=== PATIENT | male | born 1945 | race Caucasian/White ===

== ENCOUNTER 2016-07-12 13:52 | Inpatient (IN) | payer OTHER ==
--- NOTE | 2016-07-12 14:53 | PDOC ---
History of Present Illness - General History Source: Patient Exam Limitations: No Limitations - History of Present Illness Initial Comments: 07/12/16 16:00 The patient is a 71 year old male, with a significant past medical history of CAD, Coarse AFIB, chronic ischemic heart disease, cardiomyopathy, fatty liver, COPD (emphysema), diabetes and HLD, who presents to the emergency department with shortness of breath. He states that his shortness of breath does not feel like his past COPD exacerbations. He also reports that he has noticed bilateral lower extremity swelling and has not taken his Lasix today The patient denies chest pain, headache and dizziness. Denies fever, chills, nausea, vomit, diarrhea and constipation. Denies dysuria, frequency, urgency and hematuria. Allergies: None Past surgical history: bilateral knee surgery, right knee 1974, left knee 1979 Social history: Former smoker <Jean-Claude Carr - Last Filed: 07/12/16 16:59> <Daphne Briceño - Last Filed: 07/13/16 09:04> - General Chief Complaint: Shortness of Breath Stated Complaint: SOB Time Seen by Provider: 07/12/16 14:25 Past History <Jean-Claude Carr - Last Filed: 07/12/16 16:59> - Past Medical History Anemia: No Cardiac Disorders: Yes (CAD, COARSE A.FIBRILATION, CHRONIC ISCHEMIC HEART DISEASE, CARDIOMYOPATHY) COPD: Yes (EMPHYSEMA) Diabetes: Yes (IDDM) Hypercholesterolemia: Yes Liver Disease: Yes (FATTY LIVER) Suicide Attempt (Hx): No - Surgical History Orthopedic Surgery: Yes (bilateral knee surgery 1974 left knee 1979) - Family Disease History Family Disease History: Heart Disease: Father - Immunization History Immunization Up to Date: Yes - Psycho/Social/Smoking Cessation Hx Anxiety: No Suicidal Ideation: No Smoking Status: Yes (QUIT 2011) Smoking History: Former smoker Have you smoked in the past 12 months: No Number of Cigarettes Smoked Daily: 0 If you are a former smoker, when did you quit?: 6 years ago Cigars Per Day: 0 Information on smoking cessation initiated: No Hx Alcohol Use: No Drug/Substance Use Hx: No Substance Use Type: None Hx Substance Use Treatment: No <Daphne Briceño - Last Filed: 07/13/16 09:04> - Past Medical History Allergies/Adverse Reactions: Allergies Allergy/AdvReac Type Severity Reaction Status Date / Time No Known Allergies Allergy Verified 07/12/16 14:04 Home Medications: Ambulatory Orders Atorvastatin Ca [Lipitor] 10 mg PO HS tablet 08/23/15 Gabapentin [Neurontin -] 100 mg PO BID capsule 08/23/15 Insulin Detemir [Levemir Flextouch] 23 unit SQ BID 11/26/15 Tamsulosin HCl 0.4 mg PO DAILY 12/11/15 Apixaban [Eliquis] 5 mg PO BID 02/28/16 Albuterol 0.083% Nebulizer Cielo [Ventolin 0.083% Nebulizer Soln -] 1 amp NEB PRN 06/25/16 Levalbuterol Tartrate [Xopenex Hfa] 2 puff IH PRN 06/25/16 Budesonide/Formeterol Fumarate [SYMBICORT 160/4.5mcg -] 2 puff IH BID inhaler 06/30/16 Furosemide [Lasix] 40 mg PO BID #60 tablet 06/30/16 Prednisone [Deltasone -] 10 mg PO DAILY #5 tablet 06/30/16 Verapamil HCl ER [Calan Sr -] 360 mg PO DAILY tablet.er 06/30/16 Review of Systems - Review of Systems Able to Perform ROS?: Yes Comments:: 07/12/16 15:59 GENERAL/CONSTITUTIONAL: No fever or chills. No weakness. HEAD, EYES, EARS, NOSE AND THROAT: No change in vision. No ear pain or discharge. No sore throat. CARDIOVASCULAR: +Shortness of breath. No chest pain RESPIRATORY: No cough, wheezing, or hemoptysis. GASTROINTESTINAL: No nausea, vomiting, diarrhea or constipation. GENITOURINARY: No dysuria, frequency, or change in urination. EXTREMITIES: +Bilateral lower extremity swelling MUSCULOSKELETAL: No joint or muscle swelling or pain. No neck or back pain. SKIN: No rash NEUROLOGIC: No headache, vertigo, loss of consciousness, or change in strength/ sensation. ENDOCRINE: No increased thirst. No abnormal weight change HEMATOLOGIC/LYMPHATIC: No anemia, easy bleeding, or history of blood clots. ALLERGIC/IMMUNOLOGIC: No hives or skin allergy. <Jean-Claude Carr - Last Filed: 07/12/16 16:59> *Physical Exam - Vital Signs Last Vital Signs Temp Pulse Resp BP Pulse Ox 97.7 F 84 22 129/84 96 07/12/16 14:01 07/12/16 14:01 07/12/16 14:01 07/12/16 14:01 07/12/16 14:01 <Jean-Claude Carr - Last Filed: 07/12/16 16:59> - Vital Signs Last Vital Signs Temp Pulse Resp BP Pulse Ox 97.7 F 84 22 129/84 96 07/12/16 14:01 07/12/16 14:01 07/12/16 14:01 07/12/16 14:01 07/12/16 14:01 - Physical Exam Comments: GENERAL: Awake, alert, and fully oriented, in no acute distress HEAD: No signs of trauma EYES: PERRLA, EOMI, sclera anicteric, conjunctiva clear ENT: Auricles normal inspection, hearing grossly normal, nares patent, oropharynx clear without exudates. Moist mucosa NECK: Normal ROM, supple, no lymphadenopathy, JVD, or masses LUNGS: Good air entry B/L, with clear breath sounds. No wheezes, and no crackles HEART: Regular rate and rhythm, normal S1 and S2, no murmurs, rubs or gallops ABDOMEN: Soft, nontender, normoactive bowel sounds. No guarding, no rebound. No masses EXTREMITIES: Normal range of motion, 3+ pitting edema BLE. No clubbing or cyanosis. No cords, erythema. NEUROLOGICAL: Cranial nerves II through XII grossly intact. Normal speech, normal gait. SKIN: Warm, Dry, normal turgor, no rashes or lesions noted. <Daphne Briceño - Last Filed: 07/13/16 09:04> Heart Score/ECG Review - ECG Impressions Comment:: EKG read 14:09- afib with RVR, ventricular rate 103 <Daphne Briceño - Last Filed: 07/13/16 09:04> ED Treatment Course - LABORATORY CBC & Chemistry Diagram: 07/12/16 15:25 07/12/16 15:53 - ADDITIONAL ORDERS Additional order review: Laboratory Results 07/12/16 15:25 Sodium Cancelled Potassium Cancelled Chloride Cancelled Carbon Dioxide Cancelled Anion Gap Cancelled BUN Cancelled Creatinine Cancelled Creat Clearance w eGFR Cancelled Random Glucose Cancelled Calcium Cancelled Total Bilirubin Cancelled AST Cancelled ALT Cancelled Alkaline Phosphatase Cancelled Creatine Kinase Cancelled Troponin I Cancelled B-Natriuretic Peptide Cancelled Total Protein Cancelled Albumin Cancelled 07/12/16 15:25 RBC 4.84 MCV 90.9 MCHC 31.9 L RDW 14.7 MPV 8.8 Neutrophils % 92.1 H D Lymphocytes % 4.6 L D Monocytes % 2.8 L Eosinophils % 0.1 D Basophils % 0.4 <Jean-Claude Carr - Last Filed: 07/12/16 16:59> - LABORATORY CBC & Chemistry Diagram: 07/13/16 05:35 07/13/16 05:35 <Daphne Briceño - Last Filed: 07/13/16 09:04> Medical Decision Making - Medical Decision Making 07/12/16 16:49 Dr. Brothers was called regarding the patient at 4:49pm Dr. Brothers was consulted regarding the patient at 4:52pm [phone] <Jean-Claude Carr - Last Filed: 07/12/16 16:59> *DC/Admit/Observation/Transfer - Attestations Scribe Attestion: 07/12/16 15:59 Documentation prepared by Jean-Claude Carr, acting as medical collections specialist for Daphne Briceño MD. <Jean-Claude Carr - Last Filed: 07/12/16 16:59> - Discharge Dispostion Admit: Yes <Daphne Briceño - Last Filed: 07/13/16 09:04> Diagnosis at time of Disposition: COPD (chronic obstructive pulmonary disease) Qualifiers: COPD type: unspecified COPD Qualified Code(s): J44.9 - Chronic obstructive pulmonary disease, unspecified Acute CHF Qualifiers: Congestive heart failure type: unspecified congestive heart failure type Qualified Code(s): I50.9 - Heart failure, unspecified Atrial fibrillation Qualifiers: Atrial fibrillation type: unspecified Qualified Code(s): I48.91 - Unspecified atrial fibrillation - Discharge Dispostion Condition at time of disposition: Stable - Referrals
[2016-07-12 15:32] LABS: BASOPHIL 0.4 % (0-2.0); EOSINOPHIL 0.1 % (0-4.5); MCHC 31.9 g/dl (32.0-35.9); MEAN CELL VOLUME 90.9 fl (80-96); MEAN PLT VOLUME 8.8 fl (7.5-11.1); NEUTROPHILS 92.1 % (42.8-82.8); PLATELET COUNT 278 K/MM3 (134-434); RDW 14.7 % (11.9-15.9); WHITE BLOOD COUNT 14.8 K/mm3 (4.0-10.0)
[2016-07-12] MEDS: ALBUTEROL SO4 2.5/IPRATROPIUM 0.5 INH SOL 3 ML VIAL.NEB. NEB SCH ×4 (15:45→16:30)
[2016-07-12 16:28] LABS: ALBUMIN 3.7 g/dl (3.4-5.0); ANION GAP 8 (8-16); BILIRUBIN,TOTAL 0.3 mg/dL (0.2-1.0); CALCIUM 9.6 mg/dL (8.5-10.1); CO2 29 mmol/L (21-32); CREATININE 1.1 mg/dL (0.7-1.3); GLUCOSE,RANDOM 195 mg/dL (74-106); SGOT/AST 15 U/L (15-37); SGPT/ALT 27 U/L (12-78); TOT PROT 6.9 g/dl (6.4-8.2)
[2016-07-12 16:30] LABS: ALK PHOS 90 U/L (45-117); TROPONIN I < 0.02 ng/ml (0.00-0.05)
[2016-07-12] MEDS ORDERED: methylPREDNISolone NA SUCC 125 MG/2 ML VIAL IVPB ONE (16:50)
[2016-07-12] MEDS ORDERED: FUROSEMIDE 40 MG/4 ML INJECTABLE VIAL IVPUSH ONE (16:57)
[2016-07-12] MEDS ORDERED: methylPREDNISolone NA SUCC 125 MG/2 ML VIAL ONE (16:57)
[2016-07-12] MEDS ORDERED: dilTIAZem HCL 50 MG/10 ML - 10 ML VIAL IVPUSH ONE (16:57)
[2016-07-12] MEDS ORDERED: FUROSEMIDE 40 MG/4 ML INJECTABLE VIAL ONE (17:29)
[2016-07-12] MEDS ORDERED: dilTIAZem HCL 125 MG/25 ML - 25 ML VIAL ONE (17:29)
[2016-07-12] MEDS: BUDESONIDE/FORMETEROL FUMARATE 160/4.5 mcg INHALER IH SCH (21:59)
[2016-07-12] MEDS: APIXABAN 5 MG TABLET PO SCH (21:59)
[2016-07-12] MEDS: INSULIN SLIDING SCALE (NOVOLOG) 1 VIAL SQ SCH (22:00)
[2016-07-12] MEDS: ATORVASTATIN CA 10 MG TABLET (FP) PO SCH (22:00)
[2016-07-12] MEDS: GABAPENTIN 100 MG CAPSULE (FP) PO SCH (22:00)
[2016-07-12] MEDS: methylPREDNISolone NA SUCC 125 MG/2 ML VIAL IVPB SCH (22:03)
[2016-07-13 00:05] VITALS: BMI 48.2
[2016-07-13] MEDS: INSULIN DETEMIR 100 UNITS/ML MDV SQ SCH ×2 (06:22→17:00)
[2016-07-13] MEDS: methylPREDNISolone NA SUCC 125 MG/2 ML VIAL IVPB SCH (06:22)
[2016-07-13] MEDS: INSULIN SLIDING SCALE (NOVOLOG) 1 VIAL SQ SCH ×4 (06:22→21:49)
[2016-07-13] MEDS: GABAPENTIN 100 MG CAPSULE (FP) PO SCH ×3 (06:22→21:47)
[2016-07-13 07:29] LABS: MCH 30.2 pg (25.7-33.7); MCHC 32.8 g/dl (32.0-35.9); MEAN PLT VOLUME 9.1 fl (7.5-11.1); PLATELET COUNT 241 K/MM3 (134-434); RDW 14.4 % (11.9-15.9); WHITE BLOOD COUNT 15.3 K/mm3 (4.0-10.0)
[2016-07-13 08:41] LABS: ALBUMIN 3.4 g/dl (3.4-5.0); ANION GAP 9 (8-16); BILIRUBIN,TOTAL 0.3 mg/dL (0.2-1.0); CO2 28 mmol/L (21-32); GLUCOSE,RANDOM 209 mg/dL (74-106); SGOT/AST 9 U/L (15-37); SGPT/ALT 24 U/L (12-78); TOT PROT 6.3 g/dl (6.4-8.2)
[2016-07-13 08:42] LABS: ALK PHOS 85 U/L (45-117); CALCIUM 9.4 mg/dL (8.5-10.1)
--- NOTE | 2016-07-13 09:48 | EKG ---
Test Reason : Blood Pressure : / mmHG Vent. Rate : 103 BPM Atrial Rate : 111 BPM P-R Int : 000 ms QRS Dur : 092 ms QT Int : 326 ms P-R-T Axes : 000 068 061 degrees QTc Int : 427 ms ATRIAL FIBRILLATION WITH RAPID VENTRICULAR RESPONSE POSSIBLE ANTERIOR INFARCT , AGE UNDETERMINED ABNORMAL ECG WHEN COMPARED WITH ECG OF 25-JUN-2016 16:56, NO SIGNIFICANT CHANGE WAS FOUND Confirmed by DIA CALIXTO MD ([id number]) on 07/13/2016 9:48:08 AM Referred By: Overread By: DIA CALIXTO MD
[2016-07-13] MEDS ORDERED: FUROSEMIDE 40 MG/4 ML INJECTABLE VIAL IVPB SCH (10:00)
[2016-07-13] MEDS ORDERED: PT OWN MED DRAWER 7, Y5N ONE (12:04)
[2016-07-13] MEDS: BUDESONIDE/FORMETEROL FUMARATE 160/4.5 mcg INHALER IH SCH ×2 (12:07→21:51)
[2016-07-13] MEDS: TAMSULOSIN HCL 0.4 MG CAP.ER.24H (FP) PO SCH (12:07)
[2016-07-13] MEDS: APIXABAN 5 MG TABLET PO SCH ×2 (12:07→21:47)
--- NOTE | 2016-07-13 12:20 | PN ---
Progress Note (short form) - Note Progress Note: PULMONARY CONSULTATION DICTATED 07/13/16 IMP ACUTE ON CHRONIC HYPOXEMIC RESPIRATORY FAILURE DECOMPENSATED CHF COPD ON O2 AFIB DM LUCY HTN PLAN IV LASIX INHALED BRONCHODILATORS STEROID TAPED DAILY WTS F/U CHEST X-RAY BIPAP AT NIGHT AND PRN MONITOR BLOOD SUGARS DR STACK Problem List - Problems (1) Acute CHF Code(s): I50.9 - HEART FAILURE, UNSPECIFIED Qualifiers: Congestive heart failure type: unspecified congestive heart failure type Qualified Code(s): I50.9 - Heart failure, unspecified (2) Atrial fibrillation Code(s): I48.91 - UNSPECIFIED ATRIAL FIBRILLATION Qualifiers: Atrial fibrillation type: unspecified Qualified Code(s): I48.91 - Unspecified atrial fibrillation (3) COPD (chronic obstructive pulmonary disease) Code(s): J44.9 - CHRONIC OBSTRUCTIVE PULMONARY DISEASE, UNSPECIFIED Qualifiers : COPD type: unspecified COPD Qualified Code(s): J44.9 - Chronic obstructive pulmonary disease, unspecified (4) Diabetes mellitus Code(s): E11.9 - TYPE 2 DIABETES MELLITUS WITHOUT COMPLICATIONS (5) Acute exacerbation of chronic obstructive pulmonary disease (COPD) Code(s): J44.1 - CHRONIC OBSTRUCTIVE PULMONARY DISEASE W (ACUTE) EXACERBATION (6) Dyspnea Code(s): R06.00 - DYSPNEA, UNSPECIFIED Qualifiers: (7) Edema Code(s): R60.9 - EDEMA, UNSPECIFIED (8) HTN (hypertension) Code(s): I10 - ESSENTIAL (PRIMARY) HYPERTENSION (9) Hypoxemia Code(s): R09.02 - HYPOXEMIA (10) Morbid obesity Code(s): E66.01 - MORBID (SEVERE) OBESITY DUE TO EXCESS CALORIES (11) Obstructive sleep apnea Code(s): G47.33 - OBSTRUCTIVE SLEEP APNEA (ADULT) (PEDIATRIC) (12) Acute on chronic respiratory failure with hypoxemia Code(s): J96.21 - ACUTE AND CHRONIC RESPIRATORY FAILURE WITH HYPOXIA
--- NOTE | 2016-07-13 12:34 | PN ---
Progress Note (short form) - Note Progress Note: CC: SOB 71 yo male with h/o AFib s/p prior DCCV 12/2015 to SR on AC, HTN, HL, morbid obesity, NATHANIEL on bipap, severe COPD, here with sob. Diuresed with lasix 80 mg IV BID on last admission then transitioned to torsemide 40 mg daily. D/c meds do not include diuretics, but patient states he was taking furosemide not torsemide 40 mg at home. D/c weight 339 lbs. Now with worsening sob/oliveira, LE edema. Is now requiring bipap/neb/o2 with minimal ambulation. + progressive LE edema, abdominal distension. + progressive weight gain. + chronic orthopnea. Here, has received steroids and 40 mg IV lasix. no cp, palps, dizziness, claudication, bleeding or transient neurologic symptoms No f/c/s, n/v/d, h/a, rashes, no congestion, myalgias. + cough, PMH:per hpi past surg hx: Tonsillectomy Social hx: Former smoker fam hx: father with CVA ros: per hpi Ambulatory Orders Atorvastatin Ca [Lipitor] 10 mg PO HS tablet 08/23/15 Gabapentin [Neurontin -] 100 mg PO BID capsule 08/23/15 Insulin Detemir [Levemir Flextouch] 23 unit SQ BID 11/26/15 Tamsulosin HCl 0.4 mg PO DAILY 12/11/15 Apixaban [Eliquis] 5 mg PO BID 02/28/16 Albuterol 0.083% Nebulizer Cielo [Ventolin 0.083% Nebulizer Soln -] 1 amp NEB PRN 06/25/16 Levalbuterol Tartrate [Xopenex Hfa] 2 puff IH PRN 06/25/16 Budesonide/Formeterol Fumarate [SYMBICORT 160/4.5mcg -] 2 puff IH BID inhaler 06/30/16 Furosemide [Lasix] 40 mg PO BID #60 tablet 06/30/16 Prednisone [Deltasone -] 10 mg PO DAILY #5 tablet 06/30/16 Verapamil HCl ER [Calan Sr -] 360 mg PO DAILY tablet.er 06/30/16 Current Medications Acetaminophen (Tylenol -) 650 mg PO Q6H PRN PRN Reason: FEVER OR PAIN Apixaban (Eliquis -) 5 mg PO BID [facility] Last Admin: 07/13/16 12:07 Dose: 5 mg Atorvastatin Calcium (Lipitor -) 10 mg PO HS [facility] Last Admin: 07/12/16 22:00 Dose: 10 mg Budesonide/Formoterol Fumarate (Symbicort 160/4.5mcg -) 2 puff IH BID [facility] Last Admin: 07/13/16 12:07 Dose: 2 puff Furosemide (Lasix Injection -) 40 mg IVPB DAILY [facility] Last Admin: 07/13/16 12:07 Dose: 40 mg Gabapentin (Neurontin -) 100 mg PO TID [facility] Last Admin: 07/13/16 06:22 Dose: 100 mg Insulin Aspart (Novolog Vial Sliding Scale -) 1 vial SQ [facility] PRN Reason: Protocol Last Admin: 07/13/16 12:07 Dose: 4 units Insulin Detemir (Levemir Vial) 23 units SQ BIDI [facility] Last Admin: 07/13/16 06:22 Dose: 23 units Methylprednisolone Sodium Succinate (Solu-Medrol -) 40 mg IVPB TID [facility] Tamsulosin HCl (Flomax -) 0.4 mg PO DAILY@0830 [facility] Last Admin: 07/13/16 12:07 Dose: 0.4 mg Verapamil HCl (Calan Sr -) 360 mg PO DAILY [facility] Vital Signs - 24 hr 07/12/16 07/12/16 07/12/16 14:01 18:00 19:26 Temperature 97.7 F Pulse Rate 84 Pulse Rate [ 88 85 Right Radial] Respiratory 22 18 18 Rate Blood Pressure 129/84 Blood Pressure 127/82 123/74 [Left Arm] O2 Sat by Pulse 96 95 100 Oximetry (%) 07/12/16 07/13/16 07/13/16 23:00 00:09 02:25 Temperature 97.5 F L 97.8 F Pulse Rate 98 H 98 H Pulse Rate [ Right Radial] Respiratory 20 21 Rate Blood Pressure 132/75 105/71 Blood Pressure [Left Arm] O2 Sat by Pulse 96 97 Oximetry (%) 07/13/16 07/13/16 06:00 09:55 Temperature Pulse Rate 94 H 89 Pulse Rate [ Right Radial] Respiratory 20 Rate Blood Pressure 115/64 Blood Pressure [Left Arm] O2 Sat by Pulse 94 L Oximetry (%) Intake & Output 07/11/16 07/12/16 07/13/16 07/14/16 07:59 07:59 07:59 07:59 Intake Total 50 Output Total 800 Balance -750 Weight 345 lb 6 oz NAD, calm JVD difficult to assess due to size, neck supple diminished BS, trace crackles/wheezes, nl effort Irregularly, irregular nl s1, s2 no m/r/g + bs soft obese nt nd ext with trace edema. no cyanosis or clubbing + dp/pt no jaundice, diaphoresis. CBC, BMP 07/13/16 05:35 07/13/16 05:35 Laboratory Tests 06/25/16 07/12/16 07/13/16 17:00 15:53 05:35 Troponin I < 0.02 B-Natriuretic Peptide 143.23 H 280.45 H Albumin 3.4 EKG: AFib, vr 103 bpm. No ischemic changes. tele: afib, VR 100's CXR: large heart, prominent central markings LIANNE 12/24 (at DCCV): low-nl LVEF (? due to afib); mild RV hypo; mild AI Echo 08/2015: tds, nl lv/rv, no sig valve path mibi 12/2012: small posterior ischemia vs artifact, nl lvef, no tid 10/2015 CT scan negative for PE 71 yo male with h/o AFib s/p prior DCCV 12/2015 to SR on AC, HTN, HL, PVCs with palpitations, morbid obesity, NATHANIEL on bipap, severe COPD, here with sob. sob, severe COPD on home O2: - Concern for contribution from acute diastolic or right heart failure exacerbation in setting of inappropriate outpatient diuresis (furosemide instead of torsemide and at lower dose). Prior d/c weights 318 lbs and then 337 lbs in Nov (was still volume up on discharge), most recently 339 lbs. Would increase diuretic dose to 80 mg IV BID. - daily standing weights, strict I/O, BMP -no signs of acs -copd/nathaniel tx per pmd/pulm - Consider repeat echo as outpatient once diuresed paroxysmal AF/flutter -new dx 2015--req'd amio for HR control (now off) and s/p successful DCCV 12/24 -cont eliquis for AC, verapamil for HR control. In past HR's have slowed and has reverted to SR once respiratory status stabilizes. hld: -continue statin htn: -stable on current meds. ?cad: -pt had borderline positive mibi in 2013 -never had angina sx's -CE's neg here x 1. EKG without ischemic changes. -continue medical management with statin, AC
--- NOTE | 2016-07-13 13:59 | CONS ---
DATE OF CONSULTATION: 07/13/2016 REFERRING PHYSICIAN: Ayla Brothers MD HISTORY: The patient is a 71-year-old male known to me from previous hospitalization who had office or follow up who has advanced COPD on home O2, cardiomyopathy, obstructive sleep apnea on BiPAP, atrial fibrillation, hypertension, hyperlipidemia, history of tonsillectomy, history of tobacco use quit. Patient is chronically steroid dependent. Pt recently hospitalized at [facility] secondary to decompensated congestive heart failure. Readmitted on July 12 with complaint of increasing shortness of breath, lower extremity edema. The patient states he was doing relatively well until yesterday. He woke up in the morning feeling okay. He said he started over the course of the day started noticed increasing lower extremity edema. Started developing chest tightness and shortness of breath. He denied any wheezing. He did have a dry, nonproductive cough. He presented to the emergency room with the above. In the ER he was felt to have possible CHF exacerbation as well as COPD. He was placed on Lasix and had bronchodilator and transferred to medical telemetry unit for further monitoring. He denies any nausea, vomiting, or diaphoresis. He denies any fever or chills. He denies hemoptysis. There is no history of DVT or pulmonary emboli in the past. He has a history of multiple hospitalizations secondary to decompensated CHF as well as COPD. PAST MEDICAL HISTORY: Includes ASHD, CHF, atrial fibrillation, cardiomyopathy, fatty liver, COPD advanced on home O2, diabetes, hyperlipidemia, and morbid obesity. PAST SURGICAL HISTORY: Includes bilateral knee surgery of right knee 1974 and left knee 1979. SOCIAL HISTORY: History of tobacco use. Quit a couple of years ago. No occupational exposures. REVIEW OF SYSTEMS: Positive orthopnea. Positive dyspnea. Positive chest tightness. Positive mild cough nonproductive cough. No chest pain, no palpitations, no fevers, no chills, no hemoptysis. Positive lower extremity edema. MEDICATIONS: Include Symbicort 160/4.5, Solu-Medrol 80 t.i.d., Flomax, Tylenol, Eliquis, Neurontin, Calan, Lipitor, Norvasc, Levemir, and Lasix. PHYSICAL EXAMINATION: General: The patient is a well-developed, well-nourished male awake and alert currently in no acute distress. Vital Signs: He is currently afebrile. Blood pressure is 115/64, respiratory rate is 20, O2 saturation 94% on 2 L. HEENT: Normocephalic and atraumatic. Neck: Supple. Heart: Irregularly irregular with normal S1, S2. Chest: A few bibasilar crackles. Abdomen: Soft. Bowel sounds positive. Extremities: Bilateral lower extremity edema left greater than right. LABORATORIES: WBC 15.3, hemoglobin 13.2, hematocrit 40.3, platelet count 241, 000, INR 1.33. Chemistries: BUN 22, creatinine 1. On the chest x-ray, there is cardiomegaly with mild pulmonary venous congestion. IMPRESSION: 1. Decompensated congestive heart failure. 2. Advanced chronic obstructive pulmonary disease with exacerbation. 3. Atrial fibrillation. 4. Cardiomyopathy. 5. Diabetes mellitus. 6. Hyperlipidemia. PLAN: IV Lasix, inhaled bronchodilators, supplemental O2, short course of steroids, daily weights, follow up chest x-ray, continue anticoagulation, glycemic monitor blood sugars. TIFFANY STACK M.D. [id number] MTDD
[2016-07-13] MEDS: VERAPAMIL HCL 120 MG E.R. TABLET PO SCH ×2 (15:00→21:51)
--- NOTE | 2016-07-13 15:56 | PN ---
Progress Note (short form) - Note Progress Note: ID Consult dictated Acute exacerbation COPD Leukocytosis likely steroid induced Possible tracheobronchitis Obtain BC Influenza screen Legionella/ pneumococcal ag Sputum c/s Empiric zithromax Corticosteroids/ bronchodilators
--- NOTE | 2016-07-13 16:02 | HP ---
Admitting History and Physical - Primary Care Physician PCP: Mars Brothers - Admission Chief Complaint: DYSPNEA History of Present Illness: ACUTE ON CHRONIC DECOMPENSATED CHF WITH ACUTE ON CHRONIC COPD History Source: Patient - Past Medical History Cardiovascular: Yes: AFIB, HTN, Hyperlipdemia Pulmonary: Yes: COPD, O2 Dependent, Sleep Apnea Endocrine: Yes: Other (MORBIDLY OBESE) - Past Surgical History Past Surgical History: Yes: Tonsillectomy - Smoking History Smoking history: Former smoker Have you smoked in the past 12 months: No Aproximately how many cigarettes per day: 0 If you are a former smoker, when did you quit?: 6 years ago - Alcohol/Substance Use Hx Alcohol Use: No - Social History History of Recent Travel: No Home Medications - Allergies Allergies/Adverse Reactions: Allergies Allergy/AdvReac Type Severity Reaction Status Date / Time No Known Allergies Allergy Verified 07/12/16 14:04 - Home Medications Home Medications: Ambulatory Orders Atorvastatin Ca [Lipitor] 10 mg PO HS tablet 08/23/15 Gabapentin [Neurontin -] 100 mg PO BID capsule 08/23/15 Insulin Detemir [Levemir Flextouch] 23 unit SQ BID 11/26/15 Tamsulosin HCl 0.4 mg PO DAILY 12/11/15 Apixaban [Eliquis] 5 mg PO BID 02/28/16 Albuterol 0.083% Nebulizer Cielo [Ventolin 0.083% Nebulizer Soln -] 1 amp NEB PRN 06/25/16 Levalbuterol Tartrate [Xopenex Hfa] 2 puff IH PRN 06/25/16 Budesonide/Formeterol Fumarate [SYMBICORT 160/4.5mcg -] 2 puff IH BID inhaler 06/30/16 Furosemide [Lasix] 40 mg PO BID #60 tablet 06/30/16 Prednisone [Deltasone -] 10 mg PO DAILY #5 tablet 06/30/16 Verapamil HCl ER [Calan Sr -] 360 mg PO DAILY tablet.er 06/30/16 Review of Systems - Review of Systems Constitutional: reports: Weakness Eyes: reports: No Symptoms HENT: reports: No Symptoms Neck: reports: No Symptoms Cardiovascular: reports: Shortness of Breath Respiratory: reports: Orthopnea, Snoring, SOB, SOB on Exertion Gastrointestinal: reports: No Symptoms Genitourinary: reports: No Symptoms Musculoskeletal: reports: No Symptoms Integumentary: reports: No Symptoms Neurological: reports: No Symptoms Endocrine: reports: No Symptoms Hematology/Lymphatic: reports: No Symptoms Psychiatric: reports: No Symptoms Physical Examination Vital Signs: Vital Signs Temperature 97.8 F 07/13/16 02:25 Pulse Rate 89 07/13/16 09:55 Respiratory Rate 20 07/13/16 06:00 Blood Pressure 115/64 07/13/16 06:00 O2 Sat by Pulse Oximetry (%) 94 L 07/13/16 09:55 Constitutional: Yes: Moderate Distress Eyes: Yes: WNL HENT: Yes: WNL Neck: Yes: WNL Cardiovascular: Yes: Pulse Irregular Respiratory: Yes: On Venti-Mask, Poor Air Entry, Rales, SOB, SOB on Exertion Gastrointestinal: Yes: WNL Renal/: Yes: WNL Musculoskeletal: Yes: Muscle Weakness Edema: Yes Peripheral Pulses WNL: Yes Integumentary: Yes: WNL, Venous Stasis Changes Wound/Incision: Yes: Clean/Dry Neurological: Yes: WNL ...Motor Strength: WNL Psychiatric: Yes: WNL Labs: CBC, BMP 07/13/16 05:35 07/13/16 05:35 Imaging - Results Chest X-ray: Report Reviewed Problem List - Problems (1) Acute CHF Code(s): I50.9 - HEART FAILURE, UNSPECIFIED Qualifiers: Congestive heart failure type: unspecified congestive heart failure type Qualified Code(s): I50.9 - Heart failure, unspecified (2) Acute on chronic respiratory failure with hypoxemia Code(s): J96.21 - ACUTE AND CHRONIC RESPIRATORY FAILURE WITH HYPOXIA (3) Asthma Code(s): J45.909 - UNSPECIFIED ASTHMA, UNCOMPLICATED (4) Atrial fibrillation Code(s): I48.91 - UNSPECIFIED ATRIAL FIBRILLATION Qualifiers: Atrial fibrillation type: unspecified Qualified Code(s): I48.91 - Unspecified atrial fibrillation (5) COPD (chronic obstructive pulmonary disease) Code(s): J44.9 - CHRONIC OBSTRUCTIVE PULMONARY DISEASE, UNSPECIFIED Qualifiers : COPD type: unspecified COPD Qualified Code(s): J44.9 - Chronic obstructive pulmonary disease, unspecified (6) Diabetes mellitus Code(s): E11.9 - TYPE 2 DIABETES MELLITUS WITHOUT COMPLICATIONS (7) Morbid obesity Code(s): E66.01 - MORBID (SEVERE) OBESITY DUE TO EXCESS CALORIES (8) Obstructive sleep apnea Code(s): G47.33 - OBSTRUCTIVE SLEEP APNEA (ADULT) (PEDIATRIC) (9) Shortness of breath Code(s): R06.02 - SHORTNESS OF BREATH Assessment/Plan ACUTE ON CHRONIC CHF AND COPD IV LASIX, CARDIO EVAL O2 SUPPORT LABS AC PULM EVAL
[2016-07-13] MEDS ORDERED: AZITHROMYCIN IVPB 500 MG in DEXTROSE 5%-WATER - 250 ML IVPB SCH (16:15)
[2016-07-13] MEDS: FUROSEMIDE 40 MG/4 ML INJECTABLE VIAL IVPB SCH (17:00)
[2016-07-13] MEDS: methylPREDNISolone NA SUCC 40 MG/1 ML VIAL IVPB SCH ×2 (17:00→21:50)
--- NOTE | 2016-07-13 17:18 | CONS ---
DATE OF CONSULTATION: DATE OF DICTATION: 07/13/2016 The patient is a 71-year-old man, history of COPD with frequent exacerbations, now re-admitted with acute exacerbation of COPD. The patient was recently hospitalized at [facility] from June 25 through June 30 with an acute exacerbation. He now returns with increasing shortness of breath, cough productive of whitish sputum, and bilateral lower extremity edema. He was evaluated in the emergency room and he was admitted with a diagnosis of exacerbation of COPD. Chest x-ray was performed. No focal consolidation was identified. He was noted to have an elevated white blood cell count but no fever. The patient is chronically steroid dependent. He takes 20 mg of prednisone daily. He is also oxygen dependent. No recent antibiotic therapy. He denies any ill contacts. He did receive influenza and pneumococcal vaccines. No recent travel or significant pet exposure. Past medical history positive for COPD, oxygen and steroid dependent, coronary artery disease, atrial fibrillation, diabetes mellitus, hyperlipidemia, history of knee surgery. No known allergies. MEDICATIONS: Lipitor, Neurontin, insulin, albuterol, Symbicort, Lasix, verapamil. SOCIAL HISTORY: Former smoker. No history of alcohol abuse. SYSTEMS REVIEW: Neurologic: No loss of consciousness, seizure activity, focal weakness. Cardiac: Negative chest pain or palpitations. Respiratory: As per HPI. Gastrointestinal: Negative vomiting or diarrhea. Genitourinary: Negative for urinary tract infection. LABORATORY DATA: White count 15.3, 92 neutrophils, 4 lymphocytes, 2 monocytes. Hematocrit 44.0, platelet count 278. BUN 22, creatinine 1.0. Urine leukocyte esterase negative. PHYSICAL EXAMINATION: General: The patient is awake, alert. He is morbidly obese. Vital Signs: Temperature 97.7. Blood pressure 129/84. Pulse 84, regular. Respiration 22 per minute. Eyes: Sclerae anicteric. Heart Sounds: S1, S2. Lungs: Distant. No rhonchi, rales, or wheezing. Abdomen: Obese, soft, nontender. Extremities: Positive for edema. IMPRESSION: 1. Acute exacerbation of chronic obstructive pulmonary disease. 2. Leukocytosis, likely steroid induced. 3. Possible tracheobronchitis. Obtain blood cultures, influenza screen, urine Legionella antigen, and pneumococcal antigen, sputum culture, empiric Zithromax, corticosteroids, and bronchodilators. Will follow. Thank you for the kind referral. EVANS ARECHIGA M.D. [id number]
[2016-07-13] MEDS: ATORVASTATIN CA 10 MG TABLET (FP) PO SCH (21:47)
[2016-07-13] MEDS: AZITHROMYCIN IVPB 500 MG/250 ML D5W PRE-DOCKED IVPB SCH (21:51)
[2016-07-14] MEDS: INSULIN DETEMIR 100 UNITS/ML MDV SQ SCH ×2 (06:47→17:50)
[2016-07-14] MEDS: FUROSEMIDE 40 MG/4 ML INJECTABLE VIAL IVPB SCH ×2 (06:48→13:12)
[2016-07-14] MEDS: GABAPENTIN 100 MG CAPSULE (FP) PO SCH ×3 (06:48→22:18)
[2016-07-14] MEDS: INSULIN SLIDING SCALE (NOVOLOG) 1 VIAL SQ SCH ×4 (06:48→22:18)
[2016-07-14] MEDS: methylPREDNISolone NA SUCC 40 MG/1 ML VIAL IVPB SCH (06:48)
[2016-07-14 08:04] LABS: CALCIUM 9.4 mg/dL (8.5-10.1); CREATININE 1.1 mg/dL (0.7-1.3); MAGNESIUM 2.2 mg/dL (1.8-2.4)
--- NOTE | 2016-07-14 10:19 | PN ---
Progress Note, Physician Chief Complaint: AWAKE ALERT BIPAP ON STATES "I FEEL BETTER TODAY" STILL RECEIVING IV LASIX FOR ACUTE CHF - Current Medication List Current Medications: Active Medications Acetaminophen (Tylenol -) 650 mg PO Q6H PRN PRN Reason: FEVER OR PAIN Apixaban (Eliquis -) 5 mg PO BID [facility] Last Admin: 07/13/16 21:47 Dose: 5 mg Atorvastatin Calcium (Lipitor -) 10 mg PO HS [facility] Last Admin: 07/13/16 21:47 Dose: 10 mg Azithromycin (Zithromax 500mg Ivpb (Pre-Docked)) 500 mg IVPB DAILY [facility] Last Admin: 07/13/16 21:51 Dose: 500 mg Budesonide/Formoterol Fumarate (Symbicort 160/4.5mcg -) 2 puff IH BID [facility] Last Admin: 07/13/16 21:51 Dose: 2 puff Furosemide (Lasix Injection -) 80 mg IVPB BID@0600,1400 [facility] Last Admin: 07/14/16 06:48 Dose: 80 mg Gabapentin (Neurontin -) 100 mg PO TID [facility] Last Admin: 07/14/16 06:48 Dose: 100 mg Insulin Aspart (Novolog Vial Sliding Scale -) 1 vial SQ ACHS [facility] PRN Reason: Protocol Last Admin: 07/14/16 06:48 Dose: 4 units Insulin Detemir (Levemir Vial) 23 units SQ BIDI [facility] Last Admin: 07/14/16 06:47 Dose: 23 units Methylprednisolone Sodium Succinate (Solu-Medrol -) 40 mg IVPB TID [facility] Last Admin: 07/14/16 06:48 Dose: 40 mg Tamsulosin HCl (Flomax -) 0.4 mg PO DAILY@0830 [facility] Last Admin: 07/13/16 12:07 Dose: 0.4 mg Verapamil HCl (Calan Sr -) 360 mg PO DAILY [facility] Last Admin: 07/13/16 21:51 Dose: 360 mg - Objective Vital Signs: Vital Signs Temperature 98.1 F 07/14/16 01:59 Pulse Rate 89 07/14/16 01:59 Respiratory Rate 20 07/14/16 01:59 Blood Pressure 106/58 07/14/16 01:59 O2 Sat by Pulse Oximetry (%) 92 L 07/13/16 21:00 Constitutional: Yes: Mild Distress Eyes: Yes: WNL HENT: Yes: WNL Neck: Yes: WNL Cardiovascular: Yes: Pulse Irregular Respiratory: Yes: WNL, On BiPap, Rhonchi, SOB Gastrointestinal: Yes: WNL Genitourinary: Yes: WNL Musculoskeletal: Yes: WNL Extremities: Yes: WNL Edema: Yes Edema: LLE: 1+, RLE: 1+ Peripheral Pulses WNL: Yes Integumentary: Yes: Erythema, Venous Stasis Changes Wound/Incision: Yes: Clean/Dry Neurological: Yes: WNL ...Motor Strength: WNL Psychiatric: Yes: WNL Labs: CBC, BMP 07/13/16 05:35 07/14/16 05:35 Problem List - Problems (1) Acute CHF Code(s): I50.9 - HEART FAILURE, UNSPECIFIED Qualifiers: Congestive heart failure type: unspecified congestive heart failure type Qualified Code(s): I50.9 - Heart failure, unspecified (2) Acute on chronic respiratory failure with hypoxemia Code(s): J96.21 - ACUTE AND CHRONIC RESPIRATORY FAILURE WITH HYPOXIA (3) Asthma Code(s): J45.909 - UNSPECIFIED ASTHMA, UNCOMPLICATED (4) Atrial fibrillation Code(s): I48.91 - UNSPECIFIED ATRIAL FIBRILLATION Qualifiers: Atrial fibrillation type: unspecified Qualified Code(s): I48.91 - Unspecified atrial fibrillation (5) COPD (chronic obstructive pulmonary disease) Code(s): J44.9 - CHRONIC OBSTRUCTIVE PULMONARY DISEASE, UNSPECIFIED Qualifiers : COPD type: unspecified COPD Qualified Code(s): J44.9 - Chronic obstructive pulmonary disease, unspecified (6) Diabetes mellitus Code(s): E11.9 - TYPE 2 DIABETES MELLITUS WITHOUT COMPLICATIONS (7) Morbid obesity Code(s): E66.01 - MORBID (SEVERE) OBESITY DUE TO EXCESS CALORIES (8) Obstructive sleep apnea Code(s): G47.33 - OBSTRUCTIVE SLEEP APNEA (ADULT) (PEDIATRIC) (9) Shortness of breath Code(s): R06.02 - SHORTNESS OF BREATH Assessment/Plan ACUTE ON CHRONIC CHF AND COPD IV LASIX, CARDIO EVAL O2 SUPPORT LABS AC PULM EVAL DC PLANNING 07/15/16 STRICT DIET AND FLUID INTAKE MINIMIZED DISCUSSED WITH PATIENT OUTPATIENT PULMONARY REHAB
[2016-07-14] MEDS: TAMSULOSIN HCL 0.4 MG CAP.ER.24H (FP) PO SCH (10:45)
[2016-07-14] MEDS: BUDESONIDE/FORMETEROL FUMARATE 160/4.5 mcg INHALER IH SCH ×2 (10:45→22:18)
[2016-07-14] MEDS: APIXABAN 5 MG TABLET PO SCH ×2 (10:45→22:17)
[2016-07-14] MEDS: VERAPAMIL HCL 120 MG E.R. TABLET PO SCH (10:45)
[2016-07-14] MEDS: AZITHROMYCIN IVPB 500 MG/250 ML D5W PRE-DOCKED IVPB SCH (10:45)
--- NOTE | 2016-07-14 12:18 | PN ---
Progress Note (short form) - Note Progress Note: s: sob better, no chest pain palps dizzy o: Vital Signs Period Temp Pulse Resp BP Sys/Park Pulse Ox Last 24 Hr 97.5 F-98.1 F 89-101 19-20 106-125/58-97 92-98 NAD, calm JVD difficult to assess due to size, neck supple diminished BS, bl wheezes, nl effort Irregularly, irregular nl s1, s2 no m/r/g + bs soft obese nt nd ext with no le edema. no cyanosis or clubbing no jaundice, diaphoresis. Current Medications Generic Name Dose Route Start Last Admin Trade Name Freq PRN Reason Stop Dose Admin Acetaminophen 650 mg 07/12/16 18:02 Tylenol - PO Q6H PRN FEVER OR PAIN Apixaban 5 mg 07/12/16 22:00 07/14/16 10:45 Eliquis - PO 5 mg BID ARVIND Administration Atorvastatin Calcium 10 mg 07/12/16 22:00 07/13/16 21:47 Lipitor - PO 10 mg HS ARVIND Administration Azithromycin 500 mg 07/13/16 17:00 07/14/16 10:45 Zithromax 500mg Ivpb (Pre-Docked) IVPB 500 mg DAILY ARVIND Administration Budesonide/Formoterol Fumarate 2 puff 07/12/16 22:00 07/14/16 10:45 Symbicort 160/4.5mcg - IH 2 puff BID ARVIND Administration Furosemide 80 mg 07/13/16 14:54 07/14/16 06:48 Lasix Injection - IVPB 07/14/16 23:00 80 mg BID@0600,1400 ARVIND Administration Gabapentin 100 mg 07/12/16 22:00 07/14/16 06:48 Neurontin - PO 100 mg TID ARVIND Administration Insulin Aspart 1 vial 07/12/16 22:00 07/14/16 06:48 Novolog Vial Sliding Scale - SQ 4 units ACHS ARVIND Administration Protocol Insulin Detemir 23 units 07/13/16 07:00 07/14/16 06:47 Levemir Vial SQ 23 units BIDI ARVIND Administration Methylprednisolone Sodium Succinate 40 mg 07/13/16 14:00 07/14/16 06:48 Solu-Medrol - IVPB 40 mg TID ARVIND Administration Tamsulosin HCl 0.4 mg 07/13/16 08:30 07/14/16 10:45 Flomax - PO 0.4 mg DAILY@0830 ARVIND Administration Torsemide 40 mg 07/15/16 10:00 Demadex - PO DAILY ARVIND Verapamil HCl 360 mg 07/13/16 10:00 07/14/16 10:45 Calan Sr - PO 360 mg DAILY ARVIND Administration CBC, BMP 07/13/16 05:35 07/14/16 05:35 EKG: AFib, vr 103 bpm. No ischemic changes. tele: afib, VR controlled CXR: large heart, prominent central markings LIANNE 12/24 (at [facility]): low-nl LVEF (? due to afib); mild RV hypo; mild AI Echo 08/2015: tds, nl lv/rv, no sig valve path mibi 12/2012: small posterior ischemia vs artifact, nl lvef, no tid 10/2015 CT scan negative for PE a/p: 71 yo male with h/o AFib s/p prior DCCV 12/2015 to SR on AC, HTN, HL, PVCs with palpitations, morbid obesity, NATHANIEL on bipap, severe COPD, here with sob. sob, severe COPD on home O2: - symptoms and vol overload improving with steroids and iv lasix. plan is for likely dc tomorrow so will change to po torsemide 40 mg qd tomorrow with plans to cont this on dc - no signs of acs - copd/nathaniel tx per pmd/pulm - Consider repeat echo as outpatient once diuresed paroxysmal AF/flutter -new dx 2015--req'd amio for HR control (now off) and s/p successful DCCV 12/24 -cont eliquis for AC, verapamil for HR control. hld: -continue statin htn: -stable on current meds. ?cad: -pt had borderline positive mibi in 2012 -never had angina sx's -CE's neg here x 1. EKG without ischemic changes. -continue medical management with statin, AC
--- NOTE | 2016-07-14 12:22 | PN ---
Progress Note, Physician History of Present Illness: PULMONARY ALERT,FEELING BETTER,SOB IMPROVED,-CP - Current Medication List Current Medications: Active Medications Acetaminophen (Tylenol -) 650 mg PO Q6H PRN PRN Reason: FEVER OR PAIN Apixaban (Eliquis -) 5 mg PO BID [facility] Last Admin: 07/14/16 10:45 Dose: 5 mg Atorvastatin Calcium (Lipitor -) 10 mg PO HS [facility] Last Admin: 07/13/16 21:47 Dose: 10 mg Azithromycin (Zithromax 500mg Ivpb (Pre-Docked)) 500 mg IVPB DAILY [facility] Last Admin: 07/14/16 10:45 Dose: 500 mg Budesonide/Formoterol Fumarate (Symbicort 160/4.5mcg -) 2 puff IH BID [facility] Last Admin: 07/14/16 10:45 Dose: 2 puff Furosemide (Lasix Injection -) 80 mg IVPB BID@0600,1400 [facility] Stop: 07/14/16 23:00 Last Admin: 07/14/16 06:48 Dose: 80 mg Gabapentin (Neurontin -) 100 mg PO TID [facility] Last Admin: 07/14/16 06:48 Dose: 100 mg Insulin Aspart (Novolog Vial Sliding Scale -) 1 vial SQ ACHS [facility] PRN Reason: Protocol Last Admin: 07/14/16 06:48 Dose: 4 units Insulin Detemir (Levemir Vial) 23 units SQ BIDI [facility] Last Admin: 07/14/16 06:47 Dose: 23 units Methylprednisolone Sodium Succinate (Solu-Medrol -) 40 mg IVPB TID [facility] Last Admin: 07/14/16 06:48 Dose: 40 mg Tamsulosin HCl (Flomax -) 0.4 mg PO DAILY@0830 [facility] Last Admin: 07/14/16 10:45 Dose: 0.4 mg Verapamil HCl (Calan Sr -) 360 mg PO DAILY [facility] Last Admin: 07/14/16 10:45 Dose: 360 mg - Objective Vital Signs: Vital Signs Temperature 98.1 F 07/14/16 01:59 Pulse Rate 89 07/14/16 01:59 Respiratory Rate 20 07/14/16 01:59 Blood Pressure 106/58 07/14/16 01:59 O2 Sat by Pulse Oximetry (%) 98 07/14/16 11:53 Constitutional: Yes: Calm, Obese Eyes: Yes: WNL HENT: Yes: WNL Neck: Yes: WNL Cardiovascular: Yes: Pulse Irregular, S1, S2 Respiratory: Yes: Diminished Gastrointestinal: Yes: WNL Extremities: Yes: WNL Edema: Yes Labs: CBC, BMP 07/13/16 05:35 07/14/16 05:35 Problem List - Problems (1) Acute CHF Code(s): I50.9 - HEART FAILURE, UNSPECIFIED Qualifiers: Congestive heart failure type: unspecified congestive heart failure type Qualified Code(s): I50.9 - Heart failure, unspecified (2) Atrial fibrillation Code(s): I48.91 - UNSPECIFIED ATRIAL FIBRILLATION Qualifiers: Atrial fibrillation type: unspecified Qualified Code(s): I48.91 - Unspecified atrial fibrillation (3) COPD (chronic obstructive pulmonary disease) Code(s): J44.9 - CHRONIC OBSTRUCTIVE PULMONARY DISEASE, UNSPECIFIED Qualifiers : COPD type: unspecified COPD Qualified Code(s): J44.9 - Chronic obstructive pulmonary disease, unspecified (4) Diabetes mellitus Code(s): E11.9 - TYPE 2 DIABETES MELLITUS WITHOUT COMPLICATIONS (5) Acute exacerbation of chronic obstructive pulmonary disease (COPD) Code(s): J44.1 - CHRONIC OBSTRUCTIVE PULMONARY DISEASE W (ACUTE) EXACERBATION (6) Dyspnea Code(s): R06.00 - DYSPNEA, UNSPECIFIED Qualifiers: (7) Edema Code(s): R60.9 - EDEMA, UNSPECIFIED (8) HTN (hypertension) Code(s): I10 - ESSENTIAL (PRIMARY) HYPERTENSION (9) Hypoxemia Code(s): R09.02 - HYPOXEMIA (10) Morbid obesity Code(s): E66.01 - MORBID (SEVERE) OBESITY DUE TO EXCESS CALORIES (11) Obstructive sleep apnea Code(s): G47.33 - OBSTRUCTIVE SLEEP APNEA (ADULT) (PEDIATRIC) (12) Acute on chronic respiratory failure with hypoxemia Code(s): J96.21 - ACUTE AND CHRONIC RESPIRATORY FAILURE WITH HYPOXIA Assessment/Plan IMP ACUTE ON CHRONIC HYPOXEMIC RESPIRATORY FAILURE IMPROVING DECOMPENSATED CHF IMPROVING COPD ON O2 AFIB DM LUCY HTN PLAN IV LASIX INHALED BRONCHODILATORS STEROID TAPER DAILY WTS BIPAP AT NIGHT AND PRN MONITOR BLOOD SUGARS DR STACK Problem List - Problems (1) Acute CHF Code(s): I50.9 - HEART FAILURE, UNSPECIFIED Qualifiers: Congestive heart failure type: unspecified congestive heart failure type Qualified Code(s): I50.9 - Heart failure, unspecified (2) Atrial fibrillation Code(s): I48.91 - UNSPECIFIED ATRIAL FIBRILLATION Qualifiers: Atrial fibrillation type: unspecified Qualified Code(s): I48.91 - Unspecified atrial fibrillation (3) COPD (chronic obstructive pulmonary disease) Code(s): J44.9 - CHRONIC OBSTRUCTIVE PULMONARY DISEASE, UNSPECIFIED Qualifiers : COPD type: unspecified COPD Qualified Code(s): J44.9 - Chronic obstructive pulmonary disease, unspecified (4) Diabetes mellitus Code(s): E11.9 - TYPE 2 DIABETES MELLITUS WITHOUT COMPLICATIONS (5) Acute exacerbation of chronic obstructive pulmonary disease (COPD) Code(s): J44.1 - CHRONIC OBSTRUCTIVE PULMONARY DISEASE W (ACUTE) EXACERBATION (6) Dyspnea Code(s): R06.00 - DYSPNEA, UNSPECIFIED Qualifiers: (7) Edema Code(s): R60.9 - EDEMA, UNSPECIFIED (8) HTN (hypertension) Code(s): I10 - ESSENTIAL (PRIMARY) HYPERTENSION (9) Hypoxemia Code(s): R09.02 - HYPOXEMIA (10) Morbid obesity Code(s): E66.01 - MORBID (SEVERE) OBESITY DUE TO EXCESS CALORIES (11) Obstructive sleep apnea Code(s): G47.33 - OBSTRUCTIVE SLEEP APNEA (ADULT) (PEDIATRIC) (12) Acute on chronic respiratory failure with hypoxemia Code(s): J96.21 - ACUTE AND CHRONIC RESPIRATORY FAILURE WITH HYPOXIA
--- NOTE | 2016-07-14 17:59 | PN ---
Progress Note, Physician History of Present Illness: Feeling better No c/o dyspnea on nasal cannula O2 Occasional cough- whie sputum No fever/ chills - Current Medication List Current Medications: Active Medications Acetaminophen (Tylenol -) 650 mg PO Q6H PRN PRN Reason: FEVER OR PAIN Apixaban (Eliquis -) 5 mg PO BID [facility] Last Admin: 07/14/16 10:45 Dose: 5 mg Atorvastatin Calcium (Lipitor -) 10 mg PO HS [facility] Last Admin: 07/13/16 21:47 Dose: 10 mg Azithromycin (Zithromax 500mg Ivpb (Pre-Docked)) 500 mg IVPB DAILY [facility] Last Admin: 07/14/16 10:45 Dose: 500 mg Budesonide/Formoterol Fumarate (Symbicort 160/4.5mcg -) 2 puff IH BID [facility] Last Admin: 07/14/16 10:45 Dose: 2 puff Furosemide (Lasix Injection -) 80 mg IVPB BID@0600,1400 [facility] Stop: 07/14/16 23:00 Last Admin: 07/14/16 13:12 Dose: 80 mg Gabapentin (Neurontin -) 100 mg PO TID [facility] Last Admin: 07/14/16 13:12 Dose: 100 mg Insulin Aspart (Novolog Vial Sliding Scale -) 1 vial SQ ACHS [facility] PRN Reason: Protocol Last Admin: 07/14/16 17:50 Dose: 8 units Insulin Detemir (Levemir Vial) 23 units SQ BIDI [facility] Last Admin: 07/14/16 17:50 Dose: 23 units Methylprednisolone Sodium Succinate (Solu-Medrol -) 40 mg IVPB BID [facility] Tamsulosin HCl (Flomax -) 0.4 mg PO DAILY@0830 [facility] Last Admin: 07/14/16 10:45 Dose: 0.4 mg Torsemide (Demadex -) 40 mg PO DAILY [facility] Verapamil HCl (Calan Sr -) 360 mg PO DAILY [facility] Last Admin: 07/14/16 10:45 Dose: 360 mg - Objective Vital Signs: Vital Signs Temperature 98.3 F 07/14/16 13:35 Pulse Rate 67 07/14/16 14:51 Respiratory Rate 20 07/14/16 13:35 Blood Pressure 122/64 07/14/16 13:35 O2 Sat by Pulse Oximetry (%) 92 L 07/14/16 14:51 Constitutional: Yes: No Distress, Obese Eyes: Yes: Conjunctiva Clear Cardiovascular: Yes: Regular Rate and Rhythm, S1, S2 Respiratory: Yes: Diminished Gastrointestinal: Yes: Normal Bowel Sounds, Soft, Abdomen, Obese. No: Tenderness Edema: Yes Labs: CBC, BMP 07/13/16 05:35 07/14/16 05:35 Assessment/Plan Exacerbation COPD Probable steroid-induced leukocytosis Possible tracheobronchitis BC (-) Sputum/influenza screen pending Continue zithromax
[2016-07-14] MEDS ORDERED: methylPREDNISolone NA SUCC 40 MG/1 ML VIAL IVPB SCH (22:00)
[2016-07-14] MEDS: ATORVASTATIN CA 10 MG TABLET (FP) PO SCH (22:17)
[2016-07-15] MEDS: INSULIN SLIDING SCALE (NOVOLOG) 1 VIAL SQ SCH ×4 (06:30→21:35)
[2016-07-15] MEDS: GABAPENTIN 100 MG CAPSULE (FP) PO SCH ×3 (06:32→21:31)
[2016-07-15] MEDS: INSULIN DETEMIR 100 UNITS/ML MDV SQ SCH ×2 (06:33→17:23)
[2016-07-15 07:59] LABS: CALCIUM 9.1 mg/dL (8.5-10.1)
[2016-07-15] MEDS ORDERED: PT OWN MED DRAWER 7, Y5N ONE ×2 (09:41→09:45)
[2016-07-15] MEDS: VERAPAMIL HCL 120 MG E.R. TABLET PO SCH (09:46)
[2016-07-15] MEDS: predniSONE 20 MG TABLET (UD) PO SCH (09:46)
[2016-07-15] MEDS: TAMSULOSIN HCL 0.4 MG CAP.ER.24H (FP) PO SCH (09:46)
[2016-07-15] MEDS: AZITHROMYCIN 250 MG TABLET (FP) PO SCH (09:47)
[2016-07-15] MEDS: BUDESONIDE/FORMETEROL FUMARATE 160/4.5 mcg INHALER IH SCH ×2 (09:47→21:36)
[2016-07-15] MEDS: APIXABAN 5 MG TABLET PO SCH ×2 (09:47→21:31)
[2016-07-15] MEDS ORDERED: TORSEMIDE 20 MG TABLET (FP) PO SCH (10:00)
--- NOTE | 2016-07-15 10:21 | PN ---
Progress Note (short form) - Note Progress Note: s: sob better, no chest pain palps dizzy;feels ready to go home o: Vital Signs Period Temp Pulse Resp BP Sys/Park Pulse Ox Last 24 Hr 97.3 F-98.3 F 67-93 18-22 101-122/58-72 92-98 NAD, calm JVD difficult to assess due to size, neck supple cta bl, nl eff Irregularly, irregular nl s1, s2 no m/r/g + bs soft obese nt nd ext with no le edema. no cyanosis or clubbing no jaundice, diaphoresis. Current Medications Generic Name Dose Route Start Last Admin Trade Name Freq PRN Reason Stop Dose Admin Acetaminophen 650 mg 07/12/16 18:02 Tylenol - PO Q6H PRN FEVER OR PAIN Apixaban 5 mg 07/12/16 22:00 07/15/16 09:47 Eliquis - PO 5 mg BID ARVIND Administration Atorvastatin Calcium 10 mg 07/12/16 22:00 07/14/16 22:17 Lipitor - PO 10 mg HS ARVIND Administration Azithromycin 250 mg 07/15/16 10:00 07/15/16 09:47 Zithromax - PO 250 mg DAILY ARVIND Administration Budesonide/Formoterol Fumarate 2 puff 07/12/16 22:00 07/15/16 09:47 Symbicort 160/4.5mcg - IH 2 puff BID ARVIND Administration Gabapentin 100 mg 07/12/16 22:00 07/15/16 06:32 Neurontin - PO 100 mg TID ARVIND Administration Insulin Aspart 1 vial 07/12/16 22:00 07/15/16 06:30 Novolog Vial Sliding Scale - SQ Not Given ACHS [facility] Protocol Insulin Detemir 23 units 07/13/16 07:00 07/15/16 06:33 Levemir Vial SQ 23 units BIDI ARVIND Administration Prednisone 40 mg 07/15/16 10:00 07/15/16 09:46 Deltasone - PO 40 mg DAILY ARVIND Administration Tamsulosin HCl 0.4 mg 07/13/16 08:30 07/15/16 09:46 Flomax - PO 0.4 mg DAILY@0830 ARVIND Administration Torsemide 40 mg 07/15/16 10:00 07/15/16 09:46 Demadex - PO 40 mg DAILY ARVIND Administration Verapamil HCl 360 mg 07/13/16 10:00 07/15/16 09:46 Calan Sr - PO 360 mg DAILY ARVIND Administration CBC, BMP 07/13/16 05:35 07/15/16 05:35 EKG: AFib, vr 103 bpm. No ischemic changes. tele: afib, VR controlled CXR: large heart, prominent central markings LIANNE 12/24 (at [facility]): low-nl LVEF (? due to afib); mild RV hypo; mild AI Echo 08/2015: tds, nl lv/rv, no sig valve path mibi 12/2012: small posterior ischemia vs artifact, nl lvef, no tid 10/2015 CT scan negative for PE a/p: 71 yo male with h/o AFib s/p prior DCCV 12/2015 to SR on AC, HTN, HL, PVCs with palpitations, morbid obesity, NATHANIEL on bipap, severe COPD, here with sob. sob, severe COPD on home O2: - symptoms and vol overload improved with steroids and iv lasix. - cont torsemide 40 mg qd - no signs of acs - copd/nathaniel tx per pmd/pulm - Consider repeat echo as outpatient once diuresed paroxysmal AF/flutter -new dx 2015--req'd amio for HR control (now off) and s/p successful DCCV 12/24 -cont eliquis for AC, verapamil for HR control. hld: -continue statin htn: -stable on current meds. ?cad: -pt had borderline positive mibi in 2012 -never had angina sx's -CE's neg here x 1. EKG without ischemic changes. -continue medical management with statin, AC cardiac green stable for dc, pt will f/u with dr richardson
[2016-07-15] MEDS ORDERED: dilTIAZem HCL 50 MG/10 ML - 10 ML VIAL IVPUSH PRN (12:48)
--- NOTE | 2016-07-15 15:17 | PN ---
Progress Note (short form) - Note Progress Note: Currently on BIPAP. Breathing feels ok, but has been having palpitations when he ambulates. No CP or SOB. Intake & Output 07/12/16 07/13/16 07/14/16 07/15/16 23:59 23:59 23:59 23:59 Intake Total 50 1150 960 210 Output Total 200 1900 1100 1000 Balance -150 -750 -140 -790 Weight 345 lb 6 oz 344 lb 6.4 oz 344 lb Last Vital Signs Temp Pulse Resp BP Pulse Ox 98.1 F 80 20 107/60 95 07/15/16 14:41 07/15/16 14:41 07/15/16 14:41 07/15/16 14:41 07/15/16 09:00 Active Medications Acetaminophen (Tylenol -) 650 mg PO Q6H PRN PRN Reason: FEVER OR PAIN Apixaban (Eliquis -) 5 mg PO BID [facility] Last Admin: 07/15/16 09:47 Dose: 5 mg Atorvastatin Calcium (Lipitor -) 10 mg PO HS [facility] Last Admin: 07/14/16 22:17 Dose: 10 mg Azithromycin (Zithromax -) 250 mg PO DAILY [facility] Last Admin: 07/15/16 09:47 Dose: 250 mg Budesonide/Formoterol Fumarate (Symbicort 160/4.5mcg -) 2 puff IH BID [facility] Last Admin: 07/15/16 09:47 Dose: 2 puff Diltiazem HCl (Cardizem Injection -) 5 mg IVPUSH Q4H PRN PRN Reason: TACHYCARDIA Gabapentin (Neurontin -) 100 mg PO TID [facility] Last Admin: 07/15/16 06:32 Dose: 100 mg Insulin Aspart (Novolog Vial Sliding Scale -) 1 vial SQ ACHS [facility] PRN Reason: Protocol Last Admin: 07/15/16 11:57 Dose: 2 units Insulin Detemir (Levemir Vial) 23 units SQ BIDI [facility] Last Admin: 07/15/16 06:33 Dose: 23 units Prednisone (Deltasone -) 40 mg PO DAILY [facility] Last Admin: 07/15/16 09:46 Dose: 40 mg Tamsulosin HCl (Flomax -) 0.4 mg PO DAILY@0830 [facility] Last Admin: 07/15/16 09:46 Dose: 0.4 mg Torsemide (Demadex -) 40 mg PO DAILY [facility] Last Admin: 07/15/16 09:46 Dose: 40 mg Verapamil HCl (Calan Sr -) 360 mg PO DAILY [facility] Last Admin: 07/15/16 09:46 Dose: 360 mg Constitutional: Yes: NAD on BiPAP Eyes: Yes: WNL HENT: Yes: WNL Neck: Yes: WNL Cardiovascular: Yes: Pulse Irregular, S1, S2 Respiratory: Yes: Diminished at the bases Gastrointestinal: Yes: WNL Extremities: Yes: WNL Edema: Yes Labs: Laboratory Results - last 24 hr 07/14/16 07/14/16 07/15/16 15:56 22:16 04:53 Sodium Potassium Chloride Carbon Dioxide Anion Gap BUN Creatinine POC Glucometer 339 146 180 Random Glucose Calcium 07/15/16 07/15/16 05:35 11:56 Sodium 140 Potassium 4.2 Chloride 101 Carbon Dioxide 31 Anion Gap 8 BUN 33 H Creatinine 1.0 POC Glucometer 231 Random Glucose 191 H Calcium 9.1 Problem List - Problems (1) Acute CHF Code(s): I50.9 - HEART FAILURE, UNSPECIFIED Qualifiers: Congestive heart failure type: unspecified congestive heart failure type Qualified Code(s): I50.9 - Heart failure, unspecified (2) Atrial fibrillation Code(s): I48.91 - UNSPECIFIED ATRIAL FIBRILLATION Qualifiers: Atrial fibrillation type: unspecified Qualified Code(s): I48.91 - Unspecified atrial fibrillation (3) COPD (chronic obstructive pulmonary disease) Code(s): J44.9 - CHRONIC OBSTRUCTIVE PULMONARY DISEASE, UNSPECIFIED Qualifiers : COPD type: unspecified COPD Qualified Code(s): J44.9 - Chronic obstructive pulmonary disease, unspecified (4) Diabetes mellitus Code(s): E11.9 - TYPE 2 DIABETES MELLITUS WITHOUT COMPLICATIONS (5) Acute exacerbation of chronic obstructive pulmonary disease (COPD) Code(s): J44.1 - CHRONIC OBSTRUCTIVE PULMONARY DISEASE W (ACUTE) EXACERBATION (6) Dyspnea Code(s): R06.00 - DYSPNEA, UNSPECIFIED Qualifiers: (7) Edema Code(s): R60.9 - EDEMA, UNSPECIFIED (8) HTN (hypertension) Code(s): I10 - ESSENTIAL (PRIMARY) HYPERTENSION (9) Hypoxemia Code(s): R09.02 - HYPOXEMIA (10) Morbid obesity Code(s): E66.01 - MORBID (SEVERE) OBESITY DUE TO EXCESS CALORIES (11) Obstructive sleep apnea Code(s): G47.33 - OBSTRUCTIVE SLEEP APNEA (ADULT) (PEDIATRIC) (12) Acute on chronic respiratory failure with hypoxemia Code(s): J96.21 - ACUTE AND CHRONIC RESPIRATORY FAILURE WITH HYPOXIA Assessment/Plan IMP ACUTE ON CHRONIC HYPOXEMIC RESPIRATORY FAILURE IMPROVING DECOMPENSATED CHF IMPROVING COPD ON O2 AFIB DM OSAS/OHS HTN PLAN DIURESIS TOLERATED INHALED BRONCHODILATORS PREDNISONE TAPER DAILY WTS BIPAP AT NIGHT AND PRN MONITOR BLOOD SUGARS DR NGUYEN
--- NOTE | 2016-07-15 16:38 | EKG ---
Test Reason : Blood Pressure : / mmHG Vent. Rate : 103 BPM Atrial Rate : 394 BPM P-R Int : 000 ms QRS Dur : 102 ms QT Int : 322 ms P-R-T Axes : 000 062 050 degrees QTc Int : 421 ms ATRIAL FIBRILLATION WITH RAPID VENTRICULAR RESPONSE ABNORMAL ECG WHEN COMPARED WITH ECG OF 12-JUL-2016 14:06, NO SIGNIFICANT CHANGE WAS FOUND Confirmed by MCKAY MEJÍA MD ([id number]) on 07/15/2016 4:37:26 PM Referred By: MCKAY MEJÍA Confirmed By:MCKAY MEJÍA MD
[2016-07-15] MEDS ORDERED: VERAPAMIL HCL 120 MG E.R. TABLET PO ONE (17:55)
--- NOTE | 2016-07-15 20:18 | PN ---
Progress Note (short form) - Note Progress Note: CLARIFICATION OF HEART FAILURE IS ACUTE DECOMPENSATED SYSTOLIC HEART FAILURE, ACUTE ON CHRONIC CHF. Problem List - Problems (1) Acute CHF Code(s): I50.9 - HEART FAILURE, UNSPECIFIED Qualifiers: Congestive heart failure type: unspecified congestive heart failure type Qualified Code(s): I50.9 - Heart failure, unspecified (2) Acute on chronic respiratory failure with hypoxemia Code(s): J96.21 - ACUTE AND CHRONIC RESPIRATORY FAILURE WITH HYPOXIA (3) Asthma Code(s): J45.909 - UNSPECIFIED ASTHMA, UNCOMPLICATED (4) Atrial fibrillation Code(s): I48.91 - UNSPECIFIED ATRIAL FIBRILLATION Qualifiers: Atrial fibrillation type: unspecified Qualified Code(s): I48.91 - Unspecified atrial fibrillation (5) COPD (chronic obstructive pulmonary disease) Code(s): J44.9 - CHRONIC OBSTRUCTIVE PULMONARY DISEASE, UNSPECIFIED Qualifiers : COPD type: unspecified COPD Qualified Code(s): J44.9 - Chronic obstructive pulmonary disease, unspecified (6) Diabetes mellitus Code(s): E11.9 - TYPE 2 DIABETES MELLITUS WITHOUT COMPLICATIONS (7) Morbid obesity Code(s): E66.01 - MORBID (SEVERE) OBESITY DUE TO EXCESS CALORIES (8) Obstructive sleep apnea Code(s): G47.33 - OBSTRUCTIVE SLEEP APNEA (ADULT) (PEDIATRIC) (9) Shortness of breath Code(s): R06.02 - SHORTNESS OF BREATH
[2016-07-15] MEDS: ATORVASTATIN CA 10 MG TABLET (FP) PO SCH (21:31)
[2016-07-16] MEDS: INSULIN SLIDING SCALE (NOVOLOG) 1 VIAL SQ SCH ×4 (06:06→21:10)
[2016-07-16] MEDS: GABAPENTIN 100 MG CAPSULE (FP) PO SCH ×3 (06:09→21:10)
[2016-07-16] MEDS: FUROSEMIDE 40 MG TABLET (FP) PO SCH ×2 (06:09→14:48)
[2016-07-16] MEDS: INSULIN DETEMIR 100 UNITS/ML MDV SQ SCH ×2 (06:46→16:54)
--- NOTE | 2016-07-16 07:45 | DS ---
Physical Examination Vital Signs: Vital Signs Temperature 98 F 07/16/16 05:54 Pulse Rate 79 07/16/16 05:54 Respiratory Rate 20 07/16/16 05:54 Blood Pressure 115/71 07/16/16 05:54 O2 Sat by Pulse Oximetry (%) 98 07/16/16 02:30 Constitutional: Yes: No Distress Eyes: Yes: WNL HENT: Yes: WNL Neck: Yes: WNL Cardiovascular: Yes: WNL Respiratory: Yes: On BiPap, On Nasal O2 Gastrointestinal: Yes: WNL Renal/: Yes: WNL Musculoskeletal: Yes: WNL Extremities: Yes: WNL Edema: Yes Edema: LLE: 2+, RLE: 2+ Peripheral Pulses WNL: Yes Integumentary: Yes: WNL, Venous Stasis Changes Wound/Incision: Yes: Clean/Dry Neurological: Yes: WNL ...Motor Strength: WNL Psychiatric: Yes: WNL Labs: CBC, BMP 07/13/16 05:35 07/15/16 05:35 Discharge Summary Reason For Visit: COPD, AFIB, A CHF Current Active Problems Acute CHF (Acute) Acute on chronic respiratory failure with hypoxemia (Acute) Asthma (Acute) Atrial fibrillation (Acute) COPD (chronic obstructive pulmonary disease) (Acute) Diabetes mellitus (Acute) Influenza A (Acute) Procedures: Principal: cxr Other Procedures: 02 support Hospital Course: admitted iv abx/lasix/and steroids, acute on chronic systolic decompensated heart failure with edema and acute on chronic copd/asthma, dc home on bipap home therapy, vns Condition: Stable - Instructions Diet, Activity, Other Instructions: low sodium Referrals: Mars Brothers MD [Primary Care Provider] - Disposition: LONG TERM FACILITY - Home Medications Comprehensive Discharge Medication List: Ambulatory Orders Atorvastatin Ca [Lipitor] 10 mg PO HS tablet 08/23/15 Gabapentin [Neurontin -] 100 mg PO BID capsule 08/23/15 Insulin Detemir [Levemir Flextouch] 23 unit SQ BID 11/26/15 Tamsulosin HCl 0.4 mg PO DAILY 12/11/15 Apixaban [Eliquis] 5 mg PO BID 02/28/16 Albuterol 0.083% Nebulizer Cielo [Ventolin 0.083% Nebulizer Soln -] 1 amp NEB PRN 06/25/16 Levalbuterol Tartrate [Xopenex Hfa] 2 puff IH PRN 06/25/16 Budesonide/Formeterol Fumarate [SYMBICORT 160/4.5mcg -] 2 puff IH BID inhaler 06/30/16 Verapamil HCl ER [Calan Sr -] 360 mg PO DAILY tablet.er 06/30/16 Acetaminophen [Tylenol .Regular Strength -] 650 mg PO Q6H PRN #0 tablet Apixaban [Eliquis -] 5 mg PO BID tablet 07/15/16 Atorvastatin Ca [Lipitor] 10 mg PO HS tablet 07/15/16 Azithromycin [Zithromax 250mg Tablets -] 250 mg PO DAILY #3 tablet 07/15/16 Budesonide/Formeterol Fumarate [SYMBICORT 160/4.5mcg -] 2 puff IH BID inhaler 07/15/16 Furosemide [Lasix] 40 mg PO BID #60 tablet 07/15/16 Gabapentin [Neurontin -] 100 mg PO TID capsule 07/15/16 Insulin (Levemir) [Levemir Vial] 23 units SQ BIDI ml 07/15/16 Insulin Sliding Scale [Novolog Vial Sliding Scale -] 1 vial SQ ACHS units 07/15 Prednisone [Deltasone -] 10 mg PO DAILY #60 tablet 07/15/16 Tamsulosin HCl [Flomax -] 0.4 mg PO DAILY@0830 cap.er.24h 07/15/16 Torsemide [Demadex -] 40 mg PO DAILY #30 tablet 07/15/16 Verapamil HCl ER [Calan Sr -] 360 mg PO DAILY tablet.er 07/15/16
[2016-07-16 08:39] LABS: CALCIUM 9.7 mg/dL (8.5-10.1)
[2016-07-16 08:41] LABS: CREATININE 1.3 mg/dL (0.7-1.3)
[2016-07-16] MEDS ORDERED: PT OWN MED DRAWER 7, Y5N ONE ×2 (09:00→22:53)
[2016-07-16] MEDS: TAMSULOSIN HCL 0.4 MG CAP.ER.24H (FP) PO SCH (09:04)
[2016-07-16] MEDS: APIXABAN 5 MG TABLET PO SCH ×2 (09:04→21:10)
[2016-07-16] MEDS: AZITHROMYCIN 250 MG TABLET (FP) PO SCH (09:04)
[2016-07-16] MEDS: predniSONE 20 MG TABLET (UD) PO SCH (09:04)
[2016-07-16] MEDS: VERAPAMIL HCL 240 MG E.R. TABLET (FP) PO SCH ×3 (09:04→23:19)
[2016-07-16] MEDS: BUDESONIDE/FORMETEROL FUMARATE 160/4.5 mcg INHALER IH SCH ×2 (09:05→21:09)
--- NOTE | 2016-07-16 10:56 | PN ---
Progress Note (short form) - Note Progress Note: s: no cp, sob, palps, dizzy o: Vital Signs Period Temp Pulse Resp BP Sys/Park Pulse Ox Last 24 Hr 97.4 F-98.1 F 70-97 18-22 101-139/60-90 95-100 NAD, calm JVD difficult to assess due to size, neck supple cta bl, nl eff Irregularly, irregular nl s1, s2 no m/r/g + bs soft obese nt nd ext with no le edema. no cyanosis or clubbing no jaundice, diaphoresis. Current Medications Generic Name Dose Route Start Last Admin Trade Name Freq PRN Reason Stop Dose Admin Acetaminophen 650 mg 07/12/16 18:02 Tylenol - PO Q6H PRN FEVER OR PAIN Apixaban 5 mg 07/12/16 22:00 07/16/16 09:04 Eliquis - PO 5 mg BID ARVIND Administration Atorvastatin Calcium 10 mg 07/12/16 22:00 07/15/16 21:31 Lipitor - PO 10 mg HS ARVIND Administration Azithromycin 250 mg 07/15/16 10:00 07/16/16 09:04 Zithromax - PO 250 mg DAILY ARVIND Administration Budesonide/Formoterol Fumarate 2 puff 07/12/16 22:00 07/16/16 09:05 Symbicort 160/4.5mcg - IH 2 puff BID ARVIND Administration Diltiazem HCl 5 mg 07/15/16 12:48 Cardizem Injection - IVPUSH Q4H PRN TACHYCARDIA Furosemide 40 mg 07/16/16 06:00 07/16/16 06:09 Lasix - PO 40 mg BID@0600,1400 ARVIND Administration Gabapentin 100 mg 07/12/16 22:00 07/16/16 06:09 Neurontin - PO 100 mg TID ARVIND Administration Insulin Aspart 1 vial 07/12/16 22:00 07/16/16 06:06 Novolog Vial Sliding Scale - SQ Not Given ACHS [facility] Protocol Insulin Detemir 23 units 07/13/16 07:00 07/16/16 06:46 Levemir Vial SQ 23 units BIDI ARVIND Administration Prednisone 40 mg 07/15/16 10:00 07/16/16 09:04 Deltasone - PO 40 mg DAILY ARVIND Administration Tamsulosin HCl 0.4 mg 07/13/16 08:30 07/16/16 09:04 Flomax - PO 0.4 mg DAILY@0830 ARVIND Administration Verapamil HCl 240 mg 07/16/16 08:00 07/16/16 10:40 Calan Sr - PO Not Given BID ARVIND CBC, BMP 07/13/16 05:35 07/16/16 06:05 EKG: AFib, vr 103 bpm. No ischemic changes. tele: afib, VR controlled at rest CXR: large heart, prominent central markings LIANNE 12/24 (at [facility]V): low-nl LVEF (? due to afib); mild RV hypo; mild AI Echo 08/2015: tds, nl lv/rv, no sig valve path mibi 12/2012: small posterior ischemia vs artifact, nl lvef, no tid 10/2015 CT scan negative for PE a/p: 71 yo male with h/o AFib s/p prior DCCV 12/2015 to SR on AC, HTN, HL, PVCs with palpitations, morbid obesity, NATHANIEL on bipap, severe COPD, here with sob. sob, severe COPD on home O2, acute diastolic chf: - symptoms and vol overload improved with steroids and iv lasix here - pt was given po torsemide 07/15 but then said he doesn't want to take it anymore because it is too strong. He says he only wants to take lasix. He was previously supposed to be on lasix 40 bid at home but says he was only taking once a day but now he says he will take it twice daily because he does not want torsemide. Will change back to lasix 40 bid. - no signs of acs - copd/nathaniel tx per pmd/pulm - Consider repeat echo as outpatient once diuresed paroxysmal AF/flutter -new dx 2015--req'd amio for HR control (now off) and s/p successful DCCV 12/24 -cont eliquis for AC -During the day yesterday as pt ambulated his HR was elevated. At rest his HR was controlled. Increased his calan from 360 qd to 240 bid for better rate control. Cont to monitor on tele this afternoon, if his HR is better controlled and he is feeling less palps with exertion ok for dc from cardiac pov. hld: -continue statin htn: -stable on current meds. ?cad: -pt had borderline positive mibi in 2013 -never had angina sx's -CE's neg here x 1. EKG without ischemic changes. -continue medical management with statin, AC
--- NOTE | 2016-07-16 12:11 | PN ---
Progress Note, Physician History of Present Illness: PULMONARY ALERT,DOING WELL,-SOB,+PALPITATIONS - Current Medication List Current Medications: Active Medications Acetaminophen (Tylenol -) 650 mg PO Q6H PRN PRN Reason: FEVER OR PAIN Apixaban (Eliquis -) 5 mg PO BID [facility] Last Admin: 07/16/16 09:04 Dose: 5 mg Atorvastatin Calcium (Lipitor -) 10 mg PO HS [facility] Last Admin: 07/15/16 21:31 Dose: 10 mg Azithromycin (Zithromax -) 250 mg PO DAILY [facility] Last Admin: 07/16/16 09:04 Dose: 250 mg Budesonide/Formoterol Fumarate (Symbicort 160/4.5mcg -) 2 puff IH BID [facility] Last Admin: 07/16/16 09:05 Dose: 2 puff Diltiazem HCl (Cardizem Injection -) 5 mg IVPUSH Q4H PRN PRN Reason: TACHYCARDIA Furosemide (Lasix -) 40 mg PO BID@0600,1400 [facility] Last Admin: 07/16/16 06:09 Dose: 40 mg Gabapentin (Neurontin -) 100 mg PO TID [facility] Last Admin: 07/16/16 06:09 Dose: 100 mg Insulin Aspart (Novolog Vial Sliding Scale -) 1 vial SQ ACHS [facility] PRN Reason: Protocol Last Admin: 07/16/16 11:57 Dose: Not Given Insulin Detemir (Levemir Vial) 23 units SQ BIDI [facility] Last Admin: 07/16/16 06:46 Dose: 23 units Prednisone (Deltasone -) 40 mg PO DAILY [facility] Last Admin: 07/16/16 09:04 Dose: 40 mg Tamsulosin HCl (Flomax -) 0.4 mg PO DAILY@0830 [facility] Last Admin: 07/16/16 09:04 Dose: 0.4 mg Verapamil HCl (Calan Sr -) 240 mg PO BID [facility] Last Admin: 07/16/16 10:40 Dose: Not Given - Objective Vital Signs: Vital Signs Temperature 97.9 F 07/16/16 08:12 Pulse Rate 70 07/16/16 09:58 Respiratory Rate 18 07/16/16 08:12 Blood Pressure 122/90 07/16/16 08:12 O2 Sat by Pulse Oximetry (%) 98 07/16/16 09:58 Constitutional: Yes: Well Nourished, Calm Eyes: Yes: WNL HENT: Yes: WNL Neck: Yes: WNL Cardiovascular: Yes: Pulse Irregular, S1, S2 Respiratory: Yes: Diminished Gastrointestinal: Yes: WNL Extremities: Yes: WNL Edema: Yes Labs: CBC, BMP 07/13/16 05:35 07/16/16 06:05 Problem List - Problems (1) Acute CHF Code(s): I50.9 - HEART FAILURE, UNSPECIFIED Qualifiers: Congestive heart failure type: unspecified congestive heart failure type Qualified Code(s): I50.9 - Heart failure, unspecified (2) Atrial fibrillation Code(s): I48.91 - UNSPECIFIED ATRIAL FIBRILLATION Qualifiers: Atrial fibrillation type: unspecified Qualified Code(s): I48.91 - Unspecified atrial fibrillation (3) COPD (chronic obstructive pulmonary disease) Code(s): J44.9 - CHRONIC OBSTRUCTIVE PULMONARY DISEASE, UNSPECIFIED Qualifiers : COPD type: unspecified COPD Qualified Code(s): J44.9 - Chronic obstructive pulmonary disease, unspecified (4) Diabetes mellitus Code(s): E11.9 - TYPE 2 DIABETES MELLITUS WITHOUT COMPLICATIONS (5) Acute exacerbation of chronic obstructive pulmonary disease (COPD) Code(s): J44.1 - CHRONIC OBSTRUCTIVE PULMONARY DISEASE W (ACUTE) EXACERBATION (6) Dyspnea Code(s): R06.00 - DYSPNEA, UNSPECIFIED Qualifiers: (7) Edema Code(s): R60.9 - EDEMA, UNSPECIFIED (8) HTN (hypertension) Code(s): I10 - ESSENTIAL (PRIMARY) HYPERTENSION (9) Hypoxemia Code(s): R09.02 - HYPOXEMIA (10) Morbid obesity Code(s): E66.01 - MORBID (SEVERE) OBESITY DUE TO EXCESS CALORIES (11) Obstructive sleep apnea Code(s): G47.33 - OBSTRUCTIVE SLEEP APNEA (ADULT) (PEDIATRIC) (12) Acute on chronic respiratory failure with hypoxemia Code(s): J96.21 - ACUTE AND CHRONIC RESPIRATORY FAILURE WITH HYPOXIA Assessment/Plan IMP ACUTE ON CHRONIC HYPOXEMIC RESPIRATORY FAILURE IMPROVING DECOMPENSATED CHF IMPROVING COPD ON O2 AFIB DM LUCY HTN PLAN ILASIX INHALED BRONCHODILATORS STEROID TAPER DAILY WTS BIPAP AT NIGHT AND PRN DR STACK Problem List - Problems (1) Acute CHF Code(s): I50.9 - HEART FAILURE, UNSPECIFIED Qualifiers: Congestive heart failure type: unspecified congestive heart failure type Qualified Code(s): I50.9 - Heart failure, unspecified (2) Atrial fibrillation Code(s): I48.91 - UNSPECIFIED ATRIAL FIBRILLATION Qualifiers: Atrial fibrillation type: unspecified Qualified Code(s): I48.91 - Unspecified atrial fibrillation (3) COPD (chronic obstructive pulmonary disease) Code(s): J44.9 - CHRONIC OBSTRUCTIVE PULMONARY DISEASE, UNSPECIFIED Qualifiers : COPD type: unspecified COPD Qualified Code(s): J44.9 - Chronic obstructive pulmonary disease, unspecified (4) Diabetes mellitus Code(s): E11.9 - TYPE 2 DIABETES MELLITUS WITHOUT COMPLICATIONS (5) Acute exacerbation of chronic obstructive pulmonary disease (COPD) Code(s): J44.1 - CHRONIC OBSTRUCTIVE PULMONARY DISEASE W (ACUTE) EXACERBATION (6) Dyspnea Code(s): R06.00 - DYSPNEA, UNSPECIFIED Qualifiers: (7) Edema Code(s): R60.9 - EDEMA, UNSPECIFIED (8) HTN (hypertension) Code(s): I10 - ESSENTIAL (PRIMARY) HYPERTENSION (9) Hypoxemia Code(s): R09.02 - HYPOXEMIA (10) Morbid obesity Code(s): E66.01 - MORBID (SEVERE) OBESITY DUE TO EXCESS CALORIES (11) Obstructive sleep apnea Code(s): G47.33 - OBSTRUCTIVE SLEEP APNEA (ADULT) (PEDIATRIC) (12) Acute on chronic respiratory failure with hypoxemia Code(s): J96.21 - ACUTE AND CHRONIC RESPIRATORY FAILURE WITH HYPOXIA
[2016-07-16] MEDS: ACETAMINOPHEN 325 MG TABLET (FP) PO PRN (13:06)
[2016-07-16] MEDS: ATORVASTATIN CA 10 MG TABLET (FP) PO SCH (21:10)
[2016-07-17] MEDS: GABAPENTIN 100 MG CAPSULE (FP) PO SCH ×3 (06:33→21:58)
[2016-07-17] MEDS: FUROSEMIDE 40 MG TABLET (FP) PO SCH ×2 (06:33→13:55)
[2016-07-17] MEDS: INSULIN SLIDING SCALE (NOVOLOG) 1 VIAL SQ SCH ×4 (06:35→21:59)
[2016-07-17] MEDS: INSULIN DETEMIR 100 UNITS/ML MDV SQ SCH ×2 (06:35→18:20)
[2016-07-17 08:06] LABS: CALCIUM 8.9 mg/dL (8.5-10.1); CREATININE 1.1 mg/dL (0.7-1.3)
[2016-07-17] MEDS ORDERED: PT OWN MED DRAWER 7, Y5N ONE (08:55)
--- NOTE | 2016-07-17 09:04 | PN ---
Progress Note, Physician - Current Medication List Current Medications: Active Medications Acetaminophen (Tylenol -) 650 mg PO Q6H PRN PRN Reason: FEVER OR PAIN Last Admin: 07/16/16 13:06 Dose: 650 mg Apixaban (Eliquis -) 5 mg PO BID [facility] Last Admin: 07/16/16 21:10 Dose: 5 mg Atorvastatin Calcium (Lipitor -) 10 mg PO HS [facility] Last Admin: 07/16/16 21:10 Dose: 10 mg Azithromycin (Zithromax -) 250 mg PO DAILY [facility] Last Admin: 07/16/16 09:04 Dose: 250 mg Budesonide/Formoterol Fumarate (Symbicort 160/4.5mcg -) 2 puff IH BID [facility] Last Admin: 07/16/16 21:09 Dose: 2 puff Diltiazem HCl (Cardizem Injection -) 5 mg IVPUSH Q4H PRN PRN Reason: TACHYCARDIA Furosemide (Lasix -) 40 mg PO BID@0600,1400 [facility] Last Admin: 07/17/16 06:33 Dose: 40 mg Gabapentin (Neurontin -) 100 mg PO TID [facility] Last Admin: 07/17/16 06:33 Dose: 100 mg Insulin Aspart (Novolog Vial Sliding Scale -) 1 vial SQ ACHS [facility] PRN Reason: Protocol Last Admin: 07/17/16 06:35 Dose: Not Given Insulin Detemir (Levemir Vial) 23 units SQ BIDI [facility] Last Admin: 07/17/16 06:35 Dose: 23 units Prednisone (Deltasone -) 40 mg PO DAILY [facility] Last Admin: 07/16/16 09:04 Dose: 40 mg Tamsulosin HCl (Flomax -) 0.4 mg PO DAILY@0830 [facility] Last Admin: 07/16/16 09:04 Dose: 0.4 mg Verapamil HCl (Calan Sr -) 240 mg PO BID [facility] Last Admin: 07/16/16 23:19 Dose: 240 mg - Objective Vital Signs: Vital Signs Temperature 98 F 07/17/16 05:36 Pulse Rate 78 07/17/16 05:36 Respiratory Rate 16 07/17/16 05:36 Blood Pressure 100/52 07/17/16 05:36 O2 Sat by Pulse Oximetry (%) 98 07/17/16 04:13 Cardiovascular: Yes: Regular Rate and Rhythm, S1, S2 Respiratory: Yes: CTA Bilaterally Gastrointestinal: Yes: Normal Bowel Sounds, Soft Edema: Yes Labs: CBC, BMP 07/13/16 05:35 Problem List - Problems (1) Acute CHF Code(s): I50.9 - HEART FAILURE, UNSPECIFIED Qualifiers: Congestive heart failure type: unspecified congestive heart failure type Qualified Code(s): I50.9 - Heart failure, unspecified (2) Acute on chronic respiratory failure with hypoxemia Code(s): J96.21 - ACUTE AND CHRONIC RESPIRATORY FAILURE WITH HYPOXIA (3) Asthma Code(s): J45.909 - UNSPECIFIED ASTHMA, UNCOMPLICATED (4) Atrial fibrillation Code(s): I48.91 - UNSPECIFIED ATRIAL FIBRILLATION Qualifiers: Atrial fibrillation type: unspecified Qualified Code(s): I48.91 - Unspecified atrial fibrillation (5) COPD (chronic obstructive pulmonary disease) Code(s): J44.9 - CHRONIC OBSTRUCTIVE PULMONARY DISEASE, UNSPECIFIED Qualifiers : COPD type: unspecified COPD Qualified Code(s): J44.9 - Chronic obstructive pulmonary disease, unspecified (6) Diabetes mellitus Code(s): E11.9 - TYPE 2 DIABETES MELLITUS WITHOUT COMPLICATIONS Assessment/Plan Reason For Visit: COPD, AFIB, A CHF Current Active Problems Acute CHF (Acute) Acute on chronic respiratory failure with hypoxemia (Acute) Asthma (Acute) Atrial fibrillation (Acute) COPD (chronic obstructive pulmonary disease) (Acute) Diabetes mellitus (Acute) Influenza A (Acute) Procedures: Principal: cxr Other Procedures: 02 support Hospital Course: admitted iv abx/lasix/and steroids, acute on chronic systolic decompensated heart failure with edema and acute on chronic copd/asthma, dc home on bipap home therapy, vns Condition: Stable - Instructions Diet, Activity, Other Instructions: low sodium Referrals: Mars Brothers MD [Primary Care Provider] - Disposition: [facility]USTODIAL FACILITY DISCHARGE ON HOLD [facility]
--- NOTE | 2016-07-17 09:58 | PN ---
Progress Note (short form) - Note Progress Note: s: no cp, sob, palps, dizzy o: Vital Signs Period Temp Pulse Resp BP Sys/Park Pulse Ox Last 24 Hr 97.5 F-98 F 70-95 16-20 100-145/52-91 98-98 NAD, calm JVD difficult to assess due to size, neck supple cta bl, nl eff Irregularly, irregular nl s1, s2 no m/r/g + bs soft obese nt nd ext with no le edema. no cyanosis or clubbing no jaundice, diaphoresis. Current Medications Generic Name Dose Route Start Last Admin Trade Name Freq PRN Reason Stop Dose Admin Acetaminophen 650 mg 07/12/16 18:02 07/16/16 13:06 Tylenol - PO 650 mg Q6H PRN Administration FEVER OR PAIN Apixaban 5 mg 07/12/16 22:00 07/16/16 21:10 Eliquis - PO 5 mg BID ARVIND Administration Atorvastatin Calcium 10 mg 07/12/16 22:00 07/16/16 21:10 Lipitor - PO 10 mg HS ARVIND Administration Azithromycin 250 mg 07/15/16 10:00 07/16/16 09:04 Zithromax - PO 250 mg DAILY ARVIND Administration Budesonide/Formoterol Fumarate 2 puff 07/12/16 22:00 07/16/16 21:09 Symbicort 160/4.5mcg - IH 2 puff BID ARVIND Administration Diltiazem HCl 5 mg 07/15/16 12:48 Cardizem Injection - IVPUSH Q4H PRN TACHYCARDIA Furosemide 40 mg 07/16/16 06:00 07/17/16 06:33 Lasix - PO 40 mg BID@0600,1400 ARVIND Administration Gabapentin 100 mg 07/12/16 22:00 07/17/16 06:33 Neurontin - PO 100 mg TID ARVIND Administration Insulin Aspart 1 vial 07/12/16 22:00 07/17/16 06:35 Novolog Vial Sliding Scale - SQ Not Given ACHS [facility] Protocol Insulin Detemir 23 units 07/13/16 07:00 07/17/16 06:35 Levemir Vial SQ 23 units BIDI ARVIND Administration Prednisone 40 mg 07/15/16 10:00 07/16/16 09:04 Deltasone - PO 40 mg DAILY ARVIND Administration Tamsulosin HCl 0.4 mg 07/13/16 08:30 07/16/16 09:04 Flomax - PO 0.4 mg DAILY@0830 ARVIND Administration Verapamil HCl 240 mg 07/16/16 08:00 07/16/16 23:19 Calan Sr - PO 240 mg BID ARVIND Administration CBC, BMP 07/13/16 05:35 07/17/16 05:00 EKG: AFib, vr 103 bpm. No ischemic changes. tele: afib, VR controlled CXR: large heart, prominent central markings LIANNE 12/24 (at [facility]): low-nl LVEF (? due to afib); mild RV hypo; mild AI Echo 08/2015: tds, nl lv/rv, no sig valve path mibi 12/2012: small posterior ischemia vs artifact, nl lvef, no tid 10/2015 CT scan negative for PE a/p: 71 yo male with h/o AFib s/p prior DCCV 12/2015 to SR on AC, HTN, HL, PVCs with palpitations, morbid obesity, NATHANIEL on bipap, severe COPD, here with sob. sob, severe COPD on home O2, acute diastolic chf: - symptoms and vol overload improved with steroids and iv lasix here - pt was given po torsemide 07/15 but then said he doesn't want to take it anymore because it is too strong. He says he only wants to take lasix. He was previously supposed to be on lasix 40 bid at home but says he was only taking once a day but now he says he will take it twice daily because he does not want torsemide. Changed back to lasix 40 bid 07/16. Vol status stable, cont same. - no signs of acs - copd/nathaniel tx per pmd/pulm - Consider repeat echo as outpatient after diuresed paroxysmal AF/flutter -new dx 2015--req'd amio for HR control (now off) and s/p successful [facility]CCV 12/24 -cont eliquis for AC -while here his afib has had some rvr when ambulating so have increased his calan from 360 qd to 240 bid for better rate control. Tele showing improved overall rate control. Instructed pt to walk today to see how he feels--if his HR is better controlled and he is feeling less palps with exertion ok for dc from cardiac pov. hld: -continue statin htn: -stable on current meds. ?cad: -pt had borderline positive mibi in 2013 -never had angina sx's -CE's neg here x 1. EKG without ischemic changes. -continue medical management with statin, AC
--- NOTE | 2016-07-17 10:20 | PN ---
Progress Note, Physician History of Present Illness: pulmonary alert,nad,-sob,-cp. slept well on bipap - Current Medication List Current Medications: Active Medications Acetaminophen (Tylenol -) 650 mg PO Q6H PRN PRN Reason: FEVER OR PAIN Last Admin: 07/16/16 13:06 Dose: 650 mg Apixaban (Eliquis -) 5 mg PO BID [facility] Last Admin: 07/16/16 21:10 Dose: 5 mg Atorvastatin Calcium (Lipitor -) 10 mg PO HS [facility] Last Admin: 07/16/16 21:10 Dose: 10 mg Azithromycin (Zithromax -) 250 mg PO DAILY [facility] Last Admin: 07/16/16 09:04 Dose: 250 mg Budesonide/Formoterol Fumarate (Symbicort 160/4.5mcg -) 2 puff IH BID [facility] Last Admin: 07/16/16 21:09 Dose: 2 puff Diltiazem HCl (Cardizem Injection -) 5 mg IVPUSH Q4H PRN PRN Reason: TACHYCARDIA Furosemide (Lasix -) 40 mg PO BID@0600,1400 [facility] Last Admin: 07/17/16 06:33 Dose: 40 mg Gabapentin (Neurontin -) 100 mg PO TID [facility] Last Admin: 07/17/16 06:33 Dose: 100 mg Insulin Aspart (Novolog Vial Sliding Scale -) 1 vial SQ ACHS [facility] PRN Reason: Protocol Last Admin: 07/17/16 06:35 Dose: Not Given Insulin Detemir (Levemir Vial) 23 units SQ BIDI [facility] Last Admin: 07/17/16 06:35 Dose: 23 units Prednisone (Deltasone -) 40 mg PO DAILY [facility] Last Admin: 07/16/16 09:04 Dose: 40 mg Tamsulosin HCl (Flomax -) 0.4 mg PO DAILY@0830 [facility] Last Admin: 07/16/16 09:04 Dose: 0.4 mg Verapamil HCl (Calan Sr -) 240 mg PO BID [facility] Last Admin: 07/16/16 23:19 Dose: 240 mg - Objective Vital Signs: Vital Signs Temperature 98 F 07/17/16 05:36 Pulse Rate 78 07/17/16 05:36 Respiratory Rate 16 07/17/16 05:36 Blood Pressure 100/52 07/17/16 05:36 O2 Sat by Pulse Oximetry (%) 98 07/17/16 04:13 Constitutional: Yes: Well Nourished, Calm Eyes: Yes: WNL HENT: Yes: WNL Neck: Yes: WNL Cardiovascular: Yes: Pulse Irregular, S1, S2 Respiratory: Yes: Diminished Gastrointestinal: Yes: WNL Extremities: Yes: WNL Edema: Yes Labs: Problem List - Problems (1) Acute CHF Code(s): I50.9 - HEART FAILURE, UNSPECIFIED Qualifiers: Congestive heart failure type: unspecified congestive heart failure type Qualified Code(s): I50.9 - Heart failure, unspecified (2) Atrial fibrillation Code(s): I48.91 - UNSPECIFIED ATRIAL FIBRILLATION Qualifiers: Atrial fibrillation type: unspecified Qualified Code(s): I48.91 - Unspecified atrial fibrillation (3) COPD (chronic obstructive pulmonary disease) Code(s): J44.9 - CHRONIC OBSTRUCTIVE PULMONARY DISEASE, UNSPECIFIED Qualifiers : COPD type: unspecified COPD Qualified Code(s): J44.9 - Chronic obstructive pulmonary disease, unspecified (4) Diabetes mellitus Code(s): E11.9 - TYPE 2 DIABETES MELLITUS WITHOUT COMPLICATIONS (5) Acute exacerbation of chronic obstructive pulmonary disease (COPD) Code(s): J44.1 - CHRONIC OBSTRUCTIVE PULMONARY DISEASE W (ACUTE) EXACERBATION (6) Dyspnea Code(s): R06.00 - DYSPNEA, UNSPECIFIED Qualifiers: (7) Edema Code(s): R60.9 - EDEMA, UNSPECIFIED (8) HTN (hypertension) Code(s): I10 - ESSENTIAL (PRIMARY) HYPERTENSION (9) Hypoxemia Code(s): R09.02 - HYPOXEMIA (10) Morbid obesity Code(s): E66.01 - MORBID (SEVERE) OBESITY DUE TO EXCESS CALORIES (11) Obstructive sleep apnea Code(s): G47.33 - OBSTRUCTIVE SLEEP APNEA (ADULT) (PEDIATRIC) (12) Acute on chronic respiratory failure with hypoxemia Code(s): J96.21 - ACUTE AND CHRONIC RESPIRATORY FAILURE WITH HYPOXIA Assessment/Plan IMP ACUTE ON CHRONIC HYPOXEMIC RESPIRATORY FAILURE IMPROVED DECOMPENSATED CHF IMPROVED COPD ON O2 AFIB DM LUCY HTN PLAN LASIX INHALED BRONCHODILATORS STEROIDS DAILY WTS BIPAP AT NIGHT AND PRN DR STACK Problem List - Problems (1) Acute CHF Code(s): I50.9 - HEART FAILURE, UNSPECIFIED Qualifiers: Congestive heart failure type: unspecified congestive heart failure type Qualified Code(s): I50.9 - Heart failure, unspecified (2) Atrial fibrillation Code(s): I48.91 - UNSPECIFIED ATRIAL FIBRILLATION Qualifiers: Atrial fibrillation type: unspecified Qualified Code(s): I48.91 - Unspecified atrial fibrillation (3) COPD (chronic obstructive pulmonary disease) Code(s): J44.9 - CHRONIC OBSTRUCTIVE PULMONARY DISEASE, UNSPECIFIED Qualifiers : COPD type: unspecified COPD Qualified Code(s): J44.9 - Chronic obstructive pulmonary disease, unspecified (4) Diabetes mellitus Code(s): E11.9 - TYPE 2 DIABETES MELLITUS WITHOUT COMPLICATIONS (5) Acute exacerbation of chronic obstructive pulmonary disease (COPD) Code(s): J44.1 - CHRONIC OBSTRUCTIVE PULMONARY DISEASE W (ACUTE) EXACERBATION (6) Dyspnea Code(s): R06.00 - DYSPNEA, UNSPECIFIED Qualifiers: (7) Edema Code(s): R60.9 - EDEMA, UNSPECIFIED (8) HTN (hypertension) Code(s): I10 - ESSENTIAL (PRIMARY) HYPERTENSION (9) Hypoxemia Code(s): R09.02 - HYPOXEMIA (10) Morbid obesity Code(s): E66.01 - MORBID (SEVERE) OBESITY DUE TO EXCESS CALORIES (11) Obstructive sleep apnea Code(s): G47.33 - OBSTRUCTIVE SLEEP APNEA (ADULT) (PEDIATRIC) (12) Acute on chronic respiratory failure with hypoxemia Code(s): J96.21 - ACUTE AND CHRONIC RESPIRATORY FAILURE WITH HYPOXIA
[2016-07-17] MEDS: APIXABAN 5 MG TABLET PO SCH ×2 (10:33→21:59)
[2016-07-17] MEDS: predniSONE 20 MG TABLET (UD) PO SCH (10:33)
[2016-07-17] MEDS: BUDESONIDE/FORMETEROL FUMARATE 160/4.5 mcg INHALER IH SCH ×2 (10:33→22:00)
[2016-07-17] MEDS: TAMSULOSIN HCL 0.4 MG CAP.ER.24H (FP) PO SCH (10:33)
[2016-07-17] MEDS: VERAPAMIL HCL 240 MG E.R. TABLET (FP) PO SCH ×2 (10:33→21:59)
[2016-07-17] MEDS: AZITHROMYCIN 250 MG TABLET (FP) PO SCH (10:33)
[2016-07-17] MEDS: ACETAMINOPHEN 325 MG TABLET (FP) PO PRN (12:53)
[2016-07-17] MEDS ORDERED: DIGOXIN 0.25 MG TABLET (FP) PO ONE (13:00)
[2016-07-17] MEDS ORDERED: DIGOXIN 0.125 MG TABLET (FP) PO ONE ×2 (19:00→23:00)
[2016-07-17] MEDS: ATORVASTATIN CA 10 MG TABLET (FP) PO SCH (21:59)
[2016-07-18] MEDS: GABAPENTIN 100 MG CAPSULE (FP) PO SCH ×3 (06:59→21:54)
[2016-07-18] MEDS: FUROSEMIDE 40 MG TABLET (FP) PO SCH ×2 (06:59→14:03)
[2016-07-18] MEDS: INSULIN SLIDING SCALE (NOVOLOG) 1 VIAL SQ SCH ×4 (06:59→21:54)
[2016-07-18] MEDS: INSULIN DETEMIR 100 UNITS/ML MDV SQ SCH ×2 (06:59→16:51)
[2016-07-18 07:12] LABS: BASOPHIL 0.1 % (0-2.0); EOSINOPHIL 0.6 % (0-4.5); MCH 29.6 pg (25.7-33.7); MCHC 32.7 g/dl (32.0-35.9); MEAN CELL VOLUME 90.5 fl (80-96); MEAN PLT VOLUME 8.7 fl (7.5-11.1); NEUTROPHILS 76.7 % (42.8-82.8); PLATELET COUNT 227 K/MM3 (134-434); RDW 14.5 % (11.9-15.9); WHITE BLOOD COUNT 14.7 K/mm3 (4.0-10.0)
--- NOTE | 2016-07-18 10:06 | PN ---
Progress Note (short form) - Note Progress Note: s: no cp, sob, dizzy, had some palps with exertion last night but overall have been better o: Vital Signs Period Temp Pulse Resp BP Sys/Park Pulse Ox Last 24 Hr 97 F-98.5 F 71-111 18-22 111-138/60-87 97 NAD, calm JVD difficult to assess due to size, neck supple cta bl, nl eff Irregularly, irregular nl s1, s2 no m/r/g + bs soft obese nt nd ext with no le edema. no cyanosis or clubbing no jaundice, diaphoresis. Current Medications Generic Name Dose Route Start Last Admin Trade Name Freq PRN Reason Stop Dose Admin Acetaminophen 650 mg 07/12/16 18:02 07/17/16 12:53 Tylenol - PO 650 mg Q6H PRN Administration FEVER OR PAIN Apixaban 5 mg 07/12/16 22:00 07/17/16 21:59 Eliquis - PO 5 mg BID ARVIND Administration Atorvastatin Calcium 10 mg 07/12/16 22:00 07/17/16 21:59 Lipitor - PO 10 mg HS ARVIND Administration Budesonide/Formoterol Fumarate 2 puff 07/12/16 22:00 07/17/16 22:00 Symbicort 160/4.5mcg - IH 2 puff BID ARVIND Administration Digoxin 0.125 mg 07/18/16 10:00 Lanoxin - PO DAILY ARVIND Diltiazem HCl 5 mg 07/15/16 12:48 Cardizem Injection - IVPUSH Q4H PRN TACHYCARDIA Furosemide 40 mg 07/16/16 06:00 07/18/16 06:59 Lasix - PO 40 mg BID@0600,1400 ARVIND Administration Gabapentin 100 mg 07/12/16 22:00 07/18/16 06:59 Neurontin - PO 100 mg TID ARVIND Administration Insulin Aspart 1 vial 07/12/16 22:00 07/18/16 06:59 Novolog Vial Sliding Scale - SQ Not Given ACHS [facility] Protocol Insulin Detemir 23 units 07/13/16 07:00 07/18/16 06:59 Levemir Vial SQ 23 units BIDI ARVIND Administration Prednisone 40 mg 07/15/16 10:00 07/17/16 10:33 Deltasone - PO 40 mg DAILY ARVIND Administration Tamsulosin HCl 0.4 mg 07/13/16 08:30 07/17/16 10:33 Flomax - PO 0.4 mg DAILY@0830 ARVIND Administration Verapamil HCl 240 mg 07/16/16 08:00 07/17/16 21:59 Calan Sr - PO 240 mg BID ARVIND Administration CBC, BMP 07/18/16 05:30 07/17/16 05:00 EKG: AFib, vr 103 bpm. No ischemic changes. tele: afib, VR mostly controlled, occ rvr with exertion LIANNE 12/24 (at [facility]): low-nl LVEF (? due to afib); mild RV hypo; mild AI Echo 08/2015: tds, nl lv/rv, no sig valve path mibi 12/2012: small posterior ischemia vs artifact, nl lvef, no tid 10/2015 CT scan negative for PE a/p: 71 yo male with h/o AFib s/p prior DCCV 12/2015 to SR on AC, HTN, HL, PVCs with palpitations, morbid obesity, NATHANIEL on bipap, severe COPD, here with sob. sob, severe COPD on home O2, acute diastolic chf: - symptoms and vol overload improved with steroids and iv lasix here - pt was given po torsemide 07/15 but then said he didn't want to take it anymore because it is too strong. He says he only wants to take lasix. He was previously supposed to be on lasix 40 bid at home but says he was only taking once a day but now he says he will take it twice daily because he does not want torsemide. Changed back to lasix 40 bid 07/16. Vol status stable, cont same. - no signs of acs - copd/nathaniel tx per pmd/pulm - Consider repeat echo as outpatient after diuresed paroxysmal AF/flutter -cont eliquis for AC -new dx 2015--req'd amio for HR control (now off) and s/p successful DCCV 12/24 -while here his afib has had some rvr when ambulating so have increased his calan from 360 qd to 240 bid for better rate control. Tele showing improved overall rate control but still some rvr with exertion yesterday so dig was added 07/17. Pt again instructed to walk today to see how he feels--if his HR is better controlled and he is feeling less palps with exertion ok for dc from cardiac pov on current cardiac meds including calan 240 bid and digoxin 125 qd. hld: -continue statin htn: -stable on current meds. ?cad: -pt had borderline positive mibi in 2012 -never had angina sx's -CE's neg here x 1. EKG without ischemic changes. -continue medical management with statin, AC
--- NOTE | 2016-07-18 10:24 | PN ---
Progress Note, Physician History of Present Illness: pulmonary alert,sitting up in bed,nad,-sob - Current Medication List Current Medications: Active Medications Acetaminophen (Tylenol -) 650 mg PO Q6H PRN PRN Reason: FEVER OR PAIN Last Admin: 07/17/16 12:53 Dose: 650 mg Apixaban (Eliquis -) 5 mg PO BID [facility] Last Admin: 07/17/16 21:59 Dose: 5 mg Atorvastatin Calcium (Lipitor -) 10 mg PO HS [facility] Last Admin: 07/17/16 21:59 Dose: 10 mg Budesonide/Formoterol Fumarate (Symbicort 160/4.5mcg -) 2 puff IH BID [facility] Last Admin: 07/17/16 22:00 Dose: 2 puff Digoxin (Lanoxin -) 0.125 mg PO DAILY [facility] Diltiazem HCl (Cardizem Injection -) 5 mg IVPUSH Q4H PRN PRN Reason: TACHYCARDIA Furosemide (Lasix -) 40 mg PO BID@0600,1400 [facility] Last Admin: 07/18/16 06:59 Dose: 40 mg Gabapentin (Neurontin -) 100 mg PO TID [facility] Last Admin: 07/18/16 06:59 Dose: 100 mg Insulin Aspart (Novolog Vial Sliding Scale -) 1 vial SQ ACHS [facility] PRN Reason: Protocol Last Admin: 07/18/16 06:59 Dose: Not Given Insulin Detemir (Levemir Vial) 23 units SQ BIDI [facility] Last Admin: 07/18/16 06:59 Dose: 23 units Prednisone (Deltasone -) 40 mg PO DAILY [facility] Last Admin: 07/17/16 10:33 Dose: 40 mg Tamsulosin HCl (Flomax -) 0.4 mg PO DAILY@0830 [facility] Last Admin: 07/17/16 10:33 Dose: 0.4 mg Verapamil HCl (Calan Sr -) 240 mg PO BID [facility] Last Admin: 07/17/16 21:59 Dose: 240 mg - Objective Vital Signs: Vital Signs Temperature 97 F L 07/18/16 08:54 Pulse Rate 85 07/18/16 08:54 Respiratory Rate 20 07/18/16 08:58 Blood Pressure 128/66 07/18/16 08:54 O2 Sat by Pulse Oximetry (%) 97 07/17/16 21:00 Constitutional: Yes: Well Nourished, Calm Eyes: Yes: WNL HENT: Yes: WNL Neck: Yes: WNL Cardiovascular: Yes: Pulse Irregular, S1, S2 Respiratory: Yes: CTA Bilaterally Gastrointestinal: Yes: WNL Extremities: Yes: WNL Edema: Yes Labs: CBC, BMP 07/18/16 05:30 07/17/16 05:00 Problem List - Problems (1) Acute CHF Code(s): I50.9 - HEART FAILURE, UNSPECIFIED Qualifiers: Congestive heart failure type: unspecified congestive heart failure type Qualified Code(s): I50.9 - Heart failure, unspecified (2) Atrial fibrillation Code(s): I48.91 - UNSPECIFIED ATRIAL FIBRILLATION Qualifiers: Atrial fibrillation type: unspecified Qualified Code(s): I48.91 - Unspecified atrial fibrillation (3) COPD (chronic obstructive pulmonary disease) Code(s): J44.9 - CHRONIC OBSTRUCTIVE PULMONARY DISEASE, UNSPECIFIED Qualifiers : COPD type: unspecified COPD Qualified Code(s): J44.9 - Chronic obstructive pulmonary disease, unspecified (4) Diabetes mellitus Code(s): E11.9 - TYPE 2 DIABETES MELLITUS WITHOUT COMPLICATIONS (5) Acute exacerbation of chronic obstructive pulmonary disease (COPD) Code(s): J44.1 - CHRONIC OBSTRUCTIVE PULMONARY DISEASE W (ACUTE) EXACERBATION (6) Dyspnea Code(s): R06.00 - DYSPNEA, UNSPECIFIED Qualifiers: (7) Edema Code(s): R60.9 - EDEMA, UNSPECIFIED (8) HTN (hypertension) Code(s): I10 - ESSENTIAL (PRIMARY) HYPERTENSION (9) Hypoxemia Code(s): R09.02 - HYPOXEMIA (10) Morbid obesity Code(s): E66.01 - MORBID (SEVERE) OBESITY DUE TO EXCESS CALORIES (11) Obstructive sleep apnea Code(s): G47.33 - OBSTRUCTIVE SLEEP APNEA (ADULT) (PEDIATRIC) (12) Acute on chronic respiratory failure with hypoxemia Code(s): J96.21 - ACUTE AND CHRONIC RESPIRATORY FAILURE WITH HYPOXIA Assessment/Plan IMP ACUTE ON CHRONIC HYPOXEMIC RESPIRATORY FAILURE IMPROVED DECOMPENSATED CHF IMPROVED COPD ON O2 AFIB DM LUCY HTN PLAN LASIX bid INHALED BRONCHODILATORS STEROIDS DAILY WTS BIPAP AT NIGHT AND PRN DR STACK Problem List - Problems (1) Acute CHF Code(s): I50.9 - HEART FAILURE, UNSPECIFIED Qualifiers: Congestive heart failure type: unspecified congestive heart failure type Qualified Code(s): I50.9 - Heart failure, unspecified (2) Atrial fibrillation Code(s): I48.91 - UNSPECIFIED ATRIAL FIBRILLATION Qualifiers: Atrial fibrillation type: unspecified Qualified Code(s): I48.91 - Unspecified atrial fibrillation (3) COPD (chronic obstructive pulmonary disease) Code(s): J44.9 - CHRONIC OBSTRUCTIVE PULMONARY DISEASE, UNSPECIFIED Qualifiers : COPD type: unspecified COPD Qualified Code(s): J44.9 - Chronic obstructive pulmonary disease, unspecified (4) Diabetes mellitus Code(s): E11.9 - TYPE 2 DIABETES MELLITUS WITHOUT COMPLICATIONS (5) Acute exacerbation of chronic obstructive pulmonary disease (COPD) Code(s): J44.1 - CHRONIC OBSTRUCTIVE PULMONARY DISEASE W (ACUTE) EXACERBATION (6) Dyspnea Code(s): R06.00 - DYSPNEA, UNSPECIFIED Qualifiers: (7) Edema Code(s): R60.9 - EDEMA, UNSPECIFIED (8) HTN (hypertension) Code(s): I10 - ESSENTIAL (PRIMARY) HYPERTENSION (9) Hypoxemia Code(s): R09.02 - HYPOXEMIA (10) Morbid obesity Code(s): E66.01 - MORBID (SEVERE) OBESITY DUE TO EXCESS CALORIES (11) Obstructive sleep apnea Code(s): G47.33 - OBSTRUCTIVE SLEEP APNEA (ADULT) (PEDIATRIC) (12) Acute on chronic respiratory failure with hypoxemia Code(s): J96.21 - ACUTE AND CHRONIC RESPIRATORY FAILURE WITH HYPOXIA
[2016-07-18] MEDS ORDERED: PT OWN MED DRAWER 7, Y5N ONE ×3 (11:00→21:36)
[2016-07-18] MEDS: predniSONE 20 MG TABLET (UD) PO SCH (11:19)
[2016-07-18] MEDS: APIXABAN 5 MG TABLET PO SCH ×2 (11:20→21:54)
[2016-07-18] MEDS: VERAPAMIL HCL 240 MG E.R. TABLET (FP) PO SCH ×2 (11:20→21:54)
[2016-07-18] MEDS: TAMSULOSIN HCL 0.4 MG CAP.ER.24H (FP) PO SCH (11:20)
--- NOTE | 2016-07-18 11:44 | PN ---
Progress Note, Physician - Current Medication List Current Medications: Active Medications Acetaminophen (Tylenol -) 650 mg PO Q6H PRN PRN Reason: FEVER OR PAIN Last Admin: 07/17/16 12:53 Dose: 650 mg Apixaban (Eliquis -) 5 mg PO BID [facility] Last Admin: 07/18/16 11:20 Dose: 5 mg Atorvastatin Calcium (Lipitor -) 10 mg PO HS [facility] Last Admin: 07/17/16 21:59 Dose: 10 mg Budesonide/Formoterol Fumarate (Symbicort 160/4.5mcg -) 2 puff IH BID [facility] Last Admin: 07/17/16 22:00 Dose: 2 puff Digoxin (Lanoxin -) 0.125 mg PO DAILY [facility] Diltiazem HCl (Cardizem Injection -) 5 mg IVPUSH Q4H PRN PRN Reason: TACHYCARDIA Furosemide (Lasix -) 40 mg PO BID@0600,1400 [facility] Last Admin: 07/18/16 06:59 Dose: 40 mg Gabapentin (Neurontin -) 100 mg PO TID [facility] Last Admin: 07/18/16 06:59 Dose: 100 mg Insulin Aspart (Novolog Vial Sliding Scale -) 1 vial SQ ACHS [facility] PRN Reason: Protocol Last Admin: 07/18/16 06:59 Dose: Not Given Insulin Detemir (Levemir Vial) 23 units SQ BIDI [facility] Last Admin: 07/18/16 06:59 Dose: 23 units Prednisone (Deltasone -) 40 mg PO DAILY [facility] Last Admin: 07/18/16 11:19 Dose: 40 mg Tamsulosin HCl (Flomax -) 0.4 mg PO DAILY@0830 [facility] Last Admin: 07/18/16 11:20 Dose: 0.4 mg Verapamil HCl (Calan Sr -) 240 mg PO BID [facility] Last Admin: 07/18/16 11:20 Dose: 240 mg - Objective Vital Signs: Vital Signs Temperature 97 F L 07/18/16 08:54 Pulse Rate 96 H 07/18/16 11:20 Respiratory Rate 20 07/18/16 08:58 Blood Pressure 128/66 07/18/16 08:54 O2 Sat by Pulse Oximetry (%) 97 07/17/16 21:00 Cardiovascular: Yes: Regular Rate and Rhythm, S1, S2 Respiratory: Yes: CTA Bilaterally Gastrointestinal: Yes: Normal Bowel Sounds, Soft Edema: Yes Labs: CBC, BMP 07/18/16 05:30 07/17/16 05:00 Problem List - Problems (1) Acute CHF Code(s): I50.9 - HEART FAILURE, UNSPECIFIED Qualifiers: Congestive heart failure type: unspecified congestive heart failure type Qualified Code(s): I50.9 - Heart failure, unspecified (2) Acute on chronic respiratory failure with hypoxemia Code(s): J96.21 - ACUTE AND CHRONIC RESPIRATORY FAILURE WITH HYPOXIA (3) Asthma Code(s): J45.909 - UNSPECIFIED ASTHMA, UNCOMPLICATED (4) Atrial fibrillation Code(s): I48.91 - UNSPECIFIED ATRIAL FIBRILLATION Qualifiers: Atrial fibrillation type: unspecified Qualified Code(s): I48.91 - Unspecified atrial fibrillation (5) COPD (chronic obstructive pulmonary disease) Code(s): J44.9 - CHRONIC OBSTRUCTIVE PULMONARY DISEASE, UNSPECIFIED Qualifiers : COPD type: unspecified COPD Qualified Code(s): J44.9 - Chronic obstructive pulmonary disease, unspecified (6) Diabetes mellitus Code(s): E11.9 - TYPE 2 DIABETES MELLITUS WITHOUT COMPLICATIONS Assessment/Plan Reason For Visit: COPD, AFIB, A CHF Current Active Problems Acute CHF (Acute) Acute on chronic respiratory failure with hypoxemia (Acute) Asthma (Acute) Atrial fibrillation (Acute) COPD (chronic obstructive pulmonary disease) (Acute) Diabetes mellitus (Acute) Influenza A (Acute) Procedures: Principal: cxr Other Procedures: 02 support Hospital Course: admitted iv abx/lasix/and steroids, acute on chronic systolic decompensated heart failure with edema and acute on chronic copd/asthma, dc home on bipap home therapy, vns sputum mrsa -> isolation - dig level 0.3 -> defer to cardio to adjust for afib - sputum +lexie -> id on case Condition: Stable - Instructions Diet, Activity, Other Instructions: low sodium Referrals: Masr Brothers MD [Primary Care Provider] - Disposition: [facility] FACILITY DISCHARGE ON HOLD [facility]
[2016-07-18] MEDS: DIGOXIN 0.125 MG TABLET (FP) PO SCH (11:56)
[2016-07-18] MEDS: BUDESONIDE/FORMETEROL FUMARATE 160/4.5 mcg INHALER IH SCH ×2 (11:56→21:54)
[2016-07-18] MEDS: AZITHROMYCIN 250 MG TABLET (FP) PO SCH (12:48)
[2016-07-18] MEDS: ACETAMINOPHEN 325 MG TABLET (FP) PO PRN (17:09)
--- NOTE | 2016-07-18 21:16 | PN ---
Progress Note, Physician - Current Medication List Current Medications: Active Medications Acetaminophen (Tylenol -) 650 mg PO Q6H PRN PRN Reason: FEVER OR PAIN Last Admin: 07/18/16 17:09 Dose: 650 mg Apixaban (Eliquis -) 5 mg PO BID [facility] Last Admin: 07/18/16 11:20 Dose: 5 mg Atorvastatin Calcium (Lipitor -) 10 mg PO HS [facility] Last Admin: 07/17/16 21:59 Dose: 10 mg Budesonide/Formoterol Fumarate (Symbicort 160/4.5mcg -) 2 puff IH BID [facility] Last Admin: 07/18/16 11:56 Dose: 2 puff Digoxin (Lanoxin -) 0.125 mg PO DAILY [facility] Last Admin: 07/18/16 11:56 Dose: 0.125 mg Diltiazem HCl (Cardizem Injection -) 5 mg IVPUSH Q4H PRN PRN Reason: TACHYCARDIA Furosemide (Lasix -) 40 mg PO BID@0600,1400 [facility] Last Admin: 07/18/16 14:03 Dose: 40 mg Gabapentin (Neurontin -) 100 mg PO TID [facility] Last Admin: 07/18/16 14:03 Dose: 100 mg Insulin Aspart (Novolog Vial Sliding Scale -) 1 vial SQ ACHS [facility] PRN Reason: Protocol Last Admin: 07/18/16 16:51 Dose: 6 units Insulin Detemir (Levemir Vial) 23 units SQ BIDI [facility] Last Admin: 07/18/16 16:51 Dose: 23 units Prednisone (Deltasone -) 40 mg PO DAILY [facility] Last Admin: 07/18/16 11:19 Dose: 40 mg Tamsulosin HCl (Flomax -) 0.4 mg PO DAILY@0830 [facility] Last Admin: 07/18/16 11:20 Dose: 0.4 mg Verapamil HCl (Calan Sr -) 240 mg PO BID [facility] Last Admin: 07/18/16 11:20 Dose: 240 mg - Objective Vital Signs: Vital Signs Temperature 98.4 F 07/18/16 17:00 Pulse Rate 84 07/18/16 17:00 Respiratory Rate 18 07/18/16 17:00 Blood Pressure 133/73 07/18/16 17:00 O2 Sat by Pulse Oximetry (%) 97 07/17/16 21:00 Labs: CBC, BMP 07/18/16 05:30 07/17/16 05:00 Assessment/Plan LIANNE 12/[address] ([address] [facility]): low-nl LVEF (? due to afib); mild RV hypo; mild AI Echo 08/2015: tds, nl lv/rv, no sig valve path mibi 12/2012: small posterior ischemia vs artifact, nl lvef, no tid 10/2015 CT scan negative for PE a/p: 71 yo male with h/o AFib s/p prior DCCV 12/2015 to SR on AC, HTN, HL, PVCs with palpitations, morbid obesity, NATHANIEL on bipap, severe COPD, here with sob. acute hypoxic resp failure, severe COPD on home O2, acute diastolic chf: - copd being tx'd with steroids and BDs - diuresed with iv lasix for ? volume overload as well (recent 10 lb wt gain at home few days prior to admit) - declines po torsemide ("too strong"); previously declined bid lasix dosing, now willing to take bid PO as outpt - has been stable on lasix 40 po bid since 07/16 - no signs of acs - copd/nathaniel tx per pmd/pulm - Consider repeat echo as outpatient after diuresed paroxysmal AF/flutter -cont eliquis for AC -new dx 2015--req'd amio for HR control (now off due to severe lung dz), s/p successful DCCV 12/24 -rapid afib here when ambulates--calan incr'd from 360 qd to 240 bid, dig added (cont follow levels) -if cannot adequately control HR, may need consider AVN ablation/PPM hld: -continue statin htn: -stable on current meds -cont same ?cad: -pt had borderline positive mibi in 2012 -never had angina sx's -CE's neg here x 1. EKG without ischemic changes. -continue medical management with statin, AC
[2016-07-18] MEDS: ATORVASTATIN CA 10 MG TABLET (FP) PO SCH (21:54)
[2016-07-19] MEDS: GABAPENTIN 100 MG CAPSULE (FP) PO SCH ×2 (06:10→13:17)
[2016-07-19] MEDS: INSULIN SLIDING SCALE (NOVOLOG) 1 VIAL SQ SCH ×2 (06:10→11:41)
[2016-07-19] MEDS: INSULIN DETEMIR 100 UNITS/ML MDV SQ SCH (06:10)
[2016-07-19] MEDS: FUROSEMIDE 40 MG TABLET (FP) PO SCH ×2 (06:10→13:16)
[2016-07-19 07:27] LABS: BASOPHIL 0.2 % (0-2.0); EOSINOPHIL 0.5 % (0-4.5); MCH 29.7 pg (25.7-33.7); MCHC 32.7 g/dl (32.0-35.9); MEAN CELL VOLUME 90.9 fl (80-96); MEAN PLT VOLUME 9.2 fl (7.5-11.1); NEUTROPHILS 79.1 % (42.8-82.8); PLATELET COUNT 223 K/MM3 (134-434); RDW 14.4 % (11.9-15.9); WHITE BLOOD COUNT 15.8 K/mm3 (4.0-10.0)
[2016-07-19 08:00] LABS: ALK PHOS 75 U/L (45-117); ANION GAP 8 (8-16); BILIRUBIN,TOTAL 0.6 mg/dL (0.2-1.0); CO2 33 mmol/L (21-32); DIGOXIN LEVEL 0.5733 ng/ml (0.8-2.0); GLUCOSE,RANDOM 99 mg/dL (74-106); SGOT/AST 8 U/L (15-37); SGPT/ALT 28 U/L (12-78); TOT PROT 5.9 g/dl (6.4-8.2)
[2016-07-19] MEDS: TAMSULOSIN HCL 0.4 MG CAP.ER.24H (FP) PO SCH (09:34)
[2016-07-19] MEDS: APIXABAN 5 MG TABLET PO SCH (09:34)
[2016-07-19] MEDS: predniSONE 20 MG TABLET (UD) PO SCH (09:34)
[2016-07-19] MEDS: DIGOXIN 0.125 MG TABLET (FP) PO SCH (09:34)
[2016-07-19] MEDS: BUDESONIDE/FORMETEROL FUMARATE 160/4.5 mcg INHALER IH SCH (09:35)
[2016-07-19] MEDS: VERAPAMIL HCL 240 MG E.R. TABLET (FP) PO SCH (09:39)
--- NOTE | 2016-07-19 11:03 | PN ---
Progress Note, Physician History of Present Illness: PULMONARY ALERT,NAD,-SOB - Current Medication List Current Medications: Active Medications Acetaminophen (Tylenol -) 650 mg PO Q6H PRN PRN Reason: FEVER OR PAIN Last Admin: 07/18/16 17:09 Dose: 650 mg Apixaban (Eliquis -) 5 mg PO BID [facility] Last Admin: 07/19/16 09:34 Dose: 5 mg Atorvastatin Calcium (Lipitor -) 10 mg PO HS [facility] Last Admin: 07/18/16 21:54 Dose: 10 mg Budesonide/Formoterol Fumarate (Symbicort 160/4.5mcg -) 2 puff IH BID [facility] Last Admin: 07/19/16 09:35 Dose: 2 puff Digoxin (Lanoxin -) 0.125 mg PO DAILY [facility] Last Admin: 07/19/16 09:34 Dose: 0.125 mg Diltiazem HCl (Cardizem Injection -) 5 mg IVPUSH Q4H PRN PRN Reason: TACHYCARDIA Furosemide (Lasix -) 40 mg PO BID@0600,1400 [facility] Last Admin: 07/19/16 06:10 Dose: 40 mg Gabapentin (Neurontin -) 100 mg PO TID [facility] Last Admin: 07/19/16 06:10 Dose: 100 mg Insulin Aspart (Novolog Vial Sliding Scale -) 1 vial SQ ACHS [facility] PRN Reason: Protocol Last Admin: 07/19/16 06:10 Dose: Not Given Insulin Detemir (Levemir Vial) 23 units SQ BIDI [facility] Last Admin: 07/19/16 06:10 Dose: 23 units Prednisone (Deltasone -) 40 mg PO DAILY [facility] Last Admin: 07/19/16 09:34 Dose: 40 mg Tamsulosin HCl (Flomax -) 0.4 mg PO DAILY@0830 [facility] Last Admin: 07/19/16 09:34 Dose: 0.4 mg Verapamil HCl (Calan Sr -) 240 mg PO BID [facility] Last Admin: 07/19/16 09:39 Dose: 240 mg - Objective Vital Signs: Vital Signs Temperature 97.3 F L 07/19/16 06:18 Pulse Rate 96 H 07/19/16 09:34 Respiratory Rate 18 07/19/16 06:18 Blood Pressure 132/67 07/19/16 06:18 O2 Sat by Pulse Oximetry (%) 94 L 07/18/16 22:00 Constitutional: Yes: Well Nourished, Calm Eyes: Yes: WNL HENT: Yes: WNL Neck: Yes: WNL Cardiovascular: Yes: Pulse Irregular, S1, S2 Respiratory: Yes: Diminished Gastrointestinal: Yes: WNL Extremities: Yes: WNL Edema: No Labs: CBC, BMP 07/19/16 05:35 07/19/16 05:35 Problem List - Problems (1) Acute CHF Code(s): I50.9 - HEART FAILURE, UNSPECIFIED Qualifiers: Congestive heart failure type: unspecified congestive heart failure type Qualified Code(s): I50.9 - Heart failure, unspecified (2) Atrial fibrillation Code(s): I48.91 - UNSPECIFIED ATRIAL FIBRILLATION Qualifiers: Atrial fibrillation type: unspecified Qualified Code(s): I48.91 - Unspecified atrial fibrillation (3) COPD (chronic obstructive pulmonary disease) Code(s): J44.9 - CHRONIC OBSTRUCTIVE PULMONARY DISEASE, UNSPECIFIED Qualifiers : COPD type: unspecified COPD Qualified Code(s): J44.9 - Chronic obstructive pulmonary disease, unspecified (4) Diabetes mellitus Code(s): E11.9 - TYPE 2 DIABETES MELLITUS WITHOUT COMPLICATIONS (5) Acute exacerbation of chronic obstructive pulmonary disease (COPD) Code(s): J44.1 - CHRONIC OBSTRUCTIVE PULMONARY DISEASE W (ACUTE) EXACERBATION (6) Dyspnea Code(s): R06.00 - DYSPNEA, UNSPECIFIED Qualifiers: (7) Edema Code(s): R60.9 - EDEMA, UNSPECIFIED (8) HTN (hypertension) Code(s): I10 - ESSENTIAL (PRIMARY) HYPERTENSION (9) Hypoxemia Code(s): R09.02 - HYPOXEMIA (10) Morbid obesity Code(s): E66.01 - MORBID (SEVERE) OBESITY DUE TO EXCESS CALORIES (11) Obstructive sleep apnea Code(s): G47.33 - OBSTRUCTIVE SLEEP APNEA (ADULT) (PEDIATRIC) (12) Acute on chronic respiratory failure with hypoxemia Code(s): J96.21 - ACUTE AND CHRONIC RESPIRATORY FAILURE WITH HYPOXIA Assessment/Plan IMP ACUTE ON CHRONIC HYPOXEMIC RESPIRATORY FAILURE IMPROVED DECOMPENSATED CHF IMPROVED COPD ON O2 AFIB DM LUCY HTN PLAN LASIX 40mg PO BID INHALED BRONCHODILATORS RATE CONTROL PER CARDIOLOGY STEROIDS DAILY WTS BIPAP AT NIGHT AND PRN DR STACK Problem List - Problems (1) Acute CHF Code(s): I50.9 - HEART FAILURE, UNSPECIFIED Qualifiers: Congestive heart failure type: unspecified congestive heart failure type Qualified Code(s): I50.9 - Heart failure, unspecified (2) Atrial fibrillation Code(s): I48.91 - UNSPECIFIED ATRIAL FIBRILLATION Qualifiers: Atrial fibrillation type: unspecified Qualified Code(s): I48.91 - Unspecified atrial fibrillation (3) COPD (chronic obstructive pulmonary disease) Code(s): J44.9 - CHRONIC OBSTRUCTIVE PULMONARY DISEASE, UNSPECIFIED Qualifiers : COPD type: unspecified COPD Qualified Code(s): J44.9 - Chronic obstructive pulmonary disease, unspecified (4) Diabetes mellitus Code(s): E11.9 - TYPE 2 DIABETES MELLITUS WITHOUT COMPLICATIONS (5) Acute exacerbation of chronic obstructive pulmonary disease (COPD) Code(s): J44.1 - CHRONIC OBSTRUCTIVE PULMONARY DISEASE W (ACUTE) EXACERBATION (6) Dyspnea Code(s): R06.00 - DYSPNEA, UNSPECIFIED Qualifiers: (7) Edema Code(s): R60.9 - EDEMA, UNSPECIFIED (8) HTN (hypertension) Code(s): I10 - ESSENTIAL (PRIMARY) HYPERTENSION (9) Hypoxemia Code(s): R09.02 - HYPOXEMIA (10) Morbid obesity Code(s): E66.01 - MORBID (SEVERE) OBESITY DUE TO EXCESS CALORIES (11) Obstructive sleep apnea Code(s): G47.33 - OBSTRUCTIVE SLEEP APNEA (ADULT) (PEDIATRIC) (12) Acute on chronic respiratory failure with hypoxemia Code(s): J96.21 - ACUTE AND CHRONIC RESPIRATORY FAILURE WITH HYPOXIA
--- NOTE | 2016-07-19 11:03 | PN ---
Progress Note, Physician Chief Complaint: LAYING FLAT IN BED "FEELS GREAT" "BREATHING IS BETTER TODAY THAN PAST ADMISSIONS" WANTS TO GO HOME - Current Medication List Current Medications: Active Medications Acetaminophen (Tylenol -) 650 mg PO Q6H PRN PRN Reason: FEVER OR PAIN Last Admin: 07/18/16 17:09 Dose: 650 mg Apixaban (Eliquis -) 5 mg PO BID [facility] Last Admin: 07/19/16 09:34 Dose: 5 mg Atorvastatin Calcium (Lipitor -) 10 mg PO HS [facility] Last Admin: 07/18/16 21:54 Dose: 10 mg Budesonide/Formoterol Fumarate (Symbicort 160/4.5mcg -) 2 puff IH BID [facility] Last Admin: 07/19/16 09:35 Dose: 2 puff Digoxin (Lanoxin -) 0.125 mg PO DAILY [facility] Last Admin: 07/19/16 09:34 Dose: 0.125 mg Diltiazem HCl (Cardizem Injection -) 5 mg IVPUSH Q4H PRN PRN Reason: TACHYCARDIA Furosemide (Lasix -) 40 mg PO BID@0600,1400 [facility] Last Admin: 07/19/16 06:10 Dose: 40 mg Gabapentin (Neurontin -) 100 mg PO TID [facility] Last Admin: 07/19/16 06:10 Dose: 100 mg Insulin Aspart (Novolog Vial Sliding Scale -) 1 vial SQ ACHS [facility] PRN Reason: Protocol Last Admin: 07/19/16 06:10 Dose: Not Given Insulin Detemir (Levemir Vial) 23 units SQ BIDI [facility] Last Admin: 07/19/16 06:10 Dose: 23 units Prednisone (Deltasone -) 40 mg PO DAILY [facility] Last Admin: 07/19/16 09:34 Dose: 40 mg Tamsulosin HCl (Flomax -) 0.4 mg PO DAILY@0830 [facility] Last Admin: 07/19/16 09:34 Dose: 0.4 mg Verapamil HCl (Calan Sr -) 240 mg PO BID [facility] Last Admin: 07/19/16 09:39 Dose: 240 mg - Objective Vital Signs: Vital Signs Temperature 97.3 F L 07/19/16 06:18 Pulse Rate 96 H 07/19/16 09:34 Respiratory Rate 18 07/19/16 06:18 Blood Pressure 132/67 07/19/16 06:18 O2 Sat by Pulse Oximetry (%) 94 L 07/18/16 22:00 Cardiovascular: Yes: S1, S2 Respiratory: Yes: CTA Bilaterally Gastrointestinal: Yes: Normal Bowel Sounds, Soft Edema: Yes Labs: CBC, BMP 07/19/16 05:35 07/19/16 05:35 Problem List - Problems (1) Acute CHF Code(s): I50.9 - HEART FAILURE, UNSPECIFIED Qualifiers: Congestive heart failure type: unspecified congestive heart failure type Qualified Code(s): I50.9 - Heart failure, unspecified (2) Acute on chronic respiratory failure with hypoxemia Code(s): J96.21 - ACUTE AND CHRONIC RESPIRATORY FAILURE WITH HYPOXIA (3) Asthma Code(s): J45.909 - UNSPECIFIED ASTHMA, UNCOMPLICATED (4) Atrial fibrillation Code(s): I48.91 - UNSPECIFIED ATRIAL FIBRILLATION Qualifiers: Atrial fibrillation type: unspecified Qualified Code(s): I48.91 - Unspecified atrial fibrillation (5) COPD (chronic obstructive pulmonary disease) Code(s): J44.9 - CHRONIC OBSTRUCTIVE PULMONARY DISEASE, UNSPECIFIED Qualifiers : COPD type: unspecified COPD Qualified Code(s): J44.9 - Chronic obstructive pulmonary disease, unspecified (6) Diabetes mellitus Code(s): E11.9 - TYPE 2 DIABETES MELLITUS WITHOUT COMPLICATIONS Assessment/Plan Reason For Visit: COPD, AFIB, A CHF Current Active Problems Acute CHF (Acute) Acute on chronic respiratory failure with hypoxemia (Acute) Asthma (Acute) Atrial fibrillation (Acute) COPD (chronic obstructive pulmonary disease) (Acute) Diabetes mellitus (Acute) Influenza A (Acute) Procedures: Principal: cxr Other Procedures: 02 support Hospital Course: admitted iv abx/lasix/and steroids, acute on chronic systolic decompensated heart failure with edema and acute on chronic copd/asthma, dc home on bipap home therapy, vns sputum mrsa -> isolation - dig level 0.5 -> defer to cardio - sputum +lexie mrsa -> id on case. isolation Condition: Stable - Instructions Diet, Activity, Other Instructions: low sodium Referrals: Mars Brothers MD [Primary Care Provider] - Disposition: [facility]ILITY DISCHARGE WHEN CLEARED BY CARDIO TAPER OPERATOR [facility]
[2016-07-19 11:30] VITALS: BP 143/100; PULSE 81; TEMP 98
--- NOTE | 2016-07-19 11:35 | PN ---
Progress Note, Physician Chief Complaint: chf, afib History of Present Illness: breathing much improved, "night and day" no leg swelling no palpit, cp - Current Medication List Current Medications: Active Medications Acetaminophen (Tylenol -) 650 mg PO Q6H PRN PRN Reason: FEVER OR PAIN Last Admin: 07/18/16 17:09 Dose: 650 mg Apixaban (Eliquis -) 5 mg PO BID [facility] Last Admin: 07/19/16 09:34 Dose: 5 mg Atorvastatin Calcium (Lipitor -) 10 mg PO HS [facility] Last Admin: 07/18/16 21:54 Dose: 10 mg Budesonide/Formoterol Fumarate (Symbicort 160/4.5mcg -) 2 puff IH BID [facility] Last Admin: 07/19/16 09:35 Dose: 2 puff Digoxin (Lanoxin -) 0.125 mg PO DAILY [facility] Last Admin: 07/19/16 09:34 Dose: 0.125 mg Diltiazem HCl (Cardizem Injection -) 5 mg IVPUSH Q4H PRN PRN Reason: TACHYCARDIA Furosemide (Lasix -) 40 mg PO BID@0600,1400 [facility] Last Admin: 07/19/16 06:10 Dose: 40 mg Gabapentin (Neurontin -) 100 mg PO TID [facility] Last Admin: 07/19/16 06:10 Dose: 100 mg Insulin Aspart (Novolog Vial Sliding Scale -) 1 vial SQ ACHS [facility] PRN Reason: Protocol Last Admin: 07/19/16 06:10 Dose: Not Given Insulin Detemir (Levemir Vial) 23 units SQ BIDI [facility] Last Admin: 07/19/16 06:10 Dose: 23 units Prednisone (Deltasone -) 40 mg PO DAILY [facility] Last Admin: 07/19/16 09:34 Dose: 40 mg Tamsulosin HCl (Flomax -) 0.4 mg PO DAILY@0830 [facility] Last Admin: 07/19/16 09:34 Dose: 0.4 mg Verapamil HCl (Calan Sr -) 240 mg PO BID [facility] Last Admin: 07/19/16 09:39 Dose: 240 mg - Objective Vital Signs: Vital Signs Temperature 98 F 07/19/16 10:00 Pulse Rate 81 07/19/16 10:25 Respiratory Rate 18 07/19/16 10:00 Blood Pressure 143/100 07/19/16 10:00 O2 Sat by Pulse Oximetry (%) 97 07/19/16 10:25 Constitutional: Yes: No Distress, Calm, Obese Cardiovascular: Yes: Pulse Irregular (decr intensity, chronic (copd)), S1, S2. No: Gallop, Murmur Respiratory: Yes: Regular (decr intensity, chronic (copd)), CTA Bilaterally. No : Accessory Muscle Use, Rales, Wheezes Extremities: No: Cold Edema: No Neurological: Yes: Alert, Oriented Psychiatric: No: Agitated Labs: CBC, BMP 07/19/16 05:35 07/19/16 05:35 - ....Imaging EKG: Other (telem: AF, mostly controlled HRs--few times yest and this am incr HR to 130s) Assessment/Plan LIANNE 12/24 (at [facility]): low-nl LVEF (? due to afib); mild RV hypo; mild AI Echo 08/2015: tds, nl lv/rv, no sig valve path mibi 12/2012: small posterior ischemia vs artifact, nl lvef, no tid 10/2015 CT scan negative for PE a/p: 71 yo male with h/o AFib s/p prior DCCV 12/2015 to SR on AC, HTN, HL, PVCs with palpitations, morbid obesity, NATHANIEL on bipap, severe COPD, here with sob. acute hypoxic resp failure, severe COPD on home O2, acute diastolic chf: - copd being tx'd with steroids and BDs - diuresed with iv lasix for ? volume overload as well (recent 10 lb wt gain at home few days prior to admit) - declines po torsemide ("too strong"); previously declined bid lasix dosing, now willing to take bid PO as outpt - has been stable on lasix 40 po bid since 07/16 - no signs of acs - copd/nathaniel tx per pmd/pulm - will plan repeat echo as outpatient (to guide AF tx decisions as well, if evidence of persistent/progressive tachy-CMP) paroxysmal AF/flutter -cont eliquis for AC -new dx 2015--req'd amio for HR control (now off due to severe lung dz), s/p successful DCCV 12/24 -rapid afib here with activity--calan incr'd from 360 qd to 240 bid, dig added ( levels good) -cont same meds -avoiding BB given severe bronchospasm/copd; would like to avoid long-term amio for same reason -? candidate for flecainide if rpt MPI can be done when more stable and no ischemia -if cannot adequately control HR, may need consider AVN ablation/PPM -d/w'd pt would like to defer escalation of AF meds or invasive tx unless tachy burden when at home is higher than what is currently being seen on tele (which is possible, once he's more active)--he agrees to schedule outpt holter with me when leaves, and will have f/u office visit and consider EP referral at that time hld: -continue statin htn: -stable on current meds -cont same ?cad: -pt had borderline positive mibi in 2012 -never had angina sx's -CE's neg here x 1. EKG without ischemic changes. -continue medical management with statin, ASA OK FOR D/C FROM [facility] P.O.V.
== END 2016-07-19 13:34 | disposition home or self-care (01) | DRG 291 ==
LOC: JER 13:52 → JERBED 17:03 → UNDOADMIN 17:03 → JERBED 17:57 → J4W 20:40 → JERBED 07-17 13:44 → J4W 07-17 13:45
PROVIDERS: ADMIT Family Medicine; ATTEND Family Medicine
PROC: 5A09557 Assistance with Respiratory Ventilation, Greater than 96 Consecutive Hours, Continuous Positive Airway Pressure (ICD-10-PCS; principal; 2016-07-13)
DX: I11.0 Hypertensive heart disease with heart failure (principal); J96.21 Acute and chronic respiratory failure with hypoxia; J44.1 Chronic obstructive pulmonary disease with (acute) exacerbation; I48.92 Unspecified atrial flutter; J45.901 Unspecified asthma with (acute) exacerbation; Z68.42 Body mass index [BMI] 45.0-49.9, adult; I48.0 Paroxysmal atrial fibrillation; I50.23 Acute on chronic systolic (congestive) heart failure; E78.5 Hyperlipidemia, unspecified; E11.9 Type 2 diabetes mellitus without complications; J11.1 Influenza due to unidentified influenza virus with other respiratory manifestations; E66.01 Morbid (severe) obesity due to excess calories; G47.33 Obstructive sleep apnea (adult) (pediatric); D72.829 Elevated white blood cell count, unspecified; I42.9 Cardiomyopathy, unspecified; Z79.4 Long term (current) use of insulin
CPT/HCPCS: 36415; 71010-TC; 80048; 80053; 80162; 82550; 83735; 83880; 84484; 85025; 85027; 87040; 87070; 87186; 87205; 87899; 93005; 93010; 94660; 97116-GP; 97163-GP; 99284-25

== ENCOUNTER 2016-08-05 10:17 | Inpatient (IN) | payer OTHER ==
--- NOTE | 2016-08-05 11:05 | PDOC ---
History of Present Illness - History of Present Illness Initial Comments: 08/05/16 11:19 The patient is a 71 year old male with a past medical hx of CAD, Coarse AFIB, chronic ischemic heart disease, cardiomyopathy, fatty liver, COPD (emphysema), diabetes and HLD who presents to the ED complaining of shortness of breath since this morning. The patient notes this morning he was at his Doctors appointment for an echocardiogram. The patient reports afterwards he was standing outside the office and started to feel short of breath. He reports he was unable to catch his breath and then came to the ED for further evaluation. He states he does not know the results of his echocardiogram. The patient did not take his Lasix today. The patient denies chest pain The patient denies fever, chills The patient denies nausea, vomiting, diarrhea Allergies: NKDA Social: Former smoker Surgical: bilateral knee surgery, right knee 1974, left knee 1979 PCP: Dr. Mars Brothers <Chanelle Palm - Last Filed: 08/05/16 13:12> <Hernando Villalobos - Last Filed: 08/05/16 13:49> - General Chief Complaint: Shortness of Breath Stated Complaint: SOB Past History <Chanelle Palm - Last Filed: 08/05/16 13:12> - Past Medical History Anemia: No Cardiac Disorders: Yes (CAD, COARSE A.FIBRILATION, CHRONIC ISCHEMIC HEART DISEASE, CARDIOMYOPATHY) COPD: Yes (EMPHYSEMA) Diabetes: Yes (IDDM) Hypercholesterolemia: Yes Liver Disease: Yes (FATTY LIVER) Suicide Attempt (Hx): No - Surgical History Orthopedic Surgery: Yes (bilateral knee surgery 1974 left knee 1979) - Family Disease History Family Disease History: Heart Disease: Father - Immunization History Immunization Up to Date: Yes - Psycho/Social/Smoking Cessation Hx Anxiety: No Suicidal Ideation: No Smoking Status: Yes (QUIT 2011) Smoking History: Former smoker Have you smoked in the past 12 months: No Number of Cigarettes Smoked Daily: 0 If you are a former smoker, when did you quit?: 6 years ago Cigars Per Day: 0 Information on smoking cessation initiated: No Hx Alcohol Use: No Drug/Substance Use Hx: No Substance Use Type: None Hx Substance Use Treatment: No <Hernando Villalobos - Last Filed: 08/05/16 13:49> - Past Medical History Allergies/Adverse Reactions: Allergies Allergy/AdvReac Type Severity Reaction Status Date / Time No Known Allergies Allergy Verified 08/05/16 10:27 Home Medications: Ambulatory Orders Atorvastatin Ca [Lipitor] 10 mg PO HS tablet 08/23/15 Albuterol 0.083% Nebulizer Cielo [Ventolin 0.083% Nebulizer Soln -] 1 amp NEB PRN 06/25/16 Levalbuterol Tartrate [Xopenex Hfa] 2 puff IH PRN 06/25/16 Budesonide/Formeterol Fumarate [SYMBICORT 160/4.5mcg -] 2 puff IH BID inhaler 06/30/16 Acetaminophen [Tylenol .Regular Strength -] 650 mg PO Q6H PRN #0 tablet Apixaban [Eliquis -] 5 mg PO BID tablet 07/15/16 Insulin (Levemir) [Levemir Vial] 23 units SQ BIDI ml 07/15/16 Tamsulosin HCl [Flomax -] 0.4 mg PO DAILY@0830 cap.er.24h 07/15/16 Furosemide [Lasix -] 40 mg PO BID@0600,1400 #60 tablet 07/19/16 Gabapentin [Neurontin -] 100 mg PO TID #90 capsule 07/19/16 Verapamil HCl ER [Calan Sr -] 240 mg PO BID #60 tablet.er 07/19/16 Insulin (Novolog) [Novolog Flexpen] 0 units SQ ACHS 08/05/16 Review of Systems - Review of Systems Able to Perform ROS?: Yes Comments:: 08/05/16 11:21 CONSTITUTIONAL: Absent: fever, chills, diaphoresis, generalized weakness, malaise, loss of appetite HEENT: Absent: rhinorrhea, nasal congestion, throat pain, throat swelling, difficulty swallowing, mouth swelling, ear pain, eye pain, visual Changes CARDIOVASCULAR: Absent: chest pain, syncope, palpitations, irregular heart rate, lightheadedness , peripheral edema RESPIRATORY: +Shortness of breath. Absent: cough, orthopnea, wheezing, stridor, hemoptysis GASTROINTESTINAL: Absent: abdominal pain, abdominal distension, nausea, vomiting, diarrhea, constipation, melena, hematochezia GENITOURINARY: Absent: dysuria, frequency, urgency, hesitancy, hematuria, flank pain, genital pain MUSCULOSKELETAL: Absent: myalgia, arthralgia, joint swelling SKIN: Absent: rash, itching, pallor NEUROLOGIC: Absent: headache, focal weakness or paresthesias, dizziness, unsteady gait, seizure, mental status changes, bladder or bowel incontinence PSYCHIATRIC: Absent: anxiety, depression, suicidal or homicidal ideation, hallucinations. Decreased breath sounds bilaterally <Letty Palmyn - Last Filed: 08/05/16 13:12> *Physical Exam - Vital Signs Last Vital Signs Temp Pulse Resp BP Pulse Ox 97.9 F 75 24 105/84 95 08/05/16 10:28 08/05/16 10:28 08/05/16 10:28 08/05/16 10:28 08/05/16 10:28 - Physical Exam Comments: 08/05/16 11:22 GENERAL: +Speaking full and clear sentences. Well developed, well nourished. Awake and alert. In no acute distress. HEENT: Normocephalic, atraumatic. PERRLA, EOMI. No conjunctival pallor. Sclera are non- icteric. Moist mucous membranes. Oropharynx is clear. NECK: Supple. Full ROM. No JVD. Carotid pulses 2+ and symmetric, without bruits. No thyromegaly. No lymphadenopathy. CARDIOVASCULAR: Regular rate and rhythm. No murmurs, rubs, or gallops. Distal pulses are 2+ and symmetric. PULMONARY: +Decreased breath sounds bilaterally, not moving a lot of air. No evidence of respiratory distress. Lungs clear to auscultation bilaterally. No wheezing, rales or rhonchi. ABDOMINAL: +Obese. Soft. Non-tender. No rebound or guarding. No organomegaly. Normoactive bowel sounds. MUSCULOSKELETAL Normal range of motion at all joints. No bony deformities or tenderness. No CVA tenderness. EXTREMITIES: +Bilateral lower extremity 2+ pitting edema. No cyanosis. No clubbing. No calf tenderness. SKIN: Warm and dry. Normal capillary refill. No rashes. No jaundice. NEUROLOGICAL: Alert, awake, appropriate. Cranial nerves 2-12 intact. No deficits to light touch and temperature in face, upper extremities and lower extremities. No motor deficits in the in face, upper extremities and lower extremities. Normoreflexic in the upper and lower extremities. Normal speech. PSYCHIATRIC: Cooperative. Good eye contact. Appropriate mood and affect. <Chanelle Palm - Last Filed: 08/05/16 13:12> - Vital Signs Last Vital Signs Temp Pulse Resp BP Pulse Ox 97.9 F 75 24 105/84 95 08/05/16 10:28 08/05/16 10:28 08/05/16 10:28 08/05/16 10:28 08/05/16 10:28 <Hernando Villalobos - Last Filed: 08/05/16 13:49> ED Treatment Course - LABORATORY CBC & Chemistry Diagram: 08/05/16 11:40 08/05/16 11:40 - RADIOLOGY Radiograph Interpretation: 08/05/16 13:12 Chest X-Ray IMPRESSION: No findings of CHF or pneumonia identified No atelectasis or effusion No edema in the lungs No pneumothorax or acute changes identified. Reported By: Smooth Willis MD 08/05/16 1310 <Chanelle Palm - Last Filed: 08/05/16 13:12> - LABORATORY CBC & Chemistry Diagram: 08/05/16 11:40 08/05/16 11:40 <Hernando Villalobos - Last Filed: 08/05/16 13:49> *DC/Admit/Observation/Transfer - Attestations Scribe Attestion: 08/05/16 11:20 Documentation prepared by Chanelle Palm, acting as manager medical writing for Hernando Villalobos MD, MD/DO. <Chanelle Palm - Last Filed: 08/05/16 13:12> - Discharge Dispostion Admit: Yes <Hernando Villalobos - Last Filed: 08/05/16 13:49> Diagnosis at time of Disposition: Acute exacerbation of chronic obstructive pulmonary disease (COPD) - Discharge Dispostion Condition at time of disposition: Guarded - Referrals Referrals: Mars Brothers MD [Primary Care Provider] -
[2016-08-05] MEDS ORDERED: FUROSEMIDE 40 MG/4 ML INJECTABLE VIAL IVPUSH ONE (11:12)
[2016-08-05] MEDS ORDERED: FUROSEMIDE 40 MG/4 ML INJECTABLE VIAL ONE (11:33)
[2016-08-05 11:48] LABS: BASOPHIL 0.6 % (0-2.0); EOSINOPHIL 0.4 % (0-4.5); MCH 30.2 pg (25.7-33.7); MCHC 33.8 g/dl (32.0-35.9); MEAN CELL VOLUME 89.4 fl (80-96); MEAN PLT VOLUME 8.3 fl (7.5-11.1); NEUTROPHILS 86.4 % (42.8-82.8); PLATELET COUNT 187 K/MM3 (134-434); RDW 14.9 % (11.9-15.9); WHITE BLOOD COUNT 10.8 K/mm3 (4.0-10.0)
[2016-08-05 12:19] LABS: ALBUMIN 3.6 g/dl (3.4-5.0); ANION GAP 9 (8-16); BILIRUBIN,TOTAL 0.6 mg/dL (0.2-1.0); CALCIUM 9.4 mg/dL (8.5-10.1); CO2 29 mmol/L (21-32); CREATININE 1.1 mg/dL (0.7-1.3); GLUCOSE,RANDOM 168 mg/dL (74-106); SGPT/ALT 34 U/L (12-78); TOT PROT 6.9 g/dl (6.4-8.2)
[2016-08-05 12:25] LABS: ALK PHOS 86 U/L (45-117); TROPONIN I < 0.02 ng/ml (0.00-0.05)
[2016-08-05] MEDS ORDERED: methylPREDNISolone NA SUCC 125 MG/2 ML VIAL IVPB ONE (12:29)
[2016-08-05 12:30] LABS: SGOT/AST 20 U/L (15-37)
[2016-08-05 12:31] LABS: DIGOXIN LEVEL 0.6779 ng/ml (0.8-2.0)
[2016-08-05] MEDS: ALBUTEROL SO4 0.083% IH SOL 2.5 MG/3 ML VIAL.NEB. NEB SCH ×3 (12:45→13:11)
[2016-08-05] MEDS ORDERED: methylPREDNISolone NA SUCC 125 MG/2 ML VIAL ONE (13:08)
[2016-08-05] MEDS ORDERED: ALBUTEROL SO4 0.083% IH SOL 2.5 MG/3 ML VIAL.NEB. NEB ONE (13:08)
[2016-08-05] MEDS ORDERED: ALBUTEROL SO4 2.5/IPRATROPIUM 0.5 INH SOL 3 ML VIAL.NEB. NEB PRN (13:55)
[2016-08-05] MEDS ORDERED: ACETAMINOPHEN 325 MG TABLET (FP) PO PRN (13:55)
--- NOTE | 2016-08-05 14:09 | EKG ---
Test Reason : Blood Pressure : / mmHG Vent. Rate : 087 BPM Atrial Rate : 077 BPM P-R Int : 000 ms QRS Dur : 102 ms QT Int : 340 ms P-R-T Axes : 000 057 048 degrees QTc Int : 409 ms ATRIAL FIBRILLATION NONSPECIFIC ST AND T WAVE ABNORMALITY ABNORMAL ECG WHEN COMPARED WITH ECG OF 15-JUL-2016 12:53, NO SIGNIFICANT CHANGE WAS FOUND Confirmed by MCKAY MEJÍA MD ([id number]) on 08/05/2016 2:09:13 PM Referred By: Confirmed By:MCKAY MEJÍA MD
--- NOTE | 2016-08-05 15:02 | CON.CARD ---
Cardiology Consult (text) - Consultation Consultation Note: CC: SOB 71 yo male with h/o AFib s/p prior DCCV 12/2015 to SR on AC, HTN, HL, morbid obesity, NATHANIEL on bipap, severe COPD, here with sob. Diuresed briefly with lasix 80 mg IV BID on last admission then transitioned to lasix 40 mg bid. D/c weight 338 lbs. Patient states has been reasonably stable at home. Takes lasix daily (instead of bid) about every other day. Had felt well up until today. s/p IV lasix 40 mg and steroids in ER. no cp, orthopnea, pnd, palps, dizziness, claudication, bleeding or transient neurologic symptoms No f/c/s, n/v/d, h/a, rashes, no congestion, myalgias. PMH:per hpi past surg hx: Tonsillectomy Social hx: Former smoker fam hx: father with CVA ros: per hpi Ambulatory Orders Atorvastatin Ca [Lipitor] 10 mg PO HS tablet 08/23/15 Albuterol 0.083% Nebulizer Cielo [Ventolin 0.083% Nebulizer Soln -] 1 amp NEB PRN 06/25/16 Levalbuterol Tartrate [Xopenex Hfa] 2 puff IH PRN 06/25/16 Budesonide/Formeterol Fumarate [SYMBICORT 160/4.5mcg -] 2 puff IH BID inhaler 06/30/16 Acetaminophen [Tylenol .Regular Strength -] 650 mg PO Q6H PRN #0 tablet Apixaban [Eliquis -] 5 mg PO BID tablet 07/15/16 Insulin (Levemir) [Levemir Vial] 23 units SQ BIDI ml 07/15/16 Tamsulosin HCl [Flomax -] 0.4 mg PO DAILY@0830 cap.er.24h 07/15/16 Furosemide [Lasix -] 40 mg PO BID@0600,1400 #60 tablet 07/19/16 Gabapentin [Neurontin -] 100 mg PO TID #90 capsule 07/19/16 Verapamil HCl ER [Calan Sr -] 240 mg PO BID #60 tablet.er 07/19/16 Insulin (Novolog) [Novolog Flexpen] 0 units SQ ACHS 08/05/16 Current Medications Acetaminophen (Tylenol -) 650 mg PO Q6H PRN PRN Reason: FEVER OR PAIN Albuterol/Ipratropium (Duoneb -) 1 amp NEB Q6H PRN PRN Reason: SHORTNESS OF BREATH Apixaban (Eliquis -) 5 mg PO BID ARVIND Atorvastatin Calcium (Lipitor -) 40 mg PO HS COUNTS INCLUDE 234 BEDS AT THE [facility] Budesonide/Formoterol Fumarate (Symbicort 160/4.5mcg -) 2 puff IH BID RAVIND Furosemide (Lasix -) 40 mg PO BID@0600,1400 ARVIND Gabapentin (Neurontin -) 100 mg PO TID COUNTS INCLUDE 234 BEDS AT THE [facility] Insulin Aspart (Novolog Vial Sliding Scale -) 1 vial SQ ACHS ARVIND PRN Reason: Protocol Insulin Detemir (Levemir Vial) 23 units SQ HS COUNTS INCLUDE 234 BEDS AT THE [facility] Tamsulosin HCl (Flomax -) 0.4 mg PO DAILY@0830 ARVIND Verapamil HCl (Calan Sr -) 240 mg PO BID COUNTS INCLUDE 234 BEDS AT THE [facility] Vital Signs - 24 hr 08/05/16 08/05/16 10:28 11:00 Temperature 97.9 F Pulse Rate 75 75 Respiratory 24 Rate Blood Pressure 105/84 O2 Sat by Pulse 95 95 Oximetry (%) Intake & Output 08/03/16 08/04/16 08/05/16 08/06/16 07:59 07:59 07:59 07:59 Weight 345 lb NAD, calm JVD difficult to assess due to size, neck supple diminished BS, exp wheezes, nl effort Irregularly, irregular nl s1, s2 no m/r/g + bs soft obese nt nd ext with trace-1+ edema. no cyanosis or clubbing + dp/pt no jaundice, diaphoresis. CBC, BMP 08/05/16 11:40 08/05/16 11:40 Laboratory Tests 07/12/16 08/05/16 15:53 11:40 Total Bilirubin 0.6 AST 20 D ALT 34 D Alkaline Phosphatase 86 Creatine Kinase 201 D CK-MB (CK-2) 1.812 Troponin I < 0.02 B-Natriuretic Peptide 280.45 H 94.27 Albumin 3.6 Digoxin 0.6779 L EKG: afib 87 bpm. no ischemic changes CXR: no acute pathology echo 07/2016: Nl lv/rv. 1+ AR Echo 08/2015: tds, nl lv/rv, no sig valve path mibi 12/2012: small posterior ischemia vs artifact, nl lvef, no tid 10/2015 CT scan negative for PE 71 yo male with h/o AFib s/p prior DCCV 12/2015 to SR on AC, HTN, HL, PVCs with palpitations, morbid obesity, NATHANIEL on bipap, severe COPD, here with sob. SOB/ severe COPD on home O2, diastolic chf: - No obvious signs of pulmonary edema on CXR. Would get standing weight to better assess volume status. - For now, continue home lasix 40 po bid - no signs of acs - copd/nathaniel tx per pmd/pulm paroxysmal AF/flutter -cont eliquis for AC -new dx 2015--req'd amio for HR control (now off due to severe lung dz), s/p successful DCCV 12/24 -dig added on last admission (levels drawn, no toxicity) -cont same meds -avoiding BB given severe bronchospasm/copd; would like to avoid long-term amio for same reason hld: -continue statin htn: -slighltly low today on current medications. Monitor ?cad: -pt had borderline positive mibi in 2012 -never had angina sx's -CE's neg here x 1. EKG without ischemic changes. -continue medical management with statin, AC
[2016-08-05] MEDS: FUROSEMIDE 40 MG TABLET (FP) PO SCH (17:52)
--- NOTE | 2016-08-05 20:52 | HP ---
Admitting History and Physical - Primary Care Physician PCP: Mars Brothers - Admission Chief Complaint: DYSPNEA History of Present Illness: PATIENT WAS IN THE HOSPITAL FOR OUTPATIENT ECHO AND BECAME EXTREMELY SOB WITH WHEEZES IN MAIN LOBBY AND WAS BROUGHT TO ED FOR EVAL FOUND TO HAVE AN ACUTE ON CHRONIC COPD EXACERBATION AND ADMITTED FOR IV STEROIDS/AND RESP SUPPORT. HISTORY OF ACUTE ON CHRONIC CHF SYSTOLIC FAILURE,ATRIAL FLUTTER/FIB, MORBID OBESITY, DM History Source: Patient - Past Medical History Cardiovascular: Yes: AFIB, HTN, Hyperlipdemia Pulmonary: Yes: COPD, O2 Dependent, Sleep Apnea Endocrine: Yes: Other (MORBIDLY OBESE) - Past Surgical History Past Surgical History: Yes: Tonsillectomy - Smoking History Smoking history: Former smoker Have you smoked in the past 12 months: No Aproximately how many cigarettes per day: 0 If you are a former smoker, when did you quit?: 6 years ago - Alcohol/Substance Use Hx Alcohol Use: No - Social History History of Recent Travel: No Home Medications - Allergies Allergies/Adverse Reactions: Allergies Allergy/AdvReac Type Severity Reaction Status Date / Time No Known Allergies Allergy Verified 08/05/16 10:27 - Home Medications Home Medications: Ambulatory Orders Atorvastatin Ca [Lipitor] 10 mg PO HS tablet 08/23/15 Albuterol 0.083% Nebulizer Cielo [Ventolin 0.083% Nebulizer Soln -] 1 amp NEB PRN 06/25/16 Levalbuterol Tartrate [Xopenex Hfa] 2 puff IH PRN 06/25/16 Budesonide/Formeterol Fumarate [SYMBICORT 160/4.5mcg -] 2 puff IH BID inhaler 06/30/16 Acetaminophen [Tylenol .Regular Strength -] 650 mg PO Q6H PRN #0 tablet Apixaban [Eliquis -] 5 mg PO BID tablet 07/15/16 Insulin (Levemir) [Levemir Vial] 23 units SQ BIDI ml 07/15/16 Tamsulosin HCl [Flomax -] 0.4 mg PO DAILY@0830 cap.er.24h 07/15/16 Furosemide [Lasix -] 40 mg PO BID@0600,1400 #60 tablet 07/19/16 Gabapentin [Neurontin -] 100 mg PO TID #90 capsule 07/19/16 Verapamil HCl ER [Calan Sr -] 240 mg PO BID #60 tablet.er 07/19/16 Insulin (Novolog) [Novolog Flexpen] 0 units SQ ACHS 08/05/16 Review of Systems - Review of Systems Constitutional: reports: Weakness Eyes: reports: No Symptoms HENT: reports: No Symptoms Neck: reports: No Symptoms Cardiovascular: reports: Shortness of Breath Respiratory: reports: Cough, SOB Gastrointestinal: reports: No Symptoms Genitourinary: reports: No Symptoms Musculoskeletal: reports: No Symptoms Integumentary: reports: No Symptoms Neurological: reports: No Symptoms Endocrine: reports: No Symptoms Physical Examination Vital Signs: Vital Signs Temperature 97.9 F 08/05/16 10:28 Pulse Rate 93 H 08/05/16 16:44 Respiratory Rate 24 08/05/16 10:28 Blood Pressure 105/84 08/05/16 10:28 O2 Sat by Pulse Oximetry (%) 96 08/05/16 19:32 Constitutional: Yes: Moderate Distress Eyes: Yes: WNL HENT: Yes: WNL Neck: Yes: WNL Cardiovascular: Yes: Pulse Irregular Respiratory: Yes: Diminished, On Nasal O2, Wheezes Gastrointestinal: Yes: WNL Musculoskeletal: Yes: Muscle Weakness Extremities: Yes: WNL Edema: Yes Peripheral Pulses WNL: Yes Integumentary: Yes: WNL Wound/Incision: Yes: Clean/Dry Neurological: Yes: WNL ...Motor Strength: WNL Psychiatric: Yes: WNL Imaging - Results Chest X-ray: Report Reviewed Problem List - Problems (1) Acute exacerbation of chronic obstructive pulmonary disease (COPD) Code(s): J44.1 - CHRONIC OBSTRUCTIVE PULMONARY DISEASE W (ACUTE) EXACERBATION (2) Diabetes mellitus Code(s): E11.9 - TYPE 2 DIABETES MELLITUS WITHOUT COMPLICATIONS Qualifiers: Diabetes mellitus type: type 2 Diabetes mellitus complication status: with other specified complication (3) Acute on chronic respiratory failure with hypoxemia Code(s): J96.21 - ACUTE AND CHRONIC RESPIRATORY FAILURE WITH HYPOXIA (4) COPD exacerbation Code(s): J44.1 - CHRONIC OBSTRUCTIVE PULMONARY DISEASE W (ACUTE) EXACERBATION (5) Chronic respiratory failure with hypoxia Code(s): J96.11 - CHRONIC RESPIRATORY FAILURE WITH HYPOXIA (6) Dyspnea Code(s): R06.00 - DYSPNEA, UNSPECIFIED Qualifiers: Dyspnea type: shortness of breath Qualified Code(s): R06.02 - Shortness of breath (7) Edema Code(s): R60.9 - EDEMA, UNSPECIFIED (8) Morbid obesity Code(s): E66.01 - MORBID (SEVERE) OBESITY DUE TO EXCESS CALORIES Qualifiers: Obesity type: due to excess calories Qualified Code(s): E66.01 - Morbid (severe) obesity due to excess calories (9) Obstructive sleep apnea Code(s): G47.33 - OBSTRUCTIVE SLEEP APNEA (ADULT) (PEDIATRIC) Assessment/Plan IV STEROIDS NEBS PULM SUPPORT AND CONSULT CARDIOLOGY EVAL BIPAP NOW ID CONSULT FOR ABX?
[2016-08-05] MEDS: APIXABAN 5 MG TABLET PO SCH (23:00)
[2016-08-05] MEDS: VERAPAMIL HCL 240 MG E.R. TABLET (FP) PO SCH (23:00)
[2016-08-05] MEDS: BUDESONIDE/FORMETEROL FUMARATE 160/4.5 mcg INHALER IH SCH (23:00)
[2016-08-05] MEDS: INSULIN DETEMIR 100 UNITS/ML MDV SQ SCH (23:00)
[2016-08-05] MEDS: GABAPENTIN 100 MG CAPSULE (FP) PO SCH (23:00)
[2016-08-05] MEDS ORDERED: HEMOQUE TEST 1 EACH EACH ONE (23:24)
[2016-08-06] MEDS ORDERED: FUROSEMIDE 40 MG TABLET (FP) ONE (06:16)
[2016-08-06] MEDS: GABAPENTIN 100 MG CAPSULE (FP) PO SCH ×4 (06:24→23:01)
[2016-08-06] MEDS: FUROSEMIDE 40 MG TABLET (FP) PO SCH ×2 (06:24→14:50)
[2016-08-06 08:00] LABS: CALCIUM 9.4 mg/dL (8.5-10.1); CREATININE 1.1 mg/dL (0.7-1.3)
[2016-08-06] MEDS: TAMSULOSIN HCL 0.4 MG CAP.ER.24H (FP) PO SCH (10:55)
--- NOTE | 2016-08-06 11:33 | PN ---
Progress Note (short form) - Note Progress Note: s: no cp palps dizzy; sob less today o: Vital Signs Period Temp Pulse Resp BP Sys/Park Pulse Ox Last 24 Hr 98.0 F-98.4 F 74-94 18 107-132/71-74 95-97 NAD, calm JVD difficult to assess due to size, neck supple diminished BS, minimal wheezes, nl effort Irregularly, irregular nl s1, s2 no m/r/g + bs soft obese nt nd ext with trace edema. no cyanosis or clubbing no jaundice, diaphoresis. Current Medications Generic Name Dose Route Start Last Admin Trade Name Freq PRN Reason Stop Dose Admin Acetaminophen 650 mg 08/05/16 13:55 08/05/16 14:25 Tylenol - PO 650 mg Q6H PRN Administration FEVER OR PAIN Albuterol/Ipratropium 1 amp 08/05/16 13:55 Duoneb - NEB Q6H PRN SHORTNESS OF BREATH Apixaban 5 mg 08/05/16 22:00 08/05/16 23:00 Eliquis - PO 5 mg BID ARVIND Administration Atorvastatin Calcium 40 mg 08/05/16 22:00 Lipitor - PO HS ARVIND Budesonide/Formoterol Fumarate 2 puff 08/05/16 14:00 08/05/16 23:00 Symbicort 160/4.5mcg - IH 2 puff BID ARVIND Administration Furosemide 40 mg 08/05/16 14:00 08/06/16 06:24 Lasix - PO 40 mg BID@0600,1400 ARVIND Administration Gabapentin 100 mg 08/05/16 14:00 08/06/16 06:24 Neurontin - PO 100 mg TID ARVIND Administration Insulin Aspart 1 vial 08/05/16 16:30 Novolog Vial Sliding Scale - SQ ACHS ARVIND Protocol Insulin Detemir 23 units 08/05/16 22:00 08/05/16 23:00 Levemir Vial SQ 23 unit HS ARVIND Administration Tamsulosin HCl 0.4 mg 08/06/16 08:30 08/06/16 10:55 Flomax - PO 0.4 mg DAILY@0830 ARVIND Administration Verapamil HCl 240 mg 08/05/16 14:00 08/05/16 23:00 Calan Sr - PO 240 mg BID ARVIND Administration CBC, BMP 08/05/16 11:40 08/06/16 06:27 EKG: afib 87 bpm. no ischemic changes CXR: no acute pathology echo 07/2016: Nl lv/rv. 1+ AR Echo 08/2015: tds, nl lv/rv, no sig valve path mibi 12/2012: small posterior ischemia vs artifact, nl lvef, no tid 10/2015 CT scan negative for PE a/p: 71 yo male with h/o AFib s/p prior DCCV 12/2015 to SR on AC, HTN, HL, PVCs with palpitations, morbid obesity, NATHANIEL on bipap, severe COPD, here with sob. SOB/ severe COPD on home O2, diastolic chf: - No obvious signs of pulmonary edema on CXR and le edema seems at baseline. Wt also near his baseline. - For now, continue home lasix 40 po bid - no signs of acs - copd/nathaniel tx per pmd/pulm paroxysmal AF/flutter -cont eliquis for AC -new dx 2015--req'd amio for HR control (now off due to severe lung dz), s/p successful DCCV 12/24, then reverted to afib -dig added on last admission -rate controlled now, cont same dig and dilt -avoiding BB given severe bronchospasm/copd; would like to avoid long-term amio for same reason hld: -continue statin htn: -stable on current meds ?cad: -pt had borderline positive mibi in 2012 -never had angina sx's -no signs acs here -continue medical management with statin, AC
--- NOTE | 2016-08-06 11:39 | PN ---
Progress Note, Physician - Current Medication List Current Medications: Active Medications Acetaminophen (Tylenol -) 650 mg PO Q6H PRN PRN Reason: FEVER OR PAIN Last Admin: 08/05/16 14:25 Dose: 650 mg Albuterol/Ipratropium (Duoneb -) 1 amp NEB Q6H PRN PRN Reason: SHORTNESS OF BREATH Apixaban (Eliquis -) 5 mg PO BID [facility] Last Admin: 08/05/16 23:00 Dose: 5 mg Atorvastatin Calcium (Lipitor -) 40 mg PO [facility] Budesonide/Formoterol Fumarate (Symbicort 160/4.5mcg -) 2 puff IH BID [facility] Last Admin: 08/05/16 23:00 Dose: 2 puff Furosemide (Lasix -) 40 mg PO BID@0600,1400 [facility] Last Admin: 08/06/16 06:24 Dose: 40 mg Gabapentin (Neurontin -) 100 mg PO TID [facility] Last Admin: 08/06/16 06:24 Dose: 100 mg Insulin Aspart (Novolog Vial Sliding Scale -) 1 vial SQ [facility] PRN Reason: Protocol Insulin Detemir (Levemir Vial) 23 units SQ [facility] Last Admin: 08/05/16 23:00 Dose: 23 unit Tamsulosin HCl (Flomax -) 0.4 mg PO DAILY@0830 [facility] Last Admin: 08/06/16 10:55 Dose: 0.4 mg Verapamil HCl (Calan Sr -) 240 mg PO BID [facility] Last Admin: 08/05/16 23:00 Dose: 240 mg - Objective Vital Signs: Vital Signs Temperature 98.4 F 08/06/16 06:26 Pulse Rate 74 08/06/16 09:46 Respiratory Rate 18 08/06/16 06:26 Blood Pressure 132/74 08/06/16 06:26 O2 Sat by Pulse Oximetry (%) 97 08/06/16 09:46 Cardiovascular: Yes: S1, S2 Respiratory: Yes: Wheezes Gastrointestinal: Yes: Normal Bowel Sounds, Soft Edema: Yes Labs: CBC, BMP 08/06/16 06:27 Problem List - Problems (1) Acute exacerbation of chronic obstructive pulmonary disease (COPD) Code(s): J44.1 - CHRONIC OBSTRUCTIVE PULMONARY DISEASE W (ACUTE) EXACERBATION (2) Acute on chronic respiratory failure with hypoxemia Code(s): J96.21 - ACUTE AND CHRONIC RESPIRATORY FAILURE WITH HYPOXIA (3) Atrial fibrillation Code(s): I48.91 - UNSPECIFIED ATRIAL FIBRILLATION Qualifiers: Atrial fibrillation type: unspecified Qualified Code(s): I48.91 - Unspecified atrial fibrillation (4) Diabetes mellitus Code(s): E11.9 - TYPE 2 DIABETES MELLITUS WITHOUT COMPLICATIONS Qualifiers: Diabetes mellitus type: type 2 Diabetes mellitus complication status: with other specified complication (5) Edema Code(s): R60.9 - EDEMA, UNSPECIFIED (6) Morbid obesity Code(s): E66.01 - MORBID (SEVERE) OBESITY DUE TO EXCESS CALORIES Qualifiers: Obesity type: due to excess calories Qualified Code(s): E66.01 - Morbid (severe) obesity due to excess calories Assessment/Plan (1) Acute exacerbation of chronic obstructive pulmonary disease (COPD) Code(s): J44.1 - CHRONIC OBSTRUCTIVE PULMONARY DISEASE W (ACUTE) EXACERBATION (2) Diabetes mellitus Code(s): E11.9 - TYPE 2 DIABETES MELLITUS WITHOUT COMPLICATIONS Qualifiers: Diabetes mellitus type: type 2 Diabetes mellitus complication status: with other specified complication (3) Acute on chronic respiratory failure with hypoxemia Code(s): J96.21 - ACUTE AND CHRONIC RESPIRATORY FAILURE WITH HYPOXIA (4) COPD exacerbation Code(s): J44.1 - CHRONIC OBSTRUCTIVE PULMONARY DISEASE W (ACUTE) EXACERBATION (5) Chronic respiratory failure with hypoxia Code(s): J96.11 - CHRONIC RESPIRATORY FAILURE WITH HYPOXIA (6) Dyspnea Code(s): R06.00 - DYSPNEA, UNSPECIFIED Qualifiers: Dyspnea type: shortness of breath Qualified Code(s): R06.02 - Shortness of breath (7) Edema Code(s): R60.9 - EDEMA, UNSPECIFIED (8) Morbid obesity Code(s): E66.01 - MORBID (SEVERE) OBESITY DUE TO EXCESS CALORIES Qualifiers: Obesity type: due to excess calories Qualified Code(s): E66.01 - Morbid (severe) obesity due to excess calories (9) Obstructive sleep apnea Code(s): G47.33 - OBSTRUCTIVE SLEEP APNEA (ADULT) (PEDIATRIC) Assessment/Plan IV STEROIDS NEBS PULM SUPPORT AND CONSULT CARDIOLOGY EVAL -> NO AMIO/BB 2/2 BRONCHOSPASM BIPAP NOW ID CONSULT FOR ABX? 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
--- NOTE | 2016-08-06 13:02 | PN ---
Progress Note (short form) - Note Progress Note: PULMONARY CONSULTATION DICTATED 08/06/16 IMP ACUTE ON CHRONIC HYPOXEMIC RESPIRATORY FAILURE END STAGE COPD O2 DEPENDENT WITH ACUTE EXACERBATION AFIB CHF OSAS ON BiPAP HTN DM MORBID OBESITY PLAN IV STEROIDS INHALED BRONCHODILATORS LASIX O2 ANTICOAGULATION DAILY WTS MONITOR BLOOD SUGARS BIPAP AT NIGHT DR STACK Problem List - Problems (1) Acute exacerbation of chronic obstructive pulmonary disease (COPD) Code(s): J44.1 - CHRONIC OBSTRUCTIVE PULMONARY DISEASE W (ACUTE) EXACERBATION (2) Asthma Code(s): J45.909 - UNSPECIFIED ASTHMA, UNCOMPLICATED (3) Diabetes mellitus Code(s): E11.9 - TYPE 2 DIABETES MELLITUS WITHOUT COMPLICATIONS Qualifiers: Diabetes mellitus type: type 2 Diabetes mellitus complication status: with other specified complication (4) Acute CHF Code(s): I50.9 - HEART FAILURE, UNSPECIFIED Qualifiers: Congestive heart failure type: unspecified congestive heart failure type Qualified Code(s): I50.9 - Heart failure, unspecified (5) Acute bronchitis with COPD Code(s): J44.0 - CHRONIC OBSTRUCTIVE PULMON DISEASE W ACUTE LOWER RESP INFCT (6) Acute on chronic respiratory failure with hypoxemia Code(s): J96.21 - ACUTE AND CHRONIC RESPIRATORY FAILURE WITH HYPOXIA (7) Atrial fibrillation Code(s): I48.91 - UNSPECIFIED ATRIAL FIBRILLATION Qualifiers: Atrial fibrillation type: unspecified Qualified Code(s): I48.91 - Unspecified atrial fibrillation (8) Dyspnea Code(s): R06.00 - DYSPNEA, UNSPECIFIED Qualifiers: Dyspnea type: shortness of breath Qualified Code(s): R06.02 - Shortness of breath (9) Edema Code(s): R60.9 - EDEMA, UNSPECIFIED (10) HTN (hypertension) Code(s): I10 - ESSENTIAL (PRIMARY) HYPERTENSION (11) Morbid obesity Code(s): E66.01 - MORBID (SEVERE) OBESITY DUE TO EXCESS CALORIES Qualifiers: Obesity type: due to excess calories Qualified Code(s): E66.01 - Morbid (severe) obesity due to excess calories (12) Obstructive sleep apnea Code(s): G47.33 - OBSTRUCTIVE SLEEP APNEA (ADULT) (PEDIATRIC) (13) Shortness of breath Code(s): R06.02 - SHORTNESS OF BREATH
[2016-08-06] MEDS: APIXABAN 5 MG TABLET PO SCH ×2 (13:04→22:59)
[2016-08-06] MEDS: VERAPAMIL HCL 240 MG E.R. TABLET (FP) PO SCH ×3 (13:04→23:00)
[2016-08-06] MEDS: ATORVASTATIN CA 40 MG TABLET (FP) PO SCH ×2 (13:06→23:01)
[2016-08-06 13:14] VITALS: BMI 48.8
[2016-08-06] MEDS ORDERED: INSULIN (NOVOLOG) ASPART 100 UNITS/ML 10ML VIAL ONE (13:17)
[2016-08-06] MEDS: INSULIN SLIDING SCALE (NOVOLOG) 1 VIAL SQ SCH ×4 (13:19→23:01)
[2016-08-06] MEDS: BUDESONIDE/FORMETEROL FUMARATE 160/4.5 mcg INHALER IH SCH ×3 (13:55→23:03)
[2016-08-06] MEDS: ALBUTEROL SO4 0.083% IH SOL 2.5 MG/3 ML VIAL.NEB. NEB SCH (13:55)
--- NOTE | 2016-08-06 13:56 | CONS ---
DATE OF CONSULTATION: 08/06/2016 REFERRING PHYSICIAN: Mars Brothers MD HISTORY: The patient is a 71-year-old white male with past medical of chronic obstructive pulmonary disease on home O2, obstructive sleep apnea on BiPAP, history of morbid obesity, hypertension, atrial fibrillation status post DCCV on December currently maintained on anticoagulation, hypertension, hyperlipidemia, history of tobacco abuse quit years ago admitted to [facility] with complaint of increasing shortness of breath. The patient on the day of admission he went to outpatient for an outpatient echocardiogram. At that time, he became extremely short of breath with wheezing in the main lobby at which time he was brought to the emergency room. In the ER, he was treated with inhaled bronchodilators and IV steroids with good clinical response and transferred to the medical floor for further management. The patient denies complaints of chest pain, nausea, vomiting, diaphoresis. Denies hemoptysis. Denies any recent fever or URI symptoms. PAST MEDICAL HISTORY: Again, includes advanced COPD on home O2, obstructive sleep apnea on BiPAP, morbid obesity, hyperlipidemia, atrial fibrillation. SOCIAL HISTORY: Tobacco use. Quit 6 years ago. No occupational exposures. CURRENT MEDICATIONS: Include Symbicort 160/4.5, Flomax, Tylenol, Eliquis, gabapentin, DuoNeb, Calan, Lipitor, NovoLog, Levemir, and Lasix. REVIEW OF SYSTEMS: Positive for dyspnea. Positive wheezing. No chest pain, no palpitations, no nausea, no vomiting, no hemoptysis, no abdominal pain. Positive for mild lower extremity edema. PHYSICAL EXAMINATION: General: The patient is an obese male awake and alert. He is comfortable in no acute distress. Vital Signs: He is currently afebrile. Blood pressure is 172/74, respiratory rate is 18, O2 saturation is 97% on 2 L. HEENT: Head is normocephalic and atraumatic. Neck: Supple. Heart: Irregularly irregular with normal S1, S2. Chest: Diminished breath sounds bilaterally with a few scattered bilateral wheezes. Abdomen: Soft. Bowel sounds positive. Extremities: No cyanosis. Bilateral lower extremity edema 1+. LABORATORIES: WBC 10.8, hemoglobin 14.6, hematocrit 43.1 with a platelet count of 187,000. BUN 19, creatinine 1.1. BNP 94. Chest x-ray reveals mild cardiomegaly but no acute infiltrates or effusions. IMPRESSION: 1. Acute on chronic hypoxemic respiratory failure. 2. Decompensated chronic obstructive pulmonary disease. 3. History of atrial fibrillation. 4. History of congestive heart failure. 5. Obstructive sleep apnea on BiPAP. 6. Morbid obesity. 7. Hypertension. 8. Insulin-dependent diabetes mellitus. PLAN: IV steroids. Inhaled bronchodilators. Supplemental O2. Monitor blood sugars. Continue Lasix p.o. Follow daily weighs. Monitor heart rate. Continue anticoagulation. TIFFANY STACK M.D. [id number] MTDD
--- NOTE | 2016-08-06 14:34 | PN ---
Progress Note, Physician Chief Complaint: ID Full note dictated - Current Medication List Current Medications: Active Medications Acetaminophen (Tylenol -) 650 mg PO Q6H PRN PRN Reason: FEVER OR PAIN Last Admin: 08/05/16 14:25 Dose: 650 mg Albuterol/Ipratropium (Duoneb -) 1 amp NEB Q6H PRN PRN Reason: SHORTNESS OF BREATH Apixaban (Eliquis -) 5 mg PO BID [facility] Last Admin: 08/06/16 13:04 Dose: 5 mg Atorvastatin Calcium (Lipitor -) 40 mg PO HS [facility] Last Admin: 08/06/16 13:06 Dose: 40 mg Budesonide/Formoterol Fumarate (Symbicort 160/4.5mcg -) 2 puff IH BID [facility] Last Admin: 08/06/16 13:56 Dose: Not Given Furosemide (Lasix -) 40 mg PO BID@0600,1400 [facility] Last Admin: 08/06/16 06:24 Dose: 40 mg Gabapentin (Neurontin -) 100 mg PO TID [facility] Last Admin: 08/06/16 13:55 Dose: Not Given Insulin Aspart (Novolog Vial Sliding Scale -) 1 vial SQ [facility] PRN Reason: Protocol Last Admin: 08/06/16 13:57 Dose: Not Given Insulin Detemir (Levemir Vial) 23 units SQ [facility] Last Admin: 08/05/16 23:00 Dose: 23 unit Tamsulosin HCl (Flomax -) 0.4 mg PO DAILY@0830 [facility] Last Admin: 08/06/16 10:55 Dose: 0.4 mg Verapamil HCl (Calan Sr -) 240 mg PO BID [facility] Last Admin: 08/06/16 13:55 Dose: Not Given - Objective Vital Signs: Vital Signs Temperature 97.5 F L 08/06/16 12:55 Pulse Rate 87 08/06/16 12:55 Respiratory Rate 20 08/06/16 12:55 Blood Pressure 115/57 08/06/16 12:55 O2 Sat by Pulse Oximetry (%) 95 08/06/16 12:55 Respiratory: Yes: Rhonchi Labs: CBC, BMP 08/06/16 06:27 Problem List - Problems (1) Acute exacerbation of chronic obstructive pulmonary disease (COPD) Code(s): J44.1 - CHRONIC OBSTRUCTIVE PULMONARY DISEASE W (ACUTE) EXACERBATION Assessment/Plan Microbiology 07/14/16 16:00 Sputum - Expectorated Gram Stain - Final 07/14/16 16:00 Sputum - Expectorated Sputum Culture - Final S Aureus Laboratory Tests 08/05/16 08/06/16 11:40 06:27 WBC 10.8 H D Hgb 14.6 Plt Count 187 BUN 19 H Creatinine 1.1 Assessment COPD MRSA colonization Plan No antibiotics Leida WILDE
--- NOTE | 2016-08-06 16:38 | CONSULT ---
Consult Consult Specialty:: Nephrology Reason for Consultation:: azotemia - History of Present Illness Chief Complaint: shortness of breath History of Present Illness: Pt is a 71 year old male with pmhx of CAD, a-fib, LUCY, obesity, CAD, DM and HLD who presents to the ER with shortness of breath. He says he went for an echo and after the test he was walking when he felt increased shortness of breath. He denied chest pain or palpitations. He is on lasix at home. His dose was recently increased to 40 mg twice daily. He did not take it today. He denies history of CKD. He denies hematuria or dysuria. He denies nsaid use. - History Source History Provided By: Patient, Medical Record - Past Medical History Cardio/Vascular: Yes: AFIB, HTN, Hyperlipdemia Pulmonary: Yes: COPD, O2 Dependent, Sleep Apnea Endocrine: Yes: Other (MORBIDLY OBESE) - Past Surgical History Past Surgical History: Yes: Tonsillectomy - Alcohol/Substance Use Hx Alcohol Use: No - Smoking History Smoking history: Former smoker Have you smoked in the past 12 months: No Aproximately how many cigarettes per day: 0 If you are a former smoker, when did you quit?: 6 years ago - Social History Usual Living Arrangement: Other History of Recent Travel: No Home Medications - Allergies Allergies/Adverse Reactions: Allergies Allergy/AdvReac Type Severity Reaction Status Date / Time No Known Allergies Allergy Verified 08/05/16 10:27 - Home Medications Home Medications: Ambulatory Orders Atorvastatin Ca [Lipitor] 10 mg PO HS tablet 08/23/15 Albuterol 0.083% Nebulizer Cielo [Ventolin 0.083% Nebulizer Soln -] 1 amp NEB PRN 06/25/16 Levalbuterol Tartrate [Xopenex Hfa] 2 puff IH PRN 06/25/16 Budesonide/Formeterol Fumarate [SYMBICORT 160/4.5mcg -] 2 puff IH BID inhaler 06/30/16 Acetaminophen [Tylenol .Regular Strength -] 650 mg PO Q6H PRN #0 tablet Apixaban [Eliquis -] 5 mg PO BID tablet 07/15/16 Insulin (Levemir) [Levemir Vial] 23 units SQ BIDI ml 07/15/16 Tamsulosin HCl [Flomax -] 0.4 mg PO DAILY@0830 cap.er.24h 07/15/16 Furosemide [Lasix -] 40 mg PO BID@0600,1400 #60 tablet 07/19/16 Gabapentin [Neurontin -] 100 mg PO TID #90 capsule 07/19/16 Verapamil HCl ER [Calan Sr -] 240 mg PO BID #60 tablet.er 07/19/16 Insulin (Novolog) [Novolog Flexpen] 0 units SQ ACHS 08/05/16 Family Disease History - Family Disease History Family History: Denies Review of Systems - Review of Systems Constitutional: reports: No Symptoms Eyes: reports: No Symptoms HENT: reports: No Symptoms Neck: reports: No Symptoms Cardiovascular: reports: Edema, Shortness of Breath Respiratory: reports: SOB, SOB on Exertion Gastrointestinal: reports: No Symptoms Genitourinary: reports: No Symptoms Musculoskeletal: reports: No Symptoms Integumentary: reports: No Symptoms Neurological: reports: No Symptoms Endocrine: reports: No Symptoms Hematology/Lymphatic: reports: No Symptoms Psychiatric: reports: No Symptoms Physical Exam Vital Signs: Vital Signs Temperature 97.5 F L 08/06/16 12:55 Pulse Rate 87 08/06/16 12:55 Respiratory Rate 20 08/06/16 12:55 Blood Pressure 115/57 08/06/16 12:55 O2 Sat by Pulse Oximetry (%) 94 L 08/06/16 14:29 Constitutional: Yes: Calm Eyes: Yes: Conjunctiva Clear HENT: Yes: Atraumatic Neck: Yes: Supple Cardiovascular: Yes: S1, S2 Respiratory: Yes: On BiPap Gastrointestinal: Yes: Abdomen, Obese Renal/: Yes: WNL Musculoskeletal: Yes: WNL Edema: Yes Edema: LLE: 1+, RLE: 1+ Neurological: Yes: Oriented Psychiatric: Yes: Oriented Labs: CBC, BMP 08/06/16 06:27 Laboratory Tests 08/05/16 08/05/16 08/06/16 11:40 11:40 06:27 WBC 10.8 H D Hgb 14.6 Plt Count 187 Sodium 141 Potassium 4.8 Chloride 103 Carbon Dioxide 29 Anion Gap 9 BUN 19 H D 19 H Creatinine 1.1 1.1 Imaging - Results Chest X-ray: Report Reviewed Problem List - Problems (1) Asthma Code(s): J45.909 - UNSPECIFIED ASTHMA, UNCOMPLICATED (2) Diabetes mellitus Code(s): E11.9 - TYPE 2 DIABETES MELLITUS WITHOUT COMPLICATIONS Qualifiers: Diabetes mellitus type: type 2 Diabetes mellitus complication status: with other specified complication (3) Atrial fibrillation Code(s): I48.91 - UNSPECIFIED ATRIAL FIBRILLATION Qualifiers: Atrial fibrillation type: unspecified Qualified Code(s): I48.91 - Unspecified atrial fibrillation (4) Azotemia Code(s): R79.89 - OTHER SPECIFIED ABNORMAL FINDINGS OF BLOOD CHEMISTRY Assessment/Plan Current Medications Generic Name Dose Route Start Last Admin Trade Name Freq PRN Reason Stop Dose Admin Acetaminophen 650 mg 08/05/16 13:55 08/05/16 14:25 Tylenol - PO 650 mg Q6H PRN Administration FEVER OR PAIN Albuterol/Ipratropium 1 amp 08/05/16 13:55 Duoneb - NEB Q6H PRN SHORTNESS OF BREATH Apixaban 5 mg 08/05/16 22:00 08/06/16 13:04 Eliquis - PO 5 mg BID ARVIND Administration Atorvastatin Calcium 40 mg 08/05/16 22:00 08/06/16 13:06 Lipitor - PO 40 mg HS ARVIND Administration Budesonide/Formoterol Fumarate 2 puff 08/05/16 14:00 08/06/16 13:56 Symbicort 160/4.5mcg - IH Not Given BID ARVIND Furosemide 40 mg 08/05/16 14:00 08/06/16 14:50 Lasix - PO 40 mg BID@0600,1400 ARVIND Administration Gabapentin 100 mg 08/05/16 14:00 08/06/16 14:50 Neurontin - PO 100 mg TID ARVIND Administration Insulin Aspart 1 vial 08/05/16 16:30 08/06/16 16:21 Novolog Vial Sliding Scale - SQ 2 unit ACHS ARVIND Administration Protocol Insulin Detemir 23 units 08/05/16 22:00 08/05/16 23:00 Levemir Vial SQ 23 unit HS ARVIND Administration Tamsulosin HCl 0.4 mg 08/06/16 08:30 08/06/16 10:55 Flomax - PO 0.4 mg DAILY@0830 ARVIND Administration Verapamil HCl 240 mg 08/05/16 14:00 08/06/16 13:55 Calan Sr - PO Not Given BID ARVIND Impression 1. azotemia 2. CHF 3. obstructive sleep apnea 4. obesity 5. DM 6. HTN 7. hyperlipidemia Plan - agree with lasix - check ua - bun is elevated, will trend - can be seen as outpt - resume home meds - cont with bipap - will follow Dr Aguilar
--- NOTE | 2016-08-06 16:44 | CONS ---
DATE OF CONSULTATION: DATE OF DICTATION: 08/06/2016 INFECTIOUS DISEASE CONSULTATION HISTORY OF PRESENT ILLNESS: This is one of multiple hospital admissions for this 71-year-old male with severe oxygen dependent COPD. The patient is admitted now because of worsening shortness of breath, having been in the hospital recently for the same problem. He has additional medical problems of morbid obesity with hypertension, and heart failure for which he has been treated with Lasix. He weighs 330 pounds. He is not febrile now, nor does his chest x-ray show any infiltrate. His white count was normal. I am asked to see him regarding possible need for antibiotics. PAST MEDICAL HISTORY: As noted above. MEDICATION: Long list, includes atorvastatin, Ventolin, Eliquis, insulin, Lasix, Neurontin, verapamil. ALLERGIES: None known. SOCIAL HISTORY: Former heavy smoker. No history of alcohol or substance abuse. FAMILY HISTORY/REVIEW OF SYSTEMS: Reviewed and noncontributory. PHYSICAL EXAMINATION: General: The patient was a heavyset male, alert, pleasant, and in mild respiratory distress. Vital signs: Temperature 97.5, pulse 92, blood pressure 105/84. Neck: Supple. Lungs: Bilateral rhonchi. Heart: S1, S2. Distant heart sounds. Abdomen: Soft. Nontender. No organomegaly. Extremities: Bilateral lymphedema. LABORATORY: The white count is 10.8, hemoglobin 14.6, platelets 187. BUN 19, creatinine 1.1. Sputum culture with MRSA July 14 and chest x-ray shows no acute infiltrate. ASSESSMENT: A 71-year-old male with morbid obesity and multiple comorbidities admitted now with exacerbation of chronic obstructive pulmonary disease, no obvious infection at this time. PLAN: As per pulmonary management, inhaled bronchodilators along with corticosteroids, no indication for antibiotics, nares screening for MRSA. NATALIE HWANG M.D. ERLIN/[id number]
[2016-08-06 21:43] LABS: URINE APPEARANCE CLEAR; URINE BILIRUBIN NEGATIVE (NEGATIVE); URINE BLOOD NEGATIVE (NEGATIVE); URINE COLOR STRAW; URINE GLUCOSE (UA) NEGATIVE (NEGATIVE); URINE KETONE NEGATIVE (NEGATIVE); URINE LEUK ESTERASE NEGATIVE (NEGATIVE); URINE NITRITE NEGATIVE (NEGATIVE); URINE PROTEIN NEGATIVE (NEGATIVE); URINE UROBILINOGEN NEGATIVE E.U./dl (0.2-1.0)
[2016-08-06] MEDS: INSULIN DETEMIR 100 UNITS/ML MDV SQ SCH (23:00)
[2016-08-07] MEDS: INSULIN SLIDING SCALE (NOVOLOG) 1 VIAL SQ SCH ×4 (06:20→21:31)
[2016-08-07] MEDS: FUROSEMIDE 40 MG TABLET (FP) PO SCH ×2 (06:21→14:23)
[2016-08-07] MEDS: GABAPENTIN 100 MG CAPSULE (FP) PO SCH ×3 (06:21→21:30)
[2016-08-07 07:41] LABS: BASOPHIL 0.2 % (0-2.0); EOSINOPHIL 0.6 % (0-4.5); MCH 30.1 pg (25.7-33.7); MCHC 33.5 g/dl (32.0-35.9); MEAN CELL VOLUME 89.7 fl (80-96); MEAN PLT VOLUME 8.6 fl (7.5-11.1); NEUTROPHILS 73.5 % (42.8-82.8); PLATELET COUNT 201 K/MM3 (134-434); WHITE BLOOD COUNT 11.4 K/mm3 (4.0-10.0)
[2016-08-07 08:12] LABS: ALBUMIN 3.1 g/dl (3.4-5.0); ALK PHOS 67 U/L (45-117); ANION GAP 12 (8-16); BILIRUBIN,TOTAL 0.5 mg/dL (0.2-1.0); CO2 30 mmol/L (21-32); CREATININE 1.1 mg/dL (0.7-1.3); GLUCOSE,RANDOM 140 mg/dL (74-106); SGOT/AST 11 U/L (15-37); SGPT/ALT 31 U/L (12-78); TOT PROT 5.9 g/dl (6.4-8.2)
[2016-08-07] MEDS: TAMSULOSIN HCL 0.4 MG CAP.ER.24H (FP) PO SCH (09:22)
--- NOTE | 2016-08-07 09:23 | PN ---
Progress Note, Physician Chief Complaint: acute resp distress History of Present Illness: breathing much better--no sob today no cp, palpit; no incr leg swelling over baseline - Current Medication List Current Medications: Active Medications Acetaminophen (Tylenol -) 650 mg PO Q6H PRN PRN Reason: FEVER OR PAIN Last Admin: 08/05/16 14:25 Dose: 650 mg Albuterol/Ipratropium (Duoneb -) 1 amp NEB Q6H PRN PRN Reason: SHORTNESS OF BREATH Apixaban (Eliquis -) 5 mg PO BID [facility] Last Admin: 08/06/16 22:59 Dose: 5 mg Atorvastatin Calcium (Lipitor -) 40 mg PO HS [facility] Last Admin: 08/06/16 23:01 Dose: 40 mg Budesonide/Formoterol Fumarate (Symbicort 160/4.5mcg -) 2 puff IH BID [facility] Last Admin: 08/06/16 23:03 Dose: 2 puff Furosemide (Lasix -) 40 mg PO BID@0600,1400 [facility] Last Admin: 08/07/16 06:21 Dose: 40 mg Gabapentin (Neurontin -) 100 mg PO TID [facility] Last Admin: 08/07/16 06:21 Dose: 100 mg Insulin Aspart (Novolog Vial Sliding Scale -) 1 vial SQ [facility] PRN Reason: Protocol Last Admin: 08/07/16 06:20 Dose: Not Given Insulin Detemir (Levemir Vial) 23 units SQ [facility] Last Admin: 08/06/16 23:00 Dose: 23 unit Tamsulosin HCl (Flomax -) 0.4 mg PO DAILY@0830 [facility] Last Admin: 08/06/16 10:55 Dose: 0.4 mg Verapamil HCl (Calan Sr -) 240 mg PO BID [facility] Last Admin: 08/06/16 23:00 Dose: 240 mg - Objective Vital Signs: Vital Signs Temperature 97.4 F L 08/06/16 18:18 Pulse Rate 93 H 08/06/16 18:18 Respiratory Rate 20 08/06/16 20:11 Blood Pressure 130/76 08/06/16 18:18 O2 Sat by Pulse Oximetry (%) 96 08/06/16 20:11 Constitutional: Yes: No Distress, Calm, Obese Cardiovascular: Yes: Pulse Irregular, S1, S2. No: Gallop, Murmur Respiratory: Yes: Regular, CTA Bilaterally. No: Accessory Muscle Use, Rales, Wheezes Extremities: No: Cold Edema: Yes (mild ankles) Neurological: Yes: Alert, Oriented Psychiatric: No: Agitated Labs: CBC, BMP 08/07/16 06:00 08/07/16 06:00 Assessment/Plan CXR: no acute pathology echo 07/2016: Nl lv/rv. 1+ AR Echo 08/2015: tds, nl lv/rv, no sig valve path mibi 12/2012: small posterior ischemia vs artifact, nl lvef, no tid 10/2015 CT scan negative for PE a/p: 71 yo male with h/o AFib s/p prior DCCV 12/2015 to SR on AC, HTN, HL, PVCs with palpitations, morbid obesity, LUCY on bipap, severe COPD, here with sob. a.e. COPD (end-stage copd on home O2)/ acute diastolic chf: - has tendency towards volume retention felicia when receives steroids for copd exacerbation - no chf on cxr here - d/c wt on 06/30 was 339 lbs, and on 07/19 was 338 lbs -says wt fluctuated since d/c 07/19, up to 350, was 345 at home on DOA last week - wt here 344 lbs-->342 s/p lasix 40 ivp x 1...assessment is somewhat difficult given pt's obesity and wt trend in past can jump significantly from caloric intake as well -chronic venous ins'y sec to obesity, likely worsened by hi dose CCB -suspect the wt trend at home was in part fluid retention (and he had episode of 10 lb wt gain in few days prior to last admit as well--per VNS chf monitoring home wts) - will give trial lasix 40 iv qd while here to see if signif wt comes off and bun/creat tolerates--depending on response of wt and labs, consider 80 ivp trial next - no signs of acs - copd/lucy tx per pulm paroxysmal AF/flutter -cont eliquis for AC -new dx 2015--req'd amio for HR control then (now off due to severe lung dz), s/ p successful DCCV 12/24, then reverted to afib -dig added on last admission--rate has been adequately controlled with the combo of diltiazem hi dose, and dilt -dig level good, cont same -avoiding BB given severe bronchospasm/copd; would like to avoid long-term amio for same reason hld: -continue statin htn: -stable on current meds ? cad: -pt had borderline positive mibi in 2012 vs soft tissue attenuation artifact -never had angina sx's -no signs acs here -continue medical management with statin, AC without ASA
[2016-08-07] MEDS: BUDESONIDE/FORMETEROL FUMARATE 160/4.5 mcg INHALER IH SCH ×2 (10:30→21:31)
[2016-08-07] MEDS: APIXABAN 5 MG TABLET PO SCH ×2 (10:35→21:27)
[2016-08-07] MEDS: VERAPAMIL HCL 240 MG E.R. TABLET (FP) PO SCH ×2 (10:50→21:29)
--- NOTE | 2016-08-07 10:59 | PN ---
Progress Note (short form) - Note Progress Note: PULMONARY SUBJECTIVE IMPROVEMENT VSS/AFEBRILS ANICTERIC DISTANT B/L BREATH SOUNDS S1S2 IRREGULAR OBESE DIMINISHED EDEMA LABS/MEDS/NOTES/IMAGING REVIEWED IMP ACUTE ON CHRONIC HYPOXEMIC RESPIRATORY FAILURE END STAGE COPD O2 DEPENDENT WITH ACUTE EXACERBATION AFIB CHF OSAS ON BiPAP HTN DM MORBID OBESITY PLAN IV STEROIDS INHALED BRONCHODILATORS LASIX O2 ANTICOAGULATION DAILY WTS MONITOR BLOOD SUGARS BIPAP AT NIGHT Benson VASQUEZ MD
[2016-08-07] MEDS ORDERED: PT OWN MED DRAWER 7, Y5N ONE ×2 (11:25→20:58)
--- NOTE | 2016-08-07 11:27 | PN ---
Progress Note, Physician History of Present Illness: FEELS BETTER - Current Medication List Current Medications: Active Medications Acetaminophen (Tylenol -) 650 mg PO Q6H PRN PRN Reason: FEVER OR PAIN Last Admin: 08/05/16 14:25 Dose: 650 mg Albuterol/Ipratropium (Duoneb -) 1 amp NEB Q6H PRN PRN Reason: SHORTNESS OF BREATH Apixaban (Eliquis -) 5 mg PO BID [facility] Last Admin: 08/06/16 22:59 Dose: 5 mg Atorvastatin Calcium (Lipitor -) 40 mg PO HS [facility] Last Admin: 08/06/16 23:01 Dose: 40 mg Budesonide/Formoterol Fumarate (Symbicort 160/4.5mcg -) 2 puff IH BID [facility] Last Admin: 08/06/16 23:03 Dose: 2 puff Furosemide (Lasix -) 40 mg PO BID@0600,1400 [facility] Last Admin: 08/07/16 06:21 Dose: 40 mg Gabapentin (Neurontin -) 100 mg PO TID [facility] Last Admin: 08/07/16 06:21 Dose: 100 mg Insulin Aspart (Novolog Vial Sliding Scale -) 1 vial SQ [facility] PRN Reason: Protocol Last Admin: 08/07/16 06:20 Dose: Not Given Insulin Detemir (Levemir Vial) [address] [facility] Last Admin: 08/06/16 23:00 Dose: 23 unit Methylprednisolone Sodium Succinate (Solu-Medrol -) 40 mg IVPB Q8H-IV [facility] Tamsulosin HCl (Flomax -) 0.4 mg PO DAILY@0830 [facility] Last Admin: 08/07/16 09:22 Dose: 0.4 mg Verapamil HCl (Calan Sr -) 240 mg PO BID [facility] Last Admin: 08/06/16 23:00 Dose: 240 mg - Objective Vital Signs: Vital Signs Temperature 97.4 F L 08/06/16 18:18 Pulse Rate 93 H 08/06/16 18:18 Respiratory Rate 20 08/06/16 20:11 Blood Pressure 130/76 08/06/16 18:18 O2 Sat by Pulse Oximetry (%) 96 08/06/16 20:11 Cardiovascular: Yes: S1, S2 Respiratory: Yes: Diminished, On BiPap Gastrointestinal: Yes: Normal Bowel Sounds, Soft Labs: CBC, BMP 08/07/16 06:00 08/07/16 06:00 Problem List - Problems (1) Acute exacerbation of chronic obstructive pulmonary disease (COPD) Assessment/Plan: NEBS BIPAP STEROIDS PER PULM Code(s): J44.1 - CHRONIC OBSTRUCTIVE PULMONARY DISEASE W (ACUTE) EXACERBATION (2) Diabetes mellitus Assessment/Plan: [facility] Code(s): E11.9 - TYPE 2 DIABETES MELLITUS WITHOUT COMPLICATIONS Qualifiers: Diabetes mellitus type: type 2 Diabetes mellitus complication status: with other specified complication (3) Atrial fibrillation Assessment/Plan: ON ELIQUIS Code(s): I48.91 - UNSPECIFIED ATRIAL FIBRILLATION Qualifiers: Atrial fibrillation type: unspecified Qualified Code(s): I48.91 - Unspecified atrial fibrillation
[2016-08-07] MEDS: methylPREDNISolone NA SUCC 40 MG/1 ML VIAL IVPB SCH ×2 (11:54→17:27)
[2016-08-07] MEDS ORDERED: INSULIN (NOVOLOG) ASPART 100 UNITS/ML 10ML VIAL ONE (11:57)
[2016-08-07] MEDS ORDERED: FUROSEMIDE 40 MG/4 ML INJECTABLE VIAL IVPUSH ONE (12:30)
--- NOTE | 2016-08-07 15:11 | PN ---
Progress Note, Physician History of Present Illness: Renal F/U Pt has less dyspnea and lost about 4 lbs since yesterday Cr stable but BUN rising on the IV Lasix and Steroids - Current Medication List Current Medications: Active Medications Acetaminophen (Tylenol -) 650 mg PO Q6H PRN PRN Reason: FEVER OR PAIN Last Admin: 08/05/16 14:25 Dose: 650 mg Albuterol/Ipratropium (Duoneb -) 1 amp NEB Q6H PRN PRN Reason: SHORTNESS OF BREATH Apixaban (Eliquis -) 5 mg PO BID [facility] Last Admin: 08/07/16 10:35 Dose: 5 mg Atorvastatin Calcium (Lipitor -) 40 mg PO HS [facility] Last Admin: 08/06/16 23:01 Dose: 40 mg Budesonide/Formoterol Fumarate (Symbicort 160/4.5mcg -) 2 puff IH BID [facility] Last Admin: 08/07/16 10:30 Dose: 2 puff Furosemide (Lasix -) 40 mg PO BID@0600,1400 [facility] Last Admin: 08/07/16 14:23 Dose: 40 mg Gabapentin (Neurontin -) 100 mg PO TID [facility] Last Admin: 08/07/16 13:24 Dose: 100 mg Insulin Aspart (Novolog Vial Sliding Scale -) 1 vial SQ ACHS [facility] PRN Reason: Protocol Last Admin: 08/07/16 12:07 Dose: Not Given Insulin Detemir (Levemir Vial) 23 units SQ HS [facility] Last Admin: 08/06/16 23:00 Dose: 23 unit Methylprednisolone Sodium Succinate (Solu-Medrol -) 40 mg IVPB Q8H-IV [facility] Last Admin: 08/07/16 11:54 Dose: 40 mg Tamsulosin HCl (Flomax -) 0.4 mg PO DAILY@0830 [facility] Last Admin: 08/07/16 09:22 Dose: 0.4 mg Verapamil HCl (Calan Sr -) 240 mg PO BID [facility] Last Admin: 08/07/16 10:50 Dose: Not Given - Objective Vital Signs: Vital Signs Temperature 95.6 F L 08/07/16 09:00 Pulse Rate 71 08/07/16 11:15 Respiratory Rate 20 08/07/16 09:00 Blood Pressure 116/64 08/07/16 09:00 O2 Sat by Pulse Oximetry (%) 95 08/07/16 11:15 Constitutional: Yes: No Distress Cardiovascular: Yes: Other (Distant S1S2) Respiratory: Yes: Other (Decreased BS B/U). No: Rales, Wheezes Gastrointestinal: Yes: Soft. No: Tenderness, Rebound Edema: LLE: 2+, RLE: 2+ Labs: CBC, BMP 08/07/16 06:00 08/07/16 06:00 Laboratory Tests 08/06/16 20:00 Urine Color Straw Urine Appearance Clear Urine pH 5.0 Ur Specific [place] 1.011 Urine Protein Negative Urine Glucose (UA) Negative Urine Ketones Negative Urine Blood Negative Urine Nitrite Negative Urine Bilirubin Negative Urine Urobilinogen Negative Ur Leukocyte Esterase Negative Assessment/Plan Impression Pre Renal azotemia CHF COPD/Obstructive sleep apnea Obesity DM HTN PAF Hyperlipidemia Plan Continue with lasix and steroids as ordered Rpt labs in am Monitor wts Dr Contreras
[2016-08-07] MEDS: ATORVASTATIN CA 40 MG TABLET (FP) PO SCH (21:30)
[2016-08-07] MEDS: INSULIN DETEMIR 100 UNITS/ML MDV SQ SCH (21:30)
[2016-08-08] MEDS: methylPREDNISolone NA SUCC 40 MG/1 ML VIAL IVPB SCH ×3 (02:14→17:29)
[2016-08-08] MEDS: FUROSEMIDE 40 MG TABLET (FP) PO SCH ×2 (06:08→14:13)
[2016-08-08] MEDS: INSULIN SLIDING SCALE (NOVOLOG) 1 VIAL SQ SCH ×4 (06:08→22:02)
[2016-08-08] MEDS: GABAPENTIN 100 MG CAPSULE (FP) PO SCH ×3 (06:08→22:01)
[2016-08-08 08:01] LABS: CALCIUM 9.5 mg/dL (8.5-10.1); CREATININE 1.2 mg/dL (0.7-1.3)
[2016-08-08] MEDS: TAMSULOSIN HCL 0.4 MG CAP.ER.24H (FP) PO SCH (09:15)
--- NOTE | 2016-08-08 09:37 | PN ---
Progress Note (short form) - Note Progress Note: s: no cp palps dizzy; sob less today o: Vital Signs Period Temp Pulse Resp BP Sys/Park Pulse Ox Last 24 Hr 97.4 F-98.4 F 71-101 18-20 110-129/63-82 93-95 NAD, calm JVD difficult to assess due to size, neck supple cta bl, nl effort Irregularly, irregular nl s1, s2 no m/r/g + bs soft obese nt nd ext with trace edema. no cyanosis or clubbing no jaundice, diaphoresis. Current Medications Generic Name Dose Route Start Last Admin Trade Name Freq PRN Reason Stop Dose Admin Acetaminophen 650 mg 08/05/16 13:55 08/05/16 14:25 Tylenol - PO 650 mg Q6H PRN Administration FEVER OR PAIN Albuterol/Ipratropium 1 amp 08/05/16 13:55 Duoneb - NEB Q6H PRN SHORTNESS OF BREATH Apixaban 5 mg 08/05/16 22:00 08/07/16 21:27 Eliquis - PO 5 mg BID ARVIND Administration Atorvastatin Calcium 40 mg 08/05/16 22:00 08/07/16 21:30 Lipitor - PO 40 mg HS ARVIND Administration Budesonide/Formoterol Fumarate 2 puff 08/05/16 14:00 08/07/16 21:31 Symbicort 160/4.5mcg - IH 2 puff BID ARVIND Administration Furosemide 40 mg 08/05/16 14:00 08/08/16 06:08 Lasix - PO 40 mg BID@0600,1400 ARVIND Administration Gabapentin 100 mg 08/05/16 14:00 08/08/16 06:08 Neurontin - PO 100 mg TID ARVIND Administration Insulin Aspart 1 vial 08/05/16 16:30 08/08/16 06:08 Novolog Vial Sliding Scale - SQ 4 unit ACHS ARVIND Administration Protocol Insulin Detemir 23 units 08/05/16 22:00 08/07/16 21:30 Levemir Vial SQ 23 unit HS ARVIND Administration Methylprednisolone Sodium Succinate 40 mg 08/07/16 11:00 08/08/16 02:14 Solu-Medrol - IVPB 40 mg Q8H-IV [facility]VIND Administration Tamsulosin HCl 0.4 mg 08/06/16 08:30 01/28/17 09:22 Flomax - PO 0.4 mg DAILY@0830 ARVIND Administration Verapamil HCl 240 mg 08/05/16 14:00 08/07/16 21:29 Calan Sr - PO 240 mg BID ARVIND Administration CBC, BMP 08/07/16 06:00 08/08/16 06:00 EKG: afib 87 bpm. no ischemic changes CXR: no acute pathology echo 07/2016: Nl lv/rv. 1+ AR Echo 08/2015: tds, nl lv/rv, no sig valve path mibi 12/2012: small posterior ischemia vs artifact, nl lvef, no tid 10/2015 CT scan negative for PE a/p: 71 yo male with h/o AFib s/p prior DCCV 12/2015 to SR on AC, HTN, HL, PVCs with palpitations, morbid obesity, NATHANIEL on bipap, severe COPD, here with sob. SOB/ severe COPD on home O2, diastolic chf: - No obvious signs of pulmonary edema on CXR and le edema seems at baseline. Wt also near his baseline. - continue home lasix 40 po bid - no signs of acs - copd/nathaniel tx per pmd/pulm--wheezing/sob improving paroxysmal AF/flutter -cont eliquis for AC -new dx 2015--req'd amio for HR control (now off due to severe lung dz), s/p successful DCCV 12/24, then reverted to afib -dig added on last admission -rate controlled now, cont same dig and dilt -avoiding BB given severe bronchospasm/copd; would like to avoid long-term amio for same reason hld: -continue statin htn: -stable on current meds possible cad: -pt had borderline positive mibi in 2012 -never had angina sx's -no signs acs here -continue medical management with statin, AC
[2016-08-08] MEDS: APIXABAN 5 MG TABLET PO SCH ×2 (10:17→22:01)
[2016-08-08] MEDS: VERAPAMIL HCL 240 MG E.R. TABLET (FP) PO SCH ×2 (10:17→22:00)
[2016-08-08] MEDS: BUDESONIDE/FORMETEROL FUMARATE 160/4.5 mcg INHALER IH SCH ×2 (10:26→22:02)
[2016-08-08] MEDS ORDERED: INSULIN (NOVOLOG) ASPART 100 UNITS/ML 10ML VIAL ONE ×2 (11:26→17:14)
--- NOTE | 2016-08-08 12:34 | PN ---
Progress Note, Physician History of Present Illness: FEELS BETTER - Current Medication List Current Medications: Active Medications Acetaminophen (Tylenol -) 650 mg PO Q6H PRN PRN Reason: FEVER OR PAIN Last Admin: 08/05/16 14:25 Dose: 650 mg Albuterol/Ipratropium (Duoneb -) 1 amp NEB Q6H PRN PRN Reason: SHORTNESS OF BREATH Apixaban (Eliquis -) 5 mg PO BID [facility] Last Admin: 08/08/16 10:17 Dose: 5 mg Atorvastatin Calcium (Lipitor -) 40 mg PO HS [facility] Last Admin: 08/07/16 21:30 Dose: 40 mg Budesonide/Formoterol Fumarate (Symbicort 160/4.5mcg -) 2 puff IH BID [facility] Last Admin: 08/08/16 10:26 Dose: 2 puff Furosemide (Lasix -) 40 mg PO BID@0600,1400 [facility] Last Admin: 08/08/16 06:08 Dose: 40 mg Gabapentin (Neurontin -) 100 mg PO TID [facility] Last Admin: 08/08/16 06:08 Dose: 100 mg Insulin Aspart (Novolog Vial Sliding Scale -) 1 vial SQ [facility] PRN Reason: Protocol Last Admin: 08/08/16 11:00 Dose: 8 unit Insulin Detemir (Levemir Vial) 23 units SQ [facility] Last Admin: 08/07/16 21:30 Dose: 23 unit Methylprednisolone Sodium Succinate (Solu-Medrol -) 40 mg IVPB Q8H-IV [facility] Last Admin: 08/08/16 10:18 Dose: 40 mg Tamsulosin HCl (Flomax -) 0.4 mg PO DAILY@0830 [facility] Last Admin: 08/08/16 09:15 Dose: 0.4 mg Verapamil HCl (Calan Sr -) 240 mg PO BID [facility] Last Admin: 08/08/16 10:17 Dose: 240 mg - Objective Vital Signs: Vital Signs Temperature 97.7 F 08/08/16 12:27 Pulse Rate 94 H 08/08/16 12:27 Respiratory Rate 20 08/08/16 12:27 Blood Pressure 123/73 08/08/16 12:27 O2 Sat by Pulse Oximetry (%) 94 L 08/08/16 12:07 Cardiovascular: Yes: S1, S2 Respiratory: Yes: Diminished, On BiPap Gastrointestinal: Yes: Normal Bowel Sounds, Soft Labs: CBC, BMP 08/07/16 06:00 08/08/16 06:00 Problem List - Problems (1) Acute exacerbation of chronic obstructive pulmonary disease (COPD) Assessment/Plan: NEBS BIPAP STEROIDS PER PULM Code(s): J44.1 - CHRONIC OBSTRUCTIVE PULMONARY DISEASE W (ACUTE) EXACERBATION (2) Diabetes mellitus Assessment/Plan: [facility] Code(s): E11.9 - TYPE 2 DIABETES MELLITUS WITHOUT COMPLICATIONS Qualifiers: Diabetes mellitus type: type 2 Diabetes mellitus complication status: with other specified complication (3) Atrial fibrillation Assessment/Plan: ON ELIQUIS RATE CONTROLLED Code(s): I48.91 - UNSPECIFIED ATRIAL FIBRILLATION Qualifiers: Atrial fibrillation type: unspecified Qualified Code(s): I48.91 - Unspecified atrial fibrillation
--- NOTE | 2016-08-08 13:56 | PN ---
Progress Note (short form) - Note Progress Note: PULMONARY SUBJECTIVE IMPROVEMENT VSS/AFEBRILE ANICTERIC DISTANT B/L BREATH SOUNDS S1S2 IRREGULAR OBESE DIMINISHED EDEMA LABS/MEDS/NOTES/IMAGING REVIEWED IMP ACUTE ON CHRONIC HYPOXEMIC RESPIRATORY FAILURE END STAGE COPD O2 DEPENDENT WITH ACUTE EXACERBATION AFIB CHF OSAS ON BiPAP HTN DM MORBID OBESITY PLAN IV STEROIDS INHALED BRONCHODILATORS LASIX O2 ANTICOAGULATION DAILY WTS MONITOR BLOOD SUGARS BIPAP AT NIGHT Benson VASQUEZ MD
--- NOTE | 2016-08-08 15:02 | PN ---
Progress Note, Physician History of Present Illness: Renal F/U Pt continues to feel better He lost an additional 3 lbs since yesterday - Current Medication List Current Medications: Active Medications Acetaminophen (Tylenol -) 650 mg PO Q6H PRN PRN Reason: FEVER OR PAIN Last Admin: 08/05/16 14:25 Dose: 650 mg Albuterol/Ipratropium (Duoneb -) 1 amp NEB Q6H PRN PRN Reason: SHORTNESS OF BREATH Apixaban (Eliquis -) 5 mg PO BID [facility] Last Admin: 08/08/16 10:17 Dose: 5 mg Atorvastatin Calcium (Lipitor -) 40 mg PO HS [facility] Last Admin: 08/07/16 21:30 Dose: 40 mg Budesonide/Formoterol Fumarate (Symbicort 160/4.5mcg -) 2 puff IH BID [facility] Last Admin: 08/08/16 10:26 Dose: 2 puff Furosemide (Lasix -) 40 mg PO BID@0600,1400 [facility] Last Admin: 08/08/16 14:13 Dose: 40 mg Gabapentin (Neurontin -) 100 mg PO TID [facility] Last Admin: 08/08/16 14:13 Dose: 100 mg Insulin Aspart (Novolog Vial Sliding Scale -) 1 vial SQ ACHS [facility] PRN Reason: Protocol Last Admin: 08/08/16 11:00 Dose: 8 unit Insulin Detemir (Levemir Vial) 23 units SQ HS [facility] Last Admin: 08/07/16 21:30 Dose: 23 unit Methylprednisolone Sodium Succinate (Solu-Medrol -) 40 mg IVPB Q8H-IV [facility] Last Admin: 08/08/16 10:18 Dose: 40 mg Tamsulosin HCl (Flomax -) 0.4 mg PO DAILY@0830 [facility] Last Admin: 08/08/16 09:15 Dose: 0.4 mg Verapamil HCl (Calan Sr -) 240 mg PO BID [facility] Last Admin: 08/08/16 10:17 Dose: 240 mg - Objective Vital Signs: Vital Signs Temperature 97.9 F 08/08/16 14:16 Pulse Rate 96 H 08/08/16 14:16 Respiratory Rate 20 08/08/16 14:16 Blood Pressure 129/91 08/08/16 14:16 O2 Sat by Pulse Oximetry (%) 94 L 08/08/16 12:07 Constitutional: Yes: No Distress Cardiovascular: Yes: S1, S2, Other (Distant heart sounds). No: JVD Respiratory: Yes: Other (Decreased BS B/L without wheezing or rales) Gastrointestinal: Yes: Soft, Abdomen, Obese. No: Tenderness, Rebound Edema: LLE: 1+, RLE: 1+ Labs: CBC, BMP 08/07/16 06:00 08/08/16 06:00 Assessment/Plan Impression Pre Renal azotemia CHF COPD/Obstructive sleep apnea Obesity DM HTN PAF on Apixaban Hyperlipidemia Plan Continue with lasix and steroids as ordered and to repeat BMP in am. Consider reducing lasix to once a day if Cr and BUN continue to rise Monitor wts Dr Contreras
[2016-08-08] MEDS ORDERED: PT OWN MED DRAWER 7, Y5N ONE (21:03)
[2016-08-08] MEDS: ATORVASTATIN CA 40 MG TABLET (FP) PO SCH (22:01)
[2016-08-08] MEDS: INSULIN DETEMIR 100 UNITS/ML MDV SQ SCH (22:01)
[2016-08-09] MEDS: methylPREDNISolone NA SUCC 40 MG/1 ML VIAL IVPB SCH ×3 (02:03→21:45)
[2016-08-09] MEDS: GABAPENTIN 100 MG CAPSULE (FP) PO SCH ×3 (06:33→21:43)
[2016-08-09] MEDS: FUROSEMIDE 40 MG TABLET (FP) PO SCH (06:33)
[2016-08-09] MEDS: INSULIN SLIDING SCALE (NOVOLOG) 1 VIAL SQ SCH ×4 (06:34→21:45)
[2016-08-09 07:19] LABS: BASOPHIL 0.1 % (0-2.0); MCH 29.6 pg (25.7-33.7); MCHC 33.1 g/dl (32.0-35.9); MEAN CELL VOLUME 89.4 fl (80-96); MEAN PLT VOLUME 8.8 fl (7.5-11.1); NEUTROPHILS 90.3 % (42.8-82.8); PLATELET COUNT 235 K/MM3 (134-434); RDW 14.9 % (11.9-15.9); WHITE BLOOD COUNT 14.4 K/mm3 (4.0-10.0)
[2016-08-09 07:47] LABS: CALCIUM 9.8 mg/dL (8.5-10.1); CREATININE 1.2 mg/dL (0.7-1.3)
[2016-08-09] MEDS: TAMSULOSIN HCL 0.4 MG CAP.ER.24H (FP) PO SCH (08:02)
[2016-08-09] MEDS ORDERED: FUROSEMIDE 40 MG/4 ML INJECTABLE VIAL IVPUSH ONE (08:59)
--- NOTE | 2016-08-09 09:01 | PN ---
Progress Note, Physician Chief Complaint: sob, chf History of Present Illness: breathing improved, near baseline ("we're getting there"). no cp, syncope isolated vigorous/extra heartbeat at times, c/w his prior PVC sx's over past few years - Current Medication List Current Medications: Active Medications Acetaminophen (Tylenol -) 650 mg PO Q6H PRN PRN Reason: FEVER OR PAIN Last Admin: 08/05/16 14:25 Dose: 650 mg Albuterol/Ipratropium (Duoneb -) 1 amp NEB Q6H PRN PRN Reason: SHORTNESS OF BREATH Apixaban (Eliquis -) 5 mg PO BID [facility] Last Admin: 08/08/16 22:01 Dose: 5 mg Atorvastatin Calcium (Lipitor -) 40 mg PO HS [facility] Last Admin: 08/08/16 22:01 Dose: 40 mg Budesonide/Formoterol Fumarate (Symbicort 160/4.5mcg -) 2 puff IH BID [facility] Last Admin: 08/08/16 22:02 Dose: 2 puff Furosemide (Lasix -) 40 mg PO BID@0600,1400 [facility] Last Admin: 08/09/16 06:33 Dose: 40 mg Gabapentin (Neurontin -) 100 mg PO TID [facility] Last Admin: 08/09/16 06:33 Dose: 100 mg Insulin Aspart (Novolog Vial Sliding Scale -) 1 vial SQ ACHS [facility] PRN Reason: Protocol Last Admin: 08/09/16 06:34 Dose: 4 unit Insulin Detemir (Levemir Vial) 23 units SQ HS [facility] Last Admin: 08/08/16 22:01 Dose: 23 unit Methylprednisolone Sodium Succinate (Solu-Medrol -) 40 mg IVPB Q8H-IV [facility] Last Admin: 08/09/16 02:03 Dose: 40 mg Tamsulosin HCl (Flomax -) 0.4 mg PO DAILY@0830 [facility] Last Admin: 08/09/16 08:02 Dose: 0.4 mg Verapamil HCl (Calan Sr -) 240 mg PO BID [facility] Last Admin: 08/08/16 22:00 Dose: 240 mg - Objective Vital Signs: Vital Signs Temperature 97.7 F 08/09/16 05:29 Pulse Rate 80 08/09/16 05:29 Respiratory Rate 20 08/09/16 05:29 Blood Pressure 103/67 08/09/16 05:29 O2 Sat by Pulse Oximetry (%) 96 08/08/16 21:00 Constitutional: Yes: No Distress, Calm, Obese Cardiovascular: Yes: Regular Rate and Rhythm (decr intensity, unchanged), S1, S2. No: Gallop, Murmur Respiratory: Yes: Regular, CTA Bilaterally (decr intensity). No: Accessory Muscle Use, Rales, Wheezes Extremities: No: Cold Edema: Yes (trace ankles) Neurological: Yes: Alert, Oriented Psychiatric: No: Agitated Labs: CBC, BMP 08/09/16 05:52 08/09/16 05:52 Assessment/Plan CXR: no acute pathology echo 07/2016: Nl lv/rv. 1+ AR Echo 08/2015: tds, nl lv/rv, no sig valve path mibi 12/2012: small posterior ischemia vs artifact, nl lvef, no tid 10/2015 CT scan negative for PE a/p: 71 yo male with h/o AFib s/p prior DCCV 12/2015 to SR on AC, HTN, HL, PVCs with palpitations, morbid obesity, LUCY on bipap, severe COPD, here with sob. a.e. COPD (end-stage copd on home O2)/ acute diastolic chf: - has tendency towards volume retention felicia when receives steroids for copd exacerbation - no chf on cxr here - d/c wt on 06/30 was 339 lbs, and on 07/19 was 338 lbs -says wt fluctuated since d/c 07/19, up to 350, was 345 at home on DOA last week - wt here 344 lbs-->342 s/p lasix 40 ivp x 1...assessment is somewhat difficult given pt's obesity and wt trend in past can jump significantly from caloric intake as well -chronic venous ins'y sec to obesity, likely worsened by hi dose CCB -suspect the wt trend at home was in part fluid retention (and he had episode of 10 lb wt gain in few days prior to last admit as well--per VNS chf monitoring home wts) - will give trial lasix 40 iv qd while here to see if signif wt comes off and bun/creat tolerates--depending on response of wt and labs, consider 80 ivp trial next -08/09: wt down 3 lbs the day after received dose of empiric lasix 40 iv x1; then 1 more lb today (338); bun/creat and bicarb rising slightly--likely becoming intravasc depleted -prefer to run him on the dry side to try to optimize resp status as much as possible and decr likelihood of recurrent hospitalizations (though suspect it is a minor contributor here, compared to severity of copd) -will give one more dose lasix 40 iv today, cont 40 po bid as of tomorrow (08/10) - no signs of acs - copd/lucy tx per pulm paroxysmal AF/flutter -cont eliquis for AC -new dx 2015--req'd amio for HR control then (now off due to severe lung dz), s/ p successful DCCV 12/24, then reverted to afib -dig added on last admission--rate has been adequately controlled with the combo of diltiazem hi dose, and dilt -dig level good, cont same -avoiding BB given severe bronchospasm/copd; would like to avoid long-term amio for same reason hld: -continue statin htn: -stable on current meds ? cad: -pt had borderline positive mibi in 2012 vs soft tissue attenuation artifact -never had angina sx's -no signs acs here -continue medical management with statin, AC without ASA
[2016-08-09] MEDS ORDERED: PT OWN MED DRAWER 7, Y5N ONE ×2 (10:05→21:30)
[2016-08-09] MEDS: APIXABAN 5 MG TABLET PO SCH ×2 (10:19→21:43)
[2016-08-09] MEDS: VERAPAMIL HCL 240 MG E.R. TABLET (FP) PO SCH ×2 (10:19→21:43)
[2016-08-09] MEDS: BUDESONIDE/FORMETEROL FUMARATE 160/4.5 mcg INHALER IH SCH ×2 (10:20→21:49)
--- NOTE | 2016-08-09 11:15 | PN ---
Progress Note (short form) - Note Progress Note: Overall breathing feels better. Less SOB. Insomnia. Used NIPPV overnight without issues. Intake & Output 08/06/16 08/07/16 08/08/16 08/09/16 23:59 23:59 23:59 23:59 Intake Total 800 790 900 50 Output Total 750 700 Balance 50 90 900 50 Weight 344 lb 2 oz 342 lb 14.4 oz 339 lb 4.8 oz 338 lb 12.8 oz Last Vital Signs Temp Pulse Resp BP Pulse Ox 97.2 F L 79 20 104/77 93 L 08/09/16 09:00 08/09/16 11:11 08/09/16 09:00 08/09/16 09:00 08/09/16 11:11 Active Medications Acetaminophen (Tylenol -) 650 mg PO Q6H PRN PRN Reason: FEVER OR PAIN Last Admin: 08/05/16 14:25 Dose: 650 mg Albuterol/Ipratropium (Duoneb -) 1 amp NEB Q6H PRN PRN Reason: SHORTNESS OF BREATH Apixaban (Eliquis -) 5 mg PO BID [facility] Last Admin: 08/09/16 10:19 Dose: 5 mg Atorvastatin Calcium (Lipitor -) 40 mg PO HS [facility] Last Admin: 08/08/16 22:01 Dose: 40 mg Budesonide/Formoterol Fumarate (Symbicort 160/4.5mcg -) 2 puff IH BID [facility] Last Admin: 08/09/16 10:20 Dose: 2 puff Furosemide (Lasix -) 40 mg PO BID@0600,1400 [facility] Gabapentin (Neurontin -) 100 mg PO TID [facility] Last Admin: 08/09/16 06:33 Dose: 100 mg Insulin Aspart (Novolog Vial Sliding Scale -) 1 vial SQ ACHS [facility] PRN Reason: Protocol Last Admin: 08/09/16 06:34 Dose: 4 unit Insulin Detemir (Levemir Vial) 23 units SQ HS [facility] Last Admin: 08/08/16 22:01 Dose: 23 unit Methylprednisolone Sodium Succinate (Solu-Medrol -) 40 mg IVPB Q8H-IV [facility] Last Admin: 08/09/16 10:20 Dose: 40 mg Tamsulosin HCl (Flomax -) 0.4 mg PO DAILY@0830 [facility] Last Admin: 08/09/16 08:02 Dose: 0.4 mg Verapamil HCl (Calan Sr -) 240 mg PO BID [facility] Last Admin: 08/09/16 10:19 Dose: 240 mg General: NAD Cardiovascular: Yes: S1, S2 Respiratory: Yes: Diminished at the bases, few scattered rhonhci Gastrointestinal: Yes: Normal Bowel Sounds, Soft Labs: Laboratory Results - last 24 hr 08/08/16 08/08/16 08/08/16 11:14 17:20 21:58 WBC RBC Hgb Hct MCV MCHC RDW Plt Count MPV Neutrophils % Lymphocytes % Monocytes % Eosinophils % Basophils % Sodium Potassium Chloride Carbon Dioxide Anion Gap BUN Creatinine POC Glucometer 311 282 345 Random Glucose Calcium 08/09/16 08/09/16 08/09/16 05:52 05:52 06:33 WBC 14.4 H RBC 4.67 Hgb 13.8 Hct 41.8 MCV 89.4 MCHC 33.1 RDW 14.9 Plt Count 235 MPV 8.8 Neutrophils % 90.3 H D Lymphocytes % 5.3 L D Monocytes % 4.3 Eosinophils % 0.0 D Basophils % 0.1 Sodium 140 Potassium 4.6 Chloride 97 L Carbon Dioxide 34 H Anion Gap 9 BUN 27 H Creatinine 1.2 POC Glucometer 208 Random Glucose 219 H Calcium 9.8 Problem List - Problems (1) Acute exacerbation of chronic obstructive pulmonary disease (COPD) Code(s): J44.1 - CHRONIC OBSTRUCTIVE PULMONARY DISEASE W (ACUTE) EXACERBATION (2) Asthma Code(s): J45.909 - UNSPECIFIED ASTHMA, UNCOMPLICATED (3) Diabetes mellitus Code(s): E11.9 - TYPE 2 DIABETES MELLITUS WITHOUT COMPLICATIONS Qualifiers: Diabetes mellitus type: type 2 Diabetes mellitus complication status: with other specified complication (4) Acute CHF Code(s): I50.9 - HEART FAILURE, UNSPECIFIED Qualifiers: Congestive heart failure type: unspecified congestive heart failure type Qualified Code(s): I50.9 - Heart failure, unspecified (5) Acute bronchitis with COPD Code(s): J44.0 - CHRONIC OBSTRUCTIVE PULMON DISEASE W ACUTE LOWER RESP INFCT (6) Acute on chronic respiratory failure with hypoxemia Code(s): J96.21 - ACUTE AND CHRONIC RESPIRATORY FAILURE WITH HYPOXIA (7) Atrial fibrillation Code(s): I48.91 - UNSPECIFIED ATRIAL FIBRILLATION Qualifiers: Atrial fibrillation type: unspecified Qualified Code(s): I48.91 - Unspecified atrial fibrillation (8) Dyspnea Code(s): R06.00 - DYSPNEA, UNSPECIFIED Qualifiers: Dyspnea type: shortness of breath Qualified Code(s): R06.02 - Shortness of breath (9) Edema Code(s): R60.9 - EDEMA, UNSPECIFIED (10) HTN (hypertension) Code(s): I10 - ESSENTIAL (PRIMARY) HYPERTENSION (11) Morbid obesity Code(s): E66.01 - MORBID (SEVERE) OBESITY DUE TO EXCESS CALORIES Qualifiers: Obesity type: due to excess calories Qualified Code(s): E66.01 - Morbid (severe) obesity due to excess calories (12) Obstructive sleep apnea Code(s): G47.33 - OBSTRUCTIVE SLEEP APNEA (ADULT) (PEDIATRIC) (13) Shortness of breath Code(s): R06.02 - SHORTNESS OF BREATH PLAN: Taper Medrol Symbicort BID BD TX PRN -> If worsens will order standing as well NIPPV QHS and PRN O2 as needed VTE prophylaxis Dr Emanuel
--- NOTE | 2016-08-09 14:36 | PN ---
Progress Note, Physician Chief Complaint: SITTING IN SOLARIUM - Current Medication List Current Medications: Active Medications Acetaminophen (Tylenol -) 650 mg PO Q6H PRN PRN Reason: FEVER OR PAIN Last Admin: 08/05/16 14:25 Dose: 650 mg Albuterol/Ipratropium (Duoneb -) 1 amp NEB Q6H PRN PRN Reason: SHORTNESS OF BREATH Apixaban (Eliquis -) 5 mg PO BID REPLACED BY [facility] Last Admin: 08/09/16 10:19 Dose: 5 mg Atorvastatin Calcium (Lipitor -) 40 mg PO HS REPLACED BY [facility] Last Admin: 08/08/16 22:01 Dose: 40 mg Budesonide/Formoterol Fumarate (Symbicort 160/4.5mcg -) 2 puff IH BID REPLACED BY [facility] Last Admin: 08/09/16 10:20 Dose: 2 puff Furosemide (Lasix -) 40 mg PO BID@0600,1400 REPLACED BY [facility] Gabapentin (Neurontin -) 100 mg PO TID REPLACED BY [facility] Last Admin: 08/09/16 13:08 Dose: 100 mg Insulin Aspart (Novolog Vial Sliding Scale -) 1 vial SQ ACHS REPLACED BY [facility] PRN Reason: Protocol Last Admin: 08/09/16 11:42 Dose: 10 unit Insulin Detemir (Levemir Vial) 28 units SQ HS REPLACED BY [facility] Insulin Detemir (Levemir Vial) 5 units SQ DAILY REPLACED BY [facility] Methylprednisolone Sodium Succinate (Solu-Medrol -) 40 mg IVPB Q12H REPLACED BY [facility] Tamsulosin HCl (Flomax -) 0.4 mg PO DAILY@0830 REPLACED BY [facility] Last Admin: 08/09/16 08:02 Dose: 0.4 mg Verapamil HCl (Calan Sr -) 240 mg PO BID REPLACED BY [facility] Last Admin: 08/09/16 10:19 Dose: 240 mg - Objective Vital Signs: Vital Signs Temperature 97.2 F L 08/09/16 09:00 Pulse Rate 79 08/09/16 11:11 Respiratory Rate 20 08/09/16 09:00 Blood Pressure 104/77 08/09/16 09:00 O2 Sat by Pulse Oximetry (%) 96 08/09/16 14:14 Constitutional: Yes: Calm Cardiovascular: Yes: S1, S2 Respiratory: Yes: CTA Bilaterally Gastrointestinal: Yes: Normal Bowel Sounds, Soft Edema: Yes Labs: CBC, BMP 08/09/16 05:52 08/09/16 05:52 Problem List - Problems (1) Acute exacerbation of chronic obstructive pulmonary disease (COPD) Code(s): J44.1 - CHRONIC OBSTRUCTIVE PULMONARY DISEASE W (ACUTE) EXACERBATION (2) Atrial fibrillation Code(s): I48.91 - UNSPECIFIED ATRIAL FIBRILLATION Qualifiers: Atrial fibrillation type: unspecified Qualified Code(s): I48.91 - Unspecified atrial fibrillation (3) Diabetes mellitus Code(s): E11.9 - TYPE 2 DIABETES MELLITUS WITHOUT COMPLICATIONS Qualifiers: Diabetes mellitus type: type 2 Diabetes mellitus complication status: with other specified complication Assessment/Plan (1) Acute exacerbation of chronic obstructive pulmonary disease (COPD) Assessment/Plan: NEBS BIPAP STEROIDS PER PULM Code(s): J44.1 - CHRONIC OBSTRUCTIVE PULMONARY DISEASE W (ACUTE) EXACERBATION (2) Diabetes mellitus Assessment/Plan: BGM ENDO LEVEMIR INCed Code(s): E11.9 - TYPE 2 DIABETES MELLITUS WITHOUT COMPLICATIONS Qualifiers: Diabetes mellitus type: type 2 Diabetes mellitus complication status: with other specified complication (3) Atrial fibrillation Assessment/Plan: ON ELIQUIS RATE CONTROLLED Code(s): I48.91 - UNSPECIFIED ATRIAL FIBRILLATION Qualifiers: Atrial fibrillation type: unspecified Qualified Code(s): I48.91 - Unspecified atrial fibrillation [employer]
--- NOTE | 2016-08-09 17:20 | PN ---
Progress Note, Physician History of Present Illness: Pt seen and examined at bedside. He says he feels better today. He feels that his breathing is improved today. - Current Medication List Current Medications: Active Medications Acetaminophen (Tylenol -) 650 mg PO Q6H PRN PRN Reason: FEVER OR PAIN Last Admin: 08/05/16 14:25 Dose: 650 mg Albuterol/Ipratropium (Duoneb -) 1 amp NEB Q6H PRN PRN Reason: SHORTNESS OF BREATH Apixaban (Eliquis -) 5 mg PO BID [facility] Last Admin: 08/09/16 10:19 Dose: 5 mg Atorvastatin Calcium (Lipitor -) 40 mg PO HS [facility] Last Admin: 08/08/16 22:01 Dose: 40 mg Budesonide/Formoterol Fumarate (Symbicort 160/4.5mcg -) 2 puff IH BID [facility] Last Admin: 08/09/16 10:20 Dose: 2 puff Furosemide (Lasix -) 40 mg PO BID@0600,1400 [facility] Gabapentin (Neurontin -) 100 mg PO TID [facility] Last Admin: 08/09/16 13:08 Dose: 100 mg Insulin Aspart (Novolog Vial Sliding Scale -) 1 vial SQ ACHS [facility] PRN Reason: Protocol Last Admin: 08/09/16 16:55 Dose: 10 unit Insulin Detemir (Levemir Vial) 28 units SQ HS [facility] Insulin Detemir (Levemir Vial) 5 units SQ DAILY@0700 [facility] Methylprednisolone Sodium Succinate (Solu-Medrol -) 40 mg IVPB Q12H [facility] Tamsulosin HCl (Flomax -) 0.4 mg PO DAILY@0830 [facility] Last Admin: 08/09/16 08:02 Dose: 0.4 mg Verapamil HCl (Calan Sr -) 240 mg PO BID [facility] Last Admin: 08/09/16 10:19 Dose: 240 mg - Objective Vital Signs: Vital Signs Temperature 98.3 F 08/09/16 15:04 Pulse Rate 84 08/09/16 15:04 Respiratory Rate 21 08/09/16 15:04 Blood Pressure 127/79 08/09/16 15:04 O2 Sat by Pulse Oximetry (%) 96 08/09/16 14:14 Constitutional: Yes: Calm Eyes: Yes: Conjunctiva Clear HENT: Yes: Atraumatic Neck: Yes: Supple Cardiovascular: Yes: S1, S2 Respiratory: Yes: Wheezes Gastrointestinal: Yes: Soft, Abdomen, Obese Musculoskeletal: Yes: WNL Edema: Yes Edema: LLE: Trace, RLE: Trace Neurological: Yes: Oriented Psychiatric: Yes: Oriented Labs: CBC, BMP 08/09/16 05:52 08/09/16 05:52 Problem List - Problems (1) Asthma Code(s): J45.909 - UNSPECIFIED ASTHMA, UNCOMPLICATED (2) Diabetes mellitus Code(s): E11.9 - TYPE 2 DIABETES MELLITUS WITHOUT COMPLICATIONS Qualifiers: Diabetes mellitus type: type 2 Diabetes mellitus complication status: with other specified complication (3) Atrial fibrillation Code(s): I48.91 - UNSPECIFIED ATRIAL FIBRILLATION Qualifiers: Atrial fibrillation type: unspecified Qualified Code(s): I48.91 - Unspecified atrial fibrillation (4) Azotemia Code(s): R79.89 - OTHER SPECIFIED ABNORMAL FINDINGS OF BLOOD CHEMISTRY Assessment/Plan Current Medications Generic Name Dose Route Start Last Admin Trade Name Freq PRN Reason Stop Dose Admin Acetaminophen 650 mg 08/05/16 13:55 08/05/16 14:25 Tylenol - PO 650 mg Q6H PRN Administration FEVER OR PAIN Albuterol/Ipratropium 1 amp 08/05/16 13:55 Duoneb - NEB Q6H PRN SHORTNESS OF BREATH Apixaban 5 mg 08/05/16 22:00 08/09/16 10:19 Eliquis - PO 5 mg BID ARVIND Administration Atorvastatin Calcium 40 mg 08/05/16 22:00 08/08/16 22:01 Lipitor - PO 40 mg HS ARVIND Administration Budesonide/Formoterol Fumarate 2 puff 08/05/16 14:00 08/09/16 10:20 Symbicort 160/4.5mcg - IH 2 puff BID ARVIND Administration Furosemide 40 mg 08/10/16 06:00 Lasix - PO BID@0600,1400 ARVIND Gabapentin 100 mg 08/05/16 14:00 08/09/16 13:08 Neurontin - PO 100 mg TID ARVIND Administration Insulin Aspart 1 vial 08/05/16 16:30 08/09/16 16:55 Novolog Vial Sliding Scale - SQ 10 unit ACHS ARVIND Administration Protocol Insulin Detemir 28 units 08/09/16 22:00 Levemir Vial SQ HS ARVIND Insulin Detemir 5 units 08/10/16 07:00 Levemir Vial SQ DAILY@0700 [facility] Methylprednisolone Sodium Succinate 40 mg 08/09/16 22:00 Solu-Medrol - IVPB Q12H [facility] Tamsulosin HCl 0.4 mg 08/06/16 08:30 08/09/16 08:02 Flomax - PO 0.4 mg DAILY@0830 [facility] Administration Verapamil HCl 240 mg 08/05/16 14:00 08/09/16 10:19 Calan Sr - PO 240 mg BID [facility] Administration Impression 1. azotemia 2. CHF 3. obstructive sleep apnea 4. obesity 5. DM 6. HTN 7. hyperlipidemia Plan - cont with PO lasix - repeat labs in am - volume status is improved - bipap prn - will need to be followed as outpt Dr Aguilar
[2016-08-09] MEDS: ATORVASTATIN CA 40 MG TABLET (FP) PO SCH (21:43)
[2016-08-09] MEDS ORDERED: INSULIN DETEMIR 100 UNITS/ML MDV SQ SCH (22:00)
[2016-08-10] MEDS ORDERED: FUROSEMIDE 40 MG TABLET (FP) PO SCH (06:00)
[2016-08-10] MEDS: GABAPENTIN 100 MG CAPSULE (FP) PO SCH (06:31)
[2016-08-10] MEDS: INSULIN SLIDING SCALE (NOVOLOG) 1 VIAL SQ SCH ×2 (06:34→11:30)
[2016-08-10] MEDS ORDERED: INSULIN DETEMIR 100 UNITS/ML MDV SQ SCH (07:00)
[2016-08-10 07:29] LABS: MCH 30.1 pg (25.7-33.7); MCHC 33.9 g/dl (32.0-35.9); MEAN PLT VOLUME 8.9 fl (7.5-11.1); PLATELET COUNT 227 K/MM3 (134-434); RDW 14.7 % (11.9-15.9); WHITE BLOOD COUNT 14.7 K/mm3 (4.0-10.0)
[2016-08-10 08:08] LABS: CREATININE 1.2 mg/dL (0.7-1.3)
[2016-08-10] MEDS: TAMSULOSIN HCL 0.4 MG CAP.ER.24H (FP) PO SCH (09:00)
[2016-08-10 09:16] LABS: PLATELET ESTIMATE ADEQUATE (NORMAL)
[2016-08-10] MEDS: APIXABAN 5 MG TABLET PO SCH (10:16)
[2016-08-10] MEDS: VERAPAMIL HCL 240 MG E.R. TABLET (FP) PO SCH (10:16)
[2016-08-10] MEDS: methylPREDNISolone NA SUCC 40 MG/1 ML VIAL IVPB SCH (10:16)
[2016-08-10] MEDS: BUDESONIDE/FORMETEROL FUMARATE 160/4.5 mcg INHALER IH SCH (10:17)
--- NOTE | 2016-08-10 10:26 | PN ---
Progress Note (short form) - Note Progress Note: Overall breathing feels better. Used NIPPV overnight without issues. Intake & Output 08/07/16 08/08/16 08/09/16 08/10/16 23:59 23:59 23:59 23:59 Intake Total 790 900 950 200 Output Total 700 1700 400 Balance 90 900 -750 -200 Weight 342 lb 14.4 oz 339 lb 4.8 oz 338 lb 12.8 oz 340 lb 8 oz Last Vital Signs Temp Pulse Resp BP Pulse Ox 97.5 F L 93 H 18 135/71 96 08/10/16 09:17 08/10/16 09:17 08/10/16 09:17 08/10/16 09:17 08/10/16 00:30 Active Medications Acetaminophen (Tylenol -) 650 mg PO Q6H PRN PRN Reason: FEVER OR PAIN Last Admin: 08/05/16 14:25 Dose: 650 mg Albuterol/Ipratropium (Duoneb -) 1 amp NEB Q6H PRN PRN Reason: SHORTNESS OF BREATH Apixaban (Eliquis -) 5 mg PO BID [facility] Last Admin: 08/10/16 10:16 Dose: 5 mg Atorvastatin Calcium (Lipitor -) 40 mg PO HS [facility] Last Admin: 08/09/16 21:43 Dose: 40 mg Budesonide/Formoterol Fumarate (Symbicort 160/4.5mcg -) 2 puff IH BID [facility] Last Admin: 08/10/16 10:17 Dose: 2 puff Furosemide (Lasix -) 40 mg PO BID@0600,1400 [facility] Last Admin: 08/10/16 06:31 Dose: 40 mg Gabapentin (Neurontin -) 100 mg PO TID [facility] Last Admin: 08/10/16 06:31 Dose: 100 mg Insulin Aspart (Novolog Vial Sliding Scale -) 1 vial SQ ACHS [facility] PRN Reason: Protocol Last Admin: 08/10/16 06:34 Dose: 4 unit Insulin Detemir (Levemir Vial) 28 units SQ HS [facility] Last Admin: 08/09/16 21:45 Dose: 28 unit Insulin Detemir (Levemir Vial) 5 units SQ DAILY@0700 [facility] Last Admin: 08/10/16 06:32 Dose: 5 unit Methylprednisolone Sodium Succinate (Solu-Medrol -) 40 mg IVPB Q12H [facility] Last Admin: 08/10/16 10:16 Dose: 40 mg Tamsulosin HCl (Flomax -) 0.4 mg PO DAILY@0830 [facility] Last Admin: 08/10/16 09:00 Dose: 0.4 mg Verapamil HCl (Calan Sr -) 240 mg PO BID [facility] Last Admin: 08/10/16 10:16 Dose: 240 mg General: NAD Cardiovascular: Yes: S1, S2 Respiratory: Yes: Diminished at the bases, few scattered rhonhci Gastrointestinal: Yes: Normal Bowel Sounds, Soft Labs: Laboratory Results - last 24 hr 08/09/16 08/09/16 08/09/16 11:16 16:54 21:42 WBC RBC Hgb Hct MCV MCHC RDW Plt Count MPV Neutrophils % Lymphocytes % Monocytes % Platelet Estimate Sodium Potassium Chloride Carbon Dioxide Anion Gap BUN Creatinine POC Glucometer 387 382 271 Random Glucose Calcium 08/10/16 08/10/16 08/10/16 06:00 06:00 06:32 WBC 14.7 H RBC 4.50 Hgb 13.6 Hct 40.1 MCV 89.0 MCHC 33.9 RDW 14.7 Plt Count 227 MPV 8.9 Neutrophils % 90.0 H Lymphocytes % 6.0 L Monocytes % 4.0 Platelet Estimate Adequate Sodium 139 Potassium 4.4 Chloride 97 L Carbon Dioxide 31 Anion Gap 11 BUN 30 H Creatinine 1.2 POC Glucometer 236 Random Glucose 251 H Calcium 9.0 Problem List - Problems (1) Acute exacerbation of chronic obstructive pulmonary disease (COPD) Code(s): J44.1 - CHRONIC OBSTRUCTIVE PULMONARY DISEASE W (ACUTE) EXACERBATION (2) Asthma Code(s): J45.909 - UNSPECIFIED ASTHMA, UNCOMPLICATED (3) Diabetes mellitus Code(s): E11.9 - TYPE 2 DIABETES MELLITUS WITHOUT COMPLICATIONS Qualifiers: Diabetes mellitus type: type 2 Diabetes mellitus complication status: with other specified complication (4) Acute CHF Code(s): I50.9 - HEART FAILURE, UNSPECIFIED Qualifiers: Congestive heart failure type: unspecified congestive heart failure type Qualified Code(s): I50.9 - Heart failure, unspecified (5) Acute bronchitis with COPD Code(s): J44.0 - CHRONIC OBSTRUCTIVE PULMON DISEASE W ACUTE LOWER RESP INFCT (6) Acute on chronic respiratory failure with hypoxemia Code(s): J96.21 - ACUTE AND CHRONIC RESPIRATORY FAILURE WITH HYPOXIA (7) Atrial fibrillation Code(s): I48.91 - UNSPECIFIED ATRIAL FIBRILLATION Qualifiers: Atrial fibrillation type: unspecified Qualified Code(s): I48.91 - Unspecified atrial fibrillation (8) Dyspnea Code(s): R06.00 - DYSPNEA, UNSPECIFIED Qualifiers: Dyspnea type: shortness of breath Qualified Code(s): R06.02 - Shortness of breath (9) Edema Code(s): R60.9 - EDEMA, UNSPECIFIED (10) HTN (hypertension) Code(s): I10 - ESSENTIAL (PRIMARY) HYPERTENSION (11) Morbid obesity Code(s): E66.01 - MORBID (SEVERE) OBESITY DUE TO EXCESS CALORIES Qualifiers: Obesity type: due to excess calories Qualified Code(s): E66.01 - Morbid (severe) obesity due to excess calories (12) Obstructive sleep apnea Code(s): G47.33 - OBSTRUCTIVE SLEEP APNEA (ADULT) (PEDIATRIC) (13) Shortness of breath Code(s): R06.02 - SHORTNESS OF BREATH PLAN: Prednisone taper Symbicort BID NIPPV QHS and PRN O2 as needed VTE prophylaxis No Pulmonary contraindication for D/C Dr Emanuel
[2016-08-10] MEDS ORDERED: INSULIN (NOVOLOG) ASPART 100 UNITS/ML 10ML VIAL ONE (11:45)
--- NOTE | 2016-08-10 12:21 | PN ---
Progress Note (short form) - Note Progress Note: Chief Complaint: sob, chf History of Present Illness: transitioned to po lasix yesterday. breathing improved, near baseline no cp, syncope, palps Current Medications Acetaminophen (Tylenol -) 650 mg PO Q6H PRN PRN Reason: FEVER OR PAIN Last Admin: 08/05/16 14:25 Dose: 650 mg Albuterol/Ipratropium (Duoneb -) 1 amp NEB Q6H PRN PRN Reason: SHORTNESS OF BREATH Apixaban (Eliquis -) 5 mg PO BID [facility] Last Admin: 08/10/16 10:16 Dose: 5 mg Atorvastatin Calcium (Lipitor -) 40 mg PO HS [facility] Last Admin: 08/09/16 21:43 Dose: 40 mg Budesonide/Formoterol Fumarate (Symbicort 160/4.5mcg -) 2 puff IH BID [facility] Last Admin: 08/10/16 10:17 Dose: 2 puff Furosemide (Lasix -) 40 mg PO BID@0600,1400 [facility] Last Admin: 08/10/16 06:31 Dose: 40 mg Gabapentin (Neurontin -) 100 mg PO TID [facility] Last Admin: 08/10/16 06:31 Dose: 100 mg Insulin Aspart (Novolog Vial Sliding Scale -) 1 vial SQ ACHS [facility] PRN Reason: Protocol Last Admin: 08/10/16 11:30 Dose: 6 unit Insulin Detemir (Levemir Vial) 28 units SQ HS [facility] Last Admin: 08/09/16 21:45 Dose: 28 unit Insulin Detemir (Levemir Vial) 5 units SQ DAILY@0700 [facility] Last Admin: 08/10/16 06:32 Dose: 5 unit Methylprednisolone Sodium Succinate (Solu-Medrol -) 40 mg IVPB Q12H [facility] Last Admin: 08/10/16 10:16 Dose: 40 mg Tamsulosin HCl (Flomax -) 0.4 mg PO DAILY@0830 [facility] Last Admin: 08/10/16 09:00 Dose: 0.4 mg Verapamil HCl (Calan Sr -) 240 mg PO BID [facility] Last Admin: 08/10/16 10:16 Dose: 240 mg Vital Signs - 24 hr 08/09/16 08/09/16 08/09/16 14:14 15:04 17:50 Temperature 98.3 F 97.4 F L Pulse Rate 84 92 H Respiratory 21 20 Rate Blood Pressure 127/79 108/56 O2 Sat by Pulse 96 Oximetry (%) 08/09/16 08/09/16 08/10/16 21:00 22:00 00:30 Temperature 97.8 F Pulse Rate 85 Respiratory 20 Rate Blood Pressure 136/77 O2 Sat by Pulse 95 96 Oximetry (%) 08/10/16 08/10/16 05:47 09:17 Temperature 97.6 F 97.5 F L Pulse Rate 81 93 H Respiratory 22 18 Rate Blood Pressure 113/73 135/71 O2 Sat by Pulse Oximetry (%) Intake & Output 08/08/16 08/09/16 08/10/16 08/11/16 07:59 07:59 07:59 07:59 Intake Total 740 900 900 200 Output Total 700 2100 Balance 40 900 -1200 200 Weight 339 lb 4.8 oz 338 lb 12.8 oz 340 lb 8 oz Constitutional: Yes: No Distress, Calm, Obese Cardiovascular: Yes: Regular Rate and Rhythm (decr intensity, unchanged), S1, S2. No: Gallop, Murmur Respiratory: Yes: Regular, CTA Bilaterally (decr intensity). No: Accessory Muscle Use, Rales, Wheezes Extremities: No: Cold Edema: Yes (trace ankles) Neurological: Yes: Alert, Oriented Psychiatric: No: Agitated Labs: CBC, BMP 08/10/16 06:00 08/10/16 06:00 Assessment/Plan CXR: no acute pathology echo 07/2016: Nl lv/rv. 1+ AR Echo 08/2015: tds, nl lv/rv, no sig valve path mibi 12/2012: small posterior ischemia vs artifact, nl lvef, no tid 10/2015 CT scan negative for PE a/p: 71 yo male with h/o AFib s/p prior DCCV 12/2015 to SR on AC, HTN, HL, PVCs with palpitations, morbid obesity, LUCY on bipap, severe COPD, here with sob. a.e. COPD (end-stage copd on home O2)/ acute diastolic chf: - has tendency towards volume retention felicia when receives steroids for copd exacerbation - no chf on cxr here - d/c wt on 06/30 was 339 lbs, and on 07/19 was 338 lbs -says wt fluctuated since d/c 07/19, up to 350, was 345 at home on DOA last week - wt here 344 lbs-->342 s/p lasix 40 ivp x 1...assessment is somewhat difficult given pt's obesity and wt trend in past can jump significantly from caloric intake as well -chronic venous ins'y sec to obesity, likely worsened by hi dose CCB -suspect the wt trend at home was in part fluid retention (and he had episode of 10 lb wt gain in few days prior to last admit as well--per VNS chf monitoring home wts) - will give trial lasix 40 iv qd while here to see if signif wt comes off and bun/creat tolerates--depending on response of wt and labs, consider 80 ivp trial next -08/09: wt down 3 lbs the day after received dose of empiric lasix 40 iv x1; then 1 more lb today (338); bun/creat and bicarb rising slightly--likely becoming intravasc depleted -prefer to run him on the dry side to try to optimize resp status as much as possible and decr likelihood of recurrent hospitalizations (though suspect it is a minor contributor here, compared to severity of copd) -will give one more dose lasix 40 iv today, cont 40 po bid as of tomorrow (08/10) - 08/10: weight slightly up after transition to PO. Daily home weights and close outpatient follow up with his clinical leader to monitor for need to adjust regimen. - no signs of acs - copd/lucy tx per pulm paroxysmal AF/flutter -cont eliquis for AC -new dx 2015--req'd amio for HR control then (now off due to severe lung dz), s/ p successful DCCV 12/24, then reverted to afib -dig added on last admission--rate has been adequately controlled with the combo of diltiazem hi dose, and dilt -dig level good, cont same -avoiding BB given severe bronchospasm/copd; would like to avoid long-term amio for same reason hld: -continue statin htn: -stable on current meds ? cad: -pt had borderline positive mibi in 2012 vs soft tissue attenuation artifact -never had angina sx's -no signs acs here -continue medical management with statin, AC without ASA
[2016-08-10 14:33] VITALS: BP 129/82; PULSE 88; TEMP 97
--- NOTE | 2016-08-10 15:06 | DS ---
Physical Examination Vital Signs: Vital Signs Temperature 97.0 F L 08/10/16 14:27 Pulse Rate 88 08/10/16 14:27 Respiratory Rate 20 08/10/16 14:27 Blood Pressure 129/82 08/10/16 14:27 O2 Sat by Pulse Oximetry (%) 94 L 08/10/16 09:00 Constitutional: Yes: Mild Distress Eyes: Yes: WNL HENT: Yes: WNL Neck: Yes: WNL Cardiovascular: Yes: Pulse Irregular Respiratory: Yes: On Nasal O2, Poor Air Entry Gastrointestinal: Yes: WNL Edema: Yes Peripheral Pulses WNL: Yes Integumentary: Yes: WNL Wound/Incision: Yes: Clean/Dry Neurological: Yes: WNL ...Motor Strength: WNL Psychiatric: Yes: WNL Labs: CBC, BMP 08/10/16 06:00 08/10/16 06:00 Discharge Summary Reason For Visit: SOB Current Active Problems Asthma (Acute) Diabetes mellitus (Acute) Influenza A (Acute) Procedures: Principal: cxr/labs Hospital Course: admitted acute copd exacerbation acute on chronic with decompensated acute on chronic chf systolic failure, treated on nebs,steroids, 02 support, doing better f/u as outpatient Condition: Guarded - Instructions Diet, Activity, Other Instructions: low salt ada Referrals: Mars Brothers MD [Primary Care Provider] - Disposition: HOME - Home Medications Comprehensive Discharge Medication List: Ambulatory Orders Atorvastatin Ca [Lipitor] 10 mg PO HS tablet 08/23/15 Albuterol 0.083% Nebulizer Cielo [Ventolin 0.083% Nebulizer Soln -] 1 amp NEB PRN 06/25/16 Levalbuterol Tartrate [Xopenex Hfa] 2 puff IH PRN 06/25/16 Budesonide/Formeterol Fumarate [SYMBICORT 160/4.5mcg -] 2 puff IH BID inhaler 06/30/16 Acetaminophen [Tylenol .Regular Strength -] 650 mg PO Q6H PRN #0 tablet Apixaban [Eliquis -] 5 mg PO BID tablet 07/15/16 Insulin (Levemir) [Levemir Vial] 23 units SQ BIDI ml 07/15/16 Tamsulosin HCl [Flomax -] 0.4 mg PO DAILY@0830 cap.er.24h 07/15/16 Furosemide [Lasix -] 40 mg PO BID@0600,1400 #60 tablet 07/19/16 Gabapentin [Neurontin -] 100 mg PO TID #90 capsule 07/19/16 Verapamil HCl ER [Calan Sr -] 240 mg PO BID #60 tablet.er 07/19/16 Insulin (Novolog) [Novolog Flexpen -] 0 units SQ ACHS 08/05/16 Acetaminophen [Tylenol .Regular Strength -] 650 mg PO Q6H PRN #0 tablet Albuterol 2.5/Ipratropium 0.5 [Duoneb -] 1 amp NEB Q6H PRN #0 amp 08/10/16 Apixaban [Eliquis -] 5 mg PO BID tablet 08/10/16 Atorvastatin Ca [Lipitor] 40 mg PO HS tablet 08/10/16 Budesonide/Formeterol Fumarate [SYMBICORT 160/4.5mcg -] 2 puff IH BID inhaler 08/10/16 Furosemide [Lasix -] 40 mg PO BID@0600,1400 tablet 08/10/16 Gabapentin [Neurontin -] 100 mg PO TID capsule 08/10/16 Insulin (Levemir) [Levemir Vial] 23 units SQ HS ml 08/10/16 Insulin (Levemir) [Levemir Vial] 28 units SQ HS ml 08/10/16 Insulin Sliding Scale [Novolog Vial Sliding Scale -] 1 vial SQ ACHS units 08/10 Tamsulosin HCl [Flomax -] 0.4 mg PO DAILY@0830 cap.er.24h 08/10/16 Verapamil HCl ER [Calan Sr -] 240 mg PO BID tablet.er 08/10/16
--- NOTE | 2016-08-10 15:45 | PN ---
Progress Note, Physician History of Present Illness: Pt seen and examined at bedside. He is awake and alert. he feels better and is eager to go home. - Objective Vital Signs: Vital Signs Temperature 97.0 F L 08/10/16 14:27 Pulse Rate 88 08/10/16 14:27 Respiratory Rate 20 08/10/16 14:27 Blood Pressure 129/82 08/10/16 14:27 O2 Sat by Pulse Oximetry (%) 94 L 08/10/16 09:00 Constitutional: Yes: Calm Eyes: Yes: Conjunctiva Clear HENT: Yes: Atraumatic Cardiovascular: Yes: S1, S2 Respiratory: Yes: Diminished, On BiPap Gastrointestinal: Yes: Soft, Abdomen, Obese Genitourinary: Yes: WNL Edema: No Neurological: Yes: Oriented Psychiatric: Yes: Oriented Labs: CBC, BMP 08/10/16 06:00 08/10/16 06:00 Problem List - Problems (1) Asthma Code(s): J45.909 - UNSPECIFIED ASTHMA, UNCOMPLICATED (2) Diabetes mellitus Code(s): E11.9 - TYPE 2 DIABETES MELLITUS WITHOUT COMPLICATIONS Qualifiers: Diabetes mellitus type: type 2 Diabetes mellitus complication status: with other specified complication (3) Atrial fibrillation Code(s): I48.91 - UNSPECIFIED ATRIAL FIBRILLATION Qualifiers: Atrial fibrillation type: unspecified Qualified Code(s): I48.91 - Unspecified atrial fibrillation (4) Azotemia Code(s): R79.89 - OTHER SPECIFIED ABNORMAL FINDINGS OF BLOOD CHEMISTRY Assessment/Plan Impression 1. azotemia 2. CHF 3. obstructive sleep apnea 4. obesity 5. DM 6. HTN 7. hyperlipidemia Plan - cont with lasix - will need outpt follow up - bipap as needed - will follow as outpt Dr Aguilar
== END 2016-08-10 14:41 | disposition home or self-care (01) | DRG 190 ==
LOC: JER 10:17 → JERBED 14:41 → J7W 08-06 13:42
PROVIDERS: ADMIT Family Medicine; ATTEND Family Medicine
DX: J44.0 Chronic obstructive pulmonary disease with (acute) lower respiratory infection (principal); J96.21 Acute and chronic respiratory failure with hypoxia; I50.33 Acute on chronic diastolic (congestive) heart failure; Z68.42 Body mass index [BMI] 45.0-49.9, adult; I42.9 Cardiomyopathy, unspecified; J44.1 Chronic obstructive pulmonary disease with (acute) exacerbation; I48.91 Unspecified atrial fibrillation; I25.10 Atherosclerotic heart disease of native coronary artery without angina pectoris; Z87.891 Personal history of nicotine dependence; K76.0 Fatty (change of) liver, not elsewhere classified; E66.01 Morbid (severe) obesity due to excess calories; J20.9 Acute bronchitis, unspecified; Z71.3 Dietary counseling and surveillance; G47.33 Obstructive sleep apnea (adult) (pediatric); I11.0 Hypertensive heart disease with heart failure; I87.2 Venous insufficiency (chronic) (peripheral); R79.89 Other specified abnormal findings of blood chemistry
CPT/HCPCS: 36415; 71010-TC; 80048; 80053; 80162; 81003; 82550; 82553; 83880; 84484; 85025; 87081; 93005; 93010; 94660; 99285-25

== ENCOUNTER 2016-08-26 13:49 | Inpatient (IN) | payer OTHER ==
[2016-08-26 14:20] VITALS: BMI 47.9
[2016-08-26] MEDS ORDERED: ALBUTEROL SO4 2.5/IPRATROPIUM 0.5 INH SOL 3 ML VIAL.NEB. NEB ONE ×2 (14:56→15:51)
[2016-08-26] MEDS ORDERED: methylPREDNISolone NA SUCC 125 MG/2 ML VIAL ONE ×2 (14:56→15:06)
[2016-08-26] MEDS ORDERED: FUROSEMIDE 40 MG/4 ML INJECTABLE VIAL IVPUSH ONE (15:03)
[2016-08-26] MEDS ORDERED: FUROSEMIDE 40 MG/4 ML INJECTABLE VIAL ONE (15:06)
--- NOTE | 2016-08-26 15:09 | PDOC ---
History of Present Illness - General Chief Complaint: Shortness of Breath Stated Complaint: SOB Time Seen by Provider: 08/26/16 14:40 - History of Present Illness Initial Comments: 08/26/16 15:04 71-year-old male with a past medical history of CAD, atrial fibrillation, chronic ischemic heart disease, cardiomyopathy, CHF, fatty liver, COPD on home oxygen, AODM, and hyperlipidemia, who was most recently hospitalized 08/05/16 for exacerbation of COPD and exacerbation of CHF Patient states that he has been in his usual state of health, with no recent acute illness Patient states he was going to the [employer] this morning, was walking down his hallway, and had to stop 3 times because of shortness of breath He then went down to the lobby to go to his mailbox, and he got extremely short of breath, and had to call EMS He denies any chest pain or palpitations He denies any recent intercurrent illnesses He denies any cough or sputum production He denies any fevers or chills He said he was started on digoxin 2 weeks ago when most recently in the hospital He also states that his verapamil was increased to 240 mg twice a day He denies any other medication changes He states that he has not run out of any of his inhalers, and has a home nebulizer machine for use He states that in the past 24-48 hours his legs have been much more swollen than usual He denies any change in his Lasix dose He denies any other complaints at this time, and the remainder of the review of systems is negative Past History - Past Medical History Allergies/Adverse Reactions: Allergies Allergy/AdvReac Type Severity Reaction Status Date / Time No Known Allergies Allergy Verified 08/26/16 14:20 Home Medications: Ambulatory Orders Albuterol 0.083% Nebulizer Cielo [Ventolin 0.083%] 1 neb NEB Q4H PRN 08/26/16 Apixaban [Eliquis] 5 mg PO BID 08/26/16 Atorvastatin Ca [Lipitor] 10 mg PO HS 08/26/16 Budesonide/Formeterol Fumarate [SYMBICORT 80/4.5mcg -] 2 inh PO BID 08/26/16 Digoxin [Lanoxin -] 0.125 mg PO DAILY 08/26/16 Furosemide [Lasix] 40 mg PO DAILY 08/26/16 Gabapentin 100 mg PO BID 08/26/16 Insulin (Levemir) [Levemir Flexpen -] 23 units SQ BID 08/26/16 Prednisone 10 mg PO BID 08/26/16 Tamsulosin HCl [Flomax] 0.4 mg PO DAILY 08/26/16 Verapamil HCl [Verapamil ER] 240 mg PO DAILY 08/26/16 Anemia: No Cardiac Disorders: Yes (CAD, COARSE A.FIBRILATION, CHRONIC ISCHEMIC HEART DISEASE, CARDIOMYOPATHY) COPD: Yes (EMPHYSEMA) Diabetes: Yes (IDDM) Hypercholesterolemia: Yes Liver Disease: Yes (FATTY LIVER) Suicide Attempt (Hx): No - Surgical History Orthopedic Surgery: Yes (bilateral knee surgery 1974 left knee 1979) - Family Disease History Family Disease History: Heart Disease: Father - Immunization History Immunization Up to Date: Yes - Psycho/Social/Smoking Cessation Hx Anxiety: No Suicidal Ideation: No Smoking Status: Yes (QUIT 2011) Smoking History: Never smoked Have you smoked in the past 12 months: No Number of Cigarettes Smoked Daily: 0 If you are a former smoker, when did you quit?: 6 years ago Cigars Per Day: 0 Information on smoking cessation initiated: No Hx Alcohol Use: No Drug/Substance Use Hx: No Substance Use Type: None Hx Substance Use Treatment: No Review of Systems - Review of Systems Able to Perform ROS?: Yes Comments:: 08/26/16 15:09 12 point review of systems is as per history of present illness and otherwise negative *Physical Exam - Vital Signs Last Vital Signs Temp Pulse Resp BP Pulse Ox 97.2 F L 92 H 22 132/78 96 08/26/16 13:49 08/26/16 13:49 08/26/16 13:49 08/26/16 13:49 08/26/16 13:49 - Physical Exam Comments: 08/26/16 15:09 Physical exam Last Vital Signs Temp Pulse Resp BP Pulse Ox 97.2 F L 92 H 22 132/78 96 08/26/16 13:49 08/26/16 13:49 08/26/16 13:49 08/26/16 13:49 08/26/16 13:49 GENERAL: The patient is awake, alert, and answering questions HEAD: Normal with no signs of trauma. EYES: Sclera anicteric, conjunctiva normal. ENT: Mucous membranes moist NECK: Normal range of motion, supple LUNGS: There is a prolonged expiratory phase, and trace bibasilar rales Otherwise clear lungs bilaterally HEART: irregular rate and rhythm, normal S1 and S2 without murmur, rub or gallop. ABDOMEN: Soft, nontender, normoactive bowel sounds. No guarding, no rebound. No masses appreciated. EXTREMITIES: There is 3+ pitting pedal edema in the lower extremities bilaterally NEUROLOGICAL: Alert and oriented 3, answering questions, motor strength is full and equal in the upper lower extremity is bilaterally Grossly nonfocal neurologic exam PSYCH: Normal mood, normal affect. SKIN: Warm, Dry, ED Treatment Course - LABORATORY CBC & Chemistry Diagram: 08/30/16 05:35 08/30/16 05:35 - RADIOLOGY Radiology Studies Ordered: Category Date Time Status CHEST X-RAY PORTABLE* [RAD] Stat Radiology 08/26/16 14:54 Ordered Medical Decision Making - Medical Decision Making 08/26/16 15:10 EKG Atrial fibrillation with a ventricular response rate of 91 Normal axis Normal QRS duration Normal QTC Diffuse nonspecific ST-T wave abnormalities Most likely acute exacerbation of congestive heart failure, and COPD Will start with IV Lasix, Solu-Medrol, nebs 08/26/16 17:03 Laboratory Results - last 24 hr 08/26/16 08/26/16 08/26/16 15:04 15:04 15:04 WBC 11.5 H RBC 4.45 Hgb 13.3 Hct 39.8 MCV 89.5 MCHC 33.3 RDW 15.9 Plt Count 194 MPV 8.5 INR 1.28 H Sodium 141 Potassium 4.3 Chloride 104 Carbon Dioxide 26 Anion Gap 11 BUN 12 D Creatinine 0.9 D Creat Clearance w eGFR > 60 Random Glucose 173 H D Calcium 9.0 Magnesium 1.5 L D Total Bilirubin 0.8 D AST 14 L D ALT 32 Alkaline Phosphatase 82 D Creatine Kinase 138 Troponin I < 0.02 B-Natriuretic Peptide 161.01 H Total Protein 6.5 Albumin 3.6 Digoxin 08/26/16 15:04 WBC RBC Hgb Hct MCV MCHC RDW Plt Count MPV INR Sodium Potassium Chloride Carbon Dioxide Anion Gap BUN Creatinine Creat Clearance w eGFR Random Glucose Calcium Magnesium Total Bilirubin AST ALT Alkaline Phosphatase Creatine Kinase Troponin I B-Natriuretic Peptide Total Protein Albumin Digoxin 0.7717 L Chest x-ray No acute disease is seen in the chest, no change from prior study of 08/05/16 08/26/16 17:10 Patient almost feeling back to his baseline Due to his multiple medical problems and multiple comorbidities, will admit/ place in observation to start Case discussed with Dr. Hernandez *DC/Admit/Observation/Transfer Diagnosis at time of Disposition: COPD exacerbation, Edema - Discharge Dispostion Admit: Yes
[2016-08-26 15:19] LABS: MCH 29.8 pg (25.7-33.7); MCHC 33.3 g/dl (32.0-35.9); MEAN CELL VOLUME 89.5 fl (80-96); MEAN PLT VOLUME 8.5 fl (7.5-11.1); PLATELET COUNT 194 K/MM3 (134-434); RDW 15.9 % (11.9-15.9); WHITE BLOOD COUNT 11.5 K/mm3 (4.0-10.0)
[2016-08-26 15:34] LABS: ALBUMIN 3.6 g/dl (3.4-5.0); ANION GAP 11 (8-16); CO2 26 mmol/L (21-32); GLUCOSE,RANDOM 173 mg/dL (74-106); MAGNESIUM 1.5 mg/dL (1.8-2.4)
[2016-08-26 15:37] LABS: INR 1.28 (0.82-1.09); PROTHROMBIN TIME (PATIENT) 14.1 SEC (9.98-11.88)
[2016-08-26 15:38] LABS: BILIRUBIN,TOTAL 0.8 mg/dL (0.2-1.0); CREATININE 0.9 mg/dL (0.7-1.3); SGOT/AST 14 U/L (15-37); SGPT/ALT 32 U/L (12-78); TOT PROT 6.5 g/dl (6.4-8.2)
[2016-08-26 15:41] LABS: ALK PHOS 82 U/L (45-117); TROPONIN I < 0.02 ng/ml (0.00-0.05)
--- NOTE | 2016-08-26 16:00 | EKG ---
Test Reason : Blood Pressure : / mmHG Vent. Rate : 091 BPM Atrial Rate : 288 BPM P-R Int : 000 ms QRS Dur : 090 ms QT Int : 336 ms P-R-T Axes : 000 051 034 degrees QTc Int : 413 ms POOR DATA QUALITY, INTERPRETATION MAY BE ADVERSELY AFFECTED ATRIAL FIBRILLATION ABNORMAL ECG WHEN COMPARED WITH ECG OF 05-AUG-2016 12:11, NO SIGNIFICANT CHANGE WAS FOUND Confirmed by ALFONZO WILDE, MCKAY ([id number]) on 08/26/2016 4:00:16 PM Referred By: Confirmed By:MCKAY MEJÍA MD
[2016-08-26] MEDS ORDERED: MAGNESIUM SULF 50% (8.12 MEQ/2 ML-1 GM VIAL) IVPB ONE (17:01)
[2016-08-26] MEDS ORDERED: MAGNESIUM SULF 50% (8.12 MEQ/2 ML-1 GM VIAL) ONE (17:59)
[2016-08-26] MEDS ORDERED: FUROSEMIDE 40 MG/4 ML INJECTABLE VIAL IVPB PRN (18:57)
[2016-08-26 19:35] LABS: ARTERIAL BLD GAS O2 SATURATION 95.1 % (90-98.9); ARTERIAL BLOOD GAS BASE EXCESS 1.6 meq/l (-2-2); ARTERIAL BLOOD GAS HCO3 26.4 meq/L (22-26); ARTERIAL BLOOD GAS PO2 76.3 mmHg (80-100); ARTERIAL BLOOD GAS pH 7.39 (7.35-7.45)
[2016-08-26 19:36] LABS: ALLENS TEST POSITIVE; ART PUNCT SITE LEFT RADIAL; LPM/O2% 4L; PT. ON O2? YES; TYPE OF O2 NASAK
[2016-08-26 19:37] LABS: METHEMOGLOBIN 1.8 % (0.4-1.5)
[2016-08-26] MEDS: INSULIN SLIDING SCALE (NOVOLOG) 1 VIAL SQ SCH (22:11)
[2016-08-26] MEDS: APIXABAN 5 MG TABLET PO SCH (22:11)
[2016-08-26] MEDS: ATORVASTATIN CA 10 MG TABLET (FP) PO SCH (22:11)
[2016-08-26] MEDS: GABAPENTIN 100 MG CAPSULE (FP) PO SCH (22:11)
[2016-08-26] MEDS: BUDESONIDE/FORMETEROL FUMARATE 80/4.5 mcg INHALER IH SCH (22:11)
[2016-08-26] MEDS: INSULIN DETEMIR 100 UNITS/ML MDV SQ SCH (22:13)
[2016-08-26] MEDS: methylPREDNISolone NA SUCC 40 MG/1 ML VIAL IVPB SCH (22:18)
[2016-08-26] MEDS: ALBUTEROL SO4 0.083% IH SOL 2.5 MG/3 ML VIAL.NEB. NEB SCH (22:54)
[2016-08-27 01:35] LABS: TROPONIN I < 0.02 ng/ml (0.00-0.05)
[2016-08-27] MEDS: ALBUTEROL SO4 0.083% IH SOL 2.5 MG/3 ML VIAL.NEB. NEB SCH ×6 (02:20→22:21)
[2016-08-27] MEDS: methylPREDNISolone NA SUCC 40 MG/1 ML VIAL IVPB SCH ×3 (03:45→21:23)
[2016-08-27] MEDS: INSULIN SLIDING SCALE (NOVOLOG) 1 VIAL SQ SCH ×4 (06:08→21:24)
--- NOTE | 2016-08-27 08:47 | HP ---
Admitting History and Physical - Admission History of Present Illness: 71-year-old male with a past medical history of CAD, atrial fibrillation, chronic ischemic heart disease, cardiomyopathy, CHF, fatty liver, COPD on home oxygen, AODM, and hyperlipidemia, who was most recently hospitalized 08/05/16 for exacerbation of COPD and exacerbation of CHF PT STATES HE WAS WALKING AT HOME BECAME SOB - Past Medical History Cardiovascular: Yes: AFIB, HTN, Hyperlipdemia Pulmonary: Yes: COPD, O2 Dependent, Sleep Apnea Endocrine: Yes: Other (MORBIDLY OBESE) - Past Surgical History Past Surgical History: Yes: Tonsillectomy - Smoking History Smoking history: Never smoked Have you smoked in the past 12 months: No Aproximately how many cigarettes per day: 0 If you are a former smoker, when did you quit?: 6 years ago - Alcohol/Substance Use Hx Alcohol Use: No - Social History History of Recent Travel: No Home Medications - Allergies Allergies/Adverse Reactions: Allergies Allergy/AdvReac Type Severity Reaction Status Date / Time No Known Allergies Allergy Verified 08/26/16 14:20 - Home Medications Home Medications: Ambulatory Orders Albuterol 0.083% Nebulizer Cielo [Ventolin 0.083%] 1 neb NEB Q4H PRN 08/26/16 Apixaban [Eliquis] 5 mg PO BID 08/26/16 Atorvastatin Ca [Lipitor] 10 mg PO HS 08/26/16 Budesonide/Formeterol Fumarate [SYMBICORT 80/4.5mcg -] 2 inh PO BID 08/26/16 Digoxin [Lanoxin -] 0.125 mg PO DAILY 08/26/16 Furosemide [Lasix] 40 mg PO DAILY 08/26/16 Gabapentin 100 mg PO BID 08/26/16 Insulin (Levemir) [Levemir Flexpen -] 23 units SQ BID 08/26/16 Prednisone 10 mg PO BID 08/26/16 Tamsulosin HCl [Flomax] 0.4 mg PO DAILY 08/26/16 Verapamil HCl [Verapamil ER] 240 mg PO DAILY 08/26/16 Review of Systems - Review of Systems Cardiovascular: denies: Chest Pain Respiratory: reports: SOB, SOB on Exertion Gastrointestinal: denies: Abdominal Pain Physical Examination Vital Signs: Vital Signs Temperature 98.8 F 08/27/16 08:04 Pulse Rate 93 H 08/27/16 08:04 Respiratory Rate 20 08/27/16 08:04 Blood Pressure 113/67 08/27/16 08:04 O2 Sat by Pulse Oximetry (%) 97 08/27/16 06:00 Cardiovascular: Yes: S1, S2 Respiratory: Yes: Diminished, Rales Gastrointestinal: Yes: Normal Bowel Sounds, Soft Problem List - Problems (1) COPD exacerbation Assessment/Plan: IV STEROIDS NEBS O2 PULM Code(s): J44.1 - CHRONIC OBSTRUCTIVE PULMONARY DISEASE W (ACUTE) EXACERBATION (2) Acute CHF Assessment/Plan: IV LASIX CARDIO Code(s): I50.9 - HEART FAILURE, UNSPECIFIED Qualifiers: Congestive heart failure type: unspecified congestive heart failure type Qualified Code(s): I50.9 - Heart failure, unspecified (3) Atrial fibrillation Assessment/Plan: MONITOR RATE ON ELIQUIS Code(s): I48.91 - UNSPECIFIED ATRIAL FIBRILLATION Qualifiers: Atrial fibrillation type: unspecified Qualified Code(s): I48.91 - Unspecified atrial fibrillation (4) Morbid obesity Assessment/Plan: WT LOSS Code(s): E66.01 - MORBID (SEVERE) OBESITY DUE TO EXCESS CALORIES Qualifiers: Obesity type: due to excess calories Qualified Code(s): E66.01 - Morbid (severe) obesity due to excess calories
[2016-08-27] MEDS: GABAPENTIN 100 MG CAPSULE (FP) PO SCH ×2 (09:33→21:23)
[2016-08-27] MEDS: TAMSULOSIN HCL 0.4 MG CAP.ER.24H (FP) PO SCH (09:34)
[2016-08-27] MEDS: DIGOXIN 0.125 MG TABLET (FP) PO SCH (09:34)
[2016-08-27] MEDS: APIXABAN 5 MG TABLET PO SCH ×2 (09:34→21:23)
[2016-08-27] MEDS: BUDESONIDE/FORMETEROL FUMARATE 80/4.5 mcg INHALER IH SCH ×2 (09:36→21:35)
[2016-08-27 09:40] LABS: BASOPHIL 0.2 % (0-2.0); EOSINOPHIL 0.1 % (0-4.5); MCH 29.3 pg (25.7-33.7); MCHC 32.5 g/dl (32.0-35.9); MEAN CELL VOLUME 90.2 fl (80-96); MEAN PLT VOLUME 8.7 fl (7.5-11.1); NEUTROPHILS 93.2 % (42.8-82.8); PLATELET COUNT 202 K/MM3 (134-434); RDW 15.8 % (11.9-15.9)
[2016-08-27] MEDS: FUROSEMIDE 40 MG/4 ML INJECTABLE VIAL IVPB SCH ×2 (09:41→17:38)
[2016-08-27 09:51] LABS: ALBUMIN 3.5 g/dl (3.4-5.0); ANION GAP 13 (8-16); CALCIUM 9.1 mg/dL (8.5-10.1); CO2 25 mmol/L (21-32); MAGNESIUM 2.1 mg/dL (1.8-2.4)
[2016-08-27 09:59] LABS: ALK PHOS 83 U/L (45-117); BILIRUBIN,TOTAL 0.6 mg/dL (0.2-1.0); CREATININE 1.2 mg/dL (0.7-1.3); SGOT/AST 11 U/L (15-37); SGPT/ALT 32 U/L (12-78); TOT PROT 6.7 g/dl (6.4-8.2); TROPONIN I < 0.02 ng/ml (0.00-0.05)
[2016-08-27] MEDS ORDERED: FUROSEMIDE 40 MG TABLET (FP) PO SCH (10:00)
[2016-08-27 10:35] LABS: GLUCOSE,RANDOM 334 mg/dL (74-106)
--- NOTE | 2016-08-27 11:23 | CON.PULM ---
Consult Consult Specialty:: PULMONARY Referred by:: TERESA Reason for Consultation:: SOB - History of Present Illness Chief Complaint: SOB History of Present Illness: 71-year-old male with a past medical history of CAD, atrial fibrillation, chronic ischemic heart disease, cardiomyopathy, CHF, fatty liver, COPD on home oxygen, AODM, and hyperlipidemia, who was most recently hospitalized 08/05/16 for exacerbation of COPD and exacerbation of CHF Patient states that he has been in his usual state of health, with no recent acute illness Patient states he was going to the bank this morning, was walking down his hallway, and had to stop 3 times because of shortness of breath He then went down to the lobby to go to his mailbox, and he got extremely short of breath, and had to call EMS He denies any chest pain or palpitations He denies any recent intercurrent illnesses He denies any cough or sputum production He denies any fevers or chills He said he was started on digoxin 2 weeks ago when most recently in the hospital He also states that his verapamil was increased to 240 mg twice a day He denies any other medication changes He states that he has not run out of any of his inhalers, and has a home nebulizer machine for use He states that in the past 24-48 hours his legs have been much more swollen than usual He denies any change in his Lasix dose THIS IS THE PATIENT'S 5TH ADMISSION IN 8 WEEKS!!!! 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: No: Alzheimer's Cardio/Vascular: Yes: AFIB, HTN, Hyperlipdemia Pulmonary: Yes: COPD, O2 Dependent, Sleep Apnea Gastrointestinal: Yes: GERD Hepatobiliary: No: Cirrhosis Renal/: No: Renal Failure Heme/Onc: No: Anemia Infectious Disease: No: C-Diff Psych: No: Addictions Endocrine: Yes: Other (MORBIDLY OBESE) - Past Surgical History Past Surgical History: Yes: Tonsillectomy - Alcohol/Substance Use Hx Alcohol Use: No - Smoking History Smoking history: Never smoked Have you smoked in the past 12 months: No Aproximately how many cigarettes per day: 0 If you are a former smoker, when did you quit?: 6 years ago - Social History Usual Living Arrangement: Other History of Recent Travel: No Home Medications - Allergies Allergies/Adverse Reactions: Allergies Allergy/AdvReac Type Severity Reaction Status Date / Time No Known Allergies Allergy Verified 08/26/16 14:20 - Home Medications Home Medications: Ambulatory Orders Albuterol 0.083% Nebulizer Cielo [Ventolin 0.083%] 1 neb NEB Q4H PRN 08/26/16 Apixaban [Eliquis] 5 mg PO BID 08/26/16 Atorvastatin Ca [Lipitor] 10 mg PO HS 08/26/16 Budesonide/Formeterol Fumarate [SYMBICORT 80/4.5mcg -] 2 inh PO BID 08/26/16 Digoxin [Lanoxin -] 0.125 mg PO DAILY 08/26/16 Furosemide [Lasix] 40 mg PO DAILY 08/26/16 Gabapentin 100 mg PO BID 08/26/16 Insulin (Levemir) [Levemir Flexpen -] 23 units SQ BID 08/26/16 Prednisone 10 mg PO BID 08/26/16 Tamsulosin HCl [Flomax] 0.4 mg PO DAILY 08/26/16 Verapamil HCl [Verapamil ER] 240 mg PO DAILY 08/26/16 Family Disease History - Family Disease History Family History: Unremarkable Review of Systems - Review of Systems Constitutional: denies: Fever Eyes: denies: Blurred Vision HENT: denies: Difficult Swallowing Neck: denies: Decreased ROM Cardiovascular: reports: Shortness of Breath. denies: Chest Pain, Palpitations Respiratory: reports: Cough, Exercise Intolerance, SOB on Exertion, Wheezing. denies: Hemoptysis Gastrointestinal: denies: Abdominal Pain Genitourinary: denies: Burning Breasts: reports: No Symptoms Reported Musculoskeletal: denies: Back Pain Integumentary: reports: No Symptoms Neurological: reports: No Symptoms Endocrine: reports: No Symptoms Physical Exam Vital Sings: Vital Signs Temperature 98.8 F 08/27/16 08:04 Pulse Rate 93 H 08/27/16 09:34 Respiratory Rate 20 08/27/16 08:04 Blood Pressure 113/67 08/27/16 08:04 O2 Sat by Pulse Oximetry (%) 94 L 08/27/16 10:49 Constitutional: Yes: Calm Eyes: Yes: EOM Intact HENT: Yes: Normocephalic Neck: Yes: Trachea Midline Cardiovascular: Yes: Pulse Irregular, S1, S2 Gastrointestinal: Yes: Normal Bowel Sounds, Abdomen, Obese Renal/: Yes: WNL Musculoskeletal: Yes: WNL Edema: Yes Edema: LLE: 2+, RLE: 2+ Neurological: Yes: Alert Labs: CBC, BMP 08/27/16 08:43 08/27/16 08:43 ABG Results ABG pH 7.39 (7.35-7.45) 08/26/16 19:30 ABG pCO2 at Pt Temp 44.3 mmHg (35-45) 08/26/16 19:30 ABG pO2 at Pt Temp 76.3 mmHg (80-100) L D 08/26/16 19:30 ABG HCO3 26.4 meq/L (22-26) H 08/26/16 19:30 ABG O2 Sat (Measured) 95.1 % (90-98.9) 08/26/16 19:30 ABG O2 Content 18.4 % vol (15-22) 08/26/16 19:30 ABG Base Excess 1.6 meq/l (-2-2) 08/26/16 19:30 REST REVIEWED Imaging - Results Chest X-ray: Image Reviewed EKG: Report Reviewed Problem List - Problems (1) Asthma Code(s): J45.909 - UNSPECIFIED ASTHMA, UNCOMPLICATED (2) COPD exacerbation Code(s): J44.1 - CHRONIC OBSTRUCTIVE PULMONARY DISEASE W (ACUTE) EXACERBATION (3) Diabetes mellitus Code(s): E11.9 - TYPE 2 DIABETES MELLITUS WITHOUT COMPLICATIONS Qualifiers: Diabetes mellitus type: type 2 Diabetes mellitus complication status: with other specified complication (4) Acute bronchitis with COPD Code(s): J44.0 - CHRONIC OBSTRUCTIVE PULMON DISEASE W ACUTE LOWER RESP INFCT Assessment/Plan A/E COPD DOUBT PNA OSAS ON NIPPV M OBESE MULTIPLE MEDICAL PROBLEMS LISTED AGREE WITH CURRENT TREATMENT PLAN TAPER STEROIDS WOULD ADVISE SHORT TERM SNF Benson VASQUEZ MD
[2016-08-27] MEDS: VERAPAMIL HCL 240 MG E.R. TABLET (FP) PO SCH (11:39)
--- NOTE | 2016-08-27 11:39 | PN ---
Progress Note (short form) - Note Progress Note: ID consult dictated imp/reccd 71 year old man with CHF/COPD/obesity readmitted yesterday with worsening lower extremity edema and SOB no fevers or chills +MRSA colonization no signs infection continue contact isolation for MRSA no need for antibiotics at this time please call back if needed Problem List - Problems (1) Acute CHF Code(s): I50.9 - HEART FAILURE, UNSPECIFIED Qualifiers: Congestive heart failure type: unspecified congestive heart failure type Qualified Code(s): I50.9 - Heart failure, unspecified (2) COPD exacerbation Code(s): J44.1 - CHRONIC OBSTRUCTIVE PULMONARY DISEASE W (ACUTE) EXACERBATION (3) Morbid obesity Code(s): E66.01 - MORBID (SEVERE) OBESITY DUE TO EXCESS CALORIES Qualifiers: Obesity type: due to excess calories Qualified Code(s): E66.01 - Morbid (severe) obesity due to excess calories
[2016-08-27] MEDS: INSULIN DETEMIR 100 UNITS/ML MDV SQ SCH ×2 (11:40→21:23)
--- NOTE | 2016-08-27 12:26 | CON.CARD ---
Cardiology Consult (text) - Consultation Consultation Note: CC: SOB hpi: 71 yo male with h/o AFib s/p prior DCCV 12/2015 to SR on AC, HTN, HL, dchf , morbid obesity, LUCY on bipap, severe COPD, here with sob. Frequent recent admits for copd/chf. Had been feeling well at home after last dc but then this week he skipped several lasix doses and noticed legs more swollen and more oliveira than basenline. No cp, palps, dizzy, loc, pnd, orthopnea. After getting iv lasix here already starting to feel better. Sees dr richardson for cardio. PMH:per hpi past surg hx: Tonsillectomy Social hx: Former smoker fam hx: father with CVA ros: per hpi; no nvd, fever, damico, nasal congestion, muscle pain, rash, gib, hematuria meds: Home Medications Medication Instructions Recorded Albuterol 0.083% Nebulizer Cielo 1 neb NEB Q4H PRN 08/26/16 [Ventolin 0.083%] Apixaban [Eliquis] 5 mg PO BID 08/26/16 Atorvastatin Ca [Lipitor] 10 mg PO HS 08/26/16 Budesonide/Formeterol Fumarate 2 inh PO BID 08/26/16 [SYMBICORT 80/4.5mcg -] Digoxin [Lanoxin -] 0.125 mg PO DAILY 08/26/16 Furosemide [Lasix] 40 mg PO DAILY 08/26/16 Gabapentin 100 mg PO BID 08/26/16 Insulin (Levemir) [Levemir Flexpen 23 units SQ BID 08/26/16 -] Prednisone 10 mg PO BID 08/26/16 Tamsulosin HCl [Flomax] 0.4 mg PO DAILY 08/26/16 Verapamil HCl [Verapamil ER] 240 mg PO DAILY 08/26/16 Ambulatory Orders Atorvastatin Ca [Lipitor] 10 mg PO HS tablet 08/23/15 Albuterol 0.083% Nebulizer Cielo [Ventolin 0.083% Nebulizer Soln -] 1 amp NEB PRN 06/25/16 Levalbuterol Tartrate [Xopenex Hfa] 2 puff IH PRN 06/25/16 Budesonide/Formeterol Fumarate [SYMBICORT 160/4.5mcg -] 2 puff IH BID inhaler 06/30/16 Acetaminophen [Tylenol .Regular Strength -] 650 mg PO Q6H PRN #0 tablet Apixaban [Eliquis -] 5 mg PO BID tablet 07/15/16 Insulin (Levemir) [Levemir Vial] 23 units SQ BIDI ml 07/15/16 Tamsulosin HCl [Flomax -] 0.4 mg PO DAILY@0830 cap.er.24h 07/15/16 Furosemide [Lasix -] 40 mg PO BID@0600,1400 #60 tablet 07/19/16 Gabapentin [Neurontin -] 100 mg PO TID #90 capsule 07/19/16 Verapamil HCl ER [Calan Sr -] 240 mg PO BID #60 tablet.er 07/19/16 Insulin (Novolog) [Novolog Flexpen] 0 units SQ ACHS 08/05/16 pe: Vital Signs Period Temp Pulse Resp BP Sys/Park Pulse Ox Last 24 Hr 97.2 F-98.8 F 66-101 18-22 106-147/62-84 94-98 NAD, calm JVD difficult to assess due to size, neck supple cta bl, nl effort Irregularly, irregular nl s1, s2 no m/r/g + bs soft obese nt nd ext with trace-1+ edema. no cyanosis or clubbing + dp/pt no carotid bruits no jaundice, diaphoresis. aaox3 Laboratory Last Values WBC 13.0 K/mm3 (4.0-10.0) H 08/27/16 08:43 RBC 4.50 M/mm3 (4.00-5.60) 08/27/16 08:43 Hgb 13.2 GM/dL (11.7-16.9) 08/27/16 08:43 Hct 40.6 % (35.4-49) 08/27/16 08:43 MCV 90.2 fl (80-96) 08/27/16 08:43 MCHC 32.5 g/dl (32.0-35.9) 08/27/16 08:43 RDW 15.8 % (11.9-15.9) 08/27/16 08:43 Plt Count 202 K/MM3 (134-434) 08/27/16 08:43 MPV 8.7 fl (7.5-11.1) 08/27/16 08:43 Neutrophils % 93.2 % (42.8-82.8) H 08/27/16 08:43 Lymphocytes % 5.2 % (8-40) L 08/27/16 08:43 Monocytes % 1.3 % (3.8-10.2) L 08/27/16 08:43 Eosinophils % 0.1 % (0-4.5) D 08/27/16 08:43 Basophils % 0.2 % (0-2.0) 08/27/16 08:43 INR 1.28 (0.82-1.09) H 08/26/16 15:04 Puncture Site Left radial 08/26/16 19:30 ABG pH 7.39 (7.35-7.45) 08/26/16 19:30 ABG pCO2 at Pt Temp 44.3 mmHg (35-45) 08/26/16 19:30 ABG pO2 at Pt Temp 76.3 mmHg (80-100) L D 08/26/16 19:30 ABG HCO3 26.4 meq/L (22-26) H 08/26/16 19:30 ABG O2 Sat (Measured) 95.1 % (90-98.9) 08/26/16 19:30 ABG O2 Content 18.4 % vol (15-22) 08/26/16 19:30 ABG Base Excess 1.6 meq/l (-2-2) 08/26/16 19:30 Seth Test Positive 08/26/16 19:30 Carboxyhemoglobin 1.1 gm% (0.5-2.0) 08/26/16 19:30 Methemoglobin 1.8 % (0.4-1.5) H 08/26/16 19:30 O2 Delivery Device Nasak 08/26/16 19:30 Oxygen Flow Rate 4l 08/26/16 19:30 Sodium 136 mmol/L (136-145) 08/27/16 08:43 Potassium 4.4 mmol/L (3.5-5.1) 08/27/16 08:43 Chloride 98 mmol/L (98-107) 08/27/16 08:43 Carbon Dioxide 25 mmol/L (21-32) 08/27/16 08:43 Anion Gap 13 (8-16) 08/27/16 08:43 BUN 19 mg/dL (7-18) H D 08/27/16 08:43 Creatinine 1.2 mg/dL (0.7-1.3) D 08/27/16 08:43 Creat Clearance w eGFR > 60 (>60) 08/27/16 08:43 POC Glucometer 350 UNITS (()) 08/27/16 11:14 Random Glucose 334 mg/dL (74-106) H* D 08/27/16 08:43 Calcium 9.1 mg/dL (8.5-10.1) 08/27/16 08:43 Magnesium 2.1 mg/dL (1.8-2.4) D 08/27/16 08:43 Total Bilirubin 0.6 mg/dL (0.2-1.0) D 08/27/16 08:43 AST 11 U/L (15-37) L D 08/27/16 08:43 ALT 32 U/L (12-78) 08/27/16 08:43 Alkaline Phosphatase 83 U/L (45-117) 08/27/16 08:43 Creatine Kinase 165 IU/L (39-308) 08/27/16 08:43 Creatine Kinase Index 0.9 % (0.0-5.0) 08/27/16 00:00 CK-MB (CK-2) 1.533 ng/ml (0.5-3.6) 08/27/16 00:00 CK-MB (CK-2) Rel Index Cancelled 08/27/16 00:00 Troponin I < 0.02 ng/ml (0.00-0.05) 08/27/16 08:43 B-Natriuretic Peptide 161.01 pg/ml (5-125) H 08/26/16 15:04 Total Protein 6.7 g/dl (6.4-8.2) 08/27/16 08:43 Albumin 3.5 g/dl (3.4-5.0) 08/27/16 08:43 Digoxin 0.7717 ng/ml (0.8-2.0) L 08/26/16 15:04 ecg 08/26/16: afib, rate controlled, nl qtc, no ischemic changes cxr: clear lungs tele: afib, rate controlled echo 07/2016: Nl lv/rv. 1+ AR Echo 08/2015: tds, nl lv/rv, no sig valve path mibi 12/2012: small posterior ischemia vs artifact, nl lvef, no tid 10/2015 CT scan negative for PE a/p: 71 yo male with h/o AFib s/p prior DCCV 12/2015 to SR on AC, HTN, HL, dchf , PVCs with palpitations, morbid obesity, LUCY on bipap, severe COPD, here with sob. sob, acute diastolic chf/copd: - has tendency towards volume retention felicia when receives steroids for copd exacerbation - he also is often noncompliant with bid lasix and was only taking daily several days this week - here now with some mild vol overload with wt up from prior (dc wts usually 338 -9lbs) - no signs pulm edema, no signs acs - cont iv lasix as doing, monitor daily wts, chem7 - again reinforced importance of bid lasix to prevent fluid build up at home - copd/lucy tx per pulm paroxysmal AF/flutter -cont eliquis for AC -new dx 2015--req'd amio for HR control then (now off due to severe lung dz), s/ p successful DCCV 12/24, then reverted to afib -rate has been adequately controlled with the combo of calan and dig -dig level good here -avoiding BB given severe bronchospasm/copd; would like to avoid long-term amio for same reason hld: -continue statin htn: -stable on current meds possible cad: -pt had borderline positive mibi in 2012 vs soft tissue attenuation artifact -never had angina sx's -no signs acs here -continue medical management with statin, AC without ASA monitor on tele for now
--- NOTE | 2016-08-27 14:45 | CONSULT ---
Consult Consult Specialty:: Nephrology Reason for Consultation:: azotemia and fluid overload - History of Present Illness Chief Complaint: shortness of breath History of Present Illness: Pt is a 71 year old male with history of CHF, a-fib and HTN who presents to the ER with shortness of breath. He was recently discharged from the hospital after being admitted for similar symptoms. He says he gradually felt his shortness of breath returning. He was only able to walk a few steps before getting short of breath when he came back to the hospital. He denies chest pain. He does complain of lower extremity edema. He denies dysuria or hematuria. He was on lasix 40 mg PO twice a day at home. - History Source History Provided By: Patient - Past Medical History Cardio/Vascular: Yes: AFIB, HTN, Hyperlipdemia Pulmonary: Yes: COPD, O2 Dependent, Sleep Apnea Gastrointestinal: Yes: GERD Renal/: Yes: Renal Inusuff Endocrine: Yes: Other (MORBIDLY OBESE) - Past Surgical History Past Surgical History: Yes: Tonsillectomy - Alcohol/Substance Use Hx Alcohol Use: No - Smoking History Smoking history: Never smoked Have you smoked in the past 12 months: No Aproximately how many cigarettes per day: 0 If you are a former smoker, when did you quit?: 6 years ago - Social History Usual Living Arrangement: Other History of Recent Travel: No Home Medications - Allergies Allergies/Adverse Reactions: Allergies Allergy/AdvReac Type Severity Reaction Status Date / Time No Known Allergies Allergy Verified 08/26/16 14:20 - Home Medications Home Medications: Ambulatory Orders Albuterol 0.083% Nebulizer Cielo [Ventolin 0.083%] 1 neb NEB Q4H PRN 08/26/16 Apixaban [Eliquis] 5 mg PO BID 08/26/16 Atorvastatin Ca [Lipitor] 10 mg PO HS 08/26/16 Budesonide/Formeterol Fumarate [SYMBICORT 80/4.5mcg -] 2 inh PO BID 08/26/16 Digoxin [Lanoxin -] 0.125 mg PO DAILY 08/26/16 Furosemide [Lasix] 40 mg PO DAILY 08/26/16 Gabapentin 100 mg PO BID 08/26/16 Insulin (Levemir) [Levemir Flexpen -] 23 units SQ BID 08/26/16 Prednisone 10 mg PO BID 08/26/16 Tamsulosin HCl [Flomax] 0.4 mg PO DAILY 08/26/16 Verapamil HCl [Verapamil ER] 240 mg PO DAILY 08/26/16 Family Disease History - Family Disease History Family History: Denies Review of Systems - Review of Systems Constitutional: reports: No Symptoms Eyes: reports: No Symptoms HENT: reports: No Symptoms Neck: reports: No Symptoms Cardiovascular: reports: Edema, Shortness of Breath. denies: Chest Pain Respiratory: reports: SOB, SOB on Exertion Gastrointestinal: reports: No Symptoms Genitourinary: reports: No Symptoms Musculoskeletal: reports: No Symptoms Integumentary: reports: No Symptoms Neurological: reports: No Symptoms Endocrine: reports: No Symptoms Hematology/Lymphatic: reports: No Symptoms Psychiatric: reports: No Symptoms Physical Exam Vital Signs: Vital Signs Temperature 96.9 F L 08/27/16 13:27 Pulse Rate 90 08/27/16 13:27 Respiratory Rate 20 08/27/16 13:27 Blood Pressure 124/85 08/27/16 13:27 O2 Sat by Pulse Oximetry (%) 96 08/27/16 13:31 Constitutional: Yes: Calm Eyes: Yes: Conjunctiva Clear HENT: Yes: Atraumatic Neck: Yes: Supple Cardiovascular: Yes: Pulse Irregular, S1, S2 Respiratory: Yes: On BiPap Gastrointestinal: Yes: Normal Bowel Sounds, Soft Renal/: Yes: WNL Musculoskeletal: Yes: WNL Edema: Yes Edema: LLE: 2+, RLE: 2+ Neurological: Yes: Oriented Psychiatric: Yes: Oriented Labs: CBC, BMP 08/27/16 08:43 08/27/16 08:43 Laboratory Tests 08/06/16 08/07/16 08/26/16 20:00 06:00 15:04 BUN 24 H D Creatinine 1.1 Magnesium 1.5 L D Urine Protein Negative Urine Blood Negative 08/27/16 08:43 BUN Creatinine Magnesium 2.1 D Urine Protein Urine Blood Imaging - Results Chest X-ray: Report Reviewed Problem List - Problems (1) Asthma Code(s): J45.909 - UNSPECIFIED ASTHMA, UNCOMPLICATED (2) COPD exacerbation Code(s): J44.1 - CHRONIC OBSTRUCTIVE PULMONARY DISEASE W (ACUTE) EXACERBATION (3) Diabetes mellitus Code(s): E11.9 - TYPE 2 DIABETES MELLITUS WITHOUT COMPLICATIONS Qualifiers: Diabetes mellitus type: type 2 Diabetes mellitus complication status: with other specified complication (4) Edema Code(s): R60.9 - EDEMA, UNSPECIFIED (5) Acute CHF Code(s): I50.9 - HEART FAILURE, UNSPECIFIED Qualifiers: Congestive heart failure type: unspecified congestive heart failure type Qualified Code(s): I50.9 - Heart failure, unspecified (6) Azotemia Code(s): R79.89 - OTHER SPECIFIED ABNORMAL FINDINGS OF BLOOD CHEMISTRY (7) HTN (hypertension) Code(s): I10 - ESSENTIAL (PRIMARY) HYPERTENSION (8) Morbid obesity Code(s): E66.01 - MORBID (SEVERE) OBESITY DUE TO EXCESS CALORIES Qualifiers: Obesity type: due to excess calories Qualified Code(s): E66.01 - Morbid (severe) obesity due to excess calories (9) Shortness of breath Code(s): R06.02 - SHORTNESS OF BREATH Assessment/Plan Current Medications Generic Name Dose Route Start Last Admin Trade Name Freq PRN Reason Stop Dose Admin Albuterol Sulfate 1 amp 08/26/16 22:00 08/27/16 13:29 Ventolin 0.083% Nebulizer Soln - NEB Not Given Q4HPO ARVIND Apixaban 5 mg 08/26/16 22:00 08/27/16 09:34 Eliquis - PO 5 mg BID ARVIND Administration Atorvastatin Calcium 10 mg 08/26/16 22:00 08/26/16 22:11 Lipitor - PO 10 mg HS ARVIND Administration Budesonide/Formoterol Fumarate 2 puff 08/26/16 22:00 08/27/16 09:36 Symbicort 80/4.5mcg - IH Not Given BID ARVIND Digoxin 0.125 mg 08/27/16 10:00 08/27/16 09:34 Lanoxin - PO 0.125 mg DAILY ARVIND Administration Furosemide 40 mg 08/27/16 10:00 08/27/16 09:41 Lasix Injection - IVPB 40 mg BID@0600,1800 ARVIND Administration Gabapentin 100 mg 08/26/16 22:00 08/27/16 09:33 Neurontin - PO 100 mg BID ARVIND Administration Insulin Aspart 1 vial 08/26/16 22:00 08/27/16 11:41 Novolog Vial Sliding Scale - SQ 8 units ACHS ARVIND Administration Protocol Insulin Detemir 23 units 08/26/16 22:00 08/27/16 11:40 Levemir Vial SQ 23 units BID ARVIND Administration Methylprednisolone Sodium Succinate 40 mg 08/27/16 10:00 08/27/16 09:35 Solu-Medrol - IVPB 40 mg BID ARVIND Administration Tamsulosin HCl 0.4 mg 08/27/16 10:00 08/27/16 09:34 Flomax - PO 0.4 mg DAILY ARVIND Administration Verapamil HCl 240 mg 08/27/16 10:00 08/27/16 11:39 Calan Sr - PO 240 mg DAILY ARVIND Administration Impression 1. azotemia 2. CHF 3. obstructive sleep apnea 4. obesity 5. DM 6. HTN 7. hyperlipidemia 8. resp failure requiring bipap 9. hypomagnesemia Plan - continue with lasix - pt will likely need a higher dose at home - cont with IV lasix - monitor bmp - urine is negative for blood or protein - will follow pt - cont bipap Dr Aguilar
--- NOTE | 2016-08-27 16:56 | CONS ---
DATE OF CONSULTATION: DATE OF DICTATION: 08/27/2016 INFECTIOUS DISEASE CONSULTATION REQUESTING PHYSICIAN: Mars Brothers M.D. CONSULTING PHYSICIAN: Loere Breen M.D. HISTORY OF PRESENT ILLNESS: A 71-year-old man who has had multiple admissions to [facility]. He has a history of oxygen dependent COPD as well as CHF. He is morbidly obese. He presents with worsening lower extremity edema accompanied by acute worsening of his chronic dyspnea. There are no fevers or chills. He has no cough. His x-ray is consistent with CHF. We are asked to see him for possible antibiotics. He is awake and alert. He reports improvement already after being treated with diuretics yesterday. PAST MEDICAL HISTORY: His past medical history is notable for atrial fibrillation, hypertension, hyperlipidemia, O2 dependent, COPD, sleep apnea, morbid obesity, tonsillectomy in the past. FAMILY HISTORY: Notable for father with CVA. SOCIAL HISTORY: He is a former smoker. He lives alone. ALLERGIES: No known drug allergies. MEDICATION: At home include albuterol, Eliquis, Lipitor, Symbicort, Lanoxin, Lasix, gabapentin, insulin, prednisone, Flomax, and verapamil. REVIEW OF SYSTEMS: Notable for the fact that every once in a while if he is going out or something, he does skip a dose of Lasix, as it makes him urinate, and he is unable to get to the bathroom on time. He has no chest pain. He has no cough. He has no fevers or chills. PHYSICAL EXAMINATION: General: He is awake and alert. He reports marked improvement in his symptoms. Vital signs: Temperature 98.8. He has had no fevers since admission. Pulse is 101. Blood pressure 113/67. Saturating 94% on 2 L. HEENT: Normocephalic. Eyes are anicteric. He has no thrush . Neck: Supple. Lungs: Diminished breath sounds at the bases. Heart: Regular rate and rhythm. Abdomen: Soft, nontender. Extremities: Notable for 2+ edema. White count is 13 but he is on IV Solu-Medrol. Hemoglobin 13.2, platelets 202. BUN and creatinine are 19 and 1.2. Glucose is 334. LFTs are normal. Urinalysis is negative. Nares screen was drawn that shows MRSA. He has a history of prior MRSA in his sputum. Chest x-ray is consistent with no active disease. IMPRESSION: In summary, this is a 62-year-old man admitted with worsening lower extremity edema and shortness of breath consistent with congestive heart failure and chronic obstructive pulmonary disease. No signs of infection. Continue his contact isolation for methicillin resistant Staphylococcus aureus. No need for antibiotics at this time. Please call back if needed. Maty [id number]
[2016-08-27] MEDS: ATORVASTATIN CA 10 MG TABLET (FP) PO SCH (21:23)
[2016-08-28] MEDS: ALBUTEROL SO4 0.083% IH SOL 2.5 MG/3 ML VIAL.NEB. NEB SCH ×6 (03:04→22:56)
[2016-08-28] MEDS: INSULIN SLIDING SCALE (NOVOLOG) 1 VIAL SQ SCH ×4 (06:07→21:47)
[2016-08-28] MEDS: FUROSEMIDE 40 MG/4 ML INJECTABLE VIAL IVPB SCH ×2 (06:07→14:32)
[2016-08-28 08:47] LABS: CREATININE 1.1 mg/dL (0.7-1.3)
[2016-08-28] MEDS ORDERED: PT OWN MED DRAWER 7, Y5N ONE (08:51)
[2016-08-28] MEDS: DIGOXIN 0.125 MG TABLET (FP) PO SCH (09:13)
[2016-08-28] MEDS: APIXABAN 5 MG TABLET PO SCH ×2 (09:13→21:46)
[2016-08-28] MEDS: GABAPENTIN 100 MG CAPSULE (FP) PO SCH ×2 (09:13→21:47)
[2016-08-28] MEDS: TAMSULOSIN HCL 0.4 MG CAP.ER.24H (FP) PO SCH (09:13)
[2016-08-28] MEDS: VERAPAMIL HCL 240 MG E.R. TABLET (FP) PO SCH (09:14)
[2016-08-28] MEDS: methylPREDNISolone NA SUCC 40 MG/1 ML VIAL IVPB SCH ×2 (09:14→21:47)
[2016-08-28] MEDS: BUDESONIDE/FORMETEROL FUMARATE 80/4.5 mcg INHALER IH SCH ×2 (09:16→21:47)
[2016-08-28] MEDS: INSULIN DETEMIR 100 UNITS/ML MDV SQ SCH ×3 (11:45→17:02)
--- NOTE | 2016-08-28 11:45 | PN ---
Progress Note (short form) - Note Progress Note: s: no cp palps dizzy; sob and le edema improving o: Vital Signs Period Temp Pulse Resp BP Sys/Park Pulse Ox Last 24 Hr 96.9 F-98.3 F 88-115 18-22 110-127/48-93 95-100 NAD, calm JVD difficult to assess due to size, neck supple cta bl, nl effort Irregularly, irregular nl s1, s2 no m/r/g + bs soft obese nt nd ext with trace le edema. no cyanosis or clubbing no jaundice, diaphoresis. aaox3 Current Medications Generic Name Dose Route Start Last Admin Trade Name Freq PRN Reason Stop Dose Admin Albuterol Sulfate 1 amp 08/26/16 22:00 08/28/16 09:35 Ventolin 0.083% Nebulizer Soln - NEB 1 amp Q4HPO ARVIND Administration Apixaban 5 mg 08/26/16 22:00 08/28/16 09:13 Eliquis - PO 5 mg BID ARVIND Administration Atorvastatin Calcium 10 mg 08/26/16 22:00 08/27/16 21:23 Lipitor - PO 10 mg HS ARVIND Administration Budesonide/Formoterol Fumarate 2 puff 08/26/16 22:00 08/28/16 09:16 Symbicort 80/4.5mcg - IH 2 puff BID ARVIND Administration Digoxin 0.125 mg 08/27/16 10:00 08/28/16 09:13 Lanoxin - PO 0.125 mg DAILY ARVIND Administration Furosemide 40 mg 08/27/16 10:00 08/28/16 06:07 Lasix Injection - IVPB 40 mg BID@0600,1800 ARVIND Administration Gabapentin 100 mg 08/26/16 22:00 08/28/16 09:13 Neurontin - PO 100 mg BID ARVIND Administration Insulin Aspart 1 vial 08/26/16 22:00 08/28/16 06:07 Novolog Vial Sliding Scale - SQ 4 units ACHS ARVIND Administration Protocol Insulin Detemir 23 units 08/26/16 22:00 08/27/16 21:23 Levemir Vial SQ 23 units BID ARVIND Administration Methylprednisolone Sodium Succinate 40 mg 08/27/16 10:00 08/28/16 09:14 Solu-Medrol - IVPB 40 mg BID ARVIND Administration Tamsulosin HCl 0.4 mg 08/27/16 10:00 08/28/16 09:13 Flomax - PO 0.4 mg DAILY ARVIND Administration Verapamil HCl 240 mg 08/27/16 10:00 08/28/16 09:14 Calan Sr - PO 240 mg DAILY ARVIND Administration CBC, BMP 08/27/16 08:43 08/28/16 05:45 ecg 08/26/16: afib, rate controlled, nl qtc, no ischemic changes cxr: clear lungs tele: afib, rate controlled echo 07/2016: Nl lv/rv. 1+ AR Echo 08/2015: tds, nl lv/rv, no sig valve path mibi 12/2012: small posterior ischemia vs artifact, nl lvef, no tid 10/2015 CT scan negative for PE a/p: 71 yo male with h/o AFib s/p prior DCCV 12/2015 to SR on AC, HTN, HL, dchf , PVCs with palpitations, morbid obesity, NATHANIEL on bipap, severe COPD, here with sob. sob, acute diastolic chf/copd: - has tendency towards volume retention felicia when receives steroids for copd exacerbation - he also is often noncompliant with bid lasix and was only taking daily several days this week - here now with some mild vol overload with wt up from prior (dc wts usually 338 -9lbs) - no signs pulm edema, no signs acs - le edema and wt slightly better, cont iv lasix, monitor daily wts, chem7 - again reinforced importance of taking bid lasix upon dc to prevent fluid build up at home - copd/nathaniel tx per pulm paroxysmal AF/flutter -cont eliquis for AC -new dx 2015--req'd amio for HR control then (now off due to severe lung dz), s/ p successful DCCV 12/24, then reverted to afib -rate has been adequately controlled with the combo of calan and dig -dig level good here -avoiding BB given severe bronchospasm/copd; would like to avoid long-term amio for same reason hld: -continue statin htn: -stable on current meds possible cad: -pt had borderline positive mibi in 2012 vs soft tissue attenuation artifact -never had angina sx's -no signs acs here -continue medical management with statin, AC without ASA
--- NOTE | 2016-08-28 12:08 | PN ---
Progress Note (short form) - Note Progress Note: PULMONARY AWAKE/ON BIPAP VSS/AFEBRILE SUBJECTIVE IMPROVEMENT ANICTERIC DISTANT BREATH SOUNDS B/L S1S2 OBESE LESS EDEMA LOWER EXT LABS/MEDS/NOTES/IMAGING REVIEWED A/E COPD DOUBT PNA OSAS ON NIPPV M OBESE MULTIPLE MEDICAL PROBLEMS LISTED AGREE WITH CURRENT TREATMENT PLAN TAPER STEROIDS WOULD ADVISE SHORT TERM SNF WILL CHANGE TO ORAL STEROIDS TOM VASQUEZ MD Problem List - Problems (1) Asthma Code(s): J45.909 - UNSPECIFIED ASTHMA, UNCOMPLICATED (2) COPD exacerbation Code(s): J44.1 - CHRONIC OBSTRUCTIVE PULMONARY DISEASE W (ACUTE) EXACERBATION (3) Diabetes mellitus Code(s): E11.9 - TYPE 2 DIABETES MELLITUS WITHOUT COMPLICATIONS Qualifiers: Diabetes mellitus type: type 2 Diabetes mellitus complication status: with other specified complication (4) Acute bronchitis with COPD Code(s): J44.0 - CHRONIC OBSTRUCTIVE PULMON DISEASE W ACUTE LOWER RESP INFCT
--- NOTE | 2016-08-28 12:43 | PN ---
Progress Note, Physician History of Present Illness: Renal f/u Pt feels better and is in no distress with the BiPAP in place since he was sleeping when I first arrived - Current Medication List Current Medications: Active Medications Albuterol Sulfate (Ventolin 0.083% Nebulizer Soln -) 1 amp NEB Q4HPO [facility] Last Admin: 08/28/16 09:35 Dose: 1 amp Apixaban (Eliquis -) 5 mg PO BID [facility] Last Admin: 08/28/16 09:13 Dose: 5 mg Atorvastatin Calcium (Lipitor -) 10 mg PO HS [facility] Last Admin: 08/27/16 21:23 Dose: 10 mg Budesonide/Formoterol Fumarate (Symbicort 80/4.5mcg -) 2 puff IH BID [facility] Last Admin: 08/28/16 09:16 Dose: 2 puff Digoxin (Lanoxin -) 0.125 mg PO DAILY [facility] Last Admin: 08/28/16 09:13 Dose: 0.125 mg Furosemide (Lasix Injection -) 40 mg IVPB BID@0600,1800 [facility] Last Admin: 08/28/16 06:07 Dose: 40 mg Gabapentin (Neurontin -) 100 mg PO BID [facility] Last Admin: 08/28/16 09:13 Dose: 100 mg Insulin Aspart (Novolog Vial Sliding Scale -) 1 vial SQ ACHS [facility] PRN Reason: Protocol Last Admin: 08/28/16 11:45 Dose: 8 units Insulin Detemir (Levemir Vial) 23 units SQ BID [facility] Last Admin: 08/28/16 11:45 Dose: 23 units Methylprednisolone Sodium Succinate (Solu-Medrol -) 40 mg IVPB BID [facility] Last Admin: 08/28/16 09:14 Dose: 40 mg Tamsulosin HCl (Flomax -) 0.4 mg PO DAILY [facility] Last Admin: 08/28/16 09:13 Dose: 0.4 mg Verapamil HCl (Calan Sr -) 240 mg PO DAILY [facility] Last Admin: 08/28/16 09:14 Dose: 240 mg - Objective Vital Signs: Vital Signs Temperature 97.8 F 08/28/16 07:51 Pulse Rate 92 H 08/28/16 09:35 Respiratory Rate 22 08/28/16 08:00 Blood Pressure 125/85 08/28/16 07:51 O2 Sat by Pulse Oximetry (%) 97 08/28/16 09:35 Cardiovascular: Yes: Pulse Irregular, S1, S2 Respiratory: Yes: CTA Bilaterally Gastrointestinal: Yes: Soft, Abdomen, Obese. No: Tenderness, Rebound Edema: LLE: 1+, RLE: 1+ Labs: CBC, BMP 08/27/16 08:43 08/28/16 05:45 INR, PTT INR 1.28 (0.82-1.09) H 08/26/16 15:04 Assessment/Plan Impression 1. Azotemia with high BUN/Cr ratio on BID lasix and Steroids 2. CHF 3. obstructive sleep apnea 4. obesity 5. DM 6. HTN 7. hyperlipidemia 8. resp failure requiring bipap 9. hypomagnesemia Plan Continue with the BID lasix and steroids as ordered BiPAP Rpt labs in am Dr Contreras
--- NOTE | 2016-08-28 13:57 | PN ---
Progress Note, Physician Chief Complaint: FEELS BETTER - Current Medication List Current Medications: Active Medications Albuterol Sulfate (Ventolin 0.083% Nebulizer Soln -) 1 amp NEB Q4HPO [facility] Last Admin: 08/28/16 09:35 Dose: 1 amp Apixaban (Eliquis -) 5 mg PO BID [facility] Last Admin: 08/28/16 09:13 Dose: 5 mg Atorvastatin Calcium (Lipitor -) 10 mg PO HS [facility] Last Admin: 08/27/16 21:23 Dose: 10 mg Budesonide/Formoterol Fumarate (Symbicort 80/4.5mcg -) 2 puff IH BID [facility] Last Admin: 08/28/16 09:16 Dose: 2 puff Digoxin (Lanoxin -) 0.125 mg PO DAILY [facility] Last Admin: 08/28/16 09:13 Dose: 0.125 mg Furosemide (Lasix Injection -) 40 mg IVPB BID@0600,1400 [facility] Gabapentin (Neurontin -) 100 mg PO BID [facility] Last Admin: 08/28/16 09:13 Dose: 100 mg Insulin Aspart (Novolog Vial Sliding Scale -) 1 vial SQ [facility] PRN Reason: Protocol Last Admin: 08/28/16 11:45 Dose: 8 units Insulin Detemir (Levemir Vial) 23 units SQ BID [facility] Last Admin: 08/28/16 11:45 Dose: 23 units Methylprednisolone Sodium Succinate (Solu-Medrol -) 40 mg IVPB BID [facility] Last Admin: 08/28/16 09:14 Dose: 40 mg Tamsulosin HCl (Flomax -) 0.4 mg PO DAILY [facility] Last Admin: 08/28/16 09:13 Dose: 0.4 mg Verapamil HCl (Calan Sr -) 240 mg PO DAILY [facility] Last Admin: 08/28/16 09:14 Dose: 240 mg - Objective Vital Signs: Vital Signs Temperature 97.8 F 08/28/16 07:51 Pulse Rate 92 H 08/28/16 09:35 Respiratory Rate 22 08/28/16 08:00 Blood Pressure 125/85 08/28/16 07:51 O2 Sat by Pulse Oximetry (%) 97 08/28/16 09:35 Constitutional: Yes: Calm Cardiovascular: Yes: WNL Respiratory: Yes: WNL Gastrointestinal: Yes: WNL Edema: Yes Labs: CBC, BMP 08/27/16 08:43 08/28/16 05:45 INR, PTT INR 1.28 (0.82-1.09) H 08/26/16 15:04 Problem List - Problems (1) Asthma Code(s): J45.909 - UNSPECIFIED ASTHMA, UNCOMPLICATED (2) COPD exacerbation Code(s): J44.1 - CHRONIC OBSTRUCTIVE PULMONARY DISEASE W (ACUTE) EXACERBATION (3) Controlled diabetes mellitus with diabetic peripheral angiopathy without gangrene, without long-term current use of insulin Code(s): E11.51 - TYPE 2 DIABETES W DIABETIC PERIPHERAL ANGIOPATH W/O GANGRENE (4) Edema Code(s): R60.9 - EDEMA, UNSPECIFIED Assessment/Plan (1) COPD exacerbation Assessment/Plan: IV STEROIDS NEBS O2 PULM Code(s): J44.1 - CHRONIC OBSTRUCTIVE PULMONARY DISEASE W (ACUTE) EXACERBATION (2) Acute CHF Assessment/Plan: IV LASIX CARDIO Code(s): I50.9 - HEART FAILURE, UNSPECIFIED Qualifiers: Congestive heart failure type: unspecified congestive heart failure type Qualified Code(s): I50.9 - Heart failure, unspecified (3) Atrial fibrillation Assessment/Plan: MONITOR RATE ON ELIQUIS Code(s): I48.91 - UNSPECIFIED ATRIAL FIBRILLATION Qualifiers: Atrial fibrillation type: unspecified Qualified Code(s): I48.91 - Unspecified atrial fibrillation (4) Morbid obesity Assessment/Plan: WT LOSS Code(s): E66.01 - MORBID (SEVERE) OBESITY DUE TO EXCESS CALORIES Qualifiers: Obesity type: due to excess calories Qualified Code(s): E66.01 - Morbid (severe) obesity due to excess calories [employer]
[2016-08-28] MEDS ORDERED: INSULIN DETEMIR 100 UNITS/ML MDV SQ ONE (17:50)
[2016-08-28] MEDS ORDERED: INSULIN (NOVOLOG) ASPART 100 UNITS/ML 10ML VIAL ONE (17:50)
[2016-08-28] MEDS: ATORVASTATIN CA 10 MG TABLET (FP) PO SCH (21:46)
[2016-08-29] MEDS: ALBUTEROL SO4 0.083% IH SOL 2.5 MG/3 ML VIAL.NEB. NEB SCH ×6 (02:00→22:00)
--- NOTE | 2016-08-29 02:04 | CONSULT ---
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 Cardio/Vascular: Yes: AFIB, HTN, Hyperlipdemia Pulmonary: Yes: COPD, O2 Dependent, Sleep Apnea Gastrointestinal: Yes: GERD Hepatobiliary: No: Cirrhosis Renal/: Yes: Renal Inusuff Infectious Disease: No: C-Diff Psych: No: Addictions Endocrine: Yes: Other (MORBIDLY OBESE) - Past Surgical History Past Surgical History: Yes: Tonsillectomy - Alcohol/Substance Use Hx Alcohol Use: No - Smoking History Smoking history: Never smoked Have you smoked in the past 12 months: No Aproximately how many cigarettes per day: 0 If you are a former smoker, when did you quit?: 6 years ago - Social History Usual Living Arrangement: Other History of Recent Travel: No Home Medications - Allergies Allergies/Adverse Reactions: Allergies Allergy/AdvReac Type Severity Reaction Status Date / Time No Known Allergies Allergy Verified 08/26/16 14:20 - Home Medications Home Medications: Ambulatory Orders Albuterol 0.083% Nebulizer Cielo [Ventolin 0.083%] 1 neb NEB Q4H PRN 08/26/16 Apixaban [Eliquis] 5 mg PO BID 08/26/16 Atorvastatin Ca [Lipitor] 10 mg PO HS 08/26/16 Budesonide/Formeterol Fumarate [SYMBICORT 80/4.5mcg -] 2 inh PO BID 08/26/16 Digoxin [Lanoxin -] 0.125 mg PO DAILY 08/26/16 Furosemide [Lasix] 40 mg PO DAILY 08/26/16 Gabapentin 100 mg PO BID 08/26/16 Insulin (Levemir) [Levemir Flexpen -] 23 units SQ BID 08/26/16 Prednisone 10 mg PO BID 08/26/16 Tamsulosin HCl [Flomax] 0.4 mg PO DAILY 08/26/16 Verapamil HCl [Verapamil ER] 240 mg PO DAILY 08/26/16 Review of Systems - Review of Systems Constitutional: reports: Weakness Eyes: reports: Blurred Vision HENT: reports: No Symptoms Neck: reports: No Symptoms Cardiovascular: reports: Edema, Palpitations, Shortness of Breath Respiratory: reports: Exercise Intolerance, Orthopnea, SOB on Exertion, Wheezing Gastrointestinal: reports: Rectal Bleeding Genitourinary: reports: No Symptoms Breasts: reports: No Symptoms Reported Musculoskeletal: reports: Joint Pain, Joint Swelling, Muscle Pain Integumentary: reports: No Symptoms Neurological: reports: Weakness Endocrine: reports: Unexplained Weight Gain Physical Exam Vital Signs: Vital Signs Temperature 98.1 F 08/28/16 21:10 Pulse Rate 95 H 08/28/16 21:10 Respiratory Rate 20 08/28/16 21:10 Blood Pressure 116/69 08/28/16 21:10 O2 Sat by Pulse Oximetry (%) 98 08/29/16 00:01 Constitutional: Yes: Calm Eyes: Yes: EOM Intact HENT: Yes: Normocephalic Neck: Yes: Trachea Midline Cardiovascular: Yes: Pulse Irregular Respiratory: Yes: Rhonchi, SOB, Tachypnea, Wheezes Gastrointestinal: Yes: Normal Bowel Sounds ...Rectal Exam: Yes: Deferred Renal/: Yes: WNL Breast(s): Yes: WNL Musculoskeletal: Yes: Muscle Weakness Extremities: Yes: WNL Edema: Yes Edema: LLE: 1+, RLE: 1+ Peripheral Pulses WNL: Yes Neurological: Yes: Alert, Oriented Psychiatric: Yes: Alert, Oriented Labs: CBC, BMP 08/27/16 08:43 08/28/16 05:45 Problem List - Problems (1) COPD exacerbation Code(s): J44.1 - CHRONIC OBSTRUCTIVE PULMONARY DISEASE W (ACUTE) EXACERBATION (2) Controlled diabetes mellitus with diabetic peripheral angiopathy without gangrene, without long-term current use of insulin Code(s): E11.51 - TYPE 2 DIABETES W DIABETIC PERIPHERAL ANGIOPATH W/O GANGRENE Assessment/Plan Current Active Problems Asthma (Acute) COPD exacerbation (Acute) Controlled diabetes mellitus with diabetic peripheral angiopathy without gangrene, without long-term current use of insulin (Acute) Diabetes mellitus (Acute) Edema (Acute) Influenza A (Acute) iddm uncontrolled pad, neuropathy morbid obesity insulin resistant Laboratory Results - last 24 hr 08/28/16 08/28/16 08/28/16 05:45 06:06 11:44 Sodium 141 Potassium 4.3 Chloride 100 Carbon Dioxide 28 Anion Gap 13 BUN 25 H D Creatinine 1.1 POC Glucometer 236 332 Random Glucose 263 H D Calcium 9.0 08/28/16 08/28/16 16:50 21:44 Sodium Potassium Chloride Carbon Dioxide Anion Gap BUN Creatinine POC Glucometer 359 316 Random Glucose Calcium Laboratory Tests 03/11/16 08:28 Hemoglobin A1c % 7.5 H D plan: dc levemir given insulin resistant 70/30 novolog mix bid 25 units and titrate dose to control post prandial high ck [id number]
[2016-08-29] MEDS: FUROSEMIDE 40 MG/4 ML INJECTABLE VIAL IVPB SCH (06:56)
[2016-08-29] MEDS: INSULIN (NOVOLOG MIX 70/30) 100 UNITS/ML MDV SQ SCH ×2 (06:56→18:01)
[2016-08-29] MEDS: INSULIN SLIDING SCALE (NOVOLOG) 1 VIAL SQ SCH ×4 (06:57→21:18)
[2016-08-29 08:30] LABS: BASOPHIL 0.4 % (0-2.0); MCH 29.8 pg (25.7-33.7); MCHC 32.9 g/dl (32.0-35.9); MEAN CELL VOLUME 90.6 fl (80-96); NEUTROPHILS 93.4 % (42.8-82.8); PLATELET COUNT 211 K/MM3 (134-434); RDW 16.1 % (11.9-15.9); WHITE BLOOD COUNT 14.2 K/mm3 (4.0-10.0)
--- NOTE | 2016-08-29 09:02 | PN ---
Progress Note, Physician Chief Complaint: FEELS BETTER C/O HEARTBURN - Current Medication List Current Medications: Active Medications Albuterol Sulfate (Ventolin 0.083% Nebulizer Soln -) 1 amp NEB Q4HPO [facility] Last Admin: 08/29/16 06:19 Dose: 1 amp Apixaban (Eliquis -) 5 mg PO BID [facility] Last Admin: 08/28/16 21:46 Dose: 5 mg Atorvastatin Calcium (Lipitor -) 10 mg PO HS [facility] Last Admin: 08/28/16 21:46 Dose: 10 mg Budesonide/Formoterol Fumarate (Symbicort 80/4.5mcg -) 2 puff IH BID [facility] Last Admin: 08/28/16 21:47 Dose: 2 puff Digoxin (Lanoxin -) 0.125 mg PO DAILY [facility] Last Admin: 08/28/16 09:13 Dose: 0.125 mg Furosemide (Lasix Injection -) 40 mg IVPB BID@0600,1400 [facility] Last Admin: 08/29/16 06:56 Dose: 40 mg Gabapentin (Neurontin -) 100 mg PO BID [facility] Last Admin: 08/28/16 21:47 Dose: 100 mg Insulin Aspart (Novolog Mix 70/30 Vial) 25 units SQ BIDAC [facility] Last Admin: 08/29/16 06:56 Dose: 25 units Insulin Aspart (Novolog Vial Sliding Scale -) 1 vial SQ ACHS [facility] PRN Reason: Protocol Last Admin: 08/29/16 06:57 Dose: 6 units Methylprednisolone Sodium Succinate (Solu-Medrol -) 40 mg IVPB BID [facility] Last Admin: 08/28/16 21:47 Dose: 40 mg Tamsulosin HCl (Flomax -) 0.4 mg PO DAILY [facility] Last Admin: 08/28/16 09:13 Dose: 0.4 mg Verapamil HCl (Calan Sr -) 240 mg PO DAILY [facility] Last Admin: 08/28/16 09:14 Dose: 240 mg - Objective Vital Signs: Vital Signs Temperature 97.8 F 08/29/16 02:05 Pulse Rate 108 H 08/29/16 08:41 Respiratory Rate 24 08/29/16 08:41 Blood Pressure 124/70 08/29/16 08:41 O2 Sat by Pulse Oximetry (%) 98 08/29/16 07:06 Cardiovascular: Yes: S1, S2 Respiratory: Yes: Rhonchi Gastrointestinal: Yes: Normal Bowel Sounds, Soft Edema: Yes Labs: CBC, BMP 08/29/16 05:45 INR, PTT INR 1.28 (0.82-1.09) H 08/26/16 15:04 Problem List - Problems (1) Asthma Code(s): J45.909 - UNSPECIFIED ASTHMA, UNCOMPLICATED (2) COPD exacerbation Code(s): J44.1 - CHRONIC OBSTRUCTIVE PULMONARY DISEASE W (ACUTE) EXACERBATION (3) Controlled diabetes mellitus with diabetic peripheral angiopathy without gangrene, without long-term current use of insulin Code(s): E11.51 - TYPE 2 DIABETES W DIABETIC PERIPHERAL ANGIOPATH W/O GANGRENE (4) Edema Code(s): R60.9 - EDEMA, UNSPECIFIED Assessment/Plan (1) COPD exacerbation Assessment/Plan: IV STEROIDS -> TAPERING NEBS O2 PULM ON CASE Code(s): J44.1 - CHRONIC OBSTRUCTIVE PULMONARY DISEASE W (ACUTE) EXACERBATION (2) Acute CHF Assessment/Plan: IV LASIX CARDIO ON CASE Code(s): I50.9 - HEART FAILURE, UNSPECIFIED Qualifiers: Congestive heart failure type: unspecified congestive heart failure type Qualified Code(s): I50.9 - Heart failure, unspecified (3) Atrial fibrillation Assessment/Plan: MONITOR RATE ON ELIQUIS Code(s): I48.91 - UNSPECIFIED ATRIAL FIBRILLATION Qualifiers: Atrial fibrillation type: unspecified Qualified Code(s): I48.91 - Unspecified atrial fibrillation (4) Morbid obesity Assessment/Plan: WT LOSS Code(s): E66.01 - MORBID (SEVERE) OBESITY DUE TO EXCESS CALORIES Qualifiers: Obesity type: due to excess calories Qualified Code(s): E66.01 - Morbid (severe) obesity due to excess calories (5) Controlled diabetes mellitus with diabetic peripheral angiopathy without gangrene, without long-term current use of insulin Code(s): E11.51 - TYPE 2 DIABETES W DIABETIC PERIPHERAL ANGIOPATH W/O GANGRENE 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
[2016-08-29 09:05] LABS: CALCIUM 9.4 mg/dL (8.5-10.1)
[2016-08-29] MEDS ORDERED: PT OWN MED DRAWER 7, Y5N ONE (09:33)
[2016-08-29] MEDS: VERAPAMIL HCL 240 MG E.R. TABLET (FP) PO SCH (09:42)
[2016-08-29] MEDS: APIXABAN 5 MG TABLET PO SCH ×2 (09:42→21:18)
[2016-08-29] MEDS: TAMSULOSIN HCL 0.4 MG CAP.ER.24H (FP) PO SCH (09:42)
[2016-08-29] MEDS: GABAPENTIN 100 MG CAPSULE (FP) PO SCH ×2 (09:42→21:18)
[2016-08-29] MEDS: DIGOXIN 0.125 MG TABLET (FP) PO SCH (09:43)
[2016-08-29] MEDS: BUDESONIDE/FORMETEROL FUMARATE 80/4.5 mcg INHALER IH SCH ×2 (09:44→21:19)
[2016-08-29] MEDS ORDERED: methylPREDNISolone NA SUCC 40 MG/1 ML VIAL IVPB SCH (10:00)
--- NOTE | 2016-08-29 10:45 | PN ---
Progress Note (short form) - Note Progress Note: s: no palps dizzy; sob and le edema improving slowly; had some brief cp this AM , now resolved, similar to prior sxs he gets with copd/chf exacerbations. o: Vital Signs Period Temp Pulse Resp BP Sys/Park Pulse Ox Last 24 Hr 97.8 F-98.1 F 68-108 18-24 115-133/50-77 97-98 NAD, calm JVD difficult to assess due to size, neck supple cta bl, nl effort Irregularly, irregular nl s1, s2 no m/r/g + bs soft obese nt nd ext with trace le edema. no cyanosis or clubbing no jaundice, diaphoresis. aaox3 Current Medications Generic Name Dose Route Start Last Admin Trade Name Freq PRN Reason Stop Dose Admin Albuterol Sulfate 1 amp 08/26/16 22:00 08/29/16 10:15 Ventolin 0.083% Nebulizer Soln - NEB 1 amp Q4HPO ARVIND Administration Apixaban 5 mg 08/26/16 22:00 08/29/16 09:42 Eliquis - PO 5 mg BID ARVIND Administration Atorvastatin Calcium 10 mg 08/26/16 22:00 08/28/16 21:46 Lipitor - PO 10 mg HS ARVIND Administration Budesonide/Formoterol Fumarate 2 puff 08/26/16 22:00 08/29/16 09:44 Symbicort 80/4.5mcg - IH 2 puff BID ARVIND Administration Digoxin 0.125 mg 08/27/16 10:00 08/29/16 09:43 Lanoxin - PO 0.125 mg DAILY ARVIND Administration Furosemide 80 mg 08/29/16 10:41 Lasix Injection - IVPUSH BID@0600,1400 ARVIND Gabapentin 100 mg 08/26/16 22:00 08/29/16 09:42 Neurontin - PO 100 mg BID ARVIND Administration Insulin Aspart 25 units 08/29/16 07:00 08/29/16 06:56 Novolog Mix 70/30 Vial SQ 25 units BIDAC ARVIND Administration Insulin Aspart 1 vial 08/29/16 02:08 08/29/16 06:57 Novolog Vial Sliding Scale - SQ 6 units ACHS ARVIND Administration Protocol Methylprednisolone Sodium Succinate 40 mg 08/29/16 10:00 08/29/16 09:42 Solu-Medrol - IVPB 40 mg DAILY ARVIND Administration Tamsulosin HCl 0.4 mg 08/27/16 10:00 08/29/16 09:42 Flomax - PO 0.4 mg DAILY ARVIND Administration Verapamil HCl 240 mg 08/27/16 10:00 08/29/16 09:42 Calan Sr - PO 240 mg DAILY ARVIND Administration CBC, BMP 08/29/16 05:45 08/29/16 05:45 ecg 08/26/16: afib, rate controlled, nl qtc, no ischemic changes cxr: clear lungs tele: afib, rate mostly controlled echo 07/2016: Nl lv/rv. 1+ AR Echo 08/2015: tds, nl lv/rv, no sig valve path mibi 12/2012: small posterior ischemia vs artifact, nl lvef, no tid 10/2015 CT scan negative for PE a/p: 71 yo male with h/o AFib s/p prior DCCV 12/2015 to SR on AC, HTN, HL, dchf , PVCs with palpitations, morbid obesity, NATHANIEL on bipap, severe COPD, here with sob. sob, acute diastolic chf/copd: - has tendency towards volume retention felicia when receives steroids for copd exacerbation - he also is often noncompliant with bid lasix and was only taking daily several days the week prior to this admit - here now with some mild vol overload with wt up from prior (dc wts usually 338 -9lbs) - no signs pulm edema, no signs acs - le edema and wt slightly better, cr stable. will increase lasix to 80 iv bid for better volume removal since cr has been stable and still vol overloaded. - have reinforced importance of taking bid lasix upon dc to prevent fluid build up at home - copd/nathaniel tx per pulm paroxysmal AF/flutter -cont eliquis for AC -new dx 2015--req'd amio for HR control then (now off due to severe lung dz), s/ p successful DCCV 12/24, then reverted to afib -rate has been adequately controlled with the combo of calan and dig -dig level good here -avoiding BB given severe bronchospasm/copd; would like to avoid long-term amio for same reason hld: -continue statin htn: -stable on current meds possible cad: -pt had borderline positive mibi in 2012 vs soft tissue attenuation artifact -never had angina sx's -no signs acs here -continue medical management with statin, AC without ASA
[2016-08-29] MEDS ORDERED: INSULIN (NOVOLOG) ASPART 100 UNITS/ML 10ML VIAL ONE ×2 (12:10→17:51)
--- NOTE | 2016-08-29 12:26 | PN ---
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
--- NOTE | 2016-08-29 13:52 | PN ---
Progress Note, Physician History of Present Illness: Renal f/u Pt feels better and is in no distress while OOB and in chair Pt planning on going to SNF for extended rehab - Current Medication List Current Medications: Active Medications Albuterol Sulfate (Ventolin 0.083% Nebulizer Soln -) 1 amp NEB Q4HPO [facility] Last Admin: 08/29/16 10:15 Dose: 1 amp Apixaban (Eliquis -) 5 mg PO BID [facility] Last Admin: 08/29/16 09:42 Dose: 5 mg Atorvastatin Calcium (Lipitor -) 10 mg PO HS [facility] Last Admin: 08/28/16 21:46 Dose: 10 mg Budesonide/Formoterol Fumarate (Symbicort 80/4.5mcg -) 2 puff IH BID [facility] Last Admin: 08/29/16 09:44 Dose: 2 puff Digoxin (Lanoxin -) 0.125 mg PO DAILY [facility] Last Admin: 08/29/16 09:43 Dose: 0.125 mg Furosemide (Lasix Injection -) 80 mg IVPUSH BID@0600,1400 [facility] Gabapentin (Neurontin -) 100 mg PO BID [facility] Last Admin: 08/29/16 09:42 Dose: 100 mg Insulin Aspart (Novolog Mix 70/30 Vial) 25 units SQ BIDAC [facility] Last Admin: 08/29/16 06:56 Dose: 25 units Insulin Aspart (Novolog Vial Sliding Scale -) 1 vial SQ ACHS [facility] PRN Reason: Protocol Last Admin: 08/29/16 12:13 Dose: 6 units Prednisone (Deltasone -) 20 mg PO DAILY [facility] Tamsulosin HCl (Flomax -) 0.4 mg PO DAILY [facility] Last Admin: 08/29/16 09:42 Dose: 0.4 mg Verapamil HCl (Calan Sr -) 240 mg PO DAILY [facility] Last Admin: 08/29/16 09:42 Dose: 240 mg - Objective Vital Signs: Vital Signs Temperature 97.8 F 08/29/16 02:05 Pulse Rate 68 08/29/16 10:15 Respiratory Rate 24 08/29/16 08:41 Blood Pressure 124/70 08/29/16 08:41 O2 Sat by Pulse Oximetry (%) 97 08/29/16 10:15 Constitutional: Yes: No Distress Cardiovascular: Yes: Other (Distant S1S2). No: JVD Respiratory: Yes: Other (Rare expiratory wheeze) Gastrointestinal: Yes: Soft, Abdomen, Obese. No: Tenderness, Rebound Edema: Yes (Decreased ) Labs: CBC, BMP 08/29/16 05:45 08/29/16 05:45 INR, PTT INR 1.28 (0.82-1.09) H 08/26/16 15:04 Assessment/Plan Impression 1. Azotemia with high BUN/Cr ratio on BID lasix and Steroids improved 2. CHF 3. obstructive sleep apnea 4. obesity 5. DM 6. HTN 7. hyperlipidemia 8. resp failure requiring bipap 9. hypomagnesemia Plan Continue with the BID lasix Taper of steroids as ordered BiPAP prn Rpt labs in am Dr Contreras
[2016-08-29] MEDS: predniSONE 20 MG TABLET (UD) PO SCH (14:44)
[2016-08-29] MEDS: FUROSEMIDE 40 MG/4 ML INJECTABLE VIAL IVPUSH SCH (14:45)
[2016-08-29] MEDS: PANTOPRAZOLE SODIUM 40 MG/100 ML PRE-DOCKED IVPB SCH (18:00)
[2016-08-29] MEDS: ATORVASTATIN CA 10 MG TABLET (FP) PO SCH (21:18)
[2016-08-30] MEDS: ALBUTEROL SO4 0.083% IH SOL 2.5 MG/3 ML VIAL.NEB. NEB SCH ×7 (03:02→22:58)
[2016-08-30] MEDS: INSULIN SLIDING SCALE (NOVOLOG) 1 VIAL SQ SCH ×4 (06:10→21:35)
[2016-08-30] MEDS: FUROSEMIDE 40 MG/4 ML INJECTABLE VIAL IVPUSH SCH ×2 (06:11→14:04)
[2016-08-30] MEDS: INSULIN (NOVOLOG MIX 70/30) 100 UNITS/ML MDV SQ SCH ×2 (06:11→17:37)
[2016-08-30 07:18] LABS: BASOPHIL 0.1 % (0-2.0); MCH 29.6 pg (25.7-33.7); MCHC 32.9 g/dl (32.0-35.9); MEAN CELL VOLUME 89.9 fl (80-96); MEAN PLT VOLUME 8.8 fl (7.5-11.1); NEUTROPHILS 83.5 % (42.8-82.8); PLATELET COUNT 214 K/MM3 (134-434); RDW 16.1 % (11.9-15.9); WHITE BLOOD COUNT 14.7 K/mm3 (4.0-10.0)
[2016-08-30 07:40] LABS: ALBUMIN 3.2 g/dl (3.4-5.0); ANION GAP 13 (8-16); BILIRUBIN,TOTAL 0.7 mg/dL (0.2-1.0); CALCIUM 9.3 mg/dL (8.5-10.1); CO2 31 mmol/L (21-32); GLUCOSE,RANDOM 213 mg/dL (74-106); SGPT/ALT 26 U/L (12-78); TOT PROT 5.9 g/dl (6.4-8.2)
[2016-08-30 07:41] LABS: ALK PHOS 64 U/L (45-117)
[2016-08-30 07:51] LABS: SGOT/AST 3 U/L (15-37)
--- NOTE | 2016-08-30 08:39 | PN ---
Progress Note, Physician - Current Medication List Current Medications: Active Medications Albuterol Sulfate (Ventolin 0.083% Nebulizer Soln -) 1 amp NEB Q4HPO [facility] Last Admin: 08/30/16 06:35 Dose: 1 amp Apixaban (Eliquis -) 5 mg PO BID [facility] Last Admin: 08/29/16 21:18 Dose: 5 mg Atorvastatin Calcium (Lipitor -) 10 mg PO HS [facility] Last Admin: 08/29/16 21:18 Dose: 10 mg Budesonide/Formoterol Fumarate (Symbicort 80/4.5mcg -) 2 puff IH BID [facility] Last Admin: 08/29/16 21:19 Dose: 2 puff Digoxin (Lanoxin -) 0.125 mg PO DAILY [facility] Last Admin: 08/29/16 09:43 Dose: 0.125 mg Furosemide (Lasix Injection -) 80 mg IVPUSH BID@0600,1400 [facility] Last Admin: 08/30/16 06:11 Dose: 80 mg Gabapentin (Neurontin -) 100 mg PO BID [facility] Last Admin: 08/29/16 21:18 Dose: 100 mg Insulin Aspart (Novolog Mix 70/30 Vial) 25 units SQ BIDAC [facility] Last Admin: 08/30/16 06:11 Dose: 25 units Insulin Aspart (Novolog Vial Sliding Scale -) 1 vial SQ ACHS [facility] PRN Reason: Protocol Last Admin: 08/30/16 06:10 Dose: 5 units Pantoprazole Sodium (Protonix 40mg Ivpb (Pre-Docked)) 40 mg IVPB DAILY [facility] Last Admin: 08/29/16 18:00 Dose: 40 mg Prednisone (Deltasone -) 20 mg PO DAILY [facility] Last Admin: 08/29/16 14:44 Dose: 20 mg Tamsulosin HCl (Flomax -) 0.4 mg PO DAILY [facility] Last Admin: 08/29/16 09:42 Dose: 0.4 mg Verapamil HCl (Calan Sr -) 240 mg PO DAILY [facility] Last Admin: 08/29/16 09:42 Dose: 240 mg - Objective Vital Signs: Vital Signs Temperature 97.7 F 08/30/16 01:00 Pulse Rate 84 08/30/16 01:00 Respiratory Rate 18 08/30/16 05:00 Blood Pressure 123/63 08/30/16 01:00 O2 Sat by Pulse Oximetry (%) 94 L 08/30/16 02:00 Constitutional: Yes: Calm Cardiovascular: Yes: S1, S2 Respiratory: Yes: Rhonchi Gastrointestinal: Yes: Normal Bowel Sounds, Soft Edema: Yes Labs: CBC, BMP 08/30/16 05:35 08/30/16 05:35 INR, PTT INR 1.28 (0.82-1.09) H 08/26/16 15:04 Problem List - Problems (1) Asthma Code(s): J45.909 - UNSPECIFIED ASTHMA, UNCOMPLICATED (2) COPD exacerbation Code(s): J44.1 - CHRONIC OBSTRUCTIVE PULMONARY DISEASE W (ACUTE) EXACERBATION (3) Controlled diabetes mellitus with diabetic peripheral angiopathy without gangrene, without long-term current use of insulin Code(s): E11.51 - TYPE 2 DIABETES W DIABETIC PERIPHERAL ANGIOPATH W/O GANGRENE (4) Edema Code(s): R60.9 - EDEMA, UNSPECIFIED Assessment/Plan (1) COPD exacerbation Assessment/Plan: IV STEROIDS -> TAPERING NEBS O2 PULM ON CASE Code(s): J44.1 - CHRONIC OBSTRUCTIVE PULMONARY DISEASE W (ACUTE) EXACERBATION (2) Acute CHF Assessment/Plan: IV LASIX -> PO CARDIO ON CASE Code(s): I50.9 - HEART FAILURE, UNSPECIFIED Qualifiers: Congestive heart failure type: unspecified congestive heart failure type Qualified Code(s): I50.9 - Heart failure, unspecified (3) Atrial fibrillation Assessment/Plan: MONITOR RATE ON ELIQUIS Code(s): I48.91 - UNSPECIFIED ATRIAL FIBRILLATION Qualifiers: Atrial fibrillation type: unspecified Qualified Code(s): I48.91 - Unspecified atrial fibrillation (4) Morbid obesity Assessment/Plan: WT LOSS Code(s): E66.01 - MORBID (SEVERE) OBESITY DUE TO EXCESS CALORIES Qualifiers: Obesity type: due to excess calories Qualified Code(s): E66.01 - Morbid (severe) obesity due to excess calories (5) Controlled diabetes mellitus with diabetic peripheral angiopathy without gangrene, without long-term current use of insulin Code(s): E11.51 - TYPE 2 DIABETES W DIABETIC PERIPHERAL ANGIOPATH W/O GANGRENE ENDO ON CASE INSULIN INCed DISCHARGE PLANNING TO SNF FOR PULM REHAB HOMEOPATHIC DOCTOR MARLENY
[2016-08-30] MEDS ORDERED: PT OWN MED DRAWER 7, Y5N ONE (09:24)
[2016-08-30] MEDS: DIGOXIN 0.125 MG TABLET (FP) PO SCH (09:39)
[2016-08-30] MEDS: PANTOPRAZOLE SODIUM 40 MG/100 ML PRE-DOCKED IVPB SCH (09:39)
[2016-08-30] MEDS: APIXABAN 5 MG TABLET PO SCH ×2 (09:39→21:31)
[2016-08-30] MEDS: predniSONE 20 MG TABLET (UD) PO SCH (09:39)
[2016-08-30] MEDS: TAMSULOSIN HCL 0.4 MG CAP.ER.24H (FP) PO SCH (09:39)
[2016-08-30] MEDS: GABAPENTIN 100 MG CAPSULE (FP) PO SCH ×2 (09:42→21:31)
--- NOTE | 2016-08-30 10:00 | PN ---
Progress Note (short form) - Note Progress Note: s: no palps dizzy cp; sob better o: Vital Signs Period Temp Pulse Resp BP Sys/Park Pulse Ox Last 24 Hr 97.4 F-98.0 F 68-108 18-24 123-150/63-86 92-98 NAD, calm JVD difficult to assess due to size, neck supple cta bl, nl effort Irregularly, irregular nl s1, s2 no m/r/g + bs soft obese nt nd ext with trace le edema. no cyanosis or clubbing no jaundice, diaphoresis. aaox3 Current Medications Generic Name Dose Route Start Last Admin Trade Name Freq PRN Reason Stop Dose Admin Albuterol Sulfate 1 amp 08/26/16 22:00 08/30/16 06:35 Ventolin 0.083% Nebulizer Soln - NEB 1 amp Q4HPO ARVIND Administration Apixaban 5 mg 08/26/16 22:00 08/30/16 09:39 Eliquis - PO 5 mg BID ARVIND Administration Atorvastatin Calcium 10 mg 08/26/16 22:00 08/29/16 21:18 Lipitor - PO 10 mg HS ARVIND Administration Budesonide/Formoterol Fumarate 2 puff 08/26/16 22:00 08/29/16 21:19 Symbicort 80/4.5mcg - IH 2 puff BID ARVIND Administration Digoxin 0.125 mg 08/27/16 10:00 08/30/16 09:39 Lanoxin - PO 0.125 mg DAILY ARVIND Administration Furosemide 80 mg 08/29/16 10:41 08/30/16 06:11 Lasix Injection - IVPUSH 08/30/16 22:00 80 mg BID@0600,1400 ARVIND Administration Furosemide 60 mg 08/31/16 06:00 Lasix - PO BID@0600,1400 ARVIND Gabapentin 100 mg 08/26/16 22:00 08/30/16 09:42 Neurontin - PO 100 mg BID ARVIND Administration Insulin Aspart 1 vial 08/29/16 02:08 08/30/16 06:10 Novolog Vial Sliding Scale - SQ 5 units ACHS ARVIND Administration Protocol Insulin Aspart 30 units 08/30/16 08:38 Novolog Mix 70/30 Vial SQ BIDAC ARVIND Pantoprazole Sodium 40 mg 08/29/16 17:30 08/30/16 09:39 Protonix 40mg Ivpb (Pre-Docked) IVPB 40 mg DAILY ARVIND Administration Prednisone 20 mg 08/29/16 12:45 08/30/16 09:39 Deltasone - PO 20 mg DAILY ARVIND Administration Tamsulosin HCl 0.4 mg 08/27/16 10:00 08/30/16 09:39 Flomax - PO 0.4 mg DAILY ARVIND Administration Verapamil HCl 240 mg 08/27/16 10:00 08/29/16 09:42 Calan Sr - PO 240 mg DAILY ARVIND Administration CBC, BMP 08/30/16 05:35 08/30/16 05:35 ecg 08/26/16: afib, rate controlled, nl qtc, no ischemic changes cxr: clear lungs tele: afib, rate mostly controlled echo 07/2016: Nl lv/rv. 1+ AR Echo 08/2015: tds, nl lv/rv, no sig valve path mibi 12/2012: small posterior ischemia vs artifact, nl lvef, no tid 10/2015 CT scan negative for PE a/p: 71 yo male with h/o AFib s/p prior DCCV 12/2015 to SR on AC, HTN, HL, dchf , PVCs with palpitations, morbid obesity, NATHANIEL on bipap, severe COPD, here with sob. sob, acute diastolic chf/copd: - has tendency towards volume retention felicia when receives steroids for copd exacerbation - he also is often noncompliant with bid lasix and was only taking daily several days the week prior to this admit - here now with some mild vol overload with wt up from prior (dc wts usually 338 -9lbs) - no signs pulm edema, no signs acs - wt and le edema have improved with iv lasix, and cr stable. will change to po lasix tomorrow at increased dose of 60 po bid (was on 40 po bid before). - copd/nathaniel tx per pulm, planned for dc to pulm rehab paroxysmal AF/flutter -cont eliquis for AC -new dx 2015--req'd amio for HR control then (now off due to severe lung dz), s/ p successful DCCV 12/24, then reverted to afib -rate has been adequately controlled with the combo of calan and dig -dig level good here -avoiding BB given severe bronchospasm/copd; would like to avoid long-term amio for same reason hld: -continue statin htn: -stable on current meds possible cad: -pt had borderline positive mibi in 2013 vs soft tissue attenuation artifact -never had angina sx's -no signs acs here -continue medical management with statin, AC without ASA
--- NOTE | 2016-08-30 10:26 | PN ---
Progress Note, Physician History of Present Illness: PULMONARY' ALERT,FEELING BETTER,LESS DYSPNEIC,-CP. - Current Medication List Current Medications: Active Medications Albuterol Sulfate (Ventolin 0.083% Nebulizer Soln -) 1 amp NEB Q4HPO [facility] Last Admin: 08/30/16 06:35 Dose: 1 amp Apixaban (Eliquis -) 5 mg PO BID [facility] Last Admin: 08/30/16 09:39 Dose: 5 mg Atorvastatin Calcium (Lipitor -) 10 mg PO HS [facility] Last Admin: 08/29/16 21:18 Dose: 10 mg Budesonide/Formoterol Fumarate (Symbicort 80/4.5mcg -) 2 puff IH BID [facility] Last Admin: 08/29/16 21:19 Dose: 2 puff Digoxin (Lanoxin -) 0.125 mg PO DAILY [facility] Last Admin: 08/30/16 09:39 Dose: 0.125 mg Furosemide (Lasix Injection -) 80 mg IVPUSH BID@0600,1400 [facility] Stop: 08/30/16 22:00 Last Admin: 08/30/16 06:11 Dose: 80 mg Furosemide (Lasix -) 60 mg PO BID@0600,1400 [facility] Gabapentin (Neurontin -) 100 mg PO BID [facility] Last Admin: 08/30/16 09:42 Dose: 100 mg Insulin Aspart (Novolog Vial Sliding Scale -) 1 vial SQ ACHS [facility] PRN Reason: Protocol Last Admin: 08/30/16 06:10 Dose: 5 units Insulin Aspart (Novolog Mix 70/30 Vial) 30 units SQ BIDAC [facility] Pantoprazole Sodium (Protonix 40mg Ivpb (Pre-Docked)) 40 mg IVPB DAILY [facility] Last Admin: 08/30/16 09:39 Dose: 40 mg Prednisone (Deltasone -) 20 mg PO DAILY [facility] Last Admin: 08/30/16 09:39 Dose: 20 mg Tamsulosin HCl (Flomax -) 0.4 mg PO DAILY [facility] Last Admin: 08/30/16 09:39 Dose: 0.4 mg Verapamil HCl (Calan Sr -) 240 mg PO DAILY [facility] Last Admin: 08/29/16 09:42 Dose: 240 mg - Objective Vital Signs: Vital Signs Temperature 97.7 F 08/30/16 01:00 Pulse Rate 82 08/30/16 09:39 Respiratory Rate 18 08/30/16 05:00 Blood Pressure 123/63 08/30/16 01:00 O2 Sat by Pulse Oximetry (%) 94 L 08/30/16 02:00 Constitutional: Yes: Calm, Obese Eyes: Yes: WNL HENT: Yes: WNL Neck: Yes: WNL Cardiovascular: Yes: Pulse Irregular, S1, S2 Respiratory: Yes: Diminished Gastrointestinal: Yes: Abdomen, Obese Extremities: Yes: WNL Edema: No Labs: CBC, BMP 08/30/16 05:35 08/30/16 05:35 INR, PTT INR 1.28 (0.82-1.09) H 08/26/16 15:04 Problem List - Problems (1) Controlled diabetes mellitus with diabetic peripheral angiopathy without gangrene, without long-term current use of insulin Code(s): E11.51 - TYPE 2 DIABETES W DIABETIC PERIPHERAL ANGIOPATH W/O GANGRENE (2) Edema Code(s): R60.9 - EDEMA, UNSPECIFIED (3) Acute CHF Code(s): I50.9 - HEART FAILURE, UNSPECIFIED Qualifiers: Congestive heart failure type: unspecified congestive heart failure type Qualified Code(s): I50.9 - Heart failure, unspecified (4) Atrial fibrillation Code(s): I48.91 - UNSPECIFIED ATRIAL FIBRILLATION Qualifiers: Atrial fibrillation type: unspecified Qualified Code(s): I48.91 - Unspecified atrial fibrillation (5) Dyspnea Code(s): R06.00 - DYSPNEA, UNSPECIFIED Qualifiers: Dyspnea type: shortness of breath Qualified Code(s): R06.02 - Shortness of breath (6) HTN (hypertension) Code(s): I10 - ESSENTIAL (PRIMARY) HYPERTENSION (7) Morbid obesity Code(s): E66.01 - MORBID (SEVERE) OBESITY DUE TO EXCESS CALORIES Qualifiers: Obesity type: due to excess calories Qualified Code(s): E66.01 - Morbid (severe) obesity due to excess calories Assessment/Plan Problem List - Problems (1) Asthma Code(s): J45.909 - UNSPECIFIED ASTHMA, UNCOMPLICATED (2) COPD exacerbation Code(s): J44.1 - CHRONIC OBSTRUCTIVE PULMONARY DISEASE W (ACUTE) EXACERBATION (3) Diabetes mellitus Code(s): E11.9 - TYPE 2 DIABETES MELLITUS WITHOUT COMPLICATIONS Qualifiers: Diabetes mellitus type: type 2 Diabetes mellitus complication status: with other specified complication (4) Acute bronchitis with COPD Code(s): J44.0 - CHRONIC OBSTRUCTIVE PULMON DISEASE W ACUTE LOWER RESP INFCT Assessment/Plan A/E COPD DOUBT PNA OSAS ON NIPPV M OBESE CHF LASIX INHALED BRONCHODILATORS DAILY WTS TAPER STEROIDS SHORT TERM REHAB SNF DR STACK
[2016-08-30] MEDS: BUDESONIDE/FORMETEROL FUMARATE 80/4.5 mcg INHALER IH SCH ×2 (12:01→21:35)
[2016-08-30] MEDS: VERAPAMIL HCL 240 MG E.R. TABLET (FP) PO SCH (12:04)
--- NOTE | 2016-08-30 14:05 | PN ---
Progress Note, Physician History of Present Illness: Pt seen and examined at bedside. He feels that his lower extremity edema is improved. He feels that his breathing is also improved. - Current Medication List Current Medications: Active Medications Albuterol Sulfate (Ventolin 0.083% Nebulizer Soln -) 1 amp NEB Q4HPO [facility] Last Admin: 08/30/16 10:40 Dose: 1 amp Apixaban (Eliquis -) 5 mg PO BID [facility] Last Admin: 08/30/16 09:39 Dose: 5 mg Atorvastatin Calcium (Lipitor -) 10 mg PO HS [facility] Last Admin: 08/29/16 21:18 Dose: 10 mg Budesonide/Formoterol Fumarate (Symbicort 80/4.5mcg -) 2 puff IH BID [facility] Last Admin: 08/30/16 12:01 Dose: 2 puff Digoxin (Lanoxin -) 0.125 mg PO DAILY [facility] Last Admin: 08/30/16 09:39 Dose: 0.125 mg Furosemide (Lasix Injection -) 80 mg IVPUSH BID@0600,1400 [facility] Stop: 08/30/16 22:00 Last Admin: 08/30/16 06:11 Dose: 80 mg Furosemide (Lasix -) 60 mg PO BID@0600,1400 [facility] Gabapentin (Neurontin -) 100 mg PO BID [facility] Last Admin: 08/30/16 09:42 Dose: 100 mg Insulin Aspart (Novolog Vial Sliding Scale -) 1 vial SQ ACHS [facility] PRN Reason: Protocol Last Admin: 08/30/16 12:01 Dose: 5 units Insulin Aspart (Novolog Mix 70/30 Vial) 30 units SQ BIDAC [facility] Pantoprazole Sodium (Protonix 40mg Ivpb (Pre-Docked)) 40 mg IVPB DAILY [facility] Last Admin: 08/30/16 09:39 Dose: 40 mg Prednisone (Deltasone -) 20 mg PO DAILY [facility] Last Admin: 08/30/16 09:39 Dose: 20 mg Tamsulosin HCl (Flomax -) 0.4 mg PO DAILY [facility] Last Admin: 08/30/16 09:39 Dose: 0.4 mg Verapamil HCl (Calan Sr -) 240 mg PO DAILY [facility] Last Admin: 08/30/16 12:04 Dose: 240 mg - Objective Vital Signs: Vital Signs Temperature 97.8 F 08/30/16 09:00 Pulse Rate 82 08/30/16 09:39 Respiratory Rate 22 08/30/16 09:00 Blood Pressure 113/78 08/30/16 09:00 O2 Sat by Pulse Oximetry (%) 98 08/30/16 10:40 Constitutional: Yes: Calm Eyes: Yes: Conjunctiva Clear HENT: Yes: Atraumatic Neck: Yes: Supple Cardiovascular: Yes: S1, S2 Respiratory: Yes: On BiPap Gastrointestinal: Yes: Soft, Abdomen, Obese Genitourinary: Yes: WNL Musculoskeletal: Yes: WNL Edema: Yes Edema: LLE: Trace, RLE: Trace Neurological: Yes: Oriented Psychiatric: Yes: Oriented Labs: CBC, BMP 08/30/16 05:35 08/30/16 05:35 INR, PTT INR 1.28 (0.82-1.09) H 08/26/16 15:04 Problem List - Problems (1) Asthma Code(s): J45.909 - UNSPECIFIED ASTHMA, UNCOMPLICATED (2) COPD exacerbation Code(s): J44.1 - CHRONIC OBSTRUCTIVE PULMONARY DISEASE W (ACUTE) EXACERBATION (3) Diabetes mellitus Code(s): E11.9 - TYPE 2 DIABETES MELLITUS WITHOUT COMPLICATIONS Qualifiers: Diabetes mellitus type: type 2 Diabetes mellitus complication status: with other specified complication (4) Edema Code(s): R60.9 - EDEMA, UNSPECIFIED (5) Acute CHF Code(s): I50.9 - HEART FAILURE, UNSPECIFIED Qualifiers: Congestive heart failure type: unspecified congestive heart failure type Qualified Code(s): I50.9 - Heart failure, unspecified (6) Azotemia Code(s): R79.89 - OTHER SPECIFIED ABNORMAL FINDINGS OF BLOOD CHEMISTRY (7) HTN (hypertension) Code(s): I10 - ESSENTIAL (PRIMARY) HYPERTENSION (8) Morbid obesity Code(s): E66.01 - MORBID (SEVERE) OBESITY DUE TO EXCESS CALORIES Qualifiers: Obesity type: due to excess calories Qualified Code(s): E66.01 - Morbid (severe) obesity due to excess calories (9) Shortness of breath Code(s): R06.02 - SHORTNESS OF BREATH Assessment/Plan Current Medications Generic Name Dose Route Start Last Admin Trade Name Freq PRN Reason Stop Dose Admin Albuterol Sulfate 1 amp 08/26/16 22:00 08/30/16 10:40 Ventolin 0.083% Nebulizer Soln - NEB 1 amp Q4HPO ARVIND Administration Apixaban 5 mg 08/26/16 22:00 08/30/16 09:39 Eliquis - PO 5 mg BID ARVIND Administration Atorvastatin Calcium 10 mg 08/26/16 22:00 08/29/16 21:18 Lipitor - PO 10 mg HS [facility]IND Administration Budesonide/Formoterol Fumarate 2 puff 08/26/16 22:00 08/30/16 12:01 Symbicort 80/4.5mcg - IH 2 puff BID ARVIND Administration Digoxin 0.125 mg 08/27/16 10:00 08/30/16 09:39 Lanoxin - PO 0.125 mg DAILY [facility] Administration Furosemide 80 mg 08/29/16 10:41 08/30/16 06:11 Lasix Injection - IVPUSH 08/30/16 22:00 80 mg BID@0600,1400 AR[facility] Administration Furosemide 60 mg 08/31/16 06:00 Lasix - PO BID@0600,1400 [facility] Gabapentin 100 mg 08/26/16 22:00 08/30/16 09:42 Neurontin - PO 100 mg BID ARVIND Administration Insulin Aspart 1 vial 08/29/16 02:08 08/30/16 12:01 Novolog Vial Sliding Scale - SQ 5 units ACHS ARVIND Administration Protocol Insulin Aspart 30 units 08/30/16 08:38 Novolog Mix 70/30 Vial SQ BIDAC [facility] Pantoprazole Sodium 40 mg 08/29/16 17:30 08/30/16 09:39 Protonix 40mg Ivpb (Pre-Docked) IVPB 40 mg DAILY [facility] Administration Prednisone 20 mg 08/29/16 12:45 08/30/16 09:39 Deltasone - PO 20 mg DAILY [facility] Administration Tamsulosin HCl 0.4 mg 08/27/16 10:00 08/30/16 09:39 Flomax - PO 0.4 mg DAILY [facility] Administration Verapamil HCl 240 mg 08/27/16 10:00 08/30/16 12:04 Calan Sr - PO 240 mg DAILY [facility] Administration Impression 1. azotemia 2. CHF 3. obstructive sleep apnea 4. obesity 5. DM 6. HTN 7. hyperlipidemia 8. resp failure requiring bipap 9. hypomagnesemia Plan - cont with lasix - taper steroids as tolerated - pt will likely need a higher dose at home - monitor bmp - pt is clinically improving - will follow pt - cont bipap Dr Aguilar
[2016-08-30] MEDS: ATORVASTATIN CA 10 MG TABLET (FP) PO SCH (21:31)
[2016-08-31] MEDS: ALBUTEROL SO4 0.083% IH SOL 2.5 MG/3 ML VIAL.NEB. NEB SCH ×6 (02:00→21:50)
[2016-08-31] MEDS: INSULIN (NOVOLOG MIX 70/30) 100 UNITS/ML MDV SQ SCH ×2 (06:47→17:01)
[2016-08-31] MEDS: FUROSEMIDE 40 MG TABLET (FP) PO SCH ×2 (06:48→15:06)
[2016-08-31] MEDS: INSULIN SLIDING SCALE (NOVOLOG) 1 VIAL SQ SCH ×4 (06:48→21:56)
[2016-08-31 07:15] LABS: MCH 29.9 pg (25.7-33.7); MCHC 33.1 g/dl (32.0-35.9); MEAN CELL VOLUME 90.3 fl (80-96); MEAN PLT VOLUME 8.5 fl (7.5-11.1); PLATELET COUNT 218 K/MM3 (134-434); RDW 16.2 % (11.9-15.9); WHITE BLOOD COUNT 13.6 K/mm3 (4.0-10.0)
[2016-08-31 07:50] LABS: ALBUMIN 3.3 g/dl (3.4-5.0); ANION GAP 10 (8-16); CALCIUM 9.2 mg/dL (8.5-10.1); CO2 36 mmol/L (21-32); GLUCOSE,RANDOM 174 mg/dL (74-106)
[2016-08-31 07:55] LABS: ALK PHOS 77 U/L (45-117); BILIRUBIN,TOTAL 0.8 mg/dL (0.2-1.0); CREATININE 1.1 mg/dL (0.7-1.3); SGOT/AST 6 U/L (15-37); SGPT/ALT 24 U/L (12-78); TOT PROT 5.9 g/dl (6.4-8.2)
--- NOTE | 2016-08-31 08:55 | DS ---
Physical Examination Vital Signs: Vital Signs Temperature 98 F 08/31/16 05:35 Pulse Rate 97 H 08/31/16 05:35 Respiratory Rate 20 08/31/16 05:35 Blood Pressure 151/88 08/31/16 05:35 O2 Sat by Pulse Oximetry (%) 98 08/31/16 07:17 Findings/Remarks: awake alert feels good Constitutional: Yes: No Distress Eyes: Yes: WNL HENT: Yes: WNL Neck: Yes: WNL Cardiovascular: Yes: Pulse Irregular Respiratory: Yes: On BiPap, Poor Air Entry Gastrointestinal: Yes: WNL Renal/: Yes: WNL Musculoskeletal: Yes: Muscle Weakness Extremities: Yes: WNL Edema: Yes Edema: LLE: 1+, RLE: 1+ Peripheral Pulses WNL: Yes Integumentary: Yes: WNL Wound/Incision: Yes: Clean/Dry Neurological: Yes: WNL ...Motor Strength: WNL Psychiatric: Yes: WNL Labs: CBC, BMP 08/31/16 05:35 08/31/16 05:35 Discharge Summary Reason For Visit: COPD ACUTE EXACERBATION Current Active Problems Asthma (Acute) COPD exacerbation (Acute) Controlled diabetes mellitus with diabetic peripheral angiopathy without gangrene, without long-term current use of insulin (Acute) Diabetes mellitus (Acute) Edema (Acute) Influenza A (Acute) Procedures: Principal: labs Hospital Course: admitted acute on chronic chf, acute on chronic copd, treated with iv abx , steroids, and iv lasix, monitor at rehab snf Condition: Improved - Instructions Diet, Activity, Other Instructions: low salt/ada Disposition: [facility] - Home Medications Comprehensive Discharge Medication List: Ambulatory Orders Albuterol 0.083% Nebulizer Cielo [Ventolin 0.083% Nebulizer Soln -] 1 neb NEB Q4H PRN 08/26/16 Apixaban [Eliquis] 5 mg PO BID 08/26/16 Atorvastatin Ca [Lipitor] 10 mg PO HS 08/26/16 Budesonide/Formeterol Fumarate [SYMBICORT 80/4.5mcg -] 2 inh PO BID 08/26/16 Digoxin [Lanoxin -] 0.125 mg PO DAILY 08/26/16 Gabapentin 100 mg PO BID 08/26/16 Tamsulosin HCl [Flomax] 0.4 mg PO DAILY 08/26/16 Verapamil HCl [Verapamil ER] 240 mg PO DAILY 08/26/16 Apixaban [Eliquis -] 5 mg PO BID tablet 08/31/16 Furosemide [Lasix -] 60 mg PO BID@0600,1400 tablet 08/31/16 Insulin (Novolog 70/30) [Novolog Mix 70/30 Vial -] 25 units SQ BIDAC vial 08/31 Insulin Sliding Scale [Novolog Vial Sliding Scale -] 1 vial SQ ACHS units 08/31 Prednisone [Deltasone -] 20 mg PO DAILY tablet 08/31/16
[2016-08-31] MEDS ORDERED: PT OWN MED DRAWER 7, Y5N ONE (10:26)
[2016-08-31] MEDS: GABAPENTIN 100 MG CAPSULE (FP) PO SCH ×2 (10:31→21:56)
[2016-08-31] MEDS: APIXABAN 5 MG TABLET PO SCH ×2 (10:31→21:56)
[2016-08-31] MEDS: predniSONE 20 MG TABLET (UD) PO SCH (10:31)
[2016-08-31] MEDS: VERAPAMIL HCL 240 MG E.R. TABLET (FP) PO SCH (10:32)
[2016-08-31] MEDS: DIGOXIN 0.125 MG TABLET (FP) PO SCH (10:32)
[2016-08-31] MEDS: PANTOPRAZOLE SODIUM 40 MG/100 ML PRE-DOCKED IVPB SCH (10:32)
[2016-08-31] MEDS: BUDESONIDE/FORMETEROL FUMARATE 80/4.5 mcg INHALER IH SCH ×2 (10:32→21:56)
[2016-08-31] MEDS: TAMSULOSIN HCL 0.4 MG CAP.ER.24H (FP) PO SCH (10:32)
--- NOTE | 2016-08-31 13:00 | PN ---
Progress Note (short form) - Note Progress Note: cc: sob s: no palps dizzy cp; sob better similar to baseline o: Current Medications Albuterol Sulfate (Ventolin 0.083% Nebulizer Soln -) 1 amp NEB Q4HPO [facility] Last Admin: 08/31/16 10:10 Dose: 1 amp Apixaban (Eliquis -) 5 mg PO BID [facility] Last Admin: 08/31/16 10:31 Dose: 5 mg Atorvastatin Calcium (Lipitor -) 10 mg PO HS [facility] Last Admin: 08/30/16 21:31 Dose: 10 mg Budesonide/Formoterol Fumarate (Symbicort 80/4.5mcg -) 2 puff IH BID [facility] Last Admin: 08/31/16 10:32 Dose: 2 puff Digoxin (Lanoxin -) 0.125 mg PO DAILY [facility] Last Admin: 08/31/16 10:32 Dose: 0.125 mg Furosemide (Lasix -) 60 mg PO BID@0600,1400 [facility] Last Admin: 08/31/16 06:48 Dose: 60 mg Gabapentin (Neurontin -) 100 mg PO BID [facility] Last Admin: 08/31/16 10:31 Dose: 100 mg Insulin Aspart (Novolog Vial Sliding Scale -) 1 vial SQ ACHS [facility] PRN Reason: Protocol Last Admin: 08/31/16 12:12 Dose: 3 units Insulin Aspart (Novolog Mix 70/30 Vial) 30 units SQ BIDAC [facility] Last Admin: 08/31/16 06:47 Dose: 30 units Pantoprazole Sodium (Protonix 40mg Ivpb (Pre-Docked)) 40 mg IVPB DAILY [facility] Last Admin: 08/31/16 10:32 Dose: 40 mg Prednisone (Deltasone -) 20 mg PO DAILY [facility] Last Admin: 08/31/16 10:31 Dose: 20 mg Tamsulosin HCl (Flomax -) 0.4 mg PO DAILY [facility] Last Admin: 08/31/16 10:32 Dose: 0.4 mg Verapamil HCl (Calan Sr -) 240 mg PO DAILY [facility] Last Admin: 08/31/16 10:32 Dose: 240 mg Vital Signs - 24 hr 08/30/16 08/30/16 08/30/16 14:15 18:00 18:10 Temperature 98 F 97.2 F L Pulse Rate 92 H 85 Respiratory 22 20 Rate Blood Pressure 97/68 109/77 O2 Sat by Pulse 94 L 98 Oximetry (%) 08/30/16 08/30/16 08/30/16 21:08 22:00 23:00 Temperature 97.6 F Pulse Rate 85 Respiratory 20 20 Rate Blood Pressure 144/80 O2 Sat by Pulse 98 99 99 Oximetry (%) 08/31/16 08/31/16 08/31/16 02:00 05:35 07:17 Temperature 97.6 F 98 F Pulse Rate 98 H 97 H Respiratory 22 20 Rate Blood Pressure 132/61 151/88 O2 Sat by Pulse 98 Oximetry (%) 08/31/16 08/31/16 08/31/16 10:20 10:25 10:32 Temperature Pulse Rate 102 H 101 H Respiratory Rate Blood Pressure O2 Sat by Pulse 98 98 Oximetry (%) Intake & Output 08/29/16 08/30/16 08/31/16 09/01/16 07:59 07:59 07:59 07:59 Intake Total 50 990 500 Output Total 5958 619 2223 Balance -1025 590 -800 Weight 342 lb 12.8 oz 332 lb 8 oz 335 lb 12.8 oz NAD, calm JVD difficult to assess due to size, neck supple cta bl, nl effort Irregularly, irregular nl s1, s2 no m/r/g + bs soft obese nt nd ext with trace le edema. no cyanosis or clubbing no jaundice, diaphoresis. aaox3 CBC, BMP 08/31/16 05:35 08/31/16 05:35 ecg 08/26/16: afib, rate controlled, nl qtc, no ischemic changes cxr: clear lungs tele: afib, rate mostly controlled. Goes up to 130's-140's when ambulating. echo 07/2016: Nl lv/rv. 1+ AR Echo 08/2015: tds, nl lv/rv, no sig valve path mibi 12/2012: small posterior ischemia vs artifact, nl lvef, no tid 10/2015 CT scan negative for PE a/p: 71 yo male with h/o AFib s/p prior DCCV 12/2015 to SR on AC, HTN, HL, dchf , PVCs with palpitations, morbid obesity, LUCY on bipap, severe COPD, here with sob. sob, acute diastolic chf/copd: - has tendency towards volume retention felicia when receives steroids for copd exacerbation - he also is often noncompliant with bid lasix and was only taking daily several days the week prior to this admit - here now with some mild vol overload with wt up from prior (dc wts usually 338 -9lbs) - no signs pulm edema, no signs acs - wt and le edema have improved with iv lasix, and cr stable. Changed to po lasix today 60 po bid (was on 40 po bid before). - copd/lucy tx per pulm, planned for dc to pulm rehab paroxysmal AF/flutter -cont eliquis for AC -new dx 2015--req'd amio for HR control then (now off due to severe lung dz), s/ p successful DCCV 12/24, then reverted to afib -rate has been adequately controlled with the combo of calan and dig -dig level good here -avoiding BB given severe bronchospasm/copd; would like to avoid long-term amio for same reason hld: -continue statin htn: -stable on current meds possible cad: -pt had borderline positive mibi in 2012 vs soft tissue attenuation artifact -never had angina sx's -no signs acs here -continue medical management with statin, AC without ASA
--- NOTE | 2016-08-31 15:11 | PN ---
Progress Note, Physician History of Present Illness: Pt seen and examined at bedside. He is awake and alert. He feels that his breathing is starting to improve. - Current Medication List Current Medications: Active Medications Albuterol Sulfate (Ventolin 0.083% Nebulizer Soln -) 1 amp NEB Q4HPO [facility] Last Admin: 08/31/16 13:25 Dose: 1 amp Apixaban (Eliquis -) 5 mg PO BID [facility] Last Admin: 08/31/16 10:31 Dose: 5 mg Atorvastatin Calcium (Lipitor -) 10 mg PO HS [facility] Last Admin: 08/30/16 21:31 Dose: 10 mg Budesonide/Formoterol Fumarate (Symbicort 80/4.5mcg -) 2 puff IH BID [facility] Last Admin: 08/31/16 10:32 Dose: 2 puff Digoxin (Lanoxin -) 0.125 mg PO DAILY [facility] Last Admin: 08/31/16 10:32 Dose: 0.125 mg Furosemide (Lasix -) 60 mg PO BID@0600,1400 [facility] Last Admin: 08/31/16 15:06 Dose: 60 mg Gabapentin (Neurontin -) 100 mg PO BID [facility] Last Admin: 08/31/16 10:31 Dose: 100 mg Insulin Aspart (Novolog Vial Sliding Scale -) 1 vial SQ ACHS [facility] PRN Reason: Protocol Last Admin: 08/31/16 12:12 Dose: 3 units Insulin Aspart (Novolog Mix 70/30 Vial) 30 units SQ BIDAC [facility] Last Admin: 08/31/16 06:47 Dose: 30 units Pantoprazole Sodium (Protonix 40mg Ivpb (Pre-Docked)) 40 mg IVPB DAILY [facility] Last Admin: 08/31/16 10:32 Dose: 40 mg Prednisone (Deltasone -) 20 mg PO DAILY [facility] Last Admin: 08/31/16 10:31 Dose: 20 mg Tamsulosin HCl (Flomax -) 0.4 mg PO DAILY [facility] Last Admin: 08/31/16 10:32 Dose: 0.4 mg Verapamil HCl (Calan Sr -) 240 mg PO DAILY [facility] Last Admin: 08/31/16 10:32 Dose: 240 mg - Objective Vital Signs: Vital Signs Temperature 98.4 F 08/31/16 10:00 Pulse Rate 89 08/31/16 14:00 Respiratory Rate 20 08/31/16 14:00 Blood Pressure 121/76 08/31/16 14:00 O2 Sat by Pulse Oximetry (%) 97 08/31/16 13:25 Constitutional: Yes: Calm Eyes: Yes: Conjunctiva Clear HENT: Yes: Atraumatic Neck: Yes: Supple Cardiovascular: Yes: S1, S2 Respiratory: Yes: On BiPap Gastrointestinal: Yes: Soft, Abdomen, Obese Genitourinary: Yes: WNL Extremities: Yes: WNL Edema: No Neurological: Yes: Oriented Psychiatric: Yes: Oriented Labs: CBC, BMP 08/31/16 05:35 08/31/16 05:35 INR, PTT INR 1.28 (0.82-1.09) H 08/26/16 15:04 Problem List - Problems (1) Asthma Code(s): J45.909 - UNSPECIFIED ASTHMA, UNCOMPLICATED (2) COPD exacerbation Code(s): J44.1 - CHRONIC OBSTRUCTIVE PULMONARY DISEASE W (ACUTE) EXACERBATION (3) Diabetes mellitus Code(s): E11.9 - TYPE 2 DIABETES MELLITUS WITHOUT COMPLICATIONS Qualifiers: Diabetes mellitus type: type 2 Diabetes mellitus complication status: with other specified complication (4) Edema Code(s): R60.9 - EDEMA, UNSPECIFIED (5) Acute CHF Code(s): I50.9 - HEART FAILURE, UNSPECIFIED Qualifiers: Congestive heart failure type: unspecified congestive heart failure type Qualified Code(s): I50.9 - Heart failure, unspecified (6) Azotemia Code(s): R79.89 - OTHER SPECIFIED ABNORMAL FINDINGS OF BLOOD CHEMISTRY (7) HTN (hypertension) Code(s): I10 - ESSENTIAL (PRIMARY) HYPERTENSION (8) Morbid obesity Code(s): E66.01 - MORBID (SEVERE) OBESITY DUE TO EXCESS CALORIES Qualifiers: Obesity type: due to excess calories Qualified Code(s): E66.01 - Morbid (severe) obesity due to excess calories (9) Shortness of breath Code(s): R06.02 - SHORTNESS OF BREATH Assessment/Plan Current Medications Generic Name Dose Route Start Last Admin Trade Name Freq PRN Reason Stop Dose Admin Albuterol Sulfate 1 amp 08/26/16 22:00 08/31/16 13:25 Ventolin 0.083% Nebulizer Soln - NEB 1 amp Q4HPO ARVIND Administration Apixaban 5 mg 08/26/16 22:00 02/21/17 10:31 Eliquis - PO 5 mg BID ARVIND Administration Atorvastatin Calcium 10 mg 08/26/16 22:00 08/30/16 21:31 Lipitor - PO 10 mg HS AR[facility]IND Administration Budesonide/Formoterol Fumarate 2 puff 08/26/16 22:00 08/31/16 10:32 Symbicort 80/4.5mcg - IH 2 puff BID AR[facility]IND Administration Digoxin 0.125 mg 08/27/16 10:00 08/31/16 10:32 Lanoxin - PO 0.125 mg DAILY [facility] Administration Furosemide 60 mg 08/31/16 06:00 08/31/16 15:06 Lasix - PO 60 mg BID@0600,1400 AR[facility]IND Administration Gabapentin 100 mg 08/26/16 22:00 08/31/16 10:31 Neurontin - PO 100 mg BID [facility]IND Administration Insulin Aspart 1 vial 08/29/16 02:08 08/31/16 12:12 Novolog Vial Sliding Scale - SQ 3 units ACHS AR[facility]IND Administration Protocol Insulin Aspart 30 units 08/30/16 08:38 08/31/16 06:47 Novolog Mix 70/30 Vial SQ 30 units BIDAC [facility] Administration Pantoprazole Sodium 40 mg 08/29/16 17:30 08/31/16 10:32 Protonix 40mg Ivpb (Pre-Docked) IVPB 40 mg DAILY [facility] Administration Prednisone 20 mg 08/29/16 12:45 08/31/16 10:31 Deltasone - PO 20 mg DAILY [facility] Administration Tamsulosin HCl 0.4 mg 08/27/16 10:00 08/31/16 10:32 Flomax - PO 0.4 mg DAILY [facility] Administration Verapamil HCl 240 mg 08/27/16 10:00 08/31/16 10:32 Calan Sr - PO 240 mg DAILY [facility] Administration Impression 1. azotemia 2. CHF 3. obstructive sleep apnea 4. obesity 5. DM 6. HTN 7. hyperlipidemia 8. resp failure requiring bipap 9. hypomagnesemia Plan - cardio input appreciated, agree with higher dose of PO lasix - monitor renal function - repeat labs in am - will need outpt follow up - taper steroids as tolerated - pt is clinically improving - will follow pt - cont bipap Dr Aguilar
[2016-08-31] MEDS ORDERED: INSULIN (NOVOLOG) ASPART 100 UNITS/ML 10ML VIAL ONE (17:39)
[2016-08-31] MEDS: ATORVASTATIN CA 10 MG TABLET (FP) PO SCH (21:56)
[2016-09-01] MEDS: ALBUTEROL SO4 0.083% IH SOL 2.5 MG/3 ML VIAL.NEB. NEB SCH ×6 (02:15→22:42)
[2016-09-01] MEDS: INSULIN SLIDING SCALE (NOVOLOG) 1 VIAL SQ SCH ×4 (06:04→22:25)
[2016-09-01] MEDS: FUROSEMIDE 40 MG TABLET (FP) PO SCH ×2 (06:06→13:47)
[2016-09-01] MEDS: INSULIN (NOVOLOG MIX 70/30) 100 UNITS/ML MDV SQ SCH ×2 (06:07→17:25)
[2016-09-01] MEDS: GABAPENTIN 100 MG CAPSULE (FP) PO SCH ×2 (10:28→22:26)
[2016-09-01] MEDS: predniSONE 20 MG TABLET (UD) PO SCH (10:28)
[2016-09-01] MEDS: APIXABAN 5 MG TABLET PO SCH ×2 (10:29→22:26)
[2016-09-01] MEDS: VERAPAMIL HCL 240 MG E.R. TABLET (FP) PO SCH (10:29)
[2016-09-01] MEDS: DIGOXIN 0.125 MG TABLET (FP) PO SCH (10:29)
[2016-09-01] MEDS: TAMSULOSIN HCL 0.4 MG CAP.ER.24H (FP) PO SCH (10:29)
[2016-09-01] MEDS: BUDESONIDE/FORMETEROL FUMARATE 80/4.5 mcg INHALER IH SCH ×2 (10:31→22:29)
[2016-09-01] MEDS: PANTOPRAZOLE SODIUM 40 MG/100 ML PRE-DOCKED IVPB SCH (10:31)
--- NOTE | 2016-09-01 10:54 | PN ---
Progress Note (short form) - Note Progress Note: s: no palps dizzy cp; sob better o: Vital Signs Period Temp Pulse Resp BP Sys/Park Pulse Ox Last 24 Hr 97.6 F-98.5 F 88-102 20-20 111-131/51-86 97-99 NAD, calm JVD difficult to assess due to size, neck supple cta bl, nl effort Irregularly, irregular nl s1, s2 no m/r/g + bs soft obese nt nd ext with trace le edema. no cyanosis or clubbing no jaundice, diaphoresis. aaox3 Current Medications Generic Name Dose Route Start Last Admin Trade Name Freq PRN Reason Stop Dose Admin Albuterol Sulfate 1 amp 08/26/16 22:00 09/01/16 09:30 Ventolin 0.083% Nebulizer Soln - NEB 1 amp Q4HPO ARVIND Administration Apixaban 5 mg 08/26/16 22:00 09/01/16 10:29 Eliquis - PO 5 mg BID ARVIND Administration Atorvastatin Calcium 10 mg 08/26/16 22:00 08/31/16 21:56 Lipitor - PO 10 mg HS ARVIND Administration Budesonide/Formoterol Fumarate 2 puff 08/26/16 22:00 09/01/16 10:31 Symbicort 80/4.5mcg - IH 2 puff BID AR[facility]IND Administration Digoxin 0.125 mg 08/27/16 10:00 09/01/16 10:29 Lanoxin - PO 0.125 mg DAILY AR[facility] Administration Furosemide 60 mg 08/31/16 06:00 09/01/16 06:06 Lasix - PO 60 mg BID@0600,1400 AR[facility]IND Administration Gabapentin 100 mg 08/26/16 22:00 09/01/16 10:28 Neurontin - PO 100 mg BID AR[facility]IND Administration Insulin Aspart 1 vial 08/29/16 02:08 09/01/16 06:04 Novolog Vial Sliding Scale - SQ Not Given ACHS ARVIND Protocol Insulin Aspart 30 units 08/30/16 08:38 09/01/16 06:07 Novolog Mix 70/30 Vial SQ 30 units BIDAC AR[facility]IND Administration Pantoprazole Sodium 40 mg 08/29/16 17:30 09/01/16 10:31 Protonix 40mg Ivpb (Pre-Docked) IVPB 40 mg DAILY AR[facility]IND Administration Prednisone 20 mg 08/29/16 12:45 09/01/16 10:28 Deltasone - PO 20 mg DAILY ARVIND Administration Tamsulosin HCl 0.4 mg 08/27/16 10:00 09/01/16 10:29 Flomax - PO 0.4 mg DAILY ARVIND Administration Verapamil HCl 240 mg 08/27/16 10:00 09/01/16 10:29 Calan Sr - PO 240 mg DAILY ARVIND Administration CBC, BMP 08/31/16 05:35 08/31/16 05:35 ecg 08/26/16: afib, rate controlled, nl qtc, no ischemic changes cxr: clear lungs tele: afib, rate mostly controlled echo 07/2016: Nl lv/rv. 1+ AR Echo 08/2015: tds, nl lv/rv, no sig valve path mibi 12/2012: small posterior ischemia vs artifact, nl lvef, no tid 10/2015 CT scan negative for PE a/p: 71 yo male with h/o AFib s/p prior DCCV 12/2015 to SR on AC, HTN, HL, dchf , PVCs with palpitations, morbid obesity, NATHANIEL on bipap, severe COPD, here with sob. sob, acute diastolic chf/copd: - has tendency towards volume retention felicia when receives steroids for copd exacerbation - he also is often noncompliant with bid lasix and was only taking daily several days the week prior to this admit - here now with some mild vol overload with wt up from prior (dc wts usually 338 -9lbs) - no signs pulm edema, no signs acs - wt and le edema have improved with iv lasix, and cr stable. Now on po lasix 60 po bid (was on 40 po bid before). - copd/nathaniel tx per pulm, planned for dc to pulm rehab paroxysmal AF/flutter -cont eliquis for AC -new dx 2015--req'd amio for HR control then (now off due to severe lung dz), s/ p successful DCCV 12/24, then reverted to afib -rate has been adequately controlled with the combo of calan and dig -dig level good here -avoiding BB given severe bronchospasm/copd; would like to avoid long-term amio for same reason hld: -continue statin htn: -stable on current meds possible cad: -pt had borderline positive mibi in 2012 vs soft tissue attenuation artifact -never had angina sx's -no signs acs here -continue medical management with statin, AC without ASA
--- NOTE | 2016-09-01 10:56 | PN ---
Progress Note, Physician History of Present Illness: PULMONARY ALERT,FEELING BETTER,-RESP DISTRESS - Current Medication List Current Medications: Active Medications Albuterol Sulfate (Ventolin 0.083% Nebulizer Soln -) 1 amp NEB Q4HPO [facility] Last Admin: 09/01/16 09:30 Dose: 1 amp Apixaban (Eliquis -) 5 mg PO BID [facility] Last Admin: 09/01/16 10:29 Dose: 5 mg Atorvastatin Calcium (Lipitor -) 10 mg PO HS [facility] Last Admin: 08/31/16 21:56 Dose: 10 mg Budesonide/Formoterol Fumarate (Symbicort 80/4.5mcg -) 2 puff IH BID [facility] Last Admin: 09/01/16 10:31 Dose: 2 puff Digoxin (Lanoxin -) 0.125 mg PO DAILY [facility] Last Admin: 09/01/16 10:29 Dose: 0.125 mg Furosemide (Lasix -) 60 mg PO BID@0600,1400 [facility] Last Admin: 09/01/16 06:06 Dose: 60 mg Gabapentin (Neurontin -) 100 mg PO BID [facility] Last Admin: 09/01/16 10:28 Dose: 100 mg Insulin Aspart (Novolog Vial Sliding Scale -) 1 vial SQ ACHS [facility] PRN Reason: Protocol Last Admin: 09/01/16 06:04 Dose: Not Given Insulin Aspart (Novolog Mix 70/30 Vial) 30 units SQ BIDAC [facility] Last Admin: 09/01/16 06:07 Dose: 30 units Pantoprazole Sodium (Protonix 40mg Ivpb (Pre-Docked)) 40 mg IVPB DAILY [facility] Last Admin: 09/01/16 10:31 Dose: 40 mg Prednisone (Deltasone -) 20 mg PO DAILY [facility] Last Admin: 09/01/16 10:28 Dose: 20 mg Tamsulosin HCl (Flomax -) 0.4 mg PO DAILY [facility] Last Admin: 09/01/16 10:29 Dose: 0.4 mg Verapamil HCl (Calan Sr -) 240 mg PO DAILY [facility] Last Admin: 09/01/16 10:29 Dose: 240 mg - Objective Vital Signs: Vital Signs Temperature 97.8 F 09/01/16 06:00 Pulse Rate 101 H 09/01/16 10:29 Respiratory Rate 20 09/01/16 06:00 Blood Pressure 131/71 09/01/16 06:00 O2 Sat by Pulse Oximetry (%) 97 09/01/16 09:30 Constitutional: Yes: Well Nourished, Obese Eyes: Yes: WNL HENT: Yes: WNL Neck: Yes: WNL Cardiovascular: Yes: Pulse Irregular, S1, S2 Respiratory: Yes: Diminished Gastrointestinal: Yes: WNL Extremities: Yes: WNL Edema: Yes Labs: CBC, BMP 08/31/16 05:35 08/31/16 05:35 INR, PTT INR 1.28 (0.82-1.09) H 08/26/16 15:04 Problem List - Problems (1) Controlled diabetes mellitus with diabetic peripheral angiopathy without gangrene, without long-term current use of insulin Code(s): E11.51 - TYPE 2 DIABETES W DIABETIC PERIPHERAL ANGIOPATH W/O GANGRENE (2) Edema Code(s): R60.9 - EDEMA, UNSPECIFIED (3) Acute CHF Code(s): I50.9 - HEART FAILURE, UNSPECIFIED Qualifiers: Congestive heart failure type: unspecified congestive heart failure type Qualified Code(s): I50.9 - Heart failure, unspecified (4) Atrial fibrillation Code(s): I48.91 - UNSPECIFIED ATRIAL FIBRILLATION Qualifiers: Atrial fibrillation type: unspecified Qualified Code(s): I48.91 - Unspecified atrial fibrillation (5) Dyspnea Code(s): R06.00 - DYSPNEA, UNSPECIFIED Qualifiers: Dyspnea type: shortness of breath Qualified Code(s): R06.02 - Shortness of breath (6) HTN (hypertension) Code(s): I10 - ESSENTIAL (PRIMARY) HYPERTENSION (7) Morbid obesity Code(s): E66.01 - MORBID (SEVERE) OBESITY DUE TO EXCESS CALORIES Qualifiers: Obesity type: due to excess calories Qualified Code(s): E66.01 - Morbid (severe) obesity due to excess calories Assessment/Plan Problem List - Problems (1) Asthma Code(s): J45.909 - UNSPECIFIED ASTHMA, UNCOMPLICATED (2) COPD exacerbation Code(s): J44.1 - CHRONIC OBSTRUCTIVE PULMONARY DISEASE W (ACUTE) EXACERBATION (3) Diabetes mellitus Code(s): E11.9 - TYPE 2 DIABETES MELLITUS WITHOUT COMPLICATIONS Qualifiers: Diabetes mellitus type: type 2 Diabetes mellitus complication status: with other specified complication (4) Acute bronchitis with COPD Code(s): J44.0 - CHRONIC OBSTRUCTIVE PULMON DISEASE W ACUTE LOWER RESP INFCT 5 AFIB Assessment/Plan A/E COPD DOUBT PNA OSAS ON NIPPV M OBESE CHF LASIX INHALED BRONCHODILATORS DAILY WTS PREDNISONE SHORT TERM REHAB SNF BIPAP AT NIGHT AND PRN DR STACK
--- NOTE | 2016-09-01 12:38 | PN ---
Progress Note, Physician History of Present Illness: Pt seen and examined at bedside. He is awake and alert. He feels breathing is improved. - Current Medication List Current Medications: Active Medications Albuterol Sulfate (Ventolin 0.083% Nebulizer Soln -) 1 amp NEB Q4HPO [facility] Last Admin: 09/01/16 09:30 Dose: 1 amp Apixaban (Eliquis -) 5 mg PO BID [facility] Last Admin: 09/01/16 10:29 Dose: 5 mg Atorvastatin Calcium (Lipitor -) 10 mg PO HS [facility] Last Admin: 08/31/16 21:56 Dose: 10 mg Budesonide/Formoterol Fumarate (Symbicort 80/4.5mcg -) 2 puff IH BID [facility] Last Admin: 09/01/16 10:31 Dose: 2 puff Digoxin (Lanoxin -) 0.125 mg PO DAILY [facility] Last Admin: 09/01/16 10:29 Dose: 0.125 mg Furosemide (Lasix -) 60 mg PO BID@0600,1400 [facility] Last Admin: 09/01/16 06:06 Dose: 60 mg Gabapentin (Neurontin -) 100 mg PO BID [facility] Last Admin: 09/01/16 10:28 Dose: 100 mg Insulin Aspart (Novolog Vial Sliding Scale -) 1 vial SQ ACHS [facility] PRN Reason: Protocol Last Admin: 09/01/16 11:47 Dose: 3 units Insulin Aspart (Novolog Mix 70/30 Vial) 30 units SQ BIDAC [facility] Last Admin: 09/01/16 06:07 Dose: 30 units Pantoprazole Sodium (Protonix 40mg Ivpb (Pre-Docked)) 40 mg IVPB DAILY [facility] Last Admin: 09/01/16 10:31 Dose: 40 mg Prednisone (Deltasone -) 20 mg PO DAILY [facility] Last Admin: 09/01/16 10:28 Dose: 20 mg Tamsulosin HCl (Flomax -) 0.4 mg PO DAILY [facility] Last Admin: 09/01/16 10:29 Dose: 0.4 mg Verapamil HCl (Calan Sr -) 240 mg PO DAILY [facility] Last Admin: 09/01/16 10:29 Dose: 240 mg - Objective Vital Signs: Vital Signs Temperature 98.2 F 09/01/16 10:00 Pulse Rate 101 H 09/01/16 10:29 Respiratory Rate 20 09/01/16 10:00 Blood Pressure 115/64 09/01/16 10:00 O2 Sat by Pulse Oximetry (%) 97 09/01/16 09:30 Constitutional: Yes: Calm Eyes: Yes: Conjunctiva Clear HENT: Yes: Atraumatic Neck: Yes: Supple Cardiovascular: Yes: S1, S2 Respiratory: Yes: On Nasal O2 Gastrointestinal: Yes: Soft, Abdomen, Obese Genitourinary: Yes: WNL Musculoskeletal: Yes: WNL Neurological: Yes: Oriented Psychiatric: Yes: Oriented Labs: CBC, BMP 08/31/16 05:35 08/31/16 05:35 INR, PTT INR 1.28 (0.82-1.09) H 08/26/16 15:04 Problem List - Problems (1) Asthma Code(s): J45.909 - UNSPECIFIED ASTHMA, UNCOMPLICATED (2) COPD exacerbation Code(s): J44.1 - CHRONIC OBSTRUCTIVE PULMONARY DISEASE W (ACUTE) EXACERBATION (3) Diabetes mellitus Code(s): E11.9 - TYPE 2 DIABETES MELLITUS WITHOUT COMPLICATIONS Qualifiers: Diabetes mellitus type: type 2 Diabetes mellitus complication status: with other specified complication (4) Edema Code(s): R60.9 - EDEMA, UNSPECIFIED (5) Acute CHF Code(s): I50.9 - HEART FAILURE, UNSPECIFIED Qualifiers: Congestive heart failure type: unspecified congestive heart failure type Qualified Code(s): I50.9 - Heart failure, unspecified (6) Azotemia Code(s): R79.89 - OTHER SPECIFIED ABNORMAL FINDINGS OF BLOOD CHEMISTRY (7) HTN (hypertension) Code(s): I10 - ESSENTIAL (PRIMARY) HYPERTENSION (8) Morbid obesity Code(s): E66.01 - MORBID (SEVERE) OBESITY DUE TO EXCESS CALORIES Qualifiers: Obesity type: due to excess calories Qualified Code(s): E66.01 - Morbid (severe) obesity due to excess calories (9) Shortness of breath Code(s): R06.02 - SHORTNESS OF BREATH Assessment/Plan Current Medications Generic Name Dose Route Start Last Admin Trade Name Freq PRN Reason Stop Dose Admin Albuterol Sulfate 1 amp 08/26/16 22:00 09/01/16 09:30 Ventolin 0.083% Nebulizer Soln - NEB 1 amp Q4HPO ARVIND Administration Apixaban 5 mg 08/26/16 22:00 09/01/16 10:29 Eliquis - PO 5 mg BID ARVIND Administration Atorvastatin Calcium 10 mg 08/26/16 22:00 08/31/16 21:56 Lipitor - PO 10 mg HS ARVIND Administration Budesonide/Formoterol Fumarate 2 puff 08/26/16 22:00 09/01/16 10:31 Symbicort 80/4.5mcg - IH 2 puff BID ARVIND Administration Digoxin 0.125 mg 08/27/16 10:00 09/01/16 10:29 Lanoxin - PO 0.125 mg DAILY ARVIND Administration Furosemide 60 mg 08/31/16 06:00 09/01/16 06:06 Lasix - PO 60 mg BID@0600,1400 ARVIND Administration Gabapentin 100 mg 08/26/16 22:00 09/01/16 10:28 Neurontin - PO 100 mg BID ARVIND Administration Insulin Aspart 1 vial 08/29/16 02:08 09/01/16 11:47 Novolog Vial Sliding Scale - SQ 3 units ACHS ARVIND Administration Protocol Insulin Aspart 30 units 08/30/16 08:38 09/01/16 06:07 Novolog Mix 70/30 Vial SQ 30 units BIDAC ARVIND Administration Pantoprazole Sodium 40 mg 08/29/16 17:30 09/01/16 10:31 Protonix 40mg Ivpb (Pre-Docked) IVPB 40 mg DAILY ARVIND Administration Prednisone 20 mg 08/29/16 12:45 09/01/16 10:28 Deltasone - PO 20 mg DAILY ARVIND Administration Tamsulosin HCl 0.4 mg 08/27/16 10:00 09/01/16 10:29 Flomax - PO 0.4 mg DAILY ARVIND Administration Verapamil HCl 240 mg 08/27/16 10:00 09/01/16 10:29 Calan Sr - PO 240 mg DAILY ARVIND Administration Impression 1. azotemia 2. CHF 3. obstructive sleep apnea 4. obesity 5. DM 6. HTN 7. hyperlipidemia 8. resp failure requiring bipap 9. hypomagnesemia Plan - will follow as outpt - cont with lasix - cont with bipap prn - cardio follow up appreciated - taper steroids as tolerated - pt is clinically improving - will follow pt Dr Aguilar
[2016-09-01] MEDS: ATORVASTATIN CA 10 MG TABLET (FP) PO SCH (22:26)
[2016-09-02] MEDS: ALBUTEROL SO4 0.083% IH SOL 2.5 MG/3 ML VIAL.NEB. NEB SCH ×3 (02:05→09:57)
[2016-09-02] MEDS: INSULIN SLIDING SCALE (NOVOLOG) 1 VIAL SQ SCH (06:49)
[2016-09-02] MEDS: FUROSEMIDE 40 MG TABLET (FP) PO SCH (06:49)
[2016-09-02] MEDS: INSULIN (NOVOLOG MIX 70/30) 100 UNITS/ML MDV SQ SCH (06:49)
[2016-09-02 09:03] VITALS: BP 114/50; TEMP 98.2
[2016-09-02] MEDS: GABAPENTIN 100 MG CAPSULE (FP) PO SCH (09:53)
[2016-09-02] MEDS: APIXABAN 5 MG TABLET PO SCH (09:53)
[2016-09-02] MEDS: predniSONE 20 MG TABLET (UD) PO SCH (09:53)
[2016-09-02] MEDS: TAMSULOSIN HCL 0.4 MG CAP.ER.24H (FP) PO SCH (09:53)
[2016-09-02] MEDS: DIGOXIN 0.125 MG TABLET (FP) PO SCH (09:53)
[2016-09-02] MEDS: PANTOPRAZOLE SODIUM 40 MG/100 ML PRE-DOCKED IVPB SCH (09:53)
[2016-09-02] MEDS: VERAPAMIL HCL 240 MG E.R. TABLET (FP) PO SCH (09:53)
[2016-09-02] MEDS: BUDESONIDE/FORMETEROL FUMARATE 80/4.5 mcg INHALER IH SCH (09:54)
[2016-09-02 09:56] VITALS: PULSE 94
--- NOTE | 2016-09-02 10:30 | PN ---
Progress Note (short form) - Note Progress Note: s: no palps dizzy cp; sob better o: Vital Signs Period Temp Pulse Resp BP Sys/Park Pulse Ox Last 24 Hr 97.5 F-98.2 F 87-104 16- 109-135/50-90 95-98 NAD, calm JVD difficult to assess due to size, neck supple cta bl, nl effort Irregularly, irregular nl s1, s2 no m/r/g + bs soft obese nt nd ext with trace le edema. no cyanosis or clubbing no jaundice, diaphoresis. aaox3 Current Medications Generic Name Dose Route Start Last Admin Trade Name Freq PRN Reason Stop Dose Admin Albuterol Sulfate 1 amp 08/26/16 22:00 09/02/16 09:57 Ventolin 0.083% Nebulizer Soln - NEB 1 amp Q4HPO ARVIND Administration Apixaban 5 mg 08/26/16 22:00 09/02/16 09:53 Eliquis - PO 5 mg BID ARVIND Administration Atorvastatin Calcium 10 mg 08/26/16 22:00 09/01/16 22:26 Lipitor - PO 10 mg HS ARVIND Administration Budesonide/Formoterol Fumarate 2 puff 08/26/16 22:00 09/02/16 09:54 Symbicort 80/4.5mcg - IH 2 puff BID ARVIND Administration Digoxin 0.125 mg 08/27/16 10:00 09/02/16 09:53 Lanoxin - PO 0.125 mg DAILY ARVIND Administration Furosemide 60 mg 08/31/16 06:00 09/02/16 06:49 Lasix - PO 60 mg BID@0600,1400 ARVIND Administration Gabapentin 100 mg 08/26/16 22:00 09/02/16 09:53 Neurontin - PO 100 mg BID ARVIND Administration Insulin Aspart 1 vial 08/29/16 02:08 09/02/16 06:49 Novolog Vial Sliding Scale - SQ Not Given ACHS ARVIND Protocol Insulin Aspart 32 units 09/01/16 12:38 09/02/16 06:49 Novolog Mix 70/30 Vial SQ 32 units BIDAC ARVIND Administration Pantoprazole Sodium 40 mg 08/29/16 17:30 09/02/16 09:53 Protonix 40mg Ivpb (Pre-Docked) IVPB Not Given DAILY ARVIND Prednisone 20 mg 08/29/16 12:45 09/02/16 09:53 Deltasone - PO 20 mg DAILY ARVIND Administration Tamsulosin HCl 0.4 mg 08/27/16 10:00 09/02/16 09:53 Flomax - PO 0.4 mg DAILY ARVIND Administration Verapamil HCl 240 mg 08/27/16 10:00 09/02/16 09:53 Calan Sr - PO 240 mg DAILY ARVIND Administration CBC, BMP 08/31/16 05:35 08/31/16 05:35 ecg 08/26/16: afib, rate controlled, nl qtc, no ischemic changes cxr: clear lungs tele: afib, rate mostly controlled echo 07/2016: Nl lv/rv. 1+ AR Echo 08/2015: tds, nl lv/rv, no sig valve path mibi 12/2012: small posterior ischemia vs artifact, nl lvef, no tid 10/2015 CT scan negative for PE a/p: 71 yo male with h/o AFib s/p prior DCCV 12/2015 to SR on AC, HTN, HL, dchf , PVCs with palpitations, morbid obesity, NATHANIEL on bipap, severe COPD, here with sob. sob, acute diastolic chf/copd: - has tendency towards volume retention felicia when receives steroids for copd exacerbation - he also is often noncompliant with bid lasix and was only taking daily several days the week prior to this admit - here now with some mild vol overload with wt up from prior (dc wts usually 338 -9lbs) - no signs pulm edema, no signs acs - wt and le edema have improved with iv lasix, and cr stable. Cont same po lasix 60 po bid (was on 40 po bid before). - copd/nathaniel tx per pulm, planned for dc to pulm rehab paroxysmal AF/flutter -cont eliquis for AC -new dx 2015--req'd amio for HR control then (now off due to severe lung dz), s/ p successful DCCV 12/24, then reverted to afib -rate has been adequately controlled with the combo of calan and dig -dig level good here -avoiding BB given severe bronchospasm/copd; would like to avoid long-term amio for same reason hld: -continue statin htn: -stable on current meds possible cad: -pt had borderline positive mibi in 2012 vs soft tissue attenuation artifact -never had angina sx's -no signs acs here -continue medical management with statin, AC without ASA cardiac green remains stable for rehab
== END 2016-09-02 11:02 | DRG 291 ==
LOC: JER 13:49 → JERBED 17:49 → J4W 20:36 → OBSVTOIN 08-28 16:30
PROVIDERS: ADMIT Family Medicine; ATTEND Family Medicine
PROC: 5A09457 Assistance with Respiratory Ventilation, 24-96 Consecutive Hours, Continuous Positive Airway Pressure (ICD-10-PCS; principal; 2016-08-26)
DX: I11.0 Hypertensive heart disease with heart failure (principal); J96.90 Respiratory failure, unspecified, unspecified whether with hypoxia or hypercapnia; J44.0 Chronic obstructive pulmonary disease with (acute) lower respiratory infection; Z68.42 Body mass index [BMI] 45.0-49.9, adult; J44.1 Chronic obstructive pulmonary disease with (acute) exacerbation; I50.33 Acute on chronic diastolic (congestive) heart failure; I42.9 Cardiomyopathy, unspecified; J20.9 Acute bronchitis, unspecified; E11.51 Type 2 diabetes mellitus with diabetic peripheral angiopathy without gangrene; E66.01 Morbid (severe) obesity due to excess calories; K76.0 Fatty (change of) liver, not elsewhere classified; E78.00 Pure hypercholesterolemia, unspecified; Z99.81 Dependence on supplemental oxygen; G47.30 Sleep apnea, unspecified; Z79.4 Long term (current) use of insulin; I48.91 Unspecified atrial fibrillation; K21.9 Gastro-esophageal reflux disease without esophagitis; R60.0 Localized edema; Z87.891 Personal history of nicotine dependence; I48.0 Paroxysmal atrial fibrillation; Z79.01 Long term (current) use of anticoagulants; T38.0X5A Adverse effect of glucocorticoids and synthetic analogues, initial encounter; E88.81 Metabolic syndrome and other insulin resistance; J45.909 Unspecified asthma, uncomplicated; G47.33 Obstructive sleep apnea (adult) (pediatric); E83.42 Hypomagnesemia; E11.65 Type 2 diabetes mellitus with hyperglycemia
CPT/HCPCS: 36415; 36600; 71010-TC; 80048; 80053; 80162; 82375; 82550; 82553; 82803; 83050; 83735; 83880; 84484; 85025; 85027; 85610; 93005; 93010; 94640; 94660; 97116-GP; 97161-GP; 99285-25; G0378

== ENCOUNTER 2017-02-21 12:33 | Emergency (ER) | payer OTHER ==
[2017-02-21 12:38] VITALS: TEMP 97.7; BMI 46.3
--- NOTE | 2017-02-21 13:06 | PDOC ---
History of Present Illness - History of Present Illness Initial Comments: 02/21/17 13:58 HPI: 71M w/ hx of COPD on home O2 (last hospitalization in 08/2016) and CHF (last echo shows EF of 49%) presenting with chief complaint of "Dr. Brothers wants me to be admitted for COPD exacerbation." He reports that last night, he became more SOB than usual, and it took him longer to shower this am than usual due to SOB. He had an appointment this am with Dr. Brothers for pre-op evaluation for a cataract surgery, and Dr. Brothers stated that the pt appeared SOB and his face was ashy, so he sent him to the ED. He denies recent fevers, chills, cough, chest pain, palpitations, nausea, emesis, dizziness, dysuria, viral symptoms, and medication changes. Pt reports that at baseline, he is on 4L O2, can do household activities for 3- 5 minutes, walk 30-40 yards before becoming SOB. He never uses stairs. He uses a cane to walk outside his home. 02/21/17 14:06 02/21/17 14:08 02/21/17 14:10 <Andres Dawson - Last Filed: 02/21/17 16:03> <Vance Kapadia - Last Filed: 02/22/17 12:26> - General Chief Complaint: Shortness of Breath Stated Complaint: PCP SENT FOR ADMIN Time Seen by Provider: 02/21/17 13:06 Past History - Past Medical History Anemia: No Asthma: No Cancer: No Cardiac Disorders: Yes (CAD, COARSE A.FIBRILATION, CHRONIC ISCHEMIC HEART DISEASE, CARDIOMYOPATHY) CVA: No COPD: Yes (EMPHYSEMA) CHF: Yes Dementia: No Diabetes: Yes (IDDM) GI Disorders: No Disorders: No HTN: Yes Hypercholesterolemia: Yes Liver Disease: Yes (FATTY LIVER) Suicide Attempt (Hx): No Seizures: No Thyroid Disease: No Comment:: 02/21/17 14:03 PMH: a-fib, CAD, HLD, fatty liver, arthritis, sleep apnea, DM, asthma PSH: tonsillectomy, r knee surgery, L knee surgery Meds: include apixaban, insulin, digoxin, verapamil, lasix, ventolin, tamsulosin Allergies: NKDA Social Hx: 80 pack year smoking history, quit 6 years ago, denies alcohol and drug use, 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 - Surgical History Abdominal Surgery: No Appendectomy: No Cardiac Surgery: No Cholecystectomy: No Lung Surgery: No Neurologic Surgery: No Orthopedic Surgery: Yes (bilateral knee surgery 1974 left knee 1979) - Family Disease History Family Disease History: Heart Disease: Father - Immunization History Immunization Up to Date: Yes - Psycho/Social/Smoking Cessation Hx Anxiety: No Suicidal Ideation: No Smoking Status: Yes (QUIT 2011) Smoking History: Never smoked Have you smoked in the past 12 months: No Number of Cigarettes Smoked Daily: 0 If you are a former smoker, when did you quit?: 6 years ago Cigars Per Day: 0 Information on smoking cessation initiated: No Hx Alcohol Use: No Drug/Substance Use Hx: No Substance Use Type: None Hx Substance Use Treatment: No <Andres Dawson - Last Filed: 02/21/17 16:03> <Vance Kapadia - Last Filed: 02/22/17 12:26> - Past Medical History Allergies/Adverse Reactions: Allergies Allergy/AdvReac Type Severity Reaction Status Date / Time No Known Allergies Allergy Verified 02/21/17 12:38 Home Medications: Ambulatory Orders Albuterol 0.083% Nebulizer Cielo [Ventolin 0.083% Nebulizer Soln -] 1 neb NEB Q4H PRN 08/26/16 Apixaban [Eliquis] 5 mg PO BID 08/26/16 Atorvastatin Ca [Lipitor] 10 mg PO HS 08/26/16 Digoxin [Lanoxin -] 0.125 mg PO DAILY 08/26/16 Gabapentin 100 mg PO BID 08/26/16 Tamsulosin HCl [Flomax] 0.4 mg PO DAILY 08/26/16 Verapamil HCl [Verapamil ER] 240 mg PO DAILY 08/26/16 Insulin (Novolog 70/30) [Novolog Mix 70/30 Vial -] 25 units SQ BIDAC vial 08/31 Insulin Sliding Scale [Novolog Vial Sliding Scale -] 1 vial SQ ACHS units 08/31 Prednisone [Deltasone -] 20 mg PO DAILY tablet 08/31/16 Furosemide [Lasix -] 40 mg PO BID@0600,1400 02/21/17 Review of Systems - Review of Systems Comments:: 02/21/17 14:05 02/21/17 14:07 GENERAL: No fever, chills, night sweats, or weakness. HEAD, EYES, EARS, NOSE AND THROAT: No change in vision, ear pain, or sore throat CARDIOVASCULAR: No chest pain or palpitations RESPIRATORY: No cough, wheezing, or hemoptysis. GASTROINTESTINAL: No nausea, vomiting, diarrhea, + constipation, no blood in the stool. GENITOURINARY: No dysuria, +frequency MUSCULOSKELETAL: No joint or muscle swelling or pain. SKIN: No rashes or pruritis ENDOCRINE: No increased thirst. No abnormal weight change NEUROLOGIC: No headache, dizziness, loss of consciousness, or change in strength /sensation. <Andres Dawson - Last Filed: 02/21/17 16:03> *Physical Exam - Vital Signs Last Vital Signs Temp Pulse Resp BP Pulse Ox 97.7 F 95 H 16 134/83 95 02/21/17 12:36 02/21/17 12:36 02/21/17 12:36 02/21/17 12:36 02/21/17 12:36 - Physical Exam Comments: 02/21/17 14:08 GENERAL: Awake, alert, and fully oriented, in no acute distress HEAD: normocephalic, atraumatic NECK: Normal ROM, supple, no lymphadenopathy, JVD, or masses HEART: irregularly irregular, no murmurs, rubs or gallops LUNGS: mild b/l crackles, no expiratory wheezing ABDOMEN: Soft, nontender, nondistended, normoactive bowel sounds. No guarding, no rebound. No masses EXTREMITIES: b/l lower extremity edema 2+ SKIN: Warm, dry, no rashes or lesions noted. NEUROLOGICAL: Cranial nerves II through XII grossly intact. Normal speech, normal gait, no focal sensorimotor deficits <Andres Dawson - Last Filed: 02/21/17 16:03> - Vital Signs Last Vital Signs Temp Pulse Resp BP Pulse Ox 97.7 F 95 H 16 134/83 95 02/21/17 12:36 02/21/17 12:36 02/21/17 12:36 02/21/17 12:36 02/21/17 12:36 <Vance Kapadia - Last Filed: 02/22/17 12:26> ED Treatment Course - LABORATORY CBC & Chemistry Diagram: 02/21/17 13:46 02/21/17 13:46 <Andres Dawson - Last Filed: 02/21/17 16:03> - LABORATORY CBC & Chemistry Diagram: 02/21/17 13:46 02/21/17 13:46 <Vance Kapadia - Last Filed: 02/22/17 12:26> Medical Decision Making - Medical Decision Making 02/21/17 14:10 71M w/ hx of COPD on home O2 (last hospitalization in 08/2016) and CHF (last echo shows EF of 49%) presenting with acute increased SOB. Differential includes COPD exacerbation, CHF exacerbation, NH, and anemia. CBC: wbc count of 16 in setting of steroid use. Hgb of 11, decreased from baseline CMP: wnl EKG: a-fib CXR: unremarkable BNP: 200 VBG: Pt given combinebs. Spoke to Dr. Brothers who said that given his lab and imaging results, he should be given IV solumedrol and is ok discharging him. 02/21/17 14:12 02/21/17 15:31 <Andres Dawson - Last Filed: 02/21/17 16:03> *DC/Admit/Observation/Transfer - Discharge Dispostion Admit: No - Attestations Physician Attestion: 02/21/17 15:38 I, Dr. Andres Dawson, attest that this document has been prepared under my direction and personally reviewed by me in its entirety. I further attest, that it accurately reflects all work, treatment, procedures and medical decision -making performed by me. <Andres Dawson - Last Filed: 02/21/17 16:03> <Vance Kapadia - Last Filed: 02/22/17 12:26> Diagnosis at time of Disposition: Shortness of breath - Discharge Dispostion Disposition: HOME Condition at time of disposition: Improved - Referrals Referrals: Mars Brothers MD [Primary Care Provider] - - Patient Instructions Printed Discharge Instructions: DI for Shortness of Breath Additional Instructions: Lab tests and imaging did not strongly demonstrate a COPD or CHF exacerbation. You were given combinebs and IV solumedrol in the hospital to help with your shortness of breath. Return to the ED if you symptoms persist, worsen, or you develop any concerning symptoms such as chest pain. Follow up with Dr. Brothers in several days.
--- NOTE | 2017-02-21 13:48 | PDOC ---
Attending Attestation - Resident Resident Name: [email or web address] - ED Attending Attestation I have performed the following: I have examined & evaluated the patient, The case was reviewed & discussed with the resident, I agree w/resident's findings & plan, Exceptions are as noted - HPI HPI: 02/21/17 14:43 71y M hx of copd on 4L of home o2, chf, afib, cardiomyopathy, AODM, HL, sent to the ED by PMD for evalutaion of COPD. The patient notes increased sob/oliveira since last night, without any chest pain, cough, fever/chills, palpitations, n/v, abd pain, back pain. Leg swelling is baseline. On arrival pts vitals were normal including his saturation. his lungs noted for verymild wheezing but fairly clear and pt was in n oacute respiratory distress. pts labs reviewed noted for hyperglycemia, leukcocytosis - likely due to the pt being on chronic steroids suspect COPD exacerbation will dc the pt for COPD exacerbation and PMD/pulm fu - Physicial Exam PE: 02/22/17 12:20 see above - Medical Decision Making 02/22/17 12:20 see above Heart Score/ECG Review - ECG Impressions Comment:: 02/21/17 16:31 Twelve-lead EKG was performed and reviewed by me. Irregegular irregular rate of [address] changes suggestive o acute ischemia
[2017-02-21] MEDS ORDERED: ALBUTEROL SO4 2.5/IPRATROPIUM 0.5 INH SOL 3 ML VIAL.NEB. NEB ONE ×2 (13:55→14:30)
[2017-02-21 14:04] LABS: BASOPHIL 0.6 % (0-2.0); EOSINOPHIL 0.2 % (0-4.5); MCH 26.6 pg (25.7-33.7); MCHC 31.4 g/dl (32.0-35.9); MEAN CELL VOLUME 84.7 fl (80-96); MEAN PLT VOLUME 8.5 fl (7.5-11.1); PLATELET COUNT 349 K/MM3 (134-434); RDW 16.7 % (11.9-15.9); WHITE BLOOD COUNT 16.4 K/mm3 (4.0-10.0)
[2017-02-21 14:30] LABS: ALBUMIN 3.4 g/dl (3.4-5.0); ANION GAP 11 (8-16); BILIRUBIN,TOTAL 0.4 mg/dL (0.2-1.0); CALCIUM 9.3 mg/dL (8.5-10.1); CO2 26 mmol/L (21-32); SGOT/AST 13 U/L (15-37); SGPT/ALT 32 U/L (12-78); TOT PROT 6.5 g/dl (6.4-8.2)
[2017-02-21 14:33] LABS: ALK PHOS 99 U/L (45-117); GLUCOSE,RANDOM 382 mg/dL (74-106)
[2017-02-21] MEDS ORDERED: methylPREDNISolone NA SUCC 40 MG/1 ML VIAL IVPB ONE (15:26)
[2017-02-21 15:37] LABS: VENOUS PH 7.38 (7.32-7.42)
[2017-02-21 15:38] LABS: VENOUS BLOOD GAS HCO3 23.4 meq/L (19-25)
[2017-02-21] MEDS ORDERED: methylPREDNISolone NA SUCC 125 MG/2 ML VIAL IVPB ONE (15:41)
[2017-02-21] MEDS ORDERED: methylPREDNISolone NA SUCC 125 MG/2 ML VIAL ONE (15:48)
[2017-02-21 17:42] VITALS: BP 128/75; PULSE 82
--- NOTE | 2017-02-23 16:48 | EKG ---
Test Reason : Blood Pressure : / mmHG Vent. Rate : 088 BPM Atrial Rate : 227 BPM P-R Int : 000 ms QRS Dur : 088 ms QT Int : 330 ms P-R-T Axes : 000 060 016 degrees QTc Int : 399 ms ATRIAL FIBRILLATION ABNORMAL ECG WHEN COMPARED WITH ECG OF 26-AUG-2016 14:05, NO SIGNIFICANT CHANGE WAS FOUND Confirmed by VY SHANE MD ([id number]) on 02/23/2017 4:47:37 PM Referred By: Confirmed By:VY SHANE MD
== END 2017-02-21 17:42 | disposition home or self-care (01) ==
LOC: JER 12:33
PROC: 3E0F7GC Introduction of Other Therapeutic Substance into Respiratory Tract, Via Natural or Artificial Opening (ICD-10-PCS; principal; 2017-02-21)
PROC: 3E033GC Introduction of Other Therapeutic Substance into Peripheral Vein, Percutaneous Approach (ICD-10-PCS; 2017-02-21)
DX: R06.02 Shortness of breath (principal); J44.9 Chronic obstructive pulmonary disease, unspecified; I50.9 Heart failure, unspecified; I48.91 Unspecified atrial fibrillation; E11.9 Type 2 diabetes mellitus without complications; I10 Essential (primary) hypertension; E78.00 Pure hypercholesterolemia, unspecified; K76.0 Fatty (change of) liver, not elsewhere classified
CPT/HCPCS: 71010-TC; 80053; 82803; 83880; 85025; 93005; 93010; 99284-25

== ENCOUNTER 2017-03-09 07:39 | Day surgery (SDC) | payer OTHER ==
[2017-03-08 14:22] VITALS: BMI 46.0
[~2017-03-09 07:39] MED LIST: ACETAMINOPHEN 325 MG TABLET (FP) PO PRN
[2017-03-09] MEDS ORDERED: LIDOCAINE HCL/PF 1% SDV 5ML VIAL ONE (07:49)
[2017-03-09] MEDS ORDERED: TRYPAN BLUE 0.5 ML DISP.SYRIN ONE (07:49)
[2017-03-09] MEDS ORDERED: LIDOCAINE HCL 2% JELLY (5 ML/TUBE) ONE (07:49)
[2017-03-09] MEDS ORDERED: TROPICAMIDE 1% OPHTH SOLN 15 ML BOTTLE ONE (08:06)
[2017-03-09] MEDS ORDERED: FLURBIPROFEN 0.03% OPHTH SOLN 2.5 ML BOTTLE ONE (08:06)
[2017-03-09] MEDS ORDERED: CIPROFLOXACIN 0.3% EYE DROPS 5 ML BOTTLE ONE (08:07)
[2017-03-09] MEDS ORDERED: CYCLOPENTOLATE HCL 1% OPHTH SOLN 2 ML BOTTLE ONE (08:07)
[2017-03-09] MEDS ORDERED: PHENYLEPHRINE 2.5% OPHTH SOLN 15 ML BOTTLE ONE (08:07)
[2017-03-09] MEDS: TROPICAMIDE 1% OPHTH SOLN 15 ML BOTTLE OP SCH ×3 (08:10→08:43)
[2017-03-09] MEDS: CYCLOPENTOLATE HCL 1% OPHTH SOLN 2 ML BOTTLE OP SCH ×3 (08:10→08:43)
[2017-03-09] MEDS: CIPROFLOXACIN HCL 0.3% OPHTH 2.5ML BOTTLE OP SCH ×3 (08:10→08:42)
[2017-03-09] MEDS: PHENYLEPHRINE 2.5% OPHTH SOLN 15 ML BOTTLE OP SCH ×3 (08:10→08:43)
[2017-03-09] MEDS: FLURBIPROFEN 0.03% OPHTH SOLN 2.5 ML BOTTLE OP SCH ×3 (08:10→08:43)
[2017-03-09] MEDS ORDERED: LIDOCAINE HCL 2% JELLY (5 ML/TUBE) TP ONE (09:54)
[2017-03-09] MEDS ORDERED: MIDAZOLAM HCL 2 MG/2 ML SINGLE DOSE VIAL ONE (10:18)
[2017-03-09] MEDS ORDERED: POVIDONE-IODINE 5% OPHTHALMIC PREP 30 ML SOLUTION OS ONE (10:25)
[2017-03-09] MEDS ORDERED: BSS (NA/CA/MG/K) BALANCED SALT SOLUTION OPHTH SOLN 15 ML BOTTLE OS ONE (10:28)
[2017-03-09] MEDS ORDERED: TRYPAN BLUE 0.5 ML DISP.SYRIN IO ONE (10:30)
[2017-03-09] MEDS ORDERED: LIDOCAINE HCL 1% PRESERVATIVE FREE - 30ML VIAL IO ONE (10:30)
[2017-03-09] MEDS ORDERED: CHONDROITIN SU A/HYALUR SOD 1 KIT IO ONE (10:30)
[2017-03-09] MEDS ORDERED: PHENYLEPHRINE/KETOROLAC 4 ML VIAL IO ONE (10:32)
[2017-03-09 11:45] VITALS: BP 126/55; PULSE 80; TEMP 97.9
--- NOTE | 2017-03-09 12:09 | SPEC ---
DATE OF OPERATION: 03/09/2017 SURGEON: Marjan Acharya M.D. PREOPERATIVE DIAGNOSIS: Cataract, left eye. POSTOPERATIVE DIAGNOSIS: Mature cataract, left eye, OPERATION: Phacoemulsification of left cataract with capsular staining with Trypan blue and posterior chamber intraocular lens implantation. The lens used [id number], 19.5 diopter power, serial No. [id number]. ANESTHESIA: Topical MAC. COMPLICATIONS: None. PROCEDURE: The patient was brought to the operating room and correctly identified along with the operative site as well as correct intraocular lens bates. The patient was then prepped and draped in the usual sterile fashion including 5% Betadine solution in the conjunctival sac and an eyelid drape. An eyelid speculum was then placed into the operative eye. The eye was inspected and a poor red reflex was noted. A paracentesis port was created and .5 mL of intracameral preservative-free Lidocaine 1% was given. Beneath an air bubble, the capsule was then stained with Trypan blue. The Trypan blue was then irrigated from the eye with balanced salt solution (BBS). Viscoelastic was injected to inflate the anterior chamber. A temporal clear corneal wound was created. A continuous circular capsulorrhexis was performed. The nucleus was then hydro-dissected and hydro-delineated was BSS and removed with phacoemulsification via [id number] approach. The remaining cortical material was irrigated and aspirated from the eye. Viscoelastic was injected in the anterior chamber to inflate the capsular bag. The intraocular lens was then injected into the bag. The Viscoelastic was irrigated and aspirated from the eye. All wounds were tested and found to be watertight. No suture was placed. The intraocular lens was noted to be well centered and covered by the anterior capsular border. Topical Vancomycin was given. The eye was patched and shielded. The patient was discharged from the operating room in stable condition MARJAN ACHARYA M.D. [id number]
== END 2017-03-09 11:48 | disposition home or self-care (01) ==
LOC: JASU-SURG 07:39
PROVIDERS: ATTEND Ophthalmology
PROC: 08RK3JZ Replacement of Left Lens with Synthetic Substitute, Percutaneous Approach (ICD-10-PCS; principal; 2017-03-09 10:00)
DX: H25.092 Other age-related incipient cataract, left eye (principal)
CPT/HCPCS: C9447

== ENCOUNTER 2017-03-23 06:50 | Day surgery (SDC) | payer OTHER ==
[2017-03-22 13:05] VITALS: BMI 46.0
[~2017-03-23 06:50] MED LIST changes: +FLURBIPROFEN 0.03% OPHTH SOLN 2.5 ML BOTTLE OP SCH; +VANCOMYCIN 500 MG VIAL (RESTRICTED TO ID ONLY) IVPB ONE
[2017-03-23] MEDS ORDERED: TROPICAMIDE 1% OPHTH SOLN 15 ML BOTTLE ONE (07:08)
[2017-03-23] MEDS ORDERED: CIPROFLOXACIN 0.3% EYE DROPS 5 ML BOTTLE ONE (07:08)
[2017-03-23] MEDS ORDERED: PHENYLEPHRINE 2.5% OPHTH SOLN 15 ML BOTTLE ONE (07:09)
[2017-03-23] MEDS ORDERED: CYCLOPENTOLATE HCL 1% OPHTH SOLN 2 ML BOTTLE ONE (07:09)
[2017-03-23 07:12] VITALS: TEMP 97.9
[2017-03-23] MEDS: CIPROFLOXACIN HCL 0.3% OPHTH 2.5ML BOTTLE OP SCH ×3 (07:25→07:45)
[2017-03-23] MEDS: PHENYLEPHRINE 2.5% OPHTH SOLN 15 ML BOTTLE OP SCH ×3 (07:25→07:45)
[2017-03-23] MEDS: TROPICAMIDE 1% OPHTH SOLN 15 ML BOTTLE OP SCH ×3 (07:25→07:45)
[2017-03-23] MEDS: CYCLOPENTOLATE HCL 1% OPHTH SOLN 2 ML BOTTLE OP SCH ×3 (07:25→07:45)
[2017-03-23] MEDS ORDERED: LIDOCAINE HCL/PF 1% SDV 5ML VIAL ONE (07:38)
[2017-03-23] MEDS ORDERED: LIDOCAINE HCL 2% JELLY (5 ML/TUBE) ONE (07:38)
[2017-03-23] MEDS ORDERED: BSS (NA/CA/MG/K) BALANCED SALT SOLUTION OPHTH SOLN 15 ML BOTTLE ONE (07:38)
[2017-03-23] MEDS ORDERED: POVIDONE-IODINE 5% OPHTHALMIC PREP 30 ML SOLUTION ONE (07:38)
[2017-03-23] MEDS ORDERED: VANCOMYCIN 500 MG VIAL (RESTRICTED TO ID ONLY) ONE (07:38)
[2017-03-23] MEDS ORDERED: PHENYLEPHRINE/KETOROLAC 4 ML VIAL IO ONE ×3 (08:15→09:28)
[2017-03-23] MEDS ORDERED: POVIDONE-IODINE 5% OPHTHALMIC PREP 30 ML SOLUTION OD ONE (08:23)
[2017-03-23] MEDS ORDERED: BSS (NA/CA/MG/K) BALANCED SALT SOLUTION OPHTH SOLN 15 ML BOTTLE IO ONE (08:27)
[2017-03-23] MEDS ORDERED: LIDOCAINE HCL 1% PRESERVATIVE FREE - 30ML VIAL IO ONE ×2 (08:27→09:27)
[2017-03-23] MEDS ORDERED: TRYPAN BLUE 0.5 ML DISP.SYRIN IO ONE ×2 (08:28→09:28)
[2017-03-23] MEDS ORDERED: CHONDROITIN SU A/HYALUR SOD 1 KIT IO ONE ×2 (08:28→09:28)
[2017-03-23] MEDS ORDERED: LIDOCAINE HCL 2% JELLY (5 ML/TUBE) TP ONE (08:56)
[2017-03-23] MEDS ORDERED: MIDAZOLAM HCL 2 MG/2 ML SINGLE DOSE VIAL ONE (09:11)
[2017-03-23] MEDS ORDERED: VANCOMYCIN 500 MG VIAL (RESTRICTED TO ID ONLY) IVPB ONE (09:48)
[2017-03-23] MEDS ORDERED: ACETAMINOPHEN 325 MG TABLET (FP) ONE (10:03)
[2017-03-23] MEDS ORDERED: TRYPAN BLUE 0.5 ML DISP.SYRIN ONE (10:09)
[2017-03-23 13:12] VITALS: BP 130/70; PULSE 70
--- NOTE | 2017-03-24 08:13 | SPEC ---
DATE OF OPERATION: DATE OF DICTATION: 03/23/2017 PREOPERATIVE DIAGNOSIS: Cataract, right eye. POSTOPERATIVE DIAGNOSIS: Cataract, right eye. ASSOCIATED DIAGNOSIS: Intraoperative floppy iris syndrome. OPERATION: Phacoemulsification of right cataract with capsular staining with Trypan blue and posterior chamber intraocular lens implantation, lens used [id number], 19.5-diopter power, Serial No. [id number]. SURGEON: Marjan Acharya MD ANESTHESIA: Topical MAC. COMPLICATIONS: None. PROCEDURE: The patient was brought to the operating room and correctly identified along with the operative site as well as correct intraocular lens bates. The patient was then prepped and draped in the usual sterile fashion, including 5% Betadine solution in the conjunctival sac and an eyelid drape. An eyelid speculum was then placed into the operative eye. The eye was inspected and a poor red reflex was noted. A paracentesis port was created and 0.5 mL of intracameral preservative-free lidocaine 1% was given. Beneath an air bubble, the capsule was then stained with Trypan blue. The Trypan blue was then irrigated from the eye with balanced salt solution (BBS). Viscoelastic was injected to inflate the anterior chamber. A temporal clear corneal would was created. A continuous circular capsulorrhexis was performed. The nucleus was then hydrodissected and hydrodelineated was BSS and removed with phacoemulsification via [id number] approach. The remaining cortical material was irrigated and aspirated from the eye. Viscoelastic was injected in the anterior chamber to inflate the capsular bag. The intraocular lens was then injected into the bag. The Viscoelastic was irrigated and aspirated from the eye. All wounds were tested and found to be watertight. No suture was placed. The intraocular lens was noted to be well centered and covered by the anterior capsular border. Topical Vancomycin was given. The eye was patched and shielded. The patient was discharged from the operating room in stable condition. MARJAN ACHARYA M.D. [id number]
== END 2017-03-23 11:40 | disposition home or self-care (01) ==
LOC: JASU-SURG 06:50
PROVIDERS: ATTEND Ophthalmology
PROC: 08RJ3JZ Replacement of Right Lens with Synthetic Substitute, Percutaneous Approach (ICD-10-PCS; principal; 2017-03-23 09:00)
DX: H26.9 Unspecified cataract (principal); H21.81 Floppy iris syndrome
CPT/HCPCS: C9447

== ENCOUNTER 2017-04-13 16:02 | Inpatient (IN) | payer OTHER ==
[2017-04-13 16:07] VITALS: BMI 46.7
--- NOTE | 2017-04-13 16:53 | PDOC ---
History of Present Illness - General Chief Complaint: Shortness of Breath Stated Complaint: SHORTNESS OF BREATH Time Seen by Provider: 04/13/17 16:29 History Source: Patient Exam Limitations: No Limitations - History of Present Illness Initial Comments: 04/13/17 18:21 CC: 2 day h/o shortness of breath Patient is a 72 y.o. male with a PMH of COPD, CHF, AFib (not on A/C) and Fatty Liver who presents c/o 2 day h/o dyspnea c/w his previous COPD/CHF exacerbations. Patient also notes a 30 minutes h/o chest pain earlier today while at rest. Patient denies any nausea, vomiting, diaphoresis or abdominal pain. Patient states he has a h/o multiple admission for dyspnea (confirmed by EMR). Past History - Past Medical History Allergies/Adverse Reactions: Allergies Allergy/AdvReac Type Severity Reaction Status Date / Time No Known Allergies Allergy Verified 04/13/17 16:05 Home Medications: Ambulatory Orders Albuterol 0.083% Nebulizer Cielo [Ventolin 0.083% Nebulizer Soln -] 1 neb NEB Q4H PRN 08/26/16 Apixaban [Eliquis] 5 mg PO BID 08/26/16 Atorvastatin Ca [Lipitor] 10 mg PO HS 08/26/16 Digoxin [Lanoxin -] 0.125 mg PO DAILY 08/26/16 Gabapentin 100 mg PO BID 08/26/16 Tamsulosin HCl [Flomax] 0.4 mg PO DAILY 08/26/16 Verapamil HCl [Verapamil ER] 240 mg PO BID 08/26/16 Prednisone [Deltasone -] 20 mg PO DAILY tablet 08/31/16 Furosemide [Lasix -] 40 mg PO DAILY 02/21/17 Insulin (Levemir) [Levemir Flexpen -] 0 units SQ BID 03/08/17 Mometasone Furoate [Asmanex 220Mcg -] 1 inh IH BID 03/08/17 Pantoprazole Sodium [Protonix] 40 mg PO DAILY 03/08/17 Sitagliptin Phos/Metformin HCl [Janumet 50-1,000 mg Tablet] 1 each PO DAILY Insulin Aspart [Novolog] 100 unit SQ ASDIR 03/22/17 Insulin (Novolog) [Novolog] 0 units SQ AC #1 vial 04/02/17 Insulin (LOG) Aspart [NovoLOG -] 0 unit SQ DAILY 04/13/17 Anemia: No Asthma: No Cancer: No Cardiac Disorders: Yes (CAD, COARSE A.FIBRILATION, CHRONIC ISCHEMIC HEART DISEASE, CARDIOMYOPATHY) CVA: No COPD: Yes (EMPHYSEMA) CHF: Yes Dementia: No Diabetes: Yes (IDDM) GI Disorders: No Disorders: No HTN: Yes Hypercholesterolemia: Yes Liver Disease: Yes (FATTY LIVER) Seizures: No Thyroid Disease: No - Surgical History Abdominal Surgery: No Appendectomy: No Cardiac Surgery: No Cholecystectomy: No Lung Surgery: No Neurologic Surgery: No Orthopedic Surgery: Yes (bilateral knee surgery 1974 left knee 1979) - Family Disease History Family Disease History: Heart Disease: Father - Immunization History Immunization Up to Date: Yes - Suicide/Smoking/Psychosocial Hx Smoking Status: Yes (QUIT 2011) Smoking History: Former smoker Have you smoked in the past 12 months: No Number of Cigarettes Smoked Daily: 0 If you are a former smoker, when did you quit?: 2010 Cigars Per Day: 0 Information on smoking cessation initiated: No Hx Alcohol Use: No Drug/Substance Use Hx: No Substance Use Type: None Hx Substance Use Treatment: No Review of Systems - Review of Systems Constitutional: No: Chills, Fever HEENTM: No: Blurred Vision, Hearing Loss Respiratory: Yes: Shortness of Breath, SOB with Exertion, SOB at Rest Cardiac (ROS): Yes: Chest Pain ABD/GI: No: Constipated, Diarrhea, Nausea, Vomiting : No: Burning, Dysuria All Other Systems: Reviewed and Negative *Physical Exam - Vital Signs Last Vital Signs Temp Pulse Resp BP Pulse Ox 97.6 F 97 H 26 H 142/90 96 04/13/17 16:05 04/13/17 16:05 04/13/17 16:05 04/13/17 16:05 04/13/17 16:05 - Physical Exam General Appearance: Yes: Nourished, Obese Neck: positive: Trachea midline, Supple Respiratory/Chest: positive: Decreased Breath Sounds Cardiovascular: positive: Regular Rhythm, Regular Rate, S1, S2, Edema Gastrointestinal/Abdominal: positive: Soft, Distended Musculoskeletal: positive: Normal Inspection. negative: CVA Tenderness Neurologic: positive: Fully Oriented, Alert ED Treatment Course - LABORATORY CBC & Chemistry Diagram: 04/14/17 05:10 04/14/17 05:10 Medical Decision Making - Medical Decision Making 04/13/17 16:52 Patient is a 72 y.o. male who presents with a 2 day h/o shortness of breath as well as intermittent chest pain (resolved @ time of presentation to ED). 1. CXR 2. CBC, CMP 04/13/17 18:50 CBC shows leukocytosis (18) however patient is on steroid therapy leukocytosis not clinically concerning. Troponin (-) x1. Dr. Brothers contacted, accepted for admission to OBS/Tele. Repeat Troponin pending @ time of signout to Dr. Muñoz (Resident) and Dr. Ramirez (Attending). *DC/Admit/Observation/Transfer Diagnosis at time of Disposition: Acute on chronic respiratory failure with hypoxemia, Acute chronic obstructive pulmonary disease with respiratory distress, Hypercapnia - Discharge Dispostion Condition at time of disposition: Good Admit: Yes
[2017-04-13] MEDS ORDERED: ALBUTEROL SO4 2.5/IPRATROPIUM 0.5 INH SOL 3 ML VIAL.NEB. NEB ONE ×3 (17:07→17:23)
--- NOTE | 2017-04-13 17:09 | PDOC ---
Attending Attestation - HPI HPI: 04/13/17 18:29 Patient is a 72 year old male with a significant past medical history of CAD, Atrial Fibrillation, chronic ischemic heart disease, cardiomyopathy, CHF, fatty liver, COPD on home oxygen, AODM, and hyperlipidemia who presents to the ED with complaints of SOB that began this morning. Patient reports waking up this morning from sleep and and had trouble breathing. Patient states that he could not catch his breathe while lying flat down. He states he did 1 albuterol nebulizer treatment in the morning with minimal relief. Patient reports experiencing slight chest pain secondary to SOB this morning. Patient states the SOB feel similar to his COPD. Patient reports experiencing bilateral leg edema. Denies Allergies Social history Surgical history PMD: Dr. Brothers. Dr. Lara (Audioprosthologist) - Physicial Exam PE: 04/13/17 18:29 GENERAL: Awake, alert, and fully oriented, in no acute distress HEAD: No signs of trauma EYES: PERRLA, EOMI, sclera anicteric, conjunctiva clear ENT: Auricles normal inspection, hearing grossly normal, nares patent, oropharynx clear without exudates. Moist mucosa NECK: Normal ROM, supple, no lymphadenopathy, JVD, or masses LUNGS: +Diminished breath sounds. clear to auscultation bilaterally. No wheezes, and no crackles HEART: +Tachycardic. Regular rhythm, normal S1 and S2, no murmurs, rubs or gallops ABDOMEN: Soft, nontender, normoactive bowel sounds. No guarding, no rebound. No masses EXTREMITIES: Normal range of motion, no edema. No clubbing or cyanosis. No cords, erythema, or tenderness NEUROLOGICAL: Cranial nerves II through XII grossly intact. Normal speech, normal gait SKIN: Warm, Dry, normal turgor, no rashes or lesions noted. - Medical Decision Making 04/13/17 18:29 Documentation prepared by Matt Pantoja, acting as medical insurance coding specialist for Sohpie Lopez DO. <Matt Pantoja - Last Filed: 04/13/17 18:29> - Resident Resident Name: Francine García - ED Attending Attestation I have performed the following: I have examined & evaluated the patient, The case was reviewed & discussed with the resident, I agree w/resident's findings & plan, Exceptions are as noted - Medical Decision Making 10/04/17 17:09 I, Dr. Sophie Lopez, DO, attest that this document has been prepared under my direction and personally reviewed by me in its entirety. I further attest, that it accurately reflects all work, treatment, procedures and medical decision -making performed by me. 04/13/17 17:12 a/p: 72yo male with increasing SOB this AM. No orthopnea or PND. Pt states used albuterol neb earlier with minimal relief. States mild leg swelling -pt with dimished bs - suspect COPD exacerbation with mild CHF exacerbation -labs -xray -ekg -reassess -nebs at this time -on daily steroids 04/13/17 19:06 Pt will stay under Dr. Brothers service <Sophie Lopez - Last Filed: 04/13/17 19:06> Heart Score/ECG Review - ECG Intrepretation Comment:: 04/13/17 18:26 afib at 99, nl axis, no acute st/t wave findings <Sophie Lopez - Last Filed: 04/13/17 19:06>
[2017-04-13 17:27] LABS: BASOPHIL 0.5 % (0-2.0); EOSINOPHIL 0.1 % (0-4.5); MCH 24.5 pg (25.7-33.7); MCHC 31.2 g/dl (32.0-35.9); MEAN CELL VOLUME 78.5 fl (80-96); MEAN PLT VOLUME 8.8 fl (7.5-11.1); NEUTROPHILS 89.5 % (42.8-82.8); PLATELET COUNT 336 K/MM3 (134-434); RDW 18.3 % (11.9-15.9); WHITE BLOOD COUNT 18.1 K/mm3 (4.0-10.0)
[2017-04-13 17:54] LABS: ALBUMIN 3.4 g/dl (3.4-5.0); ANION GAP 8 (8-16); CALCIUM 9.6 mg/dL (8.5-10.1); CO2 26 mmol/L (21-32); GLUCOSE,RANDOM 294 mg/dL (74-106)
[2017-04-13 17:59] LABS: ALK PHOS 102 U/L (45-117); BILIRUBIN,TOTAL 0.5 mg/dL (0.2-1.0); CPK 198 IU/L (39-308); CREATININE 1.3 mg/dL (0.7-1.3); SGOT/AST 13 U/L (15-37); SGPT/ALT 27 U/L (12-78); TROPONIN I 0.02 ng/ml (0.00-0.05)
[2017-04-13] MEDS ORDERED: methylPREDNISolone NA SUCC 1000 MG/8 ML VIAL IVPB ONE (19:02)
[2017-04-13] MEDS ORDERED: methylPREDNISolone NA SUCC 125 MG/2 ML VIAL IVPB ONE (20:28)
[2017-04-13] MEDS ORDERED: methylPREDNISolone NA SUCC 125 MG/2 ML VIAL ONE (20:30)
[2017-04-13] MEDS ORDERED: ACETAMINOPHEN 325 MG TABLET (FP) PO PRN (22:21)
[2017-04-13] MEDS: methylPREDNISolone NA SUCC 40 MG/1 ML VIAL IVPB SCH (23:30)
[2017-04-14] MEDS ORDERED: INSULIN (NOVOLOG) ASPART 100 UNITS/ML 10ML VIAL ONE (01:15)
[2017-04-14] MEDS: methylPREDNISolone NA SUCC 40 MG/1 ML VIAL IVPB SCH ×3 (02:20→17:59)
[2017-04-14] MEDS: INSULIN SLIDING SCALE (NOVOLOG) 1 VIAL SQ SCH ×4 (06:11→21:48)
[2017-04-14] MEDS: sitaGLIPtin PHOSPHATE 50 MG TABLET PO SCH (06:17)
[2017-04-14] MEDS: metFORMIN HCL 500 MG TABLET (FP) PO SCH ×2 (06:17→17:58)
[2017-04-14 06:21] LABS: MCH 24.7 pg (25.7-33.7); MCHC 31.4 g/dl (32.0-35.9); MEAN CELL VOLUME 78.6 fl (80-96); MEAN PLT VOLUME 8.7 fl (7.5-11.1); PLATELET COUNT 330 K/MM3 (134-434); RDW 18.5 % (11.9-15.9); WHITE BLOOD COUNT 15.6 K/mm3 (4.0-10.0)
[2017-04-14 06:56] LABS: ALBUMIN 3.1 g/dl (3.4-5.0); ANION GAP 9 (8-16); BILIRUBIN,TOTAL 0.4 mg/dL (0.2-1.0); CALCIUM 9.4 mg/dL (8.5-10.1); CHOLESTEROL 134 mg/dL (50-200); CO2 27 mmol/L (21-32); SGOT/AST 10 U/L (15-37); SGPT/ALT 25 U/L (12-78); TOT PROT 6.4 g/dl (6.4-8.2)
[2017-04-14 06:57] LABS: ALK PHOS 88 U/L (45-117); GLUCOSE,RANDOM 299 mg/dL (74-106)
[2017-04-14] MEDS ORDERED: metFORMIN HCL 500 MG TABLET (FP) PO SCH (07:00)
[2017-04-14] MEDS ORDERED: sitaGLIPtin PHOSPHATE 50 MG TABLET PO SCH (07:00)
[2017-04-14 08:21] LABS: CPK 158 IU/L (39-308); TROPONIN I < 0.02 ng/ml (0.00-0.05)
[2017-04-14] MEDS: TAMSULOSIN HCL 0.4 MG CAP.ER.24H (FP) PO SCH (08:50)
[2017-04-14] MEDS: PANTOPRAZOLE 40 MG TABLET (FP) PO SCH (09:30)
[2017-04-14] MEDS: FUROSEMIDE 40 MG TABLET (FP) PO SCH (09:30)
[2017-04-14] MEDS: DIGOXIN 0.125 MG TABLET (FP) PO SCH (09:30)
--- NOTE | 2017-04-14 10:25 | CON.CARD ---
Cardiology Consult (text) - Consultation Consultation Note: CC: SOB hpi: 72 yo male with h/o AFib s/p prior DCCV 12/2015 to SR on AC, HTN, HL, dchf , morbid obesity, LUCY on bipap, severe COPD, here with sob. Frequent admits for copd/chf. Had been feeling well at home until yesterday when had oliveira and chest tightness like his usual copd. No cp, palps, dizzy, loc, pnd, orthopnea. LE edema minimal. After getting steroids here already starting to feel better. Sees dr richardson for cardio. PMH:per hpi past surg hx: Tonsillectomy Social hx: Former smoker fam hx: father with CVA ros: per hpi; no nvd, fever, damico, nasal congestion, muscle pain, rash, gib, hematuria meds: Home Medications Medication Instructions Recorded Albuterol 0.083% Nebulizer Cielo 1 neb NEB Q4H PRN 08/26/16 [Ventolin 0.083% Nebulizer Soln -] Apixaban [Eliquis] 5 mg PO BID 08/26/16 Atorvastatin Ca [Lipitor] 10 mg PO HS 08/26/16 Digoxin [Lanoxin -] 0.125 mg PO DAILY 08/26/16 Gabapentin 100 mg PO BID 08/26/16 Tamsulosin HCl [Flomax] 0.4 mg PO DAILY 08/26/16 Verapamil HCl [Verapamil ER] 240 mg PO BID 08/26/16 Prednisone [Deltasone -] 20 mg PO DAILY tablet 08/31/16 Furosemide [Lasix -] 40 mg PO DAILY 02/21/17 Insulin (Levemir) [Levemir Flexpen 0 units SQ BID 03/08/17 -] Mometasone Furoate [Asmanex 220Mcg 1 inh IH BID 03/08/17 -] Pantoprazole Sodium [Protonix] 40 mg PO DAILY 03/08/17 Sitagliptin Phos/Metformin HCl 1 each PO DAILY 03/08/17 [Janumet 50-1,000 mg Tablet] Insulin Aspart [Novolog] 100 unit SQ ASDIR 03/22/17 Insulin (Novolog) [Novolog] 0 units SQ AC #1 vial 04/02/17 Insulin (LOG) Aspart [NovoLOG -] 0 unit SQ DAILY 04/13/17 pe: Vital Signs Period Temp Pulse Resp BP Sys/Park Pulse Ox Last 24 Hr 97.6 F-98.4 F 97-110 19-26 142-142/86-90 96-100 NAD, calm JVD difficult to assess due to size, neck supple dec air movment bl, nl effort Irregularly, irregular nl s1, s2 no m/r/g + bs soft obese nt nd ext with trace edema. no cyanosis or clubbing + dp/pt no carotid bruits no jaundice, diaphoresis. aaox3 Laboratory Last Values WBC 15.6 K/mm3 (4.0-10.0) H 04/14/17 05:10 RBC 4.66 M/mm3 (4.00-5.60) 04/14/17 05:10 Hgb 11.5 GM/dL (11.7-16.9) L 04/14/17 05:10 Hct 36.6 % (35.4-49) 04/14/17 05:10 MCV 78.6 fl (80-96) L 04/14/17 05:10 MCH 24.7 pg (25.7-33.7) L 04/14/17 05:10 MCHC 31.4 g/dl (32.0-35.9) L 04/14/17 05:10 RDW 18.5 % (11.9-15.9) H 04/14/17 05:10 Plt Count 330 K/MM3 (134-434) 04/14/17 05:10 MPV 8.7 fl (7.5-11.1) 04/14/17 05:10 Neutrophils % 89.5 % (42.8-82.8) H 04/13/17 17:17 Lymphocytes % 5.1 % (8-40) L D 04/13/17 17:17 Monocytes % 4.8 % (3.8-10.2) 04/13/17 17:17 Eosinophils % 0.1 % (0-4.5) 04/13/17 17:17 Basophils % 0.5 % (0-2.0) 04/13/17 17:17 Sodium 138 mmol/L (136-145) 04/14/17 05:10 Potassium 4.7 mmol/L (3.5-5.1) 04/14/17 05:10 Chloride 102 mmol/L (98-107) 04/14/17 05:10 Carbon Dioxide 27 mmol/L (21-32) 04/14/17 05:10 Anion Gap 9 (8-16) 04/14/17 05:10 BUN 21 mg/dL (7-18) H 04/14/17 05:10 Creatinine 1.0 mg/dL (0.7-1.3) D 04/14/17 05:10 Creat Clearance w eGFR > 60 (>60) 04/14/17 05:10 Random Glucose 299 mg/dL (74-106) H 04/14/17 05:10 Hemoglobin A1c % 10.2 % (4.8-6.0) H D 04/14/17 05:10 Calcium 9.4 mg/dL (8.5-10.1) 04/14/17 05:10 Total Bilirubin 0.4 mg/dL (0.2-1.0) 04/14/17 05:10 AST 10 U/L (15-37) L D 04/14/17 05:10 ALT 25 U/L (12-78) 04/14/17 05:10 Alkaline Phosphatase 88 U/L (45-117) 04/14/17 05:10 Creatine Kinase 158 IU/L (39-308) 04/14/17 05:10 Creatine Kinase Index 1.3 % (0.0-5.0) 04/14/17 05:10 CK-MB (CK-2) 2.156 ng/mL (0.5-3.6) 04/14/17 05:10 Troponin I < 0.02 ng/ml (0.00-0.05) 04/14/17 05:10 B-Natriuretic Peptide 307.27 pg/ml (5-125) H 04/13/17 18:20 Total Protein 6.4 g/dl (6.4-8.2) 04/14/17 05:10 Albumin 3.1 g/dl (3.4-5.0) L 04/14/17 05:10 Triglycerides 77 mg/dL (35-160) D 04/14/17 05:10 Cholesterol 134 mg/dL (50-200) 04/14/17 05:10 Total LDL Cholesterol 62 mg/dL (5-100) D 04/14/17 05:10 HDL Cholesterol 57 mg/dL (40-60) D 04/14/17 05:10 ecg 04/13/17: afib, rate controlled, nl qtc, no ischemic changes cxr: clear lungs tele: afib, rate controlled echo 07/2016: Nl lv/rv. 1+ AR Echo 08/2015: tds, nl lv/rv, no sig valve path mibi 12/2012: small posterior ischemia vs artifact, nl lvef, no tid 10/2015 CT scan negative for PE a/p: 72 yo male with h/o AFib s/p prior DCCV 12/2015 to SR on AC, HTN, HL, dchf , PVCs with palpitations, morbid obesity, LUCY on bipap, severe COPD, here with sob. sob, copd: - has tendency towards volume retention felicia when receives steroids for copd exacerbation - vol status appears stable, copd likely cause of current sob - no signs pulm edema, no signs acs - copd/lucy tx per pulm paroxysmal AF/flutter -cont eliquis for AC -new dx 2015--req'd amio for HR control then (now off due to severe lung dz), s/ p successful DCCV 12/24, then reverted to afib -rate has been adequately controlled with the combo of calan and dig -avoiding BB given severe bronchospasm/copd; would like to avoid long-term amio for same reason hld: -continue home statin htn: -stable on current meds possible cad: -pt had borderline positive mibi in 2012 vs soft tissue attenuation artifact -never had angina sx's -no signs acs here -continue medical management with statin, AC without ASA chronic diastolic chf: -vol appears stable -cont home lasix 40 po qd -monitor vol status with iv steroids, may need prn increase lasix
[2017-04-14] MEDS: APIXABAN 5 MG TABLET PO SCH ×2 (11:38→21:44)
--- NOTE | 2017-04-14 11:42 | CONSULT ---
Consultation: PULMONARY CONSULT CONSULT REQUEST: We have been asked to medically evaluate this patient for ( SHORTNESS OF BREATH) HISTORY OF PRESENT ILLNESS: Mr Frias is a 72yo M with PMHx of End stage COPD (on 3.5-4L O2 at home), dCHF ( on lasix and digoxin), Morbid Obesity who presented with 1 day of gradual onset SOB. Pt states that Tuesday patient noted that the flow on his nasal cannula was markedly diminished. He tried changing the cannisters with no success. Yesterday , the patient started to experience gradual onset SOB w/ exertion. It was at that time he noted his oxygen extension had a hole in it. He taped over the hole , which resulted in full O2 NC flow, and mod relief of his SOB. Later that day the patient went outside the house with his daughter (without his O2) and experienced the same SOB on exertion. After a couple of hours he told his daughter to drop him off at the hospital. He denies CP, cough, wheezing, fevers , chills, prior illness, sick contacts. Though he purposely misses Lasix doses when he leaves the house, he denies orthopnea, increase in LE swelling. In the ER he was given duoneb x2 and Solumedrol 125mg x1 and O2 NC with improvement. Labs are notable for chronically elevated WBC. Currently the patient feels almost 100% improved since being on his normal oxygen requirement. PMH: End stage COPD, AFib (s/p prior DC Cardioversion in 2016, on AC), Morbid Obesity, HTN, HLD, Diastolic CHF, LUCY on bipap REVIEW OF SYSTEMS: CONSTITUTIONAL: Absent: fever, chills, diaphoresis, generalized weakness, malaise, loss of appetite, weight change HEENT: Absent: rhinorrhea, nasal congestion, throat pain, throat swelling, difficulty swallowing, mouth swelling, ear pain, eye pain, visual changes CARDIOVASCULAR: Absent: chest pain, syncope, palpitations, irregular heart rate, lightheadedness , peripheral edema RESPIRATORY: Absent: cough, shortness of breath, dyspnea with exertion, orthopnea, wheezing, stridor, hemoptysis GASTROINTESTINAL: Absent: abdominal pain, abdominal distension, nausea, vomiting, diarrhea, constipation, melena, hematochezia GENITOURINARY: Absent: dysuria, frequency, urgency, hesitancy, hematuria, flank pain, genital pain MUSCULOSKELETAL: Absent: myalgia, arthralgia, joint swelling, back pain, neck pain SKIN: Absent: rash, itching, pallor HEMATOLOGIC/IMMUNOLOGIC: Absent: easy bleeding, easy bruising, lymphadenopathy, frequent infections ENDOCRINE: Absent: unexplained weight gain, unexplained weight loss, heat intolerance, cold intolerance NEUROLOGIC: Absent: headache, focal weakness or paresthesias, dizziness, unsteady gait, seizure, mental status changes, bladder or bowel incontinence PSYCHIATRIC: Absent: anxiety, depression, suicidal or homicidal ideation, hallucinations. PHYSICAL EXAMINATION Vital Signs Temperature 97.6 F 04/14/17 09:33 Pulse Rate 107 H 04/14/17 10:10 Respiratory Rate 20 04/14/17 09:33 Blood Pressure 126/82 04/14/17 09:33 O2 Sat by Pulse Oximetry (%) 98 04/14/17 10:10 GEN: AAOx3, NAD, Looks calm sitting in bed, walking comfortably HEENT: PERRLA, EOMi, no JVD CV: S1, S2, Irregularly irregular rhythm LUNG: CTABL ABD: Obese, NT, normoactive BS MSK: +1 pitting edema, no erythema NEURO: CN 2-12 intact, MSK 5/5, no sensation deficits Laboratory Results - last 24 hr 04/14/17 04/14/17 04/14/17 05:10 05:10 05:10 WBC 15.6 H RBC 4.66 Hgb 11.5 L Hct 36.6 MCV 78.6 L MCH 24.7 L MCHC 31.4 L RDW 18.5 H Plt Count 330 MPV 8.7 Sodium 138 Potassium 4.7 Chloride 102 Carbon Dioxide 27 Anion Gap 9 BUN 21 H Creatinine 1.0 D Creat Clearance w eGFR > 60 Random Glucose 299 H Hemoglobin A1c % 10.2 H D Calcium 9.4 Total Bilirubin 0.4 AST 10 L D ALT 25 Alkaline Phosphatase 88 Creatine Kinase 158 Creatine Kinase Index 1.3 CK-MB (CK-2) 2.156 Troponin I < 0.02 Total Protein 6.4 Albumin 3.1 L Triglycerides 77 D Cholesterol 134 Total LDL Cholesterol 62 D HDL Cholesterol 57 D Active Medications Generic Name Dose Route Start Last Admin Trade Name Freq PRN Reason Stop Dose Admin Acetaminophen 650 mg 04/13/17 22:21 Tylenol - PO Q6H PRN FEVER OR PAIN Albuterol/Ipratropium 1 amp 04/13/17 22:21 Duoneb - NEB Q6H PRN SHORTNESS OF BREATH Apixaban 5 mg 04/14/17 10:00 Eliquis - PO BID ARVIND Atorvastatin Calcium 10 mg 04/14/17 22:00 Lipitor - PO HS ARVIND Digoxin 0.125 mg 04/14/17 10:00 04/14/17 09:30 Lanoxin - PO 0.125 mg DAILY ARVIND Administration Furosemide 40 mg 04/14/17 10:00 04/14/17 09:30 Lasix - PO 40 mg DAILY ARVIND Administration Insulin Aspart 1 vial 04/14/17 07:00 04/14/17 06:11 Novolog Vial Sliding Scale - SQ 8 units ACHS ARVIND Administration Protocol Insulin Detemir 20 units 04/14/17 22:00 Levemir Vial SQ HS ARVIND Metformin HCl 500 mg 04/14/17 07:00 04/14/17 06:17 Glucophage - PO 500 mg BID@0700,1630 ARVIND Administration Methylprednisolone Sodium Succinate 40 mg 04/13/17 22:30 04/14/17 09:31 Solu-Medrol - IVPB 40 mg Q8H-IV ARVIND Administration Mometasone Furoate 2 puff 04/14/17 22:00 Asmanex 220mcg - IH HS ARVIND Pantoprazole Sodium 40 mg 04/14/17 10:00 04/14/17 09:30 Protonix - PO 40 mg DAILY ARVIND Administration Sitagliptin Phosphate 50 mg 04/14/17 07:00 04/14/17 06:17 Januvia - PO 50 mg DAILY@0700 ARVIND Administration Tamsulosin HCl 0.4 mg 04/14/17 08:30 04/14/17 08:50 Flomax - PO 0.4 mg DAILY@0830 ARVIND Administration Verapamil HCl 240 mg 04/14/17 10:00 Calan Sr - PO DAILY [facility] ASSESSMENT/PLAN: Mr Frias is a 72yo M with PMHx of End stage COPD (on 3.5-4L O2 at home), dCHF ( on lasix and digoxin), Morbid Obesity who presented with 1 day of gradual onset SOB. # Mild COPD Exacerbation - likely secondary to improper home O2 delivery + noncompliance - Unlikely PNA, afebrile, CXR clear - Can continue IV steroids, can change to PO and taper tmrw if pt continues to improve - Can continue bronchodilators PRN - Continue O2 NC and BiPAP - Possible d/c in AM if improved # Diastolic CHF - not in exacerbation - Continue home diuretics - Monitor Volume Status - Cardio on board # Urinary Frequency - - Pt has past hx of BPH, on Flomax, but has increased freq yesterday - Obtain UA to r/o any underlying pathology # Afib - Continue anticoagulation Discussed w/ Dr Lozano. We will continue to follow the patient. Thank you. Opal Myers MD - PGY1 Visit type - Emergency Visit Emergency Visit: No - New Patient This patient is new to me today: No - Critical Care Critical Care patient: No
--- NOTE | 2017-04-14 11:48 | HP ---
Admitting History and Physical - Primary Care Physician PCP: [facility] - Admission Chief Complaint: RESP DISTRESS ACUTE ON CHRONIC COPD/ASTHMA EXACERBATION History Source: Patient - Past Medical History Cardiovascular: Yes: AFIB, HTN, Hyperlipdemia Pulmonary: Yes: COPD, O2 Dependent, Sleep Apnea Gastrointestinal: Yes: GERD Renal/: Yes: Renal Inusuff Endocrine: Yes: Other (MORBIDLY OBESE) - Past Surgical History Past Surgical History: Yes: Tonsillectomy - Smoking History Smoking history: Former smoker Have you smoked in the past 12 months: No Aproximately how many cigarettes per day: 0 If you are a former smoker, when did you quit?: 2010 - Alcohol/Substance Use Hx Alcohol Use: No - Social History History of Recent Travel: No Home Medications - Allergies Allergies/Adverse Reactions: Allergies Allergy/AdvReac Type Severity Reaction Status Date / Time No Known Allergies Allergy Verified 04/13/17 16:05 - Home Medications Home Medications: Ambulatory Orders Albuterol 0.083% Nebulizer Cielo [Ventolin 0.083% Nebulizer Soln -] 1 neb NEB Q4H PRN 08/26/16 Apixaban [Eliquis] 5 mg PO BID 08/26/16 Atorvastatin Ca [Lipitor] 10 mg PO HS 08/26/16 Digoxin [Lanoxin -] 0.125 mg PO DAILY 08/26/16 Gabapentin 100 mg PO BID 08/26/16 Tamsulosin HCl [Flomax] 0.4 mg PO DAILY 08/26/16 Verapamil HCl [Verapamil ER] 240 mg PO BID 08/26/16 Prednisone [Deltasone -] 20 mg PO DAILY tablet 08/31/16 Furosemide [Lasix -] 40 mg PO DAILY 02/21/17 Insulin (Levemir) [Levemir Flexpen -] 0 units SQ BID 03/08/17 Mometasone Furoate [Asmanex 220Mcg -] 1 inh IH BID 03/08/17 Pantoprazole Sodium [Protonix] 40 mg PO DAILY 03/08/17 Sitagliptin Phos/Metformin HCl [Janumet 50-1,000 mg Tablet] 1 each PO DAILY Insulin Aspart [Novolog] 100 unit SQ ASDIR 03/22/17 Insulin (Novolog) [Novolog] 0 units SQ AC #1 vial 04/02/17 Insulin (LOG) Aspart [NovoLOG -] 0 unit SQ DAILY 04/13/17 Review of Systems - Review of Systems Constitutional: reports: Loss of Appetite, Malaise Eyes: reports: No Symptoms HENT: reports: No Symptoms Neck: reports: No Symptoms Cardiovascular: reports: No Symptoms Respiratory: reports: Cough, SOB Gastrointestinal: reports: No Symptoms Genitourinary: reports: No Symptoms Musculoskeletal: reports: No Symptoms Integumentary: reports: No Symptoms Neurological: reports: No Symptoms Endocrine: reports: No Symptoms Hematology/Lymphatic: reports: No Symptoms Psychiatric: reports: No Symptoms Physical Examination Vital Signs: Vital Signs Temperature 97.6 F 04/14/17 09:33 Pulse Rate 107 H 04/14/17 10:10 Respiratory Rate 20 04/14/17 09:33 Blood Pressure 126/82 04/14/17 09:33 O2 Sat by Pulse Oximetry (%) 98 04/14/17 10:10 Constitutional: Yes: Moderate Distress Eyes: Yes: WNL HENT: Yes: WNL Neck: Yes: WNL Cardiovascular: Yes: Pulse Irregular Respiratory: Yes: Cough, On BiPap, On Nasal O2, Poor Air Entry Gastrointestinal: Yes: WNL Renal/: Yes: WNL Musculoskeletal: Yes: WNL Extremities: Yes: WNL Edema: No Peripheral Pulses WNL: Yes Integumentary: Yes: WNL Wound/Incision: Yes: Clean/Dry Neurological: Yes: WNL ...Motor Strength: WNL Psychiatric: Yes: WNL Labs: CBC, BMP 04/14/17 05:10 04/14/17 05:10 Imaging - Results Chest X-ray: Report Reviewed Problem List - Problems (1) Acute chronic obstructive pulmonary disease with respiratory distress Code(s): J44.9 - CHRONIC OBSTRUCTIVE PULMONARY DISEASE, UNSPECIFIED R06.03 - ACUTE RESPIRATORY DISTRESS (2) Acute on chronic respiratory failure with hypoxemia Code(s): J96.21 - ACUTE AND CHRONIC RESPIRATORY FAILURE WITH HYPOXIA (3) Asthma Code(s): J45.909 - UNSPECIFIED ASTHMA, UNCOMPLICATED Qualifiers: Asthma severity: moderate Asthma complication type: with acute exacerbation (4) COPD exacerbation Code(s): J44.1 - CHRONIC OBSTRUCTIVE PULMONARY DISEASE W (ACUTE) EXACERBATION (5) Controlled diabetes mellitus with diabetic peripheral angiopathy without gangrene, without long-term current use of insulin Code(s): E11.51 - TYPE 2 DIABETES W DIABETIC PERIPHERAL ANGIOPATH W/O GANGRENE (6) Hypercapnia Code(s): R06.89 - OTHER ABNORMALITIES OF BREATHING (7) Atrial fibrillation Code(s): I48.91 - UNSPECIFIED ATRIAL FIBRILLATION Qualifiers: Atrial fibrillation type: unspecified Qualified Code(s): I48.91 - Unspecified atrial fibrillation; I48.91 - Unspecified atrial fibrillation; I48.91 - Unspecified atrial fibrillation; I48.91 - Unspecified atrial fibrillation Assessment/Plan IV STEROIDS PULMONARY/CARDIOLOGY EVAL RESP SUPPROT AC OOB TO CHAIR CHRISTINA SSI
[2017-04-14] MEDS: VERAPAMIL HCL 240 MG E.R. TABLET (FP) PO SCH (13:23)
--- NOTE | 2017-04-14 14:16 | EKG ---
Test Reason : Blood Pressure : / mmHG Vent. Rate : 099 BPM Atrial Rate : 375 BPM P-R Int : 000 ms QRS Dur : 092 ms QT Int : 318 ms P-R-T Axes : 000 049 022 degrees QTc Int : 408 ms ATRIAL FIBRILLATION ABNORMAL ECG WHEN COMPARED WITH ECG OF 21-FEB-2017 14:20, NONSPECIFIC T WAVE ABNORMALITY, IMPROVED IN INFERIOR LEADS Confirmed by MCKAY MEJÍA MD ([id number]) on 04/14/2017 2:16:19 PM Referred By: Confirmed By:MCKAY MEJÍA MD
--- NOTE | 2017-04-14 14:19 | PN ---
Teaching Attending Note Name of Resident: Opal Myers ATTENDING PHYSICIAN STATEMENT I saw and evaluated the patient. I reviewed the resident's note and discussed the case with the resident. I agree with the resident's findings and plan as documented. ASSESSMENT AND PLAN: Acute COPD Exacerbation Chronic Hypoxic Respiratory Failure LV Diastolic Dysfunction Paroxysmal Atrial Fibrillation Obstructive Sleep Apnea HTN Hyperlipidemia - symptoms appear to be consistent with prior COPD exacerbations but mild - can likely change steroids to PO in AM - inhaled bronchodilators - glucose control while on systemic steroids - CPAP at night 14 cm H2O - O2 to keep SpO2 >90% - rate controlled - continue anticoagulation Thank you for this consult Billy Lozano MD
--- NOTE | 2017-04-14 16:36 | CONSULT ---
Consult Consult Specialty:: Nephrology Reason for Consultation:: azotemia - History of Present Illness Chief Complaint: shortness of breath History of Present Illness: Pt is a 72 year old male with pmhx of CAD, a-fib, CAD, CHF, COPD, chol and obesity who presents to the ER complaining of increased shortness of breath. He is on home oxygen and uses home bipap. He complains of lower extremity edema. I was called to evaluate him for azotemia. He is known to me from prior admissions. He denies chest more. He denies dysuria or hematuria. He is on 40 mg of furosemide at home. He denies nsaid use. - History Source History Provided By: Patient, Medical Record - Past Medical History Cardio/Vascular: Yes: AFIB, HTN, Hyperlipdemia Pulmonary: Yes: COPD, O2 Dependent, Sleep Apnea Gastrointestinal: Yes: GERD Renal/: Yes: Renal Inusuff Endocrine: Yes: Other (MORBIDLY OBESE) - Past Surgical History Past Surgical History: Yes: Tonsillectomy - Alcohol/Substance Use Hx Alcohol Use: No - Smoking History Smoking history: Former smoker Have you smoked in the past 12 months: No Aproximately how many cigarettes per day: 0 If you are a former smoker, when did you quit?: 2010 - Social History Usual Living Arrangement: Other History of Recent Travel: No Home Medications - Allergies Allergies/Adverse Reactions: Allergies Allergy/AdvReac Type Severity Reaction Status Date / Time No Known Allergies Allergy Verified 04/13/17 16:05 - Home Medications Home Medications: Ambulatory Orders Albuterol 0.083% Nebulizer Cielo [Ventolin 0.083% Nebulizer Soln -] 1 neb NEB Q4H PRN 08/26/16 Apixaban [Eliquis] 5 mg PO BID 08/26/16 Atorvastatin Ca [Lipitor] 10 mg PO HS 08/26/16 Digoxin [Lanoxin -] 0.125 mg PO DAILY 08/26/16 Gabapentin 100 mg PO BID 08/26/16 Tamsulosin HCl [Flomax] 0.4 mg PO DAILY 08/26/16 Verapamil HCl [Verapamil ER] 240 mg PO BID 08/26/16 Prednisone [Deltasone -] 20 mg PO DAILY tablet 08/31/16 Furosemide [Lasix -] 40 mg PO DAILY 02/21/17 Insulin (Levemir) [Levemir Flexpen -] 0 units SQ BID 03/08/17 Mometasone Furoate [Asmanex 220Mcg -] 1 inh IH BID 03/08/17 Pantoprazole Sodium [Protonix] 40 mg PO DAILY 03/08/17 Sitagliptin Phos/Metformin HCl [Janumet 50-1,000 mg Tablet] 1 each PO DAILY Insulin Aspart [Novolog] 100 unit SQ ASDIR 03/22/17 Insulin (Novolog) [Novolog] 0 units SQ AC #1 vial 04/02/17 Insulin (LOG) Aspart [NovoLOG -] 0 unit SQ DAILY 04/13/17 Family Disease History - Family Disease History Family History: Denies Review of Systems - Review of Systems Constitutional: reports: No Symptoms Eyes: reports: No Symptoms HENT: reports: No Symptoms Neck: reports: No Symptoms Cardiovascular: reports: Edema, Shortness of Breath Respiratory: reports: SOB on Exertion Genitourinary: reports: No Symptoms Musculoskeletal: reports: No Symptoms Neurological: reports: No Symptoms Endocrine: reports: No Symptoms Psychiatric: reports: No Symptoms Physical Exam Vital Signs: Vital Signs Temperature 98.0 F 04/14/17 15:25 Pulse Rate 94 H 04/14/17 15:25 Respiratory Rate 20 04/14/17 15:25 Blood Pressure 128/82 04/14/17 15:25 O2 Sat by Pulse Oximetry (%) 97 04/14/17 12:08 Constitutional: Yes: Calm Eyes: Yes: Conjunctiva Clear HENT: Yes: Atraumatic Cardiovascular: Yes: S1, S2 Respiratory: Yes: On BiPap Gastrointestinal: Yes: Soft, Abdomen, Obese Renal/: Yes: WNL Musculoskeletal: Yes: WNL Edema: Yes Edema: LLE: 1+, RLE: 1+ Neurological: Yes: Oriented Psychiatric: Yes: Oriented Labs: CBC, BMP 04/14/17 05:10 04/14/17 05:10 Laboratory Tests 04/13/17 04/13/17 04/14/17 17:17 17:17 05:10 WBC 18.1 H 15.6 H Hgb 11.7 11.5 L Plt Count 336 330 Sodium 135 L Potassium 4.9 Chloride 101 Carbon Dioxide 26 Anion Gap BUN 20 H D Creatinine 1.3 D Random Glucose 294 H D Hemoglobin A1c % 04/14/17 04/14/17 05:10 05:10 WBC Hgb Plt Count Sodium 138 Potassium 4.7 Chloride 102 Carbon Dioxide 27 Anion Gap 9 BUN 21 H Creatinine 1.0 D Random Glucose 299 H Hemoglobin A1c % 10.2 H D Imaging - Results Chest X-ray: Report Reviewed Problem List - Problems (1) Asthma Code(s): J45.909 - UNSPECIFIED ASTHMA, UNCOMPLICATED Qualifiers: Asthma severity: moderate Asthma complication type: with acute exacerbation (2) COPD exacerbation Code(s): J44.1 - CHRONIC OBSTRUCTIVE PULMONARY DISEASE W (ACUTE) EXACERBATION (3) Diabetes mellitus Code(s): E11.9 - TYPE 2 DIABETES MELLITUS WITHOUT COMPLICATIONS Qualifiers: Diabetes mellitus type: type 2 Diabetes mellitus complication status: with other specified complication (4) Edema Code(s): R60.9 - EDEMA, UNSPECIFIED (5) HTN (hypertension) Code(s): I10 - ESSENTIAL (PRIMARY) HYPERTENSION Assessment/Plan Current Medications Generic Name Dose Route Start Last Admin Trade Name Freq PRN Reason Stop Dose Admin Acetaminophen 650 mg 04/13/17 22:21 Tylenol - PO Q6H PRN FEVER OR PAIN Albuterol/Ipratropium 1 amp 04/13/17 22:21 Duoneb - NEB Q6H PRN SHORTNESS OF BREATH Apixaban 5 mg 04/14/17 10:00 04/14/17 11:38 Eliquis - PO 5 mg BID ARVIND Administration Atorvastatin Calcium 10 mg 04/14/17 22:00 Lipitor - PO HS ARVIND Digoxin 0.125 mg 04/14/17 10:00 04/14/17 09:30 Lanoxin - PO 0.125 mg DAILY ARVIND Administration Furosemide 40 mg 04/14/17 10:00 04/14/17 09:30 Lasix - PO 40 mg DAILY ARVIND Administration Insulin Aspart 1 vial 04/14/17 07:00 04/14/17 11:38 Novolog Vial Sliding Scale - SQ 6 units ACHS ARVIND Administration Protocol Insulin Detemir 20 units 04/14/17 22:00 Levemir Vial SQ HS ARVIND Metformin HCl 500 mg 04/14/17 07:00 04/14/17 06:17 Glucophage - PO 500 mg BID@0700,1630 ARVIND Administration Methylprednisolone Sodium Succinate 40 mg 04/13/17 22:30 04/14/17 09:31 Solu-Medrol - IVPB 40 mg Q8H-IV ARVIND Administration Mometasone Furoate 2 puff 04/14/17 22:00 Asmanex 220mcg - IH HS ARVIND Pantoprazole Sodium 40 mg 04/14/17 10:00 04/14/17 09:30 Protonix - PO 40 mg DAILY ARVIND Administration Sitagliptin Phosphate 50 mg 04/14/17 07:00 04/14/17 06:17 Januvia - PO 50 mg DAILY@0700 ARVIND Administration Tamsulosin HCl 0.4 mg 04/14/17 08:30 04/14/17 08:50 Flomax - PO 0.4 mg DAILY@0830 ARVIND Administration Verapamil HCl 240 mg 04/14/17 10:00 04/14/17 13:23 Calan Sr - PO 240 mg DAILY ARVIND Administration Impression 1. azotemia 2. CHF 3. obstructive sleep apnea 4. obesity 5. DM 6. HTN 7. hyperlipidemia 8. resp failure requiring bipap Plan - cont lasix - cont with bipap - monitor creatinine closely while on metformin - repeat labs in am - will follow - check [facility] Dr Aguilar
[2017-04-14] MEDS: ATORVASTATIN CA 10 MG TABLET (FP) PO SCH (21:45)
[2017-04-14] MEDS: INSULIN DETEMIR 100 UNITS/ML MDV SQ SCH (21:48)
[2017-04-14] MEDS: ALBUTEROL SO4 2.5/IPRATROPIUM 0.5 INH SOL 3 ML VIAL.NEB. NEB PRN (22:17)
--- NOTE | 2017-04-14 23:13 | CONSULT ---
Consult Consult Specialty:: endocrine Referred by:: dr.rabadi guillory Reason for Consultation:: diabetes mellitus - History of Present Illness Chief Complaint: difficulty breathing /high sugars History of Present Illness: 72 y.o. male with a PMH of COPD, CHF, AFib (not on A/C) and Fatty Liver who presents c/o 2 day h/o dyspnea c/w his previous COPD/CHF exacerbations. Patient also notes a 30 minutes h/o chest pain earlier today while at rest. Patient denies any nausea, vomiting, diaphoresis or abdominal pain. Patient states he has a h/o multiple admission for dyspnea has higher sugar when on steroids,controls sugars at home with twice a day levemir, denies hypoglycemia, no nausea or vomiting - Past Medical History Cardio/Vascular: Yes: AFIB, HTN, Hyperlipdemia Pulmonary: Yes: COPD, O2 Dependent, Sleep Apnea Gastrointestinal: Yes: GERD Renal/: Yes: Renal Inusuff Endocrine: Yes: Other (MORBIDLY OBESE) - Past Surgical History Past Surgical History: Yes: Tonsillectomy - Alcohol/Substance Use Hx Alcohol Use: No - Smoking History Smoking history: Former smoker Have you smoked in the past 12 months: No Aproximately how many cigarettes per day: 0 If you are a former smoker, when did you quit?: 2010 - Social History Usual Living Arrangement: Other History of Recent Travel: No Home Medications - Allergies Allergies/Adverse Reactions: Allergies Allergy/AdvReac Type Severity Reaction Status Date / Time No Known Allergies Allergy Verified 04/13/17 16:05 - Home Medications Home Medications: Ambulatory Orders Albuterol 0.083% Nebulizer Cielo [Ventolin 0.083% Nebulizer Soln -] 1 neb NEB Q4H PRN 08/26/16 Apixaban [Eliquis] 5 mg PO BID 08/26/16 Atorvastatin Ca [Lipitor] 10 mg PO HS 08/26/16 Digoxin [Lanoxin -] 0.125 mg PO DAILY 08/26/16 Gabapentin 100 mg PO BID 08/26/16 Tamsulosin HCl [Flomax] 0.4 mg PO DAILY 08/26/16 Verapamil HCl [Verapamil ER] 240 mg PO BID 08/26/16 Prednisone [Deltasone -] 20 mg PO DAILY tablet 08/31/16 Furosemide [Lasix -] 40 mg PO DAILY 02/21/17 Insulin (Levemir) [Levemir Flexpen -] 0 units SQ BID 03/08/17 Mometasone Furoate [Asmanex 220Mcg -] 1 inh IH BID 03/08/17 Pantoprazole Sodium [Protonix] 40 mg PO DAILY 03/08/17 Sitagliptin Phos/Metformin HCl [Janumet 50-1,000 mg Tablet] 1 each PO DAILY Insulin Aspart [Novolog] 100 unit SQ ASDIR 03/22/17 Insulin (Novolog) [Novolog] 0 units SQ AC #1 vial 04/02/17 Insulin (LOG) Aspart [NovoLOG -] 0 unit SQ DAILY 04/13/17 Review of Systems - Review of Systems Constitutional: reports: Lethargy, Weakness Eyes: reports: Blurred Vision HENT: reports: No Symptoms Neck: reports: No Symptoms Cardiovascular: reports: Palpitations, Shortness of Breath Respiratory: reports: Cough, Exercise Intolerance Gastrointestinal: reports: Bloating Genitourinary: reports: No Symptoms Integumentary: reports: No Symptoms Neurological: reports: Weakness Endocrine: reports: Unexplained Weight Gain Physical Exam Vital Signs: Vital Signs Temperature 99.1 F 04/14/17 17:00 Pulse Rate 86 04/14/17 17:00 Respiratory Rate 20 04/14/17 21:00 Blood Pressure 121/85 04/14/17 17:00 O2 Sat by Pulse Oximetry (%) 98 04/14/17 21:00 Constitutional: Yes: Anxious Eyes: Yes: EOM Intact HENT: Yes: Normocephalic Neck: Yes: Trachea Midline Cardiovascular: Yes: Tachycardia, Murmur Respiratory: Yes: Rhonchi, SOB, Tachypnea Gastrointestinal: Yes: Abdomen, Obese Breast(s): Yes: WNL Musculoskeletal: Yes: Muscle Weakness Extremities: Yes: WNL Neurological: Yes: Alert, Oriented Labs: CBC, BMP 04/14/17 05:10 04/14/17 05:10 Problem List - Problems (1) Acute chronic obstructive pulmonary disease with respiratory distress Code(s): J44.9 - CHRONIC OBSTRUCTIVE PULMONARY DISEASE, UNSPECIFIED R06.03 - ACUTE RESPIRATORY DISTRESS (2) COPD exacerbation Code(s): J44.1 - CHRONIC OBSTRUCTIVE PULMONARY DISEASE W (ACUTE) EXACERBATION (3) Controlled diabetes mellitus with diabetic peripheral angiopathy without gangrene, without long-term current use of insulin Code(s): E11.51 - TYPE 2 DIABETES W DIABETIC PERIPHERAL ANGIOPATH W/O GANGRENE (4) Diabetes mellitus Code(s): E11.9 - TYPE 2 DIABETES MELLITUS WITHOUT COMPLICATIONS Qualifiers: Diabetes mellitus complication status: with other specified complication (5) Edema Code(s): R60.9 - EDEMA, UNSPECIFIED Assessment/Plan Current Active Problems Acute chronic obstructive pulmonary disease with respiratory distress (Acute) Acute on chronic respiratory failure with hypoxemia (Acute) Asthma (Acute) COPD exacerbation (Acute) Controlled diabetes mellitus with diabetic peripheral angiopathy without gangrene, without long-term current use of insulin (Acute) Diabetes mellitus (Acute) Edema (Acute) Hypercapnia (Acute) Influenza A (Acute) Abnormal Lab Results 04/14/17 04/14/17 04/14/17 05:10 05:10 05:10 WBC 15.6 H Hgb 11.5 L MCV 78.6 L MCH 24.7 L MCHC 31.4 L RDW 18.5 H BUN 21 H Random Glucose 299 H Hemoglobin A1c % 10.2 H D AST 10 L D Albumin 3.1 L Laboratory Results - last 24 hr 04/14/17 04/14/17 04/14/17 05:10 05:10 05:10 WBC 15.6 H RBC 4.66 Hgb 11.5 L Hct 36.6 MCV 78.6 L MCH 24.7 L MCHC 31.4 L RDW 18.5 H Plt Count 330 MPV 8.7 Sodium 138 Potassium 4.7 Chloride 102 Carbon Dioxide 27 Anion Gap 9 BUN 21 H Creatinine 1.0 D Creat Clearance w eGFR > 60 POC Glucometer Random Glucose 299 H Hemoglobin A1c % 10.2 H D Calcium 9.4 Total Bilirubin 0.4 AST 10 L D ALT 25 Alkaline Phosphatase 88 Creatine Kinase 158 Creatine Kinase Index 1.3 CK-MB (CK-2) 2.156 Troponin I < 0.02 Total Protein 6.4 Albumin 3.1 L Triglycerides 77 D Cholesterol 134 Total LDL Cholesterol 62 D HDL Cholesterol 57 D 04/14/17 04/14/17 04/14/17 11:31 17:34 21:42 WBC RBC Hgb Hct MCV MCH MCHC RDW Plt Count MPV Sodium Potassium Chloride Carbon Dioxide Anion Gap BUN Creatinine Creat Clearance w eGFR POC Glucometer 338 354 382 Random Glucose Hemoglobin A1c % Calcium Total Bilirubin AST ALT Alkaline Phosphatase Creatine Kinase Creatine Kinase Index CK-MB (CK-2) Troponin I Total Protein Albumin Triglycerides Cholesterol Total LDL Cholesterol HDL Cholesterol plan: bgm qid novolog insulin doses novolog 70/30 bid 25 units Current Medications Generic Name Dose Route Start Last Admin Trade Name Freq PRN Reason Stop Dose Admin Acetaminophen 650 mg 04/13/17 22:21 Tylenol - PO Q6H PRN FEVER OR PAIN Albuterol/Ipratropium 1 amp 04/13/17 22:21 04/14/17 22:17 Duoneb - NEB 1 amp Q6H PRN Administration SHORTNESS OF BREATH Apixaban 5 mg 04/14/17 10:00 04/14/17 21:44 Eliquis - PO 5 mg BID ARVIND Administration Atorvastatin Calcium 10 mg 04/14/17 22:00 04/14/17 21:45 Lipitor - PO 10 mg HS ARVIND Administration Digoxin 0.125 mg 04/14/17 10:00 04/14/17 09:30 Lanoxin - PO 0.125 mg DAILY ARVIND Administration Furosemide 40 mg 04/14/17 10:00 04/14/17 09:30 Lasix - PO 40 mg DAILY ARVIND Administration Insulin Aspart 1 vial 04/14/17 07:00 04/14/17 21:48 Novolog Vial Sliding Scale - SQ 8 units ACHS ARVIND Administration Protocol Insulin Detemir 20 units 04/14/17 22:00 04/14/17 21:48 Levemir Vial SQ 20 units HS ARVIND Administration Metformin HCl 500 mg 04/14/17 07:00 04/14/17 17:58 Glucophage - PO 500 mg BID@0700,1630 ARVIND Administration Methylprednisolone Sodium Succinate 40 mg 04/13/17 22:30 04/14/17 17:59 Solu-Medrol - IVPB 40 mg Q8H-IV ARVIND Administration Mometasone Furoate 2 puff 04/14/17 22:00 Asmanex 220mcg - IH HS ARVIND Pantoprazole Sodium 40 mg 04/14/17 10:00 04/14/17 09:30 Protonix - PO 40 mg DAILY ARVIND Administration Sitagliptin Phosphate 50 mg 04/14/17 07:00 04/14/17 06:17 Januvia - PO 50 mg DAILY@0700 ARVIND Administration Tamsulosin HCl 0.4 mg 04/14/17 08:30 04/14/17 08:50 Flomax - PO 0.4 mg DAILY@0830 ARVIND Administration Verapamil HCl 240 mg 04/14/17 10:00 04/14/17 13:23 Calan Sr - PO 240 mg DAILY ARVIND Administration
[2017-04-14] MEDS: MOMETASONE FUROATE 220 MCG/IH INHALER IH SCH (23:24)
[2017-04-15] MEDS: methylPREDNISolone NA SUCC 40 MG/1 ML VIAL IVPB SCH ×3 (02:55→18:00)
[2017-04-15 06:13] LABS: URINE APPEARANCE CLEAR; URINE BILIRUBIN NEGATIVE (NEGATIVE); URINE BLOOD NEGATIVE (NEGATIVE); URINE COLOR LTYELLOW; URINE GLUCOSE (UA) 3+ (NEGATIVE); URINE KETONE TRACE (NEGATIVE); URINE NITRITE NEGATIVE (NEGATIVE); URINE PROTEIN NEGATIVE (NEGATIVE); URINE UROBILINOGEN NEGATIVE mg/dL (0.2-1.0)
[2017-04-15] MEDS: INSULIN (NOVOLOG MIX 70/30) 100 UNITS/ML MDV SQ SCH ×2 (06:38→18:01)
[2017-04-15] MEDS: metFORMIN HCL 500 MG TABLET (FP) PO SCH ×2 (06:38→18:00)
[2017-04-15] MEDS: sitaGLIPtin PHOSPHATE 50 MG TABLET PO SCH (06:38)
[2017-04-15] MEDS: INSULIN SLIDING SCALE (NOVOLOG) 1 VIAL SQ SCH ×4 (06:39→21:37)
[2017-04-15] MEDS ORDERED: INSULIN (NOVOLOG) ASPART 100 UNITS/ML 10ML VIAL ONE ×3 (06:47→17:51)
[2017-04-15] MEDS: FUROSEMIDE 40 MG TABLET (FP) PO SCH (09:08)
[2017-04-15] MEDS: PANTOPRAZOLE 40 MG TABLET (FP) PO SCH (09:09)
[2017-04-15] MEDS: DIGOXIN 0.125 MG TABLET (FP) PO SCH (09:09)
[2017-04-15] MEDS: VERAPAMIL HCL 240 MG E.R. TABLET (FP) PO SCH (09:09)
[2017-04-15] MEDS: APIXABAN 5 MG TABLET PO SCH ×2 (09:09→21:34)
[2017-04-15] MEDS: TAMSULOSIN HCL 0.4 MG CAP.ER.24H (FP) PO SCH (09:09)
[2017-04-15 09:58] LABS: URINE LEUK ESTERASE Negative (NEGATIVE)
--- NOTE | 2017-04-15 11:47 | PN ---
Teaching Attending Note Name of Resident: Opal Myers ATTENDING PHYSICIAN STATEMENT I saw and evaluated the patient. I reviewed the resident's note and discussed the case with the resident. I agree with the resident's findings and plan as documented. PULMONARY ALERT,MUCH IMPROVED,LESS DYSPNEIC SUBJECTIVE:ASSESSMENT AND PLAN: Acute COPD Exacerbation improving Chronic Hypoxic Respiratory Failure LV Diastolic Dysfunction Paroxysmal Atrial Fibrillation Obstructive Sleep Apnea HTN Hyperlipidemia - prednisone - inhaled bronchodilators - glucose control while on systemic steroids - CPAP at night 14 cm H2O - O2 to keep SpO2 >90% - rate controlled - anticoagulation DR STACK Problem List - Problems (1) Acute chronic obstructive pulmonary disease with respiratory distress Code(s): J44.9 - CHRONIC OBSTRUCTIVE PULMONARY DISEASE, UNSPECIFIED R06.03 - ACUTE RESPIRATORY DISTRESS (2) Acute on chronic respiratory failure with hypoxemia Code(s): J96.21 - ACUTE AND CHRONIC RESPIRATORY FAILURE WITH HYPOXIA (3) COPD exacerbation Code(s): J44.1 - CHRONIC OBSTRUCTIVE PULMONARY DISEASE W (ACUTE) EXACERBATION (4) Controlled diabetes mellitus with diabetic peripheral angiopathy without gangrene, without long-term current use of insulin Code(s): E11.51 - TYPE 2 DIABETES W DIABETIC PERIPHERAL ANGIOPATH W/O GANGRENE (5) Edema Code(s): R60.9 - EDEMA, UNSPECIFIED (6) Atrial fibrillation Code(s): I48.91 - UNSPECIFIED ATRIAL FIBRILLATION Qualifiers: Atrial fibrillation type: unspecified Qualified Code(s): I48.91 - Unspecified atrial fibrillation; I48.91 - Unspecified atrial fibrillation; I48.91 - Unspecified atrial fibrillation; I48.91 - Unspecified atrial fibrillation (7) Chronic respiratory failure with hypoxia Code(s): J96.11 - CHRONIC RESPIRATORY FAILURE WITH HYPOXIA (8) Dyspnea Code(s): R06.00 - DYSPNEA, UNSPECIFIED Qualifiers: Dyspnea type: shortness of breath Qualified Code(s): R06.02 - Shortness of breath; R06.02 - Shortness of breath; R06.00 - Dyspnea, unspecified ; R06.01 - Orthopnea (9) HTN (hypertension) Code(s): I10 - ESSENTIAL (PRIMARY) HYPERTENSION (10) Morbid obesity Code(s): E66.01 - MORBID (SEVERE) OBESITY DUE TO EXCESS CALORIES (11) Obstructive sleep apnea Code(s): G47.33 - OBSTRUCTIVE SLEEP APNEA (ADULT) (PEDIATRIC)
--- NOTE | 2017-04-15 13:05 | PN ---
Progress Note, Physician Chief Complaint: AWAKE BREATHING BETTER - Current Medication List Current Medications: Active Medications Acetaminophen (Tylenol -) 650 mg PO Q6H PRN PRN Reason: FEVER OR PAIN Albuterol/Ipratropium (Duoneb -) 1 amp NEB Q6H PRN PRN Reason: SHORTNESS OF BREATH Last Admin: 04/14/17 22:17 Dose: 1 amp Apixaban (Eliquis -) 5 mg PO BID [facility] Last Admin: 04/15/17 09:09 Dose: 5 mg Atorvastatin Calcium (Lipitor -) 10 mg PO HS [facility] Last Admin: 04/14/17 21:45 Dose: 10 mg Digoxin (Lanoxin -) 0.125 mg PO DAILY [facility] Last Admin: 04/15/17 09:09 Dose: 0.125 mg Furosemide (Lasix -) 40 mg PO DAILY [facility] Last Admin: 04/15/17 09:08 Dose: 40 mg Insulin Aspart (Novolog Vial Sliding Scale -) 1 vial SQ ACHS [facility] PRN Reason: Protocol Last Admin: 04/15/17 12:31 Dose: 4 units Insulin Aspart (Novolog Mix 70/30 Vial) 25 units SQ BIDAC [facility] Last Admin: 04/15/17 06:38 Dose: 25 units Insulin Detemir (Levemir Vial) 20 units SQ HS [facility] Last Admin: 04/14/17 21:48 Dose: 20 units Metformin HCl (Glucophage -) 500 mg PO BID@0700,1630 [facility] Last Admin: 04/15/17 06:38 Dose: 500 mg Methylprednisolone Sodium Succinate (Solu-Medrol -) 40 mg IVPB Q8H-IV [facility] Last Admin: 04/15/17 09:08 Dose: 40 mg Mometasone Furoate (Asmanex 220mcg -) 2 puff IH HS [facility] Last Admin: 04/14/17 23:24 Dose: Not Given Pantoprazole Sodium (Protonix -) 40 mg PO DAILY [facility] Last Admin: 04/15/17 09:09 Dose: 40 mg Sitagliptin Phosphate (Januvia -) 50 mg PO DAILY@0700 [facility] Last Admin: 04/15/17 06:38 Dose: 50 mg Tamsulosin HCl (Flomax -) 0.4 mg PO DAILY@0830 [facility] Last Admin: 04/15/17 09:09 Dose: 0.4 mg Verapamil HCl (Calan Sr -) 240 mg PO DAILY [facility] Last Admin: 04/15/17 09:09 Dose: 240 mg - Objective Vital Signs: Vital Signs Temperature 98.4 F 04/15/17 10:00 Pulse Rate 104 H 04/15/17 10:00 Respiratory Rate 20 04/15/17 10:00 Blood Pressure 113/40 04/15/17 10:00 O2 Sat by Pulse Oximetry (%) 97 04/15/17 11:53 Constitutional: Yes: Mild Distress Eyes: Yes: WNL HENT: Yes: WNL Neck: Yes: WNL Cardiovascular: Yes: WNL Respiratory: Yes: Cough, On Nasal O2, Poor Air Entry Gastrointestinal: Yes: WNL Genitourinary: Yes: WNL Musculoskeletal: Yes: WNL Extremities: Yes: WNL Edema: No Peripheral Pulses WNL: Yes Integumentary: Yes: WNL Wound/Incision: Yes: Clean/Dry Neurological: Yes: WNL ...Motor Strength: WNL Psychiatric: Yes: WNL Labs: CBC, BMP 04/14/17 05:10 04/14/17 05:10 Problem List - Problems (1) Acute chronic obstructive pulmonary disease with respiratory distress Code(s): J44.9 - CHRONIC OBSTRUCTIVE PULMONARY DISEASE, UNSPECIFIED R06.03 - ACUTE RESPIRATORY DISTRESS (2) Acute on chronic respiratory failure with hypoxemia Code(s): J96.21 - ACUTE AND CHRONIC RESPIRATORY FAILURE WITH HYPOXIA (3) Asthma Code(s): J45.909 - UNSPECIFIED ASTHMA, UNCOMPLICATED Qualifiers: Asthma severity: moderate Asthma complication type: with acute exacerbation (4) COPD exacerbation Code(s): J44.1 - CHRONIC OBSTRUCTIVE PULMONARY DISEASE W (ACUTE) EXACERBATION (5) Controlled diabetes mellitus with diabetic peripheral angiopathy without gangrene, without long-term current use of insulin Code(s): E11.51 - TYPE 2 DIABETES W DIABETIC PERIPHERAL ANGIOPATH W/O GANGRENE (6) Hypercapnia Code(s): R06.89 - OTHER ABNORMALITIES OF BREATHING (7) Atrial fibrillation Code(s): I48.91 - UNSPECIFIED ATRIAL FIBRILLATION Qualifiers: Atrial fibrillation type: unspecified Qualified Code(s): I48.91 - Unspecified atrial fibrillation; I48.91 - Unspecified atrial fibrillation; I48.91 - Unspecified atrial fibrillation; I48.91 - Unspecified atrial fibrillation Assessment/Plan IV STEROIDS PULMONARY/CARDIOLOGY EVAL RESP SUPPROT AC OOB TO CHAIR CHRISTINA SSI
--- NOTE | 2017-04-15 13:56 | PN ---
Progress Note, Physician History of Present Illness: Pt seen and examined at bedside. He is awake and alert. He feels that his breathing is improved. - Current Medication List Current Medications: Active Medications Acetaminophen (Tylenol -) 650 mg PO Q6H PRN PRN Reason: FEVER OR PAIN Albuterol/Ipratropium (Duoneb -) 1 amp NEB Q6H PRN PRN Reason: SHORTNESS OF BREATH Last Admin: 04/14/17 22:17 Dose: 1 amp Apixaban (Eliquis -) 5 mg PO BID [facility] Last Admin: 04/15/17 09:09 Dose: 5 mg Atorvastatin Calcium (Lipitor -) 10 mg PO HS [facility] Last Admin: 04/14/17 21:45 Dose: 10 mg Digoxin (Lanoxin -) 0.125 mg PO DAILY [facility] Last Admin: 04/15/17 09:09 Dose: 0.125 mg Furosemide (Lasix -) 40 mg PO DAILY [facility] Last Admin: 04/15/17 09:08 Dose: 40 mg Insulin Aspart (Novolog Vial Sliding Scale -) 1 vial SQ [facility] PRN Reason: Protocol Last Admin: 04/15/17 12:31 Dose: 4 units Insulin Aspart (Novolog Mix 70/30 Vial) 25 units SQ BIDAC [facility] Last Admin: 04/15/17 06:38 Dose: 25 units Insulin Detemir (Levemir Vial) 20 units SQ HS [facility] Last Admin: 04/14/17 21:48 Dose: 20 units Metformin HCl (Glucophage -) 500 mg PO BID@0700,1630 [facility] Last Admin: 04/15/17 06:38 Dose: 500 mg Methylprednisolone Sodium Succinate (Solu-Medrol -) 40 mg IVPB Q8H-IV [facility] Last Admin: 04/15/17 09:08 Dose: 40 mg Mometasone Furoate (Asmanex 220mcg -) 2 puff IH HS [facility] Last Admin: 04/14/17 23:24 Dose: Not Given Pantoprazole Sodium (Protonix -) 40 mg PO DAILY [facility] Last Admin: 04/15/17 09:09 Dose: 40 mg Sitagliptin Phosphate (Januvia -) 50 mg PO DAILY@0700 [facility] Last Admin: 04/15/17 06:38 Dose: 50 mg Tamsulosin HCl (Flomax -) 0.4 mg PO DAILY@0830 [facility] Last Admin: 04/15/17 09:09 Dose: 0.4 mg Verapamil HCl (Calan Sr -) 240 mg PO DAILY [facility] Last Admin: 04/15/17 09:09 Dose: 240 mg - Objective Vital Signs: Vital Signs Temperature 98.4 F 04/15/17 10:00 Pulse Rate 104 H 04/15/17 10:00 Respiratory Rate 20 04/15/17 10:00 Blood Pressure 113/40 04/15/17 10:00 O2 Sat by Pulse Oximetry (%) 97 04/15/17 11:53 Constitutional: Yes: Calm Eyes: Yes: Conjunctiva Clear Cardiovascular: Yes: S1, S2 Respiratory: Yes: On Nasal O2 Gastrointestinal: Yes: Soft, Abdomen, Obese Genitourinary: Yes: WNL Edema: Yes Edema: LLE: Trace, RLE: Trace Neurological: Yes: Oriented Psychiatric: Yes: Oriented Labs: CBC, BMP 04/14/17 05:10 04/14/17 05:10 Problem List - Problems (1) Asthma Code(s): J45.909 - UNSPECIFIED ASTHMA, UNCOMPLICATED Qualifiers: Asthma severity: moderate Asthma complication type: with acute exacerbation (2) COPD exacerbation Code(s): J44.1 - CHRONIC OBSTRUCTIVE PULMONARY DISEASE W (ACUTE) EXACERBATION (3) Diabetes mellitus Code(s): E11.9 - TYPE 2 DIABETES MELLITUS WITHOUT COMPLICATIONS Qualifiers: Diabetes mellitus complication status: with other specified complication (4) Edema Code(s): R60.9 - EDEMA, UNSPECIFIED (5) HTN (hypertension) Code(s): I10 - ESSENTIAL (PRIMARY) HYPERTENSION Assessment/Plan Current Medications Generic Name Dose Route Start Last Admin Trade Name Freq PRN Reason Stop Dose Admin Acetaminophen 650 mg 04/13/17 22:21 Tylenol - PO Q6H PRN FEVER OR PAIN Albuterol/Ipratropium 1 amp 04/13/17 22:21 04/14/17 22:17 Duoneb - NEB 1 amp Q6H PRN Administration SHORTNESS OF BREATH Apixaban 5 mg 04/14/17 10:00 04/15/17 09:09 Eliquis - PO 5 mg BID [facility] Administration Atorvastatin Calcium 10 mg 04/14/17 22:00 04/14/17 21:45 Lipitor - PO 10 mg HS [facility] Administration Digoxin 0.125 mg 04/14/17 10:00 04/15/17 09:09 Lanoxin - PO 0.125 mg DAILY [facility] Administration Furosemide 40 mg 04/14/17 10:00 04/15/17 09:08 Lasix - PO 40 mg DAILY [facility] Administration Insulin Aspart 1 vial 04/14/17 07:00 04/15/17 12:31 Novolog Vial Sliding Scale - SQ 4 units ACHS [facility] Administration Protocol Insulin Aspart 25 units 04/15/17 07:00 04/15/17 06:38 Novolog Mix 70/30 Vial SQ 25 units BIDAC [facility] Administration Insulin Detemir 20 units 04/14/17 22:00 04/14/17 21:48 Levemir Vial SQ 20 units HS [facility] Administration Metformin HCl 500 mg 04/14/17 07:00 04/15/17 06:38 Glucophage - PO 500 mg BID@0700,1630 [facility] Administration Methylprednisolone Sodium Succinate 40 mg 04/13/17 22:30 04/15/17 09:08 Solu-Medrol - IVPB 40 mg Q8H-IV [facility] Administration Mometasone Furoate 2 puff 04/14/17 22:00 04/14/17 23:24 Asmanex 220mcg - IH Not Given HS [facility] Pantoprazole Sodium 40 mg 04/14/17 10:00 04/15/17 09:09 Protonix - PO 40 mg DAILY [facility] Administration Sitagliptin Phosphate 50 mg 04/14/17 07:00 04/15/17 06:38 Januvia - PO 50 mg DAILY@0700 [facility] Administration Tamsulosin HCl 0.4 mg 04/14/17 08:30 04/15/17 09:09 Flomax - PO 0.4 mg DAILY@0830 [facility] Administration Verapamil HCl 240 mg 04/14/17 10:00 04/15/17 09:09 Calan Sr - PO 240 mg DAILY [facility] Administration Impression 1. azotemia 2. CHF 3. obstructive sleep apnea 4. obesity 5. DM 6. HTN 7. hyperlipidemia 8. resp failure requiring bipap Plan - will order bmp for am - cont with lasix - bipap as needed - monitor creatinine closely while on metformin Dr Aguilar
--- NOTE | 2017-04-15 14:10 | PN ---
Physical Exam: SUBJECTIVE: Patient seen and examined. Patient feels much improved. No CP, no SOB, no cough. O2 sats overnight are in 90s. Pt compliant with O2 and BiPAP OBJECTIVE: Vital Signs Period Temp Pulse Resp BP Sys/Park Pulse Ox Last 24 Hr 97.5 F-99.1 F 85-104 18-20 112-128/40-85 96-98 GEN: AAOx3, lying comfortably, with BiPAP HEENT: PERRLA, EOMi CV: S1, S2, RRR LUNG: CTABL ABD: Obese, NT, ND Laboratory Results - last 24 hr 04/14/17 04/14/17 04/15/17 17:34 21:42 01:00 POC Glucometer 354 382 Urine Color Ltyellow Urine Appearance Clear Urine pH 5.0 Ur Specific [place] 1.010 Urine Protein Negative Urine Glucose (UA) 3+ H Urine Ketones Trace H Urine Blood Negative Urine Nitrite Negative Urine Bilirubin Negative Urine Urobilinogen Negative Ur Leukocyte Esterase Negative 04/15/17 04/15/17 06:23 12:22 POC Glucometer 322 285 Urine Color Urine Appearance Urine pH Ur Specific [place] Urine Protein Urine Glucose (UA) Urine Ketones Urine Blood Urine Nitrite Urine Bilirubin Urine Urobilinogen Ur Leukocyte Esterase Active Medications Generic Name Dose Route Start Last Admin Trade Name Freq PRN Reason Stop Dose Admin Acetaminophen 650 mg 04/13/17 22:21 Tylenol - PO Q6H PRN FEVER OR PAIN Albuterol/Ipratropium 1 amp 04/13/17 22:21 04/14/17 22:17 Duoneb - NEB 1 amp Q6H PRN Administration SHORTNESS OF BREATH Apixaban 5 mg 04/14/17 10:00 04/15/17 09:09 Eliquis - PO 5 mg BID [facility] Administration Atorvastatin Calcium 10 mg 04/14/17 22:00 04/14/17 21:45 Lipitor - PO 10 mg HS [facility] Administration Digoxin 0.125 mg 04/14/17 10:00 04/15/17 09:09 Lanoxin - PO 0.125 mg DAILY [facility] Administration Furosemide 40 mg 04/14/17 10:00 04/15/17 09:08 Lasix - PO 40 mg DAILY [facility] Administration Insulin Aspart 1 vial 04/14/17 07:00 04/15/17 12:31 Novolog Vial Sliding Scale - SQ 4 units ACHS [facility] Administration Protocol Insulin Aspart 25 units 04/15/17 07:00 04/15/17 06:38 Novolog Mix 70/30 Vial SQ 25 units BIDAC [facility] Administration Insulin Detemir 20 units 04/14/17 22:00 04/14/17 21:48 Levemir Vial SQ 20 units HS [facility] Administration Metformin HCl 500 mg 04/14/17 07:00 04/15/17 06:38 Glucophage - PO 500 mg BID@0700,1630 [facility] Administration Methylprednisolone Sodium Succinate 40 mg 04/13/17 22:30 04/15/17 09:08 Solu-Medrol - IVPB 40 mg Q8H-IV [facility] Administration Mometasone Furoate 2 puff 04/14/17 22:00 04/14/17 23:24 Asmanex 220mcg - IH Not Given HS [facility] Pantoprazole Sodium 40 mg 04/14/17 10:00 04/15/17 09:09 Protonix - PO 40 mg DAILY [facility] Administration Sitagliptin Phosphate 50 mg 04/14/17 07:00 04/15/17 06:38 Januvia - PO 50 mg DAILY@0700 [facility] Administration Tamsulosin HCl 0.4 mg 04/14/17 08:30 04/15/17 09:09 Flomax - PO 0.4 mg DAILY@0830 [facility] Administration Verapamil HCl 240 mg 04/14/17 10:00 04/15/17 09:09 Calan Sr - PO 240 mg DAILY [facility] Administration ASSESSMENT/PLAN: Mr Frias is a 72yo M with PMHx of End stage COPD (on 3.5-4L O2 at home), dCHF ( on lasix and digoxin), Morbid Obesity who presented with 1 day of gradual onset SOB. # Mild COPD Exacerbation - Unlikely PNA, afebrile, CXR clear - Can continue IV steroids, can change to PO and taper upon discharge - Can continue bronchodilators PRN - Continue O2 NC and BiPAP Discussed w/ Dr Oscar. We will continue to follow the patient. Thank you. Opal Myers MD - PGY1 Visit type - Emergency Visit Emergency Visit: No - New Patient This patient is new to me today: No - Critical Care Critical Care patient: No - Discharge Referral Referred to [facility] Med P.C.: No
--- NOTE | 2017-04-15 14:17 | PN ---
Progress Note (short form) - Note Progress Note: CC: SOB S: Current Medications Acetaminophen (Tylenol -) 650 mg PO Q6H PRN PRN Reason: FEVER OR PAIN Albuterol/Ipratropium (Duoneb -) 1 amp NEB Q6H PRN PRN Reason: SHORTNESS OF BREATH Last Admin: 04/14/17 22:17 Dose: 1 amp Apixaban (Eliquis -) 5 mg PO BID [facility] Last Admin: 04/15/17 09:09 Dose: 5 mg Atorvastatin Calcium (Lipitor -) 10 mg PO HS [facility] Last Admin: 04/14/17 21:45 Dose: 10 mg Digoxin (Lanoxin -) 0.125 mg PO DAILY [facility] Last Admin: 04/15/17 09:09 Dose: 0.125 mg Furosemide (Lasix -) 40 mg PO DAILY [facility] Last Admin: 04/15/17 09:08 Dose: 40 mg Insulin Aspart (Novolog Vial Sliding Scale -) 1 vial SQ ACHS [facility] PRN Reason: Protocol Last Admin: 04/15/17 12:31 Dose: 4 units Insulin Aspart (Novolog Mix 70/30 Vial) 25 units SQ BIDAC [facility] Last Admin: 04/15/17 06:38 Dose: 25 units Insulin Detemir (Levemir Vial) 20 units SQ HS [facility] Last Admin: 04/14/17 21:48 Dose: 20 units Metformin HCl (Glucophage -) 500 mg PO BID@0700,1630 [facility] Last Admin: 04/15/17 06:38 Dose: 500 mg Methylprednisolone Sodium Succinate (Solu-Medrol -) 40 mg IVPB Q8H-IV [facility] Last Admin: 04/15/17 09:08 Dose: 40 mg Mometasone Furoate (Asmanex 220mcg -) 2 puff IH HS [facility] Last Admin: 04/14/17 23:24 Dose: Not Given Pantoprazole Sodium (Protonix -) 40 mg PO DAILY [facility] Last Admin: 04/15/17 09:09 Dose: 40 mg Sitagliptin Phosphate (Januvia -) 50 mg PO DAILY@0700 [facility] Last Admin: 04/15/17 06:38 Dose: 50 mg Tamsulosin HCl (Flomax -) 0.4 mg PO DAILY@0830 [facility] Last Admin: 04/15/17 09:09 Dose: 0.4 mg Verapamil HCl (Calan Sr -) 240 mg PO DAILY [facility] Last Admin: 04/15/17 09:09 Dose: 240 mg Vital Signs - 24 hr 04/14/17 04/14/17 04/14/17 15:25 17:00 21:00 Temperature 98.0 F 99.1 F Pulse Rate 94 H 86 Respiratory 20 20 20 Rate Blood Pressure 128/82 121/85 O2 Sat by Pulse 98 Oximetry (%) 04/14/17 04/14/17 04/15/17 22:00 23:00 02:00 Temperature 97.5 F L 97.9 F Pulse Rate 87 85 Respiratory 18 20 Rate Blood Pressure 118/66 112/68 O2 Sat by Pulse 96 Oximetry (%) 04/15/17 04/15/17 04/15/17 02:45 09:09 10:00 Temperature 98.4 F Pulse Rate 85 104 H Respiratory 20 Rate Blood Pressure 113/40 O2 Sat by Pulse 98 97 Oximetry (%) 04/15/17 11:53 Temperature Pulse Rate Respiratory Rate Blood Pressure O2 Sat by Pulse 97 Oximetry (%) Intake & Output 04/13/17 04/14/17 04/15/17 04/16/17 07:59 07:59 07:59 07:59 Intake Total 500 400 Output Total 100 750 Balance 400 -350 Weight 348 lb 1.758 oz 339 lb 3.2 oz NAD, calm JVD difficult to assess due to size, neck supple dec air movment bl, nl effort Irregularly, irregular nl s1, s2 no m/r/g + bs soft obese nt nd ext with trace edema. no cyanosis or clubbing + dp/pt no carotid bruits no jaundice, diaphoresis. aaox3 CBC, BMP 04/14/17 05:10 04/14/17 05:10 ecg 04/13/17: afib, rate controlled, nl qtc, no ischemic changes cxr: clear lungs tele: afib, rate controlled echo 07/2016: Nl lv/rv. 1+ AR Echo 08/2015: tds, nl lv/rv, no sig valve path mibi 12/2012: small posterior ischemia vs artifact, nl lvef, no tid 10/2015 CT scan negative for PE a/p: 72 yo male with h/o AFib s/p prior DCCV 12/2015 to SR on AC, HTN, HL, dchf , PVCs with palpitations, morbid obesity, LUCY on bipap, severe COPD, here with sob. sob, copd: - has tendency towards volume retention felicia when receives steroids for copd exacerbation - vol status appears stable, copd likely cause of current sob - no signs pulm edema, no signs acs - copd/lucy tx per pulm paroxysmal AF/flutter -cont eliquis for AC -new dx 2015--req'd amio for HR control then (now off due to severe lung dz), s/ p successful DCCV 12/24, then reverted to afib -rate has been adequately controlled with the combo of calan and dig -avoiding BB given severe bronchospasm/copd; would like to avoid long-term amio for same reason hld: -continue home statin htn: -stable on current meds possible cad: -pt had borderline positive mibi in 2012 vs soft tissue attenuation artifact -never had angina sx's -no signs acs here -continue medical management with statin, AC without ASA chronic diastolic chf: -vol appears stable -cont home lasix 40 po qd -monitor vol status with iv steroids, may need prn increase lasix
[2017-04-15] MEDS ORDERED: PT OWN MED DRAWER 7, Y5N ONE ×2 (18:13→18:31)
[2017-04-15] MEDS: ATORVASTATIN CA 10 MG TABLET (FP) PO SCH (21:34)
[2017-04-15] MEDS: INSULIN DETEMIR 100 UNITS/ML MDV SQ SCH (21:36)
[2017-04-15] MEDS: MOMETASONE FUROATE 220 MCG/IH INHALER IH SCH (21:36)
[2017-04-16] MEDS: methylPREDNISolone NA SUCC 40 MG/1 ML VIAL IVPB SCH ×3 (02:59→17:45)
[2017-04-16] MEDS ORDERED: INSULIN (NOVOLOG) ASPART 100 UNITS/ML 10ML VIAL ONE (06:25)
[2017-04-16] MEDS: INSULIN SLIDING SCALE (NOVOLOG) 1 VIAL SQ SCH ×4 (06:30→22:28)
[2017-04-16] MEDS: INSULIN (NOVOLOG MIX 70/30) 100 UNITS/ML MDV SQ SCH ×2 (06:35→16:35)
[2017-04-16] MEDS: sitaGLIPtin PHOSPHATE 50 MG TABLET PO SCH (06:35)
[2017-04-16] MEDS: metFORMIN HCL 500 MG TABLET (FP) PO SCH ×2 (06:35→16:41)
[2017-04-16] MEDS: ALBUTEROL SO4 2.5/IPRATROPIUM 0.5 INH SOL 3 ML VIAL.NEB. NEB PRN ×2 (06:43→22:06)
[2017-04-16 06:58] LABS: ANION GAP 11 (8-16); CALCIUM 9.1 mg/dL (8.5-10.1); CO2 29 mmol/L (21-32)
[2017-04-16 07:00] LABS: CREATININE 1.1 mg/dL (0.7-1.3)
[2017-04-16 07:04] LABS: GLUCOSE,RANDOM 307 mg/dL (74-106)
[2017-04-16] MEDS: TAMSULOSIN HCL 0.4 MG CAP.ER.24H (FP) PO SCH (09:05)
[2017-04-16] MEDS: VERAPAMIL HCL 240 MG E.R. TABLET (FP) PO SCH (09:42)
[2017-04-16] MEDS: DIGOXIN 0.125 MG TABLET (FP) PO SCH (09:42)
[2017-04-16] MEDS: PANTOPRAZOLE 40 MG TABLET (FP) PO SCH (09:43)
[2017-04-16] MEDS: APIXABAN 5 MG TABLET PO SCH ×2 (09:43→22:30)
[2017-04-16] MEDS: FUROSEMIDE 40 MG TABLET (FP) PO SCH (09:43)
--- NOTE | 2017-04-16 10:18 | PN ---
Progress Note, Physician History of Present Illness: pulmonary comfortable on bipap,-resp distress - Current Medication List Current Medications: Active Medications Acetaminophen (Tylenol -) 650 mg PO Q6H PRN PRN Reason: FEVER OR PAIN Albuterol/Ipratropium (Duoneb -) 1 amp NEB Q6H PRN PRN Reason: SHORTNESS OF BREATH Last Admin: 04/16/17 06:43 Dose: 1 amp Apixaban (Eliquis -) 5 mg PO BID [facility] Last Admin: 04/16/17 09:43 Dose: 5 mg Atorvastatin Calcium (Lipitor -) 10 mg PO HS [facility] Last Admin: 04/15/17 21:34 Dose: 10 mg Digoxin (Lanoxin -) 0.125 mg PO DAILY [facility] Last Admin: 04/16/17 09:42 Dose: 0.125 mg Furosemide (Lasix -) 40 mg PO DAILY [facility] Last Admin: 04/16/17 09:43 Dose: 40 mg Insulin Aspart (Novolog Vial Sliding Scale -) 1 vial SQ ACHS [facility] PRN Reason: Protocol Last Admin: 04/16/17 06:30 Dose: 6 units Insulin Aspart (Novolog Mix 70/30 Vial) 25 units SQ BIDAC [facility] Last Admin: 04/16/17 06:35 Dose: 25 units Insulin Detemir (Levemir Vial) 20 units SQ HS [facility] Last Admin: 04/15/17 21:36 Dose: 20 units Metformin HCl (Glucophage -) 500 mg PO BID@0700,1630 [facility] Last Admin: 04/16/17 06:35 Dose: 500 mg Methylprednisolone Sodium Succinate (Solu-Medrol -) 40 mg IVPB Q8H-IV [facility] Last Admin: 04/16/17 09:44 Dose: 40 mg Mometasone Furoate (Asmanex 220mcg -) 2 puff IH HS [facility] [place] Last Admin: 04/15/17 21:36 Dose: 2 puff Pantoprazole Sodium (Protonix -) 40 mg PO DAILY [facility] Last Admin: 04/16/17 09:43 Dose: 40 mg Sitagliptin Phosphate (Januvia -) 50 mg PO DAILY@0700 [facility] Last Admin: 04/16/17 06:35 Dose: 50 mg Tamsulosin HCl (Flomax -) 0.4 mg PO DAILY@0830 [facility] Last Admin: 04/16/17 09:05 Dose: 0.4 mg Verapamil HCl (Calan Sr -) 240 mg PO DAILY [facility] Last Admin: 04/16/17 09:42 Dose: 240 mg - Objective Vital Signs: Vital Signs Temperature 97.8 F 04/16/17 10:00 Pulse Rate 88 04/16/17 10:00 Respiratory Rate 18 04/16/17 10:00 Blood Pressure 121/67 04/16/17 10:00 O2 Sat by Pulse Oximetry (%) 97 04/16/17 06:30 Constitutional: Yes: Well Nourished, Calm, Obese Eyes: Yes: WNL HENT: Yes: WNL Neck: Yes: WNL Cardiovascular: Yes: Pulse Irregular, S1, S2 Respiratory: Yes: Diminished Gastrointestinal: Yes: Normal Bowel Sounds, Soft Extremities: Yes: WNL Edema: Yes Labs: CBC, BMP 04/14/17 05:10 04/16/17 05:10 Problem List - Problems (1) Acute chronic obstructive pulmonary disease with respiratory distress Code(s): J44.9 - CHRONIC OBSTRUCTIVE PULMONARY DISEASE, UNSPECIFIED R06.03 - ACUTE RESPIRATORY DISTRESS (2) Acute on chronic respiratory failure with hypoxemia Code(s): J96.21 - ACUTE AND CHRONIC RESPIRATORY FAILURE WITH HYPOXIA (3) COPD exacerbation Code(s): J44.1 - CHRONIC OBSTRUCTIVE PULMONARY DISEASE W (ACUTE) EXACERBATION (4) Controlled diabetes mellitus with diabetic peripheral angiopathy without gangrene, without long-term current use of insulin Code(s): E11.51 - TYPE 2 DIABETES W DIABETIC PERIPHERAL ANGIOPATH W/O GANGRENE (5) Edema Code(s): R60.9 - EDEMA, UNSPECIFIED (6) Atrial fibrillation Code(s): I48.91 - UNSPECIFIED ATRIAL FIBRILLATION Qualifiers: Atrial fibrillation type: unspecified Qualified Code(s): I48.91 - Unspecified atrial fibrillation; I48.91 - Unspecified atrial fibrillation; I48.91 - Unspecified atrial fibrillation; I48.91 - Unspecified atrial fibrillation (7) Chronic respiratory failure with hypoxia Code(s): J96.11 - CHRONIC RESPIRATORY FAILURE WITH HYPOXIA (8) Dyspnea Code(s): R06.00 - DYSPNEA, UNSPECIFIED Qualifiers: Dyspnea type: shortness of breath Qualified Code(s): R06.02 - Shortness of breath; R06.02 - Shortness of breath; R06.00 - Dyspnea, unspecified ; R06.01 - Orthopnea (9) HTN (hypertension) Code(s): I10 - ESSENTIAL (PRIMARY) HYPERTENSION (10) Morbid obesity Code(s): E66.01 - MORBID (SEVERE) OBESITY DUE TO EXCESS CALORIES (11) Obstructive sleep apnea Code(s): G47.33 - OBSTRUCTIVE SLEEP APNEA (ADULT) (PEDIATRIC) Assessment/Plan PULMONARY ALERT,MUCH IMPROVED,LESS DYSPNEIC SUBJECTIVE:ASSESSMENT AND PLAN: Acute COPD Exacerbation improving Chronic Hypoxic Respiratory Failure LV Diastolic Dysfunction Paroxysmal Atrial Fibrillation Obstructive Sleep Apnea HTN Hyperlipidemia - prednisone - inhaled bronchodilators - glucose control while on systemic steroids - O2 to keep SpO2 >90% - rate controlled - anticoagulation DR STACK Problem List - Problems (1) Acute chronic obstructive pulmonary disease with respiratory distress Code(s): J44.9 - CHRONIC OBSTRUCTIVE PULMONARY DISEASE, UNSPECIFIED R06.03 - ACUTE RESPIRATORY DISTRESS (2) Acute on chronic respiratory failure with hypoxemia Code(s): J96.21 - ACUTE AND CHRONIC RESPIRATORY FAILURE WITH HYPOXIA (3) COPD exacerbation Code(s): J44.1 - CHRONIC OBSTRUCTIVE PULMONARY DISEASE W (ACUTE) EXACERBATION (4) Controlled diabetes mellitus with diabetic peripheral angiopathy without gangrene, without long-term current use of insulin Code(s): E11.51 - TYPE 2 DIABETES W DIABETIC PERIPHERAL ANGIOPATH W/O GANGRENE (5) Edema Code(s): R60.9 - EDEMA, UNSPECIFIED (6) Atrial fibrillation Code(s): I48.91 - UNSPECIFIED ATRIAL FIBRILLATION Qualifiers: Atrial fibrillation type: unspecified Qualified Code(s): I48.91 - Unspecified atrial fibrillation; I48.91 - Unspecified atrial fibrillation; I48.91 - Unspecified atrial fibrillation; I48.91 - Unspecified atrial fibrillation (7) Chronic respiratory failure with hypoxia Code(s): J96.11 - CHRONIC RESPIRATORY FAILURE WITH HYPOXIA (8) Dyspnea Code(s): R06.00 - DYSPNEA, UNSPECIFIED Qualifiers: Dyspnea type: shortness of breath Qualified Code(s): R06.02 - Shortness of breath; R06.02 - Shortness of breath; R06.00 - Dyspnea, unspecified ; R06.01 - Orthopnea (9) HTN (hypertension) Code(s): I10 - ESSENTIAL (PRIMARY) HYPERTENSION (10) Morbid obesity Code(s): E66.01 - MORBID (SEVERE) OBESITY DUE TO EXCESS CALORIES (11) Obstructive sleep apnea Code(s): G47.33 - OBSTRUCTIVE SLEEP APNEA (ADULT) (PEDIATRIC)
[2017-04-16 11:14] LABS: URINE APPEARANCE CLEAR; URINE BILIRUBIN NEGATIVE (NEGATIVE); URINE BLOOD NEGATIVE (NEGATIVE); URINE COLOR STRAW; URINE GLUCOSE (UA) 3+ (NEGATIVE); URINE KETONE NEGATIVE (NEGATIVE); URINE NITRITE NEGATIVE (NEGATIVE); URINE PROTEIN NEGATIVE (NEGATIVE); URINE UROBILINOGEN NEGATIVE mg/dL (0.2-1.0)
--- NOTE | 2017-04-16 11:45 | PN ---
Progress Note, Physician Chief Complaint: AWAKE ALERT FEELING BETTER - Current Medication List Current Medications: Active Medications Acetaminophen (Tylenol -) 650 mg PO Q6H PRN PRN Reason: FEVER OR PAIN Albuterol/Ipratropium (Duoneb -) 1 amp NEB Q6H PRN PRN Reason: SHORTNESS OF BREATH Last Admin: 04/16/17 06:43 Dose: 1 amp Apixaban (Eliquis -) 5 mg PO BID [facility] Last Admin: 04/16/17 09:43 Dose: 5 mg Atorvastatin Calcium (Lipitor -) 10 mg PO HS [facility] Last Admin: 04/15/17 21:34 Dose: 10 mg Digoxin (Lanoxin -) 0.125 mg PO DAILY [facility] Last Admin: 04/16/17 09:42 Dose: 0.125 mg Furosemide (Lasix -) 40 mg PO DAILY [facility] Last Admin: 04/16/17 09:43 Dose: 40 mg Insulin Aspart (Novolog Vial Sliding Scale -) 1 vial SQ [facility] PRN Reason: Protocol Last Admin: 04/16/17 11:39 Dose: 6 units Insulin Aspart (Novolog Mix 70/30 Vial) 35 units SQ BIDAC [facility] Insulin Detemir (Levemir Vial) 20 units SQ [facility] Last Admin: 04/15/17 21:36 Dose: 20 units Metformin HCl (Glucophage -) 500 mg PO BID@0700,1630 [facility] Last Admin: 04/16/17 06:35 Dose: 500 mg Methylprednisolone Sodium Succinate (Solu-Medrol -) 40 mg IVPB Q8H-IV [facility] Last Admin: 04/16/17 09:44 Dose: 40 mg Mometasone Furoate (Asmanex 220mcg -) 2 puff IH [facility] Last Admin: 04/15/17 21:36 Dose: 2 puff Pantoprazole Sodium (Protonix -) 40 mg PO DAILY [facility] Last Admin: 04/16/17 09:43 Dose: 40 mg Sitagliptin Phosphate (Januvia -) 50 mg PO DAILY@0700 [facility] Last Admin: 04/16/17 06:35 Dose: 50 mg Tamsulosin HCl (Flomax -) 0.4 mg PO DAILY@0830 [facility] Last Admin: 04/16/17 09:05 Dose: 0.4 mg Verapamil HCl (Calan Sr -) 240 mg PO DAILY [facility] Last Admin: 04/16/17 09:42 Dose: 240 mg - Objective Vital Signs: Vital Signs Temperature 97.8 F 04/16/17 10:00 Pulse Rate 88 04/16/17 10:00 Respiratory Rate 18 04/16/17 10:00 Blood Pressure 121/67 04/16/17 10:00 O2 Sat by Pulse Oximetry (%) 99 04/16/17 09:00 Constitutional: Yes: Mild Distress Eyes: Yes: WNL HENT: Yes: WNL Neck: Yes: WNL Cardiovascular: Yes: Pulse Irregular Respiratory: Yes: Diminished, On Nasal O2, Poor Air Entry Gastrointestinal: Yes: WNL Genitourinary: Yes: WNL Musculoskeletal: Yes: Muscle Weakness Extremities: Yes: WNL Edema: Yes Edema: LLE: Trace, RLE: Trace Peripheral Pulses WNL: Yes Integumentary: Yes: WNL Wound/Incision: Yes: Clean/Dry Neurological: Yes: WNL ...Motor Strength: WNL Psychiatric: Yes: WNL Labs: CBC, BMP 04/14/17 05:10 04/16/17 05:10 Problem List - Problems (1) Acute chronic obstructive pulmonary disease with respiratory distress Code(s): J44.9 - CHRONIC OBSTRUCTIVE PULMONARY DISEASE, UNSPECIFIED R06.03 - ACUTE RESPIRATORY DISTRESS (2) Acute on chronic respiratory failure with hypoxemia Code(s): J96.21 - ACUTE AND CHRONIC RESPIRATORY FAILURE WITH HYPOXIA (3) Asthma Code(s): J45.909 - UNSPECIFIED ASTHMA, UNCOMPLICATED Qualifiers: Asthma severity: moderate Asthma complication type: with acute exacerbation (4) COPD exacerbation Code(s): J44.1 - CHRONIC OBSTRUCTIVE PULMONARY DISEASE W (ACUTE) EXACERBATION (5) Controlled diabetes mellitus with diabetic peripheral angiopathy without gangrene, without long-term current use of insulin Code(s): E11.51 - TYPE 2 DIABETES W DIABETIC PERIPHERAL ANGIOPATH W/O GANGRENE (6) Hypercapnia Code(s): R06.89 - OTHER ABNORMALITIES OF BREATHING (7) Atrial fibrillation Code(s): I48.91 - UNSPECIFIED ATRIAL FIBRILLATION Qualifiers: Atrial fibrillation type: unspecified Qualified Code(s): I48.91 - Unspecified atrial fibrillation; I48.91 - Unspecified atrial fibrillation; I48.91 - Unspecified atrial fibrillation; I48.91 - Unspecified atrial fibrillation Assessment/Plan IV STEROIDS PULMONARY/CARDIOLOGY EVAL RESP SUPPROT AC OOB TO CHAIR CHRISTINA STANTON
--- NOTE | 2017-04-16 14:43 | PN ---
Progress Note (short form) - Note Progress Note: CC: SOB S: Current Medications Acetaminophen (Tylenol -) 650 mg PO Q6H PRN PRN Reason: FEVER OR PAIN Albuterol/Ipratropium (Duoneb -) 1 amp NEB Q6H PRN PRN Reason: SHORTNESS OF BREATH Last Admin: 04/16/17 06:43 Dose: 1 amp Apixaban (Eliquis -) 5 mg PO BID [facility] Last Admin: 04/16/17 09:43 Dose: 5 mg Atorvastatin Calcium (Lipitor -) 10 mg PO HS [facility] Last Admin: 04/15/17 21:34 Dose: 10 mg Digoxin (Lanoxin -) 0.125 mg PO DAILY [facility] Last Admin: 04/16/17 09:42 Dose: 0.125 mg Furosemide (Lasix -) 40 mg PO DAILY [facility] Last Admin: 04/16/17 09:43 Dose: 40 mg Insulin Aspart (Novolog Vial Sliding Scale -) 1 vial SQ ACHS [facility] PRN Reason: Protocol Last Admin: 04/16/17 11:39 Dose: 6 units Insulin Aspart (Novolog Mix 70/30 Vial) 35 units SQ BIDAC [facility] Insulin Detemir (Levemir Vial) 20 units SQ [facility] Last Admin: 04/15/17 21:36 Dose: 20 units Metformin HCl (Glucophage -) 500 mg PO BID@0700,1630 [facility] Last Admin: 04/16/17 06:35 Dose: 500 mg Methylprednisolone Sodium Succinate (Solu-Medrol -) 40 mg IVPB Q8H-IV [facility] Last Admin: 04/16/17 09:44 Dose: 40 mg Mometasone Furoate (Asmanex 220mcg -) 2 puff IH HS [facility] Last Admin: 04/15/17 21:36 Dose: 2 puff Pantoprazole Sodium (Protonix -) 40 mg PO DAILY [facility] Last Admin: 04/16/17 09:43 Dose: 40 mg Sitagliptin Phosphate (Januvia -) 50 mg PO DAILY@0700 [facility] Last Admin: 04/16/17 06:35 Dose: 50 mg Tamsulosin HCl (Flomax -) 0.4 mg PO DAILY@0830 [facility] Last Admin: 04/16/17 09:05 Dose: 0.4 mg Verapamil HCl (Calan Sr -) 240 mg PO DAILY [facility] Last Admin: 04/16/17 09:42 Dose: 240 mg Vital Signs - 24 hr 04/15/17 04/15/17 04/15/17 15:00 17:00 21:00 Temperature 97.9 F 97.6 F Pulse Rate 87 76 Respiratory 18 20 20 Rate Blood Pressure 107/56 125/75 O2 Sat by Pulse 97 Oximetry (%) 04/15/17 04/16/17 04/16/17 23:16 02:00 03:24 Temperature Pulse Rate 79 Respiratory 20 Rate Blood Pressure 104/57 O2 Sat by Pulse 98 97 Oximetry (%) 04/16/17 04/16/17 04/16/17 06:00 06:30 09:00 Temperature 98.3 F Pulse Rate 77 Respiratory 18 20 Rate Blood Pressure 127/75 O2 Sat by Pulse 97 99 Oximetry (%) 04/16/17 04/16/17 09:42 10:00 Temperature 97.8 F Pulse Rate 88 88 Respiratory 18 Rate Blood Pressure 121/67 O2 Sat by Pulse Oximetry (%) Intake & Output 04/14/17 04/15/17 04/16/17 04/17/17 07:59 07:59 07:59 07:59 Intake Total 500 400 900 500 Output Total 100 750 800 600 Balance 400 -350 100 -100 Weight 348 lb 1.758 oz 339 lb 3.2 oz 327 lb NAD, calm JVD difficult to assess due to size, neck supple dec air movment bl, nl effort Irregularly, irregular nl s1, s2 no m/r/g + bs soft obese nt nd ext with trace edema. no cyanosis or clubbing + dp/pt no carotid bruits no jaundice, diaphoresis. aaox3 CBC, BMP 04/14/17 05:10 04/16/17 05:10 ecg 04/13/17: afib, rate controlled, nl qtc, no ischemic changes cxr: clear lungs tele: afib, rate controlled echo 07/2016: Nl lv/rv. 1+ AR Echo 08/2015: tds, nl lv/rv, no sig valve path mibi 12/2012: small posterior ischemia vs artifact, nl lvef, no tid 10/2015 CT scan negative for PE a/p: 72 yo male with h/o AFib s/p prior DCCV 12/2015 to SR on AC, HTN, HL, dchf , PVCs with palpitations, morbid obesity, LUCY on bipap, severe COPD, here with sob.
[2017-04-16 16:49] LABS: URINE LEUK ESTERASE Negative (NEGATIVE)
[2017-04-16] MEDS ORDERED: FLU VACCINE QUAD 60 MCG/0.5 ML (MDV 17-18) IM ONE (19:00)
--- NOTE | 2017-04-16 20:29 | PN ---
Progress Note (short form) - Note Progress Note: Active Medications Acetaminophen (Tylenol -) 650 mg PO Q6H PRN PRN Reason: FEVER OR PAIN Albuterol/Ipratropium (Duoneb -) 1 amp NEB Q6H PRN PRN Reason: SHORTNESS OF BREATH Last Admin: 04/16/17 06:43 Dose: 1 amp Apixaban (Eliquis -) 5 mg PO BID [facility] Last Admin: 04/16/17 09:43 Dose: 5 mg Atorvastatin Calcium (Lipitor -) 10 mg PO HS [facility] Last Admin: 04/15/17 21:34 Dose: 10 mg Digoxin (Lanoxin -) 0.125 mg PO DAILY [facility] Last Admin: 04/16/17 09:42 Dose: 0.125 mg Furosemide (Lasix -) 40 mg PO DAILY [facility] Last Admin: 04/16/17 09:43 Dose: 40 mg Insulin Aspart (Novolog Vial Sliding Scale -) 1 vial SQ ACHS [facility] PRN Reason: Protocol Last Admin: 04/16/17 16:35 Dose: 10 units Insulin Aspart (Novolog Mix 70/30 Vial) 35 units SQ BIDAC [facility] Last Admin: 04/16/17 16:35 Dose: 35 unit Insulin Detemir (Levemir Vial) 20 units SQ HS [facility] Last Admin: 04/15/17 21:36 Dose: 20 units Metformin HCl (Glucophage -) 500 mg PO BID@0700,1630 [facility] Last Admin: 04/16/17 16:41 Dose: 500 mg Methylprednisolone Sodium Succinate (Solu-Medrol -) 40 mg IVPB Q8H-IV [facility] Last Admin: 04/16/17 17:45 Dose: 40 mg Mometasone Furoate (Asmanex 220mcg -) 2 puff IH HS [facility] Last Admin: 04/15/17 21:36 Dose: 2 puff Pantoprazole Sodium (Protonix -) 40 mg PO DAILY [facility] Last Admin: 04/16/17 09:43 Dose: 40 mg Sitagliptin Phosphate (Januvia -) 50 mg PO DAILY@0700 [facility] Last Admin: 04/16/17 06:35 Dose: 50 mg Tamsulosin HCl (Flomax -) 0.4 mg PO DAILY@0830 [facility] Last Admin: 04/16/17 09:05 Dose: 0.4 mg Verapamil HCl (Calan Sr -) 240 mg PO DAILY [facility] Last Admin: 04/16/17 09:42 Dose: 240 mg Last Vital Signs Temp Pulse Resp BP Pulse Ox 97.8 F 82 20 132/64 99 04/16/17 18:00 04/16/17 18:00 04/16/17 18:00 04/16/17 18:00 04/16/17 09:00 CBC, BMP 04/14/17 05:10 04/16/17 17:20 Prerenal azotemia- stable Plan- no new intervention
[2017-04-16] MEDS ORDERED: PT OWN MED DRAWER 7, Y5N ONE (22:01)
[2017-04-16] MEDS: INSULIN DETEMIR 100 UNITS/ML MDV SQ SCH (22:30)
[2017-04-16] MEDS: ATORVASTATIN CA 10 MG TABLET (FP) PO SCH (22:30)
[2017-04-16] MEDS: MOMETASONE FUROATE 220 MCG/IH INHALER IH SCH (22:31)
[2017-04-17] MEDS: methylPREDNISolone NA SUCC 40 MG/1 ML VIAL IVPB SCH ×2 (03:24→09:28)
[2017-04-17] MEDS: INSULIN (NOVOLOG MIX 70/30) 100 UNITS/ML MDV SQ SCH (06:43)
[2017-04-17] MEDS: sitaGLIPtin PHOSPHATE 50 MG TABLET PO SCH (06:45)
[2017-04-17] MEDS: metFORMIN HCL 500 MG TABLET (FP) PO SCH (06:45)
[2017-04-17] MEDS: INSULIN SLIDING SCALE (NOVOLOG) 1 VIAL SQ SCH ×2 (06:51→11:33)
[2017-04-17] MEDS: VERAPAMIL HCL 240 MG E.R. TABLET (FP) PO SCH (09:27)
[2017-04-17] MEDS: DIGOXIN 0.125 MG TABLET (FP) PO SCH (09:27)
[2017-04-17] MEDS: APIXABAN 5 MG TABLET PO SCH (09:27)
[2017-04-17] MEDS: FUROSEMIDE 40 MG TABLET (FP) PO SCH (09:27)
[2017-04-17] MEDS: TAMSULOSIN HCL 0.4 MG CAP.ER.24H (FP) PO SCH (09:27)
[2017-04-17] MEDS: PANTOPRAZOLE 40 MG TABLET (FP) PO SCH (09:28)
--- NOTE | 2017-04-17 10:33 | PN ---
Progress Note, Physician History of Present Illness: pulmonary alert,ambulating ,-resp distress - Current Medication List Current Medications: Active Medications Acetaminophen (Tylenol -) 650 mg PO Q6H PRN PRN Reason: FEVER OR PAIN Albuterol/Ipratropium (Duoneb -) 1 amp NEB Q6H PRN PRN Reason: SHORTNESS OF BREATH Last Admin: 04/16/17 22:06 Dose: 1 amp Apixaban (Eliquis -) 5 mg PO BID [facility] Last Admin: 04/17/17 09:27 Dose: 5 mg Atorvastatin Calcium (Lipitor -) 10 mg PO HS [facility] Last Admin: 04/16/17 22:30 Dose: 10 mg Digoxin (Lanoxin -) 0.125 mg PO DAILY [facility] Last Admin: 04/17/17 09:27 Dose: 0.125 mg Furosemide (Lasix -) 40 mg PO DAILY [facility] Last Admin: 04/17/17 09:27 Dose: Not Given Insulin Aspart (Novolog Vial Sliding Scale -) 1 vial SQ ACHS [facility] PRN Reason: Protocol Last Admin: 04/17/17 06:51 Dose: 4 units Insulin Aspart (Novolog Mix 70/30 Vial) 35 units SQ BIDAC [facility] Last Admin: 04/17/17 06:43 Dose: 35 unit Insulin Detemir (Levemir Vial) 20 units SQ HS [facility] Last Admin: 04/16/17 22:30 Dose: 20 units Metformin HCl (Glucophage -) 500 mg PO BID@0700,1630 [facility] Last Admin: 04/17/17 06:45 Dose: 500 mg Methylprednisolone Sodium Succinate (Solu-Medrol -) 40 mg IVPB Q8H-IV [facility] Last Admin: 04/17/17 09:28 Dose: 40 mg Mometasone Furoate (Asmanex 220mcg -) 2 puff IH HS [facility] Last Admin: 04/16/17 22:31 Dose: 2 puff Pantoprazole Sodium (Protonix -) 40 mg PO DAILY [facility] Last Admin: 04/17/17 09:28 Dose: 40 mg Sitagliptin Phosphate (Januvia -) 50 mg PO DAILY@0700 [facility] Last Admin: 04/17/17 06:45 Dose: 50 mg Tamsulosin HCl (Flomax -) 0.4 mg PO DAILY@0830 [facility] Last Admin: 04/17/17 09:27 Dose: 0.4 mg Verapamil HCl (Calan Sr -) 240 mg PO DAILY [facility] Last Admin: 04/17/17 09:27 Dose: 240 mg - Objective Vital Signs: Vital Signs Temperature 97.8 F 04/17/17 02:00 Pulse Rate 120 H 04/17/17 09:27 Respiratory Rate 20 04/17/17 06:00 Blood Pressure 120/86 04/17/17 06:00 O2 Sat by Pulse Oximetry (%) 97 04/17/17 07:01 Constitutional: Yes: Calm, Obese Eyes: Yes: WNL HENT: Yes: WNL Neck: Yes: WNL Cardiovascular: Yes: Pulse Irregular, S1, S2 Respiratory: Yes: Diminished Gastrointestinal: Yes: Normal Bowel Sounds, Soft Extremities: Yes: WNL Edema: Yes Labs: CBC, BMP Problem List - Problems (1) Acute chronic obstructive pulmonary disease with respiratory distress Code(s): J44.9 - CHRONIC OBSTRUCTIVE PULMONARY DISEASE, UNSPECIFIED R06.03 - ACUTE RESPIRATORY DISTRESS (2) Acute on chronic respiratory failure with hypoxemia Code(s): J96.21 - ACUTE AND CHRONIC RESPIRATORY FAILURE WITH HYPOXIA (3) COPD exacerbation Code(s): J44.1 - CHRONIC OBSTRUCTIVE PULMONARY DISEASE W (ACUTE) EXACERBATION (4) Controlled diabetes mellitus with diabetic peripheral angiopathy without gangrene, without long-term current use of insulin Code(s): E11.51 - TYPE 2 DIABETES W DIABETIC PERIPHERAL ANGIOPATH W/O GANGRENE (5) Edema Code(s): R60.9 - EDEMA, UNSPECIFIED (6) Atrial fibrillation Code(s): I48.91 - UNSPECIFIED ATRIAL FIBRILLATION Qualifiers: Atrial fibrillation type: unspecified Qualified Code(s): I48.91 - Unspecified atrial fibrillation; I48.91 - Unspecified atrial fibrillation; I48.91 - Unspecified atrial fibrillation; I48.91 - Unspecified atrial fibrillation (7) Chronic respiratory failure with hypoxia Code(s): J96.11 - CHRONIC RESPIRATORY FAILURE WITH HYPOXIA (8) Dyspnea Code(s): R06.00 - DYSPNEA, UNSPECIFIED Qualifiers: Dyspnea type: shortness of breath Qualified Code(s): R06.02 - Shortness of breath; R06.02 - Shortness of breath; R06.00 - Dyspnea, unspecified ; R06.01 - Orthopnea (9) HTN (hypertension) Code(s): I10 - ESSENTIAL (PRIMARY) HYPERTENSION (10) Morbid obesity Code(s): E66.01 - MORBID (SEVERE) OBESITY DUE TO EXCESS CALORIES (11) Obstructive sleep apnea Code(s): G47.33 - OBSTRUCTIVE SLEEP APNEA (ADULT) (PEDIATRIC) Assessment/Plan PULMONARY ALERT,MUCH IMPROVED,LESS DYSPNEIC SUBJECTIVE:ASSESSMENT AND PLAN: Acute COPD Exacerbation improved Chronic Hypoxic Respiratory Failure LV Diastolic Dysfunction Paroxysmal Atrial Fibrillation Obstructive Sleep Apnea HTN Hyperlipidemia - prednisone - inhaled bronchodilators - glucose control while on systemic steroids - O2 to keep SpO2 >90% - rate controlled - anticoagulation DR STACK Problem List - Problems (1) Acute chronic obstructive pulmonary disease with respiratory distress Code(s): J44.9 - CHRONIC OBSTRUCTIVE PULMONARY DISEASE, UNSPECIFIED R06.03 - ACUTE RESPIRATORY DISTRESS (2) Acute on chronic respiratory failure with hypoxemia Code(s): J96.21 - ACUTE AND CHRONIC RESPIRATORY FAILURE WITH HYPOXIA (3) COPD exacerbation Code(s): J44.1 - CHRONIC OBSTRUCTIVE PULMONARY DISEASE W (ACUTE) EXACERBATION (4) Controlled diabetes mellitus with diabetic peripheral angiopathy without gangrene, without long-term current use of insulin Code(s): E11.51 - TYPE 2 DIABETES W DIABETIC PERIPHERAL ANGIOPATH W/O GANGRENE (5) Edema Code(s): R60.9 - EDEMA, UNSPECIFIED (6) Atrial fibrillation Code(s): I48.91 - UNSPECIFIED ATRIAL FIBRILLATION Qualifiers: Atrial fibrillation type: unspecified Qualified Code(s): I48.91 - Unspecified atrial fibrillation; I48.91 - Unspecified atrial fibrillation; I48.91 - Unspecified atrial fibrillation; I48.91 - Unspecified atrial fibrillation (7) Chronic respiratory failure with hypoxia Code(s): J96.11 - CHRONIC RESPIRATORY FAILURE WITH HYPOXIA (8) Dyspnea Code(s): R06.00 - DYSPNEA, UNSPECIFIED Qualifiers: Dyspnea type: shortness of breath Qualified Code(s): R06.02 - Shortness of breath; R06.02 - Shortness of breath; R06.00 - Dyspnea, unspecified ; R06.01 - Orthopnea (9) HTN (hypertension) Code(s): I10 - ESSENTIAL (PRIMARY) HYPERTENSION (10) Morbid obesity Code(s): E66.01 - MORBID (SEVERE) OBESITY DUE TO EXCESS CALORIES (11) Obstructive sleep apnea Code(s): G47.33 - OBSTRUCTIVE SLEEP APNEA (ADULT) (PEDIATRIC)
[2017-04-17 10:51] VITALS: BP 113/60; PULSE 130; TEMP 98
--- NOTE | 2017-04-17 12:55 | DS ---
Physical Examination Vital Signs: Vital Signs Temperature 98 F 04/17/17 10:00 Pulse Rate 130 H 04/17/17 10:00 Respiratory Rate 20 04/17/17 10:00 Blood Pressure 113/60 04/17/17 10:00 O2 Sat by Pulse Oximetry (%) 95 04/17/17 09:00 Constitutional: Yes: Mild Distress Eyes: Yes: WNL HENT: Yes: WNL Neck: Yes: WNL Cardiovascular: Yes: Pulse Irregular Respiratory: Yes: CTA Bilaterally, On Nasal O2 Gastrointestinal: Yes: WNL Musculoskeletal: Yes: Muscle Weakness Extremities: Yes: WNL Edema: Yes Edema: LLE: 2+, RLE: 2+ Peripheral Pulses WNL: Yes Integumentary: Yes: Rash, Venous Stasis Changes Wound/Incision: Yes: Clean/Dry Neurological: Yes: WNL ...Motor Strength: LLE, RLE Psychiatric: Yes: WNL Labs: CBC, BMP 04/14/17 05:10 04/16/17 17:20 Discharge Summary Reason For Visit: HYPERCANIA; ACUTE ON CHRONIC RESPIRATORY FAILURE Current Active Problems Acute chronic obstructive pulmonary disease with respiratory distress (Acute) Acute on chronic respiratory failure with hypoxemia (Acute) Asthma (Acute) COPD exacerbation (Acute) Controlled diabetes mellitus with diabetic peripheral angiopathy without gangrene, without long-term current use of insulin (Acute) Diabetes mellitus (Acute) Edema (Acute) Hypercapnia (Acute) Influenza A (Acute) Procedures: Principal: CXR Hospital Course: ADMITTED FOR ACUTE ON CHRONIC COPD AND CHF, TREATED WITH SOLUMEDROL AND LASIX, RESP SUPPORT. Condition: Good - Instructions Diet, Activity, Other Instructions: LOW SODIUM ADA LOW FAT [facility] Referrals: Mars Brothers MD [Primary Care Provider] - Disposition: VNS/HOME HEALTH CARE - Home Medications Comprehensive Discharge Medication List: Ambulatory Orders Albuterol 0.083% Nebulizer Cielo [Ventolin 0.083% Nebulizer Soln -] 1 neb NEB Q4H PRN 08/26/16 Apixaban [Eliquis] 5 mg PO BID 08/26/16 Atorvastatin Ca [Lipitor] 10 mg PO HS 08/26/16 Digoxin [Lanoxin -] 0.125 mg PO DAILY 08/26/16 Gabapentin 100 mg PO BID 08/26/16 Tamsulosin HCl [Flomax] 0.4 mg PO DAILY 08/26/16 Verapamil HCl [Verapamil ER] 240 mg PO BID 08/26/16 Prednisone [Deltasone -] 20 mg PO DAILY tablet 08/31/16 Furosemide [Lasix -] 40 mg PO DAILY 02/21/17 Mometasone Furoate [Asmanex 220Mcg -] 1 inh IH BID 03/08/17 Pantoprazole Sodium [Protonix] 40 mg PO DAILY 03/08/17 Insulin Aspart [Novolog] 100 unit SQ ASDIR 03/22/17 Insulin (LOG) Aspart [NovoLOG -] 0 unit SQ DAILY 04/13/17 Acetaminophen [Tylenol .Regular Strength -] 650 mg PO Q6H PRN #120 tablet Albuterol 2.5/Ipratropium 0.5 [Duoneb -] 1 amp NEB Q6H PRN #120 amp 04/17/17 Apixaban [Eliquis -] 5 mg PO BID #60 tablet 04/17/17 Atorvastatin Ca [Lipitor] 10 mg PO HS #30 tablet 04/17/17 Digoxin [Lanoxin -] 0.125 mg PO DAILY #30 tablet 04/17/17 Furosemide [Lasix -] 40 mg PO DAILY #30 tablet 04/17/17 Insulin (Levemir) [Levemir Flexpen -] 20 units SQ BID #4 syr 04/17/17 Insulin (Levemir) [Levemir Flexpen -] 20 units SQ DAILY #1 pen 04/17/17 Insulin (Novolog 70/30) [Novolog Mix 70/30 Flexpen -] 30 units SQ BIDAC #1 pen 04/17/17 Insulin (Novolog) [Novolog -] 0 units SQ AC #1 vial 04/17/17 Metformin HCl [Glucophage -] 500 mg PO BID@0700,1630 #60 tablet 04/17/17 Mometasone Furoate [Asmanex 220Mcg -] 2 puff IH HS #1 inhaler 04/17/17 Pantoprazole Sodium [Protonix -] 40 mg PO DAILY #30 tab 04/17/17 Prednisone [Deltasone -] 10 mg PO ASDIR #100 tab 04/17/17 Prednisone [Deltasone -] 50 mg PO DAILY #30 tablet 04/17/17 Sitagliptin Phos/Metformin HCl [Janumet 50-1,000 mg Tablet] 1 each PO DAILY #30 tab 04/17/17 Tamsulosin HCl [Flomax -] 0.4 mg PO DAILY@30 #30 cap 04/17/17 Verapamil HCl ER [Calan Sr -] 240 mg PO DAILY #30 tab 04/17/17
[2017-04-18] MEDS ORDERED: predniSONE 20 MG TABLET (UD) PO SCH (10:00)
== END 2017-04-17 13:49 | disposition home health service (06) | DRG 190 ==
LOC: JER 16:02 → JERBED 19:14 → J2W 04-14 00:27 → J4W 04-14 10:39
PROVIDERS: ADMIT Family Medicine; ATTEND Family Medicine
PROC: 5A09557 Assistance with Respiratory Ventilation, Greater than 96 Consecutive Hours, Continuous Positive Airway Pressure (ICD-10-PCS; principal; 2017-04-13)
DX: J44.1 Chronic obstructive pulmonary disease with (acute) exacerbation (principal); J96.21 Acute and chronic respiratory failure with hypoxia; Z68.42 Body mass index [BMI] 45.0-49.9, adult; I48.92 Unspecified atrial flutter; I50.32 Chronic diastolic (congestive) heart failure; E11.51 Type 2 diabetes mellitus with diabetic peripheral angiopathy without gangrene; Z79.4 Long term (current) use of insulin; E66.01 Morbid (severe) obesity due to excess calories; G47.33 Obstructive sleep apnea (adult) (pediatric); I48.0 Paroxysmal atrial fibrillation; E78.5 Hyperlipidemia, unspecified; Z87.891 Personal history of nicotine dependence; I11.0 Hypertensive heart disease with heart failure; J11.1 Influenza due to unidentified influenza virus with other respiratory manifestations
CPT/HCPCS: 36415; 71020-TC; 80048; 80053; 80061; 81003; 82553; 82947; 83036; 83721; 83880; 84484; 85025; 85027; 90688; 93005; 93010; 94640; 94660; 99283-25; G0008

== ENCOUNTER 2017-05-06 11:11 | Emergency (ER) | payer OTHER ==
[2017-05-06 11:28] VITALS: BP 132/77; PULSE 105; TEMP 97.6; BMI 46.0
== END 2017-05-06 12:57 | disposition left against medical advice (07) ==
LOC: JER 11:11
DX: Z53.21 Procedure and treatment not carried out due to patient leaving prior to being seen by health care provider (principal)
CPT/HCPCS: 99281-25

== ENCOUNTER 2017-06-25 13:37 | Emergency (ER) | payer OTHER ==
[2017-06-25 13:47] VITALS: BP 128/64; PULSE 92; TEMP 97.3; BMI 44.6
--- NOTE | 2017-06-25 14:33 | PDOC ---
History of Present Illness - General Chief Complaint: Injury Stated Complaint: LT KNEE PAIN Time Seen by Provider: 06/25/17 14:32 - History of Present Illness Initial Comments: 06/25/17 14:33 CHIEF COMPLAINT: knee pain HISTORY OF PRESENT ILLNESS: Patient is a 72 year old male with a significant past medical history of CAD, afib, chronic ischemic heart disease, cardiomyopathy, CHF, fatty liver, COPD on home oxygen, AODM, and hyperlipidemia presents to fast track with left knee pain. Patient reports that he felt his knee pop while trying to get up a few days ago and has been having pain since. Patient reports that he was scheduled for a knee replacement 6 years ago but prior to the procedure his O2 sat was too low so the procedure was cancelled and he never followed up after that. Patient requests referral for "an old doctor, not a young one." PAST MEDICAL HISTORY: as per HPI FAMILY HISTORY: Denies SOCIAL HISTORY: Former smoker. SURGICAL HISTORY: knee surgery ALLERGIES: No known drug allergies REVIEW OF SYSTEMS General/Constitutional: Denies fever or chills. Denies weakness, weight change. HEENT: Denies change in vision. Denies ear pain or discharge. Denies sore throat. Cardiovascular: Denies chest pain or shortness of breath. Respiratory: Denies cough, wheezing, or hemoptysis. Gastrointestinal: Denies nausea, vomiting, diarrhea or constipation. Denies rectal bleeding. Genitourinary: Denies dysuria, frequency, or change in urination. Musculoskeletal: L knee pain, chronic. Skin and breasts: Denies rash or easy bruising. PHYSICAL EXAM General Appearance: Well-appearing, appropriately dressed. No apparent distress. HEENT: EOMI, PERRLA. No conjunctival pallor. No photophobia, scleral icterus. Respiratory/Chest: Lungs CTAB. No shortness of breath, chest tenderness, respiratory distress, accessory muscle use. No crackles, rales, rhonchi, stridor , wheezing, dullness Cardiovascular: RRR. S1, S2. Musculoskeletal/Extremities: Normal inspection. FROM of all extremities, normal capillary refill. Pelvis Stable. No CVA tenderness. No tenderness to extremities, pedal edema, swelling, erythema or deformity. Integumentary: Appropriate color, dry, warm. No cyanosis, erythema, jaundice or rash Neurologic: lawn mower II-XII intact. Fully oriented, alert. Appropriate mood/affect. Motor strength 5/5. No appreciable EOM palsy, facial droop or sensory deficit. Past History - Past Medical History Allergies/Adverse Reactions: Allergies Allergy/AdvReac Type Severity Reaction Status Date / Time No Known Allergies Allergy Verified 06/25/17 13:47 Home Medications: Ambulatory Orders Albuterol 0.083% Nebulizer Cielo [Ventolin 0.083% Nebulizer Soln -] 1 neb NEB Q4H PRN 08/26/16 Apixaban [Eliquis] 5 mg PO BID 08/26/16 Atorvastatin Ca [Lipitor] 10 mg PO HS 08/26/16 Digoxin [Lanoxin -] 0.125 mg PO DAILY 08/26/16 Gabapentin 100 mg PO BID 08/26/16 Tamsulosin HCl [Flomax] 0.4 mg PO DAILY 08/26/16 Verapamil HCl [Verapamil ER] 240 mg PO BID 08/26/16 Furosemide [Lasix -] 40 mg PO DAILY 02/21/17 Mometasone Furoate [Asmanex 220Mcg -] 2 inh IH DAILY 03/08/17 Pantoprazole Sodium [Protonix] 40 mg PO DAILY 03/08/17 Acetaminophen [Tylenol .Regular Strength -] 650 mg PO Q6H PRN #120 tablet Insulin (Levemir) [Levemir Flexpen -] 20 units SQ BID #4 syr 04/17/17 Insulin (Novolog) [Novolog -] 0 units SQ AC #1 vial 04/17/17 Sitagliptin Phos/Metformin HCl [Janumet 50-1,000 mg Tablet] 1 each PO DAILY #30 tab 04/17/17 Prednisone [Deltasone -] 60 mg PO DAILY tablet 05/13/17 Anemia: No Asthma: No Cancer: No Cardiac Disorders: Yes (CAD, COARSE A.FIBRILATION, CHRONIC ISCHEMIC HEART DISEASE, CARDIOMYOPATHY) CVA: No COPD: Yes (EMPHYSEMA) CHF: Yes Dementia: No Diabetes: Yes (IDDM) GI Disorders: No Disorders: No HTN: Yes Hypercholesterolemia: Yes Liver Disease: Yes (FATTY LIVER) Seizures: No Thyroid Disease: No Other medical history: SLEEP APNEA - Surgical History Abdominal Surgery: No Appendectomy: No Cardiac Surgery: No Cholecystectomy: No Lung Surgery: No Neurologic Surgery: No Orthopedic Surgery: Yes (bilateral knee surgery 1974 left knee 1979) - Family Disease History Family Disease History: Heart Disease: Father - Immunization History Immunization Up to Date: Yes - Suicide/Smoking/Psychosocial Hx Smoking Status: Yes (QUIT 2011) Smoking History: Former smoker Have you smoked in the past 12 months: No Number of Cigarettes Smoked Daily: 0 If you are a former smoker, when did you quit?: 6 YRS AGO Cigars Per Day: 0 Information on smoking cessation initiated: No Hx Alcohol Use: No Drug/Substance Use Hx: No Substance Use Type: None Hx Substance Use Treatment: No *Physical Exam - Vital Signs Last Vital Signs Temp Pulse Resp BP Pulse Ox 97.3 F L 92 H 20 128/64 97 06/25/17 13:43 06/25/17 13:43 06/25/17 13:43 06/25/17 13:43 06/25/17 13:43 ED Treatment Course - RADIOLOGY Radiology Studies Ordered: Category Date Time Status KNEE 3 POS-LEFT [RAD] Stat Radiology 06/25/17 14:32 Ordered Medical Decision Making - Medical Decision Making 06/25/17 15:15 Patient is a 72 year old male with a significant past medical history of CAD, afib, chronic ischemic heart disease, cardiomyopathy, CHF, fatty liver, COPD on home oxygen, AODM, and hyperlipidemia presents to fast track with left knee pain. -L knee x-ray X-ray shows dgenerative changes, no acute pathology. Discussed with patient that he must follow up with orthopedics for further evaluation and discuss elective knee surgery. Referral provided. Advised patient of signs and symptoms for return to ER; patient verbalized understanding and agrees to plan. *DC/Admit/Observation/Transfer Diagnosis at time of Disposition: Knee pain, left - Discharge Dispostion Disposition: HOME Condition at time of disposition: Stable Admit: No - Referrals Referrals: Mars Brothers MD [Primary Care Provider] - Enrique Florez MD [Staff Physician] - - Patient Instructions Printed Discharge Instructions: Knee Replacement Additional Instructions: As discussed, you must follow up with orthopedics for further evaluation of your knee pain. If you develop any calf pain, new shortness of breath, chest pain, palpitations, or any new or worsening symptoms, please return to the ER immediately. - Post Discharge Activity
== END 2017-06-25 15:30 | disposition home or self-care (01) ==
LOC: JERFT 13:37
DX: M25.562 Pain in left knee (principal); I25.9 Chronic ischemic heart disease, unspecified; I50.9 Heart failure, unspecified; I48.91 Unspecified atrial fibrillation; Z79.01 Long term (current) use of anticoagulants; E11.9 Type 2 diabetes mellitus without complications; Z79.4 Long term (current) use of insulin; E78.5 Hyperlipidemia, unspecified; J44.9 Chronic obstructive pulmonary disease, unspecified; Z99.81 Dependence on supplemental oxygen
CPT/HCPCS: 73562-TC-LT; 99281-25

== ENCOUNTER 2017-07-04 12:30 | Inpatient (IN) | payer OTHER ==
--- NOTE | 2017-07-04 13:01 | PDOC ---
Attending Attestation - Resident Resident Name: Aleena Randle - ED Attending Attestation I have performed the following: I have examined & evaluated the patient, The case was reviewed & discussed with the resident, I agree w/resident's findings & plan, Exceptions are as noted - HPI HPI: 07/04/17 12:58 Cough and congestion - Physicial Exam PE: 07/04/17 12:58 VSS/NAD - Medical Decision Making 07/04/17 13:[address] Randle's assessment and plan
[2017-07-04] MEDS ORDERED: methylPREDNISolone NA SUCC 125 MG/2 ML VIAL IVPB ONE (13:16)
[2017-07-04] MEDS ORDERED: ALBUTEROL SO4 2.5/IPRATROPIUM 0.5 INH SOL 3 ML VIAL.NEB. NEB ONE ×3 (13:16→22:34)
--- NOTE | 2017-07-04 13:16 | PDOC ---
History of Present Illness - General Chief Complaint: Shortness of Breath Stated Complaint: SOB, COLD SYMPTOMS Time Seen by Provider: 07/04/17 12:39 History Source: Patient Exam Limitations: No Limitations - History of Present Illness Initial Comments: This is a 72 YOM with h/o COPD, asthma, and CHF (on 4 LPM 24/7 at home and on BiPAP at night, on albuterol MDI and nebulizer tx as well as Spiriva, on 20 mg Lasix daily), IDDM, HTN, and HLD who presents c/o cough and congestion over the past few days now with SOB which feels like his prior COPD exacerbations. He has been coughing up beige phlegm and has had unchanged chronic ankle swelling with L>R for the past few days. He denies any fever, chills, nausea, vomiting, diarrhea, change in weight, lightheadness, LOC, headache, rectal bleeding, recent travel, or sick contacts. His COPD and asthma tend to be exacerbated by hot weather, he has never been intubated for it, he has only been admitted to the ICU once for <1 day, and he is seen here at [facility] about 5 times/year for ANDRADE and wheezing with the last visit earlier this month. He was placed on a prednisone taper at that time (started 50 mg/day for one week, then 40 mg/day for one week, etc). Past History - Past Medical History Allergies/Adverse Reactions: Allergies Allergy/AdvReac Type Severity Reaction Status Date / Time No Known Allergies Allergy Verified 07/04/17 12:36 Home Medications: Ambulatory Orders Albuterol 0.083% Nebulizer Cielo [Ventolin 0.083% Nebulizer Soln -] 1 neb NEB Q4H PRN 08/26/16 Apixaban [Eliquis] 5 mg PO BID 08/26/16 Atorvastatin Ca [Lipitor] 10 mg PO HS 08/26/16 Digoxin [Lanoxin -] 0.125 mg PO DAILY 08/26/16 Gabapentin 100 mg PO BID 08/26/16 Tamsulosin HCl [Flomax] 0.4 mg PO DAILY 08/26/16 Verapamil HCl [Verapamil ER] 240 mg PO BID 08/26/16 Furosemide [Lasix -] 40 mg PO DAILY 02/21/17 Mometasone Furoate [Asmanex 220Mcg -] 2 inh IH DAILY 03/08/17 Pantoprazole Sodium [Protonix] 40 mg PO DAILY 03/08/17 Acetaminophen [Tylenol .Regular Strength -] 650 mg PO Q6H PRN #120 tablet Insulin (Levemir) [Levemir Flexpen -] 20 units SQ BID #4 syr 04/17/17 Insulin (Novolog) [Novolog -] 0 units SQ AC #1 vial 04/17/17 Sitagliptin Phos/Metformin HCl [Janumet 50-1,000 mg Tablet] 1 each PO DAILY #30 tab 04/17/17 Metformin HCl 500 mg PO BID 07/04/17 Prednisone [Deltasone -] 20 mg PO DAILY 07/04/17 Anemia: No Asthma: No Cancer: No Cardiac Disorders: Yes (CAD, COARSE A.FIBRILATION, CHRONIC ISCHEMIC HEART DISEASE, CARDIOMYOPATHY) CVA: No COPD: Yes (EMPHYSEMA) CHF: Yes Dementia: No Diabetes: Yes (IDDM) GI Disorders: No Disorders: No HTN: Yes Hypercholesterolemia: Yes Liver Disease: Yes (FATTY LIVER) Seizures: No Thyroid Disease: No - Surgical History Abdominal Surgery: No Appendectomy: No Cardiac Surgery: No Cholecystectomy: No Lung Surgery: No Neurologic Surgery: No Orthopedic Surgery: Yes (bilateral knee surgery 1974 left knee 1979) - Family Disease History Family Disease History: Heart Disease: Father - Immunization History Immunization Up to Date: Yes - Suicide/Smoking/Psychosocial Hx Smoking Status: Yes (QUIT 2011) Smoking History: Former smoker Have you smoked in the past 12 months: No Number of Cigarettes Smoked Daily: 0 If you are a former smoker, when did you quit?: 6 years ago Cigars Per Day: 0 Information on smoking cessation initiated: No Hx Alcohol Use: No Drug/Substance Use Hx: No Substance Use Type: None Hx Substance Use Treatment: No Respiratory Specific PMHX - Complaint Specific PMHX Bronchitis: Yes Review of Systems - Review of Systems Able to Perform ROS?: Yes Constitutional: No: Chills, Fever, Unexplained wgt Loss HEENTM: Yes: Nose Congestion. No: Throat Pain Respiratory: Yes: Cough, Shortness of Breath, Productive cough (beige sputum) Cardiac (ROS): No: Chest Pain, Palpitations ABD/GI: No: Constipated, Diarrhea, Nausea, Vomiting : No: Burning, Dysuria Musculoskeletal: No: Back Pain, Neck Pain Integumentary: No: Bruising, Rash Neurological: No: Headache, Numbness, Tingling, Weakness, Dizziness Endocrine: No: Unexplained Weight Gain, Unexplained Weight Loss *Physical Exam - Vital Signs Last Vital Signs Temp Pulse Resp BP Pulse Ox 98 F 67 24 158/96 98 07/04/17 12:36 07/04/17 12:36 07/04/17 12:36 07/04/17 12:36 07/04/17 12:36 - Physical Exam General Appearance: Yes: Nourished, Appropriately Dressed, Mild Distress, Obese , Other (pleasant adult male who answers questions appropriately and speaks in 4 -word sentences) HEENT: positive: EOMI, YARA, Normal Voice, Nasal Congestion, Hearing Grossly Normal. negative: Scleral Icterus (R), Scleral Icterus (L) Neck: positive: Trachea midline, Supple. negative: Tender, Rigid Respiratory/Chest: positive: Lungs Clear, Normal Breath Sounds, Respiratory Distress (mild), Rhonchi, Wheezing, Other (mild tachypnea). negative: Crackles , Stridor Cardiovascular: positive: Regular Rate, Irregularly Irregular, Other (distant breath sounds). negative: Murmur Gastrointestinal/Abdominal: positive: Normal Bowel Sounds, Soft, Protuberent. negative: Tender, Organomegaly, Pulsatile Mass, Guarding Musculoskeletal: positive: Normal Inspection. negative: Decreased Range of Motion, Vertebral Tenderness Extremity: positive: Normal Capillary Refill, Normal Inspection, Normal Range of Motion. negative: Tender, Cyanosis Integumentary: positive: Normal Color, Dry, Warm. negative: Erythema, Rash, Bruising Neurologic: positive: identification and records commander II-XII NML intact (grossly), Fully Oriented, Alert, Normal Mood/Affect, Normal Response, Motor Strength 5/5 ED Treatment Course - LABORATORY CBC & Chemistry Diagram: 07/04/17 13:55 07/04/17 13:55 Medical Decision Making - Medical Decision Making 72 YOM with h/o COPD, asthma, CHF, IDDM, HTN, HLD, LUCY on nighttime CPAP p/w SOB , wheezing, cough, congestion. On exam VS wnl but the patient has bilateral expiratory wheezes and rhonchi, distant heart sounds, pitting edema BLE. DDX IBNLT CHF exacerbation, COPD exacerbation, bronchitis/PNA, PE, ACS, etc. Ordered is CBCD, CMP, BNP, cardiac panel, CXR, EKG, DuoNebs, SoluMedrol, Lasix. BNP elevated >200 and notably this is around the level of elevation he has during CHF exacerbation in the past. WBC mildly elevated and likely 2/2 prednisone use. Lactate is 2.4 and will be repeated though patient not given fluids 2/2 CHF exacerbation. 07/04/17 18:35 Patient has been admitted to inpatient med/surg to Dr. Brothers who requests Drs. Lara and Dayne consulting. Consult and admission orders placed. *DC/Admit/Observation/Transfer Diagnosis at time of Disposition: COPD exacerbation CHF exacerbation Qualifiers: Congestive heart failure type: unspecified congestive heart failure type Qualified Code(s): I50.9 - Heart failure, unspecified - Discharge Dispostion Condition at time of disposition: Guarded Admit: Yes - Referrals - Patient Instructions - Post Discharge Activity
[2017-07-04] MEDS ORDERED: methylPREDNISolone NA SUCC 125 MG/2 ML VIAL ONE (13:57)
[2017-07-04 14:07] LABS: HEMATOCRIT 40.8 % (35.4-49); HEMOGLOBIN 12.9 GM/dL (11.7-16.9); MCH 26.1 pg (25.7-33.7); MCHC 31.6 g/dl (32.0-35.9); MEAN CELL VOLUME 82.7 fl (80-96); MEAN PLT VOLUME 8.2 fl (7.5-11.1); PLATELET COUNT 254 K/MM3 (134-434); RBC 4.93 M/mm3 (4.00-5.60); RDW 21.4 % (11.9-15.9); WHITE BLOOD COUNT 10.2 K/mm3 (4.0-10.0)
[2017-07-04 14:12] LABS: VENOUS PC02 42.9 mmHg (38-52); VENOUS PH 7.35 (7.32-7.42); VENOUS PO2 81.6 mmHg (28-48)
[2017-07-04 14:32] LABS: ALBUMIN 3.4 g/dl (3.4-5.0); ALK PHOS 87 U/L (45-117); ANION GAP 6 (8-16); BILIRUBIN,TOTAL 0.5 mg/dL (0.2-1.0); BLOOD UREA NITROGEN 19 mg/dL (7-18); CALCIUM 8.8 mg/dL (8.5-10.1); CHLORIDE 106 mmol/L (98-107); CO2 28 mmol/L (21-32); CREATININE 0.9 mg/dL (0.7-1.3); GLUCOSE,RANDOM 114 mg/dL (74-106); POTASSIUM 4.2 mmol/L (3.5-5.1); SGOT/AST 10 U/L (15-37); SGPT/ALT 42 U/L (12-78); SODIUM 140 mmol/L (136-145); TOT PROT 6.4 g/dl (6.4-8.2)
[2017-07-04 14:34] LABS: N-TERMINAL BNP 227.53 pg/ml (5-125)
[2017-07-04 14:45] LABS: PLATELET ESTIMATE ADEQUATE
[2017-07-04] MEDS ORDERED: FUROSEMIDE 40 MG/4 ML INJECTABLE VIAL IVPUSH ONE (15:14)
[2017-07-04] MEDS ORDERED: FUROSEMIDE 40 MG/4 ML INJECTABLE VIAL ONE (16:11)
[2017-07-04] MEDS ORDERED: ALBUTEROL SO4 2.5/IPRATROPIUM 0.5 INH SOL 3 ML VIAL.NEB. NEB PRN (21:58)
[2017-07-04] MEDS ORDERED: ACETAMINOPHEN 325 MG TABLET (FP) PO PRN (21:58)
[2017-07-04] MEDS ORDERED: ATORVASTATIN CA 80 MG TABLET (FP) ONE (22:34)
[2017-07-04] MEDS ORDERED: GABAPENTIN 100 MG CAPSULE (FP) ONE (22:34)
[2017-07-04] MEDS ORDERED: methylPREDNISolone NA SUCC 40 MG/1 ML VIAL ONE (22:35)
[2017-07-04] MEDS ORDERED: INSULIN DETEMIR 100 UNITS/ML MDV SQ ONE (22:36)
[2017-07-04] MEDS ORDERED: INSULIN (NOVOLOG) ASPART 100 UNITS/ML 10ML VIAL ONE (22:38)
[2017-07-04] MEDS: ATORVASTATIN CA 80 MG TABLET (FP) PO SCH (22:47)
[2017-07-04] MEDS: methylPREDNISolone NA SUCC 40 MG/1 ML VIAL IVPUSH SCH (22:48)
[2017-07-04] MEDS: GABAPENTIN 300 MG CAPSULE (FP) PO SCH (22:48)
[2017-07-04] MEDS: APIXABAN 5 MG TABLET PO SCH (23:22)
[2017-07-04] MEDS: INSULIN DETEMIR 100 UNITS/ML MDV SQ SCH (23:44)
[2017-07-04] MEDS: INSULIN SLIDING SCALE (NOVOLOG) 1 VIAL SQ SCH (23:44)
[2017-07-05] MEDS: methylPREDNISolone NA SUCC 40 MG/1 ML VIAL IVPUSH SCH ×3 (02:35→17:49)
[2017-07-05] MEDS ORDERED: ACETAMINOPHEN 325 MG TABLET (FP) ONE (04:42)
[2017-07-05] MEDS: GABAPENTIN 300 MG CAPSULE (FP) PO SCH ×3 (05:59→21:52)
[2017-07-05] MEDS ORDERED: sitaGLIPtin PHOSPHATE 50 MG TABLET ONE (07:39)
[2017-07-05] MEDS ORDERED: metFORMIN HCL 500 MG TABLET (FP) ONE (07:39)
[2017-07-05] MEDS ORDERED: GABAPENTIN 100 MG CAPSULE (FP) ONE (07:39)
[2017-07-05] MEDS ORDERED: methylPREDNISolone NA SUCC 40 MG/1 ML VIAL ONE (07:39)
[2017-07-05] MEDS ORDERED: INSULIN DETEMIR 100 UNITS/ML MDV SQ ONE ×2 (07:41→17:44)
[2017-07-05] MEDS: metFORMIN HCL 500 MG TABLET (FP) PO SCH ×2 (09:31→17:48)
[2017-07-05] MEDS: sitaGLIPtin PHOSPHATE 50 MG TABLET PO SCH (09:32)
[2017-07-05] MEDS: INSULIN SLIDING SCALE (NOVOLOG) 1 VIAL SQ SCH ×4 (09:32→21:53)
[2017-07-05] MEDS: INSULIN DETEMIR 100 UNITS/ML MDV SQ SCH ×2 (09:32→17:47)
[2017-07-05] MEDS: APIXABAN 5 MG TABLET PO SCH ×2 (09:33→21:52)
[2017-07-05] MEDS: DIGOXIN 0.125 MG TABLET (FP) PO SCH (09:33)
[2017-07-05] MEDS: AZITHROMYCIN 500 MG TABLET PO SCH (09:34)
[2017-07-05] MEDS: TAMSULOSIN HCL 0.4 MG CAP.ER.24H (FP) PO SCH (09:34)
[2017-07-05] MEDS: VERAPAMIL HCL 240 MG E.R. TABLET (FP) PO SCH (09:35)
[2017-07-05] MEDS: CEFTRIAXONE 2 GM in DEXTROSE 5%-WATER - 100 ML IVPB SCH (09:36)
[2017-07-05] MEDS ORDERED: PANTOPRAZOLE 40 MG TABLET (FP) ONE (10:09)
[2017-07-05] MEDS: PANTOPRAZOLE 40 MG TABLET (FP) PO SCH (10:11)
[2017-07-05] MEDS: FUROSEMIDE 100 MG/10 ML INJECTABLE VIAL IVPUSH SCH (10:12)
--- NOTE | 2017-07-05 11:35 | PN ---
Progress Note (short form) - Note Progress Note: ID consult dictated imp/reccd 72 year old man with PMH of copd/chf admitted with cold symptoms with stuffy nose and cough since Tuesday, denies fevers on prednisone 20 bid at home, +ankle edema lives alone no sick contacts received influenza vaccine in April reports feeling better since coming to ED yesterday chf/copd exacerbation cannot r/o pneumonia with symptoms of increased cough and SOB-?bronchitis would screen for influenza, check legionella urinary antigen agree with empiric coverage for CAP with rocephin/zithromax Problem List - Problems (1) CHF exacerbation Code(s): I50.9 - HEART FAILURE, UNSPECIFIED Qualifiers: Congestive heart failure type: unspecified congestive heart failure type Qualified Code(s): I50.9 - Heart failure, unspecified (2) COPD exacerbation Code(s): J44.1 - CHRONIC OBSTRUCTIVE PULMONARY DISEASE W (ACUTE) EXACERBATION (3) Pneumonia Code(s): J18.9 - PNEUMONIA, UNSPECIFIED ORGANISM
--- NOTE | 2017-07-05 12:17 | CONS ---
DATE OF CONSULTATION: DATE OF DICTATION: 07/05/2017 REQUESTED BY: Mars Brothers MD HISTORY OF PRESENT ILLNESS: This is a 72-year-old gentleman who I have seen previously for bronchitis. He has a history of COPD and CHF. He has been admitted several times this year for COPD and CHF exacerbations. He over the course of this weekend developed cold-like symptoms. He felt nasal congestion, runny nose, URI symptoms. He started coughing and wheezing and needed to come to the emergency room. He denies any fevers. He denies any sick contacts. He lives alone. He is currently taking prednisone 20 mg b.i.d. PAST MEDICAL HISTORY: Notable for obstructive sleep apnea. He is on BiPAP at home. He has advanced COPD, on home oxygen, atrial fibrillation, hypertension, hyperlipidemia, CHF and GERD. He is morbidly obese. He has diastolic heart failure. SURGICAL HISTORY: Notable for tonsillectomy. SOCIAL HISTORY: He lives alone. Of note, in the past sometimes when he has trouble getting access to food he starts ordering takeout and becomes very volume overloaded. He reports he has not been eating out that much. He is a former smoker. He stopped smoking in 2010. No history of any substance use. There is no history of any recent travel. ALLERGIES: He has no known drug allergies. MEDICATIONS: Current prednisone: He reports he is taking 20 b.i.d. He is taking verapamil, tamsulosin, Janumet, Protonix, Asmanex, metformin, insulin, gabapentin, Lasix, Lanoxin, Lipitor, Eliquis. PRIMARY MEDICAL DOCTOR: Mars Brothers MD REVIEW OF SYSTEMS: He denies chest pain. He has no nausea, vomiting, diarrhea or dysuria. PHYSICAL EXAMINATION: General: He is an obese man. He is sitting out of bed in a chair. He states he feels much better than when he came in. Vital Signs: Temperature is 97.5. He has had no fever. Pulse is 119, blood pressure is 134/81, respiratory rate is 20. HEENT: He is normocephalic. His eyes are anicteric. He has no thrush. Neck: Supple. Lungs: Have scattered rhonchi throughout. Heart: Regular rate and rhythm. Abdomen: Soft, nontender. Extremities: He has trace to 1+ pretibial edema bilaterally. LABORATORY DATA: White count is 10.2, hemoglobin 12.9, platelets are 254. BUN is 19 and creatinine is 0.9. Lactic acid yesterday was 4.8 and not repeated. LFTs are normal. Blood cultures are pending. Chest x-ray is read as cardiomegaly with mild congestion. There is no acute infiltrate or effusions noted. ASSESSMENT: In summary, this is a 72-year-old man with congestive heart failure exacerbation, chronic obstructive pulmonary disease exacerbation. Cannot rule out underlying pneumonia with symptoms of cough and shortness of breath, possible bronchitis. RECOMMENDATIONS: I would screen him for influenza, though he did get the influenza vaccine in April. I would check a Legionella urinary antigen. Would agree with empiric coverage as ordered by his PMD with Rocephin and Zithromax. Further recommendations to follow. Maty [id number]
[2017-07-05] MEDS: MOMETASONE FUROATE 220 MCG/IH INHALER IH SCH (12:51)
--- NOTE | 2017-07-05 13:11 | EKG ---
Test Reason : Blood Pressure : / mmHG Vent. Rate : 123 BPM Atrial Rate : 096 BPM P-R Int : 000 ms QRS Dur : 084 ms QT Int : 292 ms P-R-T Axes : 000 042 041 degrees QTc Int : 418 ms ATRIAL FIBRILLATION WITH RAPID VENTRICULAR RESPONSE WITH PREMATURE VENTRICULAR OR ABERRANTLY CONDUCTED COMPLEXES ABNORMAL ECG WHEN COMPARED WITH ECG OF 08-MAY-2017 13:16, NO SIGNIFICANT CHANGE WAS FOUND Confirmed by MD Giles, Saran ([id number]) on 07/05/2017 1:10:59 PM Referred By: Confirmed By:Saran Skaggs MD
--- NOTE | 2017-07-05 13:23 | CON.PULM ---
Consult Consult Specialty:: PULMONARY Referred by:: TERESA Reason for Consultation:: COPD/OSAS - History of Present Illness Chief Complaint: COUGH/WHEEZE/SOB History of Present Illness: This is a 72 YOM with h/o COPD, asthma, CHF,osas (on 4 LPM 24/7 at home and on BiPAP at night, on albuterol MDI and nebulizer tx as well as Spiriva, on 20 mg Lasix daily), IDDM, HTN, and HLD who presents c/o cough and congestion over the past few days now with SOB which feels like his prior COPD exacerbations. He has been coughing up sputum and has had unchanged chronic ankle swelling with L>R for the past few days. He denies any fever, chills, nausea, vomiting, diarrhea, change in weight, lightheadness, LOC, headache, rectal bleeding, recent travel, or sick contacts. Former smoker, never intubated and has multiple admissions to hospital over the years for similiar complaints. 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 Cardio/Vascular: Yes: AFIB, HTN, Hyperlipdemia Pulmonary: Yes: COPD, O2 Dependent, Sleep Apnea Gastrointestinal: Yes: GERD Renal/: Yes: Renal Inusuff Endocrine: Yes: Other (MORBIDLY OBESE) - Past Surgical History Past Surgical History: Yes: Tonsillectomy - Alcohol/Substance Use Hx Alcohol Use: No - Smoking History Smoking history: Former smoker Have you smoked in the past 12 months: No Aproximately how many cigarettes per day: 0 If you are a former smoker, when did you quit?: 6 years ago - Social History Usual Living Arrangement: Other History of Recent Travel: No Home Medications - Allergies Allergies/Adverse Reactions: Allergies Allergy/AdvReac Type Severity Reaction Status Date / Time No Known Allergies Allergy Verified 07/04/17 12:36 - Home Medications Home Medications: Ambulatory Orders Albuterol 0.083% Nebulizer Cielo [Ventolin 0.083% Nebulizer Soln -] 1 neb NEB Q4H PRN 08/26/16 Apixaban [Eliquis] 5 mg PO BID 08/26/16 Atorvastatin Ca [Lipitor] 10 mg PO HS 08/26/16 Digoxin [Lanoxin -] 0.125 mg PO DAILY 08/26/16 Gabapentin 100 mg PO BID 08/26/16 Tamsulosin HCl [Flomax] 0.4 mg PO DAILY 08/26/16 Verapamil HCl [Verapamil ER] 240 mg PO BID 08/26/16 Furosemide [Lasix -] 40 mg PO DAILY 02/21/17 Mometasone Furoate [Asmanex 220Mcg -] 2 inh IH DAILY 03/08/17 Pantoprazole Sodium [Protonix] 40 mg PO DAILY 03/08/17 Acetaminophen [Tylenol .Regular Strength -] 650 mg PO Q6H PRN #120 tablet Insulin (Levemir) [Levemir Flexpen -] 20 units SQ BID #4 syr 04/17/17 Insulin (Novolog) [Novolog -] 0 units SQ AC #1 vial 04/17/17 Sitagliptin Phos/Metformin HCl [Janumet 50-1,000 mg Tablet] 1 each PO DAILY #30 tab 04/17/17 Metformin HCl 500 mg PO BID 07/04/17 Prednisone [Deltasone -] 20 mg PO DAILY 07/04/17 Family Disease History - Family Disease History Family History: Unremarkable Review of Systems - Review of Systems Constitutional: denies: Fever, Loss of Appetite Eyes: denies: Blurred Vision HENT: denies: Difficult Swallowing Neck: denies: Decreased ROM Cardiovascular: reports: Shortness of Breath Respiratory: reports: Cough, Exercise Intolerance, SOB, SOB on Exertion, Wheezing. denies: Hemoptysis Gastrointestinal: denies: Abdominal Pain Genitourinary: denies: Burning Physical Exam Vital Sings: Vital Signs Temperature 97.5 F L 07/04/17 19:08 Pulse Rate 79 07/05/17 09:33 Respiratory Rate 20 07/04/17 19:08 Blood Pressure 134/81 07/04/17 19:08 O2 Sat by Pulse Oximetry (%) 97 07/05/17 07:07 Constitutional: Yes: Calm Eyes: Yes: EOM Intact HENT: Yes: Normocephalic Neck: Yes: Trachea Midline Cardiovascular: Yes: Pulse Irregular, S1, S2 Respiratory: Yes: Diminished, Wheezes Gastrointestinal: Yes: Abdomen, Obese Edema: LLE: 2+, RLE: 2+ Neurological: Yes: Alert Labs: CBC, BMP 07/04/17 13:55 07/04/17 13:55 rest reviewed Imaging - Results Chest X-ray: Report Reviewed, Image Reviewed EKG: Report Reviewed, Image Reviewed Problem List - Problems (1) Sleep apnea Code(s): G47.30 - SLEEP APNEA, UNSPECIFIED (2) CHF exacerbation Code(s): I50.9 - HEART FAILURE, UNSPECIFIED Qualifiers: Congestive heart failure type: unspecified congestive heart failure type Qualified Code(s): I50.9 - Heart failure, unspecified (3) COPD exacerbation Code(s): J44.1 - CHRONIC OBSTRUCTIVE PULMONARY DISEASE W (ACUTE) EXACERBATION (4) Acute on chronic respiratory failure with hypoxemia Code(s): J96.21 - ACUTE AND CHRONIC RESPIRATORY FAILURE WITH HYPOXIA (5) Obesity hypoventilation syndrome Code(s): E66.2 - MORBID (SEVERE) OBESITY WITH ALVEOLAR HYPOVENTILATION Assessment/Plan Agree with antibiotic coverage/panculture urine antigens/influ swab o2/nippv/duoneb/short course steroids anticoagulation will followBenson MD
[2017-07-05] MEDS ORDERED: INSULIN (NOVOLOG) ASPART 100 UNITS/ML 10ML VIAL ONE (14:50)
--- NOTE | 2017-07-05 16:03 | HP ---
Admitting History and Physical - Primary Care Physician PCP: [facility] Brothers - Admission Chief Complaint: dyspnea History of Present Illness: 72 Y/O MALE HISTORY CHF,AFIB,LUCY,OBESITY,DM,HTN,ASTHMA/COPD HERE WITH SOB ELEVATED BNP COUGH WITH WHEEZES. 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 Cardiovascular: Yes: AFIB, HTN, Hyperlipdemia Pulmonary: Yes: COPD, O2 Dependent, Sleep Apnea Gastrointestinal: Yes: GERD Renal/: Yes: Renal Inusuff Endocrine: Yes: Other (MORBIDLY OBESE) - Past Surgical History Past Surgical History: Yes: Tonsillectomy - Smoking History Smoking history: Former smoker Have you smoked in the past 12 months: No Aproximately how many cigarettes per day: 0 If you are a former smoker, when did you quit?: 6 years ago - Alcohol/Substance Use Hx Alcohol Use: No - Social History History of Recent Travel: No Home Medications - Allergies Allergies/Adverse Reactions: Allergies Allergy/AdvReac Type Severity Reaction Status Date / Time No Known Allergies Allergy Verified 07/04/17 12:36 - Home Medications Home Medications: Ambulatory Orders Albuterol 0.083% Nebulizer Cielo [Ventolin 0.083% Nebulizer Soln -] 1 neb NEB Q4H PRN 08/26/16 Apixaban [Eliquis] 5 mg PO BID 08/26/16 Atorvastatin Ca [Lipitor] 10 mg PO HS 08/26/16 Digoxin [Lanoxin -] 0.125 mg PO DAILY 08/26/16 Gabapentin 100 mg PO BID 08/26/16 Tamsulosin HCl [Flomax] 0.4 mg PO DAILY 08/26/16 Verapamil HCl [Verapamil ER] 240 mg PO BID 08/26/16 Furosemide [Lasix -] 40 mg PO DAILY 02/21/17 Mometasone Furoate [Asmanex 220Mcg -] 2 inh IH DAILY 03/08/17 Pantoprazole Sodium [Protonix] 40 mg PO DAILY 03/08/17 Acetaminophen [Tylenol .Regular Strength -] 650 mg PO Q6H PRN #120 tablet Insulin (Levemir) [Levemir Flexpen -] 20 units SQ BID #4 syr 04/17/17 Insulin (Novolog) [Novolog -] 0 units SQ AC #1 vial 04/17/17 Sitagliptin Phos/Metformin HCl [Janumet 50-1,000 mg Tablet] 1 each PO DAILY #30 tab 04/17/17 Metformin HCl 500 mg PO BID 07/04/17 Prednisone [Deltasone -] 20 mg PO DAILY 07/04/17 Review of Systems - Review of Systems Constitutional: reports: Weakness Eyes: reports: No Symptoms HENT: reports: No Symptoms Neck: reports: No Symptoms Cardiovascular: reports: Shortness of Breath Respiratory: reports: Cough, Orthopnea, Snoring Gastrointestinal: reports: No Symptoms Genitourinary: reports: No Symptoms Musculoskeletal: reports: No Symptoms Integumentary: reports: No Symptoms Neurological: reports: No Symptoms Endocrine: reports: No Symptoms Hematology/Lymphatic: reports: No Symptoms Psychiatric: reports: No Symptoms Physical Examination Vital Signs: Vital Signs Temperature 97.5 F L 07/04/17 19:08 Pulse Rate 79 07/05/17 09:33 Respiratory Rate 20 07/04/17 19:08 Blood Pressure 134/81 07/04/17 19:08 O2 Sat by Pulse Oximetry (%) 97 07/05/17 07:07 Constitutional: Yes: Moderate Distress Eyes: Yes: WNL HENT: Yes: WNL Neck: Yes: WNL Cardiovascular: Yes: Pulse Irregular Respiratory: Yes: Cough, On BiPap Gastrointestinal: Yes: WNL Renal/: Yes: WNL Musculoskeletal: Yes: WNL Extremities: Yes: WNL Edema: No Peripheral Pulses WNL: Yes Integumentary: Yes: WNL Wound/Incision: Yes: Clean/Dry Neurological: Yes: WNL ...Motor Strength: WNL Psychiatric: Yes: WNL Labs: CBC, BMP 07/04/17 13:55 07/04/17 13:55 Problem List - Problems (1) CHF exacerbation Code(s): I50.9 - HEART FAILURE, UNSPECIFIED Qualifiers: Congestive heart failure type: unspecified congestive heart failure type Qualified Code(s): I50.9 - Heart failure, unspecified (2) COPD exacerbation Code(s): J44.1 - CHRONIC OBSTRUCTIVE PULMONARY DISEASE W (ACUTE) EXACERBATION (3) Obesity hypoventilation syndrome Code(s): E66.2 - MORBID (SEVERE) OBESITY WITH ALVEOLAR HYPOVENTILATION (4) Sleep apnea Code(s): G47.30 - SLEEP APNEA, UNSPECIFIED (5) Acute CHF Code(s): I50.9 - HEART FAILURE, UNSPECIFIED Qualifiers: Congestive heart failure type: unspecified congestive heart failure type Qualified Code(s): I50.9 - Heart failure, unspecified (6) Acute bronchitis with COPD Code(s): J44.0 - CHRONIC OBSTRUCTIVE PULMON DISEASE W ACUTE LOWER RESP INFCT (7) Acute chronic obstructive pulmonary disease with respiratory distress Code(s): J44.9 - CHRONIC OBSTRUCTIVE PULMONARY DISEASE, UNSPECIFIED; R06.03 - ACUTE RESPIRATORY DISTRESS (8) Asthma Code(s): J45.909 - UNSPECIFIED ASTHMA, UNCOMPLICATED Qualifiers: Asthma severity: moderate Asthma complication type: with acute exacerbation (9) Atrial fibrillation Code(s): I48.91 - UNSPECIFIED ATRIAL FIBRILLATION Qualifiers: Atrial fibrillation type: unspecified Qualified Code(s): I48.91 - Unspecified atrial fibrillation (10) Diabetes mellitus Code(s): E11.9 - TYPE 2 DIABETES MELLITUS WITHOUT COMPLICATIONS Qualifiers: Diabetes mellitus complication status: with other specified complication (11) Morbid obesity Code(s): E66.01 - MORBID (SEVERE) OBESITY DUE TO EXCESS CALORIES (12) Shortness of breath Code(s): R06.02 - SHORTNESS OF BREATH Assessment/Plan SLEEP APNEA ON BIPAP IV ABX LASIX CARDIO/PULMONARY CONSULT NEBS STEROIDS AC FOR AFIB
[2017-07-05] MEDS ORDERED: HEMOQUE TEST 1 EACH EACH ONE (17:31)
[2017-07-05] MEDS: ALBUTEROL SO4 2.5/IPRATROPIUM 0.5 INH SOL 3 ML VIAL.NEB. NEB SCH (19:00)
--- NOTE | 2017-07-05 19:20 | CON.CARD ---
Cardiology Consult (text) - Consultation Consultation Note: CC: SOB hpi: 72 yo male with h/o AFib s/p prior DCCV 12/2015 to SR on AC, HTN, HL, dchf , morbid obesity, LUCY on bipap, severe COPD, here with sob. Frequent admits for copd/chf. Recent URi sx's with cough, congestion. No f/c/s. progressive oliveira. Mild worsening of LE edema. Still with sig sx's despite bipap/copd therapy. Also s/p lasix 40 mg IV x 1. No cp, palps, dizzy, loc, pnd, orthopnea, bleeding, transient neurologic sx's. Sees dr richardson for cardio. PMH:per hpi past surg hx: Tonsillectomy Social hx: Former smoker fam hx: father with CVA ros: per hpi; no nvd, damico, muscle pain, rash, visual disturbances. meds: Ambulatory Orders Albuterol 0.083% Nebulizer Cielo [Ventolin 0.083% Nebulizer Soln -] 1 neb NEB Q4H PRN 08/26/16 Apixaban [Eliquis] 5 mg PO BID 08/26/16 Atorvastatin Ca [Lipitor] 10 mg PO HS 08/26/16 Digoxin [Lanoxin -] 0.125 mg PO DAILY 08/26/16 Gabapentin 100 mg PO BID 08/26/16 Tamsulosin HCl [Flomax] 0.4 mg PO DAILY 08/26/16 Verapamil HCl [Verapamil ER] 240 mg PO BID 08/26/16 Furosemide [Lasix -] 40 mg PO DAILY 02/21/17 Mometasone Furoate [Asmanex 220Mcg -] 2 inh IH DAILY 03/08/17 Pantoprazole Sodium [Protonix] 40 mg PO DAILY 03/08/17 Acetaminophen [Tylenol .Regular Strength -] 650 mg PO Q6H PRN #120 tablet Insulin (Levemir) [Levemir Flexpen -] 20 units SQ BID #4 syr 04/17/17 Insulin (Novolog) [Novolog -] 0 units SQ AC #1 vial 04/17/17 Sitagliptin Phos/Metformin HCl [Janumet 50-1,000 mg Tablet] 1 each PO DAILY #30 tab 04/17/17 Metformin HCl 500 mg PO BID 07/04/17 Prednisone [Deltasone -] 20 mg PO DAILY 07/04/17 Current Medications Acetaminophen (Tylenol -) 650 mg PO Q6H PRN PRN Reason: FEVER OR PAIN Last Admin: 07/05/17 04:47 Dose: 650 mg Albuterol/Ipratropium (Duoneb -) 1 amp NEB QIDR [facility] Apixaban (Eliquis -) 5 mg PO BID [facility] Last Admin: 07/05/17 09:33 Dose: 5 mg Atorvastatin Calcium (Lipitor -) 80 mg PO HS [facility] Last Admin: 07/04/17 22:47 Dose: 80 mg Azithromycin (Azithromycin) 500 mg PO DAILY [facility] Stop: 07/07/17 10:01 Last Admin: 07/05/17 09:34 Dose: 500 mg Digoxin (Lanoxin -) 0.125 mg PO DAILY [facility] Last Admin: 07/05/17 09:33 Dose: 0.125 mg Furosemide (Lasix Injection -) 80 mg IVPUSH DAILY [facility] Last Admin: 07/05/17 10:12 Dose: Not Given Gabapentin (Neurontin -) 300 mg PO TID [facility] Last Admin: 07/05/17 14:54 Dose: 300 mg Ceftriaxone Sodium 2 gm/ (Dextrose) 100 mls @ 200 mls/hr IVPB DAILY [facility] Last Admin: 07/05/17 09:36 Dose: 200 mls/hr Insulin Aspart (Novolog Vial Sliding Scale -) 1 vial SQ ACHS [facility] PRN Reason: Protocol Last Admin: 07/05/17 17:47 Dose: 4 unit Insulin Detemir (Levemir Vial) 30 units SQ BIDAC [facility] Last Admin: 07/05/17 17:47 Dose: 30 unit Metformin HCl (Glucophage -) 500 mg PO BID@0700,1630 [facility] Last Admin: 07/05/17 17:48 Dose: 500 mg Methylprednisolone Sodium Succinate (Solu-Medrol -) 40 mg IVPUSH Q8H-IV [facility] Last Admin: 07/05/17 17:49 Dose: 40 mg Mometasone Furoate (Asmanex 220mcg -) 2 puff IH DAILY [facility] Last Admin: 07/05/17 12:51 Dose: 2 puff Pantoprazole Sodium (Protonix -) 40 mg PO DAILY [facility] Last Admin: 07/05/17 10:11 Dose: 40 mg Sitagliptin Phosphate (Januvia -) 50 mg PO ACBK [facility] Last Admin: 07/05/17 09:32 Dose: Not Given Tamsulosin HCl (Flomax -) 0.4 mg PO DAILY@0830 [facility] Last Admin: 07/05/17 09:34 Dose: 0.4 mg Verapamil HCl (Calan Sr -) 240 mg PO DAILY [facility] Last Admin: 07/05/17 09:35 Dose: 240 mg pe: Vital Signs - 24 hr 07/05/17 07/05/17 07/05/17 01:14 07:07 09:00 Pulse Rate Respiratory 20 Rate O2 Sat by Pulse 97 97 98 Oximetry (%) 07/05/17 07/05/17 09:33 12:00 Pulse Rate 79 Respiratory Rate O2 Sat by Pulse 96 Oximetry (%) Intake & Output 07/03/17 07/04/17 07/05/17 07/06/17 07:59 07:59 07:59 07:59 Intake Total 750 Balance 750 Weight 325 lb NAD, calm JVD difficult to assess due to size, neck supple dec air movment bl, + diffuse wheezes, nl effort Irregularly, irregular nl s1, s2 no m/r/g + bs soft obese nt nd ext with trace-1+ edema. no cyanosis or clubbing + dp/pt no carotid bruits no jaundice, diaphoresis. aaox3 CBC, BMP 07/04/17 13:55 07/04/17 13:55 Laboratory Tests 07/04/17 07/04/17 07/04/17 13:55 13:55 13:55 Lactic Acid 2.4 H* Total Bilirubin 0.5 AST 10 L ALT 42 D Alkaline Phosphatase 87 Creatine Kinase 55 Troponin I < 0.02 B-Natriuretic Peptide 227.53 H Albumin 3.4 07/04/17 19:06 Lactic Acid 4.8 H* Total Bilirubin AST ALT Alkaline Phosphatase Creatine Kinase Troponin I B-Natriuretic Peptide Albumin EKG: afib, 123 bpm. PVC. No ischemic changes. cxr: mild congestive changes. echo 07/2016: Nl lv/rv. 1+ AR mibi 12/2012: small posterior ischemia vs artifact, nl lvef, no tid a/p: 72 yo male with h/o AFib s/p prior DCCV 12/2015 to SR on AC, HTN, HL, dchf , PVCs with palpitations, morbid obesity, LUCY on bipap, severe COPD, here with sob. sob, copd: - has tendency towards volume retention felicia when receives steroids for copd exacerbation - vol status appears secondary, recent uri sx's and diffuse wheezes. copd likely cause of current sob. However, in light of worsened LE edema and congestion on cxr --> con't lasix 80 mg IV daily - copd/lucy tx per pulm acute on chronic diastolic chf: - IV lasix as above. - daily weight, bmp , I/O's paroxysmal AF/flutter -cont eliquis for AC -new dx 2015--req'd amio for HR control then (now off due to severe lung dz), s/ p successful DCCV 12/24, then reverted to afib -rate has been adequately controlled with the combo of calan and dig. But typically becomes elevated in settings of respiratory distress. con't verapamil , dig. Ongoing diureseis and mgm't of copd per pulm/pmd -avoiding BB given severe bronchospasm/copd; would like to avoid long-term amio for same reason hld: -continue home statin htn: -stable on current meds possible cad: -pt had borderline positive mibi in 2012 vs soft tissue attenuation artifact -never had angina sx's -no signs acs here -continue medical management with statin, AC without ASA
[2017-07-05] MEDS: ATORVASTATIN CA 80 MG TABLET (FP) PO SCH (21:52)
[2017-07-05 23:37] VITALS: BMI 45.4
[2017-07-06] MEDS: methylPREDNISolone NA SUCC 40 MG/1 ML VIAL IVPUSH SCH ×3 (01:19→18:21)
[2017-07-06] MEDS: GABAPENTIN 300 MG CAPSULE (FP) PO SCH ×3 (05:55→23:22)
[2017-07-06] MEDS: metFORMIN HCL 500 MG TABLET (FP) PO SCH ×2 (06:06→16:43)
[2017-07-06] MEDS: INSULIN DETEMIR 100 UNITS/ML MDV SQ SCH ×2 (06:07→16:44)
[2017-07-06] MEDS: sitaGLIPtin PHOSPHATE 50 MG TABLET PO SCH (06:07)
[2017-07-06] MEDS: INSULIN SLIDING SCALE (NOVOLOG) 1 VIAL SQ SCH ×4 (06:08→23:20)
[2017-07-06] MEDS: ALBUTEROL SO4 2.5/IPRATROPIUM 0.5 INH SOL 3 ML VIAL.NEB. NEB SCH ×5 (06:54→17:51)
[2017-07-06 09:04] LABS: ANION GAP 12 (8-16); BLOOD UREA NITROGEN 21 mg/dL (7-18); CALCIUM 8.4 mg/dL (8.5-10.1); CHLORIDE 104 mmol/L (98-107); CO2 24 mmol/L (21-32); CREATININE 0.9 mg/dL (0.7-1.3); GLUCOSE,RANDOM 280 mg/dL (74-106); MAGNESIUM 1.8 mg/dL (1.8-2.4); POTASSIUM 4.4 mmol/L (3.5-5.1); SODIUM 140 mmol/L (136-145)
[2017-07-06] MEDS ORDERED: PT OWN MED DRAWER 7, Y5N ONE (09:09)
[2017-07-06] MEDS: DIGOXIN 0.125 MG TABLET (FP) PO SCH (09:25)
[2017-07-06] MEDS: VERAPAMIL HCL 240 MG E.R. TABLET (FP) PO SCH (09:25)
[2017-07-06] MEDS: PANTOPRAZOLE 40 MG TABLET (FP) PO SCH (09:25)
[2017-07-06] MEDS: TAMSULOSIN HCL 0.4 MG CAP.ER.24H (FP) PO SCH (09:26)
[2017-07-06] MEDS: APIXABAN 5 MG TABLET PO SCH ×2 (09:26→23:22)
[2017-07-06] MEDS: AZITHROMYCIN 500 MG TABLET PO SCH (09:27)
[2017-07-06] MEDS: MOMETASONE FUROATE 220 MCG/IH INHALER IH SCH (09:28)
[2017-07-06] MEDS: FUROSEMIDE 100 MG/10 ML INJECTABLE VIAL IVPUSH SCH (09:28)
[2017-07-06] MEDS: CEFTRIAXONE 2 GM in DEXTROSE 5%-WATER - 100 ML IVPB SCH (11:13)
--- NOTE | 2017-07-06 11:20 | PN ---
Progress Note, Physician Chief Complaint: awake alert in bipap still in distress - Current Medication List Current Medications: Active Medications Acetaminophen (Tylenol -) 650 mg PO Q6H PRN PRN Reason: FEVER OR PAIN Last Admin: 07/05/17 04:47 Dose: 650 mg Albuterol/Ipratropium (Duoneb -) 1 amp NEB QIDR [facility] Last Admin: 07/06/17 07:46 Dose: Not Given Apixaban (Eliquis -) 5 mg PO BID [facility] Last Admin: 07/06/17 09:26 Dose: 5 mg Atorvastatin Calcium (Lipitor -) 80 mg PO HS [facility] Last Admin: 07/05/17 21:52 Dose: 80 mg Azithromycin (Azithromycin) 500 mg PO DAILY [facility] Stop: 07/07/17 10:01 Last Admin: 07/06/17 09:27 Dose: 500 mg Digoxin (Lanoxin -) 0.125 mg PO DAILY [facility] Last Admin: 07/06/17 09:25 Dose: 0.125 mg Furosemide (Lasix Injection -) 80 mg IVPUSH DAILY [facility] Last Admin: 07/06/17 09:28 Dose: 80 mg Gabapentin (Neurontin -) 300 mg PO TID [facility] Last Admin: 07/06/17 05:55 Dose: 300 mg Ceftriaxone Sodium 2 gm/ (Dextrose) 100 mls @ 200 mls/hr IVPB DAILY [facility] Last Admin: 07/06/17 11:13 Dose: 200 mls/hr Insulin Aspart (Novolog Vial Sliding Scale -) 1 vial SQ ACHS [facility] PRN Reason: Protocol Last Admin: 07/06/17 11:14 Dose: 8 unit Insulin Detemir (Levemir Vial) 30 units SQ BIDAC [facility] Last Admin: 07/06/17 06:07 Dose: 30 unit Metformin HCl (Glucophage -) 500 mg PO BID@0700,1630 [facility] Last Admin: 07/06/17 06:06 Dose: 500 mg Methylprednisolone Sodium Succinate (Solu-Medrol -) 40 mg IVPUSH Q8H-IV [facility] Last Admin: 07/06/17 09:23 Dose: 40 mg Mometasone Furoate (Asmanex 220mcg -) 2 puff IH DAILY [facility] Last Admin: 07/06/17 09:28 Dose: 2 puff Pantoprazole Sodium (Protonix -) 40 mg PO DAILY [facility] Last Admin: 07/06/17 09:25 Dose: 40 mg Sitagliptin Phosphate (Januvia -) 50 mg PO ACBK [facility] Last Admin: 07/06/17 06:07 Dose: 50 mg Tamsulosin HCl (Flomax -) 0.4 mg PO DAILY@0830 [facility] Last Admin: 07/06/17 09:26 Dose: 0.4 mg Verapamil HCl (Calan Sr -) 240 mg PO DAILY [facility] Last Admin: 07/06/17 09:25 Dose: 240 mg - Objective Vital Signs: Vital Signs Temperature 97.8 F 07/06/17 06:00 Pulse Rate 82 07/06/17 09:25 Respiratory Rate 22 07/06/17 06:00 Blood Pressure 132/74 07/06/17 06:00 O2 Sat by Pulse Oximetry (%) 98 07/05/17 22:00 Constitutional: Yes: Mild Distress Eyes: Yes: WNL HENT: Yes: WNL Neck: Yes: WNL Cardiovascular: Yes: Pulse Irregular Respiratory: Yes: On BiPap, Poor Air Entry Gastrointestinal: Yes: WNL Genitourinary: Yes: WNL Musculoskeletal: Yes: WNL Extremities: Yes: WNL Edema: Yes Peripheral Pulses WNL: Yes Integumentary: Yes: WNL Wound/Incision: Yes: Clean/Dry Neurological: Yes: WNL ...Motor Strength: WNL Psychiatric: Yes: WNL Labs: CBC, BMP 07/04/17 13:55 07/06/17 08:00 Problem List - Problems (1) CHF exacerbation Code(s): I50.9 - HEART FAILURE, UNSPECIFIED Qualifiers: Congestive heart failure type: unspecified congestive heart failure type Qualified Code(s): I50.9 - Heart failure, unspecified (2) COPD exacerbation Code(s): J44.1 - CHRONIC OBSTRUCTIVE PULMONARY DISEASE W (ACUTE) EXACERBATION (3) Obesity hypoventilation syndrome Code(s): E66.2 - MORBID (SEVERE) OBESITY WITH ALVEOLAR HYPOVENTILATION (4) Sleep apnea Code(s): G47.30 - SLEEP APNEA, UNSPECIFIED (5) Acute CHF Code(s): I50.9 - HEART FAILURE, UNSPECIFIED Qualifiers: Congestive heart failure type: unspecified congestive heart failure type Qualified Code(s): I50.9 - Heart failure, unspecified (6) Acute bronchitis with COPD Code(s): J44.0 - CHRONIC OBSTRUCTIVE PULMON DISEASE W ACUTE LOWER RESP INFCT (7) Acute chronic obstructive pulmonary disease with respiratory distress Code(s): J44.9 - CHRONIC OBSTRUCTIVE PULMONARY DISEASE, UNSPECIFIED; R06.03 - ACUTE RESPIRATORY DISTRESS (8) Asthma Code(s): J45.909 - UNSPECIFIED ASTHMA, UNCOMPLICATED Qualifiers: Asthma severity: moderate Asthma complication type: with acute exacerbation (9) Atrial fibrillation Code(s): I48.91 - UNSPECIFIED ATRIAL FIBRILLATION Qualifiers: Atrial fibrillation type: unspecified Qualified Code(s): I48.91 - Unspecified atrial fibrillation (10) Diabetes mellitus Code(s): E11.9 - TYPE 2 DIABETES MELLITUS WITHOUT COMPLICATIONS Qualifiers: Diabetes mellitus complication status: with other specified complication (11) Morbid obesity Code(s): E66.01 - MORBID (SEVERE) OBESITY DUE TO EXCESS CALORIES (12) Shortness of breath Code(s): R06.02 - SHORTNESS OF BREATH Assessment/Plan SLEEP APNEA ON BIPAP IV ABX LASIX CARDIO/PULMONARY CONSULT NEBS STEROIDS AC FOR AFIB
--- NOTE | 2017-07-06 12:21 | PN ---
Progress Note (short form) - Note Progress Note: PULMONARY VSS/AFEBRILE ANICTERIC DISTANT B/L BREATH SOUNDS S1S2 OBESE NONTENDER LYMPHEDEMA LOWER EXT LABS/MEDS/MICRO/IMAGES REVIEWED INFLU-/URINE ANTIGENS- BLOOD CULTURES NO GROWTH - Problems (1) Sleep apnea Code(s): G47.30 - SLEEP APNEA, UNSPECIFIED (2) CHF exacerbation Code(s): I50.9 - HEART FAILURE, UNSPECIFIED Qualifiers: Congestive heart failure type: unspecified congestive heart failure type Qualified Code(s): I50.9 - Heart failure, unspecified (3) COPD exacerbation Code(s): J44.1 - CHRONIC OBSTRUCTIVE PULMONARY DISEASE W (ACUTE) EXACERBATION (4) Acute on chronic respiratory failure with hypoxemia Code(s): J96.21 - ACUTE AND CHRONIC RESPIRATORY FAILURE WITH HYPOXIA (5) Obesity hypoventilation syndrome Code(s): E66.2 - MORBID (SEVERE) OBESITY WITH ALVEOLAR HYPOVENTILATION Assessment/Plan antibiotic coverage/ o2/nippv/duoneb/short course steroids anticoagulation Benson VASQUEZ MD Problem List - Problems (1) Sleep apnea Code(s): G47.30 - SLEEP APNEA, UNSPECIFIED (2) CHF exacerbation Code(s): I50.9 - HEART FAILURE, UNSPECIFIED Qualifiers: Congestive heart failure type: unspecified congestive heart failure type Qualified Code(s): I50.9 - Heart failure, unspecified (3) COPD exacerbation Code(s): J44.1 - CHRONIC OBSTRUCTIVE PULMONARY DISEASE W (ACUTE) EXACERBATION (4) Acute on chronic respiratory failure with hypoxemia Code(s): J96.21 - ACUTE AND CHRONIC RESPIRATORY FAILURE WITH HYPOXIA (5) Obesity hypoventilation syndrome Code(s): E66.2 - MORBID (SEVERE) OBESITY WITH ALVEOLAR HYPOVENTILATION
--- NOTE | 2017-07-06 21:47 | PN ---
Progress Note (short form) - Note Progress Note: CC: SOB S: cough, congestion persists. Still with significant dyspnea. no cp, palps, dizziness. Current Medications Acetaminophen (Tylenol -) 650 mg PO Q6H PRN PRN Reason: FEVER OR PAIN Last Admin: 07/05/17 04:47 Dose: 650 mg Albuterol/Ipratropium (Duoneb -) 1 amp NEB QIDR [facility] Last Admin: 07/06/17 17:51 Dose: Not Given Apixaban (Eliquis -) 5 mg PO BID [facility] Last Admin: 07/06/17 09:26 Dose: 5 mg Atorvastatin Calcium (Lipitor -) 80 mg PO HS [facility] Last Admin: 07/05/17 21:52 Dose: 80 mg Azithromycin (Azithromycin) 500 mg PO DAILY [facility] Stop: 07/07/17 10:01 Last Admin: 07/06/17 09:27 Dose: 500 mg Digoxin (Lanoxin -) 0.125 mg PO DAILY [facility] Last Admin: 07/06/17 09:25 Dose: 0.125 mg Furosemide (Lasix Injection -) 80 mg IVPUSH DAILY [facility] Last Admin: 07/06/17 09:28 Dose: 80 mg Gabapentin (Neurontin -) 300 mg PO TID [facility] Last Admin: 07/06/17 14:36 Dose: 300 mg Ceftriaxone Sodium 2 gm/ (Dextrose) 100 mls @ 200 mls/hr IVPB DAILY [facility] Last Admin: 07/06/17 11:13 Dose: 200 mls/hr Insulin Aspart (Novolog Vial Sliding Scale -) 1 vial SQ ACHS [facility] PRN Reason: Protocol Last Admin: 07/06/17 16:45 Dose: 8 unit Insulin Detemir (Levemir Vial) 30 units SQ BIDAC [facility] Last Admin: 07/06/17 16:44 Dose: 30 unit Metformin HCl (Glucophage -) 500 mg PO BID@0700,1630 [facility] Last Admin: 07/06/17 16:43 Dose: 500 mg Methylprednisolone Sodium Succinate (Solu-Medrol -) 40 mg IVPUSH Q8H-IV [facility] Last Admin: 07/06/17 18:21 Dose: 40 mg Mometasone Furoate (Asmanex 220mcg -) 2 puff IH DAILY [facility] Last Admin: 07/06/17 09:28 Dose: 2 puff Pantoprazole Sodium (Protonix -) 40 mg PO DAILY [facility] Last Admin: 07/06/17 09:25 Dose: 40 mg Sitagliptin Phosphate (Januvia -) 50 mg PO ACBK [facility] Last Admin: 07/06/17 06:07 Dose: 50 mg Tamsulosin HCl (Flomax -) 0.4 mg PO DAILY@0830 [facility] Last Admin: 07/06/17 09:26 Dose: 0.4 mg Verapamil HCl (Calan Sr -) 240 mg PO DAILY [facility] Last Admin: 07/06/17 09:25 Dose: 240 mg Vital Signs - 24 hr 07/05/17 07/06/17 07/06/17 22:00 06:00 09:00 Temperature 97.3 F L 97.8 F Pulse Rate 90 115 H Respiratory 20 22 Rate Blood Pressure 129/82 132/74 O2 Sat by Pulse 98 96 Oximetry (%) 07/06/17 07/06/17 07/06/17 09:25 11:00 11:47 Temperature Pulse Rate 82 82 78 Respiratory 18 Rate Blood Pressure 131/86 O2 Sat by Pulse 93 L Oximetry (%) 07/06/17 07/06/17 07/06/17 15:48 17:51 19:20 Temperature 97.9 F 97.5 F L Pulse Rate 101 H 99 H Respiratory 20 20 Rate Blood Pressure 155/73 123/78 O2 Sat by Pulse 93 L Oximetry (%) Intake & Output 07/04/17 07/05/17 07/06/17 07/07/17 07:59 07:59 07:59 07:59 Intake Total 750 950 Output Total 2700 Balance 750 -1750 Weight 325 lb 327 lb 12.8 oz NAD, calm JVD difficult to assess due to size, neck supple dec air movment bl, + diffuse wheezes, nl effort Irregularly, irregular nl s1, s2 no m/r/g + bs soft obese nt nd ext with trace-1+ edema. no cyanosis or clubbing + dp/pt no carotid bruits no jaundice, diaphoresis. aaox3 CBC, BMP 07/04/17 13:55 07/06/17 08:00 EKG: afib, 123 bpm. PVC. No ischemic changes. cxr: mild congestive changes. echo 07/2016: Nl lv/rv. 1+ AR mibi 12/2012: small posterior ischemia vs artifact, nl lvef, no tid a/p: 72 yo male with h/o AFib s/p prior DCCV 12/2015 to SR on AC, HTN, HL, dchf , PVCs with palpitations, morbid obesity, LUCY on bipap, severe COPD, here with sob. sob, copd: - has tendency towards volume retention felicia when receives steroids for copd exacerbation - vol status appears secondary, recent uri sx's and diffuse wheezes. copd likely cause of current sob. However, in light of worsened LE edema and congestion on cxr --> con't lasix 80 mg IV daily - copd/lucy tx per pulm acute on chronic diastolic chf: - con't IV lasix - daily weight, bmp , I/O's paroxysmal AF/flutter -cont eliquis for AC -new dx 2015--req'd amio for HR control then (now off due to severe lung dz), s/ p successful DCCV 12/24, then reverted to afib -rate has been adequately controlled with the combo of calan and dig. But typically becomes elevated in settings of respiratory distress. con't verapamil , dig. Ongoing diureseis and mgm't of copd per pulm/pmd -avoiding BB given severe bronchospasm/copd; would like to avoid long-term amio for same reason hld: -continue home statin htn: -stable on current meds possible cad: -pt had borderline positive mibi in 2012 vs soft tissue attenuation artifact -never had angina sx's -no signs acs here -continue medical management with statin, AC without ASA
[2017-07-06] MEDS: ATORVASTATIN CA 80 MG TABLET (FP) PO SCH (23:22)
[2017-07-07] MEDS: methylPREDNISolone NA SUCC 40 MG/1 ML VIAL IVPUSH SCH ×3 (04:55→17:25)
[2017-07-07] MEDS: ALBUTEROL SO4 2.5/IPRATROPIUM 0.5 INH SOL 3 ML VIAL.NEB. NEB SCH ×5 (06:02→23:39)
[2017-07-07] MEDS: metFORMIN HCL 500 MG TABLET (FP) PO SCH ×2 (06:36→17:25)
[2017-07-07] MEDS: GABAPENTIN 300 MG CAPSULE (FP) PO SCH ×3 (06:37→22:49)
[2017-07-07] MEDS: sitaGLIPtin PHOSPHATE 50 MG TABLET PO SCH (06:39)
[2017-07-07] MEDS: INSULIN DETEMIR 100 UNITS/ML MDV SQ SCH ×2 (06:51→17:26)
[2017-07-07] MEDS: INSULIN SLIDING SCALE (NOVOLOG) 1 VIAL SQ SCH ×4 (06:51→22:50)
[2017-07-07] MEDS ORDERED: PT OWN MED DRAWER 7, Y5N ONE (09:45)
[2017-07-07] MEDS: TAMSULOSIN HCL 0.4 MG CAP.ER.24H (FP) PO SCH (09:47)
[2017-07-07] MEDS: AZITHROMYCIN 250 MG TABLET PO SCH (09:47)
[2017-07-07] MEDS: APIXABAN 5 MG TABLET PO SCH ×2 (09:47→22:49)
[2017-07-07] MEDS: PANTOPRAZOLE 40 MG TABLET (FP) PO SCH (09:47)
[2017-07-07] MEDS: VERAPAMIL HCL 240 MG E.R. TABLET (FP) PO SCH (09:47)
[2017-07-07] MEDS: DIGOXIN 0.125 MG TABLET (FP) PO SCH (09:47)
[2017-07-07] MEDS: FUROSEMIDE 100 MG/10 ML INJECTABLE VIAL IVPUSH SCH (09:48)
[2017-07-07] MEDS: MOMETASONE FUROATE 220 MCG/IH INHALER IH SCH (09:52)
[2017-07-07] MEDS: CEFTRIAXONE 2 GM in DEXTROSE 5%-WATER - 100 ML IVPB SCH (13:21)
[2017-07-07] MEDS: SODIUM CHLORIDE NASAL SPRAY 44 ML BOTTLE NS PRN (14:43)
[2017-07-07] MEDS: FLUTICASONE PROP 0.05% 16 GM NASAL SPRAY NS SCH (14:45)
--- NOTE | 2017-07-07 14:49 | PN ---
Progress Note (short form) - Note Progress Note: PULMONARY SITTING UP IN BED USING BIPAP VSS/AFEBRILE ANICTERIC DISTANT B/L BREATH SOUNDS S1S2 OBESE NONTENDER LYMPHEDEMA LOWER EXT LABS/MEDS/MICRO/IMAGES REVIEWED INFLU-/URINE ANTIGENS- BLOOD CULTURES NO GROWTH - Problems (1) Sleep apnea Code(s): G47.30 - SLEEP APNEA, UNSPECIFIED (2) CHF exacerbation Code(s): I50.9 - HEART FAILURE, UNSPECIFIED Qualifiers: Congestive heart failure type: unspecified congestive heart failure type Qualified Code(s): I50.9 - Heart failure, unspecified (3) COPD exacerbation Code(s): J44.1 - CHRONIC OBSTRUCTIVE PULMONARY DISEASE W (ACUTE) EXACERBATION (4) Acute on chronic respiratory failure with hypoxemia Code(s): J96.21 - ACUTE AND CHRONIC RESPIRATORY FAILURE WITH HYPOXIA (5) Obesity hypoventilation syndrome Code(s): E66.2 - MORBID (SEVERE) OBESITY WITH ALVEOLAR HYPOVENTILATION Assessment/Plan antibiotic coverage/ o2/nippv/duoneb/short course steroids anticoagulation Benson VASQUEZ MD Problem List - Problems (1) Sleep apnea Code(s): G47.30 - SLEEP APNEA, UNSPECIFIED (2) CHF exacerbation Code(s): I50.9 - HEART FAILURE, UNSPECIFIED Qualifiers: Congestive heart failure type: unspecified congestive heart failure type Qualified Code(s): I50.9 - Heart failure, unspecified (3) COPD exacerbation Code(s): J44.1 - CHRONIC OBSTRUCTIVE PULMONARY DISEASE W (ACUTE) EXACERBATION (4) Acute on chronic respiratory failure with hypoxemia Code(s): J96.21 - ACUTE AND CHRONIC RESPIRATORY FAILURE WITH HYPOXIA (5) Obesity hypoventilation syndrome Code(s): E66.2 - MORBID (SEVERE) OBESITY WITH ALVEOLAR HYPOVENTILATION
--- NOTE | 2017-07-07 14:53 | PN ---
Progress Note (short form) - Note Progress Note: stilll with cough and chest congestion Vital Signs Period Temp Pulse Resp BP Sys/Park Pulse Ox Last 24 Hr 97.5 F-98 F 96-120 20-20 123-155/69-80 93-97 cor-rrr lulngs bilateral wheezing and rhonchi abd soft,nt ext trace pretibial edema CBC, BMP 07/04/17 13:55 07/06/17 08:00 Microbiology 07/04/17 13:55 Blood Culture - Preliminary Blood - Peripheral Venous NO GROWTH OBTAINED AFTER 72 HOURS, INCUBATION TO CONTINUE FOR 2 DAYS. 07/04/17 13:55 Blood Culture - Preliminary Blood - Peripheral Venous NO GROWTH OBTAINED AFTER 72 HOURS, INCUBATION TO CONTINUE FOR 2 DAYS. imp/reccd 72 year old man with PMH of copd/chf admitted with cold symptoms with stuffy nose and cough since Tuesday, denies fevers chf/copd exacerbation cannot r/o pneumonia with symptoms of increased cough and SOB-?bronchitis continue rocephin/zithromax legionella urinary antigen is negative Problem List - Problems (1) CHF exacerbation Code(s): I50.9 - HEART FAILURE, UNSPECIFIED Qualifiers: Congestive heart failure type: unspecified congestive heart failure type Qualified Code(s): I50.9 - Heart failure, unspecified (2) COPD exacerbation Code(s): J44.1 - CHRONIC OBSTRUCTIVE PULMONARY DISEASE W (ACUTE) EXACERBATION (3) Pneumonia Code(s): J18.9 - PNEUMONIA, UNSPECIFIED ORGANISM
--- NOTE | 2017-07-07 15:11 | PN ---
Progress Note, Physician Chief Complaint: AWAKE ALERT C/O SOB NASAL CONGESTION - Current Medication List Current Medications: Active Medications Acetaminophen (Tylenol -) 650 mg PO Q6H PRN PRN Reason: FEVER OR PAIN Last Admin: 07/05/17 04:47 Dose: 650 mg Albuterol/Ipratropium (Duoneb -) 1 amp NEB QIDR [facility] Last Admin: 07/07/17 11:27 Dose: 1 amp Apixaban (Eliquis -) 5 mg PO BID [facility] Last Admin: 07/07/17 09:47 Dose: 5 mg Atorvastatin Calcium (Lipitor -) 80 mg PO HS [facility] Last Admin: 07/06/17 23:22 Dose: 80 mg Azithromycin (Zithromax -) 250 mg PO DAILY [facility] Last Admin: 07/07/17 09:47 Dose: 250 mg Digoxin (Lanoxin -) 0.125 mg PO DAILY [facility] Last Admin: 07/07/17 09:47 Dose: 0.125 mg Fluticasone Propionate (Flonase -) 2 spray NS DAILY [facility] Last Admin: 07/07/17 14:45 Dose: 2 sprays Furosemide (Lasix Injection -) 80 mg IVPUSH DAILY [facility] Last Admin: 07/07/17 09:48 Dose: 80 mg Gabapentin (Neurontin -) 300 mg PO TID [facility] Last Admin: 07/07/17 14:45 Dose: 300 mg Ceftriaxone Sodium 2 gm/ (Dextrose) 100 mls @ 200 mls/hr IVPB DAILY [facility] Stop: 07/07/17 16:00 Last Admin: 07/07/17 13:21 Dose: 200 mls/hr CEFTRIAXONE IN IS-OSM DEXTROSE (Ceftriaxone 2 Gm-D5w Bag) 2 gm in 50 mls @ 100 mls/hr IVPB DAILY [facility] Stop: 07/09/17 10:29 Insulin Aspart (Novolog Vial Sliding Scale -) 1 vial SQ ACHS [facility] PRN Reason: Protocol Last Admin: 07/07/17 12:30 Dose: 8 unit Insulin Detemir (Levemir Vial) 30 units SQ BIDAC [facility] Last Admin: 07/07/17 06:51 Dose: 30 unit Metformin HCl (Glucophage -) 500 mg PO BID@0700,1630 [facility] Last Admin: 07/07/17 06:36 Dose: 500 mg Methylprednisolone Sodium Succinate (Solu-Medrol -) 40 mg IVPUSH Q8H-IV [facility] Last Admin: 07/07/17 09:47 Dose: 40 mg Mometasone Furoate (Asmanex 220mcg -) 2 puff IH DAILY [facility] Last Admin: 07/07/17 09:52 Dose: 2 puff Pantoprazole Sodium (Protonix -) 40 mg PO DAILY [facility] Last Admin: 07/07/17 09:47 Dose: 40 mg Sitagliptin Phosphate (Januvia -) 50 mg PO ACBK [facility] Last Admin: 07/07/17 06:39 Dose: 50 mg Sodium Chloride ([place] Nasal [place] -) 2 spray NS TID PRN PRN Reason: NASAL CONGESTION Last Admin: 07/07/17 14:43 Dose: 2 sprays Tamsulosin HCl (Flomax -) 0.4 mg PO DAILY@0830 [facility] Last Admin: 07/07/17 09:47 Dose: 0.4 mg Verapamil HCl (Calan Sr -) 240 mg PO DAILY [facility] Last Admin: 07/07/17 09:47 Dose: 240 mg - Objective Vital Signs: Vital Signs Temperature 98 F 07/07/17 06:00 Pulse Rate 96 H 07/07/17 11:22 Respiratory Rate 20 07/07/17 06:00 Blood Pressure 124/80 07/07/17 06:00 O2 Sat by Pulse Oximetry (%) 94 L 07/07/17 11:22 Constitutional: Yes: Moderate Distress Eyes: Yes: WNL HENT: Yes: WNL Neck: Yes: WNL Cardiovascular: Yes: Pulse Irregular Respiratory: Yes: Diminished, On Nasal O2, Poor Air Entry, Rhonchi Gastrointestinal: Yes: WNL Genitourinary: Yes: WNL Musculoskeletal: Yes: WNL Extremities: Yes: WNL Edema: Yes Peripheral Pulses WNL: Yes Integumentary: Yes: WNL Wound/Incision: Yes: Clean/Dry Neurological: Yes: WNL ...Motor Strength: WNL Psychiatric: Yes: WNL Labs: CBC, BMP 07/04/17 13:55 07/06/17 08:00 Problem List - Problems (1) CHF exacerbation Code(s): I50.9 - HEART FAILURE, UNSPECIFIED Qualifiers: Congestive heart failure type: unspecified congestive heart failure type Qualified Code(s): I50.9 - Heart failure, unspecified (2) COPD exacerbation Code(s): J44.1 - CHRONIC OBSTRUCTIVE PULMONARY DISEASE W (ACUTE) EXACERBATION (3) Obesity hypoventilation syndrome Code(s): E66.2 - MORBID (SEVERE) OBESITY WITH ALVEOLAR HYPOVENTILATION (4) Sleep apnea Code(s): G47.30 - SLEEP APNEA, UNSPECIFIED (5) Acute CHF Code(s): I50.9 - HEART FAILURE, UNSPECIFIED Qualifiers: Congestive heart failure type: unspecified congestive heart failure type Qualified Code(s): I50.9 - Heart failure, unspecified (6) Acute bronchitis with COPD Code(s): J44.0 - CHRONIC OBSTRUCTIVE PULMON DISEASE W ACUTE LOWER RESP INFCT (7) Acute chronic obstructive pulmonary disease with respiratory distress Code(s): J44.9 - CHRONIC OBSTRUCTIVE PULMONARY DISEASE, UNSPECIFIED; R06.03 - ACUTE RESPIRATORY DISTRESS (8) Asthma Code(s): J45.909 - UNSPECIFIED ASTHMA, UNCOMPLICATED Qualifiers: Asthma severity: moderate Asthma complication type: with acute exacerbation (9) Atrial fibrillation Code(s): I48.91 - UNSPECIFIED ATRIAL FIBRILLATION Qualifiers: Atrial fibrillation type: unspecified Qualified Code(s): I48.91 - Unspecified atrial fibrillation (10) Diabetes mellitus Code(s): E11.9 - TYPE 2 DIABETES MELLITUS WITHOUT COMPLICATIONS Qualifiers: Diabetes mellitus complication status: with other specified complication (11) Morbid obesity Code(s): E66.01 - MORBID (SEVERE) OBESITY DUE TO EXCESS CALORIES (12) Shortness of breath Code(s): R06.02 - SHORTNESS OF BREATH Assessment/Plan IV STEROIDS NEBS NASAL STEROIDS ON AC FOR AFIB OBESITTY AND DM DISCUSSED WEIGHT LOSS UNABLE TO EXERCISE BECAUSE OF COPD/AFIB
[2017-07-07] MEDS ORDERED: INSULIN DETEMIR 100 UNITS/ML MDV SQ ONE (18:31)
[2017-07-07] MEDS: ATORVASTATIN CA 80 MG TABLET (FP) PO SCH (22:50)
[2017-07-08] MEDS: methylPREDNISolone NA SUCC 40 MG/1 ML VIAL IVPUSH SCH ×3 (03:47→18:04)
[2017-07-08] MEDS: ALBUTEROL SO4 2.5/IPRATROPIUM 0.5 INH SOL 3 ML VIAL.NEB. NEB SCH ×4 (05:08→23:40)
[2017-07-08] MEDS: GABAPENTIN 300 MG CAPSULE (FP) PO SCH ×3 (06:37→22:33)
[2017-07-08] MEDS: sitaGLIPtin PHOSPHATE 50 MG TABLET PO SCH (06:37)
[2017-07-08] MEDS: INSULIN DETEMIR 100 UNITS/ML MDV SQ SCH ×2 (06:37→16:48)
[2017-07-08] MEDS: metFORMIN HCL 500 MG TABLET (FP) PO SCH ×2 (06:37→16:47)
[2017-07-08] MEDS: INSULIN SLIDING SCALE (NOVOLOG) 1 VIAL SQ SCH ×4 (06:38→22:33)
[2017-07-08] MEDS: APIXABAN 5 MG TABLET PO SCH ×2 (09:59→22:33)
[2017-07-08] MEDS: VERAPAMIL HCL 240 MG E.R. TABLET (FP) PO SCH (09:59)
[2017-07-08] MEDS: DIGOXIN 0.125 MG TABLET (FP) PO SCH (09:59)
[2017-07-08] MEDS: TAMSULOSIN HCL 0.4 MG CAP.ER.24H (FP) PO SCH (09:59)
[2017-07-08] MEDS: PANTOPRAZOLE 40 MG TABLET (FP) PO SCH (09:59)
[2017-07-08] MEDS: FUROSEMIDE 100 MG/10 ML INJECTABLE VIAL IVPUSH SCH (09:59)
[2017-07-08] MEDS: SODIUM CHLORIDE NASAL SPRAY 44 ML BOTTLE NS PRN (10:00)
[2017-07-08] MEDS: MOMETASONE FUROATE 220 MCG/IH INHALER IH SCH (10:00)
[2017-07-08] MEDS: FLUTICASONE PROP 0.05% 16 GM NASAL SPRAY NS SCH (10:00)
[2017-07-08] MEDS: AZITHROMYCIN 250 MG TABLET PO SCH (10:02)
[2017-07-08] MEDS: CEFTRIAXONE IN IS-OSM DEXTROSE 2 GM/50 ML BAG IVPB SCH ×2 (10:03→10:08)
--- NOTE | 2017-07-08 10:28 | PN ---
Progress Note, Physician Chief Complaint: AWAKE SOB STILL RAPID TACHYCARDIA - Current Medication List Current Medications: Active Medications Acetaminophen (Tylenol -) 650 mg PO Q6H PRN PRN Reason: FEVER OR PAIN Last Admin: 07/05/17 04:47 Dose: 650 mg Albuterol/Ipratropium (Duoneb -) 1 amp NEB QIDR [facility] Last Admin: 07/08/17 05:08 Dose: 1 amp Apixaban (Eliquis -) 5 mg PO BID [facility] Last Admin: 07/08/17 09:59 Dose: 5 mg Atorvastatin Calcium (Lipitor -) 80 mg PO HS [facility] Last Admin: 07/07/17 22:50 Dose: 80 mg Azithromycin (Zithromax -) 250 mg PO DAILY [facility] Last Admin: 07/08/17 10:02 Dose: 250 mg Digoxin (Lanoxin -) 0.125 mg PO DAILY [facility] Last Admin: 07/08/17 09:59 Dose: 0.125 mg Fluticasone Propionate (Flonase -) 2 spray NS DAILY [facility] Last Admin: 07/08/17 10:00 Dose: 2 sprays Furosemide (Lasix Injection -) 80 mg IVPUSH DAILY [facility] Last Admin: 07/08/17 09:59 Dose: 80 mg Gabapentin (Neurontin -) 300 mg PO TID [facility] Last Admin: 07/08/17 06:37 Dose: 300 mg CEFTRIAXONE IN IS-OSM DEXTROSE (Ceftriaxone 2 Gm-D5w Bag) 2 gm in 50 mls @ 100 mls/hr IVPB DAILY [facility] Stop: 07/09/17 10:29 Last Admin: 07/08/17 10:08 Dose: 100 mls/hr Insulin Aspart (Novolog Vial Sliding Scale -) 1 vial SQ ACHS [facility] PRN Reason: Protocol Last Admin: 07/08/17 06:38 Dose: 6 unit Insulin Detemir (Levemir Vial) 30 units SQ BIDAC [facility] Last Admin: 07/08/17 06:37 Dose: 30 unit Metformin HCl (Glucophage -) 500 mg PO BID@0700,1630 [facility] Last Admin: 07/08/17 06:37 Dose: 500 mg Methylprednisolone Sodium Succinate (Solu-Medrol -) 40 mg IVPUSH Q8H-IV [facility] Last Admin: 07/08/17 09:59 Dose: 40 mg Mometasone Furoate (Asmanex 220mcg -) 2 puff IH DAILY [facility] Last Admin: 07/08/17 10:00 Dose: 2 puff Pantoprazole Sodium (Protonix -) 40 mg PO DAILY [facility] Last Admin: 07/08/17 09:59 Dose: 40 mg Sitagliptin Phosphate (Januvia -) 50 mg PO ACBK [facility] Last Admin: 07/08/17 06:37 Dose: 50 mg Sodium Chloride ([place] Nasal [place] -) 2 spray NS TID PRN PRN Reason: NASAL CONGESTION Last Admin: 07/08/17 10:00 Dose: 2 sprays Tamsulosin HCl (Flomax -) 0.4 mg PO DAILY@0830 [facility] Last Admin: 07/08/17 09:59 Dose: 0.4 mg Verapamil HCl (Calan Sr -) 240 mg PO DAILY [facility] Last Admin: 07/08/17 09:59 Dose: 240 mg - Objective Vital Signs: Vital Signs Temperature 97.2 F L 07/08/17 06:00 Pulse Rate 112 H 07/08/17 09:59 Respiratory Rate 20 07/08/17 06:00 Blood Pressure 114/80 07/08/17 06:00 O2 Sat by Pulse Oximetry (%) 96 07/08/17 05:07 Constitutional: Yes: Mild Distress Eyes: Yes: WNL HENT: Yes: WNL Neck: Yes: WNL Cardiovascular: Yes: Tachycardia, Pulse Irregular Respiratory: Yes: Cough, On Venti-Mask, Poor Air Entry Gastrointestinal: Yes: WNL Genitourinary: Yes: WNL Musculoskeletal: Yes: WNL Extremities: Yes: WNL Edema: Yes Peripheral Pulses WNL: Yes Integumentary: Yes: WNL Wound/Incision: Yes: Clean/Dry Neurological: Yes: WNL ...Motor Strength: WNL Psychiatric: Yes: WNL Labs: CBC, BMP 07/04/17 13:55 07/06/17 08:00 Problem List - Problems (1) CHF exacerbation Code(s): I50.9 - HEART FAILURE, UNSPECIFIED Qualifiers: Congestive heart failure type: unspecified congestive heart failure type Qualified Code(s): I50.9 - Heart failure, unspecified (2) COPD exacerbation Code(s): J44.1 - CHRONIC OBSTRUCTIVE PULMONARY DISEASE W (ACUTE) EXACERBATION (3) Obesity hypoventilation syndrome Code(s): E66.2 - MORBID (SEVERE) OBESITY WITH ALVEOLAR HYPOVENTILATION (4) Sleep apnea Code(s): G47.30 - SLEEP APNEA, UNSPECIFIED (5) Acute CHF Code(s): I50.9 - HEART FAILURE, UNSPECIFIED Qualifiers: Congestive heart failure type: unspecified congestive heart failure type Qualified Code(s): I50.9 - Heart failure, unspecified (6) Acute bronchitis with COPD Code(s): J44.0 - CHRONIC OBSTRUCTIVE PULMON DISEASE W ACUTE LOWER RESP INFCT (7) Acute chronic obstructive pulmonary disease with respiratory distress Code(s): J44.9 - CHRONIC OBSTRUCTIVE PULMONARY DISEASE, UNSPECIFIED; R06.03 - ACUTE RESPIRATORY DISTRESS (8) Asthma Code(s): J45.909 - UNSPECIFIED ASTHMA, UNCOMPLICATED Qualifiers: Asthma severity: moderate Asthma complication type: with acute exacerbation (9) Atrial fibrillation Code(s): I48.91 - UNSPECIFIED ATRIAL FIBRILLATION Qualifiers: Atrial fibrillation type: unspecified Qualified Code(s): I48.91 - Unspecified atrial fibrillation (10) Diabetes mellitus Code(s): E11.9 - TYPE 2 DIABETES MELLITUS WITHOUT COMPLICATIONS Qualifiers: Diabetes mellitus complication status: with other specified complication (11) Morbid obesity Code(s): E66.01 - MORBID (SEVERE) OBESITY DUE TO EXCESS CALORIES (12) Shortness of breath Code(s): R06.02 - SHORTNESS OF BREATH Assessment/Plan TRANSFER TO TELEMETRY CARDIO F/U CHECK DIGOXIN LEVEL LABS CBC.SMA.MAGNESIUM LEVEL IV STEROIDS NEBS NASAL STEROIDS ON AC FOR AFIB OBESITTY AND DM DISCUSSED WEIGHT LOSS UNABLE TO EXERCISE BECAUSE OF COPD/AFIB
[2017-07-08 11:10] LABS: HEMATOCRIT 42.8 % (35.4-49); HEMOGLOBIN 13.1 GM/dL (11.7-16.9); MCH 25.4 pg (25.7-33.7); MCHC 30.5 g/dl (32.0-35.9); MEAN CELL VOLUME 83.3 fl (80-96); MEAN PLT VOLUME 8.4 fl (7.5-11.1); PLATELET COUNT 277 K/MM3 (134-434); RBC 5.14 M/mm3 (4.00-5.60); RDW 21.6 % (11.9-15.9)
[2017-07-08 11:45] LABS: ALBUMIN 3.4 g/dl (3.4-5.0); ANION GAP 7 (8-16); BLOOD UREA NITROGEN 22 mg/dL (7-18); CALCIUM 9.3 mg/dL (8.5-10.1); CHLORIDE 99 mmol/L (98-107); CO2 31 mmol/L (21-32); CREATININE 1.1 mg/dL (0.7-1.3); GLUCOSE,RANDOM 290 mg/dL (74-106); MAGNESIUM 2.2 mg/dL (1.8-2.4); POTASSIUM 4.3 mmol/L (3.5-5.1); SGOT/AST 12 U/L (15-37); SGPT/ALT 47 U/L (12-78); SODIUM 137 mmol/L (136-145); TOT PROT 6.8 g/dl (6.4-8.2)
[2017-07-08 11:56] LABS: ALK PHOS 94 U/L (45-117)
--- NOTE | 2017-07-08 12:28 | PN ---
Progress Note (short form) - Note Progress Note: PULMONARY RESTING IN BED USING BIPAP EPISODE OF AF WITH RVR VSS/AFEBRILE ANICTERIC DISTANT B/L BREATH SOUNDS S1S2 IRREGULAR OBESE NONTENDER LYMPHEDEMA LOWER EXT LABS/MEDS/MICRO/IMAGES REVIEWED INFLU-/URINE ANTIGENS- BLOOD CULTURES NO GROWTH - Problems (1) Sleep apnea Code(s): G47.30 - SLEEP APNEA, UNSPECIFIED (2) CHF exacerbation Code(s): I50.9 - HEART FAILURE, UNSPECIFIED Qualifiers: Congestive heart failure type: unspecified congestive heart failure type Qualified Code(s): I50.9 - Heart failure, unspecified (3) COPD exacerbation Code(s): J44.1 - CHRONIC OBSTRUCTIVE PULMONARY DISEASE W (ACUTE) EXACERBATION (4) Acute on chronic respiratory failure with hypoxemia Code(s): J96.21 - ACUTE AND CHRONIC RESPIRATORY FAILURE WITH HYPOXIA (5) Obesity hypoventilation syndrome Code(s): E66.2 - MORBID (SEVERE) OBESITY WITH ALVEOLAR HYPOVENTILATION Assessment/Plan antibiotic coverage/ o2/nippv/duoneb/short course steroids anticoagulation will observe on Tele cardio follow up Benson VASQUEZ MD Problem List - Problems (1) Sleep apnea Code(s): G47.30 - SLEEP APNEA, UNSPECIFIED (2) CHF exacerbation Code(s): I50.9 - HEART FAILURE, UNSPECIFIED Qualifiers: Congestive heart failure type: unspecified congestive heart failure type Qualified Code(s): I50.9 - Heart failure, unspecified (3) COPD exacerbation Code(s): J44.1 - CHRONIC OBSTRUCTIVE PULMONARY DISEASE W (ACUTE) EXACERBATION (4) Acute on chronic respiratory failure with hypoxemia Code(s): J96.21 - ACUTE AND CHRONIC RESPIRATORY FAILURE WITH HYPOXIA (5) Obesity hypoventilation syndrome Code(s): E66.2 - MORBID (SEVERE) OBESITY WITH ALVEOLAR HYPOVENTILATION
--- NOTE | 2017-07-08 12:53 | PN ---
Progress Note (short form) - Note Progress Note: less congestion afib with rapid vent response for transfer to telemetry Vital Signs Period Temp Pulse Resp BP Sys/Park Pulse Ox Last 24 Hr 97.2 F-97.9 F 78-113 20-22 114-134/74-80 93-96 cor-rrr lungs scattered rhonchi abd soft,nt ext trace edema CBC, BMP 07/08/17 10:59 07/08/17 10:59 Microbiology 07/04/17 13:55 Blood - Peripheral Venous Blood Culture - Preliminary NO GROWTH OBTAINED AFTER 72 HOURS, INCUBATION TO CONTINUE FOR 2 DAYS. 07/04/17 13:55 Blood - Peripheral Venous Blood Culture - Preliminary NO GROWTH OBTAINED AFTER 72 HOURS, INCUBATION TO CONTINUE FOR 2 DAYS. 07/06/17 06:00 Urine For Antigen Detection Legionella Antigen - Final 07/06/17 06:00 Urine For Antigen Detection Streptococcus pneumoniae Antigen (M - Final 07/04/17 12:30 Nasopharyngeal Swab Influenza Types A,B Antigen (LUISANA) - Final 07/04/17 12:30 Nasopharyngeal Swab - Final imp/reccd 72 year old man with PMH of copd/chf admitted with cold symptoms with stuffy nose and cough since Tuesday, denies fevers chf/copd exacerbation ?bronchitis day #4 rocephin/zithromax d/c rocephin complete 5 days zithromax afib- for transfer to telemetry Problem List - Problems (1) CHF exacerbation Code(s): I50.9 - HEART FAILURE, UNSPECIFIED Qualifiers: Congestive heart failure type: unspecified congestive heart failure type Qualified Code(s): I50.9 - Heart failure, unspecified (2) COPD exacerbation Code(s): J44.1 - CHRONIC OBSTRUCTIVE PULMONARY DISEASE W (ACUTE) EXACERBATION (3) Pneumonia Code(s): J18.9 - PNEUMONIA, UNSPECIFIED ORGANISM
[2017-07-08] MEDS ORDERED: PT OWN MED DRAWER 7, Y5N ONE (19:14)
[2017-07-08] MEDS: ATORVASTATIN CA 80 MG TABLET (FP) PO SCH (22:33)
[2017-07-08] MEDS ORDERED: INSULIN (NOVOLOG) ASPART 100 UNITS/ML 10ML VIAL ONE (22:34)
[2017-07-09] MEDS: methylPREDNISolone NA SUCC 40 MG/1 ML VIAL IVPUSH SCH ×2 (03:00→11:15)
[2017-07-09] MEDS ORDERED: INSULIN (NOVOLOG) ASPART 100 UNITS/ML 10ML VIAL ONE (06:10)
[2017-07-09] MEDS: INSULIN SLIDING SCALE (NOVOLOG) 1 VIAL SQ SCH ×4 (06:41→21:58)
[2017-07-09] MEDS: INSULIN DETEMIR 100 UNITS/ML MDV SQ SCH ×2 (06:41→17:07)
[2017-07-09] MEDS: sitaGLIPtin PHOSPHATE 50 MG TABLET PO SCH (06:41)
[2017-07-09] MEDS: metFORMIN HCL 500 MG TABLET (FP) PO SCH ×2 (06:41→17:06)
[2017-07-09] MEDS: GABAPENTIN 300 MG CAPSULE (FP) PO SCH ×3 (06:41→21:55)
[2017-07-09] MEDS: ALBUTEROL SO4 2.5/IPRATROPIUM 0.5 INH SOL 3 ML VIAL.NEB. NEB SCH ×4 (06:58→23:11)
[2017-07-09] MEDS: TAMSULOSIN HCL 0.4 MG CAP.ER.24H (FP) PO SCH (09:14)
[2017-07-09] MEDS: MOMETASONE FUROATE 220 MCG/IH INHALER IH SCH (10:14)
[2017-07-09] MEDS: FLUTICASONE PROP 0.05% 16 GM NASAL SPRAY NS SCH (10:14)
[2017-07-09] MEDS: VERAPAMIL HCL 240 MG E.R. TABLET (FP) PO SCH (11:14)
[2017-07-09] MEDS: APIXABAN 5 MG TABLET PO SCH ×2 (11:14→21:55)
[2017-07-09] MEDS: DIGOXIN 0.125 MG TABLET (FP) PO SCH (11:15)
[2017-07-09] MEDS: FUROSEMIDE 100 MG/10 ML INJECTABLE VIAL IVPUSH SCH (11:15)
[2017-07-09] MEDS: PANTOPRAZOLE 40 MG TABLET (FP) PO SCH (11:15)
[2017-07-09] MEDS: AZITHROMYCIN 250 MG TABLET PO SCH (11:15)
--- NOTE | 2017-07-09 12:59 | PN ---
Progress Note (short form) - Note Progress Note: Patient on the Cardiac Telemetry unit. Feels that his breathing is more labored today. Increased wheezing and congestion. Rapid AFib. Intake & Output 07/06/17 07/07/17 07/08/17 07/09/17 23:59 23:59 23:59 23:59 Intake Total 1550 1150 800 660 Output Total 2700 2300 1900 600 Balance -1150 -1150 -1100 60 Weight 327 lb 12.8 oz 325 lb 3.2 oz 322 lb 3 oz 318 lb Last Vital Signs Temp Pulse Resp BP Pulse Ox 97.9 F 103 H 20 141/61 97 07/09/17 06:00 07/09/17 11:15 07/09/17 06:00 07/09/17 06:00 07/09/17 06:50 Active Medications Acetaminophen (Tylenol -) 650 mg PO Q6H PRN PRN Reason: FEVER OR PAIN Last Admin: 07/05/17 04:47 Dose: 650 mg Albuterol/Ipratropium (Duoneb -) 1 amp NEB QIDR [facility] Last Admin: 07/09/17 11:58 Dose: 1 amp Apixaban (Eliquis -) 5 mg PO BID [facility] Last Admin: 07/09/17 11:14 Dose: 5 mg Atorvastatin Calcium (Lipitor -) 80 mg PO HS [facility] Last Admin: 07/08/17 22:33 Dose: 80 mg Azithromycin (Zithromax -) 250 mg PO DAILY [facility] Last Admin: 07/09/17 11:15 Dose: 250 mg Digoxin (Lanoxin -) 0.125 mg PO DAILY [facility] Last Admin: 07/09/17 11:15 Dose: 0.125 mg Fluticasone Propionate (Flonase -) 2 spray NS DAILY [facility] Last Admin: 07/09/17 10:14 Dose: 2 sprays Furosemide (Lasix Injection -) 80 mg IVPUSH DAILY [facility] Last Admin: 07/09/17 11:15 Dose: 80 mg Gabapentin (Neurontin -) 300 mg PO TID [facility] Last Admin: 07/09/17 06:41 Dose: 300 mg Insulin Aspart (Novolog Vial Sliding Scale -) 1 vial SQ ACHS [facility] PRN Reason: Protocol Last Admin: 07/09/17 12:44 Dose: 6 unit Insulin Detemir (Levemir Vial) 30 units SQ BIDAC [facility] Last Admin: 07/09/17 06:41 Dose: 30 unit Metformin HCl (Glucophage -) 500 mg PO BID@0700,1630 [facility] Last Admin: 07/09/17 06:41 Dose: 500 mg Methylprednisolone Sodium Succinate (Solu-Medrol -) 40 mg IVPUSH Q8H-IV [facility] Last Admin: 07/09/17 11:15 Dose: 40 mg Mometasone Furoate (Asmanex 220mcg -) 2 puff IH DAILY [facility] Last Admin: 07/09/17 10:14 Dose: 2 puff Pantoprazole Sodium (Protonix -) 40 mg PO DAILY [facility] Last Admin: 07/09/17 11:15 Dose: 40 mg Sitagliptin Phosphate (Januvia -) 50 mg PO ACBK [facility] Last Admin: 07/09/17 06:41 Dose: 50 mg Sodium Chloride ([place] Nasal [place] -) 2 spray NS TID PRN PRN Reason: NASAL CONGESTION Last Admin: 07/08/17 10:00 Dose: 2 sprays Tamsulosin HCl (Flomax -) 0.4 mg PO DAILY@0830 [facility] Last Admin: 07/09/17 09:14 Dose: 0.4 mg Verapamil HCl (Calan Sr -) 240 mg PO DAILY [facility] Last Admin: 07/09/17 11:14 Dose: 240 mg Constitutional: Yes: Mild Distress Eyes: Yes: WNL HENT: Yes: WNL Neck: Yes: WNL Cardiovascular: Yes: Tachycardia, Pulse Irregular Respiratory: Yes: Cough, On [place] O2 Gastrointestinal: Yes: WNL Genitourinary: Yes: WNL Musculoskeletal: Yes: WNL Extremities: Yes: WNL Edema: Yes Peripheral Pulses WNL: Yes Integumentary: Yes: WNL Wound/Incision: Yes: Clean/Dry Neurological: Yes: WNL ...Motor Strength: WNL Psychiatric: Yes: WNL Labs: Laboratory Results - last 24 hr 07/08/17 07/08/17 07/09/17 16:47 22:32 05:11 POC Glucometer 352 309 268 07/09/17 12:32 POC Glucometer 323 - Problems (1) Sleep apnea Code(s): G47.30 - SLEEP APNEA, UNSPECIFIED (2) CHF exacerbation Code(s): I50.9 - HEART FAILURE, UNSPECIFIED Qualifiers: Congestive heart failure type: unspecified congestive heart failure type Qualified Code(s): I50.9 - Heart failure, unspecified (3) COPD exacerbation Code(s): J44.1 - CHRONIC OBSTRUCTIVE PULMONARY DISEASE W (ACUTE) EXACERBATION (4) Acute on chronic respiratory failure with hypoxemia Code(s): J96.21 - ACUTE AND CHRONIC RESPIRATORY FAILURE WITH HYPOXIA (5) Obesity hypoventilation syndrome Code(s): E66.2 - MORBID (SEVERE) OBESITY WITH ALVEOLAR HYPOVENTILATION Assessment/Plan Increase Medrol ABX Lasix Rate control per Cardiology AC NIPPV overnight and PRN CXR Dr Emanuel
[2017-07-09] MEDS ORDERED: methylPREDNISolone NA SUCC 40 MG/1 ML VIAL IVPUSH ONE (13:01)
[2017-07-09] MEDS ORDERED: methylPREDNISolone NA SUCC 40 MG/1 ML VIAL IVPUSH SCH (13:01)
[2017-07-09] MEDS: methylPREDNISolone NA SUCC 125 MG/2 ML VIAL IVPUSH SCH (17:11)
[2017-07-09] MEDS ORDERED: INSULIN DETEMIR 100 UNITS/ML MDV SQ ONE (17:24)
--- NOTE | 2017-07-09 20:11 | PN ---
Progress Note, Physician Chief Complaint: SOB, CHF COPD exacerbation, Afib History of Present Illness: on Bipap breathing improved but still wheezing seen by Pulmonary and cardiology, on tele, still in SARY - Current Medication List Current Medications: Active Medications Acetaminophen (Tylenol -) 650 mg PO Q6H PRN PRN Reason: FEVER OR PAIN Last Admin: 07/05/17 04:47 Dose: 650 mg Albuterol/Ipratropium (Duoneb -) 1 amp NEB QIDR [facility] Last Admin: 07/09/17 18:51 Dose: 1 amp Apixaban (Eliquis -) 5 mg PO BID [facility] Last Admin: 07/09/17 11:14 Dose: 5 mg Atorvastatin Calcium (Lipitor -) 80 mg PO HS [facility] Last Admin: 07/08/17 22:33 Dose: 80 mg Azithromycin (Zithromax -) 250 mg PO DAILY [facility] Last Admin: 07/09/17 11:15 Dose: 250 mg Digoxin (Lanoxin -) 0.125 mg PO DAILY [facility] Last Admin: 07/09/17 11:15 Dose: 0.125 mg Fluticasone Propionate (Flonase -) 2 spray NS DAILY [facility] Last Admin: 07/09/17 10:14 Dose: 2 sprays Furosemide (Lasix Injection -) 80 mg IVPUSH DAILY [facility] Last Admin: 07/09/17 11:15 Dose: 80 mg Gabapentin (Neurontin -) 300 mg PO TID [facility] Last Admin: 07/09/17 13:22 Dose: 300 mg Insulin Aspart (Novolog Vial Sliding Scale -) 1 vial SQ ACHS [facility] PRN Reason: Protocol Last Admin: 07/09/17 17:07 Dose: 8 unit Insulin Detemir (Levemir Vial) 30 units SQ BIDAC [facility] Last Admin: 07/09/17 17:07 Dose: 30 unit Metformin HCl (Glucophage -) 500 mg PO BID@0700,1630 [facility] Last Admin: 07/09/17 17:06 Dose: 500 mg Methylprednisolone Sodium Succinate (Solu-Medrol -) 80 mg IVPUSH Q8H-IV [facility] Last Admin: 07/09/17 17:11 Dose: 80 mg Mometasone Furoate (Asmanex 220mcg -) 2 puff IH DAILY [facility] Last Admin: 07/09/17 10:14 Dose: 2 puff Pantoprazole Sodium (Protonix -) 40 mg PO DAILY [facility] Last Admin: 07/09/17 11:15 Dose: 40 mg Sitagliptin Phosphate (Januvia -) 50 mg PO ACBK [facility] Last Admin: 07/09/17 06:41 Dose: 50 mg Sodium Chloride ([place] Nasal [place] -) 2 spray NS TID PRN PRN Reason: NASAL CONGESTION Last Admin: 07/08/17 10:00 Dose: 2 sprays Tamsulosin HCl (Flomax -) 0.4 mg PO DAILY@0830 [facility] Last Admin: 07/09/17 09:14 Dose: 0.4 mg Verapamil HCl (Calan Sr -) 240 mg PO DAILY [facility] Last Admin: 07/09/17 11:14 Dose: 240 mg - Objective Vital Signs: Vital Signs Temperature 97.6 F 07/09/17 10:00 Pulse Rate 103 H 07/09/17 11:15 Respiratory Rate 20 07/09/17 10:00 Blood Pressure 144/76 07/09/17 10:00 O2 Sat by Pulse Oximetry (%) 94 L 07/09/17 09:00 Constitutional: Yes: Well Nourished, No Distress, Calm Cardiovascular: Yes: Pulse Irregular Respiratory: Yes: On BiPap Gastrointestinal: Yes: Normal Bowel Sounds Musculoskeletal: Yes: WNL Extremities: Yes: WNL Edema: No Peripheral Pulses WNL: Yes Neurological: Yes: Alert, Oriented Psychiatric: Yes: Alert, Oriented Labs: CBC, BMP 07/08/17 10:59 07/08/17 10:59 Problem List - Problems (1) CHF exacerbation Assessment/Plan: -furosemide -seen by cardiology and Pulmonary Code(s): I50.9 - HEART FAILURE, UNSPECIFIED Qualifiers: Congestive heart failure type: unspecified congestive heart failure type Qualified Code(s): I50.9 - Heart failure, unspecified (2) COPD exacerbation Assessment/Plan: -IV steroids -nebs held due to SARY -Pulmicort added -Guaifenesin -Bipap -Nasal o2 Code(s): J44.1 - CHRONIC OBSTRUCTIVE PULMONARY DISEASE W (ACUTE) EXACERBATION (3) Sleep apnea Assessment/Plan: -BIPAP at night Code(s): G47.30 - SLEEP APNEA, UNSPECIFIED (4) Atrial fibrillation Assessment/Plan: -improved -tele -cardiology consult -on dig and verapamil Code(s): I48.91 - UNSPECIFIED ATRIAL FIBRILLATION Qualifiers: Atrial fibrillation type: unspecified Qualified Code(s): I48.91 - Unspecified atrial fibrillation (5) Diabetes mellitus Assessment/Plan: -Januvia and metformin, [id number] BID and novolog sliding scale, Increase Levemir to 34 BID as BGM still running in 300's secondary to IV steroids -endo consult, last A1C at 10.2 on 04/11/17 Code(s): E11.9 - TYPE 2 DIABETES MELLITUS WITHOUT COMPLICATIONS Qualifiers: Diabetes mellitus complication status: with other specified complication (6) Leukocytosis Code(s): D72.829 - ELEVATED WHITE BLOOD CELL COUNT, UNSPECIFIED Assessment/Plan see problem list
[2017-07-09] MEDS: ATORVASTATIN CA 80 MG TABLET (FP) PO SCH (21:55)
--- NOTE | 2017-07-09 21:59 | PN ---
Progress Note (short form) - Note Progress Note: CC: SOB S: patient went into RVR --> transferred to [facility]. HR remained elevated until he resumed bipap this afternoon --> improvement in HR. Still with cough, congestion, sob. no cp, palps, dizziness. Current Medications Acetaminophen (Tylenol -) 650 mg PO Q6H PRN PRN Reason: FEVER OR PAIN Last Admin: 07/05/17 04:47 Dose: 650 mg Albuterol/Ipratropium (Duoneb -) 1 amp NEB QIDR [facility] Last Admin: 07/09/17 18:51 Dose: 1 amp Apixaban (Eliquis -) 5 mg PO BID [facility] Last Admin: 07/09/17 11:14 Dose: 5 mg Atorvastatin Calcium (Lipitor -) 80 mg PO HS [facility] Last Admin: 07/08/17 22:33 Dose: 80 mg Azithromycin (Zithromax -) 250 mg PO DAILY [facility] Last Admin: 07/09/17 11:15 Dose: 250 mg Digoxin (Lanoxin -) 0.125 mg PO DAILY [facility] Last Admin: 07/09/17 11:15 Dose: 0.125 mg Fluticasone Propionate (Flonase -) 2 spray NS DAILY [facility] Last Admin: 07/09/17 10:14 Dose: 2 sprays Furosemide (Lasix Injection -) 80 mg IVPUSH DAILY [facility] Last Admin: 07/09/17 11:15 Dose: 80 mg Gabapentin (Neurontin -) 300 mg PO TID [facility] Last Admin: 07/09/17 13:22 Dose: 300 mg Insulin Aspart (Novolog Vial Sliding Scale -) 1 vial SQ ACHS [facility] PRN Reason: Protocol Last Admin: 07/09/17 17:07 Dose: 8 unit Insulin Detemir (Levemir Vial) 30 units SQ BIDAC [facility] Last Admin: 07/09/17 17:07 Dose: 30 unit Metformin HCl (Glucophage -) 500 mg PO BID@0700,1630 [facility] Last Admin: 07/09/17 17:06 Dose: 500 mg Methylprednisolone Sodium Succinate (Solu-Medrol -) 80 mg IVPUSH Q8H-IV [facility] Last Admin: 07/09/17 17:11 Dose: 80 mg Mometasone Furoate (Asmanex 220mcg -) 2 puff IH DAILY [facility] Last Admin: 07/09/17 10:14 Dose: 2 puff Pantoprazole Sodium (Protonix -) 40 mg PO DAILY [facility] Last Admin: 07/09/17 11:15 Dose: 40 mg Sitagliptin Phosphate (Januvia -) 50 mg PO ACBK [facility] Last Admin: 07/09/17 06:41 Dose: 50 mg Sodium Chloride ([place] Nasal [place] -) 2 spray NS TID PRN PRN Reason: NASAL CONGESTION Last Admin: 07/08/17 10:00 Dose: 2 sprays Tamsulosin HCl (Flomax -) 0.4 mg PO DAILY@0830 [facility] Last Admin: 07/09/17 09:14 Dose: 0.4 mg Verapamil HCl (Calan Sr -) 240 mg PO DAILY [facility] Last Admin: 07/09/17 11:14 Dose: 240 mg Vital Signs - 24 hr 07/08/17 07/09/17 07/09/17 23:35 01:08 01:54 Temperature 97.6 F Pulse Rate 109 H Respiratory 20 Rate Blood Pressure 116/67 O2 Sat by Pulse 96 96 Oximetry (%) 07/09/17 07/09/17 07/09/17 06:00 06:50 09:00 Temperature 97.9 F Pulse Rate 105 H Respiratory 20 Rate Blood Pressure 141/61 O2 Sat by Pulse 97 94 L Oximetry (%) 07/09/17 07/09/17 07/09/17 10:00 11:15 18:00 Temperature 97.6 F 97.0 F L Pulse Rate 120 H 103 H 95 H Respiratory 20 19 Rate Blood Pressure 144/76 157/100 O2 Sat by Pulse Oximetry (%) 07/09/17 07/09/17 20:39 20:46 Temperature 97.0 F L Pulse Rate 110 H Respiratory 20 20 Rate Blood Pressure 150/69 O2 Sat by Pulse Oximetry (%) Intake & Output 07/07/17 07/08/17 07/09/17 07/10/17 07:59 07:59 07:59 07:59 Intake Total 1550 1150 1460 Output Total 2700 2800 2000 950 Balance -1150 -1650 -540 -950 Weight 325 lb 3.2 oz 322 lb 3 oz 318 lb NAD, calm JVD difficult to assess due to size, neck supple dec air movment bl, + diffuse wheezes, nl effort Irregularly, irregular nl s1, s2 no m/r/g + bs soft obese nt nd ext with trace-1+ edema. no cyanosis or clubbing + dp/pt no carotid bruits no jaundice, diaphoresis. aaox3 CBC, BMP 07/08/17 10:59 07/08/17 10:59 EKG: afib, 123 bpm. PVC. No ischemic changes. tele: afib with rvr to 130's --> this afternoon, improvement to 90's-110's. cxr: mild congestive changes. echo 07/2016: Nl lv/rv. 1+ AR mibi 12/2012: small posterior ischemia vs artifact, nl lvef, no tid a/p: 72 yo male with h/o AFib s/p prior DCCV 12/2015 to SR on AC, HTN, HL, dchf , PVCs with palpitations, morbid obesity, LUCY on bipap, severe COPD, here with sob. sob, copd: - has tendency towards volume retention felicia when receives steroids for copd exacerbation - vol status appears secondary, recent uri sx's and diffuse wheezes. copd likely cause of current sob. However, in light of worsened LE edema and congestion on cxr --> lasix 80 mg IV daily - copd/lucy tx per pulm acute on chronic diastolic chf: - sx's improving, but persist con't IV lasix - daily weight, bmp , I/O's paroxysmal AF/flutter -cont eliquis for AC -new dx 2015--req'd amio for HR control then (now off due to severe lung dz), s/ p successful DCCV 12/24, then reverted to afib -rate typically becomes elevated in settings of respiratory distress, RVR resolved today once placed back on bipap. con't verapamil, dig. Ongoing diureseis and mgm't of copd per pulm/pmd -avoiding BB given severe bronchospasm/copd; would like to avoid long-term amio for same reason hld: -continue home statin htn: -stable on current meds possible cad: -pt had borderline positive mibi in 2012 vs soft tissue attenuation artifact -never had angina sx's -no signs acs here -continue medical management with statin, AC without ASA
[2017-07-10] MEDS: methylPREDNISolone NA SUCC 125 MG/2 ML VIAL IVPUSH SCH ×3 (02:30→18:00)
[2017-07-10] MEDS: ALBUTEROL SO4 2.5/IPRATROPIUM 0.5 INH SOL 3 ML VIAL.NEB. NEB SCH ×2 (06:00→12:30)
[2017-07-10] MEDS: metFORMIN HCL 500 MG TABLET (FP) PO SCH ×2 (06:44→17:59)
[2017-07-10] MEDS: GABAPENTIN 300 MG CAPSULE (FP) PO SCH ×3 (06:44→22:01)
[2017-07-10] MEDS: sitaGLIPtin PHOSPHATE 50 MG TABLET PO SCH (06:44)
[2017-07-10] MEDS: INSULIN SLIDING SCALE (NOVOLOG) 1 VIAL SQ SCH ×4 (06:48→22:01)
[2017-07-10] MEDS: INSULIN DETEMIR 100 UNITS/ML MDV SQ SCH ×2 (06:48→17:59)
[2017-07-10 06:50] LABS: HEMATOCRIT 37.6 % (35.4-49); HEMOGLOBIN 11.9 GM/dL (11.7-16.9); MCHC 31.5 g/dl (32.0-35.9); MEAN CELL VOLUME 82.5 fl (80-96); MEAN PLT VOLUME 8.8 fl (7.5-11.1); PLATELET COUNT 266 K/MM3 (134-434); RBC 4.56 M/mm3 (4.00-5.60); RDW 20.7 % (11.9-15.9); WHITE BLOOD COUNT 12.1 K/mm3 (4.0-10.0)
[2017-07-10 06:52] LABS: ADD RBC MORPHOLOGY YES
[2017-07-10 08:21] LABS: ALBUMIN 2.9 g/dl (3.4-5.0); ANION GAP 9 (8-16); BILIRUBIN,TOTAL 0.6 mg/dL (0.2-1.0); BLOOD UREA NITROGEN 25 mg/dL (7-18); CALCIUM 9.2 mg/dL (8.5-10.1); CHLORIDE 97 mmol/L (98-107); CO2 33 mmol/L (21-32); CREATININE 0.9 mg/dL (0.7-1.3); GLUCOSE,RANDOM 286 mg/dL (74-106); POTASSIUM 4.4 mmol/L (3.5-5.1); SGOT/AST 7 U/L (15-37); SGPT/ALT 40 U/L (12-78); SODIUM 139 mmol/L (136-145)
[2017-07-10 08:23] LABS: ALK PHOS 76 U/L (45-117); TOT PROT 5.7 g/dl (6.4-8.2)
[2017-07-10 08:47] LABS: PLATELET ESTIMATE ADEQUATE
[2017-07-10 08:48] LABS: ANISOCYTOSIS 2+
[2017-07-10] MEDS: TAMSULOSIN HCL 0.4 MG CAP.ER.24H (FP) PO SCH (09:23)
[2017-07-10] MEDS: PANTOPRAZOLE 40 MG TABLET (FP) PO SCH (09:23)
[2017-07-10] MEDS: DIGOXIN 0.125 MG TABLET (FP) PO SCH (09:23)
[2017-07-10] MEDS: APIXABAN 5 MG TABLET PO SCH ×2 (09:23→22:01)
[2017-07-10] MEDS: AZITHROMYCIN 250 MG TABLET PO SCH (09:23)
[2017-07-10] MEDS: MOMETASONE FUROATE 220 MCG/IH INHALER IH SCH (09:24)
[2017-07-10] MEDS: VERAPAMIL HCL 240 MG E.R. TABLET (FP) PO SCH (09:24)
[2017-07-10] MEDS: FLUTICASONE PROP 0.05% 16 GM NASAL SPRAY NS SCH (09:24)
[2017-07-10] MEDS: FUROSEMIDE 100 MG/10 ML INJECTABLE VIAL IVPUSH SCH (09:24)
--- NOTE | 2017-07-10 11:19 | PN ---
Progress Note (short form) - Note Progress Note: Patient on the Cardiac Telemetry unit. Breathing feels a little better today as he feels less congested and can expectorate better. Less wheezing. Still with rapid AFib. Intake & Output 07/07/17 07/08/17 07/09/17 07/10/17 23:59 23:59 23:59 23:59 Intake Total 1150 800 660 Output Total 2300 1900 2150 300 Balance -1150 -1100 -1490 -300 Weight 325 lb 3.2 oz 322 lb 3 oz 318 lb 314 lb 3.2 oz Last Vital Signs Temp Pulse Resp BP Pulse Ox 97.8 F 123 H 28 H 140/79 94 L 07/10/17 10:00 07/10/17 10:00 07/10/17 10:00 07/10/17 10:00 07/09/17 09:00 Active Medications Acetaminophen (Tylenol -) 650 mg PO Q6H PRN PRN Reason: FEVER OR PAIN Last Admin: 07/05/17 04:47 Dose: 650 mg Albuterol/Ipratropium (Duoneb -) 1 amp NEB QIDR [facility] Last Admin: 07/10/17 06:00 Dose: 1 amp Apixaban (Eliquis -) 5 mg PO BID [facility] Last Admin: 07/10/17 09:23 Dose: 5 mg Atorvastatin Calcium (Lipitor -) 80 mg PO HS [facility] Last Admin: 07/09/17 21:55 Dose: 80 mg Digoxin (Lanoxin -) 0.125 mg PO DAILY [facility] Last Admin: 07/10/17 09:23 Dose: 0.125 mg Fluticasone Propionate (Flonase -) 2 spray NS DAILY [facility] Last Admin: 07/10/17 09:24 Dose: 2 sprays Furosemide (Lasix Injection -) 80 mg IVPUSH DAILY [facility] Last Admin: 07/10/17 09:24 Dose: 80 mg Gabapentin (Neurontin -) 300 mg PO TID [facility] Last Admin: 07/10/17 06:44 Dose: 300 mg Insulin Aspart (Novolog Vial Sliding Scale -) 1 vial SQ ACHS [facility] PRN Reason: Protocol Last Admin: 07/10/17 06:48 Dose: 10 unit Insulin Detemir (Levemir Vial) 30 units SQ BIDAC [facility] Last Admin: 07/10/17 06:48 Dose: 30 unit Metformin HCl (Glucophage -) 500 mg PO BID@0700,1630 [facility] Last Admin: 07/10/17 06:44 Dose: 500 mg Methylprednisolone Sodium Succinate (Solu-Medrol -) 80 mg IVPUSH Q8H-IV [facility] Last Admin: 07/10/17 09:24 Dose: 80 mg Mometasone Furoate (Asmanex 220mcg -) 2 puff IH DAILY [facility] Last Admin: 07/10/17 09:24 Dose: 2 puff Pantoprazole Sodium (Protonix -) 40 mg PO DAILY [facility] Last Admin: 07/10/17 09:23 Dose: 40 mg Sitagliptin Phosphate (Januvia -) 50 mg PO ACBK [facility] Last Admin: 07/10/17 06:44 Dose: 50 mg Sodium Chloride ([place] Nasal [place] -) 2 spray NS TID PRN PRN Reason: NASAL CONGESTION Last Admin: 07/08/17 10:00 Dose: 2 sprays Tamsulosin HCl (Flomax -) 0.4 mg PO DAILY@0830 [facility] Last Admin: 07/10/17 09:23 Dose: 0.4 mg Verapamil HCl (Calan Sr -) 240 mg PO DAILY [facility] Last Admin: 07/10/17 09:24 Dose: 240 mg Constitutional: Yes: Mildly tachypneic at rest, but more comfortable today Eyes: Yes: WNL HENT: Yes: WNL Neck: Yes: WNL Cardiovascular: Yes: Tachycardia, Pulse Irregular Respiratory: Yes: Cough, On NC O2, bilateral rhonchi, no wheezing appreciated Gastrointestinal: Yes: WNL Genitourinary: Yes: WNL Musculoskeletal: Yes: WNL Extremities: Yes: WNL Edema: Yes Peripheral Pulses WNL: Yes Integumentary: Yes: WNL Wound/Incision: Yes: Clean/Dry Neurological: Yes: WNL ...Motor Strength: WNL Psychiatric: Yes: WNL Labs: Laboratory Results - last 24 hr 07/09/17 07/09/17 07/10/17 12:32 17:04 05:05 WBC 12.1 H RBC 4.56 Hgb 11.9 Hct 37.6 MCV 82.5 MCH 26.0 MCHC 31.5 L RDW 20.7 H Plt Count 266 MPV 8.8 Total Counted 100 Neutrophils % No Result Required. Neutrophils % (Manual) 92.0 H* D Lymphocytes % No Result Required. Lymphocytes % (Manual) 4.0 L D Monocytes % (Manual) 4 Platelet Estimate Adequate Anisocytosis 2+ Microcytosis 1+ Sodium Potassium Chloride Carbon Dioxide Anion Gap BUN Creatinine Creat Clearance w eGFR POC Glucometer 323 365 Random Glucose Calcium Total Bilirubin AST ALT Alkaline Phosphatase Total Protein Albumin 07/10/17 05:05 WBC RBC Hgb Hct MCV MCH MCHC RDW Plt Count MPV Total Counted Neutrophils % Neutrophils % (Manual) Lymphocytes % Lymphocytes % (Manual) Monocytes % (Manual) Platelet Estimate Anisocytosis Microcytosis Sodium 139 Potassium 4.4 Chloride 97 L Carbon Dioxide 33 H Anion Gap 9 BUN 25 H Creatinine 0.9 Creat Clearance w eGFR > 60 POC Glucometer Random Glucose 286 H Calcium 9.2 Total Bilirubin 0.6 D AST 7 L D ALT 40 Alkaline Phosphatase 76 Total Protein 5.7 L Albumin 2.9 L - Problems (1) Sleep apnea Code(s): G47.30 - SLEEP APNEA, UNSPECIFIED (2) CHF exacerbation Code(s): I50.9 - HEART FAILURE, UNSPECIFIED Qualifiers: Congestive heart failure type: unspecified congestive heart failure type Qualified Code(s): I50.9 - Heart failure, unspecified (3) COPD exacerbation Code(s): J44.1 - CHRONIC OBSTRUCTIVE PULMONARY DISEASE W (ACUTE) EXACERBATION (4) Acute on chronic respiratory failure with hypoxemia Code(s): J96.21 - ACUTE AND CHRONIC RESPIRATORY FAILURE WITH HYPOXIA (5) Obesity hypoventilation syndrome Code(s): E66.2 - MORBID (SEVERE) OBESITY WITH ALVEOLAR HYPOVENTILATION Assessment/Plan Maintain Medrol at current dose ABX Lasix Rate control per Cardiology AC NIPPV overnight and PRN Dr Emanuel
--- NOTE | 2017-07-10 17:38 | PN ---
Progress Note (short form) - Note Progress Note: CC: SOB S: cough, congestion, sob improving. less reliant on bipap. no cp, palps, dizziness. Current Medications Acetaminophen (Tylenol -) 650 mg PO Q6H PRN PRN Reason: FEVER OR PAIN Last Admin: 07/05/17 04:47 Dose: 650 mg Apixaban (Eliquis -) 5 mg PO BID [facility] Last Admin: 07/10/17 09:23 Dose: 5 mg Atorvastatin Calcium (Lipitor -) 80 mg PO HS [facility] Last Admin: 07/09/17 21:55 Dose: 80 mg Digoxin (Lanoxin -) 0.125 mg PO DAILY [facility] Last Admin: 07/10/17 09:23 Dose: 0.125 mg Fluticasone Propionate (Flonase -) 2 spray NS DAILY [facility] Last Admin: 07/10/17 09:24 Dose: 2 sprays Furosemide (Lasix Injection -) 80 mg IVPUSH DAILY [facility] Last Admin: 07/10/17 09:24 Dose: 80 mg Gabapentin (Neurontin -) 300 mg PO TID [facility] Last Admin: 07/10/17 14:38 Dose: 300 mg Insulin Aspart (Novolog Vial Sliding Scale -) 1 vial SQ ACHS [facility] PRN Reason: Protocol Last Admin: 07/10/17 12:08 Dose: 8 unit Insulin Detemir (Levemir Vial) 30 units SQ BIDAC [facility] Last Admin: 07/10/17 06:48 Dose: 30 unit Metformin HCl (Glucophage -) 500 mg PO BID@0700,1630 [facility] Last Admin: 07/10/17 06:44 Dose: 500 mg Methylprednisolone Sodium Succinate (Solu-Medrol -) 80 mg IVPUSH Q8H-IV [facility] Last Admin: 07/10/17 09:24 Dose: 80 mg Mometasone Furoate (Asmanex 220mcg -) 2 puff IH DAILY [facility] Last Admin: 07/10/17 09:24 Dose: 2 puff Pantoprazole Sodium (Protonix -) 40 mg PO DAILY [facility] Last Admin: 07/10/17 09:23 Dose: 40 mg Sitagliptin Phosphate (Januvia -) 50 mg PO ACBK [facility] Last Admin: 07/10/17 06:44 Dose: 50 mg Sodium Chloride ([place] Nasal [place] -) 2 spray NS TID PRN PRN Reason: NASAL CONGESTION Last Admin: 12/29/17 10:00 Dose: 2 sprays Tamsulosin HCl (Flomax -) 0.4 mg PO DAILY@0830 [facility] Last Admin: 07/10/17 09:23 Dose: 0.4 mg Verapamil HCl (Calan Sr -) 240 mg PO DAILY [facility] Last Admin: 07/10/17 09:24 Dose: 240 mg Vital Signs - 24 hr 07/09/17 07/09/17 07/09/17 18:00 20:39 20:46 Temperature 97.0 F L 97.0 F L Pulse Rate 95 H 110 H Respiratory 19 20 20 Rate Blood Pressure 157/100 150/69 O2 Sat by Pulse Oximetry (%) 07/10/17 07/10/17 07/10/17 02:00 06:42 09:00 Temperature 97.2 F L 96.8 F L Pulse Rate 92 H 108 H Respiratory 20 20 28 H Rate Blood Pressure 141/67 132/80 O2 Sat by Pulse 97 Oximetry (%) 07/10/17 07/10/17 07/10/17 09:23 10:00 14:00 Temperature 97.8 F 97.2 F L Pulse Rate 111 H 123 H 92 H Respiratory 28 H 20 Rate Blood Pressure 140/79 117/81 O2 Sat by Pulse Oximetry (%) Intake & Output 07/08/17 07/09/17 07/10/17 07/11/17 07:59 07:59 07:59 07:59 Intake Total 1150 1460 Output Total 2800 2000 1850 Balance -1650 -540 -1850 Weight 322 lb 3 oz 318 lb 314 lb 3.2 oz NAD, calm JVD difficult to assess due to size, neck supple dec air movment bl, + diffuse wheezes, nl effort Irregularly, irregular nl s1, s2 no m/r/g + bs soft obese nt nd ext with trace edema no cyanosis or clubbing + dp/pt no carotid bruits no jaundice, diaphoresis. aaox3 CBC, BMP 07/10/17 05:05 07/10/17 05:05 EKG: afib, 123 bpm. PVC. No ischemic changes. tele: rate controlled afib. 90's-100's. rare breakthrough to 120's. cxr: mild congestive changes. echo 07/2016: Nl lv/rv. 1+ AR mibi 12/2012: small posterior ischemia vs artifact, nl lvef, no tid a/p: 72 yo male with h/o AFib s/p prior DCCV 12/2015 to SR on AC, HTN, HL, dchf , PVCs with palpitations, morbid obesity, NATHANIEL on bipap, severe COPD, here with sob. sob, copd: - has tendency towards volume retention felicia when receives steroids for copd exacerbation - vol status appears secondary, recent uri sx's and diffuse wheezes. copd likely cause of current sob. However, in light of worsened LE edema and congestion on cxr --> lasix 80 mg IV daily - copd/nathaniel tx per pulm acute on chronic diastolic chf: - sx's improving, but persist con't IV lasix - daily weight, bmp , I/O's paroxysmal AF/flutter -cont eliquis for AC -new dx 2015--req'd amio for HR control then (now off due to severe lung dz), s/ p successful DCCV 12/24, then reverted to afib -rate typically becomes elevated in settings of respiratory distress. con't verapamil, dig. Ongoing diureseis and mgm't of copd per pulm/pmd -avoiding BB given severe bronchospasm/copd; would like to avoid long-term amio for same reason hld: -continue home statin htn: -stable on current meds possible cad: -pt had borderline positive mibi in 2012 vs soft tissue attenuation artifact -never had angina sx's -no signs acs here -continue medical management with statin, AC without ASA
[2017-07-10] MEDS ORDERED: guaiFENesin 200 MG/10 ML 10 ML UNIT-DOSE CUPS PO PRN (20:28)
--- NOTE | 2017-07-10 20:37 | PN ---
Progress Note, Physician Chief Complaint: SOB, CHF COPD exacerbation, Afib History of Present Illness: on Bipap breathing improved but still wheezing seen by Pulmonary and cardiology, on tele, still in SARY - Current Medication List Current Medications: Active Medications Acetaminophen (Tylenol -) 650 mg PO Q6H PRN PRN Reason: FEVER OR PAIN Last Admin: 07/05/17 04:47 Dose: 650 mg Apixaban (Eliquis -) 5 mg PO BID [facility] Last Admin: 07/10/17 09:23 Dose: 5 mg Atorvastatin Calcium (Lipitor -) 80 mg PO HS [facility] Last Admin: 07/09/17 21:55 Dose: 80 mg Budesonide (Pulmicort 0.25 Mg Nebulizer -) 1 amp NEB BID ARVIND Digoxin (Lanoxin -) 0.125 mg PO DAILY [facility] Last Admin: 07/10/17 09:23 Dose: 0.125 mg Fluticasone Propionate (Flonase -) 2 spray NS DAILY [facility] Last Admin: 07/10/17 09:24 Dose: 2 sprays Furosemide (Lasix Injection -) 80 mg IVPUSH DAILY [facility] Last Admin: 07/10/17 09:24 Dose: 80 mg Gabapentin (Neurontin -) 300 mg PO TID [facility] Last Admin: 07/10/17 14:38 Dose: 300 mg Guaifenesin (Robitussin -) 10 ml PO Q6H PRN PRN Reason: COUGH Insulin Aspart (Novolog Vial Sliding Scale -) 1 vial SQ ACHS ARVIND PRN Reason: Protocol Last Admin: 07/10/17 17:59 Dose: 8 unit Insulin Detemir (Levemir Vial) 34 units SQ BIDAC [facility] Metformin HCl (Glucophage -) 500 mg PO BID@0700,1630 [facility] Last Admin: 07/10/17 17:59 Dose: 500 mg Methylprednisolone Sodium Succinate (Solu-Medrol -) 80 mg IVPUSH Q8H-IV [facility] Last Admin: 07/10/17 18:00 Dose: 80 mg Mometasone Furoate (Asmanex 220mcg -) 2 puff IH DAILY [facility] Last Admin: 07/10/17 09:24 Dose: 2 puff Pantoprazole Sodium (Protonix -) 40 mg PO DAILY [facility] Last Admin: 07/10/17 09:23 Dose: 40 mg Sitagliptin Phosphate (Januvia -) 50 mg PO ACBK [facility] Last Admin: 12/31/17 06:44 Dose: 50 mg Sodium Chloride ([place] Nasal [place] -) 2 spray NS TID PRN PRN Reason: NASAL CONGESTION Last Admin: 07/08/17 10:00 Dose: 2 sprays Tamsulosin HCl (Flomax -) 0.4 mg PO DAILY@0830 [facility] Last Admin: 07/10/17 09:23 Dose: 0.4 mg Verapamil HCl (Calan Sr -) 240 mg PO DAILY [facility] Last Admin: 07/10/17 09:24 Dose: 240 mg - Objective Vital Signs: Vital Signs Temperature 97.6 F 07/10/17 18:00 Pulse Rate 99 H 07/10/17 18:00 Respiratory Rate 22 07/10/17 18:00 Blood Pressure 105/59 07/10/17 18:00 O2 Sat by Pulse Oximetry (%) 97 07/10/17 09:00 Constitutional: Yes: Well Nourished, No Distress, Calm Cardiovascular: Yes: Pulse Irregular Respiratory: Yes: Regular, On BiPap Gastrointestinal: Yes: Normal Bowel Sounds, Abdomen, Obese Musculoskeletal: Yes: WNL Extremities: Yes: WNL Neurological: Yes: Alert, Oriented Psychiatric: Yes: Alert, Oriented Labs: CBC, BMP 07/10/17 05:05 07/10/17 05:05 Problem List - Problems (1) CHF exacerbation Assessment/Plan: -furosemide -seen by cardiology and Pulmonary Code(s): I50.9 - HEART FAILURE, UNSPECIFIED Qualifiers: Congestive heart failure type: unspecified congestive heart failure type Qualified Code(s): I50.9 - Heart failure, unspecified (2) COPD exacerbation Assessment/Plan: -IV steroids -nebs held due to SARY -Pulmicort added -Guaifenesin -Bipap -Nasal o2 Code(s): J44.1 - CHRONIC OBSTRUCTIVE PULMONARY DISEASE W (ACUTE) EXACERBATION (3) Sleep apnea Assessment/Plan: -BIPAP at night Code(s): G47.30 - SLEEP APNEA, UNSPECIFIED (4) Atrial fibrillation Assessment/Plan: -improved -tele -cardiology consult -on dig and verapamil Code(s): I48.91 - UNSPECIFIED ATRIAL FIBRILLATION Qualifiers: Atrial fibrillation type: unspecified Qualified Code(s): I48.91 - Unspecified atrial fibrillation (5) Diabetes mellitus Assessment/Plan: -Januvia and metformin, BID and novolog sliding scale, Increase Levemir to 34 BID as BGM still running in 300's secondary to IV steroids -endo consult, last A1C at 10.2 on 04/11/17 Code(s): E11.9 - TYPE 2 DIABETES MELLITUS WITHOUT COMPLICATIONS Qualifiers: Diabetes mellitus complication status: with other specified complication (6) Leukocytosis Assessment/Plan: secondary to IV steroids -afebrile Code(s): D72.829 - ELEVATED WHITE BLOOD CELL COUNT, UNSPECIFIED Assessment/Plan see problem list Physical therapy eval
[2017-07-10] MEDS ORDERED: BUDESONIDE 0.5 MG/2 ML INH SUSP VIAL NEB ONE (21:33)
[2017-07-10] MEDS: ATORVASTATIN CA 80 MG TABLET (FP) PO SCH (22:01)
[2017-07-10] MEDS: BUDESONIDE 0.25 MG/2ML INH SUSP VIAL NEB SCH (22:35)
[2017-07-11] MEDS: methylPREDNISolone NA SUCC 125 MG/2 ML VIAL IVPUSH SCH ×3 (01:50→17:22)
[2017-07-11] MEDS: metFORMIN HCL 500 MG TABLET (FP) PO SCH ×2 (06:04→17:10)
[2017-07-11] MEDS: sitaGLIPtin PHOSPHATE 50 MG TABLET PO SCH (06:04)
[2017-07-11] MEDS: INSULIN DETEMIR 100 UNITS/ML MDV SQ SCH ×2 (06:04→21:40)
[2017-07-11] MEDS: GABAPENTIN 300 MG CAPSULE (FP) PO SCH ×3 (06:04→21:45)
[2017-07-11] MEDS: INSULIN SLIDING SCALE (NOVOLOG) 1 VIAL SQ SCH ×4 (06:05→21:41)
[2017-07-11] MEDS ORDERED: ALBUTEROL SO4 2.5/IPRATROPIUM 0.5 INH SOL 3 ML VIAL.NEB. NEB ONE (07:41)
[2017-07-11] MEDS ORDERED: IPRATROPIUM BR 0.02% 0.5 MG/2.5 ML VIAL.NEB. NEB ONE (07:47)
[2017-07-11] MEDS: TAMSULOSIN HCL 0.4 MG CAP.ER.24H (FP) PO SCH (09:00)
[2017-07-11] MEDS: BUDESONIDE 0.25 MG/2ML INH SUSP VIAL NEB SCH ×2 (10:14→22:19)
[2017-07-11] MEDS ORDERED: PT OWN MED DRAWER 7, Y5N ONE ×3 (10:39→21:28)
[2017-07-11] MEDS: VERAPAMIL HCL 240 MG E.R. TABLET (FP) PO SCH (11:26)
[2017-07-11] MEDS: MOMETASONE FUROATE 220 MCG/IH INHALER IH SCH (11:26)
[2017-07-11] MEDS: FUROSEMIDE 100 MG/10 ML INJECTABLE VIAL IVPUSH SCH (11:27)
[2017-07-11] MEDS: APIXABAN 5 MG TABLET PO SCH ×2 (11:27→21:40)
[2017-07-11] MEDS: FLUTICASONE PROP 0.05% 16 GM NASAL SPRAY NS SCH (11:27)
[2017-07-11] MEDS: DIGOXIN 0.125 MG TABLET (FP) PO SCH (11:27)
[2017-07-11] MEDS: PANTOPRAZOLE 40 MG TABLET (FP) PO SCH (11:27)
--- NOTE | 2017-07-11 12:18 | PN ---
Progress Note (short form) - Note Progress Note: Patient on the Cardiac Telemetry unit. Breathing feels a little better today. Less congestion. Less wheezing. Intake & Output 07/08/17 07/09/17 07/10/17 07/11/17 23:59 23:59 23:59 23:59 Intake Total 800 660 400 300 Output Total 1900 2150 300 Balance -1100 -1490 100 300 Weight 322 lb 3 oz 318 lb 314 lb 3.2 oz 314 lb 9.6 oz Last Vital Signs Temp Pulse Resp BP Pulse Ox 97.5 F L 116 H 20 120/76 97 07/11/17 10:00 07/11/17 11:27 07/11/17 10:00 07/11/17 10:00 07/11/17 07:20 Active Medications Acetaminophen (Tylenol -) 650 mg PO Q6H PRN PRN Reason: FEVER OR PAIN Last Admin: 07/05/17 04:47 Dose: 650 mg Apixaban (Eliquis -) 5 mg PO BID [facility] Last Admin: 07/11/17 11:27 Dose: 5 mg Atorvastatin Calcium (Lipitor -) 80 mg PO HS [facility] Last Admin: 07/10/17 22:01 Dose: 80 mg Budesonide (Pulmicort 0.25 Mg Nebulizer -) 1 amp NEB BID [facility] Last Admin: 07/11/17 10:14 Dose: 1 amp Digoxin (Lanoxin -) 0.125 mg PO DAILY [facility] Last Admin: 07/11/17 11:27 Dose: 0.125 mg Fluticasone Propionate (Flonase -) 2 spray NS DAILY [facility] Last Admin: 07/11/17 11:27 Dose: 2 sprays Furosemide (Lasix Injection -) 80 mg IVPUSH DAILY [facility] Last Admin: 07/11/17 11:27 Dose: 80 mg Gabapentin (Neurontin -) 300 mg PO TID [facility] Last Admin: 07/11/17 06:04 Dose: 300 mg Guaifenesin (Robitussin -) 10 ml PO Q6H PRN PRN Reason: COUGH Insulin Aspart (Novolog Vial Sliding Scale -) 1 vial SQ ACHS [facility] PRN Reason: Protocol Last Admin: 07/11/17 06:05 Dose: 4 unit Insulin Detemir (Levemir Vial) 34 units SQ BID@0700,2200 [facility] Last Admin: 07/11/17 06:04 Dose: 34 units Metformin HCl (Glucophage -) 500 mg PO BID@0700,1630 [facility] Last Admin: 07/11/17 06:04 Dose: 500 mg Methylprednisolone Sodium Succinate (Solu-Medrol -) 80 mg IVPUSH Q8H-IV [facility] Last Admin: 07/11/17 11:27 Dose: 80 mg Mometasone Furoate (Asmanex 220mcg -) 2 puff IH DAILY [facility] Last Admin: 07/11/17 11:26 Dose: 2 puff Pantoprazole Sodium (Protonix -) 40 mg PO DAILY [facility] Last Admin: 07/11/17 11:27 Dose: 40 mg Sitagliptin Phosphate (Januvia -) 50 mg PO ACBK [facility] Last Admin: 07/11/17 06:04 Dose: 50 mg Sodium Chloride ([place] Nasal [place] -) 2 spray NS TID PRN PRN Reason: NASAL CONGESTION Last Admin: 07/08/17 10:00 Dose: 2 sprays Tamsulosin HCl (Flomax -) 0.4 mg PO DAILY@0830 [facility] Last Admin: 07/11/17 09:00 Dose: 0.4 mg Verapamil HCl (Calan Sr -) 240 mg PO DAILY [facility] Last Admin: 07/11/17 11:26 Dose: 240 mg Constitutional: Yes: Mildly tachypneic at rest, but more comfortable today Eyes: Yes: WNL HENT: Yes: WNL Neck: Yes: WNL Cardiovascular: Yes: Tachycardia, Pulse Irregular Respiratory: Yes: Cough, On NC O2, bilateral rhonchi, no wheezing appreciated Gastrointestinal: Yes: WNL Genitourinary: Yes: WNL Musculoskeletal: Yes: WNL Extremities: Yes: WNL Edema: Yes Peripheral Pulses WNL: Yes Integumentary: Yes: WNL Wound/Incision: Yes: Clean/Dry Neurological: Yes: WNL ...Motor Strength: WNL Psychiatric: Yes: WNL Labs: Laboratory Results - last 24 hr 07/10/17 07/10/17 07/11/17 17:15 21:26 05:59 POC Glucometer 356 357 266 - Problems (1) Sleep apnea Code(s): G47.30 - SLEEP APNEA, UNSPECIFIED (2) CHF exacerbation Code(s): I50.9 - HEART FAILURE, UNSPECIFIED Qualifiers: Congestive heart failure type: unspecified congestive heart failure type Qualified Code(s): I50.9 - Heart failure, unspecified (3) COPD exacerbation Code(s): J44.1 - CHRONIC OBSTRUCTIVE PULMONARY DISEASE W (ACUTE) EXACERBATION (4) Acute on chronic respiratory failure with hypoxemia Code(s): J96.21 - ACUTE AND CHRONIC RESPIRATORY FAILURE WITH HYPOXIA (5) Obesity hypoventilation syndrome Code(s): E66.2 - MORBID (SEVERE) OBESITY WITH ALVEOLAR HYPOVENTILATION Assessment/Plan Decrease Medrol at current dose ABX Lasix Rate control per Cardiology AC NIPPV overnight and PRN Dr Emanuel
--- NOTE | 2017-07-11 12:28 | PN ---
Progress Note (short form) - Note Progress Note: s: still sob, no cp palps dizzy, le edema better o: Vital Signs Period Temp Pulse Resp BP Sys/Park Pulse Ox Last 24 Hr 97.2 F-97.8 F 71-116 20-22 104-134/58-81 97-98 NAD, calm JVD difficult to assess due to size, neck supple dec air movment bl, + diffuse wheezes, nl effort Irregularly, irregular nl s1, s2 no m/r/g + bs soft obese nt nd ext with trace edema no cyanosis or clubbing + dp/pt no carotid bruits no jaundice, diaphoresis. aaox3 Current Medications Generic Name Dose Route Start Last Admin Trade Name Freq PRN Reason Stop Dose Admin Acetaminophen 650 mg 07/04/17 21:58 07/05/17 04:47 Tylenol - PO 650 mg Q6H PRN Administration FEVER OR PAIN Apixaban 5 mg 07/04/17 22:00 07/11/17 11:27 Eliquis - PO 5 mg BID ARVIND Administration Atorvastatin Calcium 80 mg 07/04/17 22:00 07/10/17 22:01 Lipitor - PO 80 mg HS ARVIND Administration Budesonide 1 amp 07/10/17 22:00 07/11/17 10:14 Pulmicort 0.25 Mg Nebulizer - NEB 1 amp BID ARVIND Administration Digoxin 0.125 mg 07/05/17 10:00 07/11/17 11:27 Lanoxin - PO 0.125 mg DAILY ARVIND Administration Fluticasone Propionate 2 spray 07/07/17 12:30 07/11/17 11:27 Flonase - NS 2 sprays DAILY ARVIND Administration Furosemide 80 mg 07/05/17 10:00 07/11/17 11:27 Lasix Injection - IVPUSH 80 mg DAILY ARVIND Administration Gabapentin 300 mg 07/04/17 22:00 07/11/17 06:04 Neurontin - PO 300 mg TID ARVIND Administration Guaifenesin 10 ml 07/10/17 20:28 Robitussin - PO Q6H PRN COUGH Insulin Aspart 1 vial 07/04/17 22:00 07/11/17 06:05 Novolog Vial Sliding Scale - SQ 4 unit ACHS ARVIND Administration Protocol Insulin Detemir 34 units 07/11/17 07:00 07/11/17 06:04 Levemir Vial SQ 34 units BID@0700,2200 ARVIND Administration Metformin HCl 500 mg 07/05/17 07:00 07/11/17 06:04 Glucophage - PO 500 mg BID@0700,1630 ARVIND Administration Methylprednisolone Sodium Succinate 60 mg 07/11/17 12:18 Solu-Medrol - IVPUSH Q8H-IV ARVIND Mometasone Furoate 2 puff 07/05/17 10:00 07/11/17 11:26 Asmanex 220mcg - IH 2 puff DAILY ARVIND Administration Pantoprazole Sodium 40 mg 07/05/17 10:00 07/11/17 11:27 Protonix - PO 40 mg DAILY ARVIND Administration Sitagliptin Phosphate 50 mg 07/05/17 07:00 07/11/17 06:04 Januvia - PO 50 mg ACBK ARVIND Administration Sodium Chloride 2 spray 07/07/17 11:29 07/08/17 10:00 [place] Nasal [place] - NS 2 sprays TID PRN Administration NASAL CONGESTION Tamsulosin HCl 0.4 mg 07/05/17 08:30 07/11/17 09:00 Flomax - PO 0.4 mg DAILY@0830 ARVIND Administration Verapamil HCl 240 mg 07/05/17 10:00 07/11/17 11:26 Calan Sr - PO 240 mg DAILY ARVIND Administration CBC, BMP 07/10/17 05:05 07/10/17 05:05 EKG: afib, 123 bpm. PVC. No ischemic changes. tele: rate controlled afib. 90's-100's. rare breakthrough to 120's. cxr: mild congestive changes. echo 07/2016: Nl lv/rv. 1+ AR mibi 12/2012: small posterior ischemia vs artifact, nl lvef, no tid a/p: 72 yo male with h/o AFib s/p prior DCCV 12/2015 to SR on AC, HTN, HL, dchf , PVCs with palpitations, morbid obesity, NATHANIEL on bipap, severe COPD, here with sob. sob, copd: - has tendency towards volume retention felicia when receives steroids for copd exacerbation - vol status appears secondary, recent uri sx's and diffuse wheezes. copd likely cause of current sob. However, in light of worsened LE edema and congestion on cxr --> lasix 80 mg IV daily - copd/nathaniel tx per pulm acute on chronic diastolic chf: - sx's improving, but persist con't IV lasix - daily weight, bmp , I/O's paroxysmal AF/flutter -cont eliquis for AC -new dx 2015--req'd amio for HR control then (now off due to severe lung dz), s/ p successful DCCV 12/24, then reverted to afib -rate typically becomes elevated in settings of respiratory distress. con't verapamil, dig. Ongoing diureseis and mgm't of copd per pulm/pmd -avoiding BB given severe bronchospasm/copd; would like to avoid long-term amio for same reason hld: -continue home statin htn: -stable on current meds possible cad: -pt had borderline positive mibi in 2012 vs soft tissue attenuation artifact -never had angina sx's -no signs acs here -continue medical management with statin, AC without ASA
[2017-07-11] MEDS ORDERED: INSULIN (NOVOLOG) ASPART 100 UNITS/ML 10ML VIAL ONE ×3 (12:37→21:29)
--- NOTE | 2017-07-11 12:49 | PN ---
Progress Note, Physician History of Present Illness: feels better - Current Medication List Current Medications: Active Medications Acetaminophen (Tylenol -) 650 mg PO Q6H PRN PRN Reason: FEVER OR PAIN Last Admin: 07/05/17 04:47 Dose: 650 mg Albuterol Sulfate (Ventolin 0.083% Nebulizer Soln -) 1 amp NEB Q4H PRN PRN Reason: SHORT OF BREATH/WHEEZING Apixaban (Eliquis -) 5 mg PO BID [facility] Last Admin: 07/11/17 11:27 Dose: 5 mg Atorvastatin Calcium (Lipitor -) 80 mg PO HS [facility] Last Admin: 07/10/17 22:01 Dose: 80 mg Budesonide (Pulmicort 0.25 Mg Nebulizer -) 1 amp NEB BID [facility] Last Admin: 07/11/17 10:14 Dose: 1 amp Digoxin (Lanoxin -) 0.125 mg PO DAILY [facility] Last Admin: 07/11/17 11:27 Dose: 0.125 mg Fluticasone Propionate (Flonase -) 2 spray NS DAILY [facility] Last Admin: 07/11/17 11:27 Dose: 2 sprays Furosemide (Lasix Injection -) 80 mg IVPUSH DAILY [facility] Last Admin: 07/11/17 11:27 Dose: 80 mg Gabapentin (Neurontin -) 300 mg PO TID [facility] Last Admin: 07/11/17 06:04 Dose: 300 mg Guaifenesin (Robitussin -) 10 ml PO Q6H PRN PRN Reason: COUGH Insulin Aspart (Novolog Vial Sliding Scale -) 1 vial SQ ACHS [facility] PRN Reason: Protocol Last Admin: 07/11/17 12:38 Dose: 4 unit Insulin Detemir (Levemir Vial) 34 units SQ BID@0700,2200 [facility] Last Admin: 07/11/17 06:04 Dose: 34 units Metformin HCl (Glucophage -) 500 mg PO BID@0700,1630 [facility] Last Admin: 07/11/17 06:04 Dose: 500 mg Methylprednisolone Sodium Succinate (Solu-Medrol -) 60 mg IVPUSH Q8H-IV [facility] Mometasone Furoate (Asmanex 220mcg -) 2 puff IH DAILY [facility] Last Admin: 07/11/17 11:26 Dose: 2 puff Pantoprazole Sodium (Protonix -) 40 mg PO DAILY [facility] Last Admin: 07/11/17 11:27 Dose: 40 mg Sitagliptin Phosphate (Januvia -) 50 mg PO ACBK [facility] Last Admin: 07/11/17 06:04 Dose: 50 mg Sodium Chloride ([place] Nasal [place] -) 2 spray NS TID PRN PRN Reason: NASAL CONGESTION Last Admin: 07/08/17 10:00 Dose: 2 sprays Tamsulosin HCl (Flomax -) 0.4 mg PO DAILY@0830 [facility] Last Admin: 07/11/17 09:00 Dose: 0.4 mg Verapamil HCl (Calan Sr -) 240 mg PO DAILY [facility] Last Admin: 07/11/17 11:26 Dose: 240 mg - Objective Vital Signs: Vital Signs Temperature 97.5 F L 07/11/17 10:00 Pulse Rate 116 H 07/11/17 11:27 Respiratory Rate 20 07/11/17 10:00 Blood Pressure 120/76 07/11/17 10:00 O2 Sat by Pulse Oximetry (%) 94 L 07/11/17 09:00 Respiratory: Yes: Diminished, Rales, Wheezes Gastrointestinal: Yes: Normal Bowel Sounds, Soft Edema: LLE: Trace, RLE: Trace Labs: CBC, BMP 07/10/17 05:05 07/10/17 05:05 Assessment/Plan - Problems (1) CHF exacerbation Assessment/Plan: -furosemide -seen by cardiology and Pulmonary Code(s): I50.9 - HEART FAILURE, UNSPECIFIED Qualifiers: Congestive heart failure type: unspecified congestive heart failure type Qualified Code(s): I50.9 - Heart failure, unspecified (2) COPD exacerbation Assessment/Plan: -IV steroids -nebs held due to SARY -Pulmicort added -Guaifenesin -Bipap -Nasal o2 Code(s): J44.1 - CHRONIC OBSTRUCTIVE PULMONARY DISEASE W (ACUTE) EXACERBATION (3) Sleep apnea Assessment/Plan: -BIPAP at night Code(s): G47.30 - SLEEP APNEA, UNSPECIFIED (4) Atrial fibrillation Assessment/Plan: -improved -tele -cardiology consult -on dig and verapamil Code(s): I48.91 - UNSPECIFIED ATRIAL FIBRILLATION Qualifiers: Atrial fibrillation type: unspecified Qualified Code(s): I48.91 - Unspecified atrial fibrillation (5) Diabetes mellitus Assessment/Plan: -Januvia and metformin, [id number] BID and novolog sliding scale, Increase Levemir to 34 BID as BGM still running in 300's secondary to IV steroids -endo consult, last A1C at 10.2 on 04/11/17 Code(s): E11.9 - TYPE 2 DIABETES MELLITUS WITHOUT COMPLICATIONS Qualifiers: Diabetes mellitus complication status: with other specified complication (6) Leukocytosis Assessment/Plan: secondary to IV steroids -afebrile Code(s): D72.829 - ELEVATED WHITE BLOOD CELL COUNT, UNSPECIFIED
--- NOTE | 2017-07-11 16:19 | CONSULT ---
Consult Consult Specialty:: Endocrinology Referred by:: Nichole Anaya Reason for Consultation:: Hyperglycemia - History of Present Illness Chief Complaint: SOB History of Present Illness: This is a 72 YOM with h/o COPD, asthma, CHF (on 4 LPM 24/7 at home and on BiPAP at night, on albuterol MDI and nebulizer tx as well as Spiriva, on 20 mg Lasix daily), T2DDM for about 3 years which initially started while he was on steroids for his COPD, HTN, and HLD who presented to ED with c/o cough, SOB for few days. Pt treated with IV steroid, Abx, bronchodilators and is on BIPAP. Pt' s blood sugar has been fluctuating and is referred for management. Pt takes Levemir 20 units BID at home with Novolog Sliding scale. He usually needs 8 to 12 units Novolog with meals. Denies hospitalization for hypo or hyperglycemia. BGM at home around 200 in the morning and up to 300 in the evening. No visual symptoms. Had cataract surgery b/l eyes recently. No paresthesia of feet. Has polyuria and Nocturia. 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 Cardio/Vascular: Yes: AFIB, HTN, Hyperlipdemia Pulmonary: Yes: COPD, O2 Dependent, Sleep Apnea Gastrointestinal: Yes: GERD Renal/: Yes: Renal Inusuff Endocrine: Yes: Other (MORBIDLY OBESE) - Past Surgical History Past Surgical History: Yes: Tonsillectomy - Alcohol/Substance Use Hx Alcohol Use: No - Smoking History Smoking history: Former smoker Have you smoked in the past 12 months: No Aproximately how many cigarettes per day: 0 If you are a former smoker, when did you quit?: 6 years ago - Social History Usual Living Arrangement: Other History of Recent Travel: No Home Medications - Allergies Allergies/Adverse Reactions: Allergies Allergy/AdvReac Type Severity Reaction Status Date / Time No Known Allergies Allergy Verified 07/04/17 12:36 - Home Medications Home Medications: Ambulatory Orders Albuterol 0.083% Nebulizer [place] [Ventolin 0.083% Nebulizer Soln -] 1 neb NEB Q4H PRN 08/26/16 Apixaban [Eliquis] 5 mg PO BID 08/26/16 Atorvastatin Ca [Lipitor] 10 mg PO HS 08/26/16 Digoxin [Lanoxin -] 0.125 mg PO DAILY 08/26/16 Gabapentin 100 mg PO BID 08/26/16 Tamsulosin HCl [Flomax] 0.4 mg PO DAILY 08/26/16 Verapamil HCl [Verapamil ER] 240 mg PO BID 08/26/16 Furosemide [Lasix -] 40 mg PO DAILY 02/21/17 Mometasone Furoate [Asmanex 220Mcg -] 2 inh IH DAILY 03/08/17 Pantoprazole Sodium [Protonix] 40 mg PO DAILY 03/08/17 Acetaminophen [Tylenol .Regular Strength -] 650 mg PO Q6H PRN #120 tablet Insulin (Levemir) [Levemir Flexpen -] 20 units SQ BID #4 syr 04/17/17 Insulin (Novolog) [Novolog -] 0 units SQ AC #1 vial 04/17/17 Sitagliptin Phos/Metformin HCl [Janumet 50-1,000 mg Tablet] 1 each PO DAILY #30 tab 04/17/17 Metformin HCl 500 mg PO BID 07/04/17 Prednisone [Deltasone -] 20 mg PO DAILY 07/04/17 Family Disease History - Family Disease History Other Family History: No family h/o DM Review of Systems - Review of Systems Constitutional: reports: Malaise Eyes: reports: No Symptoms HENT: reports: No Symptoms Neck: reports: No Symptoms Cardiovascular: reports: Shortness of Breath Respiratory: reports: Cough, SOB Gastrointestinal: reports: No Symptoms Genitourinary: reports: Other (Polyuria, nocturia) Breasts: reports: No Symptoms Reported Musculoskeletal: reports: No Symptoms Neurological: reports: No Symptoms Endocrine: reports: No Symptoms Physical Exam Vital Signs: Vital Signs Temperature 97.8 F 07/11/17 14:58 Pulse Rate 98 H 07/11/17 14:58 Respiratory Rate 22 07/11/17 14:58 Blood Pressure 115/76 07/11/17 14:58 O2 Sat by Pulse Oximetry (%) 94 L 07/11/17 09:00 Constitutional: Yes: Mild Distress Eyes: Yes: Conjunctiva Clear, EOM Intact HENT: Yes: Atraumatic, Normocephalic Neck: Yes: Supple, Trachea Midline Cardiovascular: Yes: Pulse Irregular Respiratory: Yes: Rhonchi (B/L) Gastrointestinal: Yes: Normal Bowel Sounds, Soft Musculoskeletal: Yes: WNL Extremities: Yes: WNL Edema: No Neurological: Yes: Alert, Oriented Labs: CBC, BMP 07/10/17 05:05 07/10/17 05:05 Imaging - Results X-ray: Report Reviewed Assessment/Plan AP: CHF COPD A Fib HLD Sleep Apnea T2DM Levemier 34 BID Increase Novolog coverage IV steroid Eliquis BIPAP Lasix Atorvastatin Will need to adjust dose of Levemir and Novolog once steroid is tapered to prevent hypoglycemia.
[2017-07-11] MEDS: ALBUTEROL SO4 0.083% IH SOL 2.5 MG/3 ML VIAL.NEB. NEB PRN (17:43)
[2017-07-11] MEDS: ATORVASTATIN CA 80 MG TABLET (FP) PO SCH (21:40)
[2017-07-12] MEDS: methylPREDNISolone NA SUCC 125 MG/2 ML VIAL IVPUSH SCH ×3 (01:46→17:58)
[2017-07-12] MEDS: GABAPENTIN 300 MG CAPSULE (FP) PO SCH ×3 (06:11→21:48)
[2017-07-12] MEDS: sitaGLIPtin PHOSPHATE 50 MG TABLET PO SCH (06:11)
[2017-07-12] MEDS: metFORMIN HCL 500 MG TABLET (FP) PO SCH ×2 (06:14→17:59)
[2017-07-12] MEDS: INSULIN DETEMIR 100 UNITS/ML MDV SQ SCH ×2 (06:14→21:48)
[2017-07-12] MEDS: INSULIN SLIDING SCALE (NOVOLOG) 1 VIAL SQ SCH ×4 (06:20→21:54)
[2017-07-12] MEDS: ALBUTEROL SO4 0.083% IH SOL 2.5 MG/3 ML VIAL.NEB. NEB PRN ×2 (09:40→22:50)
[2017-07-12] MEDS: BUDESONIDE 0.25 MG/2ML INH SUSP VIAL NEB SCH ×2 (10:05→22:40)
[2017-07-12] MEDS ORDERED: PT OWN MED DRAWER 7, Y5N ONE ×2 (10:14→21:52)
[2017-07-12] MEDS: TAMSULOSIN HCL 0.4 MG CAP.ER.24H (FP) PO SCH (10:56)
[2017-07-12] MEDS: PANTOPRAZOLE 40 MG TABLET (FP) PO SCH (10:56)
[2017-07-12] MEDS: APIXABAN 5 MG TABLET PO SCH ×2 (10:56→21:48)
[2017-07-12] MEDS: FUROSEMIDE 100 MG/10 ML INJECTABLE VIAL IVPUSH SCH (10:56)
[2017-07-12] MEDS: DIGOXIN 0.125 MG TABLET (FP) PO SCH (10:56)
[2017-07-12] MEDS: VERAPAMIL HCL 240 MG E.R. TABLET (FP) PO SCH (10:57)
[2017-07-12] MEDS: MOMETASONE FUROATE 220 MCG/IH INHALER IH SCH (10:57)
[2017-07-12] MEDS: FLUTICASONE PROP 0.05% 16 GM NASAL SPRAY NS SCH (10:58)
[2017-07-12] MEDS: SODIUM CHLORIDE NASAL SPRAY 44 ML BOTTLE NS PRN (10:58)
--- NOTE | 2017-07-12 12:00 | PN ---
Progress Note, Physician History of Present Illness: pulmonary alert,feeling better,sob improving - Current Medication List Current Medications: Active Medications Acetaminophen (Tylenol -) 650 mg PO Q6H PRN PRN Reason: FEVER OR PAIN Last Admin: 07/05/17 04:47 Dose: 650 mg Albuterol Sulfate (Ventolin 0.083% Nebulizer Soln -) 1 amp NEB Q4H PRN PRN Reason: SHORT OF BREATH/WHEEZING Last Admin: 07/12/17 09:40 Dose: 1 amp Apixaban (Eliquis -) 5 mg PO BID [facility] Last Admin: 07/12/17 10:56 Dose: 5 mg Atorvastatin Calcium (Lipitor -) 80 mg PO HS [facility] Last Admin: 07/11/17 21:40 Dose: 80 mg Budesonide (Pulmicort 0.25 Mg Nebulizer -) 1 amp NEB BID [facility] Last Admin: 07/12/17 10:05 Dose: 1 amp Digoxin (Lanoxin -) 0.125 mg PO DAILY [facility] Last Admin: 07/12/17 10:56 Dose: 0.125 mg Fluticasone Propionate (Flonase -) 2 spray NS DAILY [facility] Last Admin: 07/12/17 10:58 Dose: 2 sprays Furosemide (Lasix Injection -) 80 mg IVPUSH DAILY [facility] Last Admin: 07/12/17 10:56 Dose: 80 mg Gabapentin (Neurontin -) 300 mg PO TID [facility] Last Admin: 07/12/17 06:11 Dose: 300 mg Guaifenesin (Robitussin -) 10 ml PO Q6H PRN PRN Reason: COUGH Insulin Aspart (Novolog Vial Sliding Scale -) 1 vial SQ [facility] PRN Reason: Protocol Last Admin: 07/11/17 21:41 Dose: 6 units Insulin Aspart (Novolog Vial Sliding Scale -) 1 vial SQ TIDAC [facility] PRN Reason: Protocol Last Admin: 07/12/17 06:20 Dose: 8 units Insulin Detemir (Levemir Vial) 34 units SQ BID@0700,2200 [facility] Last Admin: 07/12/17 06:14 Dose: 34 units Metformin HCl (Glucophage -) 500 mg PO BID@0700,1630 [facility] Last Admin: 07/12/17 06:14 Dose: 500 mg Methylprednisolone Sodium Succinate (Solu-Medrol -) 60 mg IVPUSH Q8H-IV [facility] Last Admin: 07/12/17 10:57 Dose: 60 mg Mometasone Furoate (Asmanex 220mcg -) 2 puff IH DAILY [facility] Last Admin: 07/12/17 10:57 Dose: 2 puff Pantoprazole Sodium (Protonix -) 40 mg PO DAILY [facility] Last Admin: 07/12/17 10:56 Dose: 40 mg Sitagliptin Phosphate (Januvia -) 50 mg PO ACBK [facility] Last Admin: 07/12/17 06:11 Dose: 50 mg Sodium Chloride ([place] Nasal [place] -) 2 spray NS TID PRN PRN Reason: NASAL CONGESTION Last Admin: 07/12/17 10:58 Dose: 2 sprays Tamsulosin HCl (Flomax -) 0.4 mg PO DAILY@0830 [facility] Last Admin: 07/12/17 10:56 Dose: 0.4 mg Verapamil HCl (Calan Sr -) 240 mg PO DAILY [facility] Last Admin: 07/12/17 10:57 Dose: 240 mg - Objective Vital Signs: Vital Signs Temperature 98.2 F 07/12/17 10:00 Pulse Rate 128 H 07/12/17 10:56 Respiratory Rate 24 07/12/17 10:00 Blood Pressure 134/68 07/12/17 10:00 O2 Sat by Pulse Oximetry (%) 97 07/12/17 09:00 Constitutional: Yes: Obese Eyes: Yes: WNL HENT: Yes: WNL Neck: Yes: WNL Cardiovascular: Yes: Pulse Irregular, S1, S2 Respiratory: Yes: Wheezes (few scattered wheezes) Gastrointestinal: Yes: Normal Bowel Sounds, Soft Extremities: Yes: WNL Edema: No Labs: CBC, BMP Assessment/Plan Problems (1) Sleep apnea Code(s): G47.30 - SLEEP APNEA, UNSPECIFIED (2) CHF exacerbation Code(s): I50.9 - HEART FAILURE, UNSPECIFIED Qualifiers: Congestive heart failure type: unspecified congestive heart failure type Qualified Code(s): I50.9 - Heart failure, unspecified (3) COPD exacerbation Code(s): J44.1 - CHRONIC OBSTRUCTIVE PULMONARY DISEASE W (ACUTE) EXACERBATION (4) Acute on chronic respiratory failure with hypoxemia Code(s): J96.21 - ACUTE AND CHRONIC RESPIRATORY FAILURE WITH HYPOXIA (5) Obesity hypoventilation syndrome Code(s): E66.2 - MORBID (SEVERE) OBESITY WITH ALVEOLAR HYPOVENTILATION Assessment/Plan Medrol ABX Lasix Rate control per Cardiology AC NIPPV overnight and PRN Dr Oscar
--- NOTE | 2017-07-12 13:09 | PN ---
Progress Note (short form) - Note Progress Note: CC: sob s: still sob but improving, no cp palps dizzy, le edema better. Patient was on verapamil bid as outpatient. Will adjust dose. o: Current Medications Acetaminophen (Tylenol -) 650 mg PO Q6H PRN PRN Reason: FEVER OR PAIN Last Admin: 07/05/17 04:47 Dose: 650 mg Albuterol Sulfate (Ventolin 0.083% Nebulizer Soln -) 1 amp NEB Q4H PRN PRN Reason: SHORT OF BREATH/WHEEZING Last Admin: 07/12/17 09:40 Dose: 1 amp Apixaban (Eliquis -) 5 mg PO BID [facility] Last Admin: 07/12/17 10:56 Dose: 5 mg Atorvastatin Calcium (Lipitor -) 80 mg PO HS [facility] Last Admin: 07/11/17 21:40 Dose: 80 mg Budesonide (Pulmicort 0.25 Mg Nebulizer -) 1 amp NEB BID [facility] Last Admin: 07/12/17 10:05 Dose: 1 amp Digoxin (Lanoxin -) 0.125 mg PO DAILY [facility] Last Admin: 07/12/17 10:56 Dose: 0.125 mg Fluticasone Propionate (Flonase -) 2 spray NS DAILY [facility] Last Admin: 07/12/17 10:58 Dose: 2 sprays Furosemide (Lasix Injection -) 80 mg IVPUSH DAILY [facility] Last Admin: 07/12/17 10:56 Dose: 80 mg Gabapentin (Neurontin -) 300 mg PO TID [facility] Last Admin: 07/12/17 06:11 Dose: 300 mg Guaifenesin (Robitussin -) 10 ml PO Q6H PRN PRN Reason: COUGH Insulin Aspart (Novolog Vial Sliding Scale -) 1 vial SQ [facility] PRN Reason: Protocol Last Admin: 07/11/17 21:41 Dose: 6 units Insulin Aspart (Novolog Vial Sliding Scale -) 1 vial SQ TIDAC [facility] PRN Reason: Protocol Last Admin: 07/12/17 12:54 Dose: 8 units Insulin Detemir (Levemir Vial) 34 units SQ BID@0700,2200 [facility] Last Admin: 07/12/17 06:14 Dose: 34 units Metformin HCl (Glucophage -) 500 mg PO BID@0700,1630 [facility] Last Admin: 07/12/17 06:14 Dose: 500 mg Methylprednisolone Sodium Succinate (Solu-Medrol -) 60 mg IVPUSH Q8H-IV [facility] Last Admin: 07/12/17 10:57 Dose: 60 mg Mometasone Furoate (Asmanex 220mcg -) 2 puff IH DAILY [facility] Last Admin: 07/12/17 10:57 Dose: 2 puff Pantoprazole Sodium (Protonix -) 40 mg PO DAILY [facility] Last Admin: 07/12/17 10:56 Dose: 40 mg Sitagliptin Phosphate (Januvia -) 50 mg PO ACBK [facility] Last Admin: 07/12/17 06:11 Dose: 50 mg Sodium Chloride ([place] Nasal [place] -) 2 spray NS TID PRN PRN Reason: NASAL CONGESTION Last Admin: 07/12/17 10:58 Dose: 2 sprays Tamsulosin HCl (Flomax -) 0.4 mg PO DAILY@0830 [facility] Last Admin: 07/12/17 10:56 Dose: 0.4 mg Verapamil HCl (Calan Sr -) 240 mg PO DAILY [facility] Last Admin: 07/12/17 10:57 Dose: 240 mg Vital Signs - 24 hr 07/11/17 07/11/17 07/11/17 14:58 17:43 18:30 Temperature 97.8 F 97.7 F Pulse Rate 98 H 87 Respiratory 22 20 Rate Blood Pressure 115/76 129/59 O2 Sat by Pulse 96 Oximetry (%) 07/11/17 07/11/17 07/12/17 20:10 23:48 01:54 Temperature 98.3 F 97.5 F L Pulse Rate 104 H 92 H Respiratory 21 22 Rate Blood Pressure 133/79 126/60 O2 Sat by Pulse 96 Oximetry (%) 07/12/17 07/12/17 07/12/17 02:22 06:24 06:30 Temperature 98.7 F Pulse Rate 113 H Respiratory 21 Rate Blood Pressure 115/79 O2 Sat by Pulse 98 97 Oximetry (%) 07/12/17 07/12/17 07/12/17 09:00 10:00 10:56 Temperature 98.2 F Pulse Rate 134 H 128 H Respiratory 24 24 Rate Blood Pressure 134/68 O2 Sat by Pulse 97 Oximetry (%) Intake & Output 07/10/17 07/11/17 07/12/17 07/13/17 07:59 07:59 07:59 07:59 Intake Total 700 1135 Output Total 1850 3800 Balance -1850 700 -2665 Weight 314 lb 3.2 oz 314 lb 9.6 oz 312 lb 2 oz NAD, calm JVD difficult to assess due to size, neck supple dec air movment bl, nl effort Irregularly, irregular nl s1, s2 no m/r/g + bs soft obese nt nd ext with trace edema no cyanosis or clubbing + dp/pt no carotid bruits no jaundice, diaphoresis. aaox3 Laboratory Tests 07/12/17 13:35 Potassium 4.5 Carbon Dioxide 31 BUN 30 H Creatinine 1.1 D B-Natriuretic Peptide Digoxin EKG: afib, 123 bpm. PVC. No ischemic changes. tele: afib, rates trending up to 120's today cxr: mild congestive changes. echo 07/2016: Nl lv/rv. 1+ AR mibi 12/2012: small posterior ischemia vs artifact, nl lvef, no tid a/p: 72 yo male with h/o AFib s/p prior DCCV 12/2015 to SR on AC, HTN, HL, dchf , PVCs with palpitations, morbid obesity, LUCY on bipap, severe COPD, here with sob. sob, copd: - has tendency towards volume retention felicia when receives steroids for copd exacerbation - vol status appears secondary, recent uri sx's and diffuse wheezes. copd likely cause of current sob. However, in light of worsened LE edema and congestion on cxr --> lasix 80 mg IV daily - copd/lucy tx per pulm acute on chronic diastolic chf: - diuresing well sx's improving, but persist. bmp stable. con't IV lasix - daily weight, bmp , I/O's paroxysmal AF/flutter -cont eliquis for AC -new dx 2015--req'd amio for HR control then (now off due to severe lung dz), s/ p successful DCCV 12/24, then reverted to afib -rate typically becomes elevated in settings of respiratory distress. con't verapamil, dig. Ongoing diureseis and mgm't of copd per pulm/pmd - 1/2 HR's more elevated today. Patient clarifies he was on bid verapamil at home. Will uptitrate. -avoiding BB given severe bronchospasm/copd; would like to avoid long-term amio for same reason hld: -continue home statin htn: -stable on current meds, monitor with above changes. possible cad: -pt had borderline positive mibi in 2013 vs soft tissue attenuation artifact -never had angina sx's -no signs acs here -continue medical management with statin, AC without ASA
[2017-07-12] MEDS ORDERED: VERAPAMIL HCL 80 MG TABLET PO ONE (13:45)
--- NOTE | 2017-07-12 13:52 | PN ---
Progress Note, Physician Chief Complaint: AWAKE ON BIPAP STILL SOB AND TACHYCARDIC - Current Medication List Current Medications: Active Medications Acetaminophen (Tylenol -) 650 mg PO Q6H PRN PRN Reason: FEVER OR PAIN Last Admin: 07/05/17 04:47 Dose: 650 mg Albuterol Sulfate (Ventolin 0.083% Nebulizer Soln -) 1 amp NEB Q4H PRN PRN Reason: SHORT OF BREATH/WHEEZING Last Admin: 07/12/17 09:40 Dose: 1 amp Apixaban (Eliquis -) 5 mg PO BID [facility] Last Admin: 07/12/17 10:56 Dose: 5 mg Atorvastatin Calcium (Lipitor -) 80 mg PO HS [facility] Last Admin: 07/11/17 21:40 Dose: 80 mg Budesonide (Pulmicort 0.25 Mg Nebulizer -) 1 amp NEB BID [facility] Last Admin: 07/12/17 10:05 Dose: 1 amp Digoxin (Lanoxin -) 0.125 mg PO DAILY [facility] Last Admin: 07/12/17 10:56 Dose: 0.125 mg Fluticasone Propionate (Flonase -) 2 spray NS DAILY [facility] Last Admin: 07/12/17 10:58 Dose: 2 sprays Furosemide (Lasix Injection -) 80 mg IVPUSH DAILY [facility] Last Admin: 07/12/17 10:56 Dose: 80 mg Gabapentin (Neurontin -) 300 mg PO TID [facility] Last Admin: 07/12/17 06:11 Dose: 300 mg Guaifenesin (Robitussin -) 10 ml PO Q6H PRN PRN Reason: COUGH Insulin Aspart (Novolog Vial Sliding Scale -) 1 vial SQ [facility] PRN Reason: Protocol Last Admin: 07/11/17 21:41 Dose: 6 units Insulin Aspart (Novolog Vial Sliding Scale -) 1 vial SQ TIDAC [facility] PRN Reason: Protocol Last Admin: 07/12/17 12:54 Dose: 8 units Insulin Detemir (Levemir Vial) 34 units SQ BID@0700,2200 [facility] Last Admin: 07/12/17 06:14 Dose: 34 units Metformin HCl (Glucophage -) 500 mg PO BID@0700,1630 [facility] Last Admin: 07/12/17 06:14 Dose: 500 mg Methylprednisolone Sodium Succinate (Solu-Medrol -) 60 mg IVPUSH Q8H-IV [facility] Last Admin: 07/12/17 10:57 Dose: 60 mg Mometasone Furoate (Asmanex 220mcg -) 2 puff IH DAILY [facility] Last Admin: 07/12/17 10:57 Dose: 2 puff Pantoprazole Sodium (Protonix -) 40 mg PO DAILY [facility] Last Admin: 07/12/17 10:56 Dose: 40 mg Sitagliptin Phosphate (Januvia -) 50 mg PO ACBK [facility] Last Admin: 07/12/17 06:11 Dose: 50 mg Sodium Chloride ([place] Nasal [place] -) 2 spray NS TID PRN PRN Reason: NASAL CONGESTION Last Admin: 07/12/17 10:58 Dose: 2 sprays Tamsulosin HCl (Flomax -) 0.4 mg PO DAILY@0830 [facility] Last Admin: 07/12/17 10:56 Dose: 0.4 mg Verapamil HCl (Calan Sr -) 240 mg PO DAILY [facility] Last Admin: 07/12/17 10:57 Dose: 240 mg - Objective Vital Signs: Vital Signs Temperature 98.2 F 07/12/17 10:00 Pulse Rate 128 H 07/12/17 10:56 Respiratory Rate 24 07/12/17 10:00 Blood Pressure 134/68 07/12/17 10:00 O2 Sat by Pulse Oximetry (%) 97 07/12/17 09:00 Constitutional: Yes: Moderate Distress Eyes: Yes: WNL HENT: Yes: WNL Neck: Yes: WNL Cardiovascular: Yes: Tachycardia Respiratory: Yes: On BiPap, Poor Air Entry, Tachypnea Gastrointestinal: Yes: WNL Genitourinary: Yes: WNL Musculoskeletal: Yes: WNL Extremities: Yes: WNL Edema: Yes Peripheral Pulses WNL: Yes Integumentary: Yes: WNL Wound/Incision: Yes: Clean/Dry Neurological: Yes: WNL ...Motor Strength: WNL Psychiatric: Yes: WNL Labs: CBC, BMP 07/10/17 05:05 07/10/17 05:05 Problem List - Problems (1) CHF exacerbation Code(s): I50.9 - HEART FAILURE, UNSPECIFIED Qualifiers: Congestive heart failure type: unspecified congestive heart failure type Qualified Code(s): I50.9 - Heart failure, unspecified (2) COPD exacerbation Code(s): J44.1 - CHRONIC OBSTRUCTIVE PULMONARY DISEASE W (ACUTE) EXACERBATION (3) Obesity hypoventilation syndrome Code(s): E66.2 - MORBID (SEVERE) OBESITY WITH ALVEOLAR HYPOVENTILATION (4) Sleep apnea Code(s): G47.30 - SLEEP APNEA, UNSPECIFIED (5) Acute CHF Code(s): I50.9 - HEART FAILURE, UNSPECIFIED Qualifiers: Congestive heart failure type: unspecified congestive heart failure type Qualified Code(s): I50.9 - Heart failure, unspecified (6) Acute bronchitis with COPD Code(s): J44.0 - CHRONIC OBSTRUCTIVE PULMON DISEASE W ACUTE LOWER RESP INFCT (7) Acute chronic obstructive pulmonary disease with respiratory distress Code(s): J44.9 - CHRONIC OBSTRUCTIVE PULMONARY DISEASE, UNSPECIFIED; R06.03 - ACUTE RESPIRATORY DISTRESS (8) Asthma Code(s): J45.909 - UNSPECIFIED ASTHMA, UNCOMPLICATED Qualifiers: Asthma severity: moderate Asthma complication type: with acute exacerbation (9) Atrial fibrillation Code(s): I48.91 - UNSPECIFIED ATRIAL FIBRILLATION Qualifiers: Atrial fibrillation type: unspecified Qualified Code(s): I48.91 - Unspecified atrial fibrillation (10) Diabetes mellitus Code(s): E11.9 - TYPE 2 DIABETES MELLITUS WITHOUT COMPLICATIONS Qualifiers: Diabetes mellitus complication status: with other specified complication (11) Morbid obesity Code(s): E66.01 - MORBID (SEVERE) OBESITY DUE TO EXCESS CALORIES (12) Shortness of breath Code(s): R06.02 - SHORTNESS OF BREATH Assessment/Plan DISCUSSED WITH CARDIOLOGY VERAPAMIL INCREASED 02 SUPPORT STEROIDS IV WILL NEED SNF PULM CARE
[2017-07-12 14:10] LABS: HEMATOCRIT 43.4 % (35.4-49); HEMOGLOBIN 13.2 GM/dL (11.7-16.9); MCH 25.4 pg (25.7-33.7); MCHC 30.5 g/dl (32.0-35.9); MEAN CELL VOLUME 83.4 fl (80-96); MEAN PLT VOLUME 8.4 fl (7.5-11.1); PLATELET COUNT 267 K/MM3 (134-434); RDW 20.5 % (11.9-15.9); WHITE BLOOD COUNT 15.7 K/mm3 (4.0-10.0)
[2017-07-12 14:37] LABS: ANION GAP 12 (8-16); BLOOD UREA NITROGEN 30 mg/dL (7-18); CALCIUM 9.3 mg/dL (8.5-10.1); CHLORIDE 95 mmol/L (98-107); CO2 31 mmol/L (21-32); MAGNESIUM 2.1 mg/dL (1.8-2.4); POTASSIUM 4.5 mmol/L (3.5-5.1); SODIUM 138 mmol/L (136-145)
[2017-07-12 14:42] LABS: CREATININE 1.1 mg/dL (0.7-1.3)
[2017-07-12 15:01] LABS: GLUCOSE,RANDOM 355 mg/dL (74-106)
[2017-07-12 15:34] LABS: ANISOCYTOSIS 2+; PLATELET ESTIMATE NORMAL
[2017-07-12] MEDS ORDERED: VERAPAMIL HCL 120 MG E.R. TABLET PO ONE ×2 (17:19→22:00)
[2017-07-12] MEDS: ATORVASTATIN CA 80 MG TABLET (FP) PO SCH (21:48)
[2017-07-13] MEDS ORDERED: INSULIN (NOVOLOG) ASPART 100 UNITS/ML 10ML VIAL SQ ONE ×2 (01:22→23:45)
[2017-07-13] MEDS: methylPREDNISolone NA SUCC 125 MG/2 ML VIAL IVPUSH SCH ×2 (01:28→10:11)
[2017-07-13] MEDS: INSULIN DETEMIR 100 UNITS/ML MDV SQ SCH ×2 (06:09→23:22)
[2017-07-13] MEDS: GABAPENTIN 300 MG CAPSULE (FP) PO SCH ×3 (06:10→23:22)
[2017-07-13] MEDS: metFORMIN HCL 500 MG TABLET (FP) PO SCH ×2 (06:10→16:56)
[2017-07-13] MEDS: sitaGLIPtin PHOSPHATE 50 MG TABLET PO SCH (06:10)
[2017-07-13] MEDS: INSULIN SLIDING SCALE (NOVOLOG) 1 VIAL SQ SCH ×4 (06:14→23:45)
[2017-07-13] MEDS: ALBUTEROL SO4 0.083% IH SOL 2.5 MG/3 ML VIAL.NEB. NEB PRN ×2 (06:45→12:11)
[2017-07-13] MEDS ORDERED: APIXABAN 2.5 MG TABLET PO ONE (10:00)
[2017-07-13] MEDS: BUDESONIDE 0.25 MG/2ML INH SUSP VIAL NEB SCH ×2 (10:00→11:15)
[2017-07-13] MEDS: DIGOXIN 0.125 MG TABLET (FP) PO SCH (10:08)
[2017-07-13] MEDS: TAMSULOSIN HCL 0.4 MG CAP.ER.24H (FP) PO SCH (10:08)
[2017-07-13] MEDS: PANTOPRAZOLE 40 MG TABLET (FP) PO SCH (10:08)
[2017-07-13] MEDS: FUROSEMIDE 100 MG/10 ML INJECTABLE VIAL IVPUSH SCH (10:10)
[2017-07-13] MEDS: VERAPAMIL HCL 240 MG E.R. TABLET (FP) PO SCH ×2 (10:11→23:21)
[2017-07-13] MEDS: MOMETASONE FUROATE 220 MCG/IH INHALER IH SCH (10:21)
[2017-07-13] MEDS: FLUTICASONE PROP 0.05% 16 GM NASAL SPRAY NS SCH (10:22)
--- NOTE | 2017-07-13 11:28 | PN ---
Progress Note, Physician Chief Complaint: AWAEK ON 02 MASK FEELING BETTER - Current Medication List Current Medications: Active Medications Acetaminophen (Tylenol -) 650 mg PO Q6H PRN PRN Reason: FEVER OR PAIN Last Admin: 07/05/17 04:47 Dose: 650 mg Albuterol Sulfate (Ventolin 0.083% Nebulizer Soln -) 1 amp NEB Q4H PRN PRN Reason: SHORT OF BREATH/WHEEZING Last Admin: 07/13/17 06:45 Dose: 1 amp Apixaban (Eliquis -) 5 mg PO BID [facility] Last Admin: 07/12/17 21:48 Dose: 5 mg Atorvastatin Calcium (Lipitor -) 80 mg PO HS [facility] Last Admin: 07/12/17 21:48 Dose: 80 mg Budesonide/Formoterol Fumarate (Symbicort 160/4.5mcg -) 2 puff IH BID [facility] Digoxin (Lanoxin -) 0.125 mg PO DAILY [facility] Last Admin: 07/13/17 10:08 Dose: 0.125 mg Fluticasone Propionate (Flonase -) 2 spray NS DAILY [facility] Last Admin: 07/13/17 10:22 Dose: 2 sprays Furosemide (Lasix Injection -) 80 mg IVPUSH DAILY [facility] Last Admin: 07/13/17 10:10 Dose: 80 mg Gabapentin (Neurontin -) 300 mg PO TID [facility] Last Admin: 07/13/17 06:10 Dose: 300 mg Guaifenesin (Robitussin -) 10 ml PO Q6H PRN PRN Reason: COUGH Insulin Aspart (Novolog Vial Sliding Scale -) 1 vial SQ [facility] PRN Reason: Protocol Last Admin: 07/12/17 21:54 Dose: 10 units Insulin Aspart (Novolog Vial Sliding Scale -) 1 vial SQ TIDAC [facility] PRN Reason: Protocol Last Admin: 07/13/17 06:14 Dose: 10 units Insulin Detemir (Levemir Vial) 34 units SQ BID@0700,2200 [facility] Last Admin: 07/13/17 06:09 Dose: 34 units Metformin HCl (Glucophage -) 500 mg PO BID@0700,1630 [facility] Last Admin: 07/13/17 06:10 Dose: 500 mg Pantoprazole Sodium (Protonix -) 40 mg PO DAILY [facility] Last Admin: 07/13/17 10:08 Dose: 40 mg Prednisone (Deltasone -) 60 mg PO DAILY [facility] Sitagliptin Phosphate (Januvia -) 50 mg PO ACBK [facility] Last Admin: 07/13/17 06:10 Dose: 50 mg Sodium Chloride ([place] Nasal [place] -) 2 spray NS TID PRN PRN Reason: NASAL CONGESTION Last Admin: 07/12/17 10:58 Dose: 2 sprays Tamsulosin HCl (Flomax -) 0.4 mg PO DAILY@0830 [facility] Last Admin: 07/13/17 10:08 Dose: 0.4 mg Verapamil HCl (Calan Sr -) 240 mg PO BID [facility] Last Admin: 07/13/17 10:11 Dose: 240 mg - Objective Vital Signs: Vital Signs Temperature 97.1 F L 07/13/17 10:00 Pulse Rate 88 07/13/17 10:08 Respiratory Rate 22 07/13/17 10:00 Blood Pressure 134/80 07/13/17 10:00 O2 Sat by Pulse Oximetry (%) 96 07/13/17 09:00 Constitutional: Yes: Mild Distress Eyes: Yes: WNL HENT: Yes: WNL Neck: Yes: WNL Cardiovascular: Yes: Tachycardia, Pulse Irregular Respiratory: Yes: On Venti-Mask, Wheezes Gastrointestinal: Yes: WNL Genitourinary: Yes: WNL Musculoskeletal: Yes: Muscle Weakness Extremities: Yes: WNL Edema: Yes Peripheral Pulses WNL: Yes Integumentary: Yes: WNL Wound/Incision: Yes: Clean/Dry Neurological: Yes: WNL ...Motor Strength: WNL Psychiatric: Yes: WNL Labs: CBC, BMP 07/12/17 13:35 07/12/17 13:35 Problem List - Problems (1) CHF exacerbation Code(s): I50.9 - HEART FAILURE, UNSPECIFIED Qualifiers: Congestive heart failure type: unspecified congestive heart failure type Qualified Code(s): I50.9 - Heart failure, unspecified (2) COPD exacerbation Code(s): J44.1 - CHRONIC OBSTRUCTIVE PULMONARY DISEASE W (ACUTE) EXACERBATION (3) Obesity hypoventilation syndrome Code(s): E66.2 - MORBID (SEVERE) OBESITY WITH ALVEOLAR HYPOVENTILATION (4) Sleep apnea Code(s): G47.30 - SLEEP APNEA, UNSPECIFIED (5) Acute CHF Code(s): I50.9 - HEART FAILURE, UNSPECIFIED Qualifiers: Congestive heart failure type: unspecified congestive heart failure type Qualified Code(s): I50.9 - Heart failure, unspecified (6) Acute bronchitis with COPD Code(s): J44.0 - CHRONIC OBSTRUCTIVE PULMON DISEASE W ACUTE LOWER RESP INFCT (7) Acute chronic obstructive pulmonary disease with respiratory distress Code(s): J44.9 - CHRONIC OBSTRUCTIVE PULMONARY DISEASE, UNSPECIFIED; R06.03 - ACUTE RESPIRATORY DISTRESS (8) Asthma Code(s): J45.909 - UNSPECIFIED ASTHMA, UNCOMPLICATED Qualifiers: Asthma severity: moderate Asthma complication type: with acute exacerbation (9) Atrial fibrillation Code(s): I48.91 - UNSPECIFIED ATRIAL FIBRILLATION Qualifiers: Atrial fibrillation type: unspecified Qualified Code(s): I48.91 - Unspecified atrial fibrillation (10) Diabetes mellitus Code(s): E11.9 - TYPE 2 DIABETES MELLITUS WITHOUT COMPLICATIONS Qualifiers: Diabetes mellitus complication status: with other specified complication (11) Morbid obesity Code(s): E66.01 - MORBID (SEVERE) OBESITY DUE TO EXCESS CALORIES (12) Shortness of breath Code(s): R06.02 - SHORTNESS OF BREATH Assessment/Plan WILL NEED PULM REHAB SNF? DC SOLUMEDROL PREDNISONE START TOMORROW OOB TO CHAIR PT EVAL RATE CONTROL
--- NOTE | 2017-07-13 11:49 | PN ---
Progress Note, Physician History of Present Illness: pulmonary alert,feeling better,less dyspneic,-cp,-cough - Current Medication List Current Medications: Active Medications Acetaminophen (Tylenol -) 650 mg PO Q6H PRN PRN Reason: FEVER OR PAIN Last Admin: 07/05/17 04:47 Dose: 650 mg Albuterol Sulfate (Ventolin 0.083% Nebulizer Soln -) 1 amp NEB Q4H PRN PRN Reason: SHORT OF BREATH/WHEEZING Last Admin: 07/13/17 06:45 Dose: 1 amp Apixaban (Eliquis -) 5 mg PO BID [facility] Last Admin: 07/12/17 21:48 Dose: 5 mg Atorvastatin Calcium (Lipitor -) 80 mg PO HS [facility] Last Admin: 07/12/17 21:48 Dose: 80 mg Budesonide/Formoterol Fumarate (Symbicort 160/4.5mcg -) 2 puff IH BID [facility] Digoxin (Lanoxin -) 0.125 mg PO DAILY [facility] Last Admin: 07/13/17 10:08 Dose: 0.125 mg Fluticasone Propionate (Flonase -) 2 spray NS DAILY [facility] Last Admin: 07/13/17 10:22 Dose: 2 sprays Furosemide (Lasix Injection -) 80 mg IVPUSH DAILY [facility] Last Admin: 07/13/17 10:10 Dose: 80 mg Gabapentin (Neurontin -) 300 mg PO TID [facility] Last Admin: 07/13/17 06:10 Dose: 300 mg Guaifenesin (Robitussin -) 10 ml PO Q6H PRN PRN Reason: COUGH Insulin Aspart (Novolog Vial Sliding Scale -) 1 vial SQ HS [facility] PRN Reason: Protocol Last Admin: 07/12/17 21:54 Dose: 10 units Insulin Aspart (Novolog Vial Sliding Scale -) 1 vial SQ TIDAC [facility] PRN Reason: Protocol Last Admin: 07/13/17 06:14 Dose: 10 units Insulin Detemir (Levemir Vial) 34 units SQ BID@0700,2200 [facility] Last Admin: 07/13/17 06:09 Dose: 34 units Metformin HCl (Glucophage -) 500 mg PO BID@0700,1630 [facility] Last Admin: 07/13/17 06:10 Dose: 500 mg Methylprednisolone Sodium Succinate (Solu-Medrol -) 40 mg IVPUSH Q8H-IV [facility] Pantoprazole Sodium (Protonix -) 40 mg PO DAILY [facility] Last Admin: 07/13/17 10:08 Dose: 40 mg Prednisone (Deltasone -) 60 mg PO DAILY [facility] Sitagliptin Phosphate (Januvia -) 50 mg PO ACBK [facility] Last Admin: 07/13/17 06:10 Dose: 50 mg Sodium Chloride ([place] Nasal [place] -) 2 spray NS TID PRN PRN Reason: NASAL CONGESTION Last Admin: 07/12/17 10:58 Dose: 2 sprays Tamsulosin HCl (Flomax -) 0.4 mg PO DAILY@0830 [facility] Last Admin: 07/13/17 10:08 Dose: 0.4 mg Verapamil HCl (Calan Sr -) 240 mg PO BID [facility] Last Admin: 07/13/17 10:11 Dose: 240 mg - Objective Vital Signs: Vital Signs Temperature 97.1 F L 07/13/17 10:00 Pulse Rate 88 07/13/17 10:08 Respiratory Rate 22 07/13/17 10:00 Blood Pressure 134/80 07/13/17 10:00 O2 Sat by Pulse Oximetry (%) 96 07/13/17 09:00 Constitutional: Yes: Well Nourished, Calm Eyes: Yes: WNL HENT: Yes: WNL Cardiovascular: Yes: Pulse Irregular, S1, S2 Respiratory: Yes: Wheezes (scattered kaylynn wheezes) Gastrointestinal: Yes: Normal Bowel Sounds, Soft Extremities: Yes: WNL Edema: Yes Labs: CBC, BMP 07/12/17 13:35 07/12/17 13:35 Assessment/Plan Problems (1) Sleep apnea Code(s): G47.30 - SLEEP APNEA, UNSPECIFIED (2) CHF exacerbation Code(s): I50.9 - HEART FAILURE, UNSPECIFIED Qualifiers: Congestive heart failure type: unspecified congestive heart failure type Qualified Code(s): I50.9 - Heart failure, unspecified (3) COPD exacerbation Code(s): J44.1 - CHRONIC OBSTRUCTIVE PULMONARY DISEASE W (ACUTE) EXACERBATION (4) Acute on chronic respiratory failure with hypoxemia Code(s): J96.21 - ACUTE AND CHRONIC RESPIRATORY FAILURE WITH HYPOXIA (5) Obesity hypoventilation syndrome Code(s): E66.2 - MORBID (SEVERE) OBESITY WITH ALVEOLAR HYPOVENTILATION Assessment/Plan PREDNISONE IN AM ABX Lasix Rate control per Cardiology AC NIPPV overnight and PRN Dr Oscar
[2017-07-13] MEDS: methylPREDNISolone NA SUCC 40 MG/1 ML VIAL IVPUSH SCH ×2 (11:51→17:50)
--- NOTE | 2017-07-13 12:12 | PN ---
Progress Note (short form) - Note Progress Note: s: still sob but much better, no cp palps dizzy, le edema better o: Vital Signs Period Temp Pulse Resp BP Sys/Park Pulse Ox Last 24 Hr 97.1 F-98.3 F 86-106 20-22 103-144/59-83 93-97 NAD, calm JVD difficult to assess due to size, neck supple mild wheeze, nl effort Irregularly, irregular nl s1, s2 no m/r/g + bs soft obese nt nd ext with trace edema no cyanosis or clubbing + dp/pt no carotid bruits no jaundice, diaphoresis. aaox3 Current Medications Generic Name Dose Route Start Last Admin Trade Name Freq PRN Reason Stop Dose Admin Acetaminophen 650 mg 07/04/17 21:58 07/05/17 04:47 Tylenol - PO 650 mg Q6H PRN Administration FEVER OR PAIN Albuterol Sulfate 1 amp 07/11/17 12:31 07/13/17 06:45 Ventolin 0.083% Nebulizer Soln - NEB 1 amp Q4H PRN Administration SHORT OF BREATH/WHEEZING Apixaban 5 mg 07/04/17 22:00 07/12/17 21:48 Eliquis - PO 5 mg BID ARVIND Administration Atorvastatin Calcium 80 mg 07/04/17 22:00 07/12/17 21:48 Lipitor - PO 80 mg HS ARVIND Administration Budesonide/Formoterol Fumarate 2 puff 07/13/17 11:30 Symbicort 160/4.5mcg - IH BID ARVIND Digoxin 0.125 mg 07/05/17 10:00 07/13/17 10:08 Lanoxin - PO 0.125 mg DAILY ARVIND Administration Fluticasone Propionate 2 spray 07/07/17 12:30 07/13/17 10:22 Flonase - NS 2 sprays DAILY ARVIND Administration Furosemide 80 mg 07/05/17 10:00 07/13/17 10:10 Lasix Injection - IVPUSH 80 mg DAILY ARVIND Administration Gabapentin 300 mg 07/04/17 22:00 07/13/17 06:10 Neurontin - PO 300 mg TID ARVIND Administration Guaifenesin 10 ml 07/10/17 20:28 Robitussin - PO Q6H PRN COUGH Insulin Aspart 1 vial 07/11/17 22:00 07/12/17 21:54 Novolog Vial Sliding Scale - SQ 10 units HS ARVIND Administration Protocol Insulin Aspart 1 vial 07/11/17 16:30 07/13/17 12:06 Novolog Vial Sliding Scale - SQ 10 units TIDAC ARVIND Administration Protocol Insulin Detemir 34 units 07/11/17 07:00 07/13/17 06:09 Levemir Vial SQ 34 units BID@0700,2200 ARVIND Administration Metformin HCl 500 mg 07/05/17 07:00 07/13/17 06:10 Glucophage - PO 500 mg BID@0700,1630 ARVIND Administration Methylprednisolone Sodium Succinate 40 mg 07/13/17 11:30 07/13/17 11:51 Solu-Medrol - IVPUSH Not Given Q8H-IV ARVIND Pantoprazole Sodium 40 mg 07/05/17 10:00 07/13/17 10:08 Protonix - PO 40 mg DAILY ARVIND Administration Prednisone 60 mg 07/14/17 10:00 Deltasone - PO DAILY ARVIND Sitagliptin Phosphate 50 mg 07/05/17 07:00 07/13/17 06:10 Januvia - PO 50 mg ACBK ARVIND Administration Sodium Chloride 2 spray 07/07/17 11:29 07/12/17 10:58 [place] Nasal [place] - NS 2 sprays TID PRN Administration NASAL CONGESTION Tamsulosin HCl 0.4 mg 07/05/17 08:30 07/13/17 10:08 Flomax - PO 0.4 mg DAILY@0830 ARVIND Administration Verapamil HCl 240 mg 07/13/17 10:00 07/13/17 10:11 Calan Sr - PO 240 mg BID ARVIND Administration CBC, BMP 07/12/17 13:35 07/12/17 13:35 EKG: afib, 123 bpm. PVC. No ischemic changes. tele: mostly rate controlled afib. 90's-100's. cxr: mild congestive changes. echo 07/2016: Nl lv/rv. 1+ AR mibi 12/2012: small posterior ischemia vs artifact, nl lvef, no tid a/p: 72 yo male with h/o AFib s/p prior DCCV 12/2015 to SR on AC, HTN, HL, dchf , PVCs with palpitations, morbid obesity, NATHANIEL on bipap, severe COPD, here with sob. sob, copd: - has tendency towards volume retention felicia when receives steroids for copd exacerbation - vol status appears secondary, recent uri sx's and diffuse wheezes. copd likely cause of current sob. However, in light of worsened LE edema and congestion on cxr --> lasix 80 mg IV daily, can change back to po lasix when on po steroids - copd/nathaniel tx per pulm acute on chronic diastolic chf: - diuresing well sx's improving, bmp stable - cont lasix 80 mg IV daily, can change back to po lasix when on po steroids - daily weight, bmp , I/O's paroxysmal AF/flutter -cont eliquis for AC -new dx 2015--req'd amio for HR control then (now off due to severe lung dz), s/ p successful DCCV 12/24, then reverted to afib -rate typically becomes elevated in settings of respiratory distress. con't verapamil, dig. Ongoing diureseis and mgm't of copd per pulm/pmd -avoiding BB given severe bronchospasm/copd; would like to avoid long-term amio for same reason hld: -continue home statin htn: -stable on current meds possible cad: -pt had borderline positive mibi in 2013 vs soft tissue attenuation artifact -never had angina sx's -no signs acs here -continue medical management with statin, AC without ASA
[2017-07-13] MEDS: BUDESONIDE/FORMETEROL FUMARATE 160/4.5 mcg INHALER IH SCH ×2 (13:59→23:32)
[2017-07-13] MEDS: APIXABAN 5 MG TABLET PO SCH (23:22)
[2017-07-13] MEDS: ATORVASTATIN CA 80 MG TABLET (FP) PO SCH (23:22)
[2017-07-14] MEDS ORDERED: INSULIN (NOVOLOG) ASPART 100 UNITS/ML 10ML VIAL SQ ONE (01:40)
[2017-07-14] MEDS: methylPREDNISolone NA SUCC 40 MG/1 ML VIAL IVPUSH SCH ×2 (02:32→10:35)
[2017-07-14] MEDS: GABAPENTIN 300 MG CAPSULE (FP) PO SCH ×3 (06:31→21:31)
[2017-07-14] MEDS: sitaGLIPtin PHOSPHATE 50 MG TABLET PO SCH (06:31)
[2017-07-14] MEDS: INSULIN DETEMIR 100 UNITS/ML MDV SQ SCH ×2 (06:31→21:31)
[2017-07-14] MEDS: INSULIN SLIDING SCALE (NOVOLOG) 1 VIAL SQ SCH ×4 (06:31→21:32)
[2017-07-14] MEDS: metFORMIN HCL 500 MG TABLET (FP) PO SCH ×2 (06:31→16:58)
[2017-07-14] MEDS: TAMSULOSIN HCL 0.4 MG CAP.ER.24H (FP) PO SCH (08:16)
[2017-07-14] MEDS: predniSONE 20 MG TABLET (UD) PO SCH (10:33)
[2017-07-14] MEDS: DIGOXIN 0.125 MG TABLET (FP) PO SCH (10:33)
[2017-07-14] MEDS: APIXABAN 5 MG TABLET PO SCH ×2 (10:33→21:31)
[2017-07-14] MEDS: PANTOPRAZOLE 40 MG TABLET (FP) PO SCH (10:34)
[2017-07-14] MEDS: VERAPAMIL HCL 240 MG E.R. TABLET (FP) PO SCH ×2 (10:34→21:31)
[2017-07-14] MEDS: FUROSEMIDE 100 MG/10 ML INJECTABLE VIAL IVPUSH SCH ×2 (10:35→10:46)
[2017-07-14] MEDS: BUDESONIDE/FORMETEROL FUMARATE 160/4.5 mcg INHALER IH SCH ×2 (10:36→21:33)
[2017-07-14] MEDS: FLUTICASONE PROP 0.05% 16 GM NASAL SPRAY NS SCH (10:37)
--- NOTE | 2017-07-14 11:24 | PN ---
Progress Note, Physician History of Present Illness: PULMONARY ALERT,NAD,-SOB,-COUGH - Current Medication List Current Medications: Active Medications Acetaminophen (Tylenol -) 650 mg PO Q6H PRN PRN Reason: FEVER OR PAIN Last Admin: 07/05/17 04:47 Dose: 650 mg Albuterol Sulfate (Ventolin 0.083% Nebulizer Soln -) 1 amp NEB Q4H PRN PRN Reason: SHORT OF BREATH/WHEEZING Last Admin: 07/13/17 12:11 Dose: 1 amp Apixaban (Eliquis -) 5 mg PO BID [facility] Last Admin: 07/14/17 10:33 Dose: 5 mg Atorvastatin Calcium (Lipitor -) 80 mg PO [facility] Last Admin: 07/13/17 23:22 Dose: 80 mg Budesonide/Formoterol Fumarate (Symbicort 160/4.5mcg -) 2 puff IH BID [facility] Last Admin: 07/14/17 10:36 Dose: 2 puff Digoxin (Lanoxin -) 0.125 mg PO DAILY [facility] Last Admin: 07/14/17 10:33 Dose: 0.125 mg Fluticasone Propionate (Flonase -) 2 spray NS DAILY [facility] Last Admin: 07/14/17 10:37 Dose: 2 sprays Furosemide (Lasix Injection -) 80 mg IVPUSH DAILY [facility] Last Admin: 07/14/17 10:46 Dose: Not Given Gabapentin (Neurontin -) 300 mg PO TID [facility] Last Admin: 07/14/17 06:31 Dose: 300 mg Guaifenesin (Robitussin -) 10 ml PO Q6H PRN PRN Reason: COUGH Insulin Aspart (Novolog Vial Sliding Scale -) 1 vial SQ [facility] PRN Reason: Protocol Last Admin: 07/13/17 23:45 Dose: Not Given Insulin Aspart (Novolog Vial Sliding Scale -) 1 vial SQ TIDAC [facility] PRN Reason: Protocol Last Admin: 07/14/17 06:31 Dose: 8 units Insulin Detemir (Levemir Vial) 34 units SQ BID@0700,2200 [facility] Last Admin: 07/14/17 06:31 Dose: 34 units Metformin HCl (Glucophage -) 500 mg PO BID@0700,1630 [facility] Last Admin: 07/14/17 06:31 Dose: 500 mg Methylprednisolone Sodium Succinate (Solu-Medrol -) 40 mg IVPUSH Q8H-IV [facility] Last Admin: 07/14/17 10:35 Dose: 40 mg Pantoprazole Sodium (Protonix -) 40 mg PO DAILY [facility] Last Admin: 07/14/17 10:34 Dose: 40 mg Prednisone (Deltasone -) 60 mg PO DAILY [facility] Last Admin: 07/14/17 10:33 Dose: 60 mg Sitagliptin Phosphate (Januvia -) 50 mg PO ACBK [facility] Last Admin: 07/14/17 06:31 Dose: 50 mg Sodium Chloride ([place] Nasal [place] -) 2 spray NS TID PRN PRN Reason: NASAL CONGESTION Last Admin: 07/12/17 10:58 Dose: 2 sprays Tamsulosin HCl (Flomax -) 0.4 mg PO DAILY@0830 [facility] Last Admin: 07/14/17 08:16 Dose: 0.4 mg Verapamil HCl (Calan Sr -) 240 mg PO BID [facility] Last Admin: 07/14/17 10:34 Dose: 240 mg - Objective Vital Signs: Vital Signs Temperature 98 F 07/14/17 06:00 Pulse Rate 112 H 07/14/17 10:33 Respiratory Rate 20 07/14/17 06:00 Blood Pressure 101/41 07/14/17 06:00 O2 Sat by Pulse Oximetry (%) 97 07/13/17 21:00 Constitutional: Yes: Calm, Obese Eyes: Yes: WNL HENT: Yes: WNL Neck: Yes: WNL Cardiovascular: Yes: Pulse Irregular, S1, S2 Respiratory: Yes: Wheezes (FEW SCATTERED WHEEZES) Gastrointestinal: Yes: Normal Bowel Sounds, Soft Extremities: Yes: WNL Edema: No Labs: CBC, BMP Assessment/Plan Problems (1) Sleep apnea Code(s): G47.30 - SLEEP APNEA, UNSPECIFIED (2) CHF exacerbation Code(s): I50.9 - HEART FAILURE, UNSPECIFIED Qualifiers: Congestive heart failure type: unspecified congestive heart failure type Qualified Code(s): I50.9 - Heart failure, unspecified (3) COPD exacerbation Code(s): J44.1 - CHRONIC OBSTRUCTIVE PULMONARY DISEASE W (ACUTE) EXACERBATION (4) Acute on chronic respiratory failure with hypoxemia Code(s): J96.21 - ACUTE AND CHRONIC RESPIRATORY FAILURE WITH HYPOXIA (5) Obesity hypoventilation syndrome Code(s): E66.2 - MORBID (SEVERE) OBESITY WITH ALVEOLAR HYPOVENTILATION Assessment/Plan PREDNISONE IN AM ABX Lasix Rate control per Cardiology AC NIPPV overnight and PRN Dr Oscar
--- NOTE | 2017-07-14 12:20 | PN ---
Progress Note (short form) - Note Progress Note: s: sob much better, no cp palps dizzy, le edema better o: Vital Signs Period Temp Pulse Resp BP Sys/Park Pulse Ox Last 24 Hr 97.6 F-98.1 F 85-114 20-22 101-154/41-78 97-98 NAD, calm JVD difficult to assess due to size, neck supple mild wheeze, nl effort Irregularly, irregular nl s1, s2 no m/r/g + bs soft obese nt nd ext with trace edema no cyanosis or clubbing + dp/pt no carotid bruits no jaundice, diaphoresis. aaox3 Current Medications Generic Name Dose Route Start Last Admin Trade Name Freq PRN Reason Stop Dose Admin Acetaminophen 650 mg 07/04/17 21:58 07/05/17 04:47 Tylenol - PO 650 mg Q6H PRN Administration FEVER OR PAIN Albuterol Sulfate 1 amp 07/11/17 12:31 07/13/17 12:11 Ventolin 0.083% Nebulizer Soln - NEB 1 amp Q4H PRN Administration SHORT OF BREATH/WHEEZING Apixaban 5 mg 07/04/17 22:00 07/14/17 10:33 Eliquis - PO 5 mg BID ARIVND Administration Atorvastatin Calcium 80 mg 07/04/17 22:00 07/13/17 23:22 Lipitor - PO 80 mg HS ARVIND Administration Budesonide/Formoterol Fumarate 2 puff 07/13/17 11:30 07/14/17 10:36 Symbicort 160/4.5mcg - IH 2 puff BID ARVIND Administration Digoxin 0.125 mg 07/05/17 10:00 07/14/17 10:33 Lanoxin - PO 0.125 mg DAILY ARVIND Administration Fluticasone Propionate 2 spray 07/07/17 12:30 07/14/17 10:37 Flonase - NS 2 sprays DAILY ARVIND Administration Furosemide 40 mg 07/15/17 10:00 Lasix - PO DAILY ARVIND Gabapentin 300 mg 07/04/17 22:00 07/14/17 06:31 Neurontin - PO 300 mg TID ARVIND Administration Guaifenesin 10 ml 07/10/17 20:28 Robitussin - PO Q6H PRN COUGH Insulin Aspart 1 vial 07/11/17 22:00 07/13/17 23:45 Novolog Vial Sliding Scale - SQ Not Given HS [facility] Protocol Insulin Aspart 1 vial 07/11/17 16:30 07/14/17 11:39 Novolog Vial Sliding Scale - SQ 10 units TIDAC ARVIND Administration Protocol Insulin Detemir 34 units 07/11/17 07:00 07/14/17 06:31 Levemir Vial SQ 34 units BID@0700,2200 ARVIND Administration Metformin HCl 500 mg 07/05/17 07:00 07/14/17 06:31 Glucophage - PO 500 mg BID@0700,1630 ARVIND Administration Pantoprazole Sodium 40 mg 07/05/17 10:00 07/14/17 10:34 Protonix - PO 40 mg DAILY ARVIND Administration Prednisone 60 mg 07/14/17 10:00 07/14/17 10:33 Deltasone - PO 60 mg DAILY ARVIND Administration Sitagliptin Phosphate 50 mg 07/05/17 07:00 07/14/17 06:31 Januvia - PO 50 mg ACBK ARVIND Administration Sodium Chloride 2 spray 07/07/17 11:29 07/12/17 10:58 [place] Nasal [place] - NS 2 sprays TID PRN Administration NASAL CONGESTION Tamsulosin HCl 0.4 mg 07/05/17 08:30 07/14/17 08:16 Flomax - PO 0.4 mg DAILY@0830 ARVIND Administration Verapamil HCl 240 mg 07/13/17 10:00 07/14/17 10:34 Calan Sr - PO 240 mg BID ARVIND Administration CBC, BMP 07/12/17 13:35 07/12/17 13:35 EKG: afib, 123 bpm. PVC. No ischemic changes. tele: mostly rate controlled afib. 90's-100's. cxr: mild congestive changes. echo 07/2016: Nl lv/rv. 1+ AR mibi 12/2012: small posterior ischemia vs artifact, nl lvef, no tid a/p: 72 yo male with h/o AFib s/p prior DCCV 12/2015 to SR on AC, HTN, HL, dchf , PVCs with palpitations, morbid obesity, ANTHANIEL on bipap, severe COPD, here with sob. sob, copd: - has tendency towards volume retention felicia when receives steroids for copd exacerbation - vol status appears secondary, recent uri sx's and diffuse wheezes. copd likely cause of current sob. However, in light of worsened LE edema and congestion on cxr --> lasix 80 mg IV daily was given for several days, now euvolemic and steroids being tapered, now will change back to po home dose 40 qd - copd/nathaniel tx per pulm acute on chronic diastolic chf: - diuresing well sx's improving, bmp stable - cont lasix 80 mg IV daily, can change back to po lasix when on po steroids - daily weight, bmp , I/O's paroxysmal AF/flutter -cont eliquis for AC -new dx 2015--req'd amio for HR control then (now off due to severe lung dz), s/ p successful DCCV 12/24, then reverted to afib -rate typically becomes elevated in settings of respiratory distress. con't verapamil, dig. Ongoing diureseis and mgm't of copd per pulm/pmd -avoiding BB given severe bronchospasm/copd; would like to avoid long-term amio for same reason hld: -continue home statin htn: -stable on current meds possible cad: -pt had borderline positive mibi in 2012 vs soft tissue attenuation artifact -never had angina sx's -no signs acs here -continue medical management with statin, AC without ASA
--- NOTE | 2017-07-14 14:45 | PN ---
Physical Exam: SUBJECTIVE: Patient seen and examined at the bedside. He states his breathing has improved. Eager to go home, but understands that due to the weather, he may need to stay overnight. Denies chest pain. OBJECTIVE: +mild wheezing on left upper lobe, lungs otherwise clear but diminished Incentive spirometer as tolerated Home oxygen dependent Vital Signs Period Temp Pulse Resp BP Sys/Park Pulse Ox Last 24 Hr 97.6 F-98.1 F 85-114 20-22 101-154/41-78 97-98 GENERAL: The patient is awake, alert, and fully oriented, in no acute distress. HEAD: Normal with no signs of trauma. EYES: PERRL, extraocular movements intact, sclera anicteric, conjunctiva clear. No ptosis. ENT: Ears normal, nares patent, oropharynx clear without exudates, moist mucous membranes. NECK: Trachea midline, full range of motion, supple. LUNGS: +mild wheezing on left upper lobe, lungs otherwise clear but diminished ABDOMEN: obese abdomen, non tender rebound, no hepatosplenomegaly, no masses. EXTREMITIES: trace bilateral lower ext edema. NEUROLOGICAL: Normal speech, gait not observed. PSYCH: Normal mood, normal affect. SKIN: Warm, dry, normal turgor, no rashes or lesions noted Laboratory Results - last 24 hr 07/13/17 07/13/17 07/14/17 16:58 23:20 01:31 POC Glucometer 394 428 352 07/14/17 07/14/17 05:37 11:09 POC Glucometer 296 338 Active Medications Generic Name Dose Route Start Last Admin Trade Name Freq PRN Reason Stop Dose Admin Acetaminophen 650 mg 07/04/17 21:58 07/05/17 04:47 Tylenol - PO 650 mg Q6H PRN Administration FEVER OR PAIN Albuterol Sulfate 1 amp 07/11/17 12:31 07/13/17 12:11 Ventolin 0.083% Nebulizer Soln - NEB 1 amp Q4H PRN Administration SHORT OF BREATH/WHEEZING Apixaban 5 mg 07/04/17 22:00 07/14/17 10:33 Eliquis - PO 5 mg BID ARVIND Administration Atorvastatin Calcium 80 mg 07/04/17 22:00 07/13/17 23:22 Lipitor - PO 80 mg HS ARVIND Administration Budesonide/Formoterol Fumarate 2 puff 07/13/17 11:30 07/14/17 10:36 Symbicort 160/4.5mcg - IH 2 puff BID ARVIND Administration Digoxin 0.125 mg 07/05/17 10:00 07/14/17 10:33 Lanoxin - PO 0.125 mg DAILY ARVIND Administration Fluticasone Propionate 2 spray 07/07/17 12:30 07/14/17 10:37 Flonase - NS 2 sprays DAILY ARVIND Administration Furosemide 40 mg 07/15/17 10:00 Lasix - PO DAILY ARVIND Gabapentin 300 mg 07/04/17 22:00 07/14/17 13:38 Neurontin - PO 300 mg TID ARVIND Administration Guaifenesin 10 ml 07/10/17 20:28 Robitussin - PO Q6H PRN COUGH Insulin Aspart 1 vial 07/11/17 22:00 07/13/17 23:45 Novolog Vial Sliding Scale - SQ Not Given HS ARVIND Protocol Insulin Aspart 1 vial 07/11/17 16:30 07/14/17 11:39 Novolog Vial Sliding Scale - SQ 10 units TIDAC ARVIND Administration Protocol Insulin Detemir 34 units 07/11/17 07:00 07/14/17 06:31 Levemir Vial SQ 34 units BID@0700,2200 ARVIND Administration Metformin HCl 500 mg 07/05/17 07:00 07/14/17 06:31 Glucophage - PO 500 mg BID@0700,1630 ARVIND Administration Pantoprazole Sodium 40 mg 07/05/17 10:00 07/14/17 10:34 Protonix - PO 40 mg DAILY ARVIND Administration Prednisone 60 mg 07/14/17 10:00 07/14/17 10:33 Deltasone - PO 60 mg DAILY ARVIND Administration Sitagliptin Phosphate 50 mg 07/05/17 07:00 07/14/17 06:31 Januvia - PO 50 mg ACBK ARVIND Administration Sodium Chloride 2 spray 07/07/17 11:29 07/12/17 10:58 [place] Nasal [place] - NS 2 sprays TID PRN Administration NASAL CONGESTION Tamsulosin HCl 0.4 mg 07/05/17 08:30 07/14/17 08:16 Flomax - PO 0.4 mg DAILY@0830 ARVIND Administration Verapamil HCl 240 mg 07/13/17 10:00 07/14/17 10:34 Calan Sr - PO 240 mg BID ARVIND Administration ASSESSMENT/PLAN: Patient is a 72 year old male with a significant past medical history of CHF, atrial fibrillation, LUCY, morbid obesity, diabetes, HTN, asthrma, COPD. Admitted on 07/04/2017 with acute on chronic CHF and COPD exacerbation. Cardiology Acute on chronic diastolic CHF Lasix 40mg PO daily Monitor intake and output, daily weights BMP, labs in a.m. Monitor on tele Cardiology following Afib, on Digoxin and Eliquis Rate controlled Hld, on Lipitor Pulmonary COPD exacerbation, acute on chronic Home oxygen dependent Will need pulmonary rehab, possible SNF on d/c Tolerating OOB to chair, denies shortness of breath on exam On Prednisone taper Protonix while on Prednisone PT to evaluate prior to d/c F.E.N. Fluids: PO adequate Electrolytes: monitor Nutrition: low sodium. Prophylaxis: GI: Protonix DVT: Eliquis Disposition: full code. Visit type - Emergency Visit Emergency Visit: Yes ED Registration Date: 07/04/17 Care time: The patient presented to the Emergency Department on the above date and was hospitalized for further evaluation of their emergent condition. - New Patient This patient is new to me today: Yes Date on this admission: 07/14/17 - Critical Care Critical Care patient: No - Discharge Referral Referred to [facility] Med P.C.: No
[2017-07-14] MEDS: ATORVASTATIN CA 80 MG TABLET (FP) PO SCH (21:31)
[2017-07-14] MEDS: ALBUTEROL SO4 0.083% IH SOL 2.5 MG/3 ML VIAL.NEB. NEB PRN (22:10)
[2017-07-15] MEDS: metFORMIN HCL 500 MG TABLET (FP) PO SCH ×2 (06:38→17:20)
[2017-07-15] MEDS: GABAPENTIN 300 MG CAPSULE (FP) PO SCH ×2 (06:39→13:55)
[2017-07-15] MEDS: INSULIN SLIDING SCALE (NOVOLOG) 1 VIAL SQ SCH ×3 (06:39→17:23)
[2017-07-15] MEDS: INSULIN DETEMIR 100 UNITS/ML MDV SQ SCH (06:39)
[2017-07-15] MEDS: sitaGLIPtin PHOSPHATE 50 MG TABLET PO SCH (06:39)
[2017-07-15] MEDS: ALBUTEROL SO4 0.083% IH SOL 2.5 MG/3 ML VIAL.NEB. NEB PRN ×2 (06:50→18:11)
[2017-07-15 08:21] VITALS: BP 119/65; TEMP 98.1
[2017-07-15 08:26] LABS: HEMATOCRIT 39.3 % (35.4-49); HEMOGLOBIN 12.1 GM/dL (11.7-16.9); MCH 25.7 pg (25.7-33.7); MCHC 30.8 g/dl (32.0-35.9); MEAN CELL VOLUME 83.4 fl (80-96); MEAN PLT VOLUME 8.7 fl (7.5-11.1); PLATELET COUNT 210 K/MM3 (134-434); RBC 4.71 M/mm3 (4.00-5.60); RDW 20.3 % (11.9-15.9); WHITE BLOOD COUNT 15.8 K/mm3 (4.0-10.0)
[2017-07-15 08:58] LABS: ALBUMIN 2.7 g/dl (3.4-5.0); ANION GAP 6 (8-16); BLOOD UREA NITROGEN 26 mg/dL (7-18); CHLORIDE 99 mmol/L (98-107); CO2 33 mmol/L (21-32); GLUCOSE,RANDOM 239 mg/dL (74-106); MAGNESIUM 2.3 mg/dL (1.8-2.4); POTASSIUM 4.4 mmol/L (3.5-5.1); SODIUM 138 mmol/L (136-145)
[2017-07-15 09:01] LABS: ALK PHOS 92 U/L (45-117); BILIRUBIN,TOTAL 0.6 mg/dL (0.2-1.0); CREATININE 0.8 mg/dL (0.7-1.3); SGOT/AST 10 U/L (15-37); SGPT/ALT 40 U/L (12-78); TOT PROT 5.5 g/dl (6.4-8.2)
[2017-07-15] MEDS: predniSONE 20 MG TABLET (UD) PO SCH (09:54)
[2017-07-15] MEDS: PANTOPRAZOLE 40 MG TABLET (FP) PO SCH (09:54)
[2017-07-15] MEDS: APIXABAN 5 MG TABLET PO SCH (09:54)
[2017-07-15] MEDS: VERAPAMIL HCL 240 MG E.R. TABLET (FP) PO SCH (09:54)
[2017-07-15] MEDS: FUROSEMIDE 40 MG TABLET (FP) PO SCH ×2 (09:55→09:59)
[2017-07-15] MEDS: BUDESONIDE/FORMETEROL FUMARATE 160/4.5 mcg INHALER IH SCH (09:55)
[2017-07-15] MEDS: TAMSULOSIN HCL 0.4 MG CAP.ER.24H (FP) PO SCH (09:55)
[2017-07-15] MEDS: DIGOXIN 0.125 MG TABLET (FP) PO SCH (09:55)
[2017-07-15] MEDS: FLUTICASONE PROP 0.05% 16 GM NASAL SPRAY NS SCH (09:55)
[2017-07-15 09:57] VITALS: PULSE 85
[2017-07-15 11:07] LABS: ANISOCYTOSIS 1+
--- NOTE | 2017-07-15 12:03 | PN ---
Progress Note (short form) - Note Progress Note: s: sob much better, no cp palps dizzy, le edema better o: Vital Signs Period Temp Pulse Resp BP Sys/Park Pulse Ox Last 24 Hr 97.3 F-98.1 F 85-99 18-22 109-125/50-71 97-98 NAD, calm JVD difficult to assess due to size, neck supple min wheeze, nl effort Irregularly, irregular nl s1, s2 no m/r/g + bs soft obese nt nd ext with trace edema no cyanosis or clubbing + dp/pt no carotid bruits no jaundice, diaphoresis. aaox3 Current Medications Generic Name Dose Route Start Last Admin Trade Name Freq PRN Reason Stop Dose Admin Acetaminophen 650 mg 07/04/17 21:58 07/05/17 04:47 Tylenol - PO 650 mg Q6H PRN Administration FEVER OR PAIN Albuterol Sulfate 1 amp 07/11/17 12:31 07/15/17 06:50 Ventolin 0.083% Nebulizer Soln - NEB 1 amp Q4H PRN Administration SHORT OF BREATH/WHEEZING Apixaban 5 mg 07/04/17 22:00 07/15/17 09:54 Eliquis - PO 5 mg BID ARVIND Administration Atorvastatin Calcium 80 mg 07/04/17 22:00 07/14/17 21:31 Lipitor - PO 80 mg HS ARVIND Administration Budesonide/Formoterol Fumarate 2 puff 07/13/17 11:30 07/15/17 09:55 Symbicort 160/4.5mcg - IH 2 puff BID ARVIND Administration Digoxin 0.125 mg 07/05/17 10:00 07/15/17 09:55 Lanoxin - PO 0.125 mg DAILY ARVIND Administration Fluticasone Propionate 2 spray 07/07/17 12:30 07/15/17 09:55 Flonase - NS 2 sprays DAILY ARVIND Administration Furosemide 40 mg 07/15/17 10:00 07/15/17 09:59 Lasix - PO Not Given DAILY ARVIND Gabapentin 300 mg 07/04/17 22:00 07/15/17 06:39 Neurontin - PO 300 mg TID ARVIND Administration Guaifenesin 10 ml 07/10/17 20:28 Robitussin - PO Q6H PRN COUGH Insulin Aspart 1 vial 07/11/17 22:00 07/14/17 21:32 Novolog Vial Sliding Scale - SQ 10 units HS ARVIND Administration Protocol Insulin Aspart 1 vial 07/11/17 16:30 07/15/17 11:57 Novolog Vial Sliding Scale - SQ 6 units TIDAC ARVIND Administration Protocol Insulin Detemir 34 units 07/11/17 07:00 07/15/17 06:39 Levemir Vial SQ 34 units BID@0700,2200 ARVIND Administration Metformin HCl 500 mg 07/05/17 07:00 07/15/17 06:38 Glucophage - PO 500 mg BID@0700,1630 ARVIND Administration Pantoprazole Sodium 40 mg 07/05/17 10:00 07/15/17 09:54 Protonix - PO 40 mg DAILY ARVIND Administration Prednisone 60 mg 07/14/17 10:00 07/15/17 09:54 Deltasone - PO 60 mg DAILY ARVIND Administration Sitagliptin Phosphate 50 mg 07/05/17 07:00 07/15/17 06:39 Januvia - PO 50 mg ACBK ARVIND Administration Sodium Chloride 2 spray 07/07/17 11:29 07/12/17 10:58 [place] Nasal [place] - NS 2 sprays TID PRN Administration NASAL CONGESTION Tamsulosin HCl 0.4 mg 07/05/17 08:30 07/15/17 09:55 Flomax - PO 0.4 mg DAILY@0830 ARVIND Administration Verapamil HCl 240 mg 07/13/17 10:00 07/15/17 09:54 Calan Sr - PO 240 mg BID ARVIND Administration CBC, BMP 07/15/17 05:25 07/15/17 05:25 EKG: afib, 123 bpm. PVC. No ischemic changes. tele: mostly rate controlled afib. 90's-100's. cxr: mild congestive changes. echo 07/2016: Nl lv/rv. 1+ AR mibi 12/2012: small posterior ischemia vs artifact, nl lvef, no tid a/p: 72 yo male with h/o AFib s/p prior DCCV 12/2015 to SR on AC, HTN, HL, dchf , PVCs with palpitations, morbid obesity, NATHANIEL on bipap, severe COPD, here with sob. sob, copd: - has tendency towards volume retention felicia when receives steroids for copd exacerbation - vol status appears secondary, recent uri sx's and diffuse wheezes. copd likely cause of current sob. However, in light of worsened LE edema and congestion on cxr --> lasix 80 mg IV daily was given for several days, now euvolemic and steroids being tapered, so changed back to po home dose 40 qd - copd/nathaniel tx per pulm acute on chronic diastolic chf: - diuresing well on iv lasix, now back on po lasix as above paroxysmal AF/flutter -cont eliquis for AC -new dx 2015--req'd amio for HR control then (now off due to severe lung dz), s/ p successful DCCV 12/24, then reverted to afib -rate typically becomes elevated in settings of respiratory distress. con't verapamil, dig. Ongoing diureseis and mgm't of copd per pulm/pmd -avoiding BB given severe bronchospasm/copd; would like to avoid long-term amio for same reason hld: -continue home statin htn: -stable on current meds possible cad: -pt had borderline positive mibi in 2012 vs soft tissue attenuation artifact -never had angina sx's -no signs acs here -continue medical management with statin, AC without ASA cardiac green stable for dc
--- NOTE | 2017-07-15 12:14 | PN ---
Progress Note, Physician History of Present Illness: PULMONARY ALERT,DOING WELL ,SOB,-COUGH - Current Medication List Current Medications: Active Medications Acetaminophen (Tylenol -) 650 mg PO Q6H PRN PRN Reason: FEVER OR PAIN Last Admin: 07/05/17 04:47 Dose: 650 mg Albuterol Sulfate (Ventolin 0.083% Nebulizer Soln -) 1 amp NEB Q4H PRN PRN Reason: SHORT OF BREATH/WHEEZING Last Admin: 07/15/17 06:50 Dose: 1 amp Apixaban (Eliquis -) 5 mg PO BID [facility] Last Admin: 07/15/17 09:54 Dose: 5 mg Atorvastatin Calcium (Lipitor -) 80 mg PO [facility] Last Admin: 07/14/17 21:31 Dose: 80 mg Budesonide/Formoterol Fumarate (Symbicort 160/4.5mcg -) 2 puff IH BID [facility] Last Admin: 07/15/17 09:55 Dose: 2 puff Digoxin (Lanoxin -) 0.125 mg PO DAILY [facility] Last Admin: 07/15/17 09:55 Dose: 0.125 mg Fluticasone Propionate (Flonase -) 2 spray NS DAILY [facility] Last Admin: 07/15/17 09:55 Dose: 2 sprays Furosemide (Lasix -) 40 mg PO DAILY [facility] Last Admin: 07/15/17 09:59 Dose: Not Given Gabapentin (Neurontin -) 300 mg PO TID [facility] Last Admin: 07/15/17 06:39 Dose: 300 mg Guaifenesin (Robitussin -) 10 ml PO Q6H PRN PRN Reason: COUGH Insulin Aspart (Novolog Vial Sliding Scale -) 1 vial SQ [facility] PRN Reason: Protocol Last Admin: 07/14/17 21:32 Dose: 10 units Insulin Aspart (Novolog Vial Sliding Scale -) 1 vial SQ TIDAC [facility] PRN Reason: Protocol Last Admin: 07/15/17 11:57 Dose: 6 units Insulin Detemir (Levemir Vial) 34 units SQ BID@0700,2200 [facility] Last Admin: 07/15/17 06:39 Dose: 34 units Metformin HCl (Glucophage -) 500 mg PO BID@0700,1630 [facility] Last Admin: 07/15/17 06:38 Dose: 500 mg Pantoprazole Sodium (Protonix -) 40 mg PO DAILY [facility] Last Admin: 07/15/17 09:54 Dose: 40 mg Prednisone (Deltasone -) 60 mg PO DAILY [facility] Last Admin: 07/15/17 09:54 Dose: 60 mg Sitagliptin Phosphate (Januvia -) 50 mg PO ACBK [facility] Last Admin: 07/15/17 06:39 Dose: 50 mg Sodium Chloride (Abernathy Marshall Nasal Marshall -) 2 spray NS TID PRN PRN Reason: NASAL CONGESTION Last Admin: 07/12/17 10:58 Dose: 2 sprays Tamsulosin HCl (Flomax -) 0.4 mg PO DAILY@0830 [facility] Last Admin: 07/15/17 09:55 Dose: 0.4 mg Verapamil HCl (Calan Sr -) 240 mg PO BID [facility] Last Admin: 07/15/17 09:54 Dose: 240 mg - Objective Vital Signs: Vital Signs Temperature 98.1 F 07/15/17 08:20 Pulse Rate 85 07/15/17 09:55 Respiratory Rate 20 07/15/17 08:20 Blood Pressure 119/65 07/15/17 08:20 O2 Sat by Pulse Oximetry (%) 98 07/15/17 06:35 Constitutional: Yes: Calm, Obese Eyes: Yes: WNL HENT: Yes: WNL Neck: Yes: WNL Cardiovascular: Yes: Pulse Irregular, S1, S2 Respiratory: Yes: CTA Bilaterally Gastrointestinal: Yes: Normal Bowel Sounds, Soft Extremities: Yes: WNL Edema: Yes Labs: CBC, BMP 07/15/17 05:25 07/15/17 05:25 Assessment/Plan Problems (1) Sleep apnea Code(s): G47.30 - SLEEP APNEA, UNSPECIFIED (2) CHF exacerbation Code(s): I50.9 - HEART FAILURE, UNSPECIFIED Qualifiers: Congestive heart failure type: unspecified congestive heart failure type Qualified Code(s): I50.9 - Heart failure, unspecified (3) COPD exacerbation Code(s): J44.1 - CHRONIC OBSTRUCTIVE PULMONARY DISEASE W (ACUTE) EXACERBATION (4) Acute on chronic respiratory failure with hypoxemia Code(s): J96.21 - ACUTE AND CHRONIC RESPIRATORY FAILURE WITH HYPOXIA (5) Obesity hypoventilation syndrome Code(s): E66.2 - MORBID (SEVERE) OBESITY WITH ALVEOLAR HYPOVENTILATION Assessment/Plan PREDNISONE ABX Lasix Rate control per Cardiology AC NIPPV overnight and PRN Dr Oscar
--- NOTE | 2017-07-15 12:40 | DS ---
Physical Examination Vital Signs: Vital Signs Temperature 98.1 F 07/15/17 08:20 Pulse Rate 85 07/15/17 09:55 Respiratory Rate 20 07/15/17 08:20 Blood Pressure 119/65 07/15/17 08:20 O2 Sat by Pulse Oximetry (%) 98 07/15/17 08:00 Constitutional: Yes: Mild Distress Eyes: Yes: WNL HENT: Yes: WNL Neck: Yes: WNL Cardiovascular: Yes: Pulse Irregular Respiratory: Yes: On Nasal O2, Poor Air Entry Gastrointestinal: Yes: WNL Renal/: Yes: WNL Musculoskeletal: Yes: WNL Extremities: Yes: WNL Edema: Yes Peripheral Pulses WNL: Yes Integumentary: Yes: WNL Wound/Incision: Yes: Clean/Dry Neurological: Yes: WNL ...Motor Strength: WNL Psychiatric: Yes: WNL Labs: CBC, BMP 07/15/17 05:25 07/15/17 05:25 Discharge Summary Reason For Visit: ACUTE ON CHRONIC CONGESTIVE HEART FAILURE Current Active Problems CHF exacerbation (Acute) COPD exacerbation (Acute) Leukocytosis (Acute) Obesity hypoventilation syndrome (Acute) Sleep apnea (Acute) Procedures: Principal: cxr/labs Hospital Course: admitted severe asthma/copd exacerbation acute on chronic with afib, tachycardia , irregular rythm, acute on chronic chf, responded to a long treatment of iv abx , steroids, nebs and cardiac monitoring. Condition: Guarded - Instructions Diet, Activity, Other Instructions: see dr lewis in 2 weeks, dr Lara in 1 week, low salt low fat ada diet Disposition: VNS/HOME HEALTH CARE - Home Medications Comprehensive Discharge Medication List: Ambulatory Orders Albuterol 0.083% Nebulizer Cielo [Ventolin 0.083% Nebulizer Soln -] 1 neb NEB Q4H PRN 08/26/16 Apixaban [Eliquis] 5 mg PO BID 08/26/16 Digoxin [Lanoxin -] 0.125 mg PO DAILY 08/26/16 Tamsulosin HCl [Flomax] 0.4 mg PO DAILY 08/26/16 Verapamil HCl [Verapamil ER] 240 mg PO BID 08/26/16 Furosemide [Lasix -] 40 mg PO DAILY 02/21/17 Pantoprazole Sodium [Protonix] 40 mg PO DAILY 03/08/17 Acetaminophen [Tylenol .Regular Strength -] 650 mg PO Q6H PRN #120 tablet Insulin (Novolog) [Novolog -] 0 units SQ AC #1 vial 04/17/17 Sitagliptin Phos/Metformin HCl [Janumet 50-1,000 mg Tablet] 1 each PO DAILY #30 tab 04/17/17 Metformin HCl 500 mg PO BID 07/04/17 Acetaminophen [Tylenol .Regular Strength -] 650 mg PO Q6H PRN tablet 07/15/17 Albuterol 0.083% Nebulizer Cielo [Ventolin 0.083% Nebulizer Soln -] 1 amp NEB Q4H PRN #120 amp 07/15/17 Apixaban [Eliquis -] 5 mg PO BID tablet 07/15/17 Atorvastatin Ca [Lipitor] 40 mg PO HS #30 tablet 07/15/17 Budesonide/Formeterol Fumarate [SYMBICORT 160/4.5mcg -] 2 puff IH BID #1 inhaler 07/15/17 Digoxin [Lanoxin -] 0.125 mg PO DAILY tablet 07/15/17 Fluticasone Prop 0.05% Nasal [Flonase -] 2 spray NS DAILY #1 spray 07/15/17 Furosemide [Lasix -] 40 mg PO DAILY tablet 07/15/17 Gabapentin [Neurontin -] 300 mg PO TID #90 capsule 07/15/17 Guaifenesin [Robitussin -] 10 ml PO Q6H PRN cup 07/15/17 Insulin (Levemir) [Levemir Flexpen -] 30 units SQ BID #4 syr 07/15/17 Metformin HCl [Glucophage -] 500 mg PO BID@0700,1630 tablet 07/15/17 Pantoprazole Sodium [Protonix -] 40 mg PO DAILY tablet.ec 07/15/17 Prednisone [Deltasone -] 60 mg PO DAILY #30 tablet 07/15/17 Tamsulosin HCl [Flomax -] 0.4 mg PO DAILY@0830 cap.er.24h 07/15/17 Verapamil HCl ER [Calan Sr -] 240 mg PO BID tablet.er 07/15/17
== END 2017-07-15 18:43 | disposition home health service (06) | DRG 291 ==
LOC: JER 12:30 → JERBED 18:20 → J8W 07-05 19:29 → J4W 07-08 19:31
PROVIDERS: ADMIT Family Medicine; ATTEND Family Medicine
DX: I11.0 Hypertensive heart disease with heart failure (principal); J18.9 Pneumonia, unspecified organism; J96.21 Acute and chronic respiratory failure with hypoxia; J44.1 Chronic obstructive pulmonary disease with (acute) exacerbation; J44.0 Chronic obstructive pulmonary disease with (acute) lower respiratory infection; E66.2 Morbid (severe) obesity with alveolar hypoventilation; I48.92 Unspecified atrial flutter; Z68.41 Body mass index [BMI] 40.0-44.9, adult; E78.5 Hyperlipidemia, unspecified; I50.33 Acute on chronic diastolic (congestive) heart failure; E11.9 Type 2 diabetes mellitus without complications; Z79.4 Long term (current) use of insulin; Z99.81 Dependence on supplemental oxygen; K21.9 Gastro-esophageal reflux disease without esophagitis; Z87.891 Personal history of nicotine dependence; I48.0 Paroxysmal atrial fibrillation; I25.10 Atherosclerotic heart disease of native coronary artery without angina pectoris
CPT/HCPCS: 36415; 71020-TC; 80048; 80053; 80162; 82550; 82803; 82962; 83605; 83735; 83880; 84484; 85025; 85027; 87040; 87804; 87899; 93005; 93010; 94010; 94640; 94660; 97116-GP; 97162-GP; 99285-25

== ENCOUNTER 2017-07-20 11:15 | Inpatient (IN) | payer OTHER ==
[2017-07-20 11:22] VITALS: BMI 44.6
[2017-07-20] MEDS ORDERED: predniSONE 20 MG TABLET (UD) PO ONE (12:03)
[2017-07-20 12:54] LABS: VENOUS PC02 43.9 mmHg (38-52); VENOUS PH 7.42 (7.32-7.42); VENOUS PO2 59.2 mmHg (28-48)
[2017-07-20] MEDS: ALBUTEROL SO4 2.5/IPRATROPIUM 0.5 INH SOL 3 ML VIAL.NEB. NEB SCH ×2 (12:58→13:11)
[2017-07-20] MEDS ORDERED: predniSONE 20 MG TABLET (UD) ONE (13:09)
[2017-07-20] MEDS ORDERED: ALBUTEROL SO4 2.5/IPRATROPIUM 0.5 INH SOL 3 ML VIAL.NEB. NEB ONE (13:10)
[2017-07-20 13:13] LABS: BASO % 0.4 % (0-2.0); EOS % 0.2 % (0-4.5); HEMATOCRIT 38.9 % (35.4-49); HEMOGLOBIN 11.8 GM/dL (11.7-16.9); LYMPH % 3.7 % (8-40); MCH 25.7 pg (25.7-33.7); MCHC 30.3 g/dl (32.0-35.9); MEAN CELL VOLUME 84.8 fl (80-96); MEAN PLT VOLUME 8.5 fl (7.5-11.1); MONO % 5.3 % (3.8-10.2); NEUT % 90.4 % (42.8-82.8); PLATELET COUNT 145 K/MM3 (134-434); RBC 4.59 M/mm3 (4.00-5.60); RDW 21.1 % (11.9-15.9); WHITE BLOOD COUNT 12.5 K/mm3 (4.0-10.0)
[2017-07-20] MEDS ORDERED: ALBUTEROL SO4 0.083% IH SOL 2.5 MG/3 ML VIAL.NEB. NEB ONE (13:14)
[2017-07-20 13:16] LABS: ALBUMIN 2.9 g/dl (3.4-5.0); ANION GAP 7 (8-16); BILIRUBIN,TOTAL 0.9 mg/dL (0.2-1.0); BLOOD UREA NITROGEN 12 mg/dL (7-18); CALCIUM 8.6 mg/dL (8.5-10.1); CHLORIDE 107 mmol/L (98-107); CO2 26 mmol/L (21-32); CREATININE 0.7 mg/dL (0.7-1.3); GLUCOSE,RANDOM 193 mg/dL (74-106); SGPT/ALT 91 U/L (12-78); SODIUM 140 mmol/L (136-145); TOT PROT 5.7 g/dl (6.4-8.2)
[2017-07-20 13:17] LABS: ALK PHOS 87 U/L (45-117)
[2017-07-20 13:19] LABS: N-TERMINAL BNP 123.26 pg/ml (5-125); POTASSIUM 4.6 mmol/L (3.5-5.1)
[2017-07-20 13:20] LABS: SGOT/AST 43 U/L (15-37)
[2017-07-20 13:25] LABS: ADD RBC MORPHOLOGY YES
[2017-07-20 13:41] LABS: INR 1.1 (0.82-1.09); PROTHROMBIN TIME (PATIENT) 12.4 SEC (9.98-11.88)
[2017-07-20 13:43] LABS: ACTIVATED PTT 27.5 SECONDS (26.9-34.4)
--- NOTE | 2017-07-20 13:56 | PDOC ---
History of Present Illness <Alison Fontanez - Last Filed: 07/20/17 16:18> - History of Present Illness Initial Comments: 07/20/17 13:52 "The patient is a 72 year old male, with a significant past medical history of COPD, asthma (on Albuterol MDI and Nebulizer tx as well as Spiriva), CHF (on 4 L oxygen 24/7 at home and on BiPAP at night, on 20 mg Lasix daily), IDDM, HTN, HLD, DM, AFib, CAD, who presents to the emergency department with shortness of breath and lower extremity edema for approximately 5 days. The patient reports he was recently admitted to the hospital on 07/04/17 with similar symptoms and discharged on 07/15/16. After he was discharged, patient reports immediately noticing dyspnea on exertion getting out of the cab and walking home. Since then he reports increased ankle swelling, more than his baseline. He reports using his Nebulizer this morning with mild relief. He also states he is compliant with his lasix (takes 40mg daily). He denies any associated chest pain , diaphoresis, or palpitations. He denies any fever, chills, headache, or dizziness. He denies any abdominal pain, nausea, vomiting, or changes in urination. Allergies: NKDA Past Surgical History: Bilateral knee surgery. Social History: Former smoker. No ETOH or recreational drug use. PCP: Dr. Brothers " <Keegan Mckenzie - Last Filed: 07/20/17 16:20> - General Chief Complaint: Respiratory Stated Complaint: SOB Time Seen by Provider: 07/20/17 11:29 Past History <Alison Fontanez - Last Filed: 07/20/17 16:18> - Past Medical History Anemia: No Asthma: No Cancer: No Cardiac Disorders: Yes (CAD, COARSE A.FIBRILATION, CHRONIC ISCHEMIC HEART DISEASE, CARDIOMYOPATHY) CVA: No COPD: Yes (EMPHYSEMA) CHF: Yes Dementia: No Diabetes: Yes (IDDM) GI Disorders: No Disorders: No HTN: Yes Hypercholesterolemia: Yes Liver Disease: Yes (FATTY LIVER) Seizures: No Thyroid Disease: No - Surgical History Abdominal Surgery: No Appendectomy: No Cardiac Surgery: No Cholecystectomy: No Lung Surgery: No Neurologic Surgery: No Orthopedic Surgery: Yes (bilateral knee surgery 1974 left knee 1979) - Family Disease History Family Disease History: Heart Disease: Father - Immunization History Immunization Up to Date: Yes - Suicide/Smoking/Psychosocial Hx Smoking Status: Yes (QUIT 2011) Smoking History: Former smoker Have you smoked in the past 12 months: No Number of Cigarettes Smoked Daily: 0 If you are a former smoker, when did you quit?: 6 YRS Cigars Per Day: 0 Information on smoking cessation initiated: No Hx Alcohol Use: No Drug/Substance Use Hx: No Substance Use Type: None Hx Substance Use Treatment: No <Keegan Mckenzie - Last Filed: 07/20/17 16:20> - Past Medical History Allergies/Adverse Reactions: Allergies Allergy/AdvReac Type Severity Reaction Status Date / Time No Known Allergies Allergy Verified 07/20/17 11:21 Home Medications: Ambulatory Orders Apixaban [Eliquis] 5 mg PO BID 08/26/16 Tamsulosin HCl [Flomax] 0.4 mg PO DAILY 08/26/16 Verapamil HCl [Verapamil ER] 240 mg PO BID 08/26/16 Insulin (Novolog) [Novolog -] 0 units SQ AC #1 vial 04/17/17 Sitagliptin Phos/Metformin HCl [Janumet 50-1,000 mg Tablet] 1 each PO DAILY #30 tab 04/17/17 Acetaminophen [Tylenol .Regular Strength -] 650 mg PO Q6H PRN tablet 07/15/17 Albuterol 0.083% Nebulizer Cielo [Ventolin 0.083% Nebulizer Soln -] 1 amp NEB Q4H PRN #120 amp 07/15/17 Atorvastatin Ca [Lipitor] 40 mg PO HS #30 tablet 07/15/17 Budesonide/Formeterol Fumarate [SYMBICORT 160/4.5mcg -] 2 puff IH BID #1 inhaler 07/15/17 Digoxin [Lanoxin -] 0.125 mg PO DAILY tablet 07/15/17 Fluticasone Prop 0.05% Nasal [Flonase -] 2 spray NS DAILY #1 spray 07/15/17 Furosemide [Lasix -] 40 mg PO DAILY tablet 07/15/17 Gabapentin [Neurontin -] 300 mg PO TID #90 capsule 07/15/17 Insulin (Levemir) [Levemir Flexpen -] 30 units SQ BID #4 syr 07/15/17 Metformin HCl [Glucophage -] 500 mg PO BID@0700,1630 tablet 07/15/17 Pantoprazole Sodium [Protonix -] 40 mg PO DAILY tablet.ec 07/15/17 Prednisone [Deltasone -] 60 mg PO DAILY #30 tablet 07/15/17 Respiratory Specific PMHX - Complaint Specific PMHX Bronchitis: Yes <Keegan Mckenzie - Last Filed: 07/20/17 16:20> Review of Systems - Review of Systems Comments:: 07/20/17 13:54 "GENERAL/CONSTITUTIONAL: No fever or chills. No weakness. HEAD, EYES, EARS, NOSE AND THROAT: No change in vision. No ear pain or discharge. No sore throat. CARDIOVASCULAR: Yes shortness of breath. No chest pain. RESPIRATORY: Yes dyspnea on exertion. No wheezing, or hemoptysis. GASTROINTESTINAL: No nausea, vomiting, diarrhea or constipation. GENITOURINARY: No dysuria, frequency, or change in urination. MUSCULOSKELETAL: Yes lower extremity edema. No joint or muscle pain. No neck or back pain. SKIN: No rash NEUROLOGIC: No headache, vertigo, loss of consciousness, or change in strength/ sensation. ENDOCRINE: No increased thirst. No abnormal weight change. HEMATOLOGIC/LYMPHATIC: No anemia, easy bleeding, or history of blood clots. ALLERGIC/IMMUNOLOGIC: No hives or skin allergy. " <Keegan Mckenzie - Last Filed: 07/20/17 16:20> *Physical Exam - Vital Signs Last Vital Signs Temp Pulse Resp BP Pulse Ox 97.4 F L 104 H 26 H 141/74 97 07/20/17 11:17 07/20/17 11:17 07/20/17 11:17 07/20/17 11:17 07/20/17 14:01 <Alison Fontanez - Last Filed: 07/20/17 16:18> - Vital Signs Last Vital Signs Temp Pulse Resp BP Pulse Ox 97.4 F L 104 H 26 H 141/74 97 07/20/17 11:17 07/20/17 11:17 07/20/17 11:17 07/20/17 11:17 07/20/17 11:17 - Physical Exam Comments: 07/20/17 13:54 "GENERAL: Awake, alert, and fully oriented HEAD: No signs of trauma EYES: PERRLA, EOMI, sclera anicteric, conjunctiva clear ENT: Auricles normal inspection, hearing grossly normal, nares patent, oropharynx clear without exudates. Moist mucosa NECK: Nontender, no stepoffs, Normal ROM, supple, no lymphadenopathy, JVD, or masses LUNGS: Mild respiratory distress. Diffuse wheezing bilaterally HEART: Irregularly irregular. Regular rate, normal S1 and S2, no murmurs, rubs or gallops ABDOMEN: Soft, nontender, normoactive bowel sounds. No guarding, no rebound. No masses EXTREMITIES: 2+ lower extremity pitting edema. Normal range of motion. No clubbing or cyanosis. No cords, erythema, or tenderness NEUROLOGICAL: Cranial nerves II through XII intact. 5/5 strength and sensation in all extremities, Normal speech, normal gait SKIN: Warm, Dry, normal turgor, no rashes or lesions noted. " <Keegan Mckenzie - Last Filed: 07/20/17 16:20> ED Treatment Course - LABORATORY CBC & Chemistry Diagram: 07/20/17 12:45 07/20/17 12:45 - ADDITIONAL ORDERS Additional order review: Laboratory Results 07/20/17 07/20/17 07/20/17 12:45 12:45 12:45 PT with INR 12.40 H INR 1.10 PTT (Actin FS) 27.5 VBG pH 7.42 POC VBG pCO2 43.9 POC VBG pO2 59.2 H D Mixed VBG HCO3 27.6 H Sodium 140 Potassium 4.6 Chloride 107 Carbon Dioxide 26 D Anion Gap 7 L BUN 12 D Creatinine 0.7 Creat Clearance w eGFR > 60 Random Glucose 193 H Calcium 8.6 Total Bilirubin 0.9 D AST 43 H D ALT 91 H D Alkaline Phosphatase 87 Creatine Kinase Troponin I B-Natriuretic Peptide Total Protein 5.7 L Albumin 2.9 L 07/20/17 12:45 PT with INR INR PTT (Actin FS) VBG pH POC VBG pCO2 POC VBG pO2 Mixed VBG HCO3 Sodium Potassium Chloride Carbon Dioxide Anion Gap BUN Creatinine Creat Clearance w eGFR Random Glucose Calcium Total Bilirubin AST ALT Alkaline Phosphatase Creatine Kinase 119 Troponin I 0.02 B-Natriuretic Peptide 123.26 Total Protein Albumin 07/20/17 12:45 RBC 4.59 MCV 84.8 MCHC 30.3 L RDW 21.1 H MPV 8.5 Neutrophils % 90.4 H D Lymphocytes % 3.7 L D Monocytes % 5.3 Eosinophils % 0.2 D Basophils % 0.4 - Medications Given in the ED: ED Medications Discontinued Medications Generic Name Dose Route Start Last Admin Trade Name Spike PRN Reason Stop Dose Admin Albuterol/Ipratropium 1 amp 07/20/17 12:15 07/20/17 13:11 Duoneb - NEB 07/20/17 13:01 1 amp Q15M ARVIND Administration Prednisone 40 mg 07/20/17 12:03 07/20/17 13:11 Deltasone - PO 07/20/17 12:04 40 mg ONCE ONE Administration <Alison Fontanez - Last Filed: 07/20/17 16:18> - LABORATORY CBC & Chemistry Diagram: 07/20/17 12:45 07/20/17 12:45 - ADDITIONAL ORDERS Additional order review: Laboratory Results 07/20/17 07/20/17 07/20/17 12:45 12:45 12:45 PT with INR 12.40 H INR 1.10 PTT (Actin FS) 27.5 VBG pH 7.42 POC VBG pCO2 43.9 POC VBG pO2 59.2 H D Mixed VBG HCO3 27.6 H Sodium 140 Potassium 4.6 Chloride 107 Carbon Dioxide 26 D Anion Gap 7 L BUN 12 D Creatinine 0.7 Creat Clearance w eGFR > 60 Random Glucose 193 H Calcium 8.6 Total Bilirubin 0.9 D AST 43 H D ALT 91 H D Alkaline Phosphatase 87 Creatine Kinase Troponin I B-Natriuretic Peptide Total Protein 5.7 L Albumin 2.9 L 07/20/17 12:45 PT with INR INR PTT (Actin FS) VBG pH POC VBG pCO2 POC VBG pO2 Mixed VBG HCO3 Sodium Potassium Chloride Carbon Dioxide Anion Gap BUN Creatinine Creat Clearance w eGFR Random Glucose Calcium Total Bilirubin AST ALT Alkaline Phosphatase Creatine Kinase 119 Troponin I 0.02 B-Natriuretic Peptide 123.26 Total Protein Albumin 07/20/17 12:45 RBC 4.59 MCV 84.8 MCHC 30.3 L RDW 21.1 H MPV 8.5 Neutrophils % 90.4 H D Lymphocytes % 3.7 L D Monocytes % 5.3 Eosinophils % 0.2 D Basophils % 0.4 - RADIOLOGY Radiology Studies Ordered: Category Date Time Status CHEST PA & LAT [RAD] Stat Radiology 01/10/18 12:02 Ordered - Medications Given in the ED: ED Medications Discontinued Medications Generic Name Dose Route Start Last Admin Trade Name Spike PRN Reason Stop Dose Admin Albuterol/Ipratropium 1 amp 07/20/17 12:15 07/20/17 13:11 Duoneb - NEB 07/20/17 13:01 1 amp Q15M AVRIND Administration Prednisone 40 mg 07/20/17 12:03 07/20/17 13:11 Deltasone - PO 07/20/17 12:04 40 mg ONCE ONE Administration <Keegan Mckenzie - Last Filed: 07/20/17 16:20> Medical Decision Making - Medical Decision Making 07/20/17 16:18 First call placed to Dr. Brothers at 16:05. Awaiting call back. Case discussed with Dr. Brothers ar 16:18. <Alison Fontanez - Last Filed: 07/20/17 16:18> - Medical Decision Making 07/20/17 13:55 72 M with COPD, CHF presenting with SOB x 5 days. Pt clinically appears volume overloaded, with rales and pitting edema on exam. However, pt also has expiratory wheezes, suggesting COPD component. - Labs, BNP - CXR - Nebs, steroids 07/20/17 15:47 Pt with no focal consolidation on CXR. CBC,CMP WBC 12.5 K/mm3 (4.0-10.0) H 07/20/17 12:45 RBC 4.59 M/mm3 (4.00-5.60) 07/20/17 12:45 Hgb 11.8 GM/dL (11.7-16.9) 07/20/17 12:45 Hct 38.9 % (35.4-49) 07/20/17 12:45 MCV 84.8 fl (80-96) 07/20/17 12:45 MCH 25.7 pg (25.7-33.7) 07/20/17 12:45 MCHC 30.3 g/dl (32.0-35.9) L 07/20/17 12:45 RDW 21.1 % (11.9-15.9) H 07/20/17 12:45 Plt Count 145 K/MM3 (134-434) D 07/20/17 12:45 MPV 8.5 fl (7.5-11.1) 07/20/17 12:45 Neutrophils % 90.4 % (42.8-82.8) H D 07/20/17 12:45 Lymphocytes % 3.7 % (8-40) L D 07/20/17 12:45 Monocytes % 5.3 % (3.8-10.2) 07/20/17 12:45 Eosinophils % 0.2 % (0-4.5) D 07/20/17 12:45 Basophils % 0.4 % (0-2.0) 07/20/17 12:45 Sodium 140 mmol/L (136-145) 07/20/17 12:45 Potassium 4.6 mmol/L (3.5-5.1) 07/20/17 12:45 Chloride 107 mmol/L (98-107) 07/20/17 12:45 Carbon Dioxide 26 mmol/L (21-32) D 07/20/17 12:45 Anion Gap 7 (8-16) L 07/20/17 12:45 BUN 12 mg/dL (7-18) D 07/20/17 12:45 Creatinine 0.7 mg/dL (0.7-1.3) 07/20/17 12:45 Creat Clearance w eGFR > 60 (>60) 07/20/17 12:45 Random Glucose 193 mg/dL (74-106) H 07/20/17 12:45 Calcium 8.6 mg/dL (8.5-10.1) 07/20/17 12:45 Total Bilirubin 0.9 mg/dL (0.2-1.0) D 07/20/17 12:45 AST 43 U/L (15-37) H D 07/20/17 12:45 ALT 91 U/L (12-78) H D 07/20/17 12:45 Alkaline Phosphatase 87 U/L (45-117) 07/20/17 12:45 Creatine Kinase 119 IU/L (39-308) 07/20/17 12:45 Troponin I 0.02 ng/ml (0.00-0.05) 07/20/17 12:45 B-Natriuretic Peptide 123.26 pg/ml (5-125) 07/20/17 12:45 Total Protein 5.7 g/dl (6.4-8.2) L 07/20/17 12:45 Albumin 2.9 g/dl (3.4-5.0) L 07/20/17 12:45 Trop and BNP wnl. Pt likely with COPD exacerbation. Will admit to hospital. 07/20/17 16:19 Sign out given to Dr. Brothers. <Keegan Mckenzie - Last Filed: 07/20/17 16:20> *DC/Admit/Observation/Transfer - Attestations Scribe Attestion: 07/20/17 16:19 Documentation prepared by Alison Fontanez, acting as medical administrative specialist for Keegan Mckenzie MD. <Alison Fontanez - Last Filed: 07/20/17 16:18> - Discharge Dispostion Admit: Yes - Attestations Physician Attestion: 07/20/17 16:20 I, Dr. Keegan Mckenzie MD, attest that this document has been prepared under my direction and personally reviewed by me in its entirety. I further attest, that it accurately reflects all work, treatment, procedures and medical decision -making performed by me. <Keegan Mckenzie - Last Filed: 07/20/17 16:20> Diagnosis at time of Disposition: COPD (chronic obstructive pulmonary disease) - Referrals Referrals: Mars Brothers MD [Primary Care Provider] - - Patient Instructions - Post Discharge Activity
--- NOTE | 2017-07-20 15:07 | EKG ---
Test Reason : Blood Pressure : / mmHG Vent. Rate : 094 BPM Atrial Rate : 096 BPM P-R Int : 000 ms QRS Dur : 088 ms QT Int : 310 ms P-R-T Axes : 000 050 063 degrees QTc Int : 387 ms ATRIAL FIBRILLATION ABNORMAL ECG WHEN COMPARED WITH ECG OF 04-JUL-2017 14:16, NO SIGNIFICANT CHANGE WAS FOUND Confirmed by SELVIN WATTS MD ([id number]) on 07/20/2017 3:07:32 PM Referred By: Confirmed By:SELVIN WATTS MD
[2017-07-20 16:10] LABS: ANISOCYTOSIS 2+
--- NOTE | 2017-07-20 16:31 | CON.PULM ---
Consult Consult Specialty:: PULMONARY Referred by:: TERESA Reason for Consultation:: COUGH/WHEEZE/SOB/LEG EDEMA - History of Present Illness Chief Complaint: COUGH/WHEEZE/SOB/LEG EDEMA History of Present Illness: "The patient is a 72 year old male, well known by our service with a significant past medical history of COPD, asthma (on Albuterol MDI and Nebulizer tx as well as Spiriva), CHF (on 4 L oxygen 24/7 at home and on BiPAP at night, on 20 mg Lasix daily), IDDM, HTN, HLD, DM, AFib, CAD, who presents to the emergency department with shortness of breath and lower extremity edema for approximately 5 days. The patient reports he was recently admitted to the hospital on 07/04/17 with similar symptoms and discharged on 07/15/16. After he was discharged, patient reports immediately noticing dyspnea on exertion getting out of the cab and walking home. Since then he reports increased ankle swelling, more than his baseline. He reports using his Nebulizer this morning with mild relief. He also states he is compliant with his lasix (takes 40mg daily). He denies any associated chest pain, diaphoresis, or palpitations. He denies any fever, chills, headache, or dizziness. 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 No: Cancer Gastrointestinal: Yes: GERD Renal/: Yes: Renal Inusuff Endocrine: Yes: Other (MORBIDLY OBESE) - Past Surgical History Past Surgical History: Yes: Tonsillectomy - Alcohol/Substance Use Hx Alcohol Use: No - Smoking History Smoking history: Former smoker Have you smoked in the past 12 months: No Aproximately how many cigarettes per day: 0 If you are a former smoker, when did you quit?: 6 YRS - Social History Usual Living Arrangement: Other History of Recent Travel: No Home Medications - Allergies Allergies/Adverse Reactions: Allergies Allergy/AdvReac Type Severity Reaction Status Date / Time No Known Allergies Allergy Verified 07/20/17 11:21 - Home Medications Home Medications: Ambulatory Orders Apixaban [Eliquis] 5 mg PO BID 08/26/16 Tamsulosin HCl [Flomax] 0.4 mg PO DAILY 08/26/16 Verapamil HCl [Verapamil ER] 240 mg PO BID 08/26/16 Insulin (Novolog) [Novolog -] 0 units SQ AC #1 vial 04/17/17 Sitagliptin Phos/Metformin HCl [Janumet 50-1,000 mg Tablet] 1 each PO DAILY #30 tab 04/17/17 Acetaminophen [Tylenol .Regular Strength -] 650 mg PO Q6H PRN tablet 07/15/17 Albuterol 0.083% Nebulizer Cielo [Ventolin 0.083% Nebulizer Soln -] 1 amp NEB Q4H PRN #120 amp 07/15/17 Atorvastatin Ca [Lipitor] 40 mg PO HS #30 tablet 07/15/17 Budesonide/Formeterol Fumarate [SYMBICORT 160/4.5mcg -] 2 puff IH BID #1 inhaler 07/15/17 Digoxin [Lanoxin -] 0.125 mg PO DAILY tablet 07/15/17 Fluticasone Prop 0.05% Nasal [Flonase -] 2 spray NS DAILY #1 spray 07/15/17 Furosemide [Lasix -] 40 mg PO DAILY tablet 07/15/17 Gabapentin [Neurontin -] 300 mg PO TID #90 capsule 07/15/17 Insulin (Levemir) [Levemir Flexpen -] 30 units SQ BID #4 syr 07/15/17 Metformin HCl [Glucophage -] 500 mg PO BID@0700,1630 tablet 07/15/17 Pantoprazole Sodium [Protonix -] 40 mg PO DAILY tablet.ec 07/15/17 Prednisone [Deltasone -] 60 mg PO DAILY #30 tablet 07/15/17 Family Disease History - Family Disease History Family History: Unremarkable Review of Systems - Review of Systems Constitutional: reports: Lethargy. denies: Fever, Loss of Appetite Eyes: denies: Blurred Vision HENT: denies: Difficult Swallowing Neck: denies: Decreased ROM Cardiovascular: reports: Edema, Shortness of Breath. denies: Chest Pain, Palpitations Respiratory: reports: Cough, Exercise Intolerance, Orthopnea, SOB on Exertion, Wheezing. denies: Hemoptysis Gastrointestinal: denies: Abdominal Pain Genitourinary: reports: No Symptoms Breasts: reports: No Symptoms Reported Musculoskeletal: reports: No Symptoms Integumentary: reports: No Symptoms Neurological: reports: No Symptoms Endocrine: reports: No Symptoms Physical Exam Vital Sings: Vital Signs Temperature 97.4 F L 07/20/17 11:17 Pulse Rate 92 H 07/20/17 16:19 Respiratory Rate 22 07/20/17 16:19 Blood Pressure 122/72 07/20/17 16:19 O2 Sat by Pulse Oximetry (%) 99 07/20/17 16:19 Constitutional: Yes: Anxious Eyes: Yes: EOM Intact HENT: Yes: Normocephalic Neck: Yes: Trachea Midline Cardiovascular: Yes: Pulse Irregular, S1, S2 Respiratory: Yes: Wheezes (bilateral scattered) Gastrointestinal: Yes: Normal Bowel Sounds, Soft, Abdomen, Obese Breast(s): Yes: WNL Musculoskeletal: Yes: WNL Edema: LLE: 2+, RLE: 2+ Neurological: Yes: WNL Labs: CBC, BMP 07/20/17 12:45 07/20/17 12:45 rest reviewed Imaging - Results Chest X-ray: Image Reviewed EKG: Image Reviewed Problem List - Problems (1) Sleep apnea Code(s): G47.30 - SLEEP APNEA, UNSPECIFIED (2) Obesity Code(s): E66.9 - OBESITY, UNSPECIFIED (3) COPD (chronic obstructive pulmonary disease) Code(s): J44.9 - CHRONIC OBSTRUCTIVE PULMONARY DISEASE, UNSPECIFIED (4) Acute bronchitis with COPD Code(s): J44.0 - CHRONIC OBSTRUCTIVE PULMON DISEASE W ACUTE LOWER RESP INFCT (5) Acute chronic obstructive pulmonary disease with respiratory distress Code(s): J44.9 - CHRONIC OBSTRUCTIVE PULMONARY DISEASE, UNSPECIFIED; R06.03 - ACUTE RESPIRATORY DISTRESS (6) Acute exacerbation of chronic obstructive pulmonary disease (COPD) Code(s): J44.1 - CHRONIC OBSTRUCTIVE PULMONARY DISEASE W (ACUTE) EXACERBATION (7) Acute on chronic respiratory failure with hypoxemia Code(s): J96.21 - ACUTE AND CHRONIC RESPIRATORY FAILURE WITH HYPOXIA (8) Acute on chronic respiratory failure with hypoxia and hypercapnia Code(s): J96.21 - ACUTE AND CHRONIC RESPIRATORY FAILURE WITH HYPOXIA; J96.22 - ACUTE AND CHRONIC RESPIRATORY FAILURE WITH HYPERCAPNIA Assessment/Plan ACUTE ON CHRONIC RESPIRATORY FAILURE A/E COPD LIKELY ACUTE BRONCHITIS OSAS/OBESITY/HYPOVENTILATION SYNDROME MORBID OBESITY/AF/CHF/ASHD/HTN/DM/HPL WILL NEED SUPPLEMENTAL O2 WITH NIPPV HS AND PRN LAST ADMISSION PATIENT HAD NIPPV MOST OF THE DAY/NIGHT TRIAL OF STEROIDS/BRONCHODILATORS/DIURETICS/ANTIBIOTICS INFLU SWAB/URINE ANTIGENS OF NOTE IS DISCHARGE WEIGHT 5 DAYS AGO WAS 315LBS NOW 325LBS DIABETIC/SODIUM/CALORIC RESTRICTED DIET WILL FOLLOW Benson VASQUEZ MD
[2017-07-21] MEDS ORDERED: SODIUM CHLORIDE NASAL SPRAY 44 ML BOTTLE NS PRN (11:15)
[2017-07-21] MEDS ORDERED: ACETAMINOPHEN 325 MG TABLET (FP) PO PRN (11:15)
--- NOTE | 2017-07-21 11:17 | HP ---
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 No: Cancer Gastrointestinal: Yes: GERD Renal/: Yes: Renal Inusuff Endocrine: Yes: Other (MORBIDLY OBESE) - Past Surgical History Past Surgical History: Yes: Tonsillectomy - Smoking History Smoking history: Former smoker Have you smoked in the past 12 months: No Aproximately how many cigarettes per day: 0 If you are a former smoker, when did you quit?: 6 YRS - Alcohol/Substance Use Hx Alcohol Use: No - Social History History of Recent Travel: No Home Medications - Allergies Allergies/Adverse Reactions: Allergies Allergy/AdvReac Type Severity Reaction Status Date / Time No Known Allergies Allergy Verified 07/20/17 11:21 - Home Medications Home Medications: Ambulatory Orders Apixaban [Eliquis] 5 mg PO BID 08/26/16 Tamsulosin HCl [Flomax] 0.4 mg PO DAILY 08/26/16 Verapamil HCl [Verapamil ER] 240 mg PO BID 08/26/16 Insulin (Novolog) [Novolog -] 0 units SQ AC #1 vial 04/17/17 Sitagliptin Phos/Metformin HCl [Janumet 50-1,000 mg Tablet] 1 each PO DAILY #30 tab 04/17/17 Acetaminophen [Tylenol .Regular Strength -] 650 mg PO Q6H PRN tablet 07/15/17 Albuterol 0.083% Nebulizer Cielo [Ventolin 0.083% Nebulizer Soln -] 1 amp NEB Q4H PRN #120 amp 07/15/17 Atorvastatin Ca [Lipitor] 40 mg PO HS #30 tablet 07/15/17 Budesonide/Formeterol Fumarate [SYMBICORT 160/4.5mcg -] 2 puff IH BID #1 inhaler 07/15/17 Digoxin [Lanoxin -] 0.125 mg PO DAILY tablet 07/15/17 Fluticasone Prop 0.05% Nasal [Flonase -] 2 spray NS DAILY #1 spray 07/15/17 Furosemide [Lasix -] 40 mg PO DAILY tablet 07/15/17 Gabapentin [Neurontin -] 300 mg PO TID #90 capsule 07/15/17 Insulin (Levemir) [Levemir Flexpen -] 30 units SQ BID #4 syr 07/15/17 Metformin HCl [Glucophage -] 500 mg PO BID@0700,1630 tablet 07/15/17 Pantoprazole Sodium [Protonix -] 40 mg PO DAILY tablet.ec 07/15/17 Prednisone [Deltasone -] 60 mg PO DAILY #30 tablet 07/15/17 Review of Systems - Review of Systems Constitutional: reports: Weakness Eyes: reports: No Symptoms HENT: reports: No Symptoms Neck: reports: No Symptoms Cardiovascular: reports: Shortness of Breath Respiratory: reports: Cough, SOB Gastrointestinal: reports: No Symptoms Genitourinary: reports: No Symptoms Musculoskeletal: reports: Muscle Weakness Integumentary: reports: No Symptoms Neurological: reports: No Symptoms Endocrine: reports: No Symptoms Hematology/Lymphatic: reports: No Symptoms Psychiatric: reports: No Symptoms Physical Examination Vital Signs: Vital Signs Temperature 97.4 F L 07/20/17 11:17 Pulse Rate 94 H 07/21/17 09:30 Respiratory Rate 16 07/21/17 09:30 Blood Pressure 139/95 07/21/17 09:30 O2 Sat by Pulse Oximetry (%) 98 07/21/17 06:53 Constitutional: Yes: Moderate Distress Eyes: Yes: WNL HENT: Yes: WNL Neck: Yes: WNL Cardiovascular: Yes: Pulse Irregular Respiratory: Yes: Cough, On BiPap, Poor Air Entry, SOB, Tachypnea Gastrointestinal: Yes: WNL Renal/: Yes: WNL Musculoskeletal: Yes: Muscle Weakness Extremities: Yes: WNL Edema: Yes Edema: LLE: 1+, RLE: 1+ Peripheral Pulses WNL: Yes Integumentary: Yes: WNL Wound/Incision: Yes: Clean/Dry Neurological: Yes: WNL ...Motor Strength: WNL Psychiatric: Yes: WNL Labs: CBC, BMP 07/20/17 12:45 07/20/17 12:45 Problem List - Problems (1) COPD (chronic obstructive pulmonary disease) Code(s): J44.9 - CHRONIC OBSTRUCTIVE PULMONARY DISEASE, UNSPECIFIED Qualifiers: COPD type: COPD with acute exacerbation Qualified Code(s): J44.1 - Chronic obstructive pulmonary disease with (acute) exacerbation (2) Obesity Code(s): E66.9 - OBESITY, UNSPECIFIED Qualifiers: Obesity classification: adult class 3 (BMI >= 40) (3) Sleep apnea Code(s): G47.30 - SLEEP APNEA, UNSPECIFIED (4) Acute CHF Code(s): I50.9 - HEART FAILURE, UNSPECIFIED Qualifiers: Congestive heart failure type: systolic Qualified Code(s): I50.21 - Acute systolic (congestive) heart failure (5) Acute chronic obstructive pulmonary disease with respiratory distress Code(s): J44.9 - CHRONIC OBSTRUCTIVE PULMONARY DISEASE, UNSPECIFIED; R06.03 - ACUTE RESPIRATORY DISTRESS (6) Acute exacerbation of chronic obstructive pulmonary disease (COPD) Code(s): J44.1 - CHRONIC OBSTRUCTIVE PULMONARY DISEASE W (ACUTE) EXACERBATION (7) Acute on chronic respiratory failure with hypoxemia Code(s): J96.21 - ACUTE AND CHRONIC RESPIRATORY FAILURE WITH HYPOXIA (8) Acute on chronic respiratory failure with hypoxia and hypercapnia Code(s): J96.21 - ACUTE AND CHRONIC RESPIRATORY FAILURE WITH HYPOXIA; J96.22 - ACUTE AND CHRONIC RESPIRATORY FAILURE WITH HYPERCAPNIA (9) Diabetes mellitus Code(s): E11.9 - TYPE 2 DIABETES MELLITUS WITHOUT COMPLICATIONS Qualifiers: Diabetes mellitus type: type 2 Diabetes mellitus complication status: with other specified complication Assessment/Plan BIPAP NEEDED LASIX IV AC CARDIO/PULM EVAL 02 SUPPORT WILL NEED PLACEMENT FOR RECUURENT ADMISSIONS WITH CHF/COPD
--- NOTE | 2017-07-21 12:33 | CON.CARD ---
Cardiology Consult (text) - Consultation Consultation Note: CC: SOB hpi: 72 yo male with h/o AFib s/p prior DCCV 12/2015 to SR on AC, HTN, HL, dchf , morbid obesity, LUCY on bipap, severe COPD, here with sob. Frequent admits for copd/chf. Was just discharged recently for copd and says when got home felt same copd sxs again with wheezing/sob. Also noticed le edema No cp, palps, dizzy, loc, pnd, orthopnea, bleeding, transient neurologic sx's. Sees dr richardson for cardio. PMH:per hpi past surg hx: Tonsillectomy Social hx: Former smoker fam hx: father with CVA ros: per hpi; no nvd, damico, muscle pain, rash, visual disturbances. meds: Home Medications Medication Instructions Recorded Apixaban [Eliquis] 5 mg PO BID 08/26/16 Tamsulosin HCl [Flomax] 0.4 mg PO DAILY 08/26/16 Verapamil HCl [Verapamil ER] 240 mg PO BID 08/26/16 Insulin (Novolog) [Novolog -] 0 units SQ AC #1 vial 04/17/17 Sitagliptin Phos/Metformin HCl 1 each PO DAILY #30 tab 04/17/17 [Janumet 50-1,000 mg Tablet] Acetaminophen [Tylenol .Regular 650 mg PO Q6H PRN tablet 07/15/17 Strength -] Albuterol 0.083% Nebulizer Cielo 1 amp NEB Q4H PRN #120 amp 07/15/17 [Ventolin 0.083% Nebulizer Soln -] Atorvastatin Ca [Lipitor] 40 mg PO HS #30 tablet 07/15/17 Budesonide/Formeterol Fumarate 2 puff IH BID #1 inhaler 07/15/17 [SYMBICORT 160/4.5mcg -] Digoxin [Lanoxin -] 0.125 mg PO DAILY tablet 07/15/17 Fluticasone Prop 0.05% Nasal 2 spray NS DAILY #1 spray 07/15/17 [Flonase -] Furosemide [Lasix -] 40 mg PO DAILY tablet 07/15/17 Gabapentin [Neurontin -] 300 mg PO TID #90 capsule 07/15/17 Insulin (Levemir) [Levemir Flexpen 30 units SQ BID #4 syr 07/15/17 -] Metformin HCl [Glucophage -] 500 mg PO BID@0700,1630 tablet 07/15/17 Pantoprazole Sodium [Protonix -] 40 mg PO DAILY tablet.ec 07/15/17 Prednisone [Deltasone -] 60 mg PO DAILY #30 tablet 07/15/17 pe: Vital Signs Period Temp Pulse Resp BP Sys/Park Pulse Ox Last 24 Hr 86-94 16-22 106-139/68-95 95-99 NAD, calm JVD difficult to assess due to size, neck supple dec air movment bl, + diffuse wheezes, nl effort Irregularly, irregular nl s1, s2 no m/r/g + bs soft obese nt nd ext with 1+ edema. no cyanosis or clubbing + dp/pt no carotid bruits no jaundice, diaphoresis. aaox3 Laboratory Last Values WBC 12.5 K/mm3 (4.0-10.0) H 07/20/17 12:45 RBC 4.59 M/mm3 (4.00-5.60) 07/20/17 12:45 Hgb 11.8 GM/dL (11.7-16.9) 07/20/17 12:45 Hct 38.9 % (35.4-49) 07/20/17 12:45 MCV 84.8 fl (80-96) 07/20/17 12:45 MCH 25.7 pg (25.7-33.7) 07/20/17 12:45 MCHC 30.3 g/dl (32.0-35.9) L 07/20/17 12:45 RDW 21.1 % (11.9-15.9) H 07/20/17 12:45 Plt Count 145 K/MM3 (134-434) D 07/20/17 12:45 MPV 8.5 fl (7.5-11.1) 07/20/17 12:45 Neutrophils % 90.4 % (42.8-82.8) H D 07/20/17 12:45 Lymphocytes % 3.7 % (8-40) L D 07/20/17 12:45 Monocytes % 5.3 % (3.8-10.2) 07/20/17 12:45 Eosinophils % 0.2 % (0-4.5) D 07/20/17 12:45 Basophils % 0.4 % (0-2.0) 07/20/17 12:45 Anisocytosis 2+ 07/20/17 12:45 Microcytosis 1+ 07/20/17 12:45 PT with INR 12.40 SEC (9.98-11.88) H 07/20/17 12:45 INR 1.10 (0.82-1.09) 07/20/17 12:45 PTT (Actin FS) 27.5 SECONDS (26.9-34.4) 07/20/17 12:45 VBG pH 7.42 (7.32-7.42) 07/20/17 12:45 POC VBG pCO2 43.9 mmHg (38-52) 07/20/17 12:45 POC VBG pO2 59.2 mmHg (28-48) H D 07/20/17 12:45 Mixed VBG HCO3 27.6 meq/L (19-25) H 07/20/17 12:45 Sodium 140 mmol/L (136-145) 07/20/17 12:45 Potassium 4.6 mmol/L (3.5-5.1) 07/20/17 12:45 Chloride 107 mmol/L (98-107) 07/20/17 12:45 Carbon Dioxide 26 mmol/L (21-32) D 07/20/17 12:45 Anion Gap 7 (8-16) L 07/20/17 12:45 BUN 12 mg/dL (7-18) D 07/20/17 12:45 Creatinine 0.7 mg/dL (0.7-1.3) 07/20/17 12:45 Creat Clearance w eGFR > 60 (>60) 07/20/17 12:45 POC Glucometer 319.57343 UNITS (80-120) 07/21/17 11:08 Random Glucose 193 mg/dL (74-106) H 07/20/17 12:45 Calcium 8.6 mg/dL (8.5-10.1) 07/20/17 12:45 Total Bilirubin 0.9 mg/dL (0.2-1.0) D 07/20/17 12:45 AST 43 U/L (15-37) H D 07/20/17 12:45 ALT 91 U/L (12-78) H D 01/10/18 12:45 Alkaline Phosphatase 87 U/L (45-117) 07/20/17 12:45 Creatine Kinase 119 IU/L (39-308) 07/20/17 12:45 Troponin I 0.02 ng/ml (0.00-0.05) 07/20/17 12:45 B-Natriuretic Peptide 123.26 pg/ml (5-125) 07/20/17 12:45 Total Protein 5.7 g/dl (6.4-8.2) L 07/20/17 12:45 Albumin 2.9 g/dl (3.4-5.0) L 07/20/17 12:45 EKG: afib, 94 bpm. No ischemic changes. cxr: ?pna echo 07/2016: Nl lv/rv. 1+ AR mibi 12/2012: small posterior ischemia vs artifact, nl lvef, no tid a/p: 72 yo male with h/o AFib s/p prior DCCV 12/2015 to SR on AC, HTN, HL, dchf , PVCs with palpitations, morbid obesity, LUCY on bipap, severe COPD, here with sob. sob, copd: - has tendency towards volume retention felicia when receives steroids for copd exacerbation - vol status appears secondary, recent uri sx's and diffuse wheezes. copd likely cause of current sob. However, in light of worsened LE edema would cont with iv lasix 40 bid for now. can change back to po lasix when on po steroids - copd/lucy tx per pulm acute on chronic diastolic chf: - cont lasix 40 mg IV bid, can change back to po lasix when on po steroids - daily weight, bmp , I/O's paroxysmal AF/flutter -cont eliquis for AC -new dx 2015--req'd amio for HR control then (now off due to severe lung dz), s/ p successful DCCV 12/24, then reverted to afib -rate typically becomes elevated in settings of respiratory distress. con't verapamil, dig. Ongoing diureseis and mgm't of copd per pulm/pmd -avoiding BB given severe bronchospasm/copd; would like to avoid long-term amio for same reason hld: -continue home statin htn: -stable on current meds possible cad: -pt had borderline positive mibi in 2012 vs soft tissue attenuation artifact -never had angina sx's -no signs acs here -continue medical management with statin, AC without ASA
[2017-07-21] MEDS ORDERED: INSULIN DETEMIR 100 UNITS/ML MDV SQ ONE (13:15)
[2017-07-21] MEDS: INSULIN SLIDING SCALE (NOVOLOG) 1 VIAL SQ SCH ×3 (13:17→22:46)
[2017-07-21] MEDS: GABAPENTIN 300 MG CAPSULE (FP) PO SCH ×2 (13:18→22:46)
[2017-07-21] MEDS: BUDESONIDE/FORMETEROL FUMARATE 160/4.5 mcg INHALER IH SCH ×2 (13:18→22:57)
[2017-07-21] MEDS: PANTOPRAZOLE 40 MG TABLET (FP) PO SCH (13:19)
[2017-07-21] MEDS: VERAPAMIL HCL 240 MG E.R. TABLET (FP) PO SCH (13:19)
[2017-07-21] MEDS: FLUTICASONE PROP 0.05% 16 GM NASAL SPRAY NS SCH (13:19)
[2017-07-21] MEDS: LORATADINE 10 MG TABLET PO SCH (13:19)
[2017-07-21] MEDS: INSULIN DETEMIR 100 UNITS/ML MDV SQ SCH ×2 (13:20→22:46)
[2017-07-21] MEDS: FUROSEMIDE 40 MG/4 ML INJECTABLE VIAL IVPUSH SCH (15:20)
--- NOTE | 2017-07-21 15:28 | PN ---
Progress Note (short form) - Note Progress Note: Awake and alert on NIPPV in the ER. Still SOB, but somewhat improved on NIPPV. Wheezing persists. Intake & Output 07/18/17 07/19/17 07/20/17 07/21/17 23:59 23:59 23:59 23:59 Weight 325 lb Last Vital Signs Temp Pulse Resp BP Pulse Ox 97.4 F L 77 18 136/67 100 07/20/17 11:17 07/21/17 13:00 07/21/17 13:00 07/21/17 13:00 07/21/17 09:10 Active Medications Acetaminophen (Tylenol -) 650 mg PO Q6H PRN PRN Reason: BACK PAIN Apixaban (Eliquis -) 5 mg PO BID [facility] Atorvastatin Calcium (Lipitor -) 40 mg PO HS [facility] Budesonide/Formoterol Fumarate (Symbicort 160/4.5mcg -) 2 puff IH BID [facility] Last Admin: 07/21/17 13:18 Dose: 2 puff Fluticasone Propionate (Flonase -) 2 spray NS DAILY [facility] Last Admin: 07/21/17 13:19 Dose: 2 sprays Furosemide (Lasix Injection -) 40 mg IVPUSH BID@0600,1400 [facility] Last Admin: 07/21/17 15:20 Dose: Not Given Gabapentin (Neurontin -) 300 mg PO TID [facility] Last Admin: 07/21/17 13:18 Dose: 300 mg Insulin Aspart (Novolog Vial Sliding Scale -) 1 vial SQ ACHS [facility] PRN Reason: Protocol Last Admin: 07/21/17 13:17 Dose: 6 units Insulin Detemir (Levemir Vial) 30 units SQ BID@0700,2200 [facility] Last Admin: 07/21/17 13:20 Dose: 30 units Loratadine (Claritin -) 10 mg PO DAILY [facility] Last Admin: 07/21/17 13:19 Dose: 10 mg Pantoprazole Sodium (Protonix -) 40 mg PO DAILY [facility] Last Admin: 07/21/17 13:19 Dose: 40 mg Sitagliptin Phosphate (Januvia -) 50 mg PO DAILY@0700 [facility] Sodium Chloride ([place] Nasal Bath -) 2 spray NS BID PRN PRN Reason: NASAL CONGESTION Tamsulosin HCl (Flomax -) 0.4 mg PO DAILY@0830 [facility] Verapamil HCl ([place] Sr -) 240 mg PO DAILY [facility] Last Admin: 07/21/17 13:19 Dose: 240 mg Constitutional: Yes: Awake and alert on NIPPV Eyes: Yes: EOM Intact HENT: Yes: Normocephalic Neck: Yes: Trachea Midline Cardiovascular: Yes: Pulse Irregular, S1, S2 Respiratory: Yes: Bilateral expiratory wheezes, scattered rhonchi Gastrointestinal: Yes: Normal Bowel Sounds, Soft, Abdomen, Obese Breast(s): Yes: WNL Musculoskeletal: Yes: WNL Edema: LLE: 2+, RLE: 2+ Neurological: Yes: WNL Labs: Laboratory Results - last 24 hr 07/20/17 07/21/17 12:45 11:08 Anisocytosis 2+ Microcytosis 1+ POC Glucometer [id number] Problem List - Problems (1) Sleep apnea Code(s): G47.30 - SLEEP APNEA, UNSPECIFIED (2) Obesity Code(s): E66.9 - OBESITY, UNSPECIFIED (3) COPD (chronic obstructive pulmonary disease) Code(s): J44.9 - CHRONIC OBSTRUCTIVE PULMONARY DISEASE, UNSPECIFIED (4) Acute bronchitis with COPD Code(s): J44.0 - CHRONIC OBSTRUCTIVE PULMON DISEASE W ACUTE LOWER RESP INFCT (5) Acute chronic obstructive pulmonary disease with respiratory distress Code(s): J44.9 - CHRONIC OBSTRUCTIVE PULMONARY DISEASE, UNSPECIFIED; R06.03 - ACUTE RESPIRATORY DISTRESS (6) Acute exacerbation of chronic obstructive pulmonary disease (COPD) Code(s): J44.1 - CHRONIC OBSTRUCTIVE PULMONARY DISEASE W (ACUTE) EXACERBATION (7) Acute on chronic respiratory failure with hypoxemia Code(s): J96.21 - ACUTE AND CHRONIC RESPIRATORY FAILURE WITH HYPOXIA (8) Acute on chronic respiratory failure with hypoxia and hypercapnia Code(s): J96.21 - ACUTE AND CHRONIC RESPIRATORY FAILURE WITH HYPOXIA; J96.22 - ACUTE AND CHRONIC RESPIRATORY FAILURE WITH HYPERCAPNIA Assessment/Plan ACUTE ON CHRONIC RESPIRATORY FAILURE A/E COPD LIKELY ACUTE BRONCHITIS OSAS/OBESITY/HYPOVENTILATION SYNDROME MORBID OBESITY/AF/CHF/ASHD/HTN/DM/HPL NIPPV LAST ADMISSION PATIENT HAD NIPPV MOST OF THE DAY/NIGHT TRIAL OF STEROIDS/BRONCHODILATORS/DIURETICS/ANTIBIOTICS INFLU SWAB/URINE ANTIGENS OF NOTE IS DISCHARGE WEIGHT 5 DAYS AGO WAS 315LBS NOW 325LBS DIABETIC/SODIUM/CALORIC RESTRICTED DIET WILL FOLLOW Benson VASQUEZ MD
[2017-07-21] MEDS ORDERED: ALBUTEROL SO4 0.083% IH SOL 2.5 MG/3 ML VIAL.NEB. NEB PRN (15:29)
[2017-07-21] MEDS ORDERED: ALBUTEROL SO4 2.5/IPRATROPIUM 0.5 INH SOL 3 ML VIAL.NEB. NEB ONE (19:18)
[2017-07-21] MEDS: ALBUTEROL SO4 2.5/IPRATROPIUM 0.5 INH SOL 3 ML VIAL.NEB. NEB SCH ×2 (19:39→20:22)
[2017-07-21] MEDS: ATORVASTATIN CA 40 MG TABLET (FP) PO SCH (22:46)
[2017-07-21] MEDS: methylPREDNISolone NA SUCC 125 MG/2 ML VIAL IVPUSH SCH (22:47)
[2017-07-21] MEDS: APIXABAN 5 MG TABLET PO SCH (23:30)
[2017-07-22] MEDS: GABAPENTIN 300 MG CAPSULE (FP) PO SCH ×3 (06:57→21:20)
[2017-07-22] MEDS: sitaGLIPtin PHOSPHATE 50 MG TABLET PO SCH (06:57)
[2017-07-22] MEDS: methylPREDNISolone NA SUCC 125 MG/2 ML VIAL IVPUSH SCH ×3 (06:57→21:23)
[2017-07-22] MEDS: INSULIN DETEMIR 100 UNITS/ML MDV SQ SCH ×2 (06:58→21:20)
[2017-07-22] MEDS: INSULIN SLIDING SCALE (NOVOLOG) 1 VIAL SQ SCH ×4 (06:59→21:22)
[2017-07-22] MEDS: ALBUTEROL SO4 2.5/IPRATROPIUM 0.5 INH SOL 3 ML VIAL.NEB. NEB SCH ×4 (07:51→22:45)
[2017-07-22 08:39] LABS: ANION GAP 11 (8-16); BLOOD UREA NITROGEN 18 mg/dL (7-18); CHLORIDE 103 mmol/L (98-107); CO2 28 mmol/L (21-32); CREATININE 0.7 mg/dL (0.7-1.3); GLUCOSE,RANDOM 261 mg/dL (74-106); MAGNESIUM 1.9 mg/dL (1.8-2.4); POTASSIUM 4.5 mmol/L (3.5-5.1); SODIUM 142 mmol/L (136-145)
[2017-07-22] MEDS: TAMSULOSIN HCL 0.4 MG CAP.ER.24H (FP) PO SCH (09:41)
[2017-07-22] MEDS: PANTOPRAZOLE 40 MG TABLET (FP) PO SCH (09:41)
[2017-07-22] MEDS: LORATADINE 10 MG TABLET PO SCH (09:41)
[2017-07-22] MEDS: BUDESONIDE/FORMETEROL FUMARATE 160/4.5 mcg INHALER IH SCH ×2 (10:54→21:26)
[2017-07-22] MEDS: FLUTICASONE PROP 0.05% 16 GM NASAL SPRAY NS SCH (10:54)
[2017-07-22] MEDS: VERAPAMIL HCL 240 MG E.R. TABLET (FP) PO SCH ×2 (11:06→21:18)
[2017-07-22] MEDS: FUROSEMIDE 40 MG/4 ML INJECTABLE VIAL IVPUSH SCH ×3 (11:28→16:44)
[2017-07-22] MEDS: APIXABAN 5 MG TABLET PO SCH ×2 (11:29→21:19)
[2017-07-22] MEDS ORDERED: INSULIN (NOVOLOG) ASPART 100 UNITS/ML 10ML VIAL ONE ×2 (11:46→20:32)
--- NOTE | 2017-07-22 12:38 | PN ---
Progress Note, Physician Chief Complaint: AWAKE ON BIPAP WITH MOD/SEVERE RESP DISTRESS - Current Medication List Current Medications: Active Medications Acetaminophen (Tylenol -) 650 mg PO Q6H PRN PRN Reason: BACK PAIN Albuterol Sulfate (Ventolin 0.083% Nebulizer Soln -) 1 amp NEB Q4H PRN PRN Reason: SHORT OF BREATH/WHEEZING Albuterol/Ipratropium (Duoneb -) 1 amp NEB RQID [facility] Last Admin: 07/22/17 11:02 Dose: 1 amp Apixaban (Eliquis -) 5 mg PO BID [facility] Last Admin: 07/22/17 11:29 Dose: 5 mg Atorvastatin Calcium (Lipitor -) 40 mg PO HS [facility] Last Admin: 07/21/17 22:46 Dose: 40 mg Budesonide/Formoterol Fumarate (Symbicort 160/4.5mcg -) 2 puff IH BID [facility] Last Admin: 07/22/17 10:54 Dose: 2 puff Fluticasone Propionate (Flonase -) 2 spray NS DAILY [facility] Last Admin: 07/22/17 10:54 Dose: 2 sprays Furosemide (Lasix Injection -) 40 mg IVPUSH BID@0600,1400 [facility] Last Admin: 07/22/17 11:28 Dose: 40 mg Gabapentin (Neurontin -) 300 mg PO TID [facility] Last Admin: 07/22/17 06:57 Dose: 300 mg Insulin Aspart (Novolog Vial Sliding Scale -) 1 vial SQ ACHS [facility] PRN Reason: Protocol Last Admin: 07/22/17 11:53 Dose: 4 units Insulin Detemir (Levemir Vial) 30 units SQ BID@0700,2200 [facility] Last Admin: 07/22/17 06:58 Dose: 30 units Loratadine (Claritin -) 10 mg PO DAILY [facility] Last Admin: 07/22/17 09:41 Dose: 10 mg Methylprednisolone Sodium Succinate (Solu-Medrol -) 80 mg IVPUSH TID [facility] Last Admin: 07/22/17 06:57 Dose: 80 mg Pantoprazole Sodium (Protonix -) 40 mg PO DAILY [facility] Last Admin: 07/22/17 09:41 Dose: 40 mg Sitagliptin Phosphate (Januvia -) 50 mg PO DAILY@0700 [facility] Last Admin: 07/22/17 06:57 Dose: 50 mg Sodium Chloride ([place] Nasal [place] -) 2 spray NS BID PRN PRN Reason: NASAL CONGESTION Tamsulosin HCl (Flomax -) 0.4 mg PO DAILY@0830 [facility] Last Admin: 07/22/17 09:41 Dose: 0.4 mg Verapamil HCl (Calan Sr -) 240 mg PO DAILY [facility] Last Admin: 07/22/17 11:06 Dose: 240 mg - Objective Vital Signs: Vital Signs Temperature 97.9 F 07/22/17 10:03 Pulse Rate 110 H 07/22/17 10:03 Respiratory Rate 24 07/22/17 10:03 Blood Pressure 125/81 07/22/17 10:03 O2 Sat by Pulse Oximetry (%) 96 07/22/17 07:51 Constitutional: Yes: Moderate Distress Eyes: Yes: WNL HENT: Yes: WNL Neck: Yes: WNL Cardiovascular: Yes: Pulse Irregular Respiratory: Yes: On BiPap, Poor Air Entry Gastrointestinal: Yes: WNL Genitourinary: Yes: WNL Musculoskeletal: Yes: Muscle Weakness Extremities: Yes: WNL Edema: Yes Peripheral Pulses WNL: Yes Integumentary: Yes: WNL Wound/Incision: Yes: Clean/Dry Neurological: Yes: WNL ...Motor Strength: WNL Psychiatric: Yes: WNL Labs: CBC, BMP 07/20/17 12:45 07/22/17 06:55 INR, PTT INR 1.10 (0.82-1.09) 07/20/17 12:45 Problem List - Problems (1) COPD (chronic obstructive pulmonary disease) Code(s): J44.9 - CHRONIC OBSTRUCTIVE PULMONARY DISEASE, UNSPECIFIED Qualifiers: COPD type: COPD with acute exacerbation Qualified Code(s): J44.1 - Chronic obstructive pulmonary disease with (acute) exacerbation (2) Obesity Code(s): E66.9 - OBESITY, UNSPECIFIED Qualifiers: Obesity classification: adult class 3 (BMI >= 40) (3) Sleep apnea Code(s): G47.30 - SLEEP APNEA, UNSPECIFIED (4) Acute CHF Code(s): I50.9 - HEART FAILURE, UNSPECIFIED Qualifiers: Congestive heart failure type: systolic Qualified Code(s): I50.21 - Acute systolic (congestive) heart failure (5) Acute chronic obstructive pulmonary disease with respiratory distress Code(s): J44.9 - CHRONIC OBSTRUCTIVE PULMONARY DISEASE, UNSPECIFIED; R06.03 - ACUTE RESPIRATORY DISTRESS (6) Acute exacerbation of chronic obstructive pulmonary disease (COPD) Code(s): J44.1 - CHRONIC OBSTRUCTIVE PULMONARY DISEASE W (ACUTE) EXACERBATION (7) Acute on chronic respiratory failure with hypoxemia Code(s): J96.21 - ACUTE AND CHRONIC RESPIRATORY FAILURE WITH HYPOXIA (8) Acute on chronic respiratory failure with hypoxia and hypercapnia Code(s): J96.21 - ACUTE AND CHRONIC RESPIRATORY FAILURE WITH HYPOXIA; J96.22 - ACUTE AND CHRONIC RESPIRATORY FAILURE WITH HYPERCAPNIA (9) Diabetes mellitus Code(s): E11.9 - TYPE 2 DIABETES MELLITUS WITHOUT COMPLICATIONS Qualifiers: Diabetes mellitus type: type 2 Diabetes mellitus complication status: with other specified complication Assessment/Plan RESP SUPPORT BIPAP/02/NEBS PULM EVAL APPRECIATED STEROIDS IV WILL NEED SNF FOR PULM REHAB
--- NOTE | 2017-07-22 15:19 | PN ---
Progress Note (short form) - Note Progress Note: PULMONARY AWAKE/ALERT USING BILEVEL COMPLAINING OF ALARMING FROM THE UNIT ANICTERIC DIMINISHED B/L BREATH SOUNDS S1S2 OBESE LESS EDEMA LABS/MEDS/NOTES/IMAGES REVIEWED (1) Sleep apnea Code(s): G47.30 - SLEEP APNEA, UNSPECIFIED (2) Obesity Code(s): E66.9 - OBESITY, UNSPECIFIED (3) COPD (chronic obstructive pulmonary disease) Code(s): J44.9 - CHRONIC OBSTRUCTIVE PULMONARY DISEASE, UNSPECIFIED (4) Acute bronchitis with COPD Code(s): J44.0 - CHRONIC OBSTRUCTIVE PULMON DISEASE W ACUTE LOWER RESP INFCT (5) Acute chronic obstructive pulmonary disease with respiratory distress Code(s): J44.9 - CHRONIC OBSTRUCTIVE PULMONARY DISEASE, UNSPECIFIED; R06.03 - ACUTE RESPIRATORY DISTRESS (6) Acute exacerbation of chronic obstructive pulmonary disease (COPD) Code(s): J44.1 - CHRONIC OBSTRUCTIVE PULMONARY DISEASE W (ACUTE) EXACERBATION (7) Acute on chronic respiratory failure with hypoxemia Code(s): J96.21 - ACUTE AND CHRONIC RESPIRATORY FAILURE WITH HYPOXIA (8) Acute on chronic respiratory failure with hypoxia and hypercapnia Code(s): J96.21 - ACUTE AND CHRONIC RESPIRATORY FAILURE WITH HYPOXIA; J96.22 - ACUTE AND CHRONIC RESPIRATORY FAILURE WITH HYPERCAPNIA Assessment/Plan ACUTE ON CHRONIC RESPIRATORY FAILURE A/E COPD LIKELY ACUTE BRONCHITIS OSAS/OBESITY/HYPOVENTILATION SYNDROME MORBID OBESITY/AF/CHF/ASHD/HTN/DM/HPL Benson VASQUEZ MD Problem List - Problems (1) Sleep apnea Code(s): G47.30 - SLEEP APNEA, UNSPECIFIED (2) Obesity Code(s): E66.9 - OBESITY, UNSPECIFIED Qualifiers: Obesity classification: adult class 3 (BMI >= 40) (3) COPD (chronic obstructive pulmonary disease) Code(s): J44.9 - CHRONIC OBSTRUCTIVE PULMONARY DISEASE, UNSPECIFIED Qualifiers: COPD type: COPD with acute exacerbation Qualified Code(s): J44.1 - Chronic obstructive pulmonary disease with (acute) exacerbation (4) Acute bronchitis with COPD Code(s): J44.0 - CHRONIC OBSTRUCTIVE PULMON DISEASE W ACUTE LOWER RESP INFCT (5) Acute chronic obstructive pulmonary disease with respiratory distress Code(s): J44.9 - CHRONIC OBSTRUCTIVE PULMONARY DISEASE, UNSPECIFIED; R06.03 - ACUTE RESPIRATORY DISTRESS (6) Acute exacerbation of chronic obstructive pulmonary disease (COPD) Code(s): J44.1 - CHRONIC OBSTRUCTIVE PULMONARY DISEASE W (ACUTE) EXACERBATION (7) Acute on chronic respiratory failure with hypoxemia Code(s): J96.21 - ACUTE AND CHRONIC RESPIRATORY FAILURE WITH HYPOXIA (8) Acute on chronic respiratory failure with hypoxia and hypercapnia Code(s): J96.21 - ACUTE AND CHRONIC RESPIRATORY FAILURE WITH HYPOXIA; J96.22 - ACUTE AND CHRONIC RESPIRATORY FAILURE WITH HYPERCAPNIA
[2017-07-22] MEDS ORDERED: PT OWN MED DRAWER 7, Y5N ONE (20:34)
[2017-07-22] MEDS: ATORVASTATIN CA 40 MG TABLET (FP) PO SCH (21:20)
[2017-07-23] MEDS: methylPREDNISolone NA SUCC 125 MG/2 ML VIAL IVPUSH SCH ×3 (06:23→21:39)
[2017-07-23] MEDS: GABAPENTIN 300 MG CAPSULE (FP) PO SCH ×3 (06:23→21:37)
[2017-07-23] MEDS: sitaGLIPtin PHOSPHATE 50 MG TABLET PO SCH (06:24)
[2017-07-23] MEDS: INSULIN DETEMIR 100 UNITS/ML MDV SQ SCH ×2 (06:24→21:36)
[2017-07-23] MEDS: INSULIN SLIDING SCALE (NOVOLOG) 1 VIAL SQ SCH ×4 (06:25→21:37)
[2017-07-23] MEDS: ALBUTEROL SO4 2.5/IPRATROPIUM 0.5 INH SOL 3 ML VIAL.NEB. NEB SCH ×4 (08:23→20:45)
[2017-07-23] MEDS: FUROSEMIDE 40 MG/4 ML INJECTABLE VIAL IVPUSH SCH ×3 (08:33→15:35)
[2017-07-23] MEDS ORDERED: PT OWN MED DRAWER 7, Y5N ONE ×2 (09:24→20:05)
[2017-07-23] MEDS: LORATADINE 10 MG TABLET PO SCH (09:32)
[2017-07-23] MEDS: VERAPAMIL HCL 240 MG E.R. TABLET (FP) PO SCH ×2 (09:32→21:36)
[2017-07-23] MEDS: PANTOPRAZOLE 40 MG TABLET (FP) PO SCH (09:32)
[2017-07-23] MEDS: TAMSULOSIN HCL 0.4 MG CAP.ER.24H (FP) PO SCH (09:32)
[2017-07-23] MEDS: APIXABAN 5 MG TABLET PO SCH ×2 (09:33→21:36)
[2017-07-23] MEDS: BUDESONIDE/FORMETEROL FUMARATE 160/4.5 mcg INHALER IH SCH ×2 (09:33→21:40)
[2017-07-23] MEDS: FLUTICASONE PROP 0.05% 16 GM NASAL SPRAY NS SCH (09:33)
[2017-07-23] MEDS ORDERED: INSULIN (NOVOLOG) ASPART 100 UNITS/ML 10ML VIAL ONE (11:59)
--- NOTE | 2017-07-23 12:39 | PN ---
Progress Note, Physician Chief Complaint: AWAKE ALERT NURSE STATED PATIENT EATING EXCESSIVELY AND DRINKING OVER THE RESTRICTED CHF AMOUNT I D/W PATIENT - Current Medication List Current Medications: Active Medications Acetaminophen (Tylenol -) 650 mg PO Q6H PRN PRN Reason: BACK PAIN Albuterol Sulfate (Ventolin 0.083% Nebulizer Soln -) 1 amp NEB Q4H PRN PRN Reason: SHORT OF BREATH/WHEEZING Albuterol/Ipratropium (Duoneb -) 1 amp NEB RQID [facility] Last Admin: 07/23/17 11:43 Dose: 1 amp Apixaban (Eliquis -) 5 mg PO BID [facility] Last Admin: 07/23/17 09:33 Dose: 5 mg Atorvastatin Calcium (Lipitor -) 40 mg PO HS [facility] Last Admin: 07/22/17 21:20 Dose: 40 mg Budesonide/Formoterol Fumarate (Symbicort 160/4.5mcg -) 2 puff IH BID [facility] Last Admin: 07/23/17 09:33 Dose: 2 puff Fluticasone Propionate (Flonase -) 2 spray NS DAILY [facility] Last Admin: 07/23/17 09:33 Dose: 2 sprays Furosemide (Lasix Injection -) 40 mg IVPUSH BID@1000,1600 [facility] Last Admin: 07/23/17 09:32 Dose: 40 mg Gabapentin (Neurontin -) 300 mg PO TID [facility] Last Admin: 07/23/17 06:23 Dose: 300 mg Insulin Aspart (Novolog Vial Sliding Scale -) 1 vial SQ ACHS [facility] PRN Reason: Protocol Last Admin: 07/23/17 12:03 Dose: 8 units Insulin Detemir (Levemir Vial) 30 units SQ BID@0700,2200 [facility] Last Admin: 07/23/17 06:24 Dose: 30 units Loratadine (Claritin -) 10 mg PO DAILY [facility] Last Admin: 07/23/17 09:32 Dose: 10 mg Methylprednisolone Sodium Succinate (Solu-Medrol -) 60 mg IVPUSH TID [facility] Last Admin: 07/23/17 06:23 Dose: 60 mg Pantoprazole Sodium (Protonix -) 40 mg PO DAILY [facility] Last Admin: 07/23/17 09:32 Dose: 40 mg Sitagliptin Phosphate (Januvia -) 50 mg PO DAILY@0700 [facility] Last Admin: 07/23/17 06:24 Dose: 50 mg Sodium Chloride ([place] Nasal [place] -) 2 spray NS BID PRN PRN Reason: NASAL CONGESTION Tamsulosin HCl (Flomax -) 0.4 mg PO DAILY@0830 [facility] Last Admin: 07/23/17 09:32 Dose: 0.4 mg Verapamil HCl (Calan Sr -) 240 mg PO BID [facility] Last Admin: 07/23/17 09:32 Dose: 240 mg - Objective Vital Signs: Vital Signs Temperature 97.9 F 07/23/17 09:37 Pulse Rate 96 H 07/23/17 09:37 Respiratory Rate 18 07/23/17 09:37 Blood Pressure 110/57 07/23/17 09:37 O2 Sat by Pulse Oximetry (%) 97 07/23/17 11:42 Constitutional: Yes: Mild Distress Eyes: Yes: WNL HENT: Yes: WNL Neck: Yes: WNL Cardiovascular: Yes: Pulse Irregular Respiratory: Yes: On BiPap Gastrointestinal: Yes: WNL Genitourinary: Yes: WNL Musculoskeletal: Yes: WNL Extremities: Yes: WNL Edema: Yes Peripheral Pulses WNL: Yes Integumentary: Yes: WNL Wound/Incision: Yes: Clean/Dry Neurological: Yes: WNL ...Motor Strength: WNL Psychiatric: Yes: WNL Labs: CBC, BMP 07/20/17 12:45 07/22/17 06:55 INR, PTT INR 1.10 (0.82-1.09) 07/20/17 12:45 Problem List - Problems (1) COPD (chronic obstructive pulmonary disease) Code(s): J44.9 - CHRONIC OBSTRUCTIVE PULMONARY DISEASE, UNSPECIFIED Qualifiers: COPD type: COPD with acute exacerbation Qualified Code(s): J44.1 - Chronic obstructive pulmonary disease with (acute) exacerbation (2) Obesity Code(s): E66.9 - OBESITY, UNSPECIFIED Qualifiers: Obesity classification: adult class 3 (BMI >= 40) (3) Sleep apnea Code(s): G47.30 - SLEEP APNEA, UNSPECIFIED (4) Acute CHF Code(s): I50.9 - HEART FAILURE, UNSPECIFIED Qualifiers: Congestive heart failure type: systolic Qualified Code(s): I50.21 - Acute systolic (congestive) heart failure (5) Acute chronic obstructive pulmonary disease with respiratory distress Code(s): J44.9 - CHRONIC OBSTRUCTIVE PULMONARY DISEASE, UNSPECIFIED; R06.03 - ACUTE RESPIRATORY DISTRESS (6) Acute exacerbation of chronic obstructive pulmonary disease (COPD) Code(s): J44.1 - CHRONIC OBSTRUCTIVE PULMONARY DISEASE W (ACUTE) EXACERBATION (7) Acute on chronic respiratory failure with hypoxemia Code(s): J96.21 - ACUTE AND CHRONIC RESPIRATORY FAILURE WITH HYPOXIA (8) Acute on chronic respiratory failure with hypoxia and hypercapnia Code(s): J96.21 - ACUTE AND CHRONIC RESPIRATORY FAILURE WITH HYPOXIA; J96.22 - ACUTE AND CHRONIC RESPIRATORY FAILURE WITH HYPERCAPNIA (9) Diabetes mellitus Code(s): E11.9 - TYPE 2 DIABETES MELLITUS WITHOUT COMPLICATIONS Qualifiers: Diabetes mellitus type: type 2 Diabetes mellitus complication status: with other specified complication Assessment/Plan DIETARY CONSULT CARDIOLOGY STRESSED IMPORTANCE OF DIET AND CHF RESTRICTION OF FLUIDS 2 LITERS MAX DAILY LASIX BID BIPAP AT NIGHT STRICT COMPLIANCE TO AVOID READMISSIONS
--- NOTE | 2017-07-23 14:11 | PN ---
Progress Note, Physician Chief Complaint: sob History of Present Illness: sob still but better no cp, palpitations. legs swollen - Current Medication List Current Medications: Active Medications Acetaminophen (Tylenol -) 650 mg PO Q6H PRN PRN Reason: BACK PAIN Albuterol Sulfate (Ventolin 0.083% Nebulizer Soln -) 1 amp NEB Q4H PRN PRN Reason: SHORT OF BREATH/WHEEZING Albuterol/Ipratropium (Duoneb -) 1 amp NEB RQID [facility] Last Admin: 07/23/17 11:43 Dose: 1 amp Apixaban (Eliquis -) 5 mg PO BID [facility] Last Admin: 07/23/17 09:33 Dose: 5 mg Atorvastatin Calcium (Lipitor -) 40 mg PO HS [facility] Last Admin: 07/22/17 21:20 Dose: 40 mg Budesonide/Formoterol Fumarate (Symbicort 160/4.5mcg -) 2 puff IH BID [facility] Last Admin: 07/23/17 09:33 Dose: 2 puff Fluticasone Propionate (Flonase -) 2 spray NS DAILY [facility] Last Admin: 07/23/17 09:33 Dose: 2 sprays Furosemide (Lasix Injection -) 40 mg IVPUSH BID@1000,1600 [facility] Last Admin: 07/23/17 09:32 Dose: 40 mg Gabapentin (Neurontin -) 300 mg PO TID [facility] Last Admin: 07/23/17 13:38 Dose: 300 mg Insulin Aspart (Novolog Vial Sliding Scale -) 1 vial SQ ACHS [facility] PRN Reason: Protocol Last Admin: 07/23/17 12:03 Dose: 8 units Insulin Detemir (Levemir Vial) 40 units SQ BID@0700,2200 [facility] Loratadine (Claritin -) 10 mg PO DAILY [facility] Last Admin: 07/23/17 09:32 Dose: 10 mg Methylprednisolone Sodium Succinate (Solu-Medrol -) 60 mg IVPUSH TID [facility] Last Admin: 07/23/17 13:38 Dose: 60 mg Pantoprazole Sodium (Protonix -) 40 mg PO DAILY [facility] Last Admin: 07/23/17 09:32 Dose: 40 mg Sitagliptin Phosphate (Januvia -) 50 mg PO DAILY@0700 [facility] Last Admin: 07/23/17 06:24 Dose: 50 mg Sodium Chloride ([place] Nasal [place] -) 2 spray NS BID PRN PRN Reason: NASAL CONGESTION Tamsulosin HCl (Flomax -) 0.4 mg PO DAILY@0830 [facility] Last Admin: 07/23/17 09:32 Dose: 0.4 mg Verapamil HCl (Calan Sr -) 240 mg PO BID [facility] Last Admin: 07/23/17 09:32 Dose: 240 mg - Objective Vital Signs: Vital Signs Temperature 97.9 F 07/23/17 09:37 Pulse Rate 96 H 07/23/17 09:37 Respiratory Rate 18 07/23/17 09:37 Blood Pressure 110/57 07/23/17 09:37 O2 Sat by Pulse Oximetry (%) 97 07/23/17 11:42 Constitutional: Yes: No Distress, Calm, Obese Cardiovascular: Yes: Pulse Irregular (soft sounds), S1, S2. No: Gallop, Murmur Respiratory: Yes: Regular, Wheezes (bilat). No: Accessory Muscle Use, Rales Extremities: No: Cold Edema: Yes (1-2+ pretib bilat) Neurological: Yes: Alert, Oriented Psychiatric: No: Agitated Labs: CBC, BMP 07/20/17 12:45 07/22/17 06:55 INR, PTT INR 1.10 (0.82-1.09) 07/20/17 12:45 Assessment/Plan EKG: afib, 94 bpm. No ischemic changes. cxr: ?pna echo 07/2016: Nl lv/rv. 1+ AR mibi 12/2012: small posterior ischemia vs artifact, nl lvef, no tid a/p: 72 yo male with h/o AFib s/p prior DCCV 12/2015 to SR on AC, HTN, HL, dchf , PVCs with palpitations, morbid obesity, LUCY on bipap, severe COPD, here with sob. a.e. copd: - copd/lucy tx per pulm acute on chronic diastolic chf: - stopped doing home wts as previously advised by me. - self-d/c'd lasix 40 qd due to urinary frequency nuisance. - previous admits, wt up to 340s-350s when decomp chf, with signif incr LE edema - d/c wt 04/26 was 324. was 315 when left here recently, back up to 327 now. - 07/23: wt improving with lasix--cont lasix 40 mg IV bid. - low threshold to increase to 80 iv bid if wt stops declinining (pt has tendency towards volume retention with steroids in the past) - plan to d/c home on lasix 40-80 qd. pt advised when he f/u with me in office, if appears euvolemic, we will try QOD dosing only if he agrees to do home wts religiously paroxysmal AF/flutter -cont eliquis for AC -new dx 2015--req'd amio for HR control then (now off due to severe lung dz), s/ p successful DCCV 12/24, then reverted to afib -rate typically becomes elevated in settings of respiratory distress, also when verapamil given only 240 qd during prior admits. -HR currently acceptable. con't verapamil, dig (level good here). -defer AVN ablation/PPM unless future signs of HF being driven by rapid HRs (to date thus far, his AF rates are well-controlled at office, and only rapid sec to acute copd). -avoiding BB given severe bronchospasm/copd; would like to avoid long-term amio for same reason hld: -continue home statin htn: -stable on current meds possible cad: -pt had borderline positive mibi in 2013 vs soft tissue attenuation artifact -never had angina sx's -no signs acs here -continue medical management with statin, AC without ASA
--- NOTE | 2017-07-23 14:53 | PN ---
Progress Note (short form) - Note Progress Note: PULMONARY States breathing is slightly improved from yesterday. +cough and wheezing. Using BiPAP. Last Vital Signs Temp Pulse Resp BP Pulse Ox 97.9 F 96 H 18 110/57 97 07/23/17 09:37 07/23/17 09:37 07/23/17 09:37 07/23/17 09:37 07/23/17 11:42 Gen: mildly tachypneic with speaking Heart: RRR Lung: bilateral rhonchi, wheezes, decreased air movement Abd: soft, nontender Ext: + edema CBC, BMP 07/20/17 12:45 07/22/17 06:55 Active Medications Acetaminophen (Tylenol -) 650 mg PO Q6H PRN PRN Reason: BACK PAIN Albuterol Sulfate (Ventolin 0.083% Nebulizer Soln -) 1 amp NEB Q4H PRN PRN Reason: SHORT OF BREATH/WHEEZING Albuterol/Ipratropium (Duoneb -) 1 amp NEB RQID [facility] Last Admin: 07/23/17 11:43 Dose: 1 amp Apixaban (Eliquis -) 5 mg PO BID [facility] Last Admin: 07/23/17 09:33 Dose: 5 mg Atorvastatin Calcium (Lipitor -) 40 mg PO HS [facility] Last Admin: 07/22/17 21:20 Dose: 40 mg Budesonide/Formoterol Fumarate (Symbicort 160/4.5mcg -) 2 puff IH BID [facility] Last Admin: 07/23/17 09:33 Dose: 2 puff Fluticasone Propionate (Flonase -) 2 spray NS DAILY [facility] Last Admin: 07/23/17 09:33 Dose: 2 sprays Furosemide (Lasix Injection -) 40 mg IVPUSH BID@1000,1600 [facility] Last Admin: 07/23/17 09:32 Dose: 40 mg Gabapentin (Neurontin -) 300 mg PO TID [facility] Last Admin: 07/23/17 13:38 Dose: 300 mg Insulin Aspart (Novolog Vial Sliding Scale -) 1 vial SQ ACHS [facility] PRN Reason: Protocol Last Admin: 07/23/17 12:03 Dose: 8 units Insulin Detemir (Levemir Vial) 40 units SQ BID@0700,2200 [facility] Loratadine (Claritin -) 10 mg PO DAILY [facility] Last Admin: 07/23/17 09:32 Dose: 10 mg Methylprednisolone Sodium Succinate (Solu-Medrol -) 60 mg IVPUSH TID [facility] Last Admin: 07/23/17 13:38 Dose: 60 mg Pantoprazole Sodium (Protonix -) 40 mg PO DAILY [facility] Last Admin: 07/23/17 09:32 Dose: 40 mg Sitagliptin Phosphate (Januvia -) 50 mg PO DAILY@0700 [facility] Last Admin: 07/23/17 06:24 Dose: 50 mg Sodium Chloride ([place] Nasal [place] -) 2 spray NS BID PRN PRN Reason: NASAL CONGESTION Tamsulosin HCl (Flomax -) 0.4 mg PO DAILY@0830 [facility] Last Admin: 07/23/17 09:32 Dose: 0.4 mg Verapamil HCl (Calan Sr -) 240 mg PO BID [facility] Last Admin: 07/23/17 09:32 Dose: 240 mg A/P Acute COPD Exacerbation Chronic Hypoxic Respiratory Failure LUCY Acute on Chronic Diastolic Heart Failure Paroxysmal Atrial Flutter HTN Hyperlipidemia - continue medrol at current dose - inhaled bronchodilators standing and PRN - O2 to keep SpO2 >90% - continue lasix - monitor urine output, creatinine - BiPAP to assist in work of breathing - rate controlled - continue anticoagulation
[2017-07-23] MEDS: ATORVASTATIN CA 40 MG TABLET (FP) PO SCH (21:37)
[2017-07-24] MEDS: ALBUTEROL SO4 2.5/IPRATROPIUM 0.5 INH SOL 3 ML VIAL.NEB. NEB SCH ×4 (04:00→21:00)
[2017-07-24] MEDS: sitaGLIPtin PHOSPHATE 50 MG TABLET PO SCH (06:26)
[2017-07-24] MEDS: methylPREDNISolone NA SUCC 125 MG/2 ML VIAL IVPUSH SCH ×2 (06:26→15:00)
[2017-07-24] MEDS: GABAPENTIN 300 MG CAPSULE (FP) PO SCH ×3 (06:26→21:11)
[2017-07-24] MEDS: INSULIN DETEMIR 100 UNITS/ML MDV SQ SCH ×2 (06:27→21:10)
[2017-07-24] MEDS: INSULIN SLIDING SCALE (NOVOLOG) 1 VIAL SQ SCH ×4 (06:28→21:12)
[2017-07-24 07:38] LABS: ANION GAP 9 (8-16); BLOOD UREA NITROGEN 26 mg/dL (7-18); CHLORIDE 100 mmol/L (98-107); CO2 31 mmol/L (21-32); CREATININE 0.9 mg/dL (0.7-1.3); POTASSIUM 4.2 mmol/L (3.5-5.1); SODIUM 140 mmol/L (136-145)
[2017-07-24 08:35] LABS: GLUCOSE,RANDOM 329 mg/dL (74-106)
[2017-07-24] MEDS ORDERED: PT OWN MED DRAWER 7, Y5N ONE ×2 (09:50→20:03)
[2017-07-24] MEDS: LORATADINE 10 MG TABLET PO SCH (10:03)
[2017-07-24] MEDS: FLUTICASONE PROP 0.05% 16 GM NASAL SPRAY NS SCH (10:03)
[2017-07-24] MEDS: FUROSEMIDE 40 MG/4 ML INJECTABLE VIAL IVPUSH SCH ×2 (10:03→15:31)
[2017-07-24] MEDS: TAMSULOSIN HCL 0.4 MG CAP.ER.24H (FP) PO SCH (10:03)
[2017-07-24] MEDS: VERAPAMIL HCL 240 MG E.R. TABLET (FP) PO SCH ×2 (10:03→21:10)
[2017-07-24] MEDS: APIXABAN 5 MG TABLET PO SCH ×2 (10:03→21:10)
[2017-07-24] MEDS: BUDESONIDE/FORMETEROL FUMARATE 160/4.5 mcg INHALER IH SCH ×2 (10:04→21:13)
[2017-07-24] MEDS: PANTOPRAZOLE 40 MG TABLET (FP) PO SCH (10:04)
--- NOTE | 2017-07-24 10:52 | PN ---
Progress Note, Physician Chief Complaint: sob History of Present Illness: sob improving, still not at baseline. still wheezing. feet/ankles very swollen no cp, palpit - Current Medication List Current Medications: Active Medications Acetaminophen (Tylenol -) 650 mg PO Q6H PRN PRN Reason: BACK PAIN Albuterol Sulfate (Ventolin 0.083% Nebulizer Soln -) 1 amp NEB Q4H PRN PRN Reason: SHORT OF BREATH/WHEEZING Albuterol/Ipratropium (Duoneb -) 1 amp NEB RQID [facility] Last Admin: 07/24/17 09:30 Dose: 1 amp Apixaban (Eliquis -) 5 mg PO BID [facility] Last Admin: 07/24/17 10:03 Dose: 5 mg Atorvastatin Calcium (Lipitor -) 40 mg PO HS [facility] Last Admin: 07/23/17 21:37 Dose: 40 mg Budesonide/Formoterol Fumarate (Symbicort 160/4.5mcg -) 2 puff IH BID [facility] Last Admin: 07/24/17 10:04 Dose: 2 puff Fluticasone Propionate (Flonase -) 2 spray NS DAILY [facility] Last Admin: 07/24/17 10:03 Dose: 2 sprays Furosemide (Lasix Injection -) 40 mg IVPUSH BID@1000,1600 [facility] Last Admin: 07/24/17 10:03 Dose: 40 mg Gabapentin (Neurontin -) 300 mg PO TID [facility] Last Admin: 07/24/17 06:26 Dose: 300 mg Insulin Aspart (Novolog Vial Sliding Scale -) 1 vial SQ ACHS [facility] PRN Reason: Protocol Last Admin: 07/24/17 06:28 Dose: 10 units Insulin Detemir (Levemir Vial) 40 units SQ BID@0700,2200 [facility] Last Admin: 07/24/17 06:27 Dose: 40 units Loratadine (Claritin -) 10 mg PO DAILY [facility] Last Admin: 07/24/17 10:03 Dose: 10 mg Methylprednisolone Sodium Succinate (Solu-Medrol -) 60 mg IVPUSH TID [facility] Last Admin: 07/24/17 06:26 Dose: 60 mg Pantoprazole Sodium (Protonix -) 40 mg PO DAILY [facility] Last Admin: 07/24/17 10:04 Dose: 40 mg Sitagliptin Phosphate (Januvia -) 50 mg PO DAILY@0700 [facility] Last Admin: 07/24/17 06:26 Dose: 50 mg Sodium Chloride ([place] Nasal [place] -) 2 spray NS BID PRN PRN Reason: NASAL CONGESTION Tamsulosin HCl (Flomax -) 0.4 mg PO DAILY@0830 [facility] Last Admin: 07/24/17 10:03 Dose: 0.4 mg Verapamil HCl (Calan Sr -) 240 mg PO BID [facility] Last Admin: 07/24/17 10:03 Dose: 240 mg - Objective Vital Signs: Vital Signs Temperature 97.9 F 07/24/17 09:57 Pulse Rate 88 07/24/17 09:57 Respiratory Rate 18 07/24/17 09:57 Blood Pressure 103/67 07/24/17 09:57 O2 Sat by Pulse Oximetry (%) 96 07/24/17 10:00 Constitutional: Yes: No Distress, Calm, Obese Cardiovascular: Yes: Pulse Irregular (soft sounds), S1, S2. No: Gallop, Murmur Respiratory: Yes: Regular, Wheezes. No: Accessory Muscle Use, Rales Extremities: No: Cold Edema: Yes (2+ pretib, 3+ ankle/feet) Neurological: Yes: Alert, Oriented Psychiatric: No: Agitated Labs: CBC, BMP 07/20/17 12:45 07/24/17 06:55 INR, PTT INR 1.10 (0.82-1.09) 07/20/17 12:45 Assessment/Plan EKG: afib, 94 bpm. No ischemic changes. cxr: ?pna echo 07/2016: Nl lv/rv. 1+ AR mibi 12/2012: small posterior ischemia vs artifact, nl lvef, no tid a/p: 72 yo male with h/o AFib s/p prior DCCV 12/2015 to SR on AC, HTN, HL, dchf , PVCs with palpitations, morbid obesity, LUCY on bipap, severe COPD, here with sob. a.e. copd: - copd/lucy tx per pulm acute on chronic diastolic chf: - stopped doing home wts as previously advised by me. - self-d/c'd lasix 40 qd due to urinary frequency nuisance. - previous admits, wt up to 340s-350s when decomp chf, with signif incr LE edema - d/c wt 10/17 was 324. was 315 when left here recently, back up to 327 now. - 07/23: wt improving with lasix--cont lasix 40 mg IV bid. - 07/24: wt down (319). legs very swollen. labs stable. incr lasix 80 iv bid for now, until weaned further off solu-medrol. monitor daily BMP - low threshold to increase to 80 iv bid if wt stops declinining (pt has tendency towards volume retention with steroids in the past) - plan to d/c home on lasix 40-80 qd. pt advised when he f/u with me in office, if appears euvolemic, we will try QOD dosing only if he agrees to do home wts religiously paroxysmal AF/flutter -cont eliquis for AC -new dx 2015--req'd amio for HR control then (now off due to severe lung dz), s/ p successful DCCV 12/24, then reverted to afib -rate typically becomes elevated in settings of respiratory distress, also when verapamil given only 240 qd during prior admits. -HR currently acceptable. con't verapamil, dig (level good here). -defer AVN ablation/PPM unless future signs of HF being driven by rapid HRs (to date thus far, his AF rates are well-controlled at office, and only rapid sec to acute copd). -avoiding BB given severe bronchospasm/copd; would like to avoid long-term amio for same reason hld: -continue home statin htn: -stable on current meds possible cad: -pt had borderline positive mibi in 2012 vs soft tissue attenuation artifact -never had angina sx's -no signs acs here -continue medical management with statin, AC without ASA
[2017-07-24] MEDS ORDERED: INSULIN (NOVOLOG) ASPART 100 UNITS/ML 10ML VIAL ONE ×2 (11:22→18:26)
--- NOTE | 2017-07-24 12:26 | PN ---
Progress Note, Physician Chief Complaint: AWAKE ALERT NURSE STATED PATIENT EATING EXCESSIVELY AND DRINKING OVER THE RESTRICTED CHF AMOUNT I D/W PATIENT - Current Medication List Current Medications: Active Medications Acetaminophen (Tylenol -) 650 mg PO Q6H PRN PRN Reason: BACK PAIN Albuterol Sulfate (Ventolin 0.083% Nebulizer Soln -) 1 amp NEB Q4H PRN PRN Reason: SHORT OF BREATH/WHEEZING Albuterol/Ipratropium (Duoneb -) 1 amp NEB RQID [facility] Last Admin: 07/24/17 09:30 Dose: 1 amp Apixaban (Eliquis -) 5 mg PO BID [facility] Last Admin: 07/24/17 10:03 Dose: 5 mg Atorvastatin Calcium (Lipitor -) 40 mg PO HS [facility] Last Admin: 07/23/17 21:37 Dose: 40 mg Budesonide/Formoterol Fumarate (Symbicort 160/4.5mcg -) 2 puff IH BID [facility] Last Admin: 07/24/17 10:04 Dose: 2 puff Fluticasone Propionate (Flonase -) 2 spray NS DAILY [facility] Last Admin: 07/24/17 10:03 Dose: 2 sprays Furosemide (Lasix Injection -) 80 mg IVPUSH BID@1000,1600 [facility] Gabapentin (Neurontin -) 300 mg PO TID [facility] Last Admin: 07/24/17 06:26 Dose: 300 mg Insulin Aspart (Novolog Vial Sliding Scale -) 1 vial SQ ACHS [facility] PRN Reason: Protocol Last Admin: 07/24/17 11:26 Dose: 10 units Insulin Detemir (Levemir Vial) 40 units SQ BID@0700,2200 [facility] Last Admin: 07/24/17 06:27 Dose: 40 units Loratadine (Claritin -) 10 mg PO DAILY [facility] Last Admin: 07/24/17 10:03 Dose: 10 mg Methylprednisolone Sodium Succinate (Solu-Medrol -) 60 mg IVPUSH TID [facility] Last Admin: 07/24/17 06:26 Dose: 60 mg Pantoprazole Sodium (Protonix -) 40 mg PO DAILY [facility] Last Admin: 07/24/17 10:04 Dose: 40 mg Sitagliptin Phosphate (Januvia -) 50 mg PO DAILY@0700 [facility] Last Admin: 07/24/17 06:26 Dose: 50 mg Sodium Chloride ([place] Nasal [place] -) 2 spray NS BID PRN PRN Reason: NASAL CONGESTION Tamsulosin HCl (Flomax -) 0.4 mg PO DAILY@0830 [facility] Last Admin: 07/24/17 10:03 Dose: 0.4 mg Verapamil HCl (Calan Sr -) 240 mg PO BID [facility] Last Admin: 07/24/17 10:03 Dose: 240 mg - Objective Vital Signs: Vital Signs Temperature 97.9 F 07/24/17 09:57 Pulse Rate 88 07/24/17 09:57 Respiratory Rate 18 07/24/17 09:57 Blood Pressure 103/67 07/24/17 09:57 O2 Sat by Pulse Oximetry (%) 96 07/24/17 10:00 Constitutional: Yes: Mild Distress Eyes: Yes: WNL HENT: Yes: WNL Neck: Yes: WNL Cardiovascular: Yes: Pulse Irregular Respiratory: Yes: On BiPap Gastrointestinal: Yes: WNL Genitourinary: Yes: WNL Musculoskeletal: Yes: WNL Extremities: Yes: WNL Edema: Yes Peripheral Pulses WNL: Yes Integumentary: Yes: WNL Wound/Incision: Yes: Clean/Dry Neurological: Yes: WNL ...Motor Strength: WNL Psychiatric: Yes: WNL Labs: CBC, BMP 07/20/17 12:45 07/24/17 06:55 INR, PTT INR 1.10 (0.82-1.09) 07/20/17 12:45 Problem List - Problems (1) COPD (chronic obstructive pulmonary disease) Code(s): J44.9 - CHRONIC OBSTRUCTIVE PULMONARY DISEASE, UNSPECIFIED Qualifiers: COPD type: COPD with acute exacerbation Qualified Code(s): J44.1 - Chronic obstructive pulmonary disease with (acute) exacerbation (2) Obesity Code(s): E66.9 - OBESITY, UNSPECIFIED Qualifiers: Obesity classification: adult class 3 (BMI >= 40) (3) Sleep apnea Code(s): G47.30 - SLEEP APNEA, UNSPECIFIED (4) Acute CHF Code(s): I50.9 - HEART FAILURE, UNSPECIFIED Qualifiers: Congestive heart failure type: systolic Qualified Code(s): I50.21 - Acute systolic (congestive) heart failure (5) Acute chronic obstructive pulmonary disease with respiratory distress Code(s): J44.9 - CHRONIC OBSTRUCTIVE PULMONARY DISEASE, UNSPECIFIED; R06.03 - ACUTE RESPIRATORY DISTRESS (6) Acute exacerbation of chronic obstructive pulmonary disease (COPD) Code(s): J44.1 - CHRONIC OBSTRUCTIVE PULMONARY DISEASE W (ACUTE) EXACERBATION (7) Acute on chronic respiratory failure with hypoxemia Code(s): J96.21 - ACUTE AND CHRONIC RESPIRATORY FAILURE WITH HYPOXIA (8) Acute on chronic respiratory failure with hypoxia and hypercapnia Code(s): J96.21 - ACUTE AND CHRONIC RESPIRATORY FAILURE WITH HYPOXIA; J96.22 - ACUTE AND CHRONIC RESPIRATORY FAILURE WITH HYPERCAPNIA (9) Diabetes mellitus Code(s): E11.9 - TYPE 2 DIABETES MELLITUS WITHOUT COMPLICATIONS Qualifiers: Diabetes mellitus type: type 2 Diabetes mellitus complication status: with other specified complication Assessment/Plan DIETARY CONSULT CARDIOLOGY STRESSED IMPORTANCE OF DIET AND CHF RESTRICTION OF FLUIDS 2 LITERS MAX DAILY LASIX BID BIPAP AT NIGHT STRICT COMPLIANCE TO AVOID READMISSIONS
--- NOTE | 2017-07-24 14:02 | PN ---
Progress Note (short form) - Note Progress Note: PULMONARY Breathing continues to improve. Less cough and wheezing. Using BiPAP. Last Vital Signs Temp Pulse Resp BP Pulse Ox 97.9 F 88 18 103/67 95 07/24/17 09:57 07/24/17 09:57 07/24/17 09:57 07/24/17 09:57 07/24/17 12:05 Gen: less tachypneic with speaking Heart: RRR Lung: less bilateral rhonchi, wheezes, increased air movement Abd: soft, nontender Ext: + edema CBC, BMP 07/20/17 12:45 07/24/17 06:55 Active Medications Acetaminophen (Tylenol -) 650 mg PO Q6H PRN PRN Reason: BACK PAIN Albuterol Sulfate (Ventolin 0.083% Nebulizer Soln -) 1 amp NEB Q4H PRN PRN Reason: SHORT OF BREATH/WHEEZING Albuterol/Ipratropium (Duoneb -) 1 amp NEB RQID [facility] Last Admin: 07/24/17 12:28 Dose: 1 amp Apixaban (Eliquis -) 5 mg PO BID [facility] Last Admin: 07/24/17 10:03 Dose: 5 mg Atorvastatin Calcium (Lipitor -) 40 mg PO HS [facility] Last Admin: 07/23/17 21:37 Dose: 40 mg Budesonide/Formoterol Fumarate (Symbicort 160/4.5mcg -) 2 puff IH BID [facility] Last Admin: 07/24/17 10:04 Dose: 2 puff Fluticasone Propionate (Flonase -) 2 spray NS DAILY [facility] Last Admin: 07/24/17 10:03 Dose: 2 sprays Furosemide (Lasix Injection -) 80 mg IVPUSH BID@1000,1600 [facility] Gabapentin (Neurontin -) 300 mg PO TID [facility] Last Admin: 07/24/17 06:26 Dose: 300 mg Insulin Aspart (Novolog Vial Sliding Scale -) 1 vial SQ ACHS [facility] PRN Reason: Protocol Last Admin: 07/24/17 11:26 Dose: 10 units Insulin Detemir (Levemir Vial) 40 units SQ BID@0700,2200 [facility] Last Admin: 07/24/17 06:27 Dose: 40 units Loratadine (Claritin -) 10 mg PO DAILY [facility] Last Admin: 07/24/17 10:03 Dose: 10 mg Methylprednisolone Sodium Succinate (Solu-Medrol -) 60 mg IVPUSH TID [facility] Last Admin: 07/24/17 06:26 Dose: 60 mg Pantoprazole Sodium (Protonix -) 40 mg PO DAILY [facility] Last Admin: 07/24/17 10:04 Dose: 40 mg Sitagliptin Phosphate (Januvia -) 50 mg PO DAILY@0700 [facility] Last Admin: 07/24/17 06:26 Dose: 50 mg Sodium Chloride ([place] Nasal [place] -) 2 spray NS BID PRN PRN Reason: NASAL CONGESTION Tamsulosin HCl (Flomax -) 0.4 mg PO DAILY@0830 [facility] Last Admin: 07/24/17 10:03 Dose: 0.4 mg Verapamil HCl (Calan Sr -) 240 mg PO BID [facility] Last Admin: 07/24/17 10:03 Dose: 240 mg A/P Acute COPD Exacerbation Chronic Hypoxic Respiratory Failure LUCY Acute on Chronic Diastolic Heart Failure Paroxysmal Atrial Flutter HTN Hyperlipidemia - will decrease medrol to 40mg q12h - inhaled bronchodilators standing and PRN - O2 to keep SpO2 >90% - continue lasix - monitor urine output, creatinine - BiPAP to assist in work of breathing - rate controlled - continue anticoagulation
[2017-07-24] MEDS: methylPREDNISolone NA SUCC 40 MG/1 ML VIAL IVPUSH SCH (18:20)
[2017-07-24] MEDS: ATORVASTATIN CA 40 MG TABLET (FP) PO SCH (21:11)
[2017-07-25] MEDS: GABAPENTIN 300 MG CAPSULE (FP) PO SCH ×3 (06:26→21:11)
[2017-07-25] MEDS: sitaGLIPtin PHOSPHATE 50 MG TABLET PO SCH (06:27)
[2017-07-25] MEDS: INSULIN DETEMIR 100 UNITS/ML MDV SQ SCH ×2 (06:27→21:10)
[2017-07-25] MEDS: methylPREDNISolone NA SUCC 40 MG/1 ML VIAL IVPUSH SCH ×2 (06:27→17:36)
[2017-07-25] MEDS: INSULIN SLIDING SCALE (NOVOLOG) 1 VIAL SQ SCH ×4 (06:28→21:10)
[2017-07-25] MEDS: TAMSULOSIN HCL 0.4 MG CAP.ER.24H (FP) PO SCH (08:30)
[2017-07-25 08:36] LABS: CHLORIDE 99 mmol/L (98-107); POTASSIUM 3.8 mmol/L (3.5-5.1); SODIUM 142 mmol/L (136-145)
[2017-07-25] MEDS: ALBUTEROL SO4 2.5/IPRATROPIUM 0.5 INH SOL 3 ML VIAL.NEB. NEB SCH ×4 (08:50→21:30)
[2017-07-25 08:58] LABS: ANION GAP 10 (8-16); BLOOD UREA NITROGEN 23 mg/dL (7-18); CALCIUM 8.9 mg/dL (8.5-10.1); CO2 33 mmol/L (21-32); CREATININE 0.9 mg/dL (0.7-1.3); GLUCOSE,RANDOM 265 mg/dL (74-106)
[2017-07-25] MEDS ORDERED: PT OWN MED DRAWER 7, Y5N ONE (10:14)
[2017-07-25] MEDS: FUROSEMIDE 40 MG/4 ML INJECTABLE VIAL IVPUSH SCH ×2 (10:48→17:39)
[2017-07-25] MEDS: VERAPAMIL HCL 240 MG E.R. TABLET (FP) PO SCH ×2 (10:49→21:11)
[2017-07-25] MEDS: APIXABAN 5 MG TABLET PO SCH ×2 (10:49→21:11)
[2017-07-25] MEDS: BUDESONIDE/FORMETEROL FUMARATE 160/4.5 mcg INHALER IH SCH ×2 (10:49→21:09)
[2017-07-25] MEDS: PANTOPRAZOLE 40 MG TABLET (FP) PO SCH (10:49)
[2017-07-25] MEDS: LORATADINE 10 MG TABLET PO SCH (10:49)
[2017-07-25] MEDS: FLUTICASONE PROP 0.05% 16 GM NASAL SPRAY NS SCH (10:50)
--- NOTE | 2017-07-25 14:33 | PN ---
Progress Note, Physician History of Present Illness: pulmonary alert,feeling better,less dyspneic. - Current Medication List Current Medications: Active Medications Acetaminophen (Tylenol -) 650 mg PO Q6H PRN PRN Reason: BACK PAIN Albuterol Sulfate (Ventolin 0.083% Nebulizer Soln -) 1 amp NEB Q4H PRN PRN Reason: SHORT OF BREATH/WHEEZING Albuterol/Ipratropium (Duoneb -) 1 amp NEB RQID [facility] Last Admin: 07/25/17 13:00 Dose: 1 amp Apixaban (Eliquis -) 5 mg PO BID [facility] Last Admin: 07/25/17 10:49 Dose: 5 mg Atorvastatin Calcium (Lipitor -) 40 mg PO HS [facility] Last Admin: 07/24/17 21:11 Dose: 40 mg Budesonide/Formoterol Fumarate (Symbicort 160/4.5mcg -) 2 puff IH BID [facility] Last Admin: 07/25/17 10:49 Dose: 2 puff Fluticasone Propionate (Flonase -) 2 spray NS DAILY [facility] Last Admin: 07/25/17 10:50 Dose: 2 sprays Furosemide (Lasix Injection -) 80 mg IVPUSH BID@1000,1600 [facility] Last Admin: 07/25/17 10:48 Dose: 80 mg Gabapentin (Neurontin -) 300 mg PO TID [facility] Last Admin: 07/25/17 06:26 Dose: 300 mg Insulin Aspart (Novolog Vial Sliding Scale -) 1 vial SQ ACHS [facility] PRN Reason: Protocol Last Admin: 07/25/17 12:16 Dose: Not Given Insulin Detemir (Levemir Vial) 40 units SQ BID@0700,2200 [facility] Last Admin: 07/25/17 06:27 Dose: 40 units Loratadine (Claritin -) 10 mg PO DAILY [facility] Last Admin: 07/25/17 10:49 Dose: 10 mg Methylprednisolone Sodium Succinate (Solu-Medrol -) 40 mg IVPUSH BID@0600,1800 [facility] Last Admin: 07/25/17 06:27 Dose: 40 mg Pantoprazole Sodium (Protonix -) 40 mg PO DAILY [facility] Last Admin: 07/25/17 10:49 Dose: 40 mg Sitagliptin Phosphate (Januvia -) 50 mg PO DAILY@0700 [facility] Last Admin: 07/25/17 06:27 Dose: 50 mg Sodium Chloride ([place] Nasal [place] -) 2 spray NS BID PRN PRN Reason: NASAL CONGESTION Tamsulosin HCl (Flomax -) 0.4 mg PO DAILY@0830 [facility] Last Admin: 07/25/17 08:30 Dose: 0.4 mg Verapamil HCl (Calan Sr -) 240 mg PO BID [facility] Last Admin: 07/25/17 10:49 Dose: 240 mg - Objective Vital Signs: Vital Signs Temperature 98.0 F 07/25/17 06:00 Pulse Rate 85 07/25/17 06:00 Respiratory Rate 20 07/25/17 06:00 Blood Pressure 119/62 07/25/17 06:00 O2 Sat by Pulse Oximetry (%) 96 07/25/17 06:20 Constitutional: Yes: Calm, Obese Eyes: Yes: WNL HENT: Yes: WNL Neck: Yes: WNL Cardiovascular: Yes: Pulse Irregular, S1, S2 Respiratory: Yes: Wheezes (scattered kaylynn wheezes) Gastrointestinal: Yes: Normal Bowel Sounds, Soft Extremities: Yes: WNL Edema: Yes Labs: CBC, BMP 07/25/17 07:20 INR, PTT INR 1.10 (0.82-1.09) 07/20/17 12:45 Problem List - Problems (1) Obesity Code(s): E66.9 - OBESITY, UNSPECIFIED Qualifiers: Obesity classification: adult class 3 (BMI >= 40) (2) Sleep apnea Code(s): G47.30 - SLEEP APNEA, UNSPECIFIED (3) Acute chronic obstructive pulmonary disease with respiratory distress Code(s): J44.9 - CHRONIC OBSTRUCTIVE PULMONARY DISEASE, UNSPECIFIED; R06.03 - ACUTE RESPIRATORY DISTRESS (4) Atrial fibrillation Code(s): I48.91 - UNSPECIFIED ATRIAL FIBRILLATION Qualifiers: Atrial fibrillation type: unspecified Qualified Code(s): I48.91 - Unspecified atrial fibrillation (5) Chronic respiratory failure with hypoxia Code(s): J96.11 - CHRONIC RESPIRATORY FAILURE WITH HYPOXIA (6) Edema Code(s): R60.9 - EDEMA, UNSPECIFIED (7) HTN (hypertension) Code(s): I10 - ESSENTIAL (PRIMARY) HYPERTENSION Assessment/Plan A/P Acute COPD Exacerbation Chronic Hypoxic Respiratory Failure LUCY Acute on Chronic Diastolic Heart Failure Paroxysmal Atrial Flutter HTN Hyperlipidemia - medrol 40mg q12h - inhaled bronchodilators standing and PRN - O2 to keep SpO2 >90% - continue lasix - monitor urine output, creatinine - BiPAP to assist in work of breathing - rate controlled - anticoagulation DR STACK
--- NOTE | 2017-07-25 15:23 | PN ---
Progress Note, Physician - Current Medication List Current Medications: Active Medications Acetaminophen (Tylenol -) 650 mg PO Q6H PRN PRN Reason: BACK PAIN Albuterol Sulfate (Ventolin 0.083% Nebulizer Soln -) 1 amp NEB Q4H PRN PRN Reason: SHORT OF BREATH/WHEEZING Albuterol/Ipratropium (Duoneb -) 1 amp NEB RQID [facility] Last Admin: 07/25/17 13:00 Dose: 1 amp Apixaban (Eliquis -) 5 mg PO BID [facility] Last Admin: 07/25/17 10:49 Dose: 5 mg Atorvastatin Calcium (Lipitor -) 40 mg PO HS [facility] Last Admin: 07/24/17 21:11 Dose: 40 mg Budesonide/Formoterol Fumarate (Symbicort 160/4.5mcg -) 2 puff IH BID [facility] Last Admin: 07/25/17 10:49 Dose: 2 puff Fluticasone Propionate (Flonase -) 2 spray NS DAILY [facility] Last Admin: 07/25/17 10:50 Dose: 2 sprays Furosemide (Lasix Injection -) 80 mg IVPUSH BID@1000,1600 [facility] Last Admin: 07/25/17 10:48 Dose: 80 mg Gabapentin (Neurontin -) 300 mg PO TID [facility] Last Admin: 07/25/17 06:26 Dose: 300 mg Insulin Aspart (Novolog Vial Sliding Scale -) 1 vial SQ ACHS [facility] PRN Reason: Protocol Last Admin: 07/25/17 12:16 Dose: Not Given Insulin Detemir (Levemir Vial) 40 units SQ BID@0700,2200 [facility] Last Admin: 07/25/17 06:27 Dose: 40 units Loratadine (Claritin -) 10 mg PO DAILY [facility] Last Admin: 07/25/17 10:49 Dose: 10 mg Methylprednisolone Sodium Succinate (Solu-Medrol -) 40 mg IVPUSH BID@0600,1800 [facility] Last Admin: 07/25/17 06:27 Dose: 40 mg Pantoprazole Sodium (Protonix -) 40 mg PO DAILY [facility] Last Admin: 07/25/17 10:49 Dose: 40 mg Sitagliptin Phosphate (Januvia -) 50 mg PO DAILY@0700 [facility] Last Admin: 07/25/17 06:27 Dose: 50 mg Sodium Chloride ([place] Nasal [place] -) 2 spray NS BID PRN PRN Reason: NASAL CONGESTION Tamsulosin HCl (Flomax -) 0.4 mg PO DAILY@0830 [facility] Last Admin: 07/25/17 08:30 Dose: 0.4 mg Verapamil HCl (Calan Sr -) 240 mg PO BID [facility] Last Admin: 07/25/17 10:49 Dose: 240 mg - Objective Vital Signs: Vital Signs Temperature 97.4 F L 07/25/17 14:42 Pulse Rate 118 H 07/25/17 14:42 Respiratory Rate 18 07/25/17 14:42 Blood Pressure 117/76 07/25/17 14:42 O2 Sat by Pulse Oximetry (%) 94 L 07/25/17 09:00 Labs: CBC, BMP 07/20/17 12:45 07/25/17 07:20 INR, PTT INR 1.10 (0.82-1.09) 07/20/17 12:45 Problem List - Problems (1) COPD (chronic obstructive pulmonary disease) Code(s): J44.9 - CHRONIC OBSTRUCTIVE PULMONARY DISEASE, UNSPECIFIED Qualifiers: COPD type: COPD with acute exacerbation Qualified Code(s): J44.1 - Chronic obstructive pulmonary disease with (acute) exacerbation (2) Obesity Code(s): E66.9 - OBESITY, UNSPECIFIED Qualifiers: Obesity classification: adult class 3 (BMI >= 40) (3) Sleep apnea Code(s): G47.30 - SLEEP APNEA, UNSPECIFIED (4) Acute CHF Code(s): I50.9 - HEART FAILURE, UNSPECIFIED Qualifiers: Congestive heart failure type: systolic Qualified Code(s): I50.21 - Acute systolic (congestive) heart failure (5) Acute chronic obstructive pulmonary disease with respiratory distress Code(s): J44.9 - CHRONIC OBSTRUCTIVE PULMONARY DISEASE, UNSPECIFIED; R06.03 - ACUTE RESPIRATORY DISTRESS (6) Acute exacerbation of chronic obstructive pulmonary disease (COPD) Code(s): J44.1 - CHRONIC OBSTRUCTIVE PULMONARY DISEASE W (ACUTE) EXACERBATION (7) Acute on chronic respiratory failure with hypoxemia Code(s): J96.21 - ACUTE AND CHRONIC RESPIRATORY FAILURE WITH HYPOXIA (8) Acute on chronic respiratory failure with hypoxia and hypercapnia Code(s): J96.21 - ACUTE AND CHRONIC RESPIRATORY FAILURE WITH HYPOXIA; J96.22 - ACUTE AND CHRONIC RESPIRATORY FAILURE WITH HYPERCAPNIA (9) Diabetes mellitus Code(s): E11.9 - TYPE 2 DIABETES MELLITUS WITHOUT COMPLICATIONS Qualifiers: Diabetes mellitus type: type 2 Diabetes mellitus complication status: with other specified complication
--- NOTE | 2017-07-25 16:09 | PN ---
Progress Note, Physician Chief Complaint: sob History of Present Illness: can breathe deeper, air flow feels better feet still very swollen no palpit, cp - Current Medication List Current Medications: Active Medications Acetaminophen (Tylenol -) 650 mg PO Q6H PRN PRN Reason: BACK PAIN Albuterol Sulfate (Ventolin 0.083% Nebulizer Soln -) 1 amp NEB Q4H PRN PRN Reason: SHORT OF BREATH/WHEEZING Albuterol/Ipratropium (Duoneb -) 1 amp NEB RQID [facility] Last Admin: 07/25/17 16:00 Dose: 1 amp Apixaban (Eliquis -) 5 mg PO BID [facility] Last Admin: 07/25/17 10:49 Dose: 5 mg Atorvastatin Calcium (Lipitor -) 40 mg PO HS [facility] Last Admin: 07/24/17 21:11 Dose: 40 mg Budesonide/Formoterol Fumarate (Symbicort 160/4.5mcg -) 2 puff IH BID [facility] Last Admin: 07/25/17 10:49 Dose: 2 puff Fluticasone Propionate (Flonase -) 2 spray NS DAILY [facility] Last Admin: 07/25/17 10:50 Dose: 2 sprays Furosemide (Lasix Injection -) 80 mg IVPUSH BID@1000,1600 [facility] Last Admin: 07/25/17 10:48 Dose: 80 mg Gabapentin (Neurontin -) 300 mg PO TID [facility] Last Admin: 07/25/17 14:00 Dose: 300 mg Insulin Aspart (Novolog Vial Sliding Scale -) 1 vial SQ ACHS [facility] PRN Reason: Protocol Last Admin: 07/25/17 12:16 Dose: Not Given Insulin Detemir (Levemir Vial) 40 units SQ BID@0700,2200 [facility] Last Admin: 07/25/17 06:27 Dose: 40 units Loratadine (Claritin -) 10 mg PO DAILY [facility] Last Admin: 07/25/17 10:49 Dose: 10 mg Methylprednisolone Sodium Succinate (Solu-Medrol -) 40 mg IVPUSH BID@0600,1800 [facility] Last Admin: 07/25/17 06:27 Dose: 40 mg Pantoprazole Sodium (Protonix -) 40 mg PO DAILY [facility] Last Admin: 07/25/17 10:49 Dose: 40 mg Sitagliptin Phosphate (Januvia -) 50 mg PO DAILY@0700 [facility] Last Admin: 01/15/18 06:27 Dose: 50 mg Sodium Chloride ([place] Nasal [place] -) 2 spray NS BID PRN PRN Reason: NASAL CONGESTION Tamsulosin HCl (Flomax -) 0.4 mg PO DAILY@0830 [facility] Last Admin: 07/25/17 08:30 Dose: 0.4 mg Verapamil HCl (Calan Sr -) 240 mg PO BID [facility] Last Admin: 07/25/17 10:49 Dose: 240 mg - Objective Vital Signs: Vital Signs Temperature 97.4 F L 07/25/17 14:42 Pulse Rate 118 H 07/25/17 14:42 Respiratory Rate 18 07/25/17 14:42 Blood Pressure 117/76 07/25/17 14:42 O2 Sat by Pulse Oximetry (%) 94 L 07/25/17 09:00 Constitutional: Yes: No Distress, Calm, Obese Cardiovascular: Yes: Pulse Irregular, S1, S2. No: Gallop (decr sounds), Murmur Respiratory: Yes: Regular, Wheezes (faint, bilat). No: Accessory Muscle Use, Rales Extremities: No: Cold Edema: Yes (1-2+ pretib, 3+ pedal) Neurological: Yes: Alert, Oriented Psychiatric: No: Agitated Labs: CBC, BMP 07/20/17 12:45 07/25/17 07:20 INR, PTT INR 1.10 (0.82-1.09) 07/20/17 12:45 Assessment/Plan EKG: afib, 94 bpm. No ischemic changes. cxr: ?pna echo 07/2016: Nl lv/rv. 1+ AR mibi 12/2012: small posterior ischemia vs artifact, nl lvef, no tid a/p: 72 yo male with h/o AFib s/p prior DCCV 12/2015 to SR on AC, HTN, HL, dchf , PVCs with palpitations, morbid obesity, LUCY on bipap, severe COPD, here with sob. a.e. copd: - copd/lucy tx per pulm acute on chronic diastolic chf: - stopped doing home wts as previously advised by me. - self-d/c'd lasix 40 qd due to urinary frequency nuisance. - previous admits, wt up to 340s-350s when decomp chf, with signif incr LE edema - d/c wt 04/26 was 324. was 315 when left here recently, back up to 327 now. - 07/23: wt improving with lasix--cont lasix 40 mg IV bid. - 07/24: wt down (319). legs very swollen. labs stable. increased lasix 80 iv bid for now, until weaned further off solu-medrol. monitor daily BMP - 07/25: feet same, wt coming down. labs stable. continue lasix 80 iv bid - plan to d/c home on lasix 40-80 qd. pt advised when he f/u with me in office, if appears euvolemic, we will try QOD dosing only if he agrees to do home wts religiously paroxysmal AF/flutter -cont eliquis for AC -new dx 2015--req'd amio for HR control then (now off due to severe lung dz), s/ p successful DCCV 12/24, then reverted to afib -rate typically becomes elevated in settings of respiratory distress, also when verapamil given only 240 qd during prior admits. -HR currently acceptable. con't verapamil, dig (level good here). -defer AVN ablation/PPM unless future signs of HF being driven by rapid HRs (to date thus far, his AF rates are well-controlled at office, and only rapid sec to acute copd). -avoiding BB given severe bronchospasm/copd; would like to avoid long-term amio for same reason hld: -continue home statin htn: -stable on current meds possible cad: -pt had borderline positive mibi in 2012 vs soft tissue attenuation artifact -never had angina sx's -no signs acs here -continue medical management with statin, AC without ASA
[2017-07-25] MEDS ORDERED: INSULIN (NOVOLOG) ASPART 100 UNITS/ML 10ML VIAL ONE (17:31)
--- NOTE | 2017-07-25 18:10 | DS ---
Physical Examination Vital Signs: Vital Signs Temperature 98.1 F 07/25/17 18:00 Pulse Rate 118 H 07/25/17 14:42 Respiratory Rate 20 07/25/17 18:00 Blood Pressure 116/98 07/25/17 18:00 O2 Sat by Pulse Oximetry (%) 94 L 07/25/17 09:00 Constitutional: Yes: Mild Distress Eyes: Yes: WNL HENT: Yes: WNL Neck: Yes: WNL Cardiovascular: Yes: Pulse Irregular Respiratory: Yes: Orthopnea, Poor Air Entry, SOB Gastrointestinal: Yes: WNL Renal/: Yes: WNL Musculoskeletal: Yes: WNL Extremities: Yes: WNL Edema: Yes Peripheral Pulses WNL: Yes Integumentary: Yes: WNL Wound/Incision: Yes: Clean/Dry Neurological: Yes: WNL ...Motor Strength: WNL Psychiatric: Yes: WNL Labs: CBC, BMP 07/20/17 12:45 07/25/17 07:20 Discharge Summary Reason For Visit: COPD Current Active Problems COPD (chronic obstructive pulmonary disease) (Acute) Obesity (Acute) Sleep apnea (Acute) Procedures: Principal: CXR / LABS Hospital Course: ADMITTED FOR CHF AND COPD ACUTE ON CHRONIC EXACERBATIONS, IV LASIX AND STEROIDS , DC PLANNING WITH NURSE CARE AT HOME DAILY WEIGHTS Condition: Fair - Instructions Diet, Activity, Other Instructions: LOW SALT DIET HOME 02 STRICT CONTROLL OF DIET AND DAILY WEIGHTS Referrals: Mars Brothers MD [Primary Care Provider] - Disposition: VNS/HOME HEALTH CARE - Home Medications Comprehensive Discharge Medication List: Ambulatory Orders Apixaban [Eliquis] 5 mg PO BID 08/26/16 Tamsulosin HCl [Flomax] 0.4 mg PO DAILY 08/26/16 Verapamil HCl [Verapamil ER] 240 mg PO BID 08/26/16 Insulin (Novolog) [Novolog -] 0 units SQ AC #1 vial 04/17/17 Sitagliptin Phos/Metformin HCl [Janumet 50-1,000 mg Tablet] 1 each PO DAILY #30 tab 04/17/17 Acetaminophen [Tylenol .Regular Strength -] 650 mg PO Q6H PRN tablet 07/15/17 Albuterol 0.083% Nebulizer [place] [Ventolin 0.083% Nebulizer Soln -] 1 amp NEB Q4H PRN #120 amp 07/15/17 Atorvastatin Ca [Lipitor] 40 mg PO HS #30 tablet 07/15/17 Budesonide/Formeterol Fumarate [SYMBICORT 160/4.5mcg -] 2 puff IH BID #1 inhaler 07/15/17 Digoxin [Lanoxin -] 0.125 mg PO DAILY tablet 07/15/17 Fluticasone Prop 0.05% Nasal [Flonase -] 2 spray NS DAILY #1 spray 07/15/17 Furosemide [Lasix -] 40 mg PO DAILY tablet 07/15/17 Gabapentin [Neurontin -] 300 mg PO TID #90 capsule 07/15/17 Insulin (Levemir) [Levemir Flexpen -] 30 units SQ BID #4 syr 07/15/17 Metformin HCl [Glucophage -] 500 mg PO BID@0700,1630 tablet 07/15/17 Pantoprazole Sodium [Protonix -] 40 mg PO DAILY tablet.ec 07/15/17 Prednisone [Deltasone -] 60 mg PO DAILY #30 tablet 07/15/17
[2017-07-25] MEDS: ATORVASTATIN CA 40 MG TABLET (FP) PO SCH (21:11)
[2017-07-26] MEDS: INSULIN SLIDING SCALE (NOVOLOG) 1 VIAL SQ SCH ×2 (06:27→11:37)
[2017-07-26] MEDS: sitaGLIPtin PHOSPHATE 50 MG TABLET PO SCH (06:27)
[2017-07-26] MEDS: GABAPENTIN 300 MG CAPSULE (FP) PO SCH ×2 (06:27→14:00)
[2017-07-26] MEDS: methylPREDNISolone NA SUCC 40 MG/1 ML VIAL IVPUSH SCH (06:27)
[2017-07-26] MEDS: INSULIN DETEMIR 100 UNITS/ML MDV SQ SCH (06:28)
[2017-07-26 06:59] LABS: ANION GAP 6 (8-16); BLOOD UREA NITROGEN 26 mg/dL (7-18); CALCIUM 9.1 mg/dL (8.5-10.1); CHLORIDE 97 mmol/L (98-107); CO2 36 mmol/L (21-32); POTASSIUM 3.9 mmol/L (3.5-5.1); SODIUM 139 mmol/L (136-145)
[2017-07-26] MEDS ORDERED: INSULIN (NOVOLOG) ASPART 100 UNITS/ML 10ML VIAL ONE ×2 (07:00→11:21)
[2017-07-26 07:14] LABS: GLUCOSE,RANDOM 344 mg/dL (74-106)
[2017-07-26] MEDS: ALBUTEROL SO4 2.5/IPRATROPIUM 0.5 INH SOL 3 ML VIAL.NEB. NEB SCH ×3 (08:01→16:00)
[2017-07-26 09:04] VITALS: BP 132/76; PULSE 84; TEMP 97.8
[2017-07-26] MEDS: TAMSULOSIN HCL 0.4 MG CAP.ER.24H (FP) PO SCH (09:31)
[2017-07-26] MEDS ORDERED: PT OWN MED DRAWER 7, Y5N ONE (10:02)
[2017-07-26] MEDS: APIXABAN 5 MG TABLET PO SCH (10:11)
[2017-07-26] MEDS: PANTOPRAZOLE 40 MG TABLET (FP) PO SCH (10:11)
[2017-07-26] MEDS: VERAPAMIL HCL 240 MG E.R. TABLET (FP) PO SCH (10:11)
[2017-07-26] MEDS: FLUTICASONE PROP 0.05% 16 GM NASAL SPRAY NS SCH (10:11)
[2017-07-26] MEDS: LORATADINE 10 MG TABLET PO SCH (10:11)
[2017-07-26] MEDS: BUDESONIDE/FORMETEROL FUMARATE 160/4.5 mcg INHALER IH SCH (10:12)
[2017-07-26] MEDS: FUROSEMIDE 40 MG/4 ML INJECTABLE VIAL IVPUSH SCH (11:36)
--- NOTE | 2017-07-26 12:16 | DS ---
Physical Examination Vital Signs: Vital Signs Temperature 97.8 F 07/26/17 09:03 Pulse Rate 84 07/26/17 09:03 Respiratory Rate 20 07/26/17 09:03 Blood Pressure 132/76 07/26/17 09:03 O2 Sat by Pulse Oximetry (%) 96 07/26/17 10:02 Constitutional: Yes: Well Nourished, No Distress, Calm Cardiovascular: Yes: Regular Rate and Rhythm Respiratory: Yes: Regular Gastrointestinal: Yes: Normal Bowel Sounds, Abdomen, Obese Musculoskeletal: Yes: WNL Extremities: Yes: WNL Neurological: Yes: Alert, Oriented Psychiatric: Yes: Alert, Oriented Labs: CBC, BMP 07/20/17 12:45 07/26/17 06:05 Discharge Summary Reason For Visit: COPD Current Active Problems COPD (chronic obstructive pulmonary disease) (Acute) Obesity (Acute) Sleep apnea (Acute) Hospital Course: "The patient is a 72 year old male, with a significant past medical history of COPD, asthma (on Albuterol MDI and Nebulizer tx as well as Spiriva), CHF (on 4 L oxygen / at home and on BiPAP at night, on 20 mg Lasix daily), IDDM, HTN, HLD, DM, AFib, CAD, who presents to the emergency department with shortness of breath and lower extremity edema for approximately 5 days. The patient reports he was recently admitted to the hospital on 07/04/17 with similar symptoms and discharged on 07/15/16. After he was discharged, patient reports immediately noticing dyspnea on exertion getting out of the cab and walking home. Since then he reports increased ankle swelling, more than his baseline. He reports using his Nebulizer this morning with mild relief. He also states he is compliant with his lasix (takes 40mg daily). He denies any associated chest pain , diaphoresis, or palpitations. He denies any fever, chills, headache, or dizziness. He denies any abdominal pain, nausea, vomiting, or changes in urination. Condition: Stable - Instructions Diet, Activity, Other Instructions: LOW SALT DIET HOME 02 STRICT CONTROLL OF DIET AND DAILY WEIGHTS Continue using Bipap at home Tapering dose of Prednisone: 40 mg 2 x day for 3 days, then; 30 mg 2 x day for 3 days, then; 20 mg 2 x day for 3 days, then; 10 mg 2 x day for 3 days, then; 10 mg once a day for 3 days, then; 5 mg once a day for 3 days and then stop. Referrals: Mars Brothers MD [Primary Care Provider] - Disposition: VNS/HOME HEALTH CARE - Home Medications Comprehensive Discharge Medication List: Ambulatory Orders Apixaban [Eliquis] 5 mg PO BID 08/26/16 Tamsulosin HCl [Flomax] 0.4 mg PO DAILY 08/26/16 Verapamil HCl [Verapamil ER] 240 mg PO BID 08/26/16 Insulin (Novolog) [Novolog -] 0 units SQ AC #1 vial 04/17/17 Sitagliptin Phos/Metformin HCl [Janumet 50-1,000 mg Tablet] 1 each PO DAILY #30 tab 04/17/17 Acetaminophen [Tylenol .Regular Strength -] 650 mg PO Q6H PRN tablet 07/15/17 Albuterol 0.083% Nebulizer [place] [Ventolin 0.083% Nebulizer Soln -] 1 amp NEB Q4H PRN #120 amp 07/15/17 Atorvastatin Ca [Lipitor] 40 mg PO HS #30 tablet 07/15/17 Budesonide/Formeterol Fumarate [SYMBICORT 160/4.5mcg -] 2 puff IH BID #1 inhaler 07/15/17 Digoxin [Lanoxin -] 0.125 mg PO DAILY tablet 07/15/17 Fluticasone Prop 0.05% Nasal [Flonase -] 2 spray NS DAILY #1 spray 07/15/17 Gabapentin [Neurontin -] 300 mg PO TID #90 capsule 07/15/17 Insulin (Levemir) [Levemir Flexpen -] 30 units SQ BID #4 syr 07/15/17 Metformin HCl [Glucophage -] 500 mg PO BID@0700,1630 tablet 07/15/17 Pantoprazole Sodium [Protonix -] 40 mg PO DAILY tablet.ec 07/15/17 Prednisone [Deltasone -] 60 mg PO DAILY #30 tablet 07/15/17 Acetaminophen [Tylenol .Regular Strength -] 650 mg PO Q6H PRN tablet 07/26/17 Albuterol 0.083% Nebulizer [place] [Ventolin 0.083% Nebulizer Soln -] 1 amp NEB Q4H PRN amp 07/26/17 Albuterol 2.5/Ipratropium 0.5 [Duoneb -] 1 amp NEB RQID amp 07/26/17 Apixaban [Eliquis -] 5 mg PO BID tablet 07/26/17 Atorvastatin Ca [Lipitor] 40 mg PO HS tablet 07/26/17 Budesonide/Formeterol Fumarate [SYMBICORT 160/4.5mcg -] 2 puff IH BID inhaler 07/26/17 Fluticasone Prop 0.05% Nasal [Flonase -] 2 spray NS DAILY spray 07/26/17 Furosemide [Lasix -] 40 mg PO BID #60 tablet 07/26/17 Gabapentin [Neurontin -] 300 mg PO TID capsule 07/26/17 Loratadine [Claritin -] 10 mg PO DAILY tablet 07/26/17 Pantoprazole Sodium [Protonix -] 40 mg PO DAILY tablet.ec 07/26/17 Sodium Chloride Nasal [place] [[place] Nasal [place] -] 2 spray NS BID PRN spray 07/26/17 Tamsulosin HCl [Flomax -] 0.4 mg PO DAILY@0830 cap.er.24h 07/26/17 Verapamil HCl ER [Calan Sr -] 240 mg PO BID tablet.er 07/26/17
--- NOTE | 2017-07-26 16:49 | PN ---
Progress Note, Physician - Current Medication List Current Medications: Active Medications Acetaminophen (Tylenol -) 650 mg PO Q6H PRN PRN Reason: BACK PAIN Albuterol Sulfate (Ventolin 0.083% Nebulizer Soln -) 1 amp NEB Q4H PRN PRN Reason: SHORT OF BREATH/WHEEZING Albuterol/Ipratropium (Duoneb -) 1 amp NEB RQID [facility] Last Admin: 07/26/17 16:00 Dose: 1 amp Apixaban (Eliquis -) 5 mg PO BID [facility] Last Admin: 07/26/17 10:11 Dose: 5 mg Atorvastatin Calcium (Lipitor -) 40 mg PO HS [facility] Last Admin: 07/25/17 21:11 Dose: 40 mg Budesonide/Formoterol Fumarate (Symbicort 160/4.5mcg -) 2 puff IH BID [facility] Last Admin: 07/26/17 10:12 Dose: 2 puff Fluticasone Propionate (Flonase -) 2 spray NS DAILY [facility] Last Admin: 07/26/17 10:11 Dose: 2 sprays Furosemide (Lasix Injection -) 80 mg IVPUSH BID@1000,1600 [facility] Last Admin: 07/26/17 11:36 Dose: Not Given Gabapentin (Neurontin -) 300 mg PO TID [facility] Last Admin: 07/26/17 14:00 Dose: 300 mg Insulin Aspart (Novolog Vial Sliding Scale -) 1 vial SQ ACHS [facility] PRN Reason: Protocol Last Admin: 07/26/17 11:37 Dose: 8 units Insulin Detemir (Levemir Vial) 40 units SQ BID@0700,2200 [facility] Last Admin: 07/26/17 06:28 Dose: 40 units Loratadine (Claritin -) 10 mg PO DAILY [facility] Last Admin: 07/26/17 10:11 Dose: 10 mg Methylprednisolone Sodium Succinate (Solu-Medrol -) 40 mg IVPUSH BID@0600,1800 [facility] Last Admin: 07/26/17 06:27 Dose: 40 mg Pantoprazole Sodium (Protonix -) 40 mg PO DAILY [facility] Last Admin: 07/26/17 10:11 Dose: 40 mg Sitagliptin Phosphate (Januvia -) 50 mg PO DAILY@0700 [facility] Last Admin: 07/26/17 06:27 Dose: 50 mg Sodium Chloride ([place] Nasal [place] -) 2 spray NS BID PRN PRN Reason: NASAL CONGESTION Tamsulosin HCl (Flomax -) 0.4 mg PO DAILY@0830 [facility] Last Admin: 07/26/17 09:31 Dose: 0.4 mg Verapamil HCl (Calan Sr -) 240 mg PO BID [facility] Last Admin: 07/26/17 10:11 Dose: 240 mg - Objective Vital Signs: Vital Signs Temperature 97.8 F 07/26/17 09:03 Pulse Rate 84 07/26/17 09:03 Respiratory Rate 20 07/26/17 09:03 Blood Pressure 132/76 07/26/17 09:03 O2 Sat by Pulse Oximetry (%) 96 07/26/17 10:02 Labs: CBC, BMP 07/20/17 12:45 07/26/17 06:05 INR, PTT INR 1.10 (0.82-1.09) 07/20/17 12:45 Assessment/Plan EKG: afib, 94 bpm. No ischemic changes. cxr: ?pna echo 07/2016: Nl lv/rv. 1+ AR mibi 12/2012: small posterior ischemia vs artifact, nl lvef, no tid a/p: 72 yo male with h/o AFib s/p prior DCCV 12/2015 to SR on AC, HTN, HL, dchf , PVCs with palpitations, morbid obesity, LUCY on bipap, severe COPD, here with sob. a.e. copd: - copd/lucy tx per pulm acute on chronic diastolic chf: - stopped doing home wts as previously advised by me. - self-d/c'd lasix 40 qd due to urinary frequency nuisance. - previous admits, wt up to 340s-350s when decomp chf, with signif incr LE edema - d/c wt 04/26 was 324. was 315 when left here recently, back up to 327 now. - 07/23: wt improving with lasix--cont lasix 40 mg IV bid. - 07/24: wt down (319). legs very swollen. labs stable. increased lasix 80 iv bid for now, until weaned further off solu-medrol. monitor daily BMP - 07/25: feet same, wt coming down. labs stable. continue lasix 80 iv bid - 07/26: wt continues to decline. labs stable. no hypotension. - plan to d/c home on lasix 40-80 qd. pt advised when he f/u with me in office, if appears euvolemic, we will try QOD dosing only if he agrees to do home wts religiously paroxysmal AF/flutter -cont eliquis for AC -new dx 2015--req'd amio for HR control then (now off due to severe lung dz), s/ p successful DCCV 12/24, then reverted to afib -rate typically becomes elevated in settings of respiratory distress, also when verapamil given only 240 qd during prior admits. -HR currently acceptable. con't verapamil, dig (level good here). -defer AVN ablation/PPM unless future signs of HF being driven by rapid HRs (to date thus far, his AF rates are well-controlled at office, and only rapid sec to acute copd). -avoiding BB given severe bronchospasm/copd; would like to avoid long-term amio for same reason hld: -continue home statin htn: -stable on current meds possible cad: -pt had borderline positive mibi in 2012 vs soft tissue attenuation artifact -never had angina sx's -no signs acs here -continue medical management with statin, AC without ASA
== END 2017-07-26 16:59 | disposition home or self-care (01) | DRG 291 ==
LOC: JER 11:15 → JERBED 16:20 → OBSVTOIN 07-21 11:12 → J5S 07-21 21:26
PROVIDERS: ADMIT Family Medicine; ATTEND Family Medicine
PROC: 5A09557 Assistance with Respiratory Ventilation, Greater than 96 Consecutive Hours, Continuous Positive Airway Pressure (ICD-10-PCS; principal; 2017-07-20)
DX: I11.0 Hypertensive heart disease with heart failure (principal); J96.21 Acute and chronic respiratory failure with hypoxia; J96.22 Acute and chronic respiratory failure with hypercapnia; Z68.41 Body mass index [BMI] 40.0-44.9, adult; I48.92 Unspecified atrial flutter; J44.0 Chronic obstructive pulmonary disease with (acute) lower respiratory infection; I50.33 Acute on chronic diastolic (congestive) heart failure; I42.8 Other cardiomyopathies; I48.0 Paroxysmal atrial fibrillation; E11.9 Type 2 diabetes mellitus without complications; I25.10 Atherosclerotic heart disease of native coronary artery without angina pectoris; E78.5 Hyperlipidemia, unspecified; J20.9 Acute bronchitis, unspecified; K76.0 Fatty (change of) liver, not elsewhere classified; E66.01 Morbid (severe) obesity due to excess calories; G47.33 Obstructive sleep apnea (adult) (pediatric); K21.9 Gastro-esophageal reflux disease without esophagitis; R06.81 Apnea, not elsewhere classified; I27.20 Pulmonary hypertension, unspecified; Z99.81 Dependence on supplemental oxygen; Z87.891 Personal history of nicotine dependence
CPT/HCPCS: 36415; 71045-TC; 80048; 80053; 82550; 82803; 82947; 82962; 83735; 83880; 84484; 85025; 85610; 85730; 93005; 93010; 94640; 94660; 97116-GP; 97161-GP; 99285-25; G0378

== ENCOUNTER 2017-07-30 10:29 | Inpatient (IN) | payer OTHER ==
[2017-07-30] MEDS ORDERED: ALBUTEROL SO4 2.5/IPRATROPIUM 0.5 INH SOL 3 ML VIAL.NEB. NEB ONE ×2 (10:36→10:51)
--- NOTE | 2017-07-30 10:36 | PDOC ---
History of Present Illness - General History Source: Patient Exam Limitations: No Limitations - History of Present Illness Initial Comments: 07/30/17 13:41 Patient is a 72 year old male with a significant past medical history of AFIB on eliquis, CHF, HTN, Hyperlipidemia, Pulmonary Hypertension, COPD, O2 Dependent , Pneumonia, Sleep Apnea, GERD, Renal Insuff, Morbidly obese who presents to the ED with complaints of chest tightness and sob that began last night. Patient reports experiencing intermittent episode of chest tightness sob and cough that began last night and was noticeably increased this morning. He reports experiencing increased SOB that began this morning, prompting him to come into the ED for further evaluation. Denies fevers, chills. Denies nausea, vomiting. Denies contact with sick individuals, out of state travelling. Denies any other symptoms. Allergies: None Social history: No smoking. No alcohol. No illicit drugs. Surgical history: Tonsillectomy PMD: Dr. Brothers <Matt Pantoja - Last Filed: 07/30/17 13:41> - General History Source: Patient Exam Limitations: No Limitations <Vance Kapadia - Last Filed: 07/30/17 17:16> - General Chief Complaint: Shortness of Breath Stated Complaint: DIFFICULTY BREATHING Time Seen by Provider: 07/30/17 10:34 Past History <Matt Pantoja - Last Filed: 07/30/17 13:41> - Past Medical History Anemia: No Asthma: Yes Cancer: No Cardiac Disorders: Yes (CAD, COARSE A.FIBRILATION, CHRONIC ISCHEMIC HEART DISEASE, CARDIOMYOPATHY) CVA: No COPD: Yes (EMPHYSEMA) CHF: Yes Dementia: No Diabetes: Yes (IDDM) GI Disorders: No Disorders: No HTN: Yes Hypercholesterolemia: Yes Liver Disease: Yes (FATTY LIVER) Seizures: No Thyroid Disease: No - Surgical History Abdominal Surgery: No Appendectomy: No Cardiac Surgery: No Cholecystectomy: No Lung Surgery: No Neurologic Surgery: No Orthopedic Surgery: Yes (bilateral knee surgery 1974 left knee 1979) - Family Disease History Family Disease History: Heart Disease: Father - Immunization History Immunization Up to Date: Yes - Suicide/Smoking/Psychosocial Hx Smoking Status: Yes (QUIT 2011) Smoking History: Former smoker Have you smoked in the past 12 months: No Number of Cigarettes Smoked Daily: 0 If you are a former smoker, when did you quit?: 6 years ago Cigars Per Day: 0 Hx Alcohol Use: No Drug/Substance Use Hx: No Substance Use Type: None Hx Substance Use Treatment: No <KangVance suazo - Last Filed: 07/30/17 17:16> - Past Medical History Allergies/Adverse Reactions: Allergies Allergy/AdvReac Type Severity Reaction Status Date / Time No Known Allergies Allergy Verified 07/30/17 11:13 Home Medications: Ambulatory Orders Apixaban [Eliquis] 5 mg PO BID 08/26/16 Verapamil HCl [Verapamil ER] 240 mg PO BID 08/26/16 Insulin (Novolog) [Novolog -] 0 units SQ AC #1 vial 04/17/17 Sitagliptin Phos/Metformin HCl [Janumet 50-1,000 mg Tablet] 1 each PO DAILY #30 tab 04/17/17 Digoxin [Lanoxin -] 0.125 mg PO DAILY tablet 07/15/17 Insulin (Levemir) [Levemir Flexpen -] 30 units SQ BID #4 syr 07/15/17 Metformin HCl [Glucophage -] 500 mg PO BID@0700,1630 tablet 07/15/17 Acetaminophen [Tylenol .Regular Strength -] 650 mg PO Q6H PRN tablet 07/26/17 Albuterol 0.083% Nebulizer Cielo [Ventolin 0.083% Nebulizer Soln -] 1 amp NEB Q4H PRN amp 07/26/17 Albuterol 2.5/Ipratropium 0.5 [Duoneb -] 1 amp NEB RQID amp 07/26/17 Atorvastatin Ca [Lipitor] 40 mg PO HS tablet 07/26/17 Budesonide/Formeterol Fumarate [SYMBICORT 160/4.5mcg -] 2 puff IH BID inhaler 07/26/17 Fluticasone Prop 0.05% Nasal [Flonase -] 2 spray NS DAILY spray 07/26/17 Furosemide [Lasix -] 40 mg PO BID #60 tablet 07/26/17 Gabapentin [Neurontin -] 300 mg PO TID capsule 07/26/17 Loratadine [Claritin -] 10 mg PO DAILY tablet 07/26/17 Pantoprazole Sodium [Protonix -] 40 mg PO DAILY tablet.ec 07/26/17 Prednisone 10 mg PO ASDIR #65 tablet 07/26/17 Sodium Chloride Nasal [place] [[place] Nasal [place] -] 2 spray NS BID PRN spray 07/26/17 Tamsulosin HCl [Flomax -] 0.4 mg PO DAILY@0830 cap.er.24h 07/26/17 Respiratory Specific PMHX - Complaint Specific PMHX Bronchitis: Yes <Vance Kapadia - Last Filed: 07/30/17 17:16> Review of Systems - Review of Systems Able to Perform ROS?: Yes Comments:: 07/30/17 13:41 CONSTITUTIONAL: No reported: Fever, Chills, Diaphoresis, Generalized Weakness, Malaise, Loss of Appetite HEENT: No reported: Rhinorrhea, Nasal Congestion, Throat Pain, Throat Swelling, Difficulty Swallowing, Mouth Swelling, Ear Pain, Eye Pain, Visual Changes CARDIOVASCULAR: +Chest tightness. No reported: Syncope, Palpitations, Irregular Heart Rate, Lightheadedness, Peripheral Edema RESPIRATORY: +SOB. Coughing. No reported: Orthopnea, Wheezing, Stridor, Hemoptysis GASTROINTESTINAL: No reported: Abdominal pain, Abdominal Distension, Nausea, Vomiting, Diarrhea, Constipation, Melena, Hematochezia GENITOURINARY: No reported: Dysuria, Frequency, Urgency, Hesitancy, Flank Pain, Genital Pain MUSCULOSKELETAL: No reported: Myalgia, Arthralgia, Joint Swelling, Back pain, Neck Pain SKIN: No reported: Rash, Itching, Pallor HEMATOLOGIC/IMMUNOLOGIC: No reported: Easy Bleeding, Easy Bruising, Lymphadenopathy, Frequent infections ENDOCRINE: No reported: Unexplained Weight Gain, Unexplained Weight Loss, Heat Intolerance , Cold Intolerance NEUROLOGIC: No reported: Headache, Focal Weakness, Paresthesias, Vertigo, Lightheadedness, Unsteady Gait, Seizure, Mental Status Changes, Incontinence PSYCHIATRIC: No reported: Anxiety, Depression All Other Systems: Reviewed and Negative <Matt Pantoja - Last Filed: 07/30/17 13:41> *Physical Exam - Vital Signs Last Vital Signs Temp Pulse Resp BP Pulse Ox 98.9 F 122 H 28 H 121/98 100 07/30/17 10:35 07/30/17 13:31 07/30/17 13:31 07/30/17 13:31 07/30/17 13:31 - Physical Exam Comments: 07/30/17 13:42 GENERAL: The patient is awake, alert, and fully oriented, Nontoxic - in no acute distress. HEAD: Normocephalic, atraumatic. EYES: extraocular movements intact, sclera anicteric, conjunctiva clear. ENT: Normal voice, Moist mucous membranes, cpap in place by EMS NECK: Normal range of motion, supple LUNGS: distant breath sounds, no rales appreciated, mild wheezing HEART: Rapid irregular, no m/r/g ABDOMEN: Soft, nontender, normoactive bowel sounds. No guarding, no rebound. . No CVA tenderness EXTREMITIES: Normal range of motion, no edema. NEUROLOGICAL: No facial assymetry, Normal speech, moving all 4 extremities sponteanously and symmetrically PSYCH: Normal mood, normal affect. SKIN: Warm, Dry, normal turgor, <Matt Pantoja - Last Filed: 07/30/17 13:41> Heart Score/ECG Review - ECG Impressions Comment:: 07/30/17 10:49 Twelve-lead EKG was performed and reviewed by me. There is irregularly irregular heart rate, rate of [address] wave abnormality <Vance Kapadia - Last Filed: 07/30/17 17:16> ED Treatment Course - LABORATORY CBC & Chemistry Diagram: 07/30/17 10:40 07/30/17 10:40 - ADDITIONAL ORDERS Additional order review: Laboratory Results 07/30/17 07/30/17 07/30/17 11:00 11:00 10:40 PT with INR INR VBG pH 7.36 POC VBG pCO2 55.3 H D POC VBG pO2 42.3 D Mixed VBG HCO3 30.7 H Sodium Potassium Chloride Carbon Dioxide Anion Gap BUN Creatinine Creat Clearance w eGFR Random Glucose Calcium Total Bilirubin AST ALT Alkaline Phosphatase Creatine Kinase Troponin I B-Natriuretic Peptide 184.13 H Total Protein Albumin Blood Type O POSITIVE Antibody Screen Negative 07/30/17 07/30/17 10:40 10:40 PT with INR 11.10 INR 0.98 VBG pH POC VBG pCO2 POC VBG pO2 Mixed VBG HCO3 Sodium 141 Potassium 4.8 D Chloride 104 Carbon Dioxide 30 Anion Gap 7 L BUN 10 D Creatinine 0.8 Creat Clearance w eGFR > 60 Random Glucose 140 H D Calcium 8.6 Total Bilirubin 0.8 AST 52 H D ALT 69 D Alkaline Phosphatase 84 Creatine Kinase 127 Troponin I 0.02 B-Natriuretic Peptide Total Protein 5.9 L Albumin 2.8 L Blood Type Antibody Screen 07/30/17 10:40 RBC 4.57 MCV 85.3 MCHC 31.2 L RDW 21.8 H MPV 8.7 Neutrophils % 84.9 H Lymphocytes % 9.2 D Monocytes % 4.6 Eosinophils % 0.6 D Basophils % 0.7 - Medications Given in the ED: ED Medications Discontinued Medications Generic Name Dose Route Start Last Admin Trade Name Spike PRN Reason Stop Dose Admin Albuterol/Ipratropium 1 amp 07/30/17 10:36 07/30/17 11:00 Duoneb - NEB 07/30/17 10:37 1 amp ONCE ONE Administration Methylprednisolone Sodium Succinate 125 mg 07/30/17 12:40 07/30/17 13:15 Solu-Medrol - IVPUSH 07/30/17 12:41 125 mg ONCE ONE Administration <Matt Pantoja - Last Filed: 07/30/17 13:41> - LABORATORY CBC & Chemistry Diagram: 07/30/17 10:40 07/30/17 10:40 <Vance Kapadia - Last Filed: 07/30/17 17:16> Medical Decision Making - Medical Decision Making 07/30/17 10:37 72y M hx of COPD/ASthma (on 2L of NC at home), CHF, IDDM, HTN, HL, Afib, CAD, presents with complaint of sob. Pt stats that since last night, he was complaining of increased sob, chest tightness. Pt endorses slightly increased cough rpoductive of beigh sputum, no increased leg swelling/pain, denies any fever/chills, zaida chest pain, abd pain, n/v, back pain. per ems, the pt was low 90s on 2L NC, with severe respiratory distress, tripoding, and was started [facility] cpap [facility] field with improvement of sats and improvement of his respiratory status. on exam pt is in mild resp distress, but is able to converse and speak in senteces. his pulm exam is relatively clear +edema in LE Cardiac exam noted for irregularly irregular HR will conitnue bipap will r/o na, influenza will ck labs, will give negs will reassess PMD: joshua 07/30/17 12:40 The patient's labs were reviewed The patient's chest x-ray noted for atelectasis versus early infiltrate, will start levaquin due to suspect copd exacerbation The patient appears after starting BiPAP Will discuss with Dr. Pathak body regarding possible observation for COPD exacerbation When the patient moves around his bed his heart rate jumps from of the lower 100s up to 135 appears to be rapid A. fib The patient took his digoxin this morning but did not take his verapamil, will give it to him now. Will admit the patient for further management was discussed with [employer] Dipin for dr. Desai who is covering for dr Garcia CRITICAL CARE DOCUMENTATION: I spent ~35 minutes of Critical Care time, excluding separately billable procedures, involving high complexity decision making to assess, manipulate and support vital system function(s) to treat single or multiple vital organ system failure and/or to prevent further life threatening deterioration of the patient' s condition. 07/30/17 17:16 <Vance Kapadia - Last Filed: 07/30/17 17:16> *DC/Admit/Observation/Transfer - Attestations Scribe Attestion: 07/30/17 13:42 Documentation prepared by Matt Pantoja, acting as medical physics researcher for Vance Kapadia MD, /DO. <Matt Pantoja - Last Filed: 07/30/17 13:41> - Discharge Dispostion Admit: Yes <Vance Kapadia - Last Filed: 07/30/17 17:16> Diagnosis at time of Disposition: Afib Qualifiers: Atrial fibrillation type: chronic Qualified Code(s): I48.2 - Chronic atrial fibrillation COPD (chronic obstructive pulmonary disease) Qualifiers: COPD type: unspecified COPD Qualified Code(s): J44.9 - Chronic obstructive pulmonary disease, unspecified - Discharge Dispostion Condition at time of disposition: Stable
[2017-07-30 11:00] LABS: BASO % 0.7 % (0-2.0); EOS % 0.6 % (0-4.5); HEMOGLOBIN 12.2 GM/dL (11.7-16.9); LYMPH % 9.2 % (8-40); MCH 26.6 pg (25.7-33.7); MCHC 31.2 g/dl (32.0-35.9); MEAN CELL VOLUME 85.3 fl (80-96); MEAN PLT VOLUME 8.7 fl (7.5-11.1); MONO % 4.6 % (3.8-10.2); NEUT % 84.9 % (42.8-82.8); PLATELET COUNT 201 K/MM3 (134-434); RBC 4.57 M/mm3 (4.00-5.60); RDW 21.8 % (11.9-15.9); WHITE BLOOD COUNT 9.3 K/mm3 (4.0-10.0)
[2017-07-30 11:09] LABS: ADD RBC MORPHOLOGY YES
[2017-07-30 11:26] LABS: INR 0.98 (0.82-1.09); PROTHROMBIN TIME (PATIENT) 11.1 SEC (9.98-11.88)
[2017-07-30 11:27] LABS: ALBUMIN 2.8 g/dl (3.4-5.0); ANION GAP 7 (8-16); BLOOD UREA NITROGEN 10 mg/dL (7-18); CALCIUM 8.6 mg/dL (8.5-10.1); CHLORIDE 104 mmol/L (98-107); CO2 30 mmol/L (21-32); CREATININE 0.8 mg/dL (0.7-1.3); GLUCOSE,RANDOM 140 mg/dL (74-106); POTASSIUM 4.8 mmol/L (3.5-5.1); SGOT/AST 52 U/L (15-37); SGPT/ALT 69 U/L (12-78); SODIUM 141 mmol/L (136-145)
[2017-07-30 11:29] LABS: ALK PHOS 84 U/L (45-117); BILIRUBIN,TOTAL 0.8 mg/dL (0.2-1.0); TOT PROT 5.9 g/dl (6.4-8.2)
[2017-07-30 11:39] LABS: VENOUS PH 7.36 (7.32-7.42)
[2017-07-30 11:40] LABS: VENOUS PC02 55.3 mmHg (38-52); VENOUS PO2 42.3 mmHg (28-48)
[2017-07-30] MEDS ORDERED: methylPREDNISolone NA SUCC 125 MG/2 ML VIAL IVPUSH ONE (12:40)
[2017-07-30] MEDS ORDERED: VERAPAMIL HCL 240 MG E.R. TABLET (FP) PO ONE (12:58)
[2017-07-30] MEDS ORDERED: methylPREDNISolone NA SUCC 125 MG/2 ML VIAL ONE (13:02)
--- NOTE | 2017-07-30 15:19 | EKG ---
Test Reason : Blood Pressure : / mmHG Vent. Rate : 109 BPM Atrial Rate : 357 BPM P-R Int : 000 ms QRS Dur : 086 ms QT Int : 308 ms P-R-T Axes : 000 043 062 degrees QTc Int : 414 ms ATRIAL FIBRILLATION WITH RAPID VENTRICULAR RESPONSE NONSPECIFIC T WAVE ABNORMALITY ABNORMAL ECG WHEN COMPARED WITH ECG OF 20-JUL-2017 14:42, NO SIGNIFICANT CHANGE WAS FOUND Confirmed by Erasmo Hung ([id number]) on 07/30/2017 3:18:53 PM Referred By: Confirmed By:Erasmo Hung
[2017-07-30] MEDS ORDERED: ACETAMINOPHEN 325 MG TABLET (FP) PO PRN (23:56)
[2017-07-30] MEDS ORDERED: ALBUTEROL SO4 0.083% IH SOL 2.5 MG/3 ML VIAL.NEB. NEB PRN (23:56)
[2017-07-30] MEDS ORDERED: SODIUM CHLORIDE NASAL SPRAY 44 ML BOTTLE NS PRN (23:56)
--- NOTE | 2017-07-31 00:09 | HP ---
Admitting History and Physical - Primary Care Physician PCP: Mars Brothers - Admission Chief Complaint: COPD exacerbation History of Present Illness: Patient is a 72 year old male with a significant past medical history of AFIB on eliquis, CHF, HTN, Hyperlipidemia, Pulmonary Hypertension, COPD, O2 Dependent , Pneumonia, Sleep Apnea, GERD, Renal Insuff, Morbidly obese who presents to the ED with complaints of chest tightness and sob that began last night. Patient reports experiencing intermittent episode of chest tightness sob and cough that began last night and was noticeably increased this morning. He reports experiencing increased SOB that began this morning, prompting him to come into the ED for further evaluation. Denies fevers, chills. Denies nausea, vomiting. Denies contact with sick individuals, out of state travelling. Denies any other symptoms. History Source: Patient Limitations to Obtaining History: No Limitations - Past Medical History Cardiovascular: Yes: AFIB, CHF, HTN, Hyperlipdemia, Pulmonary Hypertension Pulmonary: Yes: COPD, O2 Dependent, Pneumonia, Sleep Apnea. No: Cancer Gastrointestinal: Yes: GERD Renal/: Yes: Renal Inusuff Endocrine: Yes: Other (MORBIDLY OBESE) - Past Surgical History Past Surgical History: Yes: Tonsillectomy - Smoking History Smoking history: Former smoker Have you smoked in the past 12 months: No Aproximately how many cigarettes per day: 0 If you are a former smoker, when did you quit?: 6 years ago - Alcohol/Substance Use Hx Alcohol Use: No - Social History History of Recent Travel: No Home Medications - Allergies Allergies/Adverse Reactions: Allergies Allergy/AdvReac Type Severity Reaction Status Date / Time No Known Allergies Allergy Verified 07/30/17 11:13 - Home Medications Home Medications: Ambulatory Orders Apixaban [Eliquis] 5 mg PO BID 08/26/16 Verapamil HCl [Verapamil ER] 240 mg PO BID 08/26/16 Insulin (Novolog) [Novolog -] 0 units SQ AC #1 vial 04/17/17 Sitagliptin Phos/Metformin HCl [Janumet 50-1,000 mg Tablet] 1 each PO DAILY #30 tab 04/17/17 Digoxin [Lanoxin -] 0.125 mg PO DAILY tablet 07/15/17 Insulin (Levemir) [Levemir Flexpen -] 30 units SQ BID #4 syr 07/15/17 Metformin HCl [Glucophage -] 500 mg PO BID@0700,1630 tablet 07/15/17 Acetaminophen [Tylenol .Regular Strength -] 650 mg PO Q6H PRN tablet 07/26/17 Albuterol 0.083% Nebulizer Cielo [Ventolin 0.083% Nebulizer Soln -] 1 amp NEB Q4H PRN amp 07/26/17 Albuterol 2.5/Ipratropium 0.5 [Duoneb -] 1 amp NEB RQID amp 07/26/17 Atorvastatin Ca [Lipitor] 40 mg PO HS tablet 07/26/17 Budesonide/Formeterol Fumarate [SYMBICORT 160/4.5mcg -] 2 puff IH BID inhaler 07/26/17 Fluticasone Prop 0.05% Nasal [Flonase -] 2 spray NS DAILY spray 07/26/17 Furosemide [Lasix -] 40 mg PO BID #60 tablet 07/26/17 Gabapentin [Neurontin -] 300 mg PO TID capsule 07/26/17 Loratadine [Claritin -] 10 mg PO DAILY tablet 07/26/17 Pantoprazole Sodium [Protonix -] 40 mg PO DAILY tablet.ec 07/26/17 Prednisone 10 mg PO ASDIR #65 tablet 07/26/17 Sodium Chloride Nasal [place] [[place] Nasal [place] -] 2 spray NS BID PRN spray 07/26/17 Tamsulosin HCl [Flomax -] 0.4 mg PO DAILY@0830 cap.er.24h 07/26/17 Review of Systems - Review of Systems Constitutional: reports: No Symptoms Eyes: reports: No Symptoms HENT: reports: No Symptoms Neck: reports: No Symptoms Cardiovascular: reports: No Symptoms Respiratory: reports: SOB, SOB on Exertion, Wheezing Gastrointestinal: reports: No Symptoms Genitourinary: reports: No Symptoms Breasts: reports: No Symptoms Reported Musculoskeletal: reports: No Symptoms Integumentary: reports: No Symptoms Neurological: reports: No Symptoms Endocrine: reports: No Symptoms Hematology/Lymphatic: reports: No Symptoms Psychiatric: reports: No Symptoms Physical Examination Vital Signs: Vital Signs Temperature 98.9 F 07/30/17 10:35 Pulse Rate 100 H 07/30/17 20:25 Respiratory Rate 26 H 07/30/17 20:25 Blood Pressure 99/57 07/30/17 20:25 O2 Sat by Pulse Oximetry (%) 96 07/30/17 20:25 Constitutional: Yes: Well Nourished, No Distress, Calm Cardiovascular: Yes: Pulse Irregular Respiratory: Yes: Regular, On BiPap Gastrointestinal: Yes: Abdomen, Obese Musculoskeletal: Yes: WNL Extremities: Yes: WNL Neurological: Yes: Alert, Oriented Psychiatric: Yes: Alert, Oriented Labs: CBC, BMP 07/30/17 10:40 07/30/17 10:40 Imaging - Results Chest X-ray: Report Reviewed Problem List - Problems (1) Atrial fibrillation Assessment/Plan: -on AC -controlled Code(s): I48.91 - UNSPECIFIED ATRIAL FIBRILLATION Qualifiers: Atrial fibrillation type: chronic Qualified Code(s): I48.2 - Chronic atrial fibrillation (2) Acute exacerbation of chronic obstructive pulmonary disease (COPD) Assessment/Plan: -pulmonary consult -bronchodilators -nasal O2 -bipap -IV steroids -ID eval Code(s): J44.1 - CHRONIC OBSTRUCTIVE PULMONARY DISEASE W (ACUTE) EXACERBATION (3) Diabetes mellitus Assessment/Plan: -endocrinology consult -check A1c -insulin -BGM -Diabetic diet -RD consult Code(s): E11.9 - TYPE 2 DIABETES MELLITUS WITHOUT COMPLICATIONS Assessment/Plan see problem list
[2017-07-31] MEDS ORDERED: methylPREDNISolone NA SUCC 40 MG/1 ML VIAL ONE ×2 (03:18→09:10)
[2017-07-31] MEDS: methylPREDNISolone NA SUCC 40 MG/1 ML VIAL IVPUSH SCH ×3 (03:22→15:07)
[2017-07-31] MEDS ORDERED: FUROSEMIDE 40 MG TABLET (FP) ONE (06:28)
[2017-07-31] MEDS ORDERED: GABAPENTIN 100 MG CAPSULE (FP) ONE (06:28)
[2017-07-31] MEDS: GABAPENTIN 300 MG CAPSULE (FP) PO SCH ×3 (06:33→21:44)
[2017-07-31] MEDS: FUROSEMIDE 40 MG TABLET (FP) PO SCH ×2 (06:33→14:26)
[2017-07-31] MEDS ORDERED: INSULIN DETEMIR 100 UNITS/ML MDV SQ ONE (07:08)
[2017-07-31] MEDS ORDERED: INSULIN (NOVOLOG) ASPART 100 UNITS/ML 10ML VIAL ONE ×2 (07:08→13:03)
[2017-07-31] MEDS: INSULIN SLIDING SCALE (NOVOLOG) 1 VIAL SQ SCH ×3 (07:10→23:12)
[2017-07-31] MEDS: INSULIN DETEMIR 100 UNITS/ML MDV SQ SCH ×2 (07:10→23:43)
[2017-07-31] MEDS ORDERED: metFORMIN HCL 500 MG TABLET (FP) ONE (07:12)
[2017-07-31] MEDS ORDERED: sitaGLIPtin PHOSPHATE 50 MG TABLET ONE (07:12)
[2017-07-31] MEDS: sitaGLIPtin PHOSPHATE 50 MG TABLET PO SCH (07:14)
[2017-07-31] MEDS: metFORMIN HCL 500 MG TABLET (FP) PO SCH (07:14)
[2017-07-31] MEDS: TAMSULOSIN HCL 0.4 MG CAP.ER.24H (FP) PO SCH (08:51)
[2017-07-31] MEDS ORDERED: ALBUTEROL SO4 2.5/IPRATROPIUM 0.5 INH SOL 3 ML VIAL.NEB. NEB ONE (08:51)
[2017-07-31] MEDS: ALBUTEROL SO4 2.5/IPRATROPIUM 0.5 INH SOL 3 ML VIAL.NEB. NEB SCH ×4 (08:51→20:50)
[2017-07-31] MEDS ORDERED: TAMSULOSIN HCL 0.4 MG CAP.ER.24H (FP) ONE (08:51)
[2017-07-31] MEDS ORDERED: PATIENT'S OWN MEDICATION (NON-FORMULARY) (Sitagliptin Phos/Metformin Hcl [Janumet 50-1,000 PO SCH (10:00)
[2017-07-31] MEDS: APIXABAN 5 MG TABLET PO SCH ×2 (10:50→21:41)
[2017-07-31] MEDS: VERAPAMIL HCL 240 MG E.R. TABLET (FP) PO SCH ×2 (10:50→21:40)
[2017-07-31] MEDS: LORATADINE 10 MG TABLET PO SCH (10:50)
[2017-07-31] MEDS: FLUTICASONE PROP 0.05% 16 GM NASAL SPRAY NS SCH (10:50)
[2017-07-31] MEDS: PANTOPRAZOLE 40 MG TABLET (FP) PO SCH (10:51)
[2017-07-31] MEDS: BUDESONIDE/FORMETEROL FUMARATE 160/4.5 mcg INHALER IH SCH ×2 (10:51→23:44)
[2017-07-31] MEDS: DIGOXIN 0.125 MG TABLET (FP) PO SCH (10:51)
--- NOTE | 2017-07-31 12:00 | CONSULT ---
Consult - text type - Consultation Consultation Note: Cardiology (Dr. Sargent covering Dr. Lara) Patient seen and examiend in the ED CC: Dyspena and chest tightness HPI: 72 yo male Known HFpEF and AFib HTN, HPL, LUCY, CKD and obesity Multiple admission over jorden past month for COPD exacerbation od acute on chronic HFpEF Most recently discharged on 07/28/2017 At that time his weight was 319# on Lasix 40-80mg Now after one day of being home, developed severe dyspnea and chest tightness Stated that he took his medications as prescribed including the lasix VS: 107/58mmHg, P 90-105/min T 98.6 On BIPAP in ED His overall general appearance was normal for his stated age. Obese lying supine. The eyes had no xanthelasma. The neck had no jugular venous distension without masses or thyromegally. There was a normal carotid upstroke with no carotid bruits bilaterally. The mouth had no cyanosis or pallor. The respiratory and musculoskeletal systems had normal excursion and effort with no kyphosis or scoliosis and the lungs briseno were clear to auscultation bilaterally. The cardiac PMI was non displaced. The rate was irregular with normal S1 and S2. The abdomen was obese and soft without masses or tenderness. There was no organomegaly and the abdominal aorta was not enlarged by palpation. Extremities had no clubbing or cyanosis and no edema was noted. The skin had no ulcerations but (+) ecchymosis on arms, no rashes or nodules on palpation and neurologically. He was oriented to place and time and current health status. ECG: on 07/30/2017 at 10:35 AF at 109/min with non-specific ST changes. CXR with bibasilar atelecatsis Dig 0.463 Trop 0.02 BNP 184 BUN/Cr 10/0.8 Hgb 12.2, Plt 201 Impression/Plan 1) HFpEF -Recent admission weight at discharge was 319 on lasix 40-80 -Would resume Lasix 80mg as IV BID -No BB given brochospasm, not on ACEi/ARB? -Daily weights and I/Os, follow BUN/Cr and lytes 2) Afib -Reasonable rate control -Continue Verapamil 240mg BID -Dig level OK, continue current dose -Continue Apixaban 5mg BID 3) COPD -BIpap -Steroids as per pulmonary
--- NOTE | 2017-07-31 16:36 | CON.PULM ---
Consult Consult Specialty:: PULM/CCM Referred by:: TERESA Reason for Consultation:: SOB - History of Present Illness Chief Complaint: SOB History of Present Illness: 72 M, well known to me from multiple previous admissions. AFIB on eliquis, CHF , HTN, Hyperlipidemia, Pulmonary Hypertension, COPD, O2 Dependent, Pneumonia, Sleep Apnea, GERD, Renal Insuff, and Morbid obesity. Recently discharged from [facility]. Reports progressive SOB and weakness to the point he could not even wash dishes. Developed chest tightness and dry cough. No fever or chills. No hemoptysis. CXR: CHF pattern with some fluid in the fissures. - History Source History Provided By: Patient Limitations to Obtaining History: No Limitations - Past Medical History Cardio/Vascular: Yes: AFIB, CHF, HTN, Hyperlipdemia, Pulmonary Hypertension Pulmonary: Yes: COPD, O2 Dependent, Pneumonia, Sleep Apnea. No: Cancer Gastrointestinal: Yes: GERD Renal/: Yes: Renal Inusuff Endocrine: Yes: Other (MORBIDLY OBESE) - Past Surgical History Past Surgical History: Yes: Tonsillectomy - Alcohol/Substance Use Hx Alcohol Use: No - Smoking History Smoking history: Former smoker Have you smoked in the past 12 months: No Aproximately how many cigarettes per day: 0 If you are a former smoker, when did you quit?: 6 years ago - Social History Usual Living Arrangement: Other History of Recent Travel: No Home Medications - Allergies Allergies/Adverse Reactions: Allergies Allergy/AdvReac Type Severity Reaction Status Date / Time No Known Allergies Allergy Verified 07/30/17 11:13 - Home Medications Home Medications: Ambulatory Orders Apixaban [Eliquis] 5 mg PO BID 08/26/16 Verapamil HCl [Verapamil ER] 240 mg PO BID 08/26/16 Insulin (Novolog) [Novolog -] 0 units SQ AC #1 vial 04/17/17 Sitagliptin Phos/Metformin HCl [Janumet 50-1,000 mg Tablet] 1 each PO DAILY #30 tab 04/17/17 Digoxin [Lanoxin -] 0.125 mg PO DAILY tablet 07/15/17 Insulin (Levemir) [Levemir Flexpen -] 30 units SQ BID #4 syr 07/15/17 Metformin HCl [Glucophage -] 500 mg PO BID@0700,1630 tablet 07/15/17 Acetaminophen [Tylenol .Regular Strength -] 650 mg PO Q6H PRN tablet 07/26/17 Albuterol 0.083% Nebulizer Cielo [Ventolin 0.083% Nebulizer Soln -] 1 amp NEB Q4H PRN amp 07/26/17 Albuterol 2.5/Ipratropium 0.5 [Duoneb -] 1 amp NEB RQID amp 07/26/17 Atorvastatin Ca [Lipitor] 40 mg PO HS tablet 07/26/17 Budesonide/Formeterol Fumarate [SYMBICORT 160/4.5mcg -] 2 puff IH BID inhaler 07/26/17 Fluticasone Prop 0.05% Nasal [Flonase -] 2 spray NS DAILY spray 07/26/17 Furosemide [Lasix -] 40 mg PO BID #60 tablet 07/26/17 Gabapentin [Neurontin -] 300 mg PO TID capsule 07/26/17 Loratadine [Claritin -] 10 mg PO DAILY tablet 07/26/17 Pantoprazole Sodium [Protonix -] 40 mg PO DAILY tablet.ec 07/26/17 Prednisone 10 mg PO ASDIR #65 tablet 07/26/17 Sodium Chloride Nasal [place] [[place] Nasal [place] -] 2 spray NS BID PRN spray 07/26/17 Tamsulosin HCl [Flomax -] 0.4 mg PO DAILY@0830 cap.er.24h 07/26/17 Review of Systems - Review of Systems Constitutional: reports: Malaise, Weakness. denies: Chills, Fever, Loss of Appetite, Night Sweats Eyes: reports: No Symptoms HENT: reports: No Symptoms Neck: reports: No Symptoms Cardiovascular: reports: Edema, Shortness of Breath. denies: Chest Pain, Palpitations Respiratory: reports: Cough, Orthopnea, Snoring, SOB on Exertion. denies: Hemoptysis, Wheezing Gastrointestinal: reports: No Symptoms Genitourinary: reports: No Symptoms Breasts: reports: No Symptoms Reported Musculoskeletal: reports: No Symptoms Integumentary: reports: No Symptoms Neurological: reports: No Symptoms Endocrine: reports: No Symptoms Hematology/Lymphatic: reports: No Symptoms Psychiatric: reports: No Symptoms Physical Exam Vital Sings: Vital Signs Temperature 97.8 F 07/31/17 16:09 Pulse Rate 86 07/31/17 16:09 Respiratory Rate 20 07/31/17 16:09 Blood Pressure 111/57 07/31/17 16:09 O2 Sat by Pulse Oximetry (%) 96 07/31/17 16:09 Constitutional: Yes: No Distress, Obese Eyes: Yes: Conjunctiva Clear, EOM Intact HENT: Yes: Atraumatic, Normocephalic Neck: Yes: Supple, Trachea Midline Cardiovascular: Yes: Pulse Irregular Respiratory: Yes: Diminished, On Nasal O2, Rales, Rhonchi, SOB. No: Accessory Muscle Use, Stridor, Tachypnea, Wheezes ...Inspection: Yes: WNL ...Clubbing: No Gastrointestinal: Yes: Normal Bowel Sounds, Soft, Abdomen, Obese Musculoskeletal: Yes: WNL Extremities: Yes: WNL Edema: Yes Peripheral Pulses WNL: Yes Integumentary: Yes: WNL Neurological: Yes: WNL, Alert, Oriented ...Motor Strength: WNL Psychiatric: Yes: WNL, Alert, Oriented Labs: CBC, BMP 07/30/17 10:40 07/30/17 10:40 Imaging - Results Chest X-ray: Report Reviewed, Image Reviewed Assessment/Plan IMP: Acute decompensated CHF Do not have a high suspicion for infection Would minimize Steroids : will place on Prednisone taper from his last admission BD TX O2 as needed NIPPV QHS and PRN Daily weight Would monitor off ABX Will follow Thank you. Dr Emanuel
[2017-07-31] MEDS ORDERED: FUROSEMIDE 40 MG/4 ML INJECTABLE VIAL IVPUSH ONE ×2 (16:39→21:45)
--- NOTE | 2017-07-31 16:40 | CON.ID ---
Consult Consult Specialty:: infectious disease Referred by:: dahlia Reason for Consultation:: sob - History of Present Illness Chief Complaint: sob History of Present Illness: leg swelling SOB recently hsopitalized for chf/copd now with recurrent SOB +leg edema lives alone no sick contacts no fevers no chills no cough - Past Medical History Cardio/Vascular: Yes: AFIB, CHF, HTN, Hyperlipdemia, Pulmonary Hypertension Pulmonary: Yes: COPD, O2 Dependent, Pneumonia, Sleep Apnea. No: Cancer Gastrointestinal: Yes: GERD Renal/: Yes: Renal Inusuff Endocrine: Yes: Other (MORBIDLY OBESE) - Past Surgical History Past Surgical History: Yes: Tonsillectomy - Alcohol/Substance Use Hx Alcohol Use: No - Smoking History Smoking history: Former smoker Have you smoked in the past 12 months: No Aproximately how many cigarettes per day: 0 If you are a former smoker, when did you quit?: 6 years ago - Social History Usual Living Arrangement: Alone ADL: Independent Occupation: retired History of Recent Travel: No Home Medications - Allergies Allergies/Adverse Reactions: Allergies Allergy/AdvReac Type Severity Reaction Status Date / Time No Known Allergies Allergy Verified 07/30/17 11:13 - Home Medications Home Medications: Ambulatory Orders Apixaban [Eliquis] 5 mg PO BID 08/26/16 Verapamil HCl [Verapamil ER] 240 mg PO BID 08/26/16 Insulin (Novolog) [Novolog -] 0 units SQ AC #1 vial 04/17/17 Sitagliptin Phos/Metformin HCl [Janumet 50-1,000 mg Tablet] 1 each PO DAILY #30 tab 04/17/17 Digoxin [Lanoxin -] 0.125 mg PO DAILY tablet 07/15/17 Insulin (Levemir) [Levemir Flexpen -] 30 units SQ BID #4 syr 07/15/17 Metformin HCl [Glucophage -] 500 mg PO BID@0700,1630 tablet 07/15/17 Acetaminophen [Tylenol .Regular Strength -] 650 mg PO Q6H PRN tablet 07/26/17 Albuterol 0.083% Nebulizer [place] [Ventolin 0.083% Nebulizer Soln -] 1 amp NEB Q4H PRN amp 07/26/17 Albuterol 2.5/Ipratropium 0.5 [Duoneb -] 1 amp NEB RQID amp 07/26/17 Atorvastatin Ca [Lipitor] 40 mg PO HS tablet 07/26/17 Budesonide/Formeterol Fumarate [SYMBICORT 160/4.5mcg -] 2 puff IH BID inhaler 07/26/17 Fluticasone Prop 0.05% Nasal [Flonase -] 2 spray NS DAILY spray 07/26/17 Furosemide [Lasix -] 40 mg PO BID #60 tablet 07/26/17 Gabapentin [Neurontin -] 300 mg PO TID capsule 07/26/17 Loratadine [Claritin -] 10 mg PO DAILY tablet 07/26/17 Pantoprazole Sodium [Protonix -] 40 mg PO DAILY tablet.ec 07/26/17 Prednisone 10 mg PO ASDIR #65 tablet 07/26/17 Sodium Chloride Nasal [place] [[place] Nasal [place] -] 2 spray NS BID PRN spray 07/26/17 Tamsulosin HCl [Flomax -] 0.4 mg PO DAILY@0830 cap.er.24h 07/26/17 Family Disease History - Family Disease History Family History: Unremarkable Review of Systems - Review of Systems Constitutional: reports: No Symptoms. denies: Chills, Diaphoresis, Fever, Unintentional Wgt. Loss Eyes: reports: No Symptoms HENT: reports: No Symptoms. denies: Difficult Swallowing Neck: reports: No Symptoms Cardiovascular: reports: Chest Pain, Edema, Shortness of Breath Respiratory: reports: Cough. denies: Hemoptysis Gastrointestinal: reports: No Symptoms Physical Exam Vital Signs: Vital Signs Temperature 97.8 F 07/31/17 16:09 Pulse Rate 86 07/31/17 16:09 Respiratory Rate 20 07/31/17 16:09 Blood Pressure 111/57 07/31/17 16:09 O2 Sat by Pulse Oximetry (%) 96 07/31/17 16:09 Constitutional: Yes: Well Nourished, No Distress, Other (on bipap) Eyes: Yes: Conjunctiva Clear HENT: Yes: Atraumatic, Normocephalic Neck: Yes: Supple, Trachea Midline Cardiovascular: Yes: Regular Rate and Rhythm Respiratory: Yes: Regular, CTA Bilaterally Gastrointestinal: Yes: Normal Bowel Sounds, Soft ...Rectal Exam: Yes: Deferred Edema: Yes Psychiatric: Yes: Alert, Oriented Labs: CBC, BMP 07/30/17 10:40 07/30/17 10:40 Microbiology 07/30/17 13:15 Blood - Peripheral Venous Blood Culture - Preliminary NO GROWTH OBTAINED AFTER 24 HOURS, INCUBATION TO CONTINUE FOR 4 DAYS. 07/30/17 13:15 Blood - Peripheral Venous Blood Culture - Preliminary NO GROWTH OBTAINED AFTER 24 HOURS, INCUBATION TO CONTINUE FOR 4 DAYS. 07/30/17 18:46 Nasopharyngeal Swab Influenza Types A,B Antigen (LUISANA) - Final 07/30/17 18:46 Nasopharyngeal Swab - Final Imaging - Results Chest X-ray: Report Reviewed, Image Reviewed Problem List - Problems (1) COPD exacerbation Code(s): J44.1 - CHRONIC OBSTRUCTIVE PULMONARY DISEASE W (ACUTE) EXACERBATION (2) CHF exacerbation Code(s): I50.9 - HEART FAILURE, UNSPECIFIED Qualifiers: Congestive heart failure type: unspecified congestive heart failure type Qualified Code(s): I50.9 - Heart failure, unspecified Assessment/Plan copd/chf exacerbation- no signs infection no need for antibiotics at this time please call back if needed
--- NOTE | 2017-07-31 20:18 | PN ---
Progress Note, Physician - Current Medication List Current Medications: Active Medications Acetaminophen (Tylenol -) 650 mg PO Q6H PRN PRN Reason: BACK PAIN Albuterol Sulfate (Ventolin 0.083% Nebulizer Soln -) 1 amp NEB Q4H PRN PRN Reason: SHORT OF BREATH/WHEEZING Albuterol/Ipratropium (Duoneb -) 1 amp NEB RQID [facility] Last Admin: 07/31/17 16:39 Dose: 1 amp Apixaban (Eliquis -) 5 mg PO BID [facility] Last Admin: 07/31/17 10:50 Dose: 5 mg Atorvastatin Calcium (Lipitor -) 40 mg PO HS [facility] Budesonide/Formoterol Fumarate (Symbicort 160/4.5mcg -) 2 puff IH BID [facility] Last Admin: 07/31/17 10:51 Dose: 2 inh Digoxin (Lanoxin -) 0.125 mg PO DAILY [facility] Last Admin: 07/31/17 10:51 Dose: 0.125 mg Fluticasone Propionate (Flonase -) 2 spray NS DAILY [facility] Last Admin: 07/31/17 10:50 Dose: 2 spray Furosemide (Lasix Injection -) 40 mg IVPUSH BID@0600,1400 [facility] Gabapentin (Neurontin -) 300 mg PO TID [facility] Last Admin: 07/31/17 14:26 Dose: 300 mg Insulin Aspart (Novolog Vial Sliding Scale -) 1 vial SQ TIDAC [facility] PRN Reason: Protocol Last Admin: 07/31/17 13:12 Dose: 9 units Insulin Detemir (Levemir Vial) 30 units SQ BID@0700,2200 [facility] Last Admin: 07/31/17 07:10 Dose: 30 units Loratadine (Claritin -) 10 mg PO DAILY [facility] Last Admin: 07/31/17 10:50 Dose: 10 mg Metformin HCl (Glucophage -) 1,000 mg PO DAILY@0700 [facility] Last Admin: 07/31/17 07:14 Dose: 1,000 mg Pantoprazole Sodium (Protonix -) 40 mg PO DAILY [facility] Last Admin: 07/31/17 10:51 Dose: 40 mg Prednisone (Deltasone -) 40 mg PO DAILY [facility] Sitagliptin Phosphate (Januvia -) 50 mg PO DAILY@0700 [facility] Last Admin: 07/31/17 07:14 Dose: 50 mg Sodium Chloride ([place] Nasal [place] -) 2 spray NS BID PRN PRN Reason: NASAL CONGESTION Tamsulosin HCl (Flomax -) 0.4 mg PO DAILY@0830 [facility] Last Admin: 07/31/17 08:51 Dose: 0.4 mg Verapamil HCl (Calan Sr -) 240 mg PO BID [facility] Last Admin: 07/31/17 10:50 Dose: 240 mg - Objective Vital Signs: Vital Signs Temperature 97.8 F 07/31/17 16:09 Pulse Rate 86 07/31/17 16:09 Respiratory Rate 20 07/31/17 16:09 Blood Pressure 111/57 07/31/17 16:09 O2 Sat by Pulse Oximetry (%) 95 07/31/17 18:30 Labs: CBC, BMP 07/30/17 10:40 07/30/17 10:40 INR, PTT INR 0.98 (0.82-1.09) 07/30/17 10:40 Problem List - Problems (1) Atrial fibrillation Assessment/Plan: -Continue Verapamil 240mg BID -Dig level OK, continue current dose -Continue Apixaban 5mg BID Code(s): I48.91 - UNSPECIFIED ATRIAL FIBRILLATION Qualifiers: Atrial fibrillation type: chronic Qualified Code(s): I48.2 - Chronic atrial fibrillation (2) Acute chronic obstructive pulmonary disease with respiratory distress Code(s): J44.9 - CHRONIC OBSTRUCTIVE PULMONARY DISEASE, UNSPECIFIED; R06.03 - ACUTE RESPIRATORY DISTRESS (3) Acute exacerbation of chronic obstructive pulmonary disease (COPD) Assessment/Plan: -pulmonary consult -bronchodilators -nasal O2 -bipap -IV steroids -ID eval Code(s): J44.1 - CHRONIC OBSTRUCTIVE PULMONARY DISEASE W (ACUTE) EXACERBATION (4) CHF exacerbation Assessment/Plan: IV LASIX MONITOR LYTES CXR CARDIOLOGY Code(s): I50.9 - HEART FAILURE, UNSPECIFIED Qualifiers: Congestive heart failure type: unspecified congestive heart failure type
[2017-07-31] MEDS: ATORVASTATIN CA 40 MG TABLET (FP) PO SCH (21:43)
[2017-07-31] MEDS ORDERED: HEMOQUE TEST 1 EACH EACH ONE (23:25)
[2017-08-01] MEDS ORDERED: FUROSEMIDE 40 MG/4 ML INJECTABLE VIAL IVPUSH SCH ×2 (06:00→11:16)
[2017-08-01] MEDS: GABAPENTIN 300 MG CAPSULE (FP) PO SCH ×3 (06:00→21:54)
[2017-08-01] MEDS: metFORMIN HCL 500 MG TABLET (FP) PO SCH (06:01)
[2017-08-01] MEDS: sitaGLIPtin PHOSPHATE 50 MG TABLET PO SCH (06:04)
[2017-08-01] MEDS: INSULIN SLIDING SCALE (NOVOLOG) 1 VIAL SQ SCH ×4 (06:14→22:43)
[2017-08-01] MEDS: INSULIN DETEMIR 100 UNITS/ML MDV SQ SCH ×2 (06:15→22:42)
[2017-08-01 06:25] LABS: HEMOGLOBIN 10.7 GM/dL (11.7-16.9); MCH 26.7 pg (25.7-33.7); MCHC 31.4 g/dl (32.0-35.9); MEAN CELL VOLUME 85.1 fl (80-96); MEAN PLT VOLUME 8.2 fl (7.5-11.1); PLATELET COUNT 220 K/MM3 (134-434); WHITE BLOOD COUNT 9.1 K/mm3 (4.0-10.0)
[2017-08-01 06:58] LABS: CHLORIDE 104 mmol/L (98-107); POTASSIUM 4.3 mmol/L (3.5-5.1); SODIUM 140 mmol/L (136-145)
[2017-08-01 07:06] LABS: ALBUMIN 2.6 g/dl (3.4-5.0); ALK PHOS 81 U/L (45-117); ANION GAP 7 (8-16); BILIRUBIN,TOTAL 0.6 mg/dL (0.2-1.0); BLOOD UREA NITROGEN 19 mg/dL (7-18); CALCIUM 8.3 mg/dL (8.5-10.1); CO2 29 mmol/L (21-32); CREATININE 0.7 mg/dL (0.7-1.3); MAGNESIUM 1.9 mg/dL (1.8-2.4); SGOT/AST 31 U/L (15-37); SGPT/ALT 63 U/L (12-78); TOT PROT 5.3 g/dl (6.4-8.2)
[2017-08-01 07:28] LABS: GLUCOSE,RANDOM 315 mg/dL (74-106)
--- NOTE | 2017-08-01 08:14 | PN ---
Progress Note, Physician Chief Complaint: sob History of Present Illness: sob improved, has cpap mask on. says his wheezing was minimal after left hospital, then increased on DOA. was taking lasix 40 qd at home, some days 60 qd prn incr edema. clarifies that he had no cp/pressure/heaviness, only sensation in chest if coughing no palpitations + ex-cigs - Current Medication List Current Medications: Active Medications Acetaminophen (Tylenol -) 650 mg PO Q6H PRN PRN Reason: BACK PAIN Albuterol Sulfate (Ventolin 0.083% Nebulizer Soln -) 1 amp NEB Q4H PRN PRN Reason: SHORT OF BREATH/WHEEZING Albuterol/Ipratropium (Duoneb -) 1 amp NEB RQID [facility] Last Admin: 07/31/17 20:50 Dose: 1 amp Apixaban (Eliquis -) 5 mg PO BID [facility] Last Admin: 07/31/17 21:41 Dose: 5 mg Atorvastatin Calcium (Lipitor -) 40 mg PO HS [facility] Last Admin: 07/31/17 21:43 Dose: 40 mg Budesonide/Formoterol Fumarate (Symbicort 160/4.5mcg -) 2 puff IH BID [facility] Last Admin: 07/31/17 23:44 Dose: 2 inh Digoxin (Lanoxin -) 0.125 mg PO DAILY [facility] Last Admin: 07/31/17 10:51 Dose: 0.125 mg Fluticasone Propionate (Flonase -) 2 spray NS DAILY [facility] Last Admin: 07/31/17 10:50 Dose: 2 spray Furosemide (Lasix Injection -) 40 mg IVPUSH BID@0600,1400 [facility] Last Admin: 08/01/17 05:54 Dose: 40 mg Gabapentin (Neurontin -) 300 mg PO TID [facility] Last Admin: 08/01/17 06:00 Dose: 300 mg Insulin Aspart (Novolog Vial Sliding Scale -) 1 vial SQ ACHS [facility] PRN Reason: Protocol Last Admin: 08/01/17 06:14 Dose: 12 units Insulin Detemir (Levemir Vial) 30 units SQ BID@0700,2200 [facility] Last Admin: 08/01/17 06:15 Dose: 30 units Loratadine (Claritin -) 10 mg PO DAILY [facility] Last Admin: 07/31/17 10:50 Dose: 10 mg Metformin HCl (Glucophage -) 1,000 mg PO DAILY@0700 [facility] Last Admin: 08/01/17 06:01 Dose: 1,000 mg Pantoprazole Sodium (Protonix -) 40 mg PO DAILY [facility] Last Admin: 07/31/17 10:51 Dose: 40 mg Prednisone (Deltasone -) 40 mg PO DAILY [facility] Sitagliptin Phosphate (Januvia -) 50 mg PO DAILY@0700 [facility] Last Admin: 08/01/17 06:04 Dose: 50 mg Sodium Chloride ([place] Nasal [place] -) 2 spray NS BID PRN PRN Reason: NASAL CONGESTION Tamsulosin HCl (Flomax -) 0.4 mg PO DAILY@0830 [facility] Last Admin: 07/31/17 08:51 Dose: 0.4 mg Verapamil HCl (Calan Sr -) 240 mg PO BID [facility] Last Admin: 07/31/17 21:40 Dose: 240 mg - Objective Vital Signs: Vital Signs Temperature 97.5 F L 08/01/17 02:00 Pulse Rate 86 08/01/17 02:00 Respiratory Rate 24 08/01/17 02:00 Blood Pressure 111/69 08/01/17 02:00 O2 Sat by Pulse Oximetry (%) 96 08/01/17 07:30 Constitutional: Yes: No Distress, Calm, Obese Eyes: No: Sclera Icterus HENT: No: Nasal Congestion Cardiovascular: Yes: Pulse Irregular (soft heart sounds), S1, S2, Other (PMI non diplaced). No: JVD (very tds habitus plus bipap mask), Gallop, Murmur Respiratory: Yes: CTA Bilaterally, Rhonchi, Wheezes. No: Accessory Muscle Use, Rales Gastrointestinal: Yes: Normal Bowel Sounds, Soft. No: Tenderness Musculoskeletal: Yes: Other (No kyphosis) Extremities: No: Cold Edema: Yes (3+ feet, 1+ pretib) Integumentary: No: Jaundice Neurological: Yes: Alert, Oriented (x3) Psychiatric: No: Agitated Labs: CBC, BMP 08/01/17 05:35 08/01/17 05:35 INR, PTT INR 0.98 (0.82-1.09) 07/30/17 10:40 - ....Imaging EKG: Other (tele: afib HRs 90s-140s) Assessment/Plan echo 07/2016: Nl lv/rv. 1+ AR mibi 12/2012: small posterior ischemia vs artifact, nl lvef, no tid cxr: incr markings at bases c/w atx vs early infiltrate a/p: 72 yo male with h/o AFib s/p prior DCCV 12/2015 to SR on AC, HTN, HL, dchf , PVCs with palpitations, morbid obesity, LUCY on bipap, severe COPD, here with sob. a.e. copd: - copd/lucy tx per pulm acute on chronic diastolic chf: - previous admits, wt up to 340s-350s when decomp chf, with signif incr LE edema - d/c wt 04/26 was 324. was 315 when left here 07/28, then back up to 327 when back with a.e. copd 07/28. - 07/28 copd admit with marked pedal edema treated with lasix 80 iv bid--d/c wt 314. sent out on lasix 40 po bid. - no standing weight done here (ordered today) - marked weakness with activity at home, cxr with fluid in fissure, ? effusions on image review--pulmonary team does not suspect a.e. copd or PNA - BNP 180 (prior range 90-300). - phys exam prohibitively TDS for volume assessment, and cannot get standing wts until pt moves from ICU to tele bed. - incr lasix to 80 iv bid, monitor daily labs. consider CT chest if not improving, or becomes prerenal rapidly. - he resists taking lasix bid at home due to freq urinating. should go home on 80 qd this time paroxysmal AF/flutter -cont eliquis for AC -new dx 2015--req'd amio for HR control then (now off due to severe lung dz), s/ p successful DCCV 12/24, then reverted to afib -rate typically becomes elevated in settings of respiratory distress (felicia when verapamil inadvertently given only daily in hospital, instead of bid home dose) -HR currently very variable, 90s-140s at times. - con't verapamil 240 bid, dig (level good here). monitor tele -defer AVN ablation/PPM unless future signs of HF being driven by rapid HRs (to date thus far, his AF rates are well-controlled at office, and only rapid sec to acute copd). -avoiding BB given severe bronchospasm/copd; would like to avoid long-term amio for same reason hld: -continue home statin htn: -stable on current meds possible cad: -pt had borderline positive mibi in 2012 vs soft tissue attenuation artifact -never had angina sx's -ECG nonsp ST-T no signif change vs prior. trop neg x2. no anginal sx's -continue medical management with statin, AC without ASA
[2017-08-01] MEDS: ALBUTEROL SO4 2.5/IPRATROPIUM 0.5 INH SOL 3 ML VIAL.NEB. NEB SCH ×4 (08:15→20:50)
[2017-08-01] MEDS: VERAPAMIL HCL 240 MG E.R. TABLET (FP) PO SCH ×2 (09:28→21:53)
[2017-08-01] MEDS: APIXABAN 5 MG TABLET PO SCH ×2 (09:28→21:53)
[2017-08-01] MEDS: DIGOXIN 0.125 MG TABLET (FP) PO SCH (09:32)
[2017-08-01] MEDS: PANTOPRAZOLE 40 MG TABLET (FP) PO SCH (09:32)
[2017-08-01] MEDS: TAMSULOSIN HCL 0.4 MG CAP.ER.24H (FP) PO SCH (09:32)
[2017-08-01] MEDS: FLUTICASONE PROP 0.05% 16 GM NASAL SPRAY NS SCH (09:32)
[2017-08-01] MEDS: LORATADINE 10 MG TABLET PO SCH (09:32)
[2017-08-01] MEDS: BUDESONIDE/FORMETEROL FUMARATE 160/4.5 mcg INHALER IH SCH ×2 (09:33→21:54)
[2017-08-01] MEDS ORDERED: predniSONE 20 MG TABLET (UD) PO SCH (10:00)
--- NOTE | 2017-08-01 11:23 | PN ---
Progress Note, Physician Chief Complaint: awake alert on bipap mask breathing in better no CP - Current Medication List Current Medications: Active Medications Acetaminophen (Tylenol -) 650 mg PO Q6H PRN PRN Reason: BACK PAIN Albuterol Sulfate (Ventolin 0.083% Nebulizer Soln -) 1 amp NEB Q4H PRN PRN Reason: SHORT OF BREATH/WHEEZING Albuterol/Ipratropium (Duoneb -) 1 amp NEB RQID [facility] Last Admin: 08/01/17 08:15 Dose: 1 amp Apixaban (Eliquis -) 5 mg PO BID [facility] Last Admin: 08/01/17 09:28 Dose: 5 mg Atorvastatin Calcium (Lipitor -) 40 mg PO HS [facility] Last Admin: 07/31/17 21:43 Dose: 40 mg Budesonide/Formoterol Fumarate (Symbicort 160/4.5mcg -) 2 puff IH BID [facility] Last Admin: 08/01/17 09:33 Dose: 2 inh Digoxin (Lanoxin -) 0.125 mg PO DAILY [facility] Last Admin: 08/01/17 09:32 Dose: 0.125 mg Fluticasone Propionate (Flonase -) 2 spray NS DAILY [facility] Last Admin: 08/01/17 09:32 Dose: 2 spray Furosemide (Lasix Injection -) 80 mg IVPUSH BID@0600,1400 [facility] Gabapentin (Neurontin -) 300 mg PO TID [facility] Last Admin: 08/01/17 06:00 Dose: 300 mg Insulin Aspart (Novolog Vial Sliding Scale -) 1 vial SQ ACHS [facility] PRN Reason: Protocol Last Admin: 08/01/17 06:14 Dose: 12 units Insulin Detemir (Levemir Vial) 30 units SQ BID@0700,2200 [facility] Last Admin: 08/01/17 06:15 Dose: 30 units Loratadine (Claritin -) 10 mg PO DAILY [facility] Last Admin: 08/01/17 09:32 Dose: 10 mg Metformin HCl (Glucophage -) 1,000 mg PO DAILY@0700 [facility] Last Admin: 08/01/17 06:01 Dose: 1,000 mg Pantoprazole Sodium (Protonix -) 40 mg PO DAILY [facility] Last Admin: 08/01/17 09:32 Dose: 40 mg Prednisone (Deltasone -) 40 mg PO DAILY [facility] Last Admin: 08/01/17 09:35 Dose: 40 mg Sitagliptin Phosphate (Januvia -) 50 mg PO DAILY@0700 [facility] Last Admin: 08/01/17 06:04 Dose: 50 mg Sodium Chloride ([place] Nasal [place] -) 2 spray NS BID PRN PRN Reason: NASAL CONGESTION Tamsulosin HCl (Flomax -) 0.4 mg PO DAILY@0830 [facility] Last Admin: 08/01/17 09:32 Dose: 0.4 mg Verapamil HCl (Calan Sr -) 240 mg PO BID [facility] Last Admin: 08/01/17 09:28 Dose: 240 mg - Objective Vital Signs: Vital Signs Temperature 98 F 08/01/17 08:00 Pulse Rate 108 H 08/01/17 09:32 Respiratory Rate 22 08/01/17 08:00 Blood Pressure 122/78 08/01/17 08:00 O2 Sat by Pulse Oximetry (%) 98 08/01/17 08:55 Constitutional: Yes: Calm Neck: Yes: Trachea Midline Cardiovascular: Yes: Pulse Irregular, S1, S2 Respiratory: Yes: CTA Bilaterally, On BiPap Gastrointestinal: Yes: Normal Bowel Sounds, Soft Edema: Yes Neurological: Yes: Alert, Oriented Labs: CBC, BMP 08/01/17 05:35 08/01/17 05:35 INR, PTT INR 0.98 (0.82-1.09) 07/30/17 10:40 Problem List - Problems (1) Atrial fibrillation Assessment/Plan: eliquis BID dig and verampamil Code(s): I48.91 - UNSPECIFIED ATRIAL FIBRILLATION Qualifiers: Atrial fibrillation type: chronic Qualified Code(s): I48.2 - Chronic atrial fibrillation (2) COPD (chronic obstructive pulmonary disease) Assessment/Plan: prednsione taper bronchodilators bipap Code(s): J44.9 - CHRONIC OBSTRUCTIVE PULMONARY DISEASE, UNSPECIFIED Qualifiers: COPD type: unspecified COPD Qualified Code(s): J44.9 - Chronic obstructive pulmonary disease, unspecified (3) Diabetes mellitus Assessment/Plan: bgm hgba1c noted metofrmin and januvia levemir prednisone taper Code(s): E11.9 - TYPE 2 DIABETES MELLITUS WITHOUT COMPLICATIONS Qualifiers: Diabetes mellitus type: type 2
[2017-08-01] MEDS: FUROSEMIDE 40 MG/4 ML INJECTABLE VIAL IVPUSH SCH ×2 (13:13→17:20)
--- NOTE | 2017-08-01 14:46 | PN ---
Progress Note (short form) - Note Progress Note: Patient seen and examined in the Telemetry unit. Remains tachypneic at rest, but better than yesterday. Used NIPPV overnight. Some dry cough. Intake & Output 07/29/17 07/30/17 07/31/17 08/01/17 23:59 23:59 23:59 23:59 Intake Total 240 Output Total 800 800 Balance -800 -560 Weight 240 lb 324 lb 6 oz Last Vital Signs Temp Pulse Resp BP Pulse Ox 98 F 108 H 20 136/78 96 08/01/17 08:00 08/01/17 12:05 08/01/17 12:05 08/01/17 12:05 08/01/17 13:50 Active Medications Acetaminophen (Tylenol -) 650 mg PO Q6H PRN PRN Reason: BACK PAIN Albuterol Sulfate (Ventolin 0.083% Nebulizer Soln -) 1 amp NEB Q4H PRN PRN Reason: SHORT OF BREATH/WHEEZING Albuterol/Ipratropium (Duoneb -) 1 amp NEB RQID [facility] Last Admin: 08/01/17 11:35 Dose: 1 amp Apixaban (Eliquis -) 5 mg PO BID [facility] Last Admin: 08/01/17 09:28 Dose: 5 mg Atorvastatin Calcium (Lipitor -) 40 mg PO HS [facility] Last Admin: 07/31/17 21:43 Dose: 40 mg Budesonide/Formoterol Fumarate (Symbicort 160/4.5mcg -) 2 puff IH BID [facility] Last Admin: 08/01/17 09:33 Dose: 2 inh Digoxin (Lanoxin -) 0.125 mg PO DAILY [facility] Last Admin: 08/01/17 09:32 Dose: 0.125 mg Fluticasone Propionate (Flonase -) 2 spray NS DAILY [facility] Last Admin: 08/01/17 09:32 Dose: 2 spray Furosemide (Lasix Injection -) 80 mg IVPUSH BID@0600,1400 [facility] Last Admin: 08/01/17 13:13 Dose: 80 mg Gabapentin (Neurontin -) 300 mg PO TID [facility] Last Admin: 08/01/17 13:14 Dose: 300 mg Insulin Aspart (Novolog Vial Sliding Scale -) 1 vial SQ ACHS [facility] PRN Reason: Protocol Last Admin: 08/01/17 12:17 Dose: 6 units Insulin Detemir (Levemir Vial) 30 units SQ BID@0700,2200 [facility] Last Admin: 08/01/17 06:15 Dose: 30 units Loratadine (Claritin -) 10 mg PO DAILY [facility] Last Admin: 08/01/17 09:32 Dose: 10 mg Metformin HCl (Glucophage -) 1,000 mg PO DAILY@0700 [facility] Last Admin: 08/01/17 06:01 Dose: 1,000 mg Pantoprazole Sodium (Protonix -) 40 mg PO DAILY [facility] Last Admin: 08/01/17 09:32 Dose: 40 mg Prednisone (Deltasone -) 40 mg PO DAILY [facility] Last Admin: 08/01/17 09:35 Dose: 40 mg Sitagliptin Phosphate (Januvia -) 50 mg PO DAILY@0700 [facility] Last Admin: 08/01/17 06:04 Dose: 50 mg Sodium Chloride ([place] Nasal [place] -) 2 spray NS BID PRN PRN Reason: NASAL CONGESTION Tamsulosin HCl (Flomax -) 0.4 mg PO DAILY@0830 [facility] Last Admin: 08/01/17 09:32 Dose: 0.4 mg Verapamil HCl (Calan Sr -) 240 mg PO BID [facility] Last Admin: 08/01/17 09:28 Dose: 240 mg Constitutional: Yes: Awake and alert, mildly tachypneic at rest, Obese Eyes: Yes: Conjunctiva Clear, EOM Intact HENT: Yes: Atraumatic, Normocephalic Neck: Yes: Supple, Trachea Midline Cardiovascular: Yes: Pulse Irregular Respiratory: Yes: Diminished, On Nasal O2, Rales, Rhonchi, SOB. No: Accessory Muscle Use, Stridor, Tachypnea, Wheezes ...Inspection: Yes: WNL ...Clubbing: No Gastrointestinal: Yes: Normal Bowel Sounds, Soft, Abdomen, Obese Musculoskeletal: Yes: WNL Extremities: Yes: WNL Edema: Yes Peripheral Pulses WNL: Yes Integumentary: Yes: WNL Neurological: Yes: WNL, Alert, Oriented ...Motor Strength: WNL Psychiatric: Yes: WNL, Alert, Oriented Labs: Laboratory Results - last 24 hr 08/01/17 08/01/17 08/01/17 05:35 05:35 05:35 WBC 9.1 RBC 4.00 Hgb 10.7 L D Hct 34.0 L MCV 85.1 MCH 26.7 MCHC 31.4 L RDW 21.0 H Plt Count 220 MPV 8.2 Sodium 140 Potassium 4.3 Chloride 104 Carbon Dioxide 29 Anion Gap 7 L BUN 19 H D Creatinine 0.7 Creat Clearance w eGFR > 60 Random Glucose 315 H* D Hemoglobin A1c % 11.1 H D Calcium 8.3 L Magnesium 1.9 Total Bilirubin 0.6 D AST 31 D ALT 63 Alkaline Phosphatase 81 Creatine Kinase Troponin I Total Protein 5.3 L Albumin 2.6 L 08/01/17 09:45 WBC RBC Hgb Hct MCV MCH MCHC RDW Plt Count MPV Sodium Potassium Chloride Carbon Dioxide Anion Gap BUN Creatinine Creat Clearance w eGFR Random Glucose Hemoglobin A1c % Calcium Magnesium Total Bilirubin AST ALT Alkaline Phosphatase Creatine Kinase 58 Troponin I < 0.02 Total Protein Albumin Assessment/Plan Acute decompensated CHF Do not have a high suspicion for infection Prednisone taper BD TX O2 as needed NIPPV QHS and PRN Daily weight Continue to monitor off ABX Dr Emanuel
--- NOTE | 2017-08-01 18:39 | CON.PSY ---
Psychiatry Consult Chief Complaint: I dont need to see you, I dont havec any psych problems. I take my medications. I get sick. Symptoms: reports: Conduct Problems, Oppositionalism - Previous Psychiatric Treatment Outpatient: None Inpatient: None - Previous Substance Abuse Treatment Outpatient: None Inpatient: None - Current Medications Current Medications: Active Medications Acetaminophen (Tylenol -) 650 mg PO Q6H PRN PRN Reason: BACK PAIN Albuterol Sulfate (Ventolin 0.083% Nebulizer Soln -) 1 amp NEB Q4H PRN PRN Reason: SHORT OF BREATH/WHEEZING Albuterol/Ipratropium (Duoneb -) 1 amp NEB RQID [facility] Last Admin: 08/01/17 15:57 Dose: 1 amp Apixaban (Eliquis -) 5 mg PO BID [facility] Last Admin: 08/01/17 09:28 Dose: 5 mg Atorvastatin Calcium (Lipitor -) 40 mg PO HS [facility] Last Admin: 07/31/17 21:43 Dose: 40 mg Budesonide/Formoterol Fumarate (Symbicort 160/4.5mcg -) 2 puff IH BID [facility] Last Admin: 08/01/17 09:33 Dose: 2 inh Digoxin (Lanoxin -) 0.125 mg PO DAILY [facility] Last Admin: 08/01/17 09:32 Dose: 0.125 mg Fluticasone Propionate (Flonase -) 2 spray NS DAILY [facility] Last Admin: 08/01/17 09:32 Dose: 2 spray Furosemide (Lasix Injection -) 80 mg IVPUSH BID@0600,1400 [facility] Last Admin: 08/01/17 17:20 Dose: 80 mg Gabapentin (Neurontin -) 300 mg PO TID [facility] Last Admin: 08/01/17 13:14 Dose: 300 mg Insulin Aspart (Novolog Vial Sliding Scale -) 1 vial SQ ACHS [facility] PRN Reason: Protocol Last Admin: 08/01/17 17:21 Dose: 12 units Insulin Detemir (Levemir Vial) 30 units SQ BID@0700,2200 [facility] Last Admin: 08/01/17 06:15 Dose: 30 units Loratadine (Claritin -) 10 mg PO DAILY [facility] Last Admin: 08/01/17 09:32 Dose: 10 mg Metformin HCl (Glucophage -) 1,000 mg PO DAILY@0700 [facility] Last Admin: 08/01/17 06:01 Dose: 1,000 mg Pantoprazole Sodium (Protonix -) 40 mg PO DAILY [facility] Last Admin: 08/01/17 09:32 Dose: 40 mg Prednisone (Deltasone -) 40 mg PO DAILY [facility] Last Admin: 08/01/17 09:35 Dose: 40 mg Sitagliptin Phosphate (Januvia -) 50 mg PO DAILY@0700 [facility] Last Admin: 08/01/17 06:04 Dose: 50 mg Sodium Chloride ([place] Nasal [place] -) 2 spray NS BID PRN PRN Reason: NASAL CONGESTION Tamsulosin HCl (Flomax -) 0.4 mg PO DAILY@0830 [facility] Last Admin: 08/01/17 09:32 Dose: 0.4 mg Verapamil HCl (Calan Sr -) 240 mg PO BID [facility] Last Admin: 08/01/17 09:28 Dose: 240 mg - Allergies Allergies: Allergies Allergy/AdvReac Type Severity Reaction Status Date / Time No Known Allergies Allergy Verified 07/30/17 11:13 - Current Living Status Usual Living Arrangement: With Spouse - Current Mental Status Evaluation Appearance: Well Groomed Attitude: Cooperative - Affect Affect: Full Range Appropriateness: Appropriate to Content - Mood Mood: Irritable - Speech/Language Expressive: Coherent - Psychomotor Activity Psychomotor Activity: Normal - Thought Process Thought Process: Intact - Thought Content Hallucinations: Absent Delusions: Absent - Self Perception Self Perception: No Impairment - Cognition Attention: Alert Orientation: Time Memory, Immediate Recall: Intact Memory, Short Term: 3/3 Memory, Remote with Promptin/3 - Concentration Serial Sevens Intact: No Simple Calculations Intact: No - Abstraction Proverb Interpretation: Intact Judgement: Minimally Impaired - Insight Insight: Intact - Impulse Control Impulse Control: Minimally Impaired - Suicidal Ideation Suicidal Ideation: No - Homicidal Ideation Homicidal Ideation: No Assessment/Plan 1) Patient has the mental capacity. 2) No nneed for any psych meds.
--- NOTE | 2017-08-01 19:05 | CON.PSL ---
Psychology Consult Consult Specialty:: Clinical Psychology Referred by:: Dr. Brothers History Provided By: Patient Limitations to Obtaining History: No Limitations Current Medications: Active Medications Acetaminophen (Tylenol -) 650 mg PO Q6H PRN PRN Reason: BACK PAIN Albuterol Sulfate (Ventolin 0.083% Nebulizer Soln -) 1 amp NEB Q4H PRN PRN Reason: SHORT OF BREATH/WHEEZING Albuterol/Ipratropium (Duoneb -) 1 amp NEB RQID [facility] Last Admin: 08/01/17 15:57 Dose: 1 amp Apixaban (Eliquis -) 5 mg PO BID [facility] Last Admin: 08/01/17 09:28 Dose: 5 mg Atorvastatin Calcium (Lipitor -) 40 mg PO HS [facility] Last Admin: 07/31/17 21:43 Dose: 40 mg Budesonide/Formoterol Fumarate (Symbicort 160/4.5mcg -) 2 puff IH BID [facility] Last Admin: 08/01/17 09:33 Dose: 2 inh Digoxin (Lanoxin -) 0.125 mg PO DAILY [facility] Last Admin: 08/01/17 09:32 Dose: 0.125 mg Fluticasone Propionate (Flonase -) 2 spray NS DAILY [facility] Last Admin: 08/01/17 09:32 Dose: 2 spray Furosemide (Lasix Injection -) 80 mg IVPUSH BID@0600,1400 [facility] Last Admin: 08/01/17 17:20 Dose: 80 mg Gabapentin (Neurontin -) 300 mg PO TID [facility] Last Admin: 08/01/17 13:14 Dose: 300 mg Insulin Aspart (Novolog Vial Sliding Scale -) 1 vial SQ ACHS [facility] PRN Reason: Protocol Last Admin: 08/01/17 17:21 Dose: 12 units Insulin Detemir (Levemir Vial) 30 units SQ BID@0700,2200 [facility] Last Admin: 08/01/17 06:15 Dose: 30 units Loratadine (Claritin -) 10 mg PO DAILY [facility] Last Admin: 08/01/17 09:32 Dose: 10 mg Metformin HCl (Glucophage -) 1,000 mg PO DAILY@0700 [facility] Last Admin: 08/01/17 06:01 Dose: 1,000 mg Pantoprazole Sodium (Protonix -) 40 mg PO DAILY [facility] Last Admin: 08/01/17 09:32 Dose: 40 mg Prednisone (Deltasone -) 40 mg PO DAILY [facility] Last Admin: 08/01/17 09:35 Dose: 40 mg Sitagliptin Phosphate (Januvia -) 50 mg PO DAILY@0700 [facility] Last Admin: 08/01/17 06:04 Dose: 50 mg Sodium Chloride ([place] Nasal [place] -) 2 spray NS BID PRN PRN Reason: NASAL CONGESTION Tamsulosin HCl (Flomax -) 0.4 mg PO DAILY@0830 [facility] Last Admin: 08/01/17 09:32 Dose: 0.4 mg Verapamil HCl (Calan Sr -) 240 mg PO BID [facility] Last Admin: 08/01/17 09:28 Dose: 240 mg Allergies: Allergies Allergy/AdvReac Type Severity Reaction Status Date / Time No Known Allergies Allergy Verified 07/30/17 11:13 Does patient have pain?: Yes (R Shoulder Arthritis) Pain Location Body Site: Shoulder Pain Description: Chronic, Non-Descriptive Hx Alcohol Use: No Hx Substance Use: No Substance Use Type: None Hx Substance Use Treatment: Yes (Used to drink and use marijuana and cocaine.) Current Medical Exam-Psy Attention: Alert, Diminished, Other Orientation: Time, Person, Place Immediate Term Memory: 09/10 Expressive: Coherent Receptive: Age Appropriate Comprehension of Spoken Words Hallucinations: Absent Thought Process: Intact Depression: None Hopelessness: Yes (Mild; not chronic.) Loss of Interest: No Danger to Self and Others: No Sleep: Fair (He denies anxiety.Sleep is interrupted by need to urinate. He is able to return to sleep and states he in sum gets 6 hours of sleep.) Appetite: Good (The patient is obese and could benefit from nutritional consult once discharged. Would Bariatric Surgery be a consideration?) Serial Sevens Intact: Yes Repeats 3 words told earlier: 07/13 Support System: Friend Leisure activities: Watch movies/TV Problem List - Problem (1) Other specified eating disorder Code(s): F50.89 - OTHER SPECIFIED EATING DISORDER Assessment/Plan The patient also stated that he has two adult children but since splitting from his , they also turned against him. The patient responded to my question as to his compliance with doctor's recommendations. He indicated that he now does comply. The patient is obese, perhaps morbidly. Therefore, he would benefit from ongoing nutritional support and perhaps a consult for Bariatric Surgery. Thank you for the consult.
[2017-08-01 20:02] VITALS: BMI 45.6
[2017-08-01] MEDS ORDERED: PT OWN MED DRAWER 7, Y5N ONE (20:13)
[2017-08-01] MEDS: ATORVASTATIN CA 40 MG TABLET (FP) PO SCH (21:54)
--- NOTE | 2017-08-02 00:41 | CONSULT ---
Consult Consult Specialty:: endocrine Referred by:: dr.[email or web address] johnson Reason for Consultation:: diabetes mellitus - History of Present Illness Chief Complaint: high blood sugars History of Present Illness: 72 year old male with a significant past medical history ofdm , AFIB on eliquis , CHF, HTN, Hyperlipidemia, Pulmonary Hypertension, COPD, O2 Dependent, Pneumonia, Sleep Apnea, GERD, Renal Insuff, Morbidly obese who presents to the ED with complaints of chest tightness and sob . Patient reports experiencing intermittent elevation of blood sugars has sensitivity to steroids,which make his sugars go up,denies low blood sugars at home,he has had weight gain and leg cramps - History Source History Provided By: Patient - Past Medical History Cardio/Vascular: Yes: AFIB, CHF, HTN, Hyperlipdemia, Pulmonary Hypertension Pulmonary: Yes: COPD, O2 Dependent, Pneumonia, Sleep Apnea. No: Cancer Gastrointestinal: Yes: GERD Renal/: Yes: Renal Inusuff Endocrine: Yes: Other (MORBIDLY OBESE) - Past Surgical History Past Surgical History: Yes: Tonsillectomy - Alcohol/Substance Use Hx Alcohol Use: No - Smoking History Smoking history: Former smoker Have you smoked in the past 12 months: No Aproximately how many cigarettes per day: 0 If you are a former smoker, when did you quit?: 6 years ago - Social History Usual Living Arrangement: With Spouse ADL: Independent Occupation: retired History of Recent Travel: No Home Medications - Allergies Allergies/Adverse Reactions: Allergies Allergy/AdvReac Type Severity Reaction Status Date / Time No Known Allergies Allergy Verified 07/30/17 11:13 - Home Medications Home Medications: Ambulatory Orders Apixaban [Eliquis] 5 mg PO BID 08/26/16 Verapamil HCl [Verapamil ER] 240 mg PO BID 08/26/16 Insulin (Novolog) [Novolog -] 0 units SQ AC #1 vial 04/17/17 Sitagliptin Phos/Metformin HCl [Janumet 50-1,000 mg Tablet] 1 each PO DAILY #30 tab 04/17/17 Digoxin [Lanoxin -] 0.125 mg PO DAILY tablet 07/15/17 Insulin (Levemir) [Levemir Flexpen -] 30 units SQ BID #4 syr 07/15/17 Metformin HCl [Glucophage -] 500 mg PO BID@0700,1630 tablet 07/15/17 Acetaminophen [Tylenol .Regular Strength -] 650 mg PO Q6H PRN tablet 07/26/17 Albuterol 0.083% Nebulizer [place] [Ventolin 0.083% Nebulizer Soln -] 1 amp NEB Q4H PRN amp 07/26/17 Albuterol 2.5/Ipratropium 0.5 [Duoneb -] 1 amp NEB RQID amp 07/26/17 Atorvastatin Ca [Lipitor] 40 mg PO HS tablet 07/26/17 Budesonide/Formeterol Fumarate [SYMBICORT 160/4.5mcg -] 2 puff IH BID inhaler 07/26/17 Fluticasone Prop 0.05% Nasal [Flonase -] 2 spray NS DAILY spray 07/26/17 Furosemide [Lasix -] 40 mg PO BID #60 tablet 07/26/17 Gabapentin [Neurontin -] 300 mg PO TID capsule 07/26/17 Loratadine [Claritin -] 10 mg PO DAILY tablet 07/26/17 Pantoprazole Sodium [Protonix -] 40 mg PO DAILY tablet.ec 07/26/17 Prednisone 10 mg PO ASDIR #65 tablet 07/26/17 Sodium Chloride Nasal [place] [[place] Nasal [place] -] 2 spray NS BID PRN spray 07/26/17 Tamsulosin HCl [Flomax -] 0.4 mg PO DAILY@0830 cap.er.24h 07/26/17 Review of Systems - Review of Systems Constitutional: reports: Weakness Eyes: reports: Blurred Vision HENT: reports: No Symptoms Neck: reports: No Symptoms Cardiovascular: reports: Palpitations, Shortness of Breath Respiratory: reports: Exercise Intolerance, Orthopnea, SOB on Exertion Gastrointestinal: reports: Indigestion Genitourinary: reports: No Symptoms Breasts: reports: No Symptoms Reported Musculoskeletal: reports: Muscle Pain, Muscle Cramps, Muscle Weakness Integumentary: reports: No Symptoms Neurological: reports: Weakness Endocrine: reports: Excessive Sweating Hematology/Lymphatic: reports: No Symptoms Physical Exam Vital Signs: Vital Signs Temperature 97.5 F L 08/01/17 19:56 Pulse Rate 83 08/01/17 19:56 Respiratory Rate 24 08/01/17 19:56 Blood Pressure 111/74 08/01/17 19:56 O2 Sat by Pulse Oximetry (%) 96 08/02/17 00:21 Constitutional: Yes: Anxious Eyes: Yes: EOM Intact HENT: Yes: Normocephalic Neck: Yes: Trachea Midline Cardiovascular: Yes: Tachycardia Respiratory: Yes: Rhonchi, SOB, Tachypnea Gastrointestinal: Yes: Abdomen, Obese ...Rectal Exam: Yes: Deferred Renal/: Yes: WNL Breast(s): Yes: WNL Musculoskeletal: Yes: WNL Extremities: Yes: WNL Neurological: Yes: Alert, Oriented Labs: CBC, BMP 08/01/17 05:35 08/01/17 05:35 Problem List - Problems (1) Type 2 diabetes mellitus with diabetic neuropathy Code(s): E11.40 - TYPE 2 DIABETES MELLITUS WITH DIABETIC NEUROPATHY, UNSP (2) Atrial fibrillation Code(s): I48.91 - UNSPECIFIED ATRIAL FIBRILLATION Qualifiers: Atrial fibrillation type: chronic Qualified Code(s): I48.2 - Chronic atrial fibrillation (3) Acute CHF Code(s): I50.9 - HEART FAILURE, UNSPECIFIED Qualifiers: Congestive heart failure type: systolic Qualified Code(s): I50.21 - Acute systolic (congestive) heart failure (4) Acute bronchitis Code(s): J20.9 - ACUTE BRONCHITIS, UNSPECIFIED Qualifiers: Bronchitis organism: unspecified organism Qualified Code(s): J20.9 - Acute bronchitis, unspecified (5) Acute chronic obstructive pulmonary disease with respiratory distress Code(s): J44.9 - CHRONIC OBSTRUCTIVE PULMONARY DISEASE, UNSPECIFIED; R06.03 - ACUTE RESPIRATORY DISTRESS (6) Acute exacerbation of chronic obstructive pulmonary disease (COPD) Code(s): J44.1 - CHRONIC OBSTRUCTIVE PULMONARY DISEASE W (ACUTE) EXACERBATION Assessment/Plan Current Active Problems Atrial fibrillation (Acute) COPD (chronic obstructive pulmonary disease) (Acute) Other specified eating disorder (Acute) Type 2 diabetes mellitus with diabetic neuropathy (Acute) Abnormal Lab Results 08/01/17 08/01/17 08/01/17 05:35 05:35 05:35 Hgb 10.7 L D Hct 34.0 L MCHC 31.4 L RDW 21.0 H Anion Gap 7 L BUN 19 H D Random Glucose 315 H* D Hemoglobin A1c % 11.1 H D Calcium 8.3 L Total Protein 5.3 L Albumin 2.6 L Laboratory Results - last 24 hr 08/01/17 08/01/17 08/01/17 05:35 05:35 05:35 WBC 9.1 RBC 4.00 Hgb 10.7 L D Hct 34.0 L MCV 85.1 MCH 26.7 MCHC 31.4 L RDW 21.0 H Plt Count 220 MPV 8.2 Sodium 140 Potassium 4.3 Chloride 104 Carbon Dioxide 29 Anion Gap 7 L BUN 19 H D Creatinine 0.7 Creat Clearance w eGFR > 60 Random Glucose 315 H* D Hemoglobin A1c % 11.1 H D Calcium 8.3 L Magnesium 1.9 Total Bilirubin 0.6 D AST 31 D ALT 63 Alkaline Phosphatase 81 Creatine Kinase Troponin I Total Protein 5.3 L Albumin 2.6 L 08/01/17 09:45 WBC RBC Hgb Hct MCV MCH MCHC RDW Plt Count MPV Sodium Potassium Chloride Carbon Dioxide Anion Gap BUN Creatinine Creat Clearance w eGFR Random Glucose Hemoglobin A1c % Calcium Magnesium Total Bilirubin AST ALT Alkaline Phosphatase Creatine Kinase 58 Troponin I < 0.02 Total Protein Albumin impression:plan bgm qid novolog insulin doses levemir dose adjustment 37 units bid given high hba1c steroid resistant hyperglycemia diet consult
[2017-08-02] MEDS ORDERED: INSULIN DETEMIR 100 UNITS/ML MDV SQ SCH (00:44)
[2017-08-02] MEDS: GABAPENTIN 300 MG CAPSULE (FP) PO SCH ×3 (05:02→21:52)
[2017-08-02] MEDS: FUROSEMIDE 40 MG/4 ML INJECTABLE VIAL IVPUSH SCH ×2 (05:02→13:36)
[2017-08-02 06:43] LABS: ALBUMIN 2.8 g/dl (3.4-5.0); ANION GAP 5 (8-16); BLOOD UREA NITROGEN 20 mg/dL (7-18); CALCIUM 8.2 mg/dL (8.5-10.1); CHLORIDE 105 mmol/L (98-107); CO2 34 mmol/L (21-32); CREATININE 0.9 mg/dL (0.7-1.3); GLUCOSE,RANDOM 149 mg/dL (74-106); POTASSIUM 3.7 mmol/L (3.5-5.1); SGOT/AST 17 U/L (15-37); SGPT/ALT 65 U/L (12-78); SODIUM 144 mmol/L (136-145)
[2017-08-02] MEDS: INSULIN SLIDING SCALE (NOVOLOG) 1 VIAL SQ SCH ×4 (06:43→21:53)
[2017-08-02 06:46] LABS: ALK PHOS 96 U/L (45-117); BILIRUBIN,TOTAL 0.5 mg/dL (0.2-1.0); TOT PROT 5.8 g/dl (6.4-8.2)
[2017-08-02] MEDS ORDERED: dilTIAZem HCL 50 MG/10 ML - 10 ML VIAL IVPUSH ONE ×4 (06:50→08:46)
[2017-08-02] MEDS ORDERED: dilTIAZem HCL 125 MG/25 ML - 25 ML VIAL ONE (07:06)
--- NOTE | 2017-08-02 07:09 | HOSP ---
Subjective - Review of Symptoms Subjective: [employer] called for R Afib Pt. states he feels ok no chest pain or pressure, but on BIPAP Physical: VS: HR 159 02 99 ob BIPAP BP 133/68 CARD: IRR S1, S2 RESP: Decreased BS at bases EXT: +1 Pitting edema A/P.) R Afib - EKG/TROP - Pt. on Verapamil and Digoxin (Theraputic) - Will add Cardizem *very low dose and monitor for Low HR 5mg only - NO BB due to hx. of Severe COPD/Bronchospasm - Cardiology on Consult Physical Examination Vital Signs: Vital Signs Temperature 97.1 F L 08/02/17 02:00 Pulse Rate 139 H 08/02/17 06:41 Respiratory Rate 24 08/02/17 06:41 Blood Pressure 130/71 08/02/17 06:41 O2 Sat by Pulse Oximetry (%) 96 08/02/17 00:21 Labs: CBC, BMP 08/01/17 05:35 08/02/17 05:30
[2017-08-02] MEDS ORDERED: DILTIAZEM INJECTION 125 MG in DEXTROSE 5%-WATER - 100 ML IVPB SCH ×2 (07:45→09:00)
--- NOTE | 2017-08-02 08:00 | HOSP ---
Physical Examination Vital Signs: Vital Signs Temperature 97.1 F L 08/02/17 02:00 Pulse Rate 139 H 08/02/17 06:41 Respiratory Rate 24 08/02/17 06:41 Blood Pressure 130/71 08/02/17 06:41 O2 Sat by Pulse Oximetry (%) 96 08/02/17 00:21 Labs: CBC, BMP 08/01/17 05:35 08/02/17 05:30 Hospitalist Encounter Assessment: Called by primary RN that patient's heart rate remains in the 140s despite being given Cardizem 5mg x 1 at 0700 On exam, patient is laying in the bed, in no acute distress, states he feels no pain, no chest pain or pressure. on bipap Vitals: 130/71, 140s afib on quality assurance monitor, 96% on bipap, 22 breaths per minute, afebrile Lungs diminished anteriorly Plan: Trop x 3 trend Cardizem 10mg x now, start on cardizem drip and titrate Cardiology follow up As per previous note, no BB as pt has hx of severe copd/broncospams Monitor heart rate Mag stat, cbc stat
[2017-08-02] MEDS: sitaGLIPtin PHOSPHATE 50 MG TABLET PO SCH (08:06)
[2017-08-02] MEDS: metFORMIN HCL 500 MG TABLET (FP) PO SCH (08:06)
[2017-08-02] MEDS: ALBUTEROL SO4 2.5/IPRATROPIUM 0.5 INH SOL 3 ML VIAL.NEB. NEB SCH ×3 (08:15→21:40)
[2017-08-02 08:32] LABS: HEMATOCRIT 39.8 % (35.4-49); HEMOGLOBIN 12.3 GM/dL (11.7-16.9); MCH 26.4 pg (25.7-33.7); MEAN CELL VOLUME 85.3 fl (80-96); MEAN PLT VOLUME 8.3 fl (7.5-11.1); PLATELET COUNT 264 K/MM3 (134-434); RBC 4.67 M/mm3 (4.00-5.60); RDW 21.4 % (11.9-15.9); WHITE BLOOD COUNT 7.9 K/mm3 (4.0-10.0)
[2017-08-02 08:48] LABS: MAGNESIUM 1.6 mg/dL (1.8-2.4)
[2017-08-02] MEDS ORDERED: DIGOXIN 0.5 MG/2 ML AMPUL ONE ×2 (08:54→08:55)
[2017-08-02] MEDS ORDERED: DIGOXIN 0.5 MG/2 ML AMPUL IVPUSH ONE (08:57)
[2017-08-02] MEDS ORDERED: AMIODARONE HCL 150 MG/3 ML VIAL ONE (09:26)
[2017-08-02] MEDS ORDERED: AMIODARONE HCL 150 MG/3 ML VIAL IVPUSH ONE ×2 (09:27→16:51)
--- NOTE | 2017-08-02 09:31 | PN ---
Progress Note, Physician History of Present Illness: PT IN RAPID AFIB GIVEN CARDIZEM AND DIG ON CARDIZEM DRIP - Current Medication List Current Medications: Active Medications Acetaminophen (Tylenol -) 650 mg PO Q6H PRN PRN Reason: BACK PAIN Albuterol Sulfate (Ventolin 0.083% Nebulizer Soln -) 1 amp NEB Q4H PRN PRN Reason: SHORT OF BREATH/WHEEZING Albuterol/Ipratropium (Duoneb -) 1 amp NEB RQID [facility] Last Admin: 08/02/17 08:15 Dose: 1 amp Amiodarone HCl (Cordarone Injection -) 150 mg IVPUSH ONCE ONE Stop: 08/02/17 09:28 Apixaban (Eliquis -) 5 mg PO BID [facility] Last Admin: 08/01/17 21:53 Dose: 5 mg Atorvastatin Calcium (Lipitor -) 40 mg PO HS [facility] Last Admin: 08/01/17 21:54 Dose: 40 mg Budesonide/Formoterol Fumarate (Symbicort 160/4.5mcg -) 2 puff IH BID [facility] Last Admin: 08/01/17 21:54 Dose: 2 inh Fluticasone Propionate (Flonase -) 2 spray NS DAILY [facility] Last Admin: 08/01/17 09:32 Dose: 2 spray Furosemide (Lasix Injection -) 80 mg IVPUSH BID@0600,1400 [facility] Last Admin: 08/02/17 05:02 Dose: 80 mg Gabapentin (Neurontin -) 300 mg PO TID [facility] Last Admin: 08/02/17 05:02 Dose: 300 mg Diltiazem HCl 125 mg/ Dextrose 125 mls @ 5 mls/hr IVPB TITR ARVIND; 5 MG/HR PRN Reason: Protocol Famotidine (Pepcid 20 Mg/12 Ml Push) 20 mg in 12 mls @ 144 mls/hr IVPUSH BID [facility] Insulin Aspart (Novolog Vial Sliding Scale -) 1 vial SQ ACHS [facility] PRN Reason: Protocol Last Admin: 08/02/17 06:43 Dose: Not Given Insulin Detemir (Levemir Vial) 37 units SQ BID@0700,2200 [facility] Last Admin: 08/02/17 08:07 Dose: Not Given Loratadine (Claritin -) 10 mg PO DAILY [facility] Last Admin: 08/01/17 09:32 Dose: 10 mg Metformin HCl (Glucophage -) 1,000 mg PO DAILY@0700 [facility] Last Admin: 08/02/17 08:06 Dose: Not Given Pantoprazole Sodium (Protonix -) 40 mg PO DAILY [facility] Last Admin: 08/01/17 09:32 Dose: 40 mg Prednisone (Deltasone -) 40 mg PO DAILY [facility] Last Admin: 08/01/17 09:35 Dose: 40 mg Sitagliptin Phosphate (Januvia -) 50 mg PO DAILY@0700 [facility] Last Admin: 08/02/17 08:06 Dose: Not Given Sodium Chloride ([place] Nasal [place] -) 2 spray NS BID PRN PRN Reason: NASAL CONGESTION Tamsulosin HCl (Flomax -) 0.4 mg PO DAILY@0830 [facility] Last Admin: 08/01/17 09:32 Dose: 0.4 mg Verapamil HCl (Calan Sr -) 240 mg PO BID [facility] Last Admin: 08/01/17 21:53 Dose: 240 mg - Objective Vital Signs: Vital Signs Temperature 97.1 F L 08/02/17 02:00 Pulse Rate 139 H 08/02/17 06:41 Respiratory Rate 24 08/02/17 06:41 Blood Pressure 130/71 08/02/17 06:41 O2 Sat by Pulse Oximetry (%) 96 08/02/17 00:21 Cardiovascular: Yes: Tachycardia, Pulse Irregular, S1, S2 Respiratory: Yes: On Nasal O2, Orthopnea, Rales Gastrointestinal: Yes: Normal Bowel Sounds, Soft Edema: Yes Labs: CBC, BMP 08/02/17 06:00 08/02/17 05:30 INR, PTT INR 0.98 (0.82-1.09) 07/30/17 10:40 Problem List - Problems (1) Atrial fibrillation Assessment/Plan: -Continue CARDIZEM DRIP -AMIO 150 X 1 -Dig -Continue Apixaban 5mg BID -ICU -CARDIO Code(s): I48.91 - UNSPECIFIED ATRIAL FIBRILLATION Qualifiers: Atrial fibrillation type: chronic Qualified Code(s): I48.2 - Chronic atrial fibrillation (2) Acute chronic obstructive pulmonary disease with respiratory distress Assessment/Plan: STEROIDS NEBS O2 Code(s): J44.9 - CHRONIC OBSTRUCTIVE PULMONARY DISEASE, UNSPECIFIED; R06.03 - ACUTE RESPIRATORY DISTRESS (3) Acute exacerbation of chronic obstructive pulmonary disease (COPD) Assessment/Plan: -pulmonary consult -bronchodilators -nasal O2 -bipap -IV steroids -ID eval Code(s): J44.1 - CHRONIC OBSTRUCTIVE PULMONARY DISEASE W (ACUTE) EXACERBATION (4) CHF exacerbation Assessment/Plan: IV LASIX MONITOR LYTES CXR CARDIOLOGY Code(s): I50.9 - HEART FAILURE, UNSPECIFIED Qualifiers: Congestive heart failure type: unspecified congestive heart failure type
[2017-08-02] MEDS ORDERED: ONDANSETRON 4 MG/2 ML VIAL IVPUSH ONE (09:39)
[2017-08-02] MEDS: DILTIAZEM INJECTION 125 MG in DEXTROSE 5%-WATER - 100 ML IVPB SCH (09:40)
[2017-08-02] MEDS ORDERED: MAGNESIUM SULF 50% (8.12 MEQ/2 ML-1 GM VIAL) IVPB ONE (09:43)
[2017-08-02] MEDS ORDERED: AMIODARONE HCL INJECTION 150 MG in DEXTROSE 5%-WATER - 97 ML IVPB ONE (09:45)
--- NOTE | 2017-08-02 09:49 | PN ---
Progress Note (short form) - Note Progress Note: Chief Complaint: sob History of Present Illness: HR to 140's this am in setting of low k, low mg and recurrent vomiting. Given 150 IV amio. 0.25 digoxin IV x 1. Given a total of 25 mg of IV dilt and started on diltiazem drip. States nausea started this am. no diarrhea, abdominal pain. no cp, palps, le edema. has been overall adherent to bipap overnight but intermittently needing to take bipap off this morning due to vomiting. no palpitations + ex-cigs Current Medications Acetaminophen (Tylenol -) 650 mg PO Q6H PRN PRN Reason: BACK PAIN Albuterol Sulfate (Ventolin 0.083% Nebulizer Soln -) 1 amp NEB Q4H PRN PRN Reason: SHORT OF BREATH/WHEEZING Albuterol/Ipratropium (Duoneb -) 1 amp NEB RQID [facility] Last Admin: 08/02/17 08:15 Dose: 1 amp Apixaban (Eliquis -) 5 mg PO BID [facility] Last Admin: 08/01/17 21:53 Dose: 5 mg Atorvastatin Calcium (Lipitor -) 40 mg PO HS [facility] Last Admin: 08/01/17 21:54 Dose: 40 mg Budesonide/Formoterol Fumarate (Symbicort 160/4.5mcg -) 2 puff IH BID [facility] Last Admin: 08/01/17 21:54 Dose: 2 inh Chlorhexidine Gluconate (Hibiclens For Decolonization -) 1 applic TP [facility] Fluticasone Propionate (Flonase -) 2 spray NS DAILY [facility] Last Admin: 08/01/17 09:32 Dose: 2 spray Furosemide (Lasix Injection -) 80 mg IVPUSH BID@0600,1400 [facility] Last Admin: 08/02/17 05:02 Dose: 80 mg Gabapentin (Neurontin -) 300 mg PO TID [facility] Last Admin: 08/02/17 05:02 Dose: 300 mg Diltiazem HCl 125 mg/ Dextrose 125 mls @ 5 mls/hr IVPB TITR [facility]; 5 MG/HR PRN Reason: Protocol Famotidine (Pepcid 20 Mg/12 Ml Push) 20 mg in 12 mls @ 144 mls/hr IVPUSH BID [facility] Amiodarone HCl 150 mg/ (Dextrose) 100 mls @ 618 mls/hr IVPB ONCE ONE PRN Reason: Protocol Stop: 08/02/17 09:54 Insulin Aspart (Novolog Vial Sliding Scale -) 1 vial SQ ACHS [facility] PRN Reason: Protocol Last Admin: 08/02/17 06:43 Dose: Not Given Insulin Detemir (Levemir Vial) 37 units SQ BID@0700,2200 [facility] Last Admin: 08/02/17 08:07 Dose: Not Given Loratadine (Claritin -) 10 mg PO DAILY [facility] Last Admin: 08/01/17 09:32 Dose: 10 mg Metformin HCl (Glucophage -) 1,000 mg PO DAILY@0700 [facility] Last Admin: 08/02/17 08:06 Dose: Not Given Mupirocin (Bactroban Ointment (For Decolonization) -) 1 applic NS BID [facility] Stop: 08/07/17 09:59 Pantoprazole Sodium (Protonix -) 40 mg PO DAILY [facility] Last Admin: 08/01/17 09:32 Dose: 40 mg Prednisone (Deltasone -) 40 mg PO DAILY [facility] Last Admin: 08/01/17 09:35 Dose: 40 mg Sitagliptin Phosphate (Januvia -) 50 mg PO DAILY@0700 [facility] Last Admin: 08/02/17 08:06 Dose: Not Given Sodium Chloride ([place] Nasal [place] -) 2 spray NS BID PRN PRN Reason: NASAL CONGESTION Tamsulosin HCl (Flomax -) 0.4 mg PO DAILY@0830 [facility] Last Admin: 08/01/17 09:32 Dose: 0.4 mg Verapamil HCl (Calan Sr -) 240 mg PO BID [facility] Last Admin: 08/01/17 21:53 Dose: 240 mg - Objective Vital Signs: Vital Signs - 24 hr 08/01/17 08/01/17 08/01/17 12:00 12:05 13:50 Temperature Pulse Rate 108 H Respiratory 20 Rate Blood Pressure 136/78 O2 Sat by Pulse 97 96 Oximetry (%) 08/01/17 08/01/17 08/01/17 15:57 18:00 18:27 Temperature Pulse Rate 110 H Respiratory 22 Rate Blood Pressure 143/100 O2 Sat by Pulse 97 97 Oximetry (%) 08/01/17 08/01/17 08/01/17 19:37 19:56 21:00 Temperature 97.5 F L Pulse Rate 83 Respiratory 22 24 Rate Blood Pressure 111/74 O2 Sat by Pulse 97 96 Oximetry (%) 08/02/17 08/02/17 08/02/17 00:21 02:00 06:41 Temperature 97.1 F L Pulse Rate 104 H 139 H Respiratory 24 24 Rate Blood Pressure 116/67 130/71 O2 Sat by Pulse 96 Oximetry (%) Intake & Output 07/31/17 08/01/17 08/02/17 08/03/17 07:59 07:59 07:59 07:59 Intake Total 240 480 Output Total 1600 3000 Balance -1360 -2520 Weight 240 lb 327 lb Constitutional: Yes: uncomfortable, vomiting. Obese Eyes: No: Sclera Icterus HENT: No: Nasal Congestion Cardiovascular: Yes: Pulse Irregular (soft heart sounds), S1, S2, Other (PMI non diplaced). No: JVD (very tds habitus plus bipap mask), Gallop, Murmur Respiratory: Yes: diminished air movment, Rhonchi, Wheezes. No: Accessory Muscle Use, Rales Gastrointestinal: Yes: Normal Bowel Sounds, Soft. No: Tenderness Musculoskeletal: Yes: Other (No kyphosis) Extremities: No: Cold Edema: Yes ( 1+ pretib) Integumentary: No: Jaundice Neurological: Yes: Alert, Oriented (x3) Psychiatric: No: Agitated Labs: CBC, BMP 08/02/17 06:00 08/02/17 05:30 Laboratory Tests 07/30/17 08/01/17 08/02/17 10:40 09:45 05:30 Magnesium Troponin I < 0.02 Albumin 2.8 L Digoxin 0.4643 L 08/02/17 06:00 Magnesium 1.6 L Troponin I < 0.02 Albumin Digoxin - ....Imaging EKG: Other (tele: afib HRs 100's, this morning trended up and have remained in the 140's.) Assessment/Plan echo 07/2016: Nl lv/rv. 1+ AR mibi 12/2012: small posterior ischemia vs artifact, nl lvef, no tid cxr: incr markings at bases c/w atx vs early infiltrate a/p: 72 yo male with h/o AFib s/p prior DCCV 12/2015 to SR on AC, HTN, HL, dchf , PVCs with palpitations, morbid obesity, NATHANIEL on bipap, severe COPD, here with sob. a.e. copd: - copd/nathaniel tx per pulm acute on chronic diastolic chf: - previous admits, wt up to 340s-350s when decomp chf, with signif incr LE edema - d/c wt 04/26 was 324. and was 315 when left here 07/28, then back up to 327 when back with a.e. copd 07/28. - 07/28 copd admit with marked pedal edema treated with lasix 80 iv bid--d/c wt 314. sent out on lasix 40 po bid. - marked weakness with activity at home, cxr with fluid in fissure, ? effusions on image review--pulmonary team does not suspect a.e. copd or PNA - BNP 180 (prior range 90-300). phys exam prohibitively TDS for volume assessment, and cannot get standing wts until pt moves from ICU to tele bed. - 08/01 no standing weight done here (ordered today). incr lasix from 40 iv bid to 80 iv bid. - 08/02: bmp stable on increased IV lasix, con't. aggressive lyte repletion. - monitor daily labs. weights, i/o's, consider CT chest if not improving, or becomes prerenal rapidly. - he resists taking lasix bid at home due to freq urinating. should go home on 80 qd this time paroxysmal AF/flutter -cont eliquis for AC -new dx 2015--req'd amio for HR control then (now off due to severe lung dz), s/ p successful DCCV 12/24, then reverted to afib -defer AVN ablation/PPM unless future signs of HF being driven by rapid HRs (to date thus far, his AF rates are well-controlled at office, and only rapid sec to acute copd). -avoiding BB given severe bronchospasm/copd; would like to avoid long-term amio for same reason -on outpatient regimen here, verapamil 240 bid, and dig (level good here). monitor tele -rate typically becomes elevated in settings of respiratory distress and often improves with bipap therapy. - 08/02: K 3.7 and mg 1.6 this am. + recurrent nausea/vomiting this morning --> RVR to 140's . Given 150 IV amio. 0.25 digoxin IV x 1. Given a total of 25 mg of IV dilt and started on diltiazem drip. Recommend aggressive lyte repletion. Will need monitor dig level closely as amio/dilt will affect levels. Control of nausea/vomiting per pmd/pulm critical care. Reassess HR once above interventions are completed. hld: -continue home statin htn: -stable on current meds, monitor with above med changes. possible cad: -pt had borderline positive mibi in 2013 vs soft tissue attenuation artifact -never had angina sx's -ECG nonsp ST-T no signif change vs prior. trop neg x2. no anginal sx's -continue medical management with statin, AC without ASA cct > 35 min
[2017-08-02] MEDS ORDERED: POTASSIUM CHLORIDE TABS 20 MEQ TABLET.ER (FP) PO ONE (09:50)
[2017-08-02] MEDS ORDERED: MAGNESIUM SULF 50% (8.12 MEQ/2 ML-1 GM VIAL) ONE (09:52)
[2017-08-02] MEDS ORDERED: MAGNESIUM SULFATE IN WATER 2 GM/50 ML IVPB IVPB ONE (10:00)
[2017-08-02] MEDS ORDERED: FAMOTIDINE IV 20 MG/12 ML VIAL IVPUSH SCH (10:00)
[2017-08-02] MEDS: BUDESONIDE/FORMETEROL FUMARATE 160/4.5 mcg INHALER IH SCH ×2 (10:00→21:52)
[2017-08-02] MEDS: methylPREDNISolone NA SUCC 40 MG/1 ML VIAL IVPUSH SCH ×2 (10:28→18:01)
[2017-08-02] MEDS: DIGOXIN 0.125 MG TABLET (FP) PO SCH (10:28)
[2017-08-02] MEDS ORDERED: PT OWN MED DRAWER 7, Y5N ONE ×2 (13:17→21:46)
[2017-08-02] MEDS: VERAPAMIL HCL 240 MG E.R. TABLET (FP) PO SCH ×2 (13:33→22:35)
[2017-08-02] MEDS: LORATADINE 10 MG TABLET PO SCH (13:33)
[2017-08-02] MEDS: APIXABAN 5 MG TABLET PO SCH ×2 (13:34→22:35)
[2017-08-02] MEDS: FLUTICASONE PROP 0.05% 16 GM NASAL SPRAY NS SCH (13:37)
[2017-08-02] MEDS: MUPIROCIN 2% TOPICAL OINTMENT FOR DECOLONIZATION NS SCH ×2 (13:52→21:51)
[2017-08-02 15:26] LABS: ANISOCYTOSIS 2+
[2017-08-02] MEDS: TAMSULOSIN HCL 0.4 MG CAP.ER.24H (FP) PO SCH (16:03)
[2017-08-02] MEDS ORDERED: ALBUTEROL SO4 0.083% IH SOL 2.5 MG/3 ML VIAL.NEB. NEB PRN (16:51)
[2017-08-02] MEDS ORDERED: SODIUM CHLORIDE NASAL SPRAY 44 ML BOTTLE NS PRN (16:51)
[2017-08-02] MEDS ORDERED: ACETAMINOPHEN 325 MG TABLET (FP) PO PRN (16:51)
--- NOTE | 2017-08-02 17:33 | PN ---
Progress Note (short form) - Note Progress Note: Patient seen and examined in the Telemetry unit. Rapid AFib in the 140's this am in setting of low K/Mg and vomiting. Given 150 IV amiodarone x 1 dose and 0.25 digoxin IV x 1 dose. Started on Cardizem drip. Denies CP but some palpitations. Placed back on NIPPV support. Intake & Output 07/30/17 07/31/17 08/01/17 08/02/17 23:59 23:59 23:59 23:59 Intake Total 480 240 Output Total 800 2800 3000 Balance -800 -7134 -6770 Weight 240 lb 327 lb Last Vital Signs Temp Pulse Resp BP Pulse Ox 97.8 F 126 H 24 144/86 93 L 08/02/17 10:00 08/02/17 10:58 08/02/17 10:00 08/02/17 10:58 08/02/17 14:33 Active Medications Acetaminophen (Tylenol -) 650 mg PO Q6H PRN PRN Reason: BACK PAIN Albuterol Sulfate (Ventolin 0.083% Nebulizer Soln -) 1 amp NEB Q4H PRN PRN Reason: SHORT OF BREATH/WHEEZING Last Admin: 08/02/17 17:10 Dose: 1 amp Albuterol/Ipratropium (Duoneb -) 1 amp NEB RQID [facility] Apixaban (Eliquis -) 5 mg PO BID [facility] Atorvastatin Calcium (Lipitor -) 40 mg PO HS [facility] Budesonide/Formoterol Fumarate (Symbicort 160/4.5mcg -) 2 puff IH RBID [facility] Chlorhexidine Gluconate (Hibiclens For Decolonization -) 1 applic TP HS [facility] Digoxin (Lanoxin -) 0.125 mg PO DAILY [facility] Last Admin: 08/02/17 10:28 Dose: Not Given Fluticasone Propionate (Flonase -) 2 spray NS DAILY [facility] Furosemide (Lasix Injection -) 80 mg IVPUSH BID@0600,1400 [facility] Gabapentin (Neurontin -) 300 mg PO TID [facility] Diltiazem HCl 125 mg/ Dextrose 125 mls @ 5 mls/hr IVPB TITR [facility]; 5 MG/HR PRN Reason: Protocol Famotidine/Sodium Chloride (Pepcid 20 Mg Premixed Ivpb -) 20 mg in 50 mls @ 100 mls/hr IVPB BID [facility] Insulin Aspart (Novolog Vial Sliding Scale -) 1 vial SQ ACHS [facility] PRN Reason: Protocol Insulin Detemir (Levemir Vial) 37 units SQ BID@0700,2200 [facility] Loratadine (Claritin -) 10 mg PO DAILY [facility] Methylprednisolone Sodium Succinate (Solu-Medrol -) 40 mg IVPUSH Q8H-IV [facility] Last Admin: 08/02/17 10:28 Dose: 40 mg Mupirocin (Bactroban Ointment (For Decolonization) -) 1 applic NS BID [facility] Stop: 08/07/17 09:59 Last Admin: 08/02/17 13:52 Dose: Not Given Sodium Chloride ([place] Nasal [place] -) 2 spray NS BID PRN PRN Reason: NASAL CONGESTION Tamsulosin HCl (Flomax -) 0.4 mg PO DAILY@0830 [facility] Verapamil HCl (Calan Sr -) 240 mg PO BID [facility] Constitutional: Yes: Awake and alert, mild to moderate distress, Obese Eyes: Yes: Conjunctiva Clear, EOM Intact HENT: Yes: Atraumatic, Normocephalic Neck: Yes: Supple, Trachea Midline Cardiovascular: Yes: Pulse Irregular, tachycardia Respiratory: Yes: Diminished, On Nasal O2, Rales, Rhonchi, SOB. No: Accessory Muscle Use, Stridor, Tachypnea, Wheezes ...Inspection: Yes: WNL ...Clubbing: No Gastrointestinal: Yes: Normal Bowel Sounds, Soft, Abdomen, Obese Musculoskeletal: Yes: WNL Extremities: Yes: WNL Edema: Yes Peripheral Pulses WNL: Yes Integumentary: Yes: WNL Neurological: Yes: WNL, Alert, Oriented ...Motor Strength: WNL Psychiatric: Yes: WNL, Alert, Oriented Labs: Laboratory Results - last 24 hr 08/02/17 08/02/17 08/02/17 05:30 05:52 05:57 WBC RBC Hgb Hct MCV MCH MCHC RDW Plt Count MPV Total Counted Neutrophils % Neutrophils % (Manual) Band Neutrophils % Lymphocytes % Lymphocytes % (Manual) Monocytes % (Manual) Anisocytosis Sodium 144 Potassium 3.7 Chloride 105 Carbon Dioxide 34 H Anion Gap 5 L BUN 20 H Creatinine 0.9 D Creat Clearance w eGFR > 60 POC Glucometer 163.91166 163.97298 Random Glucose 149 H D Calcium 8.2 L Magnesium Total Bilirubin 0.5 AST 17 D ALT 65 Alkaline Phosphatase 96 Troponin I Total Protein 5.8 L Albumin 2.8 L 08/02/17 08/02/17 08/02/17 06:00 06:00 14:05 WBC 7.9 RBC 4.67 Hgb 12.3 D Hct 39.8 D MCV 85.3 MCH 26.4 MCHC 31.0 L RDW 21.4 H Plt Count 264 MPV 8.3 Total Counted 100 Neutrophils % No Result Required. Neutrophils % (Manual) 82.0 Band Neutrophils % 11.0 Lymphocytes % No Result Required. Lymphocytes % (Manual) 2.0 L D Monocytes % (Manual) 5 Anisocytosis 2+ Sodium Potassium Chloride Carbon Dioxide Anion Gap BUN Creatinine Creat Clearance w eGFR POC Glucometer Random Glucose Calcium Magnesium 1.6 L Total Bilirubin AST ALT Alkaline Phosphatase Troponin I < 0.02 0.03 D Total Protein Albumin Problem List - Problems (1) Atrial fibrillation Assessment/Plan: Code(s): I48.91 - UNSPECIFIED ATRIAL FIBRILLATION Qualifiers: Atrial fibrillation type: chronic Qualified Code(s): I48.2 - Chronic atrial fibrillation (2) Acute chronic obstructive pulmonary disease with respiratory distress Assessment/Plan: Code(s): J44.9 - CHRONIC OBSTRUCTIVE PULMONARY DISEASE, UNSPECIFIED; R06.03 - ACUTE RESPIRATORY DISTRESS (3) Acute exacerbation of chronic obstructive pulmonary disease (COPD) Assessment/Plan: Code(s): J44.1 - CHRONIC OBSTRUCTIVE PULMONARY DISEASE W (ACUTE) EXACERBATION (4) CHF exacerbation Assessment/Plan: Code(s): I50.9 - HEART FAILURE, UNSPECIFIED Qualifiers: Congestive heart failure type: unspecified congestive heart failure type Assessment/Plan Do not have a high suspicion for infection: monitor off ABX Noted Medrol added BD TX O2 as needed NIPPV QHS and PRN Daily weight IV Cardizem for rate control Dr Emanuel Critical care time spent in reviewing chart, evaluating patient and formulating plan - 36 minutes.
[2017-08-02] MEDS ORDERED: INSULIN REGULAR HUMAN 100 UNITS/ML *VIAL ONE (17:55)
[2017-08-02] MEDS: FAMOTIDINE 20 MG/50 ML IVPB 20 MG/50 ML MG IVPB SCH (21:50)
[2017-08-02] MEDS: INSULIN DETEMIR 100 UNITS/ML MDV SQ SCH (21:51)
[2017-08-02] MEDS: CHLORHEXIDINE GLUCONATE 4% CLEANSER FOR DECOLONIZATION TP SCH (21:51)
[2017-08-02] MEDS: ATORVASTATIN CA 40 MG TABLET (FP) PO SCH (21:52)
[2017-08-03] MEDS: methylPREDNISolone NA SUCC 40 MG/1 ML VIAL IVPUSH SCH ×3 (02:29→17:17)
[2017-08-03] MEDS: INSULIN SLIDING SCALE (NOVOLOG) 1 VIAL SQ SCH ×4 (06:49→21:28)
[2017-08-03] MEDS: GABAPENTIN 300 MG CAPSULE (FP) PO SCH ×3 (06:49→21:28)
[2017-08-03] MEDS: FUROSEMIDE 40 MG/4 ML INJECTABLE VIAL IVPUSH SCH ×4 (06:49→14:29)
[2017-08-03] MEDS: INSULIN DETEMIR 100 UNITS/ML MDV SQ SCH ×2 (06:50→21:28)
[2017-08-03 07:30] LABS: CHLORIDE 101 mmol/L (98-107); POTASSIUM 4.1 mmol/L (3.5-5.1); SODIUM 140 mmol/L (136-145)
[2017-08-03 07:31] LABS: MAGNESIUM 1.7 mg/dL (1.8-2.4)
[2017-08-03 07:41] LABS: ALBUMIN 2.6 g/dl (3.4-5.0); ALK PHOS 69 U/L (45-117); ANION GAP 7 (8-16); BILIRUBIN,TOTAL 0.6 mg/dL (0.2-1.0); BLOOD UREA NITROGEN 25 mg/dL (7-18); CALCIUM 8.1 mg/dL (8.5-10.1); CO2 32 mmol/L (21-32); CREATININE 0.8 mg/dL (0.7-1.3); GLUCOSE,RANDOM 162 mg/dL (74-106); SGOT/AST 21 U/L (15-37); SGPT/ALT 54 U/L (12-78); TOT PROT 5.7 g/dl (6.4-8.2)
[2017-08-03 08:05] LABS: BASO % 0.1 % (0-2.0); EOS % 0.1 % (0-4.5); HEMATOCRIT 40.1 % (35.4-49); HEMOGLOBIN 12.5 GM/dL (11.7-16.9); MCH 26.6 pg (25.7-33.7); MCHC 31.2 g/dl (32.0-35.9); MEAN CELL VOLUME 85.4 fl (80-96); MEAN PLT VOLUME 8.2 fl (7.5-11.1); MONO % 3.7 % (3.8-10.2); NEUT % 93.1 % (42.8-82.8); PLATELET COUNT 291 K/MM3 (134-434); RDW 21.5 % (11.9-15.9); WHITE BLOOD COUNT 7.4 K/mm3 (4.0-10.0)
--- NOTE | 2017-08-03 08:05 | EKG ---
Test Reason : Blood Pressure : / mmHG Vent. Rate : 146 BPM Atrial Rate : 138 BPM P-R Int : 000 ms QRS Dur : 082 ms QT Int : 268 ms P-R-T Axes : 000 058 070 degrees QTc Int : 417 ms ATRIAL FIBRILLATION WITH RAPID VENTRICULAR RESPONSE WITH PREMATURE VENTRICULAR OR ABERRANTLY CONDUCTED COMPLEXES NONSPECIFIC ST AND T WAVE ABNORMALITY ABNORMAL ECG WHEN COMPARED WITH ECG OF 30-JUL-2017 10:35, NO SIGNIFICANT CHANGE WAS FOUND Confirmed by SELVIN WATTS MD ([id number]) on 08/03/2017 8:05:21 AM Referred By: Confirmed By:SELVIN WATTS MD
[2017-08-03] MEDS: ALBUTEROL SO4 2.5/IPRATROPIUM 0.5 INH SOL 3 ML VIAL.NEB. NEB SCH ×4 (08:30→20:45)
[2017-08-03] MEDS ORDERED: PT OWN MED DRAWER 7, Y5N ONE (08:59)
[2017-08-03] MEDS: DIGOXIN 0.125 MG TABLET (FP) PO SCH (09:19)
[2017-08-03] MEDS: VERAPAMIL HCL 240 MG E.R. TABLET (FP) PO SCH ×2 (09:19→21:29)
[2017-08-03] MEDS: APIXABAN 5 MG TABLET PO SCH ×2 (09:19→21:29)
[2017-08-03] MEDS: TAMSULOSIN HCL 0.4 MG CAP.ER.24H (FP) PO SCH (09:20)
[2017-08-03] MEDS: LORATADINE 10 MG TABLET PO SCH (09:26)
[2017-08-03] MEDS: FAMOTIDINE 20 MG/50 ML IVPB 20 MG/50 ML MG IVPB SCH ×2 (09:27→21:29)
[2017-08-03] MEDS: FLUTICASONE PROP 0.05% 16 GM NASAL SPRAY NS SCH (09:39)
[2017-08-03] MEDS: MUPIROCIN 2% TOPICAL OINTMENT FOR DECOLONIZATION NS SCH ×2 (09:40→21:29)
[2017-08-03] MEDS ORDERED: MAGNESIUM SULF 50% (8.12 MEQ/2 ML-1 GM VIAL) IVPB ONE (09:44)
[2017-08-03] MEDS ORDERED: MAGNESIUM OXIDE 400 MG TABLET (FP) PO ONE ×2 (09:45→13:45)
--- NOTE | 2017-08-03 09:46 | PN ---
Progress Note, Physician History of Present Illness: PT IN ICU FEELS BETTER - Current Medication List Current Medications: Active Medications Acetaminophen (Tylenol -) 650 mg PO Q6H PRN PRN Reason: BACK PAIN Albuterol Sulfate (Ventolin 0.083% Nebulizer Soln -) 1 amp NEB Q4H PRN PRN Reason: SHORT OF BREATH/WHEEZING Last Admin: 08/02/17 17:10 Dose: 1 amp Albuterol/Ipratropium (Duoneb -) 1 amp NEB RQID [facility] Last Admin: 08/02/17 21:40 Dose: 1 amp Apixaban (Eliquis -) 5 mg PO BID [facility] Last Admin: 08/03/17 09:19 Dose: 5 mg Atorvastatin Calcium (Lipitor -) 40 mg PO HS [facility] Last Admin: 08/02/17 21:52 Dose: 40 mg Budesonide/Formoterol Fumarate (Symbicort 160/4.5mcg -) 2 puff IH RBID [facility] Last Admin: 08/02/17 21:52 Dose: 2 puff Chlorhexidine Gluconate (Hibiclens For Decolonization -) 1 applic TP [facility] Last Admin: 08/02/17 21:51 Dose: 1 applic Digoxin (Lanoxin -) 0.125 mg PO DAILY [facility] Last Admin: 08/03/17 09:19 Dose: 0.125 mg Fluticasone Propionate (Flonase -) 2 spray NS DAILY [facility] Last Admin: 08/03/17 09:39 Dose: 2 sprays Furosemide (Lasix Injection -) 80 mg IVPUSH BID@0600,1400 [facility] Last Admin: 08/03/17 09:27 Dose: 80 mg Gabapentin (Neurontin -) 300 mg PO TID [facility] Last Admin: 08/03/17 06:49 Dose: 300 mg Diltiazem HCl 125 mg/ Dextrose 125 mls @ 5 mls/hr IVPB TITR [facility]; 5 MG/HR PRN Reason: Protocol Last Admin: 08/02/17 09:40 Dose: 5 mg/hr, 5 mls/hr Famotidine/Sodium Chloride (Pepcid 20 Mg Premixed Ivpb -) 20 mg in 50 mls @ 100 mls/hr IVPB BID [facility] Last Admin: 08/03/17 09:27 Dose: 100 mls/hr Insulin Aspart (Novolog Vial Sliding Scale -) 1 vial SQ ACHS [facility] PRN Reason: Protocol Last Admin: 08/03/17 06:49 Dose: Not Given Insulin Detemir (Levemir Vial) 37 units SQ BID@0700,2200 [facility] Last Admin: 08/03/17 06:50 Dose: 37 units Loratadine (Claritin -) 10 mg PO DAILY [facility] Last Admin: 08/03/17 09:26 Dose: 10 mg Magnesium Oxide (Mag-Ox -) 800 mg PO ONCE ONE Stop: 08/03/17 09:46 Last Admin: 08/03/17 09:25 Dose: 800 mg Magnesium Sulfate (Magnesium Sulfate) 2 gm IVPB ONCE ONE Stop: 08/03/17 09:45 Methylprednisolone Sodium Succinate (Solu-Medrol -) 40 mg IVPUSH Q8H-IV [facility] Last Admin: 08/03/17 09:21 Dose: 40 mg Mupirocin (Bactroban Ointment (For Decolonization) -) 1 applic NS BID [facility] Stop: 08/07/17 09:59 Last Admin: 08/03/17 09:40 Dose: 1 applic Sodium Chloride ([place] Nasal [place] -) 2 spray NS BID PRN PRN Reason: NASAL CONGESTION Tamsulosin HCl (Flomax -) 0.4 mg PO DAILY@0830 [facility] Last Admin: 08/03/17 09:20 Dose: 0.4 mg Verapamil HCl (Calan Sr -) 240 mg PO BID [facility] Last Admin: 08/03/17 09:19 Dose: 240 mg - Objective Vital Signs: Vital Signs Temperature 97.4 F L 08/03/17 06:00 Pulse Rate 93 H 08/03/17 09:19 Respiratory Rate 23 08/03/17 06:00 Blood Pressure 128/78 08/03/17 06:00 O2 Sat by Pulse Oximetry (%) 95 08/03/17 06:18 Cardiovascular: Yes: Pulse Irregular, S1, S2 Respiratory: Yes: On BiPap, Rales Gastrointestinal: Yes: Normal Bowel Sounds, Soft Edema: LLE: Trace, RLE: Trace Labs: CBC, BMP 08/03/17 06:35 08/03/17 06:35 INR, PTT INR 0.98 (0.82-1.09) 07/30/17 10:40 Problem List - Problems (1) Atrial fibrillation Assessment/Plan: -Continue CARDIZEM DRIP -AMIO -Dig -Continue Apixaban 5mg BID -ICU -CARDIO Code(s): I48.91 - UNSPECIFIED ATRIAL FIBRILLATION Qualifiers: Atrial fibrillation type: chronic Qualified Code(s): I48.2 - Chronic atrial fibrillation (2) Acute chronic obstructive pulmonary disease with respiratory distress Assessment/Plan: STEROIDS NEBS O2 Code(s): J44.9 - CHRONIC OBSTRUCTIVE PULMONARY DISEASE, UNSPECIFIED; R06.03 - ACUTE RESPIRATORY DISTRESS (3) Acute exacerbation of chronic obstructive pulmonary disease (COPD) Assessment/Plan: -pulmonary consult -bronchodilators -nasal O2 -bipap -IV steroids -ID eval Code(s): J44.1 - CHRONIC OBSTRUCTIVE PULMONARY DISEASE W (ACUTE) EXACERBATION (4) CHF exacerbation Assessment/Plan: IV LASIX MONITOR LYTES CXR CARDIOLOGY Code(s): I50.9 - HEART FAILURE, UNSPECIFIED Qualifiers: Congestive heart failure type: unspecified congestive heart failure type
--- NOTE | 2017-08-03 10:24 | EKG ---
Test Reason : Blood Pressure : / mmHG Vent. Rate : 094 BPM Atrial Rate : 129 BPM P-R Int : 000 ms QRS Dur : 098 ms QT Int : 322 ms P-R-T Axes : 000 057 093 degrees QTc Int : 402 ms ATRIAL FIBRILLATION NONSPECIFIC T WAVE ABNORMALITY ABNORMAL ECG WHEN COMPARED WITH ECG OF 02-AUG-2017 06:50, VENT. RATE HAS DECREASED BY 52 BPM Confirmed by SELVIN WATTS MD ([id number]) on 08/03/2017 10:23:56 AM Referred By: CINDY BOSCH Confirmed By:SELVIN WATTS MD
[2017-08-03] MEDS ORDERED: dilTIAZem HCL 125 MG/25 ML - 5 ML VIAL ONE (10:40)
[2017-08-03] MEDS: DILTIAZEM INJECTION 125 MG in DEXTROSE 5%-WATER - 100 ML IVPB SCH (11:10)
--- NOTE | 2017-08-03 11:28 | PN ---
Progress Note (short form) - Note Progress Note: Chief Complaint: sob History of Present Illness: remains on dilt gtt. no cp palps dizzy. sob improving ex-cigs Current Medications Generic Name Dose Route Start Last Admin Trade Name Freq PRN Reason Stop Dose Admin Acetaminophen 650 mg 08/02/17 16:51 Tylenol - PO Q6H PRN BACK PAIN Albuterol Sulfate 1 amp 08/02/17 16:51 08/02/17 17:10 Ventolin 0.083% Nebulizer Soln - NEB 1 amp Q4H PRN Administration SHORT OF BREATH/WHEEZING Albuterol/Ipratropium 1 amp 08/02/17 20:00 08/03/17 08:30 Duoneb - NEB 1 amp RQID ARVIND Administration Apixaban 5 mg 08/02/17 22:00 08/03/17 09:19 Eliquis - PO 5 mg BID ARVIND Administration Atorvastatin Calcium 40 mg 08/02/17 22:00 08/02/17 21:52 Lipitor - PO 40 mg HS ARVIND Administration Budesonide/Formoterol Fumarate 2 puff 08/02/17 20:00 08/02/17 21:52 Symbicort 160/4.5mcg - IH 2 puff RBID ARVIND Administration Chlorhexidine Gluconate 1 applic 08/02/17 22:00 08/02/17 21:51 Hibiclens For Decolonization - TP 1 applic HS ARVIND Administration Digoxin 0.125 mg 08/02/17 10:00 08/03/17 09:19 Lanoxin - PO 0.125 mg DAILY ARVIND Administration Fluticasone Propionate 2 spray 08/03/17 10:00 08/03/17 09:39 Flonase - NS 2 sprays DAILY ARVIND Administration Furosemide 80 mg 08/03/17 06:00 08/03/17 09:27 Lasix Injection - IVPUSH 80 mg BID@0600,1400 ARVIND Administration Gabapentin 300 mg 08/02/17 22:00 08/03/17 06:49 Neurontin - PO 300 mg TID ARVIND Administration Diltiazem HCl 125 mg/ Dextrose 125 mls @ 5 mls/hr 08/02/17 16:51 08/03/17 11: 10 IVPB 10 mg/hr TITR ARVIND 10 mls/hr Protocol Administration 5 MG/HR Famotidine/Sodium Chloride 20 mg in 50 mls @ 100 mls/hr 08/02/17 22:00 09:27 Pepcid 20 Mg Premixed Ivpb - IVPB 100 mls/hr BID ARVIND Administration MAGNESIUM SULFATE IN WATER 2 gm in 50 mls @ 50 mls/hr 08/03/17 11:30 Magnesium Sulf 2 G/50 Ml Bag IVPB 08/03/17 12:29 ONCE ONE Insulin Aspart 1 vial 08/02/17 22:00 08/03/17 06:49 Novolog Vial Sliding Scale - SQ Not Given ACHS [facility] Protocol Insulin Detemir 37 units 08/02/17 22:00 08/03/17 06:50 Levemir Vial SQ 37 units BID@0700,2200 ARVIND Administration Loratadine 10 mg 08/03/17 10:00 08/03/17 09:26 Claritin - PO 10 mg DAILY ARVIND Administration Methylprednisolone Sodium Succinate 40 mg 08/02/17 10:00 08/03/17 09:21 Solu-Medrol - IVPUSH 40 mg Q8H-IV ARVIND Administration Mupirocin 1 applic 08/02/17 10:00 08/03/17 09:40 Bactroban Ointment (For Decolonization) - NS 08/07/17 09:59 1 applic BID ARVIND Administration Sodium Chloride 2 spray 08/02/17 16:51 [place] Nasal [place] - NS BID PRN NASAL CONGESTION Tamsulosin HCl 0.4 mg 08/03/17 08:30 08/03/17 09:20 Flomax - PO 0.4 mg DAILY@0830 ARVIND Administration Verapamil HCl 240 mg 08/02/17 22:00 08/03/17 09:19 Calan Sr - PO 240 mg BID ARVIND Administration - Objective Vital Signs: Vital Signs Temp 98.4 F 08/03/17 10:00 Pulse 88 08/03/17 11:10 Resp 20 08/03/17 10:00 BP 110/77 08/03/17 11:10 Pulse Ox 92 L 08/03/17 08:30 Intake & Output 08/02/17 08/02/17 08/03/17 11:59 23:59 11:59 Intake Total 240 530 Output Total 3000 600 600 Balance -2760 -600 -70 Intake: IV 230 Cardizem Injection - 125 180 mg In D5w - 100 ml @ 5 MG /HR 5 mls/hr IVPB TITR ARVIND Rx#:[id number] PEPCID 20 MG/12 ML PUSH 50 20 mg In 12 ml @ 144 mls/ hr IVPUSH BID ARVIND Rx#: [id number] Oral 240 300 Output: Urine 3000 600 600 Matehws 1000 600 600 Void 2000 Other: Voiding Method Indwelling Catheter Indwelling Catheter Bowel Movement Yes # Bowel Movements 1 Constitutional: Yes: uncomfortable, vomiting. Obese Eyes: No: Sclera Icterus HENT: No: Nasal Congestion Cardiovascular: Yes: Pulse Irregular (soft heart sounds), S1, S2, Other (PMI non diplaced). No: JVD (very tds habitus plus bipap mask), Gallop, Murmur Respiratory: Yes: diminished air movment, Rhonchi, Wheezes. No: Accessory Muscle Use, Rales Gastrointestinal: Yes: Normal Bowel Sounds, Soft. No: Tenderness Extremities: No: Cold Edema: Yes ( trace pretib) Integumentary: No: Jaundice diaphoresis Neurological: Yes: Alert, Oriented (x3) Psychiatric: No: Agitated Labs: Laboratory Last Values WBC 7.4 K/mm3 (4.0-10.0) 08/03/17 06:35 RBC 4.70 M/mm3 (4.00-5.60) 08/03/17 06:35 Hgb 12.5 GM/dL (11.7-16.9) 08/03/17 06:35 Hct 40.1 % (35.4-49) 08/03/17 06:35 MCV 85.4 fl (80-96) 08/03/17 06:35 MCH 26.6 pg (25.7-33.7) 08/03/17 06:35 MCHC 31.2 g/dl (32.0-35.9) L 08/03/17 06:35 RDW 21.5 % (11.9-15.9) H 08/03/17 06:35 Plt Count 291 K/MM3 (134-434) 08/03/17 06:35 MPV 8.2 fl (7.5-11.1) 08/03/17 06:35 Total Counted 100 08/02/17 06:00 Neutrophils % 93.1 % (42.8-82.8) H 08/03/17 06:35 Neutrophils % (Manual) 82.0 % (42.8-82.8) 08/02/17 06:00 Band Neutrophils % 11.0 % 08/02/17 06:00 Lymphocytes % 3.0 % (8-40) L D 08/03/17 06:35 Lymphocytes % (Manual) 2.0 % (8-40) L D 08/02/17 06:00 Monocytes % 3.7 % (3.8-10.2) L 08/03/17 06:35 Monocytes % (Manual) 5 % (3.8-10.2) 08/02/17 06:00 Eosinophils % 0.1 % (0-4.5) D 08/03/17 06:35 Basophils % 0.1 % (0-2.0) 08/03/17 06:35 Anisocytosis 2+ 08/02/17 06:00 PT with INR 11.10 SEC (9.98-11.88) 07/30/17 10:40 INR 0.98 (0.82-1.09) 07/30/17 10:40 VBG pH 7.36 (7.32-7.42) 07/30/17 11:00 POC VBG pCO2 55.3 mmHg (38-52) H D 07/30/17 11:00 POC VBG pO2 42.3 mmHg (28-48) D 07/30/17 11:00 Mixed VBG HCO3 30.7 meq/L (19-25) H 07/30/17 11:00 Sodium 140 mmol/L (136-145) 08/03/17 06:35 Potassium 4.1 mmol/L (3.5-5.1) 08/03/17 06:35 Chloride 101 mmol/L (98-107) 08/03/17 06:35 Carbon Dioxide 32 mmol/L (21-32) 08/03/17 06:35 Anion Gap 7 (8-16) L 08/03/17 06:35 BUN 25 mg/dL (7-18) H D 08/03/17 06:35 Creatinine 0.8 mg/dL (0.7-1.3) 08/03/17 06:35 Creat Clearance w eGFR > 60 (>60) 08/03/17 06:35 POC Glucometer 290.20909 UNITS (80-120) 08/02/17 21:43 Random Glucose 162 mg/dL (74-106) H 08/03/17 06:35 Hemoglobin A1c % 11.1 % (4.8-6.0) H D 08/01/17 05:35 Calcium 8.1 mg/dL (8.5-10.1) L 08/03/17 06:35 Magnesium 1.7 mg/dL (1.8-2.4) L 08/03/17 06:35 Total Bilirubin 0.6 mg/dL (0.2-1.0) 08/03/17 06:35 AST 21 U/L (15-37) D 08/03/17 06:35 ALT 54 U/L (12-78) 08/03/17 06:35 Alkaline Phosphatase 69 U/L (45-117) D 08/03/17 06:35 Creatine Kinase 55 IU/L (39-308) 08/03/17 06:35 Troponin I < 0.02 ng/ml (0.00-0.05) 08/03/17 06:35 B-Natriuretic Peptide 184.13 pg/ml (5-125) H 07/30/17 10:40 Total Protein 5.7 g/dl (6.4-8.2) L 08/03/17 06:35 Albumin 2.6 g/dl (3.4-5.0) L 08/03/17 06:35 TSH Cancelled 08/03/17 06:35 Free T4 1.03 ng/dl (0.76-1.16) 08/03/17 06:35 Digoxin 0.9070 ng/ml (0.8-2.0) 08/03/17 06:35 Blood Type O POSITIVE 07/30/17 11:00 Antibody Screen Negative 07/30/17 11:00 - ....Imaging EKG: Other (tele: afib, vr acceptable) echo 07/2016: Nl lv/rv. 1+ AR mibi 12/2012: small posterior ischemia vs artifact, nl lvef, no tid cxr: incr markings at bases c/w atx vs early infiltrate a/p: 72 yo male with h/o AFib s/p prior DCCV 12/2015 to SR on AC, HTN, HL, dchf , PVCs with palpitations, morbid obesity, NATHANIEL on bipap, severe COPD, here with sob. a.e. copd: - copd/nathaniel tx per pulm acute on chronic diastolic chf: - previous admits, wt up to 340s-350s when decomp chf, with signif incr LE edema - d/c wt 04/26 was 324. and was 315 when left here 07/28, then back up to 327 when back with a.e. copd 07/28. - 07/28 copd admit with marked pedal edema treated with lasix 80 iv bid--d/c wt 314. sent out on lasix 40 po bid. - marked weakness with activity at home, cxr with fluid in fissure, ? effusions on image review--pulmonary team does not suspect a.e. copd or PNA - BNP 180 (prior range 90-300). phys exam prohibitively TDS for volume assessment, and cannot get standing wts until pt moves from ICU to tele bed. - 08/01 no standing weight done here (ordered today). incr lasix from 40 iv bid to 80 iv bid. - 08/02-: bmp stable on increased IV lasix, con't. - monitor daily labs. weights, i/o's - he resists taking lasix bid at home due to freq urinating. should go home on 80 qd this time paroxysmal AF/flutter -cont eliquis for AC -new dx 2015--req'd amio for HR control then (now off due to severe lung dz), s/ p successful DCCV 12/24, then reverted to afib -defer AVN ablation/PPM unless future signs of HF being driven by rapid HRs (to date thus far, his AF rates are well-controlled at office, and only rapid sec to acute copd). -avoiding BB given severe bronchospasm/copd; would like to avoid long-term amio for same reason -on outpatient regimen here, verapamil 240 bid, and dig (level good here). monitor tele -rate typically becomes elevated in settings of respiratory distress and often improves with bipap therapy. - 08/02: K 3.7 and mg 1.6 this am. + recurrent nausea/vomiting this morning --> RVR to 140's . Given 150 IV amio. 0.25 digoxin IV x 1. Given a total of 25 mg of IV dilt and started on diltiazem drip. -08/03: hr controlled. cont dig and verapamil. titrate off dilt gtt. hld: -continue home statin htn: -stable on current meds possible cad: -pt had borderline positive mibi in 2012 vs soft tissue attenuation artifact -never had angina sx's -ECG nonsp ST-T no signif change vs prior. trop neg x2. no anginal sx's -continue medical management with statin, AC without ASA
[2017-08-03] MEDS ORDERED: MAGNESIUM SULFATE IN WATER 2 GM/50 ML IVPB IVPB ONE (11:30)
[2017-08-03] MEDS: BUDESONIDE/FORMETEROL FUMARATE 160/4.5 mcg INHALER IH SCH ×2 (12:00→21:30)
[2017-08-03 12:03] LABS: N-TERMINAL BNP 122.55 pg/ml (5-125)
[2017-08-03] MEDS ORDERED: INSULIN (NOVOLOG) ASPART 100 UNITS/ML 10ML VIAL ONE (12:14)
--- NOTE | 2017-08-03 12:24 | PN ---
Progress Note, Physician History of Present Illness: feeling better today denies chest pain, cough, headache, abd pain, dysuria - Current Medication List Current Medications: Active Medications Acetaminophen (Tylenol -) 650 mg PO Q6H PRN PRN Reason: BACK PAIN Albuterol Sulfate (Ventolin 0.083% Nebulizer Soln -) 1 amp NEB Q4H PRN PRN Reason: SHORT OF BREATH/WHEEZING Last Admin: 08/02/17 17:10 Dose: 1 amp Albuterol/Ipratropium (Duoneb -) 1 amp NEB RQID [facility] Last Admin: 08/03/17 11:29 Dose: 1 amp Apixaban (Eliquis -) 5 mg PO BID [facility] Last Admin: 08/03/17 09:19 Dose: 5 mg Atorvastatin Calcium (Lipitor -) 40 mg PO HS [facility] Last Admin: 08/02/17 21:52 Dose: 40 mg Budesonide/Formoterol Fumarate (Symbicort 160/4.5mcg -) 2 puff IH RBID [facility] Last Admin: 08/03/17 12:00 Dose: 2 puff Chlorhexidine Gluconate (Hibiclens For Decolonization -) 1 applic TP HS [facility] Last Admin: 08/02/17 21:51 Dose: 1 applic Digoxin (Lanoxin -) 0.125 mg PO DAILY [facility] Last Admin: 08/03/17 09:19 Dose: 0.125 mg Fluticasone Propionate (Flonase -) 2 spray NS DAILY [facility] Last Admin: 08/03/17 09:39 Dose: 2 sprays Furosemide (Lasix Injection -) 80 mg IVPUSH BID@0600,1400 [facility] Last Admin: 08/03/17 09:27 Dose: 80 mg Gabapentin (Neurontin -) 300 mg PO TID [facility] Last Admin: 08/03/17 06:49 Dose: 300 mg Diltiazem HCl 125 mg/ Dextrose 125 mls @ 5 mls/hr IVPB TITR ARVIND; 5 MG/HR PRN Reason: Protocol Last Admin: 08/03/17 11:10 Dose: 10 mg/hr, 10 mls/hr Famotidine/Sodium Chloride (Pepcid 20 Mg Premixed Ivpb -) 20 mg in 50 mls @ 100 mls/hr IVPB BID [facility] Last Admin: 08/03/17 09:27 Dose: 100 mls/hr MAGNESIUM SULFATE IN WATER (Magnesium Sulf 2 G/50 Ml Bag) 2 gm in 50 mls @ 50 mls/hr IVPB ONCE ONE Stop: 08/03/17 12:29 Insulin Aspart (Novolog Vial Sliding Scale -) 1 vial SQ ACHS [facility] PRN Reason: Protocol Last Admin: 08/03/17 12:00 Dose: 6 units Insulin Detemir (Levemir Vial) 37 units SQ BID@0700,2200 [facility] Last Admin: 08/03/17 06:50 Dose: 37 units Loratadine (Claritin -) 10 mg PO DAILY [facility] Last Admin: 08/03/17 09:26 Dose: 10 mg Methylprednisolone Sodium Succinate (Solu-Medrol -) 40 mg IVPUSH Q8H-IV [facility] Last Admin: 08/03/17 09:21 Dose: 40 mg Mupirocin (Bactroban Ointment (For Decolonization) -) 1 applic NS BID [facility] Stop: 08/07/17 09:59 Last Admin: 08/03/17 09:40 Dose: 1 applic Sodium Chloride ([place] Nasal [place] -) 2 spray NS BID PRN PRN Reason: NASAL CONGESTION Tamsulosin HCl (Flomax -) 0.4 mg PO DAILY@0830 [facility] Last Admin: 08/03/17 09:20 Dose: 0.4 mg Verapamil HCl (Calan Sr -) 240 mg PO BID [facility] Last Admin: 08/03/17 09:19 Dose: 240 mg - Objective Vital Signs: Vital Signs Temperature 98.4 F 08/03/17 10:00 Pulse Rate 88 08/03/17 11:10 Respiratory Rate 20 08/03/17 10:00 Blood Pressure 110/77 08/03/17 11:10 O2 Sat by Pulse Oximetry (%) 91 L 08/03/17 11:28 Constitutional: Yes: No Distress, Calm Eyes: Yes: Conjunctiva Clear, EOM Intact HENT: Yes: Atraumatic, Normocephalic Neck: Yes: Supple, Trachea Midline Cardiovascular: Yes: Tachycardia, Pulse Irregular Respiratory: Yes: Regular, CTA Bilaterally Gastrointestinal: Yes: Normal Bowel Sounds, Soft Edema: No Peripheral Pulses WNL: Yes Neurological: Yes: Alert, Oriented Labs: CBC, BMP 08/03/17 06:35 08/03/17 06:35 INR, PTT INR 0.98 (0.82-1.09) 07/30/17 10:40 Assessment/Plan 72 am with AFIB on eliquis, CHF, HTN, HLD, COPD O2 Dependent, Pneumonia, Sleep Apnea, GERD, renal insufficiency, admitted to the ICU for tx of RVR afib with cardizem drip. CV consult: Dr. Jane carmona afib, improved/acut on chronic diastolic CHF/HTN - titrate cardizem drip off while adding po cardizem 60mg po Q6hr - verapamil 240mg po BID po - dig 0.125mg po daily - lasix 80mg IVpush BID - eliquid BID HLD - continue statin RESP acute on chronic COPD, acute on chronic hypoxic and hypercapneic respiratory failure, LUCY - bipap prn - solumedrol 40mg ivpush q8hr - symbicort, flonase, duoneb, claritin, ventolin, ENDO #Diabetes Mellitus -continue levemir 37 BID -continue ISS, BGM FEN/GI -Replete electrolytes PRN carefully, will monitor PPX on eliquis and famotadine Dispo: continue ICU level of care
[2017-08-03] MEDS ORDERED: DILTIAZEM INJECTION 125 MG in DEXTROSE 5%-WATER - 100 ML IVPB SCH (12:30)
--- NOTE | 2017-08-03 14:47 | PN ---
Teaching Attending Note Name of Resident: Etta Michaud ATTENDING PHYSICIAN STATEMENT I saw and evaluated the patient. I reviewed the resident's note and discussed the case with the resident. I agree with the resident's findings and plan as documented. SUBJECTIVE: Pt seen and examined in the ICU. Remains on BiPAP and cardizem gtt with better heart rate control. States breathing is better today but still dependent on BiPAP. OBJECTIVE: Last Vital Signs Temp Pulse Resp BP Pulse Ox 98.4 F 88 20 110/77 91 L 08/03/17 10:00 08/03/17 11:10 08/03/17 10:00 08/03/17 11:10 08/03/17 11:28 Intake & Output 07/31/17 08/01/17 08/02/17 08/03/17 23:59 23:59 23:59 23:59 Intake Total 480 240 530 Output Total 800 2800 3600 600 Balance -800 -2320 -3360 -70 Weight 148.325 kg Gen: tachypneic on BiPAP Heart: irregular Lung: basilar rales, rhonchi Abd: soft, nontender Ext: + edema CBC, BMP 08/03/17 06:35 08/03/17 06:35 Active Medications Acetaminophen (Tylenol -) 650 mg PO Q6H PRN PRN Reason: BACK PAIN Albuterol Sulfate (Ventolin 0.083% Nebulizer Soln -) 1 amp NEB Q4H PRN PRN Reason: SHORT OF BREATH/WHEEZING Last Admin: 08/02/17 17:10 Dose: 1 amp Albuterol/Ipratropium (Duoneb -) 1 amp NEB RQID [facility] Last Admin: 08/03/17 11:29 Dose: 1 amp Apixaban (Eliquis -) 5 mg PO BID [facility] Last Admin: 08/03/17 09:19 Dose: 5 mg Atorvastatin Calcium (Lipitor -) 40 mg PO [facility] Last Admin: 08/02/17 21:52 Dose: 40 mg Budesonide/Formoterol Fumarate (Symbicort 160/4.5mcg -) 2 puff IH RBID [facility] Last Admin: 08/03/17 12:00 Dose: 2 puff Chlorhexidine Gluconate (Hibiclens For Decolonization -) 1 applic TP [facility] Last Admin: 08/02/17 21:51 Dose: 1 applic Digoxin (Lanoxin -) 0.125 mg PO DAILY [facility] Last Admin: 08/03/17 09:19 Dose: 0.125 mg Diltiazem HCl (Cardizem -) 60 mg PO Q6HPO [facility] Fluticasone Propionate (Flonase -) 2 spray NS DAILY [facility] Last Admin: 08/03/17 09:39 Dose: 2 sprays Furosemide (Lasix Injection -) 80 mg IVPUSH BID@0600,1400 [facility] Last Admin: 08/03/17 14:29 Dose: 80 mg Gabapentin (Neurontin -) 300 mg PO TID [facility] Last Admin: 08/03/17 14:29 Dose: 300 mg Famotidine/Sodium Chloride (Pepcid 20 Mg Premixed Ivpb -) 20 mg in 50 mls @ 100 mls/hr IVPB BID [facility] Last Admin: 08/03/17 09:27 Dose: 100 mls/hr Diltiazem HCl 125 mg/ Dextrose 125 mls @ 5 mls/hr IVPB TITR ARVIND; 5 MG/HR PRN Reason: Protocol Last Admin: 08/03/17 12:00 Dose: 5 mg/hr, 5 mls/hr Insulin Aspart (Novolog Vial Sliding Scale -) 1 vial SQ ACHS [facility] PRN Reason: Protocol Last Admin: 08/03/17 12:00 Dose: 6 units Insulin Detemir (Levemir Vial) 37 units SQ BID@0700,2200 [facility] Last Admin: 08/03/17 06:50 Dose: 37 units Loratadine (Claritin -) 10 mg PO DAILY [facility] Last Admin: 08/03/17 09:26 Dose: 10 mg Methylprednisolone Sodium Succinate (Solu-Medrol -) 40 mg IVPUSH Q8H-IV [facility] Last Admin: 08/03/17 09:21 Dose: 40 mg Mupirocin (Bactroban Ointment (For Decolonization) -) 1 applic NS BID [facility] Stop: 08/07/17 09:59 Last Admin: 08/03/17 09:40 Dose: 1 applic Sodium Chloride ([place] Nasal [place] -) 2 spray NS BID PRN PRN Reason: NASAL CONGESTION Tamsulosin HCl (Flomax -) 0.4 mg PO DAILY@0830 [facility] Last Admin: 08/03/17 09:20 Dose: 0.4 mg Verapamil HCl (Calan Sr -) 240 mg PO BID [facility] Last Admin: 08/03/17 09:19 Dose: 240 mg ASSESSMENT AND PLAN: Atrial Fibrillation with RVR Acute on Chronic Diastolic Heart Failure Acute COPD Exacerbation Acute on Chronic Hypoxic and Hypercapneic Respiratory Failure HTN Hypercholesterolemia Morbid Obesity LUCY - titrate up PO meds, taper off cardizem gtt - continue IV lasix - monitor urine output, creatinine - daily weights, I/Os - continue anticoagulation - continue IV medrol - inhaled bronchodilators - O2 to keep Spo2 >88% - BiPAP at night and PRN during day - continue ICU monitoring for tenuous respiratory status critical care time spent reviewing chart, evaluating patient and formulating plan 35 min
[2017-08-03] MEDS: dilTIAZem HCL 60 MG TABLET (FP) PO SCH (17:40)
[2017-08-03] MEDS: CHLORHEXIDINE GLUCONATE 4% CLEANSER FOR DECOLONIZATION TP SCH (21:28)
[2017-08-03] MEDS: ATORVASTATIN CA 40 MG TABLET (FP) PO SCH (21:28)
[2017-08-04] MEDS: dilTIAZem HCL 60 MG TABLET (FP) PO SCH ×3 (00:35→11:23)
[2017-08-04] MEDS: methylPREDNISolone NA SUCC 40 MG/1 ML VIAL IVPUSH SCH ×3 (01:36→18:02)
[2017-08-04] MEDS: INSULIN SLIDING SCALE (NOVOLOG) 1 VIAL SQ SCH ×4 (06:35→21:44)
[2017-08-04] MEDS: GABAPENTIN 300 MG CAPSULE (FP) PO SCH ×3 (06:35→21:40)
[2017-08-04] MEDS: INSULIN DETEMIR 100 UNITS/ML MDV SQ SCH ×2 (06:36→21:57)
[2017-08-04] MEDS: FUROSEMIDE 40 MG/4 ML INJECTABLE VIAL IVPUSH SCH ×3 (06:38→16:11)
[2017-08-04 07:18] LABS: CHLORIDE 99 mmol/L (98-107); POTASSIUM 3.9 mmol/L (3.5-5.1); SODIUM 142 mmol/L (136-145)
[2017-08-04 07:26] LABS: ALBUMIN 2.5 g/dl (3.4-5.0); ALK PHOS 67 U/L (45-117); ANION GAP 9 (8-16); BILIRUBIN,TOTAL 0.7 mg/dL (0.2-1.0); BLOOD UREA NITROGEN 25 mg/dL (7-18); CALCIUM 8.1 mg/dL (8.5-10.1); CO2 34 mmol/L (21-32); CREATININE 0.9 mg/dL (0.7-1.3); GLUCOSE,RANDOM 159 mg/dL (74-106); MAGNESIUM 2.7 mg/dL (1.8-2.4); SGOT/AST 17 U/L (15-37); SGPT/ALT 50 U/L (12-78); TOT PROT 5.7 g/dl (6.4-8.2)
[2017-08-04] MEDS: ALBUTEROL SO4 2.5/IPRATROPIUM 0.5 INH SOL 3 ML VIAL.NEB. NEB SCH ×4 (07:30→20:00)
[2017-08-04 08:06] LABS: BASO % 0.2 % (0-2.0); HEMATOCRIT 39.1 % (35.4-49); HEMOGLOBIN 12.3 GM/dL (11.7-16.9); LYMPH % 3.1 % (8-40); MCH 26.6 pg (25.7-33.7); MCHC 31.4 g/dl (32.0-35.9); MEAN CELL VOLUME 84.6 fl (80-96); MEAN PLT VOLUME 8.2 fl (7.5-11.1); MONO % 4.8 % (3.8-10.2); NEUT % 91.9 % (42.8-82.8); PLATELET COUNT 313 K/MM3 (134-434); RBC 4.63 M/mm3 (4.00-5.60); RDW 21.2 % (11.9-15.9); WHITE BLOOD COUNT 9.2 K/mm3 (4.0-10.0)
[2017-08-04] MEDS: FAMOTIDINE 20 MG/50 ML IVPB 20 MG/50 ML MG IVPB SCH ×2 (09:10→21:40)
[2017-08-04] MEDS: BUDESONIDE/FORMETEROL FUMARATE 160/4.5 mcg INHALER IH SCH ×2 (09:10→21:41)
[2017-08-04] MEDS: FLUTICASONE PROP 0.05% 16 GM NASAL SPRAY NS SCH (09:10)
[2017-08-04] MEDS: LORATADINE 10 MG TABLET PO SCH (09:11)
[2017-08-04] MEDS: TAMSULOSIN HCL 0.4 MG CAP.ER.24H (FP) PO SCH (09:11)
[2017-08-04] MEDS: DIGOXIN 0.125 MG TABLET (FP) PO SCH (09:11)
[2017-08-04] MEDS: MUPIROCIN 2% TOPICAL OINTMENT FOR DECOLONIZATION NS SCH (09:29)
--- NOTE | 2017-08-04 10:36 | PN ---
Progress Note, Physician Chief Complaint: patient seen and examined today on nasal canula says his breathing is slightly better uses bipap at night cardizem drip off now on po cardizem - Current Medication List Current Medications: Active Medications Acetaminophen (Tylenol -) 650 mg PO Q6H PRN PRN Reason: BACK PAIN Albuterol Sulfate (Ventolin 0.083% Nebulizer Soln -) 1 amp NEB Q4H PRN PRN Reason: SHORT OF BREATH/WHEEZING Last Admin: 08/02/17 17:10 Dose: 1 amp Albuterol/Ipratropium (Duoneb -) 1 amp NEB RQID [facility] Last Admin: 08/04/17 07:30 Dose: 1 amp Apixaban (Eliquis -) 5 mg PO BID [facility] Last Admin: 08/03/17 21:29 Dose: 5 mg Atorvastatin Calcium (Lipitor -) 40 mg PO HS [facility] Last Admin: 08/03/17 21:28 Dose: 40 mg Budesonide/Formoterol Fumarate (Symbicort 160/4.5mcg -) 2 puff IH RBID [facility] Last Admin: 08/04/17 09:10 Dose: 2 puff Chlorhexidine Gluconate (Hibiclens For Decolonization -) 1 applic TP [facility] Last Admin: 08/03/17 21:28 Dose: 1 applic Digoxin (Lanoxin -) 0.125 mg PO DAILY [facility] Last Admin: 08/04/17 09:11 Dose: 0.125 mg Diltiazem HCl (Cardizem -) 60 mg PO Q6HPO [facility] Last Admin: 08/04/17 06:35 Dose: 60 mg Fluticasone Propionate (Flonase -) 2 spray NS DAILY [facility] Last Admin: 08/04/17 09:10 Dose: 2 sprays Furosemide (Lasix Injection -) 80 mg IVPUSH BID@1000,1600 [facility] Last Admin: 08/04/17 09:10 Dose: 80 mg Gabapentin (Neurontin -) 300 mg PO TID [facility] Last Admin: 08/04/17 06:35 Dose: 300 mg Famotidine/Sodium Chloride (Pepcid 20 Mg Premixed Ivpb -) 20 mg in 50 mls @ 100 mls/hr IVPB BID [facility] Last Admin: 08/04/17 09:10 Dose: 100 mls/hr Diltiazem HCl 125 mg/ Dextrose 125 mls @ 5 mls/hr IVPB TITR [facility]VIND; 5 MG/HR PRN Reason: Protocol Last Titration: 08/03/17 19:00 Dose: 0 mg/hr, 0 mls/hr Insulin Aspart (Novolog Vial Sliding Scale -) 1 vial SQ ACHS [facility] PRN Reason: Protocol Last Admin: 08/04/17 06:35 Dose: Not Given Insulin Detemir (Levemir Vial) 37 units SQ BID@0700,2200 [facility] Last Admin: 08/04/17 06:36 Dose: 37 units Loratadine (Claritin -) 10 mg PO DAILY [facility] Last Admin: 08/04/17 09:11 Dose: 10 mg Methylprednisolone Sodium Succinate (Solu-Medrol -) 40 mg IVPUSH Q8H-IV [facility] Last Admin: 08/04/17 09:10 Dose: 40 mg Mupirocin (Bactroban Ointment (For Decolonization) -) 1 applic NS BID [facility] Stop: 08/07/17 09:59 Last Admin: 08/04/17 09:29 Dose: 1 applic Sodium Chloride ([place] Nasal [place] -) 2 spray NS BID PRN PRN Reason: NASAL CONGESTION Tamsulosin HCl (Flomax -) 0.4 mg PO DAILY@0830 [facility] Last Admin: 08/04/17 09:11 Dose: 0.4 mg Verapamil HCl (Calan Sr -) 240 mg PO BID [facility] Last Admin: 08/03/17 21:29 Dose: 240 mg - Objective Vital Signs: Vital Signs Temperature 97.9 F 08/04/17 02:00 Pulse Rate 85 08/04/17 09:11 Respiratory Rate 16 08/04/17 08:00 Blood Pressure 103/68 08/04/17 08:00 O2 Sat by Pulse Oximetry (%) 93 L 08/04/17 09:10 Constitutional: Yes: Calm Cardiovascular: Yes: Pulse Irregular, S1, S2 Respiratory: Yes: On Nasal O2, Rhonchi (scattered), Wheezes Gastrointestinal: Yes: Normal Bowel Sounds, Soft Edema: Yes (improving) Neurological: Yes: Alert, Oriented Labs: CBC, BMP 08/04/17 05:30 08/04/17 05:30 INR, PTT INR 0.98 (0.82-1.09) 07/30/17 10:40 Problem List - Problems (1) Acute CHF Assessment/Plan: acute on chronic CHF on iv lasix leg edema is decreasing renal function is ok Code(s): I50.9 - HEART FAILURE, UNSPECIFIED Qualifiers: Congestive heart failure type: systolic Qualified Code(s): I50.21 - Acute systolic (congestive) heart failure (2) Atrial fibrillation Assessment/Plan: eliquis BID dig and verampamil on cardizem po Code(s): I48.91 - UNSPECIFIED ATRIAL FIBRILLATION Qualifiers: Atrial fibrillation type: chronic Qualified Code(s): I48.2 - Chronic atrial fibrillation (3) COPD (chronic obstructive pulmonary disease) Assessment/Plan: prednsione taper iv medrol bronchodilators bipap at night oxygen via [place] Code(s): J44.9 - CHRONIC OBSTRUCTIVE PULMONARY DISEASE, UNSPECIFIED Qualifiers: COPD type: unspecified COPD Qualified Code(s): J44.9 - Chronic obstructive pulmonary disease, unspecified (4) Diabetes mellitus Assessment/Plan: bgm hgba1c noted metofrmin and januvia -stopped levemir prednisone taper Code(s): E11.9 - TYPE 2 DIABETES MELLITUS WITHOUT COMPLICATIONS Qualifiers: Diabetes mellitus type: type 2
[2017-08-04] MEDS ORDERED: PT OWN MED DRAWER 7, Y5N ONE (10:47)
[2017-08-04] MEDS: VERAPAMIL HCL 240 MG E.R. TABLET (FP) PO SCH ×2 (11:14→21:39)
[2017-08-04] MEDS: APIXABAN 5 MG TABLET PO SCH ×2 (11:14→21:40)
--- NOTE | 2017-08-04 12:00 | PN ---
Physical Exam: SUBJECTIVE: Patient seen and examined The patient is a 72 year old male with a history of afib, chf, HTN, HLD, pulmonary hypertension, COPD, GERD, renal insuffiancy, morbid obesity who was admitted for SOB and acute CHF exacerbation transferred to the ICU for afib with RVR. Patient reports significant improvement in his symptoms. Complains of some diarrhea, but denies any abdominal pain. Otherwise no acute events overnight. OBJECTIVE: Vital Signs Period Temp Pulse Resp BP Sys/Park Pulse Ox Last 24 Hr 97.9 F-98.7 F 83-125 16-29 97-150/67-91 88-93 GENERAL: The patient is awake, alert, and fully oriented, in no acute distress. HEAD: Normal with no signs of trauma. EYES: sclera anicteric, conjunctiva clear. No ptosis. ENT: oropharynx clear without exudates, moist mucous membranes. NECK: Trachea midline, full range of motion, supple. LUNGS: Breath sounds equal, clear to auscultation bilaterally, no wheezes, no crackles, no accessory muscle use. HEART: Regular rate and rhythm, S1, S2 without murmur, rub or gallop. ABDOMEN: Soft, nontender, nondistended, normoactive bowel sounds, no guarding, no rebound, no hepatosplenomegaly, no masses. EXTREMITIES: 2+ pulses, warm, well-perfused, NEUROLOGICAL: Normal speech, gait not observed. PSYCH: Normal mood, normal affect. SKIN: Warm, dry, normal turgor, no rashes or lesions noted Laboratory Results - last 24 hr 08/03/17 08/03/17 08/03/17 06:15 06:35 10:45 WBC RBC Hgb Hct MCV MCH MCHC RDW Plt Count MPV Neutrophils % Lymphocytes % Monocytes % Eosinophils % Basophils % Sodium Potassium Chloride Carbon Dioxide Anion Gap BUN Creatinine Creat Clearance w eGFR POC Glucometer [phone] Random Glucose Calcium Magnesium Total Bilirubin AST ALT Alkaline Phosphatase Creatine Kinase 89 Troponin I < 0.02 B-Natriuretic Peptide 122.55 Total Protein Albumin TSH 0.12 L D 08/03/17 08/03/17 08/03/17 12:11 16:58 21:24 WBC RBC Hgb Hct MCV MCH MCHC RDW Plt Count MPV Neutrophils % Lymphocytes % Monocytes % Eosinophils % Basophils % Sodium Potassium Chloride Carbon Dioxide Anion Gap BUN Creatinine Creat Clearance w eGFR POC Glucometer 228.05184 195.23365 235.47008 Random Glucose Calcium Magnesium Total Bilirubin AST ALT Alkaline Phosphatase Creatine Kinase Troponin I B-Natriuretic Peptide Total Protein Albumin TSH 08/04/17 08/04/17 08/04/17 05:30 05:30 05:43 WBC 9.2 RBC 4.63 Hgb 12.3 Hct 39.1 MCV 84.6 MCH 26.6 MCHC 31.4 L RDW 21.2 H Plt Count 313 MPV 8.2 Neutrophils % 91.9 H Lymphocytes % 3.1 L Monocytes % 4.8 Eosinophils % 0.0 D Basophils % 0.2 Sodium 142 Potassium 3.9 Chloride 99 Carbon Dioxide 34 H Anion Gap 9 BUN 25 H Creatinine 0.9 Creat Clearance w eGFR > 60 POC Glucometer [phone] Random Glucose 159 H Calcium 8.1 L Magnesium 2.7 H D Total Bilirubin 0.7 AST 17 ALT 50 Alkaline Phosphatase 67 Creatine Kinase Troponin I B-Natriuretic Peptide Total Protein 5.7 L Albumin 2.5 L TSH 08/04/17 11:17 WBC RBC Hgb Hct MCV MCH MCHC RDW Plt Count MPV Neutrophils % Lymphocytes % Monocytes % Eosinophils % Basophils % Sodium Potassium Chloride Carbon Dioxide Anion Gap BUN Creatinine Creat Clearance w eGFR POC Glucometer [phone] Random Glucose Calcium Magnesium Total Bilirubin AST ALT Alkaline Phosphatase Creatine Kinase Troponin I B-Natriuretic Peptide Total Protein Albumin TSH Active Medications Generic Name Dose Route Start Last Admin Trade Name Freq PRN Reason Stop Dose Admin Acetaminophen 650 mg 08/02/17 16:51 Tylenol - PO Q6H PRN BACK PAIN Albuterol Sulfate 1 amp 08/02/17 16:51 08/02/17 17:10 Ventolin 0.083% Nebulizer Soln - NEB 1 amp Q4H PRN Administration SHORT OF BREATH/WHEEZING Albuterol/Ipratropium 1 amp 08/02/17 20:00 08/04/17 11:28 Duoneb - NEB 1 amp RQID ARVIND Administration Apixaban 5 mg 08/02/17 22:00 08/04/17 11:14 Eliquis - PO 5 mg BID ARVIND Administration Atorvastatin Calcium 40 mg 08/02/17 22:00 08/03/17 21:28 Lipitor - PO 40 mg HS ARVIND Administration Budesonide/Formoterol Fumarate 2 puff 08/02/17 20:00 08/04/17 09:10 Symbicort 160/4.5mcg - IH 2 puff RBID ARVIND Administration Chlorhexidine Gluconate 1 applic 08/02/17 22:00 08/03/17 21:28 Hibiclens For Decolonization - TP 1 applic HS ARVIND Administration Digoxin 0.125 mg 08/02/17 10:00 08/04/17 09:11 Lanoxin - PO 0.125 mg DAILY ARVIND Administration Fluticasone Propionate 2 spray 08/03/17 10:00 08/04/17 09:10 Flonase - NS 2 sprays DAILY ARVIND Administration Furosemide 80 mg 08/04/17 10:00 08/04/17 09:10 Lasix Injection - IVPUSH 80 mg BID@1000,1600 ARVIND Administration Gabapentin 300 mg 08/02/17 22:00 08/04/17 06:35 Neurontin - PO 300 mg TID ARVIND Administration Famotidine/Sodium Chloride 20 mg in 50 mls @ 100 mls/hr 08/02/17 22:00 09:10 Pepcid 20 Mg Premixed Ivpb - IVPB 100 mls/hr BID ARVIND Administration Insulin Aspart 1 vial 08/02/17 22:00 08/04/17 11:23 Novolog Vial Sliding Scale - SQ 10 units ACHS ARVIND Administration Protocol Insulin Detemir 37 units 08/02/17 22:00 08/04/17 06:36 Levemir Vial SQ 37 units BID@0700,2200 ARVIND Administration Loratadine 10 mg 08/03/17 10:00 08/04/17 09:11 Claritin - PO 10 mg DAILY ARVIND Administration Methylprednisolone Sodium Succinate 40 mg 08/02/17 10:00 08/04/17 09:10 Solu-Medrol - IVPUSH 40 mg Q8H-IV ARVIND Administration Mupirocin 1 applic 08/02/17 10:00 08/04/17 09:29 Bactroban Ointment (For Decolonization) - NS 08/07/17 09:59 1 applic BID ARVIND Administration Sodium Chloride 2 spray 08/02/17 16:51 [place] Nasal [place] - NS BID PRN NASAL CONGESTION Tamsulosin HCl 0.4 mg 08/03/17 08:30 08/04/17 09:11 Flomax - PO 0.4 mg DAILY@0830 ARVIND Administration Verapamil HCl 240 mg 08/02/17 22:00 08/04/17 11:14 Calan Sr - PO 240 mg BID ARVIND Administration ASSESSMENT/PLAN: The patient is a 72 year old male with a history of afib, chf, HTN, HLD, pulmonary hypertension, COPD, GERD, renal insuffiancy, morbid obesity who was admitted for SOB and acute CHF exacerbation transferred to the ICU for afib with RVR. NEURO Patient is alert and oriented x3. No issues currently. -Will continue to monitor. CV #Afib with RVR (Improved) The patient remains stable after stopping cardizem drip. - Continue verapamil 240mg po BID po - Continue digoxen 0.125mg po daily - Continue lasix 80mg IVpush BID - Continue eliquis BID - Will stop cardizem today and continue to monitor the patient's hr. #HLD - Will continue statin RESP #Acute on chronic COPD Patient reports improvement in his respiratory status and denies SOB while on nasal canula. Patient's chest plain film demonstrates - Continue bipap prn - Continue solumedrol 40mg ivpush q8hr - Continue symbicort, flonase, duoneb, claritin, ventolin, GI No Issues currently. Renal No issues currently. -Will continue to monitor bun/creatinine. ID #Diabetes Mellitus -Continue levemir 37 BID -Continue ISS, BGM MSK No issues currently FEN/GI -Replete electrolytes PRN, will monitor PPX -Continue eliquis -Continue famotadine. DISPO: Stable for transfer to telemetry floor. Visit type - Emergency Visit Emergency Visit: No - New Patient This patient is new to me today: Yes Date on this admission: 08/04/17 - Critical Care Critical Care patient: Yes Total Critical Care Time (in minutes): 35 Critical Care Statement: The care of this patient involved high complexity decision making to prevent further life threatening deterioration of the patient 's condition and/or to evaluate & treat vital organ system(s) failure or risk of failure.
--- NOTE | 2017-08-04 12:19 | PN ---
Teaching Attending Note Name of Resident: Saran Garcia ATTENDING PHYSICIAN STATEMENT I saw and evaluated the patient. I reviewed the resident's note and discussed the case with the resident. I agree with the resident's findings and plan as documented. SUBJECTIVE: Patient seen and examined in the ICU. AFib rates are low 100s. Breathing slowly improving. NIPPV overnight. (+) LBM Intake & Output 08/01/17 08/02/17 08/03/17 08/04/17 23:59 23:59 23:59 23:59 Intake Total 383 728 7731 Output Total 2800 3600 3500 200 Balance -2320 -3360 -2325 -200 Weight 327 lb Last Vital Signs Temp Pulse Resp BP Pulse Ox 98.5 F 83 19 133/75 92 L 08/04/17 10:00 08/04/17 10:00 08/04/17 10:00 08/04/17 10:00 08/04/17 11:27 Active Medications Acetaminophen (Tylenol -) 650 mg PO Q6H PRN PRN Reason: BACK PAIN Albuterol Sulfate (Ventolin 0.083% Nebulizer Soln -) 1 amp NEB Q4H PRN PRN Reason: SHORT OF BREATH/WHEEZING Last Admin: 08/02/17 17:10 Dose: 1 amp Albuterol/Ipratropium (Duoneb -) 1 amp NEB RQID [facility] Last Admin: 08/04/17 11:28 Dose: 1 amp Apixaban (Eliquis -) 5 mg PO BID [facility] Last Admin: 08/04/17 11:14 Dose: 5 mg Atorvastatin Calcium (Lipitor -) 40 mg PO HS [facility] Last Admin: 08/03/17 21:28 Dose: 40 mg Budesonide/Formoterol Fumarate (Symbicort 160/4.5mcg -) 2 puff IH RBID [facility] Last Admin: 08/04/17 09:10 Dose: 2 puff Chlorhexidine Gluconate (Hibiclens For Decolonization -) 1 applic TP HS [facility] Last Admin: 08/03/17 21:28 Dose: 1 applic Digoxin (Lanoxin -) 0.125 mg PO DAILY [facility] Last Admin: 08/04/17 09:11 Dose: 0.125 mg Fluticasone Propionate (Flonase -) 2 spray NS DAILY [facility] Last Admin: 08/04/17 09:10 Dose: 2 sprays Furosemide (Lasix Injection -) 80 mg IVPUSH BID@1000,1600 [facility] Last Admin: 08/04/17 09:10 Dose: 80 mg Gabapentin (Neurontin -) 300 mg PO TID [facility] Last Admin: 08/04/17 06:35 Dose: 300 mg Famotidine/Sodium Chloride (Pepcid 20 Mg Premixed Ivpb -) 20 mg in 50 mls @ 100 mls/hr IVPB BID [facility] Last Admin: 08/04/17 09:10 Dose: 100 mls/hr Insulin Aspart (Novolog Vial Sliding Scale -) 1 vial SQ ACHS [facility] PRN Reason: Protocol Last Admin: 08/04/17 11:23 Dose: 10 units Insulin Detemir (Levemir Vial) 37 units SQ BID@0700,2200 [facility] Last Admin: 08/04/17 06:36 Dose: 37 units Loratadine (Claritin -) 10 mg PO DAILY [facility] Last Admin: 08/04/17 09:11 Dose: 10 mg Methylprednisolone Sodium Succinate (Solu-Medrol -) 40 mg IVPUSH Q8H-IV [facility] Last Admin: 08/04/17 09:10 Dose: 40 mg Mupirocin (Bactroban Ointment (For Decolonization) -) 1 applic NS BID [facility] Stop: 08/07/17 09:59 Last Admin: 08/04/17 09:29 Dose: 1 applic Sodium Chloride ([place] Nasal [place] -) 2 spray NS BID PRN PRN Reason: NASAL CONGESTION Tamsulosin HCl (Flomax -) 0.4 mg PO DAILY@0830 [facility] Last Admin: 08/04/17 09:11 Dose: 0.4 mg Verapamil HCl (Calan Sr -) 240 mg PO BID [facility] Last Admin: 08/04/17 11:14 Dose: 240 mg Constitutional: Yes: Awake and alert, mildly tachypneic at rest Eyes: Yes: Conjunctiva Clear, EOM Intact HENT: Yes: Atraumatic, Normocephalic Neck: Yes: Supple, Trachea Midline Cardiovascular: Yes: Pulse Irregular, tachycardia Respiratory: Yes: Diminished, On Nasal O2, Rales, Rhonchi, SOB. No: Accessory Muscle Use, Stridor, Tachypnea, Wheezes ...Inspection: Yes: WNL ...Clubbing: No Gastrointestinal: Yes: Normal Bowel Sounds, Soft, Abdomen, Obese Musculoskeletal: Yes: WNL Extremities: Yes: WNL Edema: Yes Peripheral Pulses WNL: Yes Integumentary: Yes: WNL Neurological: Yes: WNL, Alert, Oriented ...Motor Strength: WNL Psychiatric: Yes: WNL, Alert, Oriented Labs: Laboratory Results - last 24 hr 08/03/17 08/03/17 08/03/17 06:15 06:35 10:45 WBC RBC Hgb Hct MCV MCH MCHC RDW Plt Count MPV Neutrophils % Lymphocytes % Monocytes % Eosinophils % Basophils % Sodium Potassium Chloride Carbon Dioxide Anion Gap BUN Creatinine Creat Clearance w eGFR POC Glucometer [phone] Random Glucose Calcium Magnesium Total Bilirubin AST ALT Alkaline Phosphatase Creatine Kinase 89 Troponin I < 0.02 B-Natriuretic Peptide 122.55 Total Protein Albumin TSH 0.12 L D 08/03/17 08/03/17 08/03/17 12:11 16:58 21:24 WBC RBC Hgb Hct MCV MCH MCHC RDW Plt Count MPV Neutrophils % Lymphocytes % Monocytes % Eosinophils % Basophils % Sodium Potassium Chloride Carbon Dioxide Anion Gap BUN Creatinine Creat Clearance w eGFR POC Glucometer 228.47159 195.53329 235.25609 Random Glucose Calcium Magnesium Total Bilirubin AST ALT Alkaline Phosphatase Creatine Kinase Troponin I B-Natriuretic Peptide Total Protein Albumin TSH 08/04/17 08/04/17 08/04/17 05:30 05:30 05:43 WBC 9.2 RBC 4.63 Hgb 12.3 Hct 39.1 MCV 84.6 MCH 26.6 MCHC 31.4 L RDW 21.2 H Plt Count 313 MPV 8.2 Neutrophils % 91.9 H Lymphocytes % 3.1 L Monocytes % 4.8 Eosinophils % 0.0 D Basophils % 0.2 Sodium 142 Potassium 3.9 Chloride 99 Carbon Dioxide 34 H Anion Gap 9 BUN 25 H Creatinine 0.9 Creat Clearance w eGFR > 60 POC Glucometer [phone] Random Glucose 159 H Calcium 8.1 L Magnesium 2.7 H D Total Bilirubin 0.7 AST 17 ALT 50 Alkaline Phosphatase 67 Creatine Kinase Troponin I B-Natriuretic Peptide Total Protein 5.7 L Albumin 2.5 L TSH 08/04/17 11:17 WBC RBC Hgb Hct MCV MCH MCHC RDW Plt Count MPV Neutrophils % Lymphocytes % Monocytes % Eosinophils % Basophils % Sodium Potassium Chloride Carbon Dioxide Anion Gap BUN Creatinine Creat Clearance w eGFR POC Glucometer [phone] Random Glucose Calcium Magnesium Total Bilirubin AST ALT Alkaline Phosphatase Creatine Kinase Troponin I B-Natriuretic Peptide Total Protein Albumin TSH Problem List - Problems (1) Atrial fibrillation Assessment/Plan: Code(s): I48.91 - UNSPECIFIED ATRIAL FIBRILLATION Qualifiers: Atrial fibrillation type: chronic Qualified Code(s): I48.2 - Chronic atrial fibrillation (2) Acute chronic obstructive pulmonary disease with respiratory distress Assessment/Plan: Code(s): J44.9 - CHRONIC OBSTRUCTIVE PULMONARY DISEASE, UNSPECIFIED; R06.03 - ACUTE RESPIRATORY DISTRESS (3) Acute exacerbation of chronic obstructive pulmonary disease (COPD) Assessment/Plan: Code(s): J44.1 - CHRONIC OBSTRUCTIVE PULMONARY DISEASE W (ACUTE) EXACERBATION (4) CHF exacerbation Assessment/Plan: Code(s): I50.9 - HEART FAILURE, UNSPECIFIED Qualifiers: Congestive heart failure type: unspecified congestive heart failure type Assessment/Plan Medrol BD TX Lasix NIPPV as needed and QHS Daily weight Rate control with Digoxin / Verapamil Cardiac Telemetry monitoring Dr Emanuel Critical care time spent in reviewing chart, evaluating patient and formulating plan - 36 minutes.
--- NOTE | 2017-08-04 18:03 | PN ---
Progress Note (short form) - Note Progress Note: Chief Complaint: sob History of Present Illness: off dilt drip. briefly on additional po dilt overnight. no cp palps dizzy. sob improving, but persists. will be transferred to [facility] today. Refused am lasix dose. ex-cigs Current Medications Acetaminophen (Tylenol -) 650 mg PO Q6H PRN PRN Reason: BACK PAIN Albuterol Sulfate (Ventolin 0.083% Nebulizer Soln -) 1 amp NEB Q4H PRN PRN Reason: SHORT OF BREATH/WHEEZING Last Admin: 08/02/17 17:10 Dose: 1 amp Albuterol/Ipratropium (Duoneb -) 1 amp NEB RQID REPLACED BY [facility] Last Admin: 08/04/17 11:28 Dose: 1 amp Apixaban (Eliquis -) 5 mg PO BID REPLACED BY [facility] Last Admin: 08/04/17 11:14 Dose: 5 mg Atorvastatin Calcium (Lipitor -) 40 mg PO HS REPL[facility]ED BY [facility] Last Admin: 08/03/17 21:28 Dose: 40 mg Budesonide/Formoterol Fumarate (Symbicort 160/4.5mcg -) 2 puff IH RBID REPLACED BY [facility] Last Admin: 08/04/17 09:10 Dose: 2 puff Chlorhexidine Gluconate (Hibiclens For Decolonization -) 1 applic TP HS [facility]PL[facility]ED BY [facility] Last Admin: 08/03/17 21:28 Dose: 1 applic Digoxin (Lanoxin -) 0.125 mg PO DAILY [facility]PL[facility] Last Admin: 08/04/17 09:11 Dose: 0.125 mg Fluticasone Propionate (Flonase -) 2 spray NS DAILY [facility] Last Admin: 08/04/17 09:10 Dose: 2 sprays Furosemide (Lasix Injection -) 80 mg IVPUSH BID@1000,1600 REPLACED BY [facility] Last Admin: 08/04/17 16:11 Dose: 80 mg Gabapentin (Neurontin -) 300 mg PO TID REPLACED BY [facility] Last Admin: 08/04/17 15:19 Dose: 300 mg Famotidine/Sodium Chloride (Pepcid 20 Mg Premixed Ivpb -) 20 mg in 50 mls @ 100 mls/hr IVPB BID REPL[facility]ED BY [facility] Last Admin: 08/04/17 09:10 Dose: 100 mls/hr Insulin Aspart (Novolog Vial Sliding Scale -) 1 vial SQ ACHS REPLACED BY [facility] PRN Reason: Protocol Last Admin: 08/04/17 11:23 Dose: 10 units Insulin Detemir (Levemir Vial) 37 units SQ BID@0700,2200 REPLACED BY [facility] Last Admin: 08/04/17 06:36 Dose: 37 units Loratadine (Claritin -) 10 mg PO DAILY REPL[facility]ED BY [facility] Last Admin: 08/04/17 09:11 Dose: 10 mg Methylprednisolone Sodium Succinate (Solu-Medrol -) 40 mg IVPUSH Q8H-IV REPLACED BY [facility] Last Admin: 08/04/17 09:10 Dose: 40 mg Mupirocin (Bactroban Ointment (For Decolonization) -) 1 applic NS BID REPLACED BY [facility] Stop: 08/07/17 09:59 Last Admin: 08/04/17 09:29 Dose: 1 applic Sodium Chloride ([place] Nasal [place] -) 2 spray NS BID PRN PRN Reason: NASAL CONGESTION Tamsulosin HCl (Flomax -) 0.4 mg PO DAILY@0830 REPLACED BY [facility] Last Admin: 08/04/17 09:11 Dose: 0.4 mg Verapamil HCl (Calan Sr -) 240 mg PO BID REPLACED BY [facility] Last Admin: 08/04/17 11:14 Dose: 240 mg - Objective Vital Signs: Vital Signs - 24 hr 08/03/17 08/03/17 08/03/17 18:49 19:22 20:00 Temperature 98.7 F Pulse Rate 94 H Respiratory 22 Rate Blood Pressure 130/69 O2 Sat by Pulse 88 L Oximetry (%) 08/03/17 08/03/17 08/03/17 21:00 21:30 22:04 Temperature 98.6 F Pulse Rate 90 Respiratory 23 23 Rate Blood Pressure 118/69 O2 Sat by Pulse 88 L 92 L Oximetry (%) 08/04/17 08/04/17 08/04/17 00:00 02:00 04:00 Temperature 97.9 F Pulse Rate 125 H 89 90 Respiratory 29 H 23 Rate Blood Pressure 107/73 97/67 O2 Sat by Pulse Oximetry (%) 08/04/17 08/04/17 08/04/17 06:00 06:40 08:00 Temperature Pulse Rate 109 H 103 H Respiratory 22 16 Rate Blood Pressure 131/79 103/68 O2 Sat by Pulse 93 L Oximetry (%) 08/04/17 08/04/17 08/04/17 09:00 09:10 09:11 Temperature Pulse Rate 92 H 85 Respiratory 19 Rate Blood Pressure O2 Sat by Pulse 93 L 93 L Oximetry (%) 08/04/17 08/04/17 08/04/17 10:00 11:27 12:00 Temperature 98.5 F Pulse Rate 83 101 H Respiratory 19 25 H Rate Blood Pressure 133/75 143/81 O2 Sat by Pulse 92 L Oximetry (%) 08/04/17 08/04/17 08/04/17 14:00 14:29 16:55 Temperature 99.0 F Pulse Rate 106 H Respiratory 28 H Rate Blood Pressure 131/72 O2 Sat by Pulse 98 96 Oximetry (%) Intake & Output 08/02/17 08/03/17 08/04/17 08/05/17 07:59 07:59 07:59 07:59 Intake Total 480 530 645 550 Output Total 5000 1200 3100 1200 Balance -4520 -670 -2455 -650 Weight 327 lb Constitutional: Yes: uncomfortable, vomiting. Obese Eyes: No: Sclera Icterus HENT: No: Nasal Congestion Cardiovascular: Yes: Pulse Irregular (soft heart sounds), S1, S2, Other (PMI non diplaced). No: JVD (very tds habitus plus bipap mask), Gallop, Murmur Respiratory: Yes: diminished air movment, Rhonchi, Wheezes. No: Accessory Muscle Use, Rales Gastrointestinal: Yes: Normal Bowel Sounds, Soft. No: Tenderness Extremities: No: Cold Edema: Yes ( trace pretib) Integumentary: No: Jaundice diaphoresis Neurological: Yes: Alert, Oriented (x3) Psychiatric: No: Agitated Labs: CBC, BMP 08/04/17 05:30 08/04/17 05:30 Laboratory Tests 08/02/17 08/03/17 08/04/17 06:00 06:35 05:30 Band Neutrophils % 11.0 Magnesium 2.7 H D Albumin 2.5 L Digoxin 0.9070 - ....Imaging EKG: Other (tele: afib, vr acceptable) echo 07/2016: Nl lv/rv. 1+ AR mibi 12/2012: small posterior ischemia vs artifact, nl lvef, no tid cxr: incr markings at bases c/w atx vs early infiltrate a/p: 72 yo male with h/o AFib s/p prior DCCV 12/2015 to SR on AC, HTN, HL, dchf , PVCs with palpitations, morbid obesity, LUCY on bipap, severe COPD, here with sob. a.e. copd: - copd/lucy tx per pulm acute on chronic diastolic chf: - previous admits, wt up to 340s-350s when decomp chf, with signif incr LE edema - d/c wt 04/26 was 324. and was 315 when left here 07/28, then back up to 327 when back with a.e. copd 07/28. - 07/28 copd admit with marked pedal edema treated with lasix 80 iv bid--d/c wt 314. sent out on lasix 40 po bid. - marked weakness with activity at home, cxr with fluid in fissure, ? effusions on image review--pulmonary team does not suspect a.e. copd or PNA - BNP 180 (prior range 90-300). phys exam prohibitively TDS for volume assessment, and cannot get standing wts until pt moves from ICU to tele bed. - 08/01 no standing weight done here (ordered today). incr lasix from 40 iv bid to 80 iv bid. - 08/02-: bmp stable on increased IV lasix, con't. (intermittently declining lasix) - monitor daily labs. weights, i/o's - he resists taking lasix bid at home due to freq urinating. should go home on 80 qd this time paroxysmal AF/flutter -cont eliquis for AC -new dx 2015--req'd amio for HR control then (now off due to severe lung dz), s/ p successful DCCV 12/24, then reverted to afib -defer AVN ablation/PPM unless future signs of HF being driven by rapid HRs (to date thus far, his AF rates are well-controlled at office, and only rapid sec to acute copd). -avoiding BB given severe bronchospasm/copd; would like to avoid long-term amio for same reason -on outpatient regimen here, verapamil 240 bid, and dig (level good here). monitor tele -rate typically becomes elevated in settings of respiratory distress and often improves with bipap therapy. - 08/02: K 3.7 and mg 1.6 this am. + recurrent nausea/vomiting this morning --> RVR to 140's . Given 150 IV amio. 0.25 digoxin IV x 1. Given a total of 25 mg of IV dilt and started on diltiazem drip. -08/03: hr controlled. cont dig and verapamil. titrate off dilt gtt. - 08/04: hr controlled on dig and verapamil. Dilt drip now off. hld: -continue home statin htn: -stable on current meds possible cad: -pt had borderline positive mibi in 2013 vs soft tissue attenuation artifact -never had angina sx's -ECG nonsp ST-T no signif change vs prior. trop neg x2. no anginal sx's -continue medical management with statin, AC without ASA
[2017-08-04] MEDS ORDERED: ACETAMINOPHEN 325 MG TABLET (FP) PO PRN (19:19)
[2017-08-04] MEDS ORDERED: SODIUM CHLORIDE NASAL SPRAY 44 ML BOTTLE NS PRN (19:19)
[2017-08-04] MEDS: ATORVASTATIN CA 40 MG TABLET (FP) PO SCH (21:40)
[2017-08-04] MEDS ORDERED: CHLORHEXIDINE GLUCONATE 4% CLEANSER FOR DECOLONIZATION TP SCH (22:00)
[2017-08-04] MEDS ORDERED: MUPIROCIN 2% TOPICAL OINTMENT FOR DECOLONIZATION NS SCH (22:00)
[2017-08-05] MEDS: methylPREDNISolone NA SUCC 40 MG/1 ML VIAL IVPUSH SCH ×3 (02:17→17:41)
[2017-08-05] MEDS: INSULIN SLIDING SCALE (NOVOLOG) 1 VIAL SQ SCH ×4 (06:10→22:01)
[2017-08-05] MEDS: FUROSEMIDE 40 MG/4 ML INJECTABLE VIAL IVPUSH SCH ×4 (06:12→22:03)
[2017-08-05] MEDS: INSULIN DETEMIR 100 UNITS/ML MDV SQ SCH ×2 (06:13→22:00)
[2017-08-05] MEDS: GABAPENTIN 300 MG CAPSULE (FP) PO SCH ×3 (06:13→21:59)
[2017-08-05] MEDS: ALBUTEROL SO4 2.5/IPRATROPIUM 0.5 INH SOL 3 ML VIAL.NEB. NEB SCH ×5 (07:43→21:15)
[2017-08-05 08:23] LABS: HEMATOCRIT 37.7 % (35.4-49); HEMOGLOBIN 11.8 GM/dL (11.7-16.9); MCH 26.5 pg (25.7-33.7); MCHC 31.4 g/dl (32.0-35.9); MEAN CELL VOLUME 84.5 fl (80-96); MEAN PLT VOLUME 8.3 fl (7.5-11.1); PLATELET COUNT 342 K/MM3 (134-434); RBC 4.46 M/mm3 (4.00-5.60); RDW 20.7 % (11.9-15.9); WHITE BLOOD COUNT 11.9 K/mm3 (4.0-10.0)
[2017-08-05 08:30] LABS: CHLORIDE 100 mmol/L (98-107); POTASSIUM 3.7 mmol/L (3.5-5.1); SODIUM 142 mmol/L (136-145)
[2017-08-05 08:51] LABS: ANION GAP 10 (8-16); BLOOD UREA NITROGEN 28 mg/dL (7-18); CALCIUM 7.9 mg/dL (8.5-10.1); CO2 32 mmol/L (21-32); CREATININE 0.6 mg/dL (0.7-1.3); GLUCOSE,RANDOM 184 mg/dL (74-106); MAGNESIUM 2.1 mg/dL (1.8-2.4); PHOSPHOROUS 2.2 mg/dL (2.5-4.9)
[2017-08-05] MEDS ORDERED: PT OWN MED DRAWER 7, Y5N ONE (09:18)
[2017-08-05] MEDS: TAMSULOSIN HCL 0.4 MG CAP.ER.24H (FP) PO SCH (09:37)
[2017-08-05] MEDS: LORATADINE 10 MG TABLET PO SCH (09:37)
[2017-08-05] MEDS: APIXABAN 5 MG TABLET PO SCH ×2 (09:37→21:59)
[2017-08-05] MEDS: DIGOXIN 0.125 MG TABLET (FP) PO SCH (09:38)
[2017-08-05] MEDS: FAMOTIDINE 20 MG/50 ML IVPB 20 MG/50 ML MG IVPB SCH ×2 (09:38→22:01)
[2017-08-05] MEDS: FLUTICASONE PROP 0.05% 16 GM NASAL SPRAY NS SCH (09:39)
[2017-08-05] MEDS: BUDESONIDE/FORMETEROL FUMARATE 160/4.5 mcg INHALER IH SCH ×2 (09:40→22:02)
--- NOTE | 2017-08-05 09:54 | PN ---
Progress Note, Physician - Current Medication List Current Medications: Active Medications Acetaminophen (Tylenol -) 650 mg PO Q6H PRN PRN Reason: BACK PAIN Albuterol Sulfate (Ventolin 0.083% Nebulizer Soln -) 1 amp NEB Q4H PRN PRN Reason: SHORT OF BREATH/WHEEZING Albuterol/Ipratropium (Duoneb -) 1 amp NEB RQID [facility] Last Admin: 08/05/17 07:43 Dose: 1 amp Apixaban (Eliquis -) 5 mg PO BID [facility] Last Admin: 08/05/17 09:37 Dose: 5 mg Atorvastatin Calcium (Lipitor -) 40 mg PO HS [facility] Last Admin: 08/04/17 21:40 Dose: 40 mg Budesonide/Formoterol Fumarate (Symbicort 160/4.5mcg -) 2 puff IH BID [facility] Last Admin: 08/05/17 09:40 Dose: 2 puff Digoxin (Lanoxin -) 0.125 mg PO DAILY [facility] Last Admin: 08/05/17 09:38 Dose: 0.125 mg Fluticasone Propionate (Flonase -) 2 spray NS DAILY [facility] Last Admin: 08/05/17 09:39 Dose: 2 spray Furosemide (Lasix Injection -) 80 mg IVPUSH BIDLASIX [facility] Last Admin: 08/05/17 06:17 Dose: Not Given Gabapentin (Neurontin -) 300 mg PO TID [facility] Last Admin: 08/05/17 06:13 Dose: 300 mg Famotidine/Sodium Chloride (Pepcid 20 Mg Premixed Ivpb -) 20 mg in 50 mls @ 100 mls/hr IVPB BID [facility] Last Admin: 08/05/17 09:38 Dose: 100 mls/hr Insulin Aspart (Novolog Vial Sliding Scale -) 1 vial SQ ACHS [facility] PRN Reason: Protocol Last Admin: 08/05/17 06:10 Dose: Not Given Insulin Detemir (Levemir Vial) 37 units SQ BID@0700,2200 [facility] Last Admin: 08/05/17 06:13 Dose: 37 units Loratadine (Claritin -) 10 mg PO DAILY [facility] Last Admin: 08/05/17 09:37 Dose: 10 mg Methylprednisolone Sodium Succinate (Solu-Medrol -) 40 mg IVPUSH Q8H-IV [facility] Last Admin: 08/05/17 09:41 Dose: 40 mg Sodium Chloride ([place] -) 2 spray NS BID PRN PRN Reason: NASAL CONGESTION Tamsulosin HCl (Flomax -) 0.4 mg PO DAILY@0830 [facility] Last Admin: 08/05/17 09:37 Dose: 0.4 mg Verapamil HCl (Calan Sr -) 240 mg PO BID [facility] Last Admin: 08/04/17 21:39 Dose: 240 mg - Objective Vital Signs: Vital Signs Temperature 98.4 F 08/05/17 09:36 Pulse Rate 91 H 08/05/17 09:38 Respiratory Rate 20 08/05/17 09:36 Blood Pressure 122/99 08/05/17 09:36 O2 Sat by Pulse Oximetry (%) 97 08/05/17 07:43 Cardiovascular: Yes: S1, S2 Respiratory: Yes: Rales, Rhonchi Gastrointestinal: Yes: Normal Bowel Sounds, Soft Labs: CBC, BMP 08/05/17 06:39 08/05/17 06:39 INR, PTT INR 0.98 (0.82-1.09) 07/30/17 10:40 Problem List - Problems (1) Atrial fibrillation Code(s): I48.91 - UNSPECIFIED ATRIAL FIBRILLATION Qualifiers: Atrial fibrillation type: chronic Qualified Code(s): I48.2 - Chronic atrial fibrillation (2) Acute chronic obstructive pulmonary disease with respiratory distress Code(s): J44.9 - CHRONIC OBSTRUCTIVE PULMONARY DISEASE, UNSPECIFIED; R06.03 - ACUTE RESPIRATORY DISTRESS (3) Acute exacerbation of chronic obstructive pulmonary disease (COPD) Code(s): J44.1 - CHRONIC OBSTRUCTIVE PULMONARY DISEASE W (ACUTE) EXACERBATION (4) CHF exacerbation Code(s): I50.9 - HEART FAILURE, UNSPECIFIED Qualifiers: Congestive heart failure type: unspecified congestive heart failure type Assessment/Plan Problems (1) Acute CHF Assessment/Plan: acute on chronic CHF on iv lasix leg edema is decreasing renal function is ok Code(s): I50.9 - HEART FAILURE, UNSPECIFIED Qualifiers: Congestive heart failure type: systolic Qualified Code(s): I50.21 - Acute systolic (congestive) heart failure (2) Atrial fibrillation Assessment/Plan: eliquis BID dig and verampamil on cardizem po Code(s): I48.91 - UNSPECIFIED ATRIAL FIBRILLATION Qualifiers: Atrial fibrillation type: chronic Qualified Code(s): I48.2 - Chronic atrial fibrillation (3) COPD (chronic obstructive pulmonary disease) Assessment/Plan: prednsione taper iv medrol bronchodilators bipap at night oxygen via [place] Code(s): J44.9 - CHRONIC OBSTRUCTIVE PULMONARY DISEASE, UNSPECIFIED Qualifiers: COPD type: unspecified COPD Qualified Code(s): J44.9 - Chronic obstructive pulmonary disease, unspecified (4) Diabetes mellitus Assessment/Plan: bgm hgba1c noted metofrmin and januvia -stopped levemir prednisone taper Code(s): E11.9 - TYPE 2 DIABETES MELLITUS WITHOUT COMPLICATIONS Qualifiers: Diabetes mellitus type: type 2
--- NOTE | 2017-08-05 10:38 | PN ---
Progress Note (short form) - Note Progress Note: Chief Complaint: sob History of Present Illness: no cp palps dizzy. sob improving ex-cigs Current Medications Generic Name Dose Route Start Last Admin Trade Name Spike PRN Reason Stop Dose Admin Acetaminophen 650 mg 08/04/17 19:19 Tylenol - PO Q6H PRN BACK PAIN Albuterol Sulfate 1 amp 08/04/17 19:19 Ventolin 0.083% Nebulizer Soln - NEB Q4H PRN SHORT OF BREATH/WHEEZING Albuterol/Ipratropium 1 amp 08/04/17 20:00 08/05/17 07:43 Duoneb - NEB 1 amp RQID ARVIND Administration Apixaban 5 mg 08/04/17 22:00 08/05/17 09:37 Eliquis - PO 5 mg BID ARVIND Administration Atorvastatin Calcium 40 mg 08/04/17 22:00 08/04/17 21:40 Lipitor - PO 40 mg HS ARVIND Administration Budesonide/Formoterol Fumarate 2 puff 08/04/17 22:00 08/05/17 09:40 Symbicort 160/4.5mcg - IH 2 puff BID ARVIND Administration Digoxin 0.125 mg 08/05/17 10:00 08/05/17 09:38 Lanoxin - PO 0.125 mg DAILY ARVIND Administration Fluticasone Propionate 2 spray 08/05/17 10:00 08/05/17 09:39 Flonase - NS 2 spray DAILY ARVIND Administration Furosemide 80 mg 08/05/17 10:00 Lasix Injection - IVPUSH BID ARVIND Gabapentin 300 mg 08/04/17 22:00 08/05/17 06:13 Neurontin - PO 300 mg TID ARVIND Administration Famotidine/Sodium Chloride 20 mg in 50 mls @ 100 mls/hr 08/04/17 22:00 09:38 Pepcid 20 Mg Premixed Ivpb - IVPB 100 mls/hr BID ARVIND Administration Insulin Aspart 1 vial 08/04/17 22:00 08/05/17 06:10 Novolog Vial Sliding Scale - SQ Not Given ACHS [facility] Protocol Insulin Detemir 37 units 08/04/17 22:00 08/05/17 06:13 Levemir Vial SQ 37 units BID@0700,2200 ARVIND Administration Loratadine 10 mg 08/05/17 10:00 08/05/17 09:37 Claritin - PO 10 mg DAILY ARVIND Administration Methylprednisolone Sodium Succinate 40 mg 08/05/17 02:00 08/05/17 09:41 Solu-Medrol - IVPUSH 40 mg Q8H-IV ARVIND Administration Sodium Chloride 2 spray 08/04/17 19:19 [place] - NS BID PRN NASAL CONGESTION Tamsulosin HCl 0.4 mg 08/05/17 08:30 08/05/17 09:37 Flomax - PO 0.4 mg DAILY@0830 ARVIND Administration Verapamil HCl 240 mg 08/04/17 22:00 08/04/17 21:39 Calan Sr - PO 240 mg BID ARVIND Administration Vital Signs Period Temp Pulse Resp BP Sys/Park Pulse Ox Last 24 Hr 97.5 F-99.0 F 86-114 20-28 94-158/51-119 86-98 Constitutional: Yes: uncomfortable, vomiting. Obese Eyes: No: Sclera Icterus HENT: No: Nasal Congestion Cardiovascular: Yes: Pulse Irregular (soft heart sounds), S1, S2, Other (PMI non diplaced). No: JVD (very tds habitus plus bipap mask), Gallop, Murmur Respiratory: Yes: diminished air movment, Rhonchi, Wheezes. No: Accessory Muscle Use, Rales Gastrointestinal: Yes: Normal Bowel Sounds, Soft. No: Tenderness Extremities: No: Cold Edema: Yes ( trace pretib) Integumentary: No: Jaundice diaphoresis Neurological: Yes: Alert, Oriented (x3) Psychiatric: No: Agitated Labs: CBC, BMP 08/05/17 06:39 08/05/17 06:39 - ....Imaging EKG: Other (tele: afib, vr acceptable) echo 07/2016: Nl lv/rv. 1+ AR mibi 12/2012: small posterior ischemia vs artifact, nl lvef, no tid cxr: incr markings at bases c/w atx vs early infiltrate a/p: 72 yo male with h/o AFib s/p prior DCCV 12/2015 to SR on AC, HTN, HL, dchf , PVCs with palpitations, morbid obesity, NATHANIEL on bipap, severe COPD, here with sob. a.e. copd: - copd/nathaniel tx per pulm acute on chronic diastolic chf: - previous admits, wt up to 340s-350s when decomp chf, with signif incr LE edema - d/c wt 04/26 was 324. and was 315 when left here 07/28, then back up to 327 when back with a.e. copd 07/28. - 07/28 copd admit with marked pedal edema treated with lasix 80 iv bid--d/c wt 314. sent out on lasix 40 po bid. - marked weakness with activity at home, cxr with fluid in fissure, ? effusions on image review--pulmonary team does not suspect a.e. copd or PNA - BNP 180 (prior range 90-300). phys exam prohibitively TDS for volume assessment, and cannot get standing wts until pt moves from ICU to tele bed. - 08/01 no standing weight done here (ordered today). incr lasix from 40 iv bid to 80 iv bid. - 08/02-: bmp stable on increased IV lasix, con't. - monitor daily labs. weights, i/o's - he resists taking lasix bid at home due to freq urinating. should go home on 80 qd this time paroxysmal AF/flutter -cont eliquis for AC -new dx 2015--req'd amio for HR control then (now off due to severe lung dz), s/ p successful DCCV 12/24, then reverted to afib -defer AVN ablation/PPM unless future signs of HF being driven by rapid HRs (to date thus far, his AF rates are well-controlled at office, and only rapid sec to acute copd). -avoiding BB given severe bronchospasm/copd; would like to avoid long-term amio for same reason -on outpatient regimen here, verapamil 240 bid, and dig (level good here). monitor tele -rate typically becomes elevated in settings of respiratory distress and often improves with bipap therapy. - 08/02: K 3.7 and mg 1.6 this am. + recurrent nausea/vomiting this morning --> RVR to 140's . Given 150 IV amio. 0.25 digoxin IV x 1. Given a total of 25 mg of IV dilt and started on diltiazem drip. -08/05: hr controlled. cont dig and verapamil. hld: -continue home statin htn: -stable on current meds possible cad: -pt had borderline positive mibi in 2013 vs soft tissue attenuation artifact -never had angina sx's -ECG nonsp ST-T no signif change vs prior. trop neg x2. no anginal sx's -continue medical management with statin, AC without ASA
--- NOTE | 2017-08-05 10:44 | PN ---
Progress Note, Physician Chief Complaint: SOB/REQUIRES NIPPV History of Present Illness: REVIEWED. MULTIPLE ADMISSIONS FOR ACUTE ON CHRONIC RESP FAILURE. - Current Medication List Current Medications: Active Medications Acetaminophen (Tylenol -) 650 mg PO Q6H PRN PRN Reason: BACK PAIN Albuterol Sulfate (Ventolin 0.083% Nebulizer Soln -) 1 amp NEB Q4H PRN PRN Reason: SHORT OF BREATH/WHEEZING Albuterol/Ipratropium (Duoneb -) 1 amp NEB RQID [facility] Last Admin: 08/05/17 07:43 Dose: 1 amp Apixaban (Eliquis -) 5 mg PO BID [facility] Last Admin: 08/05/17 09:37 Dose: 5 mg Atorvastatin Calcium (Lipitor -) 40 mg PO HS [facility] Last Admin: 08/04/17 21:40 Dose: 40 mg Budesonide/Formoterol Fumarate (Symbicort 160/4.5mcg -) 2 puff IH BID [facility] Last Admin: 08/05/17 09:40 Dose: 2 puff Digoxin (Lanoxin -) 0.125 mg PO DAILY [facility] Last Admin: 08/05/17 09:38 Dose: 0.125 mg Fluticasone Propionate (Flonase -) 2 spray NS DAILY [facility] Last Admin: 08/05/17 09:39 Dose: 2 spray Furosemide (Lasix Injection -) 80 mg IVPUSH BID [facility] Gabapentin (Neurontin -) 300 mg PO TID [facility] Last Admin: 08/05/17 06:13 Dose: 300 mg Famotidine/Sodium Chloride (Pepcid 20 Mg Premixed Ivpb -) 20 mg in 50 mls @ 100 mls/hr IVPB BID [facility] Last Admin: 08/05/17 09:38 Dose: 100 mls/hr Insulin Aspart (Novolog Vial Sliding Scale -) 1 vial SQ ACHS [facility] PRN Reason: Protocol Last Admin: 08/05/17 06:10 Dose: Not Given Insulin Detemir (Levemir Vial) 37 units SQ BID@0700,2200 [facility] Last Admin: 08/05/17 06:13 Dose: 37 units Loratadine (Claritin -) 10 mg PO DAILY [facility] Last Admin: 08/05/17 09:37 Dose: 10 mg Methylprednisolone Sodium Succinate (Solu-Medrol -) 40 mg IVPUSH Q8H-IV [facility] Last Admin: 08/05/17 09:41 Dose: 40 mg Sodium Chloride ([place] Nasal [place] -) 2 spray NS BID PRN PRN Reason: NASAL CONGESTION Tamsulosin HCl (Flomax -) 0.4 mg PO DAILY@0830 [facility] Last Admin: 08/05/17 09:37 Dose: 0.4 mg Verapamil HCl (Calan Sr -) 240 mg PO BID [facility] Last Admin: 08/04/17 21:39 Dose: 240 mg - Objective Vital Signs: Vital Signs Temperature 98.4 F 08/05/17 09:36 Pulse Rate 91 H 08/05/17 09:38 Respiratory Rate 20 08/05/17 09:36 Blood Pressure 122/99 08/05/17 09:36 O2 Sat by Pulse Oximetry (%) 86 L 08/05/17 09:00 Constitutional: Yes: Anxious Eyes: Yes: EOM Intact HENT: Yes: Normocephalic Neck: Yes: Trachea Midline Cardiovascular: Yes: Pulse Irregular, S1, S2 Respiratory: Yes: Diminished Gastrointestinal: Yes: Abdomen, Obese Edema: LLE: 1+, RLE: 1+ Neurological: Yes: Alert Psychiatric: Yes: Alert Labs: CBC, BMP 08/05/17 06:39 08/05/17 06:39 INR, PTT INR 0.98 (0.82-1.09) 07/30/17 10:40 - ....Imaging Chest X-ray: Report Reviewed, Image Reviewed EKG: Report Reviewed, Image Reviewed Problem List - Problems (1) Atrial fibrillation Code(s): I48.91 - UNSPECIFIED ATRIAL FIBRILLATION Qualifiers: Atrial fibrillation type: chronic Qualified Code(s): I48.2 - Chronic atrial fibrillation (2) COPD (chronic obstructive pulmonary disease) Code(s): J44.9 - CHRONIC OBSTRUCTIVE PULMONARY DISEASE, UNSPECIFIED Qualifiers: COPD type: unspecified COPD Qualified Code(s): J44.9 - Chronic obstructive pulmonary disease, unspecified (3) Type 2 diabetes mellitus with diabetic neuropathy Code(s): E11.40 - TYPE 2 DIABETES MELLITUS WITH DIABETIC NEUROPATHY, UNSP (4) Acute CHF Code(s): I50.9 - HEART FAILURE, UNSPECIFIED Qualifiers: Congestive heart failure type: systolic Qualified Code(s): I50.21 - Acute systolic (congestive) heart failure (5) Acute bronchitis with COPD Code(s): J44.0 - CHRONIC OBSTRUCTIVE PULMON DISEASE W ACUTE LOWER RESP INFCT (6) Acute chronic obstructive pulmonary disease with respiratory distress Code(s): J44.9 - CHRONIC OBSTRUCTIVE PULMONARY DISEASE, UNSPECIFIED; R06.03 - ACUTE RESPIRATORY DISTRESS (7) Acute on chronic respiratory failure with hypoxia and hypercapnia Code(s): J96.21 - ACUTE AND CHRONIC RESPIRATORY FAILURE WITH HYPOXIA; J96.22 - ACUTE AND CHRONIC RESPIRATORY FAILURE WITH HYPERCAPNIA Assessment/Plan Medrol BD TX Lasix NIPPV as needed and QHS Daily weight Rate control with Digoxin / Verapamil Cardiac Telemetry monitoring Glycemic control Benson VASQUEZ MD
[2017-08-05] MEDS: VERAPAMIL HCL 240 MG E.R. TABLET (FP) PO SCH ×2 (13:15→21:59)
[2017-08-05] MEDS: ATORVASTATIN CA 40 MG TABLET (FP) PO SCH (21:59)
[2017-08-06] MEDS: methylPREDNISolone NA SUCC 40 MG/1 ML VIAL IVPUSH SCH ×3 (02:49→21:09)
[2017-08-06] MEDS: GABAPENTIN 300 MG CAPSULE (FP) PO SCH ×3 (05:32→21:09)
[2017-08-06] MEDS: INSULIN DETEMIR 100 UNITS/ML MDV SQ SCH ×2 (06:08→21:09)
[2017-08-06] MEDS: INSULIN SLIDING SCALE (NOVOLOG) 1 VIAL SQ SCH ×4 (06:08→21:10)
[2017-08-06 08:04] LABS: ANION GAP 8 (8-16); BLOOD UREA NITROGEN 23 mg/dL (7-18); CALCIUM 8.5 mg/dL (8.5-10.1); CHLORIDE 98 mmol/L (98-107); CO2 35 mmol/L (21-32); CREATININE 0.8 mg/dL (0.7-1.3); GLUCOSE,RANDOM 290 mg/dL (74-106); POTASSIUM 3.7 mmol/L (3.5-5.1); SODIUM 141 mmol/L (136-145)
[2017-08-06] MEDS: ALBUTEROL SO4 2.5/IPRATROPIUM 0.5 INH SOL 3 ML VIAL.NEB. NEB SCH ×4 (08:46→20:25)
[2017-08-06] MEDS ORDERED: PT OWN MED DRAWER 7, Y5N ONE ×2 (09:08→21:02)
[2017-08-06] MEDS: FUROSEMIDE 40 MG/4 ML INJECTABLE VIAL IVPUSH SCH ×2 (09:14→16:30)
[2017-08-06] MEDS: FAMOTIDINE 20 MG/50 ML IVPB 20 MG/50 ML MG IVPB SCH ×2 (09:14→21:10)
[2017-08-06] MEDS: LORATADINE 10 MG TABLET PO SCH (09:15)
[2017-08-06] MEDS: TAMSULOSIN HCL 0.4 MG CAP.ER.24H (FP) PO SCH (09:15)
[2017-08-06] MEDS: APIXABAN 5 MG TABLET PO SCH ×2 (09:15→21:09)
[2017-08-06] MEDS: FLUTICASONE PROP 0.05% 16 GM NASAL SPRAY NS SCH (09:15)
[2017-08-06] MEDS: VERAPAMIL HCL 240 MG E.R. TABLET (FP) PO SCH ×2 (09:15→21:09)
[2017-08-06] MEDS: BUDESONIDE/FORMETEROL FUMARATE 160/4.5 mcg INHALER IH SCH ×2 (09:15→21:15)
[2017-08-06] MEDS: DIGOXIN 0.125 MG TABLET (FP) PO SCH (09:16)
--- NOTE | 2017-08-06 11:22 | PN ---
Progress Note, Physician History of Present Illness: PT IN ICU FEELS BETTER - Current Medication List Current Medications: Active Medications Acetaminophen (Tylenol -) 650 mg PO Q6H PRN PRN Reason: BACK PAIN Albuterol Sulfate (Ventolin 0.083% Nebulizer Soln -) 1 amp NEB Q4H PRN PRN Reason: SHORT OF BREATH/WHEEZING Albuterol/Ipratropium (Duoneb -) 1 amp NEB RQID [facility] Last Admin: 08/06/17 08:46 Dose: 1 amp Apixaban (Eliquis -) 5 mg PO BID [facility] Last Admin: 08/06/17 09:15 Dose: 5 mg Atorvastatin Calcium (Lipitor -) 40 mg PO HS [facility] Last Admin: 08/05/17 21:59 Dose: 40 mg Budesonide/Formoterol Fumarate (Symbicort 160/4.5mcg -) 2 puff IH BID [facility] Last Admin: 08/06/17 09:15 Dose: 2 puff Digoxin (Lanoxin -) 0.125 mg PO DAILY [facility] Last Admin: 08/06/17 09:16 Dose: 0.125 mg Fluticasone Propionate (Flonase -) 2 spray NS DAILY [facility] Last Admin: 08/06/17 09:15 Dose: 2 spray Furosemide (Lasix Injection -) 80 mg IVPUSH BID@1000,1600 [facility] Gabapentin (Neurontin -) 300 mg PO TID [facility] Last Admin: 08/06/17 05:32 Dose: 300 mg Famotidine/Sodium Chloride (Pepcid 20 Mg Premixed Ivpb -) 20 mg in 50 mls @ 100 mls/hr IVPB BID [facility] Last Admin: 08/06/17 09:14 Dose: 100 mls/hr Insulin Aspart (Novolog Vial Sliding Scale -) 1 vial SQ ACHS [facility] PRN Reason: Protocol Last Admin: 08/06/17 06:08 Dose: 8 units Insulin Detemir (Levemir Vial) 37 units SQ BID@0700,2200 [facility] Last Admin: 08/06/17 06:08 Dose: 37 units Loratadine (Claritin -) 10 mg PO DAILY [facility] Last Admin: 08/06/17 09:15 Dose: 10 mg Methylprednisolone Sodium Succinate (Solu-Medrol -) 40 mg IVPUSH Q8H-IV [facility] Last Admin: 01/27/18 09:14 Dose: 40 mg Sodium Chloride ([place] -) 2 spray NS BID PRN PRN Reason: NASAL CONGESTION Tamsulosin HCl (Flomax -) 0.4 mg PO DAILY@0830 [facility] Last Admin: 08/06/17 09:15 Dose: 0.4 mg Verapamil HCl (Calan Sr -) 240 mg PO BID [facility] Last Admin: 08/06/17 09:15 Dose: 240 mg - Objective Vital Signs: Vital Signs Temperature 97.6 F 08/06/17 10:00 Pulse Rate 87 08/06/17 10:00 Respiratory Rate 20 08/06/17 10:00 Blood Pressure 111/63 08/06/17 10:00 O2 Sat by Pulse Oximetry (%) 93 L 08/06/17 09:00 Cardiovascular: Yes: S1, S2 Respiratory: Yes: Regular, CTA Bilaterally Gastrointestinal: Yes: Normal Bowel Sounds, Soft Edema: LLE: 1+, RLE: 1+ Labs: CBC, BMP 08/05/17 06:39 08/06/17 06:00 INR, PTT INR 0.98 (0.82-1.09) 07/30/17 10:40 Problem List - Problems (1) Atrial fibrillation Code(s): I48.91 - UNSPECIFIED ATRIAL FIBRILLATION Qualifiers: Atrial fibrillation type: chronic Qualified Code(s): I48.2 - Chronic atrial fibrillation (2) Acute chronic obstructive pulmonary disease with respiratory distress Code(s): J44.9 - CHRONIC OBSTRUCTIVE PULMONARY DISEASE, UNSPECIFIED; R06.03 - ACUTE RESPIRATORY DISTRESS (3) Acute exacerbation of chronic obstructive pulmonary disease (COPD) Code(s): J44.1 - CHRONIC OBSTRUCTIVE PULMONARY DISEASE W (ACUTE) EXACERBATION (4) CHF exacerbation Code(s): I50.9 - HEART FAILURE, UNSPECIFIED Qualifiers: Congestive heart failure type: unspecified congestive heart failure type Assessment/Plan Problems (1) Acute CHF Assessment/Plan: acute on chronic CHF on iv lasix leg edema is decreasing renal function is ok Code(s): I50.9 - HEART FAILURE, UNSPECIFIED Qualifiers: Congestive heart failure type: systolic Qualified Code(s): I50.21 - Acute systolic (congestive) heart failure (2) Atrial fibrillation Assessment/Plan: eliquis BID dig and verampamil on cardizem po Code(s): I48.91 - UNSPECIFIED ATRIAL FIBRILLATION Qualifiers: Atrial fibrillation type: chronic Qualified Code(s): I48.2 - Chronic atrial fibrillation (3) COPD (chronic obstructive pulmonary disease) Assessment/Plan: prednsione taper iv medrol bronchodilators bipap at night oxygen via [place] Code(s): J44.9 - CHRONIC OBSTRUCTIVE PULMONARY DISEASE, UNSPECIFIED Qualifiers: COPD type: unspecified COPD Qualified Code(s): J44.9 - Chronic obstructive pulmonary disease, unspecified (4) Diabetes mellitus Assessment/Plan: bgm hgba1c noted metofrmin and januvia -stopped levemir prednisone taper Code(s): E11.9 - TYPE 2 DIABETES MELLITUS WITHOUT COMPLICATIONS Qualifiers: Diabetes mellitus type: type 2
[2017-08-06] MEDS ORDERED: INSULIN (NOVOLOG) ASPART 100 UNITS/ML 10ML VIAL ONE ×2 (11:48→21:03)
--- NOTE | 2017-08-06 12:30 | PN ---
Progress Note, Physician Chief Complaint: SOB/REQUIRES NIPPV SUBJECTIVE IMPROVEMENT History of Present Illness: REVIEWED. MULTIPLE ADMISSIONS FOR ACUTE ON CHRONIC RESP FAILURE. - Current Medication List Current Medications: Active Medications Acetaminophen (Tylenol -) 650 mg PO Q6H PRN PRN Reason: BACK PAIN Albuterol Sulfate (Ventolin 0.083% Nebulizer Soln -) 1 amp NEB Q4H PRN PRN Reason: SHORT OF BREATH/WHEEZING Albuterol/Ipratropium (Duoneb -) 1 amp NEB RQID [facility] Last Admin: 08/06/17 08:46 Dose: 1 amp Apixaban (Eliquis -) 5 mg PO BID [facility] Last Admin: 08/06/17 09:15 Dose: 5 mg Atorvastatin Calcium (Lipitor -) 40 mg PO HS [facility] Last Admin: 08/05/17 21:59 Dose: 40 mg Budesonide/Formoterol Fumarate (Symbicort 160/4.5mcg -) 2 puff IH BID [facility] Last Admin: 08/06/17 09:15 Dose: 2 puff Digoxin (Lanoxin -) 0.125 mg PO DAILY [facility] Last Admin: 08/06/17 09:16 Dose: 0.125 mg Fluticasone Propionate (Flonase -) 2 spray NS DAILY [facility] Last Admin: 08/06/17 09:15 Dose: 2 spray Furosemide (Lasix Injection -) 80 mg IVPUSH BID@1000,1600 [facility] Gabapentin (Neurontin -) 300 mg PO TID [facility] Last Admin: 08/06/17 05:32 Dose: 300 mg Famotidine/Sodium Chloride (Pepcid 20 Mg Premixed Ivpb -) 20 mg in 50 mls @ 100 mls/hr IVPB BID [facility] Last Admin: 08/06/17 09:14 Dose: 100 mls/hr Insulin Aspart (Novolog Vial Sliding Scale -) 1 vial SQ ACHS [facility] PRN Reason: Protocol Last Admin: 08/06/17 12:04 Dose: 12 units Insulin Detemir (Levemir Vial) 37 units SQ BID@0700,2200 [facility] Last Admin: 08/06/17 06:08 Dose: 37 units Loratadine (Claritin -) 10 mg PO DAILY [facility] Last Admin: 08/06/17 09:15 Dose: 10 mg Methylprednisolone Sodium Succinate (Solu-Medrol -) 40 mg IVPUSH BID [facility] Sodium Chloride ([place] Nas[place] -) 2 spray NS BID PRN PRN Reason: NASAL CONGESTION Tamsulosin HCl (Flomax -) 0.4 mg PO DAILY@0830 [facility] Last Admin: 08/06/17 09:15 Dose: 0.4 mg Verapamil HCl (Calan Sr -) 240 mg PO BID [facility] Last Admin: 08/06/17 09:15 Dose: 240 mg - Objective Vital Signs: Vital Signs Temperature 97.6 F 08/06/17 10:00 Pulse Rate 87 08/06/17 10:00 Respiratory Rate 20 08/06/17 10:00 Blood Pressure 111/63 08/06/17 10:00 O2 Sat by Pulse Oximetry (%) 93 L 08/06/17 09:00 Constitutional: Yes: Calm Eyes: Yes: EOM Intact HENT: Yes: Normocephalic Neck: Yes: Trachea Midline Cardiovascular: Yes: Pulse Irregular, S1, S2 Respiratory: Yes: Wheezes (ARE MUCH IMPROVED) Gastrointestinal: Yes: Abdomen, Obese Edema: LLE: 1+, RLE: 1+ Labs: CBC, BMP 08/05/17 06:39 08/06/17 06:00 INR, PTT INR 0.98 (0.82-1.09) 07/30/17 10:40 Problem List - Problems (1) Atrial fibrillation Code(s): I48.91 - UNSPECIFIED ATRIAL FIBRILLATION Qualifiers: Atrial fibrillation type: chronic Qualified Code(s): I48.2 - Chronic atrial fibrillation (2) COPD (chronic obstructive pulmonary disease) Code(s): J44.9 - CHRONIC OBSTRUCTIVE PULMONARY DISEASE, UNSPECIFIED Qualifiers: COPD type: unspecified COPD Qualified Code(s): J44.9 - Chronic obstructive pulmonary disease, unspecified (3) Type 2 diabetes mellitus with diabetic neuropathy Code(s): E11.40 - TYPE 2 DIABETES MELLITUS WITH DIABETIC NEUROPATHY, UNSP (4) Acute CHF Code(s): I50.9 - HEART FAILURE, UNSPECIFIED Qualifiers: Congestive heart failure type: systolic Qualified Code(s): I50.21 - Acute systolic (congestive) heart failure (5) Acute bronchitis with COPD Code(s): J44.0 - CHRONIC OBSTRUCTIVE PULMON DISEASE W ACUTE LOWER RESP INFCT (6) Acute chronic obstructive pulmonary disease with respiratory distress Code(s): J44.9 - CHRONIC OBSTRUCTIVE PULMONARY DISEASE, UNSPECIFIED; R06.03 - ACUTE RESPIRATORY DISTRESS (7) Acute on chronic respiratory failure with hypoxia and hypercapnia Code(s): J96.21 - ACUTE AND CHRONIC RESPIRATORY FAILURE WITH HYPOXIA; J96.22 - ACUTE AND CHRONIC RESPIRATORY FAILURE WITH HYPERCAPNIA Assessment/Plan Medrol tapering BD TX Lasix NIPPV as needed and QHS Daily weight Rate control with Digoxin / Verapamil Cardiac Telemetry monitoring Glycemic control Benson VASQUEZ MD
--- NOTE | 2017-08-06 15:48 | PN ---
Progress Note (short form) - Note Progress Note: Chief Complaint: sob History of Present Illness: no cp palps dizzy. sob improving ex-cigs Current Medications Acetaminophen (Tylenol -) 650 mg PO Q6H PRN PRN Reason: BACK PAIN Albuterol Sulfate (Ventolin 0.083% Nebulizer Soln -) 1 amp NEB Q4H PRN PRN Reason: SHORT OF BREATH/WHEEZING Albuterol/Ipratropium (Duoneb -) 1 amp NEB RQID [facility] Last Admin: 08/06/17 11:26 Dose: 1 amp Apixaban (Eliquis -) 5 mg PO BID [facility] Last Admin: 08/06/17 09:15 Dose: 5 mg Atorvastatin Calcium (Lipitor -) 40 mg PO HS [facility] Last Admin: 08/05/17 21:59 Dose: 40 mg Budesonide/Formoterol Fumarate (Symbicort 160/4.5mcg -) 2 puff IH BID [facility] Last Admin: 08/06/17 09:15 Dose: 2 puff Digoxin (Lanoxin -) 0.125 mg PO DAILY [facility] Last Admin: 08/06/17 09:16 Dose: 0.125 mg Fluticasone Propionate (Flonase -) 2 spray NS DAILY [facility] Last Admin: 08/06/17 09:15 Dose: 2 spray Furosemide (Lasix Injection -) 80 mg IVPUSH BID@1000,1600 [facility] Gabapentin (Neurontin -) 300 mg PO TID [facility] Last Admin: 08/06/17 13:53 Dose: 300 mg Famotidine/Sodium Chloride (Pepcid 20 Mg Premixed Ivpb -) 20 mg in 50 mls @ 100 mls/hr IVPB BID [facility] Last Admin: 08/06/17 09:14 Dose: 100 mls/hr Insulin Aspart (Novolog Vial Sliding Scale -) 1 vial SQ ACHS [facility] PRN Reason: Protocol Last Admin: 08/06/17 12:04 Dose: 12 units Insulin Detemir (Levemir Vial) 37 units SQ BID@0700,2200 [facility] Last Admin: 08/06/17 06:08 Dose: 37 units Loratadine (Claritin -) 10 mg PO DAILY [facility] Last Admin: 08/06/17 09:15 Dose: 10 mg Methylprednisolone Sodium Succinate (Solu-Medrol -) 40 mg IVPUSH BID [facility] Sodium Chloride ([place]al [place] -) 2 spray NS BID PRN PRN Reason: NASAL CONGESTION Tamsulosin HCl (Flomax -) 0.4 mg PO DAILY@0830 [facility] Last Admin: 08/06/17 09:15 Dose: 0.4 mg Verapamil HCl (Calan Sr -) 240 mg PO BID [facility] Last Admin: 08/06/17 09:15 Dose: 240 mg Vital Signs - 24 hr 08/05/17 08/05/17 08/05/17 18:10 20:15 21:00 Temperature 97.6 F Pulse Rate 102 H Respiratory 20 20 Rate Blood Pressure 141/90 O2 Sat by Pulse 95 95 Oximetry (%) 08/05/17 08/06/17 08/06/17 22:04 02:00 05:26 Temperature 97 F L 97.5 F L 98.1 F Pulse Rate 92 H 91 H 85 Respiratory 20 20 20 Rate Blood Pressure 140/74 131/79 120/68 O2 Sat by Pulse Oximetry (%) 08/06/17 08/06/17 08/06/17 09:00 09:16 10:00 Temperature 97.6 F Pulse Rate 93 H 87 Respiratory 20 Rate Blood Pressure 111/63 O2 Sat by Pulse 93 L Oximetry (%) 08/06/17 14:00 Temperature 97.7 F Pulse Rate 83 Respiratory 20 Rate Blood Pressure 150/66 O2 Sat by Pulse Oximetry (%) Intake & Output 08/04/17 08/05/17 08/06/17 08/07/17 07:59 07:59 07:59 07:59 Intake Total 645 1250 800 Output Total 3100 2700 2200 1475 Balance -2455 -1450 -1400 -1475 Weight 300 lb 8 oz Constitutional: Yes: uncomfortable, vomiting. Obese Eyes: No: Sclera Icterus HENT: No: Nasal Congestion Cardiovascular: Yes: Pulse Irregular (soft heart sounds), S1, S2, Other (PMI non diplaced). No: JVD (very tds habitus plus bipap mask), Gallop, Murmur Respiratory: Yes: diminished air movment, trace Wheezes. No: Accessory Muscle Use, Rales Gastrointestinal: Yes: Normal Bowel Sounds, Soft. No: Tenderness Extremities: No: Cold Edema: Yes ( trace pretib) Integumentary: No: Jaundice diaphoresis Neurological: Yes: Alert, Oriented (x3) Psychiatric: No: Agitated Labs: CBC, BMP 08/05/17 06:39 08/06/17 06:00 Laboratory Tests 08/04/17 08/05/17 05:30 06:39 Magnesium 2.7 H D Total Bilirubin 0.7 AST 17 ALT 50 Alkaline Phosphatase 67 Digoxin 0.6185 L - ....Imaging EKG: Other (tele: afib, vr acceptable) echo 07/2016: Nl lv/rv. 1+ AR mibi 12/2012: small posterior ischemia vs artifact, nl lvef, no tid cxr: incr markings at bases c/w atx vs early infiltrate a/p: 72 yo male with h/o AFib s/p prior DCCV 12/2015 to SR on AC, HTN, HL, dchf , PVCs with palpitations, morbid obesity, LUCY on bipap, severe COPD, here with sob. a.e. copd: - copd/lucy tx per pulm acute on chronic diastolic chf: - previous admits, wt up to 340s-350s when decomp chf, with signif incr LE edema - d/c wt 04/26 was 324. and was 315 when left here 07/28, then back up to 327 when back with a.e. copd 07/28. - 07/28 copd admit with marked pedal edema treated with lasix 80 iv bid--d/c wt 314. sent out on lasix 40 po bid. - marked weakness with activity at home, cxr with fluid in fissure, ? effusions on image review--pulmonary team does not suspect a.e. copd or PNA - BNP 180 (prior range 90-300). phys exam prohibitively TDS for volume assessment, and cannot get standing wts until pt moves from ICU to tele bed. - 08/01 no standing weight done here (ordered today). incr lasix from 40 iv bid to 80 iv bid. - 08/02-: bmp stable on increased IV lasix, con't. Approaching euvolemia, may be able to increase to daily dosing or PO regimen in the next day or so. - monitor daily labs. weights, i/o's - he resists taking lasix bid at home due to freq urinating. should go home on 80 qd this time paroxysmal AF/flutter -cont eliquis for AC -new dx 2015--req'd amio for HR control then (now off due to severe lung dz), s/ p successful DCCV 12/24, then reverted to afib -defer AVN ablation/PPM unless future signs of HF being driven by rapid HRs (to date thus far, his AF rates are well-controlled at office, and only rapid sec to acute copd). -avoiding BB given severe bronchospasm/copd; would like to avoid long-term amio for same reason -on outpatient regimen here, verapamil 240 bid, and dig (level good here). monitor tele -rate typically becomes elevated in settings of respiratory distress and often improves with bipap therapy. - 08/02: K 3.7 and mg 1.6 this am. + recurrent nausea/vomiting this morning --> RVR to 140's . Given 150 IV amio. 0.25 digoxin IV x 1. Given a total of 25 mg of IV dilt and started on diltiazem drip. -08/04-08/06: hr controlled. cont dig and verapamil. hld: -continue home statin htn: -stable on current meds possible cad: -pt had borderline positive mibi in 2012 vs soft tissue attenuation artifact -never had angina sx's -ECG nonsp ST-T no signif change vs prior. trop neg x2. no anginal sx's -continue medical management with statin, AC without ASA
[2017-08-06] MEDS ORDERED: POTASSIUM CHLORIDE TABS 20 MEQ TABLET.ER (FP) PO ONE (16:00)
[2017-08-06] MEDS: ATORVASTATIN CA 40 MG TABLET (FP) PO SCH (21:09)
[2017-08-07] MEDS: ALBUTEROL SO4 0.083% IH SOL 2.5 MG/3 ML VIAL.NEB. NEB PRN (05:45)
[2017-08-07] MEDS: GABAPENTIN 300 MG CAPSULE (FP) PO SCH ×3 (06:00→21:01)
[2017-08-07] MEDS: INSULIN SLIDING SCALE (NOVOLOG) 1 VIAL SQ SCH ×4 (06:23→22:21)
[2017-08-07] MEDS: INSULIN DETEMIR 100 UNITS/ML MDV SQ SCH ×2 (06:26→22:21)
[2017-08-07 08:10] LABS: CHLORIDE 101 mmol/L (98-107); POTASSIUM 3.8 mmol/L (3.5-5.1); SODIUM 144 mmol/L (136-145)
[2017-08-07 08:20] LABS: ANION GAP 9 (8-16); BLOOD UREA NITROGEN 24 mg/dL (7-18); CALCIUM 8.8 mg/dL (8.5-10.1); CO2 34 mmol/L (21-32); CREATININE 0.6 mg/dL (0.7-1.3); GLUCOSE,RANDOM 128 mg/dL (74-106)
[2017-08-07] MEDS: ALBUTEROL SO4 2.5/IPRATROPIUM 0.5 INH SOL 3 ML VIAL.NEB. NEB SCH ×4 (08:43→20:45)
[2017-08-07] MEDS ORDERED: PT OWN MED DRAWER 7, Y5N ONE ×2 (08:54→20:45)
[2017-08-07] MEDS: VERAPAMIL HCL 240 MG E.R. TABLET (FP) PO SCH ×2 (09:06→21:01)
[2017-08-07] MEDS: LORATADINE 10 MG TABLET PO SCH (09:06)
[2017-08-07] MEDS: APIXABAN 5 MG TABLET PO SCH ×2 (09:06→21:01)
[2017-08-07] MEDS: FUROSEMIDE 40 MG/4 ML INJECTABLE VIAL IVPUSH SCH ×2 (09:06→16:42)
[2017-08-07] MEDS: TAMSULOSIN HCL 0.4 MG CAP.ER.24H (FP) PO SCH (09:06)
[2017-08-07] MEDS: methylPREDNISolone NA SUCC 40 MG/1 ML VIAL IVPUSH SCH ×2 (09:06→21:00)
[2017-08-07] MEDS: BUDESONIDE/FORMETEROL FUMARATE 160/4.5 mcg INHALER IH SCH ×2 (09:07→21:01)
[2017-08-07] MEDS: FLUTICASONE PROP 0.05% 16 GM NASAL SPRAY NS SCH (09:07)
[2017-08-07] MEDS: DIGOXIN 0.125 MG TABLET (FP) PO SCH (09:07)
[2017-08-07] MEDS: FAMOTIDINE 20 MG/50 ML IVPB 20 MG/50 ML MG IVPB SCH ×2 (09:10→21:00)
[2017-08-07] MEDS ORDERED: FLUCONAZOLE 200 MG/D5W 100 ML IVPB ONE ×2 (09:17→12:00)
--- NOTE | 2017-08-07 09:18 | PN ---
Progress Note, Physician History of Present Illness: PT IN ICU FEELS BETTER - Current Medication List Current Medications: Active Medications Acetaminophen (Tylenol -) 650 mg PO Q6H PRN PRN Reason: BACK PAIN Albuterol Sulfate (Ventolin 0.083% Nebulizer Soln -) 1 amp NEB Q4H PRN PRN Reason: SHORT OF BREATH/WHEEZING Last Admin: 08/07/17 05:45 Dose: 1 amp Albuterol/Ipratropium (Duoneb -) 1 amp NEB RQID [facility] Last Admin: 08/07/17 08:43 Dose: 1 amp Apixaban (Eliquis -) 5 mg PO BID [facility] Last Admin: 08/07/17 09:06 Dose: 5 mg Atorvastatin Calcium (Lipitor -) 40 mg PO HS [facility] Last Admin: 08/06/17 21:09 Dose: 40 mg Budesonide/Formoterol Fumarate (Symbicort 160/4.5mcg -) 2 puff IH BID [facility] Last Admin: 08/07/17 09:07 Dose: 2 puff Digoxin (Lanoxin -) 0.125 mg PO DAILY [facility] Last Admin: 08/07/17 09:07 Dose: 0.125 mg Fluticasone Propionate (Flonase -) 2 spray NS DAILY [facility] Last Admin: 08/07/17 09:07 Dose: 2 spray Furosemide (Lasix Injection -) 80 mg IVPUSH BID@1000,1600 [facility] Last Admin: 08/07/17 09:06 Dose: 80 mg Gabapentin (Neurontin -) 300 mg PO TID [facility] Last Admin: 08/07/17 06:00 Dose: 300 mg Famotidine/Sodium Chloride (Pepcid 20 Mg Premixed Ivpb -) 20 mg in 50 mls @ 100 mls/hr IVPB BID [facility] Last Admin: 08/07/17 09:10 Dose: 100 mls/hr Insulin Aspart (Novolog Vial Sliding Scale -) 1 vial SQ ACHS [facility] PRN Reason: Protocol Last Admin: 08/07/17 06:23 Dose: Not Given Insulin Detemir (Levemir Vial) 37 units SQ BID@0700,2200 [facility] Last Admin: 08/07/17 06:26 Dose: 37 units Loratadine (Claritin -) 10 mg PO DAILY [facility] Last Admin: 08/07/17 09:06 Dose: 10 mg Methylprednisolone Sodium Succinate (Solu-Medrol -) 40 mg IVPUSH BID [facility] Last Admin: 08/07/17 09:06 Dose: 40 mg Sodium Chloride ([place] Nasal [place] -) 2 spray NS BID PRN PRN Reason: NASAL CONGESTION Tamsulosin HCl (Flomax -) 0.4 mg PO DAILY@0830 [facility] Last Admin: 08/07/17 09:06 Dose: 0.4 mg Verapamil HCl (Calan Sr -) 240 mg PO BID [facility] Last Admin: 08/07/17 09:06 Dose: 240 mg - Objective Vital Signs: Vital Signs Temperature 98.2 F 08/07/17 06:00 Pulse Rate 86 08/07/17 09:07 Respiratory Rate 20 08/07/17 06:00 Blood Pressure 127/68 08/07/17 06:00 O2 Sat by Pulse Oximetry (%) 96 08/07/17 02:27 Cardiovascular: Yes: S1, S2 Respiratory: Yes: Rales, Rhonchi Gastrointestinal: Yes: Normal Bowel Sounds, Soft Edema: LLE: 1+, RLE: Trace Labs: CBC, BMP 08/05/17 06:39 08/07/17 06:20 INR, PTT INR 0.98 (0.82-1.09) 07/30/17 10:40 Problem List - Problems (1) Atrial fibrillation Code(s): I48.91 - UNSPECIFIED ATRIAL FIBRILLATION Qualifiers: Atrial fibrillation type: chronic Qualified Code(s): I48.2 - Chronic atrial fibrillation (2) Acute chronic obstructive pulmonary disease with respiratory distress Code(s): J44.9 - CHRONIC OBSTRUCTIVE PULMONARY DISEASE, UNSPECIFIED; R06.03 - ACUTE RESPIRATORY DISTRESS (3) Acute exacerbation of chronic obstructive pulmonary disease (COPD) Code(s): J44.1 - CHRONIC OBSTRUCTIVE PULMONARY DISEASE W (ACUTE) EXACERBATION (4) CHF exacerbation Code(s): I50.9 - HEART FAILURE, UNSPECIFIED Qualifiers: Congestive heart failure type: unspecified congestive heart failure type Assessment/Plan Problems (1) Acute CHF Assessment/Plan: acute on chronic CHF on iv lasix leg edema is decreasing renal function is ok Code(s): I50.9 - HEART FAILURE, UNSPECIFIED Qualifiers: Congestive heart failure type: systolic Qualified Code(s): I50.21 - Acute systolic (congestive) heart failure (2) Atrial fibrillation Assessment/Plan: eliquis BID dig and verampamil on cardizem po Code(s): I48.91 - UNSPECIFIED ATRIAL FIBRILLATION Qualifiers: Atrial fibrillation type: chronic Qualified Code(s): I48.2 - Chronic atrial fibrillation (3) COPD (chronic obstructive pulmonary disease) Assessment/Plan: prednsione taper iv medrol bronchodilators bipap at night oxygen via [place] Code(s): J44.9 - CHRONIC OBSTRUCTIVE PULMONARY DISEASE, UNSPECIFIED Qualifiers: COPD type: unspecified COPD Qualified Code(s): J44.9 - Chronic obstructive pulmonary disease, unspecified (4) Diabetes mellitus Assessment/Plan: bgm hgba1c noted metofrmin and januvia -stopped levemir prednisone taper Code(s): E11.9 - TYPE 2 DIABETES MELLITUS WITHOUT COMPLICATIONS Qualifiers: Diabetes mellitus type: type 2
[2017-08-07 10:35] LABS: HEMATOCRIT 41.1 % (35.4-49); HEMOGLOBIN 12.7 GM/dL (11.7-16.9); LYMPH % 3.4 % (8-40); MCH 26.2 pg (25.7-33.7); MEAN CELL VOLUME 84.6 fl (80-96); MEAN PLT VOLUME 8.2 fl (7.5-11.1); MONO % 4.6 % (3.8-10.2); PLATELET COUNT 373 K/MM3 (134-434); RBC 4.86 M/mm3 (4.00-5.60); RDW 20.4 % (11.9-15.9); WHITE BLOOD COUNT 14.4 K/mm3 (4.0-10.0)
[2017-08-07] MEDS ORDERED: INSULIN (NOVOLOG) ASPART 100 UNITS/ML 10ML VIAL ONE (11:44)
[2017-08-07] MEDS: CLOTRIMAZOLE/BETAMET DIPROP 15 GM TUBE TP SCH ×2 (12:25→21:01)
--- NOTE | 2017-08-07 12:37 | PN ---
Progress Note, Physician Chief Complaint: SOB/REQUIRES NIPPV SUBJECTIVE IMPROVEMENT History of Present Illness: REVIEWED. MULTIPLE ADMISSIONS FOR ACUTE ON CHRONIC RESP FAILURE. - Current Medication List Current Medications: Active Medications Acetaminophen (Tylenol -) 650 mg PO Q6H PRN PRN Reason: BACK PAIN Albuterol Sulfate (Ventolin 0.083% Nebulizer Soln -) 1 amp NEB Q4H PRN PRN Reason: SHORT OF BREATH/WHEEZING Last Admin: 08/07/17 05:45 Dose: 1 amp Albuterol/Ipratropium (Duoneb -) 1 amp NEB RQID [facility] Last Admin: 08/07/17 11:53 Dose: 1 amp Apixaban (Eliquis -) 5 mg PO BID [facility] Last Admin: 08/07/17 09:06 Dose: 5 mg Atorvastatin Calcium (Lipitor -) 40 mg PO HS [facility] Last Admin: 08/06/17 21:09 Dose: 40 mg Budesonide/Formoterol Fumarate (Symbicort 160/4.5mcg -) 2 puff IH BID [facility] Last Admin: 08/07/17 09:07 Dose: 2 puff Clotrimazole (Lotrisone Cream (Small Tube)) 1 applic TP BID [facility] Last Admin: 08/07/17 12:25 Dose: 1 applic Digoxin (Lanoxin -) 0.125 mg PO DAILY [facility] Last Admin: 08/07/17 09:07 Dose: 0.125 mg Fluticasone Propionate (Flonase -) 2 spray NS DAILY [facility] Last Admin: 08/07/17 09:07 Dose: 2 spray Furosemide (Lasix Injection -) 80 mg IVPUSH BID@1000,1600 [facility] Last Admin: 08/07/17 09:06 Dose: 80 mg Gabapentin (Neurontin -) 300 mg PO TID [facility] Last Admin: 08/07/17 06:00 Dose: 300 mg Famotidine/Sodium Chloride (Pepcid 20 Mg Premixed Ivpb -) 20 mg in 50 mls @ 100 mls/hr IVPB BID [facility] Last Admin: 08/07/17 09:10 Dose: 100 mls/hr Fluconazole (Diflucan 200 Mg/D5w Premixed Ivpb -) 100 mls @ 100 mls/hr IVPB ONCE ONE Stop: 08/07/17 12:59 Last Admin: 08/07/17 12:25 Dose: 100 mls/hr Insulin Aspart (Novolog Vial Sliding Scale -) 1 vial SQ ACHS [facility] PRN Reason: Protocol Last Admin: 08/07/17 11:49 Dose: Not Given Insulin Detemir (Levemir Vial) 37 units SQ BID@0700,2200 [facility] Last Admin: 08/07/17 06:26 Dose: 37 units Loratadine (Claritin -) 10 mg PO DAILY [facility] Last Admin: 08/07/17 09:06 Dose: 10 mg Methylprednisolone Sodium Succinate (Solu-Medrol -) 40 mg IVPUSH BID [facility] Last Admin: 08/07/17 09:06 Dose: 40 mg Sodium Chloride ([place] Nasal [place] -) 2 spray NS BID PRN PRN Reason: NASAL CONGESTION Tamsulosin HCl (Flomax -) 0.4 mg PO DAILY@0830 [facility] Last Admin: 08/07/17 09:06 Dose: 0.4 mg Verapamil HCl (Calan Sr -) 240 mg PO BID [facility] Last Admin: 08/07/17 09:06 Dose: 240 mg - Objective Vital Signs: Vital Signs Temperature 98.1 F 08/07/17 10:00 Pulse Rate 118 H 08/07/17 10:00 Respiratory Rate 20 08/07/17 10:00 Blood Pressure 119/52 08/07/17 10:00 O2 Sat by Pulse Oximetry (%) 90 L 08/07/17 10:00 Constitutional: Yes: Calm Eyes: Yes: EOM Intact HENT: Yes: Normocephalic Neck: Yes: Trachea Midline Cardiovascular: Yes: S1, S2 Respiratory: Yes: Diminished, Wheezes Gastrointestinal: Yes: Abdomen, Obese Edema: LLE: 1+, RLE: 1+ Neurological: Yes: Alert Psychiatric: Yes: Alert Labs: CBC, BMP 08/07/17 10:05 08/07/17 06:20 INR, PTT INR 0.98 (0.82-1.09) 07/30/17 10:40 - ....Imaging Chest X-ray: Report Reviewed, Image Reviewed Problem List - Problems (1) Atrial fibrillation Code(s): I48.91 - UNSPECIFIED ATRIAL FIBRILLATION Qualifiers: Atrial fibrillation type: chronic Qualified Code(s): I48.2 - Chronic atrial fibrillation (2) COPD (chronic obstructive pulmonary disease) Code(s): J44.9 - CHRONIC OBSTRUCTIVE PULMONARY DISEASE, UNSPECIFIED Qualifiers: COPD type: unspecified COPD Qualified Code(s): J44.9 - Chronic obstructive pulmonary disease, unspecified (3) Type 2 diabetes mellitus with diabetic neuropathy Code(s): E11.40 - TYPE 2 DIABETES MELLITUS WITH DIABETIC NEUROPATHY, UNSP (4) Acute CHF Code(s): I50.9 - HEART FAILURE, UNSPECIFIED Qualifiers: Congestive heart failure type: systolic Qualified Code(s): I50.21 - Acute systolic (congestive) heart failure (5) Acute bronchitis with COPD Code(s): J44.0 - CHRONIC OBSTRUCTIVE PULMON DISEASE W ACUTE LOWER RESP INFCT (6) Acute chronic obstructive pulmonary disease with respiratory distress Code(s): J44.9 - CHRONIC OBSTRUCTIVE PULMONARY DISEASE, UNSPECIFIED; R06.03 - ACUTE RESPIRATORY DISTRESS (7) Acute on chronic respiratory failure with hypoxia and hypercapnia Code(s): J96.21 - ACUTE AND CHRONIC RESPIRATORY FAILURE WITH HYPOXIA; J96.22 - ACUTE AND CHRONIC RESPIRATORY FAILURE WITH HYPERCAPNIA Assessment/Plan Medrol tapering BD TX Lasix NIPPV as needed and QHS Daily weight Rate control with Digoxin / Verapamil Cardiac Telemetry monitoring Glycemic control Benson VASQUEZ MD
--- NOTE | 2017-08-07 15:16 | PN ---
Progress Note (short form) - Note Progress Note: Chief Complaint: sob History of Present Illness: no cp palps dizzy. sob improving, but persists. still with significant dyspnea with ambulation or off of bipap. ex-cigs Current Medications Acetaminophen (Tylenol -) 650 mg PO Q6H PRN PRN Reason: BACK PAIN Albuterol Sulfate (Ventolin 0.083% Nebulizer Soln -) 1 amp NEB Q4H PRN PRN Reason: SHORT OF BREATH/WHEEZING Last Admin: 08/07/17 05:45 Dose: 1 amp Albuterol/Ipratropium (Duoneb -) 1 amp NEB RQID [facility] Last Admin: 08/07/17 11:53 Dose: 1 amp Apixaban (Eliquis -) 5 mg PO BID [facility] Last Admin: 08/07/17 09:06 Dose: 5 mg Atorvastatin Calcium (Lipitor -) 40 mg PO HS [facility] Last Admin: 08/06/17 21:09 Dose: 40 mg Budesonide/Formoterol Fumarate (Symbicort 160/4.5mcg -) 2 puff IH BID [facility] Last Admin: 08/07/17 09:07 Dose: 2 puff Clotrimazole (Lotrisone Cream (Small Tube)) 1 applic TP BID [facility] Last Admin: 08/07/17 12:25 Dose: 1 applic Digoxin (Lanoxin -) 0.125 mg PO DAILY [facility] Last Admin: 08/07/17 09:07 Dose: 0.125 mg Fluticasone Propionate (Flonase -) 2 spray NS DAILY [facility] Last Admin: 08/07/17 09:07 Dose: 2 spray Furosemide (Lasix Injection -) 80 mg IVPUSH BID@1000,1600 [facility] Last Admin: 08/07/17 09:06 Dose: 80 mg Gabapentin (Neurontin -) 300 mg PO TID [facility] Last Admin: 08/07/17 13:36 Dose: 300 mg Famotidine/Sodium Chloride (Pepcid 20 Mg Premixed Ivpb -) 20 mg in 50 mls @ 100 mls/hr IVPB BID [facility] Last Admin: 08/07/17 09:10 Dose: 100 mls/hr Insulin Aspart (Novolog Vial Sliding Scale -) 1 vial SQ ACHS [facility] PRN Reason: Protocol Last Admin: 08/07/17 11:49 Dose: Not Given Insulin Detemir (Levemir Vial) 37 units SQ BID@0700,2200 [facility] Last Admin: 08/07/17 06:26 Dose: 37 units Loratadine (Claritin -) 10 mg PO DAILY [facility] Last Admin: 08/07/17 09:06 Dose: 10 mg Methylprednisolone Sodium Succinate (Solu-Medrol -) 40 mg IVPUSH BID [facility] Last Admin: 08/07/17 09:06 Dose: 40 mg Sodium Chloride ([place] Nasal [place] -) 2 spray NS BID PRN PRN Reason: NASAL CONGESTION Tamsulosin HCl (Flomax -) 0.4 mg PO DAILY@0830 [facility] Last Admin: 08/07/17 09:06 Dose: 0.4 mg Verapamil HCl (Calan Sr -) 240 mg PO BID [facility] Last Admin: 08/07/17 09:06 Dose: 240 mg Vital Signs - 24 hr 08/06/17 08/06/17 08/06/17 18:15 20:23 20:30 Temperature 98.9 F Pulse Rate 102 H Respiratory 20 Rate Blood Pressure 141/81 O2 Sat by Pulse 94 L 96 Oximetry (%) 08/06/17 08/07/17 08/07/17 22:05 00:08 02:00 Temperature 98.2 F 97.5 F L Pulse Rate 99 H 84 Respiratory 24 20 Rate Blood Pressure 157/79 116/61 O2 Sat by Pulse 96 Oximetry (%) 08/07/17 08/07/17 08/07/17 02:27 06:00 09:00 Temperature 98.2 F Pulse Rate 92 H Respiratory 20 Rate Blood Pressure 127/68 O2 Sat by Pulse 96 90 L Oximetry (%) 08/07/17 08/07/17 08/07/17 09:07 10:00 14:36 Temperature 98.1 F 98.3 F Pulse Rate 86 118 H 118 H Respiratory 20 20 Rate Blood Pressure 119/52 124/68 O2 Sat by Pulse 90 L Oximetry (%) Intake & Output 08/05/17 08/06/17 08/07/17 08/08/17 07:59 07:59 07:59 07:59 Intake Total 1250 800 550 Output Total 2700 2200 2175 850 Balance -1450 -1400 -1625 -850 Weight 300 lb 8 oz 301 lb 6 oz Constitutional: Yes: uncomfortable, vomiting. Obese Eyes: No: Sclera Icterus HENT: No: Nasal Congestion Cardiovascular: Yes: Pulse Irregular (soft heart sounds), S1, S2, Other (PMI non diplaced). No: JVD (very tds habitus plus bipap mask), Gallop, Murmur Respiratory: Yes: diminished air movment, trace Wheezes. No: Accessory Muscle Use, Rales Gastrointestinal: Yes: Normal Bowel Sounds, Soft. No: Tenderness Extremities: No: Cold Edema: no Integumentary: No: Jaundice diaphoresis Neurological: Yes: Alert, Oriented (x3) Psychiatric: No: Agitated Labs: CBC, BMP 08/07/17 10:05 08/07/17 06:20 - ....Imaging EKG: Other (tele: afib, vr overall controlled. + breakthrough rvr to 110's-120 's with ambulation) echo 07/2016: Nl lv/rv. 1+ AR mibi 12/2012: small posterior ischemia vs artifact, nl lvef, no tid cxr 08/07/17: some central congestive changes. improved basilar atelectasis. by my review, persistent congestive changes. increased opacification vs. poor penetration of RML, RLL> cxr: incr markings at bases c/w atx vs early infiltrate a/p: 72 yo male with h/o AFib s/p prior DCCV 12/2015 to SR on AC, HTN, HL, dchf , PVCs with palpitations, morbid obesity, LUCY on bipap, severe COPD, here with sob. a.e. copd: - copd/lucy tx per pulm acute on chronic diastolic chf: - previous admits, wt up to 340s-350s when decomp chf, with signif incr LE edema - d/c wt 04/26 was 324. and was 315 when left here 07/28, then back up to 327 when back with a.e. copd 07/28. - 07/28 copd admit with marked pedal edema treated with lasix 80 iv bid--d/c wt 314. sent out on lasix 40 po bid. - marked weakness with activity at home, cxr with fluid in fissure, ? effusions on image review--pulmonary team does not suspect a.e. copd or PNA - BNP 180 (prior range 90-300). phys exam prohibitively TDS for volume assessment, and cannot get standing wts until pt moves from ICU to tele bed. - 08/01 no standing weight done here (ordered today). incr lasix from 40 iv bid to 80 iv bid. - 08/02-: bmp stable on increased IV lasix, still with congestion on cxr 08/07. con't current regimen. - monitor daily labs. weights, i/o's - he resists taking lasix bid at home due to freq urinating. should go home on 80 qd this time paroxysmal AF/flutter -cont eliquis for AC -new dx 2015--req'd amio for HR control then (now off due to severe lung dz), s/ p successful DCCV 12/24, then reverted to afib -defer AVN ablation/PPM unless future signs of HF being driven by rapid HRs (to date thus far, his AF rates are well-controlled at office, and only rapid sec to acute copd). -avoiding BB given severe bronchospasm/copd; would like to avoid long-term amio for same reason -on outpatient regimen here, verapamil 240 bid, and dig (level good here). monitor tele -rate typically becomes elevated in settings of respiratory distress and often improves with bipap therapy. - 08/02: K 3.7 and mg 1.6 this am. + recurrent nausea/vomiting this morning --> RVR to 140's . Given 150 IV amio. 0.25 digoxin IV x 1. Given a total of 25 mg of IV dilt and started on diltiazem drip. -08/04-08/07: hr overall controlled. cont dig and verapamil. hld: -continue home statin htn: -stable on current meds possible cad: -pt had borderline positive mibi in 2012 vs soft tissue attenuation artifact -never had angina sx's -ECG nonsp ST-T no signif change vs prior. trop neg x2. no anginal sx's -continue medical management with statin, AC without ASA
[2017-08-07] MEDS ORDERED: POTASSIUM CHLORIDE TABS 20 MEQ TABLET.ER (FP) PO ONE (15:17)
[2017-08-07] MEDS: ATORVASTATIN CA 40 MG TABLET (FP) PO SCH (21:01)
[2017-08-08] MEDS: ALBUTEROL SO4 0.083% IH SOL 2.5 MG/3 ML VIAL.NEB. NEB PRN (02:24)
[2017-08-08] MEDS ORDERED: INSULIN (NOVOLOG) ASPART 100 UNITS/ML 10ML VIAL ONE ×2 (06:27→21:24)
[2017-08-08] MEDS: INSULIN SLIDING SCALE (NOVOLOG) 1 VIAL SQ SCH ×4 (06:30→21:51)
[2017-08-08] MEDS: INSULIN DETEMIR 100 UNITS/ML MDV SQ SCH ×2 (06:30→21:51)
[2017-08-08] MEDS: GABAPENTIN 300 MG CAPSULE (FP) PO SCH ×3 (06:30→21:48)
[2017-08-08 07:07] LABS: HEMATOCRIT 40.1 % (35.4-49); HEMOGLOBIN 12.4 GM/dL (11.7-16.9); MCH 26.3 pg (25.7-33.7); MEAN CELL VOLUME 84.8 fl (80-96); MEAN PLT VOLUME 8.2 fl (7.5-11.1); PLATELET COUNT 349 K/MM3 (134-434); RBC 4.73 M/mm3 (4.00-5.60); RDW 20.5 % (11.9-15.9); WHITE BLOOD COUNT 13.9 K/mm3 (4.0-10.0)
[2017-08-08 07:33] LABS: ANION GAP 7 (8-16); BLOOD UREA NITROGEN 24 mg/dL (7-18); CALCIUM 8.4 mg/dL (8.5-10.1); CHLORIDE 98 mmol/L (98-107); CO2 36 mmol/L (21-32); GLUCOSE,RANDOM 231 mg/dL (74-106); POTASSIUM 3.9 mmol/L (3.5-5.1); SODIUM 141 mmol/L (136-145)
[2017-08-08 07:48] LABS: CREATININE 0.8 mg/dL (0.7-1.3)
--- NOTE | 2017-08-08 08:02 | PN ---
Progress Note, Physician History of Present Illness: PT IN ICU FEELS BETTER - Current Medication List Current Medications: Active Medications Acetaminophen (Tylenol -) 650 mg PO Q6H PRN PRN Reason: BACK PAIN Albuterol Sulfate (Ventolin 0.083% Nebulizer Soln -) 1 amp NEB Q4H PRN PRN Reason: SHORT OF BREATH/WHEEZING Last Admin: 08/08/17 02:24 Dose: 1 amp Albuterol/Ipratropium (Duoneb -) 1 amp NEB RQID [facility] Last Admin: 08/07/17 20:45 Dose: 1 amp Apixaban (Eliquis -) 5 mg PO BID [facility] Last Admin: 08/07/17 21:01 Dose: 5 mg Atorvastatin Calcium (Lipitor -) 40 mg PO HS [facility] Last Admin: 08/07/17 21:01 Dose: 40 mg Budesonide/Formoterol Fumarate (Symbicort 160/4.5mcg -) 2 puff IH BID [facility] Last Admin: 08/07/17 21:01 Dose: 2 puff Clotrimazole (Lotrisone Cream (Small Tube)) 1 applic TP BID [facility] Last Admin: 08/07/17 21:01 Dose: 1 applic Digoxin (Lanoxin -) 0.125 mg PO DAILY [facility] Last Admin: 08/07/17 09:07 Dose: 0.125 mg Fluticasone Propionate (Flonase -) 2 spray NS DAILY [facility] Last Admin: 08/07/17 09:07 Dose: 2 spray Furosemide (Lasix Injection -) 80 mg IVPUSH BID@1000,1600 [facility] Last Admin: 08/07/17 16:42 Dose: 80 mg Gabapentin (Neurontin -) 300 mg PO TID [facility] Last Admin: 08/08/17 06:30 Dose: 300 mg Famotidine/Sodium Chloride (Pepcid 20 Mg Premixed Ivpb -) 20 mg in 50 mls @ 100 mls/hr IVPB BID [facility] Last Admin: 08/07/17 21:00 Dose: 100 mls/hr Insulin Aspart (Novolog Vial Sliding Scale -) 1 vial SQ ACHS [facility] PRN Reason: Protocol Last Admin: 08/08/17 06:30 Dose: 6 units Insulin Detemir (Levemir Vial) 37 units SQ BID@0700,2200 [facility] Last Admin: 01/29/18 06:30 Dose: 37 units Loratadine (Claritin -) 10 mg PO DAILY [facility] Last Admin: 08/07/17 09:06 Dose: 10 mg Sodium Chloride ([place] Nasal [place] -) 2 spray NS BID PRN PRN Reason: NASAL CONGESTION Tamsulosin HCl (Flomax -) 0.4 mg PO DAILY@0830 [facility] Last Admin: 08/07/17 09:06 Dose: 0.4 mg Verapamil HCl (Calan Sr -) 240 mg PO BID [facility] Last Admin: 08/07/17 21:01 Dose: 240 mg - Objective Vital Signs: Vital Signs Temperature 98.3 F 08/08/17 06:00 Pulse Rate 87 08/08/17 06:00 Respiratory Rate 20 08/08/17 06:00 Blood Pressure 122/68 08/08/17 06:00 O2 Sat by Pulse Oximetry (%) 94 L 08/07/17 21:00 Cardiovascular: Yes: S1, S2 Respiratory: Yes: Rales (at the bases improved) Labs: CBC, BMP 08/08/17 06:23 INR, PTT INR 0.98 (0.82-1.09) 07/30/17 10:40 Problem List - Problems (1) Atrial fibrillation Code(s): I48.91 - UNSPECIFIED ATRIAL FIBRILLATION Qualifiers: Atrial fibrillation type: chronic Qualified Code(s): I48.2 - Chronic atrial fibrillation (2) Acute chronic obstructive pulmonary disease with respiratory distress Code(s): J44.9 - CHRONIC OBSTRUCTIVE PULMONARY DISEASE, UNSPECIFIED; R06.03 - ACUTE RESPIRATORY DISTRESS (3) Acute exacerbation of chronic obstructive pulmonary disease (COPD) Code(s): J44.1 - CHRONIC OBSTRUCTIVE PULMONARY DISEASE W (ACUTE) EXACERBATION (4) CHF exacerbation Code(s): I50.9 - HEART FAILURE, UNSPECIFIED Qualifiers: Congestive heart failure type: unspecified congestive heart failure type Assessment/Plan Problems (1) Acute CHF Assessment/Plan: acute on chronic CHF on iv lasix leg edema is decreasing renal function is ok Code(s): I50.9 - HEART FAILURE, UNSPECIFIED Qualifiers: Congestive heart failure type: systolic Qualified Code(s): I50.21 - Acute systolic (congestive) heart failure (2) Atrial fibrillation Assessment/Plan: eliquis BID dig and verampamil on cardizem po Code(s): I48.91 - UNSPECIFIED ATRIAL FIBRILLATION Qualifiers: Atrial fibrillation type: chronic Qualified Code(s): I48.2 - Chronic atrial fibrillation (3) COPD (chronic obstructive pulmonary disease) Assessment/Plan: prednsione taper iv medrol bronchodilators bipap at night oxygen via [place] Code(s): J44.9 - CHRONIC OBSTRUCTIVE PULMONARY DISEASE, UNSPECIFIED Qualifiers: COPD type: unspecified COPD Qualified Code(s): J44.9 - Chronic obstructive pulmonary disease, unspecified (4) Diabetes mellitus Assessment/Plan: bgm hgba1c noted metofrmin and januvia -stopped levemir prednisone taper Code(s): E11.9 - TYPE 2 DIABETES MELLITUS WITHOUT COMPLICATIONS Qualifiers: Diabetes mellitus type: type 2
[2017-08-08] MEDS: ALBUTEROL SO4 2.5/IPRATROPIUM 0.5 INH SOL 3 ML VIAL.NEB. NEB SCH ×4 (08:19→20:41)
--- NOTE | 2017-08-08 08:43 | PN ---
Progress Note, Physician - Current Medication List Current Medications: Active Medications Acetaminophen (Tylenol -) 650 mg PO Q6H PRN PRN Reason: BACK PAIN Albuterol Sulfate (Ventolin 0.083% Nebulizer Soln -) 1 amp NEB Q4H PRN PRN Reason: SHORT OF BREATH/WHEEZING Last Admin: 08/08/17 02:24 Dose: 1 amp Albuterol/Ipratropium (Duoneb -) 1 amp NEB RQID [facility] Last Admin: 08/08/17 08:19 Dose: 1 amp Apixaban (Eliquis -) 5 mg PO BID [facility] Last Admin: 08/07/17 21:01 Dose: 5 mg Atorvastatin Calcium (Lipitor -) 40 mg PO HS [facility] Last Admin: 08/07/17 21:01 Dose: 40 mg Budesonide/Formoterol Fumarate (Symbicort 160/4.5mcg -) 2 puff IH BID [facility] Last Admin: 08/07/17 21:01 Dose: 2 puff Clotrimazole (Lotrisone Cream (Small Tube)) 1 applic TP BID [facility] Last Admin: 08/07/17 21:01 Dose: 1 applic Digoxin (Lanoxin -) 0.125 mg PO DAILY [facility] Last Admin: 08/07/17 09:07 Dose: 0.125 mg Fluticasone Propionate (Flonase -) 2 spray NS DAILY [facility] Last Admin: 08/07/17 09:07 Dose: 2 spray Furosemide (Lasix Injection -) 80 mg IVPUSH BID@1000,1600 [facility] Last Admin: 08/07/17 16:42 Dose: 80 mg Gabapentin (Neurontin -) 300 mg PO TID [facility] Last Admin: 08/08/17 06:30 Dose: 300 mg Famotidine/Sodium Chloride (Pepcid 20 Mg Premixed Ivpb -) 20 mg in 50 mls @ 100 mls/hr IVPB BID [facility] Last Admin: 08/07/17 21:00 Dose: 100 mls/hr Insulin Aspart (Novolog Vial Sliding Scale -) 1 vial SQ ACHS [facility] PRN Reason: Protocol Last Admin: 08/08/17 06:30 Dose: 6 units Insulin Detemir (Levemir Vial) 37 units SQ BID@0700,2200 [facility] Last Admin: 08/08/17 06:30 Dose: 37 units Loratadine (Claritin -) 10 mg PO DAILY [facility] Last Admin: 08/07/17 09:06 Dose: 10 mg Prednisone (Deltasone -) 40 mg PO BID [facility] Sodium Chloride ([place] Nasal [place] -) 2 spray NS BID PRN PRN Reason: NASAL CONGESTION Tamsulosin HCl (Flomax -) 0.4 mg PO DAILY@0830 [facility] Last Admin: 08/07/17 09:06 Dose: 0.4 mg Verapamil HCl (Calan Sr -) 240 mg PO BID [facility] Last Admin: 08/07/17 21:01 Dose: 240 mg - Objective Vital Signs: Vital Signs Temperature 98.3 F 08/08/17 06:00 Pulse Rate 87 08/08/17 06:00 Respiratory Rate 20 08/08/17 06:00 Blood Pressure 122/68 08/08/17 06:00 O2 Sat by Pulse Oximetry (%) 96 08/08/17 08:20 Labs: CBC, BMP 08/08/17 06:23 08/08/17 06:23 INR, PTT INR 0.98 (0.82-1.09) 07/30/17 10:40 Assessment/Plan echo 07/2016: Nl lv/rv. 1+ AR mibi 12/2012: small posterior ischemia vs artifact, nl lvef, no tid cxr 08/07/17: some central congestive changes. improved basilar atelectasis. by my review, persistent congestive changes. increased opacification vs. poor penetration of RML, RLL> cxr: incr markings at bases c/w atx vs early infiltrate a/p: 72 yo male with h/o AFib s/p prior DCCV 12/2015 to on AC, HTN, HL, dchf , PVCs with palpitations, morbid obesity, LUCY on bipap, severe COPD, here with sob. a.e. copd: - copd/lucy tx per pulm acute on chronic diastolic chf: - previous admits, wt up to 340s-350s when decomp chf, with signif incr LE edema - d/c wt 04/26 was 324. and was 315 when left here 07/28, then back up to 327 when back with a.e. copd 07/28. - 07/28 copd admit with marked pedal edema treated with lasix 80 iv bid--d/c wt 314. sent out on lasix 40 po bid. - marked weakness with activity at home, cxr with fluid in fissure, ? effusions on image review--pulmonary team does not suspect a.e. copd or PNA - BNP 180 (prior range 90-300). phys exam prohibitively TDS for volume assessment, and cannot get standing wts until pt moves from ICU to tele bed. - 08/01 no standing weight done here (ordered today). incr lasix from 40 iv bid to 80 iv bid. - 08/02-: bmp stable on increased IV lasix, still with congestion on cxr 08/07. con't current regimen. - monitor daily labs. weights, i/o's - he resists taking lasix bid at home due to freq urinating. should go home on 80 qd this time paroxysmal AF/flutter -cont eliquis for AC -new dx 2015--req'd amio for HR control then (now off due to severe lung dz), s/ p successful DCCV 12/24, then reverted to afib -defer AVN ablation/PPM unless future signs of HF being driven by rapid HRs (to date thus far, his AF rates are well-controlled at office, and only rapid sec to acute copd). -avoiding BB given severe bronchospasm/copd; would like to avoid long-term amio for same reason -on outpatient regimen here, verapamil 240 bid, and dig (level good here). monitor tele -rate typically becomes elevated in settings of respiratory distress and often improves with bipap therapy. - 08/02: K 3.7 and mg 1.6 this am. + recurrent nausea/vomiting this morning --> RVR to 140's . Given 150 IV amio. 0.25 digoxin IV x 1. Given a total of 25 mg of IV dilt and started on diltiazem drip. -08/04-08/07: hr overall controlled. cont dig and verapamil. hld: -continue home statin htn: -stable on current meds possible cad: -pt had borderline positive mibi in 2012 vs soft tissue attenuation artifact -never had angina sx's -ECG nonsp ST-T no signif change vs prior. trop neg x2. no anginal sx's -continue medical management with statin, AC without ASA
--- NOTE | 2017-08-08 08:50 | PN ---
Progress Note, Physician Chief Complaint: chf History of Present Illness: still sob, feels less able to take deep breath than previously here scant cough, + wheeze at times (not severe) no cp, palpit - Current Medication List Current Medications: Active Medications Acetaminophen (Tylenol -) 650 mg PO Q6H PRN PRN Reason: BACK PAIN Albuterol Sulfate (Ventolin 0.083% Nebulizer Soln -) 1 amp NEB Q4H PRN PRN Reason: SHORT OF BREATH/WHEEZING Last Admin: 08/08/17 02:24 Dose: 1 amp Albuterol/Ipratropium (Duoneb -) 1 amp NEB RQID [facility] Last Admin: 08/08/17 08:19 Dose: 1 amp Apixaban (Eliquis -) 5 mg PO BID [facility] Last Admin: 08/07/17 21:01 Dose: 5 mg Atorvastatin Calcium (Lipitor -) 40 mg PO HS [facility] Last Admin: 08/07/17 21:01 Dose: 40 mg Budesonide/Formoterol Fumarate (Symbicort 160/4.5mcg -) 2 puff IH BID [facility] Last Admin: 08/07/17 21:01 Dose: 2 puff Clotrimazole (Lotrisone Cream (Small Tube)) 1 applic TP BID [facility] Last Admin: 08/07/17 21:01 Dose: 1 applic Digoxin (Lanoxin -) 0.125 mg PO DAILY [facility] Last Admin: 08/07/17 09:07 Dose: 0.125 mg Fluticasone Propionate (Flonase -) 2 spray NS DAILY [facility] Last Admin: 08/07/17 09:07 Dose: 2 spray Furosemide (Lasix Injection -) 80 mg IVPUSH BID@1000,1600 [facility] Last Admin: 08/07/17 16:42 Dose: 80 mg Gabapentin (Neurontin -) 300 mg PO TID [facility] Last Admin: 08/08/17 06:30 Dose: 300 mg Famotidine/Sodium Chloride (Pepcid 20 Mg Premixed Ivpb -) 20 mg in 50 mls @ 100 mls/hr IVPB BID [facility] Last Admin: 08/07/17 21:00 Dose: 100 mls/hr Insulin Aspart (Novolog Vial Sliding Scale -) 1 vial SQ ACHS [facility] PRN Reason: Protocol Last Admin: 08/08/17 06:30 Dose: 6 units Insulin Detemir (Levemir Vial) 37 units SQ BID@0700,2200 [facility] Last Admin: 08/08/17 06:30 Dose: 37 units Loratadine (Claritin -) 10 mg PO DAILY [facility] Last Admin: 08/07/17 09:06 Dose: 10 mg Prednisone (Deltasone -) 40 mg PO BID [facility] Sodium Chloride ([place] Nasal [place] -) 2 spray NS BID PRN PRN Reason: NASAL CONGESTION Tamsulosin HCl (Flomax -) 0.4 mg PO DAILY@0830 [facility] Last Admin: 08/07/17 09:06 Dose: 0.4 mg Verapamil HCl (Calan Sr -) 240 mg PO BID [facility] Last Admin: 08/07/17 21:01 Dose: 240 mg - Objective Vital Signs: Vital Signs Temperature 98.3 F 08/08/17 06:00 Pulse Rate 87 08/08/17 06:00 Respiratory Rate 20 08/08/17 06:00 Blood Pressure 122/68 08/08/17 06:00 O2 Sat by Pulse Oximetry (%) 96 08/08/17 08:20 Constitutional: Yes: No Distress, Calm, Obese Eyes: No: Sclera Icterus HENT: No: Nasal Congestion Cardiovascular: Yes: Pulse Irregular, S1, S2, Other (PMI non diplaced). No: JVD (++ tds habitus), Gallop, Murmur Respiratory: Yes: CTA Bilaterally, Wheezes. No: Accessory Muscle Use Gastrointestinal: Yes: Normal Bowel Sounds, Soft. No: Tenderness Musculoskeletal: Yes: Other (No kyphosis) Extremities: No: Cold Edema: No Integumentary: No: Jaundice Neurological: Yes: Alert, Oriented (x3) Psychiatric: No: Agitated Labs: CBC, BMP 08/08/17 06:23 08/08/17 06:23 INR, PTT INR 0.98 (0.82-1.09) 07/30/17 10:40 - ....Imaging EKG: Other (tele: afib 90s-110s with frequent bursts 130-150s) Assessment/Plan Echo 07/2016: Nl lv/rv. 1+ AR MPI 2012: small posterior ischemia vs artifact, nl lvef, no tid cxr 08/07/17: some central congestive changes. improved basilar atelectasis. by my review, persistent congestive changes. increased opacification vs. poor penetration of RML, RLL> cxr: incr markings at bases c/w atx vs early infiltrate a/p: 72 yo male with h/o AFib s/p prior DCCV 12/2015 to SR on AC, HTN, HL, dchf , PVCs with palpitations, morbid obesity, LUCY on bipap, severe COPD, here with sob. a.e. copd: - copd/lucy tx per pulm acute on chronic diastolic chf: - previous admits, wt up to 340s-350s when decomp chf, with signif incr LE edema - d/c wt 04/26 was 324. and was 315 when left here 07/28, then back up to 327 when back with a.e. copd 07/28. - 07/28 copd admit with marked pedal edema treated with lasix 80 iv bid--d/c wt 314. sent out on lasix 40 po bid. - marked weakness with activity at home, cxr with fluid in fissure, ? effusions on image review--pulmonary team does not suspect a.e. copd or PNA - BNP 180 (prior range 90-300). phys exam prohibitively TDS for volume assessment, and cannot get standing wts until pt moves from ICU to tele bed. - 08/01 no standing weight done here (ordered today). incr lasix from 40 iv bid to 80 iv bid. - 08/02-: bmp stable on increased IV lasix, still with congestion on cxr 08/07. con't current regimen. - 08/08: wt down to 297. lytes stable. pedal edema resolved. CXR 08/07 with persistent diffuse interstitial infiltrates, ? intra-alveolar infiltrates/edema at bases, small L effusion new vs prior. ? ongoing uncontrolled AF rates driving ongoing diast chf (vs vice versa). - incr lasix to 100 iv bid, give one dose metolazone 5mg today. rpt cxr in am-- consider CT chest if uncertainty regarding the dx. AF hr control as doing. - monitor daily labs. weights, i/o - he resists taking lasix bid at home due to freq urinating. should go home on 80 qd this time paroxysmal AF/flutter -cont eliquis for AC -new dx 2015--req'd amio for HR control then (now off due to severe lung dz), s/ p successful DCCV 12/24, then reverted to afib -defer AVN ablation/PPM unless future signs of HF being driven by rapid HRs (to date thus far, his AF rates are well-controlled at office, and only rapid sec to acute copd). -avoiding BB given severe bronchospasm/copd; would like to avoid long-term amio for same reason -on outpatient regimen here, verapamil 240 bid, and dig (level good here). monitor tele -rate typically becomes elevated in settings of respiratory distress and often improves with bipap therapy. - 08/02: K 3.7 and mg 1.6 this am. + recurrent nausea/vomiting this morning --> RVR to 140's . Given 150 IV amio. 0.25 digoxin IV x 1. Given a total of 25 mg of IV dilt and started on diltiazem drip. -08/04-08/07: hr overall controlled. cont dig and verapamil. -08/08: HR poorly controlled, ? contributing to ongoing CHF. running out of AVN charles options here. incr dig to 0.25mg qd (daily levels ordered). aggressive diuresis attempt to continue until pt clearly dry--if remains uncontrolled HR at that time will have to refer to EP to consider AVN ablation/PM (pt advised of this possibility today) hld: -continue home statin htn: -stable on current meds possible cad: -pt had borderline positive mibi in 2012 vs soft tissue attenuation artifact -never had angina sx's -ECG nonsp ST-T no signif change vs prior. trop neg x2. no anginal sx's -continue medical management with statin, AC without ASA
[2017-08-08 08:52] LABS: ANISOCYTOSIS 2+; MACROCYTOSIS 0; PLATELET ESTIMATE NORMAL
[2017-08-08] MEDS: LORATADINE 10 MG TABLET PO SCH (10:46)
[2017-08-08] MEDS: FLUTICASONE PROP 0.05% 16 GM NASAL SPRAY NS SCH (10:46)
[2017-08-08] MEDS: FAMOTIDINE 20 MG/50 ML IVPB 20 MG/50 ML MG IVPB SCH ×2 (10:46→21:50)
[2017-08-08] MEDS: FUROSEMIDE 40 MG/4 ML INJECTABLE VIAL IVPUSH SCH (10:46)
[2017-08-08] MEDS: TAMSULOSIN HCL 0.4 MG CAP.ER.24H (FP) PO SCH (10:46)
[2017-08-08] MEDS: VERAPAMIL HCL 240 MG E.R. TABLET (FP) PO SCH ×2 (10:46→21:48)
[2017-08-08] MEDS: APIXABAN 5 MG TABLET PO SCH ×2 (10:46→21:48)
[2017-08-08] MEDS: predniSONE 20 MG TABLET (UD) PO SCH ×2 (10:46→21:48)
[2017-08-08] MEDS: CLOTRIMAZOLE/BETAMET DIPROP 15 GM TUBE TP SCH ×2 (10:46→21:50)
[2017-08-08] MEDS: DIGOXIN 0.125 MG TABLET (FP) PO SCH (10:46)
[2017-08-08] MEDS: BUDESONIDE/FORMETEROL FUMARATE 160/4.5 mcg INHALER IH SCH ×2 (10:47→21:50)
[2017-08-08] MEDS ORDERED: POTASSIUM CHLORIDE ORAL LIQUID 20 MEQ/15 ML PO ONE (11:50)
[2017-08-08] MEDS ORDERED: DIGOXIN 0.125 MG TABLET (FP) PO ONE (11:55)
--- NOTE | 2017-08-08 13:07 | EKG ---
Test Reason : Blood Pressure : / mmHG Vent. Rate : 128 BPM Atrial Rate : 131 BPM P-R Int : 000 ms QRS Dur : 088 ms QT Int : 298 ms P-R-T Axes : 000 068 -24 degrees QTc Int : 435 ms ATRIAL FIBRILLATION WITH RAPID VENTRICULAR RESPONSE WITH PREMATURE VENTRICULAR OR ABERRANTLY CONDUCTED COMPLEXES NONSPECIFIC ST AND T WAVE ABNORMALITY ABNORMAL ECG WHEN COMPARED WITH ECG OF 03-AUG-2017 08:28, NO SIGNIFICANT CHANGE WAS FOUND Confirmed by MARILY WILDE, DIA ([id number]) on 08/08/2017 1:06:51 PM Referred By: Confirmed By:DIA CALIXTO MD
[2017-08-08] MEDS: METOLAZONE 2.5 MG TABLET (FP) PO ONE ×2 (13:57→17:15)
--- NOTE | 2017-08-08 16:41 | PN ---
Progress Note, Physician History of Present Illness: PULMONARY ALERT,DYSPNEIC,+CONGESTION - Current Medication List Current Medications: Active Medications Acetaminophen (Tylenol -) 650 mg PO Q6H PRN PRN Reason: BACK PAIN Albuterol Sulfate (Ventolin 0.083% Nebulizer Soln -) 1 amp NEB Q4H PRN PRN Reason: SHORT OF BREATH/WHEEZING Last Admin: 08/08/17 02:24 Dose: 1 amp Albuterol/Ipratropium (Duoneb -) 1 amp NEB RQID [facility] Last Admin: 08/08/17 15:58 Dose: 1 amp Apixaban (Eliquis -) 5 mg PO BID [facility] Last Admin: 08/08/17 10:46 Dose: 5 mg Atorvastatin Calcium (Lipitor -) 40 mg PO HS [facility] Last Admin: 08/07/17 21:01 Dose: 40 mg Budesonide/Formoterol Fumarate (Symbicort 160/4.5mcg -) 2 puff IH BID [facility] Last Admin: 08/08/17 10:47 Dose: 2 puff Clotrimazole (Lotrisone Cream (Small Tube)) 1 applic TP BID [facility] Last Admin: 08/08/17 10:46 Dose: 1 applic Digoxin (Lanoxin -) 0.25 mg PO DAILY [facility] Fluticasone Propionate (Flonase -) 2 spray NS DAILY [facility] Last Admin: 08/08/17 10:46 Dose: 2 spray Furosemide (Lasix Injection -) 100 mg IVPUSH BID@1000,1600 [facility] Gabapentin (Neurontin -) 300 mg PO TID [facility] Last Admin: 08/08/17 13:56 Dose: 300 mg Famotidine/Sodium Chloride (Pepcid 20 Mg Premixed Ivpb -) 20 mg in 50 mls @ 100 mls/hr IVPB BID [facility] Last Admin: 08/08/17 10:46 Dose: 100 mls/hr Insulin Aspart (Novolog Vial Sliding Scale -) 1 vial SQ ACHS [facility] PRN Reason: Protocol Last Admin: 08/08/17 12:12 Dose: 6 units Insulin Detemir (Levemir Vial) 37 units SQ BID@0700,2200 [facility] Last Admin: 08/08/17 06:30 Dose: 37 units Loratadine (Claritin -) 10 mg PO DAILY [facility] Last Admin: 08/08/17 10:46 Dose: 10 mg Prednisone (Deltasone -) 40 mg PO BID [facility] Last Admin: 08/08/17 10:46 Dose: 40 mg Sodium Chloride ([place] Nasal [place] -) 2 spray NS BID PRN PRN Reason: NASAL CONGESTION Tamsulosin HCl (Flomax -) 0.4 mg PO DAILY@0830 [facility] Last Admin: 08/08/17 10:46 Dose: 0.4 mg Verapamil HCl ([place] Sr -) 240 mg PO BID [facility] Last Admin: 08/08/17 10:46 Dose: 240 mg - Objective Vital Signs: Vital Signs Temperature 97.8 F 08/08/17 13:55 Pulse Rate 92 H 08/08/17 13:55 Respiratory Rate 22 08/08/17 13:55 Blood Pressure 117/75 08/08/17 13:55 O2 Sat by Pulse Oximetry (%) 96 08/08/17 08:20 Constitutional: Yes: Calm, Obese Eyes: Yes: WNL HENT: Yes: WNL Neck: Yes: WNL Cardiovascular: Yes: Pulse Irregular, S1, S2 Respiratory: Yes: Wheezes (BILATERAL WHEEZES) Gastrointestinal: Yes: Normal Bowel Sounds, Soft Extremities: Yes: WNL Edema: Yes Labs: CBC, BMP 08/08/17 06:23 08/08/17 06:23 INR, PTT INR 0.98 (0.82-1.09) 07/30/17 10:40 Assessment/Plan ASSESSMENT AND PLAN: Atrial Fibrillation with RVR Acute on Chronic Diastolic Heart Failure Acute COPD Exacerbation Acute on Chronic Hypoxic and Hypercapneic Respiratory Failure HTN Hypercholesterolemia Morbid Obesity LUCY - IV lasix - monitor urine output, creatinine - daily weights, I/Os - continue anticoagulation - prednisone - inhaled bronchodilators - O2 to keep Spo2 >88% - BiPAP at night and PRN during day DR STACK
[2017-08-08] MEDS: FUROSEMIDE 100 MG/10 ML INJECTABLE VIAL IVPUSH SCH (17:15)
[2017-08-08] MEDS ORDERED: PT OWN MED DRAWER 7, Y5N ONE (21:24)
[2017-08-08] MEDS: ATORVASTATIN CA 40 MG TABLET (FP) PO SCH (21:48)
[2017-08-09] MEDS: ALBUTEROL SO4 0.083% IH SOL 2.5 MG/3 ML VIAL.NEB. NEB PRN (05:48)
[2017-08-09] MEDS: GABAPENTIN 300 MG CAPSULE (FP) PO SCH ×3 (06:25→23:09)
[2017-08-09] MEDS: INSULIN DETEMIR 100 UNITS/ML MDV SQ SCH ×2 (06:25→23:09)
[2017-08-09] MEDS: INSULIN SLIDING SCALE (NOVOLOG) 1 VIAL SQ SCH ×4 (06:26→23:10)
[2017-08-09 08:24] LABS: ANION GAP 8 (8-16); BLOOD UREA NITROGEN 29 mg/dL (7-18); CALCIUM 8.8 mg/dL (8.5-10.1); CHLORIDE 97 mmol/L (98-107); CO2 34 mmol/L (21-32); GLUCOSE,RANDOM 282 mg/dL (74-106); POTASSIUM 4.1 mmol/L (3.5-5.1); SODIUM 139 mmol/L (136-145)
[2017-08-09 08:39] LABS: CREATININE 0.9 mg/dL (0.7-1.3)
--- NOTE | 2017-08-09 09:42 | PN ---
Progress Note, Physician History of Present Illness: c/o difficulty urinating - Current Medication List Current Medications: Active Medications Acetaminophen (Tylenol -) 650 mg PO Q6H PRN PRN Reason: BACK PAIN Albuterol Sulfate (Ventolin 0.083% Nebulizer Soln -) 1 amp NEB Q4H PRN PRN Reason: SHORT OF BREATH/WHEEZING Last Admin: 08/09/17 05:48 Dose: 1 amp Albuterol/Ipratropium (Duoneb -) 1 amp NEB RQID [facility] Last Admin: 08/08/17 20:41 Dose: 1 amp Apixaban (Eliquis -) 5 mg PO BID [facility] Last Admin: 08/08/17 21:48 Dose: 5 mg Atorvastatin Calcium (Lipitor -) 40 mg PO HS [facility] Last Admin: 08/08/17 21:48 Dose: 40 mg Budesonide/Formoterol Fumarate (Symbicort 160/4.5mcg -) 2 puff IH BID [facility] Last Admin: 08/08/17 21:50 Dose: 2 puff Clotrimazole (Lotrisone Cream (Small Tube)) 1 applic TP BID [facility] Last Admin: 08/08/17 21:50 Dose: 1 applic Digoxin (Lanoxin -) 0.25 mg PO DAILY [facility] Finasteride (Proscar -) 5 mg PO DAILY [facility] Fluticasone Propionate (Flonase -) 2 spray NS DAILY [facility] Last Admin: 08/08/17 10:46 Dose: 2 spray Furosemide (Lasix Injection -) 100 mg IVPUSH BID@1000,1600 [facility] Last Admin: 08/08/17 17:15 Dose: Not Given Gabapentin (Neurontin -) 300 mg PO TID [facility] Last Admin: 08/09/17 06:25 Dose: 300 mg Famotidine/Sodium Chloride (Pepcid 20 Mg Premixed Ivpb -) 20 mg in 50 mls @ 100 mls/hr IVPB BID [facility] Last Admin: 08/08/17 21:50 Dose: 100 mls/hr Insulin Aspart (Novolog Vial Sliding Scale -) 1 vial SQ ACHS [facility] PRN Reason: Protocol Last Admin: 08/09/17 06:26 Dose: 8 units Insulin Detemir (Levemir Vial) 37 units SQ BID@0700,2200 [facility] Last Admin: 08/09/17 06:25 Dose: 37 units Loratadine (Claritin -) 10 mg PO DAILY [facility] Last Admin: 08/08/17 10:46 Dose: 10 mg Prednisone (Deltasone -) 40 mg PO BID [facility] Last Admin: 08/08/17 21:48 Dose: 40 mg Sodium Chloride ([place] Nasal [place] -) 2 spray NS BID PRN PRN Reason: NASAL CONGESTION Tamsulosin HCl (Flomax -) 0.8 mg PO DAILY@0830 [facility] Verapamil HCl (Calan Sr -) 240 mg PO BID [facility] Last Admin: 08/08/17 21:48 Dose: 240 mg - Objective Vital Signs: Vital Signs Temperature 97.4 F L 08/09/17 06:00 Pulse Rate 102 H 08/09/17 06:00 Respiratory Rate 24 08/09/17 06:00 Blood Pressure 100/78 08/09/17 06:00 O2 Sat by Pulse Oximetry (%) 95 08/08/17 21:00 Cardiovascular: Yes: S1, S2 Respiratory: Yes: On Nasal O2, Rales Gastrointestinal: Yes: Normal Bowel Sounds, Soft Labs: CBC, BMP 08/08/17 06:23 08/09/17 06:30 INR, PTT INR 0.98 (0.82-1.09) 07/30/17 10:40 Problem List - Problems (1) Atrial fibrillation Code(s): I48.91 - UNSPECIFIED ATRIAL FIBRILLATION Qualifiers: Atrial fibrillation type: chronic Qualified Code(s): I48.2 - Chronic atrial fibrillation (2) Acute chronic obstructive pulmonary disease with respiratory distress Code(s): J44.9 - CHRONIC OBSTRUCTIVE PULMONARY DISEASE, UNSPECIFIED; R06.03 - ACUTE RESPIRATORY DISTRESS (3) Acute exacerbation of chronic obstructive pulmonary disease (COPD) Code(s): J44.1 - CHRONIC OBSTRUCTIVE PULMONARY DISEASE W (ACUTE) EXACERBATION (4) CHF exacerbation Code(s): I50.9 - HEART FAILURE, UNSPECIFIED Qualifiers: Congestive heart failure type: unspecified congestive heart failure type Assessment/Plan Problems (1) Acute CHF Assessment/Plan: acute on chronic CHF on iv lasix leg edema is decreasing renal function is ok Code(s): I50.9 - HEART FAILURE, UNSPECIFIED Qualifiers: Congestive heart failure type: systolic Qualified Code(s): I50.21 - Acute systolic (congestive) heart failure (2) Atrial fibrillation Assessment/Plan: eliquis BID dig and verampamil on cardizem po Code(s): I48.91 - UNSPECIFIED ATRIAL FIBRILLATION Qualifiers: Atrial fibrillation type: chronic Qualified Code(s): I48.2 - Chronic atrial fibrillation (3) COPD (chronic obstructive pulmonary disease) Assessment/Plan: prednsione taper iv medrol bronchodilators bipap at night oxygen via [place] Code(s): J44.9 - CHRONIC OBSTRUCTIVE PULMONARY DISEASE, UNSPECIFIED Qualifiers: COPD type: unspecified COPD Qualified Code(s): J44.9 - Chronic obstructive pulmonary disease, unspecified (4) Diabetes mellitus Assessment/Plan: bgm [id number] noted metofrmin and januvia -stopped levemir prednisone taper Code(s): E11.9 - TYPE 2 DIABETES MELLITUS WITHOUT COMPLICATIONS Qualifiers: Diabetes mellitus type: type 2 (5) Bph/Urinery Retention Assessment/Plan: urology flomax 0.8 proscar 5 mg
[2017-08-09] MEDS: ALBUTEROL SO4 2.5/IPRATROPIUM 0.5 INH SOL 3 ML VIAL.NEB. NEB SCH ×3 (09:50→17:00)
--- NOTE | 2017-08-09 10:45 | PN ---
Progress Note (short form) - Note Progress Note: Chief Complaint: sob History of Present Illness: still feels as though sob is worsening (has continued to worsen since tuesday night). adherent to bipap. Unable to sleep last night due to sob. Switched from IV steroids to po steroids tuesday. pt c/o little urinary stream output/retention. Yesterday ordered kidney/ bladder sono to r/o obstruction and flomax increased to 0.8 today. Has been refusing diuretics since yesterday afternoon because of these symptoms. metolazone ordered for yesterday and lasix increased to 100 mg bid yesterday pm but patient has declined to take the metolazone and has declined yesterday pm lasix dose and this morning's dose, as mentioned. HR remains uncontrolled, digoxin increased to 0.25 mg today. no cp, palpit, orthostatic sx's/dizziness. ex cigs Current Medications Acetaminophen (Tylenol -) 650 mg PO Q6H PRN PRN Reason: BACK PAIN Albuterol Sulfate (Ventolin 0.083% Nebulizer Soln -) 1 amp NEB Q4H PRN PRN Reason: SHORT OF BREATH/WHEEZING Last Admin: 08/09/17 05:48 Dose: 1 amp Albuterol/Ipratropium (Duoneb -) 1 amp NEB RQID [facility] Last Admin: 08/09/17 09:50 Dose: 1 amp Apixaban (Eliquis -) 5 mg PO BID [facility] Last Admin: 08/08/17 21:48 Dose: 5 mg Atorvastatin Calcium (Lipitor -) 40 mg PO HS [facility] Last Admin: 08/08/17 21:48 Dose: 40 mg Budesonide/Formoterol Fumarate (Symbicort 160/4.5mcg -) 2 puff IH BID [facility] Last Admin: 08/08/17 21:50 Dose: 2 puff Clotrimazole (Lotrisone Cream (Small Tube)) 1 applic TP BID [facility] Last Admin: 08/08/17 21:50 Dose: 1 applic Digoxin (Lanoxin -) 0.25 mg PO DAILY [facility] Finasteride (Proscar -) 5 mg PO DAILY [facility] Fluticasone Propionate (Flonase -) 2 spray NS DAILY [facility] Last Admin: 08/08/17 10:46 Dose: 2 spray Furosemide (Lasix Injection -) 100 mg IVPUSH BID@1000,1600 [facility] Last Admin: 08/08/17 17:15 Dose: Not Given Gabapentin (Neurontin -) 300 mg PO TID [facility] Last Admin: 08/09/17 06:25 Dose: 300 mg Famotidine/Sodium Chloride (Pepcid 20 Mg Premixed Ivpb -) 20 mg in 50 mls @ 100 mls/hr IVPB BID [facility] Last Admin: 08/08/17 21:50 Dose: 100 mls/hr Insulin Aspart (Novolog Vial Sliding Scale -) 1 vial SQ ACHS [facility] PRN Reason: Protocol Last Admin: 08/09/17 06:26 Dose: 8 units Insulin Detemir (Levemir Vial) 37 units SQ BID@0700,2200 [facility] Last Admin: 08/09/17 06:25 Dose: 37 units Loratadine (Claritin -) 10 mg PO DAILY [facility] Last Admin: 08/08/17 10:46 Dose: 10 mg Prednisone (Deltasone -) 40 mg PO BID [facility] Last Admin: 08/08/17 21:48 Dose: 40 mg Sodium Chloride ([place] Nasal [place] -) 2 spray NS BID PRN PRN Reason: NASAL CONGESTION Tamsulosin HCl (Flomax -) 0.8 mg PO DAILY@0830 [facility] Verapamil HCl (Calan Sr -) 240 mg PO BID [facility] Last Admin: 08/08/17 21:48 Dose: 240 mg - Objective Vital Signs: Vital Signs - 24 hr 08/08/17 08/08/17 08/08/17 10:46 11:58 13:55 Temperature 97.8 F Pulse Rate 105 H 106 H 92 H Respiratory 22 Rate Blood Pressure 117/75 O2 Sat by Pulse Oximetry (%) 08/08/17 08/08/17 08/08/17 17:55 21:00 22:23 Temperature 98.3 F 98.1 F Pulse Rate 107 H 124 H Respiratory 22 22 22 Rate Blood Pressure 120/73 116/67 O2 Sat by Pulse 95 Oximetry (%) 08/09/17 08/09/17 02:00 06:00 Temperature 97.5 F L 97.4 F L Pulse Rate 90 102 H Respiratory 22 24 Rate Blood Pressure 132/54 100/78 O2 Sat by Pulse Oximetry (%) Intake & Output 08/07/17 08/08/17 08/09/17 08/10/17 07:59 07:59 07:59 07:59 Intake Total 550 400 120 Output Total 2172 2030 1950 Balance -1625 -0320 -1830 Weight 301 lb 6 oz 297 lb 8 oz 298 lb 0.4 oz Constitutional: Yes: conversational dyspnea. bipapd on. Calm, Obese Eyes: No: Sclera Icterus HENT: No: Nasal Congestion Cardiovascular: Yes: Pulse Irregular, tachycardic S1, S2, Other (PMI non diplaced). No: JVD (++ tds habitus), Gallop, Murmur Respiratory: Yes: diffuse Wheezes. No: Accessory Muscle Use Gastrointestinal: Yes: Normal Bowel Sounds, Soft. No: Tenderness Musculoskeletal: Yes: Other (No kyphosis) Extremities: No: Cold Edema: No Integumentary: No: Jaundice Neurological: Yes: Alert, Oriented (x3) Psychiatric: No: Agitated Labs: BMP 08/09/17 06:30 Laboratory Tests 08/08/17 08/09/17 06:23 06:30 Digoxin 0.6582 L 0.8379 - ....Imaging EKG: Other (tele: afib 90s-110s with persistent bursts of RVR to 130-150s) Assessment/Plan Echo 07/2016: Nl lv/rv. 1+ AR cxr 08/07/17: some central congestive changes. improved basilar atelectasis. by my review, persistent congestive changes. increased opacification vs. poor penetration of RML, RLL> cxr: incr markings at bases c/w atx vs early infiltrate renal u/s 07/2017: partially distended urinary bladder, enlarged prostate --> flomax dose increased 08/09. MPI 2012: small posterior ischemia vs artifact, nl lvef, no tid a/p: 72 yo male with h/o AFib s/p prior DCCV 12/2015 to SR on AC, HTN, HL, dchf , PVCs with palpitations, morbid obesity, LUCY on bipap, severe COPD, here with sob. a.e. copd: - copd/lucy tx per pulm - 08/09, worsened sob since yesterday when transitioned from IV to PO lasix, will defer to pulm regarding mgm't. acute on chronic diastolic chf: - previous admits, wt up to 340s-350s when decomp chf, with signif incr LE edema - d/c wt 04/26 was 324. and was 315 when left here 07/28, then back up to 327 when back with a.e. copd 07/28. - 07/28 copd admit with marked pedal edema treated with lasix 80 iv bid--d/c wt 314. sent out on lasix 40 po bid. - marked weakness with activity at home, cxr with fluid in fissure, ? effusions on image review--pulmonary team does not suspect a.e. copd or PNA - BNP 180 (prior range 90-300). phys exam prohibitively TDS for volume assessment, and cannot get standing wts until pt moves from ICU to tele bed. - 08/01 no standing weight done here (ordered today). incr lasix from 40 iv bid to 80 iv bid. - 08/02-: bmp stable on increased IV lasix, still with congestion on cxr 08/07. con't current regimen. - 08/08: wt down to 297. lytes stable. pedal edema resolved. CXR 08/07 with persistent diffuse interstitial infiltrates, ? intra-alveolar infiltrates/edema at bases, small L effusion new vs prior. ? ongoing uncontrolled AF rates driving ongoing diast chf (vs vice versa). Incr lasix to 100 iv bid, give one dose metolazone 5mg today. rpt cxr in am--consider CT chest if uncertainty regarding the dx. AF hr control as doing. renal u/s ordered due to complaints of urinary retention - 08/09: pt declined extra metolazone yesterday and lasix doses because of persistent urinary retention. awaiting affects of increased dose of flomax, pmd aware. Repeat cxr pending. ? contribution of copd to worsening sob? as mentioned above. - monitor daily labs. weights, i/o - he resists taking lasix bid at home due to freq urinating. should go home on 80 qd this time paroxysmal AF/flutter -cont eliquis for AC -new dx 2015--req'd amio for HR control then (now off due to severe lung dz), s/ p successful DCCV 12/24, then reverted to afib -defer AVN ablation/PPM unless future signs of HF being driven by rapid HRs (to date thus far, his AF rates are well-controlled at office, and only rapid sec to acute copd). -avoiding BB given severe bronchospasm/copd; would like to avoid long-term amio for same reason -on outpatient regimen here, verapamil 240 bid, and dig (level good here). monitor tele -rate typically becomes elevated in settings of respiratory distress and often improves with bipap therapy. - 08/02: K 3.7 and mg 1.6 this am. + recurrent nausea/vomiting this morning --> RVR to 140's . Given 150 IV amio. 0.25 digoxin IV x 1. Given a total of 25 mg of IV dilt and started on diltiazem drip. -08/04-08/07: hr overall controlled. cont dig and verapamil. -08/08: HR worsened controlled, ? contributing to ongoing CHF. running out of AVN charles options here. incr dig to 0.25mg qd (daily levels ordered). aggressive diuresis attempt to continue until pt clearly dry--if remains uncontrolled HR at that time will have to refer to EP to consider AVN ablation/ PM (pt advised of this possibility today) - 08/09: HR still with worsened control/frequent breakthrough RVR. dig level therapeutic today, dig level increased from .125 to .250 (first increased dose today). Patient with significantly more respiratory discomfort today. Optimization of copd as mentioned above. Optimization of volume status as mentioned above. hld: -continue home statin htn: -stable on current meds, monitor on increased flomax dose. possible cad: -pt had borderline positive mibi in 2012 vs soft tissue attenuation artifact -never had angina sx's -ECG nonsp ST-T no signif change vs prior. trop neg x2. no anginal sx's -continue medical management with statin, AC without ASA worsened sob, rvr, urinary retention > 35 min spent caring for pt.
--- NOTE | 2017-08-09 10:50 | PN ---
Progress Note (short form) - Note Progress Note: Pt. was seen today after another readmission. He stated he was not depressed or overly anxious but did experience fatigue. He indicated that he has been compliant with his medications. The patient did not complain of any other symptoms but evidently is struggling with breathing unless he has the respiratory apparatus. He was receptive to my dropping by to check on him as he has no visitors. Problem List - Problems (1) Other specified eating disorder Code(s): F50.89 - OTHER SPECIFIED EATING DISORDER
[2017-08-09] MEDS ORDERED: PT OWN MED DRAWER 7, Y5N ONE ×2 (11:25→23:02)
[2017-08-09] MEDS: predniSONE 20 MG TABLET (UD) PO SCH ×2 (11:33→23:08)
[2017-08-09] MEDS: VERAPAMIL HCL 240 MG E.R. TABLET (FP) PO SCH ×2 (11:33→23:09)
[2017-08-09] MEDS: FINASTERIDE 5 MG TABLET (FP) PO SCH (11:33)
[2017-08-09] MEDS: LORATADINE 10 MG TABLET PO SCH (11:33)
[2017-08-09] MEDS: APIXABAN 5 MG TABLET PO SCH ×2 (11:34→23:09)
[2017-08-09] MEDS: DIGOXIN 0.25 MG TABLET (FP) PO SCH (11:34)
[2017-08-09] MEDS: FAMOTIDINE 20 MG/50 ML IVPB 20 MG/50 ML MG IVPB SCH ×2 (11:34→23:10)
[2017-08-09] MEDS: BUDESONIDE/FORMETEROL FUMARATE 160/4.5 mcg INHALER IH SCH ×2 (11:36→23:10)
[2017-08-09] MEDS: CLOTRIMAZOLE/BETAMET DIPROP 15 GM TUBE TP SCH ×2 (11:36→23:09)
[2017-08-09] MEDS: FLUTICASONE PROP 0.05% 16 GM NASAL SPRAY NS SCH (11:37)
[2017-08-09] MEDS: TAMSULOSIN HCL 0.4 MG CAP.ER.24H (FP) PO SCH (11:47)
[2017-08-09] MEDS: FUROSEMIDE 100 MG/10 ML INJECTABLE VIAL IVPUSH SCH ×2 (11:59→20:55)
--- NOTE | 2017-08-09 14:38 | PN ---
Progress Note (short form) - Note Progress Note: PULMONARY Still with dyspnea with minimal exertion. On/off BiPAP. Feels urge to urinate but not urinating. Last Vital Signs Temp Pulse Resp BP Pulse Ox 98.2 F 79 22 152/79 95 08/09/17 14:19 08/09/17 14:19 08/09/17 14:19 08/09/17 14:19 08/08/17 21:00 Intake & Output 08/06/17 08/07/17 08/08/17 08/09/17 23:59 23:59 23:59 23:59 Intake Total 550 400 120 Output Total 2875 2750 1150 1100 Balance -3335 -2350 -1030 -1100 Weight 136.305 kg 136.701 kg 134.944 kg 135.182 kg Gen: tachypneic with speaking Heart: RRR Lung: scattered rhonchi R>L Abd: soft, nontender Ext: decreased edema CBC, BMP 08/08/17 06:23 08/09/17 06:30 Active Medications Acetaminophen (Tylenol -) 650 mg PO Q6H PRN PRN Reason: BACK PAIN Albuterol Sulfate (Ventolin 0.083% Nebulizer Soln -) 1 amp NEB Q4H PRN PRN Reason: SHORT OF BREATH/WHEEZING Last Admin: 08/09/17 05:48 Dose: 1 amp Albuterol/Ipratropium (Duoneb -) 1 amp NEB RQID [facility] Last Admin: 08/09/17 11:44 Dose: 1 amp Apixaban (Eliquis -) 5 mg PO BID [facility] Last Admin: 08/09/17 11:34 Dose: 5 mg Atorvastatin Calcium (Lipitor -) 40 mg PO HS [facility] Last Admin: 08/08/17 21:48 Dose: 40 mg Budesonide/Formoterol Fumarate (Symbicort 160/4.5mcg -) 2 puff IH BID [facility] Last Admin: 08/09/17 11:36 Dose: 2 puff Clotrimazole (Lotrisone Cream (Small Tube)) 1 applic TP BID [facility] Last Admin: 08/09/17 11:36 Dose: 1 applic Digoxin (Lanoxin -) 0.25 mg PO DAILY [facility] Last Admin: 08/09/17 11:34 Dose: 0.25 mg Finasteride (Proscar -) 5 mg PO DAILY [facility] Last Admin: 08/09/17 11:33 Dose: 5 mg Fluticasone Propionate (Flonase -) 2 spray NS DAILY [facility] Last Admin: 08/09/17 11:37 Dose: 2 spray Furosemide (Lasix Injection -) 100 mg IVPUSH BID@1000,1600 [facility] Last Admin: 08/09/17 11:59 Dose: Not Given Gabapentin (Neurontin -) 300 mg PO TID [facility] Last Admin: 08/09/17 06:25 Dose: 300 mg Famotidine/Sodium Chloride (Pepcid 20 Mg Premixed Ivpb -) 20 mg in 50 mls @ 100 mls/hr IVPB BID [facility] Last Admin: 08/09/17 11:34 Dose: 100 mls/hr Insulin Aspart (Novolog Vial Sliding Scale -) 1 vial SQ ACHS [facility] PRN Reason: Protocol Last Admin: 08/09/17 11:58 Dose: Not Given Insulin Detemir (Levemir Vial) 37 units SQ BID@0700,2200 [facility] Last Admin: 08/09/17 06:25 Dose: 37 units Loratadine (Claritin -) 10 mg PO DAILY [facility] Last Admin: 08/09/17 11:33 Dose: 10 mg Prednisone (Deltasone -) 40 mg PO BID [facility] Last Admin: 08/09/17 11:33 Dose: 40 mg Sodium Chloride ([place] Nasal [place] -) 2 spray NS BID PRN PRN Reason: NASAL CONGESTION Tamsulosin HCl (Flomax -) 0.8 mg PO DAILY@0830 [facility] Verapamil HCl (Calan Sr -) 240 mg PO BID [facility] Last Admin: 08/09/17 11:33 Dose: 240 mg A/P Atrial Fibrillation with RVR Acute on Chronic Diastolic Heart Failure Acute COPD Exacerbation Acute on Chronic Hypoxic and Hypercapneic Respiratory Failure HTN Hypercholesterolemia Morbid Obesity LUCY - titrate rate control - continue IV lasix - monitor urine output, creatinine - daily weights, I/Os - continue anticoagulation - prednisone taper - inhaled bronchodilators - O2 to keep Spo2 >88% - BiPAP at night and PRN during day
[2017-08-09] MEDS ORDERED: INSULIN (NOVOLOG) ASPART 100 UNITS/ML 10ML VIAL ONE (19:15)
[2017-08-09] MEDS: ATORVASTATIN CA 40 MG TABLET (FP) PO SCH (23:08)
[2017-08-10] MEDS: ALBUTEROL SO4 2.5/IPRATROPIUM 0.5 INH SOL 3 ML VIAL.NEB. NEB SCH ×4 (00:50→17:00)
[2017-08-10] MEDS: GABAPENTIN 300 MG CAPSULE (FP) PO SCH ×3 (06:33→22:16)
[2017-08-10] MEDS: INSULIN DETEMIR 100 UNITS/ML MDV SQ SCH ×2 (06:33→22:15)
[2017-08-10] MEDS: INSULIN SLIDING SCALE (NOVOLOG) 1 VIAL SQ SCH ×4 (06:34→22:15)
[2017-08-10] MEDS ORDERED: INSULIN (NOVOLOG) ASPART 100 UNITS/ML 10ML VIAL ONE (06:41)
[2017-08-10 07:56] LABS: CHLORIDE 98 mmol/L (98-107); POTASSIUM 4.2 mmol/L (3.5-5.1); SODIUM 144 mmol/L (136-145)
--- NOTE | 2017-08-10 08:13 | CON.GU ---
Consult Consult Specialty:: urology Referred by:: Lloyd Reason for Consultation:: bph/urinary retention - History of Present Illness Chief Complaint: urinary retention/bph History of Present Illness: Patient with history of bph. Patient with difficulty voiding on Flomax 0.8mg QD and proscar 5 mg QD. Patient voiding with stranguria with small amounts per void. Patient denies gross hematuria or dysuria. Patient has not taken his lasix due to his fear of urinary retention. - History Source History Provided By: Patient, Medical Record, Caregiver Limitations to Obtaining History: No Limitations - Past Medical History Cardio/Vascular: Yes: AFIB, CHF, HTN, Hyperlipdemia, Pulmonary Hypertension Pulmonary: Yes: COPD, O2 Dependent, Pneumonia, Sleep Apnea. No: Cancer Gastrointestinal: Yes: GERD Renal/: Yes: Renal Inusuff Endocrine: Yes: Other (MORBIDLY OBESE) - Past Surgical History Past Surgical History: Yes: Tonsillectomy - Alcohol/Substance Use Hx Alcohol Use: No - Smoking History Smoking history: Former smoker Have you smoked in the past 12 months: No Aproximately how many cigarettes per day: 0 If you are a former smoker, when did you quit?: 6 years ago - Social History Usual Living Arrangement: With Spouse ADL: Independent Occupation: retired History of Recent Travel: No Home Medications - Allergies Allergies/Adverse Reactions: Allergies Allergy/AdvReac Type Severity Reaction Status Date / Time No Known Allergies Allergy Verified 07/30/17 11:13 - Home Medications Home Medications: Ambulatory Orders Apixaban [Eliquis] 5 mg PO BID 08/26/16 Verapamil HCl [Verapamil ER] 240 mg PO BID 08/26/16 Insulin (Novolog) [Novolog -] 0 units SQ AC #1 vial 04/17/17 Sitagliptin Phos/Metformin HCl [Janumet 50-1,000 mg Tablet] 1 each PO DAILY #30 tab 04/17/17 Digoxin [Lanoxin -] 0.125 mg PO DAILY tablet 07/15/17 Insulin (Levemir) [Levemir Flexpen -] 30 units SQ BID #4 syr 07/15/17 Metformin HCl [Glucophage -] 500 mg PO BID@0700,1630 tablet 07/15/17 Acetaminophen [Tylenol .Regular Strength -] 650 mg PO Q6H PRN tablet 07/26/17 Albuterol 0.083% Nebulizer [place] [Ventolin 0.083% Nebulizer Soln -] 1 amp NEB Q4H PRN amp 07/26/17 Albuterol 2.5/Ipratropium 0.5 [Duoneb -] 1 amp NEB RQID amp 07/26/17 Atorvastatin Ca [Lipitor] 40 mg PO HS tablet 07/26/17 Budesonide/Formeterol Fumarate [SYMBICORT 160/4.5mcg -] 2 puff IH BID inhaler 07/26/17 Fluticasone Prop 0.05% Nasal [Flonase -] 2 spray NS DAILY spray 07/26/17 Furosemide [Lasix -] 40 mg PO BID #60 tablet 07/26/17 Gabapentin [Neurontin -] 300 mg PO TID capsule 07/26/17 Loratadine [Claritin -] 10 mg PO DAILY tablet 07/26/17 Pantoprazole Sodium [Protonix -] 40 mg PO DAILY tablet.ec 07/26/17 Prednisone 10 mg PO ASDIR #65 tablet 07/26/17 Sodium Chloride Nasal [place] [[place] Nasal [place] -] 2 spray NS BID PRN spray 07/26/17 Tamsulosin HCl [Flomax -] 0.4 mg PO DAILY@0830 cap.er.24h 07/26/17 Physical Exam- Vital Signs: Vital Signs Temperature 97 F L 08/10/17 06:00 Pulse Rate 70 08/10/17 06:00 Respiratory Rate 20 08/10/17 06:00 Blood Pressure 119/70 08/10/17 06:00 O2 Sat by Pulse Oximetry (%) 93 L 08/09/17 21:00 Constitutional: Yes: Anxious, Moderate Distress Eyes: Yes: WNL, Conjunctiva Clear, EOM Intact HENT: Yes: WNL, Atraumatic, Normocephalic Neck: Yes: WNL, Supple, Trachea Midline Cardiovascular: Yes: Pulse Irregular Respiratory: Yes: Accessory Muscle Use, On Venti-Mask Gastrointestinal: Yes: WNL, Normal Bowel Sounds, Soft Renal/: Yes: WNL Pelvis: Yes: WNL, Bladder Non Palpable Testicles: Yes: WNL, Descended Scrotum: Yes: WNL Penis: Yes: WNL Prostate Exam: Yes: Asymmetrical, Swollen Labs: CBC, BMP 08/08/17 06:23 Imaging - Results Ultrasound: Report Reviewed Problem List - Problems (1) BPH loc w urin obs/LUTS Code(s): N40.1 - BENIGN PROSTATIC HYPERPLASIA WITH LOWER URINARY TRACT SYMP (2) Azotemia Code(s): R79.89 - OTHER SPECIFIED ABNORMAL FINDINGS OF BLOOD CHEMISTRY Assessment/Plan procedure note villareal catheter placed without difficulty impression bph urinary retention plan continue flomax/proscar trial of voiding as per medicine
[2017-08-10 08:18] LABS: ANION GAP 11 (8-16); BLOOD UREA NITROGEN 24 mg/dL (7-18); CALCIUM 9.4 mg/dL (8.5-10.1); CO2 35 mmol/L (21-32); CREATININE 0.7 mg/dL (0.7-1.3); GLUCOSE,RANDOM 102 mg/dL (74-106); MAGNESIUM 2.2 mg/dL (1.8-2.4)
[2017-08-10] MEDS: TAMSULOSIN HCL 0.4 MG CAP.ER.24H (FP) PO SCH (08:31)
--- NOTE | 2017-08-10 08:58 | PN ---
Progress Note, Physician Chief Complaint: NOVA IN PLACE History of Present Illness: c/o difficulty urinating - Current Medication List Current Medications: Active Medications Acetaminophen (Tylenol -) 650 mg PO Q6H PRN PRN Reason: BACK PAIN Albuterol/Ipratropium (Duoneb -) 1 amp NEB RQID [facility] Last Admin: 08/10/17 00:50 Dose: 1 amp Apixaban (Eliquis -) 5 mg PO BID [facility] Last Admin: 08/09/17 23:09 Dose: 5 mg Atorvastatin Calcium (Lipitor -) 40 mg PO HS [facility] Last Admin: 08/09/17 23:08 Dose: 40 mg Budesonide/Formoterol Fumarate (Symbicort 160/4.5mcg -) 2 puff IH BID [facility] Last Admin: 08/09/17 23:10 Dose: 2 puff Clotrimazole (Lotrisone Cream (Small Tube)) 1 applic TP BID [facility] Last Admin: 08/09/17 23:09 Dose: 1 applic Digoxin (Lanoxin -) 0.25 mg PO DAILY [facility] Last Admin: 08/09/17 11:34 Dose: 0.25 mg Finasteride (Proscar -) 5 mg PO DAILY [facility] Last Admin: 08/09/17 11:33 Dose: 5 mg Fluticasone Propionate (Flonase -) 2 spray NS DAILY [facility] Last Admin: 08/09/17 11:37 Dose: 2 spray Furosemide (Lasix Injection -) 100 mg IVPUSH BID@1000,1600 [facility] Last Admin: 08/09/17 20:55 Dose: 100 mg Gabapentin (Neurontin -) 300 mg PO TID [facility] Last Admin: 08/10/17 06:33 Dose: 300 mg Famotidine/Sodium Chloride (Pepcid 20 Mg Premixed Ivpb -) 20 mg in 50 mls @ 100 mls/hr IVPB BID [facility] Last Admin: 08/09/17 23:10 Dose: 100 mls/hr Insulin Aspart (Novolog Vial Sliding Scale -) 1 vial SQ ACHS [facility] PRN Reason: Protocol Last Admin: 08/10/17 06:34 Dose: Not Given Insulin Detemir (Levemir Vial) 37 units SQ BID@0700,2200 [facility] Last Admin: 08/10/17 06:33 Dose: 37 units Loratadine (Claritin -) 10 mg PO DAILY [facility] Last Admin: 08/09/17 11:33 Dose: 10 mg Prednisone (Deltasone -) 40 mg PO BID [facility] Last Admin: 08/09/17 23:08 Dose: 40 mg Sodium Chloride ([place]al [place] -) 2 spray NS BID PRN PRN Reason: NASAL CONGESTION Tamsulosin HCl (Flomax -) 0.8 mg PO DAILY@0830 [facility] Last Admin: 08/10/17 08:31 Dose: 0.8 mg Verapamil HCl (Calan Sr -) 240 mg PO BID [facility] Last Admin: 08/09/17 23:09 Dose: 240 mg - Objective Vital Signs: Vital Signs Temperature 97 F L 08/10/17 06:00 Pulse Rate 70 08/10/17 06:00 Respiratory Rate 20 08/10/17 06:00 Blood Pressure 119/70 08/10/17 06:00 O2 Sat by Pulse Oximetry (%) 93 L 08/09/17 21:00 Cardiovascular: Yes: S1, S2 Respiratory: Yes: Rales Gastrointestinal: Yes: Normal Bowel Sounds, Soft Labs: CBC, BMP 08/08/17 06:23 INR, PTT INR 0.98 (0.82-1.09) 07/30/17 10:40 Problem List - Problems (1) Atrial fibrillation Code(s): I48.91 - UNSPECIFIED ATRIAL FIBRILLATION Qualifiers: Atrial fibrillation type: chronic Qualified Code(s): I48.2 - Chronic atrial fibrillation (2) Acute chronic obstructive pulmonary disease with respiratory distress Code(s): J44.9 - CHRONIC OBSTRUCTIVE PULMONARY DISEASE, UNSPECIFIED; R06.03 - ACUTE RESPIRATORY DISTRESS (3) Acute exacerbation of chronic obstructive pulmonary disease (COPD) Code(s): J44.1 - CHRONIC OBSTRUCTIVE PULMONARY DISEASE W (ACUTE) EXACERBATION (4) CHF exacerbation Code(s): I50.9 - HEART FAILURE, UNSPECIFIED Qualifiers: Congestive heart failure type: unspecified congestive heart failure type Assessment/Plan Problems (1) Acute CHF Assessment/Plan: acute on chronic CHF on iv lasix leg edema is decreasing renal function is ok Code(s): I50.9 - HEART FAILURE, UNSPECIFIED Qualifiers: Congestive heart failure type: systolic Qualified Code(s): I50.21 - Acute systolic (congestive) heart failure (2) Atrial fibrillation Assessment/Plan: eliquis BID dig and verampamil on cardizem po Code(s): I48.91 - UNSPECIFIED ATRIAL FIBRILLATION Qualifiers: Atrial fibrillation type: chronic Qualified Code(s): I48.2 - Chronic atrial fibrillation (3) COPD (chronic obstructive pulmonary disease) Assessment/Plan: prednsione taper iv medrol bronchodilators bipap at night oxygen via [place] Code(s): J44.9 - CHRONIC OBSTRUCTIVE PULMONARY DISEASE, UNSPECIFIED Qualifiers: COPD type: unspecified COPD Qualified Code(s): J44.9 - Chronic obstructive pulmonary disease, unspecified (4) Diabetes mellitus Assessment/Plan: bgm hgba1c noted metofrmin and januvia -stopped levemir prednisone taper Code(s): E11.9 - TYPE 2 DIABETES MELLITUS WITHOUT COMPLICATIONS Qualifiers: Diabetes mellitus type: type 2 (5) Bph/Urinery Retention Assessment/Plan: urology flomax 0.8 proscar 5 mg NOVA
[2017-08-10] MEDS ORDERED: PT OWN MED DRAWER 7, Y5N ONE ×2 (10:26→22:01)
[2017-08-10] MEDS: VERAPAMIL HCL 240 MG E.R. TABLET (FP) PO SCH ×2 (10:36→22:16)
[2017-08-10] MEDS: LORATADINE 10 MG TABLET PO SCH (10:36)
[2017-08-10] MEDS: APIXABAN 5 MG TABLET PO SCH ×2 (10:36→22:16)
[2017-08-10] MEDS: predniSONE 20 MG TABLET (UD) PO SCH ×2 (10:36→22:16)
[2017-08-10] MEDS: FAMOTIDINE 20 MG/50 ML IVPB 20 MG/50 ML MG IVPB SCH ×2 (10:37→22:13)
[2017-08-10] MEDS: DIGOXIN 0.25 MG TABLET (FP) PO SCH (10:37)
[2017-08-10] MEDS: FINASTERIDE 5 MG TABLET (FP) PO SCH (10:37)
[2017-08-10] MEDS: FUROSEMIDE 100 MG/10 ML INJECTABLE VIAL IVPUSH SCH ×2 (10:37→16:36)
[2017-08-10] MEDS: FLUTICASONE PROP 0.05% 16 GM NASAL SPRAY NS SCH (10:38)
[2017-08-10] MEDS: BUDESONIDE/FORMETEROL FUMARATE 160/4.5 mcg INHALER IH SCH ×2 (10:38→22:20)
[2017-08-10] MEDS: CLOTRIMAZOLE/BETAMET DIPROP 15 GM TUBE TP SCH ×2 (10:39→22:21)
--- NOTE | 2017-08-10 11:11 | PN ---
Progress Note (short form) - Note Progress Note: Chief Complaint: sob History of Present Illness: no cp palps dizzy. sob improving ex-cigs Current Medications Generic Name Dose Route Start Last Admin Trade Name Spike PRN Reason Stop Dose Admin Acetaminophen 650 mg 08/04/17 19:19 Tylenol - PO Q6H PRN BACK PAIN Albuterol/Ipratropium 1 amp 08/10/17 00:46 08/10/17 08:50 Duoneb - NEB 1 amp RQID [facility] Administration Apixaban 5 mg 08/04/17 22:00 08/10/17 10:36 Eliquis - PO 5 mg BID [facility] Administration Atorvastatin Calcium 40 mg 08/04/17 22:00 08/09/17 23:08 Lipitor - PO 40 mg HS [facility] Administration Budesonide/Formoterol Fumarate 2 puff 08/04/17 22:00 08/10/17 10:38 Symbicort 160/4.5mcg - IH 2 puff BID [facility] Administration Clotrimazole 1 applic 08/07/17 10:00 08/10/17 10:39 Lotrisone Cream (Small Tube) TP 1 applic BID [facility] Administration Digoxin 0.25 mg 08/09/17 10:00 08/10/17 10:37 Lanoxin - PO 0.25 mg DAILY [facility] Administration Finasteride 5 mg 08/09/17 10:00 08/10/17 10:37 Proscar - PO 5 mg DAILY [facility] Administration Fluticasone Propionate 2 spray 08/05/17 10:00 08/10/17 10:38 Flonase - NS 2 spray DAILY [facility] Administration Furosemide 100 mg 08/08/17 11:34 08/10/17 10:37 Lasix Injection - IVPUSH 100 mg BID@1000,1600 [facility] Administration Gabapentin 300 mg 08/04/17 22:00 08/10/17 06:33 Neurontin - PO 300 mg TID [facility] Administration Famotidine/Sodium Chloride 20 mg in 50 mls @ 100 mls/hr 08/04/17 22:00 10:37 Pepcid 20 Mg Premixed Ivpb - IVPB 100 mls/hr BID [facility] Administration Insulin Aspart 1 vial 08/04/17 22:00 08/10/17 06:34 Novolog Vial Sliding Scale - SQ Not Given ACHS [facility] Protocol Insulin Detemir 37 units 08/04/17 22:00 08/10/17 06:33 Levemir Vial SQ 37 units BID@0700,2200 [facility] Administration Loratadine 10 mg 08/05/17 10:00 08/10/17 10:36 Claritin - PO 10 mg DAILY [facility] Administration Prednisone 40 mg 08/08/17 10:00 08/10/17 10:36 Deltasone - PO 40 mg BID [facility] Administration Sodium Chloride 2 spray 08/04/17 19:19 [place] Nas[place] - NS BID PRN NASAL CONGESTION Tamsulosin HCl 0.8 mg 08/09/17 09:38 08/10/17 08:31 Flomax - PO 0.8 mg DAILY@0830 [facility] Administration Verapamil HCl 240 mg 08/04/17 22:00 08/10/17 10:36 Calan Sr - PO 240 mg BID [facility] Administration Vital Signs Period Temp Pulse Resp BP Sys/Park Pulse Ox Last 24 Hr 97 F-98.2 F 70-134 20-28 111-152/64-79 87-93 Constitutional: Yes: uncomfortable, vomiting. Obese Eyes: No: Sclera Icterus HENT: No: Nasal Congestion Cardiovascular: Yes: Pulse Irregular (soft heart sounds), S1, S2, Other (PMI non diplaced). No: JVD (very tds habitus plus bipap mask), Gallop, Murmur Respiratory: Yes: diminished air movment, Rhonchi, Wheezes. No: Accessory Muscle Use, Rales Gastrointestinal: Yes: Normal Bowel Sounds, Soft. No: Tenderness Extremities: No: Cold Edema: Yes ( trace pretib) Integumentary: No: Jaundice diaphoresis Neurological: Yes: Alert, Oriented (x3) Psychiatric: No: Agitated Labs: CBC, BMP 08/08/17 06:23 08/10/17 06:09 - ....Imaging EKG: Other (tele: afib, HR 130s) echo 07/2016: Nl lv/rv. 1+ AR mibi 12/2012: small posterior ischemia vs artifact, nl lvef, no tid cxr: incr markings at bases c/w atx vs early infiltrate a/p: 72 yo male with h/o AFib s/p prior DCCV 12/2015 to SR on AC, HTN, HL, dchf , PVCs with palpitations, morbid obesity, LUCY on bipap, severe COPD, here with sob. a.e. copd: - copd/lucy tx per pulm acute on chronic diastolic chf: - previous admits, wt up to 340s-350s when decomp chf, with signif incr LE edema - d/c wt 04/26 was 324. and was 315 when left here 07/28, then back up to 327 when back with a.e. copd 07/28. - 07/28 copd admit with marked pedal edema treated with lasix 80 iv bid--d/c wt 314. sent out on lasix 40 po bid. - marked weakness with activity at home, cxr with fluid in fissure, ? effusions on image review--pulmonary team does not suspect a.e. copd or PNA - BNP 180 (prior range 90-300). phys exam prohibitively TDS for volume assessment, and cannot get standing wts until pt moves from ICU to tele bed. - 08/01 no standing weight done here (ordered today). incr lasix from 40 iv bid to 80 iv bid. - 08/02-: bmp stable on increased IV lasix, still with congestion on cxr 08/07. con't current regimen. - 08/08: wt down to 297. lytes stable. pedal edema resolved. CXR 08/07 with persistent diffuse interstitial infiltrates, ? intra-alveolar infiltrates/edema at bases, small L effusion new vs prior. ? ongoing uncontrolled AF rates driving ongoing diast chf (vs vice versa). Incr lasix to 100 iv bid, give one dose metolazone 5mg today. rpt cxr in am--consider CT chest if uncertainty regarding the dx. AF hr control as doing. renal u/s ordered due to complaints of urinary retention - 08/09: pt declined extra metolazone yesterday and lasix doses because of persistent urinary retention. awaiting affects of increased dose of flomax -08/10: villareal placed this AM, monitor uop with lasix iv - monitor daily labs. weights, i/o - he resists taking lasix bid at home due to freq urinating. should go home on 80 qd this time paroxysmal AF/flutter -cont eliquis for AC -new dx 2015--req'd amio for HR control then (now off due to severe lung dz), s/ p successful DCCV 12/24, then reverted to afib -defer AVN ablation/PPM unless future signs of HF being driven by rapid HRs (to date thus far, his AF rates are well-controlled at office, and only rapid sec to acute copd). -avoiding BB given severe bronchospasm/copd; would like to avoid long-term amio for same reason -on outpatient regimen here, verapamil 240 bid, and dig (level good here). monitor tele -rate typically becomes elevated in settings of respiratory distress and often improves with bipap therapy. - 08/02: K 3.7 and mg 1.6 this am. + recurrent nausea/vomiting this morning --> RVR to 140's . Given 150 IV amio. 0.25 digoxin IV x 1. Given a total of 25 mg of IV dilt and started on diltiazem drip. -08/04-08/07: hr overall controlled. cont dig and verapamil. -08/08: HR worsened controlled, ? contributing to ongoing CHF. running out of AVN charles options here. incr dig to 0.25mg qd (daily levels ordered). aggressive diuresis attempt to continue until pt clearly dry--if remains uncontrolled HR at that time will have to refer to EP to consider AVN ablation/ PM (pt advised of this possibility today) - 08/09: HR still with worsened control/frequent breakthrough RVR. dig level therapeutic today, dig level increased from .125 to .250 (first increased dose today). Patient with significantly more respiratory discomfort today. Optimization of copd as mentioned above. Optimization of volume status as mentioned above. -08/10: cont with diuresis which should improve HR as vol status improves hld: -continue home statin htn: -stable on current meds, monitor on increased flomax dose. possible cad: -pt had borderline positive mibi in 2013 vs soft tissue attenuation artifact -never had angina sx's -ECG nonsp ST-T no signif change vs prior. trop neg x2. no anginal sx's -continue medical management with statin, AC without ASA
--- NOTE | 2017-08-10 13:24 | PN ---
Progress Note, Physician History of Present Illness: pulmonary alert,feeling better on bipap,less dyspneic - Current Medication List Current Medications: Active Medications Acetaminophen (Tylenol -) 650 mg PO Q6H PRN PRN Reason: BACK PAIN Albuterol/Ipratropium (Duoneb -) 1 amp NEB RQID [facility] Last Admin: 08/10/17 12:00 Dose: 1 amp Apixaban (Eliquis -) 5 mg PO BID [facility] Last Admin: 08/10/17 10:36 Dose: 5 mg Atorvastatin Calcium (Lipitor -) 40 mg PO HS [facility] Last Admin: 08/09/17 23:08 Dose: 40 mg Budesonide/Formoterol Fumarate (Symbicort 160/4.5mcg -) 2 puff IH BID [facility] Last Admin: 08/10/17 10:38 Dose: 2 puff Clotrimazole (Lotrisone Cream (Small Tube)) 1 applic TP BID [facility] Last Admin: 08/10/17 10:39 Dose: 1 applic Digoxin (Lanoxin -) 0.25 mg PO DAILY [facility] Last Admin: 08/10/17 10:37 Dose: 0.25 mg Finasteride (Proscar -) 5 mg PO DAILY [facility] Last Admin: 08/10/17 10:37 Dose: 5 mg Fluticasone Propionate (Flonase -) 2 spray NS DAILY [facility] Last Admin: 08/10/17 10:38 Dose: 2 spray Furosemide (Lasix Injection -) 100 mg IVPUSH BID@1000,1600 [facility] Last Admin: 08/10/17 10:37 Dose: 100 mg Gabapentin (Neurontin -) 300 mg PO TID [facility] Last Admin: 08/10/17 13:10 Dose: Not Given Famotidine/Sodium Chloride (Pepcid 20 Mg Premixed Ivpb -) 20 mg in 50 mls @ 100 mls/hr IVPB BID [facility] Last Admin: 08/10/17 10:37 Dose: 100 mls/hr Insulin Aspart (Novolog Vial Sliding Scale -) 1 vial SQ ACHS [facility] PRN Reason: Protocol Last Admin: 08/10/17 12:15 Dose: 6 units Insulin Detemir (Levemir Vial) 37 units SQ BID@0700,2200 [facility] Last Admin: 08/10/17 06:33 Dose: 37 units Loratadine (Claritin -) 10 mg PO DAILY [facility] Last Admin: 08/10/17 10:36 Dose: 10 mg Prednisone (Deltasone -) 40 mg PO BID [facility] Last Admin: 08/10/17 10:36 Dose: 40 mg Sodium Chloride ([place] Nasal [place] -) 2 spray NS BID PRN PRN Reason: NASAL CONGESTION Tamsulosin HCl (Flomax -) 0.8 mg PO DAILY@0830 [facility] Last Admin: 08/10/17 08:31 Dose: 0.8 mg Verapamil HCl (Calan Sr -) 240 mg PO BID [facility] Last Admin: 08/10/17 10:36 Dose: 240 mg - Objective Vital Signs: Vital Signs Temperature 98.2 F 08/10/17 08:57 Pulse Rate 101 H 08/10/17 10:37 Respiratory Rate 22 08/10/17 08:57 Blood Pressure 111/64 08/10/17 08:57 O2 Sat by Pulse Oximetry (%) 90 L 08/10/17 10:35 Constitutional: Yes: Well Nourished, Calm, Obese Eyes: Yes: WNL HENT: Yes: WNL Neck: Yes: WNL Cardiovascular: Yes: Pulse Irregular, S1, S2 Respiratory: Yes: Diminished, Wheezes (few wheezes) Gastrointestinal: Yes: Normal Bowel Sounds, Soft Extremities: Yes: WNL Edema: Yes Labs: CBC, BMP 08/10/17 06:09 INR, PTT INR 0.98 (0.82-1.09) 07/30/17 10:40 Assessment/Plan ASSESSMENT AND PLAN: Atrial Fibrillation with RVR Acute on Chronic Diastolic Heart Failure Acute COPD Exacerbation Acute on Chronic Hypoxic and Hypercapneic Respiratory Failure HTN Hypercholesterolemia Morbid Obesity LUCY - continue IV lasix - monitor urine output, creatinine - daily weights, I/Os - anticoagulation - prednisone - inhaled bronchodilators - O2 to keep Spo2 >88% - BiPAP at night and PRN during day DR STACK
[2017-08-10] MEDS: ATORVASTATIN CA 40 MG TABLET (FP) PO SCH (22:16)
[2017-08-11] MEDS: GABAPENTIN 300 MG CAPSULE (FP) PO SCH ×3 (06:37→22:45)
[2017-08-11] MEDS: INSULIN SLIDING SCALE (NOVOLOG) 1 VIAL SQ SCH ×4 (06:40→22:42)
[2017-08-11] MEDS: INSULIN DETEMIR 100 UNITS/ML MDV SQ SCH ×2 (06:40→22:41)
[2017-08-11] MEDS ORDERED: INSULIN (NOVOLOG) ASPART 100 UNITS/ML 10ML VIAL ONE ×3 (06:48→22:28)
[2017-08-11] MEDS: ALBUTEROL SO4 2.5/IPRATROPIUM 0.5 INH SOL 3 ML VIAL.NEB. NEB SCH ×4 (07:40→21:25)
--- NOTE | 2017-08-11 07:41 | PN ---
Progress Note, Physician History of Present Illness: -c/o difficulty urinating--villareal in place -breathing better -no cp - Current Medication List Current Medications: Active Medications Acetaminophen (Tylenol -) 650 mg PO Q6H PRN PRN Reason: BACK PAIN Albuterol/Ipratropium (Duoneb -) 1 amp NEB RQID [facility] Last Admin: 08/10/17 17:00 Dose: 1 amp Apixaban (Eliquis -) 5 mg PO BID [facility] Last Admin: 08/10/17 22:16 Dose: 5 mg Atorvastatin Calcium (Lipitor -) 40 mg PO HS [facility] Last Admin: 08/10/17 22:16 Dose: 40 mg Budesonide/Formoterol Fumarate (Symbicort 160/4.5mcg -) 2 puff IH BID [facility] Last Admin: 08/10/17 22:20 Dose: 2 puff Clotrimazole (Lotrisone Cream (Small Tube)) 1 applic TP BID [facility] Last Admin: 08/10/17 22:21 Dose: 1 applic Digoxin (Lanoxin -) 0.25 mg PO DAILY [facility] Last Admin: 08/10/17 10:37 Dose: 0.25 mg Finasteride (Proscar -) 5 mg PO DAILY [facility] Last Admin: 08/10/17 10:37 Dose: 5 mg Fluticasone Propionate (Flonase -) 2 spray NS DAILY [facility] Last Admin: 08/10/17 10:38 Dose: 2 spray Furosemide (Lasix Injection -) 100 mg IVPUSH BID@1000,1600 [facility] Last Admin: 08/10/17 16:36 Dose: 100 mg Gabapentin (Neurontin -) 300 mg PO TID [facility] Last Admin: 08/11/17 06:37 Dose: 300 mg Famotidine/Sodium Chloride (Pepcid 20 Mg Premixed Ivpb -) 20 mg in 50 mls @ 100 mls/hr IVPB BID [facility] Last Admin: 08/10/17 22:13 Dose: 100 mls/hr Insulin Aspart (Novolog Vial Sliding Scale -) 1 vial SQ ACHS [facility] PRN Reason: Protocol Last Admin: 08/11/17 06:40 Dose: 6 units Insulin Detemir (Levemir Vial) 37 units SQ BID@0700,2200 [facility] Last Admin: 08/11/17 06:40 Dose: 37 units Loratadine (Claritin -) 10 mg PO DAILY [facility] Last Admin: 08/10/17 10:36 Dose: 10 mg Prednisone (Deltasone -) 40 mg PO BID [facility] Last Admin: 08/10/17 22:16 Dose: 40 mg Sodium Chloride ([place] Nasal [place] -) 2 spray NS BID PRN PRN Reason: NASAL CONGESTION Tamsulosin HCl (Flomax -) 0.8 mg PO DAILY@0830 [facility] Last Admin: 08/10/17 08:31 Dose: 0.8 mg Verapamil HCl (Cal[place] Sr -) 240 mg PO BID [facility] Last Admin: 08/10/17 22:16 Dose: 240 mg - Objective Vital Signs: Vital Signs Temperature 97.3 F L 08/11/17 06:00 Pulse Rate 82 08/11/17 06:00 Respiratory Rate 20 08/11/17 06:00 Blood Pressure 131/67 08/11/17 06:00 O2 Sat by Pulse Oximetry (%) 94 L 08/10/17 21:00 Cardiovascular: Yes: S1, S2 Respiratory: Yes: Rhonchi. No: Rales Gastrointestinal: Yes: Normal Bowel Sounds, Soft Edema: LLE: Trace, RLE: 1+ Neurological: Yes: Alert, Oriented Labs: CBC, BMP 08/08/17 06:23 08/10/17 06:09 INR, PTT INR 0.98 (0.82-1.09) 07/30/17 10:40 Problem List - Problems (1) Atrial fibrillation Code(s): I48.91 - UNSPECIFIED ATRIAL FIBRILLATION Qualifiers: Atrial fibrillation type: chronic Qualified Code(s): I48.2 - Chronic atrial fibrillation (2) Acute chronic obstructive pulmonary disease with respiratory distress Code(s): J44.9 - CHRONIC OBSTRUCTIVE PULMONARY DISEASE, UNSPECIFIED; R06.03 - ACUTE RESPIRATORY DISTRESS (3) Acute exacerbation of chronic obstructive pulmonary disease (COPD) Code(s): J44.1 - CHRONIC OBSTRUCTIVE PULMONARY DISEASE W (ACUTE) EXACERBATION (4) CHF exacerbation Code(s): I50.9 - HEART FAILURE, UNSPECIFIED Qualifiers: Congestive heart failure type: unspecified congestive heart failure type Assessment/Plan Problems (1) Acute CHF Assessment/Plan: acute on chronic CHF on iv lasix leg edema is decreasing renal function is ok Code(s): I50.9 - HEART FAILURE, UNSPECIFIED Qualifiers: Congestive heart failure type: systolic Qualified Code(s): I50.21 - Acute systolic (congestive) heart failure (2) Atrial fibrillation Assessment/Plan: eliquis BID dig and verampamil on cardizem po Code(s): I48.91 - UNSPECIFIED ATRIAL FIBRILLATION Qualifiers: Atrial fibrillation type: chronic Qualified Code(s): I48.2 - Chronic atrial fibrillation (3) COPD (chronic obstructive pulmonary disease) Assessment/Plan: prednsione taper iv medrol --po prednisone bronchodilators bipap at night oxygen via [place] Code(s): J44.9 - CHRONIC OBSTRUCTIVE PULMONARY DISEASE, UNSPECIFIED Qualifiers: COPD type: unspecified COPD Qualified Code(s): J44.9 - Chronic obstructive pulmonary disease, unspecified (4) Diabetes mellitus Assessment/Plan: bgm hgba1c noted metofrmin and januvia -stopped levemir prednisone taper Code(s): E11.9 - TYPE 2 DIABETES MELLITUS WITHOUT COMPLICATIONS Qualifiers: Diabetes mellitus type: type 2 (5) Bph/Urinery Retention Assessment/Plan: urology flomax 0.8 proscar 5 mg VILLAREAL--trial of voiding in am
[2017-08-11 08:39] LABS: ANION GAP 6 (8-16); BLOOD UREA NITROGEN 27 mg/dL (7-18); CALCIUM 9.2 mg/dL (8.5-10.1); CHLORIDE 94 mmol/L (98-107); CO2 42 mmol/L (21-32); CREATININE 0.8 mg/dL (0.7-1.3); GLUCOSE,RANDOM 204 mg/dL (74-106); POTASSIUM 4.2 mmol/L (3.5-5.1); SODIUM 142 mmol/L (136-145)
[2017-08-11] MEDS: FAMOTIDINE 20 MG/50 ML IVPB 20 MG/50 ML MG IVPB SCH ×2 (09:18→22:44)
[2017-08-11] MEDS: predniSONE 20 MG TABLET (UD) PO SCH ×2 (09:18→22:45)
[2017-08-11] MEDS: FUROSEMIDE 100 MG/10 ML INJECTABLE VIAL IVPUSH SCH ×2 (09:18→16:17)
[2017-08-11] MEDS: APIXABAN 5 MG TABLET PO SCH ×2 (09:19→22:45)
[2017-08-11] MEDS: TAMSULOSIN HCL 0.4 MG CAP.ER.24H (FP) PO SCH (09:19)
[2017-08-11] MEDS: VERAPAMIL HCL 240 MG E.R. TABLET (FP) PO SCH ×2 (09:19→22:44)
[2017-08-11] MEDS: FINASTERIDE 5 MG TABLET (FP) PO SCH (09:20)
[2017-08-11] MEDS: LORATADINE 10 MG TABLET PO SCH (09:20)
[2017-08-11] MEDS: FLUTICASONE PROP 0.05% 16 GM NASAL SPRAY NS SCH (09:20)
[2017-08-11] MEDS: DIGOXIN 0.25 MG TABLET (FP) PO SCH (09:20)
[2017-08-11] MEDS: BUDESONIDE/FORMETEROL FUMARATE 160/4.5 mcg INHALER IH SCH ×2 (09:20→22:47)
[2017-08-11] MEDS: CLOTRIMAZOLE/BETAMET DIPROP 15 GM TUBE TP SCH ×2 (09:20→22:51)
--- NOTE | 2017-08-11 10:32 | PN ---
Progress Note (short form) - Note Progress Note: Chief Complaint: sob History of Present Illness: no cp palps dizzy. sob improving ex-cigs Current Medications Generic Name Dose Route Start Last Admin Trade Name Spike PRN Reason Stop Dose Admin Acetaminophen 650 mg 08/04/17 19:19 Tylenol - PO Q6H PRN BACK PAIN Albuterol/Ipratropium 1 amp 08/10/17 00:46 08/11/17 07:40 Duoneb - NEB 1 amp RQID ARVIND Administration Apixaban 5 mg 08/04/17 22:00 08/11/17 09:19 Eliquis - PO 5 mg BID ARVIND Administration Atorvastatin Calcium 40 mg 08/04/17 22:00 08/10/17 22:16 Lipitor - PO 40 mg HS ARVIND Administration Budesonide/Formoterol Fumarate 2 puff 08/04/17 22:00 08/11/17 09:20 Symbicort 160/4.5mcg - IH 2 puff BID ARVIND Administration Clotrimazole 1 applic 08/07/17 10:00 08/11/17 09:20 Lotrisone Cream (Small Tube) TP 1 applic BID ARVIND Administration Digoxin 0.25 mg 08/09/17 10:00 08/11/17 09:20 Lanoxin - PO 0.25 mg DAILY ARVIND Administration Finasteride 5 mg 08/09/17 10:00 08/11/17 09:20 Proscar - PO 5 mg DAILY ARVIND Administration Fluticasone Propionate 2 spray 08/05/17 10:00 08/11/17 09:20 Flonase - NS 2 spray DAILY ARVIND Administration Furosemide 100 mg 08/08/17 11:34 08/11/17 09:18 Lasix Injection - IVPUSH 100 mg BID@1000,1600 ARVIND Administration Gabapentin 300 mg 08/04/17 22:00 08/11/17 06:37 Neurontin - PO 300 mg TID ARVIND Administration Famotidine/Sodium Chloride 20 mg in 50 mls @ 100 mls/hr 08/04/17 22:00 09:18 Pepcid 20 Mg Premixed Ivpb - IVPB 100 mls/hr BID ARVIND Administration Insulin Aspart 1 vial 08/04/17 22:00 08/11/17 06:40 Novolog Vial Sliding Scale - SQ 6 units ACHS ARVIND Administration Protocol Insulin Detemir 37 units 08/04/17 22:00 08/11/17 06:40 Levemir Vial SQ 37 units BID@0700,2200 ARVIND Administration Loratadine 10 mg 08/05/17 10:00 08/11/17 09:20 Claritin - PO 10 mg DAILY ARVIND Administration Prednisone 30 mg 08/11/17 07:41 08/11/17 09:18 Deltasone - PO 30 mg BID ARVIND Administration Sodium Chloride 2 spray 08/04/17 19:19 [place] - NS BID PRN NASAL CONGESTION Tamsulosin HCl 0.8 mg 08/09/17 09:38 08/11/17 09:19 Flomax - PO 0.8 mg DAILY@0830 ARVIND Administration Verapamil HCl 240 mg 08/04/17 22:00 08/11/17 09:19 Calan Sr - PO 240 mg BID ARVIND Administration Vital Signs Period Temp Pulse Resp BP Sys/Park Pulse Ox Last 24 Hr 97.3 F-98.2 F 82-108 20-24 115-131/55-76 90-94 Constitutional: Yes: uncomfortable, vomiting. Obese Eyes: No: Sclera Icterus HENT: No: Nasal Congestion Cardiovascular: Yes: Pulse Irregular (soft heart sounds), S1, S2, Other (PMI non diplaced). No: JVD (very tds habitus plus bipap mask), Gallop, Murmur Respiratory: Yes: diminished air movment, Rhonchi, Wheezes. No: Accessory Muscle Use, Rales Gastrointestinal: Yes: Normal Bowel Sounds, Soft. No: Tenderness Extremities: No: Cold Edema: Yes ( trace pretib) Integumentary: No: Jaundice diaphoresis Neurological: Yes: Alert, Oriented (x3) Psychiatric: No: Agitated Labs: CBC, BMP 08/08/17 06:23 08/11/17 07:00 - ....Imaging EKG: Other (tele: afib, HR at times 130s) echo 07/2016: Nl lv/rv. 1+ AR mibi 12/2012: small posterior ischemia vs artifact, nl lvef, no tid cxr: incr markings at bases c/w atx vs early infiltrate a/p: 72 yo male with h/o AFib s/p prior DCCV 12/2015 to SR on AC, HTN, HL, dchf , PVCs with palpitations, morbid obesity, LUCY on bipap, severe COPD, here with sob. a.e. copd: - copd/lucy tx per pulm acute on chronic diastolic chf: - previous admits, wt up to 340s-350s when decomp chf, with signif incr LE edema - d/c wt 04/26 was 324. and was 315 when left here 07/28, then back up to 327 when back with a.e. copd 07/28. - 07/28 copd admit with marked pedal edema treated with lasix 80 iv bid--d/c wt 314. sent out on lasix 40 po bid. - marked weakness with activity at home, cxr with fluid in fissure, ? effusions on image review--pulmonary team does not suspect a.e. copd or PNA - BNP 180 (prior range 90-300). phys exam prohibitively TDS for volume assessment, and cannot get standing wts until pt moves from ICU to tele bed. - 08/01 no standing weight done here (ordered today). incr lasix from 40 iv bid to 80 iv bid. - 08/02-: bmp stable on increased IV lasix, still with congestion on cxr 08/07. con't current regimen. - 08/08: wt down to 297. lytes stable. pedal edema resolved. CXR 08/07 with persistent diffuse interstitial infiltrates, ? intra-alveolar infiltrates/edema at bases, small L effusion new vs prior. ? ongoing uncontrolled AF rates driving ongoing diast chf (vs vice versa). Incr lasix to 100 iv bid, give one dose metolazone 5mg today. rpt cxr in am--consider CT chest if uncertainty regarding the dx. AF hr control as doing. renal u/s ordered due to complaints of urinary retention - 08/09: pt declined extra metolazone yesterday and lasix doses because of persistent urinary retention. awaiting affects of increased dose of flomax -08/10: villareal placed this AM, monitor uop with lasix iv -08/11: wt down, good uop, cont iv lasix with villareal - monitor daily labs. weights, i/o - he resists taking lasix bid at home due to freq urinating. should go home on 80 qd this time paroxysmal AF/flutter -cont eliquis for AC -new dx 2015--req'd amio for HR control then (now off due to severe lung dz), s/ p successful DCCV 12/24, then reverted to afib -defer AVN ablation/PPM unless future signs of HF being driven by rapid HRs (to date thus far, his AF rates are well-controlled at office, and only rapid sec to acute copd). -avoiding BB given severe bronchospasm/copd; would like to avoid long-term amio for same reason -on outpatient regimen here, verapamil 240 bid, and dig (level good here). monitor tele -rate typically becomes elevated in settings of respiratory distress and often improves with bipap therapy. - 08/02: K 3.7 and mg 1.6 this am. + recurrent nausea/vomiting this morning --> RVR to 140's . Given 150 IV amio. 0.25 digoxin IV x 1. Given a total of 25 mg of IV dilt and started on diltiazem drip. -08/04-08/07: hr overall controlled. cont dig and verapamil. -08/08: HR worsened controlled, ? contributing to ongoing CHF. running out of AVN charles options here. incr dig to 0.25mg qd (daily levels ordered). aggressive diuresis attempt to continue until pt clearly dry--if remains uncontrolled HR at that time will have to refer to EP to consider AVN ablation/ PM (pt advised of this possibility today) - 08/09: HR still with worsened control/frequent breakthrough RVR. dig level therapeutic today, dig level increased from .125 to .250 (first increased dose today). Patient with significantly more respiratory discomfort today. Optimization of copd as mentioned above. Optimization of volume status as mentioned above. -08/10-08/11: cont with diuresis which should improve HR as vol status improves hld: -continue home statin htn: -stable on current meds, monitor on increased flomax dose. possible cad: -pt had borderline positive mibi in 2012 vs soft tissue attenuation artifact -never had angina sx's -ECG nonsp ST-T no signif change vs prior. trop neg x2. no anginal sx's -continue medical management with statin, AC without ASA
--- NOTE | 2017-08-11 11:56 | PN ---
Progress Note (short form) - Note Progress Note: Lying flat in bed on NIPPV. Breathing has been slowly improving. Less SOB. Reports improving LE edema as well. Intake & Output 08/08/17 08/09/17 08/10/17 08/11/17 23:59 23:59 23:59 23:59 Intake Total 120 100 Output Total 1150 2450 4150 400 Balance -1030 -2450 -4050 -400 Weight 297 lb 8 oz 298 lb 0.4 oz 295 lb 3.2 oz 291 lb 6.4 oz Last Vital Signs Temp Pulse Resp BP Pulse Ox 98.2 F 91 H 20 141/66 94 L 08/11/17 10:00 08/11/17 10:00 08/11/17 10:00 08/11/17 10:00 08/11/17 10:00 Active Medications Acetaminophen (Tylenol -) 650 mg PO Q6H PRN PRN Reason: BACK PAIN Albuterol/Ipratropium (Duoneb -) 1 amp NEB RQID [facility] Last Admin: 08/11/17 11:45 Dose: 1 amp Apixaban (Eliquis -) 5 mg PO BID [facility] Last Admin: 08/11/17 09:19 Dose: 5 mg Atorvastatin Calcium (Lipitor -) 40 mg PO HS [facility] Last Admin: 08/10/17 22:16 Dose: 40 mg Budesonide/Formoterol Fumarate (Symbicort 160/4.5mcg -) 2 puff IH BID [facility] Last Admin: 08/11/17 09:20 Dose: 2 puff Clotrimazole (Lotrisone Cream (Small Tube)) 1 applic TP BID [facility] Last Admin: 08/11/17 09:20 Dose: 1 applic Digoxin (Lanoxin -) 0.25 mg PO DAILY [facility] Last Admin: 08/11/17 09:20 Dose: 0.25 mg Finasteride (Proscar -) 5 mg PO DAILY [facility] Last Admin: 08/11/17 09:20 Dose: 5 mg Fluticasone Propionate (Flonase -) 2 spray NS DAILY [facility] Last Admin: 08/11/17 09:20 Dose: 2 spray Furosemide (Lasix Injection -) 100 mg IVPUSH BID@1000,1600 [facility] Last Admin: 08/11/17 09:18 Dose: 100 mg Gabapentin (Neurontin -) 300 mg PO TID [facility] Last Admin: 08/11/17 06:37 Dose: 300 mg Famotidine/Sodium Chloride (Pepcid 20 Mg Premixed Ivpb -) 20 mg in 50 mls @ 100 mls/hr IVPB BID [facility] Last Admin: 08/11/17 09:18 Dose: 100 mls/hr Insulin Aspart (Novolog Vial Sliding Scale -) 1 vial SQ ACHS [facility] PRN Reason: Protocol Last Admin: 08/11/17 11:52 Dose: 6 units Insulin Detemir (Levemir Vial) 37 units SQ BID@0700,2200 [facility] Last Admin: 08/11/17 06:40 Dose: 37 units Loratadine (Claritin -) 10 mg PO DAILY [facility] Last Admin: 08/11/17 09:20 Dose: 10 mg Prednisone (Deltasone -) 30 mg PO BID [facility] Last Admin: 08/11/17 09:18 Dose: 30 mg Sodium Chloride ([place] -) 2 spray NS BID PRN PRN Reason: NASAL CONGESTION Tamsulosin HCl (Flomax -) 0.8 mg PO DAILY@0830 [facility] Last Admin: 08/11/17 09:19 Dose: 0.8 mg Verapamil HCl (Calan Sr -) 240 mg PO BID [facility] Last Admin: 08/11/17 09:19 Dose: 240 mg Constitutional: Yes: Awake and alert, NAD on NIPPV Eyes: Yes: Conjunctiva Clear, EOM Intact HENT: Yes: Atraumatic, Normocephalic Neck: Yes: Supple, Trachea Midline Cardiovascular: Yes: Pulse Irregular, tachycardia Respiratory: Yes: Diminished, On NIPPV, Rhonchi No: Accessory Muscle Use, Stridor, Tachypnea, Wheezes ...Inspection: Yes: WNL ...Clubbing: No Gastrointestinal: Yes: Normal Bowel Sounds, Soft, Abdomen, Obese Musculoskeletal: Yes: WNL Extremities: Yes: WNL Edema: Yes Peripheral Pulses WNL: Yes Integumentary: Yes: WNL Neurological: Yes: WNL, Alert, Oriented ...Motor Strength: WNL Psychiatric: Yes: WNL, Alert, Oriented Labs: Laboratory Results - last 24 hr 08/10/17 08/10/17 08/10/17 11:55 16:37 22:14 Sodium Potassium Chloride Carbon Dioxide Anion Gap BUN Creatinine POC Glucometer 233 357 334 Random Glucose Calcium Digoxin 08/11/17 08/11/17 08/11/17 05:49 07:00 11:26 Sodium 142 Potassium 4.2 Chloride 94 L Carbon Dioxide 42 H Anion Gap 6 L BUN 27 H Creatinine 0.8 POC Glucometer 208 249 Random Glucose 204 H D Calcium 9.2 Digoxin 1.1603 Problem List - Problems (1) Atrial fibrillation Assessment/Plan: Code(s): I48.91 - UNSPECIFIED ATRIAL FIBRILLATION Qualifiers: Atrial fibrillation type: chronic Qualified Code(s): I48.2 - Chronic atrial fibrillation (2) Acute chronic obstructive pulmonary disease with respiratory distress Assessment/Plan: Code(s): J44.9 - CHRONIC OBSTRUCTIVE PULMONARY DISEASE, UNSPECIFIED; R06.03 - ACUTE RESPIRATORY DISTRESS (3) Acute exacerbation of chronic obstructive pulmonary disease (COPD) Assessment/Plan: Code(s): J44.1 - CHRONIC OBSTRUCTIVE PULMONARY DISEASE W (ACUTE) EXACERBATION (4) CHF exacerbation Assessment/Plan: Code(s): I50.9 - HEART FAILURE, UNSPECIFIED Qualifiers: Congestive heart failure type: unspecified congestive heart failure type Assessment/Plan NIPPV support as needed Prednisone BD TX O2 as needed Daily weight Lasix Rate control per Cardiology Dr Emanuel
[2017-08-11] MEDS ORDERED: PT OWN MED DRAWER 7, Y5N ONE (22:28)
[2017-08-11] MEDS: ATORVASTATIN CA 40 MG TABLET (FP) PO SCH (22:45)
[2017-08-12] MEDS ORDERED: INSULIN (NOVOLOG) ASPART 100 UNITS/ML 10ML VIAL ONE (06:20)
[2017-08-12] MEDS: INSULIN DETEMIR 100 UNITS/ML MDV SQ SCH ×2 (06:30→21:56)
[2017-08-12] MEDS: GABAPENTIN 300 MG CAPSULE (FP) PO SCH ×3 (06:30→21:55)
[2017-08-12] MEDS: INSULIN SLIDING SCALE (NOVOLOG) 1 VIAL SQ SCH ×4 (06:30→21:57)
[2017-08-12 07:29] LABS: HEMATOCRIT 40.8 % (35.4-49); HEMOGLOBIN 12.6 GM/dL (11.7-16.9); MCH 26.3 pg (25.7-33.7); MCHC 30.9 g/dl (32.0-35.9); MEAN PLT VOLUME 8.8 fl (7.5-11.1); PLATELET COUNT 250 K/MM3 (134-434); RDW 20.4 % (11.9-15.9); WHITE BLOOD COUNT 19.7 K/mm3 (4.0-10.0)
[2017-08-12] MEDS: ALBUTEROL SO4 2.5/IPRATROPIUM 0.5 INH SOL 3 ML VIAL.NEB. NEB SCH ×3 (07:30→20:23)
[2017-08-12 08:13] LABS: ANION GAP 6 (8-16); BLOOD UREA NITROGEN 28 mg/dL (7-18); CALCIUM 8.8 mg/dL (8.5-10.1); CHLORIDE 93 mmol/L (98-107); CO2 40 mmol/L (21-32); GLUCOSE,RANDOM 201 mg/dL (74-106); POTASSIUM 3.8 mmol/L (3.5-5.1); SODIUM 139 mmol/L (136-145)
[2017-08-12] MEDS: TAMSULOSIN HCL 0.4 MG CAP.ER.24H (FP) PO SCH (08:26)
[2017-08-12 08:28] LABS: CREATININE 0.7 mg/dL (0.7-1.3)
[2017-08-12] MEDS ORDERED: PT OWN MED DRAWER 7, Y5N ONE ×3 (09:25→22:01)
[2017-08-12] MEDS: FAMOTIDINE 20 MG/50 ML IVPB 20 MG/50 ML MG IVPB SCH ×2 (09:37→21:56)
[2017-08-12] MEDS: FUROSEMIDE 100 MG/10 ML INJECTABLE VIAL IVPUSH SCH ×2 (09:37→16:42)
[2017-08-12] MEDS: VERAPAMIL HCL 240 MG E.R. TABLET (FP) PO SCH ×2 (09:38→23:26)
[2017-08-12] MEDS: predniSONE 20 MG TABLET (UD) PO SCH ×2 (09:38→21:55)
[2017-08-12] MEDS: APIXABAN 5 MG TABLET PO SCH ×2 (09:41→21:55)
[2017-08-12] MEDS: DIGOXIN 0.25 MG TABLET (FP) PO SCH (09:41)
[2017-08-12] MEDS: FINASTERIDE 5 MG TABLET (FP) PO SCH (09:42)
[2017-08-12] MEDS: LORATADINE 10 MG TABLET PO SCH (09:42)
[2017-08-12] MEDS: FLUTICASONE PROP 0.05% 16 GM NASAL SPRAY NS SCH (09:46)
[2017-08-12] MEDS: BUDESONIDE/FORMETEROL FUMARATE 160/4.5 mcg INHALER IH SCH ×2 (09:48→21:58)
[2017-08-12 10:17] LABS: ANISOCYTOSIS 2+; PLATELET ESTIMATE ADEQUATE
[2017-08-12 10:18] LABS: TEAR DROP CELLS FEW
--- NOTE | 2017-08-12 10:37 | PN ---
Progress Note, Physician Chief Complaint: in bed using BIPAP mask - Current Medication List Current Medications: Active Medications Acetaminophen (Tylenol -) 650 mg PO Q6H PRN PRN Reason: BACK PAIN Albuterol/Ipratropium (Duoneb -) 1 amp NEB RQID [facility] Last Admin: 08/12/17 07:30 Dose: 1 amp Apixaban (Eliquis -) 5 mg PO BID [facility] Last Admin: 08/12/17 09:41 Dose: 5 mg Atorvastatin Calcium (Lipitor -) 40 mg PO HS [facility] Last Admin: 08/11/17 22:45 Dose: 40 mg Budesonide/Formoterol Fumarate (Symbicort 160/4.5mcg -) 2 puff IH BID [facility] Last Admin: 08/12/17 09:48 Dose: 2 puff Clotrimazole (Lotrisone Cream (Small Tube)) 1 applic TP BID [facility] Last Admin: 08/11/17 22:51 Dose: Not Given Digoxin (Lanoxin -) 0.25 mg PO DAILY [facility] Last Admin: 08/12/17 09:41 Dose: 0.25 mg Finasteride (Proscar -) 5 mg PO DAILY [facility] Last Admin: 08/12/17 09:42 Dose: 5 mg Fluticasone Propionate (Flonase -) 2 spray NS DAILY [facility] Last Admin: 08/12/17 09:46 Dose: 2 spray Furosemide (Lasix Injection -) 100 mg IVPUSH BID@1000,1600 [facility] Last Admin: 08/12/17 09:37 Dose: 100 mg Gabapentin (Neurontin -) 300 mg PO TID [facility] Last Admin: 08/12/17 06:30 Dose: 300 mg Famotidine/Sodium Chloride (Pepcid 20 Mg Premixed Ivpb -) 20 mg in 50 mls @ 100 mls/hr IVPB BID [facility] Last Admin: 08/12/17 09:37 Dose: 100 mls/hr Insulin Aspart (Novolog Vial Sliding Scale -) 1 vial SQ ACHS [facility] PRN Reason: Protocol Last Admin: 08/12/17 06:30 Dose: 6 units Insulin Detemir (Levemir Vial) 37 units SQ BID@0700,2200 [facility] Last Admin: 08/12/17 06:30 Dose: 37 units Loratadine (Claritin -) 10 mg PO DAILY [facility] Last Admin: 08/12/17 09:42 Dose: 10 mg Prednisone (Deltasone -) 30 mg PO BID [facility] Last Admin: 08/12/17 09:38 Dose: 30 mg Sodium Chloride ([place] Nas[place] -) 2 spray NS BID PRN PRN Reason: NASAL CONGESTION Tamsulosin HCl (Flomax -) 0.8 mg PO DAILY@0830 [facility] Last Admin: 08/12/17 08:26 Dose: 0.8 mg Verapamil HCl (Calan Sr -) 240 mg PO BID [facility] Last Admin: 08/12/17 09:38 Dose: 240 mg - Objective Vital Signs: Vital Signs Temperature 98.4 F 08/12/17 06:30 Pulse Rate 121 H 08/12/17 09:41 Respiratory Rate 18 08/12/17 06:30 Blood Pressure 117/86 08/12/17 06:30 O2 Sat by Pulse Oximetry (%) 93 L 08/12/17 08:15 Constitutional: Yes: Calm Cardiovascular: Yes: Regular Rate and Rhythm, S1, S2 Respiratory: Yes: CTA Bilaterally, Diminished (at bases) Gastrointestinal: Yes: Normal Bowel Sounds, Soft Edema: Yes (minimal edema) Neurological: Yes: Alert Labs: CBC, BMP 08/12/17 06:05 08/12/17 06:05 INR, PTT INR 0.98 (0.82-1.09) 07/30/17 10:40 Problem List - Problems (1) Acute CHF Assessment/Plan: acute on chronic CHF on iv lasix 100mg leg edema is decreasing renal function is ok weight from 295 on 08/10 to 291 on 08/11 [place] Code(s): I50.9 - HEART FAILURE, UNSPECIFIED Qualifiers: Congestive heart failure type: systolic Qualified Code(s): I50.21 - Acute systolic (congestive) heart failure (2) Atrial fibrillation Assessment/Plan: eliquis BID dig and verampamil on cardizem po Code(s): I48.91 - UNSPECIFIED ATRIAL FIBRILLATION Qualifiers: Atrial fibrillation type: chronic Qualified Code(s): I48.2 - Chronic atrial fibrillation (3) COPD (chronic obstructive pulmonary disease) Assessment/Plan: prednsione taper to 30mg po bid will decrease to 20mg bid leukocytosis secondary to steroids bronchodilators bipap at night oxygen via [place] Code(s): J44.9 - CHRONIC OBSTRUCTIVE PULMONARY DISEASE, UNSPECIFIED Qualifiers: COPD type: unspecified COPD Qualified Code(s): J44.9 - Chronic obstructive pulmonary disease, unspecified (4) Diabetes mellitus Assessment/Plan: bgm [id number] noted metofrmin and januvia -stopped levemir prednisone taper Code(s): E11.9 - TYPE 2 DIABETES MELLITUS WITHOUT COMPLICATIONS Qualifiers: Diabetes mellitus type: type 2
--- NOTE | 2017-08-12 11:12 | PN ---
Progress Note (short form) - Note Progress Note: Chief Complaint: sob History of Present Illness: no cp palps dizzy. sob improving ex-cigs Current Medications Generic Name Dose Route Start Last Admin Trade Name Spike PRN Reason Stop Dose Admin Acetaminophen 650 mg 08/04/17 19:19 Tylenol - PO Q6H PRN BACK PAIN Albuterol/Ipratropium 1 amp 08/10/17 00:46 08/12/17 07:30 Duoneb - NEB 1 amp RQID ARVIND Administration Apixaban 5 mg 08/04/17 22:00 08/12/17 09:41 Eliquis - PO 5 mg BID ARVIND Administration Atorvastatin Calcium 40 mg 08/04/17 22:00 08/11/17 22:45 Lipitor - PO 40 mg HS ARVIND Administration Budesonide/Formoterol Fumarate 2 puff 08/04/17 22:00 08/12/17 09:48 Symbicort 160/4.5mcg - IH 2 puff BID ARVIND Administration Clotrimazole 1 applic 08/07/17 10:00 08/11/17 22:51 Lotrisone Cream (Small Tube) TP Not Given BID ARVIND Digoxin 0.25 mg 08/09/17 10:00 08/12/17 09:41 Lanoxin - PO 0.25 mg DAILY ARVIND Administration Finasteride 5 mg 08/09/17 10:00 08/12/17 09:42 Proscar - PO 5 mg DAILY ARVIND Administration Fluticasone Propionate 2 spray 08/05/17 10:00 08/12/17 09:46 Flonase - NS 2 spray DAILY ARVIND Administration Furosemide 100 mg 08/08/17 11:34 08/12/17 09:37 Lasix Injection - IVPUSH 100 mg BID@1000,1600 ARVIND Administration Gabapentin 300 mg 08/04/17 22:00 08/12/17 06:30 Neurontin - PO 300 mg TID ARVIND Administration Famotidine/Sodium Chloride 20 mg in 50 mls @ 100 mls/hr 08/04/17 22:00 09:37 Pepcid 20 Mg Premixed Ivpb - IVPB 100 mls/hr BID ARVIND Administration Insulin Aspart 1 vial 08/04/17 22:00 08/12/17 06:30 Novolog Vial Sliding Scale - SQ 6 units ACHS ARVIND Administration Protocol Insulin Detemir 37 units 08/04/17 22:00 08/12/17 06:30 Levemir Vial SQ 37 units BID@0700,2200 ARVIND Administration Loratadine 10 mg 08/05/17 10:00 08/12/17 09:42 Claritin - PO 10 mg DAILY ARVIND Administration Prednisone 30 mg 08/11/17 07:41 08/12/17 09:38 Deltasone - PO 30 mg BID ARVIND Administration Sodium Chloride 2 spray 08/04/17 19:19 [place] Nas[place] - NS BID PRN NASAL CONGESTION Tamsulosin HCl 0.8 mg 08/09/17 09:38 08/12/17 08:26 Flomax - PO 0.8 mg DAILY@0830 ARVIND Administration Verapamil HCl 240 mg 08/04/17 22:00 08/12/17 09:38 Calan Sr - PO 240 mg BID ARVIND Administration Vital Signs Period Temp Pulse Resp BP Sys/Park Pulse Ox Last 24 Hr 97.4 F-98.4 F 82-121 18-20 110-141/61-86 93-94 Constitutional: Yes: uncomfortable, vomiting. Obese Eyes: No: Sclera Icterus HENT: No: Nasal Congestion Cardiovascular: Yes: Pulse Irregular (soft heart sounds), S1, S2, Other (PMI non diplaced). No: JVD (very tds habitus plus bipap mask), Gallop, Murmur Respiratory: Yes: diminished air movment, Rhonchi, Wheezes. No: Accessory Muscle Use, Rales Gastrointestinal: Yes: Normal Bowel Sounds, Soft. No: Tenderness Extremities: No: Cold Edema: Yes ( trace pretib) Integumentary: No: Jaundice diaphoresis Neurological: Yes: Alert, Oriented (x3) Psychiatric: No: Agitated Labs: CBC, BMP 08/12/17 06:05 08/12/17 06:05 - ....Imaging EKG: Other (tele: afib, rate mostly controlled) echo 07/2016: Nl lv/rv. 1+ AR mibi 12/2012: small posterior ischemia vs artifact, nl lvef, no tid cxr: incr markings at bases c/w atx vs early infiltrate a/p: 72 yo male with h/o AFib s/p prior DCCV 12/2015 to SR on AC, HTN, HL, dchf , PVCs with palpitations, morbid obesity, LUCY on bipap, severe COPD, here with sob. a.e. copd: - copd/lucy tx per pulm acute on chronic diastolic chf: - previous admits, wt up to 340s-350s when decomp chf, with signif incr LE edema - d/c wt 04/26 was 324. and was 315 when left here 07/28, then back up to 327 when back with a.e. copd 07/28. - 07/28 copd admit with marked pedal edema treated with lasix 80 iv bid--d/c wt 314. sent out on lasix 40 po bid. - marked weakness with activity at home, cxr with fluid in fissure, ? effusions on image review--pulmonary team does not suspect a.e. copd or PNA - BNP 180 (prior range 90-300). phys exam prohibitively TDS for volume assessment, and cannot get standing wts until pt moves from ICU to tele bed. - 08/01 no standing weight done here (ordered today). incr lasix from 40 iv bid to 80 iv bid. - 08/02-: bmp stable on increased IV lasix, still with congestion on cxr 08/07. con't current regimen. - 08/08: wt down to 297. lytes stable. pedal edema resolved. CXR 08/07 with persistent diffuse interstitial infiltrates, ? intra-alveolar infiltrates/edema at bases, small L effusion new vs prior. ? ongoing uncontrolled AF rates driving ongoing diast chf (vs vice versa). Incr lasix to 100 iv bid, give one dose metolazone 5mg today. rpt cxr in am--consider CT chest if uncertainty regarding the dx. AF hr control as doing. renal u/s ordered due to complaints of urinary retention - 08/09: pt declined extra metolazone yesterday and lasix doses because of persistent urinary retention. awaiting affects of increased dose of flomax -08/10: villareal placed this AM, monitor uop with lasix iv -08/11-08/12: wt down, good uop, cont iv lasix with villareal - monitor daily labs. weights, i/o - he resists taking lasix bid at home due to freq urinating. should go home on 80 qd this time paroxysmal AF/flutter -cont eliquis for AC -new dx 2015--req'd amio for HR control then (now off due to severe lung dz), s/ p successful DCCV 12/24, then reverted to afib -defer AVN ablation/PPM unless future signs of HF being driven by rapid HRs (to date thus far, his AF rates are well-controlled at office, and only rapid sec to acute copd). -avoiding BB given severe bronchospasm/copd; would like to avoid long-term amio for same reason -on outpatient regimen here, verapamil 240 bid, and dig (level good here). monitor tele -rate typically becomes elevated in settings of respiratory distress and often improves with bipap therapy. - 08/02: K 3.7 and mg 1.6 this am. + recurrent nausea/vomiting this morning --> RVR to 140's . Given 150 IV amio. 0.25 digoxin IV x 1. Given a total of 25 mg of IV dilt and started on diltiazem drip. -08/04-08/07: hr overall controlled. cont dig and verapamil. -08/08: HR worsened controlled, ? contributing to ongoing CHF. running out of AVN charles options here. incr dig to 0.25mg qd (daily levels ordered). aggressive diuresis attempt to continue until pt clearly dry--if remains uncontrolled HR at that time will have to refer to EP to consider AVN ablation/ PM (pt advised of this possibility today) - 08/09: HR still with worsened control/frequent breakthrough RVR. dig level therapeutic today, dig level increased from .125 to .250 (first increased dose today). Patient with significantly more respiratory discomfort today. Optimization of copd as mentioned above. Optimization of volume status as mentioned above. -08/10-08/12: cont with diuresis, HR improving hld: -continue home statin htn: -stable on current meds, monitor on increased flomax dose. possible cad: -pt had borderline positive mibi in 2012 vs soft tissue attenuation artifact -never had angina sx's -ECG nonsp ST-T no signif change vs prior. trop neg x2. no anginal sx's -continue medical management with statin, AC without ASA
[2017-08-12] MEDS: CLOTRIMAZOLE/BETAMET DIPROP 15 GM TUBE TP SCH ×2 (12:02→21:58)
--- NOTE | 2017-08-12 12:57 | PN ---
Progress Note, Physician History of Present Illness: PULMONARY ALERT,ON BIPAP ,C/O INCREASED SOB TODAY - Current Medication List Current Medications: Active Medications Acetaminophen (Tylenol -) 650 mg PO Q6H PRN PRN Reason: BACK PAIN Albuterol/Ipratropium (Duoneb -) 1 amp NEB RQID [facility] Last Admin: 08/12/17 07:30 Dose: 1 amp Apixaban (Eliquis -) 5 mg PO BID [facility] Last Admin: 08/12/17 09:41 Dose: 5 mg Atorvastatin Calcium (Lipitor -) 40 mg PO HS [facility] Last Admin: 08/11/17 22:45 Dose: 40 mg Budesonide/Formoterol Fumarate (Symbicort 160/4.5mcg -) 2 puff IH BID [facility] Last Admin: 08/12/17 09:48 Dose: 2 puff Clotrimazole (Lotrisone Cream (Small Tube)) 1 applic TP BID [facility] Last Admin: 08/12/17 12:02 Dose: Not Given Digoxin (Lanoxin -) 0.25 mg PO DAILY [facility] Last Admin: 08/12/17 09:41 Dose: 0.25 mg Finasteride (Proscar -) 5 mg PO DAILY [facility] Last Admin: 08/12/17 09:42 Dose: 5 mg Fluticasone Propionate (Flonase -) 2 spray NS DAILY [facility] Last Admin: 08/12/17 09:46 Dose: 2 spray Furosemide (Lasix Injection -) 100 mg IVPUSH BID@1000,1600 [facility] Last Admin: 08/12/17 09:37 Dose: 100 mg Gabapentin (Neurontin -) 300 mg PO TID [facility] Last Admin: 08/12/17 06:30 Dose: 300 mg Famotidine/Sodium Chloride (Pepcid 20 Mg Premixed Ivpb -) 20 mg in 50 mls @ 100 mls/hr IVPB BID [facility] Last Admin: 08/12/17 09:37 Dose: 100 mls/hr Insulin Aspart (Novolog Vial Sliding Scale -) 1 vial SQ ACHS [facility] PRN Reason: Protocol Last Admin: 08/12/17 11:50 Dose: 6 units Insulin Detemir (Levemir Vial) 37 units SQ BID@0700,2200 [facility] Last Admin: 08/12/17 06:30 Dose: 37 units Loratadine (Claritin -) 10 mg PO DAILY [facility] Last Admin: 02/02/18 09:42 Dose: 10 mg Prednisone (Deltasone -) 30 mg PO BID [facility] Last Admin: 08/12/17 09:38 Dose: 30 mg Sodium Chloride ([place] Nasal [place] -) 2 spray NS BID PRN PRN Reason: NASAL CONGESTION Tamsulosin HCl (Flomax -) 0.8 mg PO DAILY@0830 [facility] Last Admin: 08/12/17 08:26 Dose: 0.8 mg Verapamil HCl (Calan Sr -) 240 mg PO BID [facility] Last Admin: 08/12/17 09:38 Dose: 240 mg - Objective Vital Signs: Vital Signs Temperature 98.2 F 08/12/17 10:00 Pulse Rate 117 H 08/12/17 10:00 Respiratory Rate 18 08/12/17 10:00 Blood Pressure 138/101 08/12/17 10:00 O2 Sat by Pulse Oximetry (%) 93 L 08/12/17 10:00 Constitutional: Yes: Calm, Obese Eyes: Yes: WNL HENT: Yes: WNL Neck: Yes: WNL Cardiovascular: Yes: Pulse Irregular, S1 Respiratory: Yes: On BiPap, Rhonchi (SCATTERED RENUKA RHONCHI) Gastrointestinal: Yes: Normal Bowel Sounds, Soft Extremities: Yes: WNL Edema: No Labs: CBC, BMP 08/12/17 06:05 08/12/17 06:05 INR, PTT INR 0.98 (0.82-1.09) 07/30/17 10:40 Assessment/Plan ASSESSMENT AND PLAN: Atrial Fibrillation with RVR Acute on Chronic Diastolic Heart Failure Acute COPD Exacerbation Acute on Chronic Hypoxic and Hypercapneic Respiratory Failure HTN Hypercholesterolemia Morbid Obesity LUCY - IV lasix - monitor urine output, creatinine - daily weights, I/Os - anticoagulation - prednisone - inhaled bronchodilators - O2 to keep Spo2 >88% - BiPAP at night and PRN during day DR STACK
--- NOTE | 2017-08-12 18:13 | PN ---
Progress Note (short form) - Note Progress Note: has dyspnea at rest,cough and wheezing requiring steroids for copd Abnormal Lab Results 08/12/17 08/12/17 06:05 06:05 WBC 19.7 H D MCHC 30.9 L RDW 20.4 H Neutrophils % (Manual) 86.0 H Lymphocytes % (Manual) 6.0 L D Nucleated RBC % 2 H Chloride 93 L Carbon Dioxide 40 H Anion Gap 6 L BUN 28 H Random Glucose 201 H Laboratory Results - last 24 hr 08/11/17 08/12/17 08/12/17 22:38 06:05 06:05 WBC 19.7 H D RBC 4.80 Hgb 12.6 Hct 40.8 MCV 85.0 MCH 26.3 MCHC 30.9 L RDW 20.4 H Plt Count 250 D MPV 8.8 Total Counted 100 Neutrophils % No Result Required. Neutrophils % (Manual) 86.0 H Lymphocytes % No Result Required. Lymphocytes % (Manual) 6.0 L D Monocytes % (Manual) 6 D Myelocytes % (Man) 1 D Nucleated RBC % 2 H Metamyelocytes 1 D Hypochromia 1+ Platelet Estimate Adequate Anisocytosis 2+ Microcytosis 1+ Tear Drop Cells Few Sodium 139 Potassium 3.8 Chloride 93 L Carbon Dioxide 40 H Anion Gap 6 L BUN 28 H Creatinine 0.7 POC Glucometer 282 Random Glucose 201 H Calcium 8.8 Digoxin 1.2290 08/12/17 08/12/17 08/12/17 06:29 11:26 16:04 WBC RBC Hgb Hct MCV MCH MCHC RDW Plt Count MPV Total Counted Neutrophils % Neutrophils % (Manual) Lymphocytes % Lymphocytes % (Manual) Monocytes % (Manual) Myelocytes % (Man) Nucleated RBC % Metamyelocytes Hypochromia Platelet Estimate Anisocytosis Microcytosis Tear Drop Cells Sodium Potassium Chloride Carbon Dioxide Anion Gap BUN Creatinine POC Glucometer 209 240 291 Random Glucose Calcium Digoxin Current Active Problems Atrial fibrillation (Acute) BPH loc w urin obs/LUTS (Acute) COPD (chronic obstructive pulmonary disease) (Acute) Other specified eating disorder (Acute) Type 2 diabetes mellitus with diabetic neuropathy (Acute) plan: bgm as qid novolog doses levemir dose 40 units bid will need titration of dose insulin as steroids are tapered Problem List - Problems (1) Type 2 diabetes mellitus with diabetic neuropathy Code(s): E11.40 - TYPE 2 DIABETES MELLITUS WITH DIABETIC NEUROPATHY, UNSP (2) Atrial fibrillation Code(s): I48.91 - UNSPECIFIED ATRIAL FIBRILLATION Qualifiers: Atrial fibrillation type: chronic Qualified Code(s): I48.2 - Chronic atrial fibrillation (3) Acute CHF Code(s): I50.9 - HEART FAILURE, UNSPECIFIED Qualifiers: Congestive heart failure type: systolic Qualified Code(s): I50.21 - Acute systolic (congestive) heart failure (4) Acute bronchitis Code(s): J20.9 - ACUTE BRONCHITIS, UNSPECIFIED Qualifiers: Bronchitis organism: unspecified organism Qualified Code(s): J20.9 - Acute bronchitis, unspecified (5) Acute chronic obstructive pulmonary disease with respiratory distress Code(s): J44.9 - CHRONIC OBSTRUCTIVE PULMONARY DISEASE, UNSPECIFIED; R06.03 - ACUTE RESPIRATORY DISTRESS (6) Acute exacerbation of chronic obstructive pulmonary disease (COPD) Code(s): J44.1 - CHRONIC OBSTRUCTIVE PULMONARY DISEASE W (ACUTE) EXACERBATION
[2017-08-12] MEDS: ATORVASTATIN CA 40 MG TABLET (FP) PO SCH (21:56)
[2017-08-13] MEDS: GABAPENTIN 300 MG CAPSULE (FP) PO SCH ×3 (05:58→22:00)
[2017-08-13] MEDS: INSULIN SLIDING SCALE (NOVOLOG) 1 VIAL SQ SCH ×4 (06:10→22:12)
[2017-08-13] MEDS: INSULIN DETEMIR 100 UNITS/ML MDV SQ SCH ×2 (06:10→22:11)
[2017-08-13] MEDS ORDERED: INSULIN (NOVOLOG) ASPART 100 UNITS/ML 10ML VIAL ONE ×2 (06:35→11:07)
--- NOTE | 2017-08-13 08:21 | PN ---
Progress Note, Physician Chief Complaint: sob History of Present Illness: sob much improved but still "a little" bit sob less wheezing only requiring bipap during sleep now no leg swelling no cp, palpit ex cigs - Current Medication List Current Medications: Active Medications Acetaminophen (Tylenol -) 650 mg PO Q6H PRN PRN Reason: BACK PAIN Albuterol/Ipratropium (Duoneb -) 1 amp NEB RQID [facility] Last Admin: 08/12/17 20:23 Dose: 1 amp Apixaban (Eliquis -) 5 mg PO BID [facility] Last Admin: 08/12/17 21:55 Dose: 5 mg Atorvastatin Calcium (Lipitor -) 40 mg PO HS [facility] Last Admin: 08/12/17 21:56 Dose: 40 mg Budesonide/Formoterol Fumarate (Symbicort 160/4.5mcg -) 2 puff IH BID [facility] Last Admin: 08/12/17 21:58 Dose: 2 puff Clotrimazole (Lotrisone Cream (Small Tube)) 1 applic TP BID [facility] Last Admin: 08/12/17 21:58 Dose: 1 applic Digoxin (Lanoxin -) 0.25 mg PO DAILY [facility] Last Admin: 08/12/17 09:41 Dose: 0.25 mg Finasteride (Proscar -) 5 mg PO DAILY [facility] Last Admin: 08/12/17 09:42 Dose: 5 mg Fluticasone Propionate (Flonase -) 2 spray NS DAILY [facility] Last Admin: 08/12/17 09:46 Dose: 2 spray Furosemide (Lasix Injection -) 100 mg IVPUSH BID@1000,1600 [facility] Last Admin: 08/12/17 16:42 Dose: 100 mg Gabapentin (Neurontin -) 300 mg PO TID [facility] Last Admin: 08/13/17 05:58 Dose: 300 mg Famotidine/Sodium Chloride (Pepcid 20 Mg Premixed Ivpb -) 20 mg in 50 mls @ 100 mls/hr IVPB BID [facility] Last Admin: 08/12/17 21:56 Dose: 100 mls/hr Insulin Aspart (Novolog Vial Sliding Scale -) 1 vial SQ ACHS [facility] PRN Reason: Protocol Last Admin: 08/13/17 06:10 Dose: 12 units Insulin Detemir (Levemir Vial) 40 units SQ BID@0700,2200 [facility] Last Admin: 08/13/17 06:10 Dose: 40 unit Loratadine (Claritin -) 10 mg PO DAILY [facility] Last Admin: 08/12/17 09:42 Dose: 10 mg Prednisone (Deltasone -) 30 mg PO BID [facility] Last Admin: 08/12/17 21:55 Dose: 30 mg Sodium Chloride ([place] Nasal [place] -) 2 spray NS BID PRN PRN Reason: NASAL CONGESTION Tamsulosin HCl (Flomax -) 0.8 mg PO DAILY@0830 [facility] Last Admin: 08/12/17 08:26 Dose: 0.8 mg Verapamil HCl (Calan Sr -) 240 mg PO BID [facility] Last Admin: 08/12/17 23:26 Dose: 240 mg - Objective Vital Signs: Vital Signs Temperature 97.6 F 08/13/17 06:00 Pulse Rate 94 H 08/13/17 06:00 Respiratory Rate 18 08/13/17 06:00 Blood Pressure 146/73 08/13/17 06:00 O2 Sat by Pulse Oximetry (%) 93 L 08/13/17 07:00 Constitutional: Yes: No Distress, Calm, Obese Eyes: No: Sclera Icterus HENT: No: Nasal Congestion Cardiovascular: Yes: Pulse Irregular (decr sounds), S1, S2, Other (PMI non diplaced). No: JVD (tds bipap, obese), Gallop, Murmur Respiratory: Yes: CTA Bilaterally, Wheezes (few). No: Accessory Muscle Use, Rales Gastrointestinal: Yes: Normal Bowel Sounds, Soft. No: Tenderness Musculoskeletal: Yes: Other (No kyphosis) Extremities: No: Cold Edema: No Integumentary: No: Jaundice Neurological: Yes: Alert, Oriented (x3) Psychiatric: No: Agitated Labs: CBC, BMP 08/12/17 06:05 08/12/17 06:05 INR, PTT INR 0.98 (0.82-1.09) 07/30/17 10:40 - ....Imaging EKG: Other (tele: afib 80s-100s with spikes to 120s) Assessment/Plan echo 07/2016: Nl lv/rv. 1+ AR mibi 12/2012: small posterior ischemia vs artifact, nl lvef, no tid cxr: incr markings at bases c/w atx vs early infiltrate a/p: 72 yo male with h/o AFib s/p prior DCCV 12/2015 to SR on AC, HTN, HL, dchf , PVCs with palpitations, morbid obesity, LUCY on bipap, severe COPD, here with sob. a.e. copd: - copd/lucy tx per pulm acute on chronic diastolic chf: - previous admits, wt up to 340s-350s when decomp chf, with signif incr LE edema - d/c wt 04/26 was 324. and was 315 when left here 07/28, then back up to 327 when back with a.e. copd 07/28. - 07/28 copd admit with marked pedal edema treated with lasix 80 iv bid--d/c wt 314. sent out on lasix 40 po bid. - marked weakness with activity at home, cxr with fluid in fissure, ? effusions on image review--pulmonary team does not suspect a.e. copd or PNA - BNP 180 (prior range 90-300). phys exam prohibitively TDS for volume assessment, and cannot get standing wts until pt moves from ICU to tele bed. - 08/01 no standing weight done here (ordered today). incr lasix from 40 iv bid to 80 iv bid. - 08/02-: bmp stable on increased IV lasix, still with congestion on cxr 08/07. con't current regimen. - 08/08: wt down to 297. lytes stable. pedal edema resolved. CXR 08/07 with persistent diffuse interstitial infiltrates, ? intra-alveolar infiltrates/edema at bases, small L effusion new vs prior. ? ongoing uncontrolled AF rates driving ongoing diast chf (vs vice versa). Incr lasix to 100 iv bid, give one dose metolazone 5mg today. rpt cxr in am--consider CT chest if uncertainty regarding the dx. AF hr control as doing. renal u/s ordered due to complaints of urinary retention - 2/3: developed retention sx's, flomax started. wt continues to progressively decline with lasix 100 IV bid (now 289 lbs). bicarb trending up the past couple of days (40s). suspect volume-contracted at present. - change lasix 100 iv bid to torsemide 100 po qd. - he resists taking lasix bid at home due to freq urinating. should go home on 80 qd this time paroxysmal AF/flutter -cont eliquis for AC -new dx 2015--req'd amio for HR control then (now off due to severe lung dz), s/ p successful DCCV 12/24, then reverted to afib -defer AVN ablation/PPM unless future signs of HF being driven by rapid HRs (to date thus far, his AF rates are well-controlled at office, and only rapid sec to acute copd). -avoiding BB given severe bronchospasm/copd; would like to avoid long-term amio for same reason -on outpatient regimen here, verapamil 240 bid, and dig (level good here). monitor tele -rate typically becomes elevated in settings of respiratory distress and often improves with bipap therapy. - 08/02: rapid HR (140s) in setting of nausea/vomiting. Given 150 IV amio. 0.25 digoxin IV x 1. Given a total of 25 mg of IV dilt and started on diltiazem drip. -08/04-08/07: hr overall controlled. cont dig and verapamil. -08/08: HR worsened controlled, ? contributing to ongoing CHF. running out of AVN charles options here. incr dig to 0.25mg qd (daily levels ordered). aggressive diuresis attempt to continue until pt clearly dry--if remains uncontrolled HR at that time will have to refer to EP to consider AVN ablation/ PM (pt advised of this possibility today) -08/09-22: HR improved, meds unchanged -08/13: HR 80s-100s, spikes to 120s often. HR control remains suboptimal presuming this is driving his diast CHF (not certain here). will cautiously add low dose B-selective B-charles (metoprolol 25mg qd) while pt in hospital and can be monitored (this dose of metopr very unlikely to worsen bronchospasm). cont verap 240 bid, dig 0.25 (levels good). hld: -continue home statin htn: -stable -same meds possible cad: -pt had borderline positive mibi in 2012 vs soft tissue attenuation artifact -never had angina sx's -ECG nonsp ST-T no signif change vs prior. trop neg x2. no anginal sx's -continue medical management with statin, AC without ASA
[2017-08-13] MEDS: ALBUTEROL SO4 2.5/IPRATROPIUM 0.5 INH SOL 3 ML VIAL.NEB. NEB SCH ×4 (08:40→20:00)
[2017-08-13] MEDS ORDERED: PT OWN MED DRAWER 7, Y5N ONE ×2 (09:09→21:32)
[2017-08-13] MEDS: TAMSULOSIN HCL 0.4 MG CAP.ER.24H (FP) PO SCH (09:18)
[2017-08-13] MEDS: LORATADINE 10 MG TABLET PO SCH (09:18)
[2017-08-13] MEDS: FINASTERIDE 5 MG TABLET (FP) PO SCH (09:19)
[2017-08-13] MEDS: predniSONE 20 MG TABLET (UD) PO SCH ×2 (09:19→22:00)
[2017-08-13] MEDS: DIGOXIN 0.25 MG TABLET (FP) PO SCH (09:19)
[2017-08-13] MEDS: APIXABAN 5 MG TABLET PO SCH ×2 (09:19→22:00)
[2017-08-13] MEDS: FAMOTIDINE 20 MG/50 ML IVPB 20 MG/50 ML MG IVPB SCH ×2 (09:20→22:00)
[2017-08-13] MEDS: VERAPAMIL HCL 240 MG E.R. TABLET (FP) PO SCH ×2 (09:22→22:00)
[2017-08-13] MEDS: FUROSEMIDE 100 MG/10 ML INJECTABLE VIAL IVPUSH SCH (09:22)
[2017-08-13] MEDS: FLUTICASONE PROP 0.05% 16 GM NASAL SPRAY NS SCH (09:28)
[2017-08-13] MEDS: CLOTRIMAZOLE/BETAMET DIPROP 15 GM TUBE TP SCH ×2 (09:28→22:01)
[2017-08-13] MEDS: BUDESONIDE/FORMETEROL FUMARATE 160/4.5 mcg INHALER IH SCH ×2 (09:28→22:01)
[2017-08-13 10:27] LABS: BLOOD UREA NITROGEN 28 mg/dL (7-18); CALCIUM 9.3 mg/dL (8.5-10.1); CHLORIDE 92 mmol/L (98-107); CREATININE 0.9 mg/dL (0.7-1.3); SODIUM 139 mmol/L (136-145)
[2017-08-13 10:44] LABS: ANION GAP 11 (8-16); CO2 36 mmol/L (21-32)
[2017-08-13 11:21] LABS: GLUCOSE,RANDOM 303 mg/dL (74-106)
[2017-08-13] MEDS: metoPROLOL SUCCINATE 25 MG TAB.SR.24H (FP) PO SCH (11:57)
[2017-08-13] MEDS: MAG HYDROX/ALH/SMC/DPHA/LIDO 240 ML MOUTHWASH MM SCH ×2 (12:00→17:01)
--- NOTE | 2017-08-13 13:13 | PN ---
Progress Note (short form) - Note Progress Note: PULMONARY Breathing better today. On/off BiPAP. Good urine output with lasix and villareal in place. Last Vital Signs Temp Pulse Resp BP Pulse Ox 97.6 F 100 H 18 125/72 93 L 08/13/17 09:17 18 09:19 08/13/17 09:17 08/13/17 09:17 08/13/17 11:35 Intake & Output 08/10/17 08/11/17 08/12/17 08/13/17 23:59 23:59 23:59 23:59 Intake Total 100 120 Output Total 4150 3800 2800 600 Balance -4050 -3800 -2680 -600 Weight 133.9 kg 132.177 kg 131.088 kg Gen: less tachypneic with speaking Heart: RRR Lung: scattered rhonchi R>L Abd: soft, nontender Ext: decreased edema CBC, BMP 08/12/17 06:05 08/13/17 07:45 Active Medications Acetaminophen (Tylenol -) 650 mg PO Q6H PRN PRN Reason: BACK PAIN Albuterol/Ipratropium (Duoneb -) 1 amp NEB RQID [facility] Last Admin: 08/13/17 11:33 Dose: 1 amp Apixaban (Eliquis -) 5 mg PO BID [facility] Last Admin: 08/13/17 09:19 Dose: 5 mg Atorvastatin Calcium (Lipitor -) 40 mg PO HS [facility] Last Admin: 08/12/17 21:56 Dose: 40 mg Budesonide/Formoterol Fumarate (Symbicort 160/4.5mcg -) 2 puff IH BID [facility] Last Admin: 08/13/17 09:28 Dose: 2 puff Clotrimazole (Lotrisone Cream (Small Tube)) 1 applic TP BID [facility] Last Admin: 08/13/17 09:28 Dose: 1 applic Digoxin (Lanoxin -) 0.25 mg PO DAILY [facility] Last Admin: 08/13/17 09:19 Dose: 0.25 mg Finasteride (Proscar -) 5 mg PO DAILY [facility] Last Admin: 08/13/17 09:19 Dose: 5 mg Fluticasone Propionate (Flonase -) 2 spray NS DAILY [facility] Last Admin: 08/13/17 09:28 Dose: 2 spray Gabapentin (Neurontin -) 300 mg PO TID [facility] Last Admin: 08/13/17 05:58 Dose: 300 mg Famotidine/Sodium Chloride (Pepcid 20 Mg Premixed Ivpb -) 20 mg in 50 mls @ 100 mls/hr IVPB BID [facility] Last Admin: 08/13/17 09:20 Dose: 100 mls/hr Insulin Aspart (Novolog Vial Sliding Scale -) 1 vial SQ ACHS [facility] PRN Reason: Protocol Last Admin: 08/13/17 11:34 Dose: 8 units Insulin Detemir (Levemir Vial) 40 units SQ BID@0700,2200 [facility] Last Admin: 08/13/17 06:10 Dose: 40 unit Loratadine (Claritin -) 10 mg PO DAILY [facility] Last Admin: 08/13/17 09:18 Dose: 10 mg Metoprolol Succinate (Toprol Xl -) 25 mg PO DAILY [facility] Last Admin: 08/13/17 11:57 Dose: 25 mg Prednisone (Deltasone -) 30 mg PO BID [facility] Last Admin: 08/13/17 09:19 Dose: 30 mg Sodium Chloride ([place] Nasal [place] -) 2 spray NS BID PRN PRN Reason: NASAL CONGESTION Tamsulosin HCl (Flomax -) 0.8 mg PO DAILY@0830 [facility] Last Admin: 08/13/17 09:18 Dose: 0.8 mg Torsemide (Demadex -) 100 mg PO DAILY [facility] Verapamil HCl (Calan Sr -) 240 mg PO BID [facility] Last Admin: 08/13/17 09:22 Dose: 240 mg A/P Atrial Fibrillation with RVR Acute on Chronic Diastolic Heart Failure Acute COPD Exacerbation Acute on Chronic Hypoxic and Hypercapneic Respiratory Failure HTN Hypercholesterolemia Morbid Obesity LUCY - titrate rate control - continue torsemide - monitor urine output, creatinine - daily weights, I/Os - continue anticoagulation - prednisone taper - inhaled bronchodilators - O2 to keep Spo2 >88% - BiPAP at night and PRN during day - magic mouthwash for oral ulcers
--- NOTE | 2017-08-13 13:57 | PN ---
Progress Note, Physician Chief Complaint: ASLEEP COMFORTABLE ON BIPAP - Current Medication List Current Medications: Active Medications Acetaminophen (Tylenol -) 650 mg PO Q6H PRN PRN Reason: BACK PAIN Albuterol/Ipratropium (Duoneb -) 1 amp NEB RQID [facility] Last Admin: 08/13/17 11:33 Dose: 1 amp Apixaban (Eliquis -) 5 mg PO BID [facility] Last Admin: 08/13/17 09:19 Dose: 5 mg Atorvastatin Calcium (Lipitor -) 40 mg PO HS [facility] Last Admin: 08/12/17 21:56 Dose: 40 mg Budesonide/Formoterol Fumarate (Symbicort 160/4.5mcg -) 2 puff IH BID [facility] Last Admin: 08/13/17 09:28 Dose: 2 puff Clotrimazole (Lotrisone Cream (Small Tube)) 1 applic TP BID [facility] Last Admin: 08/13/17 09:28 Dose: 1 applic Digoxin (Lanoxin -) 0.25 mg PO DAILY [facility] Last Admin: 08/13/17 09:19 Dose: 0.25 mg Finasteride (Proscar -) 5 mg PO DAILY [facility] Last Admin: 08/13/17 09:19 Dose: 5 mg Fluticasone Propionate (Flonase -) 2 spray NS DAILY [facility] Last Admin: 08/13/17 09:28 Dose: 2 spray Gabapentin (Neurontin -) 300 mg PO TID [facility] Last Admin: 08/13/17 05:58 Dose: 300 mg Famotidine/Sodium Chloride (Pepcid 20 Mg Premixed Ivpb -) 20 mg in 50 mls @ 100 mls/hr IVPB BID [facility] Last Admin: 08/13/17 09:20 Dose: 100 mls/hr Insulin Aspart (Novolog Vial Sliding Scale -) 1 vial SQ ACHS [facility] PRN Reason: Protocol Last Admin: 08/13/17 11:34 Dose: 8 units Insulin Detemir (Levemir Vial) 40 units SQ BID@0700,2200 [facility] Last Admin: 08/13/17 06:10 Dose: 40 unit Lidocaine/Aluminum/Magnesium/Simeth (Magic Mouthwash *Sjr Formula* -) 5 ml MM Q6HPO [facility] Loratadine (Claritin -) 10 mg PO DAILY [facility] Last Admin: 08/13/17 09:18 Dose: 10 mg Metoprolol Succinate (Toprol Xl -) 25 mg PO DAILY [facility] Last Admin: 08/13/17 11:57 Dose: 25 mg Prednisone (Deltasone -) 30 mg PO BID [facility] Last Admin: 08/13/17 09:19 Dose: 30 mg Sodium Chloride ([place] Nasal [place] -) 2 spray NS BID PRN PRN Reason: NASAL CONGESTION Tamsulosin HCl (Flomax -) 0.8 mg PO DAILY@0830 [facility] Last Admin: 08/13/17 09:18 Dose: 0.8 mg Torsemide (Demadex -) 100 mg PO DAILY [facility] Verapamil HCl (Calan Sr -) 240 mg PO BID [facility] Last Admin: 08/13/17 09:22 Dose: 240 mg - Objective Vital Signs: Vital Signs Temperature 97.6 F 08/13/17 09:17 Pulse Rate 100 H 08/13/17 09:19 Respiratory Rate 18 08/13/17 09:17 Blood Pressure 125/72 08/13/17 09:17 O2 Sat by Pulse Oximetry (%) 93 L 08/13/17 11:35 Constitutional: Yes: No Distress Eyes: Yes: WNL HENT: Yes: WNL Neck: Yes: WNL Cardiovascular: Yes: Pulse Irregular Respiratory: Yes: On BiPap Gastrointestinal: Yes: WNL Genitourinary: Yes: WNL Extremities: Yes: WNL Edema: No Peripheral Pulses WNL: Yes Integumentary: Yes: WNL Wound/Incision: Yes: Clean/Dry Neurological: Yes: WNL ...Motor Strength: WNL Psychiatric: Yes: WNL Labs: CBC, BMP 08/12/17 06:05 08/13/17 07:45 INR, PTT INR 0.98 (0.82-1.09) 07/30/17 10:40 Problem List - Problems (1) Atrial fibrillation Code(s): I48.91 - UNSPECIFIED ATRIAL FIBRILLATION Qualifiers: Atrial fibrillation type: chronic Qualified Code(s): I48.2 - Chronic atrial fibrillation (2) COPD (chronic obstructive pulmonary disease) Code(s): J44.9 - CHRONIC OBSTRUCTIVE PULMONARY DISEASE, UNSPECIFIED Qualifiers: COPD type: unspecified COPD Qualified Code(s): J44.9 - Chronic obstructive pulmonary disease, unspecified (3) Type 2 diabetes mellitus with diabetic neuropathy Code(s): E11.40 - TYPE 2 DIABETES MELLITUS WITH DIABETIC NEUROPATHY, UNSP (4) Acute CHF Code(s): I50.9 - HEART FAILURE, UNSPECIFIED Qualifiers: Congestive heart failure type: systolic Qualified Code(s): I50.21 - Acute systolic (congestive) heart failure (5) Acute bronchitis with COPD Code(s): J44.0 - CHRONIC OBSTRUCTIVE PULMON DISEASE W ACUTE LOWER RESP INFCT Assessment/Plan BIPAP STEROIDS DIURESIS IOV LASIX ARRYTHMIA MONITOR ON TELE SNF PULM REHAB TUESDAY
[2017-08-13] MEDS: ATORVASTATIN CA 40 MG TABLET (FP) PO SCH (22:00)
[2017-08-14] MEDS: MAG HYDROX/ALH/SMC/DPHA/LIDO 240 ML MOUTHWASH MM SCH ×5 (00:30→23:02)
[2017-08-14] MEDS ORDERED: PT OWN MED DRAWER 7, Y5N ONE ×3 (06:41→21:40)
[2017-08-14] MEDS: INSULIN DETEMIR 100 UNITS/ML MDV SQ SCH ×2 (06:44→21:45)
[2017-08-14] MEDS: INSULIN SLIDING SCALE (NOVOLOG) 1 VIAL SQ SCH ×4 (06:46→21:45)
[2017-08-14] MEDS: GABAPENTIN 300 MG CAPSULE (FP) PO SCH ×3 (06:47→21:42)
--- NOTE | 2017-08-14 07:55 | PN ---
Progress Note, Physician Chief Complaint: sob History of Present Illness: still sob when has bipap off--not severe. wheezing as well. no cp, palpit, leg swelling ex cigs - Current Medication List Current Medications: Active Medications Acetaminophen (Tylenol -) 650 mg PO Q6H PRN PRN Reason: BACK PAIN Albuterol/Ipratropium (Duoneb -) 1 amp NEB RQID [facility] Last Admin: 08/13/17 20:00 Dose: 1 amp Apixaban (Eliquis -) 5 mg PO BID [facility] Last Admin: 08/13/17 22:00 Dose: 5 mg Atorvastatin Calcium (Lipitor -) 40 mg PO HS [facility] Last Admin: 08/13/17 22:00 Dose: 40 mg Budesonide/Formoterol Fumarate (Symbicort 160/4.5mcg -) 2 puff IH BID [facility] Last Admin: 08/13/17 22:01 Dose: 2 puff Clotrimazole (Lotrisone Cream (Small Tube)) 1 applic TP BID [facility] Last Admin: 08/13/17 22:01 Dose: 1 applic Digoxin (Lanoxin -) 0.25 mg PO DAILY [facility] Last Admin: 08/13/17 09:19 Dose: 0.25 mg Finasteride (Proscar -) 5 mg PO DAILY [facility] Last Admin: 08/13/17 09:19 Dose: 5 mg Fluticasone Propionate (Flonase -) 2 spray NS DAILY [facility] Last Admin: 08/13/17 09:28 Dose: 2 spray Gabapentin (Neurontin -) 300 mg PO TID [facility] Last Admin: 08/14/17 06:47 Dose: 300 mg Famotidine/Sodium Chloride (Pepcid 20 Mg Premixed Ivpb -) 20 mg in 50 mls @ 100 mls/hr IVPB BID [facility] Last Admin: 08/13/17 22:00 Dose: 100 mls/hr Insulin Aspart (Novolog Vial Sliding Scale -) 1 vial SQ ACHS [facility] PRN Reason: Protocol Last Admin: 08/14/17 06:46 Dose: 6 units Insulin Detemir (Levemir Vial) 40 units SQ BID@0700,2200 [facility] Last Admin: 08/14/17 06:44 Dose: 40 unit Lidocaine/Aluminum/Magnesium/Simeth (Magic Mouthwash *Sjr Formula* -) 5 ml MM Q6HPO [facility] Last Admin: 08/14/17 06:47 Dose: 5 ml Loratadine (Claritin -) 10 mg PO DAILY [facility] Last Admin: 08/13/17 09:18 Dose: 10 mg Metoprolol Succinate (Toprol Xl -) 25 mg PO DAILY [facility] Last Admin: 08/13/17 11:57 Dose: 25 mg Prednisone (Deltasone -) 30 mg PO BID [facility] Last Admin: 08/13/17 22:00 Dose: 30 mg Sodium Chloride ([place] Nasal [place] -) 2 spray NS BID PRN PRN Reason: NASAL CONGESTION Tamsulosin HCl (Flomax -) 0.8 mg PO DAILY@0830 [facility] Last Admin: 08/13/17 09:18 Dose: 0.8 mg Torsemide (Demadex -) 100 mg PO DAILY [facility] Verapamil HCl (Calan Sr -) 240 mg PO BID [facility] Last Admin: 08/13/17 22:00 Dose: 240 mg - Objective Vital Signs: Vital Signs Temperature 97.6 F 08/14/17 06:00 Pulse Rate 95 H 08/14/17 06:00 Respiratory Rate 18 08/14/17 06:00 Blood Pressure 138/75 08/14/17 06:00 O2 Sat by Pulse Oximetry (%) 92 L 08/14/17 06:16 Constitutional: Yes: No Distress, Calm, Obese Eyes: No: Sclera Icterus HENT: No: Nasal Congestion Cardiovascular: Yes: Pulse Irregular (soft sounds), S1, S2, Other (PMI non diplaced). No: JVD (++ tds habitus), Gallop, Murmur Respiratory: Yes: Regular (decr sounds), Wheezes. No: Accessory Muscle Use Gastrointestinal: Yes: Normal Bowel Sounds, Soft. No: Tenderness Musculoskeletal: Yes: Other (No kyphosis) Extremities: No: Cold Edema: No Integumentary: No: Jaundice Neurological: Yes: Alert, Oriented (x3) Psychiatric: No: Agitated Labs: CBC, BMP 08/12/17 06:05 08/13/17 07:45 INR, PTT INR 0.98 (0.82-1.09) 07/30/17 10:40 - ....Imaging EKG: Other (tele: afib, HRs 80s-110s, several spikes to 120s, rarely 130s.) Assessment/Plan echo 07/2016: Nl lv/rv. 1+ AR mibi 12/2012: small posterior ischemia vs artifact, nl lvef, no tid cxr: incr markings at bases c/w atx vs early infiltrate cxr 08/14: bases much better aerated. chronic interstitial markings persist. a/p: 72 yo male with h/o AFib s/p prior DCCV 12/2015 to SR on AC, HTN, HL, dchf , PVCs with palpitations, morbid obesity, LUCY on bipap, severe COPD, here with sob. a.e. copd: - ? end-stage copd at this point, with ongoing wheezing and sob when bipap is off, despite he has been vigorously diuresed (suspect he is euvolemic at present ). - per pulm acute on chronic diastolic chf: - previous admits, wt up to 340s-350s when decomp chf, with signif incr LE edema - d/c wt 04/26 was 324. and was 315 when left here 07/28, then back up to 327 when back with a.e. copd 07/28. - 07/28 copd admit with marked pedal edema treated with lasix 80 iv bid--d/c wt 314. sent out on lasix 40 po bid. - marked weakness with activity at home, cxr with fluid in fissure, ? effusions on image review--pulmonary team does not suspect a.e. copd or PNA - BNP 180 (prior range 90-300). phys exam prohibitively TDS for volume assessment, and cannot get standing wts until pt moves from ICU to tele bed. - 08/01 no standing weight done here (ordered today). incr lasix from 40 iv bid to 80 iv bid. - 08/02-: bmp stable on increased IV lasix, still with congestion on cxr 08/07. con't current regimen. - 08/08: wt down to 297. lytes stable. pedal edema resolved. CXR 08/07 with persistent diffuse interstitial infiltrates, ? intra-alveolar infiltrates/edema at bases, small L effusion new vs prior. ? ongoing uncontrolled AF rates driving ongoing diast chf (vs vice versa). Incr lasix to 100 iv bid, give one dose metolazone 5mg today. rpt cxr in am--consider CT chest if uncertainty regarding the dx. AF hr control as doing. renal u/s ordered due to complaints of urinary retention - 08/13: developed retention sx's, flomax started. wt continues to progressively decline with lasix 100 IV bid (now 289 lbs). bicarb trending up the past couple of days (40s). suspect volume-contracted at present. - change lasix 100 iv bid to torsemide 100 po qd. - 08/14: wt down 288. cxr today much better aerated, no chf suspected. continue torsemide 100 qd trial. paroxysmal AF/flutter -cont eliquis for AC -new dx 2015--req'd amio for HR control then (now off due to severe lung dz), s/ p successful DCCV 12/24, then reverted to afib -defer AVN ablation/PPM unless future signs of HF being driven by rapid HRs (to date thus far, his AF rates are well-controlled at office, and only rapid sec to acute copd). -avoiding BB given severe bronchospasm/copd; would like to avoid long-term amio for same reason -on outpatient regimen here, verapamil 240 bid, and dig (level good here). monitor tele -rate typically becomes elevated in settings of respiratory distress and often improves with bipap therapy. - 08/02: rapid HR (140s) in setting of nausea/vomiting. Given 150 IV amio. 0.25 digoxin IV x 1. Given a total of 25 mg of IV dilt and started on diltiazem drip. -08/04-08/07: hr overall controlled. cont dig and verapamil. -08/08: HR worsened controlled, ? contributing to ongoing CHF. running out of AVN charles options here. incr dig to 0.25mg qd (daily levels ordered). aggressive diuresis attempt to continue until pt clearly dry--if remains uncontrolled HR at that time will have to refer to EP to consider AVN ablation/ PM (pt advised of this possibility today) -08/09-2: HR improved, meds unchanged -08/13: HR 80s-100s, spikes to 120s often. HR control remains suboptimal presuming this is driving his diast CHF (not certain here). will cautiously add low dose B-selective B-charles (metoprolol 25mg qd) while pt in hospital and can be monitored (this dose of metopr very unlikely to worsen bronchospasm). cont verap 240 bid, dig 0.25 (levels good). -2/4: HR usually reasonable, occasional spikes to 120s, rarely 130s. -at this point, i suspect his tachycardia is being driven by end-stage copd with ongoing sx's. i do not believe he is volume overloaded any longer. -will continue same meds as doing. -if HR remains mostly <120 with activity, will plan to continue this regimen and reassess HR as outpt, and defer AVN ablation/PPM unless evidence of recurrent chf triggered by rapid Afib rates. hld: -continue home statin htn: -stable -same meds possible cad: -pt had borderline positive mibi in 2012 vs soft tissue attenuation artifact -never had angina sx's -ECG nonsp ST-T no signif change vs prior. trop neg x2. no anginal sx's -continue medical management with statin, AC without ASA
[2017-08-14] MEDS: ALBUTEROL SO4 2.5/IPRATROPIUM 0.5 INH SOL 3 ML VIAL.NEB. NEB SCH ×4 (08:30→20:00)
[2017-08-14] MEDS: DIGOXIN 0.25 MG TABLET (FP) PO SCH (10:02)
[2017-08-14] MEDS: APIXABAN 5 MG TABLET PO SCH ×2 (10:03→21:42)
[2017-08-14] MEDS: metoPROLOL SUCCINATE 25 MG TAB.SR.24H (FP) PO SCH (10:03)
[2017-08-14] MEDS: predniSONE 20 MG TABLET (UD) PO SCH ×2 (10:03→21:42)
[2017-08-14] MEDS: TAMSULOSIN HCL 0.4 MG CAP.ER.24H (FP) PO SCH (10:03)
[2017-08-14] MEDS: VERAPAMIL HCL 240 MG E.R. TABLET (FP) PO SCH ×2 (10:03→21:42)
[2017-08-14] MEDS: TORSEMIDE 100 MG TABLET PO SCH (10:03)
[2017-08-14] MEDS: LORATADINE 10 MG TABLET PO SCH (10:03)
[2017-08-14] MEDS: FINASTERIDE 5 MG TABLET (FP) PO SCH (10:03)
[2017-08-14] MEDS: CLOTRIMAZOLE/BETAMET DIPROP 15 GM TUBE TP SCH ×2 (10:05→21:42)
[2017-08-14] MEDS: FLUTICASONE PROP 0.05% 16 GM NASAL SPRAY NS SCH (10:05)
[2017-08-14] MEDS: FAMOTIDINE 20 MG/50 ML IVPB 20 MG/50 ML MG IVPB SCH ×2 (10:05→21:43)
[2017-08-14] MEDS: BUDESONIDE/FORMETEROL FUMARATE 160/4.5 mcg INHALER IH SCH ×2 (10:05→21:43)
--- NOTE | 2017-08-14 12:41 | PN ---
Progress Note (short form) - Note Progress Note: PULMONARY Breathing better today. Still on/off BiPAP. Good urine output with torsemide and villareal in place. Last Vital Signs Temp Pulse Resp BP Pulse Ox 98.1 F 80 20 132/76 91 L 08/14/17 10:00 08/14/17 10:02 08/14/17 10:00 08/14/17 10:00 08/14/17 09:44 Intake & Output 08/11/17 08/12/17 08/13/17 08/14/17 23:59 23:59 23:59 23:59 Intake Total 120 270 360 Output Total 3800 2800 2400 400 Balance -3800 -2680 -2130 -40 Weight 132.177 kg 131.088 kg 130.997 kg Gen: less tachypneic with speaking Heart: RRR Lung: scattered rhonchi R>L Abd: soft, nontender Ext: decreased edema CBC, BMP 08/12/17 06:05 08/13/17 07:45 Active Medications Acetaminophen (Tylenol -) 650 mg PO Q6H PRN PRN Reason: BACK PAIN Albuterol/Ipratropium (Duoneb -) 1 amp NEB RQID [facility] Last Admin: 08/14/17 12:02 Dose: 1 amp Apixaban (Eliquis -) 5 mg PO BID [facility] Last Admin: 08/14/17 10:03 Dose: 5 mg Atorvastatin Calcium (Lipitor -) 40 mg PO HS [facility] Last Admin: 08/13/17 22:00 Dose: 40 mg Budesonide/Formoterol Fumarate (Symbicort 160/4.5mcg -) 2 puff IH BID [facility] Last Admin: 08/14/17 10:05 Dose: 2 puff Clotrimazole (Lotrisone Cream (Small Tube)) 1 applic TP BID [facility] Last Admin: 08/14/17 10:05 Dose: 1 applic Digoxin (Lanoxin -) 0.25 mg PO DAILY [facility] Last Admin: 08/14/17 10:02 Dose: 0.25 mg Finasteride (Proscar -) 5 mg PO DAILY [facility] Last Admin: 08/14/17 10:03 Dose: 5 mg Fluticasone Propionate (Flonase -) 2 spray NS DAILY [facility] Last Admin: 08/14/17 10:05 Dose: 2 spray Gabapentin (Neurontin -) 300 mg PO TID [facility] Last Admin: 08/14/17 06:47 Dose: 300 mg Famotidine/Sodium Chloride (Pepcid 20 Mg Premixed Ivpb -) 20 mg in 50 mls @ 100 mls/hr IVPB BID [facility] Last Admin: 08/14/17 10:05 Dose: 100 mls/hr Insulin Aspart (Novolog Vial Sliding Scale -) 1 vial SQ ACHS [facility] PRN Reason: Protocol Last Admin: 08/14/17 11:30 Dose: Not Given Insulin Detemir (Levemir Vial) 40 units SQ BID@0700,2200 [facility] Last Admin: 08/14/17 06:44 Dose: 40 unit Lidocaine/Aluminum/Magnesium/Simeth (Magic Mouthwash *Sjr Formula* -) 5 ml MM Q6HPO [facility] Last Admin: 08/14/17 11:32 Dose: 5 ml Loratadine (Claritin -) 10 mg PO DAILY [facility] Last Admin: 08/14/17 10:03 Dose: 10 mg Metoprolol Succinate (Toprol Xl -) 25 mg PO DAILY [facility] Last Admin: 08/14/17 10:03 Dose: 25 mg Prednisone (Deltasone -) 30 mg PO BID [facility] Last Admin: 08/14/17 10:03 Dose: 30 mg Sodium Chloride ([place] Nasal [place] -) 2 spray NS BID PRN PRN Reason: NASAL CONGESTION Tamsulosin HCl (Flomax -) 0.8 mg PO DAILY@0830 [facility] Last Admin: 08/14/17 10:03 Dose: 0.8 mg Torsemide (Demadex -) 100 mg PO DAILY [facility] Last Admin: 08/14/17 10:03 Dose: 100 mg Verapamil HCl (Calan Sr -) 240 mg PO BID [facility] Last Admin: 08/14/17 10:03 Dose: 240 mg A/P Atrial Fibrillation with RVR Acute on Chronic Diastolic Heart Failure Acute COPD Exacerbation Acute on Chronic Hypoxic and Hypercapneic Respiratory Failure HTN Hypercholesterolemia Morbid Obesity LUCY - titrate rate control - continue torsemide - monitor urine output, creatinine - daily weights, I/Os - continue anticoagulation - prednisone taper - inhaled bronchodilators - O2 to keep Spo2 >88% - BiPAP at night and PRN during day - magic mouthwash for oral ulcers
--- NOTE | 2017-08-14 13:35 | PN ---
Progress Note, Physician Chief Complaint: AWAKE SITTING UP OFF BIPAP ON 02NC STILL SOB WITH COUGH C/O MUSCLE WEAKNESS - Current Medication List Current Medications: Active Medications Acetaminophen (Tylenol -) 650 mg PO Q6H PRN PRN Reason: BACK PAIN Albuterol/Ipratropium (Duoneb -) 1 amp NEB RQID [facility] Last Admin: 08/14/17 12:02 Dose: 1 amp Apixaban (Eliquis -) 5 mg PO BID [facility] Last Admin: 08/14/17 10:03 Dose: 5 mg Atorvastatin Calcium (Lipitor -) 40 mg PO HS [facility] Last Admin: 08/13/17 22:00 Dose: 40 mg Budesonide/Formoterol Fumarate (Symbicort 160/4.5mcg -) 2 puff IH BID [facility] Last Admin: 08/14/17 10:05 Dose: 2 puff Clotrimazole (Lotrisone Cream (Small Tube)) 1 applic TP BID [facility] Last Admin: 08/14/17 10:05 Dose: 1 applic Digoxin (Lanoxin -) 0.25 mg PO DAILY [facility] Last Admin: 08/14/17 10:02 Dose: 0.25 mg Finasteride (Proscar -) 5 mg PO DAILY [facility] Last Admin: 08/14/17 10:03 Dose: 5 mg Fluticasone Propionate (Flonase -) 2 spray NS DAILY [facility] Last Admin: 08/14/17 10:05 Dose: 2 spray Gabapentin (Neurontin -) 300 mg PO TID [facility] Last Admin: 08/14/17 06:47 Dose: 300 mg Famotidine/Sodium Chloride (Pepcid 20 Mg Premixed Ivpb -) 20 mg in 50 mls @ 100 mls/hr IVPB BID [facility] Last Admin: 08/14/17 10:05 Dose: 100 mls/hr Insulin Aspart (Novolog Vial Sliding Scale -) 1 vial SQ ACHS [facility] PRN Reason: Protocol Last Admin: 08/14/17 11:30 Dose: Not Given Insulin Detemir (Levemir Vial) 40 units SQ BID@0700,2200 [facility] Last Admin: 08/14/17 06:44 Dose: 40 unit Lidocaine/Aluminum/Magnesium/Simeth (Magic Mouthwash *Sjr Formula* -) 5 ml MM Q6HPO [facility] Last Admin: 08/14/17 11:32 Dose: 5 ml Loratadine (Claritin -) 10 mg PO DAILY [facility] Last Admin: 08/14/17 10:03 Dose: 10 mg Metoprolol Succinate (Toprol Xl -) 25 mg PO DAILY [facility] Last Admin: 08/14/17 10:03 Dose: 25 mg Prednisone (Deltasone -) 30 mg PO BID [facility] Last Admin: 08/14/17 10:03 Dose: 30 mg Sodium Chloride ([place] Nasal [place] -) 2 spray NS BID PRN PRN Reason: NASAL CONGESTION Tamsulosin HCl (Flomax -) 0.8 mg PO DAILY@0830 [facility] Last Admin: 08/14/17 10:03 Dose: 0.8 mg Torsemide (Demadex -) 100 mg PO DAILY [facility] Last Admin: 08/14/17 10:03 Dose: 100 mg Verapamil HCl (Calan Sr -) 240 mg PO BID [facility] Last Admin: 08/14/17 10:03 Dose: 240 mg - Objective Vital Signs: Vital Signs Temperature 98.1 F 08/14/17 10:00 Pulse Rate 80 08/14/17 10:02 Respiratory Rate 20 08/14/17 10:00 Blood Pressure 132/76 08/14/17 10:00 O2 Sat by Pulse Oximetry (%) 91 L 08/14/17 09:44 Constitutional: Yes: Mild Distress Eyes: Yes: WNL HENT: Yes: WNL Neck: Yes: WNL Cardiovascular: Yes: Pulse Irregular Respiratory: Yes: Cough, Diminished Gastrointestinal: Yes: WNL Genitourinary: Yes: [place] Present Musculoskeletal: Yes: Muscle Weakness Extremities: Yes: WNL Edema: No Peripheral Pulses WNL: Yes Integumentary: Yes: WNL Wound/Incision: Yes: Clean/Dry Neurological: Yes: WNL ...Motor Strength: LLE, RLE Psychiatric: Yes: WNL Labs: CBC, BMP 08/12/17 06:05 08/13/17 07:45 INR, PTT INR 0.98 (0.82-1.09) 07/30/17 10:40 Problem List - Problems (1) Atrial fibrillation Code(s): I48.91 - UNSPECIFIED ATRIAL FIBRILLATION Qualifiers: Atrial fibrillation type: chronic Qualified Code(s): I48.2 - Chronic atrial fibrillation (2) COPD (chronic obstructive pulmonary disease) Code(s): J44.9 - CHRONIC OBSTRUCTIVE PULMONARY DISEASE, UNSPECIFIED Qualifiers: COPD type: unspecified COPD Qualified Code(s): J44.9 - Chronic obstructive pulmonary disease, unspecified (3) Type 2 diabetes mellitus with diabetic neuropathy Code(s): E11.40 - TYPE 2 DIABETES MELLITUS WITH DIABETIC NEUROPATHY, UNSP (4) Acute CHF Code(s): I50.9 - HEART FAILURE, UNSPECIFIED Qualifiers: Congestive heart failure type: systolic Qualified Code(s): I50.21 - Acute systolic (congestive) heart failure (5) Acute bronchitis with COPD Code(s): J44.0 - CHRONIC OBSTRUCTIVE PULMON DISEASE W ACUTE LOWER RESP INFCT Assessment/Plan WILL NEED AGGRESSIVE PT AND PULM. REHAB LONG DISCUSSION ON MEDICAL ADHERENCE/COMPLIANCE PT, DAILY WEIGHTS TO AVOID READMISSIONS TO ER PATIENT LOST OVER 40LBS SINCE THIS ADMISSION ARRYTHMIA CONTROL OOB TO CHAIR TIMOTHY SARAVIA
[2017-08-14] MEDS: CYANOCOBALAMIN (VITAMIN B-12) 1000 MCG/1 ML VIAL IM SCH (14:08)
[2017-08-14] MEDS: AMINO ACIDS/PROTEIN HYDROLYS 30 ML LIQUID.PKT PO SCH (17:26)
[2017-08-14] MEDS: ATORVASTATIN CA 40 MG TABLET (FP) PO SCH (21:42)
[2017-08-15] MEDS: MAG HYDROX/ALH/SMC/DPHA/LIDO 240 ML MOUTHWASH MM SCH ×3 (05:25→17:43)
[2017-08-15] MEDS: GABAPENTIN 300 MG CAPSULE (FP) PO SCH ×3 (05:25→21:28)
[2017-08-15 06:37] LABS: HEMATOCRIT 40.6 % (35.4-49); HEMOGLOBIN 12.9 GM/dL (11.7-16.9); MCHC 31.9 g/dl (32.0-35.9); MEAN CELL VOLUME 84.7 fl (80-96); MEAN PLT VOLUME 8.9 fl (7.5-11.1); PLATELET COUNT 266 K/MM3 (134-434); WHITE BLOOD COUNT 16.1 K/mm3 (4.0-10.0)
[2017-08-15] MEDS: INSULIN SLIDING SCALE (NOVOLOG) 1 VIAL SQ SCH ×4 (06:46→21:29)
[2017-08-15] MEDS: INSULIN DETEMIR 100 UNITS/ML MDV SQ SCH ×2 (06:46→21:28)
[2017-08-15 06:54] LABS: ANION GAP 6 (8-16); BLOOD UREA NITROGEN 36 mg/dL (7-18); CALCIUM 8.7 mg/dL (8.5-10.1); CHLORIDE 95 mmol/L (98-107); CO2 38 mmol/L (21-32); GLUCOSE,RANDOM 227 mg/dL (74-106); POTASSIUM 3.8 mmol/L (3.5-5.1); SODIUM 139 mmol/L (136-145)
[2017-08-15] MEDS: CLOTRIMAZOLE/BETAMET DIPROP 15 GM TUBE TP SCH ×3 (07:30→21:29)
[2017-08-15] MEDS: AMINO ACIDS/PROTEIN HYDROLYS 30 ML LIQUID.PKT PO SCH ×2 (08:44→17:43)
[2017-08-15] MEDS: TAMSULOSIN HCL 0.4 MG CAP.ER.24H (FP) PO SCH (08:44)
[2017-08-15] MEDS: predniSONE 20 MG TABLET (UD) PO SCH ×2 (09:44→21:28)
[2017-08-15] MEDS: APIXABAN 5 MG TABLET PO SCH ×2 (09:44→21:28)
[2017-08-15] MEDS: FINASTERIDE 5 MG TABLET (FP) PO SCH (09:45)
[2017-08-15] MEDS: metoPROLOL SUCCINATE 25 MG TAB.SR.24H (FP) PO SCH (09:45)
[2017-08-15] MEDS: LORATADINE 10 MG TABLET PO SCH (09:45)
[2017-08-15] MEDS: VERAPAMIL HCL 240 MG E.R. TABLET (FP) PO SCH ×2 (09:47→21:28)
[2017-08-15] MEDS: TORSEMIDE 100 MG TABLET PO SCH (09:47)
[2017-08-15] MEDS: DIGOXIN 0.25 MG TABLET (FP) PO SCH (09:49)
[2017-08-15] MEDS: FLUTICASONE PROP 0.05% 16 GM NASAL SPRAY NS SCH (09:49)
[2017-08-15] MEDS: CYANOCOBALAMIN (VITAMIN B-12) 1000 MCG/1 ML VIAL IM SCH (09:50)
[2017-08-15] MEDS: FAMOTIDINE 20 MG/50 ML IVPB 20 MG/50 ML MG IVPB SCH ×2 (09:50→21:28)
[2017-08-15] MEDS: BUDESONIDE/FORMETEROL FUMARATE 160/4.5 mcg INHALER IH SCH ×2 (09:50→21:29)
--- NOTE | 2017-08-15 10:27 | PN ---
Progress Note, Physician Chief Complaint: patient feeling tired on bipap breathign better less extremtiy edema villareal in place - Current Medication List Current Medications: Active Medications Acetaminophen (Tylenol -) 650 mg PO Q6H PRN PRN Reason: BACK PAIN Amino Acids (Prosource No Carb Liquid Pkt) 30 ml PO BID@0800,1730 [facility] Last Admin: 08/15/17 08:44 Dose: 30 ml Apixaban (Eliquis -) 5 mg PO BID [facility] Last Admin: 08/15/17 09:44 Dose: 5 mg Atorvastatin Calcium (Lipitor -) 40 mg PO HS [facility] Last Admin: 08/14/17 21:42 Dose: 40 mg Budesonide/Formoterol Fumarate (Symbicort 160/4.5mcg -) 2 puff IH BID [facility] Last Admin: 08/15/17 09:50 Dose: 2 puff Clotrimazole (Lotrisone Cream (Small Tube)) 1 applic TP BID [facility] Last Admin: 08/15/17 09:49 Dose: 1 applic Cyanocobalamin (Vitamin B12 Injection -) 1,000 mcg IM DAILY [facility] Last Admin: 08/15/17 09:50 Dose: 1,000 mcg Digoxin (Lanoxin -) 0.25 mg PO DAILY [facility] Last Admin: 08/15/17 09:49 Dose: 0.25 mg Finasteride (Proscar -) 5 mg PO DAILY [facility] Last Admin: 08/15/17 09:45 Dose: 5 mg Fluticasone Propionate (Flonase -) 2 spray NS DAILY [facility] Last Admin: 08/15/17 09:49 Dose: 2 sprays Gabapentin (Neurontin -) 300 mg PO TID [facility] Last Admin: 08/15/17 05:25 Dose: 300 mg Famotidine/Sodium Chloride (Pepcid 20 Mg Premixed Ivpb -) 20 mg in 50 mls @ 100 mls/hr IVPB BID [facility] Last Admin: 08/15/17 09:50 Dose: 100 mls/hr Insulin Aspart (Novolog Vial Sliding Scale -) 1 vial SQ ACHS [facility] PRN Reason: Protocol Last Admin: 08/15/17 06:46 Dose: 6 units Insulin Detemir (Levemir Vial) 40 units SQ BID@0700,2200 [facility] Last Admin: 08/15/17 06:46 Dose: 40 unit Lidocaine/Aluminum/Magnesium/Simeth (Magic Mouthwash *Sjr Formula* -) 5 ml MM Q6HPO [facility] Last Admin: 08/15/17 05:25 Dose: 5 ml Loratadine (Claritin -) 10 mg PO DAILY [facility] Last Admin: 08/15/17 09:45 Dose: 10 mg Metoprolol Succinate (Toprol Xl -) 25 mg PO DAILY [facility] Last Admin: 08/15/17 09:45 Dose: 25 mg Prednisone (Deltasone -) 30 mg PO BID [facility] Last Admin: 08/15/17 09:44 Dose: 30 mg Sodium Chloride ([place] Nasal [place] -) 2 spray NS BID PRN PRN Reason: NASAL CONGESTION Tamsulosin HCl (Flomax -) 0.8 mg PO DAILY@0830 [facility] Last Admin: 08/15/17 08:44 Dose: 0.8 mg Torsemide (Demadex -) 100 mg PO DAILY [facility] Last Admin: 08/15/17 09:47 Dose: 100 mg Verapamil HCl (Calan Sr -) 240 mg PO BID [facility] Last Admin: 08/15/17 09:47 Dose: 240 mg - Objective Vital Signs: Vital Signs Temperature 97.4 F L 08/15/17 06:00 Pulse Rate 89 08/15/17 09:49 Respiratory Rate 20 08/15/17 06:00 Blood Pressure 121/63 08/15/17 06:00 O2 Sat by Pulse Oximetry (%) 93 L 08/14/17 21:08 Constitutional: Yes: Calm Cardiovascular: Yes: Regular Rate and Rhythm, S1, S2 Respiratory: Yes: On BiPap Gastrointestinal: Yes: Normal Bowel Sounds, Soft Genitourinary: Yes: Villareal Present Edema: Yes (minimal edema) Neurological: Yes: Alert, Oriented Labs: CBC, BMP 08/15/17 05:35 08/15/17 05:35 INR, PTT INR 0.98 (0.82-1.09) 07/30/17 10:40 Problem List - Problems (1) Acute CHF Assessment/Plan: acute on chronic CHF on torsemide leg edema is decreasing renal function is ok weight from 295 on 08/10 to 291 on 08/11 now weight is [address] Code(s): I50.9 - HEART FAILURE, UNSPECIFIED Qualifiers: Congestive heart failure type: systolic Qualified Code(s): I50.21 - Acute systolic (congestive) heart failure (2) Atrial fibrillation Assessment/Plan: eliquis BID dig and verampamil on cardizem po Code(s): I48.91 - UNSPECIFIED ATRIAL FIBRILLATION Qualifiers: Atrial fibrillation type: chronic Qualified Code(s): I48.2 - Chronic atrial fibrillation (3) COPD (chronic obstructive pulmonary disease) Assessment/Plan: prednsione taper to 30mg po bid will decrease to 20mg bid leukocytosis secondary to steroids bronchodilators bipap at night oxygen via [place] Code(s): J44.9 - CHRONIC OBSTRUCTIVE PULMONARY DISEASE, UNSPECIFIED Qualifiers: COPD type: unspecified COPD Qualified Code(s): J44.9 - Chronic obstructive pulmonary disease, unspecified (4) Diabetes mellitus Assessment/Plan: bgm [id number] noted metformin and januvia -stopped levemir prednisone taper Code(s): E11.9 - TYPE 2 DIABETES MELLITUS WITHOUT COMPLICATIONS Qualifiers: Diabetes mellitus type: type 2
--- NOTE | 2017-08-15 11:49 | PN ---
Progress Note, Physician Chief Complaint: sob History of Present Illness: sob is same. requires bipap much of the day. no cp, palpitations, leg swelling legs weak and shaky when tries to get oob ex cigs - Current Medication List Current Medications: Active Medications Acetaminophen (Tylenol -) 650 mg PO Q6H PRN PRN Reason: BACK PAIN Amino Acids (Prosource No Carb Liquid Pkt) 30 ml PO BID@0800,1730 [facility] Last Admin: 08/15/17 08:44 Dose: 30 ml Apixaban (Eliquis -) 5 mg PO BID [facility] Last Admin: 08/15/17 09:44 Dose: 5 mg Atorvastatin Calcium (Lipitor -) 40 mg PO HS [facility] Last Admin: 08/14/17 21:42 Dose: 40 mg Budesonide/Formoterol Fumarate (Symbicort 160/4.5mcg -) 2 puff IH BID [facility] Last Admin: 08/15/17 09:50 Dose: 2 puff Clotrimazole (Lotrisone Cream (Small Tube)) 1 applic TP BID [facility] Last Admin: 08/15/17 09:49 Dose: 1 applic Cyanocobalamin (Vitamin B12 Injection -) 1,000 mcg IM DAILY [facility] Last Admin: 08/15/17 09:50 Dose: 1,000 mcg Digoxin (Lanoxin -) 0.25 mg PO DAILY [facility] Last Admin: 08/15/17 09:49 Dose: 0.25 mg Finasteride (Proscar -) 5 mg PO DAILY [facility] Last Admin: 08/15/17 09:45 Dose: 5 mg Fluticasone Propionate (Flonase -) 2 spray NS DAILY [facility] Last Admin: 08/15/17 09:49 Dose: 2 sprays Gabapentin (Neurontin -) 300 mg PO TID [facility] Last Admin: 08/15/17 05:25 Dose: 300 mg Famotidine/Sodium Chloride (Pepcid 20 Mg Premixed Ivpb -) 20 mg in 50 mls @ 100 mls/hr IVPB BID [facility] Last Admin: 08/15/17 09:50 Dose: 100 mls/hr Insulin Aspart (Novolog Vial Sliding Scale -) 1 vial SQ ACHS [facility] PRN Reason: Protocol Last Admin: 08/15/17 11:32 Dose: Not Given Insulin Detemir (Levemir Vial) 40 units SQ BID@0700,2200 [facility] Last Admin: 08/15/17 06:46 Dose: 40 unit Lidocaine/Aluminum/Magnesium/Simeth (Magic Mouthwash *Sjr Formula* -) 5 ml MM Q6HPO [facility] Last Admin: 08/15/17 05:25 Dose: 5 ml Loratadine (Claritin -) 10 mg PO DAILY [facility] Last Admin: 08/15/17 09:45 Dose: 10 mg Metoprolol Succinate (Toprol Xl -) 25 mg PO DAILY [facility] Last Admin: 08/15/17 09:45 Dose: 25 mg Prednisone (Deltasone -) 20 mg PO BID [facility] Sodium Chloride ([place] Nasal [place] -) 2 spray NS BID PRN PRN Reason: NASAL CONGESTION Tamsulosin HCl (Flomax -) 0.8 mg PO DAILY@0830 [facility] Last Admin: 08/15/17 08:44 Dose: 0.8 mg Torsemide (Demadex -) 100 mg PO DAILY [facility] Last Admin: 08/15/17 09:47 Dose: 100 mg Verapamil HCl (Calan Sr -) 240 mg PO BID [facility] Last Admin: 08/15/17 09:47 Dose: 240 mg - Objective Vital Signs: Vital Signs Temperature 97.4 F L 08/15/17 06:00 Pulse Rate 89 08/15/17 09:49 Respiratory Rate 20 08/15/17 06:00 Blood Pressure 121/63 08/15/17 06:00 O2 Sat by Pulse Oximetry (%) 93 L 08/14/17 21:08 Constitutional: Yes: No Distress, Calm, Obese Eyes: No: Sclera Icterus HENT: No: Nasal Congestion Cardiovascular: Yes: Pulse Irregular, S1, S2, Other (PMI non diplaced). No: JVD (tds habitus), Gallop, Murmur Respiratory: Yes: CTA Bilaterally, Wheezes (faint). No: Accessory Muscle Use, Rales Gastrointestinal: Yes: Normal Bowel Sounds, Soft. No: Tenderness Musculoskeletal: Yes: Other (No kyphosis) Extremities: No: Cold Edema: No Integumentary: No: Jaundice Neurological: Yes: Alert, Oriented (x3) Psychiatric: No: Agitated Labs: CBC, BMP 08/15/17 05:35 08/15/17 05:35 INR, PTT INR 0.98 (0.82-1.09) 07/30/17 10:40 - ....Imaging EKG: Other (tele: afib mostly 90s-100s, occasional spikes to 120s. 9 beats run WCT c/w NSVT vs AF with aberrancy) Assessment/Plan echo 07/2016: Nl lv/rv. 1+ AR mibi 12/2012: small posterior ischemia vs artifact, nl lvef, no tid cxr: incr markings at bases c/w atx vs early infiltrate cxr 08/14: bases much better aerated. chronic interstitial markings persist. a/p: 72 yo male with h/o AFib s/p prior DCCV 12/2015 to SR on AC, HTN, HL, dchf , PVCs with palpitations, morbid obesity, LUCY on bipap, severe COPD, here with sob. a.e. copd: - ? end-stage copd at this point, with ongoing wheezing and sob when bipap is off, despite he has been vigorously diuresed (suspect he is euvolemic at present ). - per pulm acute on chronic diastolic chf: - previous admits, wt up to 340s-350s when decomp chf, with signif incr LE edema - d/c wt 04/26 was 324. and was 315 when left here 07/28, then back up to 327 when back with a.e. copd 07/28. - 07/28 copd admit with marked pedal edema treated with lasix 80 iv bid--d/c wt 314. sent out on lasix 40 po bid. - marked weakness with activity at home, cxr with fluid in fissure, ? effusions on image review--pulmonary team does not suspect a.e. copd or PNA - BNP 180 (prior range 90-300). phys exam prohibitively TDS for volume assessment, and cannot get standing wts until pt moves from ICU to tele bed. - 08/01 no standing weight done here (ordered today). incr lasix from 40 iv bid to 80 iv bid. - 08/02-: bmp stable on increased IV lasix, still with congestion on cxr 08/07. con't current regimen. - 08/08: wt down to 297. lytes stable. pedal edema resolved. CXR 08/07 with persistent diffuse interstitial infiltrates, ? intra-alveolar infiltrates/edema at bases, small L effusion new vs prior. ? ongoing uncontrolled AF rates driving ongoing diast chf (vs vice versa). Incr lasix to 100 iv bid, give one dose metolazone 5mg today. rpt cxr in am--consider CT chest if uncertainty regarding the dx. AF hr control as doing. renal u/s ordered due to complaints of urinary retention - 08/13: developed retention sx's, flomax started. wt continues to progressively decline with lasix 100 IV bid (now 289 lbs). bicarb trending up the past couple of days (40s). suspect volume-contracted at present. - change lasix 100 iv bid to torsemide 100 po qd. - 08/14: wt down 288. cxr today much better aerated, no chf suspected. continue torsemide 100 qd trial. - 08/15: wt down 287, labs stable. cont torsemide 100 qd. paroxysmal AF/flutter -cont eliquis for AC -new dx 2015--req'd amio for HR control then (now off due to severe lung dz), s/ p successful DCCV 12/24, then reverted to afib -defer AVN ablation/PPM unless future signs of HF being driven by rapid HRs (to date thus far, his AF rates are well-controlled at office, and only rapid sec to acute copd). -avoiding BB given severe bronchospasm/copd; would like to avoid long-term amio for same reason -on outpatient regimen here, verapamil 240 bid, and dig (level good here). monitor tele -rate typically becomes elevated in settings of respiratory distress and often improves with bipap therapy. - 08/02: rapid HR (140s) in setting of nausea/vomiting. Given 150 IV amio. 0.25 digoxin IV x 1. Given a total of 25 mg of IV dilt and started on diltiazem drip. -08/04-08/07: hr overall controlled. cont dig and verapamil. -08/08: HR worsened controlled, ? contributing to ongoing CHF. running out of AVN charles options here. incr dig to 0.25mg qd (daily levels ordered). aggressive diuresis attempt to continue until pt clearly dry--if remains uncontrolled HR at that time will have to refer to EP to consider AVN ablation/ PM (pt advised of this possibility today) -08/09-08/12: HR improved, meds unchanged -2: HR 80s-100s, spikes to 120s often. HR control remains suboptimal presuming this is driving his diast CHF (not certain here). will cautiously add low dose B-selective B-charles (metoprolol 25mg qd) while pt in hospital and can be monitored (this dose of metopr very unlikely to worsen bronchospasm). cont verap 240 bid, dig 0.25 (levels good). -08/14-08/15: HR usually reasonable, occasional spikes to 120s, rarely 130s. -at this point, i suspect his tachycardia is being driven by end-stage copd with ongoing sob sx's. i do not believe he is volume overloaded any longer. i do not think we can achieve tighter HR control without use of AVN ablation and permanent pacing. -will continue same meds as doing. if HR remains mostly <110-120 as it has been , will defer AVN ablation/PPM unless evidence of recurrent chf triggered by rapid Afib rates. Vtach: -08/15: 9b run of WCT c/w VT vs aberrantly conducted Afib -K and Mag ok--repletion ordered per usual aggressive targets -LVSF preserved 07/27--rpt study to r/o decr EF (mult rf's including rapid afib) hld: -continue home statin htn: -stable -same meds possible cad: -pt had borderline positive mibi in 2012 vs soft tissue attenuation artifact -never had angina sx's -ECG nonsp ST-T no signif change vs prior. trop neg x2. no anginal sx's -continue medical management with statin, AC without ASA
[2017-08-15] MEDS ORDERED: POTASSIUM CHLORIDE ORAL LIQUID 20 MEQ/15 ML PO ONE (12:00)
--- NOTE | 2017-08-15 12:34 | PN ---
Progress Note, Physician History of Present Illness: PULMONARY ALERT,DYSPNEIC,+COUGH,STILL CONGESTED - Current Medication List Current Medications: Active Medications Acetaminophen (Tylenol -) 650 mg PO Q6H PRN PRN Reason: BACK PAIN Amino Acids (Prosource No Carb Liquid Pkt) 30 ml PO BID@0800,1730 [facility] Last Admin: 08/15/17 08:44 Dose: 30 ml Apixaban (Eliquis -) 5 mg PO BID [facility] Last Admin: 08/15/17 09:44 Dose: 5 mg Atorvastatin Calcium (Lipitor -) 40 mg PO HS [facility] Last Admin: 08/14/17 21:42 Dose: 40 mg Budesonide/Formoterol Fumarate (Symbicort 160/4.5mcg -) 2 puff IH BID [facility] Last Admin: 08/15/17 09:50 Dose: 2 puff Clotrimazole (Lotrisone Cream (Small Tube)) 1 applic TP BID [facility] Last Admin: 08/15/17 09:49 Dose: 1 applic Cyanocobalamin (Vitamin B12 Injection -) 1,000 mcg IM DAILY [facility] Last Admin: 08/15/17 09:50 Dose: 1,000 mcg Digoxin (Lanoxin -) 0.25 mg PO DAILY [facility] Last Admin: 08/15/17 09:49 Dose: 0.25 mg Finasteride (Proscar -) 5 mg PO DAILY [facility] Last Admin: 08/15/17 09:45 Dose: 5 mg Fluticasone Propionate (Flonase -) 2 spray NS DAILY [facility] Last Admin: 08/15/17 09:49 Dose: 2 sprays Gabapentin (Neurontin -) 300 mg PO TID [facility] Last Admin: 08/15/17 05:25 Dose: 300 mg Famotidine/Sodium Chloride (Pepcid 20 Mg Premixed Ivpb -) 20 mg in 50 mls @ 100 mls/hr IVPB BID [facility] Last Admin: 08/15/17 09:50 Dose: 100 mls/hr Insulin Aspart (Novolog Vial Sliding Scale -) 1 vial SQ ACHS [facility] PRN Reason: Protocol Last Admin: 08/15/17 11:32 Dose: Not Given Insulin Detemir (Levemir Vial) 40 units SQ BID@0700,2200 [facility] Last Admin: 08/15/17 06:46 Dose: 40 unit Lidocaine/Aluminum/Magnesium/Simeth (Magic Mouthwash *Sjr Formula* -) 5 ml MM Q6HPO [facility] Last Admin: 08/15/17 12:08 Dose: 5 ml Loratadine (Claritin -) 10 mg PO DAILY [facility] Last Admin: 08/15/17 09:45 Dose: 10 mg Metoprolol Succinate (Toprol Xl -) 25 mg PO DAILY [facility] Last Admin: 08/15/17 09:45 Dose: 25 mg Prednisone (Deltasone -) 20 mg PO BID [facility] Sodium Chloride ([place] Nasal [place] -) 2 spray NS BID PRN PRN Reason: NASAL CONGESTION Tamsulosin HCl (Flomax -) 0.8 mg PO DAILY@0830 [facility] Last Admin: 08/15/17 08:44 Dose: 0.8 mg Torsemide (Demadex -) 100 mg PO DAILY [facility] Last Admin: 08/15/17 09:47 Dose: 100 mg Verapamil HCl (Calan Sr -) 240 mg PO BID [facility] Last Admin: 08/15/17 09:47 Dose: 240 mg - Objective Vital Signs: Vital Signs Temperature 97.4 F L 08/15/17 06:00 Pulse Rate 89 08/15/17 09:49 Respiratory Rate 20 08/15/17 06:00 Blood Pressure 121/63 08/15/17 06:00 O2 Sat by Pulse Oximetry (%) 94 L 08/15/17 11:40 Constitutional: Yes: Calm, Obese Eyes: Yes: WNL HENT: Yes: WNL Neck: Yes: WNL Cardiovascular: Yes: Pulse Irregular, S1, S2 Respiratory: Yes: Wheezes (RENUKA WHEEZES) Gastrointestinal: Yes: Normal Bowel Sounds, Soft Extremities: Yes: WNL Edema: No Labs: CBC, BMP 08/15/17 05:35 08/15/17 05:35 INR, PTT INR 0.98 (0.82-1.09) 07/30/17 10:40 Assessment/Plan ASSESSMENT AND PLAN: Atrial Fibrillation with RVR Acute on Chronic Diastolic Heart Failure Acute COPD Exacerbation Acute on Chronic Hypoxic and Hypercapneic Respiratory Failure HTN Hypercholesterolemia Morbid Obesity LUCY - diuretics - monitor urine output, creatinine - daily weights, I/Os - anticoagulation - prednisone - inhaled bronchodilators - O2 to keep Spo2 >88% - BiPAP at night and PRN during day DR STACK
--- NOTE | 2017-08-15 14:09 | PN ---
Progress Note (short form) - Note Progress Note: seen 07/31 for chf/copd exacerbation now asked to evaluate mouth lesions he is alert he has been on steroids the entire admission developed lip lesions now painful mouth lesions able to eat no pain with swallowing can swallow pills no chest pain no fevers Vital Signs Period Temp Pulse Resp BP Sys/Park Pulse Ox Last 24 Hr 97.4 F-98.9 F 89-110 18-24 109-140/63-83 90-94 mouth-drying lesions on lips, punched out lesions on tongue- front half of tongue, no lesions on cheeks or pharynx ?thrush on tongue cor-rrr lungs decreased bs at bases abd soft,nt ext no edema CBC, BMP 08/15/17 05:35 08/15/17 05:35 Microbiology 07/30/17 13:15 Blood - Peripheral Venous Blood Culture - Final NO GROWTH AFTER 5 DAYS INCUBATION 07/30/17 13:15 Blood - Peripheral Venous Blood Culture - Final NO GROWTH AFTER 5 DAYS INCUBATION 08/01/17 10:00 Nares - Mrsa Screen - Right MRSA Screen - Final S Aureus 08/01/17 10:00 Nares - Mrsa Screen - Left MRSA Screen - Final Mr S Aureus 07/30/17 18:46 Nasopharyngeal Swab Influenza Types A,B Antigen (LUISANA) - Final 07/30/17 18:46 Nasopharyngeal Swab - Final Current Medications Acetaminophen (Tylenol -) 650 mg PO Q6H PRN PRN Reason: BACK PAIN Amino Acids (Prosource No Carb Liquid Pkt) 30 ml PO BID@0800,1730 [facility] Last Admin: 08/15/17 08:44 Dose: 30 ml Apixaban (Eliquis -) 5 mg PO BID [facility] Last Admin: 08/15/17 09:44 Dose: 5 mg Atorvastatin Calcium (Lipitor -) 40 mg PO HS [facility] Last Admin: 08/14/17 21:42 Dose: 40 mg Budesonide/Formoterol Fumarate (Symbicort 160/4.5mcg -) 2 puff IH BID [facility] Last Admin: 08/15/17 09:50 Dose: 2 puff Clotrimazole (Lotrisone Cream (Small Tube)) 1 applic TP BID [facility] Last Admin: 08/15/17 09:49 Dose: 1 applic Cyanocobalamin (Vitamin B12 Injection -) 1,000 mcg IM DAILY [facility] Last Admin: 08/15/17 09:50 Dose: 1,000 mcg Digoxin (Lanoxin -) 0.25 mg PO DAILY [facility] Last Admin: 08/15/17 09:49 Dose: 0.25 mg Finasteride (Proscar -) 5 mg PO DAILY [facility] Last Admin: 08/15/17 09:45 Dose: 5 mg Fluticasone Propionate (Flonase -) 2 spray NS DAILY [facility] Last Admin: 08/15/17 09:49 Dose: 2 sprays Gabapentin (Neurontin -) 300 mg PO TID [facility] Last Admin: 08/15/17 05:25 Dose: 300 mg Famotidine/Sodium Chloride (Pepcid 20 Mg Premixed Ivpb -) 20 mg in 50 mls @ 100 mls/hr IVPB BID [facility] Last Admin: 08/15/17 09:50 Dose: 100 mls/hr Insulin Aspart (Novolog Vial Sliding Scale -) 1 vial SQ ACHS [facility] PRN Reason: Protocol Last Admin: 08/15/17 11:32 Dose: Not Given Insulin Detemir (Levemir Vial) 40 units SQ BID@0700,2200 [facility] Last Admin: 08/15/17 06:46 Dose: 40 unit Lidocaine/Aluminum/Magnesium/Simeth (Magic Mouthwash *Sjr Formula* -) 5 ml MM Q6HPO [facility] Last Admin: 08/15/17 12:08 Dose: 5 ml Loratadine (Claritin -) 10 mg PO DAILY [facility] Last Admin: 08/15/17 09:45 Dose: 10 mg Metoprolol Succinate (Toprol Xl -) 25 mg PO DAILY [facility] Last Admin: 08/15/17 09:45 Dose: 25 mg Nystatin (Nystatin Oral Suspension -) 500,000 units PO Q6HPO [facility] Prednisone (Deltasone -) 20 mg PO BID [facility] Sodium Chloride ([place] Nasal [place] -) 2 spray NS BID PRN PRN Reason: NASAL CONGESTION Tamsulosin HCl (Flomax -) 0.8 mg PO DAILY@0830 [facility] Last Admin: 08/15/17 08:44 Dose: 0.8 mg Torsemide (Demadex -) 100 mg PO DAILY [facility] Last Admin: 08/15/17 09:47 Dose: 100 mg Verapamil HCl (Calan Sr -) 240 mg PO BID [facility] Last Admin: 02/05/18 09:47 Dose: 240 mg a/p 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
[2017-08-15] MEDS: FLUCONAZOLE 100 MG TABLET (UD) PO SCH (15:02)
[2017-08-15] MEDS: valACYclovir HCL 500 MG TABLET (FP) PO SCH ×2 (16:02→21:28)
[2017-08-15] MEDS ORDERED: NYSTATIN 500,000 UNITS/5 ML SUSPENSION PO SCH (18:00)
[2017-08-15] MEDS ORDERED: PT OWN MED DRAWER 7, Y5N ONE ×2 (21:18→23:38)
[2017-08-15] MEDS ORDERED: INSULIN (NOVOLOG) ASPART 100 UNITS/ML 10ML VIAL ONE (21:18)
[2017-08-15] MEDS: ATORVASTATIN CA 40 MG TABLET (FP) PO SCH (21:28)
[2017-08-15] MEDS ORDERED: valACYclovir HCL 1000 MG TABLET PO SCH (22:00)
[2017-08-16] MEDS: MAG HYDROX/ALH/SMC/DPHA/LIDO 240 ML MOUTHWASH MM SCH ×5 (00:38→23:27)
[2017-08-16] MEDS: GABAPENTIN 300 MG CAPSULE (FP) PO SCH ×3 (05:36→22:31)
[2017-08-16] MEDS: INSULIN DETEMIR 100 UNITS/ML MDV SQ SCH ×2 (06:28→22:40)
[2017-08-16] MEDS: INSULIN SLIDING SCALE (NOVOLOG) 1 VIAL SQ SCH ×4 (06:29→22:41)
[2017-08-16 07:37] LABS: ALBUMIN 2.8 g/dl (3.4-5.0); ANION GAP 7 (8-16); BLOOD UREA NITROGEN 36 mg/dL (7-18); CALCIUM 8.9 mg/dL (8.5-10.1); CHLORIDE 95 mmol/L (98-107); CO2 38 mmol/L (21-32); GLUCOSE,RANDOM 137 mg/dL (74-106); POTASSIUM 3.6 mmol/L (3.5-5.1); SODIUM 140 mmol/L (136-145)
[2017-08-16 07:42] LABS: ALK PHOS 104 U/L (45-117); BILIRUBIN,TOTAL 1.2 mg/dL (0.2-1.0); SGOT/AST 15 U/L (15-37); SGPT/ALT 40 U/L (12-78); TOT PROT 6.5 g/dl (6.4-8.2)
[2017-08-16] MEDS ORDERED: PT OWN MED DRAWER 7, Y5N ONE ×3 (08:36→22:25)
[2017-08-16] MEDS: AMINO ACIDS/PROTEIN HYDROLYS 30 ML LIQUID.PKT PO SCH ×2 (08:51→17:19)
[2017-08-16] MEDS: TAMSULOSIN HCL 0.4 MG CAP.ER.24H (FP) PO SCH (08:52)
[2017-08-16] MEDS: valACYclovir HCL 500 MG TABLET (FP) PO SCH ×2 (09:01→22:31)
[2017-08-16] MEDS: CYANOCOBALAMIN (VITAMIN B-12) 1000 MCG/1 ML VIAL IM SCH (09:01)
[2017-08-16] MEDS: FINASTERIDE 5 MG TABLET (FP) PO SCH (09:02)
[2017-08-16] MEDS: FLUCONAZOLE 100 MG TABLET (UD) PO SCH (09:02)
[2017-08-16] MEDS: APIXABAN 5 MG TABLET PO SCH ×2 (09:02→22:31)
[2017-08-16] MEDS: metoPROLOL SUCCINATE 25 MG TAB.SR.24H (FP) PO SCH (09:02)
[2017-08-16] MEDS: LORATADINE 10 MG TABLET PO SCH (09:02)
[2017-08-16] MEDS: FLUTICASONE PROP 0.05% 16 GM NASAL SPRAY NS SCH (09:02)
[2017-08-16] MEDS: predniSONE 20 MG TABLET (UD) PO SCH ×2 (09:02→22:31)
[2017-08-16] MEDS: DIGOXIN 0.25 MG TABLET (FP) PO SCH (09:03)
[2017-08-16] MEDS: BUDESONIDE/FORMETEROL FUMARATE 160/4.5 mcg INHALER IH SCH ×2 (09:03→22:46)
[2017-08-16] MEDS: CLOTRIMAZOLE/BETAMET DIPROP 15 GM TUBE TP SCH ×2 (09:03→22:51)
[2017-08-16] MEDS: TORSEMIDE 100 MG TABLET PO SCH (09:07)
[2017-08-16] MEDS: VERAPAMIL HCL 240 MG E.R. TABLET (FP) PO SCH ×2 (09:07→22:31)
--- NOTE | 2017-08-16 10:52 | PN ---
Progress Note (short form) - Note Progress Note: The patient was seen briefly. he was alert and able to communicate with some slurring of speech (my impression). His receptive language was adequate. No pain was present except for soreness of his oral cavity-his lips were said to be dry. He experiences loss of appetite and weakness of both legs. This makes it difficult for him to ambulate even to the bathroom. His mood is not as depressed as one might expect but he definitely is frustrated as he is not getting better. Anxiety was not evident per his presentation but he most likely is experiencing anxiety as to his prognosis as he does not know what it might be. He appears lonely and was grateful for my visit. He stated his sister was supposed to visit today as well. Dr. Mariee Problem List - Problems (1) Other specified eating disorder Code(s): F50.89 - OTHER SPECIFIED EATING DISORDER
--- NOTE | 2017-08-16 11:51 | PN ---
Progress Note, Physician Chief Complaint: in bed on nasal canula has oral ulcers cannot eat bc it hurts dypneic requiring bipap during the day as well - Current Medication List Current Medications: Active Medications Acetaminophen (Tylenol -) 650 mg PO Q6H PRN PRN Reason: BACK PAIN Albuterol/Ipratropium (Duoneb -) 1 amp NEB Q6H PRN PRN Reason: SHORTNESS OF BREATH Amino Acids (Prosource No Carb Liquid Pkt) 30 ml PO BID@0800,1730 [facility] Last Admin: 08/16/17 08:51 Dose: 30 ml Apixaban (Eliquis -) 5 mg PO BID [facility] Last Admin: 08/16/17 09:02 Dose: 5 mg Atorvastatin Calcium (Lipitor -) 40 mg PO HS [facility] Last Admin: 08/15/17 21:28 Dose: 40 mg Bacitracin (Bacitracin -) 1 applic TP BID [facility] Budesonide/Formoterol Fumarate (Symbicort 160/4.5mcg -) 2 puff IH BID [facility] Last Admin: 08/16/17 09:03 Dose: 2 puff Clotrimazole (Lotrisone Cream (Small Tube)) 1 applic TP BID [facility] Last Admin: 08/16/17 09:03 Dose: Not Given Cyanocobalamin (Vitamin B12 Injection -) 1,000 mcg IM DAILY [facility] Last Admin: 08/16/17 09:01 Dose: 1,000 mcg Digoxin (Lanoxin -) 0.25 mg PO DAILY [facility] Last Admin: 08/16/17 09:03 Dose: 0.25 mg Finasteride (Proscar -) 5 mg PO DAILY [facility] Last Admin: 08/16/17 09:02 Dose: 5 mg Fluconazole (Diflucan -) 100 mg PO DAILY [facility] Last Admin: 08/16/17 09:02 Dose: 100 mg Fluticasone Propionate (Flonase -) 2 spray NS DAILY [facility] Last Admin: 08/16/17 09:02 Dose: 2 sprays Gabapentin (Neurontin -) 300 mg PO TID [facility] Last Admin: 08/16/17 05:36 Dose: 300 mg Insulin Aspart (Novolog Vial Sliding Scale -) 1 vial SQ ACHS [facility] PRN Reason: Protocol Last Admin: 08/16/17 06:29 Dose: Not Given Insulin Detemir (Levemir Vial) 40 units SQ BID@0700,2200 [facility] Last Admin: 08/16/17 06:28 Dose: 40 unit Lidocaine/Aluminum/Magnesium/Simeth (Magic Mouthwash *Sjr Formula* -) 5 ml MM Q6HPO [facility] Last Admin: 08/16/17 05:36 Dose: 5 ml Loratadine (Claritin -) 10 mg PO DAILY [facility] Last Admin: 08/16/17 09:02 Dose: 10 mg Metoprolol Succinate (Toprol Xl -) 25 mg PO DAILY [facility] Last Admin: 08/16/17 09:02 Dose: 25 mg Prednisone (Deltasone -) 20 mg PO BID [facility] Last Admin: 08/16/17 09:02 Dose: 20 mg Sodium Chloride ([place] Nasal [place] -) 2 spray NS BID PRN PRN Reason: NASAL CONGESTION Tamsulosin HCl (Flomax -) 0.8 mg PO DAILY@0830 [facility] Last Admin: 08/16/17 08:52 Dose: 0.8 mg Torsemide (Demadex -) 100 mg PO DAILY [facility] Last Admin: 08/16/17 09:07 Dose: 100 mg Valacyclovir HCl (Valtrex -) 1,000 mg PO BID [facility] Last Admin: 08/16/17 09:01 Dose: 1,000 mg Verapamil HCl (Calan Sr -) 240 mg PO BID [facility] Last Admin: 08/16/17 09:07 Dose: 240 mg - Objective Vital Signs: Vital Signs Temperature 97.9 F 08/16/17 08:47 Pulse Rate 93 H 08/16/17 09:03 Respiratory Rate 20 08/16/17 08:47 Blood Pressure 149/67 08/16/17 08:47 O2 Sat by Pulse Oximetry (%) 95 08/16/17 10:33 Constitutional: Yes: Calm HENT: Yes: Other (ora ulcers) Cardiovascular: Yes: Pulse Irregular, S1, S2 Respiratory: Yes: Diminished, On Nasal O2 Gastrointestinal: Yes: Soft, Hernia (umbilical hernia- reducible non tender on top is open wound- yellowish discharge) Neurological: Yes: Alert, Oriented Labs: CBC, BMP 08/15/17 05:35 08/16/17 05:30 INR, PTT INR 0.98 (0.82-1.09) 07/30/17 10:40 Problem List - Problems (1) Thrush Assessment/Plan: diflucan po Code(s): B37.0 - CANDIDAL STOMATITIS (2) HSV-1 (herpes simplex virus 1) infection Assessment/Plan: on valtrex for mouth ulcers\appreciate ID consult Code(s): B00.9 - HERPESVIRAL INFECTION, UNSPECIFIED (3) Acute CHF Assessment/Plan: acute on chronic CHF- improved on torsemide leg edema improved renal function is ok weight from 295 on 08/10 to 291 on 08/11 now weight is [address] Code(s): I50.9 - HEART FAILURE, UNSPECIFIED Qualifiers: Congestive heart failure type: systolic Qualified Code(s): I50.21 - Acute systolic (congestive) heart failure (4) Atrial fibrillation Assessment/Plan: eliquis BID dig and verampamil on cardizem po Code(s): I48.91 - UNSPECIFIED ATRIAL FIBRILLATION Qualifiers: Atrial fibrillation type: chronic Qualified Code(s): I48.2 - Chronic atrial fibrillation (5) COPD (chronic obstructive pulmonary disease) Assessment/Plan: prednsione will increase back to 30mg po bid as still dyspneic and requiring bipap more during the day oob to chair will need snf placement leukocytosis secondary to steroids bronchodilators bipap at night and during the day as needed oxygen via [place] Code(s): J44.9 - CHRONIC OBSTRUCTIVE PULMONARY DISEASE, UNSPECIFIED Qualifiers: COPD type: unspecified COPD Qualified Code(s): J44.9 - Chronic obstructive pulmonary disease, unspecified (6) Diabetes mellitus Assessment/Plan: bgm [id number] noted metformin and januvia -stopped levemir Code(s): E11.9 - TYPE 2 DIABETES MELLITUS WITHOUT COMPLICATIONS Qualifiers: Diabetes mellitus type: type 2 Assessment/Plan PT- snf placement - possible sansucci OOB to chair increased the prednisone as patient requring bipap during day as well valtrex/diflucan for oral ulcers
--- NOTE | 2017-08-16 12:24 | PN ---
Progress Note (short form) - Note Progress Note: Chief Complaint: sob History of Present Illness: sob slowly improving, adherent to bipap. cough remains. now with + umbilical hernia (no pain). + pain in mouth (thrush/hsv). legs weak and shaky when tries to get oob --> he declined standing weight today. no cp, palpitations, leg swelling. had echo --> reviewed. ex cigs Current Medications Acetaminophen (Tylenol -) 650 mg PO Q6H PRN PRN Reason: BACK PAIN Albuterol/Ipratropium (Duoneb -) 1 amp NEB Q6H PRN PRN Reason: SHORTNESS OF BREATH Amino Acids (Prosource No Carb Liquid Pkt) 30 ml PO BID@0800,1730 [facility] Last Admin: 08/16/17 08:51 Dose: 30 ml Apixaban (Eliquis -) 5 mg PO BID [facility] Last Admin: 08/16/17 09:02 Dose: 5 mg Atorvastatin Calcium (Lipitor -) 40 mg PO HS [facility] Last Admin: 08/15/17 21:28 Dose: 40 mg Bacitracin (Bacitracin -) 1 applic TP BID [facility] Budesonide/Formoterol Fumarate (Symbicort 160/4.5mcg -) 2 puff IH BID [facility] Last Admin: 08/16/17 09:03 Dose: 2 puff Clotrimazole (Lotrisone Cream (Small Tube)) 1 applic TP BID [facility] Last Admin: 08/16/17 09:03 Dose: Not Given Cyanocobalamin (Vitamin B12 Injection -) 1,000 mcg IM DAILY [facility] Last Admin: 08/16/17 09:01 Dose: 1,000 mcg Digoxin (Lanoxin -) 0.25 mg PO DAILY [facility] Last Admin: 08/16/17 09:03 Dose: 0.25 mg Finasteride (Proscar -) 5 mg PO DAILY [facility] Last Admin: 08/16/17 09:02 Dose: 5 mg Fluconazole (Diflucan -) 100 mg PO DAILY [facility] Last Admin: 08/16/17 09:02 Dose: 100 mg Fluticasone Propionate (Flonase -) 2 spray NS DAILY [facility] Last Admin: 08/16/17 09:02 Dose: 2 sprays Gabapentin (Neurontin -) 300 mg PO TID [facility] Last Admin: 08/16/17 05:36 Dose: 300 mg Insulin Aspart (Novolog Vial Sliding Scale -) 1 vial SQ ACHS [facility] PRN Reason: Protocol Last Admin: 08/16/17 12:06 Dose: Not Given Insulin Detemir (Levemir Vial) 40 units SQ BID@0700,2200 [facility] Last Admin: 08/16/17 06:28 Dose: 40 unit Lidocaine/Aluminum/Magnesium/Simeth (Magic Mouthwash *Sjr Formula* -) 5 ml MM Q6HPO [facility] Last Admin: 08/16/17 05:36 Dose: 5 ml Loratadine (Claritin -) 10 mg PO DAILY [facility] Last Admin: 08/16/17 09:02 Dose: 10 mg Metoprolol Succinate (Toprol Xl -) 25 mg PO DAILY [facility] Last Admin: 08/16/17 09:02 Dose: 25 mg Prednisone (Deltasone -) 30 mg PO BID [facility] Ranitidine HCl (Zantac -) 150 mg PO DAILY [facility] Sodium Chloride ([place] Nasal [place] -) 2 spray NS BID PRN PRN Reason: NASAL CONGESTION Tamsulosin HCl (Flomax -) 0.8 mg PO DAILY@0830 [facility] Last Admin: 08/16/17 08:52 Dose: 0.8 mg Torsemide (Demadex -) 100 mg PO DAILY [facility] Last Admin: 08/16/17 09:07 Dose: 100 mg Valacyclovir HCl (Valtrex -) 1,000 mg PO BID [facility] Last Admin: 08/16/17 09:01 Dose: 1,000 mg Verapamil HCl (Calan Sr -) 240 mg PO BID [facility] Last Admin: 08/16/17 09:07 Dose: 240 mg - Objective Vital Signs: Vital Signs - 24 hr 08/15/17 08/15/17 08/15/17 14:00 14:25 18:03 Temperature 98.4 F 97.7 F Pulse Rate 114 H 97 H Respiratory 20 18 Rate Blood Pressure 110/69 137/77 O2 Sat by Pulse 93 L Oximetry (%) 08/15/17 08/16/17 08/16/17 21:00 02:00 06:00 Temperature 97.3 F L 97.7 F 98.0 F Pulse Rate 104 H 106 H 96 H Respiratory 17 18 18 Rate Blood Pressure 137/68 128/74 128/54 O2 Sat by Pulse 93 L 95 Oximetry (%) 08/16/17 08/16/17 08/16/17 08:47 09:03 10:33 Temperature 97.9 F Pulse Rate 93 H 93 H Respiratory 20 Rate Blood Pressure 149/67 O2 Sat by Pulse 95 Oximetry (%) Intake & Output 08/14/17 08/15/17 08/16/17 08/17/17 07:59 07:59 07:59 07:59 Intake Total 270 740 370 350 Output Total 2200 2900 2400 Balance -193 -2159 -2029 350 Weight 288 lb 12.8 oz 287 lb Constitutional: Yes: conversational dyspnea. bipapd on. Calm, Obese Eyes: No: Sclera Icterus HENT: No: Nasal Congestion Cardiovascular: Yes: Pulse Irregular, tachycardic S1, S2, Other (PMI non diplaced). No: JVD (++ tds habitus), Gallop, Murmur Respiratory: Yes: diffuse Wheezes. No: Accessory Muscle Use Gastrointestinal: Yes: Normal Bowel Sounds, Soft. No: Tenderness Musculoskeletal: Yes: Other (No kyphosis) Extremities: No: Cold Edema: No Integumentary: No: Jaundice Neurological: Yes: Alert, Oriented (x3) Psychiatric: No: Agitated Labs: CBC, BMP 08/15/17 05:35 08/16/17 05:30 Laboratory Tests 08/13/17 08/16/17 06:45 05:30 Total Bilirubin 1.2 H D AST 15 ALT 40 Alkaline Phosphatase 104 D Digoxin 1.2365 - ....Imaging EKG: Other (tele: afib mostly 90s-100s, this morning trended up into the 110's when off bipap to eat.) echo 07/2017: tds: probable normal LV fn. RV not well seen. atria not weel seen. Valves not weel seen. echo 07/2016: Nl lv/rv. 1+ AR mibi 12/2012: small posterior ischemia vs artifact, nl lvef, no tid cxr: incr markings at bases c/w atx vs early infiltrate cxr 08/14: bases much better aerated. chronic interstitial markings persist. Assessment/Plan 72 yo male with h/o AFib s/p prior DCCV 12/2015 to on AC, HTN, HL, dchf, PVCs with palpitations, morbid obesity, LUCY on bipap, severe COPD, here with sob. a.e. copd: - ? end-stage copd at this point, with ongoing wheezing and sob when bipap is off, despite he has been vigorously diuresed (suspect he is euvolemic at present ). - per pulm, ongoing steroid taper. acute on chronic diastolic chf: - previous admits, wt up to 340s-350s when decomp chf, with signif incr LE edema - d/c wt 04/26 was 324. and was 315 when left here 07/28, then back up to 327 when back with a.e. copd 07/28. - 07/28 copd admit with marked pedal edema treated with lasix 80 iv bid--d/c wt 314. sent out on lasix 40 po bid. - marked weakness with activity at home, cxr with fluid in fissure, ? effusions on image review--pulmonary team does not suspect a.e. copd or PNA - BNP 180 (prior range 90-300). phys exam prohibitively TDS for volume assessment, and cannot get standing wts until pt moves from ICU to tele bed. - 08/01 no standing weight done here (ordered today). incr lasix from 40 iv bid to 80 iv bid. - 08/02-: bmp stable on increased IV lasix, still with congestion on cxr 08/07. con't current regimen. - 08/08: wt down to 297. lytes stable. pedal edema resolved. CXR 08/07 with persistent diffuse interstitial infiltrates, ? intra-alveolar infiltrates/edema at bases, small L effusion new vs prior. ? ongoing uncontrolled AF rates driving ongoing diast chf (vs vice versa). Incr lasix to 100 iv bid, give one dose metolazone 5mg today. rpt cxr in am--consider CT chest if uncertainty regarding the dx. AF hr control as doing. renal u/s ordered due to complaints of urinary retention - 2: developed retention sx's, flomax started. wt continues to progressively decline with lasix 100 IV bid (now 289 lbs). bicarb trending up the past couple of days (40s). suspect volume-contracted at present. - change lasix 100 iv bid to torsemide 100 po qd. - 08/14: wt down 288. cxr today much better aerated, no chf suspected. continue torsemide 100 qd trial. - 08/15-08/16: wt down 287, labs stable. cont torsemide 100 qd. paroxysmal AF/flutter -cont eliquis for AC -new dx 2015--req'd amio for HR control then (now off due to severe lung dz), s/ p successful DCCV 12/24, then reverted to afib -defer AVN ablation/PPM unless future signs of HF being driven by rapid HRs (to date thus far, his AF rates are well-controlled at office, and only rapid sec to acute copd). -avoiding BB given severe bronchospasm/copd; would like to avoid long-term amio for same reason -on outpatient regimen here, verapamil 240 bid, and dig (level good here). monitor tele -rate typically becomes elevated in settings of respiratory distress and often improves with bipap therapy. - 08/02: rapid HR (140s) in setting of nausea/vomiting. Given 150 IV amio. 0.25 digoxin IV x 1. Given a total of 25 mg of IV dilt and started on diltiazem drip. -08/04-08/07: hr overall controlled. cont dig and verapamil. -08/08: HR worsened controlled, ? contributing to ongoing CHF. running out of AVN charles options here. incr dig to 0.25mg qd (daily levels ordered). aggressive diuresis attempt to continue until pt clearly dry--if remains uncontrolled HR at that time will have to refer to EP to consider AVN ablation/ PM (pt advised of this possibility today) -08/09-08/12: HR improved, meds unchanged -08/13: HR 80s-100s, spikes to 120s often. HR control remains suboptimal presuming this is driving his diast CHF (not certain here). will cautiously add low dose B-selective B-charles (metoprolol 25mg qd) while pt in hospital and can be monitored (this dose of metopr very unlikely to worsen bronchospasm). cont verap 240 bid, dig 0.25 (levels good). -08/14-08/15: HR usually reasonable, occasional spikes to 120s, rarely 130s. - 08/16: HR continues to improve on current regimen. lyte repletion prn. Pain control/mgm't of thrush per pmd/id. -at this point, i suspect his tachycardia is being driven by end-stage copd with ongoing sob sx's. i do not believe he is volume overloaded any longer. i do not think we can achieve tighter HR control without use of AVN ablation and permanent pacing. Continue same meds as doing. if HR remains mostly <110-120 as it has been, will defer AVN ablation/PPM unless evidence of recurrent chf triggered by rapid Afib rates. Vtach: -08/15: 9b run of WCT c/w VT vs aberrantly conducted Afib -K and Mag ok--repletion ordered per usual aggressive targets -LVSF preserved 07/27--rpt echo 08/16 very tds, but confirms preserved systolic function. hld: -continue home statin htn: -stable -same meds possible cad: -pt had borderline positive mibi in 2012 vs soft tissue attenuation artifact -never had angina sx's -ECG nonsp ST-T no signif change vs prior. trop neg x2. no anginal sx's -continue medical management with statin, AC without ASA
[2017-08-16] MEDS ORDERED: POTASSIUM CHLORIDE TABS 20 MEQ TABLET.ER (FP) PO ONE ×2 (12:40→16:15)
--- NOTE | 2017-08-16 13:09 | PN ---
Progress Note (short form) - Note Progress Note: PULMONARY Breathing better today. Saturating well on nasal cannula. Good urine output with torsemide and villareal in place. Last Vital Signs Temp Pulse Resp BP Pulse Ox 97.9 F 93 H 20 149/67 95 08/16/17 08:47 08/16/17 09:03 08/16/17 08:47 08/16/17 08:47 08/16/17 10:33 Intake & Output 08/13/17 08/14/17 08/15/17 08/16/17 23:59 23:59 23:59 23:59 Intake Total 270 740 250 470 Output Total 2400 3000 2300 400 Balance -2129 -2259 -2049 70 Weight 131.088 kg 130.997 kg 130.181 kg Gen: less tachypneic with speaking Heart: RRR Lung: scattered rhonchi R>L Abd: soft, nontender Ext: decreased edema CBC, BMP 08/15/17 05:35 08/16/17 05:30 Active Medications Acetaminophen (Tylenol -) 650 mg PO Q6H PRN PRN Reason: BACK PAIN Albuterol/Ipratropium (Duoneb -) 1 amp NEB Q6H PRN PRN Reason: SHORTNESS OF BREATH Amino Acids (Prosource No Carb Liquid Pkt) 30 ml PO BID@0800,1730 [facility] Last Admin: 08/16/17 08:51 Dose: 30 ml Apixaban (Eliquis -) 5 mg PO BID [facility] Last Admin: 08/16/17 09:02 Dose: 5 mg Atorvastatin Calcium (Lipitor -) 40 mg PO HS [facility] Last Admin: 08/15/17 21:28 Dose: 40 mg Bacitracin (Bacitracin -) 1 applic TP BID [facility] Budesonide/Formoterol Fumarate (Symbicort 160/4.5mcg -) 2 puff IH BID [facility] Last Admin: 08/16/17 09:03 Dose: 2 puff Clotrimazole (Lotrisone Cream (Small Tube)) 1 applic TP BID [facility] Last Admin: 08/16/17 09:03 Dose: Not Given Cyanocobalamin (Vitamin B12 Injection -) 1,000 mcg IM DAILY [facility] Last Admin: 08/16/17 09:01 Dose: 1,000 mcg Digoxin (Lanoxin -) 0.25 mg PO DAILY [facility] Last Admin: 08/16/17 09:03 Dose: 0.25 mg Finasteride (Proscar -) 5 mg PO DAILY [facility] Last Admin: 08/16/17 09:02 Dose: 5 mg Fluconazole (Diflucan -) 100 mg PO DAILY [facility] Last Admin: 08/16/17 09:02 Dose: 100 mg Fluticasone Propionate (Flonase -) 2 spray NS DAILY [facility] Last Admin: 08/16/17 09:02 Dose: 2 sprays Gabapentin (Neurontin -) 300 mg PO TID [facility] Last Admin: 08/16/17 05:36 Dose: 300 mg Insulin Aspart (Novolog Vial Sliding Scale -) 1 vial SQ ACHS [facility] PRN Reason: Protocol Last Admin: 08/16/17 12:06 Dose: Not Given Insulin Detemir (Levemir Vial) 40 units SQ BID@0700,2200 [facility] Last Admin: 08/16/17 06:28 Dose: 40 unit Lidocaine/Aluminum/Magnesium/Simeth (Magic Mouthwash *Sjr Formula* -) 5 ml MM Q6HPO [facility] Last Admin: 08/16/17 13:02 Dose: 5 ml Loratadine (Claritin -) 10 mg PO DAILY [facility] Last Admin: 08/16/17 09:02 Dose: 10 mg Metoprolol Succinate (Toprol Xl -) 25 mg PO DAILY [facility] Last Admin: 08/16/17 09:02 Dose: 25 mg Potassium Chloride (K-Dur -) 40 meq PO ONCE ONE Stop: 08/16/17 12:41 Prednisone (Deltasone -) 30 mg PO BID [facility] Ranitidine HCl (Zantac -) 150 mg PO DAILY [facility] Sodium Chloride ([place] Nasal [place] -) 2 spray NS BID PRN PRN Reason: NASAL CONGESTION Tamsulosin HCl (Flomax -) 0.8 mg PO DAILY@0830 [facility] Last Admin: 08/16/17 08:52 Dose: 0.8 mg Torsemide (Demadex -) 100 mg PO DAILY [facility] Last Admin: 08/16/17 09:07 Dose: 100 mg Valacyclovir HCl (Valtrex -) 1,000 mg PO BID [facility] Last Admin: 08/16/17 09:01 Dose: 1,000 mg Verapamil HCl (Calan Sr -) 240 mg PO BID [facility] Last Admin: 08/16/17 09:07 Dose: 240 mg A/P Atrial Fibrillation with RVR Acute on Chronic Diastolic Heart Failure Acute COPD Exacerbation Acute on Chronic Hypoxic and Hypercapneic Respiratory Failure HTN Hypercholesterolemia Morbid Obesity LUCY - titrate rate control - continue torsemide - monitor urine output, creatinine - daily weights, I/Os - continue anticoagulation - prednisone taper - inhaled bronchodilators - O2 to keep Spo2 >88% - BiPAP at night and PRN during day - magic mouthwash for oral ulcers
[2017-08-16] MEDS: BACITRACIN 15 GM TUBE TOPICAL OINTMENT TP SCH ×2 (13:17→22:48)
[2017-08-16] MEDS: ALBUTEROL SO4 2.5/IPRATROPIUM 0.5 INH SOL 3 ML VIAL.NEB. NEB PRN ×2 (13:29→16:00)
--- NOTE | 2017-08-16 15:09 | PN ---
Progress Note (short form) - Note Progress Note: still with mouth pain no fevers Vital Signs Period Temp Pulse Resp BP Sys/Park Pulse Ox Last 24 Hr 97.3 F-98.2 F 93-108 17-22 102-149/54-77 91-95 oral lesions drying, smaller no thrush cor-rrr lungs decreased bs at bases abd soft,nt ext trace edema CBC, BMP 08/15/17 05:35 08/16/17 05:30 Microbiology 07/30/17 13:15 Blood - Peripheral Venous Blood Culture - Final NO GROWTH AFTER 5 DAYS INCUBATION 07/30/17 13:15 Blood - Peripheral Venous Blood Culture - Final NO GROWTH AFTER 5 DAYS INCUBATION 08/01/17 10:00 Nares - Mrsa Screen - Right MRSA Screen - Final S Aureus 08/01/17 10:00 Nares - Mrsa Screen - Left MRSA Screen - Final S Aureus 07/30/17 18:46 Nasopharyngeal Swab Influenza Types A,B Antigen (LUISANA) - Final 07/30/17 18:46 Nasopharyngeal Swab - Final a/p improved mucocutaneous HSV/thrush- continue valtrex and diflucan day #2 copd/chf- remains on steroids and demadex steroid taper Problem List - Problems (1) COPD exacerbation Code(s): J44.1 - CHRONIC OBSTRUCTIVE PULMONARY DISEASE W (ACUTE) EXACERBATION (2) CHF exacerbation Code(s): I50.9 - HEART FAILURE, UNSPECIFIED Qualifiers: Congestive heart failure type: unspecified congestive heart failure type (3) HSV-1 (herpes simplex virus 1) infection Code(s): B00.9 - HERPESVIRAL INFECTION, UNSPECIFIED (4) Thrush Code(s): B37.0 - CANDIDAL STOMATITIS
[2017-08-16] MEDS: FAMOTIDINE 20 MG/50 ML IVPB 20 MG/50 ML MG IVPB SCH (20:54)
[2017-08-16] MEDS ORDERED: INSULIN (NOVOLOG) ASPART 100 UNITS/ML 10ML VIAL ONE (22:25)
[2017-08-16] MEDS: ATORVASTATIN CA 40 MG TABLET (FP) PO SCH (22:31)
[2017-08-17] MEDS: ALBUTEROL SO4 2.5/IPRATROPIUM 0.5 INH SOL 3 ML VIAL.NEB. NEB PRN ×3 (03:00→11:05)
[2017-08-17] MEDS: MAG HYDROX/ALH/SMC/DPHA/LIDO 240 ML MOUTHWASH MM SCH ×2 (06:49→12:22)
[2017-08-17] MEDS: INSULIN DETEMIR 100 UNITS/ML MDV SQ SCH (06:49)
[2017-08-17] MEDS: INSULIN SLIDING SCALE (NOVOLOG) 1 VIAL SQ SCH ×2 (06:49→12:18)
[2017-08-17] MEDS: GABAPENTIN 300 MG CAPSULE (FP) PO SCH ×2 (06:49→13:28)
[2017-08-17] MEDS ORDERED: PT OWN MED DRAWER 7, Y5N ONE (09:56)
[2017-08-17] MEDS: metoPROLOL SUCCINATE 25 MG TAB.SR.24H (FP) PO SCH (09:58)
[2017-08-17] MEDS: APIXABAN 5 MG TABLET PO SCH (09:58)
[2017-08-17] MEDS: FLUCONAZOLE 100 MG TABLET (UD) PO SCH (09:58)
[2017-08-17] MEDS: TAMSULOSIN HCL 0.4 MG CAP.ER.24H (FP) PO SCH (09:58)
[2017-08-17] MEDS: predniSONE 20 MG TABLET (UD) PO SCH (09:59)
[2017-08-17] MEDS: valACYclovir HCL 500 MG TABLET (FP) PO SCH (09:59)
[2017-08-17] MEDS ORDERED: RANITIDINE HCL 150 MG TABLET (FP) PO SCH (10:00)
[2017-08-17] MEDS: CYANOCOBALAMIN (VITAMIN B-12) 1000 MCG/1 ML VIAL IM SCH (10:00)
[2017-08-17] MEDS: FINASTERIDE 5 MG TABLET (FP) PO SCH (10:01)
[2017-08-17] MEDS: AMINO ACIDS/PROTEIN HYDROLYS 30 ML LIQUID.PKT PO SCH (10:01)
[2017-08-17] MEDS: BACITRACIN 15 GM TUBE TOPICAL OINTMENT TP SCH (10:01)
[2017-08-17] MEDS: VERAPAMIL HCL 240 MG E.R. TABLET (FP) PO SCH (10:02)
[2017-08-17] MEDS: TORSEMIDE 100 MG TABLET PO SCH (10:02)
[2017-08-17] MEDS: LORATADINE 10 MG TABLET PO SCH (10:03)
[2017-08-17] MEDS: FLUTICASONE PROP 0.05% 16 GM NASAL SPRAY NS SCH (10:03)
[2017-08-17] MEDS: DIGOXIN 0.25 MG TABLET (FP) PO SCH (10:04)
[2017-08-17] MEDS: BUDESONIDE/FORMETEROL FUMARATE 160/4.5 mcg INHALER IH SCH (10:04)
[2017-08-17 10:12] VITALS: PULSE 83
[2017-08-17] MEDS: CLOTRIMAZOLE/BETAMET DIPROP 15 GM TUBE TP SCH (10:18)
--- NOTE | 2017-08-17 10:21 | DS ---
Physical Examination Vital Signs: Vital Signs Temperature 98.0 F 08/17/17 06:00 Pulse Rate 83 08/17/17 10:04 Respiratory Rate 18 08/17/17 06:00 Blood Pressure 119/61 08/17/17 06:00 O2 Sat by Pulse Oximetry (%) 91 L 08/17/17 08:17 Constitutional: Yes: No Distress Eyes: Yes: WNL HENT: Yes: WNL, Tonsillar Exudate Cardiovascular: Yes: Pulse Irregular Respiratory: Yes: On BiPap Gastrointestinal: Yes: WNL Renal/: Yes: [place] Present Musculoskeletal: Yes: Muscle Weakness Extremities: Yes: WNL Edema: Yes Peripheral Pulses WNL: Yes Integumentary: Yes: WNL Wound/Incision: Yes: Clean/Dry Neurological: Yes: WNL ...Motor Strength: WNL Psychiatric: Yes: WNL Labs: CBC, BMP 08/15/17 05:35 08/16/17 05:30 Discharge Summary Reason For Visit: A-FIB, COPD, MRSA Current Active Problems Atrial fibrillation (Acute) BPH loc w urin obs/LUTS (Acute) COPD (chronic obstructive pulmonary disease) (Acute) HSV-1 (herpes simplex virus 1) infection (Acute) Other specified eating disorder (Acute) Thrush (Acute) Type 2 diabetes mellitus with diabetic neuropathy (Acute) Procedures: Principal: CXR/LABS Hospital Course: ADMITTED WITH SEVERE VOLUME OVERLOAD CHF DECOMPENSATION AND REMOVED THROUGH DIURESIS OVER 60LBS OF FLUID. CARDIAC WORKUP/PULM WORKUP, BIPAP AND 02 SUPPORT WITH IV LASIX AND DEMADEX. Condition: Stable - Instructions Diet, Activity, Other Instructions: CARDIO PULM REHAB CHECK BGM AC/HS AND DECREASE INSULIN PREDNISONE IS TAPERED OFF TAPER PREDNISONE EVERY 3 DAYS BY 5 MG... KEEP HIM ON MAINTENANCE 5MG DAILY. DAILY WEIGHTS FOR CHF KEEP HIM AROUND 275LBS AGGRESSIVE PT BIPAP NEEDED DIABETIC LOW SODIUM DIET Referrals: Mars Brothers MD [Primary Care Provider] - Disposition: [facility] - Home Medications Comprehensive Discharge Medication List: Ambulatory Orders Apixaban [Eliquis] 5 mg PO BID 08/26/16 Verapamil HCl [Verapamil ER] 240 mg PO BID 08/26/16 Sitagliptin Phos/Metformin HCl [Janumet 50-1,000 mg Tablet] 1 each PO DAILY #30 tab 04/17/17 Digoxin [Lanoxin -] 0.125 mg PO DAILY tablet 07/15/17 Insulin (Levemir) [Levemir Flexpen -] 30 units SQ BID #4 syr 07/15/17 Acetaminophen [Tylenol .Regular Strength -] 650 mg PO Q6H PRN tablet 07/26/17 Albuterol 0.083% Nebulizer [place] [Ventolin 0.083% Nebulizer Soln -] 1 amp NEB Q4H PRN amp 07/26/17 Albuterol 2.5/Ipratropium 0.5 [Duoneb -] 1 amp NEB RQID amp 07/26/17 Atorvastatin Ca [Lipitor] 40 mg PO HS tablet 07/26/17 Budesonide/Formeterol Fumarate [SYMBICORT 160/4.5mcg -] 2 puff IH BID inhaler 07/26/17 Fluticasone Prop 0.05% Nasal [Flonase -] 2 spray NS DAILY spray 07/26/17 Gabapentin [Neurontin -] 300 mg PO TID capsule 07/26/17 Loratadine [Claritin -] 10 mg PO DAILY tablet 07/26/17 Pantoprazole Sodium [Protonix -] 40 mg PO DAILY tablet.ec 07/26/17 Sodium Chloride Nasal [place] [[place] Nasal [place] -] 2 spray NS BID PRN spray 07/26/17 Tamsulosin HCl [Flomax -] 0.4 mg PO DAILY@0830 cap.er.24h 07/26/17 Albuterol 2.5/Ipratropium 0.5 [Duoneb -] 1 amp NEB Q6H PRN amp 08/17/17 Amino Acids/Protein Hydrolys [Prosource No Carb Liquid Pkt] 30 ml PO BID@0800, 1730 packet 08/17/17 Bacitracin - [Bacitracin Topical Ointment -] 1 applic TP BID tube 08/17/17 Clotrimazole/Betamet Diprop [Lotrisone -] 1 applic TP BID tube 08/17/17 Digoxin [Lanoxin -] 0.25 mg PO DAILY tablet 08/17/17 Finasteride [Proscar -] 5 mg PO DAILY tablet 08/17/17 Fluconazole [Diflucan -] 100 mg PO DAILY tablet 08/17/17 Insulin Sliding Scale [Novolog Vial Sliding Scale -] 1 vial SQ ACHS units 08/17 Mag Hydrox/Alh/Smc/Dpha/Lido [Magic Mouthwash *Sjr Formula* -] 5 ml MM Q6HPO bottle 08/17/17 Metoprolol Succinate [Toprol XL -] 25 mg PO DAILY tab.sr.24h 08/17/17 Prednisone [Deltasone -] 30 mg PO BID tablet 08/17/17 Torsemide [Demadex -] 100 mg PO DAILY tablet 08/17/17 Valacyclovir HCl [Valtrex -] 1,000 mg PO BID 5 Days tablet 08/17/17
[2017-08-17 10:58] VITALS: TEMP 97.3
--- NOTE | 2017-08-17 11:34 | PN ---
Progress Note (short form) - Note Progress Note: Chief Complaint: sob History of Present Illness: no cp palps dizzy. sob improving ex-cigs Vital Signs Period Temp Pulse Resp BP Sys/Park Pulse Ox Last 24 Hr 97.3 F-98.8 F 83-108 18-22 102-157/61-74 91-95 Constitutional: Yes: uncomfortable, vomiting. Obese Eyes: No: Sclera Icterus HENT: No: Nasal Congestion Cardiovascular: Yes: Pulse Irregular (soft heart sounds), S1, S2, Other (PMI non diplaced). No: JVD (very tds habitus plus bipap mask), Gallop, Murmur Respiratory: Yes: diminished air movment, Rhonchi, Wheezes. No: Accessory Muscle Use, Rales Gastrointestinal: Yes: Normal Bowel Sounds, Soft. No: Tenderness Extremities: No: Cold Edema: Yes ( trace pretib) Integumentary: No: Jaundice diaphoresis Neurological: Yes: Alert, Oriented (x3) Psychiatric: No: Agitated Labs: Current Medications Generic Name Dose Route Start Last Admin Trade Name Freq PRN Reason Stop Dose Admin Acetaminophen 650 mg 08/04/17 19:19 08/17/17 10:31 Tylenol - PO 650 mg Q6H PRN Administration BACK PAIN Albuterol/Ipratropium 1 amp 08/16/17 11:45 08/17/17 07:15 Duoneb - NEB 1 amp Q6H PRN Administration SHORTNESS OF BREATH Amino Acids 30 ml 08/14/17 17:30 08/17/17 10:01 Prosource No Carb Liquid Pkt PO 30 ml BID@0800,1730 ARVIND Administration Apixaban 5 mg 08/04/17 22:00 08/17/17 09:58 Eliquis - PO 5 mg BID ARVIND Administration Atorvastatin Calcium 40 mg 08/04/17 22:00 08/16/17 22:31 Lipitor - PO 40 mg HS ARVIND Administration Bacitracin 1 applic 08/16/17 11:45 08/17/17 10:01 Bacitracin - TP 1 applic BID ARVIND Administration Budesonide/Formoterol Fumarate 2 puff 08/04/17 22:00 08/17/17 10:04 Symbicort 160/4.5mcg - IH 2 puff BID ARVIND Administration Clotrimazole 1 applic 08/07/17 10:00 08/16/17 22:51 Lotrisone Cream (Small Tube) TP Not Given BID [facility] Cyanocobalamin 1,000 mcg 08/14/17 13:45 08/17/17 10:00 Vitamin B12 Injection - IM 1,000 mcg DAILY ARVIND Administration Digoxin 0.25 mg 08/09/17 10:00 08/17/17 10:04 Lanoxin - PO 0.25 mg DAILY ARVIND Administration Finasteride 5 mg 08/09/17 10:00 08/17/17 10:01 Proscar - PO 5 mg DAILY ARVIND Administration Fluconazole 100 mg 08/15/17 14:15 08/17/17 09:58 Diflucan - PO 100 mg DAILY ARVIND Administration Fluticasone Propionate 2 spray 08/05/17 10:00 08/17/17 10:03 Flonase - NS 2 sprays DAILY ARVIND Administration Gabapentin 300 mg 08/04/17 22:00 08/17/17 06:49 Neurontin - PO 300 mg TID ARVIND Administration Insulin Aspart 1 vial 08/04/17 22:00 08/17/17 06:49 Novolog Vial Sliding Scale - SQ 6 units ACHS ARVIND Administration Protocol Insulin Detemir 40 units 08/12/17 22:00 08/17/17 06:49 Levemir Vial SQ 40 unit BID@0700,2200 ARVIND Administration Lidocaine/Aluminum/Magnesium/Simeth 5 ml 08/13/17 12:00 08/17/17 06:49 Magic Mouthwash *Sjr Formula* - MM 5 ml Q6HPO ARVIND Administration Loratadine 10 mg 08/05/17 10:00 08/17/17 10:03 Claritin - PO 10 mg DAILY ARVIND Administration Metoprolol Succinate 25 mg 08/13/17 11:45 08/17/17 09:58 Toprol Xl - PO 25 mg DAILY ARVIND Administration Prednisone 30 mg 08/16/17 11:53 08/17/17 09:59 Deltasone - PO 30 mg BID ARVIND Administration Ranitidine HCl 150 mg 08/17/17 10:00 08/17/17 10:00 Zantac - PO 150 mg DAILY ARVIND Administration Sodium Chloride 2 spray 08/04/17 19:19 [place] Nas[place] - NS BID PRN NASAL CONGESTION Tamsulosin HCl 0.8 mg 08/09/17 09:38 08/17/17 09:58 Flomax - PO 0.8 mg DAILY@0830 ARVIND Administration Torsemide 100 mg 08/14/17 10:00 08/17/17 10:02 Demadex - PO 100 mg DAILY ARVIND Administration Valacyclovir HCl 1,000 mg 08/15/17 15:00 08/17/17 09:59 Valtrex - PO 1,000 mg BID ARVIND Administration Verapamil HCl 240 mg 08/04/17 22:00 08/17/17 10:02 Calan Sr - PO 240 mg BID ARVIND Administration CBC, BMP 08/15/17 05:35 08/16/17 05:30 - ....Imaging EKG: Other (tele: afib, rate controlled) echo 07/2016: Nl lv/rv. 1+ AR mibi 12/2012: small posterior ischemia vs artifact, nl lvef, no tid cxr: incr markings at bases c/w atx vs early infiltrate a/p: 72 yo male with h/o AFib s/p prior DCCV 12/2015 to on AC, HTN, HL, dchf , PVCs with palpitations, morbid obesity, LUCY on bipap, severe COPD, here with sob. a.e. copd: - ? end-stage copd at this point, with ongoing wheezing and sob when bipap is off, despite he has been vigorously diuresed (suspect he is euvolemic at present ). - per pulm, ongoing steroid taper. acute on chronic diastolic chf: - previous admits, wt up to 340s-350s when decomp chf, with signif incr LE edema - d/c wt 04/26 was 324. and was 315 when left here 07/28, then back up to 327 when back with a.e. copd 07/28. - 07/28 copd admit with marked pedal edema treated with lasix 80 iv bid--d/c wt 314. sent out on lasix 40 po bid. - marked weakness with activity at home, cxr with fluid in fissure, ? effusions on image review--pulmonary team does not suspect a.e. copd or PNA - BNP 180 (prior range 90-300). phys exam prohibitively TDS for volume assessment, and cannot get standing wts until pt moves from ICU to tele bed. - 1/22 no standing weight done here (ordered today). incr lasix from 40 iv bid to 80 iv bid. - 08/02-: bmp stable on increased IV lasix, still with congestion on cxr 08/07. con't current regimen. - 08/08: wt down to 297. lytes stable. pedal edema resolved. CXR 08/07 with persistent diffuse interstitial infiltrates, ? intra-alveolar infiltrates/edema at bases, small L effusion new vs prior. ? ongoing uncontrolled AF rates driving ongoing diast chf (vs vice versa). Incr lasix to 100 iv bid, give one dose metolazone 5mg today. rpt cxr in am--consider CT chest if uncertainty regarding the dx. AF hr control as doing. renal u/s ordered due to complaints of urinary retention - 08/13: developed retention sx's, flomax started. wt continues to progressively decline with lasix 100 IV bid (now 289 lbs). bicarb trending up the past couple of days (40s). suspect volume-contracted at present. - change lasix 100 iv bid to torsemide 100 po qd. - 08/14: wt down 288. cxr today much better aerated, no chf suspected. continue torsemide 100 qd trial. - 08/15-08/17: wt down, labs stable. cont torsemide 100 qd. paroxysmal AF/flutter -cont eliquis for AC -new dx 2015--req'd amio for HR control then (now off due to severe lung dz), s/ p successful DCCV 12/24, then reverted to afib -defer AVN ablation/PPM unless future signs of HF being driven by rapid HRs (to date thus far, his AF rates are well-controlled at office, and only rapid sec to acute copd). -avoiding BB given severe bronchospasm/copd; would like to avoid long-term amio for same reason -on outpatient regimen here, verapamil 240 bid, and dig (level good here). monitor tele -rate typically becomes elevated in settings of respiratory distress and often improves with bipap therapy. - 08/02: rapid HR (140s) in setting of nausea/vomiting. Given 150 IV amio. 0.25 digoxin IV x 1. Given a total of 25 mg of IV dilt and started on diltiazem drip. -08/04-08/07: hr overall controlled. cont dig and verapamil. -08/08: HR worsened controlled, ? contributing to ongoing CHF. running out of AVN charles options here. incr dig to 0.25mg qd (daily levels ordered). aggressive diuresis attempt to continue until pt clearly dry--if remains uncontrolled HR at that time will have to refer to EP to consider AVN ablation/ PM (pt advised of this possibility today) -08/09-08/12: HR improved, meds unchanged -08/13: HR 80s-100s, spikes to 120s often. HR control remains suboptimal presuming this is driving his diast CHF (not certain here). will cautiously add low dose B-selective B-charles (metoprolol 25mg qd) while pt in hospital and can be monitored (this dose of metopr very unlikely to worsen bronchospasm). cont verap 240 bid, dig 0.25 (levels good). -08/14-08/15: HR usually reasonable, occasional spikes to 120s, rarely 130s. - 08/16-: HR controlled on current regimen. -at this point, i suspect his tachycardia is being driven by end-stage copd with ongoing sob sx's. i do not believe he is volume overloaded any longer. i do not think we can achieve tighter HR control without use of AVN ablation and permanent pacing. Continue same meds as doing. if HR remains mostly <110-120 as it has been, will defer AVN ablation/PPM unless evidence of recurrent chf triggered by rapid Afib rates. hld: -continue home statin htn: -stable -same meds possible cad: -pt had borderline positive mibi in 2012 vs soft tissue attenuation artifact -never had angina sx's -ECG nonsp ST-T no signif change vs prior. trop neg x2. no anginal sx's -continue medical management with statin, AC without ASA cardiac green stable for dc
--- NOTE | 2017-08-17 12:23 | PN ---
Progress Note (short form) - Note Progress Note: less mouth pain Vital Signs Period Temp Pulse Resp BP Sys/Park Pulse Ox Last 24 Hr 97.3 F-98.8 F 83-108 18-22 102-157/61-74 91-95 lips healed, tingue lesions present but shrinking cor-rrr lungs decreased bs at bases abd soft,nt ext no edema CBC, BMP 08/15/17 05:35 08/16/17 05:30 a/p improved mucocutaneous HSV/thrush- continue valtrex and diflucan day #3- would complete 7 days- improving copd/chf- remains on steroids and demadex steroid taper Problem List - Problems (1) COPD exacerbation Code(s): J44.1 - CHRONIC OBSTRUCTIVE PULMONARY DISEASE W (ACUTE) EXACERBATION (2) CHF exacerbation Code(s): I50.9 - HEART FAILURE, UNSPECIFIED Qualifiers: Congestive heart failure type: unspecified congestive heart failure type (3) HSV-1 (herpes simplex virus 1) infection Code(s): B00.9 - HERPESVIRAL INFECTION, UNSPECIFIED (4) Thrush Code(s): B37.0 - CANDIDAL STOMATITIS
--- NOTE | 2017-08-17 14:02 | PN ---
Progress Note (short form) - Note Progress Note: ENT 72 yo M with sores in mouth no prior history painful mouth and tongue, difficulty eating and swallowing PE (2-5) mild discomfort oral cavity: numerous small lesions soft palate, anterior 1/3 tongue, bilateral buccal mucosa, lower lip round to ovoid, sl fibrinous exudate, all appear similar (same stage) poor dentition with decay and gingivitis neck no mass or node Impression: stomatitis, glossitis ?drug reaction not clinically consistent with thrush Recommend: diet as tolerated symptomatic medications (Magic Mouthwash) additional medical evaluation with Infectious Disease in progress Adin Patricio MD FACS
[2017-08-17 14:58] VITALS: BP 136/70
--- NOTE | 2017-08-17 20:26 | CONSULT ---
Consult Consult Specialty:: Surgery Reason for Consultation:: Umbilical hernia - History Source History Provided By: Patient, Medical Record - Past Medical History Cardio/Vascular: Yes: AFIB, CHF, HTN, Hyperlipdemia, Pulmonary Hypertension Pulmonary: Yes: COPD, O2 Dependent, Pneumonia, Sleep Apnea. No: Cancer Gastrointestinal: Yes: GERD Renal/: Yes: Renal Inusuff Endocrine: Yes: Other (MORBIDLY OBESE) - Past Surgical History Past Surgical History: Yes: Tonsillectomy - Alcohol/Substance Use Hx Alcohol Use: No - Smoking History Smoking history: Former smoker Have you smoked in the past 12 months: No Aproximately how many cigarettes per day: 0 If you are a former smoker, when did you quit?: 6 years ago - Social History Usual Living Arrangement: With Spouse ADL: Independent Occupation: retired History of Recent Travel: No Home Medications - Allergies Allergies/Adverse Reactions: Allergies Allergy/AdvReac Type Severity Reaction Status Date / Time No Known Allergies Allergy Verified 07/30/17 11:13 - Home Medications Home Medications: Ambulatory Orders Apixaban [Eliquis] 5 mg PO BID 08/26/16 Verapamil HCl [Verapamil ER] 240 mg PO BID 08/26/16 Sitagliptin Phos/Metformin HCl [Janumet 50-1,000 mg Tablet] 1 each PO DAILY #30 tab 04/17/17 Digoxin [Lanoxin -] 0.125 mg PO DAILY tablet 07/15/17 Insulin (Levemir) [Levemir Flexpen -] 30 units SQ BID #4 syr 07/15/17 Acetaminophen [Tylenol .Regular Strength -] 650 mg PO Q6H PRN tablet 07/26/17 Albuterol 0.083% Nebulizer [place] [Ventolin 0.083% Nebulizer Soln -] 1 amp NEB Q4H PRN amp 07/26/17 Albuterol 2.5/Ipratropium 0.5 [Duoneb -] 1 amp NEB RQID amp 07/26/17 Atorvastatin Ca [Lipitor] 40 mg PO HS tablet 07/26/17 Budesonide/Formeterol Fumarate [SYMBICORT 160/4.5mcg -] 2 puff IH BID inhaler 07/26/17 Fluticasone Prop 0.05% Nasal [Flonase -] 2 spray NS DAILY spray 07/26/17 Gabapentin [Neurontin -] 300 mg PO TID capsule 07/26/17 Loratadine [Claritin -] 10 mg PO DAILY tablet 07/26/17 Pantoprazole Sodium [Protonix -] 40 mg PO DAILY tablet.ec 07/26/17 Sodium Chloride Nasal [place] [[place] Nas[place] -] 2 spray NS BID PRN spray 07/26/17 Tamsulosin HCl [Flomax -] 0.4 mg PO DAILY@0830 cap.er.24h 07/26/17 Albuterol 2.5/Ipratropium 0.5 [Duoneb -] 1 amp NEB Q6H PRN amp 08/17/17 Amino Acids/Protein Hydrolys [Prosource No Carb Liquid Pkt] 30 ml PO BID@0800, 1730 packet 08/17/17 Bacitracin - [Bacitracin Topical Ointment -] 1 applic TP BID tube 08/17/17 Clotrimazole/Betamet Diprop [Lotrisone -] 1 applic TP BID tube 08/17/17 Digoxin [Lanoxin -] 0.25 mg PO DAILY tablet 08/17/17 Finasteride [Proscar -] 5 mg PO DAILY tablet 08/17/17 Fluconazole [Diflucan -] 100 mg PO DAILY tablet 08/17/17 Insulin Sliding Scale [Novolog Vial Sliding Scale -] 1 vial SQ ACHS units 08/17 Mag Hydrox/Alh/Smc/Dpha/Lido [Magic Mouthwash *Sjr Formula* -] 5 ml MM Q6HPO bottle 08/17/17 Metoprolol Succinate [Toprol XL -] 25 mg PO DAILY tab.sr.24h 08/17/17 Prednisone [Deltasone -] 30 mg PO BID tablet 08/17/17 Torsemide [Demadex -] 100 mg PO DAILY tablet 08/17/17 Valacyclovir HCl [Valtrex -] 1,000 mg PO BID 5 Days tablet 08/17/17 Review of Systems - Review of Systems Constitutional: denies: Chills Neck: reports: No Symptoms Cardiovascular: denies: Chest Pain Gastrointestinal: denies: Abdominal Pain, Vomiting Pain Intensity: 0 Physical Exam Vital Signs: Vital Signs Temperature 97.3 F L 08/17/17 14:55 Pulse Rate 83 08/17/17 14:55 Respiratory Rate 20 08/17/17 14:55 Blood Pressure 136/70 08/17/17 14:55 O2 Sat by Pulse Oximetry (%) 91 L 08/17/17 15:58 HENT: Yes: WNL Neck: Yes: Supple Cardiovascular: Yes: WNL Respiratory: Yes: Diminished Gastrointestinal: Yes: Soft, Abdomen, Obese, Other (Reducible umbilical hernia) . No: Distention Neurological: Yes: Alert, Oriented Labs: CBC, BMP 08/15/17 05:35 08/16/17 05:30 Problem List - Problems (1) Umbilical hernia Code(s): K42.9 - UMBILICAL HERNIA WITHOUT OBSTRUCTION OR GANGRENE Qualifiers: Obstruction and gangrene presence: without obstruction or gangrene Qualified Code(s): K42.9 - Umbilical hernia without obstruction or gangrene Assessment/Plan Umbilical hernia- reducible Follow up as outpatient for repair Thank you
== END 2017-08-17 16:14 | DRG 291 ==
LOC: JER 10:29 → JERBED 13:46 → OBSVTOIN 07-31 → J2W 07-31 20:27 → JICU 08-02 18:29 → J4S 08-04 18:58
PROVIDERS: ADMIT Family Medicine; ATTEND Family Medicine
PROC: 5A09557 Assistance with Respiratory Ventilation, Greater than 96 Consecutive Hours, Continuous Positive Airway Pressure (ICD-10-PCS; principal; 2017-07-31)
DX: I11.0 Hypertensive heart disease with heart failure (principal); J96.21 Acute and chronic respiratory failure with hypoxia; J96.22 Acute and chronic respiratory failure with hypercapnia; J44.1 Chronic obstructive pulmonary disease with (acute) exacerbation; B37.0 Candidal stomatitis; I48.92 Unspecified atrial flutter; N13.8 Other obstructive and reflux uropathy; I47.2 Ventricular tachycardia; I50.33 Acute on chronic diastolic (congestive) heart failure; I48.2 Chronic atrial fibrillation; E11.9 Type 2 diabetes mellitus without complications; K21.9 Gastro-esophageal reflux disease without esophagitis; K42.9 Umbilical hernia without obstruction or gangrene; B00.9 Herpesviral infection, unspecified; N40.1 Benign prostatic hyperplasia with lower urinary tract symptoms; E11.40 Type 2 diabetes mellitus with diabetic neuropathy, unspecified; Z79.4 Long term (current) use of insulin; E66.01 Morbid (severe) obesity due to excess calories; G47.33 Obstructive sleep apnea (adult) (pediatric); J20.9 Acute bronchitis, unspecified; R33.9 Retention of urine, unspecified; Z87.891 Personal history of nicotine dependence; E78.5 Hyperlipidemia, unspecified
CPT/HCPCS: 36415; 71045-TC; 76775-TC; 76856-TC; 80048; 80053; 80162; 82550; 82803; 82962; 83036; 83735; 83880; 84100; 84439; 84443; 84484; 85025; 85027; 85610; 86850; 86900; 86901; 87040; 87081; 87804; 93005; 93010; 93306-TC; 94640; 94660; 97116-GP; 97161-GP; 99285-25; G0378

== ENCOUNTER 2017-09-09 13:01 | Inpatient (IN) | payer OTHER ==
--- NOTE | 2017-09-09 13:16 | PDOC ---
Attending Attestation - Resident Resident Name: JaradFan farias - HPI HPI: 09/09/17 14:22 pt presents to the ED after sent in from retirement for low blood pressure. patient complains of shortness of breath that is similar to his chronic shortness of breath, and denies new complaints. Despite chief complaint from triage, patient does not seem to be altered. - Physicial Exam PE: 09/09/17 14:31 Agree with resident exam. PAtient is alert and oriented x 3. Abdomen is soft, non tender, non distended. - Critical Care Time Total Critical Care Time: 30 Critical Care Statement: The care of this patient involved high complexity decision making to prevent further life threatening deterioration of the patient 's condition and/or to evaluate & treat vital organ system(s) failure or risk of failure. - Medical Decision Making 09/09/17 14:32 Pt presents to the ED with hypotension. Extensive past medical history as described above, most notable for severe COPD, severe CHF and rapid a fib that was hard to control. Hypotensive on arrival to the ED with sbp of 70. Differential includes dehydration, sepsis, less likely cardiogenic shock. BP appears to be improving with gentle hydration. Will check labs and cardiac profile, admit to medicine for continued monitoring.
[2017-09-09] MEDS ORDERED: SODIUM CHLORIDE 1,000 ML IV STA (13:36)
[2017-09-09 13:42] VITALS: BMI 41.8
[2017-09-09] MEDS ORDERED: SODIUM CHLORIDE 500 ML IV STA (13:52)
[2017-09-09 14:03] LABS: HEMOGLOBIN 12.8 GM/dL (11.7-16.9); MCHC 31.9 g/dl (32.0-35.9); MEAN CELL VOLUME 90.9 fl (80-96); MEAN PLT VOLUME 8.2 fl (7.5-11.1); PLATELET COUNT 401 K/MM3 (134-434); RBC 4.41 M/mm3 (4.00-5.60); RDW 23.5 % (11.9-15.9); WHITE BLOOD COUNT 12.8 K/mm3 (4.0-10.0)
--- NOTE | 2017-09-09 14:10 | PDOC ---
History of Present Illness <Ishmael Lala - Last Filed: 09/09/17 15:37> - General History Source: Patient Exam Limitations: No Limitations - History of Present Illness Initial Comments: 09/09/17 14:06 Patient is a 72M pulmonary hypertension, CHF, COPD, GERD, kidney failure, D2M, HLD, aFib here today complaining of altered mental status. retirement paper work states that the patient was found with a decreased level of consciousness. Paperwork described patient as lethargic, but still responsive to name, tactile , and painful. Glucose was 73. Patient denies any complaints at this time. Patient denies chest pain, shortness of breath, abdominal pain, headache. He endorses a baseline shortness of breath. He does state that he has not been eating as much, but denies nausea, vomiting, fevers and chills. <Fan Muñoz - Last Filed: 09/09/17 16:38> - General Chief Complaint: Altered Mental Status Stated Complaint: AMS Time Seen by Provider: 09/09/17 13:16 Past History <Ishmael Lala - Last Filed: 09/09/17 15:37> - Past Medical History Anemia: No Asthma: Yes Cancer: No Cardiac Disorders: Yes (CAD, COARSE A.FIBRILATION, CHRONIC ISCHEMIC HEART DISEASE, CARDIOMYOPATHY) CVA: No COPD: Yes (EMPHYSEMA) CHF: Yes Dementia: No Diabetes: Yes (IDDM) GI Disorders: No Disorders: No HTN: Yes Hypercholesterolemia: Yes Liver Disease: Yes (FATTY LIVER) Seizures: No Thyroid Disease: No - Surgical History Abdominal Surgery: No Appendectomy: No Cardiac Surgery: No Cholecystectomy: No Lung Surgery: No Neurologic Surgery: No Orthopedic Surgery: Yes (bilateral knee surgery 1974 left knee 1979) - Family Disease History Family Disease History: Heart Disease: Father - Immunization History Immunization Up to Date: Yes - Suicide/Smoking/Psychosocial Hx Smoking Status: Yes (QUIT 2011) Smoking History: Former smoker Have you smoked in the past 12 months: No Number of Cigarettes Smoked Daily: 0 If you are a former smoker, when did you quit?: 6 years ago Cigars Per Day: 0 Information on smoking cessation initiated: No 'Breaking Loose' booklet given: 08/01/17 Hx Alcohol Use: No Drug/Substance Use Hx: No Substance Use Type: None Hx Substance Use Treatment: Yes (Used to drink and use marijuana and cocaine.) <Fan Muñoz - Last Filed: 09/09/17 16:38> - Past Medical History Allergies/Adverse Reactions: Allergies Allergy/AdvReac Type Severity Reaction Status Date / Time No Known Allergies Allergy Verified 07/30/17 11:13 Review of Systems - Review of Systems Comments:: 09/09/17 14:10 GENERAL/CONSTITUTIONAL: No fever or chills. No weakness. HEAD, EYES, EARS, NOSE AND THROAT: No change in vision. No sore throat. CARDIOVASCULAR: No chest pain. Positive for shortness of breath RESPIRATORY: No cough, wheezing, or hemoptysis. GASTROINTESTINAL: No nausea, vomiting, diarrhea or constipation. GENITOURINARY: No dysuria, frequency, or change in urination. SKIN: No rash NEUROLOGIC: No headache, vertigo, loss of consciousness, or change in strength/ sensation. ENDOCRINE: No increased thirst. Positive for decreased weight. ALLERGIC/IMMUNOLOGIC: No hives or skin allergy. <Fan Muñoz - Last Filed: 09/09/17 16:38> *Physical Exam - Vital Signs Last Vital Signs Temp Pulse Resp BP Pulse Ox 100.3 F H 112 H 24 118/107 97 09/09/17 14:07 09/09/17 14:07 09/09/17 13:53 09/09/17 13:53 09/09/17 13:53 <Ishmael Lala - Last Filed: 09/09/17 15:37> - Vital Signs Last Vital Signs Temp Pulse Resp BP Pulse Ox 83/50 09/09/17 13:06 - Physical Exam Comments: 09/09/17 14:12 GENERAL: Awake, alert, and fully oriented, in no acute distress HEAD: No signs of trauma, normocephalic, atraumatic EYES: PERRLA, EOMI, sclera anicteric, conjunctiva clear ENT: Auricles normal inspection, hearing grossly normal, nares patent, oropharynx clear without exudates. Moist mucosa LUNGS: No distress, speaks full sentences, clear to auscultation bilaterally HEART: Tachycardic, normal S1 and S2, no murmurs, rubs or gallops, peripheral pulses normal and equal bilaterally. ABDOMEN: Soft, nontender, normoactive bowel sounds. No guarding, no rebound. No masses EXTREMITIES: Normal inspection, Normal range of motion, no edema. No clubbing or cyanosis. NEUROLOGICAL: Cranial nerves II through XII grossly intact. Moving all extremities SKIN: Warm, Dry, normal turgor, petechial rash over medial aspect of each knee bilaterally <Fan Muñoz - Last Filed: 09/09/17 16:38> ED Treatment Course - LABORATORY CBC & Chemistry Diagram: 09/09/17 13:47 09/09/17 13:47 - ADDITIONAL ORDERS Additional order review: Laboratory Results 09/09/17 09/09/17 09/09/17 13:47 13:47 13:41 PT with INR 15.40 H INR 1.36 H D PTT (Actin FS) 28.0 Sodium 136 Potassium 4.0 Chloride 96 L Carbon Dioxide 29 D Anion Gap 11 BUN 50 H D Creatinine 1.1 Creat Clearance w eGFR > 60 Random Glucose 85 D Lactic Acid 2.5 H* Calcium 7.5 L Total Bilirubin 1.6 H D AST 44 H D ALT 96 H D Alkaline Phosphatase 143 H D Creatine Kinase 54 Troponin I 0.05 D Total Protein 5.7 L Albumin 1.8 L D Blood Type Antibody Screen 09/09/17 13:36 PT with INR INR PTT (Actin FS) Sodium Potassium Chloride Carbon Dioxide Anion Gap BUN Creatinine Creat Clearance w eGFR Random Glucose Lactic Acid Calcium Total Bilirubin AST ALT Alkaline Phosphatase Creatine Kinase Troponin I Total Protein Albumin Blood Type O POSITIVE Antibody Screen Negative 09/09/17 13:47 RBC 4.41 MCV 90.9 D MCHC 31.9 L RDW 23.5 H D MPV 8.2 Neutrophils % No Result Required. Lymphocytes % No Result Required. - Medications Given in the ED: ED Medications Discontinued Medications Generic Name Dose Route Start Last Admin Trade Name Freq PRN Reason Stop Dose Admin Sodium Chloride 1,000 mls @ 1,000 mls/hr 09/09/17 13:36 09/09/17 14:03 Normal Saline - IV 09/09/17 14:35 Not Given ASDIR STA Sodium Chloride 500 mls @ 500 mls/hr 09/09/17 13:52 09/09/17 13:40 Normal Saline - IV 09/09/17 14:51 500 mls/hr ASDIR STA Administration <Ishmael Lala - Last Filed: 09/09/17 15:37> - LABORATORY CBC & Chemistry Diagram: 09/09/17 13:47 09/09/17 13:47 - ADDITIONAL ORDERS Additional order review: 09/09/17 13:47 RBC 4.41 MCV 90.9 D MCHC 31.9 L RDW 23.5 H D MPV 8.2 Neutrophils % No Result Required. Lymphocytes % No Result Required. - RADIOLOGY Radiology Studies Ordered: Category Date Time Status CHEST X-RAY PORTABLE* [RAD] Stat Radiology 09/09/17 13:36 Taken - Medications Given in the ED: ED Medications Discontinued Medications Generic Name Dose Route Start Last Admin Trade Name Freq PRN Reason Stop Dose Admin Sodium Chloride 1,000 mls @ 1,000 mls/hr 09/09/17 13:36 09/09/17 14:03 Normal Saline - IV 09/09/17 14:35 Not Given ASDIR STA <Fan Muñoz - Last Filed: 09/09/17 16:38> Medical Decision Making - Medical Decision Making 09/09/17 15:[address] Deneen brown, who states Dr. Desai is principal consulting engineer. Awaiting callback. <Ishmael Lala - Last Filed: 09/09/17 15:37> - Critical Care Time Total Critical Care Time (minutes): 30 Critical Care Statement: The care of this patient involved high complexity decision making to prevent further life threatening deterioration of the patient 's condition and/or to evaluate & treat vital organ system(s) failure or risk of failure. - Medical Decision Making 09/09/17 14:14 Patient is a 72M pulmonary hypertension, CHF, COPD, GERD, kidney failure, D2M, HLD, aFib here today complaining of altered mental status. Vital signs notable for hypotension with systolic blood pressures in the 80s and 70s. A: Patient protecting airway B: Equal breath sounds bilaterally, normal work of breathing C: Patient arrived with IV in R forearm and L hand. 20g IV placed in left AC, labs drawn. Tachycardic D: Moving all extremities E: Small rash over aspects of knees Differential diagnosis for patient is broad. DDx includes, buts is not limited to: cardiogenic shock, septic shock, hypovolemic shock. Will start with broad septic workup. Will limit fluid bolus to 500cc given patient's tenuous cardiac status. EKG shows afib with RVR, rate of 113. No st elevations/depressions. T wave inversions in V5, V6, II, aVF CXR shows no acute infiltrate, no signs of fluid overload. Does show cardiomegaly. 09/09/17 14:37 Laboratory Tests 09/09/17 09/09/17 09/09/17 13:47 13:47 13:47 WBC 12.8 H Hgb 12.8 Hct 40.0 Plt Count 401 D INR 1.36 H D BUN 50 H D Creatinine 1.1 Troponin I 0.05 D CBC shows leukocytosis. H/H stable. BUN/Cr ratio suggestive of hypovolemia. Troponin detectable at 0.05. UA/UC pending. Blood pressures stable with systolics in high 80s/low 90s. 09/09/17 14:39 Lactate 2.5. Will continue gentle hydration. 09/09/17 16:38 Admitted to [facility] via PROCESSING TECHNICIAN Dipin <Fan Muñoz - Last Filed: 09/09/17 16:38> *DC/Admit/Observation/Transfer <Ishmael Lala - Last Filed: 09/09/17 15:37> - Discharge Dispostion Admit: Yes <Fan Muñoz - Last Filed: 09/09/17 16:38> Diagnosis at time of Disposition: Dehydration - Discharge Dispostion Condition at time of disposition: Stable
[2017-09-09 14:25] LABS: INR 1.36 (0.82-1.09); PROTHROMBIN TIME (PATIENT) 15.4 SEC (9.98-11.88)
[2017-09-09 14:28] LABS: ALBUMIN 1.8 g/dl (3.4-5.0); ANION GAP 11 (8-16); BILIRUBIN,TOTAL 1.6 mg/dL (0.2-1.0); BLOOD UREA NITROGEN 50 mg/dL (7-18); CALCIUM 7.5 mg/dL (8.5-10.1); CHLORIDE 96 mmol/L (98-107); CO2 29 mmol/L (21-32); CREATININE 1.1 mg/dL (0.7-1.3); GLUCOSE,RANDOM 85 mg/dL (74-106); SGOT/AST 44 U/L (15-37); SGPT/ALT 96 U/L (12-78); SODIUM 136 mmol/L (136-145); TOT PROT 5.7 g/dl (6.4-8.2)
[2017-09-09 14:32] LABS: ALK PHOS 143 U/L (45-117); ANISOCYTOSIS 1+; MACROCYTOSIS 1+; PLATELET ESTIMATE NORMAL
[2017-09-09 16:53] LABS: URINE APPEARANCE CLOUDY; URINE BILIRUBIN NEGATIVE (NEGATIVE); URINE BLOOD NEGATIVE (NEGATIVE); URINE COLOR AMBER; URINE GLUCOSE (UA) NEGATIVE (NEGATIVE); URINE KETONE NEGATIVE (NEGATIVE); URINE NITRITE NEGATIVE (NEGATIVE); URINE PROTEIN NEGATIVE (NEGATIVE); URINE UROBILINOGEN 4.0 E.U/dl mg/dL (0.2-1.0)
[2017-09-09 16:54] LABS: URINE LEUK ESTERASE 3+ (NEGATIVE)
[2017-09-09 16:59] LABS: EPI CELLS RARE /HPF (FEW); URINE BACTERIA MANY /hpf (NONE SEEN); URINE HYALINE CAST 3 /lpf; URINE MUCUS RARE
[2017-09-09] MEDS ORDERED: SODIUM CHLORIDE 1,000 ML IV SCH (19:30)
[2017-09-09] MEDS ORDERED: DEXTROSE 50%-WATER - 25 GM/50 ML VIAL IVPUSH PRN (19:34)
[2017-09-09] MEDS: ACETAMINOPHEN 325 MG TABLET (FP) PO SCH (20:49)
[2017-09-09] MEDS: ALBUTEROL SO4 2.5/IPRATROPIUM 0.5 INH SOL 3 ML VIAL.NEB. NEB SCH (20:50)
[2017-09-09] MEDS ORDERED: DEXTROSE 50%-WATER - 25 GM/50 ML VIAL ONE (21:50)
[2017-09-09] MEDS: APIXABAN 5 MG TABLET PO SCH (21:59)
[2017-09-09] MEDS: ATORVASTATIN CA 40 MG TABLET (FP) PO SCH (21:59)
[2017-09-09] MEDS ORDERED: DEXTROSE 5%-NORMAL SALINE 1,000 ML IV SCH (22:00)
[2017-09-09] MEDS: INSULIN SLIDING SCALE (NOVOLOG) 1 VIAL SQ SCH (22:04)
[2017-09-10] MEDS ORDERED: DEXTROSE 5%-0.45% SALINE 1,000 ML IV SCH ×2 (02:15→13:31)
[2017-09-10] MEDS: ACETAMINOPHEN 325 MG TABLET (FP) PO SCH ×4 (02:38→20:21)
[2017-09-10] MEDS ORDERED: DEXTROSE 50%-WATER 25 GM/50 ML DISP.SYRIN IVPUSH ONE (03:46)
[2017-09-10] MEDS ORDERED: DEXTROSE 50%-WATER - 25 GM/50 ML VIAL ONE (03:50)
[2017-09-10] MEDS: INSULIN SLIDING SCALE (NOVOLOG) 1 VIAL SQ SCH ×4 (06:00→22:00)
[2017-09-10] MEDS: ALBUTEROL SO4 2.5/IPRATROPIUM 0.5 INH SOL 3 ML VIAL.NEB. NEB SCH ×4 (07:40→21:00)
[2017-09-10] MEDS ORDERED: DEXTROSE 50%-WATER - 25 GM/50 ML VIAL IVPUSH PRN (08:24)
[2017-09-10] MEDS ORDERED: TAMSULOSIN HCL 0.4 MG CAP.ER.24H (FP) PO SCH ×2 (08:30→10:00)
--- NOTE | 2017-09-10 09:28 | CON.CARD ---
Consult Consult Specialty:: cardio - History of Present Illness Chief Complaint: low bp History of Present Illness: 72 yo male sent from SNF for hypotension. sbp reportedly noted to be 70s in ER (not documented in [facility]'s section). initially given IVF with bp improved to 110s. however drifted back down to 80s. low-grade temp (100.3) HR well controlled in ER 70s-90s receiving IVF at 75 cc/hr with systolic bp ranging 80s-90 all day, including presently per RN on floor (not yet entered in [facility]). pt denies LH currently. denies any viral or other infectious sx's. no diarrhea. denies cp, palpit. sob at his usual baseline from copd. no recent wheezing PMH: chronic diast chf afib severe copd obesity/LUCY HTN - Past Medical History Cardio/Vascular: Yes: AFIB, CHF, HTN, Hyperlipdemia, Pulmonary Hypertension Pulmonary: Yes: COPD, O2 Dependent, Pneumonia, Sleep Apnea. No: Cancer Gastrointestinal: Yes: GERD Renal/: Yes: Renal Inusuff Endocrine: Yes: Other (MORBIDLY OBESE) - Past Surgical History Past Surgical History: Yes: Tonsillectomy - Alcohol/Substance Use Hx Alcohol Use: No - Smoking History Smoking history: Former smoker Have you smoked in the past 12 months: No Aproximately how many cigarettes per day: 0 If you are a former smoker, when did you quit?: 6 years ago - Social History Usual Living Arrangement: With Spouse ADL: Independent Occupation: retired History of Recent Travel: No Home Medications - Allergies Allergies/Adverse Reactions: Allergies Allergy/AdvReac Type Severity Reaction Status Date / Time No Known Allergies Allergy Verified 07/30/17 11:13 - Home Medications Home Medications: Ambulatory Orders Acetaminophen 650 mg PO Q6H 09/09/17 Albuterol 2.5/Ipratropium 0.5 [Duoneb -] 1 neb IH QID 09/09/17 Apixaban [Eliquis -] 5 mg PO DAILY 09/09/17 Atorvastatin Ca [Lipitor] 40 mg PO HS 09/09/17 Clotrimazole 15 gm TP DAILY 09/09/17 Fluticasone/Vilanterol [Breo Ellipta 200-25 Mcg INH] 1 each IH DAILY 09/09/17 Glimepiride [Amaryl] 2 mg PO AM 09/09/17 Insulin (Levemir) [Levemir Vial] 30 units SQ BID 09/09/17 Lanolin Alcohol/Mo/W.pet/[place] [Eucerin Creme] 113 gm TP DAILY 09/09/17 Lidocaine 2% Viscous Oral [Xylocaine 2% Viscous Oral -] 15 ml PO TID 09/09/17 Povidone-Iodine [Betadine] 1 each TP DAILY 09/09/17 Tamsulosin HCl [Flomax] 0.4 mg PO DAILY 09/09/17 Torsemide 100 mg PO DAILY 09/09/17 Verapamil HCl [Calan Sr] 240 mg PO DAILY 09/09/17 predniSONE [Deltasone -] 5 mg PO DAILY 09/09/17 Family Disease History - Family Disease History Family History: Denies (no known cmp) Review of Systems - Review of Systems Constitutional: denies: Chills, Fever Eyes: denies: Eye Pain HENT: denies: Nasal Congestion Neck: denies: Stiffness Cardiovascular: denies: Palpitations Respiratory: denies: Orthopnea, PND Gastrointestinal: denies: Diarrhea, Rectal Bleeding Genitourinary: denies: Burning, Hematuria Musculoskeletal: denies: Muscle Pain Integumentary: denies: Rash Neurological: denies: Numbness, Seizure, Syncope Endocrine: denies: Excessive Sweating Hematology/Lymphatic: denies: Excessive Bleeding Vital Signs: Vital Signs Temperature 97.6 F 09/10/17 06:06 Pulse Rate 72 09/10/17 07:04 Respiratory Rate 20 09/10/17 06:06 Blood Pressure 89/46 09/10/17 06:06 O2 Sat by Pulse Oximetry (%) 94 L 09/10/17 07:04 Constitutional: Yes: Well Nourished, No Distress Eyes: No: Sclera Icterus HENT: No: Nasal Congestion Neck: No: Decreased ROM Respiratory: Yes: CTA Bilaterally. No: Accessory Muscle Use, Rales, Wheezes Gastrointestinal: Yes: Normal Bowel Sounds. No: Distention, Hepatomegaly, Palpable Mass, Tenderness Cardiovascular: Yes: Pulse Irregular (soft heart sounds) JVD: No Carotid Bruit: No PMI: Non-Displaced Heart Sounds: Yes: S1, S2. No: Gallop Murmur: No: Systolic Murmur, Diastolic Murmur Musculoskeletal: Yes: Other (No kyphosis) Extremities: No: Cool, Cyanosis Edema: No Peripheral Pulses: 2+ Left Carotid, 2+ Right Carotid, 2+ Left Doralis Pedis, 2+ Right Dorsalis Pedis Integumentary: No: Jaundice Neurological: Yes: Alert, Oriented (x3) Psychiatric: No: Agitated - Other Data Labs, Other Data: INR, PTT INR 1.36 (0.82-1.09) H D 09/09/17 13:47 Troponin, BNP 09/09/17 13:47 Troponin I 0.05 D Troponin, BNP 09/09/17 13:47 Troponin I 0.05 D Assessment/Plan echo 07/2016: Nl lv/rv. 1+ AR mibi 12/2012: small posterior ischemia vs artifact, nl lvef, no tid cxr: incr markings diffusely, no infiltrate/effusions--no change vs prior EKG 09/09: afib; nonsp ST-Ts diffusely, slightly more pronounced than prior a/p: 72 yo male with h/o AFib s/p prior DCCV 12/2015 to SR on AC, HTN, HL, dchf , PVCs with palpitations, morbid obesity, LUCY on bipap, severe COPD, here with sob. hypotension: -lactate mildly elevated, wbc mildly elevated, low-grade fever. -AST/LT and bili mildly up vs prior baseline -labs not c/w prerenal/vol-depleted state -? sepsis: cultures pending. pt has not received any doses of empiric abx coverage in ER. defer ? of abx to dr lewis's coverage/critical care -TSH normal. -pt chronically on and off steroids for copd. d/w'd critical care (dr valdes): will transfer to ICU and start stress dose steroids empirically. -check am cortisol. -incr IVF rate 75 cc/hr to 125 cc/hr -no ischemic ecg changes, trop neg x 2 -of note, pt has tolerated present high-dose AVN blockers for a long time. Flomax added last admit, which may be contributing somewhat to low BPs now acute on chronic diastolic chf: - 07/28 copd admit with marked pedal edema treated with lasix--d/c wt 314. sent out on lasix 40 po bid. - 08/28 admit with prolonged volume-up during last admit 08/28 (in setting of peristent rapid AF), requiring lasix 100 iv bid for diuresis. - new dry wt on last discharge 287 lbs (+signif muscle atrophy from prolonged bedbound state) - discharged on torsemide 100 qd. - no standing weight measured here--ordered today copd: - ? end-stage copd at this point, freq admits - per pulm paroxysmal AF/flutter -on eliquis for AC -new dx 2015--req'd amio for HR control then (now off due to severe lung dz), s/ p successful DCCV 12/24, then reverted to afib -HR persistently rapid last admit 08/28 despite home regimen verapamil 240 bid plus digoxin continued--? was exacerbating refractory diast chf. -dig increased to 0.25 qd (level WNL), metoprolol 25mg qd added-->HR improved significantly -plan was to continue same meds and, if HR remains mostly <110-120 and no signf this was causing refractory/recurrent HF, would defer AVN ablation/PPM -presently, holding verapamil and metoprolol given hypotension, HR currently remains stable -dig 1.3--cont 0.25mg qd for AF control, as doing hld: -continue home statin htn: -low bp's here, workup ongoing as above -holding meds as necessary possible cad: -pt had borderline positive mibi in 2012 vs soft tissue attenuation artifact -never had angina sx's -ECG nonsp ST-T no signif change vs prior. trop neg x2. no anginal sx's -continue medical management with statin, AC without ASA
[2017-09-10 09:32] LABS: HEMATOCRIT 36.4 % (35.4-49); HEMOGLOBIN 11.7 GM/dL (11.7-16.9); MCH 29.3 pg (25.7-33.7); MCHC 32.2 g/dl (32.0-35.9); MEAN CELL VOLUME 91.1 fl (80-96); MEAN PLT VOLUME 7.9 fl (7.5-11.1); PLATELET COUNT 388 K/MM3 (134-434); RBC 3.99 M/mm3 (4.00-5.60); RDW 22.6 % (11.9-15.9); WHITE BLOOD COUNT 11.7 K/mm3 (4.0-10.0)
[2017-09-10 09:50] LABS: ALBUMIN 1.6 g/dl (3.4-5.0); ALK PHOS 122 U/L (45-117); ANION GAP 12 (8-16); BILIRUBIN,TOTAL 1.3 mg/dL (0.2-1.0); BLOOD UREA NITROGEN 54 mg/dL (7-18); CALCIUM 7.1 mg/dL (8.5-10.1); CHLORIDE 101 mmol/L (98-107); CO2 24 mmol/L (21-32); CREATININE 1.4 mg/dL (0.7-1.3); GLUCOSE,RANDOM 69 mg/dL (74-106); POTASSIUM 3.6 mmol/L (3.5-5.1); SGOT/AST 37 U/L (15-37); SGPT/ALT 80 U/L (12-78); SODIUM 137 mmol/L (136-145); TOT PROT 4.8 g/dl (6.4-8.2)
[2017-09-10] MEDS ORDERED: PATIENT'S OWN MEDICATION (NON-FORMULARY) (Fluticasone/Vilanterol [Breo Ellipta 200-25 Mcg IH SCH (10:00)
[2017-09-10] MEDS ORDERED: predniSONE 5 MG TABLET (UD) PO SCH (10:00)
[2017-09-10 10:39] LABS: ANISOCYTOSIS 3+; MACROCYTOSIS 1+; PLATELET ESTIMATE NORMAL; TEAR DROP CELLS 1+
[2017-09-10] MEDS ORDERED: PT OWN MED DRAWER 7, Y5N ONE ×2 (11:19→21:50)
[2017-09-10] MEDS: APIXABAN 5 MG TABLET PO SCH ×2 (11:35→21:53)
[2017-09-10] MEDS: CLOTRIMAZOLE 1% CREAM 15 GM TUBE TP SCH (11:35)
--- NOTE | 2017-09-10 11:48 | EKG ---
Test Reason : Blood Pressure : / mmHG Vent. Rate : 113 BPM Atrial Rate : 174 BPM P-R Int : 000 ms QRS Dur : 096 ms QT Int : 304 ms P-R-T Axes : 000 029 215 degrees QTc Int : 416 ms ATRIAL FIBRILLATION WITH RAPID VENTRICULAR RESPONSE LOW VOLTAGE QRS NONSPECIFIC ST AND T WAVE ABNORMALITY ABNORMAL ECG WHEN COMPARED WITH ECG OF 07-AUG-2017 12:18, INVERTED T WAVES HAVE REPLACED NONSPECIFIC T WAVE ABNORMALITY IN LATERAL LEADS Confirmed by MD ROSALBA, KG ([id number]) on 09/10/2017 11:47:42 AM Referred By: Confirmed By:KG NAVARRETE MD
[2017-09-10] MEDS: HYDROCORTISONE SOD SUCCINATE 100 MG/2 ML VIAL IVPUSH SCH ×2 (14:53→17:56)
--- NOTE | 2017-09-10 15:16 | CON.NEP ---
Consult Consult Specialty:: nephrology Referred by:: dahlia Reason for Consultation:: azotemia - History of Present Illness Chief Complaint: azotemia hypotension History of Present Illness: elderly man admitted with acute worse azotemia clinically dry was transferred with hypotension and afib fluid resuscitation was started in ER and now he is admitted to ICU - History Source History Provided By: Medical Record - Past Medical History Cardio/Vascular: Yes: AFIB, CHF, HTN, Hyperlipdemia, Pulmonary Hypertension Pulmonary: Yes: COPD, O2 Dependent, Pneumonia, Sleep Apnea. No: Cancer Gastrointestinal: Yes: GERD Renal/: Yes: Renal Inusuff Endocrine: Yes: Other (MORBIDLY OBESE) - Past Surgical History Past Surgical History: Yes: Tonsillectomy - Alcohol/Substance Use Hx Alcohol Use: No - Smoking History Smoking history: Former smoker Have you smoked in the past 12 months: No Aproximately how many cigarettes per day: 0 If you are a former smoker, when did you quit?: 6 years ago - Social History Usual Living Arrangement: With Spouse ADL: Independent Occupation: retired History of Recent Travel: No Home Medications - Allergies Allergies/Adverse Reactions: Allergies Allergy/AdvReac Type Severity Reaction Status Date / Time No Known Allergies Allergy Verified 07/30/17 11:13 - Home Medications Home Medications: Ambulatory Orders Acetaminophen 650 mg PO Q6H 09/09/17 Albuterol 2.5/Ipratropium 0.5 [Duoneb -] 1 neb IH QID 09/09/17 Apixaban [Eliquis -] 5 mg PO DAILY 09/09/17 Atorvastatin Ca [Lipitor] 40 mg PO HS 09/09/17 Clotrimazole 15 gm TP DAILY 09/09/17 Fluticasone/Vilanterol [Breo Ellipta 200-25 Mcg INH] 1 each IH DAILY 09/09/17 Glimepiride [Amaryl] 2 mg PO AM 09/09/17 Insulin (Levemir) [Levemir Vial] 30 units SQ BID 09/09/17 Lanolin Alcohol/Mo/W.pet/[place] [Eucerin Creme] 113 gm TP DAILY 09/09/17 Lidocaine 2% Viscous Oral [Xylocaine 2% Viscous Oral -] 15 ml PO TID 09/09/17 Povidone-Iodine [Betadine] 1 each TP DAILY 09/09/17 Tamsulosin HCl [Flomax] 0.4 mg PO DAILY 09/09/17 Torsemide 100 mg PO DAILY 09/09/17 Verapamil HCl [Calan Sr] 240 mg PO DAILY 09/09/17 predniSONE [Deltasone -] 5 mg PO DAILY 09/09/17 Nephrology Consult - Height Height: 5 ft 11 in - Weight Weight: 300 lb - BMI Body Mass Index (BMI): 41.8 - Lab Results CBC,BMP: CBC, BMP 09/10/17 09:10 09/10/17 09:10 Anion Gap: Anion Gap Anion Gap 12 (8-16) 09/10/17 09:10 - Physical Examination Vital Signs: Vital Signs Temperature 97.9 F 09/10/17 10:00 Pulse Rate 98 H 09/10/17 13:10 Respiratory Rate 22 09/10/17 13:10 Blood Pressure 90/42 09/10/17 13:10 O2 Sat by Pulse Oximetry (%) 94 L 09/10/17 12:00 Assessment/Plan acute kidney injury 2/2 volume deficit and hemodynamically mediated renal hypoperfusion underlying ckd maost likely prerenal - pulmonary hypertension, CHF, COPD, GERD, kidney failure, D2M, HLD, aFib altered mental status prior to transfer to the hosp Plan- hydrate cautiously monitor urine out put to ensure adequate response to fluids ns bolus prn for low bp
--- NOTE | 2017-09-10 20:30 | CONSULT ---
Consult Consult Specialty:: Pulm Critical Care Reason for Consultation:: hypotension - History of Present Illness Chief Complaint: dehyration History of Present Illness: Patient is a 72 M pulmHTN, CHF, severe COPD, GERD, kidney failure, D2M, HLD, aFib transferred to [facility] ED from [facility] w/ c/o altered mental status. As per chart review, [place] records indicate pt was found w/ a decreased level of consciousness, lethargic, but still responsive to name, tactile, and painful. Glucose check showed to be 73 at that time. Patient denied any complaints. No CP , in crease SOB from baseline, abd pain or HORTON was endorsed. Patient denies chest pain, shortness of breath, abdominal pain, headache. He does state that he has not been eating as much, but denies nausea, vomiting, fevers and chills. In [facility] ED pt was found to be alert and oriented without lethargy, but had hypotension of SBP 70, w/o s/s of infection. Pt was gently hydrated with NS with improved BP. Labs remarkable for mild leukocytosis, lactate 2.5, mildly elevated liver enzymes from baseline, CXR= no infiltrates, +cardiomegaly. EKG= afib; nonsp ST-Ts. Consulted by cards and nephrology. Transferred to ICU for further management. In [facility] ICU, pt is hemodyanmically stable with SBP in low 90s and in AFib low 100s. Pt continued on maintenance IVFs. No episodes of hypoglycemia or altered mental status. Pt is a/ox4. 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 No: Cancer Gastrointestinal: Yes: GERD Hepatobiliary: No: Cirrhosis, Cholelithiasis, Cholecystitis, Choledocholithiasis , Hepatitis A, Hepatitis B, Hepatitis C, Other Renal/: Yes: Renal Inusuff Heme/Onc: No: Anemia, B12 Deficiency, Bleeding Disorder, Cancer, Current Chemotherapy, Current Radiation Therapy, Hemochromatosis, Hypercoaguable State, Myeloproliferative Synd, Sickle Cell Disease, Sickle Cell Trait, Thrombocytopenia, Other Infectious Disease: No: AIDS, C-Diff, Herpes Zoster, HIV, MRSA, STD's, Tuberculosis, VREF, Other Psych: No: Addictions, Anxiety, Bipolar, Depression, Panic, Psychosis, Schizophrenia, Other Musculoskeletal: No: Bursitis, Chronic low back pain, Hemiparesis, Hemiplegia, Osteoarthritis, Paraplegia, Other Rheumatology: No: Fibromyalgia, Gout, Lupus, Rheumatoid Arthritis, Sarcoidosis, Vasculitis, Other ENT: No: Allergic Rhinitis, Sinusitis, Other Endocrine: Yes: Other (MORBIDLY OBESE) Dermatology: No: Basal Cell, Cellulitis, Eczema, Melanoma, Psoriasis, Squamous Cell, Other - Past Surgical History Past Surgical History: Yes: Tonsillectomy - Alcohol/Substance Use Hx Alcohol Use: No - Smoking History Smoking history: Former smoker Have you smoked in the past 12 months: No Aproximately how many cigarettes per day: 0 If you are a former smoker, when did you quit?: 6 years ago - Social History Usual Living Arrangement: Intermediate ADL: Independent Occupation: retired History of Recent Travel: No Home Medications - Allergies Allergies/Adverse Reactions: Allergies Allergy/AdvReac Type Severity Reaction Status Date / Time No Known Allergies Allergy Verified 07/30/17 11:13 - Home Medications Home Medications: Ambulatory Orders Acetaminophen 650 mg PO Q6H 09/09/17 Albuterol 2.5/Ipratropium 0.5 [Duoneb -] 1 neb IH QID 09/09/17 Apixaban [Eliquis -] 5 mg PO DAILY 09/09/17 Atorvastatin Ca [Lipitor] 40 mg PO HS 09/09/17 Clotrimazole 15 gm TP DAILY 09/09/17 Fluticasone/Vilanterol [Breo Ellipta 200-25 Mcg INH] 1 each IH DAILY 09/09/17 Glimepiride [Amaryl] 2 mg PO AM 09/09/17 Insulin (Levemir) [Levemir Vial] 30 units SQ BID 09/09/17 Lanolin Alcohol/Mo/W.pet/[place] [Eucerin Creme] 113 gm TP DAILY 09/09/17 Lidocaine 2% Viscous Oral [Xylocaine 2% Viscous Oral -] 15 ml PO TID 09/09/17 Povidone-Iodine [Betadine] 1 each TP DAILY 09/09/17 Tamsulosin HCl [Flomax] 0.4 mg PO DAILY 09/09/17 Torsemide 100 mg PO DAILY 09/09/17 Verapamil HCl [Calan Sr] 240 mg PO DAILY 09/09/17 predniSONE [Deltasone -] 5 mg PO DAILY 09/09/17 Family Disease History - Family Disease History Family History: Unremarkable Review of Systems - Review of Systems Constitutional: reports: No Symptoms Eyes: reports: No Symptoms HENT: reports: No Symptoms Neck: reports: No Symptoms Cardiovascular: reports: No Symptoms Respiratory: reports: No Symptoms Gastrointestinal: reports: No Symptoms Genitourinary: reports: No Symptoms Breasts: reports: No Symptoms Reported Musculoskeletal: reports: No Symptoms Integumentary: reports: No Symptoms Neurological: reports: No Symptoms Endocrine: reports: No Symptoms Hematology/Lymphatic: reports: No Symptoms Psychiatric: reports: No Symptoms Physical Exam Vital Signs: Vital Signs Temperature 97.3 F L 09/10/17 17:56 Pulse Rate 102 H 09/10/17 18:10 Respiratory Rate 26 H 09/10/17 18:10 Blood Pressure 84/50 09/10/17 18:10 O2 Sat by Pulse Oximetry (%) 96 09/10/17 18:00 Constitutional: Yes: Well Nourished, No Distress, Calm Eyes: Yes: WNL, Conjunctiva Clear, EOM Intact HENT: Yes: WNL, Atraumatic, Normocephalic Neck: Yes: WNL, Supple, Trachea Midline Cardiovascular: Yes: WNL, Pulse Irregular (AFib on monitor low 100s) Respiratory: Yes: WNL, Regular, CTA Bilaterally. No: Accessory Muscle Use, SOB Gastrointestinal: Yes: WNL, Normal Bowel Sounds, Soft ...Rectal Exam: Yes: Deferred Renal/: Yes: WNL Breast(s): Yes: WNL Musculoskeletal: Yes: WNL (b/l Heel pain chronic as per pt), Other Extremities: Yes: WNL Edema: Yes Edema: LUE: Trace, RUE: Trace, LLE: Trace, RLE: Trace Peripheral Pulses WNL: Yes Integumentary: Yes: WNL Wound/Incision: Yes: Clean/Dry Neurological: Yes: WNL, Alert, Oriented ...Motor Strength: WNL Psychiatric: Yes: WNL, Alert, Oriented Labs: CBC, BMP 09/10/17 09:10 09/10/17 09:10 Imaging - Results Chest X-ray: Report Reviewed (clear) EKG: Report Reviewed (Afib @113bpm) Problem List - Problems (1) Dehydration Code(s): E86.0 - DEHYDRATION (2) Acute CHF Code(s): I50.9 - HEART FAILURE, UNSPECIFIED (3) Atrial fibrillation Code(s): I48.91 - UNSPECIFIED ATRIAL FIBRILLATION Qualifiers: Atrial fibrillation type: chronic Qualified Code(s): I48.2 - Chronic atrial fibrillation (4) Azotemia Code(s): R79.89 - OTHER SPECIFIED ABNORMAL FINDINGS OF BLOOD CHEMISTRY (5) COPD (chronic obstructive pulmonary disease) Code(s): J44.9 - CHRONIC OBSTRUCTIVE PULMONARY DISEASE, UNSPECIFIED Qualifiers: COPD type: unspecified COPD Qualified Code(s): J44.9 - Chronic obstructive pulmonary disease, unspecified Assessment/Plan Patient is a 72 M pulmHTN, CHF, severe COPD, GERD, kidney failure, D2M, HLD, aFib initially transferred to [facility] ED from [facility] w/ c/o altered mental status, found to be alert and oriented but hypotensive responsive to fluids with afib, now transferred to ICu for further management. Altered Mental Status prior to [facility] presentation, most likely 2/2 to hypoglycemia in the setting of poor PO intake, now alert and oriented and not lethargic. -cont to monitor MS -f/s q4h Hypotension most likely 2/2 hypovolemia vs. acute on chronic HF,AST/LT and bili mildly up vs prior baseline; BPs now improved w/ IVF. Echo 07/2016 shows Nl lv/ rv. 1+ AR, EKG 3/2: afib; nonsp ST-Ts, trop neg; TSH normal; least likely sepsis although has mild leukocytosis, lactate 2.5, and low grade fever. CXR does not show infiltrates or effusions, no cough or s/s of infx. -f/u cultures -continue IVF -daily weights -Echo -BNP -EKG -hold verapamil and metoprolol -cont eliquis for afib -cont 0.25mg qd for AF control -solumedrol stress dose -f/u Cortisol Level in AM -hold flomax for now -f/u cx Paroxysmal Afib newly dx in 2015-previously on amio for HR control (now off due to severe lung dz), s/p successful DCCV 12/24, then reverted to afib -plan was to continue same meds -As per card consult, if HR remains mostly <110-120 and no signf this was causing refractory/recurrent HF, would defer AVN ablation/PPM -cont eliquis for AC h/o COPD on and off steroids; cxr= incr markings diffusely, no infiltrate/ effusions -on stress dose steroids -supplemental o2 as needed -bipap o/n for LUCY SHAKIR most likely prerenal 2/2 hypovolemia in the setting of poor po intake and poor forward flow hypotension w/ CHF and chronic kidney disease vs adrenal insufficiency in the setting of on and off steroids for COPD. - gentle hydration - encourage PO intake - strict I & O - Bolus NS PRN for hypotension TORRIE Solo- Pulm Critical care cc time 39 mins
--- NOTE | 2017-09-10 21:24 | HP ---
Admitting History and Physical - Admission History Source: Patient Limitations to Obtaining History: No Limitations - Past Medical History Cardiovascular: Yes: AFIB, CHF, HTN, Hyperlipdemia, Pulmonary Hypertension Pulmonary: Yes: COPD, O2 Dependent, Pneumonia, Sleep Apnea. No: Cancer Gastrointestinal: Yes: GERD Renal/: Yes: Renal Inusuff Endocrine: Yes: Other (MORBIDLY OBESE) - Past Surgical History Past Surgical History: Yes: Tonsillectomy - Smoking History Smoking history: Former smoker Have you smoked in the past 12 months: No Aproximately how many cigarettes per day: 0 If you are a former smoker, when did you quit?: 6 years ago - Alcohol/Substance Use Hx Alcohol Use: No - Social History ADL: Independent Occupation: retired History of Recent Travel: No Home Medications - Allergies Allergies/Adverse Reactions: Allergies Allergy/AdvReac Type Severity Reaction Status Date / Time No Known Allergies Allergy Verified 07/30/17 11:13 - Home Medications Home Medications: Ambulatory Orders Acetaminophen 650 mg PO Q6H 09/09/17 Albuterol 2.5/Ipratropium 0.5 [Duoneb -] 1 neb IH QID 09/09/17 Apixaban [Eliquis -] 5 mg PO DAILY 09/09/17 Atorvastatin Ca [Lipitor] 40 mg PO HS 09/09/17 Clotrimazole 15 gm TP DAILY 09/09/17 Fluticasone/Vilanterol [Breo Ellipta 200-25 Mcg INH] 1 each IH DAILY 09/09/17 Glimepiride [Amaryl] 2 mg PO AM 09/09/17 Insulin (Levemir) [Levemir Vial] 30 units SQ BID 09/09/17 Lanolin Alcohol/Mo/W.pet/[place] [Eucerin Creme] 113 gm TP DAILY 09/09/17 Lidocaine 2% Viscous Oral [Xylocaine 2% Viscous Oral -] 15 ml PO TID 09/09/17 Povidone-Iodine [Betadine] 1 each TP DAILY 09/09/17 Tamsulosin HCl [Flomax] 0.4 mg PO DAILY 09/09/17 Torsemide 100 mg PO DAILY 09/09/17 Verapamil HCl [Calan Sr] 240 mg PO DAILY 09/09/17 predniSONE [Deltasone -] 5 mg PO DAILY 09/09/17 Review of Systems - Review of Systems Constitutional: reports: Weakness Eyes: reports: No Symptoms HENT: reports: No Symptoms Neck: reports: No Symptoms Cardiovascular: reports: No Symptoms Respiratory: reports: No Symptoms Gastrointestinal: reports: No Symptoms Genitourinary: reports: No Symptoms Breasts: reports: No Symptoms Reported Musculoskeletal: reports: No Symptoms Integumentary: reports: No Symptoms Neurological: reports: No Symptoms Endocrine: reports: No Symptoms Hematology/Lymphatic: reports: No Symptoms Psychiatric: reports: No Symptoms Physical Examination Vital Signs: Vital Signs Temperature 97.3 F L 09/10/17 17:56 Pulse Rate 102 H 09/10/17 18:10 Respiratory Rate 26 H 09/10/17 18:10 Blood Pressure 84/50 09/10/17 18:10 O2 Sat by Pulse Oximetry (%) 96 09/10/17 18:00 Constitutional: Yes: Well Nourished, No Distress, Calm Cardiovascular: Yes: Pulse Irregular Respiratory: Yes: Regular Labs: CBC, BMP 09/10/17 09:10 09/10/17 09:10 Problem List - Problems (1) Dehydration Assessment/Plan: -nephrology consult -cardiology consult -IVF -hold BP meds Code(s): E86.0 - DEHYDRATION (2) Atrial fibrillation Assessment/Plan: -chronic -On AC -cardiac monitoring Code(s): I48.91 - UNSPECIFIED ATRIAL FIBRILLATION Qualifiers: Atrial fibrillation type: chronic Qualified Code(s): I48.2 - Chronic atrial fibrillation (3) Diabetes mellitus Assessment/Plan: -hold insulin -endocrine consult Code(s): E11.9 - TYPE 2 DIABETES MELLITUS WITHOUT COMPLICATIONS Qualifiers: Diabetes mellitus type: type 2 Assessment/Plan see problem list
[2017-09-10] MEDS: ATORVASTATIN CA 40 MG TABLET (FP) PO SCH (21:53)
[2017-09-10] MEDS ORDERED: SODIUM CHLORIDE 1,000 ML IV SCH (22:15)
[2017-09-11] MEDS: HYDROCORTISONE SOD SUCCINATE 100 MG/2 ML VIAL IVPUSH SCH ×3 (02:35→17:37)
[2017-09-11] MEDS: ACETAMINOPHEN 325 MG TABLET (FP) PO SCH ×4 (02:35→20:30)
[2017-09-11] MEDS: SODIUM CHLORIDE 1,000 ML IV SCH (06:18)
[2017-09-11] MEDS: INSULIN SLIDING SCALE (NOVOLOG) 1 VIAL SQ SCH ×4 (06:19→22:12)
[2017-09-11 06:34] LABS: HEMATOCRIT 34.9 % (35.4-49); HEMOGLOBIN 11.5 GM/dL (11.7-16.9); MCH 30.1 pg (25.7-33.7); MEAN CELL VOLUME 91.3 fl (80-96); MEAN PLT VOLUME 8.2 fl (7.5-11.1); PLATELET COUNT 404 K/MM3 (134-434); RBC 3.82 M/mm3 (4.00-5.60); RDW 22.9 % (11.9-15.9); WHITE BLOOD COUNT 10.5 K/mm3 (4.0-10.0)
[2017-09-11 06:55] LABS: ANISOCYTOSIS 3+
[2017-09-11 07:05] LABS: CHLORIDE 99 mmol/L (98-107); POTASSIUM 4.3 mmol/L (3.5-5.1); SODIUM 137 mmol/L (136-145)
[2017-09-11 07:15] LABS: ALBUMIN 1.6 g/dl (3.4-5.0); ALK PHOS 127 U/L (45-117); ANION GAP 13 (8-16); BILIRUBIN,TOTAL 1.1 mg/dL (0.2-1.0); BLOOD UREA NITROGEN 53 mg/dL (7-18); CALCIUM 7.4 mg/dL (8.5-10.1); CO2 25 mmol/L (21-32); CREATININE 1.3 mg/dL (0.7-1.3); GLUCOSE,RANDOM 196 mg/dL (74-106); SGOT/AST 26 U/L (15-37); SGPT/ALT 76 U/L (12-78); TOT PROT 4.8 g/dl (6.4-8.2)
[2017-09-11] MEDS: ALBUTEROL SO4 2.5/IPRATROPIUM 0.5 INH SOL 3 ML VIAL.NEB. NEB SCH ×4 (09:05→20:47)
--- NOTE | 2017-09-11 09:21 | PN ---
Progress Note, Physician Chief Complaint: low bp History of Present Illness: denies sob, orthopnea (laying flat), cp, palpitations ex cigs - Current Medication List Current Medications: Active Medications Acetaminophen (Tylenol -) 650 mg PO Q6H [facility] Last Admin: 09/11/17 02:35 Dose: 650 mg Albuterol/Ipratropium (Duoneb -) 1 amp NEB RQID [facility] Last Admin: 09/10/17 21:00 Dose: 1 amp Apixaban (Eliquis -) 5 mg PO BID [facility] Last Admin: 09/10/17 21:53 Dose: 5 mg Atorvastatin Calcium (Lipitor -) 40 mg PO HS [facility] Last Admin: 09/10/17 21:53 Dose: 40 mg Clotrimazole (Lotrimin 1% Cream -) 1 applic TP DAILY [facility] Last Admin: 09/10/17 11:35 Dose: 1 applic Dextrose (D50w (Vial) -) 25 gm IVPUSH PRN PRN PRN Reason: hypoglycemia Digoxin (Lanoxin -) 0.25 mg PO DAILY [facility] Hydrocortisone Sodium Succinate (Solu-Cortef -) 100 mg IVPUSH Q8H-IV [facility] Last Admin: 09/11/17 02:35 Dose: 100 mg Sodium Chloride (Normal Saline -) 1,000 mls @ 75 mls/hr IV ASDIR [facility] Last Admin: 09/11/17 06:18 Dose: 75 mls/hr Insulin Aspart (Novolog Vial Sliding Scale -) 1 vial SQ ACHS [facility] PRN Reason: Protocol Last Admin: 09/11/17 06:19 Dose: 4 units Non-Formulary Medication (Fluticasone/Vilanterol [Breo Ellipta 200-25 Mcg Inh]) 1 each IH DAILY [facility] - Objective Vital Signs: Vital Signs Temperature 98.1 F 09/11/17 06:00 Pulse Rate 101 H 09/11/17 08:00 Respiratory Rate 20 09/11/17 08:00 Blood Pressure 87/59 09/11/17 08:00 O2 Sat by Pulse Oximetry (%) 98 09/10/17 22:58 Constitutional: Yes: No Distress, Calm, Obese Cardiovascular: Yes: Pulse Irregular, S1, S2. No: Gallop, Murmur Respiratory: Yes: Regular, CTA Bilaterally (anteriorly). No: Accessory Muscle Use, Rales, Wheezes Extremities: No: Cold Edema: No Neurological: Yes: Alert, Oriented Psychiatric: No: Agitated Labs: CBC, BMP 09/11/17 05:26 09/11/17 05:26 INR, PTT INR 1.36 (0.82-1.09) H D 09/09/17 13:47 - ....Imaging EKG: Other (tele: afib, HR 100s. up to 150s at times overnight. artifact.) Assessment/Plan Echo 08/28: TDS. nl LV size. prob nl LVSF. RV tds. valves TDS. Echo 07/2016: Nl lv/rv. 1+ AR mibi 12/2012: small posterior ischemia vs artifact, nl lvef, no tid cxr: incr markings diffusely, no infiltrate/effusions--no change vs prior EKG 09/09: afib; nonsp ST-Ts diffusely, slightly more pronounced than prior a/p: 72 yo male with h/o AFib s/p prior DCCV 12/2015 to SR on AC, HTN, HL, dchf , PVCs with palpitations, morbid obesity, LUCY on bipap, severe COPD, here with sob. hypotension, UTI/? urosepsis: -lactate mildly elevated, wbc mildly elevated, low-grade fever. -? sepsis. prelim urine culture positive, awaiting organism--? abx per critical care. f/u blood cultures -TSH normal. -labs not c/w prerenal/vol-depleted state. BP is not consistently improving despite fluid resuscitation (sbp 70s this am) -currently back down to 75 cc/hr IVF, sbp 110s--continue same. low threshold to incr fluids if bp drops again. -? adrenal insufficiency. stress dose steroids empirically started per critical care. am cortisol pending. -no ischemic ecg changes, trop neg x 2 -holding CCB, BB, diuretics abnormal LFTs: -pt is euvolemic vs dry. -doubt hepatic congestion unless there is some new severe right heart lesion that is dissociating left and right heart pressures. the absence of JVD and LE edema makes this very unlikely (note: pt reliably has always had periph edema during CHF exacerbations) chronic diastolic chf: - 07/28 copd admit with marked pedal edema treated with lasix--d/c wt 314. sent out on lasix 40 po bid. - 08/28 admit with prolonged volume-up during last admit 08/28 (in setting of peristent rapid AF), requiring lasix 100 iv bid for diuresis. - new dry wt on last discharge 287 lbs (+signif muscle atrophy from prolonged bedbound state). - no accurate weight here yet (cannot stand) - discharged on torsemide 100 qd, holding currently for hypotension copd: - ? end-stage copd at this point, freq admits - per pulm paroxysmal AF/flutter: -on eliquis for AC -new dx 2015--req'd amio for HR control then (now off due to severe lung dz), s/ p successful DCCV 12/24, then reverted to afib -HR persistently rapid last admit 08/28 despite home regimen verapamil 240 bid plus digoxin continued--? was exacerbating refractory diast chf. -dig increased to 0.25 qd (level WNL), metoprolol 25mg qd added-->HR improved significantly -plan was to continue same meds and, if HR remains mostly <110-120 and no signf this was causing refractory/recurrent HF, would defer AVN ablation/PPM -presently, holding verapamil and metoprolol given hypotension, HR currently remains stable -HRs rapid overnight 09/10, did not receive digoxin yesterday. -09/11: HR currently controlled. dig level 1.3--cont same dose (0.25mg qd) given necessity for for AF control to minimize future CHF exacerbations deconditioning, hypoalbuminemia: -nutrition per critical care hld: -continue home statin htn: -low bp's here, workup ongoing as above -holding meds as necessary possible cad: -pt had borderline positive mibi in 2012 vs soft tissue attenuation artifact -never had angina sx's -ECG nonsp ST-T no signif change vs prior. trop neg x2. no anginal sx's -continue medical management with statin, AC without ASA estimated time spent in pt exam, data review, and formulating mgmt plan of potentially life threatening medical problems = 35 min
[2017-09-11 09:45] LABS: PLATELET ESTIMATE NORMAL
[2017-09-11] MEDS ORDERED: PT OWN MED DRAWER 7, Y5N ONE (10:06)
[2017-09-11] MEDS: APIXABAN 5 MG TABLET PO SCH ×2 (10:07→22:22)
[2017-09-11] MEDS: DIGOXIN 0.125 MG TABLET (FP) PO SCH (10:08)
--- NOTE | 2017-09-11 10:22 | PN ---
Progress Note (short form) - Note Progress Note: PULMONARY/CCM Pt seen and examined in the ICU. Remains on CPAP. Blood pressures improving. Urine cultures growing gram negative rods. Last Vital Signs Temp Pulse Resp BP Pulse Ox 98.1 F 90 20 87/59 98 09/11/17 06:00 09/11/17 10:08 09/11/17 08:00 09/11/17 08:00 09/11/17 09:35 Intake & Output 09/08/17 09/09/17 09/10/17 09/11/17 23:59 23:59 23:59 23:59 Intake Total 550 3145 975 Output Total 300 360 Balance 250 2785 975 Weight 136.078 kg 136.078 kg Gen: on CPAP lying supine Heart: RRR Lung: distant breath sounds, no wheezes Abd: soft, nontender Ext: no edema CBC, BMP 09/11/17 05:26 09/11/17 05:26 Active Medications Acetaminophen (Tylenol -) 650 mg PO Q6H [facility] Last Admin: 09/11/17 07:45 Dose: Not Given Albuterol/Ipratropium (Duoneb -) 1 amp NEB RQID [facility] Last Admin: 09/11/17 09:05 Dose: 1 amp Apixaban (Eliquis -) 5 mg PO BID [facility] Last Admin: 09/11/17 10:07 Dose: 5 mg Atorvastatin Calcium (Lipitor -) 40 mg PO HS [facility] Last Admin: 09/10/17 21:53 Dose: 40 mg Clotrimazole (Lotrimin 1% Cream -) 1 applic TP DAILY [facility] Last Admin: 09/10/17 11:35 Dose: 1 applic Dextrose (D50w (Vial) -) 25 gm IVPUSH PRN PRN PRN Reason: hypoglycemia Digoxin (Lanoxin -) 0.25 mg PO DAILY [facility] Last Admin: 09/11/17 10:08 Dose: 0.25 mg Hydrocortisone Sodium Succinate (Solu-Cortef -) 100 mg IVPUSH Q8H-IV [facility] Last Admin: 09/11/17 10:08 Dose: 100 mg Sodium Chloride (Normal Saline -) 1,000 mls @ 75 mls/hr IV ASDIR [facility] Last Admin: 09/11/17 06:18 Dose: 75 mls/hr Insulin Aspart (Novolog Vial Sliding Scale -) 1 vial SQ ACHS [facility] PRN Reason: Protocol Last Admin: 09/11/17 06:19 Dose: 4 units Non-Formulary Medication (Fluticasone/Vilanterol [Breo Ellipta 200-25 Mcg Inh]) 1 each IH DAILY [facility] A/P UTI Sepsis Lactic Acidosis resolved LV Diastolic Dysfunction COPD Morbid Obesity Obstructive Sleep Apnea Paroxysmal Atrial Fibrillation HTN Hyperlipidemia - will start antibiotics - f/u cultures - IVF as needed - continue empiric stress dose steroids - inhaled bronchodilators - O2 to keep SpO2 >90% - BiPAP to assist in work of breathing - rate control - continue anticoagulation - continue ICU monitoring for now critical care time spent in reviewing chart, evaluating patient and formulating plan 35 min
[2017-09-11] MEDS ORDERED: CEFTRIAXONE 2 GM/100 ML BAG IVPB SCH ×2 (11:00→11:46)
[2017-09-11] MEDS ORDERED: CEFTRIAXONE IN IS-OSM DEXTROSE 2 GM/50 ML BAG IVPB SCH (11:44)
[2017-09-11] MEDS: CEFTRIAXONE 2 GM in DEXTROSE 5%-WATER - 100 ML IVPB SCH (13:00)
[2017-09-11] MEDS: CLOTRIMAZOLE 1% CREAM 15 GM TUBE TP SCH (13:04)
--- NOTE | 2017-09-11 16:02 | PN ---
Progress Note, Physician Chief Complaint: Weakness, hypotension History of Present Illness: NAD, in bed on Nasal O2 BIPAP PRN wants to get out of bed noticed umbilical drainage, has umbilical hernia,s ays it's been draining for over a year - Current Medication List Current Medications: Active Medications Acetaminophen (Tylenol -) 650 mg PO Q6H [facility] Last Admin: 09/11/17 07:45 Dose: Not Given Albuterol/Ipratropium (Duoneb -) 1 amp NEB RQID [facility] Last Admin: 09/11/17 11:53 Dose: 1 amp Apixaban (Eliquis -) 5 mg PO BID [facility] Last Admin: 09/11/17 10:07 Dose: 5 mg Atorvastatin Calcium (Lipitor -) 40 mg PO HS [facility] Last Admin: 09/10/17 21:53 Dose: 40 mg Clotrimazole (Lotrimin 1% Cream -) 1 applic TP DAILY [facility] Last Admin: 09/11/17 13:04 Dose: 1 applic Dextrose (D50w (Vial) -) 25 gm IVPUSH PRN PRN PRN Reason: hypoglycemia Digoxin (Lanoxin -) 0.25 mg PO DAILY [facility] Last Admin: 09/11/17 10:08 Dose: 0.25 mg Hydrocortisone Sodium Succinate (Solu-Cortef -) 100 mg IVPUSH Q8H-IV [facility] Last Admin: 09/11/17 10:08 Dose: 100 mg Sodium Chloride (Normal Saline -) 1,000 mls @ 75 mls/hr IV ASDIR [facility] Last Admin: 09/11/17 06:18 Dose: 75 mls/hr Ceftriaxone Sodium 2 gm/ (Dextrose) 100 mls @ 200 mls/hr IVPB DAILY [facility] Last Admin: 09/11/17 13:00 Dose: 200 mls/hr Insulin Aspart (Novolog Vial Sliding Scale -) 1 vial SQ ACHS [facility] PRN Reason: Protocol Last Admin: 09/11/17 11:38 Dose: Not Given Non-Formulary Medication (Fluticasone/Vilanterol [Breo Ellipta 200-25 Mcg Inh]) 1 each IH DAILY [facility] - Objective Vital Signs: Vital Signs Temperature 98.2 F 09/11/17 14:00 Pulse Rate 96 H 09/11/17 14:00 Respiratory Rate 20 09/11/17 14:00 Blood Pressure 101/76 09/11/17 14:00 O2 Sat by Pulse Oximetry (%) 97 09/11/17 11:54 Constitutional: Yes: Well Nourished, No Distress, Calm Cardiovascular: Yes: Regular Rate and Rhythm Respiratory: Yes: Regular Gastrointestinal: Yes: Normal Bowel Sounds, Abdomen, Obese, Hernia (Umbilical- draining purulent drainage), Palpable Mass Musculoskeletal: Yes: WNL Extremities: Yes: WNL Edema: No Peripheral Pulses WNL: Yes Neurological: Yes: Alert, Oriented Psychiatric: Yes: Alert, Oriented Labs: CBC, BMP 09/11/17 05:26 09/11/17 05:26 INR, PTT INR 1.36 (0.82-1.09) H D 09/09/17 13:47 Problem List - Problems (1) Dehydration Assessment/Plan: -improved -nephrology consult -cardiology consult -IVF -hold BP meds Code(s): E86.0 - DEHYDRATION (2) Atrial fibrillation Assessment/Plan: -chronic -On AC -cardiac monitoring Code(s): I48.91 - UNSPECIFIED ATRIAL FIBRILLATION Qualifiers: Atrial fibrillation type: chronic Qualified Code(s): I48.2 - Chronic atrial fibrillation (3) Diabetes mellitus Assessment/Plan: -hold insulin -endocrine consult Code(s): E11.9 - TYPE 2 DIABETES MELLITUS WITHOUT COMPLICATIONS Qualifiers: Diabetes mellitus type: type 2 (4) Umbilical discharge Assessment/Plan: Wound culture -GI surgery consult Code(s): R19.8 - OTH SYMPTOMS AND SIGNS INVOLVING THE DGSTV SYS AND ABDOMEN Assessment/Plan see problem list
--- NOTE | 2017-09-11 16:02 | PN ---
Progress Note (short form) - Note Progress Note: acute kidney injury 2/2 volume deficit and hemodynamically mediated renal hypoperfusion underlying ckd most likely prerenal - pulmonary hypertension, CHF, COPD, GERD, kidney failure, D2M, HLD, aFib altered mental status prior to transfer to the [facility] Current Medications Acetaminophen (Tylenol -) 650 mg PO Q6H [facility] Last Admin: 09/11/17 07:45 Dose: Not Given Albuterol/Ipratropium (Duoneb -) 1 amp NEB RQID [facility] Last Admin: 09/11/17 11:53 Dose: 1 amp Apixaban (Eliquis -) 5 mg PO BID [facility] Last Admin: 09/11/17 10:07 Dose: 5 mg Atorvastatin Calcium (Lipitor -) 40 mg PO HS [facility] Last Admin: 09/10/17 21:53 Dose: 40 mg Clotrimazole (Lotrimin 1% Cream -) 1 applic TP DAILY [facility] Last Admin: 09/11/17 13:04 Dose: 1 applic Dextrose (D50w (Vial) -) 25 gm IVPUSH PRN PRN PRN Reason: hypoglycemia Digoxin (Lanoxin -) 0.25 mg PO DAILY [facility] Last Admin: 09/11/17 10:08 Dose: 0.25 mg Hydrocortisone Sodium Succinate (Solu-Cortef -) 100 mg IVPUSH Q8H-IV [facility] Last Admin: 09/11/17 10:08 Dose: 100 mg Sodium Chloride (Normal Saline -) 1,000 mls @ 75 mls/hr IV ASDIR [facility] Last Admin: 09/11/17 06:18 Dose: 75 mls/hr Ceftriaxone Sodium 2 gm/ (Dextrose) 100 mls @ 200 mls/hr IVPB DAILY [facility] Last Admin: 09/11/17 13:00 Dose: 200 mls/hr Insulin Aspart (Novolog Vial Sliding Scale -) 1 vial SQ ACHS [facility] PRN Reason: Protocol Last Admin: 09/11/17 11:38 Dose: Not Given Non-Formulary Medication (Fluticasone/Vilanterol [Breo Ellipta 200-25 Mcg Inh]) 1 each IH DAILY [facility] Last Vital Signs Temp Pulse Resp BP Pulse Ox 98.2 F 96 H 20 101/76 97 09/11/17 14:00 09/11/17 14:00 09/11/17 14:00 09/11/17 14:00 09/11/17 11:54 Intake & Output 09/08/17 09/09/17 09/10/17 09/11/17 23:59 23:59 23:59 23:59 Intake Total 550 3145 1375 Output Total 300 360 Balance 250 2785 1375 Weight 300 lb 300 lb alert in nad, orthopnea, tachy/afib Lungs rhonchi heart reg abd soft ext no edema CBC, BMP 09/11/17 05:26 09/11/17 05:26 IMP- lilia resolving uti/sepsis / low bp's mentating better obesity/copd/nathaniel on cpap/ lv dysfunction paf anemia Plan contniue fluid resuscitation s needed monitor chemistries for electrolytes and renal function
[2017-09-11] MEDS: ATORVASTATIN CA 40 MG TABLET (FP) PO SCH (22:10)
[2017-09-12] MEDS: ACETAMINOPHEN 325 MG TABLET (FP) PO SCH ×4 (01:45→20:00)
[2017-09-12] MEDS: HYDROCORTISONE SOD SUCCINATE 100 MG/2 ML VIAL IVPUSH SCH ×3 (02:50→17:33)
[2017-09-12 05:52] LABS: HEMATOCRIT 34.8 % (35.4-49); HEMOGLOBIN 11.2 GM/dL (11.7-16.9); MCH 29.8 pg (25.7-33.7); MCHC 32.3 g/dl (32.0-35.9); MEAN CELL VOLUME 92.1 fl (80-96); MEAN PLT VOLUME 7.9 fl (7.5-11.1); PLATELET COUNT 449 K/MM3 (134-434); RBC 3.78 M/mm3 (4.00-5.60); RDW 23.4 % (11.9-15.9); WHITE BLOOD COUNT 13.2 K/mm3 (4.0-10.0)
[2017-09-12 06:15] LABS: ALBUMIN 1.7 g/dl (3.4-5.0); ALK PHOS 134 U/L (45-117); ANION GAP 9 (8-16); BILIRUBIN,TOTAL 0.8 mg/dL (0.2-1.0); BLOOD UREA NITROGEN 55 mg/dL (7-18); CALCIUM 7.3 mg/dL (8.5-10.1); CHLORIDE 104 mmol/L (98-107); CO2 26 mmol/L (21-32); CREATININE 1.4 mg/dL (0.7-1.3); GLUCOSE,RANDOM 106 mg/dL (74-106); MAGNESIUM 1.4 mg/dL (1.8-2.4); PHOSPHOROUS 2.8 mg/dL (2.5-4.9); SGOT/AST 23 U/L (15-37); SGPT/ALT 73 U/L (12-78); SODIUM 139 mmol/L (136-145); TOT PROT 4.8 g/dl (6.4-8.2)
[2017-09-12] MEDS: INSULIN SLIDING SCALE (NOVOLOG) 1 VIAL SQ SCH ×4 (06:32→22:28)
[2017-09-12] MEDS: SODIUM CHLORIDE 1,000 ML IV SCH (06:33)
--- NOTE | 2017-09-12 07:25 | PN ---
Progress Note, Physician History of Present Illness: HPI 72 YOM with h/o CHF, COPD, who was BIBA from SNF for AMS and hypotension, found to have fever, tachycardia, tachypnea, lactic acid 2.5, sepsis and UTI and started on antibiotics. Given stress dose hydrocortisone. 24 HOUR EVENTS Patient's urine culture grew ESBL, antibiotics switched from Rocephin to ertapenem, patient placed on contact isolation. Blood pressures much improved, no longer tachypneic or appearing SOB. Remains on stress dose hydrocortisone. SUBJECTIVE Patient states much improved, no pain, no SOB. 24 HOUR INTAKE & OUTPUT Intake: 2670cc Output: none reported Net: N/A BM: Yes this AM LINES/TUBES/DRAINS PIV - Current Medication List Current Medications: Active Medications Acetaminophen (Tylenol -) 650 mg PO Q6H [facility] Last Admin: 09/12/17 01:45 Dose: Not Given Albuterol/Ipratropium (Duoneb -) 1 amp NEB RQID [facility] Last Admin: 09/11/17 20:47 Dose: 1 amp Amino Acids (Prosource No Carb Liquid Pkt) 30 ml PO BID@0800,1730 [facility] Apixaban (Eliquis -) 5 mg PO BID [facility] Last Admin: 09/11/17 22:22 Dose: 5 mg Atorvastatin Calcium (Lipitor -) 40 mg PO HS [facility] Last Admin: 09/11/17 22:10 Dose: 40 mg Clotrimazole (Lotrimin 1% Cream -) 1 applic TP DAILY [facility] Last Admin: 09/11/17 13:04 Dose: 1 applic Dextrose (D50w (Vial) -) 25 gm IVPUSH PRN PRN PRN Reason: hypoglycemia Digoxin (Lanoxin -) 0.25 mg PO DAILY [facility] Last Admin: 09/11/17 10:08 Dose: 0.25 mg Hydrocortisone Sodium Succinate (Solu-Cortef -) 100 mg IVPUSH Q8H-IV [facility] Last Admin: 09/12/17 02:50 Dose: 100 mg Sodium Chloride (Normal Saline -) 1,000 mls @ 75 mls/hr IV ASDIR [facility] Last Admin: 09/12/17 06:33 Dose: 75 mls/hr Ceftriaxone Sodium 2 gm/ (Dextrose) 100 mls @ 200 mls/hr IVPB DAILY [facility] Last Admin: 09/11/17 13:00 Dose: 200 mls/hr Insulin Aspart (Novolog Vial Sliding Scale -) 1 vial SQ ACHS [facility] PRN Reason: Protocol Last Admin: 09/12/17 06:32 Dose: Not Given Non-Formulary Medication (Fluticasone/Vilanterol [Breo Ellipta 200-25 Mcg Inh]) 1 each IH DAILY [facility] - Objective Vital Signs: Vital Signs Temperature 98.5 F 09/12/17 02:00 Pulse Rate 108 H 09/12/17 04:00 Respiratory Rate 18 09/12/17 04:00 Blood Pressure 106/90 09/12/17 04:00 O2 Sat by Pulse Oximetry (%) 98 09/12/17 05:41 Constitutional: Yes: Well Nourished, No Distress, Calm, Obese, Other (pleasant older adult male who is conversive, appears comfortable, answers questions appropriately) Eyes: Yes: WNL, Conjunctiva Clear, EOM Intact HENT: Yes: WNL, Atraumatic, Normocephalic Neck: Yes: WNL, Supple, Trachea Midline Cardiovascular: Yes: Tachycardia Respiratory: Yes: Regular, CTA Bilaterally, On Nasal O2. No: Accessory Muscle Use, Cough Gastrointestinal: Yes: WNL, Normal Bowel Sounds, Soft, Abdomen, Obese Musculoskeletal: Yes: WNL Extremities: Yes: WNL. No: Calf Tenderness, Cold, Cyanosis, Erythema, Pallor Edema: No Peripheral Pulses: Left Doralis Pedis: 2+, Right Dorsalis Pedis: 2+ Integumentary: Yes: WNL Neurological: Yes: WNL, Alert, Oriented ...Motor Strength: WNL Psychiatric: Yes: WNL, Alert, Oriented Labs: CBC, BMP 09/12/17 05:05 09/12/17 05:05 INR, PTT INR 1.36 (0.82-1.09) H D 09/09/17 13:47 - ....Imaging Chest X-ray: Report Reviewed, Image Reviewed, Other (No significant interval change) Assessment/Plan 72 YOM with h/o CHF, COPD, LUCY on CPAP, restrictive lung disease 2/2 obesity, DM , A-fib, who was BIBA from SNF for AMS and hypotension, found to have fever, tachycardia, tachypnea, lactic acid 2.5, sepsis and UTI and started on antibiotics. Given stress dose hydrocortisone. RESP Respiratory distress, improved. Patient has h/o pulmonary hypertension, CHF, COPD, LUCY on CPAP, restrictive disease 2/2 obesity. Also with h/o anemia which is likely not helping but is mild. -DuoNeb scheduled -Fluticasone/Vilanterol CARDS #A-fib, chronic on AC. -Continue telemetry monitoring -Continue home Eliquis -Continue digoxin -Cardiology consult ID #Sepsis, improved. Likely 2/2 ESBL UTI which is being treated, also adrenal insufficiency now on stress dose hydrocortisone. -Continue ertapenem -ID consulting RENAL #SHAKIR, mild. Reported h/o CKD but Cr has always been 1.3 or below on [facility] records. Most likely 2/2 hypotension/sepsis and UTI, and hypovolemia. Less likely pyelonephritis as patient did not have CVA tenderness -Nephrology consult -Monitor renal function #Dehydration, improved. -Hold BP meds -IVF ENDO #DM -Hold insulin for now -Endocrinology consult NEURO Altered mental status, resolved. Had been reported prior to being transferred from [facility] to [facility] ED. FEN -Monitor CMP/Mg/Phos -Replace lytes prn -Soft diet PPX DVT: Home Eliquis GI: None PT: Order placed DISPO Stable and appropriate for transfer to med/surg.
[2017-09-12 07:28] LABS: PLATELET ESTIMATE SLT INCREASE
[2017-09-12] MEDS: ALBUTEROL SO4 2.5/IPRATROPIUM 0.5 INH SOL 3 ML VIAL.NEB. NEB SCH ×4 (07:40→20:56)
[2017-09-12] MEDS ORDERED: MAGNESIUM OXIDE 400 MG TABLET (FP) PO ONE (08:45)
--- NOTE | 2017-09-12 09:00 | PN ---
Progress Note, Physician History of Present Illness: 72M pulmonary hypertension, CHF, COPD, GERD, kidney failure, D2M, HLD, aFib here today complaining of altered mental status. [facility] paper work states that the patient was found with a decreased level of consciousness. Paperwork described patient as lethargic, but still responsive to name, tactile, and painful. Glucose was 73. Patient denies any complaints at this time. Patient denies chest pain, shortness of breath, abdominal pain, headache. He endorses a baseline shortness of breath. He does state that he has not been eating as much , but denies nausea, vomiting, fevers and chills. In ICU awake and alert - Current Medication List Current Medications: Active Medications Acetaminophen (Tylenol -) 650 mg PO Q6H [facility] Last Admin: 09/12/17 01:45 Dose: Not Given Albuterol/Ipratropium (Duoneb -) 1 amp NEB RQID [facility] Last Admin: 09/12/17 07:40 Dose: 1 amp Amino Acids (Prosource No Carb Liquid Pkt) 30 ml PO BID@0800,1730 [facility] Apixaban (Eliquis -) 5 mg PO BID [facility] Last Admin: 09/11/17 22:22 Dose: 5 mg Atorvastatin Calcium (Lipitor -) 40 mg PO HS [facility] Last Admin: 09/11/17 22:10 Dose: 40 mg Clotrimazole (Lotrimin 1% Cream -) 1 applic TP DAILY [facility] Last Admin: 09/11/17 13:04 Dose: 1 applic Dextrose (D50w (Vial) -) 25 gm IVPUSH PRN PRN PRN Reason: hypoglycemia Digoxin (Lanoxin -) 0.25 mg PO DAILY [facility] Last Admin: 09/11/17 10:08 Dose: 0.25 mg Hydrocortisone Sodium Succinate (Solu-Cortef -) 100 mg IVPUSH Q8H-IV [facility] Last Admin: 09/12/17 02:50 Dose: 100 mg Sodium Chloride (Normal Saline -) 1,000 mls @ 75 mls/hr IV ASDIR [facility] Last Admin: 09/12/17 06:33 Dose: 75 mls/hr Ceftriaxone Sodium 2 gm/ (Dextrose) 100 mls @ 200 mls/hr IVPB DAILY [facility] Last Admin: 09/11/17 13:00 Dose: 200 mls/hr Insulin Aspart (Novolog Vial Sliding Scale -) 1 vial SQ ACHS [facility] PRN Reason: Protocol Last Admin: 09/12/17 06:32 Dose: Not Given Non-Formulary Medication (Fluticasone/Vilanterol [Breo Ellipta 200-25 Mcg Inh]) 1 each IH DAILY [facility] - Objective Vital Signs: Vital Signs Temperature 98.5 F 09/12/17 02:00 Pulse Rate 106 H 09/12/17 08:21 Respiratory Rate 18 09/12/17 04:00 Blood Pressure 106/90 09/12/17 04:00 O2 Sat by Pulse Oximetry (%) 99 09/12/17 08:21 Cardiovascular: Yes: Murmur, S1, S2 Respiratory: Yes: Regular, CTA Bilaterally Gastrointestinal: Yes: Normal Bowel Sounds, Soft, Tenderness, Other (UMBILICAL HERNIA) Labs: CBC, BMP 09/12/17 05:05 09/12/17 05:05 INR, PTT INR 1.36 (0.82-1.09) H D 09/09/17 13:47 Problem List - Problems (1) Hypotension Assessment/Plan: R/O SEPSIS VS ADRENAL INSUFICIENCY ON STEROIDS MONITOR BP HOLD DIURETICS ENDO AWAIT CORTISOL LEVEL ON STEROIDS Code(s): I95.9 - HYPOTENSION, UNSPECIFIED (2) CHF (congestive heart failure) Assessment/Plan: EUVOLEMIC HOLD DIURETICS GENTLE HYDRATION CADIO Code(s): I50.9 - HEART FAILURE, UNSPECIFIED (3) Atrial fibrillation Assessment/Plan: ON ELIQUIS Code(s): I48.91 - UNSPECIFIED ATRIAL FIBRILLATION Qualifiers: Atrial fibrillation type: chronic Qualified Code(s): I48.2 - Chronic atrial fibrillation (4) COPD (chronic obstructive pulmonary disease) Assessment/Plan: NEBS PULM Code(s): J44.9 - CHRONIC OBSTRUCTIVE PULMONARY DISEASE, UNSPECIFIED Qualifiers: COPD type: unspecified COPD Qualified Code(s): J44.9 - Chronic obstructive pulmonary disease, unspecified (5) Diabetes mellitus Assessment/Plan: BGM SS Code(s): E11.9 - TYPE 2 DIABETES MELLITUS WITHOUT COMPLICATIONS Qualifiers: Diabetes mellitus type: type 2 (6) Morbid obesity Code(s): E66.01 - MORBID (SEVERE) OBESITY DUE TO EXCESS CALORIES (7) Umbilical hernia Assessment/Plan: TENDER ON EXAM\ SURGICAL CONSULT Code(s): K42.9 - UMBILICAL HERNIA WITHOUT OBSTRUCTION OR GANGRENE Qualifiers: Obstruction and gangrene presence: without obstruction or gangrene Qualified Code(s): K42.9 - Umbilical hernia without obstruction or gangrene
--- NOTE | 2017-09-12 09:19 | PN ---
Progress Note, Physician Chief Complaint: hypotension History of Present Illness: much less weak today. no cp, no sob/orthopnea (laying flat), no palpitations - Current Medication List Current Medications: Active Medications Acetaminophen (Tylenol -) 650 mg PO Q6H [facility] Last Admin: 09/12/17 01:45 Dose: Not Given Albuterol/Ipratropium (Duoneb -) 1 amp NEB RQID [facility] Last Admin: 09/12/17 07:40 Dose: 1 amp Amino Acids (Prosource No Carb Liquid Pkt) 30 ml PO BID@0800,1730 [facility] Apixaban (Eliquis -) 5 mg PO BID [facility] Last Admin: 09/11/17 22:22 Dose: 5 mg Atorvastatin Calcium (Lipitor -) 40 mg PO HS [facility] Last Admin: 09/11/17 22:10 Dose: 40 mg Clotrimazole (Lotrimin 1% Cream -) 1 applic TP DAILY [facility] Last Admin: 09/11/17 13:04 Dose: 1 applic Dextrose (D50w (Vial) -) 25 gm IVPUSH PRN PRN PRN Reason: hypoglycemia Digoxin (Lanoxin -) 0.25 mg PO DAILY [facility] Last Admin: 09/11/17 10:08 Dose: 0.25 mg Hydrocortisone Sodium Succinate (Solu-Cortef -) 100 mg IVPUSH Q8H-IV [facility] Last Admin: 09/12/17 02:50 Dose: 100 mg Sodium Chloride (Normal Saline -) 1,000 mls @ 75 mls/hr IV ASDIR [facility] Last Admin: 09/12/17 06:33 Dose: 75 mls/hr Ceftriaxone Sodium 2 gm/ (Dextrose) 100 mls @ 200 mls/hr IVPB DAILY [facility] Last Admin: 09/11/17 13:00 Dose: 200 mls/hr Insulin Aspart (Novolog Vial Sliding Scale -) 1 vial SQ ACHS [facility] PRN Reason: Protocol Last Admin: 09/12/17 06:32 Dose: Not Given Non-Formulary Medication (Fluticasone/Vilanterol [Breo Ellipta 200-25 Mcg Inh]) 1 each IH DAILY [facility] - Objective Vital Signs: Vital Signs Temperature 98.5 F 09/12/17 02:00 Pulse Rate 106 H 09/12/17 08:21 Respiratory Rate 18 09/12/17 04:00 Blood Pressure 106/90 09/12/17 04:00 O2 Sat by Pulse Oximetry (%) 99 09/12/17 08:21 Constitutional: Yes: Well Nourished, No Distress, Calm Cardiovascular: Yes: Pulse Irregular (soft), S1, S2. No: JVD, Gallop, Murmur Respiratory: Yes: Regular, CTA Bilaterally. No: Accessory Muscle Use, Rales, Wheezes Extremities: No: Cold Edema: No Neurological: Yes: Alert, Oriented Psychiatric: No: Agitated Labs: CBC, BMP 09/12/17 05:05 09/12/17 05:05 INR, PTT INR 1.36 (0.82-1.09) H D 09/09/17 13:47 - ....Imaging EKG: Other (tele: afib 100s, at times to 130s-150s) Assessment/Plan Echo 08/28: TDS. nl LV size. prob nl LVSF. RV tds. valves TDS. Echo 07/2016: Nl lv/rv. 1+ AR mibi 12/2012: small posterior ischemia vs artifact, nl lvef, no tid cxr: incr markings diffusely, no infiltrate/effusions--no change vs prior EKG 09/09: afib; nonsp ST-Ts diffusely, slightly more pronounced than prior a/p: 72 yo male with h/o AFib s/p prior DCCV 12/2015 to SR on AC, HTN, HL, dchf , PVCs with palpitations, morbid obesity, LUCY on bipap, severe COPD, here with sob. hypotension, urosepsis: -urine growing E. coli (ESBL) -hemodynamics improved, now with sbp 110s off IVF. -abx per critical care. -? wean stress dose steroids--per critical care -no ischemic ecg changes, trop neg x 2 -holding CCB, BB, diuretics for now chronic diastolic chf: - 07/28 copd admit with marked pedal edema treated with lasix--d/c wt 314. sent out on lasix 40 po bid. - 08/28 admit with prolonged volume-up during last admit 08/28 (in setting of peristent rapid AF), requiring lasix 100 iv bid for diuresis. - new dry wt on last discharge 287 lbs (+signif muscle atrophy from prolonged bedbound state). - no accurate weight here yet (cannot stand) - discharged on torsemide 100 qd, holding currently for hypotension - continues to appear euvolemic. off IVF now paroxysmal AF/flutter: -on eliquis for AC -new dx 2015--recurred soon after initially successful DCCV plus amio then ( amio stopped given risks of pulm toxicity) -HR persistently rapid last admit 08/28 despite home regimen verapamil 240 bid plus digoxin continued--? was exacerbating refractory diast chf. -dig increased to 0.25 qd (level WNL), metoprolol 25mg qd added-->HR improved significantly -plan was to continue same meds and, if HR remains mostly <110-120 and no signf this was causing refractory/recurrent HF, would defer AVN ablation/PPM -presently, holding verapamil and metoprolol given hypotension, HR currently remains stable -HRs rapid overnight 09/10, did not receive digoxin yesterday. -09/11: HR currently controlled. dig level 1.3--cont same dose (0.25mg qd) given necessity for for AF control to minimize future CHF exacerbations -09/12: HR remains rapid at times, mostly acceptable tachy burden. continue digoxin. BP improving with tx of urosepsis. expect will be able to resume verapamil and metoprolol in 24-48 hrs copd: - ? end-stage copd at this point, freq admits - per pulm deconditioning, hypoalbuminemia: -nutrition per critical care hld: -continue home statin htn: -low bp's here, workup ongoing as above -holding meds as necessary possible cad: -pt had borderline positive mibi in 2012 vs soft tissue attenuation artifact -never had angina sx's -ECG nonsp ST-T no signif change vs prior. trop neg x2. no anginal sx's -continue medical management with statin, AC without ASA estimated time spent in pt exam, data review, and formulating mgmt plan of potentially life threatening medical problems = 35 min
[2017-09-12] MEDS ORDERED: PT OWN MED DRAWER 7, Y5N ONE ×2 (10:25→21:10)
[2017-09-12] MEDS: CEFTRIAXONE 2 GM in DEXTROSE 5%-WATER - 100 ML IVPB SCH (10:42)
[2017-09-12] MEDS: AMINO ACIDS/PROTEIN HYDROLYS 30 ML LIQUID.PKT PO SCH ×2 (10:42→17:36)
[2017-09-12] MEDS: CLOTRIMAZOLE 1% CREAM 15 GM TUBE TP SCH (10:42)
[2017-09-12] MEDS: APIXABAN 5 MG TABLET PO SCH ×2 (10:46→21:37)
[2017-09-12] MEDS: DIGOXIN 0.125 MG TABLET (FP) PO SCH (10:47)
--- NOTE | 2017-09-12 12:17 | PN ---
Progress Note (short form) - Note Progress Note: ID consult dictated imp/reccd 72 year old man admitted from [facility] with hypotension- not on diuretics at the [facility] noted to have pyuria and started on rocephin he was admitted to ICU with SOB and hypotension, temp 100.3, lactic acid 2.5 now with ECOLI ESBL in urine, on stress dose steroids he is awake and alert no fevers (on steroids) sepsis/ecoli esbl uti hypotension chf copd plan switch to ertapenem consider steroid taper contact isolation Problem List - Problems (1) Sepsis Code(s): A41.9 - SEPSIS, UNSPECIFIED ORGANISM (2) UTI (urinary tract infection) Code(s): N39.0 - URINARY TRACT INFECTION, SITE NOT SPECIFIED (3) Infection due to ESBL-producing Escherichia coli Code(s): A49.8 - OTHER BACTERIAL INFECTIONS OF UNSPECIFIED SITE; Z16.12 - EXTENDED SPECTRUM BETA LACTAMASE (ESBL) RESISTANCE (4) CHF (congestive heart failure) Code(s): I50.9 - HEART FAILURE, UNSPECIFIED (5) COPD (chronic obstructive pulmonary disease) Code(s): J44.9 - CHRONIC OBSTRUCTIVE PULMONARY DISEASE, UNSPECIFIED
--- NOTE | 2017-09-12 12:24 | CONSULT ---
Admitting History and Physical - Primary Care Physician PCP: Bo Desai - Admission History of Present Illness: 72 yo male with h/o AFib, HTN,morbid obesity, LUCY on bipap, severe COPD, admitted with lethargy/SOB. sepsis/ecoli esbl uti hypotension chf copd Selected Entries 09/10/17 09/11/17 09/11/17 18:40 02:00 06:00 Lunch Supper 25% Temperature 97.4 F L 98.1 F 09/11/17 09/11/17 09/11/17 10:00 14:00 18:00 Lunch 25% Supper Temperature 99.5 F 98.2 F 98.2 F 09/11/17 09/12/17 09/12/17 22:00 02:00 08:00 Lunch Supper Temperature 98.3 F 98.5 F 97.4 F L 09/12/17 10:00 Lunch Supper Temperature 97.4 F L Laboratory Tests 09/09/17 09/10/17 09/11/17 13:47 09:10 05:26 WBC 12.8 H 11.7 H 10.5 H 09/12/17 05:05 WBC 13.2 H Pt reports loss of appetite. When observed eating, pt grimaces and closes eyes He admits that solid food "chokes him" however he does not like chopped food, previously received. 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 No: Cancer Gastrointestinal: Yes: GERD Hepatobiliary: No: Cirrhosis, Cholelithiasis, Cholecystitis, Choledocholithiasis , Hepatitis A, Hepatitis B, Hepatitis C, Other Renal/: Yes: Renal Inusuff Heme/Onc: No: Anemia, B12 Deficiency, Bleeding Disorder, Cancer, Current Chemotherapy, Current Radiation Therapy, Hemochromatosis, Hypercoaguable State, Myeloproliferative Synd, Sickle Cell Disease, Sickle Cell Trait, Thrombocytopenia, Other Infectious Disease: No: AIDS, C-Diff, Herpes Zoster, HIV, MRSA, STD's, Tuberculosis, VREF, Other Psych: No: Addictions, Anxiety, Bipolar, Depression, Panic, Psychosis, Schizophrenia, Other Musculoskeletal: No: Bursitis, Chronic low back pain, Hemiparesis, Hemiplegia, Osteoarthritis, Paraplegia, Other Rheumatology: No: Fibromyalgia, Gout, Lupus, Rheumatoid Arthritis, Sarcoidosis, Vasculitis, Other ENT: No: Allergic Rhinitis, Sinusitis, Other Endocrine: Yes: Other (MORBIDLY OBESE) Dermatology: No: Basal Cell, Cellulitis, Eczema, Melanoma, Psoriasis, Squamous Cell, Other - Past Surgical History Past Surgical History: Yes: Tonsillectomy - Smoking History Smoking history: Former smoker Have you smoked in the past 12 months: No Aproximately how many cigarettes per day: 0 If you are a former smoker, when did you quit?: 6 years ago - Alcohol/Substance Use Hx Alcohol Use: No - Social History ADL: Independent Occupation: retired History of Recent Travel: No History - Admission Reason For Visit: DEHYDRATION - Diagnostics X-ray: Report Reviewed (cxr (-) x 2.) - General Mental Status: Alert and Oriented, Awake and Alert, Able to Follow Commands Attention: Intact Ability to Follow Directions: Good Head/Neck Control: WFL - Hearing Hearing: Normal Hearing Aide: No With Patient: No Speech Evaluation - Communication Primary Language: [place] Communication: Yes: Within Normal Limits Oral Expression Ability: Yes: No Impairment - Speech Production Able to Make Needs Known: Yes: WNL Intelligibility: Yes: WNL - Language/Auditory Comprehension Follows: Yes: 1 Stage Simple Commands - Language/Verbal Expression Able to Respond to Simple Queries: Yes: WNL Able to Communicate Wants and Needs: Yes: WNL Functional Communication Status: Yes: WNL Attention: Yes: Intact - Swallow Evaluation/Bedside Assessment Current Nutritional Intake: Regular, Thin Liquids Oral Secretions: Yes: WFL Dentition: Yes: Missing Teeth Facial Symmetry at Rest: Symmetrical Facial Symmetry on Retraction: Symmetrical Facial Movement: Controlled Sensation: Normal Against Resistance Opening: Normal Against Resistance Closing: Normal Pucker Lips: Normal Smile: Normal Lingual Movement: Normal, Symmetric Lingual Speed of Movement: Normal Lingual Movement Strgth Against Opposition: Normal Lingual Movement Characteristics: Normal Velopharyngeal Movement: Normal Laryngeal Movement: Reduced Excursion, Labored,delay initiation Rate of Intake: Slow/Holding Bolus Size: Small Labial Seal: WFL Chewing: Impaired (slow and extended) Oral Prep Time: Increased A-P Transit: WFL Pocketing: None Timing of Swallow: Delayed Coughing/Throat Clear: Yes (solids) Recommendations - Speech Evaluation, Impression/Plan Impression: Pt reports loss of appetite. When observed eating, pt grimaces and closes eyes He admits that solid food "chokes him" however he does not like chopped food, previously received. r/o pharyngeal/esophageal dysphagia - Dysphagia Impressions/Plan Dysphagia Impressions: Mild Impairment, Moderate Impairment, Risk of Aspiration , Ongoing Evaluation *Silent aspiration: cannot be R/O at bedside Dysphagia Treatment Plan: Small Bites, Chin Tuck/Down, Safe Rate, 1/2 tsp. at a time, Elevate HOB during feed Recommendations: MBS w Esophagus, Other (RD consult) - Recommendations Diet Consistency: Dysphagia Whole (Please eliminate chicken. Trial fish, yogurt , softer moist cohesive foods.) Medication Administration: Crushed with applesauce Liquids: Thin Liquids Supplement: Glucerna
[2017-09-12] MEDS ORDERED: INSULIN (NOVOLOG) ASPART 100 UNITS/ML 10ML VIAL ONE (12:25)
[2017-09-12] MEDS ORDERED: ERTAPENEM SODIUM 1 GM/50 ML PRE-DOCKED IVPB SCH (12:30)
--- NOTE | 2017-09-12 13:00 | PN ---
Teaching Attending Note Name of Resident: Aleena Randle ATTENDING PHYSICIAN STATEMENT I saw and evaluated the patient. I reviewed the resident's note and discussed the case with the resident. I agree with the resident's findings and plan as documented. SUBJECTIVE: Patient seen and examined in the ICU. Awake and alert. Breathing feels stable. Hemodynamics have remained stable. Urinary symptoms are improving. Intake & Output 09/09/17 09/10/17 09/11/17 09/12/17 23:59 23:59 23:59 23:59 Intake Total 550 3145 2670 732.5 Output Total 300 360 Balance 250 2785 2670 732.5 Weight 300 lb 300 lb 280 lb 4.8 oz Last Vital Signs Temp Pulse Resp BP Pulse Ox 97.4 F L 91 H 21 114/68 99 09/12/17 10:00 09/12/17 10:47 09/12/17 10:00 09/12/17 10:00 09/12/17 08:21 Active Medications Acetaminophen (Tylenol -) 650 mg PO Q6H [facility] Last Admin: 09/12/17 10:46 Dose: 650 mg Albuterol/Ipratropium (Duoneb -) 1 amp NEB RQID [facility] Last Admin: 09/12/17 11:48 Dose: 1 amp Amino Acids (Prosource No Carb Liquid Pkt) 30 ml PO BID@0800,1730 [facility] Last Admin: 09/12/17 10:42 Dose: 30 ml Apixaban (Eliquis -) 5 mg PO BID [facility] Last Admin: 09/12/17 10:46 Dose: 5 mg Atorvastatin Calcium (Lipitor -) 40 mg PO HS [facility] Last Admin: 09/11/17 22:10 Dose: 40 mg Clotrimazole (Lotrimin 1% Cream -) 1 applic TP DAILY [facility] Last Admin: 09/12/17 10:42 Dose: 1 applic Dextrose (D50w (Vial) -) 25 gm IVPUSH PRN PRN PRN Reason: hypoglycemia Digoxin (Lanoxin -) 0.25 mg PO DAILY [facility] Last Admin: 09/12/17 10:47 Dose: 0.25 mg Hydrocortisone Sodium Succinate (Solu-Cortef -) 100 mg IVPUSH Q8H-IV [facility] Last Admin: 09/12/17 10:43 Dose: 100 mg Sodium Chloride (Normal Saline -) 1,000 mls @ 75 mls/hr IV ASDIR [facility] Last Admin: 09/12/17 06:33 Dose: 75 mls/hr Ertapenem 1 gm/ Sodium (Chloride) 100 mls @ 200 mls/hr IVPB DAILY [facility] Insulin Aspart (Novolog Vial Sliding Scale -) 1 vial SQ ACHS [facility] PRN Reason: Protocol Last Admin: 09/12/17 12:44 Dose: 2 units Non-Formulary Medication (Fluticasone/Vilanterol [Breo Ellipta 200-25 Mcg Inh]) 1 each IH DAILY [facility] Gen: Awake and alert Heart: RRR Lung: distant breath sounds, no wheezes Abd: soft, nontender Ext: no edema Laboratory Results - last 24 hr 09/09/17 09/10/17 09/11/17 21:36 03:43 11:16 WBC RBC Hgb Hct MCV MCH MCHC RDW Plt Count MPV Neutrophils % Neutrophils % (Manual) Band Neutrophils % Lymphocytes % Lymphocytes % (Manual) Monocytes % (Manual) Platelet Estimate Platelet Comment Sodium Potassium Chloride Carbon Dioxide Anion Gap BUN Creatinine Creat Clearance w eGFR POC Glucometer 36 42 [phone] Random Glucose Calcium Phosphorus Magnesium Total Bilirubin AST ALT Alkaline Phosphatase Total Protein Albumin 09/11/17 09/12/17 09/12/17 16:22 05:05 05:05 WBC 13.2 H RBC 3.78 L Hgb 11.2 L Hct 34.8 L MCV 92.1 MCH 29.8 MCHC 32.3 RDW 23.4 H Plt Count 449 H MPV 7.9 Neutrophils % No Result Required. Neutrophils % (Manual) 90.0 H Band Neutrophils % No Result Required. Lymphocytes % No Result Required. Lymphocytes % (Manual) 4.0 L D Monocytes % (Manual) 4 D Platelet Estimate Slt increase Platelet Comment No clotting detected Sodium 139 Potassium 4.0 Chloride 104 Carbon Dioxide 26 Anion Gap 9 BUN 55 H Creatinine 1.4 H Creat Clearance w eGFR 50.10 POC Glucometer [phone] Random Glucose 106 D Calcium 7.3 L Phosphorus 2.8 D Magnesium 1.4 L D Total Bilirubin 0.8 D AST 23 ALT 73 Alkaline Phosphatase 134 H Total Protein 4.8 L Albumin 1.7 L 09/12/17 05:27 WBC RBC Hgb Hct MCV MCH MCHC RDW Plt Count MPV Neutrophils % Neutrophils % (Manual) Band Neutrophils % Lymphocytes % Lymphocytes % (Manual) Monocytes % (Manual) Platelet Estimate Platelet Comment Sodium Potassium Chloride Carbon Dioxide Anion Gap BUN Creatinine Creat Clearance w eGFR POC Glucometer [phone] Random Glucose Calcium Phosphorus Magnesium Total Bilirubin AST ALT Alkaline Phosphatase Total Protein Albumin A/P UTI Sepsis Lactic Acidosis resolved LV Diastolic Dysfunction COPD Morbid Obesity Obstructive Sleep Apnea Paroxysmal Atrial Fibrillation HTN Hyperlipidemia - Continue ABX coverage - f/u final cultures - Taper stress dose steroids - inhaled bronchodilators - O2 to keep SpO2 >90% - NIPPV to assist in work of breathing - rate control - continue anticoagulation - Cardiac Telemetry monitoring Dr Emanuel Critical care time spent in reviewing chart, evaluating patient and formulating plan 36 min
[2017-09-12] MEDS ORDERED: POLYETHYLENE GLYCOL 3350 119 GM BTL PO SCH (13:15)
[2017-09-12] MEDS: ERTAPENEM SODIUM 1 GM in SODIUM CHLORIDE 100 ML IVPB SCH (13:54)
--- NOTE | 2017-09-12 15:29 | CONS ---
DATE OF CONSULTATION: HISTORY: This is a 72-year-old man with a history of COPD and CHF recently hospitalized and discharged to the [facility] for rehabilitation. While at the [facility], he reports he had severe hypotension. Hypotension persisted. He denies any other associated symptoms except lethargy. He denies any nausea, vomiting, diarrhea, or dysuria. He was transferred to the hospital where systolic blood pressure was 80. He had a temperature of 100.4. Lactic acid at 2.5. He was admitted to the ICU where he received IV fluids. He received stress dose steroids in treatment of his COPD. Of note, he did complain of shortness of breath. PAST MEDICAL HISTORY: Notable for obstructive sleep apnea. He uses BiPAP. He has advanced COPD on oxygen at home, atrial fibrillation, hypertension, hyperlipidemia, CHF, GERD, morbid obesity, diastolic heart failure. He has a history of tonsillectomy as well. SOCIAL HISTORY: He is a former smoker. He quit 6 years ago. He usually lives alone. He is retired but after his last discharge, he was discharged August 17 to [facility] for rehabilitation. MEDICATIONS: At the time of admission included verapamil, acetaminophen, prednisone 5 mg daily, atorvastatin, Flomax, insulin, Eliquis, DuoNebs, Breo, and Amaryl. ALLERGIES: He has no known drug allergies. REVIEW OF SYSTEMS: He reports he was quite hypotensive at the [facility]. He is not clear why. He denies currently any diarrhea or dysuria. no fevers or chills PHYSICAL EXAMINATION: Vital Signs: Current temperature is 97.4, his T-max was on admission 100.3, pulse 91, blood pressure 114/68, respiratory rate 21. He is on BiPAP saturating 99% on 30%. General: Awake and alert. HEENT: Normocephalic. Eyes are anicteric. Neck: Supple. Lungs: Diminished breath sounds at the bases. Heart: Regular rate and rhythm. Abdomen: Soft and nontender. He has no suprapubic or CVA pain. He has a small periumbilical hernia that is soft, nontender. There is no associated erythema. Currently dry. No drainage. Extremities: Without edema. White count 13.2, hemoglobin 11.2, platelets 449, BUN 55, creatinine 1.4. LFTs are notable for alkaline phosphatase of 134. Urinalysis has 3+ leukocytes with 145 white cells. Blood cultures are negative. Urine culture is growing Escherichia coli ESBL with greater than 100,000 colonies. Chest x-ray shows no infiltrate. In summary, this is a 72-year-old man admitted with: 1. Hypotensive, sepsis probably related to pyuria secondary to UTI. He has an Escherichia coli ESBL urinary tract infection. 2. Hypotension, resolved. 3. CHF. 4. COPD. 5. Obstructive sleep apnea. Would maintain contact isolation. Would switch him to ertapenem at this time and consider steroid taper. TAIWO LANGLEY M.D. [id number]
--- NOTE | 2017-09-12 16:13 | CONSULT ---
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 No: Cancer Gastrointestinal: Yes: GERD Hepatobiliary: No: Cirrhosis, Cholelithiasis, Cholecystitis, Choledocholithiasis , Hepatitis A, Hepatitis B, Hepatitis C, Other Renal/: Yes: Renal Inusuff Infectious Disease: No: AIDS, C-Diff, Herpes Zoster, HIV, MRSA, STD's, Tuberculosis, VREF, Other Psych: No: Addictions, Anxiety, Bipolar, Depression, Panic, Psychosis, Schizophrenia, Other Musculoskeletal: No: Bursitis, Chronic low back pain, Hemiparesis, Hemiplegia, Osteoarthritis, Paraplegia, Other Rheumatology: No: Fibromyalgia, Gout, Lupus, Rheumatoid Arthritis, Sarcoidosis, Vasculitis, Other ENT: No: Allergic Rhinitis, Sinusitis, Other Endocrine: Yes: Other (MORBIDLY OBESE) Dermatology: No: Basal Cell, Cellulitis, Eczema, Melanoma, Psoriasis, Squamous Cell, Other - Past Surgical History Past Surgical History: Yes: Tonsillectomy - Alcohol/Substance Use Hx Alcohol Use: No - Smoking History Smoking history: Former smoker Have you smoked in the past 12 months: No Aproximately how many cigarettes per day: 0 If you are a former smoker, when did you quit?: 6 years ago - Social History Usual Living Arrangement: Intermediate ADL: Independent Occupation: retired History of Recent Travel: No Home Medications - Allergies Allergies/Adverse Reactions: Allergies Allergy/AdvReac Type Severity Reaction Status Date / Time No Known Allergies Allergy Verified 07/30/17 11:13 - Home Medications Home Medications: Ambulatory Orders Acetaminophen 650 mg PO Q6H 09/09/17 Albuterol 2.5/Ipratropium 0.5 [Duoneb -] 1 neb IH QID 09/09/17 Apixaban [Eliquis -] 5 mg PO DAILY 09/09/17 Atorvastatin Ca [Lipitor] 40 mg PO HS 09/09/17 Clotrimazole 15 gm TP DAILY 09/09/17 Fluticasone/Vilanterol [Breo Ellipta 200-25 Mcg INH] 1 each IH DAILY 09/09/17 Glimepiride [Amaryl] 2 mg PO AM 09/09/17 Insulin (Levemir) [Levemir Vial] 30 units SQ BID 09/09/17 Lanolin Alcohol/Mo/W.pet/[place] [Eucerin Creme] 113 gm TP DAILY 09/09/17 Lidocaine 2% Viscous Oral [Xylocaine 2% Viscous Oral -] 15 ml PO TID 09/09/17 Povidone-Iodine [Betadine] 1 each TP DAILY 09/09/17 Tamsulosin HCl [Flomax] 0.4 mg PO DAILY 09/09/17 Torsemide 100 mg PO DAILY 09/09/17 Verapamil HCl [Calan Sr] 240 mg PO DAILY 09/09/17 predniSONE [Deltasone -] 5 mg PO DAILY 09/09/17 Review of Systems - Review of Systems Constitutional: denies: Chills Cardiovascular: denies: Chest Pain Gastrointestinal: denies: Abdominal Pain, Vomiting Pain Intensity: 0 Physical Exam Vital Signs: Vital Signs Temperature 98.0 F 09/12/17 14:00 Pulse Rate 105 H 09/12/17 14:00 Respiratory Rate 15 09/12/17 14:00 Blood Pressure 113/74 09/12/17 14:00 O2 Sat by Pulse Oximetry (%) 99 09/12/17 08:21 Cardiovascular: Yes: WNL Respiratory: Yes: Diminished Gastrointestinal: Yes: Soft, Abdomen, Obese, Other (+ umbilical hernia + purulent drainage). No: Tenderness Neurological: Yes: Alert, Oriented Labs: CBC, BMP 09/12/17 05:05 09/12/17 05:05 Problem List - Problems (1) Umbilical discharge Code(s): R19.8 - OTH SYMPTOMS AND SIGNS INVOLVING THE DGSTV SYS AND ABDOMEN Assessment/Plan Umbilical discharge x [address] A/P with Po gastrograffin/IV contrast Possible sinus vs urachal cyst vs fistula? Antibiotics per ID Wound care
--- NOTE | 2017-09-12 16:22 | PN ---
Progress Note, Physician History of Present Illness: Pt seen and examined at bedside. He says that he feels better today. He denies shortness of breath. He was hypotensive when they sent him in. - Current Medication List Current Medications: Active Medications Acetaminophen (Tylenol -) 650 mg PO Q6H [facility] Last Admin: 09/12/17 13:58 Dose: 650 mg Albuterol/Ipratropium (Duoneb -) 1 amp NEB RQID [facility] Last Admin: 09/12/17 11:48 Dose: 1 amp Amino Acids (Prosource No Carb Liquid Pkt) 30 ml PO BID@0800,1730 [facility] Last Admin: 09/12/17 10:42 Dose: 30 ml Apixaban (Eliquis -) 5 mg PO BID [facility] Last Admin: 09/12/17 10:46 Dose: 5 mg Atorvastatin Calcium (Lipitor -) 40 mg PO HS [facility] Last Admin: 09/11/17 22:10 Dose: 40 mg Clotrimazole (Lotrimin 1% Cream -) 1 applic TP DAILY [facility] Last Admin: 09/12/17 10:42 Dose: 1 applic Dextrose (D50w (Vial) -) 25 gm IVPUSH PRN PRN PRN Reason: hypoglycemia Digoxin (Lanoxin -) 0.25 mg PO DAILY [facility] Last Admin: 09/12/17 10:47 Dose: 0.25 mg Hydrocortisone Sodium Succinate (Solu-Cortef -) 100 mg IVPUSH Q8H-IV [facility] Last Admin: 09/12/17 10:43 Dose: 100 mg Sodium Chloride (Normal Saline -) 1,000 mls @ 75 mls/hr IV ASDIR [facility] Last Admin: 09/12/17 06:33 Dose: 75 mls/hr Ertapenem 1 gm/ Sodium (Chloride) 100 mls @ 200 mls/hr IVPB DAILY [facility] Last Admin: 09/12/17 13:54 Dose: 200 mls/hr Insulin Aspart (Novolog Vial Sliding Scale -) 1 vial SQ ACHS [facility] PRN Reason: Protocol Last Admin: 09/12/17 12:44 Dose: 2 units Non-Formulary Medication (Fluticasone/Vilanterol [Breo Ellipta 200-25 Mcg Inh]) 1 each IH DAILY [facility] Polyethylene Glycol (Miralax (For Daily Use) -) 17 gm PO DAILY [facility] Last Admin: 09/12/17 13:58 Dose: 17 gm - Objective Vital Signs: Vital Signs Temperature 98.0 F 09/12/17 14:00 Pulse Rate 105 H 09/12/17 14:00 Respiratory Rate 15 09/12/17 14:00 Blood Pressure 113/74 09/12/17 14:00 O2 Sat by Pulse Oximetry (%) 99 09/12/17 08:21 Constitutional: Yes: Calm Eyes: Yes: Conjunctiva Clear HENT: Yes: Atraumatic Cardiovascular: Yes: S1, S2 Respiratory: Yes: On BiPap, On Nasal O2 Gastrointestinal: Yes: Soft, Abdomen, Obese Genitourinary: Yes: Incontinence Musculoskeletal: Yes: WNL Edema: Yes Edema: LLE: Trace, RLE: Trace Neurological: Yes: Oriented Psychiatric: Yes: Oriented Labs: CBC, BMP 09/12/17 05:05 09/12/17 05:05 INR, PTT INR 1.36 (0.82-1.09) H D 09/09/17 13:47 Problem List - Problems (1) CHF (congestive heart failure) Code(s): I50.9 - HEART FAILURE, UNSPECIFIED (2) COPD (chronic obstructive pulmonary disease) Code(s): J44.9 - CHRONIC OBSTRUCTIVE PULMONARY DISEASE, UNSPECIFIED (3) Hypotension Code(s): I95.9 - HYPOTENSION, UNSPECIFIED (4) Sepsis Code(s): A41.9 - SEPSIS, UNSPECIFIED ORGANISM Assessment/Plan Current Medications Generic Name Dose Route Start Last Admin Trade Name Louisq PRN Reason Stop Dose Admin Acetaminophen 650 mg 09/09/17 19:45 09/12/17 13:58 Tylenol - PO 650 mg Q6H [facility] Administration Albuterol/Ipratropium 1 amp 09/09/17 20:00 09/12/17 11:48 Duoneb - NEB 1 amp RQID [facility] Administration Amino Acids 30 ml 09/12/17 08:00 09/12/17 10:42 Prosource No Carb Liquid Pkt PO 30 ml BID@0800,1730 [facility] Administration Apixaban 5 mg 09/09/17 22:00 09/12/17 10:46 Eliquis - PO 5 mg BID [facility] Administration Atorvastatin Calcium 40 mg 09/09/17 22:00 09/11/17 22:10 Lipitor - PO 40 mg HS [facility] Administration Clotrimazole 1 applic 09/10/17 10:00 09/12/17 10:42 Lotrimin 1% Cream - TP 1 applic DAILY [facility] Administration Dextrose 25 gm 09/10/17 08:24 D50w (Vial) - IVPUSH PRN PRN hypoglycemia Digoxin 0.25 mg 09/11/17 10:00 09/12/17 10:47 Lanoxin - PO 0.25 mg DAILY [facility] Administration Hydrocortisone Sodium Succinate 100 mg 09/10/17 13:45 09/12/17 10:43 Solu-Cortef - IVPUSH 100 mg Q8H-IV [facility] Administration Sodium Chloride 1,000 mls @ 75 mls/hr 09/11/17 06:00 09/12/17 06:33 Normal Saline - IV 75 mls/hr ASDIR [facility] Administration Ertapenem 1 gm/ Sodium 100 mls @ 200 mls/hr 09/12/17 12:45 09/12/17 13:54 Chloride IVPB 200 mls/hr DAILY [facility] Administration Insulin Aspart 1 vial 09/09/17 22:00 09/12/17 12:44 Novolog Vial Sliding Scale - SQ 2 units ACHS [facility] Administration Protocol Non-Formulary Medication 1 each 09/10/17 10:00 Fluticasone/Vilanterol [Breo Ellipta 200-25 Mcg Inh] IH DAILY [facility] Polyethylene Glycol 17 gm 09/12/17 13:15 09/12/17 13:58 Miralax (For Daily Use) - PO 17 gm DAILY [facility] Administration Impression 1. SHAKIR 2. CHF 3. obstructive sleep apnea 4. obesity 5. DM 6. HTN 7. hyperlipidemia 8. resp failure requiring bipap 9. sepsis 10. UTI Plan - check renal ultrasound - repeat labs in am - can keep on fluids for now - ID follow up for abx - discussed with ICU team Dr Aguilar
[2017-09-12] MEDS ORDERED: HEMOQUE TEST 1 EACH EACH ONE (21:28)
[2017-09-12] MEDS: ATORVASTATIN CA 40 MG TABLET (FP) PO SCH (21:37)
--- NOTE | 2017-09-13 00:15 | CONSULT ---
Consult Consult Specialty:: endocrine Referred by:: dr.[email or web address] kate Reason for Consultation:: adrenal insuficiency - History of Present Illness Chief Complaint: weakness History of Present Illness: 72y male pMh ,pulmonary hypertension, CHF, COPD, GERD, kidney failure, D2M, HLD , aFib admitted for altered mental status. intermediate paper work states that the patient was found with a decreased level of consciousness. Paperwork described patient as lethargic, but still responsive to name, tactile, and painful. Glucose was 73,had long history of steroid use in past for copd,had developed hypotension,weakness lethary off steroids. 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 No: Cancer Gastrointestinal: Yes: GERD Hepatobiliary: No: Cirrhosis, Cholelithiasis, Cholecystitis, Choledocholithiasis , Hepatitis A, Hepatitis B, Hepatitis C, Other Renal/: Yes: Renal Inusuff Infectious Disease: No: AIDS, C-Diff, Herpes Zoster, HIV, MRSA, STD's, Tuberculosis, VREF, Other Psych: No: Addictions, Anxiety, Bipolar, Depression, Panic, Psychosis, Schizophrenia, Other Musculoskeletal: No: Bursitis, Chronic low back pain, Hemiparesis, Hemiplegia, Osteoarthritis, Paraplegia, Other Rheumatology: No: Fibromyalgia, Gout, Lupus, Rheumatoid Arthritis, Sarcoidosis, Vasculitis, Other ENT: No: Allergic Rhinitis, Sinusitis, Other Endocrine: Yes: Other (MORBIDLY OBESE) Dermatology: No: Basal Cell, Cellulitis, Eczema, Melanoma, Psoriasis, Squamous Cell, Other - Past Surgical History Past Surgical History: Yes: Tonsillectomy - Alcohol/Substance Use Hx Alcohol Use: No - Smoking History Smoking history: Former smoker Have you smoked in the past 12 months: No Aproximately how many cigarettes per day: 0 If you are a former smoker, when did you quit?: 6 years ago - Social History Usual Living Arrangement: Jail ADL: Independent Occupation: retired History of Recent Travel: No Home Medications - Allergies Allergies/Adverse Reactions: Allergies Allergy/AdvReac Type Severity Reaction Status Date / Time No Known Allergies Allergy Verified 07/30/17 11:13 - Home Medications Home Medications: Ambulatory Orders Acetaminophen 650 mg PO Q6H 09/09/17 Albuterol 2.5/Ipratropium 0.5 [Duoneb -] 1 neb IH QID 09/09/17 Apixaban [Eliquis -] 5 mg PO DAILY 09/09/17 Atorvastatin Ca [Lipitor] 40 mg PO HS 09/09/17 Clotrimazole 15 gm TP DAILY 09/09/17 Fluticasone/Vilanterol [Breo Ellipta 200-25 Mcg INH] 1 each IH DAILY 09/09/17 Glimepiride [Amaryl] 2 mg PO AM 09/09/17 Insulin (Levemir) [Levemir Vial] 30 units SQ BID 09/09/17 Lanolin Alcohol/Mo/W.pet/[place] [Eucerin Creme] 113 gm TP DAILY 09/09/17 Lidocaine 2% Viscous Oral [Xylocaine 2% Viscous Oral -] 15 ml PO TID 09/09/17 Povidone-Iodine [Betadine] 1 each TP DAILY 09/09/17 Tamsulosin HCl [Flomax] 0.4 mg PO DAILY 09/09/17 Torsemide 100 mg PO DAILY 09/09/17 Verapamil HCl [Calan Sr] 240 mg PO DAILY 09/09/17 predniSONE [Deltasone -] 5 mg PO DAILY 09/09/17 Review of Systems - Review of Systems Constitutional: reports: Lethargy, Weakness Eyes: reports: No Symptoms HENT: reports: No Symptoms Neck: reports: No Symptoms Cardiovascular: reports: Shortness of Breath Respiratory: reports: Exercise Intolerance, SOB on Exertion Gastrointestinal: reports: Bloating, Nausea Genitourinary: reports: No Symptoms Breasts: reports: No Symptoms Reported Musculoskeletal: reports: Muscle Weakness Endocrine: reports: Intolerance to Cold Physical Exam Vital Signs: Vital Signs Temperature 98.1 F 09/12/17 22:00 Pulse Rate 90 09/13/17 00:00 Respiratory Rate 13 09/13/17 00:00 Blood Pressure 111/65 09/13/17 00:00 O2 Sat by Pulse Oximetry (%) 99 09/12/17 21:00 Constitutional: Yes: Calm Eyes: Yes: EOM Intact HENT: Yes: Normocephalic Neck: Yes: Trachea Midline Cardiovascular: Yes: Regular Rate and Rhythm Respiratory: Yes: CTA Bilaterally Gastrointestinal: Yes: Normal Bowel Sounds ...Rectal Exam: Yes: Deferred Renal/: Yes: WNL Breast(s): Yes: WNL Musculoskeletal: Yes: WNL Edema: No Neurological: Yes: WNL, Alert Labs: CBC, BMP 09/12/17 05:05 09/12/17 05:05 Problem List - Problems (1) CHF (congestive heart failure) Code(s): I50.9 - HEART FAILURE, UNSPECIFIED (2) COPD (chronic obstructive pulmonary disease) Code(s): J44.9 - CHRONIC OBSTRUCTIVE PULMONARY DISEASE, UNSPECIFIED (3) Hypotension Code(s): I95.9 - HYPOTENSION, UNSPECIFIED (4) Infection due to ESBL-producing Escherichia coli Code(s): A49.8 - OTHER BACTERIAL INFECTIONS OF UNSPECIFIED SITE; Z16.12 - EXTENDED SPECTRUM BETA LACTAMASE (ESBL) RESISTANCE (5) Umbilical discharge Code(s): R19.8 - OTH SYMPTOMS AND SIGNS INVOLVING THE DGSTV SYS AND ABDOMEN Assessment/Plan Current Active Problems CHF (congestive heart failure) (Acute) COPD (chronic obstructive pulmonary disease) (Acute) Dehydration (Acute) Hypotension (Acute) Infection due to ESBL-producing Escherichia coli (Acute) Sepsis (Acute) UTI (urinary tract infection) (Acute) Umbilical discharge (Acute) Abnormal Lab Results 09/12/17 09/12/17 05:05 05:05 WBC 13.2 H RBC 3.78 L Hgb 11.2 L Hct 34.8 L RDW 23.4 H Plt Count 449 H Neutrophils % (Manual) 90.0 H Lymphocytes % (Manual) 4.0 L D BUN 55 H Creatinine 1.4 H Calcium 7.3 L Magnesium 1.4 L D Alkaline Phosphatase 134 H Total Protein 4.8 L Albumin 1.7 L Laboratory Results - last 24 hr 09/09/17 09/10/17 09/11/17 21:36 03:43 05:26 WBC RBC Hgb Hct MCV MCH MCHC RDW Plt Count MPV Neutrophils % Neutrophils % (Manual) Band Neutrophils % Lymphocytes % Lymphocytes % (Manual) Monocytes % (Manual) Platelet Estimate Platelet Comment Sodium Potassium Chloride Carbon Dioxide Anion Gap BUN Creatinine Creat Clearance w eGFR POC Glucometer 36 42 Random Glucose Calcium Phosphorus Magnesium Total Bilirubin AST ALT Alkaline Phosphatase Total Protein Albumin Cortisol AM Sample 142.5 Cortisol PM Sample 09/12/17 09/12/17 09/12/17 05:05 05:05 05:27 WBC 13.2 H RBC 3.78 L Hgb 11.2 L Hct 34.8 L MCV 92.1 MCH 29.8 MCHC 32.3 RDW 23.4 H Plt Count 449 H MPV 7.9 Neutrophils % No Result Required. Neutrophils % (Manual) 90.0 H Band Neutrophils % No Result Required. Lymphocytes % No Result Required. Lymphocytes % (Manual) 4.0 L D Monocytes % (Manual) 4 D Platelet Estimate Slt increase Platelet Comment No clotting detected Sodium 139 Potassium 4.0 Chloride 104 Carbon Dioxide 26 Anion Gap 9 BUN 55 H Creatinine 1.4 H Creat Clearance w eGFR 50.10 POC Glucometer 142.73235 Random Glucose 106 D Calcium 7.3 L Phosphorus 2.8 D Magnesium 1.4 L D Total Bilirubin 0.8 D AST 23 ALT 73 Alkaline Phosphatase 134 H Total Protein 4.8 L Albumin 1.7 L Cortisol AM Sample Cortisol PM Sample 09/12/17 09/12/17 09/12/17 12:38 16:57 19:30 WBC RBC Hgb Hct MCV MCH MCHC RDW Plt Count MPV Neutrophils % Neutrophils % (Manual) Band Neutrophils % Lymphocytes % Lymphocytes % (Manual) Monocytes % (Manual) Platelet Estimate Platelet Comment Sodium Potassium Chloride Carbon Dioxide Anion Gap BUN Creatinine Creat Clearance w eGFR POC Glucometer 172.64101 159.05575 Random Glucose Calcium Phosphorus Magnesium Total Bilirubin AST ALT Alkaline Phosphatase Total Protein Albumin Cortisol AM Sample Cortisol PM Sample Cancelled 09/12/17 22:21 WBC RBC Hgb Hct MCV MCH MCHC RDW Plt Count MPV Neutrophils % Neutrophils % (Manual) Band Neutrophils % Lymphocytes % Lymphocytes % (Manual) Monocytes % (Manual) Platelet Estimate Platelet Comment Sodium Potassium Chloride Carbon Dioxide Anion Gap BUN Creatinine Creat Clearance w eGFR POC Glucometer [phone] Random Glucose Calcium Phosphorus Magnesium Total Bilirubin AST ALT Alkaline Phosphatase Total Protein Albumin Cortisol AM Sample Cortisol PM Sample plan: adrenal deficiency hypoadrenalism likely need slow taper solucortef to replace with hydrocortisone 25 mg daily po
[2017-09-13] MEDS: ACETAMINOPHEN 325 MG TABLET (FP) PO SCH ×4 (02:00→20:00)
[2017-09-13] MEDS: HYDROCORTISONE SOD SUCCINATE 100 MG/2 ML VIAL IVPUSH SCH ×3 (02:59→19:00)
[2017-09-13] MEDS ORDERED: HEMOQUE CONTROL SOLUTION ONE (03:38)
[2017-09-13 05:59] LABS: HEMATOCRIT 34.4 % (35.4-49); HEMOGLOBIN 11.2 GM/dL (11.7-16.9); MCH 29.9 pg (25.7-33.7); MCHC 32.7 g/dl (32.0-35.9); MEAN CELL VOLUME 91.5 fl (80-96); MEAN PLT VOLUME 7.8 fl (7.5-11.1); PLATELET COUNT 433 K/MM3 (134-434); RBC 3.76 M/mm3 (4.00-5.60); RDW 23.6 % (11.9-15.9)
[2017-09-13 06:17] LABS: INR 1.34 (0.82-1.09); PROTHROMBIN TIME (PATIENT) 15.1 SEC (9.98-11.88)
[2017-09-13 06:19] LABS: ACTIVATED PTT 25.7 SECONDS (26.9-34.4)
[2017-09-13] MEDS: INSULIN SLIDING SCALE (NOVOLOG) 1 VIAL SQ SCH ×4 (06:28→21:23)
[2017-09-13 06:30] LABS: ALBUMIN 1.8 g/dl (3.4-5.0); ANION GAP 11 (8-16); BLOOD UREA NITROGEN 46 mg/dL (7-18); CHLORIDE 104 mmol/L (98-107); CO2 26 mmol/L (21-32); MAGNESIUM 1.6 mg/dL (1.8-2.4); POTASSIUM 3.8 mmol/L (3.5-5.1); SODIUM 141 mmol/L (136-145)
[2017-09-13 06:35] LABS: ALK PHOS 139 U/L (45-117); BILIRUBIN,TOTAL 0.6 mg/dL (0.2-1.0); CREATININE 1.1 mg/dL (0.7-1.3); PHOSPHOROUS 2.2 mg/dL (2.5-4.9); SGOT/AST 25 U/L (15-37); SGPT/ALT 70 U/L (12-78); TOT PROT 5.1 g/dl (6.4-8.2)
[2017-09-13 06:40] LABS: GLUCOSE,RANDOM 43 mg/dL (74-106)
[2017-09-13] MEDS: SODIUM CHLORIDE 1,000 ML IV SCH (06:50)
--- NOTE | 2017-09-13 06:57 | PN ---
Progress Note, Physician History of Present Illness: HPI 72 YOM with h/o CHF, COPD, pulmonary HTN, DM, A-fib, HLD, who was BIBA from SNF for lethargy and hypotension, found to have fever, tachycardia, tachypnea, lactic acid 2.5, sepsis and UTI and started on antibiotics. Given stress dose hydrocortisone. 24 HOUR EVENTS Transfer order placed for xfer to med/surg floor on 09/12/17. BG 43 this AM and resolved to 70s with juice PO. SUBJECTIVE Patient states much improved, no pain, no SOB. 24 HOUR INTAKE & OUTPUT Intake: 2268cc Output: 200+unmeasured voids Net: N/A BM: Yes LINES/TUBES/DRAINS PIV - Current Medication List Current Medications: Active Medications Acetaminophen (Tylenol -) 650 mg PO Q6H [facility] Last Admin: 09/13/17 06:49 Dose: 650 mg Albuterol/Ipratropium (Duoneb -) 1 amp NEB RQID [facility] Last Admin: 09/12/17 20:56 Dose: 1 amp Amino Acids (Prosource No Carb Liquid Pkt) 30 ml PO BID@0800,1730 [facility] Last Admin: 09/12/17 17:36 Dose: 30 ml Apixaban (Eliquis -) 5 mg PO BID [facility] Last Admin: 09/12/17 21:37 Dose: 5 mg Atorvastatin Calcium (Lipitor -) 40 mg PO HS [facility] Last Admin: 09/12/17 21:37 Dose: 40 mg Clotrimazole (Lotrimin 1% Cream -) 1 applic TP DAILY [facility] Last Admin: 09/12/17 10:42 Dose: 1 applic Dextrose (D50w (Vial) -) 25 gm IVPUSH PRN PRN PRN Reason: hypoglycemia Digoxin (Lanoxin -) 0.25 mg PO DAILY [facility] Last Admin: 09/12/17 10:47 Dose: 0.25 mg Hydrocortisone Sodium Succinate (Solu-Cortef -) 100 mg IVPUSH Q8H-IV [facility] Last Admin: 09/13/17 02:59 Dose: 100 mg Sodium Chloride (Normal Saline -) 1,000 mls @ 75 mls/hr IV ASDIR [facility] Last Admin: 09/13/17 06:50 Dose: 75 mls/hr Ertapenem 1 gm/ Sodium (Chloride) 100 mls @ 200 mls/hr IVPB DAILY [facility] Last Admin: 09/12/17 13:54 Dose: 200 mls/hr Insulin Aspart (Novolog Vial Sliding Scale -) 1 vial SQ ACHS [facility] PRN Reason: Protocol Last Admin: 09/13/17 06:28 Dose: Not Given Non-Formulary Medication (Fluticasone/Vilanterol [Breo Ellipta 200-25 Mcg Inh]) 1 each IH DAILY [facility] Polyethylene Glycol (Miralax (For Daily Use) -) 17 gm PO DAILY [facility] Last Admin: 09/12/17 13:58 Dose: 17 gm - Objective Vital Signs: Vital Signs Temperature 98 F 09/13/17 06:00 Pulse Rate 99 H 09/13/17 06:00 Respiratory Rate 19 09/13/17 06:00 Blood Pressure 104/79 09/13/17 06:00 O2 Sat by Pulse Oximetry (%) 98 09/13/17 00:35 Constitutional: Yes: Well Nourished, No Distress, Calm, Obese, Other (alert, older adult male, conversive, answering appropriately) Eyes: Yes: WNL, Conjunctiva Clear, EOM Intact HENT: Yes: WNL, Atraumatic, Normocephalic Neck: Yes: WNL, Supple, Trachea Midline Cardiovascular: Yes: WNL, Pulse Irregular Respiratory: Yes: Regular Gastrointestinal: Yes: Normal Bowel Sounds, Soft, Tenderness (mild suprapubic) Genitourinary: Yes: WNL Musculoskeletal: Yes: WNL Extremities: Yes: WNL. No: Cold, Cyanosis, Delayed Capillary Refill, Pallor Edema: No Peripheral Pulses: Left Doralis Pedis: 2+, Right Dorsalis Pedis: 2+ Integumentary: Yes: WNL Wound/Incision: Yes: Other (umbilicus with small scabbed excoriation, no current active drainage) Neurological: Yes: WNL, Alert, Oriented, Cran Nerves II-XII Intact (grossly) Psychiatric: Yes: WNL, Alert, Oriented Labs: CBC, BMP 09/13/17 05:15 09/13/17 05:15 INR, PTT INR 1.34 (0.82-1.09) H 09/13/17 05:15 Assessment/Plan 72 YOM with h/o CHF, COPD, LUCY on CPAP, restrictive lung disease 2/2 obesity, DM , A-fib, who was BIBA from SNF for AMS and hypotension, found to have fever, tachycardia, tachypnea, lactic acid 2.5, sepsis and UTI and started on antibiotics. Given stress dose hydrocortisone. RESP Respiratory distress, improved. Patient has h/o pulmonary hypertension, CHF, COPD, LUCY on CPAP, restrictive disease 2/2 obesity. Also with h/o anemia which is likely not helping but is mild. -DuoNeb scheduled -Fluticasone/Vilanterol CARDS #A-fib, chronic on AC. -Continue telemetry monitoring -Continue home Eliquis -Continue digoxin -Cardiology consult ID #Sepsis, improved. Likely 2/2 ESBL UTI which is being treated, also adrenal insufficiency now on stress dose hydrocortisone. -Continue ertapenem -ID consulting RENAL #SHAKIR, mild. Reported h/o CKD but Cr has always been 1.3 or below on [facility] records. Most likely 2/2 hypotension/sepsis and UTI, and hypovolemia. Less likely pyelonephritis as patient did not have CVA tenderness -Nephrology consult -Monitor renal function #Dehydration, improved. -Hold BP meds -IVF ENDO #DM, chronic. Patient hypoglycemic this AM. -Hold insulin for now -D50 prn -Endocrinology consult NEURO Altered mental status, resolved. Had been reported prior to being transferred from [facility] to [facility] ED. FEN -Monitor CMP/Mg/Phos -Replace lytes prn -Soft diet -Miralax prn constipation -Tamsulosin scheduled for BPH PPX DVT: Home Eliquis GI: None PT: Order placed DISPO Stable and appropriate for transfer to med/surg, order placed 09/12/17.
[2017-09-13] MEDS: ALBUTEROL SO4 2.5/IPRATROPIUM 0.5 INH SOL 3 ML VIAL.NEB. NEB SCH ×4 (08:30→21:00)
[2017-09-13 08:42] LABS: ANISOCYTOSIS 1+; MACROCYTOSIS 0; OVALOCYTE 1+; PLATELET ESTIMATE NORMAL
--- NOTE | 2017-09-13 08:42 | PN ---
Progress Note (short form) - Note Progress Note: c/o constipation and inablility to void had miralax yesterday- nurse reports 2 BMs last night Vital Signs Period Temp Pulse Resp BP Sys/Park Pulse Ox Last 24 Hr 97.4 F-98.2 F 89-113 12-23 104-138/60-79 98-100 cor-rrr lungs clear abd soft, no suprapubic fullness ext no edema CBC, BMP 09/13/17 05:15 09/13/17 05:15 Microbiology 09/09/17 13:47 Blood - Peripheral Venous Blood Culture - Preliminary NO GROWTH OBTAINED AFTER 72 HOURS, INCUBATION TO CONTINUE FOR 2 DAYS. 09/09/17 13:38 Blood - Peripheral Venous Blood Culture - Preliminary NO GROWTH OBTAINED AFTER 72 HOURS, INCUBATION TO CONTINUE FOR 2 DAYS. 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 imp/reccd sepsis/ecoli esbl uti chf copd ertapenem day #2 consider steroid taper contact isolation bladder scan- r/o urinary retention, flomax resumed today constipation- miralax prn Problem List - Problems (1) Sepsis Code(s): A41.9 - SEPSIS, UNSPECIFIED ORGANISM (2) UTI (urinary tract infection) Code(s): N39.0 - URINARY TRACT INFECTION, SITE NOT SPECIFIED (3) Infection due to ESBL-producing Escherichia coli Code(s): A49.8 - OTHER BACTERIAL INFECTIONS OF UNSPECIFIED SITE; Z16.12 - EXTENDED SPECTRUM BETA LACTAMASE (ESBL) RESISTANCE (4) CHF (congestive heart failure) Code(s): I50.9 - HEART FAILURE, UNSPECIFIED (5) COPD (chronic obstructive pulmonary disease) Code(s): J44.9 - CHRONIC OBSTRUCTIVE PULMONARY DISEASE, UNSPECIFIED
[2017-09-13] MEDS ORDERED: PT OWN MED DRAWER 7, Y5N ONE ×3 (09:12→20:44)
[2017-09-13] MEDS: ERTAPENEM SODIUM 1 GM in SODIUM CHLORIDE 100 ML IVPB SCH (09:21)
[2017-09-13] MEDS: APIXABAN 5 MG TABLET PO SCH ×2 (09:22→21:15)
[2017-09-13] MEDS: TAMSULOSIN HCL 0.4 MG CAP.ER.24H (FP) PO SCH (09:22)
[2017-09-13] MEDS: DIGOXIN 0.125 MG TABLET (FP) PO SCH (09:22)
[2017-09-13] MEDS: AMINO ACIDS/PROTEIN HYDROLYS 30 ML LIQUID.PKT PO SCH ×2 (09:24→18:23)
--- NOTE | 2017-09-13 12:31 | PN ---
Teaching Attending Note Name of Resident: Aleena Randle ATTENDING PHYSICIAN STATEMENT I saw and evaluated the patient. I reviewed the resident's note and discussed the case with the resident. I agree with the resident's findings and plan as documented. SUBJECTIVE: Patient seen and examined in the ICU. Awake and alert. Breathing feels stable. Hemodynamics have remained stable. Lower abdominal/suprapubic discomfort. Having difficulty with urination/constipation. Intake & Output 09/10/17 09/11/17 09/12/17 09/13/17 23:59 23:59 23:59 23:59 Intake Total 3145 2670 2267.5 1030 Output Total 360 200 Balance 2785 2670 2067.5 1030 Weight 300 lb 280 lb 4.8 oz 281 lb 6.4 oz Last Vital Signs Temp Pulse Resp BP Pulse Ox 97.7 F 96 H 22 114/80 97 09/13/17 10:00 09/13/17 12:00 09/13/17 12:00 09/13/17 12:00 09/13/17 10:15 Active Medications Acetaminophen (Tylenol -) 650 mg PO Q6H [facility] Last Admin: 09/13/17 06:49 Dose: 650 mg Albuterol/Ipratropium (Duoneb -) 1 amp NEB RQID [facility] Last Admin: 09/13/17 12:21 Dose: 1 amp Amino Acids (Prosource No Carb Liquid Pkt) 30 ml PO BID@0800,1730 [facility] Last Admin: 09/13/17 09:24 Dose: 30 ml Apixaban (Eliquis -) 5 mg PO BID [facility] Last Admin: 09/13/17 09:22 Dose: 5 mg Atorvastatin Calcium (Lipitor -) 40 mg PO HS [facility] Last Admin: 09/12/17 21:37 Dose: 40 mg Clotrimazole (Lotrimin 1% Cream -) 1 applic TP DAILY [facility] Last Admin: 09/12/17 10:42 Dose: 1 applic Dextrose (D50w (Vial) -) 25 gm IVPUSH PRN PRN PRN Reason: hypoglycemia Digoxin (Lanoxin -) 0.25 mg PO DAILY [facility] Last Admin: 09/13/17 09:22 Dose: 0.25 mg Hydrocortisone Sodium Succinate (Solu-Cortef -) 100 mg IVPUSH Q8H-IV [facility] Last Admin: 09/13/17 09:22 Dose: 100 mg Sodium Chloride (Normal Saline -) 1,000 mls @ 75 mls/hr IV ASDIR [facility] Last Admin: 09/13/17 06:50 Dose: 75 mls/hr Ertapenem 1 gm/ Sodium (Chloride) 100 mls @ 200 mls/hr IVPB DAILY [facility] Last Admin: 09/13/17 09:21 Dose: 200 mls/hr Insulin Aspart (Novolog Vial Sliding Scale -) 1 vial SQ ACHS [facility] PRN Reason: Protocol Last Admin: 09/13/17 06:28 Dose: Not Given Non-Formulary Medication (Fluticasone/Vilanterol [Breo Ellipta 200-25 Mcg Inh]) 1 each IH DAILY [facility] Polyethylene Glycol (Miralax (For Daily Use) -) 17 gm PO DAILY [facility] Tamsulosin HCl (Flomax -) 0.4 mg PO DAILY@0900 [facility] Last Admin: 09/13/17 09:22 Dose: 0.4 mg Gen: Awake and alert Heart: RRR Lung: distant breath sounds, no wheezes Abd: soft, nontender Ext: no edema Laboratory Results - last 24 hr 09/11/17 09/12/17 09/12/17 05:26 12:38 16:57 WBC RBC Hgb Hct MCV MCH MCHC RDW Plt Count MPV Neutrophils % Neutrophils % (Manual) Band Neutrophils % Lymphocytes % Lymphocytes % (Manual) Monocytes % Monocytes % (Manual) Eosinophils % Eosinophils % (Manual) Basophils % Basophils % (Manual) Myelocytes % (Man) Promyelocytes % (Man) Blast Cells % (Manual) Nucleated RBC % Metamyelocytes Hypochromia Platelet Estimate Polychromasia Poikilocytosis Anisocytosis Microcytosis Macrocytosis Ovalocytes PT with INR INR PTT (Actin FS) Sodium Potassium Chloride Carbon Dioxide Anion Gap BUN Creatinine Creat Clearance w eGFR POC Glucometer 172.10049 [phone] Random Glucose Calcium Phosphorus Magnesium Total Bilirubin AST ALT Alkaline Phosphatase Total Protein Albumin Cortisol AM Sample 142.5 Cortisol PM Sample 09/12/17 09/12/17 09/13/17 19:30 22:21 05:15 WBC 13.0 H RBC 3.76 L Hgb 11.2 L Hct 34.4 L MCV 91.5 MCH 29.9 MCHC 32.7 RDW 23.6 H Plt Count 433 MPV 7.8 Neutrophils % Parts Analyst Neutrophils % (Manual) 91.0 H* Band Neutrophils % 1.0 Lymphocytes % Parts Analyst Lymphocytes % (Manual) 4.0 L Monocytes % Parts Analyst Monocytes % (Manual) 1 L Eosinophils % Parts Analyst Eosinophils % (Manual) 0.0 Basophils % Parts Analyst Basophils % (Manual) 0.0 Myelocytes % (Man) 2 D Promyelocytes % (Man) 0 Blast Cells % (Manual) 0 Nucleated RBC % 0 Metamyelocytes 1 D Hypochromia 0 Platelet Estimate Normal Polychromasia 0 Poikilocytosis 1+ Anisocytosis 1+ Microcytosis 1+ Macrocytosis 0 Ovalocytes 1+ PT with INR INR PTT (Actin FS) Sodium Potassium Chloride Carbon Dioxide Anion Gap BUN Creatinine Creat Clearance w eGFR POC Glucometer 104.08629 Random Glucose Calcium Phosphorus Magnesium Total Bilirubin AST ALT Alkaline Phosphatase Total Protein Albumin Cortisol AM Sample Cortisol PM Sample Cancelled 09/13/17 09/13/17 09/13/17 05:15 05:15 06:24 WBC RBC Hgb Hct MCV MCH MCHC RDW Plt Count MPV Neutrophils % Neutrophils % (Manual) Band Neutrophils % Lymphocytes % Lymphocytes % (Manual) Monocytes % Monocytes % (Manual) Eosinophils % Eosinophils % (Manual) Basophils % Basophils % (Manual) Myelocytes % (Man) Promyelocytes % (Man) Blast Cells % (Manual) Nucleated RBC % Metamyelocytes Hypochromia Platelet Estimate Polychromasia Poikilocytosis Anisocytosis Microcytosis Macrocytosis Ovalocytes PT with INR 15.10 H INR 1.34 H PTT (Actin FS) 25.7 L Sodium 141 Potassium 3.8 Chloride 104 Carbon Dioxide 26 Anion Gap 11 BUN 46 H Creatinine 1.1 D Creat Clearance w eGFR > 60 POC Glucometer 63.25283 Random Glucose 43 L* D Calcium 8.0 L Phosphorus 2.2 L D Magnesium 1.6 L Total Bilirubin 0.6 D AST 25 ALT 70 Alkaline Phosphatase 139 H Total Protein 5.1 L Albumin 1.8 L Cortisol AM Sample Cortisol PM Sample 09/13/17 06:45 WBC RBC Hgb Hct MCV MCH MCHC RDW Plt Count MPV Neutrophils % Neutrophils % (Manual) Band Neutrophils % Lymphocytes % Lymphocytes % (Manual) Monocytes % Monocytes % (Manual) Eosinophils % Eosinophils % (Manual) Basophils % Basophils % (Manual) Myelocytes % (Man) Promyelocytes % (Man) Blast Cells % (Manual) Nucleated RBC % Metamyelocytes Hypochromia Platelet Estimate Polychromasia Poikilocytosis Anisocytosis Microcytosis Macrocytosis Ovalocytes PT with INR INR PTT (Actin FS) Sodium Potassium Chloride Carbon Dioxide Anion Gap BUN Creatinine Creat Clearance w eGFR POC Glucometer 79.35160 Random Glucose Calcium Phosphorus Magnesium Total Bilirubin AST ALT Alkaline Phosphatase Total Protein Albumin Cortisol AM Sample Cortisol PM Sample A/P UTI Sepsis Lactic Acidosis resolved LV Diastolic Dysfunction COPD Morbid Obesity Obstructive Sleep Apnea Paroxysmal Atrial Fibrillation HTN Hyperlipidemia (?) Hypoadrenalism - Continue ABX coverage - Taper stress dose steroids - inhaled bronchodilators - O2 to keep SpO2 >90% - NIPPV to assist in work of breathing - rate control - continue anticoagulation - Cardiac Telemetry monitoring Dr Emanuel Critical care time spent in reviewing chart, evaluating patient and formulating plan 36 min
[2017-09-13] MEDS: POLYETHYLENE GLYCOL 3350 119 GM BTL PO SCH (12:33)
[2017-09-13] MEDS: CLOTRIMAZOLE 1% CREAM 15 GM TUBE TP SCH (12:34)
[2017-09-13] MEDS ORDERED: MAGNESIUM 2GM/50ML STERILE WATER IVPB IVPB ONE (12:35)
[2017-09-13] MEDS ORDERED: POTASSIUM CHLORIDE TABS 20 MEQ TABLET.ER (FP) PO ONE ×3 (12:35→21:15)
--- NOTE | 2017-09-13 12:40 | PN ---
Progress Note (short form) - Note Progress Note: Chief Complaint: hypotension History of Present Illness: feels better, weakness improved. no cp, no sob/orthopnea (laying flat), no palpitations remains on IVF Current Medications Acetaminophen (Tylenol -) 650 mg PO Q6H [facility] Last Admin: 09/13/17 06:49 Dose: 650 mg Albuterol/Ipratropium (Duoneb -) 1 amp NEB RQID [facility] Last Admin: 09/13/17 12:21 Dose: 1 amp Amino Acids (Prosource No Carb Liquid Pkt) 30 ml PO BID@0800,1730 [facility] Last Admin: 09/13/17 09:24 Dose: 30 ml Apixaban (Eliquis -) 5 mg PO BID [facility] Last Admin: 09/13/17 09:22 Dose: 5 mg Atorvastatin Calcium (Lipitor -) 40 mg PO HS [facility] Last Admin: 09/12/17 21:37 Dose: 40 mg Clotrimazole (Lotrimin 1% Cream -) 1 applic TP DAILY [facility] Last Admin: 09/13/17 12:34 Dose: 1 applic Dextrose (D50w (Vial) -) 25 gm IVPUSH PRN PRN PRN Reason: hypoglycemia Digoxin (Lanoxin -) 0.25 mg PO DAILY [facility] Last Admin: 09/13/17 09:22 Dose: 0.25 mg Hydrocortisone Sodium Succinate (Solu-Cortef -) 100 mg IVPUSH Q8H-IV [facility] Last Admin: 09/13/17 09:22 Dose: 100 mg Sodium Chloride (Normal Saline -) 1,000 mls @ 75 mls/hr IV ASDIR [facility] Last Admin: 09/13/17 06:50 Dose: 75 mls/hr Ertapenem 1 gm/ Sodium (Chloride) 100 mls @ 200 mls/hr IVPB DAILY [facility] Last Admin: 09/13/17 09:21 Dose: 200 mls/hr Insulin Aspart (Novolog Vial Sliding Scale -) 1 vial SQ ACHS [facility] PRN Reason: Protocol Last Admin: 09/13/17 12:34 Dose: Not Given Magnesium Sulfate (Magnesium Sulfate) 2 gm IVPB ONCE ONE Stop: 09/13/17 12:36 Non-Formulary Medication (Fluticasone/Vilanterol [Breo Ellipta 200-25 Mcg Inh]) 1 each IH DAILY [facility] Polyethylene Glycol (Miralax (For Daily Use) -) 17 gm PO DAILY [facility] Last Admin: 09/13/17 12:33 Dose: Not Given Potassium Chloride (K-Dur -) 20 meq PO ONCE ONE Stop: 09/13/17 12:36 Tamsulosin HCl (Flomax -) 0.4 mg PO DAILY@0900 [facility] Last Admin: 09/13/17 09:22 Dose: 0.4 mg - Objective Vital Signs: Vital Signs - 24 hr 09/12/17 09/12/17 09/12/17 14:00 16:00 20:00 Temperature 98.0 F Pulse Rate 105 H 98 H 90 Respiratory 15 13 13 Rate Blood Pressure 113/74 109/60 138/79 O2 Sat by Pulse Oximetry (%) 09/12/17 09/12/17 09/12/17 20:38 21:00 22:00 Temperature 98.1 F Pulse Rate 97 H Respiratory 20 19 Rate Blood Pressure 119/66 O2 Sat by Pulse 99 99 100 Oximetry (%) 09/13/17 09/13/17 09/13/17 00:00 00:35 02:00 Temperature 98.2 F Pulse Rate 90 91 H 113 H Respiratory 13 16 Rate Blood Pressure 111/65 110/61 O2 Sat by Pulse 98 Oximetry (%) 09/13/17 09/13/17 09/13/17 04:00 06:00 06:55 Temperature 98 F Pulse Rate 89 99 H Respiratory 12 19 Rate Blood Pressure 110/62 104/79 O2 Sat by Pulse 99 Oximetry (%) 09/13/17 09/13/17 09/13/17 08:00 09:00 09:22 Temperature Pulse Rate 93 H 92 H Respiratory 18 18 Rate Blood Pressure 108/72 O2 Sat by Pulse 97 Oximetry (%) 09/13/17 09/13/17 09/13/17 10:00 10:15 12:00 Temperature 97.7 F Pulse Rate 102 H 96 H Respiratory 18 22 Rate Blood Pressure 94/53 114/80 O2 Sat by Pulse 97 Oximetry (%) Intake & Output 09/11/17 09/12/17 09/13/17 09/14/17 07:59 07:59 07:59 07:59 Intake Total 3070 2427.5 2365 200 Output Total 100 200 Balance 2970 2427.5 2165 200 Weight 300 lb 280 lb 4.8 oz 281 lb 6.4 oz 281 lb 6.4 oz Constitutional: Yes: Well Nourished, No Distress, Calm Cardiovascular: Yes: Pulse Irregular (soft), S1, S2. No: JVD, Gallop, Murmur Respiratory: Yes: Regular, CTA Bilaterally. 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 09/09/17 13:38 Blood - Peripheral Venous Blood Culture - Preliminary NO GROWTH OBTAINED AFTER 72 HOURS, INCUBATION TO CONTINUE FOR 2 DAYS. Laboratory Tests 09/10/17 09/13/17 09/13/17 09:10 05:15 05:15 Band Neutrophils % 1.0 Magnesium 1.6 L Total Bilirubin 0.6 D AST 25 ALT 70 Alkaline Phosphatase 139 H Albumin 1.8 L Digoxin 1.3336 - ....Imaging EKG: Other (tele: afib 100s, brief breakthrough to 130's.) Assessment/Plan Echo 08/28: TDS. nl LV size. prob nl LVSF. RV tds. valves TDS. Echo 07/2016: Nl lv/rv. 1+ AR mibi 12/2012: small posterior ischemia vs artifact, nl lvef, no tid cxr: incr markings diffusely, no infiltrate/effusions--no change vs prior EKG 09/09: afib; nonsp ST-Ts diffusely, slightly more pronounced than prior a/p: 72 yo male with h/o AFib s/p prior DCCV 12/2015 to SR on AC, HTN, HL, dchf , PVCs with palpitations, morbid obesity, LUCY on bipap, severe COPD, here with sob. hypotension, urosepsis: -urine growing E. coli (ESBL) -hemodynamics improving, now with sbp 110s. still requiring IVF. -abx per critical care. -? wean stress dose steroids--per critical care -no ischemic ecg changes, trop neg x 2 -holding CCB, BB, diuretics for now chronic diastolic chf: - 07/28 copd admit with marked pedal edema treated with lasix--d/c wt 314. sent out on lasix 40 po bid. - 08/28 admit with prolonged volume-up during last admit 08/28 (in setting of peristent rapid AF), requiring lasix 100 iv bid for diuresis. - new dry wt on last discharge 287 lbs (+signif muscle atrophy from prolonged bedbound state). - no accurate weight here yet (cannot stand) - discharged on torsemide 100 qd, holding currently for hypotension - euvolemic off torsemid and with IVF paroxysmal AF/flutter: -on eliquis for AC -new dx 2015--recurred soon after initially successful DCCV plus amio then ( amio stopped given risks of pulm toxicity) -HR persistently rapid last admit 08/28 despite home regimen verapamil 240 bid plus digoxin continued--? was exacerbating refractory diast chf. -dig increased to 0.25 qd (level WNL), metoprolol 25mg qd added-->HR improved significantly -plan was to continue same meds and, if HR remains mostly <110-120 and no signf this was causing refractory/recurrent HF, would defer AVN ablation/PPM -presently, holding verapamil and metoprolol given hypotension, HR currently remains stable -HRs rapid overnight 09/10, did not receive digoxin yesterday. -09/11: HR currently controlled. dig level 1.3--cont same dose (0.25mg qd) given necessity for for AF control to minimize future CHF exacerbations -09/12: HR remains rapid at times, mostly acceptable tachy burden. continue digoxin. BP improving with tx of urosepsis. expect will be able to resume verapamil and metoprolol in 24-48 hrs - 09/13: HR remains rapid at times, mostly acceptable tachy burden. continue digoxin (will recheck level). Lyte repletion, today mg 1.6 which poses a barrier to rate control. Resume home verapamil and toprol once bp stable. Still running low and dependent on IVF today. copd: - ? end-stage copd at this point, freq admits - per pulm deconditioning, hypoalbuminemia: -nutrition per critical care hld: -continue home statin htn: -low bp's here, workup ongoing as above -holding meds as necessary possible cad: -pt had borderline positive mibi in 2012 vs soft tissue attenuation artifact -never had angina sx's -ECG nonsp ST-T no signif change vs prior. trop neg x2. no anginal sx's -continue medical management with statin, AC without ASA estimated time spent in pt exam, data review, and formulating mgmt plan of potentially life threatening medical problems = 35 min
--- NOTE | 2017-09-13 16:14 | PN ---
Progress Note, Physician History of Present Illness: Pt seen and examined at bedside. He is awake and alert. He denies shortness of breath. - Current Medication List Current Medications: Active Medications Acetaminophen (Tylenol -) 650 mg PO Q6H [facility] Last Admin: 09/13/17 15:18 Dose: 650 mg Albuterol/Ipratropium (Duoneb -) 1 amp NEB RQID [facility] Last Admin: 09/13/17 12:21 Dose: 1 amp Amino Acids (Prosource No Carb Liquid Pkt) 30 ml PO BID@0800,1730 [facility] Last Admin: 09/13/17 09:24 Dose: 30 ml Apixaban (Eliquis -) 5 mg PO BID [facility] Last Admin: 09/13/17 09:22 Dose: 5 mg Atorvastatin Calcium (Lipitor -) 40 mg PO HS [facility] Last Admin: 09/12/17 21:37 Dose: 40 mg Clotrimazole (Lotrimin 1% Cream -) 1 applic TP DAILY [facility] Last Admin: 09/13/17 12:34 Dose: 1 applic Dextrose (D50w (Vial) -) 25 gm IVPUSH PRN PRN PRN Reason: hypoglycemia Digoxin (Lanoxin -) 0.25 mg PO DAILY [facility] Last Admin: 09/13/17 09:22 Dose: 0.25 mg Hydrocortisone Sodium Succinate (Solu-Cortef -) 100 mg IVPUSH Q8H-IV [facility] Last Admin: 09/13/17 09:22 Dose: 100 mg Sodium Chloride (Normal Saline -) 1,000 mls @ 75 mls/hr IV ASDIR [facility] Last Admin: 09/13/17 06:50 Dose: 75 mls/hr Ertapenem 1 gm/ Sodium (Chloride) 100 mls @ 200 mls/hr IVPB DAILY [facility] Last Admin: 09/13/17 09:21 Dose: 200 mls/hr Vancomycin HCl 1,250 mg/ (Dextrose) 250 mls @ 166.667 mls/hr IVPB BID@0400, 1600 [facility] PRN Reason: Protocol Insulin Aspart (Novolog Vial Sliding Scale -) 1 vial SQ ACHS [facility] PRN Reason: Protocol Last Admin: 09/13/17 12:34 Dose: Not Given Non-Formulary Medication (Fluticasone/Vilanterol [Breo Ellipta 200-25 Mcg Inh]) 1 each IH DAILY [facility] Polyethylene Glycol (Miralax (For Daily Use) -) 17 gm PO DAILY [facility] Last Admin: 09/13/17 12:33 Dose: Not Given Tamsulosin HCl (Flomax -) 0.4 mg PO DAILY@0900 [facility] Last Admin: 09/13/17 09:22 Dose: 0.4 mg - Objective Vital Signs: Vital Signs Temperature 97.4 F L 09/13/17 15:57 Pulse Rate 94 H 09/13/17 15:57 Respiratory Rate 22 09/13/17 15:57 Blood Pressure 103/68 09/13/17 15:57 O2 Sat by Pulse Oximetry (%) 97 09/13/17 10:15 Constitutional: Yes: Calm Eyes: Yes: Conjunctiva Clear Cardiovascular: Yes: S1, S2 Respiratory: Yes: On Nasal O2 Gastrointestinal: Yes: Soft, Abdomen, Obese Genitourinary: Yes: WNL Musculoskeletal: Yes: WNL Edema: No Neurological: Yes: Oriented Psychiatric: Yes: Oriented Labs: CBC, BMP 09/13/17 05:15 09/13/17 05:15 INR, PTT INR 1.34 (0.82-1.09) H 09/13/17 05:15 Problem List - Problems (1) CHF (congestive heart failure) Code(s): I50.9 - HEART FAILURE, UNSPECIFIED (2) COPD (chronic obstructive pulmonary disease) Code(s): J44.9 - CHRONIC OBSTRUCTIVE PULMONARY DISEASE, UNSPECIFIED (3) Hypotension Code(s): I95.9 - HYPOTENSION, UNSPECIFIED (4) Sepsis Code(s): A41.9 - SEPSIS, UNSPECIFIED ORGANISM Assessment/Plan Current Medications Generic Name Dose Route Start Last Admin Trade Name Spike PRN Reason Stop Dose Admin Acetaminophen 650 mg 09/09/17 19:45 09/13/17 15:18 Tylenol - PO 650 mg Q6H [facility] Administration Albuterol/Ipratropium 1 amp 09/09/17 20:00 09/13/17 12:21 Duoneb - NEB 1 amp RQID [facility] Administration Amino Acids 30 ml 09/12/17 08:00 09/13/17 09:24 Prosource No Carb Liquid Pkt PO 30 ml BID@0800,1730 [facility] Administration Apixaban 5 mg 09/09/17 22:00 09/13/17 09:22 Eliquis - PO 5 mg BID [facility] Administration Atorvastatin Calcium 40 mg 09/09/17 22:00 09/12/17 21:37 Lipitor - PO 40 mg HS [facility] Administration Clotrimazole 1 applic 09/10/17 10:00 09/13/17 12:34 Lotrimin 1% Cream - TP 1 applic DAILY [facility] Administration Dextrose 25 gm 09/10/17 08:24 D50w (Vial) - IVPUSH PRN PRN hypoglycemia Digoxin 0.25 mg 09/11/17 10:00 09/13/17 09:22 Lanoxin - PO 0.25 mg DAILY [facility] Administration Hydrocortisone Sodium Succinate 100 mg 09/10/17 13:45 09/13/17 09:22 Solu-Cortef - IVPUSH 100 mg Q8H-IV [facility] Administration Sodium Chloride 1,000 mls @ 75 mls/hr 09/11/17 06:00 09/13/17 06:50 Normal Saline - IV 75 mls/hr ASDIR [facility] Administration Ertapenem 1 gm/ Sodium 100 mls @ 200 mls/hr 09/12/17 12:45 09/13/17 09:21 Chloride IVPB 200 mls/hr DAILY [facility] Administration Vancomycin HCl 1,250 mg/ 250 mls @ 166.667 mls/hr 09/13/17 16:00 Dextrose IVPB BID@0400,1600 [facility] Protocol Insulin Aspart 1 vial 09/09/17 22:00 09/13/17 12:34 Novolog Vial Sliding Scale - SQ Not Given ACHS [facility] Protocol Non-Formulary Medication 1 each 09/10/17 10:00 Fluticasone/Vilanterol [Breo Ellipta 200-25 Mcg Inh] IH DAILY [facility] Polyethylene Glycol 17 gm 09/13/17 10:45 09/13/17 12:33 Miralax (For Daily Use) - PO Not Given DAILY [facility] Tamsulosin HCl 0.4 mg 09/13/17 09:00 09/13/17 09:22 Flomax - PO 0.4 mg DAILY@0900 [facility] Administration Impression 1. SHAKIR 2. CHF 3. obstructive sleep apnea 4. obesity 5. DM 6. HTN 7. hyperlipidemia 8. resp failure requiring bipap 9. sepsis 10. UTI Plan - renal function is improved - SHAKIR likely from hypotension - monitor bp, improving - follow renal ultrasound - repeat labs in am - ID follow up for abx Dr Aguilar
[2017-09-13] MEDS: VANCOMYCIN 1,250 MG in DEXTROSE 5%-WATER - 250 ML IVPB SCH (16:27)
[2017-09-13] MEDS ORDERED: HEMOQUE TEST 1 EACH EACH ONE (20:46)
[2017-09-13] MEDS: ATORVASTATIN CA 40 MG TABLET (FP) PO SCH (21:15)
[2017-09-13] MEDS ORDERED: VANCOMYCIN 1,250 MG in DEXTROSE 5%-WATER - 250 ML IVPB SCH (22:00)
--- NOTE | 2017-09-13 23:31 | PN ---
Progress Note, Physician Chief Complaint: EVENTS NOTED AND REVIEWED URINARY RETENTION - Current Medication List Current Medications: Active Medications Acetaminophen (Tylenol -) 650 mg PO Q6H [facility] Last Admin: 09/13/17 20:00 Dose: Not Given Albuterol/Ipratropium (Duoneb -) 1 amp NEB RQID [facility] Last Admin: 09/13/17 21:00 Dose: 1 amp Amino Acids (Prosource No Carb Liquid Pkt) 30 ml PO BID@0800,1730 [facility] Last Admin: 09/13/17 18:23 Dose: Not Given Apixaban (Eliquis -) 5 mg PO BID [facility] Last Admin: 09/13/17 21:15 Dose: 5 mg Atorvastatin Calcium (Lipitor -) 40 mg PO HS [facility] Last Admin: 09/13/17 21:15 Dose: 40 mg Clotrimazole (Lotrimin 1% Cream -) 1 applic TP DAILY [facility] Last Admin: 09/13/17 12:34 Dose: 1 applic Dexamethasone Sodium Phosphate (Decadron Injection -) 4 mg IVPUSH BID [facility] Dextrose (D50w (Vial) -) 25 gm IVPUSH PRN PRN PRN Reason: hypoglycemia Digoxin (Lanoxin -) 0.25 mg PO DAILY [facility] Last Admin: 09/13/17 09:22 Dose: 0.25 mg Sodium Chloride (Normal Saline -) 1,000 mls @ 75 mls/hr IV ASDIR [facility] Last Admin: 09/13/17 06:50 Dose: 75 mls/hr Ertapenem 1 gm/ Sodium (Chloride) 100 mls @ 200 mls/hr IVPB DAILY [facility] Last Admin: 09/13/17 09:21 Dose: 200 mls/hr Vancomycin HCl 1,250 mg/ (Dextrose) 250 mls @ 166.667 mls/hr IVPB BID@0400, 1600 [facility] PRN Reason: Protocol Last Admin: 09/13/17 16:27 Dose: 166.667 mls/hr Insulin Aspart (Novolog Vial Sliding Scale -) 1 vial SQ ACHS [facility] PRN Reason: Protocol Last Admin: 09/13/17 21:23 Dose: 2 units Non-Formulary Medication (Fluticasone/Vilanterol [Breo Ellipta 200-25 Mcg Inh]) 1 each IH DAILY [facility] Polyethylene Glycol (Miralax (For Daily Use) -) 17 gm PO DAILY [facility] Last Admin: 09/13/17 12:33 Dose: Not Given Tamsulosin HCl (Flomax -) 0.4 mg PO DAILY@0900 [facility] Last Admin: 09/13/17 09:22 Dose: 0.4 mg - Objective Vital Signs: Vital Signs Temperature 98 F 09/13/17 18:20 Pulse Rate 94 H 09/13/17 18:20 Respiratory Rate 21 09/13/17 21:00 Blood Pressure 110/60 09/13/17 18:20 O2 Sat by Pulse Oximetry (%) 97 09/13/17 21:48 Constitutional: Yes: Moderate Distress Eyes: Yes: WNL HENT: Yes: WNL Neck: Yes: WNL Cardiovascular: Yes: Pulse Irregular Respiratory: Yes: On Nasal O2, SOB Gastrointestinal: Yes: WNL Genitourinary: Yes: WNL Musculoskeletal: Yes: Muscle Weakness Extremities: Yes: Other Edema: Yes Peripheral Pulses WNL: Yes Integumentary: Yes: Venous Stasis Changes Wound/Incision: Yes: Dressing Dry and Intact Neurological: Yes: Pre-Existing Deficit ...Motor Strength: LLE, RLE Psychiatric: Yes: Other Labs: CBC, BMP 09/13/17 05:15 09/13/17 05:15 INR, PTT INR 1.34 (0.82-1.09) H 09/13/17 05:15 Problem List - Problems (1) CHF (congestive heart failure) Code(s): I50.9 - HEART FAILURE, UNSPECIFIED (2) COPD (chronic obstructive pulmonary disease) Code(s): J44.9 - CHRONIC OBSTRUCTIVE PULMONARY DISEASE, UNSPECIFIED (3) Hypotension Code(s): I95.9 - HYPOTENSION, UNSPECIFIED (4) Infection due to ESBL-producing Escherichia coli Code(s): A49.8 - OTHER BACTERIAL INFECTIONS OF UNSPECIFIED SITE; Z16.12 - EXTENDED SPECTRUM BETA LACTAMASE (ESBL) RESISTANCE (5) Sepsis Code(s): A41.9 - SEPSIS, UNSPECIFIED ORGANISM (6) UTI (urinary tract infection) Code(s): N39.0 - URINARY TRACT INFECTION, SITE NOT SPECIFIED (7) Acute chronic obstructive pulmonary disease with respiratory distress Code(s): J44.9 - CHRONIC OBSTRUCTIVE PULMONARY DISEASE, UNSPECIFIED; R06.03 - ACUTE RESPIRATORY DISTRESS (8) Type 2 diabetes mellitus with diabetic neuropathy Code(s): E11.40 - TYPE 2 DIABETES MELLITUS WITH DIABETIC NEUROPATHY, UNSP Assessment/Plan IV ABX RENAL SONO FOR RETENTION RESTART FLOMAX CARDIO/RENAL EVAL BGM SSI 02 SUPPORT
[2017-09-14] MEDS: ACETAMINOPHEN 325 MG TABLET (FP) PO SCH ×3 (02:09→17:00)
--- NOTE | 2017-09-14 02:28 | PN ---
Progress Note, Physician Chief Complaint: feeling better on iv steroids History of Present Illness: 72 y male pmh copd,chf,afib,admitted with adrenal deficiency requiring iv solucortef,since admission bp and symptoms improved - Current Medication List Current Medications: Active Medications Acetaminophen (Tylenol -) 650 mg PO Q6H [facility] Last Admin: 09/14/17 02:09 Dose: 650 mg Albuterol/Ipratropium (Duoneb -) 1 amp NEB RQID [facility] Last Admin: 09/13/17 21:00 Dose: 1 amp Amino Acids (Prosource No Carb Liquid Pkt) 30 ml PO BID@0800,1730 [facility] Last Admin: 09/13/17 18:23 Dose: Not Given Apixaban (Eliquis -) 5 mg PO BID [facility] Last Admin: 09/13/17 21:15 Dose: 5 mg Atorvastatin Calcium (Lipitor -) 40 mg PO HS [facility] Last Admin: 09/13/17 21:15 Dose: 40 mg Clotrimazole (Lotrimin 1% Cream -) 1 applic TP DAILY [facility] Last Admin: 09/13/17 12:34 Dose: 1 applic Dexamethasone Sodium Phosphate (Decadron Injection -) 4 mg IVPUSH BID [facility] Dextrose (D50w (Vial) -) 25 gm IVPUSH PRN PRN PRN Reason: hypoglycemia Digoxin (Lanoxin -) 0.25 mg PO DAILY [facility] Last Admin: 09/13/17 09:22 Dose: 0.25 mg Sodium Chloride (Normal Saline -) 1,000 mls @ 75 mls/hr IV ASDIR [facility] Last Admin: 09/13/17 06:50 Dose: 75 mls/hr Ertapenem 1 gm/ Sodium (Chloride) 100 mls @ 200 mls/hr IVPB DAILY [facility] Last Admin: 09/13/17 09:21 Dose: 200 mls/hr Vancomycin HCl 1,250 mg/ (Dextrose) 250 mls @ 166.667 mls/hr IVPB BID@0400, 1600 [facility] PRN Reason: Protocol Last Admin: 09/13/17 16:27 Dose: 166.667 mls/hr Insulin Aspart (Novolog Vial Sliding Scale -) 1 vial SQ ACHS [facility] PRN Reason: Protocol Last Admin: 09/13/17 21:23 Dose: 2 units Non-Formulary Medication (Fluticasone/Vilanterol [Breo Ellipta 200-25 Mcg Inh]) 1 each IH DAILY [facility] Polyethylene Glycol (Miralax (For Daily Use) -) 17 gm PO DAILY [facility] Last Admin: 09/13/17 12:33 Dose: Not Given Tamsulosin HCl (Flomax -) 0.4 mg PO DAILY@0900 [facility] Last Admin: 09/13/17 09:22 Dose: 0.4 mg - Objective Vital Signs: Vital Signs Temperature 98.2 F 09/14/17 02:07 Pulse Rate 85 09/14/17 02:07 Respiratory Rate 18 09/14/17 02:07 Blood Pressure 89/67 09/14/17 02:07 O2 Sat by Pulse Oximetry (%) 97 09/13/17 21:48 Constitutional: Yes: Well Nourished, Calm Eyes: Yes: EOM Intact HENT: Yes: Normocephalic Neck: Yes: Trachea Midline Cardiovascular: Yes: Pulse Irregular Respiratory: Yes: CTA Bilaterally Gastrointestinal: Yes: Normal Bowel Sounds ...Rectal Exam: Yes: Deferred Genitourinary: Yes: WNL Breast(s): Yes: WNL Musculoskeletal: Yes: WNL Extremities: Yes: Delayed Capillary Refill Edema: LLE: 1+, RLE: 1+ Labs: CBC, BMP 09/13/17 05:15 09/13/17 05:15 INR, PTT INR 1.34 (0.82-1.09) H 09/13/17 05:15 Problem List - Problems (1) CHF (congestive heart failure) Code(s): I50.9 - HEART FAILURE, UNSPECIFIED (2) COPD (chronic obstructive pulmonary disease) Code(s): J44.9 - CHRONIC OBSTRUCTIVE PULMONARY DISEASE, UNSPECIFIED (3) Hypotension Code(s): I95.9 - HYPOTENSION, UNSPECIFIED (4) Infection due to ESBL-producing Escherichia coli Code(s): A49.8 - OTHER BACTERIAL INFECTIONS OF UNSPECIFIED SITE; Z16.12 - EXTENDED SPECTRUM BETA LACTAMASE (ESBL) RESISTANCE (5) Umbilical discharge Code(s): R19.8 - OTH SYMPTOMS AND SIGNS INVOLVING THE DGSTV SYS AND ABDOMEN (6) Primary adrenal deficiency Code(s): E27.1 - PRIMARY ADRENOCORTICAL INSUFFICIENCY (7) Sepsis Code(s): A41.9 - SEPSIS, UNSPECIFIED ORGANISM (8) UTI (urinary tract infection) Code(s): N39.0 - URINARY TRACT INFECTION, SITE NOT SPECIFIED Assessment/Plan Current Active Problems CHF (congestive heart failure) (Acute) COPD (chronic obstructive pulmonary disease) (Acute) Dehydration (Acute) Hypotension (Acute) Infection due to ESBL-producing Escherichia coli (Acute) Sepsis (Acute) UTI (urinary tract infection) (Acute) Umbilical discharge (Acute) adrenal deficiency steroid dependent Abnormal Lab Results 09/13/17 09/13/17 09/13/17 05:15 05:15 05:15 WBC 13.0 H RBC 3.76 L Hgb 11.2 L Hct 34.4 L RDW 23.6 H Neutrophils % (Manual) 91.0 H* Lymphocytes % (Manual) 4.0 L Monocytes % (Manual) 1 L PT with INR 15.10 H INR 1.34 H PTT (Actin FS) 25.7 L BUN 46 H Random Glucose 43 L* D Calcium 8.0 L Phosphorus 2.2 L D Magnesium 1.6 L Alkaline Phosphatase 139 H Total Protein 5.1 L Albumin 1.8 L Laboratory Results - last 24 hr 09/11/17 09/13/17 09/13/17 22:10 05:15 05:15 WBC 13.0 H RBC 3.76 L Hgb 11.2 L Hct 34.4 L MCV 91.5 MCH 29.9 MCHC 32.7 RDW 23.6 H Plt Count 433 MPV 7.8 Neutrophils % Structures Engineer Neutrophils % (Manual) 91.0 H* Band Neutrophils % 1.0 Lymphocytes % Structures Engineer Lymphocytes % (Manual) 4.0 L Monocytes % Structures Engineer Monocytes % (Manual) 1 L Eosinophils % Structures Engineer Eosinophils % (Manual) 0.0 Basophils % Structures Engineer Basophils % (Manual) 0.0 Myelocytes % (Man) 2 D Promyelocytes % (Man) 0 Blast Cells % (Manual) 0 Nucleated RBC % 0 Metamyelocytes 1 D Hypochromia 0 Platelet Estimate Normal Polychromasia 0 Poikilocytosis 1+ Anisocytosis 1+ Microcytosis 1+ Macrocytosis 0 Ovalocytes 1+ PT with INR 15.10 H INR 1.34 H PTT (Actin FS) 25.7 L Sodium Potassium Chloride Carbon Dioxide Anion Gap BUN Creatinine Creat Clearance w eGFR POC Glucometer [phone] Random Glucose Calcium Phosphorus Magnesium Total Bilirubin AST ALT Alkaline Phosphatase Total Protein Albumin 09/13/17 09/13/17 09/13/17 05:15 06:24 06:45 WBC RBC Hgb Hct MCV MCH MCHC RDW Plt Count MPV Neutrophils % Neutrophils % (Manual) Band Neutrophils % Lymphocytes % Lymphocytes % (Manual) Monocytes % Monocytes % (Manual) Eosinophils % Eosinophils % (Manual) Basophils % Basophils % (Manual) Myelocytes % (Man) Promyelocytes % (Man) Blast Cells % (Manual) Nucleated RBC % Metamyelocytes Hypochromia Platelet Estimate Polychromasia Poikilocytosis Anisocytosis Microcytosis Macrocytosis Ovalocytes PT with INR INR PTT (Actin FS) Sodium 141 Potassium 3.8 Chloride 104 Carbon Dioxide 26 Anion Gap 11 BUN 46 H Creatinine 1.1 D Creat Clearance w eGFR > 60 POC Glucometer 63.64715 [phone] Random Glucose 43 L* D Calcium 8.0 L Phosphorus 2.2 L D Magnesium 1.6 L Total Bilirubin 0.6 D AST 25 ALT 70 Alkaline Phosphatase 139 H Total Protein 5.1 L Albumin 1.8 L 09/13/17 09/13/17 09/13/17 12:25 16:13 21:20 WBC RBC Hgb Hct MCV MCH MCHC RDW Plt Count MPV Neutrophils % Neutrophils % (Manual) Band Neutrophils % Lymphocytes % Lymphocytes % (Manual) Monocytes % Monocytes % (Manual) Eosinophils % Eosinophils % (Manual) Basophils % Basophils % (Manual) Myelocytes % (Man) Promyelocytes % (Man) Blast Cells % (Manual) Nucleated RBC % Metamyelocytes Hypochromia Platelet Estimate Polychromasia Poikilocytosis Anisocytosis Microcytosis Macrocytosis Ovalocytes PT with INR INR PTT (Actin FS) Sodium Potassium Chloride Carbon Dioxide Anion Gap BUN Creatinine Creat Clearance w eGFR POC Glucometer 82.90636 119.99039 [phone] Random Glucose Calcium Phosphorus Magnesium Total Bilirubin AST ALT Alkaline Phosphatase Total Protein Albumin plan: dexamethason 4mg iv bid perform acth stimulation test day 2 cosyntropin .25mg iv push then draw cortisol level 1 hr later response should clarify need for low dose maintenance cortef 25mg daily
[2017-09-14] MEDS: VANCOMYCIN 1,250 MG in DEXTROSE 5%-WATER - 250 ML IVPB SCH (04:18)
[2017-09-14] MEDS: SODIUM CHLORIDE 1,000 ML IV SCH ×2 (06:39→12:59)
[2017-09-14] MEDS: INSULIN SLIDING SCALE (NOVOLOG) 1 VIAL SQ SCH ×4 (06:39→22:11)
[2017-09-14 07:14] LABS: ALBUMIN 1.6 g/dl (3.4-5.0); ANION GAP 12 (8-16); BLOOD UREA NITROGEN 29 mg/dL (7-18); CALCIUM 7.8 mg/dL (8.5-10.1); CHLORIDE 108 mmol/L (98-107); CO2 22 mmol/L (21-32); GLUCOSE,RANDOM 126 mg/dL (74-106); MAGNESIUM 2.2 mg/dL (1.8-2.4); POTASSIUM 3.7 mmol/L (3.5-5.1); SGOT/AST 28 U/L (15-37); SODIUM 142 mmol/L (136-145)
--- NOTE | 2017-09-14 07:19 | PN ---
Progress Note, Physician History of Present Illness: HPI 72 YOM with h/o CHF, COPD, pulmonary HTN, DM, A-fib, HLD, who was BIBA from SNF for lethargy and hypotension, found to have fever, tachycardia, tachypnea, lactic acid 2.5, sepsis and UTI and started on antibiotics. Given stress dose hydrocortisone. 24 HOUR EVENTS Transfer order placed for xfer to med/surg floor on 09/12/17. Patient's umbilical drainage culture resulted positive for MRSA, already on ertapenem, called Dr. Breen and she added vancomycin. Per Dr. Ward patient should start dexamethasone 4mg iv bid, perform ACTH stimulation test day 2 (protocol cosyntropin .25mg iv push, then draw cortisol level 1 hr later, response should clarify need for low dose maintenance cortef 25mg daily). SUBJECTIVE Patient states continued improvement, improved abdominal pain. 24 HOUR INTAKE & OUTPUT Intake: 2515cc Output: 400+unmeasured voids Net: N/A BM: Yes medium overnight LINES/TUBES/DRAINS PIV - Current Medication List Current Medications: Active Medications Acetaminophen (Tylenol -) 650 mg PO Q6H [facility] Last Admin: 09/14/17 02:09 Dose: 650 mg Albuterol/Ipratropium (Duoneb -) 1 amp NEB RQID [facility] Last Admin: 09/13/17 21:00 Dose: 1 amp Amino Acids (Prosource No Carb Liquid Pkt) 30 ml PO BID@0800,1730 [facility] Last Admin: 09/13/17 18:23 Dose: Not Given Apixaban (Eliquis -) 5 mg PO BID [facility] Last Admin: 09/13/17 21:15 Dose: 5 mg Atorvastatin Calcium (Lipitor -) 40 mg PO HS [facility] Last Admin: 09/13/17 21:15 Dose: 40 mg Clotrimazole (Lotrimin 1% Cream -) 1 applic TP DAILY [facility] Last Admin: 09/13/17 12:34 Dose: 1 applic Dexamethasone Sodium Phosphate (Decadron Injection -) 4 mg IVPUSH BID [facility] Dextrose (D50w (Vial) -) 25 gm IVPUSH PRN PRN PRN Reason: hypoglycemia Digoxin (Lanoxin -) 0.25 mg PO DAILY [facility] Last Admin: 09/13/17 09:22 Dose: 0.25 mg Sodium Chloride (Normal Saline -) 1,000 mls @ 75 mls/hr IV ASDIR [facility] Last Admin: 09/14/17 06:39 Dose: 75 mls/hr Ertapenem 1 gm/ Sodium (Chloride) 100 mls @ 200 mls/hr IVPB DAILY [facility] Last Admin: 09/13/17 09:21 Dose: 200 mls/hr Vancomycin HCl 1,250 mg/ (Dextrose) 250 mls @ 166.667 mls/hr IVPB BID@0400, 1600 [facility] PRN Reason: Protocol Last Admin: 09/14/17 04:18 Dose: 166.667 mls/hr Insulin Aspart (Novolog Vial Sliding Scale -) 1 vial SQ ACHS [facility] PRN Reason: Protocol Last Admin: 09/14/17 06:39 Dose: 2 units Non-Formulary Medication (Fluticasone/Vilanterol [Breo Ellipta 200-25 Mcg Inh]) 1 each IH DAILY [facility] Polyethylene Glycol (Miralax (For Daily Use) -) 17 gm PO DAILY [facility] Last Admin: 09/13/17 12:33 Dose: Not Given Tamsulosin HCl (Flomax -) 0.4 mg PO DAILY@0900 [facility] Last Admin: 09/13/17 09:22 Dose: 0.4 mg - Objective Vital Signs: Vital Signs Temperature 97.8 F 09/14/17 06:00 Pulse Rate 84 09/14/17 06:00 Respiratory Rate 15 09/14/17 06:00 Blood Pressure 138/99 09/14/17 06:00 O2 Sat by Pulse Oximetry (%) 97 09/13/17 21:48 Constitutional: Yes: Well Nourished, No Distress, Calm, Obese, Other (initially sleeping with head under blanket on CPAP face mask, awakens easily, able to answer questions appropriately) Eyes: Yes: WNL, Conjunctiva Clear, EOM Intact HENT: Yes: WNL, Atraumatic, Normocephalic Neck: Yes: WNL, Supple, Trachea Midline Cardiovascular: Yes: Pulse Irregular Respiratory: Yes: WNL, Regular, CTA Bilaterally, Other (on CPAP by face mask) Gastrointestinal: Yes: WNL, Normal Bowel Sounds, Soft, Abdomen, Obese. No: Tenderness Genitourinary: Yes: Other (states mild pain and difficulty starting urine stream but this is improved from yesterday). No: Mathews Present Musculoskeletal: Yes: WNL Extremities: Yes: WNL. No: Calf Tenderness, Cool, Cyanosis, Erythema Peripheral Pulses: Left Doralis Pedis: 2+, Right Dorsalis Pedis: 2+ Integumentary: Yes: Other (umbilical hernia with ~3 cm curvilinear superficial- appearing excoriation to a portion of the intertriginous area circumferential to the hernia, small amount of scabbing, no active drainage, nontender) ...Motor Strength: WNL Psychiatric: Yes: WNL, Alert Labs: CBC, BMP 09/13/17 05:15 INR, PTT INR 1.34 (0.82-1.09) H 09/13/17 05:15 - ....Imaging Ultrasound: Report Reviewed, Image Reviewed, Other (no acute disease process) Assessment/Plan 72 YOM with h/o CHF, COPD, LUCY on CPAP, restrictive lung disease 2/2 obesity, DM , A-fib, who was BIBA from SNF for AMS and hypotension, found to have fever, tachycardia, tachypnea, lactic acid 2.5, sepsis and UTI and started on antibiotics. Given stress dose hydrocortisone. RESP Respiratory distress, improved. Patient has h/o pulmonary hypertension, CHF, COPD, LUCY on CPAP, restrictive disease 2/2 obesity. Also with h/o anemia which is likely not helping but is mild. -DuoNeb scheduled -Fluticasone/Vilanterol CARDS #A-fib, chronic on AC. -Continue telemetry monitoring -Continue home Eliquis -Continue digoxin -Cardiology consult ID #Sepsis, improved. Likely 2/2 ESBL UTI which is being treated, also adrenal insufficiency now on stress dose hydrocortisone. -Continue ertapenem -ID consulting RENAL #SHAKIR, mild. Reported h/o CKD but Cr has always been 1.3 or below on [facility] records. Most likely 2/2 hypotension/sepsis and UTI, and hypovolemia. Less likely pyelonephritis as patient did not have CVA tenderness -Nephrology consult -Monitor renal function #Dehydration, improved. -Hold BP meds -IVF ENDO #DM, chronic. Patient hypoglycemic this AM. -Hold insulin for now -D50 prn -Endocrinology consult #Adrenal insufficiency. Patient was on Cortef. Now following Dr. Ward's recommendation as below. -Dexamethason 4mg IV BID (today is day #1) -Perform ACTH stimulation test day 2 (Cosyntropin .25mg IV push, draw cortisol level 1 hr later) -Determine need for low dose maintenance Cortef 25mg daily based on results [employer] #Excoriation to skin, stated chronic. Some active drainage which was cultured and grew several organisms including MRSA. Per the patient this is a chronic issue surrounding an umbilical hernia which he has had for many years, never repaired, always drains and scabs somewhat, maybe slightly more drainage recently but nontender and no erythema. Patient given a dose of vancomycin yesterday. Dr. Casarez not concerned for acute infection based on the patient's benign exam. -Discontinue vancomycin per Dr. Casarez's recommendations -Continue ertapenem for UTI NEURO #Altered mental status, resolved. Had been reported prior to being transferred from [facility] to [facility] ED. FEN -Monitor CMP/Mg/Phos -Replace lytes prn -Soft diet -Miralax prn constipation -Tamsulosin scheduled for BPH PPX DVT: Home Eliquis GI: None PT: Order placed DISPO Stable and appropriate for transfer to med/surg, order placed 09/12/17.
[2017-09-14 07:28] LABS: ALK PHOS 137 U/L (45-117); BILIRUBIN,TOTAL 0.5 mg/dL (0.2-1.0); CREATININE 0.8 mg/dL (0.7-1.3); PHOSPHOROUS 1.5 mg/dL (2.5-4.9); SGPT/ALT 60 U/L (12-78); TOT PROT 4.5 g/dl (6.4-8.2)
[2017-09-14] MEDS: ALBUTEROL SO4 2.5/IPRATROPIUM 0.5 INH SOL 3 ML VIAL.NEB. NEB SCH ×4 (07:55→21:05)
--- NOTE | 2017-09-14 08:15 | PN ---
Progress Note, Physician Chief Complaint: ID Vancomycin & Etepenem day 1 Decadron - Current Medication List Current Medications: Active Medications Acetaminophen (Tylenol -) 650 mg PO Q6H [facility] Last Admin: 09/14/17 02:09 Dose: 650 mg Albuterol/Ipratropium (Duoneb -) 1 amp NEB RQID [facility] Last Admin: 09/13/17 21:00 Dose: 1 amp Amino Acids (Prosource No Carb Liquid Pkt) 30 ml PO BID@0800,1730 [facility] Last Admin: 09/13/17 18:23 Dose: Not Given Apixaban (Eliquis -) 5 mg PO BID [facility] Last Admin: 09/13/17 21:15 Dose: 5 mg Atorvastatin Calcium (Lipitor -) 40 mg PO HS [facility] Last Admin: 09/13/17 21:15 Dose: 40 mg Clotrimazole (Lotrimin 1% Cream -) 1 applic TP DAILY [facility] Last Admin: 09/13/17 12:34 Dose: 1 applic Dexamethasone Sodium Phosphate (Decadron Injection -) 4 mg IVPUSH BID [facility] Dextrose (D50w (Vial) -) 25 gm IVPUSH PRN PRN PRN Reason: hypoglycemia Digoxin (Lanoxin -) 0.25 mg PO DAILY [facility] Last Admin: 09/13/17 09:22 Dose: 0.25 mg Sodium Chloride (Normal Saline -) 1,000 mls @ 75 mls/hr IV ASDIR [facility] Last Admin: 09/14/17 06:39 Dose: 75 mls/hr Ertapenem 1 gm/ Sodium (Chloride) 100 mls @ 200 mls/hr IVPB DAILY [facility] Last Admin: 09/13/17 09:21 Dose: 200 mls/hr Vancomycin HCl 1,250 mg/ (Dextrose) 250 mls @ 166.667 mls/hr IVPB BID@0400, 1600 [facility] PRN Reason: Protocol Last Admin: 09/14/17 04:18 Dose: 166.667 mls/hr Insulin Aspart (Novolog Vial Sliding Scale -) 1 vial SQ ACHS [facility] PRN Reason: Protocol Last Admin: 09/14/17 06:39 Dose: 2 units Non-Formulary Medication (Fluticasone/Vilanterol [Breo Ellipta 200-25 Mcg Inh]) 1 each IH DAILY [facility] Polyethylene Glycol (Miralax (For Daily Use) -) 17 gm PO DAILY [facility] Last Admin: 09/13/17 12:33 Dose: Not Given Tamsulosin HCl (Flomax -) 0.4 mg PO DAILY@0900 [facility] Last Admin: 09/13/17 09:22 Dose: 0.4 mg - Objective Vital Signs: Vital Signs Temperature 97.8 F 09/14/17 06:00 Pulse Rate 84 09/14/17 06:00 Respiratory Rate 15 09/14/17 06:00 Blood Pressure 138/99 09/14/17 06:00 O2 Sat by Pulse Oximetry (%) 97 09/13/17 21:48 Constitutional: Yes: No Distress Cardiovascular: Yes: S1, S2 Respiratory: Yes: WNL, CTA Bilaterally Gastrointestinal: Yes: WNL, Normal Bowel Sounds, Soft. No: Tenderness, Tenderness, Epigastrium Edema: Yes Labs: CBC, BMP 09/13/17 05:15 09/14/17 06:30 INR, PTT INR 1.34 (0.82-1.09) H 09/13/17 05:15 Assessment/Plan Microbiology 09/11/17 15:50 Abdomen Gram Stain - Final 09/09/17 16:31 Urine - Urine Clean Catch Urine Culture - Final Escherichia Coli Esbl Clinical Biochemical Geneticist 09/11/17 15:50 Abdomen Wound Culture - Preliminary Non Lactose Fermenting Gnb Presumptive Mrsa (Pbp2a Pos) Diphtheroid/Corynebacterium Pending Organism Laboratory Tests 09/09/17 09/13/17 09/14/17 16:31 05:15 06:30 WBC 13.0 H Hgb 11.2 L Hct 34.4 L Plt Count 433 Neutrophils % (Manual) 91.0 H* BUN 29 H D Creatinine 0.8 D Creat Clearance w eGFR > 60 Urine RBC (Auto) 4 Urine Bacteria Many Assessment Sepsis syndrome urinary tract source MDRO ESBL E Coli Respiratory failure BIPAP Severe COPD Atrial flutter Congestive heart failure Abd wound polymicroibial I saw it does not require treatment local wound care only Plan Stop Vancomycin and Ertepenem to Continue Leida WILDE
[2017-09-14] MEDS ORDERED: PT OWN MED DRAWER 7, Y5N ONE (09:30)
--- NOTE | 2017-09-14 09:50 | PN ---
Progress Note, Physician Chief Complaint: AWAKE MORE ALERT SONO BEDSIDE OF - Current Medication List Current Medications: Active Medications Acetaminophen (Tylenol -) 650 mg PO Q6H [facility] Last Admin: 09/14/17 02:09 Dose: 650 mg Albuterol/Ipratropium (Duoneb -) 1 amp NEB RQID [facility] Last Admin: 09/14/17 07:55 Dose: 1 amp Amino Acids (Prosource No Carb Liquid Pkt) 30 ml PO BID@0800,1730 [facility] Last Admin: 09/13/17 18:23 Dose: Not Given Apixaban (Eliquis -) 5 mg PO BID [facility] Last Admin: 09/13/17 21:15 Dose: 5 mg Atorvastatin Calcium (Lipitor -) 40 mg PO HS [facility] Last Admin: 09/13/17 21:15 Dose: 40 mg Clotrimazole (Lotrimin 1% Cream -) 1 applic TP DAILY [facility] Last Admin: 09/13/17 12:34 Dose: 1 applic Dexamethasone Sodium Phosphate (Decadron Injection -) 4 mg IVPUSH BID [facility] Dextrose (D50w (Vial) -) 25 gm IVPUSH PRN PRN PRN Reason: hypoglycemia Digoxin (Lanoxin -) 0.25 mg PO DAILY [facility] Last Admin: 09/13/17 09:22 Dose: 0.25 mg Sodium Chloride (Normal Saline -) 1,000 mls @ 75 mls/hr IV ASDIR [facility] Last Admin: 09/14/17 06:39 Dose: 75 mls/hr Ertapenem 1 gm/ Sodium (Chloride) 100 mls @ 200 mls/hr IVPB DAILY [facility] Last Admin: 09/13/17 09:21 Dose: 200 mls/hr Insulin Aspart (Novolog Vial Sliding Scale -) 1 vial SQ ACHS [facility] PRN Reason: Protocol Last Admin: 09/14/17 06:39 Dose: 2 units Non-Formulary Medication (Fluticasone/Vilanterol [Breo Ellipta 200-25 Mcg Inh]) 1 each IH DAILY [facility] Polyethylene Glycol (Miralax (For Daily Use) -) 17 gm PO DAILY [facility] Last Admin: 09/13/17 12:33 Dose: Not Given Tamsulosin HCl (Flomax -) 0.4 mg PO DAILY@0900 [facility] Last Admin: 09/13/17 09:22 Dose: 0.4 mg - Objective Vital Signs: Vital Signs Temperature 97.8 F 09/14/17 06:00 Pulse Rate 120 H 09/14/17 08:45 Respiratory Rate 21 09/14/17 08:45 Blood Pressure 106/62 09/14/17 08:45 O2 Sat by Pulse Oximetry (%) 96 09/14/17 08:39 Constitutional: Yes: Mild Distress Eyes: Yes: WNL HENT: Yes: WNL Neck: Yes: WNL Cardiovascular: Yes: Pulse Irregular Respiratory: Yes: On Nasal O2, Rales, SOB Gastrointestinal: Yes: WNL Genitourinary: Yes: Bladder Distention (RETNETION) Musculoskeletal: Yes: Muscle Weakness Extremities: Yes: Other Edema: Yes Peripheral Pulses WNL: Yes Integumentary: Yes: WNL, Venous Stasis Changes Wound/Incision: Yes: Other Neurological: Yes: Pre-Existing Deficit, Unsteady Gait, Weakness ...Motor Strength: LLE, RLE Psychiatric: Yes: WNL Labs: CBC, BMP 09/13/17 05:15 09/14/17 06:30 INR, PTT INR 1.34 (0.82-1.09) H 09/13/17 05:15 Problem List - Problems (1) CHF (congestive heart failure) Code(s): I50.9 - HEART FAILURE, UNSPECIFIED (2) COPD (chronic obstructive pulmonary disease) Code(s): J44.9 - CHRONIC OBSTRUCTIVE PULMONARY DISEASE, UNSPECIFIED (3) Hypotension Code(s): I95.9 - HYPOTENSION, UNSPECIFIED (4) Infection due to ESBL-producing Escherichia coli Code(s): A49.8 - OTHER BACTERIAL INFECTIONS OF UNSPECIFIED SITE; Z16.12 - EXTENDED SPECTRUM BETA LACTAMASE (ESBL) RESISTANCE (5) Sepsis Code(s): A41.9 - SEPSIS, UNSPECIFIED ORGANISM (6) UTI (urinary tract infection) Code(s): N39.0 - URINARY TRACT INFECTION, SITE NOT SPECIFIED (7) Acute exacerbation of chronic obstructive pulmonary disease (COPD) Code(s): J44.1 - CHRONIC OBSTRUCTIVE PULMONARY DISEASE W (ACUTE) EXACERBATION (8) Acute on chronic respiratory failure with hypoxia and hypercapnia Code(s): J96.21 - ACUTE AND CHRONIC RESPIRATORY FAILURE WITH HYPOXIA; J96.22 - ACUTE AND CHRONIC RESPIRATORY FAILURE WITH HYPERCAPNIA (9) Atrial fibrillation Code(s): I48.91 - UNSPECIFIED ATRIAL FIBRILLATION Qualifiers: Atrial fibrillation type: chronic Qualified Code(s): I48.2 - Chronic atrial fibrillation (10) Controlled diabetes mellitus with diabetic peripheral angiopathy without gangrene, without long-term current use of insulin Code(s): E11.51 - TYPE 2 DIABETES W DIABETIC PERIPHERAL ANGIOPATH W/O GANGRENE Assessment/Plan IV ABX RENAL SONO FOR RETENTION RESTART FLOMAX CARDIO/RENAL EVAL BGM SSI 02 SUPPORT
[2017-09-14] MEDS: ERTAPENEM SODIUM 1 GM in SODIUM CHLORIDE 100 ML IVPB SCH (10:23)
[2017-09-14] MEDS: DEXAMETHASONE SOD PHOSPHATE 4 MG/1 ML VIAL IVPUSH SCH ×3 (10:26→22:11)
[2017-09-14] MEDS: TAMSULOSIN HCL 0.4 MG CAP.ER.24H (FP) PO SCH (10:26)
[2017-09-14] MEDS: AMINO ACIDS/PROTEIN HYDROLYS 30 ML LIQUID.PKT PO SCH ×2 (10:26→16:55)
[2017-09-14] MEDS: DIGOXIN 0.125 MG TABLET (FP) PO SCH (10:27)
[2017-09-14] MEDS: APIXABAN 5 MG TABLET PO SCH ×2 (10:27→22:11)
[2017-09-14] MEDS: CLOTRIMAZOLE 1% CREAM 15 GM TUBE TP SCH (10:28)
[2017-09-14] MEDS: POLYETHYLENE GLYCOL 3350 119 GM BTL PO SCH (10:29)
--- NOTE | 2017-09-14 11:08 | PN ---
Progress Note, DATA MANAGEMENT SPECIALIST - Note Progress Note: Selected Entries 09/14/17 09/14/17 09/14/17 02:07 06:00 08:44 Lunch 50% Temperature 98.2 F 97.8 F 09/14/17 10:00 Lunch Temperature 97.6 F MBS reviewed with pt/staff. Rec: moist solids, alternate solids with liquids and complete meal with liquid.
[2017-09-14] MEDS ORDERED: DEXTROSE 50%-WATER - 25 GM/50 ML VIAL IVPUSH PRN (11:36)
--- NOTE | 2017-09-14 11:38 | PN ---
Teaching Attending Note Name of Resident: Aleena Randle ATTENDING PHYSICIAN STATEMENT I saw and evaluated the patient. I reviewed the resident's note and discussed the case with the resident. I agree with the resident's findings and plan as documented. SUBJECTIVE: Patient seen and examined in the ICU. Awake and alert. Breathing feels stable. Hemodynamics have remained stable. Resolving lower abdominal/suprapubic discomfort. Still with some difficulty with urination. Had a BM. Intake & Output 09/11/17 09/12/17 09/13/17 09/14/17 23:59 23:59 23:59 23:59 Intake Total 2670 2267.5 2515 977.5 Output Total 200 400 100 Balance 2670 2067.5 2115 877.5 Weight 280 lb 4.8 oz 281 lb 6.4 oz 285 lb 9.6 oz Last Vital Signs Temp Pulse Resp BP Pulse Ox 97.6 F 108 H 20 98/52 96 09/14/17 10:00 09/14/17 10:27 09/14/17 10:00 09/14/17 10:00 09/14/17 08:39 Active Medications Acetaminophen (Tylenol -) 650 mg PO Q6H [facility] Last Admin: 09/14/17 10:32 Dose: 650 mg Albuterol/Ipratropium (Duoneb -) 1 amp NEB RQID [facility] Last Admin: 09/14/17 07:55 Dose: 1 amp Amino Acids (Prosource No Carb Liquid Pkt) 30 ml PO BID@0800,1730 [facility] Last Admin: 09/14/17 10:26 Dose: 30 ml Apixaban (Eliquis -) 5 mg PO BID [facility] Last Admin: 09/14/17 10:27 Dose: 5 mg Atorvastatin Calcium (Lipitor -) 40 mg PO HS [facility] Last Admin: 09/13/17 21:15 Dose: 40 mg Clotrimazole (Lotrimin 1% Cream -) 1 applic TP DAILY [facility] Last Admin: 09/14/17 10:28 Dose: 1 applic Dexamethasone Sodium Phosphate (Decadron Injection -) 4 mg IVPUSH BID [facility] Last Admin: 09/14/17 10:27 Dose: Not Given Dextrose (D50w (Vial) -) 25 gm IVPUSH PRN PRN PRN Reason: hypoglycemia Digoxin (Lanoxin -) 0.25 mg PO DAILY [facility] Last Admin: 09/14/17 10:27 Dose: 0.25 mg Sodium Chloride (Normal Saline -) 1,000 mls @ 75 mls/hr IV ASDIR [facility] Last Admin: 09/14/17 06:39 Dose: 75 mls/hr Ertapenem 1 gm/ Sodium (Chloride) 100 mls @ 200 mls/hr IVPB DAILY [facility] Last Admin: 09/14/17 10:23 Dose: 200 mls/hr Insulin Aspart (Novolog Vial Sliding Scale -) 1 vial SQ ACHS [facility] PRN Reason: Protocol Last Admin: 09/14/17 06:39 Dose: 2 units Non-Formulary Medication (Fluticasone/Vilanterol [Breo Ellipta 200-25 Mcg Inh]) 1 each IH DAILY [facility] Polyethylene Glycol (Miralax (For Daily Use) -) 17 gm PO DAILY [facility] Last Admin: 09/14/17 10:29 Dose: Not Given Tamsulosin HCl (Flomax -) 0.4 mg PO DAILY@0900 [facility] Last Admin: 09/14/17 10:26 Dose: 0.4 mg Gen: Awake and alert Heart: RRR Lung: distant breath sounds, no wheezes Abd: soft, nontender Ext: no edema Laboratory Results - last 24 hr 09/11/17 09/13/17 09/13/17 22:10 12:25 16:13 Sodium Potassium Chloride Carbon Dioxide Anion Gap BUN Creatinine Creat Clearance w eGFR POC Glucometer 215.90967 82.29803 119.27395 Random Glucose Calcium Phosphorus Magnesium Total Bilirubin AST ALT Alkaline Phosphatase Total Protein Albumin Digoxin 09/13/17 09/14/17 09/14/17 21:20 06:20 06:30 Sodium 142 Potassium 3.7 Chloride 108 H Carbon Dioxide 22 Anion Gap 12 BUN 29 H D Creatinine 0.8 D Creat Clearance w eGFR > 60 POC Glucometer 167.46292 176.68980 Random Glucose 126 H D Calcium 7.8 L Phosphorus 1.5 L D Magnesium 2.2 D Total Bilirubin 0.5 AST 28 ALT 60 Alkaline Phosphatase 137 H Total Protein 4.5 L Albumin 1.6 L Digoxin 1.1927 A/P UTI Sepsis Lactic Acidosis resolved LV Diastolic Dysfunction COPD Morbid Obesity Obstructive Sleep Apnea Paroxysmal Atrial Fibrillation HTN Hyperlipidemia (?) Hypoadrenalism - Continue ABX coverage - Taper stress dose steroids - inhaled bronchodilators - O2 to keep SpO2 >90% - NIPPV to assist in work of breathing - rate control - continue anticoagulation - Cardiac Telemetry monitoring Dr Emanuel Critical care time spent in reviewing chart, evaluating patient and formulating plan 36 min
--- NOTE | 2017-09-14 11:51 | PN ---
Progress Note (short form) - Note Progress Note: Chief Complaint: hypotension History of Present Illness: feels better, weakness improved. no cp, no sob/orthopnea (laying flat), no palpitations remains on IVF Current Medications Generic Name Dose Route Start Last Admin Trade Name Freq PRN Reason Stop Dose Admin Acetaminophen 650 mg 09/14/17 18:00 Tylenol - PO Q6HPO ARVIND Albuterol/Ipratropium 1 amp 09/14/17 12:00 Duoneb - NEB RQID AR[facility]IND Amino Acids 30 ml 09/14/17 17:30 Prosource No Carb Liquid Pkt PO BID@0800,1730 [facility] Apixaban 5 mg 09/14/17 22:00 Eliquis - PO BID AR[facility]IND Atorvastatin Calcium 40 mg 09/14/17 22:00 Lipitor - PO HS [facility] Clotrimazole 1 applic 09/15/17 10:00 Lotrimin 1% Cream - TP DAILY [facility] Dexamethasone Sodium Phosphate 4 mg 09/14/17 09:00 09/14/17 10:27 Decadron Injection - IVPUSH Not Given BID [facility] Dextrose 25 gm 09/14/17 11:36 D50w (Vial) - IVPUSH PRN PRN hypoglycemia Digoxin 0.25 mg 09/15/17 10:00 Lanoxin - PO DAILY [facility] Ertapenem 1 gm/ Sodium 100 mls @ 200 mls/hr 09/12/17 12:45 09/14/17 10:23 Chloride IVPB 200 mls/hr DAILY [facility] Administration Sodium Chloride 1,000 mls @ 75 mls/hr 09/14/17 11:36 Normal Saline - IV ASDIR [facility] Insulin Aspart 1 vial 09/14/17 16:30 Novolog Vial Sliding Scale - SQ ACHS [facility] Protocol Non-Formulary Medication 1 each 09/15/17 10:00 Fluticasone/Vilanterol [Breo Ellipta 200-25 Mcg Inh] IH DAILY [facility] Polyethylene Glycol 17 gm 09/13/17 10:45 09/14/17 10:29 Miralax (For Daily Use) - PO Not Given DAILY [facility] Tamsulosin HCl 0.4 mg 09/13/17 09:00 09/14/17 10:26 Flomax - PO 0.4 mg DAILY@0900 [facility] Administration - Objective Vital Signs: Vital Signs Temp 97.6 F 09/14/17 10:00 Pulse 108 H 09/14/17 10:27 Resp 20 09/14/17 10:00 BP 98/52 09/14/17 10:00 Pulse Ox 96 09/14/17 08:39 Intake & Output 09/13/17 09/13/17 09/14/17 11:59 23:59 11:59 Intake Total 1030 1485 977.5 Output Total 400 100 Balance 1030 1085 877.5 Weight 281 lb 6.4 oz 285 lb 9.6 oz Intake: IV 600 225 487.5 Normal Saline - 1,000 ml 600 225 487.5 @ 75 mls/hr IV ASDIR ARVIND Rx#:[id number] IVPB 50 500 250 Oral 380 760 240 Output: Urine 400 100 Void 400 100 Other: Voiding Method Bedside Commode Urinal Urinal # Unmeasured Voids Void 2 1 2 Bowel Movement Yes: medium, soft No Yes: medium, soft # Bowel Movements 1 1 Weight Measurement Method Built in [facility] Built in [facility] Constitutional: Yes: Well Nourished, No Distress, Calm Cardiovascular: Yes: Pulse Irregular (soft), S1, S2. No: JVD, Gallop, Murmur Respiratory: Yes: Regular, CTA Bilaterally. No: Accessory Muscle Use, Rales, Wheezes Extremities: No: Cold Edema: trace Neurological: Yes: Alert, Oriented Psychiatric: No: Agitated Labs: Laboratory Last Values WBC 13.0 K/mm3 (4.0-10.0) H 09/13/17 05:15 RBC 3.76 M/mm3 (4.00-5.60) L 09/13/17 05:15 Hgb 11.2 GM/dL (11.7-16.9) L 09/13/17 05:15 Hct 34.4 % (35.4-49) L 09/13/17 05:15 MCV 91.5 fl (80-96) 09/13/17 05:15 MCH 29.9 pg (25.7-33.7) 09/13/17 05:15 MCHC 32.7 g/dl (32.0-35.9) 09/13/17 05:15 RDW 23.6 % (11.9-15.9) H 09/13/17 05:15 Plt Count 433 K/MM3 (134-434) 09/13/17 05:15 MPV 7.8 fl (7.5-11.1) 09/13/17 05:15 Neutrophils % [facility] 09/13/17 05:15 Neutrophils % (Manual) 91.0 % (42.8-82.8) H* 09/13/17 05:15 Band Neutrophils % 1.0 % 09/13/17 05:15 Lymphocytes % [facility]ovascular Tech 09/13/17 05:15 Lymphocytes % (Manual) 4.0 % (8-40) L 09/13/17 05:15 Monocytes % Cardi[facility] Tech 09/13/17 05:15 Monocytes % (Manual) 1 % (3.8-10.2) L 09/13/17 05:15 Eosinophils % Cardiovascular Tech 09/13/17 05:15 Eosinophils % (Manual) 0.0 % (0-4.5) 09/13/17 05:15 Basophils % Cardiovascular Tech 09/13/17 05:15 Basophils % (Manual) 0.0 % (0-2.0) 09/13/17 05:15 Myelocytes % (Man) 2 % (0-2) D 09/13/17 05:15 Promyelocytes % (Man) 0 % (0-2) 09/13/17 05:15 Blast Cells % (Manual) 0 % (0-0) 09/13/17 05:15 Nucleated RBC % 0 % (0-0) 09/13/17 05:15 Metamyelocytes 1 % (0-2) D 09/13/17 05:15 Hypochromia 0 09/13/17 05:15 Platelet Estimate Normal 09/13/17 05:15 Platelet Comment No clotting detected 09/12/17 05:05 Polychromasia 0 09/13/17 05:15 Poikilocytosis 1+ 09/13/17 05:15 Anisocytosis 1+ 09/13/17 05:15 Microcytosis 1+ 09/13/17 05:15 Macrocytosis 0 09/13/17 05:15 Spherocytes 2+ 09/10/17 09:10 Tear Drop Cells 1+ 09/10/17 09:10 Ovalocytes 1+ 09/13/17 05:15 Stomatocytes 3+ 09/10/17 09:10 PT with INR 15.10 SEC (9.98-11.88) H 09/13/17 05:15 INR 1.34 (0.82-1.09) H 09/13/17 05:15 PTT (Actin FS) 25.7 SECONDS (26.9-34.4) L 09/13/17 05:15 Sodium 142 mmol/L (136-145) 09/14/17 06:30 Potassium 3.7 mmol/L (3.5-5.1) 09/14/17 06:30 Chloride 108 mmol/L (98-107) H 09/14/17 06:30 Carbon Dioxide 22 mmol/L (21-32) 09/14/17 06:30 Anion Gap 12 (8-16) 09/14/17 06:30 BUN 29 mg/dL (7-18) H D 09/14/17 06:30 Creatinine 0.8 mg/dL (0.7-1.3) D 09/14/17 06:30 Creat Clearance w eGFR > 60 (>60) 09/14/17 06:30 POC Glucometer 176.82494 UNITS (80-120) 09/14/17 06:20 Random Glucose 126 mg/dL (74-106) H D 09/14/17 06:30 Lactic Acid 1.4 mmol/L (0.0-2.0) 09/09/17 17:40 Calcium 7.8 mg/dL (8.5-10.1) L 09/14/17 06:30 Phosphorus 1.5 mg/dL (2.5-4.9) L D 09/14/17 06:30 Magnesium 2.2 mg/dL (1.8-2.4) D 09/14/17 06:30 Total Bilirubin 0.5 mg/dL (0.2-1.0) 09/14/17 06:30 AST 28 U/L (15-37) 09/14/17 06:30 ALT 60 U/L (12-78) 09/14/17 06:30 Alkaline Phosphatase 137 U/L (45-117) H 09/14/17 06:30 Creatine Kinase 54 IU/L (39-308) 09/09/17 13:47 Troponin I 0.04 ng/ml (0.00-0.05) 09/10/17 09:10 B-Natriuretic Peptide 742.22 pg/ml (5-125) H 09/11/17 05:26 Total Protein 4.5 g/dl (6.4-8.2) L 09/14/17 06:30 Albumin 1.6 g/dl (3.4-5.0) L 09/14/17 06:30 TSH 3.00 uIU/ml (0.358-3.74) D 09/10/17 09:10 Cortisol AM Sample 142.5 ug/dL (.) 09/11/17 05:26 Cortisol PM Sample Cancelled 09/12/17 19:30 Urine Color [place] 09/09/17 16:31 Urine Appearance Cloudy 09/09/17 16:31 Urine pH 5.0 (5.0-8.0) 09/09/17 16:31 Ur Specific [place] 1.015 (1.001-1.035) 09/09/17 16:31 Urine Protein Negative (NEGATIVE) 09/09/17 16:31 Urine Glucose (UA) Negative (NEGATIVE) 09/09/17 16:31 Urine Ketones Negative (NEGATIVE) 09/09/17 16:31 Urine Blood Negative (NEGATIVE) 09/09/17 16:31 Urine Nitrite Negative (NEGATIVE) 09/09/17 16:31 Urine Bilirubin Negative (NEGATIVE) 09/09/17 16:31 Urine Urobilinogen 4.0 e.u/dl mg/dL (0.2-1.0) 09/09/17 16:31 Ur Leukocyte Esterase 3+ (NEGATIVE) H 09/09/17 16:31 Urine WBC (Auto) 142 /hpf (3-5) 09/09/17 16:31 Urine RBC (Auto) 4 /hpf (0-3) 09/09/17 16:31 Ur Epithelial Cells Rare /HPF (FEW) 09/09/17 16:31 Urine Bacteria Many /hpf (NONE SEEN) 09/09/17 16:31 Hyaline Casts 3 /lpf 09/09/17 16:31 Urine Mucus Rare 09/09/17 16:31 Digoxin 1.1927 ng/ml (0.8-2.0) 09/14/17 06:30 Blood Type O POSITIVE 09/09/17 13:36 Antibody Screen Negative 09/09/17 13:36 EKG: Other (tele: afib 100s) Echo 08/28: TDS. nl LV size. prob nl LVSF. RV tds. valves TDS. Echo 07/2016: Nl lv/rv. 1+ AR mibi 12/2012: small posterior ischemia vs artifact, nl lvef, no tid cxr: incr markings diffusely, no infiltrate/effusions--no change vs prior EKG 09/09: afib; nonsp ST-Ts diffusely, slightly more pronounced than prior est cct 35 mins a/p: 72 yo male with h/o AFib s/p prior DCCV 12/2015 to SR on AC, HTN, HL, dchf , PVCs with palpitations, morbid obesity, LUCY on bipap, severe COPD, here with sob. hypotension, urosepsis: -urine growing E. coli (ESBL) -hemodynamics improving. still requiring IVF. -cont abx -no ischemic ecg changes, trop neg x 2 -holding CCB, BB, diuretics for now chronic diastolic chf: - 07/28 copd admit with marked pedal edema treated with lasix--d/c wt 314. sent out on lasix 40 po bid. - 08/28 admit with prolonged volume-up during last admit 08/28 (in setting of peristent rapid AF), requiring lasix 100 iv bid for diuresis. - new dry wt on last discharge 287 lbs (+signif muscle atrophy from prolonged bedbound state). - no accurate weight here yet (cannot stand) - discharged on torsemide 100 qd, holding currently for hypotension - for now is euvolemic off torsemide and with IVF paroxysmal AF/flutter: -on eliquis for AC -new dx 2015--recurred soon after initially successful DCCV plus amio then ( amio stopped given risks of pulm toxicity) -HR persistently rapid last admit 08/28 despite home regimen verapamil 240 bid plus digoxin continued--? was exacerbating refractory diast chf. -dig increased to 0.25 qd (level WNL), metoprolol 25mg qd added-->HR improved significantly -plan was to continue same meds and, if HR remains mostly <110-120 and no signf this was causing refractory/recurrent HF, would defer AVN ablation/PPM -presently, holding verapamil and metoprolol given hypotension, HR currently remains stable -HRs rapid overnight 09/10, did not receive digoxin yesterday. -09/11: HR currently controlled. dig level 1.3--cont same dose (0.25mg qd) given necessity for for AF control to minimize future CHF exacerbations -09/12: HR remains rapid at times, mostly acceptable tachy burden. continue digoxin. BP improving with tx of urosepsis. expect will be able to resume verapamil and metoprolol in 24-48 hrs - 09/13: HR remains rapid at times, mostly acceptable tachy burden. continue digoxin (will recheck level). -09/14: HR ok. Cont dig. Resume home verapamil and toprol once bp stable. Still running low and dependent on IVF today. copd: - ? end-stage copd at this point, freq admits - per pulm deconditioning, hypoalbuminemia: -nutrition per critical care hld: -continue home statin htn: -low bp's here, workup ongoing as above -holding meds as necessary possible cad: -pt had borderline positive mibi in 2013 vs soft tissue attenuation artifact -never had angina sx's -ECG nonsp ST-T no signif change vs prior. trop neg x2. no anginal sx's -continue medical management with statin, AC without ASA
--- NOTE | 2017-09-14 13:57 | PN ---
Progress Note, Physician History of Present Illness: Pt seen and examined at bedside. He denies shortness of breath. He complains of urinary incontinence. - Current Medication List Current Medications: Active Medications Acetaminophen (Tylenol -) 650 mg PO Q6HPO [facility] Albuterol/Ipratropium (Duoneb -) 1 amp NEB RQID [facility] Amino Acids (Prosource No Carb Liquid Pkt) 30 ml PO BID@0800,1730 [facility] Apixaban (Eliquis -) 5 mg PO BID [facility] Atorvastatin Calcium (Lipitor -) 40 mg PO HS [facility] Budesonide/Formoterol Fumarate (Symbicort 160/4.5mcg -) 1 puff IH BID [facility] Clotrimazole (Lotrimin 1% Cream -) 1 applic TP DAILY [facility] Cosyntropin (Cortrosyn -) 0.25 mg IVPUSH ONCE ONE Stop: 09/14/17 17:01 Dexamethasone Sodium Phosphate (Decadron Injection -) 4 mg IVPUSH BID [facility] Last Admin: 09/14/17 10:27 Dose: Not Given Dextrose (D50w (Vial) -) 25 gm IVPUSH PRN PRN PRN Reason: hypoglycemia Digoxin (Lanoxin -) 0.25 mg PO DAILY [facility] Ertapenem 1 gm/ Sodium (Chloride) 100 mls @ 200 mls/hr IVPB DAILY [facility] Last Admin: 09/14/17 10:23 Dose: 200 mls/hr Sodium Chloride (Normal Saline -) 1,000 mls @ 75 mls/hr IV ASDIR [facility] Insulin Aspart (Novolog Vial Sliding Scale -) 1 vial SQ ACHS [facility] PRN Reason: Protocol Polyethylene Glycol (Miralax (For Daily Use) -) 17 gm PO DAILY [facility] Last Admin: 09/14/17 10:29 Dose: Not Given Tamsulosin HCl (Flomax -) 0.4 mg PO DAILY@0900 [facility] Last Admin: 09/14/17 10:26 Dose: 0.4 mg - Objective Vital Signs: Vital Signs Temperature 97.6 F 09/14/17 12:14 Pulse Rate 107 H 09/14/17 12:14 Respiratory Rate 20 09/14/17 12:14 Blood Pressure 104/49 09/14/17 12:14 O2 Sat by Pulse Oximetry (%) 95 09/14/17 12:14 Constitutional: Yes: Calm Eyes: Yes: Conjunctiva Clear HENT: Yes: Atraumatic Neck: Yes: Supple Cardiovascular: Yes: S1, S2 Respiratory: Yes: CTA Bilaterally Gastrointestinal: Yes: Soft, Abdomen, Obese Genitourinary: Yes: Incontinence Musculoskeletal: Yes: WNL Edema: No Neurological: Yes: Oriented Psychiatric: Yes: Oriented Labs: CBC, BMP 09/13/17 05:15 09/14/17 06:30 INR, PTT INR 1.34 (0.82-1.09) H 09/13/17 05:15 Problem List - Problems (1) CHF (congestive heart failure) Code(s): I50.9 - HEART FAILURE, UNSPECIFIED (2) COPD (chronic obstructive pulmonary disease) Code(s): J44.9 - CHRONIC OBSTRUCTIVE PULMONARY DISEASE, UNSPECIFIED (3) Hypotension Code(s): I95.9 - HYPOTENSION, UNSPECIFIED (4) Sepsis Code(s): A41.9 - SEPSIS, UNSPECIFIED ORGANISM Assessment/Plan Current Medications Generic Name Dose Route Start Last Admin Trade Name Freq PRN Reason Stop Dose Admin Acetaminophen 650 mg 09/14/17 18:00 Tylenol - PO Q6HPO [facility] Albuterol/Ipratropium 1 amp 09/14/17 12:00 Duoneb - NEB RQID [facility] Amino Acids 30 ml 09/14/17 17:30 Prosource No Carb Liquid Pkt PO BID@0800,1730 [facility] Apixaban 5 mg 09/14/17 22:00 Eliquis - PO BID [facility] Atorvastatin Calcium 40 mg 09/14/17 22:00 Lipitor - PO HS [facility] Budesonide/Formoterol Fumarate 1 puff 09/14/17 14:00 Symbicort 160/4.5mcg - IH BID [facility] Clotrimazole 1 applic 09/15/17 10:00 Lotrimin 1% Cream - TP DAILY [facility] Cosyntropin 0.25 mg 09/14/17 17:00 Cortrosyn - IVPUSH 09/14/17 17:01 ONCE ONE Dexamethasone Sodium Phosphate 4 mg 09/14/17 09:00 09/14/17 10:27 Decadron Injection - IVPUSH Not Given BID [facility] Dextrose 25 gm 09/14/17 11:36 D50w (Vial) - IVPUSH PRN PRN hypoglycemia Digoxin 0.25 mg 09/15/17 10:00 Lanoxin - PO DAILY [facility] Ertapenem 1 gm/ Sodium 100 mls @ 200 mls/hr 09/12/17 12:45 09/14/17 10:23 Chloride IVPB 200 mls/hr DAILY [facility] Administration Sodium Chloride 1,000 mls @ 75 mls/hr 09/14/17 11:36 Normal Saline - IV ASDIR [facility] Insulin Aspart 1 vial 09/14/17 16:30 Novolog Vial Sliding Scale - SQ ACHS [facility] Protocol Polyethylene Glycol 17 gm 09/13/17 10:45 09/14/17 10:29 Miralax (For Daily Use) - PO Not Given DAILY [facility] Tamsulosin HCl 0.4 mg 09/13/17 09:00 09/14/17 10:26 Flomax - PO 0.4 mg DAILY@0900 [facility] Administration Laboratory Tests 08/11/17 09/10/17 09/11/17 07:00 09:10 05:26 Creatinine 0.8 1.4 H D 1.3 Phosphorus 09/12/17 09/14/17 05:05 06:30 Creatinine 1.4 H Phosphorus 1.5 L D Impression 1. SHAKIR 2. CHF 3. obstructive sleep apnea 4. obesity 5. DM 6. HTN 7. hyperlipidemia 8. resp failure requiring bipap 9. sepsis 10. UTI Plan - renal function stable - replace phos - renal ultrasound reviewed - abx per ID - consider urology eval Dr Aguilar
[2017-09-14] MEDS: BUDESONIDE/FORMETEROL FUMARATE 160/4.5 mcg INHALER IH SCH ×2 (14:56→22:10)
[2017-09-14] MEDS: NAPH,MB-DB/K PH,MBDB POWDER PACKET PO SCH ×2 (14:56→22:12)
[2017-09-14] MEDS ORDERED: COSYNTROPIN 0.25 MG VIAL IVPUSH ONE ×2 (17:00)
[2017-09-14] MEDS ORDERED: APIXABAN 2.5 MG TABLET PO SCH (22:00)
[2017-09-14] MEDS: ATORVASTATIN CA 40 MG TABLET (FP) PO SCH (22:11)
[2017-09-14] MEDS ORDERED: INSULIN (NOVOLOG) ASPART 100 UNITS/ML 10ML VIAL ONE (22:22)
[2017-09-15] MEDS: ACETAMINOPHEN 325 MG TABLET (FP) PO SCH ×3 (00:13→13:56)
[2017-09-15] MEDS: NAPH,MB-DB/K PH,MBDB POWDER PACKET PO SCH ×3 (06:01→21:34)
[2017-09-15] MEDS: INSULIN SLIDING SCALE (NOVOLOG) 1 VIAL SQ SCH ×4 (06:02→21:34)
[2017-09-15] MEDS ORDERED: INSULIN (NOVOLOG) ASPART 100 UNITS/ML 10ML VIAL ONE ×2 (06:25→12:15)
[2017-09-15] MEDS: ALBUTEROL SO4 2.5/IPRATROPIUM 0.5 INH SOL 3 ML VIAL.NEB. NEB SCH ×4 (07:35→20:31)
[2017-09-15] MEDS ORDERED: PT OWN MED DRAWER 7, Y5N ONE ×3 (08:36→09:38)
[2017-09-15] MEDS: COSYNTROPIN 0.25 MG VIAL IVPUSH ONE ×2 (09:14→10:52)
[2017-09-15] MEDS: TAMSULOSIN HCL 0.4 MG CAP.ER.24H (FP) PO SCH (09:17)
[2017-09-15] MEDS: AMINO ACIDS/PROTEIN HYDROLYS 30 ML LIQUID.PKT PO SCH ×3 (09:17→19:39)
[2017-09-15] MEDS: DIGOXIN 0.125 MG TABLET (FP) PO SCH (09:18)
[2017-09-15] MEDS: APIXABAN 5 MG TABLET PO SCH ×2 (09:24→21:32)
[2017-09-15] MEDS: CLOTRIMAZOLE 1% CREAM 15 GM TUBE TP SCH (09:25)
[2017-09-15] MEDS: BUDESONIDE/FORMETEROL FUMARATE 160/4.5 mcg INHALER IH SCH ×2 (09:25→21:30)
[2017-09-15] MEDS ORDERED: PATIENT'S OWN MEDICATION (NON-FORMULARY) (Fluticasone/Vilanterol [Breo Ellipta 200-25 Mcg IH SCH (10:00)
[2017-09-15] MEDS: DEXAMETHASONE SOD PHOSPHATE 4 MG/1 ML VIAL IVPUSH SCH ×2 (10:52→21:31)
[2017-09-15] MEDS: POLYETHYLENE GLYCOL 3350 119 GM BTL PO SCH ×2 (10:53→12:18)
--- NOTE | 2017-09-15 10:56 | PN ---
Progress Note, Physician Chief Complaint: Weakness, hypotension History of Present Illness: NAD, in bed on Nasal O2 BIPAP PRN wants to get out of bed noticed umbilical drainage, has umbilical hernia,says it's been draining for over a year -seen by GI surgery, ordered CT abd/pelvis with po gastrograffin and IV contrast -seen by speech therapy, barium swallow done -recommended diabetic dysphagia whole + glucerna+ thin liquids -crush meds with apple sauce - Current Medication List Current Medications: Active Medications Acetaminophen (Tylenol -) 650 mg PO Q6HPO [facility] Last Admin: 09/15/17 06:02 Dose: 650 mg Albuterol/Ipratropium (Duoneb -) 1 amp NEB RQID [facility] Last Admin: 09/15/17 07:35 Dose: 1 amp Amino Acids (Prosource No Carb Liquid Pkt) 30 ml PO BID@0800,1730 [facility] Last Admin: 09/15/17 09:17 Dose: 30 ml Apixaban (Eliquis -) 5 mg PO BID [facility] Last Admin: 09/15/17 09:24 Dose: 5 mg Atorvastatin Calcium (Lipitor -) 40 mg PO HS [facility] Last Admin: 09/14/17 22:11 Dose: 40 mg Budesonide/Formoterol Fumarate (Symbicort 160/4.5mcg -) 1 puff IH BID [facility] Last Admin: 09/15/17 09:25 Dose: 1 puff Clotrimazole (Lotrimin 1% Cream -) 1 applic TP DAILY [facility] Last Admin: 09/15/17 09:25 Dose: Not Given Dexamethasone Sodium Phosphate (Decadron Injection -) 4 mg IVPUSH BID [facility] Last Admin: 09/14/17 22:11 Dose: 4 mg Dextrose (D50w (Vial) -) 25 gm IVPUSH PRN PRN PRN Reason: hypoglycemia Digoxin (Lanoxin -) 0.25 mg PO DAILY [facility] Last Admin: 09/15/17 09:18 Dose: 0.25 mg Ertapenem 1 gm/ Sodium (Chloride) 100 mls @ 200 mls/hr IVPB DAILY [facility] Last Admin: 09/14/17 10:23 Dose: 200 mls/hr Sodium Chloride (Normal Saline -) 1,000 mls @ 75 mls/hr IV ASDIR [facility] Last Admin: 09/14/17 12:59 Dose: 75 mls/hr Insulin Aspart (Novolog Vial Sliding Scale -) 1 vial SQ ACHS [facility] PRN Reason: Protocol Last Admin: 09/15/17 06:02 Dose: 4 unit Polyethylene Glycol (Miralax (For Daily Use) -) 17 gm PO DAILY [facility] Last Admin: 09/14/17 10:29 Dose: Not Given Potassium Phos/Sodium Phos (Phos-Nak Packet -) 1 packet PO TID [facility] Stop: 09/15/17 22:01 Last Admin: 09/15/17 06:01 Dose: 1 packet Tamsulosin HCl (Flomax -) 0.4 mg PO DAILY@0900 [facility] Last Admin: 09/15/17 09:17 Dose: 0.4 mg - Objective Vital Signs: Vital Signs Temperature 97.6 F 09/15/17 09:43 Pulse Rate 94 H 09/15/17 09:43 Respiratory Rate 18 09/15/17 09:43 Blood Pressure 101/54 09/15/17 09:43 O2 Sat by Pulse Oximetry (%) 98 09/15/17 00:00 Constitutional: Yes: Well Nourished, No Distress, Calm Cardiovascular: Yes: Regular Rate and Rhythm Respiratory: Yes: Regular Gastrointestinal: Yes: Normal Bowel Sounds, Soft, Abdomen, Obese, Other ( Umbilical drainage) Musculoskeletal: Yes: WNL Extremities: Yes: WNL Edema: Yes Edema: LLE: Trace, RLE: Trace Peripheral Pulses WNL: Yes Neurological: Yes: Alert, Oriented Psychiatric: Yes: Alert, Oriented Labs: CBC, BMP 09/13/17 05:15 09/14/17 06:30 INR, PTT INR 1.34 (0.82-1.09) H 09/13/17 05:15 Problem List - Problems (1) Dehydration Assessment/Plan: -improved -nephrology consult -cardiology consult -IVF -hold BP meds Code(s): E86.0 - DEHYDRATION (2) Atrial fibrillation Assessment/Plan: -chronic -On AC -cardiac monitoring Code(s): I48.91 - UNSPECIFIED ATRIAL FIBRILLATION Qualifiers: Atrial fibrillation type: chronic Qualified Code(s): I48.2 - Chronic atrial fibrillation (3) Diabetes mellitus Assessment/Plan: -insulin sliding scale -diabetic diet -endocrine consult Code(s): E11.9 - TYPE 2 DIABETES MELLITUS WITHOUT COMPLICATIONS Qualifiers: Diabetes mellitus type: type 2 (4) Umbilical discharge Assessment/Plan: Wound culture: Microbiology 09/11/17 15:50 Abdomen Gram Stain - Final 09/11/17 15:50 Abdomen Wound Culture - Preliminary Escherichia Coli 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 Mr S Aureus Diphtheroid/Corynebacterium Group D Strep Or Entero Coccus 09/09/17 13:47 Blood - Peripheral Venous Blood Culture - Final NO GROWTH AFTER 5 DAYS INCUBATION 09/09/17 13:38 Blood - Peripheral Venous Blood Culture - Final NO GROWTH AFTER 5 DAYS INCUBATION 09/09/17 16:31 Urine - Urine Clean Catch Urine Culture - Final Escherichia Coli 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
[2017-09-15] MEDS: ERTAPENEM SODIUM 1 GM in SODIUM CHLORIDE 100 ML IVPB SCH (11:13)
--- NOTE | 2017-09-15 11:31 | PN ---
Progress Note, Physician Chief Complaint: ID Ertepenem day 3 - Current Medication List Current Medications: Active Medications Acetaminophen (Tylenol -) 650 mg PO Q6HPO [facility] Last Admin: 09/15/17 06:02 Dose: 650 mg Albuterol/Ipratropium (Duoneb -) 1 amp NEB RQID [facility] Last Admin: 09/15/17 07:35 Dose: 1 amp Amino Acids (Prosource No Carb Liquid Pkt) 30 ml PO BID@0800,1730 [facility] Last Admin: 09/15/17 09:17 Dose: 30 ml Apixaban (Eliquis -) 5 mg PO BID [facility] Last Admin: 09/15/17 09:24 Dose: 5 mg Atorvastatin Calcium (Lipitor -) 40 mg PO HS [facility] Last Admin: 09/14/17 22:11 Dose: 40 mg Budesonide/Formoterol Fumarate (Symbicort 160/4.5mcg -) 1 puff IH BID [facility] Last Admin: 09/15/17 09:25 Dose: 1 puff Clotrimazole (Lotrimin 1% Cream -) 1 applic TP DAILY [facility] Last Admin: 09/15/17 09:25 Dose: Not Given Dexamethasone Sodium Phosphate (Decadron Injection -) 4 mg IVPUSH BID [facility] Last Admin: 09/15/17 10:52 Dose: 4 mg Dextrose (D50w (Vial) -) 25 gm IVPUSH PRN PRN PRN Reason: hypoglycemia Digoxin (Lanoxin -) 0.25 mg PO DAILY [facility] Last Admin: 09/15/17 09:18 Dose: 0.25 mg Ertapenem 1 gm/ Sodium (Chloride) 100 mls @ 200 mls/hr IVPB DAILY [facility] Last Admin: 09/15/17 11:13 Dose: 200 mls/hr Sodium Chloride (Normal Saline -) 1,000 mls @ 75 mls/hr IV ASDIR [facility] Last Admin: 09/14/17 12:59 Dose: 75 mls/hr Insulin Aspart (Novolog Vial Sliding Scale -) 1 vial SQ ACHS [facility] PRN Reason: Protocol Last Admin: 09/15/17 06:02 Dose: 4 unit Polyethylene Glycol (Miralax (For Daily Use) -) 17 gm PO DAILY [facility] Last Admin: 09/15/17 10:53 Dose: Not Given Potassium Phos/Sodium Phos (Phos-Nak Packet -) 1 packet PO TID [facility] Stop: 09/15/17 22:01 Last Admin: 09/15/17 06:01 Dose: 1 packet Tamsulosin HCl (Flomax -) 0.4 mg PO DAILY@0900 [facility] Last Admin: 09/15/17 09:17 Dose: 0.4 mg - Objective Vital Signs: Vital Signs Temperature 97.6 F 09/15/17 09:43 Pulse Rate 94 H 09/15/17 09:43 Respiratory Rate 18 09/15/17 09:43 Blood Pressure 101/54 09/15/17 09:43 O2 Sat by Pulse Oximetry (%) 98 09/15/17 00:00 Lethargic Labs: CBC, BMP 09/13/17 05:15 09/14/17 06:30 INR, PTT INR 1.34 (0.82-1.09) H 09/13/17 05:15 Assessment/Plan Microbiology 09/09/17 16:31 Urine - Urine Clean Catch Urine Culture - Final Escherichia Coli 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
[2017-09-15] MEDS: SODIUM CHLORIDE 1,000 ML IV SCH ×2 (11:50→17:00)
--- NOTE | 2017-09-15 12:14 | PN ---
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
[2017-09-15] MEDS ORDERED: ACETAMINOPHEN 325 MG TABLET (FP) PO PRN (13:14)
--- NOTE | 2017-09-15 13:23 | PN ---
Progress Note (short form) - Note Progress Note: No new events On diet + Bowel function Vital Signs Period Temp Pulse Resp BP Sys/Park Pulse Ox Last 24 Hr 97.5 F-98.7 F 94-105 18-20 101-126/54-77 98-99 Abd soft, persistent umbilical drainage CBC, BMP 09/13/17 05:[address] A/P Problem List - Problems (1) Umbilical discharge Code(s): R19.8 - OTH SYMPTOMS AND SIGNS INVOLVING THE DGSTV SYS AND ABDOMEN
[2017-09-15 14:17] LABS: ALBUMIN 1.7 g/dl (3.4-5.0); ALK PHOS 156 U/L (45-117); ANION GAP 12 (8-16); BILIRUBIN,TOTAL 0.6 mg/dL (0.2-1.0); BLOOD UREA NITROGEN 16 mg/dL (7-18); CALCIUM 7.9 mg/dL (8.5-10.1); CHLORIDE 108 mmol/L (98-107); CO2 22 mmol/L (21-32); CREATININE 0.6 mg/dL (0.7-1.3); GLUCOSE,RANDOM 139 mg/dL (74-106); PHOSPHOROUS 1.9 mg/dL (2.5-4.9); POTASSIUM 4.9 mmol/L (3.5-5.1); SGOT/AST 44 U/L (15-37); SGPT/ALT 60 U/L (12-78); SODIUM 142 mmol/L (136-145)
--- NOTE | 2017-09-15 14:42 | PN ---
Progress Note, Physician History of Present Illness: Pt seen and examined at bedside. He is awake and alert. He denies shortness of breath. - Current Medication List Current Medications: Active Medications Acetaminophen (Tylenol -) 650 mg PO Q6HPO PRN PRN Reason: PAIN OR FEVER Albuterol/Ipratropium (Duoneb -) 1 amp NEB RQID [facility] Last Admin: 09/15/17 07:35 Dose: 1 amp Amino Acids (Prosource No Carb Liquid Pkt) 30 ml PO BID@0800,1730 [facility] Last Admin: 09/15/17 09:17 Dose: 30 ml Apixaban (Eliquis -) 5 mg PO BID [facility] Last Admin: 09/15/17 09:24 Dose: 5 mg Atorvastatin Calcium (Lipitor -) 40 mg PO HS [facility] Last Admin: 09/14/17 22:11 Dose: 40 mg Budesonide/Formoterol Fumarate (Symbicort 160/4.5mcg -) 1 puff IH BID [facility] Last Admin: 09/15/17 09:25 Dose: 1 puff Clotrimazole (Lotrimin 1% Cream -) 1 applic TP DAILY [facility] Last Admin: 09/15/17 09:25 Dose: Not Given Dexamethasone Sodium Phosphate (Decadron Injection -) 4 mg IVPUSH BID [facility] Last Admin: 09/15/17 10:52 Dose: 4 mg Dextrose (D50w (Vial) -) 25 gm IVPUSH PRN PRN PRN Reason: hypoglycemia Digoxin (Lanoxin -) 0.25 mg PO DAILY [facility] Last Admin: 09/15/17 09:18 Dose: 0.25 mg Ertapenem 1 gm/ Sodium (Chloride) 100 mls @ 200 mls/hr IVPB DAILY [facility] Last Admin: 09/15/17 11:13 Dose: 200 mls/hr Sodium Chloride (Normal Saline -) 1,000 mls @ 75 mls/hr IV ASDIR [facility] Last Admin: 09/15/17 11:50 Dose: Not Given Insulin Aspart (Novolog Vial Sliding Scale -) 1 vial SQ ACHS [facility]VIND PRN Reason: Protocol Last Admin: 09/15/17 12:20 Dose: 2 unit Morphine Sulfate (Morphine Injection -) 2 mg IVPUSH Q4H PRN PRN Reason: PAIN LEVEL 7 - 10 Oxycodone HCl (Roxicodone -) 5 mg PO Q6H PRN PRN Reason: PAIN LEVEL 4 - 6 Polyethylene Glycol (Miralax (For Daily Use) -) 17 gm PO DAILY [facility] Last Admin: 09/15/17 12:18 Dose: Not Given Potassium Phos/Sodium Phos (Phos-Nak Packet -) 1 packet PO TID [facility] Stop: 09/15/17 22:01 Last Admin: 09/15/17 06:01 Dose: 1 packet Tamsulosin HCl (Flomax -) 0.4 mg PO DAILY@0900 [facility] Last Admin: 09/15/17 09:17 Dose: 0.4 mg - Objective Vital Signs: Vital Signs Temperature 97.6 F 09/15/17 09:43 Pulse Rate 94 H 09/15/17 09:43 Respiratory Rate 18 09/15/17 09:43 Blood Pressure 101/54 09/15/17 09:43 O2 Sat by Pulse Oximetry (%) 98 09/15/17 00:00 Constitutional: Yes: Calm Eyes: Yes: Conjunctiva Clear HENT: Yes: Atraumatic Cardiovascular: Yes: S1, S2 Respiratory: Yes: On Nasal O2 Gastrointestinal: Yes: Soft, Abdomen, Obese Genitourinary: Yes: Villareal Present Musculoskeletal: Yes: WNL Edema: No Neurological: Yes: Oriented Psychiatric: Yes: Oriented Labs: CBC, BMP 09/13/17 05:15 09/15/17 13:07 INR, PTT INR 1.34 (0.82-1.09) H 09/13/17 05:15 Problem List - Problems (1) CHF (congestive heart failure) Code(s): I50.9 - HEART FAILURE, UNSPECIFIED (2) COPD (chronic obstructive pulmonary disease) Code(s): J44.9 - CHRONIC OBSTRUCTIVE PULMONARY DISEASE, UNSPECIFIED (3) Hypotension Code(s): I95.9 - HYPOTENSION, UNSPECIFIED (4) Sepsis Code(s): A41.9 - SEPSIS, UNSPECIFIED ORGANISM Assessment/Plan Current Medications Generic Name Dose Route Start Last Admin Trade Name Freq PRN Reason Stop Dose Admin Acetaminophen 650 mg 09/15/17 13:14 Tylenol - PO Q6HPO PRN PAIN OR FEVER Albuterol/Ipratropium 1 amp 09/14/17 12:00 09/15/17 07:35 Duoneb - NEB 1 amp RQID [facility] Administration Amino Acids 30 ml 03/07/18 17:30 09/15/17 09:17 Prosource No Carb Liquid Pkt PO 30 ml BID@0800,1730 [facility] Administration Apixaban 5 mg 09/14/17 22:00 09/15/17 09:24 Eliquis - PO 5 mg BID [facility] Administration Atorvastatin Calcium 40 mg 09/14/17 22:00 09/14/17 22:11 Lipitor - PO 40 mg HS [facility] Administration Budesonide/Formoterol Fumarate 1 puff 09/14/17 14:00 09/15/17 09:25 Symbicort 160/4.5mcg - IH 1 puff BID [facility] Administration Clotrimazole 1 applic 09/15/17 10:00 09/15/17 09:25 Lotrimin 1% Cream - TP Not Given DAILY [facility] Dexamethasone Sodium Phosphate 4 mg 09/14/17 09:00 09/15/17 10:52 Decadron Injection - IVPUSH 4 mg BID [facility] Administration Dextrose 25 gm 09/14/17 11:36 D50w (Vial) - IVPUSH PRN PRN hypoglycemia Digoxin 0.25 mg 09/15/17 10:00 09/15/17 09:18 Lanoxin - PO 0.25 mg DAILY [facility] Administration Ertapenem 1 gm/ Sodium 100 mls @ 200 mls/hr 09/12/17 12:45 09/15/17 11:13 Chloride IVPB 200 mls/hr DAILY [facility] Administration Sodium Chloride 1,000 mls @ 75 mls/hr 09/14/17 11:36 09/15/17 11:50 Normal Saline - IV Not Given ASDIR [facility] Insulin Aspart 1 vial 09/14/17 16:30 09/15/17 12:20 Novolog Vial Sliding Scale - SQ 2 unit ACHS ARVIND Administration Protocol Morphine Sulfate 2 mg 09/15/17 13:13 Morphine Injection - IVPUSH Q4H PRN PAIN LEVEL 7 - 10 Oxycodone HCl 5 mg 09/15/17 13:13 Roxicodone - PO Q6H PRN PAIN LEVEL 4 - 6 Polyethylene Glycol 17 gm 09/13/17 10:45 09/15/17 12:18 Miralax (For Daily Use) - PO Not Given DAILY [facility] Potassium Phos/Sodium Phos 1 packet 09/14/17 14:00 09/15/17 06:01 Phos-Nak Packet - PO 09/15/17 22:01 1 packet TID [facility] Administration Tamsulosin HCl 0.4 mg 09/13/17 09:00 09/15/17 09:17 Flomax - PO 0.4 mg DAILY@0900 [facility] Administration Impression 1. SHAKIR 2. CHF 3. obstructive sleep apnea 4. obesity 5. DM 6. HTN 7. hyperlipidemia 8. resp failure requiring bipap 9. sepsis 10. UTI Plan - cont phos supplements - villareal placed for retention - urology eval - taper steroids as tolerated - check cxr in am - abx per ID Dr Aguilar
[2017-09-15] MEDS: ATORVASTATIN CA 40 MG TABLET (FP) PO SCH (21:33)
[2017-09-16] MEDS: MORPHINE SULFATE 10 MG/1 ML *VIAL IVPUSH PRN ×2 (01:36→11:09)
[2017-09-16] MEDS: SODIUM CHLORIDE 1,000 ML IV SCH ×4 (06:00→21:59)
[2017-09-16] MEDS: INSULIN SLIDING SCALE (NOVOLOG) 1 VIAL SQ SCH ×4 (06:17→21:46)
[2017-09-16] MEDS ORDERED: INSULIN (NOVOLOG) ASPART 100 UNITS/ML 10ML VIAL ONE ×2 (06:53→12:22)
[2017-09-16] MEDS: ALBUTEROL SO4 2.5/IPRATROPIUM 0.5 INH SOL 3 ML VIAL.NEB. NEB SCH ×4 (07:40→20:50)
--- NOTE | 2017-09-16 08:37 | CON.GU ---
Consult Consult Specialty:: urology Referred by:: Deneen Reason for Consultation:: uti/urinary retention - History of Present Illness Chief Complaint: uti/urinary retention History of Present Illness: Patient is a 72 year old male [place] resident with multiple medical problems. The patient has a history of urinary retention in the past. He is currently on flomax and is bed-bound. The patient denies previous urologic procedures. The patient describes a slow urinary flow with urinary frequency. He is currently with a villareal catheter. - History Source History Provided By: Patient Limitations to Obtaining History: No Limitations - Past Medical History MEAT HOSTESS: No: Alzheimer's, CVA, Dementia, Migraine, Multiple Sclerosis, Peripheral Neuropathy, Parkinson's, Seizure, Syncope, TIA, Vertigo, Other Cardio/Vascular: Yes: AFIB, CHF, HTN, Hyperlipdemia, Pulmonary Hypertension Pulmonary: Yes: COPD, O2 Dependent, Pneumonia, Sleep Apnea. No: Cancer Gastrointestinal: Yes: GERD Hepatobiliary: No: Cirrhosis, Cholelithiasis, Cholecystitis, Choledocholithiasis , Hepatitis A, Hepatitis B, Hepatitis C, Other Renal/: Yes: Renal Inusuff Infectious Disease: No: AIDS, C-Diff, Herpes Zoster, HIV, MRSA, STD's, Tuberculosis, VREF, Other Psych: No: Addictions, Anxiety, Bipolar, Depression, Panic, Psychosis, Schizophrenia, Other Musculoskeletal: No: Bursitis, Chronic low back pain, Hemiparesis, Hemiplegia, Osteoarthritis, Paraplegia, Other Rheumatology: No: Fibromyalgia, Gout, Lupus, Rheumatoid Arthritis, Sarcoidosis, Vasculitis, Other ENT: No: Allergic Rhinitis, Sinusitis, Other Endocrine: Yes: Other (MORBIDLY OBESE) Dermatology: No: Basal Cell, Cellulitis, Eczema, Melanoma, Psoriasis, Squamous Cell, Other - Past Surgical History Past Surgical History: Yes: Tonsillectomy - Alcohol/Substance Use Hx Alcohol Use: No - Smoking History Smoking history: Former smoker Have you smoked in the past 12 months: No Aproximately how many cigarettes per day: 0 If you are a former smoker, when did you quit?: 6 years ago - Social History Usual Living Arrangement: Skilled Nursing ADL: Independent Occupation: retired History of Recent Travel: No Home Medications - Allergies Allergies/Adverse Reactions: Allergies Allergy/AdvReac Type Severity Reaction Status Date / Time No Known Allergies Allergy Verified 07/30/17 11:13 - Home Medications Home Medications: Ambulatory Orders Acetaminophen 650 mg PO Q6H 09/09/17 Albuterol 2.5/Ipratropium 0.5 [Duoneb -] 1 neb IH QID 09/09/17 Apixaban [Eliquis -] 5 mg PO DAILY 09/09/17 Atorvastatin Ca [Lipitor] 40 mg PO HS 09/09/17 Clotrimazole 15 gm TP DAILY 09/09/17 Fluticasone/Vilanterol [Breo Ellipta 200-25 Mcg INH] 1 each IH DAILY 09/09/17 Glimepiride [Amaryl] 2 mg PO AM 09/09/17 Insulin (Levemir) [Levemir Vial] 30 units SQ BID 09/09/17 Lanolin Alcohol/Mo/W.pet/[place] [Eucerin Creme] 113 gm TP DAILY 09/09/17 Lidocaine 2% Viscous Oral [Xylocaine 2% Viscous Oral -] 15 ml PO TID 09/09/17 Povidone-Iodine [Betadine] 1 each TP DAILY 09/09/17 Tamsulosin HCl [Flomax] 0.4 mg PO DAILY 09/09/17 Torsemide 100 mg PO DAILY 09/09/17 Verapamil HCl [Calan Sr] 240 mg PO DAILY 09/09/17 predniSONE [Deltasone -] 5 mg PO DAILY 09/09/17 Physical Exam- Vital Signs: Vital Signs Temperature 97.7 F 09/16/17 06:00 Pulse Rate 94 H 09/16/17 06:00 Respiratory Rate 20 09/16/17 06:00 Blood Pressure 101/56 09/16/17 06:00 O2 Sat by Pulse Oximetry (%) 96 09/15/17 21:00 Constitutional: Yes: Calm, Mild Distress, Obese Eyes: Yes: WNL, Conjunctiva Clear, EOM Intact HENT: Yes: WNL, Atraumatic, Normocephalic Neck: Yes: WNL, Supple, Trachea Midline Gastrointestinal: Yes: WNL, Normal Bowel Sounds, Soft Renal/: Yes: WNL Kidneys: Yes: WNL (villareal catheter draining clear urine) Pelvis: Yes: Bladder Non Palpable Testicles: Yes: WNL Scrotum: Yes: WNL Penis: Yes: WNL Prostate Exam: Yes: Asymmetrical, Swollen Labs: CBC, BMP 09/13/17 05:15 09/15/17 13:07 Assessment/Plan impression uti urinary retention bph plan continue with ertapenem continue flomax trial of voiding after uti has been treated long-term management depends on success of trial of voiding
[2017-09-16] MEDS: AMINO ACIDS/PROTEIN HYDROLYS 30 ML LIQUID.PKT PO SCH ×2 (09:10→17:09)
[2017-09-16] MEDS ORDERED: PT OWN MED DRAWER 7, Y5N ONE ×2 (11:06→11:21)
[2017-09-16] MEDS: DIGOXIN 0.125 MG TABLET (FP) PO SCH (11:13)
[2017-09-16] MEDS: ERTAPENEM SODIUM 1 GM in SODIUM CHLORIDE 100 ML IVPB SCH (11:22)
[2017-09-16] MEDS: APIXABAN 5 MG TABLET PO SCH ×2 (11:23→21:59)
[2017-09-16] MEDS: DEXAMETHASONE SOD PHOSPHATE 4 MG/1 ML VIAL IVPUSH SCH ×2 (11:29→21:44)
[2017-09-16] MEDS: TAMSULOSIN HCL 0.4 MG CAP.ER.24H (FP) PO SCH (11:29)
[2017-09-16] MEDS: POLYETHYLENE GLYCOL 3350 119 GM BTL PO SCH ×2 (11:30→19:16)
[2017-09-16] MEDS: BUDESONIDE/FORMETEROL FUMARATE 160/4.5 mcg INHALER IH SCH ×2 (11:30→21:47)
[2017-09-16] MEDS: oxyCODONE HCL 5 MG TABLET PO PRN (15:16)
--- NOTE | 2017-09-16 15:27 | PN ---
Progress Note, Physician History of Present Illness: pulmonary alert,comfortable,nad,on nasal o2,using bipap at night - Current Medication List Current Medications: Active Medications Acetaminophen (Tylenol -) 650 mg PO Q6HPO PRN PRN Reason: PAIN OR FEVER Albuterol/Ipratropium (Duoneb -) 1 amp NEB RQID [facility] Last Admin: 09/16/17 11:11 Dose: 1 amp Amino Acids (Prosource No Carb Liquid Pkt) 30 ml PO BID@0800,1730 [facility] Last Admin: 09/16/17 09:10 Dose: Not Given Apixaban (Eliquis -) 5 mg PO BID [facility] Last Admin: 09/16/17 11:23 Dose: 5 mg Atorvastatin Calcium (Lipitor -) 40 mg PO HS [facility] Last Admin: 09/15/17 21:33 Dose: 40 mg Budesonide/Formoterol Fumarate (Symbicort 160/4.5mcg -) 1 puff IH BID [facility] Last Admin: 09/16/17 11:30 Dose: 1 puff Clotrimazole (Lotrimin 1% Cream -) 1 applic TP DAILY [facility] Last Admin: 09/15/17 09:25 Dose: Not Given Dexamethasone Sodium Phosphate (Decadron Injection -) 4 mg IVPUSH BID [facility] Last Admin: 09/16/17 11:29 Dose: 4 mg Dextrose (D50w (Vial) -) 25 gm IVPUSH PRN PRN PRN Reason: hypoglycemia Digoxin (Lanoxin -) 0.25 mg PO DAILY [facility] Last Admin: 09/16/17 11:13 Dose: 0.25 mg Ertapenem 1 gm/ Sodium (Chloride) 100 mls @ 200 mls/hr IVPB DAILY [facility] Last Admin: 09/16/17 11:22 Dose: 200 mls/hr Sodium Chloride (Normal Saline -) 1,000 mls @ 75 mls/hr IV ASDIR [facility] Last Admin: 09/16/17 15:17 Dose: Not Given Insulin Aspart (Novolog Vial Sliding Scale -) 1 vial SQ ACHS [facility] PRN Reason: Protocol Last Admin: 09/16/17 12:43 Dose: 2 unit Morphine Sulfate (Morphine Injection -) 2 mg IVPUSH Q4H PRN PRN Reason: PAIN LEVEL 7 - 10 Last Admin: 09/16/17 11:09 Dose: 2 mg Oxycodone HCl (Roxicodone -) 5 mg PO Q6H PRN PRN Reason: PAIN LEVEL 4 - 6 Last Admin: 09/16/17 15:16 Dose: 5 mg Polyethylene Glycol (Miralax (For Daily Use) -) 17 gm PO DAILY [facility] Last Admin: 09/16/17 11:30 Dose: 17 grams Tamsulosin HCl (Flomax -) 0.4 mg PO DAILY@0900 [facility] Last Admin: 09/16/17 11:29 Dose: 0.4 mg - Objective Vital Signs: Vital Signs Temperature 97.4 F L 09/16/17 15:02 Pulse Rate 104 H 09/16/17 15:02 Respiratory Rate 18 09/16/17 15:02 Blood Pressure 105/61 09/16/17 15:02 O2 Sat by Pulse Oximetry (%) 97 09/16/17 11:10 Constitutional: Yes: Calm, Obese Eyes: Yes: WNL HENT: Yes: WNL Neck: Yes: WNL Cardiovascular: Yes: Pulse Irregular, S1, S2 Respiratory: Yes: Diminished Gastrointestinal: Yes: Normal Bowel Sounds, Soft Extremities: Yes: WNL Edema: Yes Labs: CBC, BMP Problem List - Problems (1) CHF (congestive heart failure) Code(s): I50.9 - HEART FAILURE, UNSPECIFIED (2) COPD (chronic obstructive pulmonary disease) Code(s): J44.9 - CHRONIC OBSTRUCTIVE PULMONARY DISEASE, UNSPECIFIED (3) Hypotension Code(s): I95.9 - HYPOTENSION, UNSPECIFIED (4) Sepsis Code(s): A41.9 - SEPSIS, UNSPECIFIED ORGANISM (5) Acute chronic obstructive pulmonary disease with respiratory distress Code(s): J44.9 - CHRONIC OBSTRUCTIVE PULMONARY DISEASE, UNSPECIFIED; R06.03 - ACUTE RESPIRATORY DISTRESS (6) Acute on chronic respiratory failure with hypoxia and hypercapnia Code(s): J96.21 - ACUTE AND CHRONIC RESPIRATORY FAILURE WITH HYPOXIA; J96.22 - ACUTE AND CHRONIC RESPIRATORY FAILURE WITH HYPERCAPNIA (7) Atrial fibrillation Code(s): I48.91 - UNSPECIFIED ATRIAL FIBRILLATION Qualifiers: Atrial fibrillation type: chronic Qualified Code(s): I48.2 - Chronic atrial fibrillation (8) Edema Code(s): R60.9 - EDEMA, UNSPECIFIED (9) Sleep apnea Code(s): G47.30 - SLEEP APNEA, UNSPECIFIED Assessment/Plan UTI Sepsis Lactic Acidosis resolved LV Diastolic Dysfunction COPD Morbid Obesity Obstructive Sleep Apnea Paroxysmal Atrial Fibrillation HTN Hyperlipidemia (?) Hypoadrenalism - ABX coverage as per ID - Taper stress dose steroids - inhaled bronchodilators - O2 to keep SpO2 >90% - NIPPV to assist in work of breathing - rate control - continue anticoagulation DR STACK
--- NOTE | 2017-09-16 15:50 | PN ---
Progress Note, Physician History of Present Illness: Pt seen and examined at bedside. He is awake and alert. He denies shortness of breath. - Current Medication List Current Medications: Active Medications Acetaminophen (Tylenol -) 650 mg PO Q6HPO PRN PRN Reason: PAIN OR FEVER Albuterol/Ipratropium (Duoneb -) 1 amp NEB RQID [facility] Last Admin: 09/16/17 11:11 Dose: 1 amp Amino Acids (Prosource No Carb Liquid Pkt) 30 ml PO BID@0800,1730 [facility] Last Admin: 09/16/17 09:10 Dose: Not Given Apixaban (Eliquis -) 5 mg PO BID [facility] Last Admin: 09/16/17 11:23 Dose: 5 mg Atorvastatin Calcium (Lipitor -) 40 mg PO HS [facility] Last Admin: 09/15/17 21:33 Dose: 40 mg Budesonide/Formoterol Fumarate (Symbicort 160/4.5mcg -) 1 puff IH BID [facility] Last Admin: 09/16/17 11:30 Dose: 1 puff Clotrimazole (Lotrimin 1% Cream -) 1 applic TP DAILY [facility] Last Admin: 09/15/17 09:25 Dose: Not Given Dexamethasone Sodium Phosphate (Decadron Injection -) 4 mg IVPUSH BID [facility] Last Admin: 09/16/17 11:29 Dose: 4 mg Dextrose (D50w (Vial) -) 25 gm IVPUSH PRN PRN PRN Reason: hypoglycemia Digoxin (Lanoxin -) 0.25 mg PO DAILY [facility] Last Admin: 09/16/17 11:13 Dose: 0.25 mg Ertapenem 1 gm/ Sodium (Chloride) 100 mls @ 200 mls/hr IVPB DAILY [facility] Last Admin: 09/16/17 11:22 Dose: 200 mls/hr Sodium Chloride (Normal Saline -) 1,000 mls @ 75 mls/hr IV ASDIR [facility] Last Admin: 09/16/17 15:17 Dose: Not Given Insulin Aspart (Novolog Vial Sliding Scale -) 1 vial SQ ACHS [facility] PRN Reason: Protocol Last Admin: 09/16/17 12:43 Dose: 2 unit Morphine Sulfate (Morphine Injection -) 2 mg IVPUSH Q4H PRN PRN Reason: PAIN LEVEL 7 - 10 Last Admin: 03/09/18 11:09 Dose: 2 mg Oxycodone HCl (Roxicodone -) 5 mg PO Q6H PRN PRN Reason: PAIN LEVEL 4 - 6 Last Admin: 09/16/17 15:16 Dose: 5 mg Polyethylene Glycol (Miralax (For Daily Use) -) 17 gm PO DAILY [facility] Last Admin: 09/16/17 11:30 Dose: 17 grams Tamsulosin HCl (Flomax -) 0.4 mg PO DAILY@0900 [facility] Last Admin: 09/16/17 11:29 Dose: 0.4 mg - Objective Vital Signs: Vital Signs Temperature 97.4 F L 09/16/17 15:02 Pulse Rate 104 H 09/16/17 15:02 Respiratory Rate 18 09/16/17 15:02 Blood Pressure 105/61 09/16/17 15:02 O2 Sat by Pulse Oximetry (%) 97 09/16/17 11:10 Constitutional: Yes: Calm Eyes: Yes: Conjunctiva Clear HENT: Yes: Atraumatic Cardiovascular: Yes: S1, S2 Respiratory: Yes: On Nasal O2 Gastrointestinal: Yes: Soft, Abdomen, Obese Genitourinary: Yes: [place] Present Musculoskeletal: Yes: WNL Edema: No Neurological: Yes: Oriented Psychiatric: Yes: Oriented Labs: CBC, BMP 09/13/17 05:15 09/15/17 13:07 INR, PTT INR 1.34 (0.82-1.09) H 09/13/17 05:15 Problem List - Problems (1) CHF (congestive heart failure) Code(s): I50.9 - HEART FAILURE, UNSPECIFIED (2) COPD (chronic obstructive pulmonary disease) Code(s): J44.9 - CHRONIC OBSTRUCTIVE PULMONARY DISEASE, UNSPECIFIED (3) Hypotension Code(s): I95.9 - HYPOTENSION, UNSPECIFIED (4) Sepsis Code(s): A41.9 - SEPSIS, UNSPECIFIED ORGANISM Assessment/Plan Current Medications Generic Name Dose Route Start Last Admin Trade Name Freq PRN Reason Stop Dose Admin Acetaminophen 650 mg 09/15/17 13:14 Tylenol - PO Q6HPO PRN PAIN OR FEVER Albuterol/Ipratropium 1 amp 09/14/17 12:00 09/16/17 11:11 Duoneb - NEB 1 amp RQID [facility] Administration Amino Acids 30 ml 09/14/17 17:30 09/16/17 09:10 Prosource No Carb Liquid Pkt PO Not Given BID@0800,1730 [facility] Apixaban 5 mg 09/14/17 22:00 09/16/17 11:23 Eliquis - PO 5 mg BID [facility] Administration Atorvastatin Calcium 40 mg 09/14/17 22:00 09/15/17 21:33 Lipitor - PO 40 mg HS [facility] Administration Budesonide/Formoterol Fumarate 1 puff 09/14/17 14:00 09/16/17 11:30 Symbicort 160/4.5mcg - IH 1 puff BID [facility] Administration Clotrimazole 1 applic 09/15/17 10:00 09/15/17 09:25 Lotrimin 1% Cream - TP Not Given DAILY [facility] Dexamethasone Sodium Phosphate 4 mg 09/14/17 09:00 09/16/17 11:29 Decadron Injection - IVPUSH 4 mg BID [facility] Administration Dextrose 25 gm 09/14/17 11:36 D50w (Vial) - IVPUSH PRN PRN hypoglycemia Digoxin 0.25 mg 09/15/17 10:00 09/16/17 11:13 Lanoxin - PO 0.25 mg DAILY [facility] Administration Ertapenem 1 gm/ Sodium 100 mls @ 200 mls/hr 09/12/17 12:45 09/16/17 11:22 Chloride IVPB 200 mls/hr DAILY [facility] Administration Sodium Chloride 1,000 mls @ 75 mls/hr 09/14/17 11:36 09/16/17 15:17 Normal Saline - IV Not Given ASDIR [facility] Insulin Aspart 1 vial 09/14/17 16:30 09/16/17 12:43 Novolog Vial Sliding Scale - SQ 2 unit ACHS [facility] Administration Protocol Morphine Sulfate 2 mg 09/15/17 13:13 09/16/17 11:09 Morphine Injection - IVPUSH 2 mg Q4H PRN Administration PAIN LEVEL 7 - 10 Oxycodone HCl 5 mg 09/15/17 13:13 09/16/17 15:16 Roxicodone - PO 5 mg Q6H PRN Administration PAIN LEVEL 4 - 6 Polyethylene Glycol 17 gm 09/13/17 10:45 09/16/17 11:30 Miralax (For Daily Use) - PO 17 grams DAILY [facility] Administration Tamsulosin HCl 0.4 mg 09/13/17 09:00 09/16/17 11:29 Flomax - PO 0.4 mg DAILY@0900 [facility] Administration Impression 1. SHAKIR 2. CHF 3. obstructive sleep apnea 4. obesity 5. DM 6. HTN 7. hyperlipidemia 8. resp failure requiring bipap 9. sepsis 10. UTI Plan - urology input appreciated - voiding trial once abx complete - check phos level - cont fluids - taper steroids as tolerated - check cxr in am - abx per ID Dr Aguilar
--- NOTE | 2017-09-16 16:14 | PN ---
Progress Note (short form) - Note Progress Note: Chief Complaint: hypotension History of Present Illness: feels better, weakness improved. had villareal placed. remains on IVF. slight worsening of LE edema. no cp, no sob/orthopnea (laying flat), no palpitations. Current Medications Acetaminophen (Tylenol -) 650 mg PO Q6HPO PRN PRN Reason: PAIN OR FEVER Albuterol/Ipratropium (Duoneb -) 1 amp NEB RQID [facility] Last Admin: 09/16/17 11:11 Dose: 1 amp Amino Acids (Prosource No Carb Liquid Pkt) 30 ml PO BID@0800,1730 [facility] Last Admin: 09/16/17 09:10 Dose: Not Given Apixaban (Eliquis -) 5 mg PO BID [facility] Last Admin: 09/16/17 11:23 Dose: 5 mg Atorvastatin Calcium (Lipitor -) 40 mg PO HS [facility] Last Admin: 09/15/17 21:33 Dose: 40 mg Budesonide/Formoterol Fumarate (Symbicort 160/4.5mcg -) 1 puff IH BID [facility] Last Admin: 09/16/17 11:30 Dose: 1 puff Clotrimazole (Lotrimin 1% Cream -) 1 applic TP DAILY [facility] Last Admin: 09/15/17 09:25 Dose: Not Given Dexamethasone Sodium Phosphate (Decadron Injection -) 4 mg IVPUSH BID [facility] Last Admin: 09/16/17 11:29 Dose: 4 mg Dextrose (D50w (Vial) -) 25 gm IVPUSH PRN PRN PRN Reason: hypoglycemia Digoxin (Lanoxin -) 0.25 mg PO DAILY [facility] Last Admin: 09/16/17 11:13 Dose: 0.25 mg Ertapenem 1 gm/ Sodium (Chloride) 100 mls @ 200 mls/hr IVPB DAILY [facility] Last Admin: 09/16/17 11:22 Dose: 200 mls/hr Sodium Chloride (Normal Saline -) 1,000 mls @ 75 mls/hr IV ASDIR [facility] Last Admin: 09/16/17 15:17 Dose: Not Given Insulin Aspart (Novolog Vial Sliding Scale -) 1 vial SQ ACHS [facility] PRN Reason: Protocol Last Admin: 09/16/17 12:43 Dose: 2 unit Morphine Sulfate (Morphine Injection -) 2 mg IVPUSH Q4H PRN PRN Reason: PAIN LEVEL 7 - 10 Last Admin: 09/16/17 11:09 Dose: 2 mg Oxycodone HCl (Roxicodone -) 5 mg PO Q6H PRN PRN Reason: PAIN LEVEL 4 - 6 Last Admin: 09/16/17 15:16 Dose: 5 mg Polyethylene Glycol (Miralax (For Daily Use) -) 17 gm PO DAILY [facility] Last Admin: 09/16/17 11:30 Dose: 17 grams Tamsulosin HCl (Flomax -) 0.4 mg PO DAILY@0900 [facility] Last Admin: 09/16/17 11:29 Dose: 0.4 mg - Objective Vital Signs: Vital Signs - 24 hr 09/15/17 09/15/17 09/15/17 18:46 21:00 21:19 Temperature 97.2 F L 98 F Pulse Rate 91 H 92 H Respiratory 20 20 20 Rate Blood Pressure 119/75 123/61 O2 Sat by Pulse 96 Oximetry (%) 09/16/17 09/16/17 09/16/17 02:00 06:00 10:00 Temperature 98 F 97.7 F 98 F Pulse Rate 91 H 94 H 84 Respiratory 20 20 18 Rate Blood Pressure 121/69 101/56 99/50 O2 Sat by Pulse Oximetry (%) 09/16/17 09/16/17 09/16/17 11:10 11:13 15:02 Temperature 97.4 F L Pulse Rate 84 85 104 H Respiratory 18 Rate Blood Pressure 105/61 O2 Sat by Pulse 97 Oximetry (%) Intake & Output 09/14/17 09/15/17 09/16/17 09/17/17 07:59 07:59 07:59 07:59 Intake Total 2662.5 900 Output Total 500 1400 1000 800 Balance 2162.5 -1400 -100 -800 Weight 285 lb 9.6 oz 286 lb 9.6 oz 286 lb 9.6 oz Constitutional: Yes: Well Nourished, No Distress, Calm Cardiovascular: Yes: Pulse Irregular (soft), S1, S2. No: JVD, Gallop, Murmur Respiratory: Yes: Regular, CTA Bilaterally. No: Accessory Muscle Use, Rales, Wheezes Extremities: No: Cold Edema: 1+ Neurological: Yes: Alert, Oriented Psychiatric: No: Agitated Labs: CBC, BMP 09/13/17 05:15 09/15/17 13:07 Laboratory Tests 09/15/17 13:07 Magnesium 2.0 Total Bilirubin 0.6 AST 44 H D ALT 60 Alkaline Phosphatase 156 H Albumin 1.7 L Echo 08/28: TDS. nl LV size. prob nl LVSF. RV tds. valves TDS. Echo 07/2016: Nl lv/rv. 1+ AR mibi 12/2012: small posterior ischemia vs artifact, nl lvef, no tid cxr: incr markings diffusely, no infiltrate/effusions--no change vs prior EKG 09/09: afib; nonsp ST-Ts diffusely, slightly more pronounced than prior (prior tele: afib 100s) a/p: 72 yo male with h/o AFib s/p prior DCCV 12/2015 to SR on AC, HTN, HL, dchf , PVCs with palpitations, morbid obesity, LUCY on bipap, severe COPD, here with sob. hypotension, urosepsis: -urine growing E. coli (ESBL) -hemodynamics improving. still requiring IVF. -cont abx -no ischemic ecg changes, trop neg x 2 -holding CCB, BB, diuretics for now chronic diastolic chf: - 07/28 copd admit with marked pedal edema treated with lasix--d/c wt 314. sent out on lasix 40 po bid. - 08/28 admit with prolonged volume-up during last admit 08/28 (in setting of peristent rapid AF), requiring lasix 100 iv bid for diuresis. - new dry wt on last discharge 287 lbs (+signif muscle atrophy from prolonged bedbound state). - no accurate weight here yet (cannot stand) - discharged on torsemide 100 qd, holding currently for hypotension - 09/16 has been euvolemic off torsemide and with IVFm but today with worsened le edema. discussed with renal, will lower rate of IVF. paroxysmal AF/flutter: -on eliquis for AC -new dx 2015--recurred soon after initially successful DCCV plus amio then ( amio stopped given risks of pulm toxicity) -HR persistently rapid last admit 08/28 despite home regimen verapamil 240 bid plus digoxin continued--? was exacerbating refractory diast chf. -dig increased to 0.25 qd (level WNL), metoprolol 25mg qd added-->HR improved significantly -plan was to continue same meds and, if HR remains mostly <110-120 and no signf this was causing refractory/recurrent HF, would defer AVN ablation/PPM -presently, holding verapamil and metoprolol given hypotension, HR currently remains stable -HRs rapid overnight 09/10, did not receive digoxin yesterday. -09/11: HR currently controlled. dig level 1.3--cont same dose (0.25mg qd) given necessity for for AF control to minimize future CHF exacerbations -09/12: HR remains rapid at times, mostly acceptable tachy burden. continue digoxin. BP improving with tx of urosepsis. expect will be able to resume verapamil and metoprolol in 24-48 hrs - 09/13: HR remains rapid at times, mostly acceptable tachy burden. continue digoxin (will recheck level). -09/14-09/16: HR ok. Cont dig. Resume home verapamil and toprol once bp stable. Still running low and dependent on IVF today. copd: - ? end-stage copd at this point, freq admits - per pulm deconditioning, hypoalbuminemia: -nutrition per critical care hld: -continue home statin htn: -low bp's here, workup ongoing as above -holding meds as necessary possible cad: -pt had borderline positive mibi in 2012 vs soft tissue attenuation artifact -never had angina sx's -ECG nonsp ST-T no signif change vs prior. trop neg x2. no anginal sx's -continue medical management with statin, AC without ASA
[2017-09-16] MEDS: CLOTRIMAZOLE 1% CREAM 15 GM TUBE TP SCH (17:09)
[2017-09-16 17:22] LABS: HEMATOCRIT 32.3 % (35.4-49); HEMOGLOBIN 10.2 GM/dL (11.7-16.9); MCH 29.8 pg (25.7-33.7); MCHC 31.6 g/dl (32.0-35.9); MEAN CELL VOLUME 94.5 fl (80-96); MEAN PLT VOLUME 7.7 fl (7.5-11.1); PLATELET COUNT 379 K/MM3 (134-434); RBC 3.41 M/mm3 (4.00-5.60); RDW 24.1 % (11.9-15.9); WHITE BLOOD COUNT 14.8 K/mm3 (4.0-10.0)
[2017-09-16 17:58] LABS: ALBUMIN 1.7 g/dl (3.4-5.0); ANION GAP 10 (8-16); BILIRUBIN,TOTAL 0.4 mg/dL (0.2-1.0); BLOOD UREA NITROGEN 11 mg/dL (7-18); CALCIUM 7.8 mg/dL (8.5-10.1); CHLORIDE 107 mmol/L (98-107); CO2 24 mmol/L (21-32); CREATININE 0.5 mg/dL (0.7-1.3); GLUCOSE,RANDOM 242 mg/dL (74-106); POTASSIUM 4.7 mmol/L (3.5-5.1); SGOT/AST 25 U/L (15-37); SGPT/ALT 49 U/L (12-78); SODIUM 141 mmol/L (136-145); TOT PROT 4.6 g/dl (6.4-8.2)
[2017-09-16 17:59] LABS: ALK PHOS 126 U/L (45-117)
--- NOTE | 2017-09-16 18:01 | PN ---
Progress Note (short form) - Note Progress Note: addendum diagnosis: acute on chronic respiratory failure in the setting of sepsis/uti hypotension/ hypoglycemia requiring bipap for support Problem List - Problems (1) CHF (congestive heart failure) Code(s): I50.9 - HEART FAILURE, UNSPECIFIED (2) COPD (chronic obstructive pulmonary disease) Code(s): J44.9 - CHRONIC OBSTRUCTIVE PULMONARY DISEASE, UNSPECIFIED (3) Hypotension Code(s): I95.9 - HYPOTENSION, UNSPECIFIED (4) Infection due to ESBL-producing Escherichia coli Code(s): A49.8 - OTHER BACTERIAL INFECTIONS OF UNSPECIFIED SITE; Z16.12 - EXTENDED SPECTRUM BETA LACTAMASE (ESBL) RESISTANCE (5) Sepsis Code(s): A41.9 - SEPSIS, UNSPECIFIED ORGANISM (6) UTI (urinary tract infection) Code(s): N39.0 - URINARY TRACT INFECTION, SITE NOT SPECIFIED (7) Acute chronic obstructive pulmonary disease with respiratory distress Code(s): J44.9 - CHRONIC OBSTRUCTIVE PULMONARY DISEASE, UNSPECIFIED; R06.03 - ACUTE RESPIRATORY DISTRESS (8) Type 2 diabetes mellitus with diabetic neuropathy Code(s): E11.40 - TYPE 2 DIABETES MELLITUS WITH DIABETIC NEUROPATHY, UNSP
--- NOTE | 2017-09-16 18:10 | PN ---
Progress Note (short form) - Note Progress Note: On diet +BM Vital Signs Period Temp Pulse Resp BP Sys/Park Pulse Ox Last 24 Hr 97.2 F-98 F 84-104 18-20 99-123/50-75 96-97 Abd soft, NT, + umbilical hernia- reducible CT A/P: + umbilical hernia, no bowel/colon in hernia noted, no fistula seen Continue medical management Hernia repair at a later date when optimized Problem List - Problems (1) Umbilical discharge Code(s): R19.8 - OTH SYMPTOMS AND SIGNS INVOLVING THE DGSTV SYS AND ABDOMEN
[2017-09-16 18:35] LABS: PLATELET ESTIMATE ADEQUATE
--- NOTE | 2017-09-16 18:56 | PN ---
Progress Note, Physician Chief Complaint: comfortable no complaint History of Present Illness: dm,adrenal deficiency,steroid dependent,copd,chf,ckd,sepsis,hypotension - Current Medication List Current Medications: Active Medications Acetaminophen (Tylenol -) 650 mg PO Q6HPO PRN PRN Reason: PAIN OR FEVER Albuterol/Ipratropium (Duoneb -) 1 amp NEB RQID [facility] Last Admin: 09/16/17 16:27 Dose: 1 amp Amino Acids (Prosource No Carb Liquid Pkt) 30 ml PO BID@0800,1730 [facility] Last Admin: 09/16/17 17:09 Dose: Not Given Apixaban (Eliquis -) 5 mg PO BID [facility] Last Admin: 09/16/17 11:23 Dose: 5 mg Atorvastatin Calcium (Lipitor -) 40 mg PO HS [facility] Last Admin: 09/15/17 21:33 Dose: 40 mg Budesonide/Formoterol Fumarate (Symbicort 160/4.5mcg -) 1 puff IH BID [facility] Last Admin: 09/16/17 11:30 Dose: 1 puff Clotrimazole (Lotrimin 1% Cream -) 1 applic TP DAILY [facility] Last Admin: 09/16/17 17:09 Dose: Not Given Dexamethasone Sodium Phosphate (Decadron Injection -) 4 mg IVPUSH BID [facility] Last Admin: 09/16/17 11:29 Dose: 4 mg Dextrose (D50w (Vial) -) 25 gm IVPUSH PRN PRN PRN Reason: hypoglycemia Digoxin (Lanoxin -) 0.25 mg PO DAILY [facility] Last Admin: 09/16/17 11:13 Dose: 0.25 mg Ertapenem 1 gm/ Sodium (Chloride) 100 mls @ 200 mls/hr IVPB DAILY [facility] Last Admin: 09/16/17 11:22 Dose: 200 mls/hr Sodium Chloride (Normal Saline -) 1,000 mls @ 42 mls/hr IV ASDIR [facility] Last Admin: 09/16/17 17:08 Dose: 42 mls/hr Insulin Aspart (Novolog Vial Sliding Scale -) 1 vial SQ ACHS [facility] PRN Reason: Protocol Last Admin: 09/16/17 17:28 Dose: 4 unit Morphine Sulfate (Morphine Injection -) 2 mg IVPUSH Q4H PRN PRN Reason: PAIN LEVEL 7 - 10 Last Admin: 09/16/17 11:09 Dose: 2 mg Oxycodone HCl (Roxicodone -) 5 mg PO Q6H PRN PRN Reason: PAIN LEVEL 4 - 6 Last Admin: 09/16/17 15:16 Dose: 5 mg Polyethylene Glycol (Miralax (For Daily Use) -) 17 gm PO DAILY [facility] Last Admin: 09/16/17 11:30 Dose: 17 grams Tamsulosin HCl (Flomax -) 0.4 mg PO DAILY@0900 [facility] Last Admin: 09/16/17 11:29 Dose: 0.4 mg - Objective Vital Signs: Vital Signs Temperature 98.2 F 09/16/17 18:00 Pulse Rate 101 H 09/16/17 18:00 Respiratory Rate 18 09/16/17 18:00 Blood Pressure 101/62 09/16/17 18:00 O2 Sat by Pulse Oximetry (%) 97 09/16/17 11:10 Constitutional: Yes: Well Nourished, Calm Eyes: Yes: EOM Intact HENT: Yes: Normocephalic Neck: Yes: Trachea Midline Cardiovascular: Yes: Regular Rate and Rhythm Gastrointestinal: Yes: Abdomen, Obese ...Rectal Exam: Yes: Deferred Breast(s): Yes: WNL Musculoskeletal: Yes: Joint Swelling, Muscle Pain, Muscle Weakness Extremities: Yes: WNL Edema: No Peripheral Pulses WNL: Yes Neurological: Yes: Alert, Oriented Labs: CBC, BMP 09/16/17 16:30 09/16/17 16:30 INR, PTT INR 1.34 (0.82-1.09) H 09/13/17 05:15 Problem List - Problems (1) CHF (congestive heart failure) Code(s): I50.9 - HEART FAILURE, UNSPECIFIED (2) COPD (chronic obstructive pulmonary disease) Code(s): J44.9 - CHRONIC OBSTRUCTIVE PULMONARY DISEASE, UNSPECIFIED (3) Hypotension Code(s): I95.9 - HYPOTENSION, UNSPECIFIED (4) Infection due to ESBL-producing Escherichia coli Code(s): A49.8 - OTHER BACTERIAL INFECTIONS OF UNSPECIFIED SITE; Z16.12 - EXTENDED SPECTRUM BETA LACTAMASE (ESBL) RESISTANCE (5) Umbilical discharge Code(s): R19.8 - OTH SYMPTOMS AND SIGNS INVOLVING THE DGSTV SYS AND ABDOMEN (6) Primary adrenal deficiency Code(s): E27.1 - PRIMARY ADRENOCORTICAL INSUFFICIENCY (7) Sepsis Code(s): A41.9 - SEPSIS, UNSPECIFIED ORGANISM (8) UTI (urinary tract infection) Code(s): N39.0 - URINARY TRACT INFECTION, SITE NOT SPECIFIED Assessment/Plan Current Active Problems CHF (congestive heart failure) (Acute) COPD (chronic obstructive pulmonary disease) (Acute) Dehydration (Acute) Hypotension (Acute) Infection due to ESBL-producing Escherichia coli (Acute) Primary adrenal deficiency (Acute) Sepsis (Acute) UTI (urinary tract infection) (Acute) Umbilical discharge (Acute) Abnormal Lab Results 09/16/17 09/16/17 16:30 16:30 WBC 14.8 H RBC 3.41 L Hgb 10.2 L Hct 32.3 L MCHC 31.6 L RDW 24.1 H Neutrophils % (Manual) 85.0 H Lymphocytes % (Manual) 3.0 L D Monocytes % (Manual) 2 L D Myelocytes % (Man) 3 H D Metamyelocytes 3 H D Creatinine 0.5 L Random Glucose 242 H D Calcium 7.8 L Alkaline Phosphatase 126 H Total Protein 4.6 L Albumin 1.7 L Laboratory Results - last 24 hr 09/15/17 09/16/17 09/16/17 21:15 06:15 11:48 WBC RBC Hgb Hct MCV MCH MCHC RDW Plt Count MPV Neutrophils % Neutrophils % (Manual) Band Neutrophils % Lymphocytes % Lymphocytes % (Manual) Monocytes % Monocytes % (Manual) Eosinophils % Eosinophils % (Manual) Basophils % Basophils % (Manual) Myelocytes % (Man) Metamyelocytes Platelet Estimate Sodium Potassium Chloride Carbon Dioxide Anion Gap BUN Creatinine Creat Clearance w eGFR POC Glucometer 217 208 187 Random Glucose Calcium Total Bilirubin AST ALT Alkaline Phosphatase Total Protein Albumin 09/16/17 09/16/17 09/16/17 16:30 16:30 17:22 WBC 14.8 H RBC 3.41 L Hgb 10.2 L Hct 32.3 L MCV 94.5 MCH 29.8 MCHC 31.6 L RDW 24.1 H Plt Count 379 MPV 7.7 Neutrophils % Recycling Technician Neutrophils % (Manual) 85.0 H Band Neutrophils % 2.0 Lymphocytes % Recycling Technician Lymphocytes % (Manual) 3.0 L D Monocytes % Recycling Technician Monocytes % (Manual) 2 L D Eosinophils % Recycling Technician Eosinophils % (Manual) 0.0 Basophils % Recycling Technician Basophils % (Manual) 0.0 Myelocytes % (Man) 3 H D Metamyelocytes 3 H D Platelet Estimate Adequate Sodium 141 Potassium 4.7 Chloride 107 Carbon Dioxide 24 Anion Gap 10 BUN 11 D Creatinine 0.5 L Creat Clearance w eGFR > 60 POC Glucometer 246 Random Glucose 242 H D Calcium 7.8 L Total Bilirubin 0.4 D AST 25 D ALT 49 Alkaline Phosphatase 126 H Total Protein 4.6 L Albumin 1.7 L plan: continue with adrenal support taper steroids to prednisone 60mg daily 3 days,taperevery 3rd day by 10mg till 10mg daily reached
[2017-09-16] MEDS: ATORVASTATIN CA 40 MG TABLET (FP) PO SCH (21:45)
[2017-09-17] MEDS: oxyCODONE HCL 5 MG TABLET PO PRN (00:57)
[2017-09-17] MEDS: INSULIN SLIDING SCALE (NOVOLOG) 1 VIAL SQ SCH ×4 (06:15→22:03)
[2017-09-17] MEDS ORDERED: INSULIN (NOVOLOG) ASPART 100 UNITS/ML 10ML VIAL ONE ×2 (07:17→21:34)
[2017-09-17 07:44] LABS: CHLORIDE 108 mmol/L (98-107); POTASSIUM 4.7 mmol/L (3.5-5.1); SODIUM 142 mmol/L (136-145)
[2017-09-17 07:49] LABS: ALBUMIN 1.8 g/dl (3.4-5.0); ALK PHOS 123 U/L (45-117); ANION GAP 8 (8-16); BILIRUBIN,TOTAL 0.6 mg/dL (0.2-1.0); BLOOD UREA NITROGEN 9 mg/dL (7-18); CALCIUM 8.3 mg/dL (8.5-10.1); CO2 26 mmol/L (21-32); CREATININE 0.5 mg/dL (0.7-1.3); GLUCOSE,RANDOM 231 mg/dL (74-106); PHOSPHOROUS 2.1 mg/dL (2.5-4.9); SGOT/AST 24 U/L (15-37); SGPT/ALT 48 U/L (12-78); TOT PROT 4.7 g/dl (6.4-8.2)
[2017-09-17 07:51] LABS: HEMATOCRIT 31.5 % (35.4-49); MCH 29.8 pg (25.7-33.7); MCHC 31.7 g/dl (32.0-35.9); MEAN CELL VOLUME 93.9 fl (80-96); MEAN PLT VOLUME 7.5 fl (7.5-11.1); PLATELET COUNT 378 K/MM3 (134-434); RBC 3.36 M/mm3 (4.00-5.60); RDW 23.6 % (11.9-15.9); WHITE BLOOD COUNT 14.1 K/mm3 (4.0-10.0)
[2017-09-17] MEDS: ALBUTEROL SO4 2.5/IPRATROPIUM 0.5 INH SOL 3 ML VIAL.NEB. NEB SCH ×4 (07:52→21:19)
[2017-09-17] MEDS: ERTAPENEM SODIUM 1 GM in SODIUM CHLORIDE 100 ML IVPB SCH (09:36)
[2017-09-17] MEDS: DEXAMETHASONE SOD PHOSPHATE 4 MG/1 ML VIAL IVPUSH SCH ×2 (09:36→22:03)
[2017-09-17] MEDS: TAMSULOSIN HCL 0.4 MG CAP.ER.24H (FP) PO SCH (10:02)
[2017-09-17] MEDS: AMINO ACIDS/PROTEIN HYDROLYS 30 ML LIQUID.PKT PO SCH ×2 (10:02→16:29)
[2017-09-17 10:03] LABS: ANISOCYTOSIS 3+; MACROCYTOSIS 1+; PLATELET ESTIMATE NORMAL
[2017-09-17] MEDS: DIGOXIN 0.125 MG TABLET (FP) PO SCH (10:03)
[2017-09-17] MEDS: POLYETHYLENE GLYCOL 3350 119 GM BTL PO SCH (10:04)
[2017-09-17] MEDS: BUDESONIDE/FORMETEROL FUMARATE 160/4.5 mcg INHALER IH SCH ×2 (10:06→22:04)
[2017-09-17] MEDS: APIXABAN 5 MG TABLET PO SCH ×2 (10:30→22:04)
--- NOTE | 2017-09-17 13:44 | PN ---
Progress Note, Physician History of Present Illness: PULMONARY ALERT,COMFORTABLE ON NASAL CANNULA ,-RESP DISTRESS - Current Medication List Current Medications: Active Medications Acetaminophen (Tylenol -) 650 mg PO Q6HPO PRN PRN Reason: PAIN OR FEVER Albuterol/Ipratropium (Duoneb -) 1 amp NEB RQID [facility] Last Admin: 09/17/17 12:11 Dose: Not Given Amino Acids (Prosource No Carb Liquid Pkt) 30 ml PO BID@0800,1730 [facility] Last Admin: 09/17/17 10:02 Dose: 30 ml Apixaban (Eliquis -) 5 mg PO BID [facility] Last Admin: 09/16/17 21:59 Dose: 5 mg Atorvastatin Calcium (Lipitor -) 40 mg PO HS [facility] Last Admin: 09/16/17 21:45 Dose: 40 mg Budesonide/Formoterol Fumarate (Symbicort 160/4.5mcg -) 1 puff IH BID [facility] Last Admin: 09/17/17 10:06 Dose: 1 puff Clotrimazole (Lotrimin 1% Cream -) 1 applic TP DAILY [facility] Last Admin: 09/16/17 17:09 Dose: Not Given Dexamethasone Sodium Phosphate (Decadron Injection -) 4 mg IVPUSH BID [facility] Last Admin: 09/17/17 09:36 Dose: 4 mg Dextrose (D50w (Vial) -) 25 gm IVPUSH PRN PRN PRN Reason: hypoglycemia Digoxin (Lanoxin -) 0.25 mg PO DAILY [facility] Last Admin: 09/17/17 10:03 Dose: 0.25 mg Ertapenem 1 gm/ Sodium (Chloride) 100 mls @ 200 mls/hr IVPB DAILY [facility] Last Admin: 09/17/17 09:36 Dose: 200 mls/hr Sodium Chloride (Normal Saline -) 1,000 mls @ 42 mls/hr IV ASDIR [facility] Last Admin: 09/16/17 21:59 Dose: 42 mls/hr Insulin Aspart (Novolog Vial Sliding Scale -) 1 vial SQ ACHS [facility] PRN Reason: Protocol Last Admin: 09/17/17 11:11 Dose: 4 unit Morphine Sulfate (Morphine Injection -) 2 mg IVPUSH Q4H PRN PRN Reason: PAIN LEVEL 7 - 10 Last Admin: 09/16/17 11:09 Dose: 2 mg Oxycodone HCl (Roxicodone -) 5 mg PO Q6H PRN PRN Reason: PAIN LEVEL 4 - 6 Last Admin: 09/17/17 00:57 Dose: 5 mg Polyethylene Glycol (Miralax (For Daily Use) -) 17 gm PO DAILY [facility] Last Admin: 09/17/17 10:04 Dose: 17 g Tamsulosin HCl (Flomax -) 0.4 mg PO DAILY@0900 [facility] Last Admin: 09/17/17 10:02 Dose: 0.4 mg - Objective Vital Signs: Vital Signs Temperature 98.3 F 09/17/17 06:00 Pulse Rate 74 09/17/17 10:03 Respiratory Rate 18 09/17/17 06:00 Blood Pressure 136/72 09/17/17 06:00 O2 Sat by Pulse Oximetry (%) 93 L 09/17/17 11:33 Constitutional: Yes: Calm, Obese Eyes: Yes: WNL HENT: Yes: WNL Neck: Yes: Supple Cardiovascular: Yes: Pulse Irregular, S1, S2 Respiratory: Yes: Diminished Gastrointestinal: Yes: Normal Bowel Sounds, Soft Extremities: Yes: WNL Edema: Yes Labs: CBC, BMP 09/17/17 06:30 09/17/17 06:30 INR, PTT INR 1.34 (0.82-1.09) H 09/13/17 05:15 Problem List - Problems (1) CHF (congestive heart failure) Code(s): I50.9 - HEART FAILURE, UNSPECIFIED (2) COPD (chronic obstructive pulmonary disease) Code(s): J44.9 - CHRONIC OBSTRUCTIVE PULMONARY DISEASE, UNSPECIFIED (3) Hypotension Code(s): I95.9 - HYPOTENSION, UNSPECIFIED (4) Sepsis Code(s): A41.9 - SEPSIS, UNSPECIFIED ORGANISM (5) Acute chronic obstructive pulmonary disease with respiratory distress Code(s): J44.9 - CHRONIC OBSTRUCTIVE PULMONARY DISEASE, UNSPECIFIED; R06.03 - ACUTE RESPIRATORY DISTRESS (6) Acute on chronic respiratory failure with hypoxia and hypercapnia Code(s): J96.21 - ACUTE AND CHRONIC RESPIRATORY FAILURE WITH HYPOXIA; J96.22 - ACUTE AND CHRONIC RESPIRATORY FAILURE WITH HYPERCAPNIA (7) Atrial fibrillation Code(s): I48.91 - UNSPECIFIED ATRIAL FIBRILLATION Qualifiers: Atrial fibrillation type: chronic Qualified Code(s): I48.2 - Chronic atrial fibrillation (8) Edema Code(s): R60.9 - EDEMA, UNSPECIFIED (9) Sleep apnea Code(s): G47.30 - SLEEP APNEA, UNSPECIFIED Assessment/Plan UTI Sepsis Lactic Acidosis resolved LV Diastolic Dysfunction COPD Morbid Obesity Obstructive Sleep Apnea Paroxysmal Atrial Fibrillation HTN Hyperlipidemia (?) Hypoadrenalism - ABX coverage as per ID - Taper stress dose steroids - inhaled bronchodilators - O2 to keep SpO2 >90% - NIPPV to assist in work of breathing - rate control - continue anticoagulation DR STACK
--- NOTE | 2017-09-17 14:06 | PN ---
Progress Note, Physician - Current Medication List Current Medications: Active Medications Acetaminophen (Tylenol -) 650 mg PO Q6HPO PRN PRN Reason: PAIN OR FEVER Albuterol/Ipratropium (Duoneb -) 1 amp NEB RQID [facility] Last Admin: 09/17/17 12:11 Dose: Not Given Amino Acids (Prosource No Carb Liquid Pkt) 30 ml PO BID@0800,1730 [facility] Last Admin: 09/17/17 10:02 Dose: 30 ml Apixaban (Eliquis -) 5 mg PO BID [facility] Last Admin: 09/16/17 21:59 Dose: 5 mg Atorvastatin Calcium (Lipitor -) 40 mg PO HS [facility] Last Admin: 09/16/17 21:45 Dose: 40 mg Budesonide/Formoterol Fumarate (Symbicort 160/4.5mcg -) 1 puff IH BID [facility] Last Admin: 09/17/17 10:06 Dose: 1 puff Clotrimazole (Lotrimin 1% Cream -) 1 applic TP DAILY [facility] Last Admin: 09/16/17 17:09 Dose: Not Given Dexamethasone Sodium Phosphate (Decadron Injection -) 3 mg IVPUSH BID [facility] Dextrose (D50w (Vial) -) 25 gm IVPUSH PRN PRN PRN Reason: hypoglycemia Digoxin (Lanoxin -) 0.25 mg PO DAILY [facility] Last Admin: 09/17/17 10:03 Dose: 0.25 mg Ertapenem 1 gm/ Sodium (Chloride) 100 mls @ 200 mls/hr IVPB DAILY [facility] Last Admin: 09/17/17 09:36 Dose: 200 mls/hr Sodium Chloride (Normal Saline -) 1,000 mls @ 42 mls/hr IV ASDIR [facility] Last Admin: 09/16/17 21:59 Dose: 42 mls/hr Insulin Aspart (Novolog Vial Sliding Scale -) 1 vial SQ ACHS [facility] PRN Reason: Protocol Last Admin: 09/17/17 11:11 Dose: 4 unit Morphine Sulfate (Morphine Injection -) 2 mg IVPUSH Q4H PRN PRN Reason: PAIN LEVEL 7 - 10 Last Admin: 09/16/17 11:09 Dose: 2 mg Oxycodone HCl (Roxicodone -) 5 mg PO Q6H PRN PRN Reason: PAIN LEVEL 4 - 6 Last Admin: 09/17/17 00:57 Dose: 5 mg Polyethylene Glycol (Miralax (For Daily Use) -) 17 gm PO DAILY [facility] Last Admin: 09/17/17 10:04 Dose: 17 g Tamsulosin HCl (Flomax -) 0.4 mg PO DAILY@0900 [facility] Last Admin: 09/17/17 10:02 Dose: 0.4 mg - Objective Vital Signs: Vital Signs Temperature 98.3 F 09/17/17 06:00 Pulse Rate 74 09/17/17 10:03 Respiratory Rate 18 09/17/17 06:00 Blood Pressure 136/72 09/17/17 06:00 O2 Sat by Pulse Oximetry (%) 93 L 09/17/17 11:33 Cardiovascular: Yes: S1, S2 Respiratory: Yes: Regular, CTA Bilaterally Gastrointestinal: Yes: Normal Bowel Sounds, Soft, Other (umbilical hernia) Labs: CBC, BMP 09/17/17 06:30 09/17/17 06:30 INR, PTT INR 1.34 (0.82-1.09) H 09/13/17 05:15 Problem List - Problems (1) Hypotension Code(s): I95.9 - HYPOTENSION, UNSPECIFIED (2) CHF (congestive heart failure) Code(s): I50.9 - HEART FAILURE, UNSPECIFIED (3) Atrial fibrillation Code(s): I48.91 - UNSPECIFIED ATRIAL FIBRILLATION Qualifiers: Atrial fibrillation type: chronic Qualified Code(s): I48.2 - Chronic atrial fibrillation (4) COPD (chronic obstructive pulmonary disease) Code(s): J44.9 - CHRONIC OBSTRUCTIVE PULMONARY DISEASE, UNSPECIFIED Qualifiers: COPD type: unspecified COPD Qualified Code(s): J44.9 - Chronic obstructive pulmonary disease, unspecified (5) Diabetes mellitus Code(s): E11.9 - TYPE 2 DIABETES MELLITUS WITHOUT COMPLICATIONS Qualifiers: Diabetes mellitus type: type 2 (6) Morbid obesity Code(s): E66.01 - MORBID (SEVERE) OBESITY DUE TO EXCESS CALORIES (7) Umbilical hernia Code(s): K42.9 - UMBILICAL HERNIA WITHOUT OBSTRUCTION OR GANGRENE Qualifiers: Obstruction and gangrene presence: without obstruction or gangrene Qualified Code(s): K42.9 - Umbilical hernia without obstruction or gangrene Assessment/Plan - Problems (1) Dehydration Assessment/Plan: -improved -nephrology consult -cardiology consult -IVF -hold BP meds Code(s): E86.0 - DEHYDRATION (2) Atrial fibrillation Assessment/Plan: -chronic -On AC -cardiac monitoring Code(s): I48.91 - UNSPECIFIED ATRIAL FIBRILLATION Qualifiers: Atrial fibrillation type: chronic Qualified Code(s): I48.2 - Chronic atrial fibrillation (3) Diabetes mellitus Assessment/Plan: -insulin sliding scale -diabetic diet -endocrine consult Code(s): E11.9 - TYPE 2 DIABETES MELLITUS WITHOUT COMPLICATIONS Qualifiers: Diabetes mellitus type: type 2 (4) Umbilical discharge--Hernia Assessment/Plan: Wound culture: Microbiology 09/11/17 15:50 Abdomen Gram Stain - Final 09/11/17 15:50 Abdomen Wound Culture - Preliminary Escherichia Coli Esbl Utility Driver Mr S Aureus Diphtheroid/Corynebacterium Group D Strep Or Entero Coccus 09/09/17 13:47 Blood - Peripheral Venous Blood Culture - Final NO GROWTH AFTER 5 DAYS INCUBATION 09/09/17 13:38 Blood - Peripheral Venous Blood Culture - Final NO GROWTH AFTER 5 DAYS INCUBATION 09/09/17 16:31 Urine - Urine Clean Catch Urine Culture - Final Escherichia Coli Esbl Utility Driver -GI -surgery consult noted--surgery at a lter date Code(s): R19.8 - OTH SYMPTOMS AND SIGNS INVOLVING THE DGSTV SYS AND ABDOMEN (5) COPD (chronic obstructive pulmonary disease) Assessment/Plan: -BIPAP prn -end stage -Nasal o2 as needed -bronchodilators -Pulmonary consult appreciated Code(s): J44.9 - CHRONIC OBSTRUCTIVE PULMONARY DISEASE, UNSPECIFIED (6) Leukocytosis Assessment/Plan: -2/2 to IV steroids -afebrile -ID on board Code(s): D72.829 - ELEVATED WHITE BLOOD CELL COUNT, UNSPECIFIED
--- NOTE | 2017-09-17 15:16 | PN ---
Progress Note (short form) - Note Progress Note: day #6 of 7 ertapenem +BM today Vital Signs Period Temp Pulse Resp BP Sys/Park Pulse Ox Last 24 Hr 97.7 F-98.4 F 71-101 18-18 101-136/60-72 93-96 cor-rrr lungs clear abd soft,nt ext trace edema CBC, BMP 09/17/17 06:30 09/17/17 06:30 Microbiology 09/11/17 15:50 Abdomen Gram Stain - Final 09/11/17 15:50 Abdomen Wound Culture - Final Escherichia Coli Esbl Tetryl Blender Operator Mr S Aureus Diphtheroid/Corynebacterium Enterococcus Gallinarum 09/09/17 13:47 Blood - Peripheral Venous Blood Culture - Final NO GROWTH AFTER 5 DAYS INCUBATION 09/09/17 13:38 Blood - Peripheral Venous Blood Culture - Final NO GROWTH AFTER 5 DAYS INCUBATION 09/09/17 16:31 Urine - Urine Clean Catch Urine Culture - Final Escherichia Coli Esbl Tetryl Blender Operator imp/reccd sepsis/ecoli esbl uti chf copd ertapenem day #7 consider d/c villareal contact isolation constipation- miralax prn please call back if needed Problem List - Problems (1) Sepsis Code(s): A41.9 - SEPSIS, UNSPECIFIED ORGANISM (2) UTI (urinary tract infection) Code(s): N39.0 - URINARY TRACT INFECTION, SITE NOT SPECIFIED (3) Infection due to ESBL-producing Escherichia coli Code(s): A49.8 - OTHER BACTERIAL INFECTIONS OF UNSPECIFIED SITE; Z16.12 - EXTENDED SPECTRUM BETA LACTAMASE (ESBL) RESISTANCE (4) CHF (congestive heart failure) Code(s): I50.9 - HEART FAILURE, UNSPECIFIED (5) COPD (chronic obstructive pulmonary disease) Code(s): J44.9 - CHRONIC OBSTRUCTIVE PULMONARY DISEASE, UNSPECIFIED
--- NOTE | 2017-09-17 16:15 | PN ---
Progress Note, Physician History of Present Illness: Pt seen and examined at bedside. He is awake and alert. He is tolerating diet. He denies shortness of breath. - Current Medication List Current Medications: Active Medications Acetaminophen (Tylenol -) 650 mg PO Q6HPO PRN PRN Reason: PAIN OR FEVER Albuterol/Ipratropium (Duoneb -) 1 amp NEB RQID [facility] Last Admin: 09/17/17 12:11 Dose: Not Given Amino Acids (Prosource No Carb Liquid Pkt) 30 ml PO BID@0800,1730 [facility] Last Admin: 09/17/17 10:02 Dose: 30 ml Apixaban (Eliquis -) 5 mg PO BID [facility] Last Admin: 09/16/17 21:59 Dose: 5 mg Atorvastatin Calcium (Lipitor -) 40 mg PO HS [facility] Last Admin: 09/16/17 21:45 Dose: 40 mg Budesonide/Formoterol Fumarate (Symbicort 160/4.5mcg -) 1 puff IH BID [facility] Last Admin: 09/17/17 10:06 Dose: 1 puff Clotrimazole (Lotrimin 1% Cream -) 1 applic TP DAILY [facility] Last Admin: 09/16/17 17:09 Dose: Not Given Dexamethasone Sodium Phosphate (Decadron Injection -) 3 mg IVPUSH BID [facility] Dextrose (D50w (Vial) -) 25 gm IVPUSH PRN PRN PRN Reason: hypoglycemia Digoxin (Lanoxin -) 0.25 mg PO DAILY [facility] Last Admin: 09/17/17 10:03 Dose: 0.25 mg Ertapenem 1 gm/ Sodium (Chloride) 100 mls @ 200 mls/hr IVPB DAILY [facility] Last Admin: 09/17/17 09:36 Dose: 200 mls/hr Sodium Chloride (Normal Saline -) 1,000 mls @ 42 mls/hr IV ASDIR [facility] Last Admin: 09/16/17 21:59 Dose: 42 mls/hr Insulin Aspart (Novolog Vial Sliding Scale -) 1 vial SQ ACHS [facility] PRN Reason: Protocol Last Admin: 09/17/17 11:11 Dose: 4 unit Morphine Sulfate (Morphine Injection -) 2 mg IVPUSH Q4H PRN PRN Reason: PAIN LEVEL 7 - 10 Last Admin: 09/16/17 11:09 Dose: 2 mg Oxycodone HCl (Roxicodone -) 5 mg PO Q6H PRN PRN Reason: PAIN LEVEL 4 - 6 Last Admin: 09/17/17 00:57 Dose: 5 mg Polyethylene Glycol (Miralax (For Daily Use) -) 17 gm PO DAILY [facility] Last Admin: 09/17/17 10:04 Dose: 17 g Tamsulosin HCl (Flomax -) 0.4 mg PO DAILY@0900 [facility] Last Admin: 09/17/17 10:02 Dose: 0.4 mg - Objective Vital Signs: Vital Signs Temperature 97.3 F L 09/17/17 15:54 Pulse Rate 98 H 09/17/17 15:54 Respiratory Rate 20 09/17/17 15:54 Blood Pressure 110/71 09/17/17 15:54 O2 Sat by Pulse Oximetry (%) 93 L 09/17/17 15:06 Constitutional: Yes: Calm Eyes: Yes: Conjunctiva Clear HENT: Yes: Atraumatic Cardiovascular: Yes: S1, S2 Respiratory: Yes: On Nasal O2 Gastrointestinal: Yes: Soft, Abdomen, Obese Genitourinary: Yes: Mathews Present Musculoskeletal: Yes: WNL Edema: Yes Edema: LLE: 1+, RLE: 1+ Neurological: Yes: Oriented Psychiatric: Yes: Oriented Labs: CBC, BMP 09/17/17 06:30 09/17/17 06:30 INR, PTT INR 1.34 (0.82-1.09) H 09/13/17 05:15 Problem List - Problems (1) CHF (congestive heart failure) Code(s): I50.9 - HEART FAILURE, UNSPECIFIED (2) COPD (chronic obstructive pulmonary disease) Code(s): J44.9 - CHRONIC OBSTRUCTIVE PULMONARY DISEASE, UNSPECIFIED (3) Hypotension Code(s): I95.9 - HYPOTENSION, UNSPECIFIED (4) Sepsis Code(s): A41.9 - SEPSIS, UNSPECIFIED ORGANISM Assessment/Plan Current Medications Generic Name Dose Route Start Last Admin Trade Name Freq PRN Reason Stop Dose Admin Acetaminophen 650 mg 09/15/17 13:14 Tylenol - PO Q6HPO PRN PAIN OR FEVER Albuterol/Ipratropium 1 amp 09/14/17 12:00 09/17/17 12:11 Duoneb - NEB Not Given RQID ARVIND Amino Acids 30 ml 09/14/17 17:30 03/10/18 10:02 Prosource No Carb Liquid Pkt PO 30 ml BID@0800,1730 ARVIND Administration Apixaban 5 mg 09/14/17 22:00 09/16/17 21:59 Eliquis - PO 5 mg BID ARVIND Administration Atorvastatin Calcium 40 mg 09/14/17 22:00 09/16/17 21:45 Lipitor - PO 40 mg HS ARVIND Administration Budesonide/Formoterol Fumarate 1 puff 09/14/17 14:00 09/17/17 10:06 Symbicort 160/4.5mcg - IH 1 puff BID ARVIND Administration Clotrimazole 1 applic 09/15/17 10:00 09/16/17 17:09 Lotrimin 1% Cream - TP Not Given DAILY [facility] Dexamethasone Sodium Phosphate 3 mg 09/17/17 13:45 Decadron Injection - IVPUSH BID [facility] Dextrose 25 gm 09/14/17 11:36 D50w (Vial) - IVPUSH PRN PRN hypoglycemia Digoxin 0.25 mg 09/15/17 10:00 09/17/17 10:03 Lanoxin - PO 0.25 mg DAILY [facility] Administration Ertapenem 1 gm/ Sodium 100 mls @ 200 mls/hr 09/12/17 12:45 09/17/17 09:36 Chloride IVPB 200 mls/hr DAILY [facility]IND Administration Sodium Chloride 1,000 mls @ 42 mls/hr 09/16/17 16:24 09/16/17 21:59 Normal Saline - IV 42 mls/hr ASDIR ARVIDN Administration Insulin Aspart 1 vial 09/14/17 16:30 09/17/17 11:11 Novolog Vial Sliding Scale - SQ 4 unit ACHS ARVIND Administration Protocol Morphine Sulfate 2 mg 09/15/17 13:13 09/16/17 11:09 Morphine Injection - IVPUSH 2 mg Q4H PRN Administration PAIN LEVEL 7 - 10 Oxycodone HCl 5 mg 09/15/17 13:13 09/17/17 00:57 Roxicodone - PO 5 mg Q6H PRN Administration PAIN LEVEL 4 - 6 Polyethylene Glycol 17 gm 09/13/17 10:45 09/17/17 10:04 Miralax (For Daily Use) - PO 17 g DAILY [facility]IND Administration Tamsulosin HCl 0.4 mg 09/13/17 09:00 03/10/18 10:02 Flomax - PO 0.4 mg DAILY@0900 [facility]IND Administration Laboratory Tests 09/17/17 06:30 Phosphorus 2.1 L Impression 1. SHAKIR 2. CHF 3. obstructive sleep apnea 4. obesity 5. DM 6. HTN 7. hyperlipidemia 8. resp failure requiring bipap 9. sepsis 10. UTI Plan - d/c fluids - will evaluate for lasix tomorrow - repeat bmp in am - cont abx - voiding trial when he is done with abx - replace phos Dr Aguilar
[2017-09-17] MEDS: CLOTRIMAZOLE 1% CREAM 15 GM TUBE TP SCH (16:24)
[2017-09-17] MEDS ORDERED: PT OWN MED DRAWER 7, Y5N ONE (21:34)
[2017-09-17] MEDS: NAPH,MB-DB/K PH,MBDB POWDER PACKET PO SCH (22:04)
[2017-09-17] MEDS: ATORVASTATIN CA 40 MG TABLET (FP) PO SCH (22:04)
[2017-09-18] MEDS: NAPH,MB-DB/K PH,MBDB POWDER PACKET PO SCH ×3 (06:03→21:46)
[2017-09-18] MEDS: INSULIN SLIDING SCALE (NOVOLOG) 1 VIAL SQ SCH ×4 (06:03→21:36)
[2017-09-18] MEDS ORDERED: PT OWN MED DRAWER 7, Y5N ONE ×3 (06:35→21:29)
[2017-09-18] MEDS ORDERED: INSULIN (NOVOLOG) ASPART 100 UNITS/ML 10ML VIAL ONE ×3 (06:35→21:28)
[2017-09-18 07:46] LABS: HEMATOCRIT 31.8 % (35.4-49); HEMOGLOBIN 10.2 GM/dL (11.7-16.9); MCH 30.2 pg (25.7-33.7); MCHC 32.1 g/dl (32.0-35.9); MEAN CELL VOLUME 93.9 fl (80-96); MEAN PLT VOLUME 7.7 fl (7.5-11.1); PLATELET COUNT 361 K/MM3 (134-434); RBC 3.38 M/mm3 (4.00-5.60); RDW 23.4 % (11.9-15.9); WHITE BLOOD COUNT 15.5 K/mm3 (4.0-10.0)
[2017-09-18 07:50] LABS: ALBUMIN 1.8 g/dl (3.4-5.0); ALK PHOS 120 U/L (45-117); ANION GAP 7 (8-16); BILIRUBIN,TOTAL 0.7 mg/dL (0.2-1.0); BLOOD UREA NITROGEN 12 mg/dL (7-18); CALCIUM 7.6 mg/dL (8.5-10.1); CHLORIDE 108 mmol/L (98-107); CO2 27 mmol/L (21-32); CREATININE 0.5 mg/dL (0.7-1.3); GLUCOSE,RANDOM 245 mg/dL (74-106); PHOSPHOROUS 2.3 mg/dL (2.5-4.9); POTASSIUM 4.4 mmol/L (3.5-5.1); SGOT/AST 25 U/L (15-37); SGPT/ALT 49 U/L (12-78); SODIUM 142 mmol/L (136-145); TOT PROT 4.5 g/dl (6.4-8.2)
[2017-09-18 08:13] LABS: ADD RBC MORPHOLOGY YES
[2017-09-18] MEDS: ALBUTEROL SO4 2.5/IPRATROPIUM 0.5 INH SOL 3 ML VIAL.NEB. NEB SCH ×4 (08:20→20:39)
[2017-09-18] MEDS: APIXABAN 5 MG TABLET PO SCH ×2 (09:39→21:37)
[2017-09-18] MEDS: DIGOXIN 0.125 MG TABLET (FP) PO SCH (09:39)
[2017-09-18] MEDS: TAMSULOSIN HCL 0.4 MG CAP.ER.24H (FP) PO SCH (09:39)
[2017-09-18] MEDS: AMINO ACIDS/PROTEIN HYDROLYS 30 ML LIQUID.PKT PO SCH ×2 (09:39→17:11)
[2017-09-18] MEDS: CLOTRIMAZOLE 1% CREAM 15 GM TUBE TP SCH (09:39)
[2017-09-18] MEDS: DEXAMETHASONE SOD PHOSPHATE 4 MG/1 ML VIAL IVPUSH SCH (09:40)
[2017-09-18] MEDS: BUDESONIDE/FORMETEROL FUMARATE 160/4.5 mcg INHALER IH SCH ×2 (09:42→21:46)
[2017-09-18] MEDS: POLYETHYLENE GLYCOL 3350 119 GM BTL PO SCH (09:43)
[2017-09-18] MEDS: ERTAPENEM SODIUM 1 GM in SODIUM CHLORIDE 100 ML IVPB SCH (10:31)
--- NOTE | 2017-09-18 12:02 | PN ---
Progress Note, Physician History of Present Illness: 72M pulmonary hypertension, CHF, COPD, GERD, kidney failure, D2M, HLD, aFib here today complaining of altered mental status. [facility] paper work states that the patient was found with a decreased level of consciousness. Paperwork described patient as lethargic, but still responsive to name, tactile, and painful. Glucose was 73. Patient denies any complaints at this time. Patient denies chest pain, shortness of breath, abdominal pain, headache. He endorses a baseline shortness of breath. He does state that he has not been eating as much , but denies nausea, vomiting, fevers and chills. In ICU awake and alert - Current Medication List Current Medications: Active Medications Acetaminophen (Tylenol -) 650 mg PO Q6HPO PRN PRN Reason: PAIN OR FEVER Albuterol/Ipratropium (Duoneb -) 1 amp NEB RQID [facility] Last Admin: 09/18/17 11:55 Dose: 1 amp Amino Acids (Prosource No Carb Liquid Pkt) 30 ml PO BID@0800,1730 [facility] Last Admin: 09/18/17 09:39 Dose: 30 ml Apixaban (Eliquis -) 5 mg PO BID [facility] Last Admin: 09/18/17 09:39 Dose: 5 mg Atorvastatin Calcium (Lipitor -) 40 mg PO HS [facility] Last Admin: 09/17/17 22:04 Dose: 40 mg Budesonide/Formoterol Fumarate (Symbicort 160/4.5mcg -) 1 puff IH BID [facility] Last Admin: 09/18/17 09:42 Dose: 1 puff Clotrimazole (Lotrimin 1% Cream -) 1 applic TP DAILY [facility] Last Admin: 09/18/17 09:39 Dose: 1 applic Dexamethasone Sodium Phosphate (Decadron Injection -) 3 mg IVPUSH BID [facility] Last Admin: 09/18/17 09:40 Dose: 3 mg Dextrose (D50w (Vial) -) 25 gm IVPUSH PRN PRN PRN Reason: hypoglycemia Digoxin (Lanoxin -) 0.25 mg PO DAILY [facility] Last Admin: 09/18/17 09:39 Dose: 0.25 mg Ertapenem 1 gm/ Sodium (Chloride) 100 mls @ 200 mls/hr IVPB DAILY [facility] Last Admin: 09/18/17 10:31 Dose: 200 mls/hr Insulin Aspart (Novolog Vial Sliding Scale -) 1 vial SQ ACHS [facility] PRN Reason: Protocol Last Admin: 09/18/17 06:03 Dose: 6 unit Morphine Sulfate (Morphine Injection -) 2 mg IVPUSH Q4H PRN PRN Reason: PAIN LEVEL 7 - 10 Last Admin: 09/16/17 11:09 Dose: 2 mg Oxycodone HCl (Roxicodone -) 5 mg PO Q6H PRN PRN Reason: PAIN LEVEL 4 - 6 Last Admin: 09/17/17 00:57 Dose: 5 mg Polyethylene Glycol (Miralax (For Daily Use) -) 17 gm PO DAILY [facility] Last Admin: 09/18/17 09:43 Dose: Not Given Potassium Phos/Sodium Phos (Phos-Nak Packet -) 1 packet PO TID [facility] Stop: 09/19/17 14:01 Last Admin: 09/18/17 06:03 Dose: 1 packet Tamsulosin HCl (Flomax -) 0.4 mg PO DAILY@0900 [facility] Last Admin: 09/18/17 09:39 Dose: 0.4 mg - Objective Vital Signs: Vital Signs Temperature 98.4 F 09/18/17 06:11 Pulse Rate 78 09/18/17 11:58 Respiratory Rate 20 09/18/17 06:11 Blood Pressure 122/77 09/18/17 06:11 O2 Sat by Pulse Oximetry (%) 97 09/18/17 11:58 Cardiovascular: Yes: Regular Rate and Rhythm Respiratory: Yes: Regular, CTA Bilaterally Gastrointestinal: Yes: Normal Bowel Sounds, Soft Labs: CBC, BMP 09/18/17 06:00 09/18/17 06:00 INR, PTT INR 1.34 (0.82-1.09) H 09/13/17 05:15 Problem List - Problems (1) Hypotension Code(s): I95.9 - HYPOTENSION, UNSPECIFIED (2) CHF (congestive heart failure) Code(s): I50.9 - HEART FAILURE, UNSPECIFIED (3) Atrial fibrillation Code(s): I48.91 - UNSPECIFIED ATRIAL FIBRILLATION Qualifiers: Atrial fibrillation type: chronic Qualified Code(s): I48.2 - Chronic atrial fibrillation (4) COPD (chronic obstructive pulmonary disease) Code(s): J44.9 - CHRONIC OBSTRUCTIVE PULMONARY DISEASE, UNSPECIFIED Qualifiers: COPD type: unspecified COPD Qualified Code(s): J44.9 - Chronic obstructive pulmonary disease, unspecified (5) Diabetes mellitus Code(s): E11.9 - TYPE 2 DIABETES MELLITUS WITHOUT COMPLICATIONS Qualifiers: Diabetes mellitus type: type 2 (6) Morbid obesity Code(s): E66.01 - MORBID (SEVERE) OBESITY DUE TO EXCESS CALORIES (7) Umbilical hernia Code(s): K42.9 - UMBILICAL HERNIA WITHOUT OBSTRUCTION OR GANGRENE Qualifiers: Obstruction and gangrene presence: without obstruction or gangrene Qualified Code(s): K42.9 - Umbilical hernia without obstruction or gangrene Assessment/Plan - Problems (1) Dehydration Assessment/Plan: -improved -nephrology consult -cardiology consult -IVF -hold BP meds Code(s): E86.0 - DEHYDRATION (2) Atrial fibrillation Assessment/Plan: -chronic -On AC -cardiac monitoring Code(s): I48.91 - UNSPECIFIED ATRIAL FIBRILLATION Qualifiers: Atrial fibrillation type: chronic Qualified Code(s): I48.2 - Chronic atrial fibrillation (3) Diabetes mellitus Assessment/Plan: -insulin sliding scale -diabetic diet -endocrine consult Code(s): E11.9 - TYPE 2 DIABETES MELLITUS WITHOUT COMPLICATIONS Qualifiers: Diabetes mellitus type: type 2 (4) Umbilical discharge--Hernia Assessment/Plan: Wound culture: Microbiology 09/11/17 15:50 Abdomen Gram Stain - Final 09/11/17 15:50 Abdomen Wound Culture - Preliminary Escherichia Coli Esbl Tone Artist Apprentice Mr S Aureus Diphtheroid/Corynebacterium Group D Strep Or Entero Coccus 09/09/17 13:47 Blood - Peripheral Venous Blood Culture - Final NO GROWTH AFTER 5 DAYS INCUBATION 09/09/17 13:38 Blood - Peripheral Venous Blood Culture - Final NO GROWTH AFTER 5 DAYS INCUBATION 09/09/17 16:31 Urine - Urine Clean Catch Urine Culture - Final Escherichia Coli Esbl Tone Artist Apprentice -GI -surgery consult noted--surgery at a lter date Code(s): R19.8 - OTH SYMPTOMS AND SIGNS INVOLVING THE DGSTV SYS AND ABDOMEN (5) COPD (chronic obstructive pulmonary disease) Assessment/Plan: -BIPAP prn -end stage -Nasal o2 as needed -bronchodilators -Pulmonary consult appreciated Code(s): J44.9 - CHRONIC OBSTRUCTIVE PULMONARY DISEASE, UNSPECIFIED (6) Leukocytosis Assessment/Plan: -2/2 to IV steroids -afebrile -ID on board Code(s): D72.829 - ELEVATED WHITE BLOOD CELL COUNT, UNSPECIFIED
[2017-09-18 12:53] LABS: ANISOCYTOSIS 2+
[2017-09-18 12:54] LABS: PLATELET ESTIMATE ADEQUATE
--- NOTE | 2017-09-18 14:15 | PN ---
Progress Note, Physician History of Present Illness: PULMONARY ALERT,FEELING BETTER,-SOB ON NASAL CANNULA.NOVA CATH REMOVED - Current Medication List Current Medications: Active Medications Acetaminophen (Tylenol -) 650 mg PO Q6HPO PRN PRN Reason: PAIN OR FEVER Albuterol/Ipratropium (Duoneb -) 1 amp NEB RQID [facility] Last Admin: 09/18/17 11:55 Dose: 1 amp Amino Acids (Prosource No Carb Liquid Pkt) 30 ml PO BID@0800,1730 [facility] Last Admin: 09/18/17 09:39 Dose: 30 ml Apixaban (Eliquis -) 5 mg PO BID [facility] Last Admin: 09/18/17 09:39 Dose: 5 mg Atorvastatin Calcium (Lipitor -) 40 mg PO HS [facility] Last Admin: 09/17/17 22:04 Dose: 40 mg Budesonide/Formoterol Fumarate (Symbicort 160/4.5mcg -) 1 puff IH BID [facility] Last Admin: 09/18/17 09:42 Dose: 1 puff Clotrimazole (Lotrimin 1% Cream -) 1 applic TP DAILY [facility] Last Admin: 09/18/17 09:39 Dose: 1 applic Dexamethasone (Decadron -) 3 mg PO BID [facility] Dextrose (D50w (Vial) -) 25 gm IVPUSH PRN PRN PRN Reason: hypoglycemia Digoxin (Lanoxin -) 0.25 mg PO DAILY [facility] Last Admin: 09/18/17 09:39 Dose: 0.25 mg Ertapenem 1 gm/ Sodium (Chloride) 100 mls @ 200 mls/hr IVPB DAILY [facility] Last Admin: 09/18/17 10:31 Dose: 200 mls/hr Insulin Aspart (Novolog Vial Sliding Scale -) 1 vial SQ ACHS [facility] PRN Reason: Protocol Last Admin: 09/18/17 12:07 Dose: 6 unit Oxycodone HCl (Roxicodone -) 5 mg PO Q6H PRN PRN Reason: PAIN LEVEL 4 - 6 Last Admin: 09/17/17 00:57 Dose: 5 mg Polyethylene Glycol (Miralax (For Daily Use) -) 17 gm PO DAILY [facility] Last Admin: 09/18/17 09:43 Dose: Not Given Potassium Phos/Sodium Phos (Phos-Nak Packet -) 1 packet PO TID [facility] Stop: 09/19/17 14:01 Last Admin: 09/18/17 06:03 Dose: 1 packet Tamsulosin HCl (Flomax -) 0.4 mg PO DAILY@0900 [facility] Last Admin: 09/18/17 09:39 Dose: 0.4 mg - Objective Vital Signs: Vital Signs Temperature 98.4 F 09/18/17 06:11 Pulse Rate 78 09/18/17 11:58 Respiratory Rate 20 09/18/17 06:11 Blood Pressure 122/77 09/18/17 06:11 O2 Sat by Pulse Oximetry (%) 97 09/18/17 11:58 Constitutional: Yes: Calm, Obese Eyes: Yes: WNL HENT: Yes: WNL Neck: Yes: WNL Cardiovascular: Yes: Pulse Irregular, S1, S2 Respiratory: Yes: Diminished Gastrointestinal: Yes: Normal Bowel Sounds, Soft Extremities: Yes: WNL Edema: Yes Labs: CBC, BMP 09/18/17 06:00 09/18/17 06:00 INR, PTT INR 1.34 (0.82-1.09) H 09/13/17 05:15 Problem List - Problems (1) CHF (congestive heart failure) Code(s): I50.9 - HEART FAILURE, UNSPECIFIED (2) COPD (chronic obstructive pulmonary disease) Code(s): J44.9 - CHRONIC OBSTRUCTIVE PULMONARY DISEASE, UNSPECIFIED (3) Hypotension Code(s): I95.9 - HYPOTENSION, UNSPECIFIED (4) Sepsis Code(s): A41.9 - SEPSIS, UNSPECIFIED ORGANISM (5) Acute chronic obstructive pulmonary disease with respiratory distress Code(s): J44.9 - CHRONIC OBSTRUCTIVE PULMONARY DISEASE, UNSPECIFIED; R06.03 - ACUTE RESPIRATORY DISTRESS (6) Acute on chronic respiratory failure with hypoxia and hypercapnia Code(s): J96.21 - ACUTE AND CHRONIC RESPIRATORY FAILURE WITH HYPOXIA; J96.22 - ACUTE AND CHRONIC RESPIRATORY FAILURE WITH HYPERCAPNIA (7) Atrial fibrillation Code(s): I48.91 - UNSPECIFIED ATRIAL FIBRILLATION Qualifiers: Atrial fibrillation type: chronic Qualified Code(s): I48.2 - Chronic atrial fibrillation (8) Edema Code(s): R60.9 - EDEMA, UNSPECIFIED (9) Sleep apnea Code(s): G47.30 - SLEEP APNEA, UNSPECIFIED Assessment/Plan UTI Sepsis resolved Lactic Acidosis resolved LV Diastolic Dysfunction COPD Morbid Obesity Obstructive Sleep Apnea Paroxysmal Atrial Fibrillation HTN Hyperlipidemia (?) Hypoadrenalism - ABX coverage as per ID - Taper stress dose steroids - inhaled bronchodilators - O2 to keep SpO2 >90% - NIPPV to assist in work of breathing - rate control - continue anticoagulation DR STACK
--- NOTE | 2017-09-18 17:26 | PN ---
Progress Note (short form) - Note Progress Note: hypotension History of Present Illness: IVF stopped yesterday. Mathews removed no cp, no sob/orthopnea (laying flat), no palpitations. Current Medications Acetaminophen (Tylenol -) 650 mg PO Q6HPO PRN PRN Reason: PAIN OR FEVER Albuterol/Ipratropium (Duoneb -) 1 amp NEB RQID [facility] Last Admin: 09/18/17 16:06 Dose: 1 amp Amino Acids (Prosource No Carb Liquid Pkt) 30 ml PO BID@0800,1730 [facility] Last Admin: 09/18/17 17:11 Dose: 30 ml Apixaban (Eliquis -) 5 mg PO BID [facility] Last Admin: 09/18/17 09:39 Dose: 5 mg Atorvastatin Calcium (Lipitor -) 40 mg PO HS [facility] Last Admin: 09/17/17 22:04 Dose: 40 mg Budesonide/Formoterol Fumarate (Symbicort 160/4.5mcg -) 1 puff IH BID [facility] Last Admin: 09/18/17 09:42 Dose: 1 puff Clotrimazole (Lotrimin 1% Cream -) 1 applic TP DAILY [facility] Last Admin: 09/18/17 09:39 Dose: 1 applic Dexamethasone (Decadron -) 3 mg PO BID [facility] Dextrose (D50w (Vial) -) 25 gm IVPUSH PRN PRN PRN Reason: hypoglycemia Digoxin (Lanoxin -) 0.25 mg PO DAILY [facility] Last Admin: 09/18/17 09:39 Dose: 0.25 mg Ertapenem 1 gm/ Sodium (Chloride) 100 mls @ 200 mls/hr IVPB DAILY [facility] Last Admin: 09/18/17 10:31 Dose: 200 mls/hr Insulin Aspart (Novolog Vial Sliding Scale -) 1 vial SQ ACHS [facility] PRN Reason: Protocol Last Admin: 09/18/17 17:10 Dose: 6 unit Oxycodone HCl (Roxicodone -) 5 mg PO Q6H PRN PRN Reason: PAIN LEVEL 4 - 6 Last Admin: 09/17/17 00:57 Dose: 5 mg Polyethylene Glycol (Miralax (For Daily Use) -) 17 gm PO DAILY [facility] Last Admin: 09/18/17 09:43 Dose: Not Given Potassium Phos/Sodium Phos (Phos-Nak Packet -) 1 packet PO TID [facility] Stop: 09/19/17 14:01 Last Admin: 09/18/17 14:29 Dose: 1 packet Tamsulosin HCl (Flomax -) 0.4 mg PO DAILY@0900 [facility] Last Admin: 09/18/17 09:39 Dose: 0.4 mg - Objective Vital Signs: Vital Signs - 24 hr 09/17/17 09/17/17 09/17/17 17:07 21:20 21:30 Temperature 97.7 F 97.5 F L Pulse Rate 113 H 95 H Respiratory 20 20 Rate Blood Pressure 123/71 113/54 O2 Sat by Pulse 96 Oximetry (%) 09/17/17 09/18/17 09/18/17 22:00 00:10 01:00 Temperature 98.3 F Pulse Rate 93 H Respiratory 20 Rate Blood Pressure 135/72 O2 Sat by Pulse 97 97 Oximetry (%) 09/18/17 09/18/17 09/18/17 06:11 09:00 09:39 Temperature 98.4 F Pulse Rate 90 95 H Respiratory 20 20 Rate Blood Pressure 122/77 O2 Sat by Pulse 95 Oximetry (%) 09/18/17 09/18/17 09/18/17 10:00 11:58 15:05 Temperature 98 F 97.9 F Pulse Rate 95 H 78 102 H Respiratory 20 20 Rate Blood Pressure 116/53 111/63 O2 Sat by Pulse 97 Oximetry (%) 09/18/17 16:07 Temperature Pulse Rate Respiratory Rate Blood Pressure O2 Sat by Pulse 97 Oximetry (%) Intake & Output 09/16/17 09/17/17 09/18/17 09/19/17 06:59 06:59 07:59 07:59 Intake Total 400 Output Total 250 Balance 150 Weight Constitutional: Yes: Well Nourished, No Distress, Calm Cardiovascular: Yes: Pulse Irregular (soft), S1, S2. No: JVD, Gallop, Murmur Respiratory: Yes: Regular, CTA Bilaterally. No: Accessory Muscle Use, Rales, Wheezes Extremities: No: Cold Edema:1+ Neurological: Yes: Alert, Oriented Psychiatric: No: Agitated Labs: CBC, BMP 09/18/17 06:00 09/18/17 06:00 Echo 08/28: TDS. nl LV size. prob nl LVSF. RV tds. valves TDS. Echo 07/2016: Nl lv/rv. 1+ AR mibi 12/2012: small posterior ischemia vs artifact, nl lvef, no tid cxr: incr markings diffusely, no infiltrate/effusions--no change vs prior EKG 09/09: afib; nonsp ST-Ts diffusely, slightly more pronounced than prior (prior tele: afib 100s) a/p: 72 yo male with h/o AFib s/p prior DCCV 12/2015 to SR on AC, HTN, HL, dchf , PVCs with palpitations, morbid obesity, LUCY on bipap, severe COPD, here with sob. hypotension, urosepsis: -urine growing E. coli (ESBL) -hemodynamics improving. still requiring IVF. -cont abx -no ischemic ecg changes, trop neg x 2 -holding CCB, BB, diuretics for now chronic diastolic chf: - 07/28 copd admit with marked pedal edema treated with lasix--d/c wt 314. sent out on lasix 40 po bid. - 08/28 admit with prolonged volume-up during last admit 08/28 (in setting of peristent rapid AF), requiring lasix 100 iv bid for diuresis. - new dry wt on last discharge 287 lbs (+signif muscle atrophy from prolonged bedbound state). - no accurate weight here yet (cannot stand) - discharged on torsemide 100 qd, holding currently for hypotension - 09/16 has been euvolemic off torsemide and with IVFm but today with worsened le edema. discussed with renal, will lower rate of IVF. - 09/18: now off IVF, still with residual LE edema, con't to monitor for need to resume diuretic paroxysmal AF/flutter: -on eliquis for AC -new dx 2015--recurred soon after initially successful DCCV plus amio then ( amio stopped given risks of pulm toxicity) -HR persistently rapid last admit 08/28 despite home regimen verapamil 240 bid plus digoxin continued--? was exacerbating refractory diast chf. -dig increased to 0.25 qd (level WNL), metoprolol 25mg qd added-->HR improved significantly -plan was to continue same meds and, if HR remains mostly <110-120 and no signf this was causing refractory/recurrent HF, would defer AVN ablation/PPM -presently, holding verapamil and metoprolol given hypotension, HR currently remains stable -HRs rapid overnight 09/10, did not receive digoxin yesterday. -09/11: HR currently controlled. dig level 1.3--cont same dose (0.25mg qd) given necessity for for AF control to minimize future CHF exacerbations -09/12: HR remains rapid at times, mostly acceptable tachy burden. continue digoxin. BP improving with tx of urosepsis. expect will be able to resume verapamil and metoprolol in 24-48 hrs - 09/13: HR remains rapid at times, mostly acceptable tachy burden. continue digoxin (will recheck level). -09/14-09/16: HR ok. Cont dig. Resume home verapamil and toprol once bp stable. Still running low and dependent on IVF today. - 09/18: bp trending up, trial of low dose verapamil copd: - ? end-stage copd at this point, freq admits - per pulm deconditioning, hypoalbuminemia: -nutrition per critical care hld: -continue home statin htn: -low bp's here, workup ongoing as above -holding meds as necessary - 09/18 trial of low dose verapamil tomorrow possible cad: -pt had borderline positive mibi in 2012 vs soft tissue attenuation artifact -never had angina sx's -ECG nonsp ST-T no signif change vs prior. trop neg x2. no anginal sx's -continue medical management with statin, AC without ASA
--- NOTE | 2017-09-18 18:43 | PN ---
Progress Note, Physician History of Present Illness: Pt seen and examined at bedside. He is awake and alert. He does have edema of his legs. - Current Medication List Current Medications: Active Medications Acetaminophen (Tylenol -) 650 mg PO Q6HPO PRN PRN Reason: PAIN OR FEVER Albuterol/Ipratropium (Duoneb -) 1 amp NEB RQID [facility] Last Admin: 09/18/17 16:06 Dose: 1 amp Amino Acids (Prosource No Carb Liquid Pkt) 30 ml PO BID@0800,1730 [facility] Last Admin: 09/18/17 17:11 Dose: 30 ml Apixaban (Eliquis -) 5 mg PO BID [facility] Last Admin: 09/18/17 09:39 Dose: 5 mg Atorvastatin Calcium (Lipitor -) 40 mg PO HS [facility] Last Admin: 09/17/17 22:04 Dose: 40 mg Budesonide/Formoterol Fumarate (Symbicort 160/4.5mcg -) 1 puff IH BID [facility] Last Admin: 09/18/17 09:42 Dose: 1 puff Clotrimazole (Lotrimin 1% Cream -) 1 applic TP DAILY [facility] Last Admin: 09/18/17 09:39 Dose: 1 applic Dexamethasone (Decadron -) 3 mg PO BID [facility] Dextrose (D50w (Vial) -) 25 gm IVPUSH PRN PRN PRN Reason: hypoglycemia Digoxin (Lanoxin -) 0.25 mg PO DAILY [facility] Last Admin: 09/18/17 09:39 Dose: 0.25 mg Ertapenem 1 gm/ Sodium (Chloride) 100 mls @ 200 mls/hr IVPB DAILY [facility] Last Admin: 09/18/17 10:31 Dose: 200 mls/hr Insulin Aspart (Novolog Vial Sliding Scale -) 1 vial SQ ACHS [facility] PRN Reason: Protocol Last Admin: 09/18/17 17:10 Dose: 6 unit Oxycodone HCl (Roxicodone -) 5 mg PO Q6H PRN PRN Reason: PAIN LEVEL 4 - 6 Last Admin: 09/17/17 00:57 Dose: 5 mg Polyethylene Glycol (Miralax (For Daily Use) -) 17 gm PO DAILY [facility] Last Admin: 09/18/17 09:43 Dose: Not Given Potassium Phos/Sodium Phos (Phos-Nak Packet -) 1 packet PO TID [facility] Stop: 09/19/17 14:01 Last Admin: 09/18/17 14:29 Dose: 1 packet Tamsulosin HCl (Flomax -) 0.4 mg PO DAILY@0900 [facility] Last Admin: 09/18/17 09:39 Dose: 0.4 mg - Objective Vital Signs: Vital Signs Temperature 97.6 F 09/18/17 17:43 Pulse Rate 98 H 09/18/17 17:43 Respiratory Rate 20 09/18/17 17:43 Blood Pressure 123/63 09/18/17 17:43 O2 Sat by Pulse Oximetry (%) 97 09/18/17 16:07 Constitutional: Yes: Calm Eyes: Yes: Conjunctiva Clear HENT: Yes: Atraumatic Neck: Yes: Supple Cardiovascular: Yes: S1, S2 Respiratory: Yes: On Nasal O2 Gastrointestinal: Yes: Soft, Abdomen, Obese Genitourinary: Yes: WNL Musculoskeletal: Yes: WNL Edema: Yes Edema: LLE: 1+, RLE: 1+ Neurological: Yes: Oriented Psychiatric: Yes: Oriented Labs: CBC, BMP 09/18/17 06:00 09/18/17 06:00 INR, PTT INR 1.34 (0.82-1.09) H 09/13/17 05:15 Problem List - Problems (1) CHF (congestive heart failure) Code(s): I50.9 - HEART FAILURE, UNSPECIFIED (2) COPD (chronic obstructive pulmonary disease) Code(s): J44.9 - CHRONIC OBSTRUCTIVE PULMONARY DISEASE, UNSPECIFIED (3) Hypotension Code(s): I95.9 - HYPOTENSION, UNSPECIFIED (4) Sepsis Code(s): A41.9 - SEPSIS, UNSPECIFIED ORGANISM Assessment/Plan Current Medications Generic Name Dose Route Start Last Admin Trade Name Freq PRN Reason Stop Dose Admin Acetaminophen 650 mg 09/15/17 13:14 Tylenol - PO Q6HPO PRN PAIN OR FEVER Albuterol/Ipratropium 1 amp 09/14/17 12:00 09/18/17 16:06 Duoneb - NEB 1 amp RQID [facility] Administration Amino Acids 30 ml 09/14/17 17:30 09/18/17 17:11 Prosource No Carb Liquid Pkt PO 30 ml BID@0800,1730 [facility] Administration Apixaban 5 mg 09/14/17 22:00 09/18/17 09:39 Eliquis - PO 5 mg BID [facility] Administration Atorvastatin Calcium 40 mg 09/14/17 22:00 09/17/17 22:04 Lipitor - PO 40 mg HS [facility]IND Administration Budesonide/Formoterol Fumarate 1 puff 09/14/17 14:00 09/18/17 09:42 Symbicort 160/4.5mcg - IH 1 puff BID [facility]IND Administration Clotrimazole 1 applic 09/15/17 10:00 09/18/17 09:39 Lotrimin 1% Cream - TP 1 applic DAILY [facility] Administration Dexamethasone 3 mg 09/18/17 22:00 Decadron - PO BID [facility] Dextrose 25 gm 09/14/17 11:36 D50w (Vial) - IVPUSH PRN PRN hypoglycemia Digoxin 0.25 mg 09/15/17 10:00 09/18/17 09:39 Lanoxin - PO 0.25 mg DAILY [facility] Administration Ertapenem 1 gm/ Sodium 100 mls @ 200 mls/hr 09/12/17 12:45 09/18/17 10:31 Chloride IVPB 200 mls/hr DAILY [facility] Administration Insulin Aspart 1 vial 09/14/17 16:30 09/18/17 17:10 Novolog Vial Sliding Scale - SQ 6 unit ACHS ARVIND Administration Protocol Oxycodone HCl 5 mg 09/15/17 13:13 09/17/17 00:57 Roxicodone - PO 5 mg Q6H PRN Administration PAIN LEVEL 4 - 6 Polyethylene Glycol 17 gm 09/13/17 10:45 09/18/17 09:43 Miralax (For Daily Use) - PO Not Given DAILY [facility] Potassium Phos/Sodium Phos 1 packet 09/17/17 22:00 09/18/17 14:29 Phos-Nak Packet - PO 09/19/17 14:01 1 packet TID [facility]IND Administration Tamsulosin HCl 0.4 mg 09/13/17 09:00 09/18/17 09:39 Flomax - PO 0.4 mg DAILY@0900 [facility] Administration Laboratory Tests 09/18/17 06:00 Phosphorus 2.3 L Impression 1. SHAKIR 2. CHF 3. obstructive sleep apnea 4. obesity 5. DM 6. HTN 7. hyperlipidemia 8. resp failure requiring bipap 9. sepsis 10. UTI Plan - will give a dose of lasix today - repeat labs in am - pt getting voiding trial - cont phos supplements Dr Aguilar
[2017-09-18] MEDS: FUROSEMIDE 40 MG TABLET (FP) PO SCH (19:54)
[2017-09-18] MEDS: ATORVASTATIN CA 40 MG TABLET (FP) PO SCH (21:36)
[2017-09-18] MEDS: DEXAMETHASONE 1.5 MG TABLET PO SCH (21:46)
--- NOTE | 2017-09-18 23:34 | PN ---
Progress Note, Physician Chief Complaint: difficulty urinating History of Present Illness: dm,htn,copd,adrenal deficiencey on hrt - Current Medication List Current Medications: Active Medications Acetaminophen (Tylenol -) 650 mg PO Q6HPO PRN PRN Reason: PAIN OR FEVER Albuterol/Ipratropium (Duoneb -) 1 amp NEB RQID [facility] Last Admin: 09/18/17 20:39 Dose: 1 amp Amino Acids (Prosource No Carb Liquid Pkt) 30 ml PO BID@0800,1730 [facility] Last Admin: 09/18/17 17:11 Dose: 30 ml Apixaban (Eliquis -) 5 mg PO BID [facility] Last Admin: 09/18/17 21:37 Dose: 5 mg Atorvastatin Calcium (Lipitor -) 40 mg PO HS [facility] Last Admin: 09/18/17 21:36 Dose: 40 mg Budesonide/Formoterol Fumarate (Symbicort 160/4.5mcg -) 1 puff IH BID [facility] Last Admin: 09/18/17 21:46 Dose: 1 puff Clotrimazole (Lotrimin 1% Cream -) 1 applic TP DAILY [facility] Last Admin: 09/18/17 09:39 Dose: 1 applic Dexamethasone (Decadron -) 3 mg PO BID [facility] Last Admin: 09/18/17 21:46 Dose: 3 mg Dextrose (D50w (Vial) -) 25 gm IVPUSH PRN PRN PRN Reason: hypoglycemia Digoxin (Lanoxin -) 0.25 mg PO DAILY [facility] Last Admin: 09/18/17 09:39 Dose: 0.25 mg Furosemide (Lasix -) 40 mg PO DAILY [facility] Last Admin: 09/18/17 19:54 Dose: 40 mg Ertapenem 1 gm/ Sodium (Chloride) 100 mls @ 200 mls/hr IVPB DAILY [facility] Last Admin: 09/18/17 10:31 Dose: 200 mls/hr Insulin Aspart (Novolog Vial Sliding Scale -) 1 vial SQ ACHS [facility] PRN Reason: Protocol Last Admin: 09/18/17 21:36 Dose: 4 unit Oxycodone HCl (Roxicodone -) 5 mg PO Q6H PRN PRN Reason: PAIN LEVEL 4 - 6 Last Admin: 09/17/17 00:57 Dose: 5 mg Polyethylene Glycol (Miralax (For Daily Use) -) 17 gm PO DAILY [facility] Last Admin: 09/18/17 09:43 Dose: Not Given Potassium Phos/Sodium Phos (Phos-Nak Packet -) 1 packet PO TID [facility] Stop: 09/19/17 14:01 Last Admin: 09/18/17 21:46 Dose: 1 packet Tamsulosin HCl (Flomax -) 0.4 mg PO DAILY@0900 [facility] Last Admin: 09/18/17 09:39 Dose: 0.4 mg - Objective Vital Signs: Vital Signs Temperature 97.6 F 09/18/17 17:43 Pulse Rate 98 H 09/18/17 17:43 Respiratory Rate 20 09/18/17 17:43 Blood Pressure 123/63 09/18/17 17:43 O2 Sat by Pulse Oximetry (%) 97 09/18/17 16:07 Constitutional: Yes: Well Nourished Eyes: Yes: EOM Intact HENT: Yes: Normocephalic Neck: Yes: Trachea Midline Cardiovascular: Yes: Regular Rate and Rhythm Respiratory: Yes: CTA Bilaterally Gastrointestinal: Yes: Normal Bowel Sounds ...Rectal Exam: Yes: Deferred Genitourinary: Yes: Bladder Distention, Incontinence Breast(s): Yes: WNL Musculoskeletal: Yes: Muscle Weakness Edema: Yes Integumentary: Yes: WNL Labs: CBC, BMP 09/18/17 06:00 09/18/17 06:00 INR, PTT INR 1.34 (0.82-1.09) H 09/13/17 05:15 Problem List - Problems (1) CHF (congestive heart failure) Code(s): I50.9 - HEART FAILURE, UNSPECIFIED (2) COPD (chronic obstructive pulmonary disease) Code(s): J44.9 - CHRONIC OBSTRUCTIVE PULMONARY DISEASE, UNSPECIFIED (3) Hypotension Code(s): I95.9 - HYPOTENSION, UNSPECIFIED (4) Infection due to ESBL-producing Escherichia coli Code(s): A49.8 - OTHER BACTERIAL INFECTIONS OF UNSPECIFIED SITE; Z16.12 - EXTENDED SPECTRUM BETA LACTAMASE (ESBL) RESISTANCE (5) Umbilical discharge Code(s): R19.8 - OTH SYMPTOMS AND SIGNS INVOLVING THE DGSTV SYS AND ABDOMEN (6) Primary adrenal deficiency Code(s): E27.1 - PRIMARY ADRENOCORTICAL INSUFFICIENCY (7) Sepsis Code(s): A41.9 - SEPSIS, UNSPECIFIED ORGANISM (8) UTI (urinary tract infection) Code(s): N39.0 - URINARY TRACT INFECTION, SITE NOT SPECIFIED Assessment/Plan Current Active Problems CHF (congestive heart failure) (Acute) COPD (chronic obstructive pulmonary disease) (Acute) Dehydration (Acute) Hypotension (Acute) Infection due to ESBL-producing Escherichia coli (Acute) Primary adrenal deficiency (Acute) Sepsis (Acute) UTI (urinary tract infection) (Acute) Umbilical discharge (Acute) Abnormal Lab Results 09/18/17 09/18/17 06:00 06:00 WBC 15.5 H RBC 3.38 L Hgb 10.2 L Hct 31.8 L RDW 23.4 H Lymphocytes % (Manual) 3.1 L D Myelocytes % (Man) 3 H Nucleated RBC % 4 H Chloride 108 H Anion Gap 7 L Creatinine 0.5 L Random Glucose 245 H Calcium 7.6 L Phosphorus 2.3 L Alkaline Phosphatase 120 H Total Protein 4.5 L Albumin 1.8 L Laboratory Results - last 24 hr 09/18/17 09/18/17 09/18/17 06:00 06:00 06:01 WBC 15.5 H RBC 3.38 L Hgb 10.2 L Hct 31.8 L MCV 93.9 MCH 30.2 MCHC 32.1 RDW 23.4 H Plt Count 361 MPV 7.7 Neutrophils % No Result Required. Neutrophils % (Manual) 81.6 Band Neutrophils % 4.1 Lymphocytes % No Result Required. Lymphocytes % (Manual) 3.1 L D Monocytes % (Manual) 5 Eosinophils % (Manual) 0.0 Basophils % (Manual) 0.0 Myelocytes % (Man) 3 H Promyelocytes % (Man) 0 Blast Cells % (Manual) 0 Nucleated RBC % 4 H Metamyelocytes 2 D Platelet Estimate Adequate Platelet Comment Few large plts Polychromasia 1+ Anisocytosis 2+ Shan Cells Few Sodium 142 Potassium 4.4 Chloride 108 H Carbon Dioxide 27 Anion Gap 7 L BUN 12 D Creatinine 0.5 L Creat Clearance w eGFR > 60 POC Glucometer 263 Random Glucose 245 H Calcium 7.6 L Phosphorus 2.3 L Total Bilirubin 0.7 AST 25 ALT 49 Alkaline Phosphatase 120 H Total Protein 4.5 L Albumin 1.8 L 09/18/17 11:10 WBC RBC Hgb Hct MCV MCH MCHC RDW Plt Count MPV Neutrophils % Neutrophils % (Manual) Band Neutrophils % Lymphocytes % Lymphocytes % (Manual) Monocytes % (Manual) Eosinophils % (Manual) Basophils % (Manual) Myelocytes % (Man) Promyelocytes % (Man) Blast Cells % (Manual) Nucleated RBC % Metamyelocytes Platelet Estimate Platelet Comment Polychromasia Anisocytosis Shan Cells Sodium Potassium Chloride Carbon Dioxide Anion Gap BUN Creatinine Creat Clearance w eGFR POC Glucometer 253 Random Glucose Calcium Phosphorus Total Bilirubin AST ALT Alkaline Phosphatase Total Protein Albumin plan: check cortisol pm on dexamethasone swith to prednisone 40mg daily taper dose every three days till 10mg daily
[2017-09-18] MEDS: oxyCODONE HCL 5 MG TABLET PO PRN (23:38)
[2017-09-19] MEDS: NAPH,MB-DB/K PH,MBDB POWDER PACKET PO SCH ×2 (06:45→13:41)
[2017-09-19] MEDS: INSULIN SLIDING SCALE (NOVOLOG) 1 VIAL SQ SCH ×4 (06:45→21:31)
[2017-09-19] MEDS ORDERED: INSULIN (NOVOLOG) ASPART 100 UNITS/ML 10ML VIAL ONE ×2 (06:50→21:00)
[2017-09-19] MEDS: ALBUTEROL SO4 2.5/IPRATROPIUM 0.5 INH SOL 3 ML VIAL.NEB. NEB SCH ×4 (07:20→20:16)
[2017-09-19 08:17] LABS: HEMATOCRIT 32.3 % (35.4-49); HEMOGLOBIN 10.2 GM/dL (11.7-16.9); MCH 29.6 pg (25.7-33.7); MCHC 31.5 g/dl (32.0-35.9); MEAN CELL VOLUME 93.9 fl (80-96); MEAN PLT VOLUME 7.8 fl (7.5-11.1); PLATELET COUNT 366 K/MM3 (134-434); RBC 3.44 M/mm3 (4.00-5.60); RDW 23.2 % (11.9-15.9); WHITE BLOOD COUNT 16.1 K/mm3 (4.0-10.0)
[2017-09-19 08:36] LABS: ALBUMIN 1.9 g/dl (3.4-5.0); ANION GAP 12 (8-16); BLOOD UREA NITROGEN 12 mg/dL (7-18); CALCIUM 7.9 mg/dL (8.5-10.1); CHLORIDE 105 mmol/L (98-107); CO2 28 mmol/L (21-32); GLUCOSE,RANDOM 241 mg/dL (74-106); POTASSIUM 4.4 mmol/L (3.5-5.1); SODIUM 145 mmol/L (136-145)
[2017-09-19 08:39] LABS: ALK PHOS 115 U/L (45-117); BILIRUBIN,TOTAL 0.6 mg/dL (0.2-1.0); CREATININE 0.6 mg/dL (0.7-1.3); SGOT/AST 29 U/L (15-37); SGPT/ALT 55 U/L (12-78); TOT PROT 4.7 g/dl (6.4-8.2)
[2017-09-19] MEDS: AMINO ACIDS/PROTEIN HYDROLYS 30 ML LIQUID.PKT PO SCH ×2 (08:46→17:12)
--- NOTE | 2017-09-19 09:19 | PN ---
Progress Note, Physician Chief Complaint: urosepsis History of Present Illness: denies cp. sob "not bad"-feels stable at baseline no palpitations no leg swelling - Current Medication List Current Medications: Active Medications Acetaminophen (Tylenol -) 650 mg PO Q6HPO PRN PRN Reason: PAIN OR FEVER Albuterol/Ipratropium (Duoneb -) 1 amp NEB RQID [facility] Last Admin: 09/19/17 07:20 Dose: 1 amp Amino Acids (Prosource No Carb Liquid Pkt) 30 ml PO BID@0800,1730 [facility] Last Admin: 09/19/17 08:46 Dose: 30 ml Apixaban (Eliquis -) 5 mg PO BID [facility] Last Admin: 09/18/17 21:37 Dose: 5 mg Atorvastatin Calcium (Lipitor -) 40 mg PO HS [facility] Last Admin: 09/18/17 21:36 Dose: 40 mg Budesonide/Formoterol Fumarate (Symbicort 160/4.5mcg -) 1 puff IH BID [facility] Last Admin: 09/18/17 21:46 Dose: 1 puff Clotrimazole (Lotrimin 1% Cream -) 1 applic TP DAILY [facility] Last Admin: 09/18/17 09:39 Dose: 1 applic Dexamethasone (Decadron -) 3 mg PO BID [facility] Last Admin: 09/18/17 21:46 Dose: 3 mg Dextrose (D50w (Vial) -) 25 gm IVPUSH PRN PRN PRN Reason: hypoglycemia Digoxin (Lanoxin -) 0.25 mg PO DAILY [facility] Last Admin: 09/18/17 09:39 Dose: 0.25 mg Furosemide (Lasix -) 40 mg PO DAILY [facility] Last Admin: 09/18/17 19:54 Dose: 40 mg Ertapenem 1 gm/ Sodium (Chloride) 100 mls @ 200 mls/hr IVPB DAILY [facility] Last Admin: 09/18/17 10:31 Dose: 200 mls/hr Insulin Aspart (Novolog Vial Sliding Scale -) 1 vial SQ ACHS [facility] PRN Reason: Protocol Last Admin: 09/19/17 06:45 Dose: 4 unit Oxycodone HCl (Roxicodone -) 5 mg PO Q6H PRN PRN Reason: PAIN LEVEL 4 - 6 Last Admin: 09/18/17 23:38 Dose: 5 mg Polyethylene Glycol (Miralax (For Daily Use) -) 17 gm PO DAILY [facility] Last Admin: 09/18/17 09:43 Dose: Not Given Potassium Phos/Sodium Phos (Phos-Nak Packet -) 1 packet PO TID [facility] Stop: 09/19/17 14:01 Last Admin: 09/19/17 06:45 Dose: 1 packet Tamsulosin HCl (Flomax -) 0.4 mg PO DAILY@0900 [facility] Last Admin: 09/18/17 09:39 Dose: 0.4 mg Verapamil HCl (Calan Sr -) 240 mg PO DAILY [facility] - Objective Vital Signs: Vital Signs Temperature 97.6 F 09/19/17 06:00 Pulse Rate 93 H 09/19/17 06:00 Respiratory Rate 20 09/19/17 06:00 Blood Pressure 119/70 09/19/17 06:00 O2 Sat by Pulse Oximetry (%) 94 L 09/19/17 06:29 Constitutional: Yes: No Distress, Calm, Obese Cardiovascular: Yes: Pulse Irregular (decr intensity heart sounds), S1, S2. No : Gallop, Murmur Respiratory: Yes: Regular, CTA Bilaterally. No: Accessory Muscle Use, Rales, Wheezes Extremities: No: Cold Edema: Yes (1-2+ pretib) Neurological: Yes: Alert, Oriented Psychiatric: No: Agitated Labs: CBC, BMP 09/19/17 06:00 09/19/17 06:00 INR, PTT INR 1.34 (0.82-1.09) H 09/13/17 05:15 Assessment/Plan Echo 08/28: TDS. nl LV size. prob nl LVSF. RV tds. valves TDS. Echo 07/2016: Nl lv/rv. 1+ AR mibi 12/2012: small posterior ischemia vs artifact, nl lvef, no tid cxr: incr markings diffusely, no infiltrate/effusions--no change vs prior EKG 09/09: afib; nonsp ST-Ts diffusely, slightly more pronounced than prior a/p: 72 yo male with h/o AFib s/p prior DCCV 12/2015 to SR on AC, HTN, HL, dchf , PVCs with palpitations, morbid obesity, LUCY on bipap, severe COPD, here with sob. urosepsis, hypotension: -urine growing E. coli (ESBL) -hemodynamics improving. still requiring IVF. -cont abx -no ischemic ecg changes, trop neg x 2 -CCB, BB, diuretics held on admit chronic diastolic chf: - 07/28 copd admit with marked pedal edema treated with lasix--d/c wt 314. sent out on lasix 40 po bid. - 08/28 admit with prolonged volume-up during last admit 08/28 (in setting of peristent rapid AF), requiring lasix 100 iv bid for diuresis. - new dry wt on last discharge 287 lbs (+signif muscle atrophy from prolonged bedbound state). - no accurate weight here yet (cannot stand) - home torsemide 100 qd held for hypotension - 09/16 has been euvolemic off torsemide and with IVF but today with worsened le edema. discussed with renal, will lower rate of IVF. - 09/19: developed LE edema, IVF stopped 1-2d ago. will start lower dose torsemide ppx against chf (40mg qd, was on 100 qd before)--monitor bp paroxysmal AF/flutter: -on eliquis for AC -new dx 2015--recurred soon after initially successful DCCV plus amio then ( amio stopped given risks of pulm toxicity) -HR persistently rapid last admit 08/28 despite home regimen verapamil 240 bid plus digoxin continued--? was exacerbating refractory diast chf. -dig increased to 0.25 qd (level WNL), metoprolol 25mg qd added-->HR improved significantly -plan was to continue same meds and, if HR remains mostly <110-120 and no signf this was causing refractory/recurrent HF, would defer AVN ablation/PPM -presently, holding verapamil and metoprolol given hypotension, HR currently remains stable -HRs have been controlled on digoxin alone (level ok). -09/19: if sbp consistently >110 tomorrow, resume verapamil (starting torsemide today) -will plan to resume home verapamil and toprol once bp consistently >110 (high risk of rapid AF precipitating acute diast chf here) copd: - ? end-stage copd at this point, freq admits - per pulm deconditioning, hypoalbuminemia: -nutrition per critical care hld: -continue home statin htn: -low bp's initially -meds as disc'd above possible cad: -pt had borderline positive mibi in 2013 vs soft tissue attenuation artifact -never had angina sx's -ECG nonsp ST-T no signif change vs prior. trop neg x2. no anginal sx's -continue medical management with statin, AC without ASA
[2017-09-19] MEDS ORDERED: PT OWN MED DRAWER 7, Y5N ONE ×2 (09:39→21:00)
[2017-09-19] MEDS: FUROSEMIDE 40 MG TABLET (FP) PO SCH (09:40)
[2017-09-19] MEDS: DIGOXIN 0.125 MG TABLET (FP) PO SCH (09:40)
[2017-09-19] MEDS: TAMSULOSIN HCL 0.4 MG CAP.ER.24H (FP) PO SCH (09:40)
[2017-09-19] MEDS: VERAPAMIL HCL 240 MG E.R. TABLET (FP) PO SCH (09:40)
[2017-09-19] MEDS: ERTAPENEM SODIUM 1 GM in SODIUM CHLORIDE 100 ML IVPB SCH (09:40)
[2017-09-19] MEDS: POLYETHYLENE GLYCOL 3350 119 GM BTL PO SCH (09:41)
[2017-09-19] MEDS: DEXAMETHASONE 1.5 MG TABLET PO SCH ×2 (09:41→21:30)
[2017-09-19] MEDS: APIXABAN 5 MG TABLET PO SCH ×2 (09:41→21:31)
[2017-09-19] MEDS: CLOTRIMAZOLE 1% CREAM 15 GM TUBE TP SCH (09:41)
[2017-09-19] MEDS: BUDESONIDE/FORMETEROL FUMARATE 160/4.5 mcg INHALER IH SCH ×2 (09:41→21:31)
[2017-09-19 10:25] LABS: MACROCYTOSIS 1+; OVALOCYTE 1+; PLATELET ESTIMATE NORMAL; TEAR DROP CELLS 1+
[2017-09-19 10:49] LABS: ANISOCYTOSIS 2+
--- NOTE | 2017-09-19 11:18 | PN ---
Progress Note, Physician Chief Complaint: Weakness, hypotension History of Present Illness: NAD, in bed on Nasal O2 BIPAP PRN -wants to get out of bed -noticed umbilical drainage, has umbilical hernia,says it's been draining for over a year -seen by GI surgery, no surgery recommended at this time. -seen by speech therapy, barium swallow done -recommended diabetic dysphagia whole + glucerna+ thin liquids -crush meds with apple sauce - Current Medication List Current Medications: Active Medications Acetaminophen (Tylenol -) 650 mg PO Q6HPO PRN PRN Reason: PAIN OR FEVER Albuterol/Ipratropium (Duoneb -) 1 amp NEB RQID [facility] Last Admin: 09/19/17 07:20 Dose: 1 amp Amino Acids (Prosource No Carb Liquid Pkt) 30 ml PO BID@0800,1730 [facility] Last Admin: 09/19/17 08:46 Dose: 30 ml Apixaban (Eliquis -) 5 mg PO BID [facility] Last Admin: 09/19/17 09:41 Dose: 5 mg Atorvastatin Calcium (Lipitor -) 40 mg PO HS [facility] Last Admin: 09/18/17 21:36 Dose: 40 mg Budesonide/Formoterol Fumarate (Symbicort 160/4.5mcg -) 1 puff IH BID [facility] Last Admin: 09/19/17 09:41 Dose: 1 puff Clotrimazole (Lotrimin 1% Cream -) 1 applic TP DAILY [facility] Last Admin: 09/19/17 09:41 Dose: 1 applic Dexamethasone (Decadron -) 3 mg PO BID [facility] Last Admin: 09/19/17 09:41 Dose: 3 mg Dextrose (D50w (Vial) -) 25 gm IVPUSH PRN PRN PRN Reason: hypoglycemia Digoxin (Lanoxin -) 0.25 mg PO DAILY [facility] Last Admin: 09/19/17 09:40 Dose: 0.25 mg Furosemide (Lasix -) 40 mg PO DAILY [facility] Last Admin: 09/19/17 09:40 Dose: 40 mg Ertapenem 1 gm/ Sodium (Chloride) 100 mls @ 200 mls/hr IVPB DAILY [facility] Last Admin: 09/19/17 09:40 Dose: 200 mls/hr Insulin Aspart (Novolog Vial Sliding Scale -) 1 vial SQ ACHS [facility] PRN Reason: Protocol Last Admin: 09/19/17 11:12 Dose: 4 unit Oxycodone HCl (Roxicodone -) 5 mg PO Q6H PRN PRN Reason: PAIN LEVEL 4 - 6 Last Admin: 09/18/17 23:38 Dose: 5 mg Polyethylene Glycol (Miralax (For Daily Use) -) 17 gm PO DAILY [facility] Last Admin: 09/19/17 09:41 Dose: Not Given Potassium Phos/Sodium Phos (Phos-Nak Packet -) 1 packet PO TID [facility] Stop: 09/19/17 14:01 Last Admin: 09/19/17 06:45 Dose: 1 packet Tamsulosin HCl (Flomax -) 0.4 mg PO DAILY@0900 [facility] Last Admin: 09/19/17 09:40 Dose: 0.4 mg Verapamil HCl (Calan Sr -) 240 mg PO DAILY [facility] Last Admin: 09/19/17 09:40 Dose: 240 mg - Objective Vital Signs: Vital Signs Temperature 97.6 F 09/19/17 06:00 Pulse Rate 84 09/19/17 09:40 Respiratory Rate 20 09/19/17 06:00 Blood Pressure 119/70 09/19/17 06:00 O2 Sat by Pulse Oximetry (%) 94 L 09/19/17 06:29 Constitutional: Yes: Well Nourished, No Distress Cardiovascular: Yes: Regular Rate and Rhythm Respiratory: Yes: Regular Gastrointestinal: Yes: Normal Bowel Sounds, Soft, Tenderness (Umbilical) Musculoskeletal: Yes: WNL Extremities: Yes: WNL Edema: No Peripheral Pulses WNL: Yes Neurological: Yes: Alert, Oriented Psychiatric: Yes: Alert, Oriented Labs: CBC, BMP 09/19/17 06:00 09/19/17 06:00 INR, PTT INR 1.34 (0.82-1.09) H 09/13/17 05:15 Problem List - Problems (1) Dehydration Assessment/Plan: -improved -nephrology consult -cardiology consult -BP meds restarted by Cardiology Code(s): E86.0 - DEHYDRATION (2) Atrial fibrillation Assessment/Plan: -chronic -On AC -cardiac monitoring Code(s): I48.91 - UNSPECIFIED ATRIAL FIBRILLATION Qualifiers: Atrial fibrillation type: chronic Qualified Code(s): I48.2 - Chronic atrial fibrillation (3) Diabetes mellitus Assessment/Plan: -insulin sliding scale -diabetic diet -endocrine consult Code(s): E11.9 - TYPE 2 DIABETES MELLITUS WITHOUT COMPLICATIONS Qualifiers: Diabetes mellitus type: type 2 (4) Umbilical discharge Assessment/Plan: Wound culture: Microbiology 09/11/17 15:50 Abdomen Gram Stain - Final 09/11/17 15:50 Abdomen Wound Culture - Preliminary Escherichia Coli Esbl Vice Admiral S Aureus Diphtheroid/Corynebacterium Group D Strep Or Entero Coccus 09/09/17 13:47 Blood - Peripheral Venous Blood Culture - Final NO GROWTH AFTER 5 DAYS INCUBATION 09/09/17 13:38 Blood - Peripheral Venous Blood Culture - Final NO GROWTH AFTER 5 DAYS INCUBATION 09/09/17 16:31 Urine - Urine Clean Catch Urine Culture - Final Escherichia Coli Esbl Vice Admiral -GI surgery consult Code(s): R19.8 - OTH SYMPTOMS AND SIGNS INVOLVING THE DGSTV SYS AND ABDOMEN (5) COPD (chronic obstructive pulmonary disease) Assessment/Plan: -BIPAP prn -end stage -Nasal o2 as needed -bronchodilators -Pulmonary consult appreciated Code(s): J44.9 - CHRONIC OBSTRUCTIVE PULMONARY DISEASE, UNSPECIFIED (6) Leukocytosis Assessment/Plan: -2/2 to IV steroids -afebrile -ID on board Code(s): D72.829 - ELEVATED WHITE BLOOD CELL COUNT, UNSPECIFIED Assessment/Plan see problem list
--- NOTE | 2017-09-19 11:54 | PN ---
Progress Note (short form) - Note Progress Note: Patient seen and examined in the ICU. Breathing feels stable. Feels generalized weakness and fatigue. Intake & Output 09/16/17 09/17/17 09/18/17 09/19/17 22:59 22:59 23:59 23:59 Intake Total 340 Output Total 250 Balance 90 Weight Last Vital Signs Temp Pulse Resp BP Pulse Ox 97.8 F 84 20 108/69 96 09/19/17 09:00 09/19/17 09:40 09/19/17 09:00 09/19/17 09:00 09/19/17 09:00 Active Medications Acetaminophen (Tylenol -) 650 mg PO Q6HPO PRN PRN Reason: PAIN OR FEVER Albuterol/Ipratropium (Duoneb -) 1 amp NEB RQID [facility] Last Admin: 09/19/17 11:32 Dose: 1 amp Amino Acids (Prosource No Carb Liquid Pkt) 30 ml PO BID@0800,1730 [facility] Last Admin: 09/19/17 08:46 Dose: 30 ml Apixaban (Eliquis -) 5 mg PO BID [facility] Last Admin: 09/19/17 09:41 Dose: 5 mg Atorvastatin Calcium (Lipitor -) 40 mg PO HS [facility] Last Admin: 09/18/17 21:36 Dose: 40 mg Budesonide/Formoterol Fumarate (Symbicort 160/4.5mcg -) 1 puff IH BID [facility] Last Admin: 09/19/17 09:41 Dose: 1 puff Clotrimazole (Lotrimin 1% Cream -) 1 applic TP DAILY [facility] Last Admin: 09/19/17 09:41 Dose: 1 applic Dexamethasone (Decadron -) 3 mg PO BID [facility] Last Admin: 09/19/17 09:41 Dose: 3 mg Dextrose (D50w (Vial) -) 25 gm IVPUSH PRN PRN PRN Reason: hypoglycemia Digoxin (Lanoxin -) 0.25 mg PO DAILY [facility] Last Admin: 09/19/17 09:40 Dose: 0.25 mg Ertapenem 1 gm/ Sodium (Chloride) 100 mls @ 200 mls/hr IVPB DAILY [facility] Last Admin: 09/19/17 09:40 Dose: 200 mls/hr Insulin Aspart (Novolog Vial Sliding Scale -) 1 vial SQ ACHS [facility] PRN Reason: Protocol Last Admin: 09/19/17 11:12 Dose: 4 unit Oxycodone HCl (Roxicodone -) 5 mg PO Q6H PRN PRN Reason: PAIN LEVEL 4 - 6 Last Admin: 09/18/17 23:38 Dose: 5 mg Polyethylene Glycol (Miralax (For Daily Use) -) 17 gm PO DAILY [facility] Last Admin: 09/19/17 09:41 Dose: Not Given Potassium Phos/Sodium Phos (Phos-Nak Packet -) 1 packet PO TID [facility] Stop: 09/19/17 14:01 Last Admin: 09/19/17 06:45 Dose: 1 packet Tamsulosin HCl (Flomax -) 0.4 mg PO DAILY@0900 [facility] Last Admin: 09/19/17 09:40 Dose: 0.4 mg Torsemide (Demadex -) 40 mg PO DAILY [facility] Verapamil HCl (Calan Sr -) 240 mg PO DAILY [facility] Last Admin: 09/19/17 09:40 Dose: 240 mg Gen: Awake and alert Heart: RRR Lung: distant breath sounds, no wheezes Abd: soft, nontender Ext: no edema Laboratory Results - last 24 hr 09/18/17 09/18/17 09/18/17 06:00 17:10 21:35 WBC RBC Hgb Hct MCV MCH MCHC RDW Plt Count MPV Neutrophils % Neutrophils % (Manual) Band Neutrophils % Lymphocytes % Lymphocytes % (Manual) Monocytes % (Manual) Eosinophils % (Manual) Basophils % (Manual) Myelocytes % (Man) Promyelocytes % (Man) Blast Cells % (Manual) Nucleated RBC % Metamyelocytes Hypochromia Platelet Estimate Adequate Platelet Comment Few large plts Polychromasia 1+ Poikilocytosis Anisocytosis 2+ Microcytosis Macrocytosis Tear Drop Cells Ovalocytes [place] Cells Few Sodium Potassium Chloride Carbon Dioxide Anion Gap BUN Creatinine Creat Clearance w eGFR POC Glucometer 268 232 Random Glucose Calcium Total Bilirubin AST ALT Alkaline Phosphatase Total Protein Albumin 09/19/17 09/19/17 09/19/17 06:00 06:00 06:44 WBC 16.1 H RBC 3.44 L Hgb 10.2 L Hct 32.3 L MCV 93.9 MCH 29.6 MCHC 31.5 L RDW 23.2 H Plt Count 366 MPV 7.8 Neutrophils % No Result Required. Neutrophils % (Manual) 85.6 H Band Neutrophils % 0.0 Lymphocytes % No Result Required. Lymphocytes % (Manual) 4.1 L D Monocytes % (Manual) 4 Eosinophils % (Manual) 0.0 Basophils % (Manual) 0.0 Myelocytes % (Man) 2 D Promyelocytes % (Man) 0 Blast Cells % (Manual) 0 Nucleated RBC % 0 Metamyelocytes 0 D Hypochromia 0 Platelet Estimate Normal Platelet Comment Polychromasia 1+ Poikilocytosis 0 Anisocytosis 2+ Microcytosis 0 Macrocytosis 1+ Tear Drop Cells 1+ Ovalocytes 1+ [place] Cells Sodium 145 Potassium 4.4 Chloride 105 Carbon Dioxide 28 Anion Gap 12 BUN 12 Creatinine 0.6 L Creat Clearance w eGFR > 60 POC Glucometer 235 Random Glucose 241 H Calcium 7.9 L Total Bilirubin 0.6 AST 29 ALT 55 Alkaline Phosphatase 115 Total Protein 4.7 L Albumin 1.9 L 09/19/17 11:11 WBC RBC Hgb Hct MCV MCH MCHC RDW Plt Count MPV Neutrophils % Neutrophils % (Manual) Band Neutrophils % Lymphocytes % Lymphocytes % (Manual) Monocytes % (Manual) Eosinophils % (Manual) Basophils % (Manual) Myelocytes % (Man) Promyelocytes % (Man) Blast Cells % (Manual) Nucleated RBC % Metamyelocytes Hypochromia Platelet Estimate Platelet Comment Polychromasia Poikilocytosis Anisocytosis Microcytosis Macrocytosis Tear Drop Cells Ovalocytes [place] Cells Sodium Potassium Chloride Carbon Dioxide Anion Gap BUN Creatinine Creat Clearance w eGFR POC Glucometer 221 Random Glucose Calcium Total Bilirubin AST ALT Alkaline Phosphatase Total Protein Albumin IMP: UTI Sepsis Lactic Acidosis resolved LV Diastolic Dysfunction COPD Morbid Obesity Obstructive Sleep Apnea Paroxysmal Atrial Fibrillation HTN Hyperlipidemia (?) Hypoadrenalism - ABX coverage - inhaled bronchodilators - O2 to keep SpO2 >90% - NIPPV to assist in work of breathing - rate control - continue anticoagulation Dr Emanuel
[2017-09-19] MEDS: TORSEMIDE 20 MG TABLET (FP) PO SCH (12:23)
--- NOTE | 2017-09-19 15:30 | PN ---
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 Tolerating diet better with no complaints. Enjoying the ice cream. No further f/u indicated.
[2017-09-19 15:55] LABS: URINE APPEARANCE CLEAR; URINE BILIRUBIN NEGATIVE (NEGATIVE); URINE BLOOD NEGATIVE (NEGATIVE); URINE COLOR STRAW; URINE GLUCOSE (UA) NEGATIVE (NEGATIVE); URINE KETONE NEGATIVE (NEGATIVE); URINE LEUK ESTERASE NEGATIVE (NEGATIVE); URINE NITRITE NEGATIVE (NEGATIVE); URINE PROTEIN NEGATIVE (NEGATIVE); URINE UROBILINOGEN NEGATIVE mg/dL (0.2-1.0)
--- NOTE | 2017-09-19 18:31 | PN ---
Progress Note, Physician History of Present Illness: Pt seen and examined at bedside. He is awake and alert. He denies shortness of breath. - Current Medication List Current Medications: Active Medications Acetaminophen (Tylenol -) 650 mg PO Q6HPO PRN PRN Reason: PAIN OR FEVER Albuterol/Ipratropium (Duoneb -) 1 amp NEB RQID [facility] Last Admin: 09/19/17 16:14 Dose: 1 amp Amino Acids (Prosource No Carb Liquid Pkt) 30 ml PO BID@0800,1730 [facility] Last Admin: 09/19/17 17:12 Dose: 30 ml Apixaban (Eliquis -) 5 mg PO BID [facility] Last Admin: 09/19/17 09:41 Dose: 5 mg Atorvastatin Calcium (Lipitor -) 40 mg PO HS [facility] Last Admin: 09/18/17 21:36 Dose: 40 mg Budesonide/Formoterol Fumarate (Symbicort 160/4.5mcg -) 1 puff IH BID [facility] Last Admin: 09/19/17 09:41 Dose: 1 puff Clotrimazole (Lotrimin 1% Cream -) 1 applic TP DAILY [facility] Last Admin: 09/19/17 09:41 Dose: 1 applic Dexamethasone (Decadron -) 3 mg PO BID [facility] Last Admin: 09/19/17 09:41 Dose: 3 mg Dextrose (D50w (Vial) -) 25 gm IVPUSH PRN PRN PRN Reason: hypoglycemia Digoxin (Lanoxin -) 0.25 mg PO DAILY [facility] Last Admin: 09/19/17 09:40 Dose: 0.25 mg Ertapenem 1 gm/ Sodium (Chloride) 100 mls @ 200 mls/hr IVPB DAILY [facility] Last Admin: 09/19/17 09:40 Dose: 200 mls/hr Insulin Aspart (Novolog Vial Sliding Scale -) 1 vial SQ ACHS [facility] PRN Reason: Protocol Last Admin: 09/19/17 16:35 Dose: 4 unit Oxycodone HCl (Roxicodone -) 5 mg PO Q6H PRN PRN Reason: PAIN LEVEL 4 - 6 Last Admin: 09/18/17 23:38 Dose: 5 mg Polyethylene Glycol (Miralax (For Daily Use) -) 17 gm PO DAILY [facility] Last Admin: 09/19/17 09:41 Dose: Not Given Tamsulosin HCl (Flomax -) 0.4 mg PO DAILY@0900 [facility] Last Admin: 09/19/17 09:40 Dose: 0.4 mg Torsemide (Demadex -) 40 mg PO DAILY [facility] Last Admin: 09/19/17 12:23 Dose: 40 mg Verapamil HCl (Calan Sr -) 240 mg PO DAILY [facility] Last Admin: 09/19/17 09:40 Dose: 240 mg - Objective Vital Signs: Vital Signs Temperature 97.9 F 09/19/17 16:59 Pulse Rate 98 H 09/19/17 16:59 Respiratory Rate 18 09/19/17 16:59 Blood Pressure 104/53 09/19/17 16:59 O2 Sat by Pulse Oximetry (%) 96 09/19/17 09:00 Constitutional: Yes: Calm Eyes: Yes: Conjunctiva Clear HENT: Yes: Atraumatic Cardiovascular: Yes: S1, S2 Respiratory: Yes: On Nasal O2 Gastrointestinal: Yes: Soft, Abdomen, Obese Genitourinary: Yes: WNL Musculoskeletal: Yes: WNL Edema: Yes Edema: LLE: 1+, RLE: 1+ Neurological: Yes: Oriented Psychiatric: Yes: Oriented Labs: CBC, BMP 09/19/17 06:00 09/19/17 06:00 INR, PTT INR 1.34 (0.82-1.09) H 09/13/17 05:15 Problem List - Problems (1) CHF (congestive heart failure) Code(s): I50.9 - HEART FAILURE, UNSPECIFIED (2) COPD (chronic obstructive pulmonary disease) Code(s): J44.9 - CHRONIC OBSTRUCTIVE PULMONARY DISEASE, UNSPECIFIED (3) Hypotension Code(s): I95.9 - HYPOTENSION, UNSPECIFIED (4) Sepsis Code(s): A41.9 - SEPSIS, UNSPECIFIED ORGANISM Assessment/Plan Current Medications Generic Name Dose Route Start Last Admin Trade Name Freq PRN Reason Stop Dose Admin Acetaminophen 650 mg 09/15/17 13:14 Tylenol - PO Q6HPO PRN PAIN OR FEVER Albuterol/Ipratropium 1 amp 09/14/17 12:00 09/19/17 16:14 Duoneb - NEB 1 amp RQID [facility] Administration Amino Acids 30 ml 09/14/17 17:30 09/19/17 17:12 Prosource No Carb Liquid Pkt PO 30 ml BID@0800,1730 [facility] Administration Apixaban 5 mg 09/14/17 22:00 09/19/17 09:41 Eliquis - PO 5 mg BID [facility] Administration Atorvastatin Calcium 40 mg 09/14/17 22:00 09/18/17 21:36 Lipitor - PO 40 mg HS [facility] Administration Budesonide/Formoterol Fumarate 1 puff 09/14/17 14:00 09/19/17 09:41 Symbicort 160/4.5mcg - IH 1 puff BID [facility] Administration Clotrimazole 1 applic 09/15/17 10:00 09/19/17 09:41 Lotrimin 1% Cream - TP 1 applic DAILY [facility] Administration Dexamethasone 3 mg 09/18/17 22:00 09/19/17 09:41 Decadron - PO 3 mg BID [facility] Administration Dextrose 25 gm 09/14/17 11:36 D50w (Vial) - IVPUSH PRN PRN hypoglycemia Digoxin 0.25 mg 09/15/17 10:00 09/19/17 09:40 Lanoxin - PO 0.25 mg DAILY [facility] Administration Ertapenem 1 gm/ Sodium 100 mls @ 200 mls/hr 09/12/17 12:45 09/19/17 09:40 Chloride IVPB 200 mls/hr DAILY [facility] Administration Insulin Aspart 1 vial 09/14/17 16:30 09/19/17 16:35 Novolog Vial Sliding Scale - SQ 4 unit ACHS [facility] Administration Protocol Oxycodone HCl 5 mg 09/15/17 13:13 09/18/17 23:38 Roxicodone - PO 5 mg Q6H PRN Administration PAIN LEVEL 4 - 6 Polyethylene Glycol 17 gm 09/13/17 10:45 09/19/17 09:41 Miralax (For Daily Use) - PO Not Given DAILY [facility] Tamsulosin HCl 0.4 mg 09/13/17 09:00 09/19/17 09:40 Flomax - PO 0.4 mg DAILY@0900 [facility] Administration Torsemide 40 mg 09/19/17 12:00 09/19/17 12:23 Demadex - PO 40 mg DAILY [facility] Administration Verapamil HCl 240 mg 09/19/17 10:00 09/19/17 09:40 Calan Sr - PO 240 mg DAILY [facility] Administration Impression 1. SHAKIR 2. CHF 3. obstructive sleep apnea 4. obesity 5. DM 6. HTN 7. hyperlipidemia 8. resp failure requiring bipap 9. sepsis 10. UTI Plan - cont torsemide - renal function is stable - pt is voiding - check phos level - bipap as needed Dr Aguilar
[2017-09-19] MEDS: ATORVASTATIN CA 40 MG TABLET (FP) PO SCH (21:30)
[2017-09-20] MEDS: INSULIN SLIDING SCALE (NOVOLOG) 1 VIAL SQ SCH ×3 (07:09→17:46)
[2017-09-20] MEDS ORDERED: INSULIN (NOVOLOG) ASPART 100 UNITS/ML 10ML VIAL ONE ×2 (07:14→13:25)
[2017-09-20] MEDS ORDERED: PT OWN MED DRAWER 7, Y5N ONE ×2 (07:15→10:38)
[2017-09-20] MEDS: ALBUTEROL SO4 2.5/IPRATROPIUM 0.5 INH SOL 3 ML VIAL.NEB. NEB SCH ×3 (08:18→16:40)
[2017-09-20] MEDS: AMINO ACIDS/PROTEIN HYDROLYS 30 ML LIQUID.PKT PO SCH (10:42)
[2017-09-20] MEDS: TORSEMIDE 20 MG TABLET (FP) PO SCH ×3 (10:46→11:07)
[2017-09-20] MEDS: TAMSULOSIN HCL 0.4 MG CAP.ER.24H (FP) PO SCH (10:46)
[2017-09-20] MEDS: DIGOXIN 0.125 MG TABLET (FP) PO SCH (10:46)
[2017-09-20] MEDS: DEXAMETHASONE 1.5 MG TABLET PO SCH (10:47)
[2017-09-20] MEDS: APIXABAN 5 MG TABLET PO SCH (10:47)
[2017-09-20] MEDS: VERAPAMIL HCL 240 MG E.R. TABLET (FP) PO SCH ×2 (10:48→10:58)
[2017-09-20] MEDS: BUDESONIDE/FORMETEROL FUMARATE 160/4.5 mcg INHALER IH SCH (10:49)
[2017-09-20] MEDS: POLYETHYLENE GLYCOL 3350 119 GM BTL PO SCH (10:49)
[2017-09-20] MEDS: CLOTRIMAZOLE 1% CREAM 15 GM TUBE TP SCH (10:50)
--- NOTE | 2017-09-20 11:02 | PN ---
Progress Note, Physician Chief Complaint: Weakness, hypotension History of Present Illness: NAD, in bed on Nasal O2 BIPAP PRN -wants to get out of bed -noticed umbilical drainage, has umbilical hernia,says it's been draining for over a year -seen by GI surgery, no surgery recommended at this time. -seen by speech therapy, barium swallow done -recommended diabetic dysphagia whole + glucerna+ thin liquids -crush meds with apple sauce - Current Medication List Current Medications: Active Medications Acetaminophen (Tylenol -) 650 mg PO Q6HPO PRN PRN Reason: PAIN OR FEVER Albuterol/Ipratropium (Duoneb -) 1 amp NEB RQID [facility] Last Admin: 09/20/17 08:18 Dose: 1 amp Amino Acids (Prosource No Carb Liquid Pkt) 30 ml PO BID@0800,1730 [facility] Last Admin: 09/20/17 10:42 Dose: Not Given Apixaban (Eliquis -) 5 mg PO BID [facility] Last Admin: 09/20/17 10:47 Dose: 5 mg Atorvastatin Calcium (Lipitor -) 40 mg PO HS [facility] Last Admin: 09/19/17 21:30 Dose: 40 mg Budesonide/Formoterol Fumarate (Symbicort 160/4.5mcg -) 1 puff IH BID [facility] Last Admin: 09/20/17 10:49 Dose: 1 puff Clotrimazole (Lotrimin 1% Cream -) 1 applic TP DAILY [facility] Last Admin: 09/20/17 10:50 Dose: Not Given Dexamethasone (Decadron -) 3 mg PO BID [facility] Last Admin: 09/20/17 10:47 Dose: 3 mg Dextrose (D50w (Vial) -) 25 gm IVPUSH PRN PRN PRN Reason: hypoglycemia Digoxin (Lanoxin -) 0.25 mg PO DAILY [facility] Last Admin: 09/20/17 10:46 Dose: 0.25 mg Ertapenem 1 gm/ Sodium (Chloride) 100 mls @ 200 mls/hr IVPB DAILY [facility] Last Admin: 09/19/17 09:40 Dose: 200 mls/hr Insulin Aspart (Novolog Vial Sliding Scale -) 1 vial SQ ACHS [facility] PRN Reason: Protocol Last Admin: 09/20/17 07:09 Dose: 4 unit Oxycodone HCl (Roxicodone -) 5 mg PO Q6H PRN PRN Reason: PAIN LEVEL 4 - 6 Last Admin: 09/18/17 23:38 Dose: 5 mg Polyethylene Glycol (Miralax (For Daily Use) -) 17 gm PO DAILY [facility] Last Admin: 09/20/17 10:49 Dose: Not Given Tamsulosin HCl (Flomax -) 0.4 mg PO DAILY@0900 [facility] Last Admin: 09/20/17 10:46 Dose: 0.4 mg Torsemide (Demadex -) 40 mg PO DAILY [facility] Last Admin: 09/20/17 10:59 Dose: Not Given Verapamil HCl (Calan Sr -) 240 mg PO DAILY [facility] Last Admin: 09/20/17 10:58 Dose: Not Given - Objective Vital Signs: Vital Signs Temperature 98.4 F 09/20/17 04:00 Pulse Rate 80 09/20/17 10:46 Respiratory Rate 20 09/20/17 04:00 Blood Pressure 131/75 09/20/17 04:00 O2 Sat by Pulse Oximetry (%) 97 09/19/17 21:00 Constitutional: Yes: Well Nourished, No Distress, Calm Cardiovascular: Yes: Regular Rate and Rhythm Respiratory: Yes: Regular Gastrointestinal: Yes: Normal Bowel Sounds, Soft, Hernia (draining) Musculoskeletal: Yes: WNL Extremities: Yes: WNL Edema: No Peripheral Pulses WNL: Yes Labs: CBC, BMP 09/19/17 06:00 09/19/17 06:00 INR, PTT INR 1.34 (0.82-1.09) H 09/13/17 05:15 Problem List - Problems (1) Dehydration Code(s): E86.0 - DEHYDRATION (2) Atrial fibrillation Code(s): I48.91 - UNSPECIFIED ATRIAL FIBRILLATION Qualifiers: Atrial fibrillation type: chronic Qualified Code(s): I48.2 - Chronic atrial fibrillation (3) Diabetes mellitus Code(s): E11.9 - TYPE 2 DIABETES MELLITUS WITHOUT COMPLICATIONS Qualifiers: Diabetes mellitus type: type 2 (4) Umbilical discharge Code(s): R19.8 - OTH SYMPTOMS AND SIGNS INVOLVING THE DGSTV SYS AND ABDOMEN (5) COPD (chronic obstructive pulmonary disease) Code(s): J44.9 - CHRONIC OBSTRUCTIVE PULMONARY DISEASE, UNSPECIFIED (6) Leukocytosis Code(s): D72.829 - ELEVATED WHITE BLOOD CELL COUNT, UNSPECIFIED
[2017-09-20] MEDS: ERTAPENEM SODIUM 1 GM in SODIUM CHLORIDE 100 ML IVPB SCH (12:44)
--- NOTE | 2017-09-20 12:54 | PN ---
Progress Note (short form) - Note Progress Note: Chief Complaint: urosepsis History of Present Illness: denies cp. sob "not bad"-feels stable at baseline no palpitations no leg swelling Current Medications Acetaminophen (Tylenol -) 650 mg PO Q6HPO PRN PRN Reason: PAIN OR FEVER Albuterol/Ipratropium (Duoneb -) 1 amp NEB RQID [facility] Last Admin: 09/20/17 11:26 Dose: 1 amp Amino Acids (Prosource No Carb Liquid Pkt) 30 ml PO BID@0800,1730 [facility] Last Admin: 09/20/17 10:42 Dose: Not Given Apixaban (Eliquis -) 5 mg PO BID [facility] Last Admin: 09/20/17 10:47 Dose: 5 mg Atorvastatin Calcium (Lipitor -) 40 mg PO HS [facility] Last Admin: 09/19/17 21:30 Dose: 40 mg Budesonide/Formoterol Fumarate (Symbicort 160/4.5mcg -) 1 puff IH BID [facility] Last Admin: 09/20/17 10:49 Dose: 1 puff Clotrimazole (Lotrimin 1% Cream -) 1 applic TP DAILY [facility] Last Admin: 09/20/17 10:50 Dose: Not Given Dexamethasone (Decadron -) 3 mg PO BID [facility] Last Admin: 09/20/17 10:47 Dose: 3 mg Dextrose (D50w (Vial) -) 25 gm IVPUSH PRN PRN PRN Reason: hypoglycemia Digoxin (Lanoxin -) 0.25 mg PO DAILY [facility] Last Admin: 09/20/17 10:46 Dose: 0.25 mg Insulin Aspart (Novolog Vial Sliding Scale -) 1 vial SQ ACHS [facility] PRN Reason: Protocol Last Admin: 09/20/17 07:09 Dose: 4 unit Oxycodone HCl (Roxicodone -) 5 mg PO Q6H PRN PRN Reason: PAIN LEVEL 4 - 6 Last Admin: 09/18/17 23:38 Dose: 5 mg Polyethylene Glycol (Miralax (For Daily Use) -) 17 gm PO DAILY [facility] Last Admin: 09/20/17 10:49 Dose: Not Given Tamsulosin HCl (Flomax -) 0.4 mg PO DAILY@0900 [facility] Last Admin: 09/20/17 10:46 Dose: 0.4 mg Torsemide (Demadex -) 40 mg PO DAILY [facility] Last Admin: 09/20/17 11:07 Dose: 40 mg Verapamil HCl (Calan Sr -) 240 mg PO DAILY [facility] Last Admin: 09/20/17 10:58 Dose: Not Given - Objective Vital Signs: Vital Signs - 24 hr 09/19/17 09/19/17 09/19/17 13:28 16:59 20:00 Temperature 97.9 F 97.9 F 97.6 F Pulse Rate 96 H 98 H 95 H Respiratory 18 18 20 Rate Blood Pressure 93/42 104/53 114/68 O2 Sat by Pulse Oximetry (%) 09/19/17 09/20/17 09/20/17 21:00 04:00 10:46 Temperature 98.4 F Pulse Rate 91 H 80 Respiratory 20 Rate Blood Pressure 131/75 O2 Sat by Pulse 97 Oximetry (%) 09/20/17 11:03 Temperature 97.7 F Pulse Rate 88 Respiratory 18 Rate Blood Pressure 99/47 O2 Sat by Pulse Oximetry (%) Intake & Output 09/18/17 09/19/17 09/20/17 09/21/17 07:59 07:59 07:59 07:59 Intake Total 500 540 150 Output Total 475 1000 Balance 25 -460 150 Weight Constitutional: Yes: No Distress, Calm, Obese Cardiovascular: Yes: Pulse Irregular (decr intensity heart sounds), S1, S2. No : Gallop, Murmur Respiratory: Yes: Regular, CTA Bilaterally. No: Accessory Muscle Use, Rales, Wheezes Extremities: No: Cold Edema: Yes (1-2+ pretib) Neurological: Yes: Alert, Oriented Psychiatric: No: Agitated Labs: no CBC, BMP today 09/19/17 06:00 09/19/17 06:00 Assessment/Plan Echo 08/28: TDS. nl LV size. prob nl LVSF. RV tds. valves TDS. Echo 07/2016: Nl lv/rv. 1+ AR mibi 12/2012: small posterior ischemia vs artifact, nl lvef, no tid cxr: incr markings diffusely, no infiltrate/effusions--no change vs prior EKG 09/09: afib; nonsp ST-Ts diffusely, slightly more pronounced than prior a/p: 72 yo male with h/o AFib s/p prior DCCV 12/2015 to SR on AC, HTN, HL, dchf , PVCs with palpitations, morbid obesity, LUCY on bipap, severe COPD, here with sob. urosepsis, hypotension: -urine growing E. coli (ESBL) -hemodynamics improving. still requiring IVF. -cont abx -no ischemic ecg changes, trop neg x 2 -CCB, BB, diuretics held on admit chronic diastolic chf: - 07/28 copd admit with marked pedal edema treated with lasix--d/c wt 314. sent out on lasix 40 po bid. - 08/28 admit with prolonged volume-up during last admit 08/28 (in setting of peristent rapid AF), requiring lasix 100 iv bid for diuresis. - new dry wt on last discharge 287 lbs (+signif muscle atrophy from prolonged bedbound state). - no accurate weight here yet (cannot stand) - home torsemide 100 qd held for hypotension - 09/16 has been euvolemic off torsemide and with IVF but today with worsened le edema. discussed with renal, will lower rate of IVF. - 09/19: developed LE edema, IVF stopped 1-2d ago. will start lower dose torsemide ppx against chf (40mg qd, was on 100 qd before)--monitor bp paroxysmal AF/flutter: -on eliquis for AC -new dx 2015--recurred soon after initially successful DCCV plus amio then ( amio stopped given risks of pulm toxicity) -HR persistently rapid last admit 08/28 despite home regimen verapamil 240 bid plus digoxin continued--? was exacerbating refractory diast chf. -dig increased to 0.25 qd (level WNL), metoprolol 25mg qd added-->HR improved significantly -plan was to continue same meds and, if HR remains mostly <110-120 and no signf this was causing refractory/recurrent HF, would defer AVN ablation/PPM -presently, holding verapamil and metoprolol given hypotension, HR currently remains stable -HRs have been controlled on digoxin alone (level ok). -09/19: if sbp consistently >110 tomorrow, resume verapamil (starting torsemide today) -will plan to resume home verapamil and toprol once bp consistently >110 (high risk of rapid AF precipitating acute diast chf here) copd: - ? end-stage copd at this point, freq admits - per pulm deconditioning, hypoalbuminemia: -nutrition per critical care hld: -continue home statin htn: -low bp's initially -meds as disc'd above possible cad: -pt had borderline positive mibi in 2013 vs soft tissue attenuation artifact -never had angina sx's -ECG nonsp ST-T no signif change vs prior. trop neg x2. no anginal sx's -continue medical management with statin, AC without ASA
--- NOTE | 2017-09-20 14:27 | PN ---
Progress Note (short form) - Note Progress Note: Patient seen and examined in the ICU. Breathing feels stable. Feels generalized weakness and fatigue. Intake & Output 09/17/17 09/18/17 09/19/17 09/20/17 22:59 23:59 23:59 23:59 Intake Total 440 350 Output Total 1050 50 Balance -610 300 Weight Last Vital Signs Temp Pulse Resp BP Pulse Ox 97.7 F 88 18 99/47 97 09/20/17 11:03 09/20/17 11:03 09/20/17 11:03 09/20/17 11:03 09/19/17 21:00 Active Medications Acetaminophen (Tylenol -) 650 mg PO Q6HPO PRN PRN Reason: PAIN OR FEVER Albuterol/Ipratropium (Duoneb -) 1 amp NEB RQID [facility] Last Admin: 09/20/17 11:26 Dose: 1 amp Amino Acids (Prosource No Carb Liquid Pkt) 30 ml PO BID@0800,1730 [facility] Last Admin: 09/20/17 10:42 Dose: Not Given Apixaban (Eliquis -) 5 mg PO BID [facility] Last Admin: 09/20/17 10:47 Dose: 5 mg Atorvastatin Calcium (Lipitor -) 40 mg PO HS [facility] Last Admin: 09/19/17 21:30 Dose: 40 mg Budesonide/Formoterol Fumarate (Symbicort 160/4.5mcg -) 1 puff IH BID [facility] Last Admin: 09/20/17 10:49 Dose: 1 puff Clotrimazole (Lotrimin 1% Cream -) 1 applic TP DAILY [facility] Last Admin: 09/20/17 10:50 Dose: Not Given Dextrose (D50w (Vial) -) 25 gm IVPUSH PRN PRN PRN Reason: hypoglycemia Digoxin (Lanoxin -) 0.25 mg PO DAILY [facility] Last Admin: 09/20/17 10:46 Dose: 0.25 mg Insulin Aspart (Novolog Vial Sliding Scale -) 1 vial SQ ACHS [facility] PRN Reason: Protocol Last Admin: 09/20/17 13:28 Dose: 4 unit Oxycodone HCl (Roxicodone -) 5 mg PO Q6H PRN PRN Reason: PAIN LEVEL 4 - 6 Last Admin: 09/18/17 23:38 Dose: 5 mg Polyethylene Glycol (Miralax (For Daily Use) -) 17 gm PO DAILY [facility] Last Admin: 09/20/17 10:49 Dose: Not Given Prednisone (Deltasone -) 40 mg PO DAILY [facility] Tamsulosin HCl (Flomax -) 0.4 mg PO DAILY@0900 [facility] Last Admin: 09/20/17 10:46 Dose: 0.4 mg Torsemide (Demadex -) 40 mg PO DAILY [facility] Last Admin: 09/20/17 11:07 Dose: 40 mg Verapamil HCl (Calan Sr -) 240 mg PO DAILY [facility] Last Admin: 09/20/17 10:58 Dose: Not Given Gen: Awake and alert Heart: RRR Lung: distant breath sounds, no wheezes Abd: soft, nontender Ext: no edema Laboratory Results - last 24 hr 09/19/17 09/19/17 09/19/17 06:00 15:00 16:35 POC Glucometer 219 Cortisol AM Sample 0.5 Urine Color Straw Urine Appearance Clear Urine pH 5.[address] 1.008 Urine Protein Negative Urine Glucose (UA) Negative Urine Ketones Negative Urine Blood Negative Urine Nitrite Negative Urine Bilirubin Negative Urine Urobilinogen Negative Ur Leukocyte Esterase Negative 09/19/17 09/20/17 21:28 13:11 POC Glucometer 203 219 Cortisol AM Sample Urine Color Urine Appearance Urine pH Ur Specific [address] Urine Protein Urine Glucose (UA) Urine Ketones Urine Blood Urine Nitrite Urine Bilirubin Urine Urobilinogen Ur Leukocyte Esterase IMP: UTI Sepsis Lactic Acidosis resolved LV Diastolic Dysfunction COPD Morbid Obesity Obstructive Sleep Apnea Paroxysmal Atrial Fibrillation HTN Hyperlipidemia (?) Hypoadrenalism - ABX coverage - inhaled bronchodilators - O2 to keep SpO2 >90% - NIPPV to assist in work of breathing - rate control - continue anticoagulation Dr Emanuel
[2017-09-20] MEDS ORDERED: FINASTERIDE 5 MG TABLET (FP) PO SCH (16:00)
--- NOTE | 2017-09-20 16:21 | DS ---
Physical Examination Vital Signs: Vital Signs Temperature 97.3 F L 09/20/17 15:20 Pulse Rate 105 H 09/20/17 15:20 Respiratory Rate 20 09/20/17 15:20 Blood Pressure 124/67 09/20/17 15:20 O2 Sat by Pulse Oximetry (%) 96 09/20/17 09:00 Constitutional: Yes: Well Nourished, No Distress, Calm Cardiovascular: Yes: Regular Rate and Rhythm Respiratory: Yes: Regular Gastrointestinal: Yes: Normal Bowel Sounds, Soft, Abdomen, Obese, Hernia Renal/: Yes: WNL Musculoskeletal: Yes: WNL Extremities: Yes: WNL Edema: No Peripheral Pulses WNL: Yes Neurological: Yes: Alert, Oriented Psychiatric: Yes: Alert, Oriented Labs: CBC, BMP 09/19/17 06:00 09/19/17 06:00 Discharge Summary Reason For Visit: DEHYDRATION Current Active Problems CHF (congestive heart failure) (Acute) COPD (chronic obstructive pulmonary disease) (Acute) Dehydration (Acute) Hypotension (Acute) Infection due to ESBL-producing Escherichia coli (Acute) Primary adrenal deficiency (Acute) Sepsis (Acute) UTI (urinary tract infection) (Acute) Umbilical discharge (Acute) Hospital Course: Patient is a 72M pulmonary hypertension, CHF, COPD, GERD, kidney failure, D2M, HLD, aFib here today complaining of altered mental status. long term paper work states that the patient was found with a decreased level of consciousness. Paperwork described patient as lethargic, but still responsive to name, tactile , and painful. Glucose was 73. Patient denies any complaints at this time. Patient denies chest pain, shortness of breath, abdominal pain, headache. He endorses a baseline shortness of breath. He does state that he has not been eating as much, but denies nausea, vomiting, fevers and chills. Pt to be discharged with villareal in place. Condition: Stable - Instructions Diet, Activity, Other Instructions: -Follow up with Urology Dr Tammy Uribe outpatient within 2 weeks -Follow up with Endocrinology, Dr Ward within 2 weeks. -CBC/CMP in 1 week Referrals: Nikhil Munoz MD [Staff Physician] - Chico Ward MD [Staff Physician] - Mars Brothers MD [Primary Care Provider] - Disposition: [facility] - Home Medications Comprehensive Discharge Medication List: Ambulatory Orders Acetaminophen 650 mg PO Q6H 09/09/17 Albuterol 2.5/Ipratropium 0.5 [Duoneb -] 1 neb IH QID 09/09/17 Apixaban [Eliquis -] 5 mg PO DAILY 09/09/17 Atorvastatin Ca [Lipitor] 40 mg PO HS 09/09/17 Clotrimazole 15 gm TP DAILY 09/09/17 Fluticasone/Vilanterol [Breo Ellipta 200-25 Mcg INH] 1 each IH DAILY 09/09/17 Glimepiride [Amaryl] 2 mg PO AM 09/09/17 Insulin (Levemir) [Levemir Vial] 30 units SQ BID 09/09/17 Lanolin Alcohol/Mo/W.pet/[place] [Eucerin Creme] 113 gm TP DAILY 09/09/17 Lidocaine 2% Viscous Oral [Xylocaine 2% Viscous Oral -] 15 ml PO TID 09/09/17 Povidone-Iodine [Betadine] 1 each TP DAILY 09/09/17 Tamsulosin HCl [Flomax] 0.4 mg PO DAILY 09/09/17 Torsemide 100 mg PO DAILY 09/09/17 Verapamil HCl [Calan Sr] 240 mg PO DAILY 09/09/17 predniSONE [Deltasone -] 5 mg PO DAILY 09/09/17 Amino Acids/Protein Hydrolys [Prosource No Carb Liquid Pkt] 30 ml PO BID@0800, 1730 packet 09/20/17 Budesonide/Formeterol Fumarate [SYMBICORT 160/4.5mcg -] 1 puff IH BID inhaler 09/20/17 Digoxin [Lanoxin -] 0.25 mg PO DAILY tablet 09/20/17 Finasteride [Proscar] 5 mg PO DAILY #30 tablet 09/20/17 Furosemide [Lasix -] 40 mg PO DAILY tablet 09/20/17 Insulin Sliding Scale [Novolog Vial Sliding Scale -] 1 vial SQ ACHS units 09/20 Naph,Mb-Db/K pH,Mbdb [PHOS-NaK PACKET -] 1 packet PO TID pow 09/20/17 Polyethylene Glycol 3350 [Miralax 119 gm Btl -] 17 gm PO DAILY bottle 09/20/17 Tamsulosin HCl [Flomax -] 0.8 mg PO DAILY@0900 cap.er.24h 09/20/17 Torsemide [Demadex -] 40 mg PO DAILY tablet 09/20/17 Verapamil HCl ER [Calan Sr -] 240 mg PO DAILY tablet.er 09/20/17 oxyCODONE HCL [Roxicodone -] 5 mg PO Q6H PRN tablet MDD 4 09/20/17 predniSONE [Deltasone -] 40 mg PO DAILY tablet 09/20/17
--- NOTE | 2017-09-20 16:44 | PN ---
Progress Note, Physician History of Present Illness: Pt seen and examined at bedside. Mathews has been re-inserted. - Current Medication List Current Medications: Active Medications Acetaminophen (Tylenol -) 650 mg PO Q6HPO PRN PRN Reason: PAIN OR FEVER Albuterol/Ipratropium (Duoneb -) 1 amp NEB RQID [facility] Last Admin: 09/20/17 11:26 Dose: 1 amp Amino Acids (Prosource No Carb Liquid Pkt) 30 ml PO BID@0800,1730 [facility] Last Admin: 09/20/17 10:42 Dose: Not Given Apixaban (Eliquis -) 5 mg PO BID [facility] Last Admin: 09/20/17 10:47 Dose: 5 mg Atorvastatin Calcium (Lipitor -) 40 mg PO HS [facility] Last Admin: 09/19/17 21:30 Dose: 40 mg Budesonide/Formoterol Fumarate (Symbicort 160/4.5mcg -) 1 puff IH BID [facility] Last Admin: 09/20/17 10:49 Dose: 1 puff Clotrimazole (Lotrimin 1% Cream -) 1 applic TP DAILY [facility] Last Admin: 09/20/17 10:50 Dose: Not Given Dextrose (D50w (Vial) -) 25 gm IVPUSH PRN PRN PRN Reason: hypoglycemia Digoxin (Lanoxin -) 0.25 mg PO DAILY [facility] Last Admin: 09/20/17 10:46 Dose: 0.25 mg Finasteride (Proscar -) 5 mg PO DAILY [facility] Insulin Aspart (Novolog Vial Sliding Scale -) 1 vial SQ ACHS [facility] PRN Reason: Protocol Last Admin: 09/20/17 13:28 Dose: 4 unit Oxycodone HCl (Roxicodone -) 5 mg PO Q6H PRN PRN Reason: PAIN LEVEL 4 - 6 Last Admin: 09/18/17 23:38 Dose: 5 mg Polyethylene Glycol (Miralax (For Daily Use) -) 17 gm PO DAILY [facility] Last Admin: 09/20/17 10:49 Dose: Not Given Prednisone (Deltasone -) 40 mg PO DAILY [facility] Tamsulosin HCl (Flomax -) 0.8 mg PO DAILY@0900 [facility] Torsemide (Demadex -) 40 mg PO DAILY [facility] Last Admin: 09/20/17 11:07 Dose: 40 mg Verapamil HCl (Calan Sr -) 240 mg PO DAILY [facility] Last Admin: 09/20/17 10:58 Dose: Not Given - Objective Vital Signs: Vital Signs Temperature 97.3 F L 09/20/17 15:20 Pulse Rate 105 H 09/20/17 15:20 Respiratory Rate 20 09/20/17 15:20 Blood Pressure 124/67 09/20/17 15:20 O2 Sat by Pulse Oximetry (%) 96 09/20/17 09:00 Constitutional: Yes: Calm Eyes: Yes: Conjunctiva Clear Cardiovascular: Yes: S1, S2 Respiratory: Yes: CTA Bilaterally, On Nasal O2 Gastrointestinal: Yes: Soft, Abdomen, Obese Genitourinary: Yes: Mathews Present Musculoskeletal: Yes: WNL Edema: Yes Edema: LLE: 1+, RLE: 1+ Neurological: Yes: Oriented Psychiatric: Yes: Oriented Labs: CBC, BMP 09/19/17 06:00 09/19/17 06:00 INR, PTT INR 1.34 (0.82-1.09) H 09/13/17 05:15 Problem List - Problems (1) CHF (congestive heart failure) Code(s): I50.9 - HEART FAILURE, UNSPECIFIED (2) COPD (chronic obstructive pulmonary disease) Code(s): J44.9 - CHRONIC OBSTRUCTIVE PULMONARY DISEASE, UNSPECIFIED (3) Hypotension Code(s): I95.9 - HYPOTENSION, UNSPECIFIED (4) Sepsis Code(s): A41.9 - SEPSIS, UNSPECIFIED ORGANISM Assessment/Plan Current Medications Generic Name Dose Route Start Last Admin Trade Name Freq PRN Reason Stop Dose Admin Acetaminophen 650 mg 09/15/17 13:14 Tylenol - PO Q6HPO PRN PAIN OR FEVER Albuterol/Ipratropium 1 amp 09/14/17 12:00 09/20/17 11:26 Duoneb - NEB 1 amp RQID [facility] Administration Amino Acids 30 ml 09/14/17 17:30 09/20/17 10:42 Prosource No Carb Liquid Pkt PO Not Given BID@0800,1730 [facility] Apixaban 5 mg 09/14/17 22:00 09/20/17 10:47 Eliquis - PO 5 mg BID [facility] Administration Atorvastatin Calcium 40 mg 09/14/17 22:00 09/19/17 21:30 Lipitor - PO 40 mg HS [facility] Administration Budesonide/Formoterol Fumarate 1 puff 09/14/17 14:00 09/20/17 10:49 Symbicort 160/4.5mcg - IH 1 puff BID [facility] Administration Clotrimazole 1 applic 09/15/17 10:00 09/20/17 10:50 Lotrimin 1% Cream - TP Not Given DAILY [facility] Dextrose 25 gm 09/14/17 11:36 D50w (Vial) - IVPUSH PRN PRN hypoglycemia Digoxin 0.25 mg 09/15/17 10:00 09/20/17 10:46 Lanoxin - PO 0.25 mg DAILY [facility] Administration Finasteride 5 mg 09/20/17 16:00 Proscar - PO DAILY [facility] Insulin Aspart 1 vial 09/14/17 16:30 09/20/17 13:28 Novolog Vial Sliding Scale - SQ 4 unit ACHS [facility] Administration Protocol Oxycodone HCl 5 mg 09/15/17 13:13 09/18/17 23:38 Roxicodone - PO 5 mg Q6H PRN Administration PAIN LEVEL 4 - 6 Polyethylene Glycol 17 gm 09/13/17 10:45 09/20/17 10:49 Miralax (For Daily Use) - PO Not Given DAILY [facility] Prednisone 40 mg 09/21/17 10:00 Deltasone - PO DAILY [facility] Tamsulosin HCl 0.8 mg 09/21/17 09:00 Flomax - PO DAILY@0900 [facility] Torsemide 40 mg 09/19/17 12:00 09/20/17 11:07 Demadex - PO 40 mg DAILY [facility] Administration Verapamil HCl 240 mg 09/19/17 10:00 09/20/17 10:58 Calan Sr - PO Not Given DAILY [facility] Impression 1. SHAKIR 2. CHF 3. obstructive sleep apnea 4. obesity 5. DM 6. HTN 7. hyperlipidemia 8. resp failure requiring bipap 9. sepsis 10. UTI Plan - cont with diuretics, pt on torsemide - will need to monitor volume status and lytes - pt will also need urology follow up after discharge - his renal function is stable - recommend weigh loss as well - bipap as needed Dr Aguilar
[2017-09-20 17:38] VITALS: BP 101/64; PULSE 96; TEMP 97.7
[2017-09-21] MEDS ORDERED: TAMSULOSIN HCL 0.4 MG CAP.ER.24H (FP) PO SCH (09:00)
[2017-09-21] MEDS ORDERED: predniSONE 20 MG TABLET (UD) PO SCH (10:00)
== END 2017-09-20 18:31 | DRG 871 ==
LOC: JER 13:01 → JERBED 16:13 → OBSVTOIN 16:17 → J5S 18:38 → JICU 09-10 15:13 → J7W 09-14 12:33
PROVIDERS: ADMIT Family Medicine; ATTEND Family Medicine
PROC: 5A09557 Assistance with Respiratory Ventilation, Greater than 96 Consecutive Hours, Continuous Positive Airway Pressure (ICD-10-PCS; principal; 2017-09-09)
DX: A41.9 Sepsis, unspecified organism (principal); I50.33 Acute on chronic diastolic (congestive) heart failure; J96.21 Acute and chronic respiratory failure with hypoxia; J96.22 Acute and chronic respiratory failure with hypercapnia; N17.9 Acute kidney failure, unspecified; Z68.41 Body mass index [BMI] 40.0-44.9, adult; N39.0 Urinary tract infection, site not specified; E87.2 Acidosis; I48.92 Unspecified atrial flutter; I13.0 Hypertensive heart and chronic kidney disease with heart failure and stage 1 through stage 4 chronic kidney disease, or unspecified chronic kidney disease; E27.40 Unspecified adrenocortical insufficiency; E86.0 Dehydration; G47.33 Obstructive sleep apnea (adult) (pediatric); E78.5 Hyperlipidemia, unspecified; J44.9 Chronic obstructive pulmonary disease, unspecified; I95.9 Hypotension, unspecified; K21.9 Gastro-esophageal reflux disease without esophagitis; I27.20 Pulmonary hypertension, unspecified; E66.1 Drug-induced obesity; I48.0 Paroxysmal atrial fibrillation; Z16.12 Extended spectrum beta lactamase (ESBL) resistance; B96.20 Unspecified Escherichia coli [E. coli] as the cause of diseases classified elsewhere; E88.09 Other disorders of plasma-protein metabolism, not elsewhere classified; R19.8 Other specified symptoms and signs involving the digestive system and abdomen; D72.829 Elevated white blood cell count, unspecified; E11.40 Type 2 diabetes mellitus with diabetic neuropathy, unspecified; R33.9 Retention of urine, unspecified; N40.0 Benign prostatic hyperplasia without lower urinary tract symptoms; N18.9 Chronic kidney disease, unspecified; R41.82 Altered mental status, unspecified
CPT/HCPCS: 36415; 71045-TC-FY; 74177-TC; 74230-TC-FY; 76775-TC; 80048; 80053; 80162; 81003; 81015; 82533; 82550; 82962; 83605; 83735; 83880; 84100; 84443; 84484; 85025; 85610; 85730; 86850; 86900; 86901; 87040; 87070; 87077; 87086; 87186; 87205; 92611-GN; 93005; 93010; 93306-TC; 94640; 94660; 97116-GP; 97161-GP; 99285-25; G0378; J0833; J7030; J7620

== ENCOUNTER 2018-04-03 15:09 | Inpatient (IN) | payer OTHER ==
--- NOTE | 2018-04-03 15:51 | PDOC ---
Attending Attestation - Resident Resident Name: Fan Muñoz - ED Attending Attestation I have performed the following: I have examined & evaluated the patient, The case was reviewed & discussed with the resident, I agree w/resident's findings & plan, Exceptions are as noted - HPI HPI: 04/03/18 15:50 73y M hx of htn, hl, athritis, afib copd, dm, presents with complaint to pain of R great toe. Pt notes he had a nail clipping a few months ago and it was bleeding since. He was seen by a podietrist who sent the pt to the ED for evlauation. pt notes he is fine uniless someone touches his toe. he denies any fever/chills, n/v, cp, sob, cough. pt ntoes chronic knee pain. on exam +foul smelling discharge from R great toe with tendernes to the distal tip. no erythema, fluctuance appreciated bp slightly hypotension - will fluid resusitate ddx: celluitis, osteomyelitis will ck labs, xray of toe will reassess - Physicial Exam PE: 04/04/18 11:40 see aove - Medical Decision Making esr, crp elevated ?osteo will admit for futher mangaement will give abx, concern for dm & foot wound
[2018-04-03] MEDS ORDERED: SODIUM CHLORIDE 1,000 ML IV STA (16:00)
[2018-04-03] MEDS ORDERED: VANCOMYCIN 1,000 MG in DEXTROSE 5%-WATER - 250 ML IVPB ONE (16:02)
[2018-04-03] MEDS ORDERED: PIPERACILLIN/TAZOB 3.375 GM 3.375 GM in DEXTROSE 5%-WATER - 50 ML IVPB ONE (16:02)
--- NOTE | 2018-04-03 16:08 | PDOC ---
History of Present Illness - General Chief Complaint: Wound Stated Complaint: WOUND INFECTION Time Seen by Provider: 04/03/18 15:39 History Source: Patient Exam Limitations: No Limitations - History of Present Illness Initial Comments: 04/03/18 16:03 Patient is a 73M with history of HTN, CHF, COPD, DM, HLD, afib here today complaining of a wound to his right great toe. He states that the wound started about two months ago after a auxiliary equipment tender cut his toe nails too close. He denies fevers, chills, nausea, vomiting. He endorses bilateral knee pain, but states that it is chronic and denies any trauma. Denies chest pain and shortness of breath. Patient has villareal placed, patient is unsure of why and [facility] paperwork doesn't state reason for villareal. Patient does take flomax. Denies abdominal pain. Past History - Past Medical History Allergies/Adverse Reactions: Allergies Allergy/AdvReac Type Severity Reaction Status Date / Time No Known Allergies Allergy Verified 04/03/18 15:29 Home Medications: Ambulatory Orders Aa/Hydrolyzed Collagen, Whey [Lps Neutral Flavor Liquid] 30 ml PO BID 04/03/18 Acetaminophen [Tylenol] 325 mg PO Q6H PRN 04/03/18 Amino Acids/Protein Hydrolys [Pro-Stat Liquid] 30 ml PO BID 04/03/18 Apixaban [Eliquis] 5 mg PO DAILY 04/03/18 Ascorbic Acid [Vitamin C] 500 mg PO DAILY 04/03/18 Bacitracin - [Bacitracin Topical Ointment -] 1 applic TP DAILY 04/03/18 Budesonide/Formeterol Fumarate [SYMBICORT 160/4.5mcg -] 1 inh PO BID 04/03/18 Cephalexin [Keflex] 250 mg PO Q6H 04/03/18 Cholecalciferol (Vitamin D3) [Vitamin D3] 1,000 unit PO DAILY 04/03/18 Cran/Vitc/Mannose/Fos/Bromeln [Uti-Stat Liquid] 30 ml PO TID 04/03/18 Cyanocobalamin [Vitamin B12 -] 1,000 mcg PO DAILY 04/03/18 Digoxin 125 mcg PO ASDIR 04/03/18 Digoxin 250 mcg PO ASDIR 04/03/18 Docusate Sodium [Colace] 200 mg PO DAILY 04/03/18 Finasteride 5 mg PO DAILY 04/03/18 Folic Acid 1 mg PO DAILY 04/03/18 Gabapentin 200 mg PO TID 04/03/18 Insulin Aspart [Novolog] 0 unit SQ Q6H 04/03/18 L.acidoph,Paracasei, B.lactis [Probiotic] 5 cap PO DAILY 04/03/18 Melatonin 3 mg PO HS 04/03/18 Methyl Salicylate/Menth/Camph [Bengay Ultra Strength Cream] 1 gm TP TID Methylphenidate HCl [Ritalin LA] 5 mg PO DAILY 04/03/18 Mirtazapine [Remeron -] 15 mg PO HS 04/03/18 [place]-3 Fatty Acids [[place]-3] 1,000 mg PO DAILY 04/03/18 Omeprazole 20 mg PO DAILY 04/03/18 Oxycodone HCl 10 mg PO Q6H PRN 04/03/18 Polyethylene Glycol 3350 [Miralax (For Daily Use) -] 17 gm PO DAILY 04/03/18 Potassium Citrate [Potassium Citrate ER] 10 meq PO DAILY 04/03/18 Saliva Substitute Combo No.9 [Biotene] 30 ml MM TID 04/03/18 Silver Sulfadiazine [Silvadene] 1 applic TP BID 04/03/18 Soft Lens Rinse,Store Solution [Saline Solution] 1 spray MC BID 04/03/18 Tamsulosin HCl [Flomax] 0.8 mg PO DAILY 04/03/18 Torsemide 40 mg PO DAILY 04/03/18 Verapamil HCl [Verapamil ER] 240 mg PO DAILY 04/03/18 Zinc Sulfate 220 mg PO DAILY 04/03/18 Anemia: No Asthma: Yes Cancer: No Cardiac Disorders: Yes (CAD, COARSE A.FIBRILATION, CHRONIC ISCHEMIC HEART DISEASE, CARDIOMYOPATHY) CVA: No COPD: Yes (EMPHYSEMA) CHF: Yes Dementia: No Diabetes: Yes (IDDM) GI Disorders: No Disorders: No HTN: Yes Hypercholesterolemia: Yes Liver Disease: Yes (FATTY LIVER) Seizures: No Thyroid Disease: No - Surgical History Abdominal Surgery: No Appendectomy: No Cardiac Surgery: No Cholecystectomy: No Lung Surgery: No Neurologic Surgery: No Orthopedic Surgery: Yes (bilateral knee surgery 1974 left knee 1979) - Family Disease History Family Disease History: Heart Disease: Father - Immunization History Immunization Up to Date: Yes - Suicide/Smoking/Psychosocial Hx Smoking Status: Yes (QUIT 2011) Smoking History: Former smoker Have you smoked in the past 12 months: No Number of Cigarettes Smoked Daily: 0 If you are a former smoker, when did you quit?: 6 years ago Cigars Per Day: 0 Information on smoking cessation initiated: No 'Breaking Loose' booklet given: 08/01/17 Hx Alcohol Use: No Drug/Substance Use Hx: No Substance Use Type: None Hx Substance Use Treatment: Yes (Used to drink and use marijuana and cocaine.) Review of Systems - Review of Systems Comments:: 04/03/18 16:08 GENERAL/CONSTITUTIONAL: No fever or chills. No weakness. HEAD, EYES, EARS, NOSE AND THROAT: No change in vision. No sore throat. CARDIOVASCULAR: No chest pain or shortness of breath RESPIRATORY: No cough, wheezing, or hemoptysis. GASTROINTESTINAL: No nausea, vomiting, diarrhea or constipation. GENITOURINARY: No dysuria, frequency, or change in urination. MUSCULOSKELETAL: +b/l knee pain, +great toe pain, right. No neck or back pain. SKIN: No rash NEUROLOGIC: No headache, vertigo, loss of consciousness, or change in strength/ sensation. ENDOCRINE: No increased thirst. No abnormal weight change HEMATOLOGIC/LYMPHATIC: No anemia, easy bleeding, or history of blood clots. ALLERGIC/IMMUNOLOGIC: No hives or skin allergy. *Physical Exam - Vital Signs Last Vital Signs Temp Pulse Resp BP Pulse Ox 97.2 F L 86 18 87/54 L 94 L 04/03/18 15:22 04/03/18 15:22 04/03/18 15:22 04/03/18 15:22 04/03/18 15:22 - Physical Exam Comments: 04/03/18 16:08 GENERAL: Awake, alert, and fully oriented, in no acute distress R TOE: Malodorous great toe wound around toenail. Nontender. 2+ dp pulse in foot. : Villareal placed, blood at meatus. HEAD: No signs of trauma, normocephalic, atraumatic EYES: PERRLA, EOMI, sclera anicteric, conjunctiva clear ENT: Auricles normal inspection, hearing grossly normal, nares patent, oropharynx clear without exudates. Moist mucosa NECK: Normal ROM, supple, no lymphadenopathy, JVD, or masses LUNGS: No distress, speaks full sentences, clear to auscultation bilaterally HEART: Regular rate and rhythm, normal S1 and S2, no murmurs, rubs or gallops, peripheral pulses normal and equal bilaterally. ABDOMEN: Soft, nontender, normoactive bowel sounds. No guarding, no rebound. No masses EXTREMITIES: Normal inspection, Normal range of motion, no edema. No clubbing or cyanosis. NEUROLOGICAL: Cranial nerves II through XII grossly intact. Normal speech, no focal sensorimotor deficits SKIN: Warm, Dry, normal turgor, no rashes or lesions noted. ED Treatment Course - LABORATORY CBC & Chemistry Diagram: 04/03/18 16:45 04/03/18 16:45 - RADIOLOGY Radiology Studies Ordered: Category Date Time Status CHEST X-RAY PORTABLE* [RAD] Stat Radiology 04/03/18 16:00 Ordered FOOT-RIGHT [RAD] Stat Radiology 04/03/18 16:01 Ordered Medical Decision Making - Medical Decision Making 04/03/18 16:09 Patient is 73M with history of HTN, CHF, COPD, DM, HLD, afib here today complaining of toe wound. Hypotensive to 87/54, afebrile, no tachycardia. DDx includes, but is not limited to: wound infection, UTI, PNA. Septic workup initiated, will give 1L of fluids at first given CHF history. Will reassess. EKG shows afib with rate of 95. No st elevations/depressions. Diffuse flattening of t waves. Normal axis. Normal QRS/QTc intervals. 04/03/18 19:20 CRP, ESR elevated. CXR shows no pneumonia. CBC shows mild leukocytosis. Patient's BP normalized with fluids. Lactate initially negative. Will admit for diabetic wound. *DC/Admit/Observation/Transfer Diagnosis at time of Disposition: Type 2 diabetes mellitus with foot ulcer - Discharge Dispostion Condition at time of disposition: Stable Decision to Admit order: Yes - Referrals Referrals: Bo Desai MD [Primary Care Provider] - - Patient Instructions - Post Discharge Activity
[2018-04-03] MEDS ORDERED: VANCOMYCIN 1 GRAM (PRE-DOCKED) 1,000 MG/250 ML BAG IVPB ONE (16:33)
[2018-04-03] MEDS ORDERED: PIPERACILLIN/TAZOB 3.375 GM 3.375 GM/50 ML BAG IVPB ONE (16:33)
[2018-04-03 17:06] LABS: BASO % 0.8 % (0-2.0); HEMATOCRIT 39.6 % (35.4-49); HEMOGLOBIN 13.2 GM/dL (11.7-16.9); LYMPH % 15.8 % (8-40); MCH 31.4 pg (25.7-33.7); MCHC 33.3 g/dl (32.0-35.9); MEAN CELL VOLUME 94.2 fl (80-96); MONO % 7.8 % (3.8-10.2); NEUT % 73.6 % (42.8-82.8); PLATELET COUNT 379 K/MM3 (134-434); RDW 15.2 % (11.9-15.9); WHITE BLOOD COUNT 10.5 K/mm3 (4.0-10.0)
[2018-04-03 17:55] LABS: ALBUMIN 1.8 g/dl (3.4-5.0); ALK PHOS 101 U/L (45-117); ANION GAP 5 MMOL/L (8-16); BILIRUBIN,TOTAL 0.8 mg/dL (0.2-1); BLOOD UREA NITROGEN 17 mg/dL (7-18); CALCIUM 8.2 mg/dL (8.5-10.1); CHLORIDE 97 mmol/L (98-107); CO2 35 mmol/L (21-32); CREATININE 0.5 mg/dL (0.55-1.3); GLUCOSE,RANDOM 109 mg/dL (74-106); SGOT/AST 27 U/L (15-37); SGPT/ALT 13 U/L (13-61); SODIUM 137 mmol/L (136-145); TOT PROT 6.4 g/dl (6.4-8.2)
[2018-04-03] MEDS ORDERED: morphine CARPU-JECT 4 MG/1 ML DISP.SYRIN IVPUSH ONE (17:58)
[2018-04-03 17:59] LABS: INR 1.52 (0.83-1.09); PROTHROMBIN TIME (PATIENT) 17.2 SEC (9.7-13.0)
[2018-04-03] MEDS ORDERED: MORPHINE SULFATE 2 MG/ML VIAL ONE (17:59)
[2018-04-03 18:01] LABS: ACTIVATED PTT 39.6 SECONDS (25.2-36.5)
--- NOTE | 2018-04-03 19:52 | PN ---
Teaching Attending Note Name of Resident: Rogers Valdovinos ATTENDING PHYSICIAN STATEMENT I saw and evaluated the patient. I reviewed the resident's note and discussed the case with the resident. I agree with the resident's findings and plan as documented. SUBJECTIVE: 73 y/o M presented to ED c/o right great toe pain s/p podiatry cutting his toe nail. OBJECTIVE: VS: BP 87/54 GEN: Alert and oriented times 2 HEENT: EOMI, PERRLa, poor oral hygiene CVS: RRR, S1, S2 Lungs: CTA Abd: soft, NT, BS+, no guarding or rebound Ext: Right 1st toe nail bed with sanguineous discharge, tender to palpation. 2+ pulses. CBCD WBC 10.5 K/mm3 (4.0-10.0) H 04/03/18 16:45 RBC 4.20 M/mm3 (4.00-5.60) 04/03/18 16:45 Hgb 13.2 GM/dL (11.7-16.9) 04/03/18 16:45 Hct 39.6 % (35.4-49) D 04/03/18 16:45 MCV 94.2 fl (80-96) 04/03/18 16:45 MCHC 33.3 g/dl (32.0-35.9) 04/03/18 16:45 RDW 15.2 % (11.9-15.9) D 04/03/18 16:45 Plt Count 379 K/MM3 (134-434) 04/03/18 16:45 MPV 9.0 fl (7.5-11.1) D 04/03/18 16:45 CMP Sodium 137 mmol/L (136-145) 04/03/18 16:45 Potassium 4.0 mmol/L (3.5-5.1) 04/03/18 16:45 Chloride 97 mmol/L (98-107) L 04/03/18 16:45 Carbon Dioxide 35 mmol/L (21-32) H 04/03/18 16:45 Anion Gap 5 MMOL/L (8-16) L 04/03/18 16:45 BUN 17 mg/dL (7-18) 04/03/18 16:45 Creatinine 0.5 mg/dL (0.55-1.3) L 04/03/18 16:45 Creat Clearance w eGFR > 60 (>60) 04/03/18 16:45 Calcium 8.2 mg/dL (8.5-10.1) L 04/03/18 16:45 Total Bilirubin 0.8 mg/dL (0.2-1) 04/03/18 16:45 AST 27 U/L (15-37) 04/03/18 16:45 ALT 13 U/L (13-61) 04/03/18 16:45 Alkaline Phosphatase 101 U/L (45-117) 04/03/18 16:45 Total Protein 6.4 g/dl (6.4-8.2) 04/03/18 16:45 Albumin 1.8 g/dl (3.4-5.0) L 04/03/18 16:45 ASSESSMENT AND PLAN: Septic Shock possibly secondary to wound infection with h/o diabetes. IVF NS Zosyn and Vancomycin Maintain MAP 65 Follow Bld cx Repeat CBC and CMP in AM H/o CHF monitor for fluid overload Hold HTN medications for hypotension Admit to non cardiac telemetry Afib- Continue Wolf CORNELL2- RISS case d/w resident and plans agreed on
[2018-04-03] MEDS ORDERED: morphine SULFATE 4 MG/ML VIAL ONE (21:43)
[2018-04-03] MEDS ORDERED: morphine SULFATE 4 MG/ML VIAL IVPUSH ONE (21:50)
--- NOTE | 2018-04-03 21:51 | HP ---
CHIEF COMPLAINT: PCP: Dr Desai HISTORY OF PRESENT ILLNESS: Pt is a 73 y/o gentleman with a significant past medical history of HTN, CHF, AFIB, DM, and HLD who presented to [facility] [place] c /o of severe pain in his right great toe. Pt endorses that his pain has been present for approximately 2 months ever since his accounting file clerk cut his toe nails. Pain is described as sharp, 10/10 in severity, nonradiating, and constant. Denies fever, sob, headache, nausea, vomiting, or chest pain. Endorses lightheadedness and chills, states he has experienced over a 100 lb unintentional weight loss over the past 1 year. ER course was notable for: (1) WBC 10.5 (2) Chest XRAY-> mild b/l increased interstitial markings, mild atelectatic changes R lung base (3) Morphine 4 mg for Pain control Recent Travel: Denies PAST MEDICAL HISTORY: HTN, CHF, AFIB, DM, and HLD PAST SURGICAL HISTORY: Tonsilectomy, R knee replacement, L Knee Arthroscopy Social History: Smoking:Quit smoking 6 years ago Alcohol: denies Drugs: Denies Family History: Father(2 strokes) Allergies No Known Allergies Allergy (Verified 04/03/18 15:29) HOME MEDICATIONS: Home Medications Medication Instructions Recorded Aa/Hydrolyzed Collagen, Whey [Lps 30 ml PO BID 04/03/18 Neutral Flavor Liquid] Acetaminophen [Tylenol] 325 mg PO Q6H PRN 04/03/18 Amino Acids/Protein Hydrolys 30 ml PO BID 04/03/18 [Pro-Stat Liquid] Apixaban [Eliquis] 5 mg PO DAILY 04/03/18 Ascorbic Acid [Vitamin C] 500 mg PO DAILY 04/03/18 Bacitracin - [Bacitracin Topical 1 applic TP DAILY 04/03/18 Ointment -] Budesonide/Formeterol Fumarate 1 inh PO BID 04/03/18 [SYMBICORT 160/4.5mcg -] Cephalexin [Keflex] 250 mg PO Q6H 04/03/18 Cholecalciferol (Vitamin D3) 1,000 unit PO DAILY 04/03/18 [Vitamin D3] Cran/Vitc/Mannose/Fos/Bromeln 30 ml PO TID 04/03/18 [Uti-Stat Liquid] Cyanocobalamin [Vitamin B12 -] 1,000 mcg PO DAILY 04/03/18 Digoxin 125 mcg PO ASDIR 04/03/18 Digoxin 250 mcg PO ASDIR 04/03/18 Docusate Sodium [Colace] 200 mg PO DAILY 04/03/18 Finasteride 5 mg PO DAILY 04/03/18 Folic Acid 1 mg PO DAILY 04/03/18 Gabapentin 200 mg PO TID 04/03/18 Insulin Aspart [Novolog] 0 unit SQ Q6H 04/03/18 L.acidoph,Paracasei, B.lactis 5 cap PO DAILY 04/03/18 [Probiotic] Melatonin 3 mg PO HS 04/03/18 Methyl Salicylate/Menth/Camph 1 gm TP TID 04/03/18 [Bengay Ultra Strength Cream] Methylphenidate HCl [Ritalin LA] 5 mg PO DAILY 04/03/18 Mirtazapine [Remeron -] 15 mg PO HS 04/03/18 Garnett-3 Fatty Acids [Garnett-3] 1,000 mg PO DAILY 04/03/18 Omeprazole 20 mg PO DAILY 04/03/18 Oxycodone HCl 10 mg PO Q6H PRN 04/03/18 Polyethylene Glycol 3350 [Miralax 17 gm PO DAILY 04/03/18 (For Daily Use) -] Potassium Citrate [Potassium 10 meq PO DAILY 04/03/18 Citrate ER] Saliva Substitute Combo No.9 30 ml MM TID 04/03/18 [Biotene] Silver Sulfadiazine [Silvadene] 1 applic TP BID 04/03/18 Soft Lens Rinse,Store Solution 1 spray MC BID 04/03/18 [Saline Solution] Tamsulosin HCl [Flomax] 0.8 mg PO DAILY 04/03/18 Torsemide 40 mg PO DAILY 04/03/18 Verapamil HCl [Verapamil ER] 240 mg PO DAILY 04/03/18 Zinc Sulfate 220 mg PO DAILY 04/03/18 REVIEW OF SYSTEMS CONSTITUTIONAL: PRESENT: chills, loss of appetite, weight change HEENT: Absent: rhinorrhea, nasal congestion, throat pain, throat swelling, difficulty swallowing, mouth swelling, ear pain, eye pain, visual changes CARDIOVASCULAR: Absent: chest pain, syncope, palpitations, irregular heart rate, lightheadedness , peripheral edema RESPIRATORY: Absent: cough, shortness of breath, dyspnea with exertion, orthopnea, wheezing, stridor, hemoptysis GASTROINTESTINAL: Absent: abdominal pain, abdominal distension, nausea, vomiting, diarrhea, constipation, melena, hematochezia GENITOURINARY: Absent: dysuria, frequency, urgency, hesitancy, hematuria, flank pain, genital pain MUSCULOSKELETAL: Absent: myalgia, arthralgia, joint swelling, back pain, neck pain SKIN: PRESENT: Xeroderma back and upper extremities. Right Great toe nail separation. HEMATOLOGIC/IMMUNOLOGIC: Absent: easy bleeding, easy bruising, lymphadenopathy, frequent infections ENDOCRINE: Absent: unexplained weight gain, unexplained weight loss, heat intolerance, cold intolerance NEUROLOGIC: Absent: headache, focal weakness or paresthesias, dizziness, unsteady gait, seizure, mental status changes, bladder or bowel incontinence PSYCHIATRIC: Absent: anxiety, depression, suicidal or homicidal ideation, hallucinations. PHYSICAL EXAMINATION Vital Signs - 24 hr 04/03/18 04/03/18 04/03/18 15:22 17:15 17:17 Temperature 97.2 F L Pulse Rate 86 Pulse Rate [ 62 Apical] Respiratory 18 17 Rate Blood Pressure 87/54 L Blood Pressure 108/70 [Right Arm] O2 Sat by Pulse 94 L 98 97 Oximetry (%) 04/03/18 04/03/18 19:44 20:49 Temperature 99.5 F Pulse Rate Pulse Rate [ 87 90 Apical] Respiratory 17 16 Rate Blood Pressure Blood Pressure 92/73 87/67 L [Right Arm] O2 Sat by Pulse 95 3 L Oximetry (%) GENERAL: AAOx2. HEAD: NC/AT EYES: EOMI PERRLA EARS, NOSE, THROAT: Poor dentition, MMM NECK: Supple LUNGS: CTA B/L HEART: RRR S1 S2 No MRG ABDOMEN: NT ND No HSM, Obese MUSCULOSKELETAL: limited ROM lower extremities UPPER EXTREMITIES: Xeroderma, imparied ROM left arm/shoulder LOWER EXTREMITIES: 2+ pulses, warm, + Jordon's sign left leg NEUROLOGICAL: CN 2-12 intact PSYCHIATRIC: Cooperative. Good eye contact. SKIN: Xeroderma Laboratory Results - last 24 hr 04/03/18 04/03/18 04/03/18 16:00 16:05 16:45 WBC 10.5 H RBC 4.20 Hgb 13.2 Hct 39.6 D MCV 94.2 MCH 31.4 MCHC 33.3 RDW 15.2 D Plt Count 379 MPV 9.0 D Absolute Neuts (auto) 7.7 Neutrophils % 73.6 Lymphocytes % 15.8 D Monocytes % 7.8 Eosinophils % 2.0 D Basophils % 0.8 D Nucleated RBC % 0 ESR PT with INR INR PTT (Actin FS) Sodium Potassium Chloride Carbon Dioxide Anion Gap BUN Creatinine Creat Clearance w eGFR Random Glucose Lactic Acid Calcium Total Bilirubin AST ALT Alkaline Phosphatase Troponin I < 0.02 C-Reactive Protein Cancelled Total Protein Albumin 04/03/18 04/03/18 04/03/18 16:45 16:45 16:45 WBC RBC Hgb Hct MCV MCH MCHC RDW Plt Count MPV Absolute Neuts (auto) Neutrophils % Lymphocytes % Monocytes % Eosinophils % Basophils % Nucleated RBC % ESR 82 H PT with INR 17.20 H INR 1.52 H PTT (Actin FS) 39.6 H Sodium 137 Potassium 4.0 Chloride 97 L Carbon Dioxide 35 H Anion Gap 5 L BUN 17 Creatinine 0.5 L Creat Clearance w eGFR > 60 Random Glucose 109 H Lactic Acid Calcium 8.2 L Total Bilirubin 0.8 AST 27 ALT 13 Alkaline Phosphatase 101 Troponin I C-Reactive Protein 8.5 H Total Protein 6.4 Albumin 1.8 L 04/03/18 16:45 WBC RBC Hgb Hct MCV MCH MCHC RDW Plt Count MPV Absolute Neuts (auto) Neutrophils % Lymphocytes % Monocytes % Eosinophils % Basophils % Nucleated RBC % ESR PT with INR INR PTT (Actin FS) Sodium Potassium Chloride Carbon Dioxide Anion Gap BUN Creatinine Creat Clearance w eGFR Random Glucose Lactic Acid 1.4 Calcium Total Bilirubin AST ALT Alkaline Phosphatase Troponin I C-Reactive Protein Total Protein Albumin ASSESSMENT/PLAN: 73 y/o gentleman with a significant past medical history of HTN, CHF, AFIB, DM, and HLD who presented to [facility] [place] c/o of severe pain in his right great toe. Septic shock 2/2 wound infection? Foot painful, Hypotensive responsive to fluids #Vanc/Zosyn in ED, will continue tomorrow #NS #CBC Repeat in am HTN Hypotensive BP, Hold Hypertensive meds currently (No HTN med listed, recommend med rec) AFIB Eliquis 2.5 mg po BID DM Novolog Sliding Scale ACHS FEN LR's Monitor electrolytes Sodium/Diabetic Diet ppx: Eliquis 2.5 mg po BID Dispo: continue to monitor on floors Visit type - Emergency Visit Emergency Visit: Yes ED Registration Date: 04/03/18 Care time: The patient presented to the Emergency Department on the above date and was hospitalized for further evaluation of their emergent condition. - New Patient This patient is new to me today: Yes Date on this admission: 04/04/18 - Critical Care Critical Care patient: No Hospitalist Screening - Colonoscopy Questionnaire Colonoscopy Questionnaire: Colonoscopy Questionnaire - Patient: 50 - 75 years old and never had a screening colonoscopy: Unknown History of colon or rectal polyps, or CA: Unknown History of IBD, Crohn's disease or UC: Unknown History of abdominal radiation therapy as a child: Unknown - Relative: 1 with colon or rectal CA, or polyps at age 60 or younger: Unknown Colon or rectal CA diagnosed at age 45 or younger: Unknown Multiple relatives with colon or rectal CA: Unknown - Outcome: Screening Result: Negative Screen
[2018-04-03 22:20] LABS: URINE APPEARANCE CLOUDY; URINE BILIRUBIN NEGATIVE (<2.0 mg/dL); URINE COLOR AMBER; URINE GLUCOSE (UA) NEGATIVE (NEGATIVE); URINE KETONE NEGATIVE (NEGATIVE); URINE NITRITE NEGATIVE (NEGATIVE); URINE UROBILINOGEN NEGATIVE mg/dL (0.2-1.0)
[2018-04-03 22:21] LABS: URINE LEUK ESTERASE 2+ (NEGATIVE); URINE PROTEIN 1+ (NEGATIVE)
[2018-04-03 22:31] LABS: URINE HYALINE CAST 20 /lpf
[2018-04-04] MEDS ORDERED: VANCOMYCIN 1,250 MG in DEXTROSE 5%-WATER - 250 ML IVPB ONE ×2 (02:40→10:00)
[2018-04-04] MEDS: LACTATED RINGERS SOLUTION 1,000 ML/1,000 ML INFUS.BAG IV SCH ×2 (03:57→06:42)
[2018-04-04] MEDS: GABAPENTIN 100 MG CAPSULE (FP) PO SCH ×3 (06:42→22:41)
[2018-04-04] MEDS: LYTES/YERBA SANTA 240 ML BOTTLE MM SCH ×3 (06:43→22:41)
[2018-04-04 06:51] LABS: BASO % 0.3 % (0-2.0); EOS % 0.5 % (0-4.5); HEMATOCRIT 34.2 % (35.4-49); HEMOGLOBIN 11.7 GM/dL (11.7-16.9); LYMPH % 11.9 % (8-40); MCH 33.8 pg (25.7-33.7); MCHC 34.2 g/dl (32.0-35.9); MEAN CELL VOLUME 98.9 fl (80-96); MEAN PLT VOLUME 8.7 fl (7.5-11.1); MONO % 8.4 % (3.8-10.2); NEUT % 78.9 % (42.8-82.8); PLATELET COUNT 355 K/MM3 (134-434); RBC 3.46 M/mm3 (4.00-5.60); WHITE BLOOD COUNT 12.2 K/mm3 (4.0-10.0)
[2018-04-04] MEDS: INSULIN SLIDING SCALE (NOVOLOG) 1 VIAL SQ SCH ×4 (06:52→21:52)
[2018-04-04 07:20] LABS: ANION GAP 9 MMOL/L (8-16); BLOOD UREA NITROGEN 17 mg/dL (7-18); CHLORIDE 98 mmol/L (98-107); CO2 32 mmol/L (21-32); CREATININE 0.4 mg/dL (0.55-1.3); GLUCOSE,RANDOM 82 mg/dL (74-106); MAGNESIUM 1.2 mg/dL (1.8-2.4); PHOSPHOROUS 3.2 mg/dL (2.5-4.9); POTASSIUM 3.9 mmol/L (3.5-5.1); SODIUM 139 mmol/L (136-145)
[2018-04-04] MEDS: TAMSULOSIN HCL 0.4 MG CAP.ER.24H (FP) PO SCH (07:59)
[2018-04-04] MEDS ORDERED: PIPERACILLIN/TAZOBACTAM 2.25 GM VIAL IVPB ONE (09:01)
[2018-04-04] MEDS ORDERED: DEXTROSE 5%-WATER - 50 ML IVPB ONE (09:02)
[2018-04-04] MEDS: CHOLECALCIFEROL (VITAMIN D3) 1,000 UNIT TABLET (FP) PO SCH (09:13)
[2018-04-04] MEDS: ZINC SULFATE 220 MG CAPSULE (FP) PO SCH (09:13)
[2018-04-04] MEDS: FOLIC ACID 1 MG TABLET (FP) PO SCH (09:13)
[2018-04-04] MEDS: ASCORBIC ACID 500 MG TABLET (FP) PO SCH (09:13)
[2018-04-04] MEDS: CYANOCOBALAMIN 1,000 MCG TABLET (FP) PO SCH (09:13)
[2018-04-04] MEDS: FINASTERIDE 5 MG TABLET (FP) PO SCH (09:13)
[2018-04-04] MEDS: APIXABAN 2.5 MG TABLET PO SCH ×2 (09:13→22:41)
[2018-04-04] MEDS: PANTOPRAZOLE 20 MG TABLET (FP) PO SCH (09:13)
[2018-04-04] MEDS: OMEGA-3 ACID ETHYL ESTERS (FATTY-ACIDS) 1 GM CAPSULE (FP) PO SCH (09:13)
[2018-04-04] MEDS: POLYETHYLENE GLYCOL 3350 119 GM BTL PO SCH (09:14)
[2018-04-04] MEDS ORDERED: METHYLPHENIDATE HCL 5 MG PO SCH (10:00)
[2018-04-04] MEDS ORDERED: ENOXAPARIN NA (PORCINE) 40 MG/0.4 ML DISP.SYRIN SQ SCH (10:00)
[2018-04-04] MEDS ORDERED: PIPERACILLIN/TAZOB 2.25 GM 2.25 GM in DEXTROSE 5%-WATER - 50 ML IVPB ONE (10:00)
[2018-04-04] MEDS: BUDESONIDE/FORMETEROL FUMARATE 160/4.5 mcg INHALER IH SCH ×2 (10:32→22:42)
--- NOTE | 2018-04-04 10:57 | EKG ---
Test Reason : Blood Pressure : / mmHG Vent. Rate : 095 BPM Atrial Rate : 214 BPM P-R Int : 000 ms QRS Dur : 094 ms QT Int : 310 ms P-R-T Axes : 000 033 142 degrees QTc Int : 389 ms ATRIAL FIBRILLATION LOW VOLTAGE QRS NONSPECIFIC ST AND T WAVE ABNORMALITY ABNORMAL ECG Confirmed by MD ROSALBA, KG ([id number]) on 04/04/2018 10:57:02 AM Referred By: Confirmed By:KG NAVARRETE MD
[2018-04-04] MEDS ORDERED: MAGNESIUM SULF 50% (8.12 MEQ/2 ML-1 GM VIAL) IVPB ONE (14:57)
--- NOTE | 2018-04-04 15:04 | PN ---
Progress Note, Physician Chief Complaint: patient sent in for right foot pain got chasityochery in ER - Current Medication List Current Medications: Active Medications Apixaban (Eliquis -) 2.5 mg PO BID [facility] Last Admin: 04/04/18 09:13 Dose: 2.5 mg Ascorbic Acid (Vitamin C -) 500 mg PO DAILY [facility] Last Admin: 04/04/18 09:13 Dose: 500 mg Budesonide/Formoterol Fumarate (Symbicort 160/4.5mcg -) 1 puff IH BID [facility] Last Admin: 04/04/18 10:32 Dose: 1 puff Cholecalciferol (Vitamin D3 -) 1,000 unit PO DAILY [facility] Last Admin: 04/04/18 09:13 Dose: 1,000 unit Cyanocobalamin (Vitamin B12 -) 1,000 mcg PO DAILY [facility] Last Admin: 04/04/18 09:13 Dose: 1,000 mcg Finasteride (Proscar -) 5 mg PO DAILY [facility] Last Admin: 04/04/18 09:13 Dose: 5 mg Folic Acid (Folic Acid -) 1 mg PO DAILY [facility] Last Admin: 04/04/18 09:13 Dose: 1 mg Gabapentin (Neurontin -) 200 mg PO TID [facility] Last Admin: 04/04/18 13:30 Dose: 200 mg Lactated Ringer's (Lactated Ringers Solution) 1,000 ml in 1,000 mls @ 83 mls/ hr IV ASDIR [facility] Last Admin: 04/04/18 06:42 Dose: Not Given Insulin Aspart (Novolog Vial Sliding Scale -) 1 vial SQ ACHS [facility]; Protocol Last Admin: 04/04/18 11:07 Dose: Not Given Magnesium Sulfate (Magnesium Sulfate) 2 gm IVPB ONCE ONE Stop: 04/04/18 14:58 Riciw-4-Ohnn Ethyl Esters (Lovaza -) 1 gm PO DAILY [facility] Last Admin: 04/04/18 09:13 Dose: 1 gm Oxycodone HCl (Roxicodone -) 10 mg PO Q6H PRN PRN Reason: PAIN LEVEL 7 - 10 Pantoprazole Sodium (Protonix -) 20 mg PO DAILY [facility] Last Admin: 04/04/18 09:13 Dose: 20 mg Polyethylene Glycol (Miralax (For Daily Use) -) 17 gm PO DAILY [facility] Last Admin: 04/04/18 09:14 Dose: Not Given Saliva Substitute (Mouthkote Solution -) 1 applic MM TID [facility] Last Admin: 04/04/18 13:29 Dose: Not Given Tamsulosin HCl (Flomax -) 0.8 mg PO DAILY@0830 [facility] Last Admin: 04/04/18 07:59 Dose: 0.8 mg Zinc Sulfate (Orazinc -) 220 mg PO DAILY [facility] Last Admin: 04/04/18 09:13 Dose: 220 mg - Objective Vital Signs: Vital Signs Temperature 97.8 F 04/04/18 08:00 Pulse Rate 96 H 04/04/18 08:00 Respiratory Rate 18 04/04/18 08:00 Blood Pressure 112/63 04/04/18 08:00 O2 Sat by Pulse Oximetry (%) 95 04/04/18 09:00 Constitutional: Yes: Mild Distress Cardiovascular: Yes: Regular Rate and Rhythm, S1, S2 Respiratory: Yes: CTA Bilaterally Gastrointestinal: Yes: Normal Bowel Sounds, Soft Genitourinary: Yes: Mathews Present Wound/Incision: Yes: Other (right foot pain) Labs: CBC, BMP 04/04/18 06:00 04/04/18 06:00 INR, PTT INR 1.52 (0.83-1.09) H 04/03/18 16:45 Problem List - Problems (1) Type 2 diabetes mellitus with foot ulcer Assessment/Plan: podiatry ID broad specturm abx MRI of foot to r/o osteo cultures bgm sliding scale neuroapthy tid Code(s): E11.621 - TYPE 2 DIABETES MELLITUS WITH FOOT ULCER; L97.509 - NON- PRESSURE CHRONIC ULCER OTH PRT UNSP FOOT W UNSP SEVERITY (2) Atrial fibrillation Assessment/Plan: eliquis rate control- verampamil 240mg on hold given low BP HR ok for now Code(s): I48.91 - UNSPECIFIED ATRIAL FIBRILLATION Qualifiers: Atrial fibrillation type: chronic Qualified Code(s): I48.2 - Chronic atrial fibrillation (3) COPD (chronic obstructive pulmonary disease) Assessment/Plan: bronchodilators nasal oxygen 2 litre keep ox sat > 90 Code(s): J44.9 - CHRONIC OBSTRUCTIVE PULMONARY DISEASE, UNSPECIFIED Qualifiers: COPD type: unspecified COPD Qualified Code(s): J44.9 - Chronic obstructive pulmonary disease, unspecified (4) BPH (benign prostatic hyperplasia) Assessment/Plan: flomax and finastride Code(s): N40.0 - BENIGN PROSTATIC HYPERPLASIA WITHOUT LOWER URINRY TRACT SYMP
[2018-04-04] MEDS: oxyCODONE HCL 5 MG TABLET PO PRN ×2 (15:21→22:41)
[2018-04-05] MEDS: LACTATED RINGERS SOLUTION 1,000 ML/1,000 ML INFUS.BAG IV SCH (03:27)
[2018-04-05] MEDS: LYTES/YERBA SANTA 240 ML BOTTLE MM SCH ×3 (05:56→22:46)
[2018-04-05] MEDS: INSULIN SLIDING SCALE (NOVOLOG) 1 VIAL SQ SCH ×4 (06:13→22:45)
[2018-04-05] MEDS: GABAPENTIN 100 MG CAPSULE (FP) PO SCH ×3 (06:18→22:44)
[2018-04-05] MEDS: oxyCODONE HCL 5 MG TABLET PO PRN ×2 (06:19→18:55)
--- NOTE | 2018-04-05 06:54 | CONSULT ---
Consult - text type - Consultation Consultation Note: Podiatry Consultation: 73 year old DM M sent in from [place] for R great toe nail pain, on and off for about 2 months. Patient had his toe nails cut by gold blower in [place], noted drainage and pain from the toe nails, specifically right great toe nail. Denies F/V/N/C/SOB/CP. Afebrile. PMHx: DM, HTN, HLP, Afib Meds: noted ALL: NKMA DARLENE: Pedal pulses palpable, TG wnl, CFT brisk to all toes. On the right great toe, there is erythema localized to the nail fold, serosanguinous drainage, moderate tenderness to palpation, an associated ingrown nail along the lateral nail fold. On the medial aspect of the nail is a granuloma formation at the nail fold. There is no active bleeding, no streaking cellulitis, no signs of active infection. No ischemic nor gangrenous changes to the foot. WBC: 12.2 Blood Cx: no growth x 24 hrs Imp: 73 year old DM M with paronychia and ingrown nail right great toe 1. Patient refused xray right foot 2. Abx 3. Recommend topical bactroban for local wound care. Can perform epsom soaking as well 10-15 min daily to the right great toe. 4. Patient needs partial nail avulsion of the right great toe. This is most commonly done as outpatient basis. Patient can f/u this Tuesday in wound healing center for formal procedure. [phone]. Thank you for the courtesy of this consultation. Alicia Soriano DPM
[2018-04-05 06:56] LABS: BASO % 0.7 % (0-2.0); EOS % 2.9 % (0-4.5); HEMATOCRIT 32.5 % (35.4-49); HEMOGLOBIN 11.1 GM/dL (11.7-16.9); LYMPH % 18.8 % (8-40); MCH 33.1 pg (25.7-33.7); MCHC 34.1 g/dl (32.0-35.9); MEAN PLT VOLUME 8.6 fl (7.5-11.1); NEUT % 67.6 % (42.8-82.8); PLATELET COUNT 339 K/MM3 (134-434); RBC 3.35 M/mm3 (4.00-5.60); RDW 15.3 % (11.9-15.9); WHITE BLOOD COUNT 9.3 K/mm3 (4.0-10.0)
[2018-04-05 07:36] LABS: ALBUMIN 1.6 g/dl (3.4-5.0); ALK PHOS 86 U/L (45-117); ANION GAP 7 MMOL/L (8-16); BILIRUBIN,TOTAL 0.7 mg/dL (0.2-1); BLOOD UREA NITROGEN 15 mg/dL (7-18); CALCIUM 8.2 mg/dL (8.5-10.1); CHLORIDE 98 mmol/L (98-107); CO2 31 mmol/L (21-32); CREATININE 0.4 mg/dL (0.55-1.3); GLUCOSE,RANDOM 67 mg/dL (74-106); MAGNESIUM 1.9 mg/dL (1.8-2.4); POTASSIUM 3.7 mmol/L (3.5-5.1); SGOT/AST 20 U/L (15-37); SGPT/ALT 11 U/L (13-61); SODIUM 137 mmol/L (136-145); TOT PROT 5.5 g/dl (6.4-8.2)
--- NOTE | 2018-04-05 09:53 | PN ---
Progress Note, Physician Chief Complaint: AWAKE ALERT FEELING BETTER EVENTS AND NOTES REVIEWED - Current Medication List Current Medications: Active Medications Apixaban (Eliquis -) 2.5 mg PO BID [facility] Last Admin: 04/04/18 22:41 Dose: 2.5 mg Ascorbic Acid (Vitamin C -) 500 mg PO DAILY [facility] Last Admin: 04/04/18 09:13 Dose: 500 mg Budesonide/Formoterol Fumarate (Symbicort 160/4.5mcg -) 1 puff IH BID [facility] Last Admin: 04/04/18 22:42 Dose: 1 puff Cholecalciferol (Vitamin D3 -) 1,000 unit PO DAILY [facility] Last Admin: 04/04/18 09:13 Dose: 1,000 unit Cyanocobalamin (Vitamin B12 -) 1,000 mcg PO DAILY [facility] Last Admin: 04/04/18 09:13 Dose: 1,000 mcg Finasteride (Proscar -) 5 mg PO DAILY [facility] Last Admin: 04/04/18 09:13 Dose: 5 mg Folic Acid (Folic Acid -) 1 mg PO DAILY [facility] Last Admin: 04/04/18 09:13 Dose: 1 mg Gabapentin (Neurontin -) 200 mg PO TID [facility] Last Admin: 04/05/18 06:18 Dose: 200 mg Lactated Ringer's (Lactated Ringers Solution) 1,000 ml in 1,000 mls @ 83 mls/ hr IV ASDIR [facility] Last Admin: 04/05/18 03:27 Dose: 83 mls/hr Insulin Aspart (Novolog Vial Sliding Scale -) 1 vial SQ ACHS [facility]; Protocol Last Admin: 04/05/18 06:13 Dose: Not Given Hbqll-6-Ccso Ethyl Esters (Lovaza -) 1 gm PO DAILY [facility] Last Admin: 04/04/18 09:13 Dose: 1 gm Oxycodone HCl (Roxicodone -) 10 mg PO Q6H PRN PRN Reason: PAIN LEVEL 7 - 10 Last Admin: 04/05/18 06:19 Dose: 10 mg Pantoprazole Sodium (Protonix -) 20 mg PO DAILY [facility] Last Admin: 04/04/18 09:13 Dose: 20 mg Polyethylene Glycol (Miralax (For Daily Use) -) 17 gm PO DAILY [facility] Last Admin: 04/04/18 09:14 Dose: Not Given Saliva Substitute (Mouthkote Solution -) 1 applic MM TID [facility] Last Admin: 04/05/18 05:56 Dose: Not Given Tamsulosin HCl (Flomax -) 0.8 mg PO DAILY@0830 [facility] Last Admin: 04/04/18 07:59 Dose: 0.8 mg Zinc Sulfate (Orazinc -) 220 mg PO DAILY [facility] Last Admin: 04/04/18 09:13 Dose: 220 mg - Objective Vital Signs: Vital Signs Temperature 97.6 F 04/05/18 05:20 Pulse Rate 104 H 04/05/18 05:20 Respiratory Rate 18 04/05/18 05:20 Blood Pressure 95/53 L 04/05/18 05:20 O2 Sat by Pulse Oximetry (%) 98 04/04/18 21:00 Constitutional: Yes: Mild Distress Eyes: Yes: WNL HENT: Yes: WNL Neck: Yes: WNL Cardiovascular: Yes: Pulse Irregular Respiratory: Yes: Cough, Diminished, On Nasal O2 Gastrointestinal: Yes: WNL Genitourinary: Yes: Incontinence Musculoskeletal: Yes: Muscle Weakness Edema: Yes Peripheral Pulses WNL: Yes Integumentary: Yes: Pressure Ulcer, Rash, Venous Stasis Changes Wound/Incision: Yes: Clean/Dry Neurological: Yes: Pre-Existing Deficit ...Motor Strength: LLE, RLE Psychiatric: Yes: WNL Labs: CBC, BMP 04/05/18 06:00 04/05/18 06:00 INR, PTT INR 1.52 (0.83-1.09) H 04/03/18 16:45 Problem List - Problems (1) BPH (benign prostatic hyperplasia) Code(s): N40.0 - BENIGN PROSTATIC HYPERPLASIA WITHOUT LOWER URINRY TRACT SYMP (2) ESBL E. coli carrier Code(s): Z22.39 - CARRIER OF OTHER SPECIFIED BACTERIAL DISEASES (3) Acute bronchitis with COPD Code(s): J44.0 - CHRONIC OBSTRUCTIVE PULMON DISEASE W ACUTE LOWER RESP INFCT (4) Acute chronic obstructive pulmonary disease with respiratory distress Code(s): J44.9 - CHRONIC OBSTRUCTIVE PULMONARY DISEASE, UNSPECIFIED; R06.03 - ACUTE RESPIRATORY DISTRESS (5) Acute exacerbation of chronic obstructive pulmonary disease (COPD) Code(s): J44.1 - CHRONIC OBSTRUCTIVE PULMONARY DISEASE W (ACUTE) EXACERBATION (6) Asthma Code(s): J45.909 - UNSPECIFIED ASTHMA, UNCOMPLICATED Qualifiers: Asthma severity: moderate Asthma complication type: with acute exacerbation (7) Atrial fibrillation Code(s): I48.91 - UNSPECIFIED ATRIAL FIBRILLATION Qualifiers: Atrial fibrillation type: chronic Qualified Code(s): I48.2 - Chronic atrial fibrillation (8) Diabetes mellitus Code(s): E11.9 - TYPE 2 DIABETES MELLITUS WITHOUT COMPLICATIONS Qualifiers: Diabetes mellitus type: type 2 Assessment/Plan IV ABX PER ID PULM F/U RENAL EVAL WOUND CARE PODIATRY F/U NEBS AFIB ON AC PT EVAL
[2018-04-05] MEDS: ASCORBIC ACID 500 MG TABLET (FP) PO SCH (10:55)
[2018-04-05] MEDS: PANTOPRAZOLE 20 MG TABLET (FP) PO SCH (10:55)
[2018-04-05] MEDS: OMEGA-3 ACID ETHYL ESTERS (FATTY-ACIDS) 1 GM CAPSULE (FP) PO SCH (10:55)
[2018-04-05] MEDS: ZINC SULFATE 220 MG CAPSULE (FP) PO SCH (10:55)
[2018-04-05] MEDS: APIXABAN 2.5 MG TABLET PO SCH ×2 (10:55→22:45)
[2018-04-05] MEDS: CYANOCOBALAMIN 1,000 MCG TABLET (FP) PO SCH (10:55)
[2018-04-05] MEDS: CHOLECALCIFEROL (VITAMIN D3) 1,000 UNIT TABLET (FP) PO SCH (10:55)
[2018-04-05] MEDS: FOLIC ACID 1 MG TABLET (FP) PO SCH (10:55)
[2018-04-05] MEDS: FINASTERIDE 5 MG TABLET (FP) PO SCH (10:55)
[2018-04-05] MEDS: TAMSULOSIN HCL 0.4 MG CAP.ER.24H (FP) PO SCH (10:56)
[2018-04-05] MEDS: POLYETHYLENE GLYCOL 3350 119 GM BTL PO SCH (10:58)
[2018-04-05] MEDS: BUDESONIDE/FORMETEROL FUMARATE 160/4.5 mcg INHALER IH SCH ×2 (10:59→22:45)
--- NOTE | 2018-04-05 14:31 | CONSULT ---
- Consultation REQUESTING PROVIDER: CONSULT REQUEST: We have been asked to surgically evaluate this patient for right big toe infection PCP:Bo Desai HISTORY OF PRESENT ILLNESS: Patient is a 73M with history of HTN, CHF, COPD, DM, HLD, afib presents with wound to his right great toe. He states that the wound started about two months ago after a technical solutions engineer cut his toe nails too close. He denies fevers, chills, nausea, vomiting. He also c/o B/l knee pain at baseline and ambulated with a cane. He Denies any chest pain and shortness of breath, fever or chills PMHx: HTN CHF COPD DM HLD AFIB PSHx: - Surgical History Abdominal Surgery: No Appendectomy: No Cardiac Surgery: No Cholecystectomy: No Lung Surgery: No Neurologic Surgery: No Orthopedic Surgery: Yes (bilateral knee surgery 1974 left knee 1979) Home Medications Medication Instructions Recorded Acetaminophen [Tylenol] 325 mg PO Q6H PRN 04/03/18 Amino Acids/Protein Hydrolys 30 ml PO BID 04/03/18 [Pro-Stat Liquid] Apixaban [Eliquis] 5 mg PO DAILY 04/03/18 Ascorbic Acid [Vitamin C] 500 mg PO DAILY 04/03/18 Budesonide/Formeterol Fumarate 1 inh PO BID 04/03/18 [SYMBICORT 160/4.5mcg -] Cephalexin [Keflex] 250 mg PO Q6H 04/03/18 Cholecalciferol (Vitamin D3) 1,000 unit PO DAILY 04/03/18 [Vitamin D3] Cran/Vitc/Mannose/Fos/Bromeln 30 ml PO TID 04/03/18 [Uti-Stat Liquid] Cyanocobalamin [Vitamin B12 -] 1,000 mcg PO DAILY 04/03/18 Digoxin 125 mcg PO ASDIR 04/03/18 Digoxin 125 mcg PO ASDIR 04/03/18 Finasteride 5 mg PO DAILY 04/03/18 Folic Acid 1 mg PO DAILY 04/03/18 Gabapentin 200 mg PO TID 04/03/18 Methylphenidate HCl [Ritalin LA] 5 mg PO DAILY 04/03/18 Dallas-3 Fatty Acids [Dallas-3] 1,000 mg PO DAILY 04/03/18 Omeprazole 20 mg PO DAILY 04/03/18 Polyethylene Glycol 3350 [Miralax 17 gm PO DAILY 04/03/18 (For Daily Use) -] Potassium Citrate [Potassium 10 meq PO DAILY 04/03/18 Citrate ER] Saliva Substitute Combo No.9 30 ml MM TID 04/03/18 [Biotene] Tamsulosin HCl [Flomax] 0.8 mg PO DAILY 04/03/18 Zinc Sulfate 220 mg PO DAILY 04/03/18 Allergies Allergy/AdvReac Type Severity Reaction Status Date / Time No Known Allergies Allergy Verified 04/03/18 15:29 REVIEW OF SYSTEMS: CONSTITUTIONAL: Absent: fever, chills, diaphoresis, CARDIOVASCULAR: Absent: chest pain, syncope, RESPIRATORY: Absent: cough, shortness of breath, dyspnea with exertion, GASTROINTESTINAL: Absent: abdominal pain, abdominal distension, nausea, vomiting, MUSCULOSKELETAL: Absent: back pain, neck pain SKIN: Absent: rash, itching, pallor HEMATOLOGIC/IMMUNOLOGIC: Absent: easy bleeding, lymphadenopathy NEUROLOGIC: Absent: headache, focal weakness, PSYCHIATRIC: Absent: anxiety, depression, suicidal or homicidal ideation, hallucinations. PHYSICAL EXAM: GENERAL: Awake, alert, and fully oriented, in no acute distress. HEAD: Normal with no signs of trauma. EYES: sclera anicteric, conjunctiva clear. LUNGS: No wheezes audible, No accessory muscle use. UPPER EXTREMITIES: warm, well-perfused. No peripheral edema. LOWER EXTREMITIES: Right toe with dried bloody d/c over medial margin of nail bed, no odor, mild erythema with no tracking, no fluctuance or collection, Foot warm and well perfused with +2 DP and dopplerable PT pulses. No calf tenderness. No peripheral edema, no rashes or chronic skin changes Left LE compartments soft, supple and non-tender to palpation, +2 DP and dopplerable PT pulses. No rashes or chronic skin changes NEUROLOGICAL: Normal speech, gait not observed. PSYCH: Cooperative. Good eye contact. Appropriate mood and affect. SKIN: Warm, dry, normal turgor, no rashes or lesions noted. Vital Signs Temperature 97.6 F 04/05/18 05:20 Pulse Rate 104 H 04/05/18 05:20 Respiratory Rate 18 04/05/18 05:20 Blood Pressure 95/53 L 04/05/18 05:20 O2 Sat by Pulse Oximetry (%) 98 04/04/18 21:00 Lab Results WBC 9.3 K/mm3 (4.0-10.0) 04/05/18 06:00 RBC 3.35 M/mm3 (4.00-5.60) L 04/05/18 06:00 Hgb 11.1 GM/dL (11.7-16.9) L 04/05/18 06:00 Hct 32.5 % (35.4-49) L 04/05/18 06:00 MCV 97.0 fl (80-96) H 04/05/18 06:00 MCHC 34.1 g/dl (32.0-35.9) 04/05/18 06:00 RDW 15.3 % (11.9-15.9) 04/05/18 06:00 Plt Count 339 K/MM3 (134-434) 04/05/18 06:00 Sodium 137 mmol/L (136-145) 04/05/18 06:00 Potassium 3.7 mmol/L (3.5-5.1) 04/05/18 06:00 Chloride 98 mmol/L (98-107) 04/05/18 06:00 Carbon Dioxide 31 mmol/L (21-32) 04/05/18 06:00 Anion Gap 7 MMOL/L (8-16) L 04/05/18 06:00 BUN 15 mg/dL (7-18) 04/05/18 06:00 Creatinine 0.4 mg/dL (0.55-1.3) L 04/05/18 06:00 Random Glucose 67 mg/dL (74-106) L 04/05/18 06:00 Calcium 8.2 mg/dL (8.5-10.1) L 04/05/18 06:00 INR 1.52 (0.83-1.09) H 04/03/18 16:45 Problem List - Problems (1) Ingrowing toenail with infection Assessment/Plan: Ingrown toenail of right great toe, good pulses with no need for vascular intervention will defer all care to podiatry 1) Podiatry to address toenail 2) abx per ID 3) re-consult vascualr PRN Evaluation and plan discussed with Dr Gómez Code(s): L60.0 - INGROWING NAIL
--- NOTE | 2018-04-05 16:46 | CON.ID ---
Consult Consult Specialty:: infectious disease Referred by:: dahlia Reason for Consultation:: right big toe infection - History of Present Illness Chief Complaint: right big toe wound History of Present Illness: noted by managed care specialist at [facility] and patient sent to the ED had his toenails trimmed 2 months ago, now with some discomfort and erythema along the medial nil bed of the first toe right foot no fevers chronic knee and shoulder pain chronic villareal not ambulating due to pain no SOB, no chest pain doesnt like the food at the [facility] - History Source History Provided By: Patient, Medical Record Limitations to Obtaining History: No Limitations - Past Medical History Cardio/Vascular: Yes: AFIB, CHF, HTN, Hyperlipdemia, Pulmonary Hypertension Pulmonary: Yes: COPD, O2 Dependent, Pneumonia, Sleep Apnea. No: Cancer Gastrointestinal: Yes: GERD Renal/: Yes: Renal Inusuff Infectious Disease: Yes: MRSA, Other (ecoli esbl bacteremia due to UTI, 09/25) Endocrine: Yes: Other (MORBIDLY OBESE) - Past Surgical History Past Surgical History: Yes: Tonsillectomy - Alcohol/Substance Use Hx Alcohol Use: No - Smoking History Smoking history: Former smoker Have you smoked in the past 12 months: No Aproximately how many cigarettes per day: 0 If you are a former smoker, when did you quit?: 6 years ago - Social History Usual Living Arrangement: Detention ADL: Independent Occupation: retired History of Recent Travel: No Home Medications - Allergies Allergies/Adverse Reactions: Allergies Allergy/AdvReac Type Severity Reaction Status Date / Time No Known Allergies Allergy Verified 04/03/18 15:29 - Home Medications Home Medications: Ambulatory Orders Acetaminophen [Tylenol] 325 mg PO Q6H PRN 04/03/18 Amino Acids/Protein Hydrolys [Pro-Stat Liquid] 30 ml PO BID 04/03/18 Apixaban [Eliquis] 5 mg PO DAILY 04/03/18 Ascorbic Acid [Vitamin C] 500 mg PO DAILY 04/03/18 Budesonide/Formeterol Fumarate [SYMBICORT 160/4.5mcg -] 1 inh PO BID 04/03/18 Cephalexin [Keflex] 250 mg PO Q6H 04/03/18 Cholecalciferol (Vitamin D3) [Vitamin D3] 1,000 unit PO DAILY 04/03/18 Cran/Vitc/Mannose/Fos/Bromeln [Uti-Stat Liquid] 30 ml PO TID 04/03/18 Cyanocobalamin [Vitamin B12 -] 1,000 mcg PO DAILY 04/03/18 Digoxin 125 mcg PO ASDIR 04/03/18 Digoxin 125 mcg PO ASDIR 04/03/18 Finasteride 5 mg PO DAILY 04/03/18 Folic Acid 1 mg PO DAILY 04/03/18 Gabapentin 200 mg PO TID 04/03/18 Methylphenidate HCl [Ritalin LA] 5 mg PO DAILY 04/03/18 [place]-3 Fatty Acids [[place]-3] 1,000 mg PO DAILY 04/03/18 Omeprazole 20 mg PO DAILY 04/03/18 Polyethylene Glycol 3350 [Miralax (For Daily Use) -] 17 gm PO DAILY 04/03/18 Potassium Citrate [Potassium Citrate ER] 10 meq PO DAILY 04/03/18 Saliva Substitute Combo No.9 [Biotene] 30 ml MM TID 04/03/18 Tamsulosin HCl [Flomax] 0.8 mg PO DAILY 04/03/18 Zinc Sulfate 220 mg PO DAILY 04/03/18 Family Disease History - Family Disease History Family History: Denies Review of Systems - Review of Systems Constitutional: denies: Chills, Fever HENT: reports: No Symptoms Neck: reports: No Symptoms Cardiovascular: reports: No Symptoms. denies: Chest Pain, Shortness of Breath Respiratory: reports: No Symptoms. denies: Cough Gastrointestinal: reports: No Symptoms. denies: Abdominal Pain Genitourinary: reports: Other (has villareal) Musculoskeletal: reports: Joint Pain Neurological: reports: No Symptoms Physical Exam Vital Signs: Vital Signs Temperature 97.5 F L 04/05/18 15:26 Pulse Rate 96 H 04/05/18 15:26 Respiratory Rate 18 04/05/18 15:26 Blood Pressure 101/66 04/05/18 15:26 O2 Sat by Pulse Oximetry (%) 98 04/04/18 21:00 Constitutional: Yes: No Distress Eyes: Yes: Conjunctiva Clear HENT: Yes: Atraumatic, Normocephalic. No: Pharyngeal Erythema, Thrush Neck: Yes: Supple Cardiovascular: Yes: Regular Rate and Rhythm Respiratory: Yes: Regular, CTA Bilaterally Gastrointestinal: Yes: Normal Bowel Sounds, Soft ...Rectal Exam: Yes: Deferred Renal/: Yes: Villareal Present Extremities: Yes: Other (mild erythema alone the medial aspect of the first toe nail bed with bleeding, no pus) Integumentary: Yes: WNL Neurological: Yes: Alert, Oriented Psychiatric: Yes: Alert, Oriented Labs: CBC, BMP 04/05/18 06:00 04/05/18 06:00 Microbiology 04/03/18 22:10 Urine - Urine - Catheterized Urine Culture - Preliminary Group D Strep Or Entero Coccus 04/03/18 16:48 Blood - Peripheral Venous Blood Culture - Preliminary NO GROWTH OBTAINED AFTER 24 HOURS, INCUBATION TO CONTINUE FOR 4 DAYS. 04/03/18 16:48 Blood - Peripheral Venous Blood Culture - Preliminary NO GROWTH OBTAINED AFTER 24 HOURS, INCUBATION TO CONTINUE FOR 4 DAYS. Imaging - Results Chest X-ray: Report Reviewed Problem List - Problems (1) Ingrowing toenail with infection Code(s): L60.0 - INGROWING NAIL (2) MRSA colonization Code(s): Z22.322 - CARRIER OR SUSPECTED CARRIER OF METHICILLIN RESIS STAPH (3) ESBL E. coli carrier Code(s): Z22.39 - CARRIER OF OTHER SPECIFIED BACTERIAL DISEASES Assessment/Plan contact isolation vancomycin for now if cultures are negative in am can switch to po bactrim for 7 days with podiatry followup please call back if needed
[2018-04-05] MEDS: VANCOMYCIN 1,250 MG in DEXTROSE 5%-WATER - 250 ML IVPB SCH (20:14)
[2018-04-06] MEDS: LACTATED RINGERS SOLUTION 1,000 ML/1,000 ML INFUS.BAG IV SCH (03:30)
[2018-04-06] MEDS: VANCOMYCIN 1,250 MG in DEXTROSE 5%-WATER - 250 ML IVPB SCH ×2 (06:06→17:28)
[2018-04-06] MEDS: oxyCODONE HCL 5 MG TABLET PO PRN ×2 (06:07→14:43)
[2018-04-06] MEDS: GABAPENTIN 100 MG CAPSULE (FP) PO SCH ×3 (06:07→21:57)
[2018-04-06] MEDS: LYTES/YERBA SANTA 240 ML BOTTLE MM SCH ×3 (06:09→22:04)
[2018-04-06] MEDS: INSULIN SLIDING SCALE (NOVOLOG) 1 VIAL SQ SCH ×4 (06:11→22:04)
--- NOTE | 2018-04-06 08:15 | PN ---
Progress Note, Physician Chief Complaint: AWAKE ALERT BP LOW 80/50 BEDSIDE IVF STARTED DENIES CHEST PAIN OR SOB - Current Medication List Current Medications: Active Medications Amino Acids (Prosource No Carb Liquid Pkt) 30 ml PO BID@0800,1730 [facility] Apixaban (Eliquis -) 2.5 mg PO BID [facility] Last Admin: 04/05/18 22:45 Dose: 2.5 mg Ascorbic Acid (Vitamin C -) 500 mg PO DAILY [facility] Last Admin: 04/05/18 10:55 Dose: 500 mg Budesonide/Formoterol Fumarate (Symbicort 160/4.5mcg -) 1 puff IH BID [facility] Last Admin: 04/05/18 22:45 Dose: 1 puff Cholecalciferol (Vitamin D3 -) 1,000 unit PO DAILY [facility] Last Admin: 04/05/18 10:55 Dose: 1,000 unit Cyanocobalamin (Vitamin B12 -) 1,000 mcg PO DAILY [facility] Last Admin: 04/05/18 10:55 Dose: 1,000 mcg Finasteride (Proscar -) 5 mg PO DAILY [facility] Last Admin: 04/05/18 10:55 Dose: 5 mg Folic Acid (Folic Acid -) 1 mg PO DAILY [facility] Last Admin: 04/05/18 10:55 Dose: 1 mg Gabapentin (Neurontin -) 200 mg PO TID [facility] Last Admin: 04/06/18 06:07 Dose: 200 mg Lactated Ringer's (Lactated Ringers Solution) 1,000 ml in 1,000 mls @ 83 mls/ hr IV ASDIR [facility] Last Admin: 04/06/18 03:30 Dose: 83 mls/hr Vancomycin HCl 1,250 mg/ (Dextrose) 250 mls @ 166.667 mls/hr IVPB BID@0600, 1800 [facility]; Protocol Last Admin: 04/06/18 06:06 Dose: 166.667 mls/hr Insulin Aspart (Novolog Vial Sliding Scale -) 1 vial SQ ACHS [facility]; Protocol Last Admin: 04/06/18 06:11 Dose: Not Given Qlnpb-2-Sqhd Ethyl Esters (Lovaza -) 1 gm PO DAILY [facility] Last Admin: 04/05/18 10:55 Dose: 1 gm Oxycodone HCl (Roxicodone -) 10 mg PO Q6H PRN PRN Reason: PAIN LEVEL 7 - 10 Last Admin: 04/06/18 06:07 Dose: 10 mg Pantoprazole Sodium (Protonix -) 20 mg PO DAILY [facility] Last Admin: 04/05/18 10:55 Dose: 20 mg Polyethylene Glycol (Miralax (For Daily Use) -) 17 gm PO DAILY [facility] Last Admin: 04/05/18 10:58 Dose: Not Given Saliva Substitute (Mouthkote Solution -) 1 applic MM TID [facility] Last Admin: 04/06/18 06:09 Dose: Not Given Tamsulosin HCl (Flomax -) 0.8 mg PO DAILY@0830 [facility] Last Admin: 04/05/18 10:56 Dose: 0.8 mg Zinc Sulfate (Orazinc -) 220 mg PO DAILY [facility] Last Admin: 04/05/18 10:55 Dose: 220 mg - Objective Vital Signs: Vital Signs Temperature 98.3 F 04/06/18 05:59 Pulse Rate 97 H 04/06/18 05:59 Respiratory Rate 20 04/06/18 05:59 Blood Pressure 112/65 04/06/18 05:59 O2 Sat by Pulse Oximetry (%) 98 04/04/18 21:00 Constitutional: Yes: Mild Distress Eyes: Yes: WNL HENT: Yes: WNL Neck: Yes: WNL Cardiovascular: Yes: Pulse Irregular Respiratory: Yes: Cough, On Nasal O2, Rales Gastrointestinal: Yes: WNL Genitourinary: Yes: WNL Musculoskeletal: Yes: Muscle Weakness Extremities: Yes: Deformity Edema: Yes Integumentary: Yes: Other Wound/Incision: Yes: Open to air (TOE INFECTION NO DISCHARGE, OPEN TO AIR NON- TENDER) Neurological: Yes: Pre-Existing Deficit ...Motor Strength: LLE, RLE Psychiatric: Yes: WNL Labs: CBC, BMP 04/05/18 06:00 04/05/18 06:00 INR, PTT INR 1.52 (0.83-1.09) H 04/03/18 16:45 Problem List - Problems (1) BPH (benign prostatic hyperplasia) Code(s): N40.0 - BENIGN PROSTATIC HYPERPLASIA WITHOUT LOWER URINRY TRACT SYMP (2) ESBL E. coli carrier Code(s): Z22.39 - CARRIER OF OTHER SPECIFIED BACTERIAL DISEASES (3) Acute bronchitis with COPD Code(s): J44.0 - CHRONIC OBSTRUCTIVE PULMON DISEASE W ACUTE LOWER RESP INFCT (4) Acute chronic obstructive pulmonary disease with respiratory distress Code(s): J44.9 - CHRONIC OBSTRUCTIVE PULMONARY DISEASE, UNSPECIFIED; R06.03 - ACUTE RESPIRATORY DISTRESS (5) Acute exacerbation of chronic obstructive pulmonary disease (COPD) Code(s): J44.1 - CHRONIC OBSTRUCTIVE PULMONARY DISEASE W (ACUTE) EXACERBATION (6) Asthma Code(s): J45.909 - UNSPECIFIED ASTHMA, UNCOMPLICATED Qualifiers: Asthma severity: moderate Asthma complication type: with acute exacerbation (7) Atrial fibrillation Code(s): I48.91 - UNSPECIFIED ATRIAL FIBRILLATION Qualifiers: Atrial fibrillation type: chronic Qualified Code(s): I48.2 - Chronic atrial fibrillation (8) Diabetes mellitus Code(s): E11.9 - TYPE 2 DIABETES MELLITUS WITHOUT COMPLICATIONS Qualifiers: Diabetes mellitus type: type 2 Assessment/Plan IV ABX PER ID PULM F/U ON IVF NO FEVERS RENAL EVAL WOUND CARE PODIATRY F/U NEBS AFIB ON AC PT EVAL
[2018-04-06] MEDS: AMINO ACIDS/PROTEIN HYDROLYS 30 ML LIQUID.PKT PO SCH ×2 (08:45→17:28)
[2018-04-06] MEDS: TAMSULOSIN HCL 0.4 MG CAP.ER.24H (FP) PO SCH (08:45)
[2018-04-06] MEDS ORDERED: SODIUM CHLORIDE 250 ML IV STA (09:04)
[2018-04-06] MEDS: CHOLECALCIFEROL (VITAMIN D3) 1,000 UNIT TABLET (FP) PO SCH (09:45)
[2018-04-06] MEDS: APIXABAN 2.5 MG TABLET PO SCH ×2 (09:45→21:57)
[2018-04-06] MEDS: ZINC SULFATE 220 MG CAPSULE (FP) PO SCH (09:45)
[2018-04-06] MEDS: FINASTERIDE 5 MG TABLET (FP) PO SCH (09:45)
[2018-04-06] MEDS: ASCORBIC ACID 500 MG TABLET (FP) PO SCH (09:45)
[2018-04-06] MEDS: PANTOPRAZOLE 20 MG TABLET (FP) PO SCH (09:45)
[2018-04-06] MEDS: CYANOCOBALAMIN 1,000 MCG TABLET (FP) PO SCH (09:46)
[2018-04-06] MEDS: BUDESONIDE/FORMETEROL FUMARATE 160/4.5 mcg INHALER IH SCH ×2 (09:46→21:56)
[2018-04-06] MEDS: FOLIC ACID 1 MG TABLET (FP) PO SCH (09:46)
[2018-04-06] MEDS: OMEGA-3 ACID ETHYL ESTERS (FATTY-ACIDS) 1 GM CAPSULE (FP) PO SCH (09:46)
[2018-04-06] MEDS ORDERED: SODIUM CHLORIDE 1,000 ML IV SCH (10:00)
--- NOTE | 2018-04-06 10:21 | CON.PULM ---
Consult Consult Specialty:: PULMONARY Referred by:: Dr. Desai Reason for Consultation:: shortness of breath - History of Present Illness Chief Complaint: toe pain History of Present Illness: 73yo male with h/o HTN, DM, hyperlipidemia, atrial fibrillation, COPD, chronic hypoxic respiratory failure, LV diastolic dysfunction who [facility] pain. Being evaluated by podiatry and ID. Denies shortness of breath, cough or wheezing. Has not needed BiPAP in a "long time," maintained on supplemental oxygen. No fevers, chills or sweats. Has had a poor appetite at the [facility] due to dislike of the food there. - History Source History Provided By: Patient, Medical Record Limitations to Obtaining History: No Limitations - Past Medical History Cardio/Vascular: Yes: AFIB, CHF, HTN, Hyperlipdemia, Pulmonary Hypertension Pulmonary: Yes: COPD, O2 Dependent, Pneumonia, Sleep Apnea. No: Cancer Gastrointestinal: Yes: GERD Renal/: Yes: Renal Inusuff Infectious Disease: Yes: MRSA, Other (ecoli esbl bacteremia due to UTI, 09/25) Endocrine: Yes: Other (MORBIDLY OBESE) - Past Surgical History Past Surgical History: Yes: Tonsillectomy - Alcohol/Substance Use Hx Alcohol Use: No - Smoking History Smoking history: Former smoker Have you smoked in the past 12 months: No Aproximately how many cigarettes per day: 0 If you are a former smoker, when did you quit?: 6 years ago - Social History Usual Living Arrangement: [facility] ADL: Independent Occupation: retired History of Recent Travel: No Home Medications - Allergies Allergies/Adverse Reactions: Allergies Allergy/AdvReac Type Severity Reaction Status Date / Time No Known Allergies Allergy Verified 04/03/18 15:29 - Home Medications Home Medications: Ambulatory Orders Acetaminophen [Tylenol] 325 mg PO Q6H PRN 04/03/18 Amino Acids/Protein Hydrolys [Pro-Stat Liquid] 30 ml PO BID 04/03/18 Apixaban [Eliquis] 5 mg PO DAILY 04/03/18 Ascorbic Acid [Vitamin C] 500 mg PO DAILY 04/03/18 Budesonide/Formeterol Fumarate [SYMBICORT 160/4.5mcg -] 1 inh PO BID 04/03/18 Cephalexin [Keflex] 250 mg PO Q6H 04/03/18 Cholecalciferol (Vitamin D3) [Vitamin D3] 1,000 unit PO DAILY 04/03/18 Cran/Vitc/Mannose/Fos/Bromeln [Uti-Stat Liquid] 30 ml PO TID 04/03/18 Cyanocobalamin [Vitamin B12 -] 1,000 mcg PO DAILY 04/03/18 Digoxin 125 mcg PO ASDIR 04/03/18 Digoxin 125 mcg PO ASDIR 04/03/18 Finasteride 5 mg PO DAILY 04/03/18 Folic Acid 1 mg PO DAILY 04/03/18 Gabapentin 200 mg PO TID 04/03/18 Methylphenidate HCl [Ritalin LA] 5 mg PO DAILY 04/03/18 [place]-3 Fatty Acids [[place]-3] 1,000 mg PO DAILY 04/03/18 Omeprazole 20 mg PO DAILY 04/03/18 Polyethylene Glycol 3350 [Miralax (For Daily Use) -] 17 gm PO DAILY 04/03/18 Potassium Citrate [Potassium Citrate ER] 10 meq PO DAILY 04/03/18 Saliva Substitute Combo No.9 [Biotene] 30 ml MM TID 04/03/18 Tamsulosin HCl [Flomax] 0.8 mg PO DAILY 04/03/18 Zinc Sulfate 220 mg PO DAILY 04/03/18 Review of Systems - Review of Systems Constitutional: reports: Weakness. denies: Chills, Fever Eyes: denies: Recent Change in Vision HENT: denies: Nasal Congestion, Throat Pain Neck: denies: Stiffness, Tenderness Cardiovascular: denies: Chest Pain, Edema, Palpitations, Shortness of Breath Respiratory: denies: Cough, Hemoptysis, SOB, Wheezing Gastrointestinal: denies: Abdominal Pain, Nausea, Vomiting Genitourinary: denies: Dysuria, Hematuria Musculoskeletal: reports: Extremity Pain (right toe) Neurological: denies: Dizziness, Headache Physical Exam Vital Sings: Vital Signs Temperature 98.3 F 04/06/18 05:59 Pulse Rate 97 H 04/06/18 05:59 Respiratory Rate 20 04/06/18 05:59 Blood Pressure 112/65 04/06/18 05:59 O2 Sat by Pulse Oximetry (%) 98 04/04/18 21:00 Constitutional: Yes: Calm Eyes: Yes: Conjunctiva Clear, EOM Intact HENT: Yes: Atraumatic, Normocephalic Neck: Yes: Supple, Trachea Midline Cardiovascular: Yes: Regular Rate and Rhythm Respiratory: Yes: Diminished (decreased breath sounds at the bases) ...Clubbing: No Gastrointestinal: Yes: Normal Bowel Sounds, Soft, Abdomen, Obese. No: Tenderness Edema: No Neurological: Yes: Alert, Oriented Labs: CBC, BMP 04/05/18 06:00 04/05/18 06:00 Imaging - Results Chest X-ray: Report Reviewed, Image Reviewed (mild basilar atelectasis) Problem List - Problems (1) Ingrowing toenail with infection Code(s): L60.0 - INGROWING NAIL (2) Chronic respiratory failure with hypoxia Code(s): J96.11 - CHRONIC RESPIRATORY FAILURE WITH HYPOXIA (3) Atrial fibrillation Code(s): I48.91 - UNSPECIFIED ATRIAL FIBRILLATION Qualifiers: Atrial fibrillation type: chronic Qualified Code(s): I48.2 - Chronic atrial fibrillation (4) COPD (chronic obstructive pulmonary disease) Code(s): J44.9 - CHRONIC OBSTRUCTIVE PULMONARY DISEASE, UNSPECIFIED Qualifiers: COPD type: unspecified COPD Qualified Code(s): J44.9 - Chronic obstructive pulmonary disease, unspecified (5) Diabetes mellitus Code(s): E11.9 - TYPE 2 DIABETES MELLITUS WITHOUT COMPLICATIONS Qualifiers: Diabetes mellitus type: type 2 (6) HTN (hypertension) Code(s): I10 - ESSENTIAL (PRIMARY) HYPERTENSION (7) Obesity Code(s): E66.9 - OBESITY, UNSPECIFIED Qualifiers: Obesity classification: adult class 3 (BMI >= 40) Assessment/Plan Ingrown Nail COPD Chronic Hypoxic Respiratory Failure Obstructive Sleep Apnea LV Diastolic Dysfunction Atrial Fibrillation HTN DM - incentive spirometry - inhaled bronchodilators - O2 to keep SpO2 >90% - can defer systemic steroids at this time - offered BiPAP at night for his LUCY but currently declining - rate control - continue anticoagulation Thank you for this consult Billy Lozano MD
[2018-04-06] MEDS: POLYETHYLENE GLYCOL 3350 119 GM BTL PO SCH (11:27)
--- NOTE | 2018-04-06 15:04 | CONSULT ---
Consult Consult Specialty:: Nephrology Reason for Consultation:: fluid overload - History of Present Illness Chief Complaint: right great toe infection History of Present Illness: Pt is a 73 year old male with pmhx of HTN, a-fib, DM and obesity who presents to the ER with right great toe pain and was found to have an infection. I was called to evaluate him for fluid overload. He has lost over 100 pounds as he says that he does not like the food in the rehab center. He is no longer using the bipap at night. He denies dysuria or hematuria. - History Source History Provided By: Patient - Past Medical History Cardio/Vascular: Yes: AFIB, CHF, HTN, Hyperlipdemia, Pulmonary Hypertension Pulmonary: Yes: COPD, O2 Dependent, Pneumonia, Sleep Apnea Gastrointestinal: Yes: GERD Renal/: Yes: Renal Inusuff Infectious Disease: Yes: MRSA, Other (ecoli esbl bacteremia due to UTI, 09/25) Endocrine: Yes: Other (MORBIDLY OBESE) - Past Surgical History Past Surgical History: Yes: Tonsillectomy - Alcohol/Substance Use Hx Alcohol Use: No - Smoking History Smoking history: Former smoker Have you smoked in the past 12 months: No Aproximately how many cigarettes per day: 0 If you are a former smoker, when did you quit?: 6 years ago - Social History Usual Living Arrangement: [facility] ADL: Independent Occupation: retired History of Recent Travel: No Home Medications - Allergies Allergies/Adverse Reactions: Allergies Allergy/AdvReac Type Severity Reaction Status Date / Time No Known Allergies Allergy Verified 04/03/18 15:29 - Home Medications Home Medications: Ambulatory Orders Acetaminophen [Tylenol] 325 mg PO Q6H PRN 04/03/18 Amino Acids/Protein Hydrolys [Pro-Stat Liquid] 30 ml PO BID 04/03/18 Apixaban [Eliquis] 5 mg PO DAILY 04/03/18 Ascorbic Acid [Vitamin C] 500 mg PO DAILY 04/03/18 Budesonide/Formeterol Fumarate [SYMBICORT 160/4.5mcg -] 1 inh PO BID 04/03/18 Cephalexin [Keflex] 250 mg PO Q6H 04/03/18 Cholecalciferol (Vitamin D3) [Vitamin D3] 1,000 unit PO DAILY 04/03/18 Cran/Vitc/Mannose/Fos/Bromeln [Uti-Stat Liquid] 30 ml PO TID 04/03/18 Cyanocobalamin [Vitamin B12 -] 1,000 mcg PO DAILY 04/03/18 Digoxin 125 mcg PO ASDIR 04/03/18 Digoxin 125 mcg PO ASDIR 04/03/18 Finasteride 5 mg PO DAILY 04/03/18 Folic Acid 1 mg PO DAILY 04/03/18 Gabapentin 200 mg PO TID 04/03/18 Methylphenidate HCl [Ritalin LA] 5 mg PO DAILY 04/03/18 [place]-3 Fatty Acids [[place]-3] 1,000 mg PO DAILY 04/03/18 Omeprazole 20 mg PO DAILY 04/03/18 Polyethylene Glycol 3350 [Miralax (For Daily Use) -] 17 gm PO DAILY 04/03/18 Potassium Citrate [Potassium Citrate ER] 10 meq PO DAILY 04/03/18 Saliva Substitute Combo No.9 [Biotene] 30 ml MM TID 04/03/18 Tamsulosin HCl [Flomax] 0.8 mg PO DAILY 04/03/18 Zinc Sulfate 220 mg PO DAILY 04/03/18 Family Disease History - Family Disease History Family History: Denies Review of Systems - Review of Systems Constitutional: reports: Malaise Eyes: reports: No Symptoms HENT: reports: No Symptoms Neck: reports: No Symptoms Cardiovascular: reports: Edema Respiratory: reports: SOB Genitourinary: reports: No Symptoms Musculoskeletal: reports: Other (right toe pain) Neurological: reports: No Symptoms Endocrine: reports: No Symptoms Hematology/Lymphatic: reports: No Symptoms Psychiatric: reports: No Symptoms Physical Exam Vital Signs: Vital Signs Temperature 97.7 F 04/06/18 14:43 Pulse Rate 101 H 04/06/18 14:43 Respiratory Rate 20 04/06/18 14:43 Blood Pressure 110/74 04/06/18 14:43 O2 Sat by Pulse Oximetry (%) 98 04/04/18 21:00 Constitutional: Yes: Calm Eyes: Yes: Conjunctiva Clear HENT: Yes: Atraumatic Cardiovascular: Yes: S1, S2 Respiratory: Yes: On Nasal O2, Rhonchi Gastrointestinal: Yes: Soft, Abdomen, Obese Renal/: Yes: WNL, Mathews Present Edema: Yes Edema: LLE: 2+, RLE: 2+ Neurological: Yes: Oriented Psychiatric: Yes: Oriented Labs: CBC, BMP 04/05/18 06:00 04/05/18 06:00 Laboratory Tests 04/05/18 06:00 Sodium 137 Potassium 3.7 Chloride 98 Carbon Dioxide 31 Anion Gap 7 L Creatinine 0.4 L Imaging - Results Chest X-ray: Report Reviewed Problem List - Problems (1) BPH (benign prostatic hyperplasia) Code(s): N40.0 - BENIGN PROSTATIC HYPERPLASIA WITHOUT LOWER URINRY TRACT SYMP (2) Azotemia Code(s): R79.89 - OTHER SPECIFIED ABNORMAL FINDINGS OF BLOOD CHEMISTRY Assessment/Plan Current Medications Generic Name Dose Route Start Last Admin Trade Name Spike PRN Reason Stop Dose Admin Amino Acids 30 ml 04/06/18 08:00 04/06/18 08:45 Prosource No Carb Liquid Pkt PO 30 ml BID@0800,1730 [facility] Administration Apixaban 2.5 mg 04/04/18 10:00 04/06/18 09:45 Eliquis - PO 2.5 mg BID [facility] Administration Ascorbic Acid 500 mg 04/04/18 10:00 04/06/18 09:45 Vitamin C - PO 500 mg DAILY [facility] Administration Budesonide/Formoterol Fumarate 1 puff 04/04/18 10:00 04/06/18 09:46 Symbicort 160/4.5mcg - IH 1 puff BID [facility] Administration Cholecalciferol 1,000 unit 04/04/18 10:00 04/06/18 09:45 Vitamin D3 - PO 1,000 unit DAILY [facility] Administration Cyanocobalamin 1,000 mcg 04/04/18 10:00 04/06/18 09:46 Vitamin B12 - PO 1,000 mcg DAILY [facility] Administration Finasteride 5 mg 04/04/18 10:00 04/06/18 09:45 Proscar - PO 5 mg DAILY [facility] Administration Folic Acid 1 mg 04/04/18 10:00 04/06/18 09:46 Folic Acid - PO 1 mg DAILY [facility] Administration Gabapentin 200 mg 04/04/18 06:00 04/06/18 13:35 Neurontin - PO 200 mg TID [facility] Administration Lactated Ringer's 1,000 ml in 1,000 mls @ 83 mls/hr 04/04/18 03:00 04/06/18 03:30 Lactated Ringers Solution IV 83 mls/hr ASDIR [facility] Administration Vancomycin HCl 1,250 mg/ 250 mls @ 166.667 mls/hr 04/05/18 18:00 04/06/18 06: 06 Dextrose IVPB 166.667 mls/hr BID@0600,1800 [facility] Administration Protocol Sodium Chloride 1,000 mls @ 83 mls/hr 04/06/18 10:00 04/06/18 09:46 Normal Saline - IV Not Given ASDIR [facility] Insulin Aspart 1 vial 04/04/18 07:00 04/06/18 11:58 Novolog Vial Sliding Scale - SQ Not Given ACHS [facility] Protocol [id number] Ethyl Esters 1 gm 04/04/18 10:00 04/06/18 09:46 Lovaza - PO 1 gm DAILY [facility] Administration Oxycodone HCl 10 mg 04/04/18 14:55 04/06/18 14:43 Roxicodone - PO 10 mg Q6H PRN Administration PAIN LEVEL 7 - 10 Pantoprazole Sodium 20 mg 04/04/18 10:00 04/06/18 09:45 Protonix - PO 20 mg DAILY [facility] Administration Polyethylene Glycol 17 gm 04/04/18 10:00 04/06/18 11:27 Miralax (For Daily Use) - PO 17 gm DAILY [facility] Administration Saliva Substitute 1 applic 04/04/18 06:00 04/06/18 13:35 Mouthkote Solution - MM 1 applic TID [facility] Administration Tamsulosin HCl 0.8 mg 04/04/18 08:30 04/06/18 08:45 Flomax - PO 0.8 mg DAILY@0830 [facility] Administration Zinc Sulfate 220 mg 04/04/18 10:00 04/06/18 09:45 Orazinc - PO 220 mg DAILY [facility] Administration Impression 1. proteinuria 2. CHF 3. obstructive sleep apnea 4. obesity 5. DM 6. HTN 7. hyperlipidemia 8. resp failure requiring bipap 9. toe infection Plan - stop fluids - check bmp - repeat ua - start torsemide - monitor volume status
[2018-04-06] MEDS ORDERED: TORSEMIDE 20 MG TABLET (FP) PO ONE (15:06)
[2018-04-06 16:22] LABS: URINE APPEARANCE CLOUDY; URINE BILIRUBIN NEGATIVE (<2.0 mg/dL); URINE COLOR AMBER; URINE GLUCOSE (UA) NEGATIVE (NEGATIVE); URINE KETONE NEGATIVE (NEGATIVE); URINE LEUK ESTERASE TRACE (NEGATIVE); URINE NITRITE NEGATIVE (NEGATIVE); URINE UROBILINOGEN NEGATIVE mg/dL (0.2-1.0)
[2018-04-06 16:29] LABS: URINE PROTEIN 1+ (NEGATIVE)
[2018-04-06 16:57] LABS: EPI CELLS RARE /HPF (FEW); URINE BACTERIA MODERATE /hpf (NONE SEEN); URINE MUCUS RARE
[2018-04-07] MEDS: oxyCODONE HCL 5 MG TABLET PO PRN ×2 (01:01→18:14)
[2018-04-07] MEDS: INSULIN SLIDING SCALE (NOVOLOG) 1 VIAL SQ SCH ×4 (06:57→22:52)
[2018-04-07] MEDS: GABAPENTIN 100 MG CAPSULE (FP) PO SCH ×3 (06:57→22:46)
[2018-04-07] MEDS: LYTES/YERBA SANTA 240 ML BOTTLE MM SCH ×3 (06:57→22:45)
[2018-04-07] MEDS: VANCOMYCIN 1,250 MG in DEXTROSE 5%-WATER - 250 ML IVPB SCH ×2 (06:58→17:57)
[2018-04-07 08:05] LABS: ALBUMIN 1.6 g/dl (3.4-5.0); ALK PHOS 89 U/L (45-117); ANION GAP 9 MMOL/L (8-16); BILIRUBIN,TOTAL 0.8 mg/dL (0.2-1); BLOOD UREA NITROGEN 15 mg/dL (7-18); CALCIUM 8.5 mg/dL (8.5-10.1); CHLORIDE 98 mmol/L (98-107); CO2 33 mmol/L (21-32); CREATININE 0.7 mg/dL (0.55-1.3); GLUCOSE,RANDOM 77 mg/dL (74-106); POTASSIUM 3.8 mmol/L (3.5-5.1); SGOT/AST 23 U/L (15-37); SGPT/ALT 13 U/L (13-61); SODIUM 139 mmol/L (136-145); TOT PROT 5.5 g/dl (6.4-8.2)
[2018-04-07] MEDS: AMINO ACIDS/PROTEIN HYDROLYS 30 ML LIQUID.PKT PO SCH ×2 (09:44→17:57)
[2018-04-07] MEDS: CYANOCOBALAMIN 1,000 MCG TABLET (FP) PO SCH (09:45)
[2018-04-07] MEDS: APIXABAN 2.5 MG TABLET PO SCH ×2 (09:45→22:46)
[2018-04-07] MEDS: TAMSULOSIN HCL 0.4 MG CAP.ER.24H (FP) PO SCH (09:45)
[2018-04-07] MEDS: CHOLECALCIFEROL (VITAMIN D3) 1,000 UNIT TABLET (FP) PO SCH (09:45)
[2018-04-07] MEDS: ASCORBIC ACID 500 MG TABLET (FP) PO SCH (09:45)
[2018-04-07] MEDS: FOLIC ACID 1 MG TABLET (FP) PO SCH (09:46)
[2018-04-07] MEDS: ZINC SULFATE 220 MG CAPSULE (FP) PO SCH (09:46)
[2018-04-07] MEDS: OMEGA-3 ACID ETHYL ESTERS (FATTY-ACIDS) 1 GM CAPSULE (FP) PO SCH (09:46)
[2018-04-07] MEDS: POLYETHYLENE GLYCOL 3350 119 GM BTL PO SCH (09:46)
[2018-04-07] MEDS: FINASTERIDE 5 MG TABLET (FP) PO SCH (09:46)
[2018-04-07] MEDS: PANTOPRAZOLE 20 MG TABLET (FP) PO SCH (09:50)
[2018-04-07] MEDS: BUDESONIDE/FORMETEROL FUMARATE 160/4.5 mcg INHALER IH SCH ×2 (09:50→22:52)
--- NOTE | 2018-04-07 11:17 | PN ---
Progress Note (short form) - Note Progress Note: PULMONARY WELL KNOWN TO OUR SERVICE VSS ANICTERIC DISTANT BUT CLEAR S1S2 OBESE INGROWN TOENAIL LABS/MEDS/NOTES/IMAGES REVIEWED Ingrown Nail COPD Chronic Hypoxic Respiratory Failure Obstructive Sleep Apnea LV Diastolic Dysfunction Atrial Fibrillation HTN DM - incentive spirometry - inhaled bronchodilators - O2 to keep SpO2 >90% - can defer systemic steroids at this time - offered BiPAP at night for his LUCY but currently declining - rate control - continue anticoagulation Benson VASQUEZ MD
--- NOTE | 2018-04-07 14:56 | DS ---
Physical Examination Vital Signs: Vital Signs Temperature 98.2 F 04/07/18 10:02 Pulse Rate 101 H 04/07/18 10:02 Respiratory Rate 18 04/07/18 10:02 Blood Pressure 108/57 L 04/07/18 10:02 O2 Sat by Pulse Oximetry (%) 98 04/04/18 21:00 Findings/Remarks: in bed denies chest pain, sob is controlled with 02 support and nebs. patient having muscle weakness for many months Constitutional: Yes: Mild Distress Eyes: Yes: WNL HENT: Yes: WNL Neck: Yes: WNL Cardiovascular: Yes: Pulse Irregular Respiratory: Yes: Diminished, On Nasal O2 Gastrointestinal: Yes: WNL Renal/: Yes: Incontinence Musculoskeletal: Yes: Muscle Weakness Extremities: Yes: Deformity Edema: Yes Peripheral Pulses WNL: Yes Integumentary: Yes: Pressure Ulcer (on toe with infected ingrown toenail) Neurological: Yes: Pre-Existing Deficit, Weakness ...Motor Strength: LLE, RLE Psychiatric: Yes: WNL Labs: CBC, BMP 04/05/18 06:00 04/07/18 06:00 Discharge Summary Reason For Visit: TYPE 2 DIABETES MELLITUS WITH FOOT ULCER Current Active Problems BPH (benign prostatic hyperplasia) (Acute) ESBL E. coli carrier (Acute) Ingrowing toenail with infection (Acute) MRSA colonization (Acute) Type 2 diabetes mellitus with foot ulcer (Acute) Muscle weakness Procedures: Principal: cxr/labs/cx Hospital Course: admitted for muscle weakness, toe infection, dm, copd/asthma given iv abx , blood cx checked, pt eval for weakess. will need outpatient podiatry and aggressive Physical therapy. Condition: Stable - Instructions Diet, Activity, Other Instructions: aggressive physical therapy podiatry follow up with Dr Ewing Referrals: Bo Desai MD [Primary Care Provider] - Disposition: LONGTERM FACILITY - Home Medications Comprehensive Discharge Medication List: Ambulatory Orders Acetaminophen [Tylenol] 325 mg PO Q6H PRN 04/03/18 Amino Acids/Protein Hydrolys [Pro-Stat Liquid] 30 ml PO BID 04/03/18 Apixaban [Eliquis] 5 mg PO DAILY 04/03/18 Ascorbic Acid [Vitamin C] 500 mg PO DAILY 04/03/18 Budesonide/Formeterol Fumarate [SYMBICORT 160/4.5mcg -] 1 inh PO BID 04/03/18 Cephalexin [Keflex] 250 mg PO Q6H 04/03/18 Cholecalciferol (Vitamin D3) [Vitamin D3] 1,000 unit PO DAILY 04/03/18 Cran/Vitc/Mannose/Fos/Bromeln [Uti-Stat Liquid] 30 ml PO TID 04/03/18 Cyanocobalamin [Vitamin B12 -] 1,000 mcg PO DAILY 04/03/18 Digoxin 125 mcg PO ASDIR 04/03/18 Digoxin 125 mcg PO ASDIR 04/03/18 Finasteride 5 mg PO DAILY 04/03/18 Folic Acid 1 mg PO DAILY 04/03/18 Gabapentin 200 mg PO TID 04/03/18 Methylphenidate HCl [Ritalin LA] 5 mg PO DAILY 04/03/18 [place]-3 Fatty Acids [[place]-3] 1,000 mg PO DAILY 04/03/18 Omeprazole 20 mg PO DAILY 04/03/18 Polyethylene Glycol 3350 [Miralax (For Daily Use) -] 17 gm PO DAILY 04/03/18 Potassium Citrate [Potassium Citrate ER] 10 meq PO DAILY 04/03/18 Saliva Substitute Combo No.9 [Biotene] 30 ml MM TID 04/03/18 Tamsulosin HCl [Flomax] 0.8 mg PO DAILY 04/03/18 Zinc Sulfate 220 mg PO DAILY 04/03/18
--- NOTE | 2018-04-07 15:08 | PN ---
Progress Note, Physician History of Present Illness: Pt seen and examined at bedside. He is awake and alert. He denies shortness of breath. - Current Medication List Current Medications: Active Medications Amino Acids (Prosource No Carb Liquid Pkt) 30 ml PO BID@0800,1730 [facility] Last Admin: 04/07/18 09:44 Dose: 30 ml Apixaban (Eliquis -) 2.5 mg PO BID [facility] Last Admin: 04/07/18 09:45 Dose: 2.5 mg Ascorbic Acid (Vitamin C -) 500 mg PO DAILY [facility] Last Admin: 04/07/18 09:45 Dose: 500 mg Budesonide/Formoterol Fumarate (Symbicort 160/4.5mcg -) 1 puff IH BID [facility] Last Admin: 04/07/18 09:50 Dose: 1 puff Cholecalciferol (Vitamin D3 -) 1,000 unit PO DAILY [facility] Last Admin: 04/07/18 09:45 Dose: 1,000 unit Cyanocobalamin (Vitamin B12 -) 1,000 mcg PO DAILY [facility] Last Admin: 04/07/18 09:45 Dose: 1,000 mcg Finasteride (Proscar -) 5 mg PO DAILY [facility] Last Admin: 04/07/18 09:46 Dose: 5 mg Folic Acid (Folic Acid -) 1 mg PO DAILY [facility] Last Admin: 04/07/18 09:46 Dose: 1 mg Gabapentin (Neurontin -) 200 mg PO TID [facility] Last Admin: 04/07/18 14:44 Dose: 200 mg Vancomycin HCl 1,250 mg/ (Dextrose) 250 mls @ 166.667 mls/hr IVPB BID@0600, 1800 [facility]; Protocol Last Admin: 04/07/18 06:58 Dose: 166.667 mls/hr Insulin Aspart (Novolog Vial Sliding Scale -) 1 vial SQ ACHS [facility]; Protocol Last Admin: 04/07/18 14:12 Dose: Not Given [id number]-9-[id number] Ethyl Esters (Lovaza -) 1 gm PO DAILY [facility] Last Admin: 04/07/18 09:46 Dose: 1 gm Oxycodone HCl (Roxicodone -) 10 mg PO Q6H PRN PRN Reason: PAIN LEVEL 7 - 10 Last Admin: 04/07/18 01:01 Dose: 10 mg Pantoprazole Sodium (Protonix -) 20 mg PO DAILY [facility] Last Admin: 04/07/18 09:50 Dose: 20 mg Polyethylene Glycol (Miralax (For Daily Use) -) 17 gm PO DAILY [facility] Last Admin: 04/07/18 09:46 Dose: 17 gm Saliva Substitute (Mouthkote Solution -) 1 applic MM TID [facility] Last Admin: 04/07/18 14:44 Dose: 1 applic Tamsulosin HCl (Flomax -) 0.8 mg PO DAILY@0830 [facility] Last Admin: 04/07/18 09:45 Dose: 0.8 mg Zinc Sulfate (Orazinc -) 220 mg PO DAILY [facility] Last Admin: 04/07/18 09:46 Dose: 220 mg - Objective Vital Signs: Vital Signs Temperature 98.2 F 04/07/18 10:02 Pulse Rate 101 H 04/07/18 10:02 Respiratory Rate 18 04/07/18 10:02 Blood Pressure 108/57 L 04/07/18 10:02 O2 Sat by Pulse Oximetry (%) 98 04/04/18 21:00 Constitutional: Yes: Calm Eyes: Yes: Conjunctiva Clear HENT: Yes: Atraumatic Neck: Yes: Supple Cardiovascular: Yes: S1, S2 Respiratory: Yes: On Nasal O2 Gastrointestinal: Yes: Soft Genitourinary: Yes: WNL Edema: Yes Edema: LLE: 1+, RLE: 1+ Neurological: Yes: Oriented Psychiatric: Yes: Oriented Labs: CBC, BMP 04/05/18 06:00 04/07/18 06:00 INR, PTT INR 1.52 (0.83-1.09) H 04/03/18 16:45 Problem List - Problems (1) BPH (benign prostatic hyperplasia) Code(s): N40.0 - BENIGN PROSTATIC HYPERPLASIA WITHOUT LOWER URINRY TRACT SYMP (2) Azotemia Code(s): R79.89 - OTHER SPECIFIED ABNORMAL FINDINGS OF BLOOD CHEMISTRY Assessment/Plan Current Medications Generic Name Dose Route Start Last Admin Trade Name Spike PRN Reason Stop Dose Admin Amino Acids 30 ml 04/06/18 08:00 04/07/18 09:44 Prosource No Carb Liquid Pkt PO 30 ml BID@0800,1730 [facility] Administration Apixaban 2.5 mg 04/04/18 10:00 04/07/18 09:45 Eliquis - PO 2.5 mg BID AR[facility] Administration Ascorbic Acid 500 mg 04/04/18 10:00 04/07/18 09:45 Vitamin C - PO 500 mg DAILY [facility] Administration Budesonide/Formoterol Fumarate 1 puff 04/04/18 10:00 04/07/18 09:50 Symbicort 160/4.5mcg - IH 1 puff BID [facility] Administration Cholecalciferol 1,000 unit 04/04/18 10:00 04/07/18 09:45 Vitamin D3 - PO 1,000 unit DAILY [facility] Administration Cyanocobalamin 1,000 mcg 04/04/18 10:00 04/07/18 09:45 Vitamin B12 - PO 1,000 mcg DAILY [facility] Administration Finasteride 5 mg 04/04/18 10:00 04/07/18 09:46 Proscar - PO 5 mg DAILY [facility] Administration Folic Acid 1 mg 04/04/18 10:00 04/07/18 09:46 Folic Acid - PO 1 mg DAILY [facility] Administration Gabapentin 200 mg 04/04/18 06:00 04/07/18 14:44 Neurontin - PO 200 mg TID ARVIND Administration Vancomycin HCl 1,250 mg/ 250 mls @ 166.667 mls/hr 04/05/18 18:00 04/07/18 06: 58 Dextrose IVPB 166.667 mls/hr BID@0600,1800 [facility] Administration Protocol Insulin Aspart 1 vial 04/04/18 07:00 04/07/18 14:12 Novolog Vial Sliding Scale - SQ Not Given ACHS [facility] Protocol Rzuyo-4-Gigq Ethyl Esters 1 gm 04/04/18 10:00 04/07/18 09:46 Lovaza - PO 1 gm DAILY [facility] Administration Oxycodone HCl 10 mg 04/04/18 14:55 04/07/18 01:01 Roxicodone - PO 10 mg Q6H PRN Administration PAIN LEVEL 7 - 10 Pantoprazole Sodium 20 mg 04/04/18 10:00 04/07/18 09:50 Protonix - PO 20 mg DAILY [facility] Administration Polyethylene Glycol 17 gm 04/04/18 10:00 04/07/18 09:46 Miralax (For Daily Use) - PO 17 gm DAILY [facility] Administration Saliva Substitute 1 applic 04/04/18 06:00 04/07/18 14:44 Mouthkote Solution - MM 1 applic TID AR[facility]IND Administration Tamsulosin HCl 0.8 mg 04/04/18 08:30 04/07/18 09:45 Flomax - PO 0.8 mg DAILY@0830 [facility] Administration Zinc Sulfate 220 mg 04/04/18 10:00 04/07/18 09:46 Orazinc - PO 220 mg DAILY [facility] Administration Impression 1. proteinuria 2. CHF 3. obstructive sleep apnea 4. obesity 5. DM 6. HTN 7. hyperlipidemia 8. resp failure requiring bipap 9. toe infection Plan - restart torsemide - monitor lytes and volume status - encourage PO intake - cont protein supplements - repeat ua reviewed
[2018-04-07] MEDS ORDERED: POTASSIUM CHLORIDE TABS 20 MEQ TABLET.ER (FP) PO ONE (15:09)
[2018-04-07] MEDS: TORSEMIDE 20 MG TABLET (FP) PO SCH (17:57)
[2018-04-07] MEDS ORDERED: PT OWN MED DRAWER 7, Y5N ONE (18:12)
[2018-04-08] MEDS: LYTES/YERBA SANTA 240 ML BOTTLE MM SCH ×3 (06:41→23:04)
[2018-04-08] MEDS: VANCOMYCIN 1,250 MG in DEXTROSE 5%-WATER - 250 ML IVPB SCH ×3 (06:41→18:28)
[2018-04-08] MEDS: GABAPENTIN 100 MG CAPSULE (FP) PO SCH ×3 (06:42→22:57)
[2018-04-08] MEDS: oxyCODONE HCL 5 MG TABLET PO PRN (06:46)
[2018-04-08] MEDS: INSULIN SLIDING SCALE (NOVOLOG) 1 VIAL SQ SCH ×4 (06:47→23:04)
[2018-04-08] MEDS: AMINO ACIDS/PROTEIN HYDROLYS 30 ML LIQUID.PKT PO SCH ×2 (09:58→18:00)
[2018-04-08] MEDS: ZINC SULFATE 220 MG CAPSULE (FP) PO SCH (09:59)
[2018-04-08] MEDS: CHOLECALCIFEROL (VITAMIN D3) 1,000 UNIT TABLET (FP) PO SCH (09:59)
[2018-04-08] MEDS: TORSEMIDE 20 MG TABLET (FP) PO SCH (09:59)
[2018-04-08] MEDS: TAMSULOSIN HCL 0.4 MG CAP.ER.24H (FP) PO SCH (09:59)
[2018-04-08] MEDS: PANTOPRAZOLE 20 MG TABLET (FP) PO SCH (09:59)
[2018-04-08] MEDS: FOLIC ACID 1 MG TABLET (FP) PO SCH (09:59)
[2018-04-08] MEDS: FINASTERIDE 5 MG TABLET (FP) PO SCH (09:59)
[2018-04-08] MEDS: OMEGA-3 ACID ETHYL ESTERS (FATTY-ACIDS) 1 GM CAPSULE (FP) PO SCH (09:59)
[2018-04-08] MEDS: ASCORBIC ACID 500 MG TABLET (FP) PO SCH (09:59)
[2018-04-08] MEDS: APIXABAN 2.5 MG TABLET PO SCH ×2 (09:59→22:57)
[2018-04-08] MEDS: BUDESONIDE/FORMETEROL FUMARATE 160/4.5 mcg INHALER IH SCH ×2 (10:00→22:56)
[2018-04-08] MEDS: CYANOCOBALAMIN 1,000 MCG TABLET (FP) PO SCH (10:00)
[2018-04-08] MEDS: POLYETHYLENE GLYCOL 3350 119 GM BTL PO SCH (10:00)
--- NOTE | 2018-04-08 11:11 | PN ---
Progress Note (short form) - Note Progress Note: PULMONARY Denies shortness of breath or chest pain. Vital Signs Period Temp Pulse Resp BP Sys/Park Pulse Ox Last 24 Hr 97.6 F-98.1 F 99-108 18-20 88-105/60-73 96 Gen: NAD at rest Heart: RRR Lung: decreased breath sounds at the bases Abd: soft, nontender Ext: no edema CBC, BMP 04/05/18 06:00 04/07/18 06:00 Active Medications Amino Acids (Prosource No Carb Liquid Pkt) 30 ml PO BID@0800,1730 [facility] Last Admin: 04/08/18 09:58 Dose: 30 ml Apixaban (Eliquis -) 2.5 mg PO BID [facility] Last Admin: 04/08/18 09:59 Dose: 2.5 mg Ascorbic Acid (Vitamin C -) 500 mg PO DAILY [facility] Last Admin: 04/08/18 09:59 Dose: 500 mg Budesonide/Formoterol Fumarate (Symbicort 160/4.5mcg -) 1 puff IH BID [facility] Last Admin: 04/08/18 10:00 Dose: 1 puff Cholecalciferol (Vitamin D3 -) 1,000 unit PO DAILY [facility] Last Admin: 04/08/18 09:59 Dose: 1,000 unit Cyanocobalamin (Vitamin B12 -) 1,000 mcg PO DAILY [facility] Last Admin: 04/08/18 10:00 Dose: 1,000 mcg Finasteride (Proscar -) 5 mg PO DAILY [facility] Last Admin: 04/08/18 09:59 Dose: 5 mg Folic Acid (Folic Acid -) 1 mg PO DAILY [facility] Last Admin: 04/08/18 09:59 Dose: 1 mg Gabapentin (Neurontin -) 200 mg PO TID [facility] Last Admin: 04/08/18 06:42 Dose: 200 mg Vancomycin HCl 1,250 mg/ (Dextrose) 250 mls @ 166.667 mls/hr IVPB BID@0600, 1800 [facility]; Protocol Last Admin: 04/08/18 06:41 Dose: 166.667 mls/hr Insulin Aspart (Novolog Vial Sliding Scale -) 1 vial SQ ACHS [facility]; Protocol Last Admin: 04/08/18 06:47 Dose: Not Given Daurq-4-Ckol Ethyl Esters (Lovaza -) 1 gm PO DAILY [facility] Last Admin: 04/08/18 09:59 Dose: 1 gm Oxycodone HCl (Roxicodone -) 10 mg PO Q6H PRN PRN Reason: PAIN LEVEL 7 - 10 Last Admin: 04/08/18 06:46 Dose: 10 mg Pantoprazole Sodium (Protonix -) 20 mg PO DAILY [facility] Last Admin: 04/08/18 09:59 Dose: 20 mg Polyethylene Glycol (Miralax (For Daily Use) -) 17 gm PO DAILY [facility] Last Admin: 04/08/18 10:00 Dose: Not Given Saliva Substitute (Mouthkote Solution -) 1 applic MM TID [facility] Last Admin: 04/08/18 06:41 Dose: Not Given Tamsulosin HCl (Flomax -) 0.8 mg PO DAILY@0830 [facility] Last Admin: 04/08/18 09:59 Dose: 0.8 mg Torsemide (Demadex -) 20 mg PO DAILY [facility] Last Admin: 04/08/18 09:59 Dose: 20 mg Zinc Sulfate (Orazinc -) 220 mg PO DAILY [facility] Last Admin: 04/08/18 09:59 Dose: 220 mg A/P Ingrown Nail COPD Chronic Hypoxic Respiratory Failure Obstructive Sleep Apnea LV Diastolic Dysfunction Atrial Fibrillation HTN DM - incentive spirometry - inhaled bronchodilators - O2 to keep SpO2 >90% - can defer systemic steroids at this time - offered BiPAP at night for his LUCY but currently declining - rate control - continue anticoagulation Problem List - Problems (1) Ingrowing toenail with infection Code(s): L60.0 - INGROWING NAIL (2) Chronic respiratory failure with hypoxia Code(s): J96.11 - CHRONIC RESPIRATORY FAILURE WITH HYPOXIA (3) Atrial fibrillation Code(s): I48.91 - UNSPECIFIED ATRIAL FIBRILLATION Qualifiers: Atrial fibrillation type: chronic Qualified Code(s): I48.2 - Chronic atrial fibrillation (4) COPD (chronic obstructive pulmonary disease) Code(s): J44.9 - CHRONIC OBSTRUCTIVE PULMONARY DISEASE, UNSPECIFIED Qualifiers: COPD type: unspecified COPD Qualified Code(s): J44.9 - Chronic obstructive pulmonary disease, unspecified (5) Diabetes mellitus Code(s): E11.9 - TYPE 2 DIABETES MELLITUS WITHOUT COMPLICATIONS Qualifiers: Diabetes mellitus type: type 2 (6) HTN (hypertension) Code(s): I10 - ESSENTIAL (PRIMARY) HYPERTENSION (7) Obesity Code(s): E66.9 - OBESITY, UNSPECIFIED Qualifiers: Obesity classification: adult class 3 (BMI >= 40)
--- NOTE | 2018-04-08 11:39 | PN ---
Progress Note, Physician - Current Medication List Current Medications: Active Medications Amino Acids (Prosource No Carb Liquid Pkt) 30 ml PO BID@0800,1730 [facility] Last Admin: 04/08/18 09:58 Dose: 30 ml Apixaban (Eliquis -) 2.5 mg PO BID [facility] Last Admin: 04/08/18 09:59 Dose: 2.5 mg Ascorbic Acid (Vitamin C -) 500 mg PO DAILY [facility] Last Admin: 04/08/18 09:59 Dose: 500 mg Budesonide/Formoterol Fumarate (Symbicort 160/4.5mcg -) 1 puff IH BID [facility] Last Admin: 04/08/18 10:00 Dose: 1 puff Cholecalciferol (Vitamin D3 -) 1,000 unit PO DAILY [facility] Last Admin: 04/08/18 09:59 Dose: 1,000 unit Cyanocobalamin (Vitamin B12 -) 1,000 mcg PO DAILY [facility] Last Admin: 04/08/18 10:00 Dose: 1,000 mcg Finasteride (Proscar -) 5 mg PO DAILY [facility] Last Admin: 04/08/18 09:59 Dose: 5 mg Folic Acid (Folic Acid -) 1 mg PO DAILY [facility] Last Admin: 04/08/18 09:59 Dose: 1 mg Gabapentin (Neurontin -) 200 mg PO TID [facility] Last Admin: 04/08/18 06:42 Dose: 200 mg Vancomycin HCl 1,250 mg/ (Dextrose) 250 mls @ 166.667 mls/hr IVPB BID@0600, 1800 [facility]; Protocol Last Admin: 04/08/18 06:41 Dose: 166.667 mls/hr Insulin Aspart (Novolog Vial Sliding Scale -) 1 vial SQ ACHS [facility]; Protocol Last Admin: 04/08/18 06:47 Dose: Not Given Dtqqr-4-Lzpd Ethyl Esters (Lovaza -) 1 gm PO DAILY [facility] Last Admin: 04/08/18 09:59 Dose: 1 gm Oxycodone HCl (Roxicodone -) 10 mg PO Q6H PRN PRN Reason: PAIN LEVEL 7 - 10 Last Admin: 04/08/18 06:46 Dose: 10 mg Pantoprazole Sodium (Protonix -) 20 mg PO DAILY [facility] Last Admin: 04/08/18 09:59 Dose: 20 mg Polyethylene Glycol (Miralax (For Daily Use) -) 17 gm PO DAILY [facility] Last Admin: 04/08/18 10:00 Dose: Not Given Saliva Substitute (Mouthkote Solution -) 1 applic MM TID [facility] Last Admin: 04/08/18 06:41 Dose: Not Given Tamsulosin HCl (Flomax -) 0.8 mg PO DAILY@0830 [facility] Last Admin: 04/08/18 09:59 Dose: 0.8 mg Torsemide (Demadex -) 20 mg PO DAILY [facility] Last Admin: 04/08/18 09:59 Dose: 20 mg Zinc Sulfate (Orazinc -) 220 mg PO DAILY [facility] Last Admin: 04/08/18 09:59 Dose: 220 mg - Objective Vital Signs: Vital Signs Temperature 97.7 F 04/08/18 10:00 Pulse Rate 99 H 04/08/18 10:00 Respiratory Rate 18 04/08/18 10:00 Blood Pressure 93/62 04/08/18 10:00 O2 Sat by Pulse Oximetry (%) 96 04/07/18 21:00 Labs: CBC, BMP 04/05/18 06:00 04/07/18 06:00 INR, PTT INR 1.52 (0.83-1.09) H 04/03/18 16:45 Problem List - Problems (1) Leg pain Assessment/Plan: -Xray knee and hip -ortho -PT Code(s): M79.606 - PAIN IN LEG, UNSPECIFIED (2) BPH (benign prostatic hyperplasia) Assessment/Plan: flomax and finastride Code(s): N40.0 - BENIGN PROSTATIC HYPERPLASIA WITHOUT LOWER URINRY TRACT SYMP (3) ESBL E. coli carrier Code(s): Z22.39 - CARRIER OF OTHER SPECIFIED BACTERIAL DISEASES (4) Ingrowing toenail with infection Code(s): L60.0 - INGROWING NAIL (5) Type 2 diabetes mellitus with foot ulcer Assessment/Plan: podiatry ID [place] abx MRI of foot to r/o osteo cultures Microbiology 04/03/18 16:48 Blood - Peripheral Venous Blood Culture - Preliminary NO GROWTH OBTAINED AFTER 96 HOURS, INCUBATION TO CONTINUE FOR 1 DAYS. 04/03/18 16:48 Blood - Peripheral Venous Blood Culture - Preliminary NO GROWTH OBTAINED AFTER 96 HOURS, INCUBATION TO CONTINUE FOR 1 DAYS. 04/03/18 22:10 Urine - Urine - Catheterized Urine Culture - Final Enterococcus Faecalis bgm sliding scale neurontin tid Code(s): E11.621 - TYPE 2 DIABETES MELLITUS WITH FOOT ULCER; L97.509 - NON- PRESSURE CHRONIC ULCER OTH PRT UNSP FOOT W UNSP SEVERITY (6) Atrial fibrillation Assessment/Plan: eliquis rate control- verampamil 240mg on hold given low BP HR ok for now Code(s): I48.91 - UNSPECIFIED ATRIAL FIBRILLATION Qualifiers: Atrial fibrillation type: chronic Qualified Code(s): I48.2 - Chronic atrial fibrillation (7) CHF (congestive heart failure) Code(s): I50.9 - HEART FAILURE, UNSPECIFIED (8) Edema Code(s): R60.9 - EDEMA, UNSPECIFIED (9) COPD (chronic obstructive pulmonary disease) Assessment/Plan: bronchodilators nasal oxygen 2 litre keep ox sat > 90 Code(s): J44.9 - CHRONIC OBSTRUCTIVE PULMONARY DISEASE, UNSPECIFIED Qualifiers: COPD type: unspecified COPD Qualified Code(s): J44.9 - Chronic obstructive pulmonary disease, unspecified
--- NOTE | 2018-04-08 15:37 | PN ---
Progress Note (short form) - Note Progress Note: covering dr farris Problems 1. proteinuria 2. CHF 3. obstructive sleep apnea 4. obesity 5. DM 6. HTN 7. hyperlipidemia 8. resp failure requiring bipap 9. toe infection Current Medications Amino Acids (Prosource No Carb Liquid Pkt) 30 ml PO BID@0800,1730 [facility] Last Admin: 04/08/18 09:58 Dose: 30 ml Apixaban (Eliquis -) 2.5 mg PO BID [facility] Last Admin: 04/08/18 09:59 Dose: 2.5 mg Ascorbic Acid (Vitamin C -) 500 mg PO DAILY [facility] Last Admin: 04/08/18 09:59 Dose: 500 mg Budesonide/Formoterol Fumarate (Symbicort 160/4.5mcg -) 1 puff IH BID [facility] Last Admin: 04/08/18 10:00 Dose: 1 puff Cholecalciferol (Vitamin D3 -) 1,000 unit PO DAILY [facility] Last Admin: 04/08/18 09:59 Dose: 1,000 unit Cyanocobalamin (Vitamin B12 -) 1,000 mcg PO DAILY [facility] Last Admin: 04/08/18 10:00 Dose: 1,000 mcg Finasteride (Proscar -) 5 mg PO DAILY [facility] Last Admin: 04/08/18 09:59 Dose: 5 mg Folic Acid (Folic Acid -) 1 mg PO DAILY [facility] Last Admin: 04/08/18 09:59 Dose: 1 mg Gabapentin (Neurontin -) 200 mg PO TID [facility] Last Admin: 04/08/18 14:25 Dose: 200 mg Vancomycin HCl 1,250 mg/ (Dextrose) 250 mls @ 166.667 mls/hr IVPB BID@0600, 1800 [facility]; Protocol Last Admin: 04/08/18 06:41 Dose: 166.667 mls/hr Insulin Aspart (Novolog Vial Sliding Scale -) 1 vial SQ ACHS [facility]; Protocol Last Admin: 04/08/18 12:45 Dose: Not Given Wajcf-3-Cwbj Ethyl Esters (Lovaza -) 1 gm PO DAILY [facility] Last Admin: 04/08/18 09:59 Dose: 1 gm Oxycodone HCl (Roxicodone -) 10 mg PO Q6H PRN PRN Reason: PAIN LEVEL 7 - 10 Last Admin: 04/08/18 06:46 Dose: 10 mg Pantoprazole Sodium (Protonix -) 20 mg PO DAILY [facility] Last Admin: 04/08/18 09:59 Dose: 20 mg Polyethylene Glycol (Miralax (For Daily Use) -) 17 gm PO DAILY [facility] Last Admin: 04/08/18 10:00 Dose: Not Given Saliva Substitute (Mouthkote Solution -) 1 applic MM TID [facility] Last Admin: 04/08/18 14:26 Dose: 1 applic Tamsulosin HCl (Flomax -) 0.8 mg PO DAILY@0830 [facility] Last Admin: 04/08/18 09:59 Dose: 0.8 mg Torsemide (Demadex -) 20 mg PO DAILY [facility] Last Admin: 04/08/18 09:59 Dose: 20 mg Zinc Sulfate (Orazinc -) 220 mg PO DAILY [facility] Last Admin: 04/08/18 09:59 Dose: 220 mg Last Vital Signs Temp Pulse Resp BP Pulse Ox 98.5 F 96 H 18 115/70 96 04/08/18 14:29 04/08/18 14:29 04/08/18 14:29 04/08/18 14:29 04/08/18 09:00 CBC, BMP 04/05/18 06:00 04/07/18 06:00
--- NOTE | 2018-04-08 19:29 | CON.ORTH ---
Consult Reason for Consultation:: right knee pain - Past Medical History Cardio/Vascular: Yes: AFIB, CHF, HTN, Hyperlipdemia, Pulmonary Hypertension Pulmonary: Yes: COPD, O2 Dependent, Pneumonia, Sleep Apnea Gastrointestinal: Yes: GERD Renal/: Yes: Renal Inusuff Infectious Disease: Yes: MRSA, Other (ecoli esbl bacteremia due to UTI, 09/25) Endocrine: Yes: Other (MORBIDLY OBESE) - Past Surgical History Past Surgical History: Yes: Tonsillectomy - Alcohol/Substance Use Hx Alcohol Use: No - Smoking History Smoking history: Former smoker Have you smoked in the past 12 months: No Aproximately how many cigarettes per day: 0 If you are a former smoker, when did you quit?: 6 years ago - Social History Usual Living Arrangement: Prison ADL: Independent Occupation: retired History of Recent Travel: No Home Medications - Allergies Allergies/Adverse Reactions: Allergies Allergy/AdvReac Type Severity Reaction Status Date / Time No Known Allergies Allergy Verified 04/03/18 15:29 - Home Medications Home Medications: Ambulatory Orders Acetaminophen [Tylenol] 325 mg PO Q6H PRN 04/03/18 Amino Acids/Protein Hydrolys [Pro-Stat Liquid] 30 ml PO BID 04/03/18 Apixaban [Eliquis] 5 mg PO DAILY 04/03/18 Ascorbic Acid [Vitamin C] 500 mg PO DAILY 04/03/18 Budesonide/Formeterol Fumarate [SYMBICORT 160/4.5mcg -] 1 inh PO BID 04/03/18 Cephalexin [Keflex] 250 mg PO Q6H 04/03/18 Cholecalciferol (Vitamin D3) [Vitamin D3] 1,000 unit PO DAILY 04/03/18 Cran/Vitc/Mannose/Fos/Bromeln [Uti-Stat Liquid] 30 ml PO TID 04/03/18 Cyanocobalamin [Vitamin B12 -] 1,000 mcg PO DAILY 04/03/18 Digoxin 125 mcg PO ASDIR 04/03/18 Digoxin 125 mcg PO ASDIR 04/03/18 Finasteride 5 mg PO DAILY 04/03/18 Folic Acid 1 mg PO DAILY 04/03/18 Gabapentin 200 mg PO TID 04/03/18 Methylphenidate HCl [Ritalin LA] 5 mg PO DAILY 04/03/18 [place]-3 Fatty Acids [[place]-3] 1,000 mg PO DAILY 04/03/18 Omeprazole 20 mg PO DAILY 04/03/18 Polyethylene Glycol 3350 [Miralax 119 gm Btl -] 17 gm PO DAILY 04/03/18 Potassium Citrate [Potassium Citrate ER] 10 meq PO DAILY 04/03/18 Saliva Substitute Combo No.9 [Biotene] 30 ml MM TID 04/03/18 Tamsulosin HCl [Flomax -] 0.8 mg PO DAILY 04/03/18 Zinc Sulfate 220 mg PO DAILY 04/03/18 Amino Acids/Protein Hydrolys [Prosource No Carb Liquid Pkt] 30 ml PO BID@0800, 1730 packet 04/08/18 Insulin Sliding Scale [Novolog Vial Sliding Scale -] 1 vial SQ ACHS units 04/08 Torsemide [Demadex -] 20 mg PO DAILY tablet 04/08/18 oxyCODONE HCL [Roxicodone -] 10 mg PO Q6H PRN tablet MDD 4 04/08/18 Physical Exam for Ortho Vital Signs: Vital Signs Temperature 97.9 F 04/08/18 18:00 Pulse Rate 97 H 04/08/18 18:00 Respiratory Rate 18 04/08/18 18:00 Blood Pressure 105/64 04/08/18 18:00 O2 Sat by Pulse Oximetry (%) 96 04/08/18 09:00 Labs: CBC, BMP 04/05/18 06:00 04/07/18 06:00 INR, PTT INR 1.52 (0.83-1.09) H 04/03/18 16:45 - Lower Extremity Knee: Yes: Right, Limited ROM, Pain, Other (mild swelling, no effusion, + ttp laterally, pt unable to flex knee ( has been this way for 3 years), calf soft, nt, nvi) Imaging - Results X-ray: Report Reviewed, Image Reviewed Assessment/Plan 73 y/o gentleman with a significant past medical history of HTN, CHF, AFIB, DM, and HLD who presented to ED from [place] c/o of severe pain in his right great toe. Was admitted for right toe infection. Pt has had chronic knee pain for many years. He had surgery many years ago. He has needed a TKR for at least the past 3 years but has not been able to schedule procedure. He has not been able to bend his knee for at least 3 years. Has had cortisone injections in the past with temporary relief. Denies any hip pain, fever, chills, N/V, Sob, or CP. 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 Gomez
[2018-04-09] MEDS: LYTES/YERBA SANTA 240 ML BOTTLE MM SCH ×3 (05:20→22:08)
[2018-04-09] MEDS: GABAPENTIN 100 MG CAPSULE (FP) PO SCH ×3 (05:24→22:08)
[2018-04-09] MEDS: VANCOMYCIN 1,250 MG in DEXTROSE 5%-WATER - 250 ML IVPB SCH (05:25)
[2018-04-09] MEDS: INSULIN SLIDING SCALE (NOVOLOG) 1 VIAL SQ SCH ×4 (06:33→22:22)
[2018-04-09] MEDS ORDERED: INSULIN (NOVOLOG) ASPART 100 UNITS/ML 10ML VIAL ONE (06:41)
[2018-04-09] MEDS: BUDESONIDE/FORMETEROL FUMARATE 160/4.5 mcg INHALER IH SCH ×2 (09:12→22:10)
[2018-04-09] MEDS: AMINO ACIDS/PROTEIN HYDROLYS 30 ML LIQUID.PKT PO SCH ×2 (09:12→19:25)
[2018-04-09] MEDS: POLYETHYLENE GLYCOL 3350 119 GM BTL PO SCH ×2 (09:12→22:09)
[2018-04-09] MEDS: CYANOCOBALAMIN 1,000 MCG TABLET (FP) PO SCH (09:12)
[2018-04-09] MEDS: FINASTERIDE 5 MG TABLET (FP) PO SCH (09:13)
[2018-04-09] MEDS: PANTOPRAZOLE 20 MG TABLET (FP) PO SCH (09:13)
[2018-04-09] MEDS: CHOLECALCIFEROL (VITAMIN D3) 1,000 UNIT TABLET (FP) PO SCH (09:13)
[2018-04-09] MEDS: TAMSULOSIN HCL 0.4 MG CAP.ER.24H (FP) PO SCH (09:13)
[2018-04-09] MEDS: ZINC SULFATE 220 MG CAPSULE (FP) PO SCH (09:13)
[2018-04-09] MEDS: APIXABAN 2.5 MG TABLET PO SCH ×3 (09:13→22:09)
[2018-04-09] MEDS: TORSEMIDE 20 MG TABLET (FP) PO SCH (09:14)
[2018-04-09] MEDS: FOLIC ACID 1 MG TABLET (FP) PO SCH (09:14)
[2018-04-09] MEDS: OMEGA-3 ACID ETHYL ESTERS (FATTY-ACIDS) 1 GM CAPSULE (FP) PO SCH (09:14)
[2018-04-09] MEDS: ASCORBIC ACID 500 MG TABLET (FP) PO SCH (09:14)
[2018-04-09] MEDS ORDERED: BISACODYL 5 MG TABLET.DR (FP) PO ONE (10:35)
--- NOTE | 2018-04-09 10:38 | PN ---
Progress Note, Physician - Current Medication List Current Medications: Active Medications Amino Acids (Prosource No Carb Liquid Pkt) 30 ml PO BID@0800,1730 [facility] Last Admin: 04/09/18 09:12 Dose: 30 ml Apixaban (Eliquis -) 5 mg PO BID [facility] Ascorbic Acid (Vitamin C -) 500 mg PO DAILY [facility] Last Admin: 04/09/18 09:14 Dose: 500 mg Bisacodyl (Dulcolax -) 10 mg PO ONCE ONE Stop: 04/09/18 10:36 Budesonide/Formoterol Fumarate (Symbicort 160/4.5mcg -) 1 puff IH BID [facility] Last Admin: 04/09/18 09:12 Dose: 1 puff Cholecalciferol (Vitamin D3 -) 1,000 unit PO DAILY [facility] Last Admin: 04/09/18 09:13 Dose: 1,000 unit Cyanocobalamin (Vitamin B12 -) 1,000 mcg PO DAILY [facility] Last Admin: 04/09/18 09:12 Dose: 1,000 mcg Finasteride (Proscar -) 5 mg PO DAILY [facility] Last Admin: 04/09/18 09:13 Dose: 5 mg Folic Acid (Folic Acid -) 1 mg PO DAILY [facility] Last Admin: 04/09/18 09:14 Dose: 1 mg Gabapentin (Neurontin -) 300 mg PO TID [facility] Insulin Aspart (Novolog Vial Sliding Scale -) 1 vial SQ ACHS [facility]; Protocol Last Admin: 04/09/18 06:33 Dose: Not Given Vxkxl-2-Pbts Ethyl Esters (Lovaza -) 1 gm PO DAILY [facility] Last Admin: 04/09/18 09:14 Dose: 1 gm Pantoprazole Sodium (Protonix -) 20 mg PO DAILY [facility] Last Admin: 04/09/18 09:13 Dose: 20 mg Polyethylene Glycol (Miralax (For Daily Use) -) 17 gm PO BID [facility] Saliva Substitute (Mouthkote Solution -) 1 applic MM TID [facility] Last Admin: 04/09/18 05:20 Dose: 1 applic Tamsulosin HCl (Flomax -) 0.8 mg PO DAILY@0830 [facility] Last Admin: 04/09/18 09:13 Dose: 0.8 mg Torsemide (Demadex -) 20 mg PO DAILY [facility] Last Admin: 04/09/18 09:14 Dose: 20 mg Trimethoprim/Sulfamethoxazole (Bactrim Ds -) 1 each PO BID [facility] Zinc Sulfate (Orazinc -) 220 mg PO DAILY [facility] Last Admin: 04/09/18 09:13 Dose: 220 mg - Objective Vital Signs: Vital Signs Temperature 97.7 F 04/09/18 10:00 Pulse Rate 96 H 04/09/18 10:00 Respiratory Rate 20 04/09/18 10:00 Blood Pressure 91/67 04/09/18 10:00 O2 Sat by Pulse Oximetry (%) 96 04/09/18 09:00 Cardiovascular: Yes: S1, S2 Respiratory: Yes: Regular, CTA Bilaterally Gastrointestinal: Yes: Normal Bowel Sounds, Soft. 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 04/03/18 16:48 Blood - Peripheral Venous Blood Culture - Preliminary NO GROWTH OBTAINED AFTER 96 HOURS, INCUBATION TO CONTINUE FOR 1 DAYS. 04/03/18 22:10 Urine - Urine - Catheterized Urine Culture - Final Enterococcus Faecalis bgm sliding scale neurontin tid Code(s): E11.621 - TYPE 2 DIABETES MELLITUS WITH FOOT ULCER; L97.509 - NON- PRESSURE CHRONIC ULCER OTH PRT UNSP FOOT W UNSP SEVERITY (6) Atrial fibrillation Assessment/Plan: eliquis 5 mg bid rate control- verampamil 240mg on hold given low BP HR ok for now Code(s): I48.91 - UNSPECIFIED ATRIAL FIBRILLATION Qualifiers: Atrial fibrillation type: chronic Qualified Code(s): I48.2 - Chronic atrial fibrillation (7) CHF (congestive heart failure) Code(s): I50.9 - HEART FAILURE, UNSPECIFIED (8) Edema Assessment/Plan: -R/o DVT -Maybe due to low albumin -dietary and supplements Code(s): R60.9 - EDEMA, UNSPECIFIED (9) COPD (chronic obstructive pulmonary disease) Assessment/Plan: bronchodilators nasal oxygen 2 litre keep ox sat > 90 Code(s): J44.9 - CHRONIC OBSTRUCTIVE PULMONARY DISEASE, UNSPECIFIED Qualifiers: COPD type: unspecified COPD Qualified Code(s): J44.9 - Chronic obstructive pulmonary disease, unspecified
[2018-04-09 11:28] LABS: BASO % 0.4 % (0-2.0); EOS % 2.1 % (0-4.5); HEMATOCRIT 32.7 % (35.4-49); HEMOGLOBIN 10.9 GM/dL (11.7-16.9); LYMPH % 15.8 % (8-40); MCH 31.7 pg (25.7-33.7); MCHC 33.2 g/dl (32.0-35.9); MEAN CELL VOLUME 95.5 fl (80-96); MEAN PLT VOLUME 8.2 fl (7.5-11.1); MONO % 9.9 % (3.8-10.2); NEUT % 71.8 % (42.8-82.8); PLATELET COUNT 379 K/MM3 (134-434); RBC 3.43 M/mm3 (4.00-5.60); RDW 15.2 % (11.9-15.9); WHITE BLOOD COUNT 9.7 K/mm3 (4.0-10.0)
[2018-04-09 12:21] LABS: ALBUMIN 1.5 g/dl (3.4-5.0); ALK PHOS 85 U/L (45-117); ANION GAP 7 MMOL/L (8-16); BILIRUBIN,TOTAL 0.6 mg/dL (0.2-1); BLOOD UREA NITROGEN 34 mg/dL (7-18); CALCIUM 7.9 mg/dL (8.5-10.1); CHLORIDE 98 mmol/L (98-107); CO2 33 mmol/L (21-32); CREATININE 1.4 mg/dL (0.55-1.3); GLUCOSE,RANDOM 95 mg/dL (74-106); POTASSIUM 3.8 mmol/L (3.5-5.1); PREALBUMIN 5.7 mg/dl (20-40); SGOT/AST 21 U/L (15-37); SGPT/ALT 11 U/L (13-61); SODIUM 138 mmol/L (136-145); TOT PROT 5.6 g/dl (6.4-8.2)
--- NOTE | 2018-04-09 13:14 | PN ---
Progress Note (short form) - Note Progress Note: PULMONARY Denies shortness of breath or chest pain. Vital Signs Period Temp Pulse Resp BP Sys/Park Pulse Ox Last 24 Hr 97.7 F-98.5 F 96-105 18-20 87-115/53-70 96-96 Gen: NAD at rest Heart: RRR Lung: decreased breath sounds at the bases Abd: soft, nontender Ext: no edema CBC, BMP 04/09/18 10:50 04/09/18 10:50 Active Medications Amino Acids (Prosource No Carb Liquid Pkt) 30 ml PO BID@0800,1730 [facility] Last Admin: 04/09/18 09:12 Dose: 30 ml Apixaban (Eliquis -) 5 mg PO BID [facility] Last Admin: 04/09/18 11:48 Dose: 2.5 mg Ascorbic Acid (Vitamin C -) 500 mg PO DAILY [facility] Last Admin: 04/09/18 09:14 Dose: 500 mg Budesonide/Formoterol Fumarate (Symbicort 160/4.5mcg -) 1 puff IH BID [facility] Last Admin: 04/09/18 09:12 Dose: 1 puff Cholecalciferol (Vitamin D3 -) 1,000 unit PO DAILY [facility] Last Admin: 04/09/18 09:13 Dose: 1,000 unit Cyanocobalamin (Vitamin B12 -) 1,000 mcg PO DAILY [facility] Last Admin: 04/09/18 09:12 Dose: 1,000 mcg Finasteride (Proscar -) 5 mg PO DAILY [facility] Last Admin: 04/09/18 09:13 Dose: 5 mg Folic Acid (Folic Acid -) 1 mg PO DAILY [facility] Last Admin: 04/09/18 09:14 Dose: 1 mg Gabapentin (Neurontin -) 300 mg PO TID [facility] Last Admin: 04/09/18 13:13 Dose: 300 mg Insulin Aspart (Novolog Vial Sliding Scale -) 1 vial SQ ACHS [facility]; Protocol Last Admin: 04/09/18 11:43 Dose: Not Given Kyeix-1-Hfpu Ethyl Esters (Lovaza -) 1 gm PO DAILY [facility] Last Admin: 04/09/18 09:14 Dose: 1 gm Pantoprazole Sodium (Protonix -) 20 mg PO DAILY [facility] Last Admin: 04/09/18 09:13 Dose: 20 mg Polyethylene Glycol (Miralax (For Daily Use) -) 17 gm PO BID [facility] Saliva Substitute (Mouthkote Solution -) 1 applic MM TID [facility] Last Admin: 04/09/18 13:13 Dose: 1 applic Tamsulosin HCl (Flomax -) 0.8 mg PO DAILY@0830 [facility] Last Admin: 04/09/18 09:13 Dose: 0.8 mg Torsemide (Demadex -) 20 mg PO DAILY [facility] Last Admin: 04/09/18 09:14 Dose: 20 mg Trimethoprim/Sulfamethoxazole (Bactrim Ds -) 1 each PO BID [facility] Zinc Sulfate (Orazinc -) 220 mg PO DAILY [facility] Last Admin: 04/09/18 09:13 Dose: 220 mg A/P Ingrown Nail COPD Chronic Hypoxic Respiratory Failure Obstructive Sleep Apnea LV Diastolic Dysfunction Atrial Fibrillation HTN DM - incentive spirometry - inhaled bronchodilators - O2 to keep SpO2 >90% - can defer systemic steroids at this time - offered BiPAP at night for his LUCY but currently declining - rate control - continue anticoagulation Problem List - Problems (1) Ingrowing toenail with infection Code(s): L60.0 - INGROWING NAIL (2) Chronic respiratory failure with hypoxia Code(s): J96.11 - CHRONIC RESPIRATORY FAILURE WITH HYPOXIA (3) Atrial fibrillation Code(s): I48.91 - UNSPECIFIED ATRIAL FIBRILLATION Qualifiers: Atrial fibrillation type: chronic Qualified Code(s): I48.2 - Chronic atrial fibrillation (4) COPD (chronic obstructive pulmonary disease) Code(s): J44.9 - CHRONIC OBSTRUCTIVE PULMONARY DISEASE, UNSPECIFIED Qualifiers: COPD type: unspecified COPD Qualified Code(s): J44.9 - Chronic obstructive pulmonary disease, unspecified (5) Diabetes mellitus Code(s): E11.9 - TYPE 2 DIABETES MELLITUS WITHOUT COMPLICATIONS Qualifiers: Diabetes mellitus type: type 2 (6) HTN (hypertension) Code(s): I10 - ESSENTIAL (PRIMARY) HYPERTENSION (7) Obesity Code(s): E66.9 - OBESITY, UNSPECIFIED Qualifiers: Obesity classification: adult class 3 (BMI >= 40)
[2018-04-09] MEDS: oxyCODONE HCL 5 MG TABLET PO PRN ×2 (15:15→22:08)
[2018-04-09] MEDS ORDERED: PT OWN MED DRAWER 7, Y5N ONE (18:23)
--- NOTE | 2018-04-09 20:50 | PN ---
Progress Note (short form) - Note Progress Note: covering dr farris Problems 1. proteinuria 2. CHF 3. obstructive sleep apnea 4. obesity 5. DM 6. HTN 7. hyperlipidemia 8. resp failure requiring bipap 9. toe infection Current Medications Amino Acids (Prosource No Carb Liquid Pkt) 30 ml PO BID@0800,1730 [facility] Last Admin: 04/09/18 19:25 Dose: Not Given Apixaban (Eliquis -) 5 mg PO BID [facility] Last Admin: 04/09/18 11:48 Dose: 2.5 mg Ascorbic Acid (Vitamin C -) 500 mg PO DAILY [facility] Last Admin: 04/09/18 09:14 Dose: 500 mg Budesonide/Formoterol Fumarate (Symbicort 160/4.5mcg -) 1 puff IH BID [facility] Last Admin: 04/09/18 09:12 Dose: 1 puff Cholecalciferol (Vitamin D3 -) 1,000 unit PO DAILY [facility] Last Admin: 04/09/18 09:13 Dose: 1,000 unit Cyanocobalamin (Vitamin B12 -) 1,000 mcg PO DAILY [facility] Last Admin: 04/09/18 09:12 Dose: 1,000 mcg Finasteride (Proscar -) 5 mg PO DAILY [facility] Last Admin: 04/09/18 09:13 Dose: 5 mg Folic Acid (Folic Acid -) 1 mg PO DAILY [facility] Last Admin: 04/09/18 09:14 Dose: 1 mg Gabapentin (Neurontin -) 300 mg PO TID [facility] Last Admin: 04/09/18 13:13 Dose: 300 mg Insulin Aspart (Novolog Vial Sliding Scale -) 1 vial SQ ACHS [facility]; Protocol Last Admin: 04/09/18 16:22 Dose: Not Given Kgled-4-Cjvi Ethyl Esters (Lovaza -) 1 gm PO DAILY [facility] Last Admin: 04/09/18 09:14 Dose: 1 gm Oxycodone HCl (Roxicodone -) 10 mg PO Q6H PRN PRN Reason: PAIN LEVEL 6-10 Last Admin: 04/09/18 15:15 Dose: 10 mg Pantoprazole Sodium (Protonix -) 20 mg PO DAILY [facility] Last Admin: 04/09/18 09:13 Dose: 20 mg Polyethylene Glycol (Miralax (For Daily Use) -) 17 gm PO BID [facility] Saliva Substitute (Mouthkote Solution -) 1 applic MM TID [facility] Last Admin: 04/09/18 13:13 Dose: 1 applic Tamsulosin HCl (Flomax -) 0.8 mg PO DAILY@0830 [facility] Last Admin: 04/09/18 09:13 Dose: 0.8 mg Torsemide (Demadex -) 20 mg PO DAILY [facility] Last Admin: 04/09/18 09:14 Dose: 20 mg Trimethoprim/Sulfamethoxazole (Bactrim Ds -) 1 each PO BID [facility] Zinc Sulfate (Orazinc -) 220 mg PO DAILY [facility] Last Admin: 04/09/18 09:13 Dose: 220 mg Last Vital Signs Temp Pulse Resp BP Pulse Ox 98.1 F 101 H 20 99/69 96 04/09/18 18:00 04/09/18 18:00 04/09/18 18:00 04/09/18 18:00 04/09/18 09:00 CBC, [facility] 04/09/18 10:50 04/09/18 10:50 CBC, [facility] 04/05/18 06:00 04/07/18 06:00 SHAKIR on chronic r/o fluid deficit r/o AIN Plan- IVF trial u/a, urine lytes urine wbcs
[2018-04-09] MEDS ORDERED: SODIUM CHLORIDE 1,000 ML IV SCH (21:00)
[2018-04-09] MEDS: SULFAMETHOXAZOLE/TRIMETHOPRIM 800MG/160MG D.S. TABLET PO SCH (22:09)
[2018-04-10] MEDS: oxyCODONE HCL 5 MG TABLET PO PRN ×2 (05:14→15:13)
[2018-04-10] MEDS: GABAPENTIN 100 MG CAPSULE (FP) PO SCH ×2 (05:14→14:41)
[2018-04-10] MEDS: LYTES/YERBA SANTA 240 ML BOTTLE MM SCH ×2 (05:15→14:41)
--- NOTE | 2018-04-10 06:08 | EKG ---
Test Reason : Blood Pressure : / mmHG Vent. Rate : 100 BPM Atrial Rate : 416 BPM P-R Int : 000 ms QRS Dur : 098 ms QT Int : 304 ms P-R-T Axes : 000 053 064 degrees QTc Int : 392 ms ATRIAL FIBRILLATION LOW VOLTAGE QRS ABNORMAL ECG WHEN COMPARED WITH ECG OF 03-APR-2018 15:48, NO SIGNIFICANT CHANGE WAS FOUND Confirmed by LAKEISHA VALLEJO MD ([id number]) on 04/10/2018 6:08:09 AM Referred By: Juanjose LEWIS Confirmed By:LAKEISHA VALLEJO MD
[2018-04-10] MEDS: INSULIN SLIDING SCALE (NOVOLOG) 1 VIAL SQ SCH ×2 (06:22→11:36)
[2018-04-10] MEDS ORDERED: MAGNESIUM HYDROX 2400MG/30ML ORAL SUSPENSION 30 ML CUP PO ONE (09:00)
--- NOTE | 2018-04-10 09:17 | CONS ---
PHYSICAL MEDICINE AND REHABILITATION CONSULTATION DATE OF CONSULTATION: 04/10/2018 HISTORY OF PRESENT ILLNESS: The patient is a 73-year-old man with an extensive past medical history, including atrial fibrillation, diabetes, as well as right knee osteoarthritis, left shoulder chronic pain, who has been in a nursing home facility per his recollection about 9 months with inability to ambulate mainly due to his right knee arthritis, who presented to [facility] on April 03, 2018, with pain in his right great toe. Patient evidently had work done on his right toe by Podiatry while in the nursing home facility. This became infected. He developed pain on admission, elevated WBCs 10.5. Chest x-ray showed atelectasis. He also has chronic respiratory failure. On admission April 03, WBCs 10.5, hemoglobin 13.2, platelet count over 370, chemistry within normal limits, BUN 17, creatinine 0.5. Patient was started on antibiotics and is currently in isolation. Most recent blood work showed normalization of his WBCs to 9.7, hemoglobin stable at 10.9, platelet count over 300, but his BUN is elevated at 34 and creatinine is elevated at 1.4. The patient was seen by Physical Therapy, required max assist of 2 for transfers. Continues to complain of pain in his right foot, but also in the right knee and left shoulder. No difficulty breathing. No lightheadedness, dizziness. REVIEW OF PAST MEDICAL AND SURGICAL HISTORY: Hypertension; congestive heart failure; atrial fibrillation; hyperlipidemia; diabetes; right knee osteoarthritis; left shoulder chronic pain; chronic obstructive pulmonary disease; possible obstructive sleep apnea syndrome; pulmonary hypertension. SOCIAL HISTORY: Per the patient, he has been in a nursing facility for 9 months. Intends to get his right knee operated on at some point. However, prior to this , he lived in an apartment with an elevator for access. He states he has not walked in about 9 months. REVIEW OF SYSTEMS: No headache. No lightheadedness, dizziness. No blurry vision, double vision. No nausea, vomiting, difficulty swallowing, difficulty chewing. No chest pain. He does get dyspneic with exertion, but no current shortness of breath at rest. No abdominal pain. No bowel, bladder complaints. No numbness, tingling in the upper or lower extremities. He has some swelling in the right more than left lower extremity. Pain in the right toe, right knee, left shoulder. No skin rash. No fever or chills. No significant recent weight change. PHYSICAL EXAMINATION: General: On examination, an overweight man seen lying in bed. He is in no acute distress. HEENT: Normocephalic and atraumatic. Extraocular muscles appear intact. Neck: Supple. Extremities: He has some edema in the right lower extremity +1. No isolated calf tenderness. No edema or calf tenderness in the left lower extremity. Skin: He has some discoloration around his right great toenail bed with dried blood, but no diffuse rash. Neuromuscular: Awake. Alert and oriented x3. Cranial nerves 2 through 12 grossly intact. He has limitations in range of motion in the left shoulder, which I cannot get much in terms of flexion or abduction due to pain, but good elbow flexion, elbow extension bilaterally. Good sportspersons strength. Perhaps some slightly decreased muscle bulk in the intrinsic muscles. Good range in the right shoulder. In the lower extremities, very limited range in his right knee due to pain with some lack of extension, probably 10 degrees or so, and very limited flexion, diffuse pain in the right knee. He also has limited range in the right ankle due to pain, but I can get him back to a neutral position. Gross strength 1 to 2 out of 5 limited by pain left lower extremity; better distally, 4 out of 5, but limited active hip flexion and knee extension 2 out of 5 strength with fairly good range of motion. Normal sensation to light touch, pinprick in the upper and lower extremities. Symmetric reflexes. Toes downgoing. OVERALL IMPRESSION: 1. Deficits in mobility, activities of daily living, multifactorial. 2. Deconditioning. 3. Right infected ingrown toenail. 4. Severe right knee pain with a history of underlying osteoarthritis. 5. Left shoulder chronic pain. Probable osteoarthritis with secondary adhesive capsulitis. 6. Chronic respiratory failure, chronic obstructive pulmonary disease, obstructive sleep apnea. 7. Atrial fibrillation. On Eliquis. 8. Congestive heart failure, hypertension. 9. Hyperlipidemia. 10. Type 2 diabetes without any evidence of neuropathy. 11. Elevated body mass index. 12. Elevated BUN and creatinine. PLAN/SUGGESTION: 1. Continue bedside physical therapy as ordered. 2. Out of bed to chair when able. 3. Orthopedic followup for possible injection, once he has been medically cleared and no active infection. 4. Pain control. 5. Weight reduction. Would recommend dietary consultation. 6. Patient is on Eliquis. No further DVT prophylaxis needed. 7. Will have to return to nursing home facility for probable long-term care. 8. Skin precautions. Monitor skin for any breakdown or erythema. 9. Contact precautions. 10. Cardiopulmonary precautions. Thank you for this referral. CATY RIVERO M.D. [id number]
[2018-04-10] MEDS ORDERED: PT OWN MED DRAWER 7, Y5N ONE (09:25)
[2018-04-10] MEDS: SULFAMETHOXAZOLE/TRIMETHOPRIM 800MG/160MG D.S. TABLET PO SCH (10:29)
[2018-04-10] MEDS: FINASTERIDE 5 MG TABLET (FP) PO SCH (10:29)
[2018-04-10] MEDS: APIXABAN 2.5 MG TABLET PO SCH (10:29)
[2018-04-10] MEDS: PANTOPRAZOLE 20 MG TABLET (FP) PO SCH (10:29)
[2018-04-10] MEDS: OMEGA-3 ACID ETHYL ESTERS (FATTY-ACIDS) 1 GM CAPSULE (FP) PO SCH (10:29)
[2018-04-10] MEDS: TAMSULOSIN HCL 0.4 MG CAP.ER.24H (FP) PO SCH (10:29)
[2018-04-10] MEDS: ASCORBIC ACID 500 MG TABLET (FP) PO SCH (10:29)
[2018-04-10] MEDS: FOLIC ACID 1 MG TABLET (FP) PO SCH (10:29)
[2018-04-10] MEDS: CHOLECALCIFEROL (VITAMIN D3) 1,000 UNIT TABLET (FP) PO SCH (10:29)
[2018-04-10] MEDS: CYANOCOBALAMIN 1,000 MCG TABLET (FP) PO SCH (10:29)
[2018-04-10] MEDS: TORSEMIDE 20 MG TABLET (FP) PO SCH (10:29)
[2018-04-10] MEDS: POLYETHYLENE GLYCOL 3350 119 GM BTL PO SCH (10:30)
[2018-04-10] MEDS: ZINC SULFATE 220 MG CAPSULE (FP) PO SCH (10:30)
[2018-04-10] MEDS: BUDESONIDE/FORMETEROL FUMARATE 160/4.5 mcg INHALER IH SCH (10:30)
[2018-04-10] MEDS: AMINO ACIDS/PROTEIN HYDROLYS 30 ML LIQUID.PKT PO SCH (10:30)
--- NOTE | 2018-04-10 10:51 | PN ---
Progress Note (short form) - Note Progress Note: Denies shortness of breath or chest pain. No acute events overnight. Intake & Output 04/07/18 04/08/18 04/09/18 04/10/18 23:59 23:59 23:59 23:59 Intake Total 600 200 0 725 Output Total 1700 1400 1550 300 Balance -1100 -1200 -1550 425 Weight 214 lb 6 oz Last Vital Signs Temp Pulse Resp BP Pulse Ox 98.4 F 116 H 20 114/55 L 97 04/10/18 06:00 04/10/18 06:00 04/10/18 06:00 04/10/18 06:00 04/09/18 21:00 Active Medications Amino Acids (Prosource No Carb Liquid Pkt) 30 ml PO BID@0800,1730 [facility] Last Admin: 04/10/18 10:30 Dose: 30 ml Apixaban (Eliquis -) 5 mg PO BID [facility] Last Admin: 04/10/18 10:29 Dose: 5 mg Ascorbic Acid (Vitamin C -) 500 mg PO DAILY [facility] Last Admin: 04/10/18 10:29 Dose: 500 mg Budesonide/Formoterol Fumarate (Symbicort 160/4.5mcg -) 1 puff IH BID [facility] Last Admin: 04/10/18 10:30 Dose: 1 puff Cholecalciferol (Vitamin D3 -) 1,000 unit PO DAILY [facility] Last Admin: 04/10/18 10:29 Dose: 1,000 unit Cyanocobalamin (Vitamin B12 -) 1,000 mcg PO DAILY [facility] Last Admin: 04/10/18 10:29 Dose: 1,000 mcg Finasteride (Proscar -) 5 mg PO DAILY [facility] Last Admin: 04/10/18 10:29 Dose: 5 mg Folic Acid (Folic Acid -) 1 mg PO DAILY [facility] Last Admin: 04/10/18 10:29 Dose: 1 mg Gabapentin (Neurontin -) 300 mg PO TID [facility] Last Admin: 04/10/18 05:14 Dose: 300 mg Insulin Aspart (Novolog Vial Sliding Scale -) 1 vial SQ ACHS [facility]; Protocol Last Admin: 04/10/18 06:22 Dose: Not Given Pvojl-9-Inkz Ethyl Esters (Lovaza -) 1 gm PO DAILY [facility] Last Admin: 04/10/18 10:29 Dose: 1 gm Oxycodone HCl (Roxicodone -) 10 mg PO Q6H PRN PRN Reason: PAIN LEVEL 6-10 Last Admin: 04/10/18 05:14 Dose: 10 mg Pantoprazole Sodium (Protonix -) 20 mg PO DAILY [facility] Last Admin: 04/10/18 10:29 Dose: 20 mg Polyethylene Glycol (Miralax (For Daily Use) -) 17 gm PO BID [facility] Last Admin: 04/10/18 10:30 Dose: 17 gm Saliva Substitute (Mouthkote Solution -) 1 applic MM TID [facility] Last Admin: 04/10/18 05:15 Dose: 1 applic Senna (Senna -) 1 tab PO HS [facility] Tamsulosin HCl (Flomax -) 0.8 mg PO DAILY@0830 [facility] Last Admin: 04/10/18 10:29 Dose: 0.8 mg Torsemide (Demadex -) 20 mg PO DAILY [facility] Last Admin: 04/10/18 10:29 Dose: 20 mg Trimethoprim/Sulfamethoxazole (Bactrim Ds -) 1 each PO BID [facility] Last Admin: 04/10/18 10:29 Dose: 1 each Zinc Sulfate (Orazinc -) 220 mg PO DAILY [facility] Last Admin: 04/10/18 10:30 Dose: 220 mg Gen: NAD at rest Heart: RRR Lung: decreased breath sounds at the bases Abd: soft, nontender Ext: no edema Laboratory Results - last 24 hr 04/09/18 04/09/18 04/09/18 10:50 10:50 11:33 WBC 9.7 RBC 3.43 L Hgb 10.9 L Hct 32.7 L MCV 95.5 MCH 31.7 MCHC 33.2 RDW 15.2 Plt Count 379 MPV 8.2 Absolute Neuts (auto) 7.0 Neutrophils % 71.8 Lymphocytes % 15.8 Monocytes % 9.9 Eosinophils % 2.1 Basophils % 0.4 Nucleated RBC % 0 Sodium 138 Potassium 3.8 Chloride 98 Carbon Dioxide 33 H Anion Gap 7 L BUN 34 H Creatinine 1.4 H Creat Clearance w eGFR 49.96 POC Glucometer 99 Random Glucose 95 Calcium 7.9 L Total Bilirubin 0.6 AST 21 ALT 11 L Alkaline Phosphatase 85 Creatine Kinase Troponin I Total Protein 5.6 L Albumin 1.5 L Prealbumin 5.7 L TSH 0.72 D 04/09/18 04/09/18 04/09/18 15:45 16:17 22:16 WBC RBC Hgb Hct MCV MCH MCHC RDW Plt Count MPV Absolute Neuts (auto) Neutrophils % Lymphocytes % Monocytes % Eosinophils % Basophils % Nucleated RBC % Sodium Potassium Chloride Carbon Dioxide Anion Gap BUN Creatinine Creat Clearance w eGFR POC Glucometer 98 90 Random Glucose Calcium Total Bilirubin AST ALT Alkaline Phosphatase Creatine Kinase 23 L Troponin I < 0.02 Total Protein Albumin Prealbumin TSH 04/10/18 06:21 WBC RBC Hgb Hct MCV MCH MCHC RDW Plt Count MPV Absolute Neuts (auto) Neutrophils % Lymphocytes % Monocytes % Eosinophils % Basophils % Nucleated RBC % Sodium Potassium Chloride Carbon Dioxide Anion Gap BUN Creatinine Creat Clearance w eGFR POC Glucometer 79 Random Glucose Calcium Total Bilirubin AST ALT Alkaline Phosphatase Creatine Kinase Troponin I Total Protein Albumin Prealbumin TSH A/P Ingrown Nail COPD Chronic Hypoxic Respiratory Failure Obstructive Sleep Apnea LV Diastolic Dysfunction Atrial Fibrillation HTN DM - incentive spirometry - inhaled bronchodilators - O2 to keep SpO2 >90% - can defer systemic steroids at this time - offered BiPAP at night for his LUCY but currently declining - rate control - continue anticoagulation Problem List - Problems (1) Ingrowing toenail with infection Code(s): L60.0 - INGROWING NAIL (2) Chronic respiratory failure with hypoxia Code(s): J96.11 - CHRONIC RESPIRATORY FAILURE WITH HYPOXIA (3) Atrial fibrillation Code(s): I48.91 - UNSPECIFIED ATRIAL FIBRILLATION Qualifiers: Atrial fibrillation type: chronic Qualified Code(s): I48.2 - Chronic atrial fibrillation (4) COPD (chronic obstructive pulmonary disease) Code(s): J44.9 - CHRONIC OBSTRUCTIVE PULMONARY DISEASE, UNSPECIFIED Qualifiers: COPD type: unspecified COPD Qualified Code(s): J44.9 - Chronic obstructive pulmonary disease, unspecified (5) Diabetes mellitus Code(s): E11.9 - TYPE 2 DIABETES MELLITUS WITHOUT COMPLICATIONS Qualifiers: Diabetes mellitus type: type 2 (6) HTN (hypertension) Code(s): I10 - ESSENTIAL (PRIMARY) HYPERTENSION (7) Obesity Code(s): E66.9 - OBESITY, UNSPECIFIED Qualifiers: Obesity classification: adult class 3 (BMI >= 40) A/P Ingrown Nail COPD Chronic Hypoxic Respiratory Failure Obstructive Sleep Apnea LV Diastolic Dysfunction Atrial Fibrillation HTN DM - incentive spirometry - inhaled bronchodilators - O2 to keep SpO2 >90% - No indication for systemic steroids at this time - offered PAP therapy at night for his LUCY but declining - rate control - continue anticoagulation Dr Emanuel
[2018-04-10 12:39] VITALS: BMI 29.0
[2018-04-10 14:50] VITALS: BP 100/74; PULSE 114; TEMP 97.8
--- NOTE | 2018-04-10 15:58 | PN ---
Progress Note, Physician History of Present Illness: Pt seen and examined at bedside. He feels that lower ext edema is improved. He denies shortness of breath. - Objective Vital Signs: Vital Signs Temperature 97.8 F 04/10/18 14:48 Pulse Rate 114 H 04/10/18 14:48 Respiratory Rate 20 04/10/18 14:48 Blood Pressure 100/74 04/10/18 14:48 O2 Sat by Pulse Oximetry (%) 97 04/10/18 09:00 Constitutional: Yes: Calm Eyes: Yes: Conjunctiva Clear Cardiovascular: Yes: S1, S2 Respiratory: Yes: CTA Bilaterally Gastrointestinal: Yes: Normal Bowel Sounds, Soft Genitourinary: Yes: Mathews Present Edema: LLE: Trace, RLE: Trace Neurological: Yes: Oriented Psychiatric: Yes: Oriented Labs: CBC, BMP 04/09/18 10:50 04/09/18 10:50 INR, PTT INR 1.52 (0.83-1.09) H 04/03/18 16:45 Problem List - Problems (1) BPH (benign prostatic hyperplasia) Code(s): N40.0 - BENIGN PROSTATIC HYPERPLASIA WITHOUT LOWER URINRY TRACT SYMP (2) Azotemia Code(s): R79.89 - OTHER SPECIFIED ABNORMAL FINDINGS OF BLOOD CHEMISTRY Assessment/Plan Impression 1. proteinuria 2. CHF 3. obstructive sleep apnea 4. obesity 5. DM 6. HTN 7. hyperlipidemia 8. resp failure requiring bipap 9. toe infection Plan - no new labs today - renal function had been worsening - called and discussed with attending, he will follow labs as outpt - will need diuretics - monitor lytes and volume status - encourage PO intake
[2018-04-10] MEDS ORDERED: SENNOSIDES 8.6MG TABLET (FP) PO SCH (22:00)
== END 2018-04-10 15:34 | DRG 872 ==
LOC: JER 15:09 → JERBED 20:01 → J7W 04-04 03:33
PROVIDERS: ADMIT Internal Medicine; ATTEND Family Medicine
DX: A41.9 Sepsis, unspecified organism (principal); J98.11 Atelectasis; J96.11 Chronic respiratory failure with hypoxia; E66.2 Morbid (severe) obesity with alveolar hypoventilation; N39.0 Urinary tract infection, site not specified; Z68.41 Body mass index [BMI] 40.0-44.9, adult; L03.031 Cellulitis of right toe; I11.0 Hypertensive heart disease with heart failure; E83.42 Hypomagnesemia; E11.621 Type 2 diabetes mellitus with foot ulcer; J44.9 Chronic obstructive pulmonary disease, unspecified; I95.9 Hypotension, unspecified; M17.11 Unilateral primary osteoarthritis, right knee; E78.5 Hyperlipidemia, unspecified; N40.0 Benign prostatic hyperplasia without lower urinary tract symptoms; I48.2 Chronic atrial fibrillation; E87.70 Fluid overload, unspecified; I50.9 Heart failure, unspecified
CPT/HCPCS: 36415; 71045-TC-FY; 73523-TC-FY; 73560-TC-RT-FY; 73630-TC-RT-FY; 74018-TC-FY; 80048; 80053; 81003; 81015; 82550; 82962; 83605; 83735; 84100; 84134; 84443; 84484; 85025; 85610; 85651; 85730; 86140; 87040; 87086; 87186; 93005; 93010; 93970-TC; 97116-GP; 97162-GP; 99285-25; J7030

== ENCOUNTER 2018-05-29 16:14 | Inpatient (IN) | payer OTHER ==
[2018-05-29] MEDS ORDERED: SODIUM CHLORIDE 1,000 ML IV STA (16:55)
--- NOTE | 2018-05-29 16:55 | PDOC ---
History of Present Illness <Daphne Briceño - Last Filed: 05/29/18 18:53> - General History Source: Patient Exam Limitations: No Limitations - History of Present Illness Initial Comments: 05/29/18 17:30 Pt is a 73 y/o M with PMH of afib, COPD, CAD, HTN, HLD, IDDM, who presents to the ED from [facility] for abnormal lab work. Pt states he is unsure as to why he is here and does not know about abnormal lab work. He states he has been feeling more tired recently. Pt has an indwelling villareal catheter. Denies fevers, chills , chest pain, shortness of breath, palpitations, n/v/d, dysuria, abdominal pain , back pain and weakness. <Maine Capellan - Last Filed: 05/30/18 20:27> - General Chief Complaint: Revisit, Lab Variance Stated Complaint: ABNORMAL LABS Time Seen by Provider: 05/29/18 16:46 Past History <Daphne Briceño - Last Filed: 05/29/18 18:53> - Travel Traveled outside of the country in the last 30 days: No Close contact w/someone who was outside of country & ill: No - Past Medical History Anemia: No Asthma: Yes Cancer: No Cardiac Disorders: Yes (CAD, COARSE A.FIBRILATION, CHRONIC ISCHEMIC HEART DISEASE, CARDIOMYOPATHY) CVA: No COPD: Yes (EMPHYSEMA) CHF: No DVT: No Dementia: No Diabetes: Yes (IDDM) GI Disorders: No Disorders: No HTN: Yes Hypercholesterolemia: Yes Liver Disease: Yes (FATTY LIVER) Seizures: No Thyroid Disease: No - Surgical History Abdominal Surgery: No Appendectomy: No Cardiac Surgery: No Cholecystectomy: No Lung Surgery: No Neurologic Surgery: No Orthopedic Surgery: Yes (bilateral knee surgery 1974 left knee 1979) - Family Disease History Family Disease History: Heart Disease: Father - Immunization History Immunization Up to Date: Yes - Suicide/Smoking/Psychosocial Hx Smoking Status: Yes (QUIT 2011) Smoking History: Never smoked Have you smoked in the past 12 months: No Number of Cigarettes Smoked Daily: 0 If you are a former smoker, when did you quit?: 6 years ago Cigars Per Day: 0 Information on smoking cessation initiated: No 'Breaking Loose' booklet given: 08/01/17 Hx Alcohol Use: No Drug/Substance Use Hx: No Substance Use Type: None Hx Substance Use Treatment: Yes (Used to drink and use marijuana and cocaine.) <WilmaMaine cummings - Last Filed: 05/30/18 20:27> - Past Medical History Allergies/Adverse Reactions: Allergies Allergy/AdvReac Type Severity Reaction Status Date / Time No Known Allergies Allergy Verified 05/29/18 16:29 Home Medications: Ambulatory Orders Acetaminophen [Tylenol] 325 mg PO Q6H PRN 04/03/18 Amino Acids/Protein Hydrolys [Pro-Stat Liquid] 30 ml PO BID 04/03/18 Apixaban [Eliquis] 5 mg PO DAILY 04/03/18 Ascorbic Acid [Vitamin C] 500 mg PO DAILY 04/03/18 Budesonide/Formeterol Fumarate [SYMBICORT 160/4.5mcg -] 1 inh PO BID 04/03/18 Cephalexin [Keflex] 250 mg PO Q6H 04/03/18 Cholecalciferol (Vitamin D3) [Vitamin D3] 1,000 unit PO DAILY 04/03/18 Cran/Vitc/Mannose/Fos/Bromeln [Uti-Stat Liquid] 30 ml PO TID 04/03/18 Cyanocobalamin [Vitamin B12 -] 1,000 mcg PO DAILY 04/03/18 Digoxin 125 mcg PO ASDIR 04/03/18 Digoxin 125 mcg PO ASDIR 04/03/18 Finasteride 5 mg PO DAILY 04/03/18 Folic Acid 1 mg PO DAILY 04/03/18 Gabapentin 200 mg PO TID 04/03/18 Methylphenidate HCl [Ritalin LA] 5 mg PO DAILY 04/03/18 [place]-3 Fatty Acids [[place]-3] 1,000 mg PO DAILY 04/03/18 Omeprazole 20 mg PO DAILY 04/03/18 Polyethylene Glycol 3350 [Miralax 119 gm Btl -] 17 gm PO DAILY 04/03/18 Potassium Citrate [Potassium Citrate ER] 10 meq PO DAILY 04/03/18 Saliva Substitute Combo No.9 [Biotene] 30 ml MM TID 04/03/18 Tamsulosin HCl [Flomax -] 0.8 mg PO DAILY 04/03/18 Zinc Sulfate 220 mg PO DAILY 04/03/18 Amino Acids/Protein Hydrolys [Prosource No Carb Liquid Pkt] 30 ml PO BID@0800, 1730 packet 04/08/18 Insulin Sliding Scale [Novolog Vial Sliding Scale -] 1 vial SQ ACHS units 04/08 Torsemide [Demadex -] 20 mg PO DAILY tablet 04/08/18 oxyCODONE HCL [Roxicodone -] 10 mg PO Q6H PRN tablet MDD 4 04/08/18 Sennosides [Senna -] 1 tab PO HS tablet 04/10/18 Sulfamethoxazole/Trimethoprim [Bactrim DS -] 1 each PO BID #10 tablet 04/10/18 Review of Systems - Review of Systems Able to Perform ROS?: Yes Comments:: 05/29/18 16:53 CONSTITUTIONAL: Present: malaise Absent: fever, chills, diaphoresis, generalized weakness, loss of appetite HEENT: Absent: rhinorrhea, nasal congestion, throat pain, throat swelling, difficulty swallowing, mouth swelling, ear pain, eye pain, visual Changes CARDIOVASCULAR: Absent: chest pain, loss of consciousness, palpitations, irregular heart rate, peripheral edema RESPIRATORY: Absent: cough, shortness of breath, dyspnea with exertion, orthopnea, wheezing, stridor, hemoptysis GASTROINTESTINAL: Absent: abdominal pain, abdominal distension, nausea, vomiting, diarrhea, constipation, melena, hematochezia GENITOURINARY: Absent: dysuria, frequency, urgency, hesitancy, hematuria, flank pain, genital pain MUSCULOSKELETAL: Absent: myalgia, arthralgia, joint swelling SKIN: Absent: rash, itching, pallor HEMATOLOGIC/IMMUNOLOGIC: Absent: easy bleeding, easy bruising, lymphadenopathy, frequent infections ENDOCRINE: Absent: unexplained weight gain, unexplained weight loss, heat intolerance, cold intolerance NEUROLOGIC: Absent: headache, focal weakness or paresthesias, dizziness, unsteady gait, seizure, mental status changes, bladder or bowel incontinence PSYCHIATRIC: Absent: anxiety, depression, suicidal or homicidal ideation, hallucinations. Is the patient limited [place]ian proficient: No <Maine Capellan - Last Filed: 05/30/18 20:27> *Physical Exam - Vital Signs Last Vital Signs Temp Pulse Resp BP Pulse Ox 97.6 F 16 L 16 115/62 96 05/29/18 16:15 05/29/18 16:15 05/29/18 16:15 05/29/18 16:15 05/29/18 16:15 <Daphne Briceño - Last Filed: 05/29/18 18:53> - Vital Signs Last Vital Signs Temp Pulse Resp BP Pulse Ox 97.6 F 16 L 16 115/62 96 05/29/18 16:15 05/29/18 16:15 05/29/18 16:15 05/29/18 16:15 05/29/18 16:15 - Physical Exam Comments: 05/29/18 16:54 GENERAL: Well developed, well nourished. Awake and alert to person and place. No acute distress. Villareal present with dark foul smelling urine. HEENT: Normocephalic, atraumatic. PERRLA, EOMI. No conjunctival pallor. Sclera are non- icteric. Dry mucous membranes. Oropharynx is clear. NECK: Supple. Full ROM. No JVD. Carotid pulses 2+ and symmetric, without bruits. No thyromegaly. No lymphadenopathy. CARDIOVASCULAR: Irregularly irregular rate and rhythm. No murmurs, rubs, or gallops. Distal pulses are 2+ and symmetric. PULMONARY: No evidence of respiratory distress. Lungs clear to auscultation bilaterally. No wheezing, rales or rhonchi. ABDOMINAL: Soft. Non-tender. Non-distended. No rebound or guarding. No organomegaly. Normoactive bowel sounds. MUSCULOSKELETAL Normal range of motion at all joints. No bony deformities or tenderness. No CVA tenderness. EXTREMITIES: No cyanosis. No clubbing. No edema. No calf tenderness. SKIN: Warm and dry. Normal capillary refill. No rashes. No jaundice. NEUROLOGICAL: Alert, awake, appropriate. Cranial nerves 2-12 intact. No deficits to light touch and temperature in face, upper extremities and lower extremities. No motor deficits in the in face, upper extremities and lower extremities. Normoreflexic in the upper and lower extremities. Normal speech. Toes are down- going bilaterally. Gait is normal without ataxia. PSYCHIATRIC: Cooperative. Good eye contact. Appropriate mood and affect. <Maine Capellan - Last Filed: 05/30/18 20:27> ED Treatment Course - LABORATORY CBC & Chemistry Diagram: 05/29/18 17:00 05/29/18 17:00 - ADDITIONAL ORDERS Additional order review: Laboratory Results 05/29/18 05/29/18 17:00 17:00 PT with INR 21.60 H INR 1.82 H Sodium 141 Potassium 4.8 Chloride 101 Carbon Dioxide 31 Anion Gap 10 BUN 56 H Creatinine 2.6 H Creat Clearance w eGFR 24.45 Random Glucose 74 Calcium 8.3 L Magnesium 1.5 L Total Bilirubin 0.8 AST 22 ALT 9 L Alkaline Phosphatase 85 Creatine Kinase 58 Troponin I 0.05 Total Protein 6.9 Albumin 1.7 L 05/29/18 17:00 RBC 3.25 L MCV 93.5 MCHC 34.5 RDW 15.8 MPV 8.7 Neutrophils % 68.4 Lymphocytes % 20.4 D Monocytes % 8.6 Eosinophils % 1.9 Basophils % 0.7 - Medications Given in the ED: ED Medications Discontinued Medications Generic Name Dose Route Start Last Admin Trade Name Freq PRN Reason Stop Dose Admin Sodium Chloride 1,000 mls @ 1,000 mls/hr 05/29/18 16:55 05/29/18 17:14 Normal Saline - IV 05/29/18 17:54 1,000 mls/hr ASDIR STA Administration <Daphne Briceño - Last Filed: 05/29/18 18:53> - LABORATORY CBC & Chemistry Diagram: 05/29/18 17:00 05/29/18 17:00 <Maine Capellan - Last Filed: 05/30/18 20:27> Medical Decision Making - Medical Decision Making 05/29/18 19:44 Pt is a 73 y/o M with PMH of afib, COPD, CAD, HTN, HLD, IDDM, who presents to the ED from [facility] for abnormal lab work. Pt AAOx2. Pt is a poor historian as to why he is here today. -Exam: notable for dark, foul smelling urine in the villareal bag. Pt in afib currently. BP 92/52, Pt afebrile -Labs notable for SHAKIR, Cr is 2.5, baseline 1.4 -No leukocytosis, K+ within normal limits, -Troponin is 0.05, most likely demand ischemia d/t SHAKIR - Pt pending urine. Will cover with ceftriaxone for presumed UTI -Lactic acid and digoxin level added on -Most likely DDX, SHAKIR d/t UTI. -Fluids started -EKG shows afib at a rate of 103. -Will place patient for admission. Case discussed with CIRO Nur. Requesting head CT. <Maine Capellan - Last Filed: 05/30/18 20:27> *DC/Admit/Observation/Transfer - Attestations Physician Attestion: I independently examined and evaluated this patient in conjunction with YUKO Capellan. I reviewed the case and agree with her assessment, diagnosis and disposition. <Daphne Briceño - Last Filed: 05/29/18 18:53> - Discharge Dispostion Decision to Admit order: Yes <Maine Capellan - Last Filed: 05/30/18 20:27> Diagnosis at time of Disposition: SHAKIR (acute kidney injury) UTI (urinary tract infection) Qualifiers: Urinary tract infection type: catheter-associated UTI Indwelling urinary catheter type: indwelling urethral catheter Encounter type: initial encounter Qualified Code(s): T83.511A - Infection and inflammatory reaction due to indwelling urethral catheter, initial encounter A-fib Qualifiers: Atrial fibrillation type: chronic Qualified Code(s): I48.2 - Chronic atrial fibrillation - Discharge Dispostion Condition at time of disposition: Stable
[2018-05-29 17:26] LABS: BASO % 0.7 % (0-2.0); EOS % 1.9 % (0-4.5); HEMATOCRIT 30.4 % (35.4-49); HEMOGLOBIN 10.5 GM/dL (11.7-16.9); LYMPH % 20.4 % (8-40); MCH 32.3 pg (25.7-33.7); MCHC 34.5 g/dl (32.0-35.9); MEAN CELL VOLUME 93.5 fl (80-96); MEAN PLT VOLUME 8.7 fl (7.5-11.1); MONO % 8.6 % (3.8-10.2); NEUT % 68.4 % (42.8-82.8); PLATELET COUNT 433 K/MM3 (134-434); RBC 3.25 M/mm3 (4.00-5.60); RDW 15.8 % (11.9-15.9); WHITE BLOOD COUNT 9.7 K/mm3 (4.0-10.0)
[2018-05-29 18:01] LABS: ALBUMIN 1.7 g/dl (3.4-5.0); ALK PHOS 85 U/L (45-117); ANION GAP 10 MMOL/L (8-16); BILIRUBIN,TOTAL 0.8 mg/dL (0.2-1); BLOOD UREA NITROGEN 56 mg/dL (7-18); CALCIUM 8.3 mg/dL (8.5-10.1); CHLORIDE 101 mmol/L (98-107); CO2 31 mmol/L (21-32); CREATININE 2.6 mg/dL (0.55-1.3); GLUCOSE,RANDOM 74 mg/dL (74-106); MAGNESIUM 1.5 mg/dL (1.8-2.4); POTASSIUM 4.8 mmol/L (3.5-5.1); SGOT/AST 22 U/L (15-37); SGPT/ALT 9 U/L (13-61); SODIUM 141 mmol/L (136-145); TOT PROT 6.9 g/dl (6.4-8.2)
[2018-05-29 18:14] LABS: INR 1.82 (0.83-1.09); PROTHROMBIN TIME (PATIENT) 21.6 SEC (9.7-13.0)
[2018-05-29] MEDS ORDERED: CEFTRIAXONE 1 GM in DEXTROSE 5%-WATER - 100 ML IVPB ONE (18:27)
[2018-05-29] MEDS ORDERED: cefTRIAXone SODIUM 1 GM VIAL ONE (19:34)
[2018-05-29] MEDS ORDERED: DOCUSATE SODIUM 100 MG CAPSULE (FP) PO PRN (20:09)
[2018-05-29 20:20] LABS: URINE APPEARANCE TURBID; URINE BILIRUBIN NEGATIVE (<2.0 mg/dL); URINE COLOR RED; URINE GLUCOSE (UA) NEGATIVE (NEGATIVE); URINE KETONE NEGATIVE (NEGATIVE); URINE LEUK ESTERASE 2+ (NEGATIVE); URINE NITRITE NEGATIVE (NEGATIVE); URINE PROTEIN 3+ (NEGATIVE)
[2018-05-29 20:28] LABS: EPI CELLS RARE /HPF (FEW); URINE BACTERIA MODERATE /hpf (NONE SEEN); URINE MUCUS FEW
--- NOTE | 2018-05-29 21:17 | HP ---
CHIEF COMPLAINT: sent from [place] for elevated BUN/Cr and oliguria PCP: Dr. Brothers HISTORY OF PRESENT ILLNESS: 73 year old M with h/p COPD on home O2, pHTN, afib ( on digoxin and eliquis), sleep apnea, BPH with indwelling villareal, DMII, CHF and HTN transferred from [facility] in the setting of lethargy, anorexia and decreased urine output. Pt had routine labs drawn which revealed SHAKIR with BUN/ Cr 54/2.4 ER course was notable for: (1) U/A +3 protein, +2 leuk +moderate bacteria (2) SHAKIR, serum Cr 2.6 up from baseline 1.4. One Liter fluids administered (3) Ceftriaxone started prior to obtaining u/a and Ucx Recent Travel: none PAST MEDICAL HISTORY: Afib CHF pHTN HLD GERD CKD E.coli ESBL Bacteremia due to UTI 09/2017 HTN OA COPD/ASTHMA LUCY shingles BPH Fatty Liver disease PAST SURGICAL HISTORY: tonsillectomy bilateral knee surgery (right 1974 and Left 1979) Social History: Smoking: denies. Former smoker quit in 2011 Alcohol: denies Drugs: denies Pt resides in [facility] and is dependent on others for care. Family History: [place] to current admission Allergies: No Known Allergies Allergy (Verified 05/29/18 16:29) HOME MEDICATIONS: Home Medications Medication Instructions Recorded Acetaminophen [Tylenol] 325 mg PO Q6H PRN 04/03/18 Amino Acids/Protein Hydrolys 30 ml PO BID 04/03/18 [Pro-Stat Liquid] Apixaban [Eliquis] 5 mg PO DAILY 04/03/18 Ascorbic Acid [Vitamin C] 500 mg PO DAILY 04/03/18 Budesonide/Formeterol Fumarate 1 inh PO BID 04/03/18 [SYMBICORT 160/4.5mcg -] Cephalexin [Keflex] 250 mg PO Q6H 04/03/18 Cholecalciferol (Vitamin D3) 1,000 unit PO DAILY 04/03/18 [Vitamin D3] Cran/Vitc/Mannose/Fos/Bromeln 30 ml PO TID 04/03/18 [Uti-Stat Liquid] Cyanocobalamin [Vitamin B12 -] 1,000 mcg PO DAILY 04/03/18 Digoxin 125 mcg PO ASDIR 04/03/18 Digoxin 125 mcg PO ASDIR 04/03/18 Finasteride 5 mg PO DAILY 04/03/18 Folic Acid 1 mg PO DAILY 04/03/18 Gabapentin 200 mg PO TID 04/03/18 Methylphenidate HCl [Ritalin LA] 5 mg PO DAILY 04/03/18 [place]-3 Fatty Acids [[place]-3] 1,000 mg PO DAILY 04/03/18 Omeprazole 20 mg PO DAILY 04/03/18 Polyethylene Glycol 3350 [Miralax 17 gm PO DAILY 04/03/18 119 gm Btl -] Potassium Citrate [Potassium 10 meq PO DAILY 04/03/18 Citrate ER] Saliva Substitute Combo No.9 30 ml MM TID 04/03/18 [Biotene] Tamsulosin HCl [Flomax -] 0.8 mg PO DAILY 04/03/18 Zinc Sulfate 220 mg PO DAILY 04/03/18 Amino Acids/Protein Hydrolys 30 ml PO BID@0800,1730 packet 04/08/18 [Prosource No Carb Liquid Pkt] Insulin Sliding Scale [Novolog 1 vial SQ ACHS units 04/08/18 Vial Sliding Scale -] Torsemide [Demadex -] 20 mg PO DAILY tablet 04/08/18 oxyCODONE HCL [Roxicodone -] 10 mg PO Q6H PRN tablet MDD 4 04/08/18 Sennosides [Senna -] 1 tab PO HS tablet 04/10/18 Sulfamethoxazole/Trimethoprim 1 each PO BID #10 tablet 04/10/18 [Bactrim DS -] REVIEW OF SYSTEMS CONSTITUTIONAL: Absent: negative fever, chills, diaphoresis,weight change. positive: generalized weakness, malaise, loss of appetite, HEENT: Absent: rhinorrhea, nasal congestion, throat pain, throat swelling, difficulty swallowing, mouth swelling, ear pain, eye pain, visual changes CARDIOVASCULAR: Absent: chest pain, syncope, palpitations, irregular heart rate, lightheadedness , peripheral edema RESPIRATORY: Absent: cough, shortness of breath, dyspnea with exertion, orthopnea, wheezing, stridor, hemoptysis GASTROINTESTINAL: Absent: abdominal pain, abdominal distension, nausea, vomiting, diarrhea, constipation, melena, hematochezia GENITOURINARY: Absent: dysuria, frequency, urgency, hesitancy, hematuria, flank pain, genital pain Positive foul smelling cloudy urine, villareal in situ MUSCULOSKELETAL: Absent: myalgia, arthralgia, joint swelling, back pain, neck pain SKIN: Absent: rash, itching, pallor HEMATOLOGIC/IMMUNOLOGIC: Absent: easy bleeding, easy bruising, lymphadenopathy, frequent infections ENDOCRINE: Absent: unexplained weight gain, unexplained weight loss, heat intolerance, cold intolerance NEUROLOGIC: Absent: headache, focal weakness or paresthesias, dizziness, Seizure, Positive: unsteady gait, low tone muffled speech ( 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 PHYSICAL EXAMINATION Vital Signs - 24 hr 05/29/18 16:15 Temperature 97.6 F Pulse Rate 16 L Respiratory 16 Rate Blood Pressure 115/62 O2 Sat by Pulse 96 Oximetry (%) GENERAL: Awake but lethargic, in no acute distress. HEAD: Normal with no signs of trauma. thin chris hair EYES: Pupils equal, round and reactive to light, ~2mm, sclera anicteric. ORAL CAVITY: dry mucous membranes. NECK: Normal range of motion, supple without lymphadenopathy, JVD, or masses. LUNGS: clear to auscultation bilaterally but diminished. No wheezes, and no crackles. No accessory muscle use. HEART: Regular rate and rhythm, normal S1 and S2 without murmur, rub or gallop. ABDOMEN: Soft, nontender, not distended, normoactive bowel sounds, no guarding, no rebound, no masses. No hepatomegaly or splenomegaly. MUSCULOSKELETAL: decreased range of motion and muscle strength at all joints. UPPER EXTREMITIES: 2+ pulses, warm, well-perfused. No cyanosis. No clubbing. No peripheral edema. LOWER EXTREMITIES: 2+ pulses, warm, well-perfused. No calf tenderness. No peripheral edema. NEUROLOGICAL: poor memory recall, right foot drop. mild tremors UEs. PSYCHIATRIC: Cooperative. Appropriate mood and affect. SKIN: Warm, moist, no rashes or lesions noted, normal capillary refill. Laboratory Results - last 24 hr 05/29/18 05/29/18 05/29/18 17:00 17:00 17:00 WBC 9.7 RBC 3.25 L Hgb 10.5 L Hct 30.4 L MCV 93.5 MCH 32.3 MCHC 34.5 RDW 15.8 Plt Count 433 MPV 8.7 Absolute Neuts (auto) 6.6 Neutrophils % 68.4 Lymphocytes % 20.4 D Monocytes % 8.6 Eosinophils % 1.9 Basophils % 0.7 Nucleated RBC % 0 PT with INR 21.60 H INR 1.82 H Sodium 141 Potassium 4.8 Chloride 101 Carbon Dioxide 31 Anion Gap 10 BUN 56 H Creatinine 2.6 H Creat Clearance w eGFR 24.45 Random Glucose 74 Calcium 8.3 L Magnesium 1.5 L Total Bilirubin 0.8 AST 22 ALT 9 L Alkaline Phosphatase 85 Creatine Kinase 58 Troponin I 0.05 Total Protein 6.9 Albumin 1.7 L Urine Color Urine Appearance Urine pH Ur Specific [place] Urine Protein Urine Glucose (UA) Urine Ketones Urine Blood Urine Nitrite Urine Bilirubin Urine Urobilinogen Ur Leukocyte Esterase Urine WBC (Auto) Urine RBC (Auto) Ur Epithelial Cells Urine Bacteria Urine Mucus 05/29/18 20:01 WBC RBC Hgb Hct MCV MCH MCHC RDW Plt Count MPV Absolute Neuts (auto) Neutrophils % Lymphocytes % Monocytes % Eosinophils % Basophils % Nucleated RBC % PT with INR INR Sodium Potassium Chloride Carbon Dioxide Anion Gap BUN Creatinine Creat Clearance w eGFR Random Glucose Calcium Magnesium Total Bilirubin AST ALT Alkaline Phosphatase Creatine Kinase Troponin I Total Protein Albumin Urine Color Red Urine Appearance Turbid Urine pH 8.0 D Ur Specific [place] 1.012 Urine Protein 3+ H D Urine Glucose (UA) Negative Urine Ketones Negative Urine Blood 3+ H Urine Nitrite Negative Urine Bilirubin Negative Urine Urobilinogen 2.0 Ur Leukocyte Esterase 2+ H Urine WBC (Auto) 271 Urine RBC (Auto) 23 Ur Epithelial Cells Rare Urine Bacteria Moderate Urine Mucus Few ASSESSMENT: 73 year old m with extensive medical history including BPH with indwelling villareal, recurrent UTI, now admitted for observation in the setting of foul smelling urine, decreased oral intake, oliguria with rise in serum Cr which is thought to be due to UTI. Pt started on ceftriaxone while awaiting urine culture. PLAN: 1. UTI: - f/u ucx -continue ceftriaxone -villareal to be changed overnight - tylenol PRN fever 2. Afib -c/w eliquis -f/u digoxin level -hold dig in the setting og SHAKIR 3. COPD/asthma -Nebs q8hrs -chest PT -OOB to chair as tolerated 4. SHAKIR - gently rehydration in light of CHF history 5. BPH -flomax 0.4mg daily -finasteride 5mg daily 6. DMII -insulin SS 7. PPX -senna and colace bowel regimen 8. CHF -hold torsemide due to dehydration and SHAKIR Visit type - Emergency Visit Emergency Visit: Yes ED Registration Date: 05/29/18 Care time: The patient presented to the Emergency Department on the above date and was hospitalized for further evaluation of their emergent condition. - New Patient This patient is new to me today: Yes Date on this admission: 05/29/18 (48hr observation unit) - Critical Care Critical Care patient: No
[2018-05-29] MEDS ORDERED: PATIENT'S OWN MEDICATION (NON-FORMULARY) (Cran/Vitc/Mannose/Fos/Bromeln [Uti-Stat Liquid] PO SCH (22:00)
[2018-05-29 22:36] LABS: MAGNESIUM 1.4 mg/dL (1.8-2.4); PHOSPHOROUS 3.3 mg/dL (2.5-4.9)
[2018-05-29] MEDS ORDERED: MAGNESIUM 1GM/D5W - 1 GM/100 ML IVPB IVPB ONE (23:30)
[2018-05-30 01:07] LABS: ARTERIAL BLD GAS O2 SATURATION 97.5 % (90-98.9); ARTERIAL BLOOD GAS BASE EXCESS 1.4 meq/l (-2-2); ARTERIAL BLOOD GAS PCO2 47.4 mmHg (35-45); ARTERIAL BLOOD GAS PO2 99.2 mmHg (70-100); ARTERIAL BLOOD GAS pH 7.37 (7.35-7.45)
[2018-05-30 01:08] LABS: ALLENS TEST POSITIVE
[2018-05-30 01:11] LABS: CARBOXYHEMOGLOBIN 1.1 gm% (0.5-2.0)
[2018-05-30] MEDS: ALBUTEROL SO4 0.083% IH SOL 2.5 MG/3 ML VIAL.NEB. NEB SCH ×4 (07:33→21:35)
[2018-05-30] MEDS: IPRATROPIUM BR 0.02% 0.5 MG/2.5 ML VIAL.NEB. NEB SCH ×4 (07:33→21:35)
[2018-05-30] MEDS: MAGNESIUM SULFATE IN WATER 2 GM/50 ML IVPB IVPB SCH ×2 (07:56→09:04)
[2018-05-30] MEDS ORDERED: METHYLPHENIDATE HCL 5 MG PO SCH (10:00)
[2018-05-30] MEDS ORDERED: MAGNESIUM SULF 50% (8.12 MEQ/2 ML-1 GM VIAL) IVPB ONE (10:31)
[2018-05-30] MEDS ORDERED: PT OWN MED DRAWER 7, Y5N ONE (10:43)
[2018-05-30] MEDS: TAMSULOSIN HCL 0.4 MG CAP PO SCH (10:47)
[2018-05-30] MEDS: APIXABAN 5 MG TABLET PO SCH (10:48)
[2018-05-30] MEDS: FOLIC ACID 1 MG TABLET (FP) PO SCH (10:48)
[2018-05-30] MEDS: CHOLECALCIFEROL (VITAMIN D3) 1,000 UNIT TABLET (FP) PO SCH (10:48)
[2018-05-30] MEDS: FINASTERIDE 5 MG TABLET (FP) PO SCH (10:48)
[2018-05-30] MEDS: ASCORBIC ACID 500 MG TABLET (FP) PO SCH (10:48)
[2018-05-30] MEDS: PANTOPRAZOLE 20 MG TABLET (FP) PO SCH (10:48)
[2018-05-30] MEDS: AMINO ACIDS/PROTEIN HYDROLYS 30 ML LIQUID.PKT PO SCH ×5 (10:49→22:28)
[2018-05-30] MEDS: SENNOSIDES 8.6MG TABLET (FP) PO SCH ×2 (10:51→22:28)
--- NOTE | 2018-05-30 11:36 | EKG ---
Test Reason : Blood Pressure : / mmHG Vent. Rate : 103 BPM Atrial Rate : 091 BPM P-R Int : 000 ms QRS Dur : 086 ms QT Int : 288 ms P-R-T Axes : 000 034 241 degrees QTc Int : 377 ms ATRIAL FIBRILLATION WITH RAPID VENTRICULAR RESPONSE LOW VOLTAGE QRS NONSPECIFIC ST AND T WAVE ABNORMALITY ABNORMAL ECG WHEN COMPARED WITH ECG OF 09-APR-2018 15:23, NONSPECIFIC T WAVE ABNORMALITY NOW EVIDENT IN LATERAL LEADS Confirmed by Roby Valadez MD ([id number]) on 05/30/2018 11:35:55 AM Referred By: Confirmed By:Roby Valadez MD
[2018-05-30] MEDS: SODIUM CHLORIDE 1,000 ML IV SCH (12:01)
[2018-05-30] MEDS: INSULIN SLIDING SCALE (NOVOLOG) 1 VIAL SQ SCH ×4 (12:03→22:32)
[2018-05-30] MEDS: POLYETHYLENE GLYCOL 3350 119 GM BTL PO SCH (14:14)
[2018-05-30] MEDS: OMEGA-3 ACID ETHYL ESTERS (FATTY-ACIDS) 1 GM CAPSULE (FP) PO SCH (14:14)
[2018-05-30 14:20] VITALS: BMI 23.8
--- NOTE | 2018-05-30 14:27 | CONSULT ---
Consult Consult Specialty:: Nephrology Reason for Consultation:: SHAKIR - History of Present Illness Chief Complaint: sent in for abnormal lab work History of Present Illness: Pt is a 73 year old male with pmhx of a-fib, COPD, CAD, CKD, proteinuria, HLD and DM who was sent in from the [place] for abnormal labwork. He complains of generalized malaise. He denies shortness of breath. He denies fevers or chills. I was called to evaluate him for elevated creatinine. He was found to be in acute renal failure. He says he has had over a one hundred pound weight loss. - History Source History Provided By: Patient, Medical Record - Past Medical History Cardio/Vascular: Yes: AFIB, CHF, HTN, Hyperlipdemia, Pulmonary Hypertension Pulmonary: Yes: COPD, O2 Dependent, Pneumonia, Sleep Apnea Gastrointestinal: Yes: GERD Renal/: Yes: Renal Inusuff Infectious Disease: Yes: MRSA, Other (ecoli esbl bacteremia due to UTI, 09/25) Endocrine: Yes: Other (MORBIDLY OBESE) - Past Surgical History Past Surgical History: Yes: Tonsillectomy - Alcohol/Substance Use Hx Alcohol Use: No - Smoking History Smoking history: Former smoker Have you smoked in the past 12 months: No Aproximately how many cigarettes per day: 0 If you are a former smoker, when did you quit?: 6 years ago - Social History Usual Living Arrangement: Alf ADL: Independent Occupation: retired History of Recent Travel: No Home Medications - Allergies Allergies/Adverse Reactions: Allergies Allergy/AdvReac Type Severity Reaction Status Date / Time No Known Allergies Allergy Verified 05/29/18 16:29 - Home Medications Home Medications: Ambulatory Orders Acetaminophen [Tylenol] 325 mg PO Q6H PRN 04/03/18 Amino Acids/Protein Hydrolys [Pro-Stat Liquid] 30 ml PO BID 04/03/18 Apixaban [Eliquis] 5 mg PO DAILY 04/03/18 Ascorbic Acid [Vitamin C] 500 mg PO DAILY 04/03/18 Budesonide/Formeterol Fumarate [SYMBICORT 160/4.5mcg -] 1 inh PO BID 04/03/18 Cephalexin [Keflex] 250 mg PO Q6H 04/03/18 Cholecalciferol (Vitamin D3) [Vitamin D3] 1,000 unit PO DAILY 04/03/18 Cran/Vitc/Mannose/Fos/Bromeln [Uti-Stat Liquid] 30 ml PO TID 04/03/18 Cyanocobalamin [Vitamin B12 -] 1,000 mcg PO DAILY 04/03/18 Digoxin 125 mcg PO ASDIR 04/03/18 Digoxin 125 mcg PO ASDIR 04/03/18 Finasteride 5 mg PO DAILY 04/03/18 Folic Acid 1 mg PO DAILY 04/03/18 Gabapentin 200 mg PO TID 04/03/18 Methylphenidate HCl [Ritalin LA] 5 mg PO DAILY 04/03/18 Wingina-3 Fatty Acids [Wingina-3] 1,000 mg PO DAILY 04/03/18 Omeprazole 20 mg PO DAILY 04/03/18 Polyethylene Glycol 3350 [Miralax 119 gm Btl -] 17 gm PO DAILY 04/03/18 Potassium Citrate [Potassium Citrate ER] 10 meq PO DAILY 04/03/18 Saliva Substitute Combo No.9 [Biotene] 30 ml MM TID 04/03/18 Tamsulosin HCl [Flomax -] 0.8 mg PO DAILY 04/03/18 Zinc Sulfate 220 mg PO DAILY 04/03/18 Amino Acids/Protein Hydrolys [Prosource No Carb Liquid Pkt] 30 ml PO BID@0800, 1730 packet 04/08/18 Insulin Sliding Scale [Novolog Vial Sliding Scale -] 1 vial SQ ACHS units 04/08 Torsemide [Demadex -] 20 mg PO DAILY tablet 04/08/18 oxyCODONE HCL [Roxicodone -] 10 mg PO Q6H PRN tablet MDD 4 04/08/18 Sennosides [Senna -] 1 tab PO HS tablet 04/10/18 Sulfamethoxazole/Trimethoprim [Bactrim DS -] 1 each PO BID #10 tablet 04/10/18 Family Disease History - Family Disease History Family History: Denies Review of Systems - Review of Systems Constitutional: reports: Malaise Eyes: reports: No Symptoms HENT: reports: No Symptoms Neck: reports: No Symptoms Cardiovascular: reports: No Symptoms Respiratory: reports: No Symptoms Gastrointestinal: reports: No Symptoms Genitourinary: reports: No Symptoms Musculoskeletal: reports: Back Pain Integumentary: reports: No Symptoms Neurological: reports: No Symptoms Endocrine: reports: No Symptoms Hematology/Lymphatic: reports: No Symptoms Psychiatric: reports: No Symptoms Physical Exam Vital Signs: Vital Signs Temperature 97.7 F 05/30/18 06:18 Pulse Rate 90 05/30/18 06:18 Respiratory Rate 20 05/30/18 06:18 Blood Pressure 90/57 L 05/30/18 06:18 O2 Sat by Pulse Oximetry (%) 97 05/30/18 06:18 Constitutional: Yes: Calm, Mild Distress Eyes: Yes: Conjunctiva Clear HENT: Yes: Atraumatic Cardiovascular: Yes: S1, S2 Respiratory: Yes: CTA Bilaterally Gastrointestinal: Yes: Soft Renal/: Yes: Mathews Present Musculoskeletal: Yes: WNL Edema: No Neurological: Yes: Oriented Psychiatric: Yes: Oriented Labs: CBC, BMP 05/29/18 17:00 05/29/18 17:00 Laboratory Tests 05/29/18 05/29/18 05/29/18 17:00 17:00 20:01 Hgb 10.5 L BUN 56 H Creatinine 2.6 H Magnesium 1.5 L Urine Protein 3+ H D Ur Leukocyte Esterase 2+ H 05/29/18 21:15 Hgb BUN Creatinine Magnesium 1.4 L Urine Protein Ur Leukocyte Esterase Imaging - Results Chest X-ray: Report Reviewed Cat Scan: Report Reviewed Problem List - Problems (1) SHAKIR (acute kidney injury) Code(s): N17.9 - ACUTE KIDNEY FAILURE, UNSPECIFIED (2) Atrial fibrillation Code(s): I48.91 - UNSPECIFIED ATRIAL FIBRILLATION Qualifiers: Atrial fibrillation type: chronic Qualified Code(s): I48.2 - Chronic atrial fibrillation (3) UTI (urinary tract infection) Code(s): N39.0 - URINARY TRACT INFECTION, SITE NOT SPECIFIED Qualifiers: Urinary tract infection type: catheter-associated UTI Indwelling urinary catheter type: indwelling urethral catheter Encounter type: initial encounter Qualified Code(s): T83.511A - Infection and inflammatory reaction due to indwelling urethral catheter, initial encounter; N39.0 - Urinary tract infection , site not specified Assessment/Plan Current Medications Generic Name Dose Route Start Last Admin Trade Name Freq PRN Reason Stop Dose Admin Acetaminophen 650 mg 05/29/18 20:09 Tylenol - PO Q4H PRN temp > 101 Acetaminophen 325 mg 05/29/18 21:21 Tylenol - PO Q6H PRN PAIN Albuterol Sulfate 1 amp 05/30/18 08:00 05/30/18 07:33 Ventolin 0.083% Nebulizer Soln - NEB 1 amp RQID ARVIND Administration Amino Acids 30 ml 05/29/18 22:00 05/30/18 10:55 Prosource No Carb Liquid Pkt PO Not Given BID ARVIND Amino Acids 30 ml 05/30/18 08:00 05/30/18 10:49 Prosource No Carb Liquid Pkt PO 30 ml BID@0800,1730 ARVIND Administration Apixaban 5 mg 05/30/18 10:00 05/30/18 10:48 Eliquis - PO 5 mg DAILY ARVIND Administration Ascorbic Acid 500 mg 05/30/18 10:00 05/30/18 10:48 Vitamin C - PO 500 mg DAILY ARVIND Administration Cholecalciferol 1,000 unit 05/30/18 10:00 05/30/18 10:48 Vitamin D3 - PO 1,000 unit DAILY ARVIND Administration Docusate Sodium 100 mg 05/29/18 20:09 Colace - PO BID PRN CONSTIPATION Finasteride 5 mg 05/30/18 10:00 05/30/18 10:48 Proscar - PO 5 mg DAILY ARVIND Administration Folic Acid 1 mg 05/30/18 10:00 05/30/18 10:48 Folic Acid - PO 1 mg DAILY ARVIND Administration Sodium Chloride 1,000 mls @ 75 mls/hr 05/30/18 10:45 05/30/18 12:01 Normal Saline - IV 75 mls/hr ASDIR ARVIND Administration Insulin Aspart 1 vial 05/30/18 07:00 05/30/18 12:05 Novolog Vial Sliding Scale - SQ Not Given ACHS [facility] Protocol Ipratropium [place] 1 amp 05/30/18 08:00 05/30/18 07:33 Atrovent 0.02% Nebulizer - NEB 1 amp RQID ARVIND Administration Ffwen-4-Vmuj Ethyl Esters 1 gm 05/30/18 10:00 05/30/18 14:14 Lovaza - PO 1 gm DAILY ARVIND Administration Pantoprazole Sodium 20 mg 05/30/18 10:00 05/30/18 10:48 Protonix - PO 20 mg DAILY ARVIND Administration Polyethylene Glycol 17 gm 05/30/18 10:00 05/30/18 14:14 Miralax (For Daily Use) - PO 17 gm DAILY ARVIND Administration Senna 1 tab 05/29/18 22:00 05/30/18 10:51 Senna - PO Not Given HS ARVIND Tamsulosin HCl 0.8 mg 05/30/18 08:30 05/30/18 10:47 Flomax - PO 0.8 mg DAILY@0830 ARVIND Administration Impression 1. proteinuria 2. CHF 3. obstructive sleep apnea 4. obesity 5. DM 6. HTN 7. hyperlipidemia 8. SHAKIR 9. unexplained weight loss 10. UTI 11. hypomagnesemia Plan - cont fluids - check bmp - check renal ultrasound - abx for UTI - will need to workup up weight loss - replace mag - check spep - will follow Dr Aguilar
--- NOTE | 2018-05-30 15:13 | PN ---
Progress Note, Physician Chief Complaint: ASLEEP AMS WEAK EVENTS AND NOTES REVIEWED - Current Medication List Current Medications: Active Medications Acetaminophen (Tylenol -) 650 mg PO Q4H PRN PRN Reason: temp > 101 Acetaminophen (Tylenol -) 325 mg PO Q6H PRN PRN Reason: PAIN Albuterol Sulfate (Ventolin 0.083% Nebulizer Soln -) 1 amp NEB RQID [facility] Last Admin: 05/30/18 07:33 Dose: 1 amp Amino Acids (Prosource No Carb Liquid Pkt) 30 ml PO BID [facility] Last Admin: 05/30/18 10:55 Dose: Not Given Amino Acids (Prosource No Carb Liquid Pkt) 30 ml PO BID@0800,1730 [facility] Last Admin: 05/30/18 10:49 Dose: 30 ml Apixaban (Eliquis -) 5 mg PO DAILY [facility] Last Admin: 05/30/18 10:48 Dose: 5 mg Ascorbic Acid (Vitamin C -) 500 mg PO DAILY [facility] Last Admin: 05/30/18 10:48 Dose: 500 mg Cholecalciferol (Vitamin D3 -) 1,000 unit PO DAILY [facility] Last Admin: 05/30/18 10:48 Dose: 1,000 unit Docusate Sodium (Colace -) 100 mg PO BID PRN PRN Reason: CONSTIPATION Finasteride (Proscar -) 5 mg PO DAILY [facility] Last Admin: 05/30/18 10:48 Dose: 5 mg Folic Acid (Folic Acid -) 1 mg PO DAILY [facility] Last Admin: 05/30/18 10:48 Dose: 1 mg Sodium Chloride (Normal Saline -) 1,000 mls @ 75 mls/hr IV ASDIR [facility] Last Admin: 05/30/18 12:01 Dose: 75 mls/hr Insulin Aspart (Novolog Vial Sliding Scale -) 1 vial SQ ACHS [facility]; Protocol Last Admin: 05/30/18 12:05 Dose: Not Given Ipratropium [place] (Atrovent 0.02% Nebulizer -) 1 amp NEB RQID [facility] Last Admin: 05/30/18 07:33 Dose: 1 amp Wolop-7-Aogd Ethyl Esters (Lovaza -) 1 gm PO DAILY [facility] Last Admin: 05/30/18 14:14 Dose: 1 gm Pantoprazole Sodium (Protonix -) 20 mg PO DAILY [facility] Last Admin: 05/30/18 10:48 Dose: 20 mg Polyethylene Glycol (Miralax (For Daily Use) -) 17 gm PO DAILY [facility] Last Admin: 05/30/18 14:14 Dose: 17 gm Senna (Senna -) 1 tab PO HS [facility] Last Admin: 05/30/18 10:51 Dose: Not Given Tamsulosin HCl (Flomax -) 0.8 mg PO DAILY@0830 [facility] Last Admin: 05/30/18 10:47 Dose: 0.8 mg - Objective Vital Signs: Vital Signs Temperature 97.7 F 05/30/18 06:18 Pulse Rate 90 05/30/18 06:18 Respiratory Rate 20 05/30/18 06:18 Blood Pressure 90/57 L 05/30/18 06:18 O2 Sat by Pulse Oximetry (%) 97 05/30/18 06:18 Constitutional: Yes: Mild Distress Cardiovascular: Yes: Pulse Irregular Respiratory: Yes: Cough, Diminished, On Nasal O2 Gastrointestinal: Yes: Other Genitourinary: Yes: Incontinence Musculoskeletal: Yes: Muscle Weakness Extremities: Yes: Other Integumentary: Yes: Pressure Ulcer (STAGE 2 SACRAL) Neurological: Yes: Pre-Existing Deficit, Weakness ...Motor Strength: LLE, RLE Psychiatric: Yes: Other Labs: CBC, BMP 05/29/18 17:00 05/29/18 17:00 INR, PTT INR 1.82 (0.83-1.09) H 05/29/18 17:00 Problem List - Problems (1) SHAKIR (acute kidney injury) Code(s): N17.9 - ACUTE KIDNEY FAILURE, UNSPECIFIED (2) Atrial fibrillation Code(s): I48.91 - UNSPECIFIED ATRIAL FIBRILLATION Qualifiers: Atrial fibrillation type: chronic Qualified Code(s): I48.2 - Chronic atrial fibrillation (3) UTI (urinary tract infection) Code(s): N39.0 - URINARY TRACT INFECTION, SITE NOT SPECIFIED Qualifiers: Urinary tract infection type: catheter-associated UTI Indwelling urinary catheter type: indwelling urethral catheter Encounter type: initial encounter Qualified Code(s): T83.511A - Infection and inflammatory reaction due to indwelling urethral catheter, initial encounter; N39.0 - Urinary tract infection , site not specified (4) Acute CHF Code(s): I50.9 - HEART FAILURE, UNSPECIFIED (5) Acute bronchitis Code(s): J20.9 - ACUTE BRONCHITIS, UNSPECIFIED Qualifiers: Bronchitis organism: unspecified organism Qualified Code(s): J20.9 - Acute bronchitis, unspecified (6) Acute bronchitis with COPD Code(s): J44.0 - CHRONIC OBSTRUCTIVE PULMON DISEASE W ACUTE LOWER RESP INFCT (7) Dyspnea Code(s): R06.00 - DYSPNEA, UNSPECIFIED Qualifiers: Dyspnea type: shortness of breath Qualified Code(s): R06.02 - Shortness of breath (8) Sleep apnea Code(s): G47.30 - SLEEP APNEA, UNSPECIFIED (9) Type 2 diabetes mellitus with diabetic neuropathy Code(s): E11.40 - TYPE 2 DIABETES MELLITUS WITH DIABETIC NEUROPATHY, UNSP Assessment/Plan IV ABX NEBS 02 SUPPORT CARDIO/PULM/ID FOLLOW UP SEVERE WEAKNESS AND MUSCLE ATROPHY LIKELY FROM CHRONIC STEROID US EL PT MEME
--- NOTE | 2018-05-30 16:04 | PN ---
Progress Note (short form) - Note Progress Note: ID Consult dictated UTI/possible sepsis secondary to UTI ? Toxic metabolic encephalopathy Hx ESBL Azotemia Await c/s Empiric ertapenem, adjusted for renal failure
--- NOTE | 2018-05-30 16:34 | CONS ---
INFECTIOUS DISEASE CONSULTATION DATE OF CONSULTATION: DATE OF DICTATION: 05/30/2018 Patient is a 73-year-old male evaluated for urinary tract infection, possible sepsis. History was obtained from the chart as he cannot give a history at the present time. He is a senior living resident. He was transferred from the senior living to the hospital after he was noted to have worsening mental status, anorexia, and decreased urinary output. He has a history of BPH and has a chronic indwelling Mathews catheter. The urine in the collection bag was described as cloudy and malodorous. He was transferred to the emergency room where he was noted to be in acute renal failure. Blood cultures were obtained. He was empirically treated with ceftriaxone. Patient has a history of ESBL in the urine. PAST MEDICAL HISTORY: Positive for insulin-dependent diabetes mellitus, atrial fibrillation, COPD, coronary artery disease, pulmonary hypertension, hyperlipidemia, BPH. ALLERGIES: No known allergies. MEDICATIONS: Presently include Flomax, Tylenol, Eliquis, Lovaza, Colace, NovoLog, Protonix, Proscar, folic acid, vitamin C. SOCIAL HISTORY: [facility] resident, former smoker. SYSTEMS REVIEW: Neurologic: As per HPI. Cardiac: Negative chest pain or palpitations. Respiratory: Negative cough or sputum production. Gastrointestinal: Negative vomiting or diarrhea. Genitourinary: As per HPI. LABORATORY DATA: White count 9.7, hematocrit 30.4, platelet count 433. BUN 56, creatinine 2.6. Urinalysis: White cells 271. Chest x-ray negative. CAT scan of the head shows moderate atrophy without acute pathology. PHYSICAL EXAMINATION: General: He is awake. He is lethargic, offers no complaints, in no acute distress, not acutely toxic appearing. Vital Signs: Temperature 98.0; blood pressure 100/70; pulse 84, regular; respirations 18 per minute. HEENT: Sclerae are anicteric. Dry mucous membranes. Heart: Sounds S1, S2. Lungs: Grossly clear. Poor inspiratory effort. Abdomen: Soft. No tenderness elicited. No mass, rebound, or rigidity. No suprapubic or flank tenderness. Extremities: Positive for pedal edema. Genitourinary: Mathews catheter in place. Urine is concentrated. IMPRESSION: 1. Urinary tract infection/possible sepsis secondary to urinary tract infection. 2. Rule out toxic metabolic encephalopathy. 3. History of extended spectrum beta-lactamase urinary tract infection. 4. Azotemia. Await cultures. Empiric antibiotic coverage with ertapenem, adjusted for renal insufficiency. IV fluid hydration. Supportive measures. Contact precautions. Will follow. Thank you for the kind referral. EVANS ARECHIGA M.D. [id number]
[2018-05-30] MEDS: ERTAPENEM SODIUM 0.5 GM in SODIUM CHLORIDE 50 ML IVPB SCH (17:25)
[2018-05-30] MEDS: ACETAMINOPHEN 325 MG TABLET (FP) PO PRN (20:17)
[2018-05-31] MEDS: SODIUM CHLORIDE 1,000 ML IV SCH ×2 (02:48→17:29)
[2018-05-31] MEDS: INSULIN SLIDING SCALE (NOVOLOG) 1 VIAL SQ SCH ×4 (06:37→22:04)
[2018-05-31] MEDS: IPRATROPIUM BR 0.02% 0.5 MG/2.5 ML VIAL.NEB. NEB SCH ×4 (07:29→20:26)
[2018-05-31] MEDS: ALBUTEROL SO4 0.083% IH SOL 2.5 MG/3 ML VIAL.NEB. NEB SCH ×4 (07:30→20:26)
[2018-05-31 07:36] LABS: HEMATOCRIT 26.8 % (35.4-49); HEMOGLOBIN 8.6 GM/dL (11.7-16.9); MCH 30.8 pg (25.7-33.7); MCHC 32.2 g/dl (32.0-35.9); MEAN CELL VOLUME 95.8 fl (80-96); MEAN PLT VOLUME 8.6 fl (7.5-11.1); PLATELET COUNT 317 K/MM3 (134-434); RBC 2.79 M/mm3 (4.00-5.60); RDW 15.3 % (11.9-15.9)
[2018-05-31] MEDS: AMINO ACIDS/PROTEIN HYDROLYS 30 ML LIQUID.PKT PO SCH ×3 (08:12→17:28)
[2018-05-31] MEDS: TAMSULOSIN HCL 0.4 MG CAP PO SCH (08:13)
[2018-05-31 08:30] LABS: ALBUMIN 1.4 g/dl (3.4-5.0); ALK PHOS 81 U/L (45-117); ANION GAP 9 MMOL/L (8-16); BILIRUBIN,TOTAL 0.6 mg/dL (0.2-1); BLOOD UREA NITROGEN 53 mg/dL (7-18); CALCIUM 7.9 mg/dL (8.5-10.1); CHLORIDE 105 mmol/L (98-107); CO2 28 mmol/L (21-32); CREATININE 2.4 mg/dL (0.55-1.3); GLUCOSE,RANDOM 73 mg/dL (74-106); MAGNESIUM 2.2 mg/dL (1.8-2.4); POTASSIUM 3.9 mmol/L (3.5-5.1); SGOT/AST 17 U/L (15-37); SGPT/ALT 8 U/L (13-61); SODIUM 142 mmol/L (136-145); TOT PROT 5.8 g/dl (6.4-8.2)
[2018-05-31] MEDS: FINASTERIDE 5 MG TABLET (FP) PO SCH (10:11)
[2018-05-31] MEDS: PANTOPRAZOLE 20 MG TABLET (FP) PO SCH (10:12)
[2018-05-31] MEDS: ASCORBIC ACID 500 MG TABLET (FP) PO SCH (10:12)
[2018-05-31] MEDS: FOLIC ACID 1 MG TABLET (FP) PO SCH (10:13)
[2018-05-31] MEDS: CHOLECALCIFEROL (VITAMIN D3) 1,000 UNIT TABLET (FP) PO SCH (10:13)
[2018-05-31] MEDS: APIXABAN 5 MG TABLET PO SCH (10:13)
[2018-05-31] MEDS: ACETAMINOPHEN 325 MG TABLET (FP) PO PRN ×2 (10:14→19:04)
[2018-05-31] MEDS: OMEGA-3 ACID ETHYL ESTERS (FATTY-ACIDS) 1 GM CAPSULE (FP) PO SCH (10:29)
[2018-05-31] MEDS: POLYETHYLENE GLYCOL 3350 119 GM BTL PO SCH (10:31)
[2018-05-31] MEDS: ERTAPENEM SODIUM 0.5 GM in SODIUM CHLORIDE 50 ML IVPB SCH (10:42)
--- NOTE | 2018-05-31 12:57 | PN ---
Progress Note, Physician History of Present Illness: Pt seen and examined at bedside. He is awake and alert. He denies shortness of breath. He appears more comfortable today. - Current Medication List Current Medications: Active Medications Acetaminophen (Tylenol -) 650 mg PO Q4H PRN PRN Reason: temp > 101 Last Admin: 05/31/18 10:14 Dose: 650 mg Acetaminophen (Tylenol -) 325 mg PO Q6H PRN PRN Reason: PAIN Albuterol Sulfate (Ventolin 0.083% Nebulizer Soln -) 1 amp NEB RQID REPLACED BY [facility] Last Admin: 05/31/18 12:05 Dose: Not Given Amino Acids (Prosource No Carb Liquid Pkt) 30 ml PO BID REPLACED BY [facility] Last Admin: 05/31/18 10:12 Dose: Not Given Amino Acids (Prosource No Carb Liquid Pkt) 30 ml PO BID@0800,1730 REPLACED BY [facility] Last Admin: 05/31/18 08:12 Dose: 30 ml Apixaban (Eliquis -) 5 mg PO DAILY REPLACED BY [facility] Last Admin: 05/31/18 10:13 Dose: 5 mg Ascorbic Acid (Vitamin C -) 500 mg PO DAILY REPLACED BY [facility] Last Admin: 05/31/18 10:12 Dose: 500 mg Cholecalciferol (Vitamin D3 -) 1,000 unit PO DAILY REPLACED BY [facility] Last Admin: 05/31/18 10:13 Dose: 1,000 unit Docusate Sodium (Colace -) 100 mg PO BID PRN PRN Reason: CONSTIPATION Finasteride (Proscar -) 5 mg PO DAILY REPLACED BY [facility] Last Admin: 05/31/18 10:11 Dose: 5 mg Folic Acid (Folic Acid -) 1 mg PO DAILY REPLACED BY [facility] Last Admin: 05/31/18 10:13 Dose: 1 mg Sodium Chloride (Normal Saline -) 1,000 mls @ 75 mls/hr IV ASDIR REPLACED BY [facility] Last Admin: 05/31/18 02:48 Dose: 75 mls/hr Ertapenem 0.5 gm/ Sodium (Chloride) 50 mls @ 100 mls/hr IVPB DAILY REPLACED BY [facility]; Protocol Last Admin: 05/30/18 17:25 Dose: 100 mls/hr Insulin Aspart (Novolog Vial Sliding Scale -) 1 vial SQ ACHS REPLACED BY [facility]; Protocol Last Admin: 05/31/18 06:37 Dose: Not Given Ipratropium [place] (Atrovent 0.02% Nebulizer -) 1 amp NEB RQID REPLACED BY [facility] Last Admin: 05/31/18 12:04 Dose: Not Given Kbfge-3-Euqe Ethyl Esters (Lovaza -) 1 gm PO DAILY REPLACED BY [facility] Last Admin: 05/30/18 14:14 Dose: 1 gm Pantoprazole Sodium (Protonix -) 20 mg PO DAILY REPLACED BY [facility] Last Admin: 05/31/18 10:12 Dose: 20 mg Polyethylene Glycol (Miralax (For Daily Use) -) 17 gm PO DAILY REPLACED BY [facility] Last Admin: 05/30/18 14:14 Dose: 17 gm Senna (Senna -) 1 tab PO HS REPLACED BY [facility] Last Admin: 05/30/18 22:28 Dose: 1 tab Tamsulosin HCl (Flomax -) 0.8 mg PO DAILY@0830 REPLACED BY [facility] Last Admin: 05/31/18 08:13 Dose: 0.8 mg - Objective Vital Signs: Vital Signs Temperature 97.2 F L 05/31/18 06:00 Pulse Rate 82 05/31/18 06:00 Respiratory Rate 20 05/31/18 06:00 Blood Pressure 100/57 L 05/31/18 06:00 O2 Sat by Pulse Oximetry (%) 95 05/30/18 22:00 Constitutional: Yes: Calm Eyes: Yes: Conjunctiva Clear HENT: Yes: Atraumatic Cardiovascular: Yes: S1, S2 Respiratory: Yes: CTA Bilaterally, On Nasal O2 Gastrointestinal: Yes: Soft Musculoskeletal: Yes: WNL Edema: No Neurological: Yes: Oriented Psychiatric: Yes: Oriented Labs: CBC, BMP 05/31/18 06:30 05/31/18 06:30 INR, PTT INR 1.82 (0.83-1.09) H 05/29/18 17:00 Problem List - Problems (1) SHAKIR (acute kidney injury) Code(s): N17.9 - ACUTE KIDNEY FAILURE, UNSPECIFIED (2) Atrial fibrillation Code(s): I48.91 - UNSPECIFIED ATRIAL FIBRILLATION Qualifiers: Atrial fibrillation type: chronic Qualified Code(s): I48.2 - Chronic atrial fibrillation (3) UTI (urinary tract infection) Code(s): N39.0 - URINARY TRACT INFECTION, SITE NOT SPECIFIED Qualifiers: Urinary tract infection type: catheter-associated UTI Indwelling urinary catheter type: indwelling urethral catheter Encounter type: initial encounter Qualified Code(s): T83.511A - Infection and inflammatory reaction due to indwelling urethral catheter, initial encounter; N39.0 - Urinary tract infection , site not specified Assessment/Plan Current Medications Generic Name Dose Route Start Last Admin Trade Name Freq PRN Reason Stop Dose Admin Acetaminophen 650 mg 05/29/18 20:09 05/31/18 10:14 Tylenol - PO 650 mg Q4H PRN Administration temp > 101 Acetaminophen 325 mg 05/29/18 21:21 Tylenol - PO Q6H PRN PAIN Albuterol Sulfate 1 amp 05/30/18 08:00 05/31/18 12:05 Ventolin 0.083% Nebulizer Soln - NEB Not Given RQID ARVIND Amino Acids 30 ml 05/29/18 22:00 05/31/18 10:12 Prosource No Carb Liquid Pkt PO Not Given BID ARVIND Amino Acids 30 ml 05/30/18 08:00 05/31/18 08:12 Prosource No Carb Liquid Pkt PO 30 ml BID@0800,1730 ARVIND Administration Apixaban 5 mg 05/30/18 10:00 05/31/18 10:13 Eliquis - PO 5 mg DAILY ARVIND Administration Ascorbic Acid 500 mg 05/30/18 10:00 05/31/18 10:12 Vitamin C - PO 500 mg DAILY ARVIND Administration Cholecalciferol 1,000 unit 05/30/18 10:00 05/31/18 10:13 Vitamin D3 - PO 1,000 unit DAILY ARVIND Administration Docusate Sodium 100 mg 05/29/18 20:09 Colace - PO BID PRN CONSTIPATION Finasteride 5 mg 05/30/18 10:00 05/31/18 10:11 Proscar - PO 5 mg DAILY ARVIND Administration Folic Acid 1 mg 05/30/18 10:00 05/31/18 10:13 Folic Acid - PO 1 mg DAILY ARVIND Administration Sodium Chloride 1,000 mls @ 75 mls/hr 05/30/18 10:45 05/31/18 02:48 Normal Saline - IV 75 mls/hr ASDIR ARVIND Administration Ertapenem 0.5 gm/ Sodium 50 mls @ 100 mls/hr 05/30/18 17:00 05/30/18 17:25 Chloride IVPB 100 mls/hr DAILY ARVNID Administration Protocol Insulin Aspart 1 vial 05/30/18 07:00 05/31/18 06:37 Novolog Vial Sliding Scale - SQ Not Given ACHS REPLACED BY [facility] Protocol Ipratropium [place] 1 amp 05/30/18 08:00 05/31/18 12:04 Atrovent 0.02% Nebulizer - NEB Not Given RQID ARVIND Uudot-6-Cick Ethyl Esters 1 gm 05/30/18 10:00 05/30/18 14:14 Lovaza - PO 1 gm DAILY ARVIND Administration Pantoprazole Sodium 20 mg 05/30/18 10:00 05/31/18 10:12 Protonix - PO 20 mg DAILY ARVIND Administration Polyethylene Glycol 17 gm 05/30/18 10:00 05/30/18 14:14 Miralax (For Daily Use) - PO 17 gm DAILY ARVIND Administration Senna 1 tab 05/29/18 22:00 05/30/18 22:28 Senna - PO 1 tab HS ARVIND Administration Tamsulosin HCl 0.8 mg 05/30/18 08:30 05/31/18 08:13 Flomax - PO 0.8 mg DAILY@0830 ARVIND Administration Impression 1. proteinuria 2. CHF 3. obstructive sleep apnea 4. obesity 5. DM 6. HTN 7. hyperlipidemia 8. SHAKIR 9. unexplained weight loss 10. UTI 11. hypomagnesemia Plan - renal function is improving - cont fluids for now - follow spep - renal ultrasound reviewed - abx for UTI - will need to workup up weight loss - will follow Dr Aguilar
--- NOTE | 2018-05-31 15:34 | PN ---
Progress Note, Physician Chief Complaint: AWAKE ALERT C/O GENERALIZED WEAKNESS - Current Medication List Current Medications: Active Medications Acetaminophen (Tylenol -) 650 mg PO Q4H PRN PRN Reason: temp > 101 Last Admin: 05/31/18 10:14 Dose: 650 mg Acetaminophen (Tylenol -) 325 mg PO Q6H PRN PRN Reason: PAIN Albuterol Sulfate (Ventolin 0.083% Nebulizer Soln -) 1 amp NEB RQID [facility] Last Admin: 05/31/18 12:05 Dose: Not Given Amino Acids (Prosource No Carb Liquid Pkt) 30 ml PO BID@0800,1730 [facility] Last Admin: 05/31/18 08:12 Dose: 30 ml Apixaban (Eliquis -) 5 mg PO DAILY [facility] Last Admin: 05/31/18 10:13 Dose: 5 mg Ascorbic Acid (Vitamin C -) 500 mg PO DAILY [facility] Last Admin: 05/31/18 10:12 Dose: 500 mg Cholecalciferol (Vitamin D3 -) 1,000 unit PO DAILY [facility] Last Admin: 05/31/18 10:13 Dose: 1,000 unit Docusate Sodium (Colace -) 100 mg PO BID PRN PRN Reason: CONSTIPATION Finasteride (Proscar -) 5 mg PO DAILY [facility] Last Admin: 05/31/18 10:11 Dose: 5 mg Folic Acid (Folic Acid -) 1 mg PO DAILY [facility] Last Admin: 05/31/18 10:13 Dose: 1 mg Sodium Chloride (Normal Saline -) 1,000 mls @ 75 mls/hr IV ASDIR [facility] Last Admin: 05/31/18 02:48 Dose: 75 mls/hr Ertapenem 0.5 gm/ Sodium (Chloride) 50 mls @ 100 mls/hr IVPB DAILY [facility]; Protocol Last Admin: 05/30/18 17:25 Dose: 100 mls/hr Insulin Aspart (Novolog Vial Sliding Scale -) 1 vial SQ ACHS [facility]; Protocol Last Admin: 05/31/18 12:20 Dose: Not Given Ipratropium [place] (Atrovent 0.02% Nebulizer -) 1 amp NEB RQID [facility] Last Admin: 05/31/18 12:04 Dose: Not Given [id number]-[id number] Ethyl Esters (Lovaza -) 1 gm PO DAILY [facility] Last Admin: 05/30/18 14:14 Dose: 1 gm Pantoprazole Sodium (Protonix -) 20 mg PO DAILY [facility] Last Admin: 05/31/18 10:12 Dose: 20 mg Polyethylene Glycol (Miralax (For Daily Use) -) 17 gm PO DAILY [facility] Last Admin: 05/30/18 14:14 Dose: 17 gm Senna (Senna -) 1 tab PO HS [facility] Last Admin: 05/30/18 22:28 Dose: 1 tab Tamsulosin HCl (Flomax -) 0.8 mg PO DAILY@0830 [facility] Last Admin: 05/31/18 08:13 Dose: 0.8 mg - Objective Vital Signs: Vital Signs Temperature 97.8 F 05/31/18 15:06 Pulse Rate 104 H 05/31/18 15:06 Respiratory Rate 18 05/31/18 15:06 Blood Pressure 93/58 L 05/31/18 15:06 O2 Sat by Pulse Oximetry (%) 95 05/30/18 22:00 Constitutional: Yes: Mild Distress Eyes: Yes: WNL HENT: Yes: WNL Neck: Yes: WNL Cardiovascular: Yes: Pulse Irregular Respiratory: Yes: Diminished Gastrointestinal: Yes: WNL Genitourinary: Yes: Mathews Present Musculoskeletal: Yes: Muscle Weakness Extremities: Yes: WNL Edema: No Peripheral Pulses WNL: Yes Integumentary: Yes: Pressure Ulcer (STAGE 2 SACRAL) Wound/Incision: Yes: Dressing Dry and Intact Neurological: Yes: Pre-Existing Deficit, Weakness ...Motor Strength: LLE, RLE Psychiatric: Yes: WNL Labs: CBC, BMP 05/31/18 06:30 05/31/18 06:30 INR, PTT INR 1.82 (0.83-1.09) H 05/29/18 17:00 Problem List - Problems (1) SHAKIR (acute kidney injury) Code(s): N17.9 - ACUTE KIDNEY FAILURE, UNSPECIFIED (2) Atrial fibrillation Code(s): I48.91 - UNSPECIFIED ATRIAL FIBRILLATION Qualifiers: Atrial fibrillation type: chronic Qualified Code(s): I48.2 - Chronic atrial fibrillation (3) UTI (urinary tract infection) Code(s): N39.0 - URINARY TRACT INFECTION, SITE NOT SPECIFIED Qualifiers: Urinary tract infection type: catheter-associated UTI Indwelling urinary catheter type: indwelling urethral catheter Encounter type: initial encounter Qualified Code(s): T83.511A - Infection and inflammatory reaction due to indwelling urethral catheter, initial encounter; N39.0 - Urinary tract infection , site not specified (4) Acute CHF Code(s): I50.9 - HEART FAILURE, UNSPECIFIED (5) Acute bronchitis Code(s): J20.9 - ACUTE BRONCHITIS, UNSPECIFIED Qualifiers: Bronchitis organism: unspecified organism Qualified Code(s): J20.9 - Acute bronchitis, unspecified (6) Acute bronchitis with COPD Code(s): J44.0 - CHRONIC OBSTRUCTIVE PULMON DISEASE W ACUTE LOWER RESP INFCT (7) Dyspnea Code(s): R06.00 - DYSPNEA, UNSPECIFIED Qualifiers: Dyspnea type: shortness of breath Qualified Code(s): R06.02 - Shortness of breath (8) Sleep apnea Code(s): G47.30 - SLEEP APNEA, UNSPECIFIED (9) Type 2 diabetes mellitus with diabetic neuropathy Code(s): E11.40 - TYPE 2 DIABETES MELLITUS WITH DIABETIC NEUROPATHY, UNSP Assessment/Plan IV ABX NEBS 02 SUPPORT CARDIO/PULM/ID FOLLOW UP SEVERE WEAKNESS AND MUSCLE ATROPHY LIKELY FROM CHRONIC STEROID US EL PT EVAL
[2018-05-31] MEDS: DULoxetine HCL 30 MG CAPSULE.DR (FP) PO SCH (17:29)
[2018-05-31] MEDS: SENNOSIDES 8.6MG TABLET (FP) PO SCH (22:01)
[2018-06-01] MEDS: INSULIN SLIDING SCALE (NOVOLOG) 1 VIAL SQ SCH ×4 (06:47→21:01)
[2018-06-01] MEDS: SODIUM CHLORIDE 1,000 ML IV SCH ×2 (06:49→15:03)
[2018-06-01] MEDS: ALBUTEROL SO4 0.083% IH SOL 2.5 MG/3 ML VIAL.NEB. NEB SCH ×4 (07:29→20:37)
[2018-06-01] MEDS: IPRATROPIUM BR 0.02% 0.5 MG/2.5 ML VIAL.NEB. NEB SCH ×4 (07:29→20:37)
[2018-06-01 08:21] LABS: HEMATOCRIT 24.6 % (35.4-49); MCH 31.3 pg (25.7-33.7); MCHC 32.6 g/dl (32.0-35.9); MEAN CELL VOLUME 96.3 fl (80-96); MEAN PLT VOLUME 8.8 fl (7.5-11.1); PLATELET COUNT 289 K/MM3 (134-434); RBC 2.56 M/mm3 (4.00-5.60); RDW 15.8 % (11.9-15.9); WHITE BLOOD COUNT 7.6 K/mm3 (4.0-10.0)
--- NOTE | 2018-06-01 08:45 | PN ---
Progress Note, Physician - Current Medication List Current Medications: Active Medications Acetaminophen (Tylenol -) 650 mg PO Q4H PRN PRN Reason: temp > 101 Last Admin: 05/31/18 19:04 Dose: 650 mg Acetaminophen (Tylenol -) 325 mg PO Q6H PRN PRN Reason: PAIN Albuterol Sulfate (Ventolin 0.083% Nebulizer Soln -) 1 amp NEB RQID [facility] Last Admin: 06/01/18 07:29 Dose: 1 amp Amino Acids (Prosource No Carb Liquid Pkt) 30 ml PO BID@0800,1730 [facility] Last Admin: 05/31/18 17:28 Dose: 30 ml Apixaban (Eliquis -) 5 mg PO DAILY [facility] Last Admin: 05/31/18 10:13 Dose: 5 mg Ascorbic Acid (Vitamin C -) 500 mg PO DAILY [facility] Last Admin: 05/31/18 10:12 Dose: 500 mg Cholecalciferol (Vitamin D3 -) 1,000 unit PO DAILY [facility] Last Admin: 05/31/18 10:13 Dose: 1,000 unit Docusate Sodium (Colace -) 100 mg PO BID PRN PRN Reason: CONSTIPATION Duloxetine HCl (Cymbalta -) 30 mg PO DAILY [facility] Last Admin: 05/31/18 17:29 Dose: 30 mg Finasteride (Proscar -) 5 mg PO DAILY [facility] Last Admin: 05/31/18 10:11 Dose: 5 mg Folic Acid (Folic Acid -) 1 mg PO DAILY [facility] Last Admin: 05/31/18 10:13 Dose: 1 mg Sodium Chloride (Normal Saline -) 1,000 mls @ 75 mls/hr IV ASDIR [facility] Last Admin: 06/01/18 06:49 Dose: 75 mls/hr Ertapenem 0.5 gm/ Sodium (Chloride) 50 mls @ 100 mls/hr IVPB DAILY [facility]; Protocol Last Admin: 05/31/18 10:42 Dose: 100 mls/hr Insulin Aspart (Novolog Vial Sliding Scale -) 1 vial SQ ACHS [facility]; Protocol Last Admin: 06/01/18 06:47 Dose: Not Given Ipratropium [place] (Atrovent 0.02% Nebulizer -) 1 amp NEB RQID [facility] Last Admin: 06/01/18 07:29 Dose: 1 amp Multivitamins/Minerals/Vitamin C (Tab-A-Vit -) 1 tab PO DAILY [facility] [id number] Ethyl Esters (Lovaza -) 1 gm PO DAILY [facility] Last Admin: 05/31/18 10:29 Dose: 1 gm Pantoprazole Sodium (Protonix -) 20 mg PO DAILY [facility] Last Admin: 05/31/18 10:12 Dose: 20 mg Polyethylene Glycol (Miralax (For Daily Use) -) 17 gm PO DAILY [facility] Last Admin: 05/31/18 10:31 Dose: 17 gm Senna (Senna -) 1 tab PO HS [facility] Last Admin: 05/31/18 22:01 Dose: Not Given Tamsulosin HCl (Flomax -) 0.8 mg PO DAILY@0830 [facility] Last Admin: 05/31/18 08:13 Dose: 0.8 mg - Objective Vital Signs: Vital Signs Temperature 98.2 F 06/01/18 06:00 Pulse Rate 80 06/01/18 06:00 Respiratory Rate 20 06/01/18 06:00 Blood Pressure 90/44 L 06/01/18 06:00 O2 Sat by Pulse Oximetry (%) 98 05/31/18 21:00 Cardiovascular: Yes: S1, S2 Respiratory: Yes: Regular, CTA Bilaterally Gastrointestinal: Yes: Normal Bowel Sounds, Soft Edema: No Labs: CBC, BMP 06/01/18 06:30 05/31/18 06:30 INR, PTT INR 1.82 (0.83-1.09) H 05/29/18 17:00 Problem List - Problems (1) UTI (urinary tract infection) Assessment/Plan: - f/u ucx Microbiology 05/29/18 20:01 Urine - Urine - Catheterized Urine Culture - Preliminary Escherichia Coli Esbl [employer] D Strep Or Entero Coccus 05/29/18 20:22 Blood - Peripheral Venous Blood Culture - Preliminary NO GROWTH OBTAINED AFTER 48 HOURS, INCUBATION TO CONTINUE FOR 3 DAYS. 05/29/18 21:15 Blood - Peripheral Venous Blood Culture - Preliminary NO GROWTH OBTAINED AFTER 48 HOURS, INCUBATION TO CONTINUE FOR 3 DAYS. -continue etrapenem -villareal - tylenol PRN fever Code(s): N39.0 - URINARY TRACT INFECTION, SITE NOT SPECIFIED Qualifiers: Urinary tract infection type: catheter-associated UTI Indwelling urinary catheter type: indwelling urethral catheter Encounter type: initial encounter Qualified Code(s): T83.511A - Infection and inflammatory reaction due to indwelling urethral catheter, initial encounter; N39.0 - Urinary tract infection , site not specified (2) SHAKIR (acute kidney injury) Assessment/Plan: - gently rehydration in light of CHF history -flomax 0.4mg daily -finasteride 5mg daily Code(s): N17.9 - ACUTE KIDNEY FAILURE, UNSPECIFIED (3) Atrial fibrillation Assessment/Plan: -c/w eliquis -f/u digoxin level -hold dig in the setting og SHAKIR Code(s): I48.91 - UNSPECIFIED ATRIAL FIBRILLATION Qualifiers: Atrial fibrillation type: chronic Qualified Code(s): I48.2 - Chronic atrial fibrillation (4) CHF (congestive heart failure) Assessment/Plan: -hold torsemide due to dehydration and SHAKIR Code(s): I50.9 - HEART FAILURE, UNSPECIFIED (5) COPD (chronic obstructive pulmonary disease) Assessment/Plan: -Nebs q8hrs -chest PT -OOB to chair as tolerated Code(s): J44.9 - CHRONIC OBSTRUCTIVE PULMONARY DISEASE, UNSPECIFIED Qualifiers: COPD type: unspecified COPD Qualified Code(s): J44.9 - Chronic obstructive pulmonary disease, unspecified
[2018-06-01] MEDS: AMINO ACIDS/PROTEIN HYDROLYS 30 ML LIQUID.PKT PO SCH ×2 (08:54→17:54)
[2018-06-01] MEDS: TAMSULOSIN HCL 0.4 MG CAP PO SCH (08:56)
[2018-06-01] MEDS: MULTIVITAMINS (DAILY MVI) TABLET (FP) PO SCH (09:55)
[2018-06-01] MEDS: DULoxetine HCL 30 MG CAPSULE.DR (FP) PO SCH (09:55)
[2018-06-01] MEDS: PANTOPRAZOLE 20 MG TABLET (FP) PO SCH (09:56)
[2018-06-01] MEDS: ASCORBIC ACID 500 MG TABLET (FP) PO SCH (09:56)
[2018-06-01] MEDS: CHOLECALCIFEROL (VITAMIN D3) 1,000 UNIT TABLET (FP) PO SCH (09:56)
[2018-06-01] MEDS: FOLIC ACID 1 MG TABLET (FP) PO SCH (09:56)
[2018-06-01] MEDS: FINASTERIDE 5 MG TABLET (FP) PO SCH (09:57)
[2018-06-01] MEDS: APIXABAN 5 MG TABLET PO SCH (09:57)
[2018-06-01] MEDS: OMEGA-3 ACID ETHYL ESTERS (FATTY-ACIDS) 1 GM CAPSULE (FP) PO SCH (09:57)
[2018-06-01] MEDS: ERTAPENEM SODIUM 0.5 GM in SODIUM CHLORIDE 50 ML IVPB SCH (09:57)
[2018-06-01] MEDS: POLYETHYLENE GLYCOL 3350 119 GM BTL PO SCH (09:57)
[2018-06-01] MEDS: oxyCODONE HCL 5 MG TABLET PO PRN ×2 (10:00→23:29)
--- NOTE | 2018-06-01 13:15 | PN ---
Progress Note, Physician History of Present Illness: Pt seen and examined at bedside. He is awake and alert. He denies shortness of breath. - Current Medication List Current Medications: Active Medications Acetaminophen (Tylenol -) 650 mg PO Q4H PRN PRN Reason: temp > 101 Last Admin: 05/31/18 19:04 Dose: 650 mg Acetaminophen (Tylenol -) 325 mg PO Q6H PRN PRN Reason: PAIN Albuterol Sulfate (Ventolin 0.083% Nebulizer Soln -) 1 amp NEB RQID [facility] Last Admin: 06/01/18 11:14 Dose: 1 amp Amino Acids (Prosource No Carb Liquid Pkt) 30 ml PO BID@0800,1730 [facility] Last Admin: 06/01/18 08:54 Dose: 30 ml Apixaban (Eliquis -) 5 mg PO DAILY [facility] Last Admin: 06/01/18 09:57 Dose: 5 mg Ascorbic Acid (Vitamin C -) 500 mg PO DAILY [facility] Last Admin: 06/01/18 09:56 Dose: 500 mg Cholecalciferol (Vitamin D3 -) 1,000 unit PO DAILY [facility] Last Admin: 06/01/18 09:56 Dose: 1,000 unit Docusate Sodium (Colace -) 100 mg PO BID PRN PRN Reason: CONSTIPATION Duloxetine HCl (Cymbalta -) 30 mg PO DAILY [facility] Last Admin: 06/01/18 09:55 Dose: 30 mg Finasteride (Proscar -) 5 mg PO DAILY [facility] Last Admin: 06/01/18 09:57 Dose: 5 mg Folic Acid (Folic Acid -) 1 mg PO DAILY [facility] Last Admin: 06/01/18 09:56 Dose: 1 mg Sodium Chloride (Normal Saline -) 1,000 mls @ 75 mls/hr IV ASDIR [facility] Last Admin: 06/01/18 06:49 Dose: 75 mls/hr Ertapenem 0.5 gm/ Sodium (Chloride) 50 mls @ 100 mls/hr IVPB DAILY [facility]; Protocol Last Admin: 06/01/18 09:57 Dose: 100 mls/hr Insulin Aspart (Novolog Vial Sliding Scale -) 1 vial SQ ACHS [facility]; Protocol Last Admin: 06/01/18 06:47 Dose: Not Given Ipratropium [place] (Atrovent 0.02% Nebulizer -) 1 amp NEB RQID [facility] Last Admin: 06/01/18 11:14 Dose: 1 amp Multivitamins/Minerals/Vitamin C (Tab-A-Vit -) 1 tab PO DAILY [facility] Last Admin: 06/01/18 09:55 Dose: 1 tab [id number] Ethyl Esters (Lovaza -) 1 gm PO DAILY [facility] Last Admin: 06/01/18 09:57 Dose: 1 gm Oxycodone HCl (Roxicodone -) 5 mg PO Q6H PRN PRN Reason: PAIN LEVEL 4 - 6 Last Admin: 06/01/18 10:00 Dose: 5 mg Pantoprazole Sodium (Protonix -) 20 mg PO DAILY [facility] Last Admin: 06/01/18 09:56 Dose: 20 mg Polyethylene Glycol (Miralax (For Daily Use) -) 17 gm PO DAILY [facility] Last Admin: 06/01/18 09:57 Dose: 17 gm Senna (Senna -) 1 tab PO HS [facility] Last Admin: 05/31/18 22:01 Dose: Not Given Tamsulosin HCl (Flomax -) 0.8 mg PO DAILY@0830 [facility] Last Admin: 06/01/18 08:56 Dose: 0.8 mg - Objective Vital Signs: Vital Signs Temperature 98.3 F 06/01/18 10:00 Pulse Rate 89 06/01/18 10:00 Respiratory Rate 18 06/01/18 10:00 Blood Pressure 86/61 L 06/01/18 10:00 O2 Sat by Pulse Oximetry (%) 100 06/01/18 09:00 Constitutional: Yes: Calm Eyes: Yes: Conjunctiva Clear HENT: Yes: Atraumatic Cardiovascular: Yes: S1, S2 Respiratory: Yes: CTA Bilaterally, On Nasal O2 Gastrointestinal: Yes: Normal Bowel Sounds, Soft Genitourinary: Yes: WNL Musculoskeletal: Yes: Back Pain Edema: No Neurological: Yes: Oriented Psychiatric: Yes: Oriented Labs: CBC, BMP 06/01/18 06:30 05/31/18 06:30 INR, PTT INR 1.82 (0.83-1.09) H 05/29/18 17:00 Problem List - Problems (1) SHAKIR (acute kidney injury) Code(s): N17.9 - ACUTE KIDNEY FAILURE, UNSPECIFIED (2) Atrial fibrillation Code(s): I48.91 - UNSPECIFIED ATRIAL FIBRILLATION Qualifiers: Atrial fibrillation type: chronic Qualified Code(s): I48.2 - Chronic atrial fibrillation (3) UTI (urinary tract infection) Code(s): N39.0 - URINARY TRACT INFECTION, SITE NOT SPECIFIED Qualifiers: Urinary tract infection type: catheter-associated UTI Indwelling urinary catheter type: indwelling urethral catheter Encounter type: initial encounter Qualified Code(s): T83.511A - Infection and inflammatory reaction due to indwelling urethral catheter, initial encounter; N39.0 - Urinary tract infection , site not specified Assessment/Plan Current Medications Generic Name Dose Route Start Last Admin Trade Name Freq PRN Reason Stop Dose Admin Acetaminophen 650 mg 05/29/18 20:09 05/31/18 19:04 Tylenol - PO 650 mg Q4H PRN Administration temp > 101 Acetaminophen 325 mg 05/29/18 21:21 Tylenol - PO Q6H PRN PAIN Albuterol Sulfate 1 amp 05/30/18 08:00 06/01/18 11:14 Ventolin 0.083% Nebulizer Soln - NEB 1 amp RQID [facility] Administration Amino Acids 30 ml 05/30/18 08:00 06/01/18 08:54 Prosource No Carb Liquid Pkt PO 30 ml BID@0800,1730 [facility] Administration Apixaban 5 mg 05/30/18 10:00 06/01/18 09:57 Eliquis - PO 5 mg DAILY [facility] Administration Ascorbic Acid 500 mg 05/30/18 10:00 06/01/18 09:56 Vitamin C - PO 500 mg DAILY [facility] Administration Cholecalciferol 1,000 unit 05/30/18 10:00 06/01/18 09:56 Vitamin D3 - PO 1,000 unit DAILY [facility] Administration Docusate Sodium 100 mg 05/29/18 20:09 Colace - PO BID PRN CONSTIPATION Duloxetine HCl 30 mg 05/31/18 15:45 06/01/18 09:55 Cymbalta - PO 30 mg DAILY [facility] Administration Finasteride 5 mg 05/30/18 10:00 06/01/18 09:57 Proscar - PO 5 mg DAILY [facility] Administration Folic Acid 1 mg 05/30/18 10:00 06/01/18 09:56 Folic Acid - PO 1 mg DAILY [facility] Administration Sodium Chloride 1,000 mls @ 75 mls/hr 05/30/18 10:45 06/01/18 06:49 Normal Saline - IV 75 mls/hr ASDIR [facility] Administration Ertapenem 0.5 gm/ Sodium 50 mls @ 100 mls/hr 05/30/18 17:00 06/01/18 09:57 Chloride IVPB 100 mls/hr DAILY [facility] Administration Protocol Insulin Aspart 1 vial 05/30/18 07:00 06/01/18 06:47 Novolog Vial Sliding Scale - SQ Not Given ACHS [facility] Protocol Ipratropium [place] 1 amp 05/30/18 08:00 06/01/18 11:14 Atrovent 0.02% Nebulizer - NEB 1 amp RQID [facility] Administration Multivitamins/Minerals/Vitamin C 1 tab 06/01/18 10:00 06/01/18 09:55 Tab-A-Vit - PO 1 tab DAILY [facility] Administration [id number] Ethyl Esters 1 gm 05/30/18 10:00 06/01/18 09:57 Lovaza - PO 1 gm DAILY [facility] Administration Oxycodone HCl 5 mg 06/01/18 08:52 06/01/18 10:00 Roxicodone - PO 5 mg Q6H PRN Administration PAIN LEVEL 4 - 6 Pantoprazole Sodium 20 mg 05/30/18 10:00 06/01/18 09:56 Protonix - PO 20 mg DAILY [facility] Administration Polyethylene Glycol 17 gm 05/30/18 10:00 06/01/18 09:57 Miralax (For Daily Use) - PO 17 gm DAILY [facility] Administration Senna 1 tab 05/29/18 22:00 05/31/18 22:01 Senna - PO Not Given HS [facility] Tamsulosin HCl 0.8 mg 05/30/18 08:30 06/01/18 08:56 Flomax - PO 0.8 mg DAILY@0830 [facility] Administration Impression 1. proteinuria 2. CHF 3. obstructive sleep apnea 4. obesity 5. DM 6. HTN 7. hyperlipidemia 8. SHAKIR 9. unexplained weight loss 10. UTI 11. hypomagnesemia Plan - check bmp - renal function was improving - follow spep - cont abx - cont fluids - will need to workup up weight loss - will follow Dr Aguilar
[2018-06-01] MEDS: LIDOCAINE 5% TOPICAL PATCH TP SCH (15:02)
[2018-06-01] MEDS: SENNOSIDES 8.6MG TABLET (FP) PO SCH (21:01)
[2018-06-01] MEDS: LIDOCAINE PATCH REMOVAL MC SCH (21:02)
[2018-06-02] MEDS: INSULIN SLIDING SCALE (NOVOLOG) 1 VIAL SQ SCH ×4 (06:56→21:48)
[2018-06-02] MEDS: oxyCODONE HCL 5 MG TABLET PO PRN ×3 (06:57→21:53)
[2018-06-02] MEDS: IPRATROPIUM BR 0.02% 0.5 MG/2.5 ML VIAL.NEB. NEB SCH ×4 (07:43→20:30)
[2018-06-02] MEDS: ALBUTEROL SO4 0.083% IH SOL 2.5 MG/3 ML VIAL.NEB. NEB SCH ×5 (07:44→20:30)
[2018-06-02 07:52] LABS: BASO % 0.7 % (0-2.0); EOS % 2.7 % (0-4.5); HEMATOCRIT 26.7 % (35.4-49); HEMOGLOBIN 8.6 GM/dL (11.7-16.9); LYMPH % 19.7 % (8-40); MCH 31.2 pg (25.7-33.7); MCHC 32.3 g/dl (32.0-35.9); MEAN CELL VOLUME 96.7 fl (80-96); MEAN PLT VOLUME 8.4 fl (7.5-11.1); MONO % 9.3 % (3.8-10.2); NEUT % 67.6 % (42.8-82.8); PLATELET COUNT 304 K/MM3 (134-434); RBC 2.76 M/mm3 (4.00-5.60); RDW 15.8 % (11.9-15.9); WHITE BLOOD COUNT 6.7 K/mm3 (4.0-10.0)
[2018-06-02 08:23] LABS: GLUCOSE,RANDOM 77 mg/dL (74-106)
[2018-06-02 08:24] LABS: ALBUMIN 1.4 g/dl (3.4-5.0); ALK PHOS 78 U/L (45-117); ANION GAP 8 MMOL/L (8-16); BILIRUBIN,TOTAL 0.4 mg/dL (0.2-1); BLOOD UREA NITROGEN 51 mg/dL (7-18); CALCIUM 7.5 mg/dL (8.5-10.1); CHLORIDE 111 mmol/L (98-107); CO2 25 mmol/L (21-32); CREATININE 2.2 mg/dL (0.55-1.3); POTASSIUM 3.3 mmol/L (3.5-5.1); SGOT/AST 15 U/L (15-37); SGPT/ALT 7 U/L (13-61); SODIUM 144 mmol/L (136-145); TOT PROT 5.7 g/dl (6.4-8.2)
[2018-06-02] MEDS: AMINO ACIDS/PROTEIN HYDROLYS 30 ML LIQUID.PKT PO SCH ×2 (08:38→16:58)
[2018-06-02] MEDS: TAMSULOSIN HCL 0.4 MG CAP PO SCH (08:38)
--- NOTE | 2018-06-02 10:09 | PN ---
Progress Note, Physician - Current Medication List Current Medications: Active Medications Acetaminophen (Tylenol -) 650 mg PO Q4H PRN PRN Reason: temp > 101 Last Admin: 05/31/18 19:04 Dose: 650 mg Acetaminophen (Tylenol -) 325 mg PO Q6H PRN PRN Reason: PAIN Albuterol Sulfate (Ventolin 0.083% Nebulizer Soln -) 1 amp NEB RQID [facility] Last Admin: 06/02/18 07:44 Dose: 1 amp Amino Acids (Prosource No Carb Liquid Pkt) 30 ml PO BID@0800,1730 [facility] Last Admin: 06/02/18 08:38 Dose: 30 ml Apixaban (Eliquis -) 5 mg PO DAILY [facility] Last Admin: 06/01/18 09:57 Dose: 5 mg Ascorbic Acid (Vitamin C -) 500 mg PO DAILY [facility] Last Admin: 06/01/18 09:56 Dose: 500 mg Cholecalciferol (Vitamin D3 -) 1,000 unit PO DAILY [facility] Last Admin: 06/01/18 09:56 Dose: 1,000 unit Docusate Sodium (Colace -) 100 mg PO BID PRN PRN Reason: CONSTIPATION Duloxetine HCl (Cymbalta -) 30 mg PO DAILY [facility] Last Admin: 06/01/18 09:55 Dose: 30 mg Finasteride (Proscar -) 5 mg PO DAILY [facility] Last Admin: 06/01/18 09:57 Dose: 5 mg Folic Acid (Folic Acid -) 1 mg PO DAILY [facility] Last Admin: 06/01/18 09:56 Dose: 1 mg Sodium Chloride (Normal Saline -) 1,000 mls @ 75 mls/hr IV ASDIR [facility] Last Admin: 06/01/18 15:03 Dose: Not Given Ertapenem 0.5 gm/ Sodium (Chloride) 50 mls @ 100 mls/hr IVPB DAILY [facility]; Protocol Last Admin: 06/01/18 09:57 Dose: 100 mls/hr Insulin Aspart (Novolog Vial Sliding Scale -) 1 vial SQ ACHS [facility]; Protocol Last Admin: 06/02/18 06:56 Dose: Not Given Ipratropium [place] (Atrovent 0.02% Nebulizer -) 1 amp NEB RQID [facility] Last Admin: 06/02/18 07:43 Dose: 1 amp Lidocaine (Lidoderm Patch -) 2 patch TP DAILY [facility] Last Admin: 06/01/18 15:02 Dose: 2 patch Miscellaneous (Lidoderm Patch Removal) 1 each MC DAILY@2200 [facility] Last Admin: 06/01/18 21:02 Dose: 1 each Multivitamins/Minerals/Vitamin C (Tab-A-Vit -) 1 tab PO DAILY [facility] Last Admin: 06/01/18 09:55 Dose: 1 tab [id number] Ethyl Esters (Lovaza -) 1 gm PO DAILY [facility] Last Admin: 06/01/18 09:57 Dose: 1 gm Oxycodone HCl (Roxicodone -) 5 mg PO Q6H PRN PRN Reason: PAIN LEVEL 4 - 6 Last Admin: 06/02/18 06:57 Dose: 5 mg Pantoprazole Sodium (Protonix -) 20 mg PO DAILY [facility] Last Admin: 06/01/18 09:56 Dose: 20 mg Polyethylene Glycol (Miralax (For Daily Use) -) 17 gm PO DAILY [facility] Last Admin: 06/01/18 09:57 Dose: 17 gm Senna (Senna -) 1 tab PO HS [facility] Last Admin: 06/01/18 21:01 Dose: 1 tab Tamsulosin HCl (Flomax -) 0.8 mg PO DAILY@0830 [facility] Last Admin: 06/02/18 08:38 Dose: 0.8 mg - Objective Vital Signs: Vital Signs Temperature 97.9 F 06/02/18 06:00 Pulse Rate 97 H 06/02/18 06:00 Respiratory Rate 20 06/02/18 06:00 Blood Pressure 109/63 06/02/18 06:00 O2 Sat by Pulse Oximetry (%) 100 06/01/18 09:00 Cardiovascular: Yes: S1, S2 Respiratory: Yes: Regular, CTA Bilaterally Gastrointestinal: Yes: Normal Bowel Sounds, Soft Labs: CBC, BMP 06/02/18 06:40 06/02/18 06:40 INR, PTT INR 1.82 (0.83-1.09) H 05/29/18 17:00 Problem List - Problems (1) UTI (urinary tract infection) Assessment/Plan: - f/u ucx Microbiology 05/29/18 20:01 Urine - Urine - Catheterized Urine Culture - Preliminary Escherichia Coli Esbl [employer] D Strep Or Entero Coccus 05/29/18 20:22 Blood - Peripheral Venous Blood Culture - Preliminary NO GROWTH OBTAINED AFTER 48 HOURS, INCUBATION TO CONTINUE FOR 3 DAYS. 05/29/18 21:15 Blood - Peripheral Venous Blood Culture - Preliminary NO GROWTH OBTAINED AFTER 48 HOURS, INCUBATION TO CONTINUE FOR 3 DAYS. -continue etrapenem -villareal - tylenol PRN fever Code(s): N39.0 - URINARY TRACT INFECTION, SITE NOT SPECIFIED Qualifiers: Urinary tract infection type: catheter-associated UTI Indwelling urinary catheter type: indwelling urethral catheter Encounter type: initial encounter Qualified Code(s): T83.511A - Infection and inflammatory reaction due to indwelling urethral catheter, initial encounter; N39.0 - Urinary tract infection , site not specified (2) SHAKIR (acute kidney injury) Assessment/Plan: - gently rehydration in light of CHF history -flomax 0.4mg daily -finasteride 5mg daily Code(s): N17.9 - ACUTE KIDNEY FAILURE, UNSPECIFIED (3) Atrial fibrillation Assessment/Plan: -c/w eliquis -f/u digoxin level -hold dig in the setting og SHAKIR Code(s): I48.91 - UNSPECIFIED ATRIAL FIBRILLATION Qualifiers: Atrial fibrillation type: chronic Qualified Code(s): I48.2 - Chronic atrial fibrillation (4) CHF (congestive heart failure) Assessment/Plan: -hold torsemide due to dehydration and SHAKIR Code(s): I50.9 - HEART FAILURE, UNSPECIFIED (5) COPD (chronic obstructive pulmonary disease) Assessment/Plan: -Nebs q8hrs -chest PT -OOB to chair as tolerated Code(s): J44.9 - CHRONIC OBSTRUCTIVE PULMONARY DISEASE, UNSPECIFIED Qualifiers: COPD type: unspecified COPD Qualified Code(s): J44.9 - Chronic obstructive pulmonary disease, unspecified
--- NOTE | 2018-06-02 10:09 | DS ---
Physical Examination Vital Signs: Vital Signs Temperature 97.9 F 06/02/18 06:00 Pulse Rate 97 H 06/02/18 06:00 Respiratory Rate 20 06/02/18 06:00 Blood Pressure 109/63 06/02/18 06:00 O2 Sat by Pulse Oximetry (%) 100 06/01/18 09:00 Labs: CBC, BMP 06/02/18 06:40 06/02/18 06:40 Discharge Summary Reason For Visit: ACUTE KIDNEY INJURY/UTI/ATRIAL FIBRILATION Current Active Problems SHAKIR (acute kidney injury) (Acute) Atrial fibrillation (Acute) UTI (urinary tract infection) (Acute) Condition: Stable - Instructions Referrals: Julianna Mckeon MD [Primary Care Provider] - - Home Medications Comprehensive Discharge Medication List: Ambulatory Orders Acetaminophen [Tylenol] 325 mg PO Q6H PRN 04/03/18 Amino Acids/Protein Hydrolys [Pro-Stat Liquid] 30 ml PO BID 04/03/18 Apixaban [Eliquis] 5 mg PO DAILY 04/03/18 Ascorbic Acid [Vitamin C] 500 mg PO DAILY 04/03/18 Budesonide/Formeterol Fumarate [SYMBICORT 160/4.5mcg -] 1 inh PO BID 04/03/18 Cephalexin [Keflex] 250 mg PO Q6H 04/03/18 Cholecalciferol (Vitamin D3) [Vitamin D3] 1,000 unit PO DAILY 04/03/18 Cran/Vitc/Mannose/Fos/Bromeln [Uti-Stat Liquid] 30 ml PO TID 04/03/18 Cyanocobalamin [Vitamin B12 -] 1,000 mcg PO DAILY 04/03/18 Digoxin 125 mcg PO ASDIR 04/03/18 Digoxin 125 mcg PO ASDIR 04/03/18 Finasteride 5 mg PO DAILY 04/03/18 Folic Acid 1 mg PO DAILY 04/03/18 Gabapentin 200 mg PO TID 04/03/18 Methylphenidate HCl [Ritalin LA] 5 mg PO DAILY 04/03/18 [place]-3 Fatty Acids [[place]-3] 1,000 mg PO DAILY 04/03/18 Omeprazole 20 mg PO DAILY 04/03/18 Polyethylene Glycol 3350 [Miralax 119 gm Btl -] 17 gm PO DAILY 04/03/18 Potassium Citrate [Potassium Citrate ER] 10 meq PO DAILY 04/03/18 Saliva Substitute Combo No.9 [Biotene] 30 ml MM TID 04/03/18 Tamsulosin HCl [Flomax -] 0.8 mg PO DAILY 04/03/18 Zinc Sulfate 220 mg PO DAILY 04/03/18 Amino Acids/Protein Hydrolys [Prosource No Carb Liquid Pkt] 30 ml PO BID@0800, 1730 packet 04/08/18 Insulin Sliding Scale [Novolog Vial Sliding Scale -] 1 vial SQ ACHS units 04/08 Torsemide [Demadex -] 20 mg PO DAILY tablet 04/08/18 oxyCODONE HCL [Roxicodone -] 10 mg PO Q6H PRN tablet MDD 4 04/08/18 Sennosides [Senna -] 1 tab PO HS tablet 04/10/18 Sulfamethoxazole/Trimethoprim [Bactrim DS -] 1 each PO BID #10 tablet 04/10/18
[2018-06-02] MEDS ORDERED: PT OWN MED DRAWER 7, Y5N ONE (10:26)
[2018-06-02] MEDS: MULTIVITAMINS (DAILY MVI) TABLET (FP) PO SCH (10:28)
[2018-06-02] MEDS: LIDOCAINE 5% TOPICAL PATCH TP SCH (10:28)
[2018-06-02] MEDS: DULoxetine HCL 30 MG CAPSULE.DR (FP) PO SCH (10:28)
[2018-06-02] MEDS: ASCORBIC ACID 500 MG TABLET (FP) PO SCH (10:28)
[2018-06-02] MEDS: CHOLECALCIFEROL (VITAMIN D3) 1,000 UNIT TABLET (FP) PO SCH (10:28)
[2018-06-02] MEDS: APIXABAN 5 MG TABLET PO SCH (10:28)
[2018-06-02] MEDS: FOLIC ACID 1 MG TABLET (FP) PO SCH (10:28)
[2018-06-02] MEDS: PANTOPRAZOLE 20 MG TABLET (FP) PO SCH (10:28)
[2018-06-02] MEDS: FINASTERIDE 5 MG TABLET (FP) PO SCH (10:29)
[2018-06-02] MEDS: POLYETHYLENE GLYCOL 3350 119 GM BTL PO SCH (10:29)
[2018-06-02] MEDS: OMEGA-3 ACID ETHYL ESTERS (FATTY-ACIDS) 1 GM CAPSULE (FP) PO SCH (10:29)
[2018-06-02] MEDS: ERTAPENEM SODIUM 0.5 GM in SODIUM CHLORIDE 50 ML IVPB SCH (10:30)
[2018-06-02] MEDS: ACETAMINOPHEN 325 MG TABLET (FP) PO PRN ×2 (11:19→21:54)
[2018-06-02] MEDS ORDERED: PICC LINE 8 ML FLUSH PROTOCOL IVPUSH PRN (11:34)
--- NOTE | 2018-06-02 12:24 | CONS ---
PHYSICAL MEDICINE AND REHABILITATION CONSULTATION DATE OF CONSULTATION: 06/02/2018 REFERRING PHYSICIAN: Bo Desai MD HISTORY OF PRESENT ILLNESS: The patient is a 73-year-old man with an extensive past medical history, including atrial fibrillation on Eliquis, indwelling Mathews catheter due to benign prostatic hypertrophy, type 2 diabetes, COPD, shingles, as well as bilateral total knee replacements, and osteoarthritis of the left shoulder, who was admitted with elevated BUN and creatinine on May 29, 2018, from [facility]. Patient was found to have elevated BUN and creatinine, BUN 54, creatinine 2.1, and presented to the emergency room on May 29 where his BUN was 56, creatinine 2.6, normal sodium 141, potassium 4.8, chloride 101, CO2 of 31, CBC showed WBCs 9.7, hemoglobin 10.5, platelet count 243, magnesium level fell from 1.5 to 1.4, INR 1.82, digoxin level was found to be elevated at 285, albumin low at 1.7. Repeat blood work done today: WBC is 6.7, hemoglobin 8.6, platelet count 3.4, BUN still elevated at 51, creatinine 2.2, potassium low at 3.3. albumin low at 1.4. CT of the head on admission showed moderate atrophy, microvascular ischemic changes, but no acute intracranial pathology. Ultrasound of the bladder showed bilateral hydronephrosis. Patient is seen in rehabilitation evaluation. Per the patient, he has not ambulated in a year, and although he denies living at the [facility] facility, has not been home in well over a year. Patient also diagnosed with urinary tract infection. REVIEW OF PAST MEDICAL AND SURGICAL HISTORY: As above; gastroesophageal reflux disease; shingles; obstructive sleep apnea syndrome; UTI; type 2 diabetes; bilateral total knee replacements; former tobacco user; nonambulatory for a year. REVIEW OF SYSTEMS: No dizziness, lightheadedness. No headache. No nausea, vomiting, difficulty swallowing, difficulty chewing. No chest pain, shortness of breath. No fever or chills. He has complaints of pain in the left shoulder with movement. No complaints of right shoulder or upper extremity pain, otherwise. Complains of discomfort in the distal right more than left lower extremity, particularly the posterior calf into the foot, but no numbness, tingling. He does report some back problems, but uncertain etiology of right lower extremity pain. Again, he has not been ambulatory in over a year. PHYSICAL EXAMINATION: General: On examination, the patient is seen lying in bed in no acute distress. He has oxygen and an indwelling Mathews catheter. HEENT: Normocephalic and atraumatic. Extraocular muscles appear intact. Neck: Supple. Extremities: Without any edema, but he is diffusely tender in the distal right lower extremity, but there is no pitting edema. No dysvascular changes. Skin without any rash or breakdown. Neuromuscular: He is awake, alert, cooperative. Cranial nerves 2 through 12 grossly intact. He has atrophy in the hands. Pain with limited range in the left shoulder. Better range and pain-free range of motion in the right shoulder. Good elbow flexion, extension, pronation, supination. Weakness in the intrinsics in both hands, normal sensation to light touch. In the lower extremities, normal sensation to light touch, good dorsiflexion and plantarflexion, but proximal weakness bilaterally 1/5 on the right and 2/5 on the left. Knee extensors are 2/5 on the right and 3/5 on the left. Downgoing toes. Good joint stability. No gross arthritic change. OVERALL IMPRESSION: 1. Deficits in mobility, activities of daily living which is longstanding. 2. Right lower extremity pain of uncertain etiology. Unsure where shingles affected versus radiculopathy from underlying back condition. 3. Diffuse osteoarthritis, including the left shoulder, bilateral knees status post total knee replacements, and probable spinal degenerative joint disease. 4. Acute and/or chronic kidney disease. 5. Hypoalbuminemia. 6. Hypokalemia. 7. Anemia. 8. Atrial fibrillation. On Eliquis. 9. Type 2 diabetes. 10. History of shingles. 11. Obstructive sleep apnea syndrome and chronic obstructive pulmonary disease. 12. Gastroesophageal reflux disease. PLAN/SUGGESTIONS: 1. Physical therapy at the bedside mainly for range of motion, stretching, strengthening of the proximal lower extremities, active-assist range of the left shoulder. 2. Consider out of bed to chair when appropriate. 3. Patient is on Eliquis. No further DVT prophylaxis needed. 4. Skin precautions. Monitor heel and sacral pressure for discoloration or breakdown. 5. Bowel regimen. Patient is on MiraLAX and senna. 6. Pain management. 7. Consider workup if not already done. 8. Return to long-term care at [facility] when medically stable. Thank you for this referral. CATY RIVERO M.D. GRACIELA/[id number]
[2018-06-02] MEDS: SODIUM CHLORIDE 1,000 ML IV SCH (12:27)
[2018-06-02] MEDS ORDERED: ONDANSETRON 4 MG/2 ML VIAL IVPUSH PRN (13:14)
--- NOTE | 2018-06-02 13:29 | PN ---
Progress Note, Physician History of Present Illness: Awake, more alert C/O buttock pain from being in bed No fever/ chills WBC WNL BC (-) Urine c/s ESBL - Current Medication List Current Medications: Active Medications Acetaminophen (Tylenol -) 650 mg PO Q4H PRN PRN Reason: temp > 101 Last Admin: 05/31/18 19:04 Dose: 650 mg Acetaminophen (Tylenol -) 325 mg PO Q6H PRN PRN Reason: PAIN Last Admin: 06/02/18 11:19 Dose: 325 mg Albuterol Sulfate (Ventolin 0.083% Nebulizer Soln -) 1 amp NEB RQID [facility] Last Admin: 06/02/18 07:44 Dose: 1 amp Amino Acids (Prosource No Carb Liquid Pkt) 30 ml PO BID@0800,1730 [facility] Last Admin: 06/02/18 08:38 Dose: 30 ml Apixaban (Eliquis -) 5 mg PO DAILY [facility] Last Admin: 06/02/18 10:28 Dose: 5 mg Ascorbic Acid (Vitamin C -) 500 mg PO DAILY [facility] Last Admin: 06/02/18 10:28 Dose: 500 mg Cholecalciferol (Vitamin D3 -) 1,000 unit PO DAILY [facility] Last Admin: 06/02/18 10:28 Dose: 1,000 unit Docusate Sodium (Colace -) 100 mg PO BID PRN PRN Reason: CONSTIPATION Duloxetine HCl (Cymbalta -) 30 mg PO DAILY [facility] Last Admin: 06/02/18 10:28 Dose: 30 mg Finasteride (Proscar -) 5 mg PO DAILY [facility] Last Admin: 06/02/18 10:29 Dose: 5 mg Folic Acid (Folic Acid -) 1 mg PO DAILY [facility] Last Admin: 06/02/18 10:28 Dose: 1 mg IV Flush (Picc Line Flush) 8 ml IVPUSH PRN PRN PRN Reason: Protocol Sodium Chloride (Normal Saline -) 1,000 mls @ 75 mls/hr IV ASDIR [facility] Last Admin: 06/02/18 12:27 Dose: Not Given Ertapenem 0.5 gm/ Sodium (Chloride) 50 mls @ 100 mls/hr IVPB DAILY [facility]; Protocol Last Admin: 06/02/18 10:30 Dose: 100 mls/hr Insulin Aspart (Novolog Vial Sliding Scale -) 1 vial SQ ACHS [facility]; Protocol Last Admin: 06/02/18 12:26 Dose: Not Given Ipratropium [place] (Atrovent 0.02% Nebulizer -) 1 amp NEB RQID [facility] Last Admin: 06/02/18 07:43 Dose: 1 amp Lidocaine (Lidoderm Patch -) 2 patch TP DAILY [facility] Last Admin: 06/02/18 10:28 Dose: 2 patch Miscellaneous (Lidoderm Patch Removal) 1 each MC DAILY@2200 [facility] Last Admin: 06/01/18 21:02 Dose: 1 each Multivitamins/Minerals/Vitamin C (Tab-A-Vit -) 1 tab PO DAILY [facility] Last Admin: 06/02/18 10:28 Dose: 1 tab Doilb-4-Xdod Ethyl Esters (Lovaza -) 1 gm PO DAILY [facility] Last Admin: 06/02/18 10:29 Dose: 1 gm Ondansetron HCl (Zofran Injection) 4 mg IVPUSH Q8H PRN PRN Reason: NAUSEA AND/OR VOMITING Oxycodone HCl (Roxicodone -) 5 mg PO Q6H PRN PRN Reason: PAIN LEVEL 4 - 6 Last Admin: 06/02/18 11:19 Dose: 5 mg Pantoprazole Sodium (Protonix -) 20 mg PO DAILY [facility] Last Admin: 06/02/18 10:28 Dose: 20 mg Polyethylene Glycol (Miralax (For Daily Use) -) 17 gm PO DAILY [facility] Last Admin: 06/02/18 10:29 Dose: Not Given Senna (Senna -) 1 tab PO HS [facility] Last Admin: 06/01/18 21:01 Dose: 1 tab Tamsulosin HCl (Flomax -) 0.8 mg PO DAILY@0830 [facility] Last Admin: 06/02/18 08:38 Dose: 0.8 mg - Objective Vital Signs: Vital Signs Temperature 97.9 F 06/02/18 06:00 Pulse Rate 97 H 06/02/18 06:00 Respiratory Rate 20 06/02/18 06:00 Blood Pressure 109/63 06/02/18 06:00 O2 Sat by Pulse Oximetry (%) 100 06/01/18 09:00 Constitutional: Yes: No Distress Eyes: Yes: Conjunctiva Clear Cardiovascular: Yes: Regular Rate and Rhythm, S1, S2 Respiratory: Yes: CTA Bilaterally Gastrointestinal: Yes: Normal Bowel Sounds, Soft. No: Tenderness Labs: CBC, BMP 06/02/18 06:40 06/02/18 06:40 INR, PTT INR 1.82 (0.83-1.09) H 05/29/18 17:00 Assessment/Plan ESBL UTI Toxic metabolic encephalopathy- improved Azotemia Advised PICC for outpatient antibiotic tx Ertapenem 1gm IVPB q24h x 7d
--- NOTE | 2018-06-02 15:22 | ECHO ---
Name: PASTOR LEA Exam:Adult Echocardiogram Study Date: 06/02/2018 02:41 PM Age: 73 yrs Reason For Study: CHF Height: 72 in Weight: 189 lb BSA: 2.1 m2 MMode/2D Measurements & Calculations IVSd: 0.62 cm Ao root diam: 3.8 cm LVIDd: 5.1 cm LA dimension: 3.2 cm LVIDs: 3.3 cm LVPWd: 0.86 cm IVSs: 0.94 cm LVPWs: 1.1 cm EDV(Teich): 123.3 ml ESV(Teich): 43.1 ml Doppler Measurements & Calculations Ao V2 max: 111.8 cm/sec Ao max P.0 mmHg Ao V2 mean: 75.9 cm/sec Ao mean P.8 mmHg Ao V2 VTI: 14.7 cm Procedure The study was technically difficult with many images being suboptimal in quality. Left Ventricle Due to the poor quality of the echocardiogram, an assessment of left ventricular ejection fraction ca nnot be made. Regional wall motion abnormalities cannot be excluded due to limited visualization. Right Ventricle The right ventricle is grossly normal size. The right ventricular systolic function is grossly normal . Pericardium/Pleura Trivial pericardial effusion not hemodynamically significant. Interpretation Summary The study was technically difficult with many images being suboptimal in quality. Regional wall motion abnormalities cannot be excluded due to limited visualization. Due to the poor quality of the echocardiogram, an assessment of left ventricular ejection fraction ca nnot be made. The right ventricle is grossly normal size. The right ventricular systolic function is grossly normal. Trivial pericardial effusion not hemodynamically significant MD Villagomez *[place]hell 06/02/2018 03:21 PM
[2018-06-02] MEDS: KCL 10 MEQ IVPB 10 MEQ/100 ML INFUS.BAG IVPB SCH ×2 (15:48→16:59)
[2018-06-02] MEDS ORDERED: POTASSIUM CHLORIDE TABS 20 MEQ TABLET.ER (FP) PO ONE (16:43)
--- NOTE | 2018-06-02 16:43 | PN ---
Progress Note, Physician History of Present Illness: Pt seen and examined at bedside. He denies shortness of breath. - Current Medication List Current Medications: Active Medications Acetaminophen (Tylenol -) 650 mg PO Q4H PRN PRN Reason: temp > 101 Last Admin: 05/31/18 19:04 Dose: 650 mg Acetaminophen (Tylenol -) 325 mg PO Q6H PRN PRN Reason: PAIN Last Admin: 06/02/18 11:19 Dose: 325 mg Albuterol Sulfate (Ventolin 0.083% Nebulizer Soln -) 1 amp NEB RQID [facility] Last Admin: 06/02/18 16:24 Dose: 1 amp Amino Acids (Prosource No Carb Liquid Pkt) 30 ml PO BID@0800,1730 [facility] Last Admin: 06/02/18 08:38 Dose: 30 ml Apixaban (Eliquis -) 5 mg PO DAILY [facility] Last Admin: 06/02/18 10:28 Dose: 5 mg Ascorbic Acid (Vitamin C -) 500 mg PO DAILY [facility] Last Admin: 06/02/18 10:28 Dose: 500 mg Cholecalciferol (Vitamin D3 -) 1,000 unit PO DAILY [facility] Last Admin: 06/02/18 10:28 Dose: 1,000 unit Docusate Sodium (Colace -) 100 mg PO BID PRN PRN Reason: CONSTIPATION Duloxetine HCl (Cymbalta -) 30 mg PO DAILY [facility] Last Admin: 06/02/18 10:28 Dose: 30 mg Finasteride (Proscar -) 5 mg PO DAILY [facility] Last Admin: 06/02/18 10:29 Dose: 5 mg Folic Acid (Folic Acid -) 1 mg PO DAILY [facility] Last Admin: 06/02/18 10:28 Dose: 1 mg IV Flush (Picc Line Flush) 8 ml IVPUSH PRN PRN PRN Reason: Protocol Ertapenem 0.5 gm/ Sodium (Chloride) 50 mls @ 100 mls/hr IVPB DAILY [facility]; Protocol Last Admin: 06/02/18 10:30 Dose: 100 mls/hr Insulin Aspart (Novolog Vial Sliding Scale -) 1 vial SQ ACHS [facility]; Protocol Last Admin: 06/02/18 12:26 Dose: Not Given Ipratropium [place] (Atrovent 0.02% Nebulizer -) 1 amp NEB RQID [facility] Last Admin: 06/02/18 16:24 Dose: 1 amp Lidocaine (Lidoderm Patch -) 2 patch TP DAILY [facility] Last Admin: 06/02/18 10:28 Dose: 2 patch Miscellaneous (Lidoderm Patch Removal) 1 each MC DAILY@2200 [facility] Last Admin: 06/01/18 21:02 Dose: 1 each Multivitamins/Minerals/Vitamin C (Tab-A-Vit -) 1 tab PO DAILY [facility] Last Admin: 06/02/18 10:28 Dose: 1 tab Chsaa-3-Clwc Ethyl Esters (Lovaza -) 1 gm PO DAILY [facility] Last Admin: 06/02/18 10:29 Dose: 1 gm Ondansetron HCl (Zofran Injection) 4 mg IVPUSH Q8H PRN PRN Reason: NAUSEA AND/OR VOMITING Last Admin: 06/02/18 13:30 Dose: 4 mg Oxycodone HCl (Roxicodone -) 5 mg PO Q6H PRN PRN Reason: PAIN LEVEL 4 - 6 Last Admin: 06/02/18 11:19 Dose: 5 mg Pantoprazole Sodium (Protonix -) 20 mg PO DAILY [facility] Last Admin: 06/02/18 10:28 Dose: 20 mg Polyethylene Glycol (Miralax (For Daily Use) -) 17 gm PO DAILY [facility] Last Admin: 06/02/18 10:29 Dose: Not Given Senna (Senna -) 1 tab PO HS [facility] Last Admin: 06/01/18 21:01 Dose: 1 tab Tamsulosin HCl (Flomax -) 0.8 mg PO DAILY@0830 [facility] Last Admin: 06/02/18 08:38 Dose: 0.8 mg - Objective Vital Signs: Vital Signs Temperature 97.9 F 06/02/18 06:00 Pulse Rate 91 H 06/02/18 14:28 Respiratory Rate 16 06/02/18 14:28 Blood Pressure 85/55 L 06/02/18 14:28 O2 Sat by Pulse Oximetry (%) 100 06/02/18 14:28 Constitutional: Yes: Calm Eyes: Yes: Conjunctiva Clear HENT: Yes: Atraumatic Cardiovascular: Yes: S1, S2 Respiratory: Yes: CTA Bilaterally Gastrointestinal: Yes: Soft Genitourinary: Yes: WNL Musculoskeletal: Yes: WNL Edema: No Neurological: Yes: Oriented Psychiatric: Yes: Oriented Labs: CBC, BMP 06/02/18 06:40 06/02/18 06:40 INR, PTT INR 1.82 (0.83-1.09) H 05/29/18 17:00 Problem List - Problems (1) SHAKIR (acute kidney injury) Code(s): N17.9 - ACUTE KIDNEY FAILURE, UNSPECIFIED (2) Atrial fibrillation Code(s): I48.91 - UNSPECIFIED ATRIAL FIBRILLATION Qualifiers: Atrial fibrillation type: chronic Qualified Code(s): I48.2 - Chronic atrial fibrillation (3) UTI (urinary tract infection) Code(s): N39.0 - URINARY TRACT INFECTION, SITE NOT SPECIFIED Qualifiers: Urinary tract infection type: catheter-associated UTI Indwelling urinary catheter type: indwelling urethral catheter Encounter type: initial encounter Qualified Code(s): T83.511A - Infection and inflammatory reaction due to indwelling urethral catheter, initial encounter; N39.0 - Urinary tract infection , site not specified Assessment/Plan Current Medications Generic Name Dose Route Start Last Admin Trade Name Freq PRN Reason Stop Dose Admin Acetaminophen 650 mg 05/29/18 20:09 05/31/18 19:04 Tylenol - PO 650 mg Q4H PRN Administration temp > 101 Acetaminophen 325 mg 05/29/18 21:21 06/02/18 11:19 Tylenol - PO 325 mg Q6H PRN Administration PAIN Albuterol Sulfate 1 amp 05/30/18 08:00 06/02/18 16:24 Ventolin 0.083% Nebulizer Soln - NEB 1 amp RQID [facility] Administration Amino Acids 30 ml 05/30/18 08:00 06/02/18 08:38 Prosource No Carb Liquid Pkt PO 30 ml BID@0800,1730 [facility] Administration Apixaban 5 mg 05/30/18 10:00 06/02/18 10:28 Eliquis - PO 5 mg DAILY [facility] Administration Ascorbic Acid 500 mg 05/30/18 10:00 06/02/18 10:28 Vitamin C - PO 500 mg DAILY [facility] Administration Cholecalciferol 1,000 unit 05/30/18 10:00 06/02/18 10:28 Vitamin D3 - PO 1,000 unit DAILY [facility] Administration Docusate Sodium 100 mg 05/29/18 20:09 Colace - PO BID PRN CONSTIPATION Duloxetine HCl 30 mg 05/31/18 15:45 06/02/18 10:28 Cymbalta - PO 30 mg DAILY [facility] Administration Finasteride 5 mg 05/30/18 10:00 06/02/18 10:29 Proscar - PO 5 mg DAILY [facility] Administration Folic Acid 1 mg 05/30/18 10:00 06/02/18 10:28 Folic Acid - PO 1 mg DAILY [facility] Administration IV Flush 8 ml 06/02/18 11:34 Picc Line Flush IVPUSH PRN PRN Protocol Ertapenem 0.5 gm/ Sodium 50 mls @ 100 mls/hr 05/30/18 17:00 06/02/18 10:30 Chloride IVPB 100 mls/hr DAILY [facility] Administration Protocol Insulin Aspart 1 vial 05/30/18 07:00 06/02/18 12:26 Novolog Vial Sliding Scale - SQ Not Given ACHS [facility] Protocol Ipratropium [place] 1 amp 05/30/18 08:00 06/02/18 16:24 Atrovent 0.02% Nebulizer - NEB 1 amp RQID [facility] Administration Lidocaine 2 patch 06/01/18 14:00 06/02/18 10:28 Lidoderm Patch - TP 2 patch DAILY [facility] Administration Miscellaneous 1 each 06/01/18 22:00 06/01/18 21:02 Lidoderm Patch Removal MC 1 each DAILY@2200 [facility] Administration Multivitamins/Minerals/Vitamin C 1 tab 06/01/18 10:00 06/02/18 10:28 Tab-A-Vit - PO 1 tab DAILY [facility] Administration Hgupo-3-Vjzl Ethyl Esters 1 gm 05/30/18 10:00 06/02/18 10:29 Lovaza - PO 1 gm DAILY [facility] Administration Ondansetron HCl 4 mg 06/02/18 13:14 06/02/18 13:30 Zofran Injection IVPUSH 4 mg Q8H PRN Administration NAUSEA AND/OR VOMITING Oxycodone HCl 5 mg 06/01/18 08:52 06/02/18 11:19 Roxicodone - PO 5 mg Q6H PRN Administration PAIN LEVEL 4 - 6 Pantoprazole Sodium 20 mg 05/30/18 10:00 06/02/18 10:28 Protonix - PO 20 mg DAILY [facility] Administration Polyethylene Glycol 17 gm 05/30/18 10:00 06/02/18 10:29 Miralax (For Daily Use) - PO Not Given DAILY [facility] Senna 1 tab 05/29/18 22:00 06/01/18 21:01 Senna - PO 1 tab HS [facility] Administration Tamsulosin HCl 0.8 mg 05/30/18 08:30 06/02/18 08:38 Flomax - PO 0.8 mg DAILY@0830 [facility] Administration Laboratory Tests 05/30/18 19:30 Total Protein (PEP) Pending Albumin (PEP) Pending Globulin Pending Albumin/Globulin Ratio Pending Beta Globulins Pending KARYN M-Jorge Pending Microbiology 05/29/18 20:01 Urine - Urine - Catheterized Urine Culture - Final Escherichia Coli Esbl Well Flow Operator Vr Ec Faecalis 05/29/18 21:15 Blood - Peripheral Venous Blood Culture - Preliminary NO GROWTH OBTAINED AFTER 72 HOURS, INCUBATION TO CONTINUE FOR 2 DAYS. 05/29/18 20:22 Blood - Peripheral Venous Blood Culture - Preliminary NO GROWTH OBTAINED AFTER 72 HOURS, INCUBATION TO CONTINUE FOR 2 DAYS. Impression 1. proteinuria 2. CHF 3. obstructive sleep apnea 4. obesity 5. DM 6. HTN 7. hyperlipidemia 8. SHAKIR 9. unexplained weight loss 10. UTI 11. hypomagnesemia Plan - renal function improving - repeat labs in am - replace potassium - follow spep - weight loss workup - will follow Dr Aguilar
[2018-06-02] MEDS: LIDOCAINE PATCH REMOVAL MC SCH (21:45)
[2018-06-02] MEDS: SENNOSIDES 8.6MG TABLET (FP) PO SCH ×2 (21:48→21:53)
[2018-06-03] MEDS: INSULIN SLIDING SCALE (NOVOLOG) 1 VIAL SQ SCH ×4 (06:33→21:21)
[2018-06-03] MEDS: ALBUTEROL SO4 0.083% IH SOL 2.5 MG/3 ML VIAL.NEB. NEB SCH ×4 (08:42→20:50)
[2018-06-03] MEDS: IPRATROPIUM BR 0.02% 0.5 MG/2.5 ML VIAL.NEB. NEB SCH ×4 (08:42→20:50)
[2018-06-03 09:05] LABS: ALBUMIN 1.4 g/dl (3.4-5.0); ALK PHOS 77 U/L (45-117); ANION GAP 8 MMOL/L (8-16); BILIRUBIN,TOTAL 0.5 mg/dL (0.2-1); BLOOD UREA NITROGEN 51 mg/dL (7-18); CALCIUM 7.7 mg/dL (8.5-10.1); CHLORIDE 113 mmol/L (98-107); CO2 24 mmol/L (21-32); CREATININE 2.2 mg/dL (0.55-1.3); GLUCOSE,RANDOM 71 mg/dL (74-106); POTASSIUM 3.9 mmol/L (3.5-5.1); SGOT/AST 15 U/L (15-37); SGPT/ALT 8 U/L (13-61); SODIUM 145 mmol/L (136-145); TOT PROT 5.5 g/dl (6.4-8.2)
[2018-06-03] MEDS ORDERED: PT OWN MED DRAWER 7, Y5N ONE (09:17)
[2018-06-03] MEDS: LIDOCAINE 5% TOPICAL PATCH TP SCH ×2 (09:26→19:26)
[2018-06-03] MEDS: TAMSULOSIN HCL 0.4 MG CAP PO SCH (09:26)
[2018-06-03] MEDS: DULoxetine HCL 30 MG CAPSULE.DR (FP) PO SCH (09:26)
[2018-06-03] MEDS: OMEGA-3 ACID ETHYL ESTERS (FATTY-ACIDS) 1 GM CAPSULE (FP) PO SCH (09:26)
[2018-06-03] MEDS: APIXABAN 5 MG TABLET PO SCH (09:26)
[2018-06-03] MEDS: FOLIC ACID 1 MG TABLET (FP) PO SCH (09:26)
[2018-06-03] MEDS: oxyCODONE HCL 5 MG TABLET PO PRN ×2 (09:26→21:27)
[2018-06-03] MEDS: PANTOPRAZOLE 20 MG TABLET (FP) PO SCH (09:27)
[2018-06-03] MEDS: AMINO ACIDS/PROTEIN HYDROLYS 30 ML LIQUID.PKT PO SCH ×2 (09:28→18:36)
[2018-06-03] MEDS: ASCORBIC ACID 500 MG TABLET (FP) PO SCH (09:28)
[2018-06-03] MEDS: FINASTERIDE 5 MG TABLET (FP) PO SCH (09:28)
[2018-06-03] MEDS: CHOLECALCIFEROL (VITAMIN D3) 1,000 UNIT TABLET (FP) PO SCH (09:28)
[2018-06-03] MEDS: MULTIVITAMINS (DAILY MVI) TABLET (FP) PO SCH (09:28)
[2018-06-03] MEDS: ACETAMINOPHEN 325 MG TABLET (FP) PO PRN ×2 (09:29→21:28)
[2018-06-03] MEDS: POLYETHYLENE GLYCOL 3350 119 GM BTL PO SCH (12:21)
[2018-06-03] MEDS: ERTAPENEM SODIUM 0.5 GM in SODIUM CHLORIDE 50 ML IVPB SCH (12:22)
--- NOTE | 2018-06-03 12:39 | DS ---
Physical Examination Vital Signs: Vital Signs Temperature 98.4 F 06/03/18 06:00 Pulse Rate 89 06/03/18 06:00 Respiratory Rate 20 06/03/18 06:00 Blood Pressure 104/57 L 06/03/18 06:00 O2 Sat by Pulse Oximetry (%) 100 06/02/18 21:00 Cardiovascular: Yes: S1, S2 Respiratory: Yes: Regular, CTA Bilaterally Gastrointestinal: Yes: Normal Bowel Sounds, Soft. No: Tenderness Labs: CBC, BMP 06/02/18 06:40 06/03/18 06:15 Discharge Summary Reason For Visit: ACUTE KIDNEY INJURY/UTI/ATRIAL FIBRILATION Current Active Problems SHAKIR (acute kidney injury) (Acute) Atrial fibrillation (Acute) UTI (urinary tract infection) (Acute) Hospital Course: - Problems (1) UTI (urinary tract infection) Assessment/Plan: - f/u ucx Microbiology 05/29/18 20:01 Urine - Urine - Catheterized Urine Culture - Preliminary Escherichia Coli Esbl Supervisor Color Making Group D Strep Or Entero Coccus 05/29/18 20:22 Blood - Peripheral Venous Blood Culture - Preliminary NO GROWTH OBTAINED AFTER 48 HOURS, INCUBATION TO CONTINUE FOR 3 DAYS. 05/29/18 21:15 Blood - Peripheral Venous Blood Culture - Preliminary NO GROWTH OBTAINED AFTER 48 HOURS, INCUBATION TO CONTINUE FOR 3 DAYS. -continue etrapenem -villareal - tylenol PRN fever Code(s): N39.0 - URINARY TRACT INFECTION, SITE NOT SPECIFIED Qualifiers: Urinary tract infection type: catheter-associated UTI Indwelling urinary catheter type: indwelling urethral catheter Encounter type: initial encounter Qualified Code(s): T83.511A - Infection and inflammatory reaction due to indwelling urethral catheter, initial encounter; N39.0 - Urinary tract infection , site not specified (2) SHAKIR (acute kidney injury) Assessment/Plan: - gently rehydration in light of CHF history -flomax 0.4mg daily -finasteride 5mg daily Code(s): N17.9 - ACUTE KIDNEY FAILURE, UNSPECIFIED (3) Atrial fibrillation Assessment/Plan: -c/w eliquis -f/u digoxin level -hold dig in the setting og SHAKIR Code(s): I48.91 - UNSPECIFIED ATRIAL FIBRILLATION Qualifiers: Atrial fibrillation type: chronic Qualified Code(s): I48.2 - Chronic atrial fibrillation (4) CHF (congestive heart failure) Assessment/Plan: -hold torsemide due to dehydration and SHAKIR Code(s): I50.9 - HEART FAILURE, UNSPECIFIED (5) COPD (chronic obstructive pulmonary disease) Assessment/Plan: -Nebs q8hrs -chest PT -OOB to chair as tolerated Code(s): J44.9 - CHRONIC OBSTRUCTIVE PULMONARY DISEASE, UNSPECIFIED Qualifiers: COPD type: unspecified COPD Qualified Code(s): J44.9 - Chronic obstructive pulmonary disease, unspecified Condition: Stable - Instructions Referrals: Julianna Mckeon MD [Primary Care Provider] - - Home Medications Comprehensive Discharge Medication List: Ambulatory Orders Acetaminophen [Tylenol] 325 mg PO Q6H PRN 04/03/18 Amino Acids/Protein Hydrolys [Pro-Stat Liquid] 30 ml PO BID 04/03/18 Apixaban [Eliquis] 5 mg PO DAILY 04/03/18 Ascorbic Acid [Vitamin C] 500 mg PO DAILY 04/03/18 Budesonide/Formeterol Fumarate [SYMBICORT 160/4.5mcg -] 1 inh PO BID 04/03/18 Cephalexin [Keflex] 250 mg PO Q6H 04/03/18 Cholecalciferol (Vitamin D3) [Vitamin D3] 1,000 unit PO DAILY 04/03/18 Cran/Vitc/Mannose/Fos/Bromeln [Uti-Stat Liquid] 30 ml PO TID 04/03/18 Cyanocobalamin [Vitamin B12 -] 1,000 mcg PO DAILY 04/03/18 Digoxin 125 mcg PO ASDIR 04/03/18 Digoxin 125 mcg PO ASDIR 04/03/18 Finasteride 5 mg PO DAILY 04/03/18 Folic Acid 1 mg PO DAILY 04/03/18 Gabapentin 200 mg PO TID 04/03/18 Methylphenidate HCl [Ritalin LA] 5 mg PO DAILY 04/03/18 Sarita-3 Fatty Acids [Sarita-3] 1,000 mg PO DAILY 04/03/18 Omeprazole 20 mg PO DAILY 04/03/18 Polyethylene Glycol 3350 [Miralax 119 gm Btl -] 17 gm PO DAILY 04/03/18 Potassium Citrate [Potassium Citrate ER] 10 meq PO DAILY 04/03/18 Saliva Substitute Combo No.9 [Biotene] 30 ml MM TID 04/03/18 Tamsulosin HCl [Flomax -] 0.8 mg PO DAILY 04/03/18 Zinc Sulfate 220 mg PO DAILY 04/03/18 Amino Acids/Protein Hydrolys [Prosource No Carb Liquid Pkt] 30 ml PO BID@0800, 1730 packet 04/08/18 Insulin Sliding Scale [Novolog Vial Sliding Scale -] 1 vial SQ ACHS units 04/08 Torsemide [Demadex -] 20 mg PO DAILY tablet 04/08/18 oxyCODONE HCL [Roxicodone -] 10 mg PO Q6H PRN tablet MDD 4 04/08/18 Sennosides [Senna -] 1 tab PO HS tablet 04/10/18 Sulfamethoxazole/Trimethoprim [Bactrim DS -] 1 each PO BID #10 tablet 04/10/18
--- NOTE | 2018-06-03 14:13 | PN ---
Progress Note (short form) - Note Progress Note: RENAL Pt is awake and responsive. i awakened him easily says he needs PT to walk Last Vital Signs Temp Pulse Resp BP Pulse Ox 98.4 F 89 20 104/57 L 100 06/03/18 06:00 06/03/18 06:00 06/03/18 06:00 06/03/18 06:00 06/02/18 21:00 lungs clear anteriorly cvs s1s2 rr abd soft ext +edema neuro a+o CBC, BMP 06/02/18 06:40 06/03/18 06:15 Current Medications Generic Name Dose Route Start Last Admin Trade Name Freq PRN Reason Stop Dose Admin Acetaminophen 650 mg 05/29/18 20:09 05/31/18 19:04 Tylenol - PO 650 mg Q4H PRN Administration temp > 101 Acetaminophen 325 mg 05/29/18 21:21 06/03/18 09:29 Tylenol - PO 325 mg Q6H PRN Administration PAIN Albuterol Sulfate 1 amp 05/30/18 08:00 06/03/18 12:39 Ventolin 0.083% Nebulizer Soln - NEB 1 amp RQID ARVIND Administration Amino Acids 30 ml 05/30/18 08:00 06/03/18 09:28 Prosource No Carb Liquid Pkt PO 30 ml BID@0800,1730 ARVIND Administration Apixaban 5 mg 05/30/18 10:00 06/03/18 09:26 Eliquis - PO 5 mg DAILY ARVIND Administration Ascorbic Acid 500 mg 05/30/18 10:00 06/03/18 09:28 Vitamin C - PO 500 mg DAILY ARVIND Administration Cholecalciferol 1,000 unit 05/30/18 10:00 06/03/18 09:28 Vitamin D3 - PO 1,000 unit DAILY ARVIND Administration Docusate Sodium 100 mg 05/29/18 20:09 Colace - PO BID PRN CONSTIPATION Duloxetine HCl 30 mg 05/31/18 15:45 06/03/18 09:26 Cymbalta - PO 30 mg DAILY ARVIND Administration Finasteride 5 mg 05/30/18 10:00 06/03/18 09:28 Proscar - PO 5 mg DAILY ARVIND Administration Folic Acid 1 mg 05/30/18 10:00 06/03/18 09:26 Folic Acid - PO 1 mg DAILY ARVIND Administration IV Flush 8 ml 06/02/18 11:34 Picc Line Flush IVPUSH PRN PRN Protocol Ertapenem 0.5 gm/ Sodium 50 mls @ 100 mls/hr 05/30/18 17:00 06/03/18 12:22 Chloride IVPB 100 mls/hr DAILY ARVIND Administration Protocol Insulin Aspart 1 vial 05/30/18 07:00 06/03/18 12:32 Novolog Vial Sliding Scale - SQ Not Given ACHS ARVIND Protocol Ipratropium [place] 1 amp 05/30/18 08:00 06/03/18 12:39 Atrovent 0.02% Nebulizer - NEB 1 amp RQID ARVIND Administration Lidocaine 2 patch 06/01/18 14:00 06/03/18 09:26 Lidoderm Patch - TP 2 patch DAILY ARVIND Administration Miscellaneous 1 each 06/01/18 22:00 06/02/18 21:45 Lidoderm Patch Removal MC 1 each DAILY@2200 ARVIND Administration Multivitamins/Minerals/Vitamin C 1 tab 06/01/18 10:00 06/03/18 09:28 Tab-A-Vit - PO 1 tab DAILY ARVIND Administration Kijmd-6-Tccy Ethyl Esters 1 gm 05/30/18 10:00 06/03/18 09:26 Lovaza - PO 1 gm DAILY ARVIND Administration Ondansetron HCl 4 mg 06/02/18 13:14 06/02/18 13:30 Zofran Injection IVPUSH 4 mg Q8H PRN Administration NAUSEA AND/OR VOMITING Oxycodone HCl 5 mg 06/01/18 08:52 06/03/18 09:26 Roxicodone - PO 5 mg Q6H PRN Administration PAIN LEVEL 4 - 6 Pantoprazole Sodium 20 mg 05/30/18 10:00 06/03/18 09:27 Protonix - PO 20 mg DAILY ARVIND Administration Polyethylene Glycol 17 gm 05/30/18 10:00 06/03/18 12:21 Miralax (For Daily Use) - PO Not Given DAILY ARVIND Senna 1 tab 05/29/18 22:00 06/02/18 21:53 Senna - PO 1 tab HS ARVIND Administration Tamsulosin HCl 0.8 mg 05/30/18 08:30 06/03/18 09:26 Flomax - PO 0.8 mg DAILY@0830 ARVIND Administration IMPRESSION 1. proteinuria- with anasarca and severe hypoalbuminemia 2. CHF 3. obstructive sleep apnea 4. obesity 5. DM 6. HTN 7. hyperlipidemia 8. SHAKIR 9. unexplained weight loss 10. UTI 11. hypomagnesemia 12 hematuria/proteinuria Plan - renal function improving -repeat ua and urine protein to creat - follow spep - weight loss workup -anca,antigbm, lizet,hep panel -if hematuria persistent needs urology eval MV
[2018-06-03] MEDS ORDERED: INSULIN (NOVOLOG) ASPART 100 UNITS/ML 10ML VIAL ONE (20:54)
[2018-06-03] MEDS: LIDOCAINE PATCH REMOVAL MC SCH (21:21)
[2018-06-03] MEDS: SENNOSIDES 8.6MG TABLET (FP) PO SCH (21:22)
[2018-06-03 22:03] LABS: URINE APPEARANCE CLOUDY; URINE BILIRUBIN NEGATIVE (<2.0 mg/dL); URINE COLOR YELLOW; URINE GLUCOSE (UA) NEGATIVE (NEGATIVE); URINE KETONE NEGATIVE (NEGATIVE); URINE LEUK ESTERASE TRACE (NEGATIVE); URINE NITRITE NEGATIVE (NEGATIVE); URINE PROTEIN 1+ (NEGATIVE); URINE UROBILINOGEN NEGATIVE mg/dL (0.2-1.0)
[2018-06-03 22:07] LABS: EPI CELLS RARE /HPF (FEW); URINE MUCUS RARE
[2018-06-03 22:56] LABS: RATIO URIN PROTEIN/URIN CREAT 1.71 MG/DL
[2018-06-04] MEDS: INSULIN SLIDING SCALE (NOVOLOG) 1 VIAL SQ SCH (06:31)
--- NOTE | 2018-06-04 08:51 | DS ---
Physical Examination Vital Signs: Vital Signs Temperature 97.9 F 06/04/18 05:00 Pulse Rate 88 06/04/18 05:00 Respiratory Rate 18 06/03/18 21:31 Blood Pressure 90/55 L 06/04/18 05:00 O2 Sat by Pulse Oximetry (%) 100 06/03/18 21:00 Cardiovascular: Yes: S1, S2 Respiratory: Yes: Regular, CTA Bilaterally Gastrointestinal: Yes: Normal Bowel Sounds, Soft. No: Tenderness Labs: CBC, BMP 06/02/18 06:40 06/03/18 06:15 Discharge Summary Reason For Visit: ACUTE KIDNEY INJURY/UTI/ATRIAL FIBRILATION Current Active Problems SHAKIR (acute kidney injury) (Acute) Atrial fibrillation (Acute) UTI (urinary tract infection) (Acute) Hospital Course: - Problems (1) UTI (urinary tract infection) Assessment/Plan: - f/u ucx Microbiology 05/29/18 20:01 Urine - Urine - Catheterized Urine Culture - Preliminary Escherichia Coli Esbl Level Vial Inspector And Tester Group D Strep Or Entero Coccus 05/29/18 20:22 Blood - Peripheral Venous Blood Culture - Preliminary NO GROWTH OBTAINED AFTER 48 HOURS, INCUBATION TO CONTINUE FOR 3 DAYS. 05/29/18 21:15 Blood - Peripheral Venous Blood Culture - Preliminary NO GROWTH OBTAINED AFTER 48 HOURS, INCUBATION TO CONTINUE FOR 3 DAYS. -continue etrapenem -villareal - tylenol PRN fever Code(s): N39.0 - URINARY TRACT INFECTION, SITE NOT SPECIFIED Qualifiers: Urinary tract infection type: catheter-associated UTI Indwelling urinary catheter type: indwelling urethral catheter Encounter type: initial encounter Qualified Code(s): T83.511A - Infection and inflammatory reaction due to indwelling urethral catheter, initial encounter; N39.0 - Urinary tract infection , site not specified (2) SHAKIR (acute kidney injury) Assessment/Plan: - gently rehydration in light of CHF history -flomax 0.4mg daily -finasteride 5mg daily Code(s): N17.9 - ACUTE KIDNEY FAILURE, UNSPECIFIED (3) Atrial fibrillation Assessment/Plan: -c/w eliquis -f/u digoxin level -hold dig in the setting og SHAKIR Code(s): I48.91 - UNSPECIFIED ATRIAL FIBRILLATION Qualifiers: Atrial fibrillation type: chronic Qualified Code(s): I48.2 - Chronic atrial fibrillation (4) CHF (congestive heart failure) Assessment/Plan: -hold torsemide due to dehydration and SHAKIR Code(s): I50.9 - HEART FAILURE, UNSPECIFIED (5) COPD (chronic obstructive pulmonary disease) Assessment/Plan: -Nebs q8hrs -chest PT -OOB to chair as tolerated Code(s): J44.9 - CHRONIC OBSTRUCTIVE PULMONARY DISEASE, UNSPECIFIED Qualifiers: COPD type: unspecified COPD Qualified Code(s): J44.9 - Chronic obstructive pulmonary disease, unspecified Condition: Stable - Instructions Referrals: Julianna Mckeon MD [Primary Care Provider] - Disposition: SNF FACILITY - Home Medications Comprehensive Discharge Medication List: Ambulatory Orders Acetaminophen [Tylenol] 325 mg PO Q6H PRN 04/03/18 Amino Acids/Protein Hydrolys [Pro-Stat Sugar Free Liquid] 30 ml PO BID 04/03/18 Apixaban [Eliquis] 5 mg PO DAILY 04/03/18 Ascorbic Acid [Vitamin C] 500 mg PO DAILY 04/03/18 Budesonide/Formeterol Fumarate [SYMBICORT 160/4.5mcg -] 1 inh PO BID 04/03/18 Cholecalciferol (Vitamin D3) [Vitamin D3] 1,000 unit PO DAILY 04/03/18 Cran/Vitc/Mannose/Fos/Bromeln [Uti-Stat Liquid] 30 ml PO TID 04/03/18 Cyanocobalamin [Vitamin B12 -] 1,000 mcg PO DAILY 04/03/18 Finasteride 5 mg PO DAILY 04/03/18 Folic Acid 1 mg PO DAILY 04/03/18 Gabapentin 200 mg PO TID 04/03/18 Methylphenidate HCl [Ritalin LA] 5 mg PO DAILY 04/03/18 Omeprazole 20 mg PO DAILY 04/03/18 Polyethylene Glycol 3350 [Miralax 119 gm Btl -] 17 gm PO DAILY 04/03/18 Potassium Citrate [Potassium Citrate ER] 10 meq PO DAILY 04/03/18 Saliva Substitute Combo No.9 [Biotene] 30 ml MM TID 04/03/18 Tamsulosin HCl [Flomax -] 0.8 mg PO DAILY 04/03/18 Zinc Sulfate 220 mg PO DAILY 04/03/18 Amino Acids/Protein Hydrolys [Prosource No Carb Liquid Pkt] 30 ml PO BID@0800, 1730 packet 04/08/18 Insulin Sliding Scale [Novolog Vial Sliding Scale -] 1 vial SQ ACHS units 04/08 oxyCODONE HCL [Roxicodone -] 10 mg PO Q6H PRN tablet MDD 4 04/08/18 Sennosides [Senna -] 1 tab PO HS tablet 04/10/18 Albuterol 0.083% Nebulizer [place]iel[place] [Ventolin 0.083% Nebulizer Soln -] 1 amp NEB RQID amp 06/03/18 Docusate Sodium [Colace -] 100 mg PO BID PRN capsule 06/03/18 Duloxetine HCl [Cymbalta -] 30 mg PO DAILY capsule. 06/03/18 Ertapenem Sodium [Invanz -] 0.5 gm IVPB DAILY vial 06/03/18 Ipratropium 0.02% Nebulizer [Atrovent 0.02% Nebulizer -] 1 amp NEB RQID amp Lidocaine 5% Patch [Lidoderm -] 2 patch TP DAILY patch 06/03/18 Picc Line Flush [Picc Line Flush -] 8 ml IVPUSH PRN PRN ml 06/03/18
[2018-06-04] MEDS ORDERED: PT OWN MED DRAWER 7, Y5N ONE (09:07)
[2018-06-04] MEDS: LIDOCAINE 5% TOPICAL PATCH TP SCH (09:23)
[2018-06-04] MEDS: AMINO ACIDS/PROTEIN HYDROLYS 30 ML LIQUID.PKT PO SCH (09:23)
[2018-06-04] MEDS: ERTAPENEM SODIUM 0.5 GM in SODIUM CHLORIDE 50 ML IVPB SCH (09:23)
[2018-06-04] MEDS: FOLIC ACID 1 MG TABLET (FP) PO SCH (09:24)
[2018-06-04] MEDS: CHOLECALCIFEROL (VITAMIN D3) 1,000 UNIT TABLET (FP) PO SCH (09:24)
[2018-06-04] MEDS: APIXABAN 5 MG TABLET PO SCH (09:24)
[2018-06-04] MEDS: DULoxetine HCL 30 MG CAPSULE.DR (FP) PO SCH (09:24)
[2018-06-04] MEDS: MULTIVITAMINS (DAILY MVI) TABLET (FP) PO SCH (09:24)
[2018-06-04] MEDS: PANTOPRAZOLE 20 MG TABLET (FP) PO SCH (09:24)
[2018-06-04] MEDS: ASCORBIC ACID 500 MG TABLET (FP) PO SCH (09:24)
[2018-06-04] MEDS: OMEGA-3 ACID ETHYL ESTERS (FATTY-ACIDS) 1 GM CAPSULE (FP) PO SCH (09:24)
[2018-06-04] MEDS: FINASTERIDE 5 MG TABLET (FP) PO SCH (09:24)
[2018-06-04] MEDS: TAMSULOSIN HCL 0.4 MG CAP PO SCH (09:24)
[2018-06-04] MEDS: POLYETHYLENE GLYCOL 3350 119 GM BTL PO SCH (09:25)
--- NOTE | 2018-06-04 10:15 | PN ---
Progress Note (short form) - Note Progress Note: RENAL Pt is awake and responsive. i awakened him easily says he has lost 154 lbs Last Vital Signs Temp Pulse Resp BP Pulse Ox 97.9 F 88 18 90/55 L 100 06/04/18 05:00 06/04/18 05:00 06/03/18 21:31 06/04/18 05:00 06/03/18 21:00 lungs clear anteriorly cvs s1s2 rr abd soft ext +edema neuro a+o gu has a villareal CBC, BMP 06/02/18 06:40 06/03/18 06:15 Current Medications Generic Name Dose Route Start Last Admin Trade Name Freq PRN Reason Stop Dose Admin Acetaminophen 650 mg 05/29/18 20:09 05/31/18 19:04 Tylenol - PO 650 mg Q4H PRN Administration temp > 101 Acetaminophen 325 mg 05/29/18 21:21 06/03/18 21:28 Tylenol - PO 325 mg Q6H PRN Administration PAIN Amino Acids 30 ml 05/30/18 08:00 06/04/18 09:23 Prosource No Carb Liquid Pkt PO 30 ml BID@0800,1730 ARVIND Administration Apixaban 5 mg 05/30/18 10:00 06/04/18 09:24 Eliquis - PO 5 mg DAILY ARVIND Administration Ascorbic Acid 500 mg 05/30/18 10:00 06/04/18 09:24 Vitamin C - PO 500 mg DAILY ARVIND Administration Cholecalciferol 1,000 unit 05/30/18 10:00 06/04/18 09:24 Vitamin D3 - PO 1,000 unit DAILY ARVIND Administration Docusate Sodium 100 mg 05/29/18 20:09 Colace - PO BID PRN CONSTIPATION Duloxetine HCl 30 mg 05/31/18 15:45 06/04/18 09:24 Cymbalta - PO 30 mg DAILY ARVIND Administration Finasteride 5 mg 05/30/18 10:00 06/04/18 09:24 Proscar - PO 5 mg DAILY ARVIND Administration Folic Acid 1 mg 05/30/18 10:00 06/04/18 09:24 Folic Acid - PO 1 mg DAILY ARVIND Administration IV Flush 8 ml 06/02/18 11:34 Picc Line Flush IVPUSH PRN PRN Protocol Ertapenem 0.5 gm/ Sodium 50 mls @ 100 mls/hr 05/30/18 17:00 06/04/18 09:23 Chloride IVPB 100 mls/hr DAILY ARVIND Administration Protocol Insulin Aspart 1 vial 05/30/18 07:00 06/04/18 06:31 Novolog Vial Sliding Scale - SQ Not Given ACHS ARVIND Protocol Lidocaine 2 patch 06/01/18 14:00 06/04/18 09:23 Lidoderm Patch - TP 2 patch DAILY ARVIND Administration Miscellaneous 1 each 06/01/18 22:00 06/03/18 21:21 Lidoderm Patch Removal MC 1 each DAILY@2200 ARVIND Administration Multivitamins/Minerals/Vitamin C 1 tab 06/01/18 10:00 06/04/18 09:24 Tab-A-Vit - PO 1 tab DAILY ARVIND Administration Xwneh-3-Zbku Ethyl Esters 1 gm 05/30/18 10:00 06/04/18 09:24 Lovaza - PO 1 gm DAILY ARVIND Administration Ondansetron HCl 4 mg 06/02/18 13:14 06/02/18 13:30 Zofran Injection IVPUSH 4 mg Q8H PRN Administration NAUSEA AND/OR VOMITING Pantoprazole Sodium 20 mg 05/30/18 10:00 06/04/18 09:24 Protonix - PO 20 mg DAILY ARVIND Administration Polyethylene Glycol 17 gm 05/30/18 10:00 06/04/18 09:25 Miralax (For Daily Use) - PO Not Given DAILY ARVIND Senna 1 tab 05/29/18 22:00 06/03/18 21:22 Senna - PO 1 tab HS ARVIND Administration Tamsulosin HCl 0.8 mg 05/30/18 08:30 06/04/18 09:24 Flomax - PO 0.8 mg DAILY@0830 ARVIND Administration IMPRESSION 1. proteinuria- with anasarca and severe hypoalbuminemia. Has high globulins, subnephrotic proteinuria and hematuria 2. CHF 3. obstructive sleep apnea 4. obesity 5. DM 6. HTN 7. hyperlipidemia 8. SHAKIR 9. unexplained weight loss 10. UTI 11. hypomagnesemia 12 hematuria/proteinuria- may be worsened by uti Plan -await work up - follow spep - weight loss workup -anca,antigbm, lizet,hep panel -if hematuria persistent needs urology eval MV
[2018-06-04 11:21] VITALS: BP 96/57; PULSE 87; TEMP 98.3
[2018-06-06 10:14] LABS: ANTIGLOMERULAR BASEMENT MEN.AB 47 units (0-20)
[2018-06-06 16:22] LABS: ATYPICAL pANCA <1:20 titer (Neg:<1:20); C-ANCA <1:20 titer (Neg:<1:20); P-ANCA <1:20 titer (Neg:<1:20)
--- NOTE | 2018-06-07 17:07 | PN ---
Progress Note (short form) - Note Progress Note: ADDENDUM DIAGNOSIS: SEVERE MALNUTRITION Problem List - Problems (1) SHAKIR (acute kidney injury) Code(s): N17.9 - ACUTE KIDNEY FAILURE, UNSPECIFIED (2) Atrial fibrillation Code(s): I48.91 - UNSPECIFIED ATRIAL FIBRILLATION Qualifiers: Atrial fibrillation type: chronic Qualified Code(s): I48.2 - Chronic atrial fibrillation (3) UTI (urinary tract infection) Code(s): N39.0 - URINARY TRACT INFECTION, SITE NOT SPECIFIED Qualifiers: Urinary tract infection type: catheter-associated UTI Indwelling urinary catheter type: indwelling urethral catheter Encounter type: initial encounter Qualified Code(s): T83.511A - Infection and inflammatory reaction due to indwelling urethral catheter, initial encounter; N39.0 - Urinary tract infection , site not specified (4) Acute CHF Code(s): I50.9 - HEART FAILURE, UNSPECIFIED (5) Acute bronchitis Code(s): J20.9 - ACUTE BRONCHITIS, UNSPECIFIED Qualifiers: Bronchitis organism: unspecified organism Qualified Code(s): J20.9 - Acute bronchitis, unspecified (6) Acute bronchitis with COPD Code(s): J44.0 - CHRONIC OBSTRUCTIVE PULMON DISEASE W ACUTE LOWER RESP INFCT (7) Dyspnea Code(s): R06.00 - DYSPNEA, UNSPECIFIED Qualifiers: Dyspnea type: shortness of breath Qualified Code(s): R06.02 - Shortness of breath (8) Sleep apnea Code(s): G47.30 - SLEEP APNEA, UNSPECIFIED (9) Type 2 diabetes mellitus with diabetic neuropathy Code(s): E11.40 - TYPE 2 DIABETES MELLITUS WITH DIABETIC NEUROPATHY, UNSP
== END 2018-06-04 10:56 | DRG 698 ==
LOC: JER 16:14 → JERBED 20:15 → J8W 05-30 05:58
PROVIDERS: ADMIT Family Medicine; ATTEND Family Medicine
PROC: 02HV33Z Insertion of Infusion Device into Superior Vena Cava, Percutaneous Approach (ICD-10-PCS; principal; 2018-06-02)
PROC: B548ZZA Ultrasonography of Superior Vena Cava, Guidance (ICD-10-PCS; 2018-06-02)
DX: T83.511A Infection and inflammatory reaction due to indwelling urethral catheter, initial encounter (principal); G92 Toxic encephalopathy; E43 Unspecified severe protein-calorie malnutrition; N17.9 Acute kidney failure, unspecified; I13.0 Hypertensive heart and chronic kidney disease with heart failure and stage 1 through stage 4 chronic kidney disease, or unspecified chronic kidney disease; N13.30 Unspecified hydronephrosis; N39.0 Urinary tract infection, site not specified; I25.10 Atherosclerotic heart disease of native coronary artery without angina pectoris; J44.9 Chronic obstructive pulmonary disease, unspecified; E78.5 Hyperlipidemia, unspecified; Z79.4 Long term (current) use of insulin; Z99.81 Dependence on supplemental oxygen; I27.20 Pulmonary hypertension, unspecified; Z79.01 Long term (current) use of anticoagulants; N40.0 Benign prostatic hyperplasia without lower urinary tract symptoms; I11.0 Hypertensive heart disease with heart failure; I50.9 Heart failure, unspecified; G47.30 Sleep apnea, unspecified; K21.9 Gastro-esophageal reflux disease without esophagitis; G47.33 Obstructive sleep apnea (adult) (pediatric); N18.9 Chronic kidney disease, unspecified; E11.22 Type 2 diabetes mellitus with diabetic chronic kidney disease; K76.0 Fatty (change of) liver, not elsewhere classified; E86.0 Dehydration; E66.01 Morbid (severe) obesity due to excess calories; I48.2 Chronic atrial fibrillation; Y84.6 Urinary catheterization as the cause of abnormal reaction of the patient, or of later complication, without mention of misadventure at the time of the procedure; E83.42 Hypomagnesemia; E11.40 Type 2 diabetes mellitus with diabetic neuropathy, unspecified; E87.6 Hypokalemia; D64.9 Anemia, unspecified; R31.9 Hematuria, unspecified
CPT/HCPCS: 36415; 36558; 36600; 70450-TC; 71045-TC-FY; 74018-TC-FY; 76775-TC; 76856-TC; 77001-TC-FY; 80053; 80162; 81003; 81015; 82272; 82375; 82550; 82570; 82803; 82962; 83050; 83516; 83520; 83540; 83605; 83735; 84100; 84155; 84156; 84165; 84484; 85025; 85027; 85610; 86038; 86256; 87040; 87086; 87186; 93005; 93010; 93306-TC; 94640; 97162-GP; 99283-25; C1751; J7030